=== PATIENT | male | born 1960 | race African-American/Black ===

== ENCOUNTER 2021-11-05 22:04 | Inpatient (IN) | payer OTHER, SELFPAY ==
--- NOTE | ~2021-11-05 | CT_ITS ---
EXAMINATION: CT HEAD WITHOUT CONTRAST CLINICAL INFORMATION: Purulent right ear. Pain. Question bone involvement. COMPARISON: None TECHNIQUE: Contiguous axial imaging was performed from the skull base to vertex without intravenous administration of contrast. This CT examination was performed using dose optimization techniques as appropriate, variously including the following: *Automated exposure control *Adjustment of mA and/or kV according to patient size (this includes techniques or standardized protocols for targeted exams where dose is matched to indication/reason for exam; i.e. extremities or head) *Use of iterative reconstruction technique DLP: 751 mGy-cm FINDINGS: There is no evidence of acute intracranial hemorrhage or territorial infarction. No abnormal mass effect or midline shift is seen. [place] to white matter differentiation is well preserved. No extra-axial fluid collections are identified. The ventricles are normal in size. There is no abnormal attenuation within the brain parenchyma. There is skin thickening and subcutaneous edema involving the right auricle, with mild surrounding fat stranding. No drainable collection. Mastoid air cells are clear. No cortical destruction to suggest osteomyelitis. No evidence of mastoiditis. Middle ear cavities are clear. Cerumen present within the external auditory canal on the right. Mild bilateral maxillary sinus mucosal thickening. Remaining paranasal sinuses are clear. Orbits and globes unremarkable. CT/CT head/brain wo con IMPRESSION: * No acute intracranial pathology. * Skin thickening and inflammation of the right auricle and external auditory canal. * No evidence of mastoiditis or osteomyelitis. * No drainable collection.
--- NOTE | ~2021-11-05 | XR_ITS ---
EXAMINATION: XR CHEST CLINICAL INFORMATION: Shortness of breath COMPARISON: None TECHNIQUE: Frontal view of the chest was obtained. FINDINGS: Findings suggest some patchy airspace disease in the right mid to lower lung zone. Subtle infiltrate here would need to be considered. Left lung is grossly clear. The cardiac silhouette is within normal limits. The hilar structures are mildly prominent. Indistinct. This may indicate central airways disease. XR/XR chest 1V IMPRESSION: Vague opacities in the right mid to lower lung zone. Infiltrates need to be considered here. The hilar structures are indistinct. The right hilum appears prominent. This may be sequela central airways disease. Adenopathy cannot be excluded which may be reactive. I would in the least recommend follow-up study short interval PA and lateral films in 4-6 weeks for continued evaluation to assess for resolution and establish this patient's baseline
[2021-11-05 22:14] LABS: Glucose, Whole Blood 319 mg/dL (60-115)
[2021-11-05 22:28] VITALS: BP 108/67; PULSE 90; RESP 19; TEMP 36.9; O2SAT 98; BMI 25.7
--- NOTE | 2021-11-05 22:34 | ECG_ITS ---
Test Reason : SOB Blood Pressure : / mmHG Vent. Rate : 084 BPM Atrial Rate : 084 BPM P-R Int : 160 ms QRS Dur : 076 ms QT Int : 394 ms P-R-T Axes : 080 -68 -02 degrees QTc Int : 465 ms Normal sinus rhythm with sinus arrhythmia Left axis deviation Nonspecific T wave abnormality Prolonged QT Abnormal ECG No previous ECGs available Referred By: Daxa Hendrix Electronically Signed By:FABRICIO VIERA MD
--- NOTE | 2021-11-05 22:35 | ED_ITS ---
HPI - General Adult General Chief complaint: General Medical Stated complaint: hyperglycemia Time Seen by Provider: 11/05/21 22:09 Source: patient Mode of arrival: EMS History of Present Illness HPI narrative: 61-year-old male with history of CHF, diabetes who is brought in for elevated glucose levels from [facility]. As per EMS patient reportedly has not had insulin for 3 days due to insurance issues. On speaking with the patient he denies any fevers, chills and denies any difficulty with breathing, new cough/sore throat and denies any nausea, vomiting, abdominal pain. Related Data Home Medications Medication Instructions Recorded Confirmed acetaminophen 325 mg tablet 2 tab PO TID PRN 11/06/21 11/06/21 atorvastatin 40 mg tablet 1 tab PO QAM 11/06/21 11/06/21 furosemide 40 mg tablet 1 tab PO BID 11/06/21 11/06/21 haloperidol 10 mg tablet 1 tab PO BID 11/06/21 11/06/21 metformin 500 mg tablet 1 tab PO BID 11/06/21 11/06/21 pantoprazole 40 mg tablet,delayed 1 tab PO DAILY 11/06/21 11/06/21 release sitagliptin 100 mg tablet (Januvia) 1 tab PO DAILY 11/06/21 11/06/21 Allergies Allergy/AdvReac Type Severity Reaction Status Date / Time No Known Allergies Allergy Verified 11/05/21 22:25 Review of Systems Review of Systems: Pertinent positives and negatives as stated in HPI 10 point review of systems is otherwise negative. PMFSH Past Medical History Source: nursing notes reviewed Medical History Diabetes Social History Social History Advance Directives: No Physical Exam ED Vital Signs: Vital Signs - 24 hr 11/05/21 22:28 Temperature 98.5 F Pulse Rate 90 Respiratory Rate 19 Blood Pressure 108/67 Pulse Oximetry 98 BMI result Body Mass Index 25.7 VITAL SIGNS: Reviewed. GENERAL: Well developed, well nourished, in no acute distress. HEAD: Normocephalic/atraumatic EYES: PERRLA, EOMI EARS: LEFT Ext canals without abnormality but right external ear with significant purulence drainage from tragus and wrapping around to the pinnae and obvious involvement of the external canal with obvious edema and purulence noted within the canal, left TM non-bulging and non-erythematous, but right TM not visualized due to pain NOSE: Nares patent bilateral OROPHARYNX: no oral lesions noted, posterior pharynx clear NECK: Supple, no adenopathy LUNGS: Decreased breath sounds bilaterally, tachypnea noted, mild wheeze/rales. SpO2<98> CARDIOVASCULAR: Regular rate and rhythm without noted murmurs, no JVD or lower extremity edema. ABDOMEN: Soft, non-tender, non-distended with bowel sounds. MUSCULOSKELETAL: No tenderness, deformities, or effusions noted on gross inspection. EXTREMITIES: No cyanosis, clubbing or edema. SKIN: Inspection of the skin reveals no rashes, ulcerations, jaundice, pallor, or petechiae. NEUROLOGIC: Alert and oriented x 4. Strength and sensation to light touch were grossly intact x 4. Course Course Course Narrative: 61-year-old male with history and clinical presentation consistent with elevated glucose, otitis externa, and suspect possible CHF exacerbation versus pneumonia. Review of all investigations consistent with mild CHF exacerbation for which the patient receives 60 mg of Lasix, malignant otitis externa for which the patient received Zosyn, and community-acquired pneumonia which is also covered by same antibiotic. Patient also received 1 L of IV fluids and there is improvement of patient's glucose level without evidence of DKA or HHS. I discussed this case with the inpatient hospitalist who accepts admission. Reevaluation(s) Reevaluation #1: Patient is refusing lactic acid and blood cultures. Time: 01:57 Medical Decision Making Lab Data Result diagrams: 11/05/21 22:59 11/05/21 22:59 Labs: Lab Results 11/05/21 11/05/21 11/05/21 Range/Units 22:09 22:59 22:59 WBC 6.2 (4.8-10.8) X10*3/uL RBC 4.86 (4.60-5.80) X10*6/uL Hgb 11.6 L (14.0-18.0) g/dl Hct 40.5 L (42.0-52.0) % MCV 83.3 (80.0-98.0) fL MCH 23.9 L (27.0-33.0) pg MCHC 28.6 L (31.0-36.0) g/dl RDW 23.4 H (11.0-16.0) % Plt Count 334 (160-400) X10*3/uL MPV 9.1 L (9.4-12.4) fL Immature Gran % (Auto) 0.2 (0.0-0.4) % Neut % (Auto) 58.4 (45-73) % Lymph % (Auto) 24.4 (20-40) % [place] % (Auto) 11.1 H (2-11) % Eos % (Auto) 5.3 H (0-4) % Baso % (Auto) 0.6 (0-2) % Lymph # (Auto) 1.5 (1.2-4.9) X10*3/uL [place] # (Auto) 0.7 (0.1-1.2) X10*3/uL Eos # (Auto) 0.3 (0.0-0.4) X10*3/uL Baso # (Auto) 0.0 (0.0-0.2) X10*3/uL Abs Immat Gran (auto) 0.01 (0.00-0.03) X10*3/uL Absolute Neuts (auto) 3.7 (2.0-8.3) x10*3/uL Absolute Nucleated RBC 0.000 (0.0-0.012) X10*3/uL Nucleated RBC % (auto) 0.0 (0.0-0.2) /100WBC ESR VBG pH (7.32-7.43) VBG pCO2 mmHg VBG pO2 mmHg VBG HCO3 (22-26) mmol/L VBG O2 Saturation % VBG Base Excess mmol/L Sodium 138 (135-145) mmol/L Potassium 4.5 (3.3-5.1) mmol/L Chloride 97 (96-108) mmol/L Carbon Dioxide 32 H (22-29) mmol/L Anion Gap 14 (12-20) BUN 22 H (9-16) mg/dL Creatinine 1.55 H (0.5-1.4) mg/dL Estim Creat Clear Calc 53.5 Estimated GFR 46 POC Glucose 319 H (60-115) mg/dL Random Glucose 293 H (60-115) mg/dL Calcium 8.7 (8.4-10.2) mg/dL Total Bilirubin 0.3 (0.0-1.0) mg/dL AST 11 (5-37) U/L ALT 11 (0-40) U/L Alkaline Phosphatase 77 (39-117) U/L C-Reactive Protein 4.26 H (< or = 0.50) mg/dL B-Natriuretic Peptide (<100) pg/mL Total Protein 7.2 (6.5-8.0) g/dL Albumin 3.6 (3.5-5.0) g/dL Urine Color Urine Appearance Urine pH (5.0-8.0) Ur Specific [place] (1.005-1.025) Urine Protein (NEG-TRACE) MG/DL Urine Glucose (UA) (NEG) MG/DL Urine Ketones (NEG) MG/DL Urine Blood (NEG) Urine Nitrite (NEG) Ur Leukocyte Esterase (NEG) Acetone, Qual Negative (Negative) 11/05/21 11/05/21 11/05/21 Range/Units 22:59 22:59 23:03 WBC (4.8-10.8) X10*3/uL RBC (4.60-5.80) X10*6/uL Hgb (14.0-18.0) g/dl Hct (42.0-52.0) % MCV (80.0-98.0) fL MCH (27.0-33.0) pg MCHC (31.0-36.0) g/dl RDW (11.0-16.0) % Plt Count (160-400) X10*3/uL MPV (9.4-12.4) fL Immature Gran % (Auto) (0.0-0.4) % Neut % (Auto) (45-73) % Lymph % (Auto) (20-40) % [place] % (Auto) (2-11) % Eos % (Auto) (0-4) % Baso % (Auto) (0-2) % Lymph # (Auto) (1.2-4.9) X10*3/uL [place] # (Auto) (0.1-1.2) X10*3/uL Eos # (Auto) (0.0-0.4) X10*3/uL Baso # (Auto) (0.0-0.2) X10*3/uL Abs Immat Gran (auto) (0.00-0.03) X10*3/uL Absolute Neuts (auto) (2.0-8.3) x10*3/uL Absolute Nucleated RBC (0.0-0.012) X10*3/uL Nucleated RBC % (auto) (0.0-0.2) /100WBC ESR Cancelled VBG pH 7.52 H (7.32-7.43) VBG pCO2 40 mmHg VBG pO2 130 mmHg VBG HCO3 32 H (22-26) mmol/L VBG O2 Saturation 99.0 % VBG Base Excess 9.3 mmol/L Sodium (135-145) mmol/L Potassium (3.3-5.1) mmol/L Chloride (96-108) mmol/L Carbon Dioxide (22-29) mmol/L Anion Gap (12-20) BUN (9-16) mg/dL Creatinine (0.5-1.4) mg/dL Estim Creat Clear Calc Estimated GFR POC Glucose (60-115) mg/dL Random Glucose (60-115) mg/dL Calcium (8.4-10.2) mg/dL Total Bilirubin (0.0-1.0) mg/dL AST (5-37) U/L ALT (0-40) U/L Alkaline Phosphatase (39-117) U/L C-Reactive Protein (< or = 0.50) mg/dL B-Natriuretic Peptide 241 H (<100) pg/mL Total Protein (6.5-8.0) g/dL Albumin (3.5-5.0) g/dL Urine Color Urine Appearance Urine pH (5.0-8.0) Ur Specific [place] (1.005-1.025) Urine Protein (NEG-TRACE) MG/DL Urine Glucose (UA) (NEG) MG/DL Urine Ketones (NEG) MG/DL Urine Blood (NEG) Urine Nitrite (NEG) Ur Leukocyte Esterase (NEG) Acetone, Qual (Negative) 11/06/21 11/06/21 Range/Units 00:58 01:46 WBC (4.8-10.8) X10*3/uL RBC (4.60-5.80) X10*6/uL Hgb (14.0-18.0) g/dl Hct (42.0-52.0) % MCV (80.0-98.0) fL MCH (27.0-33.0) pg MCHC (31.0-36.0) g/dl RDW (11.0-16.0) % Plt Count (160-400) X10*3/uL MPV (9.4-12.4) fL Immature Gran % (Auto) (0.0-0.4) % Neut % (Auto) (45-73) % Lymph % (Auto) (20-40) % [place] % (Auto) (2-11) % Eos % (Auto) (0-4) % Baso % (Auto) (0-2) % Lymph # (Auto) (1.2-4.9) X10*3/uL [place] # (Auto) (0.1-1.2) X10*3/uL Eos # (Auto) (0.0-0.4) X10*3/uL Baso # (Auto) (0.0-0.2) X10*3/uL Abs Immat Gran (auto) (0.00-0.03) X10*3/uL Absolute Neuts (auto) (2.0-8.3) x10*3/uL Absolute Nucleated RBC (0.0-0.012) X10*3/uL Nucleated RBC % (auto) (0.0-0.2) /100WBC ESR VBG pH (7.32-7.43) VBG pCO2 mmHg VBG pO2 mmHg VBG HCO3 (22-26) mmol/L VBG O2 Saturation % VBG Base Excess mmol/L Sodium (135-145) mmol/L Potassium (3.3-5.1) mmol/L Chloride (96-108) mmol/L Carbon Dioxide (22-29) mmol/L Anion Gap (12-20) BUN (9-16) mg/dL Creatinine (0.5-1.4) mg/dL Estim Creat Clear Calc Estimated GFR POC Glucose 259 H (60-115) mg/dL Random Glucose (60-115) mg/dL Calcium (8.4-10.2) mg/dL Total Bilirubin (0.0-1.0) mg/dL AST (5-37) U/L ALT (0-40) U/L Alkaline Phosphatase (39-117) U/L C-Reactive Protein (< or = 0.50) mg/dL B-Natriuretic Peptide (<100) pg/mL Total Protein (6.5-8.0) g/dL Albumin (3.5-5.0) g/dL Urine Color STRAW Urine Appearance CLEAR Urine pH 7.0 (5.0-8.0) Ur Specific [place] 1.010 (1.005-1.025) Urine Protein NEG (NEG-TRACE) MG/DL Urine Glucose (UA) 250 H (NEG) MG/DL Urine Ketones NEG (NEG) MG/DL Urine Blood NEG (NEG) Urine Nitrite NEG (NEG) Ur Leukocyte Esterase NEG (NEG) Acetone, Qual (Negative) Critical Care Time Critical Care Time Critical Care Time: Yes Total Critical Care Time: 30 Attestation: I personally attest to this time spent taking care of the patient. Discharge Plan Discharge Clinical Impression: CHF exacerbation, Malignant otitis externa, Pneumonia Patient Disposition: Admitted As Inpatient
[2021-11-05 23:05] LABS: MANUAL DIFF FLAG NO
[2021-11-05 23:07] LABS: Venous Blood Gas Refer to POC result
[2021-11-05 23:12] LABS: VBG Base Excess 9.3 mmol/L; VBG HCO3 32 mmol/L (22-26); VBG pCO2 40 mmHg; VBG pH 7.52 (7.32-7.43); VBG pO2 130 mmHg
[2021-11-05 23:13] LABS: Basophils Percent Auto 0.6 % (0-2); Eosinophils Absolute Auto 0.3 X10*3/uL (0.0-0.4); Eosinophils Percent Auto 5.3 % (0-4); Hematocrit 40.5 % (42.0-52.0); Hemoglobin 11.6 g/dl (14.0-18.0); Imm Gran Abs Auto 0.01 X10*3/uL (0.00-0.03); Imm Gran Pct Auto 0.2 % (0.0-0.4); Lymphocytes Absolute Auto 1.5 X10*3/uL (1.2-4.9); Lymphocytes Percent Auto 24.4 % (20-40); Mean Corpuscular HGB Conc 28.6 g/dl (31.0-36.0); Mean Corpuscular Hemoglobin 23.9 pg (27.0-33.0); Mean Corpuscular Volume 83.3 fL (80.0-98.0); Mean Platelet Volume 9.1 fL (9.4-12.4); Monocytes Absolute Auto 0.7 X10*3/uL (0.1-1.2); Monocytes Percent Auto 11.1 % (2-11); Neutrophils Absolute Auto 3.7 x10*3/uL (2.0-8.3); Neutrophils Percent Auto 58.4 % (45-73); Platelet Count 334 X10*3/uL (160-400); Red Blood Count 4.86 X10*6/uL (4.60-5.80); Red Cell Distribution Width 23.4 % (11.0-16.0); White Blood Count 6.2 X10*3/uL (4.8-10.8)
[2021-11-05 23:19] LABS: Acetone, serum QL Negative (Negative)
[2021-11-05 23:21] LABS: Alanine Aminotransferase 11 U/L (0-40); Albumin Level 3.6 g/dL (3.5-5.0); Alkaline Phosphatase 77 U/L (39-117); Anion Gap 14 (12-20); Aspartate Amino Transferase 11 U/L (5-37); Bilirubin Total 0.3 mg/dL (0.0-1.0); Blood Urea Nitrogen 22 mg/dL (9-16); Calcium 8.7 mg/dL (8.4-10.2); Carbon Dioxide 32 mmol/L (22-29); Chloride 97 mmol/L (96-108); Creatinine Clr Calc Pharmacy 53.5; Estimated Glomerular Filt Rate 46; Glucose Random 293 mg/dL (60-115); Potassium 4.5 mmol/L (3.3-5.1); Sodium 138 mmol/L (135-145); Total Protein 7.2 g/dL (6.5-8.0)
--- NOTE | 2021-11-05 23:23 | PC.NURSE ---
patient very paraonid about care in hospital. RN needs to negotiate with patient to perform every task. patient refuses to keep O2 on and school lunch monitor on. patient noted to be have dyspnea at rest, increases when aggitated
[2021-11-05 23:26] LABS: B Type Natriuretic Peptide 241 pg/mL (<100)
--- NOTE | 2021-11-06 00:02 | PC.NURSE ---
pt refused ekg at 2340, Dr Simeon garcia and RN as well
[2021-11-06] MEDS: 0.9 % Sodium Chloride 1,000 ML 999 ML IV (00:15)
[2021-11-06] MEDS: Furosemide 40 MG/4 ML VIAL IVPUSH (00:15)
[2021-11-06 01:06] LABS: Appearance Urine CLEAR; Color Urine STRAW; Glucose Urine UA 250 MG/DL (NEG); Leukocyte Esterase Urine NEG (NEG); Nitrite Urine NEG (NEG); Urine Blood NEG (NEG); Urine Ketones NEG (NEG); Urine Protein NEG (NEG-TRACE)
[2021-11-06 01:31] LABS: C Reactive Protein 4.26 mg/dL (< or = 0.50)
--- NOTE | 2021-11-06 01:42 | PC.NURSE ---
Pt refusing to allow us to draw blood cultures.
[2021-11-06] MEDS: Piperacillin Sodium/Tazobactam 4.5 GM in 0.9 % Sodium Chloride 100 ML IV (01:50)
--- NOTE | 2021-11-06 01:57 | PC.NURSE ---
Care and report at 23:00. Pt is difficult to work with. Pt initially refuses almost all procedures. Pt ambulatory to bathroom. Pt did have 2 sandwiches and small cans of soda around 1AM.
[2021-11-06 01:58] LABS: Glucose, Whole Blood 259 mg/dL (60-115)
[2021-11-06 02:34] LABS: COVID-19 Test Negative (Negative)
[2021-11-06 04:22] VITALS: BP 110/73; PULSE 101; RESP 16; TEMP 36.9; O2SAT 90
--- NOTE | 2021-11-06 04:57 | PC.NURSE ---
Pt yelling at hospitalist to get out of my room, I know you from [facility], why are you following me here. Pt under the impression that he is going home, only here for his elevated blood glucose level. Hospitalist made 2-3 attempts to encourage patient to stay, especially with the infection to his right ear.
--- NOTE | 2021-11-06 05:24 | PM.IMHP ---
History of Present Illness Date of Service: 11/06/21 Chief Complaint: Hyperglycemia 61-year-old male with a past medical history of hyperlipidemia, diabetes, CHF, schizophrenia present from the [facility] with a chief complaint of high blood sugars. Patient refused to talk to me, most of the history obtained from the records and staff. Reportedly patient was sent from the [facility] after he was noted to have high blood sugar levels. Patient denied any chest pain palpitations lightheadedness dizziness fever chills cough, urinary symptoms to the ER staff. Reported he has tenderness in his right ear; Review of all other systems is limited ER team noted that patient had right year findings consistent with otitis externa, tender on palpation, noted pus-like discharge; CT head was done which showed no intracranial process, no evidence of mastoiditis. Patient was given Zosyn. On presentation noted to have blood glucose levels and 300s; also initially concern for CHF-patient was given Lasix. Admitted for further management [facility] Medical History (Updated 01/12/22 @ 19:19 by Kumar Gomez MD) Acute dyspnea Acute respiratory failure Asthma exacerbation CHF (congestive heart failure) Diabetes Hypoxia Malignant otitis externa Pneumonia Social History Household Members: Other Housing: Other Housing Other:: penitentiary Do you presently have visiting nurse or other home services: No Patient Tobacco Use Status: Former Tobacco user Quit Date: 12/07/2021 Tobacco use type: Cigarette Smoked in Last 30 Days: No Patient Interested in Nicotine Replacement: No Patient Given Instructions on How to Stop Smoking: No Second Hand Smoke Exposure: No Use of substances other than those prescribed or required for medical reasons: No Substance Use Type: Former Substance User Currently Displaying Signs/Symptoms of Drug Intoxication Withdrawal: No Have you been hit, kicked, punched, or otherwise hurt by someone within the past year? If so, by whom?: No Do you feel safe in your current relationship?: No Current Relationship Is there a partner from a previous relationship who is making you feel unsafe now?: No Are you made to feel afraid or neglected: No Advance Directives: No Advance Directives Information Provided: No Do you have thoughts of harming others: None Do you have a plan to hurt others: No Plan Recently lost weight without trying: No How much weight loss: Not applicable Eating poorly because of decreased appetite: No Nutrition screen score: 0 Nutrition Risks: No Nutritional Risk Poor oral hygiene: No service: No Current occupational status: disabled Meds Allergies Allergy/AdvReac Type Severity Reaction Status Date / Time No Known Allergies Allergy Verified 11/05/21 22:25 Active Medications: Current Medications Pharmacy Consult (Consult Rx Perform Med Rec) 1 each MISCELLANE ONCE PRN PRN Reason: Consult order Home Medications Medication Instructions Recorded Confirmed Last Taken Type atorvastatin 40 mg tablet 1 tab PO DAILY 11/06/21 01/09/22 01/09/22 History haloperidol 10 mg tablet 1 tab PO BID 11/06/21 01/09/22 01/09/22 History pantoprazole 40 mg tablet,delayed 1 tab PO DAILY 11/06/21 01/09/22 01/09/22 History release sitagliptin 100 mg tablet (Januvia) 1 tab PO DAILY 11/06/21 01/09/22 01/09/22 History divalproex 250 mg tablet,extended 250 mg PO DAILY@1700 12/12/21 01/09/22 01/08/22 History release 24 hr divalproex 250 mg tablet,extended 500 mg PO DAILY 12/12/21 01/09/22 01/09/22 History release 24 hr ferrous sulfate 325 mg (65 mg 1 tab PO BID 12/12/21 01/09/22 01/09/22 History iron) tablet,delayed release fluticasone propionate 50 1 spray intranasal BID 12/12/21 01/09/22 01/09/22 History mcg/actuation nasal spray,suspension haloperidol 5 mg tablet 1 tab PO DAILY@1700 12/12/21 01/09/22 01/08/22 History insulin aspart U-100 100 unit/mL 0 sliding scale dose subcut BID 12/12/21 01/09/22 01/09/22 History (3 mL) subcutaneous pen (Novolog hyperglycemia Flexpen U-100 Insulin aspart) lorazepam 1 mg tablet 1 tab PO DAILY PRN Anxiety 12/12/21 01/09/22 01/08/22 History metformin 500 mg tablet 1 tab PO BIDWM 01/09/22 01/09/22 01/09/22 History Physical Exam Vital Signs and Narrative: Vital Signs: Last Vital Signs Temp 98.5 F 11/06/21 04:22 Pulse 101 H 11/06/21 04:22 Resp 16 11/06/21 04:22 BP 110/73 11/06/21 04:22 Pulse Ox 90 L 11/06/21 04:22 Oxygen Flow Rate 2 11/05/21 22:28 BMI result Body Mass Index 25.7 Patient refused examination Gen: Appears be in no acute distress HEENT: NCAT, Moist mucosa. External ear noted to have serosanguineous discharge. Pulmonary: Breathing comfortably on room air Neuro: Alert and awake. Moves all extremities equally Results Labs CBC and Chem 7: 11/07/21 14:10 11/07/21 14:10 Labs: Laboratory Results - last 24 hr 11/05/21 11/05/21 11/05/21 22:09 22:59 22:59 MCV 83.3 MCH 23.9 L MCHC 28.6 L RDW 23.4 H Plt Count 334 MPV 9.1 L Immature Gran % (Auto) 0.2 Neut % (Auto) 58.4 Lymph % (Auto) 24.4 [place] % (Auto) 11.1 H Eos % (Auto) 5.3 H Baso % (Auto) 0.6 Lymph # (Auto) 1.5 [place] # (Auto) 0.7 Eos # (Auto) 0.3 Baso # (Auto) 0.0 Abs Immat Gran (auto) 0.01 Absolute Neuts (auto) 3.7 Absolute Nucleated RBC 0.000 Nucleated RBC % (auto) 0.0 ESR VBG pH VBG pCO2 VBG pO2 VBG HCO3 VBG O2 Saturation VBG Base Excess Anion Gap 14 Estim Creat Clear Calc 53.5 Estimated GFR 46 POC Glucose 319 H Random Glucose 293 H Calcium 8.7 Total Bilirubin 0.3 AST 11 ALT 11 Alkaline Phosphatase 77 C-Reactive Protein 4.26 H B-Natriuretic Peptide Total Protein 7.2 Albumin 3.6 Urine Color Urine Appearance Urine pH Ur Specific [place] Urine Protein Urine Glucose (UA) Urine Ketones Urine Blood Urine Nitrite Ur Leukocyte Esterase Acetone, Qual Negative COVID-19 (TOMER) COVID-19 Clin Com 11/05/21 11/05/21 11/05/21 22:59 22:59 23:03 MCV MCH MCHC RDW Plt Count MPV Immature Gran % (Auto) Neut % (Auto) Lymph % (Auto) [place] % (Auto) Eos % (Auto) Baso % (Auto) Lymph # (Auto) [place] # (Auto) Eos # (Auto) Baso # (Auto) Abs Immat Gran (auto) Absolute Neuts (auto) Absolute Nucleated RBC Nucleated RBC % (auto) ESR Cancelled VBG pH 7.52 H VBG pCO2 40 VBG pO2 130 VBG HCO3 32 H VBG O2 Saturation 99.0 VBG Base Excess 9.3 Anion Gap Estim Creat Clear Calc Estimated GFR POC Glucose Random Glucose Calcium Total Bilirubin AST ALT Alkaline Phosphatase C-Reactive Protein B-Natriuretic Peptide 241 H Total Protein Albumin Urine Color Urine Appearance Urine pH Ur Specific [place] Urine Protein Urine Glucose (UA) Urine Ketones Urine Blood Urine Nitrite Ur Leukocyte Esterase Acetone, Qual COVID-19 (TOMER) COVID-19 [employer] Com 11/06/21 11/06/21 11/06/21 00:58 01:46 02:13 MCV MCH MCHC RDW Plt Count MPV Immature Gran % (Auto) Neut % (Auto) Lymph % (Auto) [place] % (Auto) Eos % (Auto) Baso % (Auto) Lymph # (Auto) [place] # (Auto) Eos # (Auto) Baso # (Auto) Abs Immat Gran (auto) Absolute Neuts (auto) Absolute Nucleated RBC Nucleated RBC % (auto) ESR VBG pH VBG pCO2 VBG pO2 VBG HCO3 VBG O2 Saturation VBG Base Excess Anion Gap Estim Creat Clear Calc Estimated GFR POC Glucose 259 H Random Glucose Calcium Total Bilirubin AST ALT Alkaline Phosphatase C-Reactive Protein B-Natriuretic Peptide Total Protein Albumin Urine Color STRAW Urine Appearance CLEAR Urine pH 7.0 Ur Specific [place] 1.010 Urine Protein NEG Urine Glucose (UA) 250 H Urine Ketones NEG Urine Blood NEG Urine Nitrite NEG Ur Leukocyte Esterase NEG Acetone, Qual COVID-19 (TOMER) Negative COVID-19 Clin Com See Note Imaging Radiologist's Impressions: Impressions Chest X-Ray 11/05/21 22:39 IMPRESSION: Vague opacities in the right mid to lower lung zone. Infiltrates need to be considered here. The hilar structures are indistinct. The right hilum appears prominent. This may be sequela central airways disease. Adenopathy cannot be excluded which may be reactive. I would in the least recommend follow-up study short interval PA and lateral films in 4-6 weeks for continued evaluation to assess for resolution and establish this patient's baseline Head CT 11/06/21 00:15 IMPRESSION: * No acute intracranial pathology. * Skin thickening and inflammation of the right auricle and external auditory canal. * No evidence of mastoiditis or osteomyelitis. * No drainable collection. Assessment and Plan (1) Otitis externa: Status: Acute Plan 61-year-old male with a past medical history of hyperlipidemia, diabetes, CHF, schizophrenia present from the [facility] with a chief complaint of high blood sugars. Noted to have following conditions Otitis externa: Continue Zosyn. Id consult for further recommendations. CT head showed no evidence of mastoiditis. PNA: Chest x-ray showed right middle lobe and lower lobe infiltrates. Patient on antibiotics. Diabetes/hyperglycemia: Will keep the patient on insulin sliding scale. Hold home oral hypoglycemic agents for now. History of CHF: Stable. Continue home Lasix. Renal insufficiency: Patient's creatinine on presentation was 1.5. Unknown baseline. Monitor renal function Decubitous Ulcer: present on admission. Pressure ulcer care per RN. DVT prophylaxis: Lovenox Code status: Full code Spoke to Kimi property maintenance supervisor at [facility]- [phone]. Kimi unsure if pt has guardian, mentioned will call back with more information. Quality Stroke Does the patient have a stroke diagnosis?: No VTE Prior VTE?: No VTE Risk Level:: Medical - moderate - high VTE Device Contraindication: Treatment Not Indicated VTE Drug Contraindication: N/A - Med Ordered
[2021-11-06 07:24] LABS: Glucose, Whole Blood 201 mg/dL (60-115)
[2021-11-06] MEDS: Insulin Lispro 100 UNIT/ML 3 ML VIAL SUBCUT ×4 (07:26→21:54)
[2021-11-06] MEDS: Enoxaparin Sodium 40 MG/0.4 ML SYRINGE SUBCUT (07:27)
[2021-11-06] MEDS: Omeprazole 40 MG CAPSULE.DR PO (07:27)
[2021-11-06] MEDS: 0.9 % Sodium Chloride Flush 3 ML SYRINGE IVFLUSH ×2 (07:27→18:41)
--- NOTE | 2021-11-06 07:30 | PC.NURSE ---
pt's right ear very irritated/excoriated/swollen in appearance, pt's entire coccyx area also very excoriated with some few patches of open areas pt denies pain at this time, pt keeps taking his oxygen off
[2021-11-06 07:34] VITALS: BP 102/60; PULSE 95; RESP 18; O2SAT 90
--- NOTE | 2021-11-06 09:10 | PC.NURSE ---
spoke to sara jameson the programming intern of [facility] in [place] pt only at the facility for 4 days so not much information except that there is a court appointed guardian by the name of Yajaira lynch-Marli number [phone]
[2021-11-06] MEDS: Piperacillin Sodium/Tazobactam 3.375 GM in 0.9 % Sodium Chloride 50 ML IV ×3 (10:01→23:41)
[2021-11-06] MEDS: HaloperidoL 5 MG TABLET 10 MG PO ×2 (10:04→23:40)
--- NOTE | 2021-11-06 11:59 | HO.PM.IMPN ---
Subjective Subjective Date of Service: 11/07/21 Interval History: patient is being followed for multiple issues including otitis externa, acute ulcer, acute kidney injury, elevated BNP, hyperglycemia, noted to have mild hypoxia patient offers no acute complaints at present wants to return home in [place], denies earache, denies fever, refusing to wear oxygen. Review of Systems General no headache, no dizziness no fever chills. CVS no chest pain, no palpitation. Respiratory no cough, no sob. Gastrointestinal no nausea, no vomiting, no abdominal pain Review of Systems: Yes all other systems are reviewed and are negative Physical Exam Vital Signs: Vital Signs: Last Vital Signs Temp 98.5 F 11/06/21 04: Pulse 95 11/06/21 07:34 Resp 18 11/06/21 07:34 BP 102/60 11/06/21 07:34 Pulse Ox 90 L 11/06/21 07:34 Oxygen Flow Rate 2 11/05/21 22:28 BMI result Body Mass Index 25.7 Const: Other: General awake alert, no acute distress. right ear dry scaly skin external ear with skin peeling and thick white debris in external canal Neck no JVD. CVS regular rate rhythm, Respiratory lungs coarse breath sound,no respiratory distress Gastrointestinal abdomen soft, nontender, bowel sounds audible, no guarding , no rigidity. Extremities no edema. Neuro nonfocal, moving all 4 extremity speech clear. Skin dry Stage 2 coccyx ulcer Objective Data Active Medications Acetaminophen (Acetaminophen 325 Mg Tablet) 650 mg PO Q6H PRN PRN Reason: Pain, Mild (Pain Scale 1-3) Atorvastatin Calcium (Atorvastatin Calcium 40 Mg Tablet) 40 mg PO BEDTIME [facility] Dextrose (Dextrose 50 % 25 Gm/50 Ml Vial) 25 gm IVPUSH Q15M PRN; Protocol PRN Reason: per Hypoglycemia Standing Ord. Enoxaparin Sodium (Enoxaparin Sodium 40 Mg/0.4 Ml Syringe) 40 mg SUBCUT Q24H [facility] Last Admin: 11/06/21 07:27 Dose: 40 mg Documented by: AILYN Glucose (Glucose Gel 15 Gm Gel..Gram.) 15 gm PO Q15M PRN; Protocol PRN Reason: per Hypoglycemia Standing Ord. Haloperidol (Haloperidol 5 Mg Tablet) 10 mg PO BID [facility] Last Admin: 11/06/21 10:04 Dose: 10 mg Documented by: AILYN Piperacillin Sod/Tazobactam (Sod 3.375 gm/ Sodium Chloride) 50 mls @ 100 mls/hr IV Q6H [facility] Last Infusion: 11/06/21 10:35 Dose: 0 mls/hr Documented by: AILYN Insulin Human Lispro (Insulin Lispro 100 Unit/Ml 3 Ml Vial) 0 unit SUBCUT QIDACHS [facility]; Protocol Last Admin: 11/06/21 07:26 Dose: 4 unit Documented by: AILYN Melatonin (Melatonin 3 Mg Tablet) 6 mg PO BEDTIME PRN PRN Reason: Insomnia Omeprazole (Omeprazole 40 Mg Capsule.Dr) 40 mg PO DAILY@0630 [facility] Last Admin: 11/06/21 07:27 Dose: 40 mg Documented by: AILYN Oxycodone HCl (Oxycodone Hcl Immed Release 5 Mg Tablet) 5 mg PO Q6H PRN PRN Reason: Pain, Severe (Pain Scale 7-10) Pharmacy Consult (Consult Rx Perform Med Rec) 1 each MISCELLANE ONCE PRN PRN Reason: Consult order Senna (Sennosides 8.6 Mg Tablet) 17.2 mg PO BEDTIME PRN PRN Reason: Constipation Sodium Chloride (0.9 % Sodium Chloride Flush 3 Ml Syringe) 3 ml IVFLUSH QSHIFT [facility] Last Admin: 11/06/21 07:27 Dose: 3 ml Documented by: AILYN Labs CBC & Chem 7: 11/07/21 14:10 11/07/21 14:10 Labs: Laboratory Results - last 24 hr 11/05/21 11/05/21 11/05/21 22:09 22:59 22:59 MCV 83.3 MCH 23.9 L MCHC 28.6 L RDW 23.4 H Plt Count 334 MPV 9.1 L Immature Gran % (Auto) 0.2 Neut % (Auto) 58.4 Lymph % (Auto) 24.4 [place] % (Auto) 11.1 H Eos % (Auto) 5.3 H Baso % (Auto) 0.6 Lymph # (Auto) 1.5 [place] # (Auto) 0.7 Eos # (Auto) 0.3 Baso # (Auto) 0.0 Abs Immat Gran (auto) 0.01 Absolute Neuts (auto) 3.7 Absolute Nucleated RBC 0.000 Nucleated RBC % (auto) 0.0 ESR VBG pH VBG pCO2 VBG pO2 VBG HCO3 VBG O2 Saturation VBG Base Excess Anion Gap 14 Estim Creat Clear Calc 53.5 Estimated GFR 46 POC Glucose 319 H Random Glucose 293 H Calcium 8.7 Total Bilirubin 0.3 AST 11 ALT 11 Alkaline Phosphatase 77 C-Reactive Protein 4.26 H B-Natriuretic Peptide Total Protein 7.2 Albumin 3.6 Urine Color Urine Appearance Urine pH Ur Specific [place] Urine Protein Urine Glucose (UA) Urine Ketones Urine Blood Urine Nitrite Ur Leukocyte Esterase Acetone, Qual Negative COVID-19 (TOMER) COVID-19 Tumblr 11/05/21 11/05/21 11/05/21 22:59 22:59 23:03 MCV MCH MCHC RDW Plt Count MPV Immature Gran % (Auto) Neut % (Auto) Lymph % (Auto) [place] % (Auto) Eos % (Auto) Baso % (Auto) Lymph # (Auto) [place] # (Auto) Eos # (Auto) Baso # (Auto) Abs Immat Gran (auto) Absolute Neuts (auto) Absolute Nucleated RBC Nucleated RBC % (auto) ESR Cancelled VBG pH 7.52 H VBG pCO2 40 VBG pO2 130 VBG HCO3 32 H VBG O2 Saturation 99.0 VBG Base Excess 9.3 Anion Gap Estim Creat Clear Calc Estimated GFR POC Glucose Random Glucose Calcium Total Bilirubin AST ALT Alkaline Phosphatase C-Reactive Protein B-Natriuretic Peptide 241 H Total Protein Albumin Urine Color Urine Appearance Urine pH Ur Specific [place] Urine Protein Urine Glucose (UA) Urine Ketones Urine Blood Urine Nitrite Ur Leukocyte Esterase Acetone, Qual COVID-19 (TOMER) COVID-19 Tumblr 11/06/21 11/06/21 11/06/21 00:58 01:46 02:13 MCV MCH MCHC RDW Plt Count MPV Immature Gran % (Auto) Neut % (Auto) Lymph % (Auto) [place] % (Auto) Eos % (Auto) Baso % (Auto) Lymph # (Auto) [place] # (Auto) Eos # (Auto) Baso # (Auto) Abs Immat Gran (auto) Absolute Neuts (auto) Absolute Nucleated RBC Nucleated RBC % (auto) ESR VBG pH VBG pCO2 VBG pO2 VBG HCO3 VBG O2 Saturation VBG Base Excess Anion Gap Estim Creat Clear Calc Estimated GFR POC Glucose 259 H Random Glucose Calcium Total Bilirubin AST ALT Alkaline Phosphatase C-Reactive Protein B-Natriuretic Peptide Total Protein Albumin Urine Color STRAW Urine Appearance CLEAR Urine pH 7.0 Ur Specific [place] 1.010 Urine Protein NEG Urine Glucose (UA) 250 H Urine Ketones NEG Urine Blood NEG Urine Nitrite NEG Ur Leukocyte Esterase NEG Acetone, Qual COVID-19 (TOMER) Negative COVID-19 Clin Com See Note 11/06/21 07:20 MCV MCH MCHC RDW Plt Count MPV Immature Gran % (Auto) Neut % (Auto) Lymph % (Auto) [place] % (Auto) Eos % (Auto) Baso % (Auto) Lymph # (Auto) [place] # (Auto) Eos # (Auto) Baso # (Auto) Abs Immat Gran (auto) Absolute Neuts (auto) Absolute Nucleated RBC Nucleated RBC % (auto) ESR VBG pH VBG pCO2 VBG pO2 VBG HCO3 VBG O2 Saturation VBG Base Excess Anion Gap Estim Creat Clear Calc Estimated GFR POC Glucose 201 H Random Glucose Calcium Total Bilirubin AST ALT Alkaline Phosphatase C-Reactive Protein B-Natriuretic Peptide Total Protein Albumin Urine Color Urine Appearance Urine pH Ur Specific [place] Urine Protein Urine Glucose (UA) Urine Ketones Urine Blood Urine Nitrite Ur Leukocyte Esterase Acetone, Qual COVID-19 ([facility]OMER) COVID-19 Clin Com Assessment and Plan (1) Malignant otitis externa: Status: Acute (2) Pneumonia: Status: Acute (3) Acute kidney injury: Status: Acute Plan 61-year-old male with a past medical history of hyperlipidemia, diabetes, CHF, schizophrenia present from the [facility] with a chief complaint of high blood sugars.? Noted to have following conditions Review of all investigations consistent with mild CHF exacerbation for which the patient receives 60 mg of Lasix, malignant otitis externa for which the patient received Zosyn, and community-acquired pneumonia which is also covered by same antibiotic.? Patient also received 1 L of IV fluids and there is improvement of patient's glucose level without evidence of DKA or HHS. acute right Otitis externa possible due to diabetes: head CT showed no evidence of mastoiditis , no fevers, no leukocytosis, mild tachycardia resolved on IV Zosyn day 1, will place on ear drops await ID input.? mild acute hypoxic respiratory failure likely due to pneumonia continue O2 support PNA:? Chest x-ray showed right middle lobe and lower lobe infiltrates, patient denies shortness of breath or cough. follow clinical course?, normal WBC no fevers. Diabetes/hyperglycemia:? continue insulin sliding scale, patient on Januvia and metformin at home, will resume Januvia.? History of diastolic CHF and severe pulmonary hypertension reviewed record from [facility]? patient denies shortness of breath, BNP 241, chest x-ray showed no edema, patient received 1 dose of IV Lasix 60 mg in ED. takes Lasix 40 mg b.i.d. at home will hold today's dose and follow clinical course Acute kidney injury Patient's creatinine on presentation was 1.5.? receive IV Lasix in the emergency room will hold further diuretics and monitor BMP Decubitous Ulcer/ stage II coccyx ulcer: high-protein diet, frequent position change and Pressure ulcer care per RN. Dyslipidemia continue statin Schizophrenia continue Haldol, patient chronically refuses interventions including blood draws need coaxing to take by mouth medication GERD continue PPI history of cocaine/polysubstance abuse DVT prophylaxis:? 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 patient has a guardian Yajaira (court appointed) [phone]. patient will need to inpatient hospitalization due to pneumonia/ acute renal injury requiring IV antibiotic and IV fluids. Quality Stroke Does the patient have a stroke diagnosis?: No VTE Prior VTE?: No VTE Risk Level:: Medical - moderate - high VTE Device Contraindication: Treatment Not Indicated VTE Drug Contraindication: N/A - Med Ordered
[2021-11-06 13:18] LABS: Glucose, Whole Blood 175 mg/dL (60-115)
[2021-11-06] MEDS: NeoMYCIN/Polymyxin/HC Otic Sus 10 ML DRPBTL 3 DROP EAR-RIGHT ×3 (13:32→23:41)
[2021-11-06] MEDS: SITagliptin Phosphate 100 MG TABLET PO (13:48)
--- NOTE | 2021-11-06 14:20 | MHC.CM.PN ---
met with pt in ed [facility] [phone] who reports that pt was just admitted to [facility] on thrus november 02 from [facility] and came to them with open bed sores pt active with kinga bey ..the correct address of thr retirement is [address] [facility] pt has been vax x 2 with [facility] pt has a guardian aleisha childers eric [phone] raegan asked to fax paperwork to us pts pcp is fitz earl [facility] will transport pt when dcd
[2021-11-06 14:54] VITALS: BP 98/55; PULSE 96; O2SAT 96
--- NOTE | 2021-11-06 15:53 | W.PM.IDCN ---
History of Present Illness Data of Consult Service Date: 11/06/21 Requesting physician: Christine Garza Primary Care Provider: Unknown Physician HPI Reason for consult: right ear redness,pneumonia He presents with a day of right ear redness and blood sugar elevation. He has no fever or chills previously He doesnt give good history. He comes from [facility]. Review of Systems Review of Systems: Yes all other systems are reviewed and are negative PMF Past Medical History Medical History Diabetes Family History Family history: reviewed and not pertinent Social History Social History Advance Directives: No service: No Meds Allergies Allergy/AdvReac Type Severity Reaction Status Date / Time No Known Allergies Allergy Verified 11/05/21 22:25 Active Medications: Current Medications Acetaminophen (Acetaminophen 325 Mg Tablet) 650 mg PO Q6H PRN PRN Reason: Pain, Mild (Pain Scale 1-3) Atorvastatin Calcium (Atorvastatin Calcium 40 Mg Tablet) 40 mg PO BEDTIME [facility] Dextrose (Dextrose 50 % 25 Gm/50 Ml Vial) 25 gm IVPUSH Q15M PRN; Protocol PRN Reason: per Hypoglycemia Standing Ord. Dextrose (Dextrose 50 % 25 Gm/50 Ml Syringe) 25 gm IVPUSH Q15M PRN; Protocol PRN Reason: per Hypoglycemia Standing Ord. Enoxaparin Sodium (Enoxaparin Sodium 40 Mg/0.4 Ml Syringe) 40 mg SUBCUT Q24H [facility] Last Admin: 11/06/21 07:27 Dose: 40 mg Documented by: Glucose (Glucose Gel 15 Gm Gel..Gram.) 15 gm PO Q15M PRN; Protocol PRN Reason: per Hypoglycemia Standing Ord. Glucose (Glucose Gel 15 Gm Gel..Gram.) 15 gm PO Q15M PRN; Protocol PRN Reason: per Hypoglycemia Standing Ord. Haloperidol (Haloperidol 5 Mg Tablet) 10 mg PO BID [facility] Last Admin: 11/06/21 10:04 Dose: 10 mg Documented by: Piperacillin Sod/Tazobactam (Sod 3.375 gm/ Sodium Chloride) 50 mls @ 100 mls/hr IV Q6H [facility] Last Admin: 11/06/21 14:47 Dose: 100 mls/hr Documented by: Insulin Human Lispro (Insulin Lispro 100 Unit/Ml 3 Ml Vial) 0 unit SUBCUT QIDACHS [facility]; Protocol Last Admin: 11/06/21 13:33 Dose: 2 unit Documented by: Melatonin (Melatonin 3 Mg Tablet) 6 mg PO BEDTIME PRN PRN Reason: Insomnia Neomycin/Polymyxin/Hydrocortisone (Neomycin/Polymyxin/Hc Otic Melanie 10 Ml Drpbtl) 3 drop EAR-RIGHT QID [facility] Last Admin: 11/06/21 13:32 Dose: 3 drop Documented by: Omeprazole (Omeprazole 40 Mg Capsule.Dr) 40 mg PO DAILY@0630 [facility] Last Admin: 11/06/21 07:27 Dose: 40 mg Documented by: Oxycodone HCl (Oxycodone Hcl Immed Release 5 Mg Tablet) 5 mg PO Q6H PRN PRN Reason: Pain, Severe (Pain Scale 7-10) Pharmacy Consult (Consult Rx Perform Med Rec) 1 each MISCELLANE ONCE PRN PRN Reason: Consult order Senna (Sennosides 8.6 Mg Tablet) 17.2 mg PO BEDTIME PRN PRN Reason: Constipation Sitagliptin Phosphate (Sitagliptin Phosphate 100 Mg Tablet) 100 mg PO DAILY [facility] Last Admin: 11/06/21 13:48 Dose: 100 mg Documented by: Sodium Chloride (0.9 % Sodium Chloride Flush 3 Ml Syringe) [facility] Last Admin: 11/06/21 07:27 Dose: 3 ml Documented by: Home Medications Medication Instructions Recorded Confirmed Last Taken Type acetaminophen 325 mg tablet 2 tab PO TID PRN 11/06/21 11/06/21 Unknown History atorvastatin 40 mg tablet 1 tab PO QAM 11/06/21 11/06/21 Unknown History furosemide 40 mg tablet 1 tab PO BID 11/06/21 11/06/21 Unknown History haloperidol 10 mg tablet 1 tab PO BID 11/06/21 11/06/21 Unknown History metformin 500 mg tablet 1 tab PO BID 11/06/21 11/06/21 Unknown History pantoprazole 40 mg tablet,delayed 1 tab PO DAILY 11/06/21 11/06/21 Unknown History release sitagliptin 100 mg tablet (Juan Antoniouvia) 1 tab PO DAILY 11/06/21 11/06/21 Unknown History Physical Exam Vital Signs: Vital Signs: Last Vital Signs Temp 98.5 F 11/06/21 04:22 Pulse 96 11/06/21 14:54 Resp 18 11/06/21 07:34 BP 98/55 L 11/06/21 14:54 Pulse Ox 96 11/06/21 14:54 Oxygen Flow Rate 2 11/05/21 22:28 BMI result Body Mass Index 25.7 Const: General: cooperative HEENT: Head: Yes normal to inspection Mouth: Normal oral and palatal mucosa present (right auricle redness) Resp: Effort & Inspection: normal respiratory effort Cardio: Rate: regular rate Rhythm: regular rhythm GI: Palpation (GI): Soft to palpation and nontender Results Labs CBC & Chem 7: 11/05/21 22:59 11/05/21 22:59 Labs: Short CBC 11/05/21 Range/Units 22:59 WBC 6.2 (4.8-10.8) X10*3/uL Hgb 11.6 L (14.0-18.0) g/dl Hct 40.5 L (42.0-52.0) % Plt Count 334 (160-400) X10*3/uL BMP 11/05/21 22:59 Sodium 138 Potassium 4.5 Chloride 97 Carbon Dioxide 32 H BUN 22 H Creatinine 1.55 H Calcium 8.7 Liver Function 11/05/21 Range/Units 22:59 Total Bilirubin 0.3 (0.0-1.0) mg/dL AST 11 (5-37) U/L ALT 11 (0-40) U/L Alkaline Phosphatase 77 (39-117) U/L Albumin 3.6 (3.5-5.0) g/dL Urine 11/06/21 Range/Units 00:58 Urine Color STRAW Urine Appearance CLEAR Urine pH 7.0 (5.0-8.0) Ur Specific [place] 1.010 (1.005-1.025) Urine Protein NEG (NEG-TRACE) MG/DL Urine Glucose (UA) 250 H (NEG) MG/DL Assessment and Plan (1) Malignant otitis externa: Status: Acute this is possible due to diabetes other possible etiologies are immunosuppression (2) Pneumonia: Status: Acute Plan Would continue Zosyn Await blood cultures Check HIV Possible Levaquin on discharge. Manage blood sugar
[2021-11-06 18:16] LABS: Glucose, Whole Blood 289 mg/dL (60-115)
[2021-11-06 21:45] LABS: Glucose, Whole Blood 300 mg/dL (60-115)
[2021-11-06 21:55] VITALS: PULSE 88; O2SAT 94
[2021-11-06 23:37] VITALS: BP 107/69; PULSE 90; RESP 16; TEMP 36.6; O2SAT 97
[2021-11-06] MEDS: Atorvastatin Calcium 40 MG TABLET PO (23:40)
[2021-11-07] VITALS: BP 140/84; PULSE 100; RESP 17; TEMP 36.5; O2SAT 99
[2021-11-07] MEDS: 0.9 % Sodium Chloride Flush 3 ML SYRINGE IVFLUSH ×3 (00:19→16:13)
[2021-11-07 02:54] VITALS: BMI 20.5
--- NOTE | 2021-11-07 03:14 | PC.NURSE ---
PATIENT ADMITTED TO ROOM 487 FROM ED AT 0015 WITH CELLULTIS/INFECTION TO RIGHT EXTERNAL EARLOBE AND ELEVATED BLOOD SUGARS IN ED. CXR FOUND RIGHT PNEUMONIA AND PT ARRIVED WITH IVABX IN RUNNING MODE. PT ALERT, AWAKE, AND ABLE TO AMBULATE FEW STEPS TO BED. NOTED PATIENT VERY ABRUPT WITH NORMAL CONVERSATION, UNWILLING TO ANSWER MANY ADMISSION QUESTIONS, AND UNCOOPERATIVE WITH SKIN ASSESSMENT, ASSISTANCE WITH HYGIENE, AND/OR HEALTH RELATED INFORMATION. MOST SITUATIONS JUST ASKING THE STAFF TO LET HIM BE. PT DECLINED TO REMOVE HIS OWN PANTS , BUT AFTER AWHILE HE WAS INSISTENT TO BE GIVEN TOILET PAPER AND PROCEEDED TO SATND , LOWER HIS PANTS AND ROUGHLY RUB, WIPE HIS OUTER BILAT BUTTOCKS CHEEKS. NOTED AT THAT TIME TO VISUALIZE DRY SCALY SKIN, SCATTERED OPEN AREAS, PINPOINT BLEEDING TO TOILET TISSUE, AND PREVIOUSLY APPLIED CREAM. PT DECLINED ALL ASSISTANCE, WARM WIPES, OR SKIN CARE FROM BOTH NAN AND THIS RN. SEE PHOTO DOCUMENTATION POSTED FROM ED STAFF. PT ANGRY THAT IVABX WAS NOT COMPLETE, WANTED FOOD, BUT REFUSED ALL SELECTIONS OFFERED, WANTED BEDSIDE TABLE MOVED AWAY, AND CALL PENA OFF BED BUT IN REACH. ADMISSION, BED CONTROLS, CALL PENA, SAFETY, FALL RISK, AND CAMERA IN ROOM FOR SAFETY ALL EXPLAINED TO PT. SEE ADMISSION FOR FURTHER DETAILS. RIGHT EARLOBE CONDITION CHRONIC; TENDER, EDEMATOUS, RED, BUT NO DRAINAGE AT THIS TIME. WILL CONTINUE TO MONITOR PT CLOSELY.
[2021-11-07 03:42] VITALS: BP 99/56; PULSE 84; RESP 18; O2SAT 94
[2021-11-07 08:19] LABS: Glucose, Whole Blood 190 mg/dL (60-115)
[2021-11-07] MEDS: Insulin Lispro 100 UNIT/ML 3 ML VIAL SUBCUT ×3 (08:28→20:17)
[2021-11-07] MEDS: SITagliptin Phosphate 100 MG TABLET PO (08:30)
[2021-11-07] MEDS: HaloperidoL 5 MG TABLET 10 MG PO ×2 (08:31→19:49)
[2021-11-07] MEDS: Piperacillin Sodium/Tazobactam 3.375 GM in 0.9 % Sodium Chloride 50 ML IV ×3 (08:39→19:49)
[2021-11-07 14:20] LABS: MANUAL DIFF FLAG NO
[2021-11-07 14:22] LABS: Basophils Absolute Auto 0.1 X10*3/uL (0.0-0.2); Basophils Percent Auto 0.7 % (0-2); Eosinophils Absolute Auto 0.4 X10*3/uL (0.0-0.4); Eosinophils Percent Auto 5.5 % (0-4); Hematocrit 40.6 % (42.0-52.0); Hemoglobin 11.5 g/dl (14.0-18.0); Imm Gran Abs Auto 0.02 X10*3/uL (0.00-0.03); Imm Gran Pct Auto 0.3 % (0.0-0.4); Lymphocytes Absolute Auto 1.2 X10*3/uL (1.2-4.9); Lymphocytes Percent Auto 16.6 % (20-40); Mean Corpuscular HGB Conc 28.3 g/dl (31.0-36.0); Mean Corpuscular Hemoglobin 23.6 pg (27.0-33.0); Mean Corpuscular Volume 83.4 fL (80.0-98.0); Mean Platelet Volume 9.3 fL (9.4-12.4); Monocytes Percent Auto 13.3 % (2-11); Neutrophils Absolute Auto 4.6 x10*3/uL (2.0-8.3); Neutrophils Percent Auto 63.6 % (45-73); Platelet Count 376 X10*3/uL (160-400); Red Blood Count 4.87 X10*6/uL (4.60-5.80); Red Cell Distribution Width 22.9 % (11.0-16.0); White Blood Count 7.3 X10*3/uL (4.8-10.8)
[2021-11-07 14:37] LABS: Glucose, Whole Blood 235 mg/dL (60-115)
[2021-11-07 14:38] LABS: Anion Gap 11 (12-20); Blood Urea Nitrogen 18 mg/dL (9-16); Calcium 9.3 mg/dL (8.4-10.2); Carbon Dioxide 33 mmol/L (22-29); Chloride 99 mmol/L (96-108); Creatinine Clr Calc Pharmacy 62.7; Estimated Glomerular Filt Rate > 60; Glucose Random 243 mg/dL (60-115); Potassium 4.2 mmol/L (3.3-5.1); Sodium 139 mmol/L (135-145)
[2021-11-07 14:49] LABS: B Type Natriuretic Peptide 50 pg/mL (<100)
[2021-11-07] MEDS: NeoMYCIN/Polymyxin/HC Otic Sus 10 ML DRPBTL 3 DROP EAR-RIGHT ×2 (15:20→19:54)
--- NOTE | 2021-11-07 15:23 | PC.NURSE ---
Skin assessment completed. Patient has very, dry cracked skin to right ear, bilateral buttocks, mick area and legs. There are no open areas. Sween 24 moisturizing cream applied to all areas. To be done daily.
--- NOTE | 2021-11-07 16:03 | P.PNIM_ITS ---
Subjective Subjective Date of Service: 11/07/21 Interval History: feeling better less ear discomfort, denies fever chills refuse lab draws this morning, no acute issues overnight. Review of Systems ATTENUATOR no headache, no dizziness CVS no chest pain, no palpitation GI no nausea,no vomiting. Review of Systems: Yes all other systems are reviewed and are negative Physical Exam Vital Signs: Vital Signs: Last Vital Signs Temp 97.7 F 11/07/21 00:00 Pulse 84 11/07/21 03:42 Resp 18 11/07/21 03:42 BP 99/56 L 11/07/21 03:42 Pulse Ox 94 11/07/21 03:42 Oxygen Flow Rate 2 11/05/21 22:28 BMI result Body Mass Index 20.5 Const: Other: General? awake alert, no acute distress.? right ear? dry scaly skin external ear and less white debris in external canal, no drainage Neck no JVD. CVS? regular rate rhythm, Respiratory lungs? coarse breath sound,no respiratory distress Gastrointestinal abdomen soft, nontender, bowel sounds audible, no guarding , no rigidity. Extremities no edema. Neuro nonfocal, moving all 4 extremity speech clear. Skin? dry Stage 2 coccyx ulcer Objective Data Active Medications Acetaminophen (Acetaminophen 325 Mg Tablet) 650 mg PO Q6H PRN PRN Reason: Pain, Mild (Pain Scale 1-3) Atorvastatin Calcium (Atorvastatin Calcium 40 Mg Tablet) 40 mg PO BEDTIME COUNT INCLUDES THE [facility] Last Admin: 11/06/21 23:40 Dose: 40 mg Documented by: EMELINA Dextrose (Dextrose 50 % 25 Gm/50 Ml Vial) 25 gm IVPUSH Q15M PRN; Protocol PRN Reason: per Hypoglycemia Standing Ord. Dextrose (Dextrose 50 % 25 Gm/50 Ml Syringe) 25 gm IVPUSH Q15M PRN; Protocol PRN Reason: per Hypoglycemia Standing Ord. Enoxaparin Sodium (Enoxaparin Sodium 40 Mg/0.4 Ml Syringe) 40 mg SUBCUT Q24H COUNT INCLUDES THE [facility] Last Admin: 11/07/21 06:06 Dose: Not Given Documented by: KEVIN Non-Admin Reason: Patient Refused Glucose (Glucose Gel 15 Gm Gel..Gram.) 15 gm PO Q15M PRN; Protocol PRN Reason: per Hypoglycemia Standing Ord. Glucose (Glucose Gel 15 Gm Gel..Gram.) 15 gm PO Q15M PRN; Protocol PRN Reason: per Hypoglycemia Standing Ord. Haloperidol (Haloperidol 5 Mg Tablet) 10 mg PO BID COUNT INCLUDES THE [facility] Last Admin: 11/07/21 08:31 Dose: 10 mg Documented by: SENIA Piperacillin Sod/Tazobactam (Sod 3.375 gm/ Sodium Chloride) 50 mls @ 100 mls/hr IV Q6H COUNT INCLUDES THE [facility] Last Infusion: 11/07/21 15:24 Dose: 0 mls/hr Documented by: SENIA Insulin Human Lispro (Insulin Lispro 100 Unit/Ml 3 Ml Vial) 0 unit SUBCUT QIDACHS COUNT INCLUDES THE [facility]; Protocol Last Admin: 11/07/21 12:26 Dose: Not Given Documented by: SENIA Non-Admin Reason: refused vitals + POC glucose Melatonin (Melatonin 3 Mg Tablet) 6 mg PO BEDTIME PRN PRN Reason: Insomnia Metformin HCl (Metformin Hcl 500 Mg Tablet) 500 mg PO BIDWM COUNT INCLUDES THE [facility] Neomycin/Polymyxin/Hydrocortisone (Neomycin/Polymyxin/Hc Otic Melanie 10 Ml Drpbtl) 3 drop EAR-RIGHT QID COUNT INCLUDES THE [facility] Last Admin: 11/07/21 15:20 Dose: 3 drop Documented by: SENIA Omeprazole (Omeprazole 40 Mg Capsule.Dr) 40 mg PO DAILY@0630 COUNT INCLUDES THE [facility] Last Admin: 11/07/21 06:06 Dose: Not Given Documented by: KEVIN Non-Admin Reason: Patient Refused Oxycodone HCl (Oxycodone Hcl Immed Release 5 Mg Tablet) 5 mg PO Q6H PRN PRN Reason: Pain, Severe (Pain Scale 7-10) Pharmacy Consult (Consult Rx Perform Med Rec) 1 each MISCELLANE ONCE PRN PRN Reason: Consult order Senna (Sennosides 8.6 Mg Tablet) 17.2 mg PO BEDTIME PRN PRN Reason: Constipation Sitagliptin Phosphate (Sitagliptin Phosphate 100 Mg Tablet) 100 mg PO DAILY COUNT INCLUDES THE [facility] Last Admin: 11/07/21 08:30 Dose: 100 mg Documented by: SENIA Sodium Chloride (0.9 % Sodium Chloride Flush 3 Ml Syringe) 3 ml IVFLUSH QSHIFT COUNT INCLUDES THE [facility] Last Admin: 11/07/21 08:33 Dose: 3 ml Documented by: SENIA Labs CBC & Chem 7: 11/07/21 14:10 11/07/21 14:10 Labs: Laboratory Results - last 24 hr 11/06/21 11/06/21 11/07/21 18:11 21:41 08:16 MCV MCH MCHC RDW Plt Count MPV Immature Gran % (Auto) Neut % (Auto) Lymph % (Auto) [place] % (Auto) Eos % (Auto) Baso % (Auto) Lymph # (Auto) [place] # (Auto) Eos # (Auto) Baso # (Auto) Abs Immat Gran (auto) Absolute Neuts (auto) Absolute Nucleated RBC Nucleated RBC % (auto) Anion Gap Estim Creat Clear Calc Estimated GFR POC Glucose 289 H 300 H 190 H Random Glucose Calcium B-Natriuretic Peptide 11/07/21 11/07/21 11/07/21 14:10 14:10 14:10 MCV 83.4 MCH 23.6 L MCHC 28.3 L RDW 22.9 H Plt Count 376 MPV 9.3 L Immature Gran % (Auto) 0.3 Neut % (Auto) 63.6 Lymph % (Auto) 16.6 L [place] % (Auto) 13.3 H Eos % (Auto) 5.5 H Baso % (Auto) 0.7 Lymph # (Auto) 1.2 [place] # (Auto) 1.0 Eos # (Auto) 0.4 Baso # (Auto) 0.1 Abs Immat Gran (auto) 0.02 Absolute Neuts (auto) 4.6 Absolute Nucleated RBC 0.000 Nucleated RBC % (auto) 0.0 Anion Gap 11 L Estim Creat Clear Calc 62.7 Estimated GFR > 60 POC Glucose Random Glucose 243 H Calcium 9.3 D B-Natriuretic Peptide 50 11/07/21 14:12 MCV MCH MCHC RDW Plt Count MPV Immature Gran % (Auto) Neut % (Auto) Lymph % (Auto) [place] % (Auto) Eos % (Auto) Baso % (Auto) Lymph # (Auto) [place] # (Auto) Eos # (Auto) Baso # (Auto) Abs Immat Gran (auto) Absolute Neuts (auto) Absolute Nucleated RBC Nucleated RBC % (auto) Anion Gap Estim Creat Clear Calc Estimated GFR POC Glucose 235 H Random Glucose Calcium B-Natriuretic Peptide Assessment and Plan (1) Malignant otitis externa: Status: Acute (2) Pneumonia: Status: Acute (3) Acute kidney injury: Status: Acute Plan 61-year-old male with a past medical history of hyperlipidemia, diabetes, CHF, schizophrenia present from the [facility] with a chief complaint of high blood sugars.? Noted to have following conditions Review of all investigations consistent with mild CHF exacerbation for which the patient receives 60 mg of Lasix, malignant otitis externa for which the patient received Zosyn, and community-acquired pneumonia which is also covered by same antibiotic.? Patient also received 1 L of IV fluids and there is improvement of patient's glucose level without evidence of DKA or HHS. acute right malignant Otitis externa possibly due to diabetes: head CT showed no evidence of mastoiditis , no fevers, no leukocytosis, mild tachycardia resolved on IV Zosyn day 2, continue ear drops seen by ID she recommend to check HIV, and transition to Levaquin on discharge blood cultures not drawn.? mild acute hypoxic respiratory failure likely due to pneumonia resolved finger oximetry 94% on room air PNA:? Chest x-ray showed right middle lobe and lower lobe infiltrates, patient denies shortness of breath or cough. follow clinical course?, normal WBC no fevers. Diabetes/hyperglycemia:? continue insulin sliding scale, patient on Januvia and metformin at home, will resume Januvia.? History of diastolic CHF and severe pulmonary hypertension reviewed record from [facility]? patient denies shortness of breath, BNP 241, chest x-ray showed no edema, patient received 1 dose of IV Lasix 60 mg in ED. takes Lasix 40 mg b.i.d. at home will hold due to low blood pressure and follow clinical course Acute kidney injury Patient's creatinine on presentation was 1.5, improved to baseline hold Lasix patient appears euvolemic Decubitous Ulcer/ stage II coccyx ulcer: high-protein diet, frequent position change and Pressure ulcer care per RN. Dyslipidemia continue statin Schizophrenia continue Haldol, patient chronically refuses interventions including blood draws need coaxing to take by mouth medication GERD continue PPI history of cocaine/polysubstance abuse DVT prophylaxis:? 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 patient has a guardian Yajaira (court appointed) [phone]. patient will need to inpatient hospitalization due to pneumonia/ malignant otitis externa on IV antibiotic . Quality Stroke Does the patient have a stroke diagnosis?: No VTE Prior VTE?: No VTE Risk Level:: Medical - moderate - high VTE Device Contraindication: Treatment Not Indicated VTE Drug Contraindication: N/A - Med Ordered
[2021-11-07 16:21] LABS: Glucose, Whole Blood 251 mg/dL (60-115)
[2021-11-07] MEDS: metFORMIN HCl 500 MG TABLET PO (17:21)
[2021-11-07] MEDS: Atorvastatin Calcium 40 MG TABLET PO (19:49)
[2021-11-07 20:00] VITALS: PULSE 16
[2021-11-07 20:09] LABS: Glucose, Whole Blood 223 mg/dL (60-115)
[2021-11-07 23:46] VITALS: BP 117/69; PULSE 81; RESP 17; TEMP 36.9; O2SAT 94
[2021-11-08] MEDS: 0.9 % Sodium Chloride Flush 3 ML SYRINGE IVFLUSH ×2 (02:04→11:52)
[2021-11-08] MEDS: Piperacillin Sodium/Tazobactam 3.375 GM in 0.9 % Sodium Chloride 50 ML IV (02:07)
[2021-11-08 02:48] VITALS: BP 92/54; PULSE 100; RESP 17; TEMP 36.8; O2SAT 88
[2021-11-08] MEDS: HaloperidoL 5 MG TABLET 10 MG PO (11:51)
[2021-11-08] MEDS: SITagliptin Phosphate 100 MG TABLET PO (11:52)
[2021-11-08] MEDS: levoFLOXacin 750 MG TABLET PO (11:52)
[2021-11-08] MEDS: metFORMIN HCl 500 MG TABLET PO (11:52)
[2021-11-08] MEDS: NeoMYCIN/Polymyxin/HC Otic Sus 10 ML DRPBTL 3 DROP EAR-RIGHT (11:52)
[2021-11-08 11:53] VITALS: BP 119/75; PULSE 104; RESP 24; TEMP 36.9; O2SAT 95
[2021-11-08 12:00] LABS: Glucose, Whole Blood 285 mg/dL (60-115)
--- NOTE | 2021-11-08 12:22 | MHC.CM.PN ---
IMM 11/06/21 Male 61 DX Otitis externa The patient is discharged back to [facility] today. iKmi, the hand cigar making supervisor has been notified of discharge, via phone. She provided contact info for the patients pharmacy. The pharmacy contact info has been updated in the computer. The [facility] requests standard discharge paperwork. No additional forms will be required for the DC to [facility]. [facility] staff will transport the patient at discharge. They will be in to pick him up this afternoon.
--- NOTE | 2021-11-08 12:39 | PC.NURSE ---
Patient ambulated around unit (>100 feet) with [facility] staff on room air, upon returning back to room, patient breathing normal and SpO2 95%.
--- NOTE | 2021-11-08 12:55 | P.DS_ITS ---
DS: Providers Provider Date of Service: 11/08/21 Date of admission: 11/06/21 05:21 Primary care physician: Unknown Physician Consults: 11/06/21 05:21 Consult to Infectious Diseases Routine Consulting Provider: Georgia Weeks Reason for consultation: otitis externa DS: Diagnosis Discharge Diagnosis (1) Malignant otitis externa: Status: Acute (2) Pneumonia: Status: Acute (3) Acute kidney injury: Status: Acute DS: Summary Hospital Course Hospital Course: 61-year-old male with a past medical history of hyperlipidemia, diabetes, CHF, schizophrenia present from the [facility] with a chief complaint of high blood sugars. Patient refused to talk to me, most of the history obtained from the records and staff.? Reportedly patient was sent from the [facility] after he was noted to have high blood sugar levels.? Patient denied any chest pain palpitations lightheadedness dizziness fever, chills cough, urinary symptoms to the ER staff.? Reported he has tenderness in his right ear; Review of all other systems is limited ER team noted that patient had right year findings consistent with otitis externa, tender on palpation, noted pus-like discharge; CT head was done which showed no intracranial process, no evidence of mastoiditis.? Patient was given Zosyn.? On presentation noted to have blood glucose levels and 300s; also initially concern for CHF-patient was given Lasix.? Admitted for further management hospital course 61-year-old male with a past medical history of hyperlipidemia, diabetes, CHF, schizophrenia present from the [facility] with a chief complaint of high blood sugars.? Noted to have following conditions Review of all investigations consistent with mild CHF exacerbation for which the patient receives 60 mg of Lasix, malignant otitis externa for which the patient received Zosyn, and community-acquired pneumonia which is also covered by same antibiotic.? Patient also received 1 L of IV fluids and there is improvement of patient's glucose level without evidence of DKA or HHS. acute right malignant Otitis externa possibly due to diabetes,head CT showed no evidence of mastoiditis , no fevers, no leukocytosis, patient treated with IV Zosyn and Cortisporin ear drops, with good response noted to have less redness swelling and drainage, now being discharged home on eardrops for 5 more days, and Levaquin by mouth for 12 more days, he remained afebrile mild acute hypoxic respiratory failure likely due to pneumonia? resolved finger oximetry 95% on room air after ambulating in hallway. PNA:? Chest x-ray showed right middle lobe and lower lobe infiltrates, patient denies shortness of breath or cough, continue antibiotic as above , normal WBC no fevers. Diabetes/hyperglycemia:? continue Januvia and metformin History of? diastolic CHF and severe pulmonary hypertension, chest x-ray showed no edema patient received 1 dose of IV Lasix 60 mg in the ED will resume dose of Lasix 40 mg twice daily upon discharge Acute? kidney injury creatinine on presentation was 1.5, improved to baseline. Dyslipidemia continue statin Schizophrenia continue Haldol, patient refuses interventions including blood draws need coaxing to take by mouth medication GERD continue PPI history of cocaine/polysubstance abuse, no withdrawal symptoms noted dry scaly skin continue moisturizing cream. Time Spent with Patient Time attestation: Total time spent providing and/or coordinating discharge services: Discharge coordination time: Greater than 30 minutes Quality: Safe Use of Opioids Does Pt have an Active Cancer Diagnosis on the Problem List?: No Quality: Stroke Does the patient have a stroke diagnosis?: No Physical Exam Vital Signs: Vital Signs: Last Vital Signs Temp 98.5 F 11/08/21 11:53 Pulse 104 H 11/08/21 11:53 Resp 24 H 11/08/21 11:53 BP 119/75 11/08/21 11:53 Pulse Ox 95 11/08/21 11:53 Oxygen Flow Rate 2 11/05/21 22:28 BMI result Body Mass Index 20.5 Const: Other: General? awake alert, no acute distress.? right ear?dry scaly skin external ear, less white debris in external canal, no drainage Neck no JVD. CVS? regular rate rhythm, Respiratory lungs? coarse breath sound,no respiratory distress Gastrointestinal abdomen soft, nontender, bowel sounds audible, no guarding , no rigidity. Extremities no edema. Neuro nonfocal, moving all 4 extremity speech clear. Skin? dry scaly skin DS: Data Data Completed and Pending Labs on day of discharge: Laboratory Results - last 24 hr 11/07/21 11/07/21 11/07/21 14:10 14:10 14:10 WBC 7.3 RBC 4.87 Hgb 11.5 L Hct 40.6 L MCV 83.4 MCH 23.6 L MCHC 28.3 L RDW 22.9 H Plt Count 376 MPV 9.3 L Immature Gran % (Auto) 0.3 Neut % (Auto) 63.6 Lymph % (Auto) 16.6 L [place] % (Auto) 13.3 H Eos % (Auto) 5.5 H Baso % (Auto) 0.7 Lymph # (Auto) 1.2 [place] # (Auto) 1.0 Eos # (Auto) 0.4 Baso # (Auto) 0.1 Abs Immat Gran (auto) 0.02 Absolute Neuts (auto) 4.6 Absolute Nucleated RBC 0.000 Nucleated RBC % (auto) 0.0 Sodium 139 Potassium 4.2 Chloride 99 Carbon Dioxide 33 H Anion Gap 11 L BUN 18 H Creatinine 1.17 Estim Creat Clear Calc 62.7 Estimated GFR > 60 POC Glucose Random Glucose 243 H Calcium 9.3 D B-Natriuretic Peptide 50 11/07/21 11/07/21 11/07/21 14:12 16:17 19:56 WBC RBC Hgb Hct MCV MCH MCHC RDW Plt Count MPV Immature Gran % (Auto) Neut % (Auto) Lymph % (Auto) [place] % (Auto) Eos % (Auto) Baso % (Auto) Lymph # (Auto) [place] # (Auto) Eos # (Auto) Baso # (Auto) Abs Immat Gran (auto) Absolute Neuts (auto) Absolute Nucleated RBC Nucleated RBC % (auto) Sodium Potassium Chloride Carbon Dioxide Anion Gap BUN Creatinine Estim Creat Clear Calc Estimated GFR POC Glucose 235 H 251 H 223 H Random Glucose Calcium B-Natriuretic Peptide 11/08/21 11:52 WBC RBC Hgb Hct MCV MCH MCHC RDW Plt Count MPV Immature Gran % (Auto) Neut % (Auto) Lymph % (Auto) [place] % (Auto) Eos % (Auto) Baso % (Auto) Lymph # (Auto) [place] # (Auto) Eos # (Auto) Baso # (Auto) Abs Immat Gran (auto) Absolute Neuts (auto) Absolute Nucleated RBC Nucleated RBC % (auto) Sodium Potassium Chloride Carbon Dioxide Anion Gap BUN Creatinine Estim Creat Clear Calc Estimated GFR POC Glucose 285 H Random Glucose Calcium B-Natriuretic Peptide Discharge Plan Discharge Patient Disposition: Home, Self-Care Discharge Diagnosis: right malignant otitis externa JOSEFINA pneumonia Referrals: Physician,Unknown J [Primary Care Provider] - 1 Week Discharge Medications: New [id number] 3.5-10,000-1 mg/mL-unit/mL-% Drops,Suspension 3 drp otic (ear) right QID Qty: 10 0RF levofloxacin 500 mg tablet 500 mg PO Q24H Qty: 12 0RF furosemide [Lasix] 40 mg tablet 40 mg PO BID Qty: 60 0RF Continued atorvastatin 40 mg tablet 1 tab PO QAM 0RF metformin 500 mg tablet 1 tab PO BID 0RF acetaminophen 325 mg tablet 2 tab PO TID PRN (Reason: pain) 0RF pantoprazole 40 mg tablet,delayed release (DR/EC) 1 tab PO DAILY 0RF haloperidol 10 mg tablet 1 tab PO BID 0RF Januvia 100 mg tablet 1 tab PO DAILY 0RF Discontinued furosemide 40 mg tablet 1 tab PO BID 0RF Discharge Orders: Discharge Order (Routine); Ordered 11/08/21 Ordered By: Christine Garza Diet: low fat, low cholesterol and low salt diet Activity on Discharge: As tolerated Stand Alone Forms: Patient Portal Discharge page Care Plan Goals: right malignant otitis externa use news poor in ear drops 3 drops 4 times a day for 5 more days, take Levaquin 1 tablet by mouth daily for 12 more days noted to mild kidney injury, resolved continue Lasix 40 mg twice daily as before dry scaly skin use moisturizing cream to all areas Health Concerns: hyperlipidemia/diabetes /schizophrenia /CHF Plan of Treatment: outpatient follow-up with primary care physician in 1-2 weeks Assessment: as per dc summary
== END 2021-11-08 13:30 | disposition home or self-care (01) | DRG 193 ==
LOC: HO.ED 11-06 01:57 → HO.EDOVER 11-06 05:34 → HO.IMC 11-06 23:37
PROVIDERS: Admitting Provider Hospitalist; Emergency Provider Student in an Organized Health Care Education/Training Program; PCP Internal Medicine; Visit Provider Hospitalist
DX: J18.9 Pneumonia, unspecified organism (principal); J96.01 Acute respiratory failure with hypoxia; H60.21 Malignant otitis externa, right ear; I50.32 Chronic diastolic (congestive) heart failure; N17.9 Acute kidney failure, unspecified; E11.65 Type 2 diabetes mellitus with hyperglycemia; T38.3X6A Underdosing of insulin and oral hypoglycemic [antidiabetic] drugs, initial encounter; Z91.120 Patient's intentional underdosing of medication regimen due to financial hardship; E78.5 Hyperlipidemia, unspecified; E11.69 Type 2 diabetes mellitus with other specified complication; I27.20 Pulmonary hypertension, unspecified; F14.10 Cocaine abuse, uncomplicated; K21.9 Gastro-esophageal reflux disease without esophagitis; F20.9 Schizophrenia, unspecified; L89.152 Pressure ulcer of sacral region, stage 2; F17.210 Nicotine dependence, cigarettes, uncomplicated; Z71.6 Tobacco abuse counseling; Z20.822 Contact with and (suspected) exposure to COVID-19; Z79.84 Long term (current) use of oral hypoglycemic drugs; Z79.899 Other long term (current) drug therapy
CPT/HCPCS: 36415; 70450; 71045; 80048; 80053; 81003; 82009; 82803; 82947; 83880; 85025; 86140; 87635; 93005; 96361; 96365; 96375; 99285; J1650; J1940; J2543

== ENCOUNTER 2021-12-11 17:22 | Inpatient (IN) | payer OTHER, SELFPAY ==
[2021-12-11] VITALS (7 sets, daily range): BP systolic 102–126; BP diastolic 59–72; PULSE 79–94; RESP 16–28; TEMP 36.6; O2SAT 87–100; BMI 25.0
--- NOTE | ~2021-12-11 | XR_ITS ---
EXAMINATION: XR CHEST CLINICAL INFORMATION: Dyspnea COMPARISON: Chest x-ray on 11/05/2021 TECHNIQUE: Frontal view of the chest was obtained. FINDINGS: Cardiomediastinal silhouette is normal. Mild progression of the hazy opacities in the right mid and lower lobe. No pleural effusions. No new areas of consolidation. XR/XR chest 1V IMPRESSION: Mild progression of the hazy opacities in the right mid and lower lobe. Findings may be related to pneumonia in appropriate clinical setting.
--- NOTE | ~2021-12-11 | CT_ITS ---
EXAMINATION: CT CHEST WITHOUT CONTRAST CLINICAL INFORMATION: Hypoxia, possible aspiration. COMPARISON: None TECHNIQUE: Multidetector volumetric CT imaging of the chest was done. Axial MIP volume rendering provided. Sagittal and coronal reformatted images were obtained. This CT examination was performed using dose optimization techniques as appropriate, variously including the following: *Automated exposure control *Adjustment of mA and/or kV according to patient size (this includes techniques or standardized protocols for targeted exams where dose is matched to indication/reason for exam; i.e. extremities or head) *Use of iterative reconstruction technique DLP: 332 mGy-cm FINDINGS: SENIOR DATA MINING ANALYST: Unremarkable chest exam LUNGS: The lungs are well-expanded and clear of acute pneumonic process. Minimal atelectatic changes are seen in the lingula MEDIASTINUM: The thyroid lobes are symmetric and normal. The central trachea and the bronchi widely patent. Heart size and the great vessels are normal caliber. There is no pericardial effusion. No abnormal medius lymph nodes seen. PLEURA: There is no pleural effusion. No pleural mass or thickening. AXILLA: No lymphadenopathy. UPPER ABDOMEN: Visualized liver, spleen, pancreas and bilateral adrenal glands are unremarkable. OSSEOUS STRUCTURES: No lytic or sclerotic process seen. Mild spondylosis dorsal spine. CT/CT chest wo con IMPRESSION: Expanded lungs with minimal atelectatic changes as described above. There is no aspiration pneumonia seen. Fleischner guidelines were followed.
--- NOTE | 2021-12-11 17:42 | ECG_ITS ---
Test Reason : DISPNEA Blood Pressure : / mmHG Vent. Rate : 088 BPM Atrial Rate : 088 BPM P-R Int : 176 ms QRS Dur : 072 ms QT Int : 422 ms P-R-T Axes : 079 240 -04 degrees QTc Int : 510 ms Normal sinus rhythm Right superior axis deviation Right ventricular hypertrophy T wave abnormality, consider anterior ischemia Prolonged QT Abnormal ECG When compared with ECG of 06-NOV-2021 10:24, QT has lengthened Referred By: Emiliana Escobar Electronically Signed By:FABRICIO VIERA MD
--- NOTE | 2021-12-11 17:43 | ED_ITS ---
HPI - SOB/Dyspnea General Chief Complaint: Dyspnea Stated Complaint: SOB FROM SNF PER EMS Time Seen by Provider: 12/11/21 17:43 Source: patient and old records reviewed Mode of arrival: EMS Limitations: other (poor historian) History of Present Illness HPI Narrative: 87% on RA on arrival to ED - he is a poor historian tells me I was gagging and became short of breath then c/o dyspnea MD elicited complaint: shortness of breath Pertinent past history: congestive heart failure and pneumonia Onset (ago): minute(s) Context: other (patient states I was gagging ) Timing: improved (with supplemental O2 from EMS) Severity: moderate Exacerbating factors: coughing Relieving factors: oxygen and rest Known history of: congestive heart failure and recurrent pneumonia Associated symptoms: cough and sputum production Treatment prior to arrival: oxygen Related Data Home Medications Medication Instructions Recorded Confirmed acetaminophen 325 mg tablet 2 tab PO TID PRN 11/06/21 11/06/21 atorvastatin 40 mg tablet 1 tab PO QAM 11/06/21 11/06/21 haloperidol 10 mg tablet 1 tab PO BID 11/06/21 11/06/21 metformin 500 mg tablet 1 tab PO BID 11/06/21 11/06/21 pantoprazole 40 mg tablet,delayed 1 tab PO DAILY 11/06/21 11/06/21 release sitagliptin 100 mg tablet (Januvia) 1 tab PO DAILY 11/06/21 11/06/21 Previous Rx's Medication Instructions Recorded furosemide 40 mg tablet (Lasix) 40 mg PO BID #60 tab 11/08/21 levofloxacin 500 mg tablet 500 mg PO Q24H #12 tab 11/08/21 fyscyqup-zlarkxpyx-mjlhmgxck 3.5 3 drp OTIC (EAR) RIGHT QID #10 ml 11/08/21 mg-10,000 unit/mL-1 % ear drops,susp Allergies Allergy/AdvReac Type Severity Reaction Status Date / Time No Known Allergies Allergy Verified 11/05/21 22:25 Review of Systems Review of Systems: ROS unable to be obtained due to patient is not really answering questions and is agitated with me asking him questions PMFSH Past Medical History Attestation statement: The following information was validated with the patient. Medical History CHF (congestive heart failure) Diabetes Malignant otitis externa Pneumonia Social History Social History Household Members: Unknown / Unable to assess Housing: Other Do you presently have visiting nurse or other home services: No (paperwork states was living at a [place] [facility], but only recently) Patient Tobacco Use Status: Tobacco use Unknown Tobacco use type: Cigarette Second Hand Smoke Exposure: No Use of substances other than those prescribed or required for medical reasons: Yes Substance Use Frequency: Chronic Longstanding Advance Directives: No Advance Directives Information Provided: No service: No Physical Exam Vital Signs: Vital Signs: Last Vital Signs Temp 97.8 F 12/11/21 17:37 Pulse 88 12/11/21 20:23 Resp 16 12/11/21 20:23 BP 111/72 12/11/21 20:23 Pulse Ox 98 12/11/21 20:23 BMI result Body Mass Index 25.0 Appearance: Alert. Oriented X2 (time and place). No acute distress. Eyes: Pupils equal, round and reactive to light. ENT: Pharynx normal. Neck: Normal inspection. Neck supple. CVS: Normal heart rate and rhythm. Pulses normal. Respiratory: No respiratory distress. Breath sounds very diminished he will not perform full exam 87% on RA up to 98% on 4L NC Abdomen: Soft and nontender. Skin: Skin warm and dry. Normal skin color. poor skin skin turgor. Extremities: No lower extremity edema. No calf ttp Neuro: Oriented X 2 No motor deficit. No sensory deficit. Course Course Course Narrative: empiric zosyn ordered given hx of gagging and CXR - possible aspiration signed out to Dr. Mejía patient still requires O2 - ddimer negative MDM - SOB/Dyspnea MDM Narrative Medical decision making narrative: 61 yo male with hx of CHF, DM, pneumonia, HLD here with c/o gagging then c/o shortness of breath. He is 87% on RA at this time. Will obtain basic labs, BNP, CXR for aspiration pneumonia, EKG, supplemental O2. He denies CP at this time and has no LE swelling to suggest DVT - dispo per results and findings. Lab Data Result diagrams: 12/11/21 20:38 12/11/21 20:38 Labs: Lab Results 12/11/21 12/11/21 12/11/21 Range/Units 20:05 20:38 20:38 WBC 4.2 L (4.8-10.8) X10*3/uL RBC 4.73 (4.60-5.80) X10*6/uL Hgb 11.4 L (14.0-18.0) g/dl Hct 40.1 L (42.0-52.0) % MCV 84.8 (80.0-98.0) fL MCH 24.1 L (27.0-33.0) pg MCHC 28.4 L (31.0-36.0) g/dl RDW 19.3 H (11.0-16.0) % Plt Count 438 H (160-400) X10*3/uL MPV 9.6 (9.4-12.4) fL Immature Gran % (Auto) 0.2 (0.0-0.4) % Neut % (Auto) 50.5 (45-73) % Lymph % (Auto) 33.5 (20-40) % [place] % (Auto) 12.4 H (2-11) % Eos % (Auto) 2.9 (0-4) % Baso % (Auto) 0.5 (0-2) % Lymph # (Auto) 1.4 (1.2-4.9) X10*3/uL [place] # (Auto) 0.5 (0.1-1.2) X10*3/uL Eos # (Auto) 0.1 (0.0-0.4) X10*3/uL Baso # (Auto) 0.0 (0.0-0.2) X10*3/uL Abs Immat Gran (auto) 0.01 (0.00-0.03) X10*3/uL Absolute Neuts (auto) 2.1 (2.0-8.3) x10*3/uL Absolute Nucleated RBC 0.000 (0.0-0.012) X10*3/uL Nucleated RBC % (auto) 0.0 (0.0-0.2) /100WBC PT 12.4 (9.9-13.0) SEC INR 1.1 (0.9-1.1) D-Dimer High Sensitivty NG/ML POC Glucose 186 H (60-115) mg/dL 12/11/21 Range/Units 20:38 WBC (4.8-10.8) X10*3/uL RBC (4.60-5.80) X10*6/uL Hgb (14.0-18.0) g/dl Hct (42.0-52.0) % MCV (80.0-98.0) fL MCH (27.0-33.0) pg MCHC (31.0-36.0) g/dl RDW (11.0-16.0) % Plt Count (160-400) X10*3/uL MPV (9.4-12.4) fL Immature Gran % (Auto) (0.0-0.4) % Neut % (Auto) (45-73) % Lymph % (Auto) (20-40) % [place] % (Auto) (2-11) % Eos % (Auto) (0-4) % Baso % (Auto) (0-2) % Lymph # (Auto) (1.2-4.9) X10*3/uL [place] # (Auto) (0.1-1.2) X10*3/uL Eos # (Auto) (0.0-0.4) X10*3/uL Baso # (Auto) (0.0-0.2) X10*3/uL Abs Immat Gran (auto) (0.00-0.03) X10*3/uL Absolute Neuts (auto) (2.0-8.3) x10*3/uL Absolute Nucleated RBC (0.0-0.012) X10*3/uL Nucleated RBC % (auto) (0.0-0.2) /100WBC PT (9.9-13.0) SEC INR (0.9-1.1) D-Dimer High Sensitivty 151 NG/ML POC Glucose (60-115) mg/dL ECG Data Attestation: I personally reviewed and interpreted this ECG as follows: ECG interpretation date: 12/11/21 ECG interpretation time: 19:03 Interpretation: Rate: 88 Rhythm: NSR [place]: right Normal P waves. Normal TREY. Normal QRS complex. ST T wave : no DWAINE, inverted t waves V1-V5 (old except V4 and V5 are new) qTC: prolonged prior studies: prior t wave inversions noted only new in V4-V5 from prior 11/06/2021 The study has been interpreted contemporaneously by me. . Discharge Plan Discharge Clinical Impression: Acute dyspnea, Hypoxia Patient Disposition: Still a Patient Prescriptions: No Action atorvastatin 40 mg tablet 1 tab PO QAM 0RF metformin 500 mg tablet 1 tab PO BID 0RF acetaminophen 325 mg tablet 2 tab PO TID PRN (Reason: pain) 0RF pantoprazole 40 mg tablet,delayed release (DR/EC) 1 tab PO DAILY 0RF haloperidol 10 mg tablet 1 tab PO BID 0RF Januvia 100 mg tablet 1 tab PO DAILY 0RF shvlmysb-cevppogsz-ZT 3.5-10,000-1 mg/mL-unit/mL-% Drops,Suspension 3 drp otic (ear) right QID Qty: 10 0RF levofloxacin 500 mg tablet 500 mg PO Q24H Qty: 12 0RF furosemide [Lasix] 40 mg tablet 40 mg PO BID Qty: 60 0RF
[2021-12-11 20:08] LABS: Glucose, Whole Blood 186 mg/dL (60-115)
[2021-12-11] MEDS: Piperacillin Sodium/Tazobactam 4.5 GM in 0.9 % Sodium Chloride 100 ML IV (20:10)
[2021-12-11 20:47] LABS: MANUAL DIFF FLAG NO
[2021-12-11 20:53] LABS: Basophils Percent Auto 0.5 % (0-2); Eosinophils Absolute Auto 0.1 X10*3/uL (0.0-0.4); Eosinophils Percent Auto 2.9 % (0-4); Hematocrit 40.1 % (42.0-52.0); Hemoglobin 11.4 g/dl (14.0-18.0); Imm Gran Abs Auto 0.01 X10*3/uL (0.00-0.03); Imm Gran Pct Auto 0.2 % (0.0-0.4); Lymphocytes Absolute Auto 1.4 X10*3/uL (1.2-4.9); Lymphocytes Percent Auto 33.5 % (20-40); Mean Corpuscular HGB Conc 28.4 g/dl (31.0-36.0); Mean Corpuscular Hemoglobin 24.1 pg (27.0-33.0); Mean Corpuscular Volume 84.8 fL (80.0-98.0); Mean Platelet Volume 9.6 fL (9.4-12.4); Monocytes Absolute Auto 0.5 X10*3/uL (0.1-1.2); Monocytes Percent Auto 12.4 % (2-11); Neutrophils Absolute Auto 2.1 x10*3/uL (2.0-8.3); Neutrophils Percent Auto 50.5 % (45-73); Platelet Count 438 X10*3/uL (160-400); Red Blood Count 4.73 X10*6/uL (4.60-5.80); Red Cell Distribution Width 19.3 % (11.0-16.0); White Blood Count 4.2 X10*3/uL (4.8-10.8)
[2021-12-11 20:57] LABS: INTERNATIONAL NORM RATIO 1.1 (0.9-1.1); Prothrombin Time 12.4 SEC (9.9-13.0)
[2021-12-11 20:59] LABS: D Dimer High Sensitivity 151 NG/ML
[2021-12-11 21:07] LABS: COVID-19 Test Negative (Negative)
[2021-12-11 21:07] LABS: Lactic Acid 1.5 mmol/L (0.5-2.0)
[2021-12-11 21:11] LABS: B Type Natriuretic Peptide 193 pg/mL (<100); Troponin-I High Sensitivity 8.3 ng/L (<3.5-35.0)
[2021-12-11 21:17] LABS: Alanine Aminotransferase < 6 U/L (0-40); Albumin Level 3.4 g/dL (3.5-5.0); Alkaline Phosphatase 70 U/L (39-117); Anion Gap 12 (12-20); Aspartate Amino Transferase 8 U/L (5-37); Bilirubin Direct < 0.2 mg/dL (0.0-0.5); Bilirubin Total 0.2 mg/dL (0.0-1.0); Blood Urea Nitrogen 14 mg/dL (9-16); Calcium 8.6 mg/dL (8.4-10.2); Carbon Dioxide 33 mmol/L (22-29); Chloride 100 mmol/L (96-108); Creatinine Clr Calc Pharmacy 63.1; Estimated Glomerular Filt Rate > 60; Glucose Random 203 mg/dL (60-115); Lipase 61 U/L (8-78); Magnesium 1.5 mg/dL (1.6-2.6); Potassium 4.2 mmol/L (3.3-5.1); Sodium 141 mmol/L (135-145); Total Protein 7.6 g/dL (6.5-8.0)
--- NOTE | 2021-12-11 22:15 | PC.NURSE ---
while assisting the patient from the restroom I noticed increase work of breathing and audible wheezing. Patient was placed in his stretcher and placed back on his supplemental oxygen by nasal cannula initial pulse oxyementry was 74 afeter returning from restroom oxyegen saturation gradualy returned after o2 @ 6lpm to a saturation of 91. Rn made aware of the low sat and diff breathing.
[2021-12-11 22:26] LABS: Glucose, Whole Blood 202 mg/dL (60-115)
[2021-12-11] MEDS: methylPREDNISolone Sod Succ 125 MG/2 ML VIAL IVPUSH (22:28)
[2021-12-11] MEDS: Magnesium Sulfate/H2O 2 GM/50 ML PIGGYBACK IV (22:28)
[2021-12-11] MEDS: Albuterol Sulfate (0.083%) 2.5 MG/3 ML VIAL.NEB 10 MG INHALE (22:30)
--- NOTE | 2021-12-11 23:07 | PM.IMHP ---
History of Present Illness Date of Service: 12/11/21 Chief Complaint: SOB 61-year-old male with a past medical history of hyperlipidemia, diabetes, CHF, schizophrenia; presented to the hospital with a chief complaint of shortness of breath. Patient is a poor historian. Refused to talk or give the history. Mentioning we me alone. Patient reported that he has been having shortness of breath out further couple days. Denies any chest pain or palpitations. Most of the history obtained from the records and ER staff Reportedly patient came to the hospital with chief complaint of cough, shortness of breath. Denied patient having any fevers. Denied any GI symptoms. Review of all other systems is negative except mentioned above ER course: Per ER team patient reportedly noted to have oxygen saturation 70; placed on supplemental oxygen with improvement in oxygenation; CT scan was done which showed no evidence of pulmonary embolism or aspiration pneumonia. Patient noted to be wheezing; given nebulizations and Solu-Medrol; admitted to the hospital for further management PMFSH Medical History CHF (congestive heart failure) Diabetes Malignant otitis externa Pneumonia Social History Household Members: Unknown / Unable to assess Housing: Other Do you presently have visiting nurse or other home services: No (paperwork states was living at a [facility], but only recently) Patient Tobacco Use Status: Tobacco use Unknown Tobacco use type: Cigarette Second Hand Smoke Exposure: No Use of substances other than those prescribed or required for medical reasons: Yes Substance Use Frequency: Chronic Longstanding Advance Directives: No Advance Directives Information Provided: No service: No Meds Allergies Allergy/AdvReac Type Severity Reaction Status Date / Time No Known Allergies Allergy Verified 11/05/21 22:25 Active Medications: Current Medications Acetaminophen (Acetaminophen 325 Mg Tablet) 650 mg PO Q6H PRN PRN Reason: Pain, Mild (Pain Scale 1-3) Enoxaparin Sodium (Enoxaparin Sodium 40 Mg/0.4 Ml Syringe) 40 mg SUBCUT Q24H FAY Magnesium Sulfate (Magnesium Sulfate/H2o) 2 gm in 50 mls @ 25 mls/hr IV ONCE ONE Stop: 12/12/21 00:14 Last Admin: 12/11/21 22:28 Dose: 25 mls/hr Documented by: Melatonin (Melatonin 3 Mg Tablet) 6 mg PO BEDTIME PRN PRN Reason: Insomnia Senna (Sennosides 8.6 Mg Tablet) 17.2 mg PO BEDTIME PRN PRN Reason: Constipation Sodium Chloride (0.9 % Sodium Chloride Flush 3 Ml Syringe) [facility] Medications Medication Instructions Recorded Confirmed Last Taken Type acetaminophen 325 mg tablet 2 tab PO TID PRN 11/06/21 12/12/21 Unknown History atorvastatin 40 mg tablet 1 tab PO QAM 11/06/21 12/12/21 Unknown History haloperidol 10 mg tablet 1 tab PO BID 11/06/21 12/12/21 Unknown History metformin 500 mg tablet 1 tab PO BID 11/06/21 12/12/21 Unknown History pantoprazole 40 mg tablet,delayed 1 tab PO DAILY 11/06/21 12/12/21 Unknown History release sitagliptin 100 mg tablet (Januvia) 1 tab PO DAILY 11/06/21 12/12/21 Unknown History divalproex 250 mg tablet,extended 1 tab PO BID 12/12/21 12/12/21 Unknown History release 24 hr ferrous sulfate 325 mg (65 mg 1 tab PO BID 12/12/21 12/12/21 Unknown History iron) tablet,delayed release fluticasone propionate 50 1 spray INTRANASAL BID 12/12/21 12/12/21 Unknown History mcg/actuation nasal spray,suspension haloperidol 5 mg tablet 1 tab PO DAILY 12/12/21 12/12/21 Unknown History insulin aspart U-100 100 unit/mL See Rx Instructions .ROUTE .COMPLEX 12/12/21 12/12/21 Unknown History (3 mL) subcutaneous pen (Novolog Flexpen U-100 Insulin aspart) lorazepam 1 mg tablet 1 tab PO DAILY PRN 12/12/21 12/12/21 Unknown History Physical Exam Vital Signs and Narrative: Vital Signs: Last Vital Signs Temp 97.8 F 12/11/21 17:37 Pulse 88 12/11/21 22:31 Resp 28 H 12/11/21 22:31 BP 111/71 12/11/21 22:23 Pulse Ox 100 12/11/21 22:23 BMI result Body Mass Index 25.0 Gen: Appears be in no acute distress; Exam limited as the patient is poorly cooperative. on supplemental oxygen. HEENT: NCAT, Moist mucosa. Pulmonary: Breathing comfortably CVS: Regular rhythm on tele. Neuro: Alert and awake. Results Labs CBC and Chem 7: 12/11/21 20:38 12/11/21 20:38 Labs: Laboratory Results - last 24 hr 12/11/21 12/11/21 12/11/21 20:05 20:37 20:38 MCV 84.8 MCH 24.1 L MCHC 28.4 L RDW 19.3 H Plt Count 438 H MPV 9.6 Immature Gran % (Auto) 0.2 Neut % (Auto) 50.5 Lymph % (Auto) 33.5 [place] % (Auto) 12.4 H Eos % (Auto) 2.9 Baso % (Auto) 0.5 Lymph # (Auto) 1.4 [place] # (Auto) 0.5 Eos # (Auto) 0.1 Baso # (Auto) 0.0 Abs Immat Gran (auto) 0.01 Absolute Neuts (auto) 2.1 Absolute Nucleated RBC 0.000 Nucleated RBC % (auto) 0.0 PT INR D-Dimer High Sensitivty Anion Gap Estim Creat Clear Calc Estimated GFR POC Glucose 186 H Random Glucose Lactic Acid Calcium Magnesium Total Bilirubin Direct Bilirubin AST ALT Alkaline Phosphatase Troponin I High Sens B-Natriuretic Peptide Total Protein Albumin Lipase COVID-19 (TOMER) Negative COVID-19 Clin Com See Note 12/11/21 12/11/21 12/11/21 20:38 20:38 20:38 MCV MCH MCHC RDW Plt Count MPV Immature Gran % (Auto) Neut % (Auto) Lymph % (Auto) [place] % (Auto) Eos % (Auto) Baso % (Auto) Lymph # (Auto) [place] # (Auto) Eos # (Auto) Baso # (Auto) Abs Immat Gran (auto) Absolute Neuts (auto) Absolute Nucleated RBC Nucleated RBC % (auto) PT 12.4 INR 1.1 D-Dimer High Sensitivty Anion Gap 12 Estim Creat Clear Calc 63.1 Estimated GFR > 60 POC Glucose Random Glucose 203 H Lactic Acid Calcium 8.6 D Magnesium 1.5 L Total Bilirubin 0.2 Direct Bilirubin < 0.2 AST 8 ALT < 6 Alkaline Phosphatase 70 Troponin I High Sens B-Natriuretic Peptide 193 H Total Protein 7.6 Albumin 3.4 L Lipase 61 COVID-19 (TOMER) COVID-19 Clin Com 05/04/2612/11/21 12/11/21 20:38 20:38 20:38 MCV MCH MCHC RDW Plt Count MPV Immature Gran % (Auto) Neut % (Auto) Lymph % (Auto) [place] % (Auto) Eos % (Auto) Baso % (Auto) Lymph # (Auto) [place] # (Auto) Eos # (Auto) Baso # (Auto) Abs Immat Gran (auto) Absolute Neuts (auto) Absolute Nucleated RBC Nucleated RBC % (auto) PT INR D-Dimer High Sensitivty 151 Anion Gap Estim Creat Clear Calc Estimated GFR POC Glucose Random Glucose Lactic Acid 1.5 Calcium Magnesium Total Bilirubin Direct Bilirubin AST ALT Alkaline Phosphatase Troponin I High Sens 8.3 B-Natriuretic Peptide Total Protein Albumin Lipase COVID-19 (TOMER) COVID-[employer] Com 12/11/21 22:11 MCV MCH MCHC RDW Plt Count MPV Immature Gran % (Auto) Neut % (Auto) Lymph % (Auto) [place] % (Auto) Eos % (Auto) Baso % (Auto) Lymph # (Auto) [place] # (Auto) Eos # (Auto) Baso # (Auto) Abs Immat Gran (auto) Absolute Neuts (auto) Absolute Nucleated RBC Nucleated RBC % (auto) PT INR D-Dimer High Sensitivty Anion Gap Estim Creat Clear Calc Estimated GFR POC Glucose 202 H Random Glucose Lactic Acid Calcium Magnesium Total Bilirubin Direct Bilirubin AST ALT Alkaline Phosphatase Troponin I High Sens B-Natriuretic Peptide Total Protein Albumin Lipase COVID-19 (TOMER) COVID-19 Clin Com Imaging Radiologist's Impressions: Impressions Chest X-Ray 12/11/21 18:12 IMPRESSION: Mild progression of the hazy opacities in the right mid and lower lobe. Findings may be related to pneumonia in appropriate clinical setting. Chest CT 12/11/21 19:18 IMPRESSION: Expanded lungs with minimal atelectatic changes as described above. There is no aspiration pneumonia seen. Fleischner guidelines were followed. Assessment and Plan Plan 61-year-old male with a past medical history of hyperlipidemia, diabetes, CHF, schizophrenia; presented to the hospital with a chief complaint of shortness of breath. noted to have following Shortness of breath: Likely Reactive airway Disease: Patient on nebulizations and prednisone 40 mg for 5 days. EKG showed T-wave inversions in V1 to V5 -new T-wave inversions in V4 V5; initial troponin 8.3-repeat troponin pending Continue supplemental oxygen CT chest negative for PE and pneumonia. history of schizophrenia: Continue home Ativan, Depakote, Haldol. history of CHF: Stable. c/w home lasix DVT prophylaxis: Lovenox Code status: Full code. Confirmed with the patient's guardian, who has comprehensive guardianship. Legal guardian: Yajaira Wright - [phone]; Updated above plan of care. Expressed agreement. Quality Stroke Does the patient have a stroke diagnosis?: No VTE Prior VTE?: No VTE Risk Level:: Medical - moderate - high VTE Device Contraindication: Treatment Not Indicated VTE Drug Contraindication: N/A - Med Ordered
--- NOTE | 2021-12-11 23:40 | PC.NURSE ---
dr olivier aware pt is refusing 2nd set of blood cultures and states that is ok.
[2021-12-12] VITALS (13 sets, daily range): BP systolic 98–123; BP diastolic 56–78; PULSE 72–85; RESP 16–29; TEMP 36.4–36.8; O2SAT 88–100
--- NOTE | 2021-12-12 01:58 | PC.NURSE ---
Patient has been cooperative with staff this shift. He has allowed blood work to be drawn and has not refused any interventions this evening. Patient at one point decided to walk to the bathroom and his oxygen saturation dropped into the 70's. Patient is on oxygen through nasal cannula with 4 liters.
[2021-12-12 06:51] LABS: Glucose, Whole Blood 199 mg/dL (60-115)
[2021-12-12 07:09] LABS: Glucose, Whole Blood 169 mg/dL (60-115)
--- NOTE | 2021-12-12 07:41 | PHA.MEDREC ---
Pharmacy Consult ? Medication Reconciliation Pharmacy has reviewed the medication reconciliation completed by Chiquita. Patient came in with med list from [facility]. Patient takes Divalproex XR 500 mg QAM and 250 mg @ 1700b instead of 250 mg BID. Patient is on Glucophage XR instead of metformin. Haloperidol 5 mg tablet to be given at 1700 instead of daily with 10 mg tablet. Brenda Gottlieb, PharmD
[2021-12-12] MEDS: Insulin Lispro 100 UNIT/ML 3 ML VIAL SUBCUT ×4 (07:58→21:51)
[2021-12-12] MEDS: Omeprazole 20 MG CAPSULE.DR PO (07:58)
[2021-12-12] MEDS: Enoxaparin Sodium 40 MG/0.4 ML SYRINGE SUBCUT (07:59)
[2021-12-12] MEDS: Divalproex Sodium ER 500 MG TAB.ER.24H PO (07:59)
[2021-12-12] MEDS: 0.9 % Sodium Chloride Flush 3 ML SYRINGE IVFLUSH (08:00)
--- NOTE | 2021-12-12 08:47 | PC.NURSE ---
sara solitario from [facility] ([phone][place] [facility] [place].
[2021-12-12 09:38] LABS: MANUAL DIFF FLAG NO
[2021-12-12 09:40] LABS: Basophils Percent Auto 0.5 % (0-2); Eosinophils Absolute Auto 0.2 X10*3/uL (0.0-0.4); Eosinophils Percent Auto 2.5 % (0-4); Hematocrit 38.5 % (42.0-52.0); Hemoglobin 10.9 g/dl (14.0-18.0); Imm Gran Abs Auto 0.02 X10*3/uL (0.00-0.03); Imm Gran Pct Auto 0.3 % (0.0-0.4); Lymphocytes Percent Auto 16.5 % (20-40); Mean Corpuscular HGB Conc 28.3 g/dl (31.0-36.0); Mean Corpuscular Volume 84.6 fL (80.0-98.0); Mean Platelet Volume 9.9 fL (9.4-12.4); Monocytes Absolute Auto 0.6 X10*3/uL (0.1-1.2); Monocytes Percent Auto 9.7 % (2-11); Neutrophils Absolute Auto 4.3 x10*3/uL (2.0-8.3); Neutrophils Percent Auto 70.5 % (45-73); Platelet Count 418 X10*3/uL (160-400); Red Blood Count 4.55 X10*6/uL (4.60-5.80); Red Cell Distribution Width 19.3 % (11.0-16.0); White Blood Count 6.1 X10*3/uL (4.8-10.8)
[2021-12-12 10:06] LABS: Troponin-I High Sensitivity 6.9 ng/L (<3.5-35.0)
[2021-12-12 10:14] LABS: Anion Gap 12 (12-20); Blood Urea Nitrogen 14 mg/dL (9-16); Calcium 8.4 mg/dL (8.4-10.2); Carbon Dioxide 34 mmol/L (22-29); Chloride 99 mmol/L (96-108); Creatinine Clr Calc Pharmacy 82.1; Estimated Glomerular Filt Rate > 60; Glucose Random 227 mg/dL (60-115); Magnesium 1.9 mg/dL (1.6-2.6); Potassium 4.5 mmol/L (3.3-5.1); Sodium 140 mmol/L (135-145)
[2021-12-12 10:17] LABS: Estimated Average Glucose 235 mg/dL; Hemoglobin A1c % 9.8 %
[2021-12-12] MEDS: Ferrous Sulfate 324 MG TABLET.DR PO ×2 (11:04→20:04)
[2021-12-12] MEDS: Furosemide 40 MG TABLET PO ×2 (11:04→20:04)
[2021-12-12] MEDS: predniSONE 20 MG TABLET 40 MG PO (11:04)
[2021-12-12] MEDS: Atorvastatin Calcium 40 MG TABLET PO (11:05)
[2021-12-12] MEDS: HaloperidoL 5 MG TABLET 10 MG PO ×2 (11:05→20:04)
[2021-12-12] MEDS: HaloperidoL 5 MG TABLET PO (11:05)
[2021-12-12 12:02] LABS: Procalcitonin 0.06 ng/mL
[2021-12-12 12:37] LABS: Glucose, Whole Blood 225 mg/dL (60-115)
--- NOTE | 2021-12-12 12:50 | MHC.MBSS ---
rnn to rn given to mahad wilhelm aware of plan of care for transfer to overflow unit.
--- NOTE | 2021-12-12 13:14 | PC.NURSE ---
RN assumed care at 1300 in overflow unit. Pt alert and oriented, calm and cooperative, noted to be restless at times and repeated questions. Pt re-oriented to situation and being admitted, pt stated an understanding. Pt denies pain. Vitals stable. IV intact. Pt in hospital bed waiting for lunch tray now.
[2021-12-12 13:32] LABS: Appearance Urine CLEAR; Color Urine YELLOW; Glucose Urine UA 250 MG/DL (NEG); Leukocyte Esterase Urine NEG (NEG); Nitrite Urine NEG (NEG); Specific Gravity - Urine 1.015 (1.005-1.025); Urine Blood NEG (NEG); Urine Ketones NEG (NEG); Urine Protein NEG (NEG-TRACE)
--- NOTE | 2021-12-12 13:50 | HO.PM.IMPN ---
Subjective Subjective Date of Service: 12/12/21 Interval History: Dyspnea and cough improved Wants to leave but still on O2 3L Review of Systems Review of Systems: Yes all other systems are reviewed and are negative Physical Exam Vital Signs: Vital Signs: Last Vital Signs Temp 98.2 F 12/12/21 13:13 Pulse 83 12/12/21 13:13 Resp 23 H 12/12/21 13:13 BP 122/77 12/12/21 13:13 Pulse Ox 97 12/12/21 11:01 BMI result Body Mass Index 25.0 Gen: in no acute distress HEENT: sclera anicteric, moist mucus membranes Neck: supple Lungs: mild resp distress, scattered exp wheezing Heart: regular rate and rhythm, no murmurs Abd: soft, non-tender, non-distended Ext: no edema Skin: warm/well-perfused Neuro: alert and oriented to self + place Psych: bizarre affect Objective Data Active Medications Acetaminophen (Acetaminophen 325 Mg Tablet) 650 mg PO Q6H PRN PRN Reason: Pain, Mild (Pain Scale 1-3) Albuterol/Ipratropium (Albuterol/Iprat 2.5/0.5mg 3 Ml Ampul.Neb) 3 ml INHALE RQ4H PRN PRN Reason: Shortness of Breath/Wheezing Albuterol/Ipratropium (Albuterol/Iprat 2.5/0.5mg 3 Ml Ampul.Neb) 3 ml INHALE RQ6H WHILE AWAKE [facility] Last Admin: 12/12/21 08:40 Dose: Not Given Documented by: CEDRIC Non-Admin Reason: Patient Refused Atorvastatin Calcium (Atorvastatin Calcium 40 Mg Tablet) 40 mg PO DAILY [facility] Last Admin: 12/12/21 11:05 Dose: 40 mg Documented by: GLADYS Dextrose (Dextrose 50 % 25 Gm/50 Ml Syringe) 25 gm IVPUSH Q15M PRN; Protocol PRN Reason: per Hypoglycemia Standing Ord. Divalproex Sodium (Divalproex Sodium Er 250 Mg Tab.Er.24h) 250 mg PO DAILY@1700 [facility] Divalproex Sodium (Divalproex Sodium Er 500 Mg Tab.Er.24h) 500 mg PO DAILY [facility] Last Admin: 12/12/21 07:59 Dose: 500 mg Documented by: GLADYS Enoxaparin Sodium (Enoxaparin Sodium 40 Mg/0.4 Ml Syringe) 40 mg SUBCUT Q24H [facility] Last Admin: 12/12/21 07:59 Dose: 40 mg Documented by: GLADYS Ferrous Sulfate (Ferrous Sulfate 324 Mg Tablet.) 324 mg PO BID [facility] Last Admin: 12/12/21 11:04 Dose: 324 mg Documented by: GLADYS Fluticasone Propionate (Fluticasone Propionate Nasal 16 Gm [place]) 1 spray NOSTRIL-B BID [facility] Last Admin: 12/12/21 11:06 Dose: Not Given Documented by: GLADYS Non-Admin Reason: not available Furosemide (Furosemide 40 Mg Tablet) 40 mg PO BID [facility]; Protocol Last Admin: 12/12/21 11:04 Dose: 40 mg Documented by: GLADYS Glucose (Glucose Gel 15 Gm Gel..Gram.) 15 gm PO Q15M PRN; Protocol PRN Reason: per Hypoglycemia Standing Ord. Haloperidol (Haloperidol 5 Mg Tablet) 5 mg PO DAILY@1700 [facility] Last Admin: 12/12/21 11:05 Dose: 5 mg Documented by: GLADYS Haloperidol (Haloperidol 5 Mg Tablet) 10 mg PO BID [facility] Last Admin: 12/12/21 11:05 Dose: 10 mg Documented by: GLADYS Insulin Human Lispro (Insulin Lispro 100 Unit/Ml 3 Ml Vial) 0 unit SUBCUT QIDACHS [facility]; Protocol Last Admin: 12/12/21 13:27 Dose: 4 unit Documented by: FRIEDA Lorazepam (Lorazepam 1 Mg Tablet) 1 mg PO DAILY PRN PRN Reason: Anxiety Melatonin (Melatonin 3 Mg Tablet) 6 mg PO BEDTIME PRN PRN Reason: Insomnia Omeprazole (Omeprazole 20 Mg Capsule.) 20 mg PO DAILY@0630 [facility] Last Admin: 12/12/21 07:58 Dose: 20 mg Documented by: GLADYS Prednisone (Prednisone 20 Mg Tablet) 40 mg PO DAILY [facility] Last Admin: 12/12/21 11:04 Dose: 40 mg Documented by: GLADYS Senna (Sennosides 8.6 Mg Tablet) 17.2 mg PO BEDTIME PRN PRN Reason: Constipation Sodium Chloride (0.9 % Sodium Chloride Flush 3 Ml Syringe) 3 ml IVFLUSH QSHIFT [facility] Last Admin: 12/12/21 08:00 Dose: 3 ml Documented by: RUBIO Labs CBC & Chem 7: 12/12/21 09:15 12/12/21 09:15 Labs: Laboratory Results - last 24 hr 12/11/21 12/11/21 12/11/21 20:05 20:37 20:38 MCV 84.8 MCH 24.1 L MCHC 28.4 L RDW 19.3 H Plt Count 438 H MPV 9.6 Immature Gran % (Auto) 0.2 Neut % (Auto) 50.5 Lymph % (Auto) 33.5 [place] % (Auto) 12.4 H Eos % (Auto) 2.9 Baso % (Auto) 0.5 Lymph # (Auto) 1.4 [place] # (Auto) 0.5 Eos # (Auto) 0.1 Baso # (Auto) 0.0 Abs Immat Gran (auto) 0.01 Absolute Neuts (auto) 2.1 Absolute Nucleated RBC 0.000 Nucleated RBC % (auto) 0.0 PT INR D-Dimer High Sensitivty Anion Gap Estim Creat Clear Calc Estimated GFR POC Glucose 186 H Random Glucose Estimat Average Glucose Hemoglobin A1c % Lactic Acid Calcium Magnesium Total Bilirubin Direct Bilirubin AST ALT Alkaline Phosphatase Troponin I High Sens B-Natriuretic Peptide Total Protein Albumin Lipase Procalcitonin Urine Color Urine Appearance Urine pH Ur Specific [place] Urine Protein Urine Glucose (UA) Urine Ketones Urine Blood Urine Nitrite Ur Leukocyte Esterase COVID-19 (TOMER) Negative COVID-19 Clin Com See Note 12/11/21 12/11/21 12/11/21 20:38 20:38 20:38 MCV MCH MCHC RDW Plt Count MPV Immature Gran % (Auto) Neut % (Auto) Lymph % (Auto) [place] % (Auto) Eos % (Auto) Baso % (Auto) Lymph # (Auto) [place] # (Auto) Eos # (Auto) Baso # (Auto) Abs Immat Gran (auto) Absolute Neuts (auto) Absolute Nucleated RBC Nucleated RBC % (auto) PT 12.4 INR 1.1 D-Dimer High Sensitivty Anion Gap 12 Estim Creat Clear Calc 63.1 Estimated GFR > 60 POC Glucose Random Glucose 203 H Estimat Average Glucose Hemoglobin A1c % Lactic Acid Calcium 8.6 D Magnesium 1.5 L Total Bilirubin 0.2 Direct Bilirubin < 0.2 AST 8 ALT < 6 Alkaline Phosphatase 70 Troponin I High Sens B-Natriuretic Peptide 193 H Total Protein 7.6 Albumin 3.4 L Lipase 61 Procalcitonin Urine Color Urine Appearance Urine pH Ur Specific [place] Urine Protein Urine Glucose (UA) Urine Ketones Urine Blood Urine Nitrite Ur Leukocyte Esterase COVID-19 (TOMER) COVID-19 [facility] 12/11/21 12/11/21 12/11/21 20:38 20:38 20:38 MCV MCH MCHC RDW Plt Count MPV Immature Gran % (Auto) Neut % (Auto) Lymph % (Auto) [place] % (Auto) Eos % (Auto) Baso % (Auto) Lymph # (Auto) [place] # (Auto) Eos # (Auto) Baso # (Auto) Abs Immat Gran (auto) Absolute Neuts (auto) Absolute Nucleated RBC Nucleated RBC % (auto) PT INR D-Dimer High Sensitivty 151 Anion Gap Estim Creat Clear Calc Estimated GFR POC Glucose Random Glucose Estimat Average Glucose Hemoglobin A1c % Lactic Acid 1.5 Calcium Magnesium Total Bilirubin Direct Bilirubin AST ALT Alkaline Phosphatase Troponin I High Sens 8.3 B-Natriuretic Peptide Total Protein Albumin Lipase Procalcitonin Urine Color Urine Appearance Urine pH Ur Specific [place] Urine Protein Urine Glucose (UA) Urine Ketones Urine Blood Urine Nitrite Ur Leukocyte Esterase COVID-19 (TOMER) COVID-19 [employer] 12/11/21 12/12/21 12/12/21 22:11 06:47 06:51 MCV MCH MCHC RDW Plt Count MPV Immature Gran % (Auto) Neut % (Auto) Lymph % (Auto) [place] % (Auto) Eos % (Auto) Baso % (Auto) Lymph # (Auto) [place] # (Auto) Eos # (Auto) Baso # (Auto) Abs Immat Gran (auto) Absolute Neuts (auto) Absolute Nucleated RBC Nucleated RBC % (auto) PT INR D-Dimer High Sensitivty Anion Gap Estim Creat Clear Calc Estimated GFR POC Glucose 202 H 199 H 169 H Random Glucose Estimat Average Glucose Hemoglobin A1c % Lactic Acid Calcium Magnesium Total Bilirubin Direct Bilirubin AST ALT Alkaline Phosphatase Troponin I High Sens B-Natriuretic Peptide Total Protein Albumin Lipase Procalcitonin Urine Color Urine Appearance Urine pH Ur Specific [place] Urine Protein Urine Glucose (UA) Urine Ketones Urine Blood Urine Nitrite Ur Leukocyte Esterase COVID-19 (TOMER) COVID-19 [employer] [facility] 12/12/21 12/12/21 12/12/21 09:15 09:15 09:15 MCV 84.6 MCH 24.0 L MCHC 28.3 L RDW 19.3 H Plt Count 418 H MPV 9.9 Immature Gran % (Auto) 0.3 Neut % (Auto) 70.5 Lymph % (Auto) 16.5 L [place] % (Auto) 9.7 Eos % (Auto) 2.5 Baso % (Auto) 0.5 Lymph # (Auto) 1.0 L [place] # (Auto) 0.6 Eos # (Auto) 0.2 Baso # (Auto) 0.0 Abs Immat Gran (auto) 0.02 Absolute Neuts (auto) 4.3 Absolute Nucleated RBC 0.000 Nucleated RBC % (auto) 0.0 PT INR D-Dimer High Sensitivty Anion Gap 12 Estim Creat Clear Calc 82.1 Estimated GFR > 60 POC Glucose Random Glucose 227 H Estimat Average Glucose Hemoglobin A1c % Lactic Acid Calcium 8.4 Magnesium 1.9 Total Bilirubin Direct Bilirubin AST ALT Alkaline Phosphatase Troponin I High Sens 6.9 B-Natriuretic Peptide Total Protein Albumin Lipase Procalcitonin Urine Color Urine Appearance Urine pH Ur Specific [place] Urine Protein Urine Glucose (UA) Urine Ketones Urine Blood Urine Nitrite Ur Leukocyte Esterase COVID-19 (TOMER) COVID-[employer] 12/12/21 12/12/21 12/12/21 09:15 09:15 12:35 MCV MCH MCHC RDW Plt Count MPV Immature Gran % (Auto) Neut % (Auto) Lymph % (Auto) [place] % (Auto) Eos % (Auto) Baso % (Auto) Lymph # (Auto) [place] # (Auto) Eos # (Auto) Baso # (Auto) Abs Immat Gran (auto) Absolute Neuts (auto) Absolute Nucleated RBC Nucleated RBC % (auto) PT INR D-Dimer High Sensitivty Anion Gap Estim Creat Clear Calc Estimated GFR POC Glucose 225 H Random Glucose Estimat Average Glucose 235 Hemoglobin A1c % 9.8 Lactic Acid Calcium Magnesium Total Bilirubin Direct Bilirubin AST ALT Alkaline Phosphatase Troponin I High Sens B-Natriuretic Peptide Total Protein Albumin Lipase Procalcitonin 0.06 Urine Color Urine Appearance Urine pH Ur Specific [place] Urine Protein Urine Glucose (UA) Urine Ketones Urine Blood Urine Nitrite Ur Leukocyte Esterase COVID-19 (TOMER) COVID-[employer] 12/12/21 13:20 MCV MCH MCHC RDW Plt Count MPV Immature Gran % (Auto) Neut % (Auto) Lymph % (Auto) [place] % (Auto) Eos % (Auto) Baso % (Auto) Lymph # (Auto) [place] # (Auto) Eos # (Auto) Baso # (Auto) Abs Immat Gran (auto) Absolute Neuts (auto) Absolute Nucleated RBC Nucleated RBC % (auto) PT INR D-Dimer High Sensitivty Anion Gap Estim Creat Clear Calc Estimated GFR POC Glucose Random Glucose Estimat Average Glucose Hemoglobin A1c % Lactic Acid Calcium Magnesium Total Bilirubin Direct Bilirubin AST ALT Alkaline Phosphatase Troponin I High Sens B-Natriuretic Peptide Total Protein Albumin Lipase Procalcitonin Urine Color YELLOW Urine Appearance CLEAR Urine pH 7.0 Ur Specific [place] 1.015 Urine Protein NEG Urine Glucose (UA) 250 H Urine Ketones NEG Urine Blood NEG Urine Nitrite NEG Ur Leukocyte Esterase NEG COVID-19 (TOMER) COVID-19 Clin Com Microbiology Microbiology Results: Microbiology 12/11/21 17:52 Blood Culture - Final Blood - Venous Assessment and Plan (1) Acute dyspnea: Status: Acute (2) Hypoxia: Status: Acute Plan hospital d#2 61yo M resident of [facility] with schizophrenia, dyslipidemia, DM2, CHF unknown EF presented with dyspnea, admitted for hypoxia due to suspected reactive airway disease # acute hypoxia - wean O2 as tolerated # reactive airway disease - COPD/asthma? steroids, nebs, flu swab # CHF, unknown EF, chronic - continue oral maint furosemide. # schizophrenia - continue home meds- VPA, haloperidol, lorazepam # DM2, A1c 9.8 - correction lispro # VTE ppx - LMWH In my clinical judgment, the patient requires continued hospitalization for the following reasons: hypoxia Quality Stroke Does the patient have a stroke diagnosis?: No VTE Prior VTE?: No VTE Risk Level:: Medical - moderate - high VTE Device Contraindication: Treatment Not Indicated VTE Drug Contraindication: N/A - Med Ordered
--- NOTE | 2021-12-12 14:31 | MHC.CM.PN ---
Attempted to meet with patient in regards to discharge planning. Patient has a guardian. T/W spoke with Shania, andreiaan, via telephone at [phone]. [facility]. PCP verified. Copy of guardianship obtained from [facility]. Patient received 2 Pfizer vaccines but no boosters. IMM explained and sent to Shania via certified mail. Patient is active with [facility]. Referral made via [employer]. [facility] will transport patient home when medically stable. Continue to monitor for d/c needs.
[2021-12-12] MEDS: LORazepam 1 MG TABLET PO (15:46)
--- NOTE | 2021-12-12 15:49 | PC.NURSE ---
Pt alert and oriented. Pt noted to be yelling at staff, pt threatened RN stating I will kill you I will beat you , pt called RN a bitch , pt told tech fuck you bitch .. Pt non-cooperative with staff. Pt yelling out loud every 5-10 minutes. Pt re-oriented and told multiple times he is admitted and staying in the hospital, pt yelling about staying in the hospital. Pt disruptive to other patients, other patients complained about loud yelling. RN [employer] supervisor made aware, waiting for bed assignment. Pt took 1mg PO Ativan PRN now, see EMAR.
[2021-12-12] MEDS: Divalproex Sodium ER 250 MG TAB.ER.24H PO (17:59)
[2021-12-12 18:00] LABS: Glucose, Whole Blood 199 mg/dL (60-115)
[2021-12-12 21:39] LABS: Glucose, Whole Blood 211 mg/dL (60-115)
[2021-12-12 23:48] LABS: Glucose, Whole Blood 151 mg/dL (60-115)
[2021-12-13] MEDS: 0.9 % Sodium Chloride Flush 3 ML SYRINGE IVFLUSH ×4 (00:13→23:52)
[2021-12-13 03:15] VITALS: BP 103/57; PULSE 56; RESP 19; TEMP 36.4; O2SAT 98
[2021-12-13] MEDS: Omeprazole 20 MG CAPSULE.DR PO (06:09)
[2021-12-13 06:42] LABS: VBG Base Excess 17.6 mmol/L; VBG HCO3 46 mmol/L (22-26); VBG pCO2 77 mmHg; VBG pH 7.39 (7.32-7.43); VBG pO2 51 mmHg
[2021-12-13 06:42] LABS: Venous Blood Gas Refer to POC result
[2021-12-13 06:46] LABS: Hematocrit 39.9 % (42.0-52.0); Hemoglobin 11.1 g/dl (14.0-18.0); Mean Corpuscular HGB Conc 27.8 g/dl (31.0-36.0); Mean Corpuscular Hemoglobin 23.7 pg (27.0-33.0); Mean Corpuscular Volume 85.3 fL (80.0-98.0); Mean Platelet Volume 9.1 fL (9.4-12.4); Platelet Count 406 X10*3/uL (160-400); Red Blood Count 4.68 X10*6/uL (4.60-5.80); White Blood Count 5.2 X10*3/uL (4.8-10.8)
[2021-12-13 07:04] LABS: Anion Gap 8 (12-20); Blood Urea Nitrogen 12 mg/dL (9-16); Calcium 9.3 mg/dL (8.4-10.2); Carbon Dioxide 37 mmol/L (22-29); Chloride 100 mmol/L (96-108); Creatinine Clr Calc Pharmacy 87.2; Estimated Glomerular Filt Rate > 60; Glucose Random 187 mg/dL (60-115); Magnesium 1.9 mg/dL (1.6-2.6); Potassium 4.7 mmol/L (3.3-5.1); Sodium 140 mmol/L (135-145)
[2021-12-13 07:36] LABS: Glucose, Whole Blood 237 mg/dL (60-115)
[2021-12-13] MEDS: Atorvastatin Calcium 40 MG TABLET PO (08:06)
[2021-12-13] MEDS: Divalproex Sodium ER 500 MG TAB.ER.24H PO (08:06)
[2021-12-13] MEDS: Furosemide 40 MG TABLET PO ×2 (08:06→20:20)
[2021-12-13] MEDS: predniSONE 20 MG TABLET 40 MG PO (08:07)
[2021-12-13] MEDS: HaloperidoL 5 MG TABLET 10 MG PO ×2 (08:07→20:20)
[2021-12-13] MEDS: Ferrous Sulfate 324 MG TABLET.DR PO ×2 (08:08→20:20)
[2021-12-13] MEDS: Insulin Lispro 100 UNIT/ML 3 ML VIAL SUBCUT ×5 (08:10→20:20)
[2021-12-13 08:34] VITALS: BP 122/78; PULSE 82; RESP 20; TEMP 36.7; O2SAT 94
[2021-12-13 11:02] VITALS: BP 107/65; PULSE 82; RESP 20; TEMP 36.9; O2SAT 94
[2021-12-13 11:18] LABS: Glucose, Whole Blood 197 mg/dL (60-115)
[2021-12-13 12:01] LABS: Influenza A PCR NEGATIVE (Negative); Influenza B PCR NEGATIVE (Negative); Resp Syncy Virus RNA Qual PCR NEGATIVE (Negative); SARS COV2 PCR INHOUSE NEGATIVE (Negative)
--- NOTE | 2021-12-13 12:55 | HO.PM.IMPN ---
Subjective Subjective Date of Service: 12/13/21 Interval History: Still coughing + requiring O2 though wants to go home Review of Systems Review of Systems: Yes Unobtainable due to mental status Physical Exam Vital Signs: Vital Signs: Last Vital Signs Temp 98.4 F 12/13/21 11:02 Pulse 82 12/13/21 11:02 Resp 20 12/13/21 11:02 BP 107/65 12/13/21 11:02 Pulse Ox 94 12/13/21 11:02 BMI result Body Mass Index 25.0 Gen: in no acute distress HEENT: sclera anicteric, moist mucus membranes Neck: supple Lungs: scattered exp wheezing Heart: regular rate and rhythm, no murmurs Abd: soft, non-tender, non-distended Ext: no edema Skin: warm/well-perfused Neuro: alert and oriented to self + place Psych: bizarre affect Objective Data Active Medications Acetaminophen (Acetaminophen 325 Mg Tablet) 650 mg PO Q6H PRN PRN Reason: Pain, Mild (Pain Scale 1-3) Albuterol/Ipratropium (Albuterol/Iprat 2.5/0.5mg 3 Ml Ampul.Neb) 3 ml INHALE RQ4H PRN PRN Reason: Shortness of Breath/Wheezing Albuterol/Ipratropium (Albuterol/Iprat 2.5/0.5mg 3 Ml Ampul.Neb) 3 ml INHALE RQ6H WHILE AWAKE [facility] Last Admin: 12/13/21 07:49 Dose: Not Given Documented by: LINDA Non-Admin Reason: Patient Refused Atorvastatin Calcium (Atorvastatin Calcium 40 Mg Tablet) 40 mg PO DAILY [facility] Last Admin: 12/13/21 08:06 Dose: 40 mg Documented by: NYA Dextrose (Dextrose 50 % 25 Gm/50 Ml Syringe) 25 gm IVPUSH Q15M PRN; Protocol PRN Reason: per Hypoglycemia Standing Ord. Divalproex Sodium (Divalproex Sodium Er 250 Mg Tab.Er.24h) 250 mg PO DAILY@1700 [facility] Last Admin: 12/12/21 17:59 Dose: 250 mg Documented by: FRIEDA Divalproex Sodium (Divalproex Sodium Er 500 Mg Tab.Er.24h) 500 mg PO DAILY [facility] Last Admin: 12/13/21 08:06 Dose: 500 mg Documented by: NYA Enoxaparin Sodium (Enoxaparin Sodium 40 Mg/0.4 Ml Syringe) 40 mg SUBCUT Q24H [facility] Last Admin: 12/13/21 08:13 Dose: Not Given Documented by: NYA Non-Admin Reason: Patient Refused Ferrous Sulfate (Ferrous Sulfate 324 Mg Tablet.) 324 mg PO BID [facility] Last Admin: 12/13/21 08:08 Dose: 324 mg Documented by: NYA Fluticasone Propionate (Fluticasone Propionate Nasal 16 Gm [place]) 1 spray NOSTRIL-B BID [facility] Last Admin: 12/13/21 08:13 Dose: Not Given Documented by: NYA Non-Admin Reason: Med Not Available Furosemide (Furosemide 40 Mg Tablet) 40 mg PO BID [facility]; Protocol Last Admin: 12/13/21 08:06 Dose: 40 mg Documented by: NYA Glucose (Glucose Gel 15 Gm Gel..Gram.) 15 gm PO Q15M PRN; Protocol PRN Reason: per Hypoglycemia Standing Ord. Haloperidol (Haloperidol 5 Mg Tablet) 5 mg PO DAILY@1700 [facility] Last Admin: 12/12/21 11:05 Dose: 5 mg Documented by: GLADYS Haloperidol (Haloperidol 5 Mg Tablet) 10 mg PO BID [facility] Last Admin: 12/13/21 08:07 Dose: 10 mg Documented by: NYA Insulin Human Lispro (Insulin Lispro 100 Unit/Ml 3 Ml Vial) 0 unit SUBCUT QIDACHS [facility]; Protocol Last Admin: 12/13/21 11:45 Dose: 2 unit Documented by: NYA Lorazepam (Lorazepam 1 Mg Tablet) 1 mg PO DAILY PRN PRN Reason: Anxiety Last Admin: 12/12/21 15:46 Dose: 1 mg Documented by: FRIEDA Melatonin (Melatonin 3 Mg Tablet) 6 mg PO BEDTIME PRN PRN Reason: Insomnia Omeprazole (Omeprazole 20 Mg Capsule.) 20 mg PO DAILY@0630 [facility] Last Admin: 12/13/21 06:09 Dose: 20 mg Documented by: ZAK Prednisone (Prednisone 20 Mg Tablet) 40 mg PO DAILY [facility] Last Admin: 12/13/21 08:07 Dose: 40 mg Documented by: NYA Senna (Sennosides 8.6 Mg Tablet) 17.2 mg PO BEDTIME PRN PRN Reason: Constipation Sodium Chloride (0.9 % Sodium Chloride Flush 3 Ml Syringe) 3 ml IVFLUSH QSHIFT [facility] Last Admin: 12/13/21 08:13 Dose: 3 ml Documented by: NYA Labs CBC & Chem 7: 12/13/21 06:23 12/13/21 06:23 Labs: Laboratory Results - last 24 hr 12/12/21 12/12/21 12/12/21 13:20 17:56 21:31 MCV MCH MCHC RDW Plt Count MPV Absolute Nucleated RBC Nucleated RBC % (auto) VBG pH VBG pCO2 VBG pO2 VBG HCO3 VBG O2 Saturation VBG Base Excess Anion Gap Estim Creat Clear Calc Estimated GFR POC Glucose 199 H 211 H Random Glucose Calcium Magnesium Urine Color YELLOW Urine Appearance CLEAR Urine pH 7.0 Ur Specific [place] 1.015 Urine Protein NEG Urine Glucose (UA) 250 H Urine Ketones NEG Urine Blood NEG Urine Nitrite NEG Ur Leukocyte Esterase NEG Influenza Type A (PCR) Influenza Type B (PCR) RSV RNA Qual (PCR) SARS-CoV-2 RNA (RT-PCR) 12/12/21 12/13/21 12/13/21 23:44 06:23 06:23 MCV 85.3 MCH 23.7 L MCHC 27.8 L RDW 19.0 H Plt Count 406 H MPV 9.1 L Absolute Nucleated RBC 0.000 Nucleated RBC % (auto) 0.0 VBG pH VBG pCO2 VBG pO2 VBG HCO3 VBG O2 Saturation VBG Base Excess Anion Gap 8 L Estim Creat Clear Calc 87.2 Estimated GFR > 60 POC Glucose 151 H Random Glucose 187 H Calcium 9.3 D Magnesium 1.9 Urine Color Urine Appearance Urine pH Ur Specific [place] Urine Protein Urine Glucose (UA) Urine Ketones Urine Blood Urine Nitrite Ur Leukocyte Esterase Influenza Type A (PCR) Influenza Type B (PCR) RSV RNA Qual (PCR) SARS-CoV-2 RNA (RT-PCR) 12/13/21 12/13/21 12/13/21 06:35 07:16 11:03 MCV MCH MCHC RDW Plt Count MPV Absolute Nucleated RBC Nucleated RBC % (auto) VBG pH 7.39 VBG pCO2 77 VBG pO2 51 VBG HCO3 46 H VBG O2 Saturation 74.0 VBG Base Excess 17.6 Anion Gap Estim Creat Clear Calc Estimated GFR POC Glucose 237 H 197 H Random Glucose Calcium Magnesium Urine Color Urine Appearance Urine pH Ur Specific [place] Urine Protein Urine Glucose (UA) Urine Ketones Urine Blood Urine Nitrite Ur Leukocyte Esterase Influenza Type A (PCR) Influenza Type B (PCR) RSV RNA Qual (PCR) SARS-CoV-2 RNA (RT-PCR) 12/13/21 11:10 MCV MCH MCHC RDW Plt Count MPV Absolute Nucleated RBC Nucleated RBC % (auto) VBG pH VBG pCO2 VBG pO2 VBG HCO3 VBG O2 Saturation VBG Base Excess Anion Gap Estim Creat Clear Calc Estimated GFR POC Glucose Random Glucose Calcium Magnesium Urine Color Urine Appearance Urine pH Ur Specific [place] Urine Protein Urine Glucose (UA) Urine Ketones Urine Blood Urine Nitrite Ur Leukocyte Esterase Influenza Type A (PCR) NEGATIVE Influenza Type B (PCR) NEGATIVE RSV RNA Qual (PCR) NEGATIVE SARS-CoV-2 RNA (RT-PCR) NEGATIVE Microbiology Microbiology Results: Microbiology 12/11/21 20:38 Blood Culture - Preliminary Blood - Venous No growth after 24 hours. Assessment and Plan (1) Acute dyspnea: Status: Acute (2) Hypoxia: Status: Acute Plan hospital d=3 61[facility] M [facility] with schizophrenia, dyslipidemia, DM2, CHF unknown EF presented with dyspnea, admitted for hypoxia due to suspected asthma vs COPD # acute hypoxic respiratory failure - wean O2 as tolerated # reactive airway disease - COPD/asthma? steroids, nebs, outpt PFTs # CHF, unknown EF, chronic - continue oral maint furosemide. # schizophrenia - continue home meds- VPA, haloperidol, lorazepam # DM2, A1c 9.8 - correction lispro # VTE ppx - LMWH In my clinical judgment, the patient requires continued hospitalization for the following reasons: hypoxia In my clinical judgment, the patient requires continued hospitalization for the following reasons: hypoxia Quality Stroke Does the patient have a stroke diagnosis?: No VTE Prior VTE?: No VTE Risk Level:: Medical - moderate - high VTE Device Contraindication: Treatment Not Indicated VTE Drug Contraindication: N/A - Med Ordered
[2021-12-13 15:39] VITALS: BP 98/56; PULSE 86; RESP 20; TEMP 36.8; O2SAT 97
[2021-12-13 16:25] LABS: Glucose, Whole Blood 455 mg/dL (60-115)
[2021-12-13] MEDS: HaloperidoL 5 MG TABLET PO (16:36)
[2021-12-13] MEDS: Divalproex Sodium ER 250 MG TAB.ER.24H PO (16:36)
[2021-12-13 18:58] VITALS: BP 97/53; PULSE 88; RESP 20; TEMP 36.8; O2SAT 97
[2021-12-13 20:19] LABS: Glucose, Whole Blood 182 mg/dL (60-115)
[2021-12-13 23:16] VITALS: BP 106/60; PULSE 85; RESP 20; TEMP 36.7; O2SAT 96
[2021-12-14] VITALS (8 sets, daily range): BP systolic 94–120; BP diastolic 58–70; PULSE 60–82; RESP 16–20; TEMP 36.3–36.9; O2SAT 86–100
[2021-12-14] MEDS: Omeprazole 20 MG CAPSULE.DR PO (06:17)
[2021-12-14 07:46] LABS: Glucose, Whole Blood 174 mg/dL (60-115)
--- NOTE | 2021-12-14 08:12 | PC.NURSE ---
07:00 pt refused morning laboratory draws. Pt is shouting, stating I want to go home. 08:00 pt refused morning insulin. Pt is yelling, I don't want any. Close the door.
--- NOTE | 2021-12-14 09:00 | P.CDIC_ITS ---
CDI Concurrent Query Documentation Clarification: PHYSICIAN'S DOCUMENTATION REQUEST Date of Query: 12/14/21902 Patient Name: Khai Bronson Admit Date: 12/11/21 Dear Doctor, Please review the following and provide your response in the progress notes. Clinical Indicators: Risk Factors/Clinical Indicators/Treatments PN: 12/13 - Assessment/plan: Reactive airway disease (COPD/Asthma?) Steroids, nebs, outpt PFT's Based on the above, please clarify in the Progress Notes further specificity regarding the reactive airway disease: Reactive airway disease (Asthma/COPD) with exacerbation or other Reactive airway disease Type: * Mild intermittent * Mild persistent * Moderate persistent * Asthma with underlying COPD and indicate if with acute lower respiratory infection * Other ? please specify * Unable to determine Acuity: * With acute exacerbation or other Use of terms such as suspected, likely, concern for, or probable (associated with a specific diagnosis that is being evaluated, monitored, or treated as if it exists) are acceptable and can be coded in the inpatient setting, when documented at the time of discharge. Thank you, Abigail Torres [facility], [facility] Extension: [phone] Please use your independent medical judgment in providing your response. THIS QUERY IS PART OF THE PERMANENT MEDICAL RECORD Provider Response: Other Other Diagnosis: unable to determine acute exacerbation
[2021-12-14] MEDS: predniSONE 20 MG TABLET 40 MG PO (10:35)
[2021-12-14] MEDS: HaloperidoL 5 MG TABLET PO ×2 (10:35→17:15)
[2021-12-14] MEDS: Atorvastatin Calcium 40 MG TABLET PO (10:35)
[2021-12-14] MEDS: Divalproex Sodium ER 500 MG TAB.ER.24H PO (10:35)
[2021-12-14] MEDS: Furosemide 40 MG TABLET PO ×2 (10:36→21:07)
[2021-12-14] MEDS: HaloperidoL 5 MG TABLET 10 MG PO ×2 (10:36→21:07)
[2021-12-14] MEDS: Ferrous Sulfate 324 MG TABLET.DR PO ×2 (10:36→21:07)
[2021-12-14] MEDS: Enoxaparin Sodium 40 MG/0.4 ML SYRINGE SUBCUT (10:37)
[2021-12-14] MEDS: Insulin Lispro 100 UNIT/ML 3 ML VIAL SUBCUT ×3 (10:37→21:07)
[2021-12-14] MEDS: 0.9 % Sodium Chloride Flush 3 ML SYRINGE IVFLUSH ×2 (10:37→17:15)
--- NOTE | 2021-12-14 12:36 | P.CDIC_ITS ---
CDI Concurrent Query Documentation Clarification: PHYSICIAN'S DOCUMENTATION REQUEST Date of Query: 12/14/21 1236 Patient Name: Khai Bronson Admit Date: 12/11/21 Dear Doctor, A review of the medical record indicates additional documentation may be needed. Please review below and update the documentation accordingly. Clinical Indicators: Risk Factors/Clinical Indicators/Treatments PN: Diabetes mellitus Type 2 A1c 9.8 POC glucose 225 H 445 H Insulin Correction lispro Please clarify the following regarding Diabetes Mellitus (DM): Complications of DM: * Hyperglycemia * Hypoglycemia * Uncontrolled, poorly controlled * No complications of DM * Other complication ? please specify * Unable to determine Use of terms such as suspected, likely, concern for, or probable (associated with a specific diagnosis that is being evaluated, monitored, or treated as if it exists) are acceptable and can be coded in the inpatient setting, when documented at the time of discharge. Thank you, Abigail Torres [facility], [facility] Extension: [phone] Please use your independent medical judgment in providing your response. THIS QUERY IS PART OF THE PERMANENT MEDICAL RECORD Provider Response: Other Other Diagnosis: DM2 + hyperglycemia
--- NOTE | 2021-12-14 13:20 | HO.PM.IMPN ---
Subjective Subjective Date of Service: 12/14/21 Interval History: Still on O2 Breathing improved Review of Systems Review of Systems: Yes all other systems are reviewed and are negative Physical Exam Vital Signs: Vital Signs: Last Vital Signs Temp 97.8 F 12/14/21 11:01 Pulse 77 12/14/21 11:01 Resp 18 12/14/21 11:01 BP 114/66 12/14/21 11:01 Pulse Ox 95 12/14/21 11:01 BMI result Body Mass Index 25.0 Gen: in no acute distress on 1.5L NC HEENT: sclera anicteric, moist mucus membranes Neck: supple Lungs: scattered exp wheezing Heart: regular rate and rhythm, no murmurs Abd: soft, non-tender, non-distended Ext: no edema Skin: warm/well-perfused Neuro: alert and oriented to self + place Psych: bizarre affect, impaired insight Objective Data Active Medications Acetaminophen (Acetaminophen 325 Mg Tablet) 650 mg PO Q6H PRN PRN Reason: Pain, Mild (Pain Scale 1-3) Albuterol/Ipratropium (Albuterol/Iprat 2.5/0.5mg 3 Ml Ampul.Neb) 3 ml INHALE RQ4H PRN PRN Reason: Shortness of Breath/Wheezing Albuterol/Ipratropium (Albuterol/Iprat 2.5/0.5mg 3 Ml Ampul.Neb) 3 ml INHALE RQ6H WHILE AWAKE [facility] Last Admin: 12/14/21 08:12 Dose: Not Given Documented by: GETACHEW Non-Admin Reason: Patient Refused Atorvastatin Calcium (Atorvastatin Calcium 40 Mg Tablet) 40 mg PO DAILY [facility] Last Admin: 12/14/21 10:35 Dose: 40 mg Documented by: MOSHE Dextrose (Dextrose 50 % 25 Gm/50 Ml Syringe) 25 gm IVPUSH Q15M PRN; Protocol PRN Reason: per Hypoglycemia Standing Ord. Divalproex Sodium (Divalproex Sodium Er 250 Mg Tab.Er.24h) 250 mg PO DAILY@1700 [facility] Last Admin: 12/13/21 16:36 Dose: 250 mg Documented by: ARTIS Divalproex Sodium (Divalproex Sodium Er 500 Mg Tab.Er.24h) 500 mg PO DAILY [facility] Last Admin: 12/14/21 10:35 Dose: 500 mg Documented by: MOSHE Enoxaparin Sodium (Enoxaparin Sodium 40 Mg/0.4 Ml Syringe) 40 mg SUBCUT Q24H [facility] Last Admin: 12/14/21 10:37 Dose: 40 mg Documented by: MOSHE Ferrous Sulfate (Ferrous Sulfate 324 Mg Tablet.) 324 mg PO BID [facility] Last Admin: 12/14/21 10:36 Dose: 324 mg Documented by: MOSHE Fluticasone Propionate (Fluticasone Propionate Nasal 16 Gm [place]) 1 spray NOSTRIL-B BID [facility] Last Admin: 12/14/21 10:39 Dose: Not Given Documented by: MOSHE Non-Admin Reason: Patient Refused Furosemide (Furosemide 40 Mg Tablet) 40 mg PO BID [facility]; Protocol Last Admin: 12/14/21 10:36 Dose: 40 mg Documented by: MOSHE Glucose (Glucose Gel 15 Gm Gel..Gram.) 15 gm PO Q15M PRN; Protocol PRN Reason: per Hypoglycemia Standing Ord. Haloperidol (Haloperidol 5 Mg Tablet) 5 mg PO DAILY@1700 [facility] Last Admin: 12/14/21 10:35 Dose: 5 mg Documented by: MOSHE Haloperidol (Haloperidol 5 Mg Tablet) 10 mg PO BID [facility] Last Admin: 12/14/21 10:36 Dose: 10 mg Documented by: MOSHE Insulin Human Lispro (Insulin Lispro 100 Unit/Ml 3 Ml Vial) 0 unit SUBCUT QIDACHS [facility]; Protocol Last Admin: 12/14/21 12:37 Dose: Not Given Documented by: MOSHE Non-Admin Reason: Patient Refused Lorazepam (Lorazepam 1 Mg Tablet) 1 mg PO DAILY PRN PRN Reason: Anxiety Last Admin: 12/12/21 15:46 Dose: 1 mg Documented by: FRIEDA Melatonin (Melatonin 3 Mg Tablet) 6 mg PO BEDTIME PRN PRN Reason: Insomnia Omeprazole (Omeprazole 20 Mg Capsule.) 20 mg PO DAILY@0630 [facility] Last Admin: 12/14/21 06:17 Dose: 20 mg Documented by: KEVIN Prednisone (Prednisone 20 Mg Tablet) 40 mg PO DAILY [facility] Last Admin: 12/14/21 10:35 Dose: 40 mg Documented by: MOSHE Senna (Sennosides 8.6 Mg Tablet) 17.2 mg PO BEDTIME PRN PRN Reason: Constipation Sodium Chloride (0.9 % Sodium Chloride Flush 3 Ml Syringe) 3 ml IVFLUSH QSHIFT [facility] Last Admin: 12/14/21 10:37 Dose: 3 ml Documented by: MOSHE Labs CBC & Chem 7: 12/13/21 06:23 12/13/21 06:23 Labs: Laboratory Results - last 24 hr 12/13/21 12/13/21 12/14/21 16:21 20:13 07:42 POC Glucose 455 H* 182 H 174 H Microbiology Microbiology Results: Microbiology 12/11/21 20:38 Blood Culture - Preliminary Blood - Venous No growth after 48 hours. Assessment and Plan (1) Acute dyspnea: Status: Acute (2) Hypoxia: Status: Acute Plan hospital d=4 61yo M resident of al[facility] with schizophrenia, dyslipidemia, DM2, CHF unknown EF presented with dyspnea, admitted for hypoxia due to suspected asthma vs COPD # acute hypoxic respiratory failure - wean O2 as tolerated # reactive airway disease - COPD/asthma? steroids, nebs, outpt PFTs # CHF, unknown EF, chronic - continue oral maint furosemide # schizophrenia - continue home meds- VPA, haloperidol, lorazepam # DM2, A1c 9.8, uncontrolled with hyperglycemia - correction lispro # VTE ppx - LMWH In my clinical judgment, the patient requires continued hospitalization for the following reasons: hypoxia Quality Stroke Does the patient have a stroke diagnosis?: No VTE Prior VTE?: No VTE Risk Level:: Medical - moderate - high VTE Device Contraindication: Treatment Not Indicated VTE Drug Contraindication: N/A - Med Ordered
[2021-12-14 16:41] LABS: Glucose, Whole Blood 272 mg/dL (60-115)
[2021-12-14] MEDS: Divalproex Sodium ER 250 MG TAB.ER.24H PO (17:15)
[2021-12-14 20:47] LABS: Glucose, Whole Blood 172 mg/dL (60-115)
[2021-12-15] MEDS: 0.9 % Sodium Chloride Flush 3 ML SYRINGE IVFLUSH ×3 (00:20→16:33)
[2021-12-15 03:13] VITALS: BP 132/73; PULSE 66; RESP 16; TEMP 36.5; O2SAT 94
[2021-12-15] MEDS: LORazepam 1 MG TABLET PO (03:15)
[2021-12-15 03:36] LABS: Glucose, Whole Blood 139 mg/dL (60-115)
[2021-12-15] MEDS: Omeprazole 20 MG CAPSULE.DR PO (06:24)
[2021-12-15 07:48] VITALS: BP 97/57; PULSE 70; RESP 20; TEMP 36.4; O2SAT 99
[2021-12-15 08:06] LABS: Glucose, Whole Blood 162 mg/dL (60-115)
[2021-12-15] MEDS: methylPREDNISolone Sod Succ 40 MG/ML VIAL IVPUSH ×2 (08:19→21:30)
[2021-12-15] MEDS: Insulin Lispro 100 UNIT/ML 3 ML VIAL SUBCUT ×4 (08:19→21:30)
[2021-12-15] MEDS: Enoxaparin Sodium 40 MG/0.4 ML SYRINGE SUBCUT (08:24)
[2021-12-15] MEDS: Atorvastatin Calcium 40 MG TABLET PO (10:56)
[2021-12-15] MEDS: Furosemide 40 MG TABLET PO ×2 (10:57→21:30)
[2021-12-15] MEDS: Ferrous Sulfate 324 MG TABLET.DR PO ×2 (10:57→21:30)
[2021-12-15] MEDS: Divalproex Sodium ER 500 MG TAB.ER.24H PO (10:57)
[2021-12-15] MEDS: HaloperidoL 5 MG TABLET 10 MG PO ×2 (10:57→21:30)
[2021-12-15 11:05] VITALS: BP 119/66; PULSE 89; RESP 20; TEMP 36.8; O2SAT 95
[2021-12-15 11:14] LABS: Glucose, Whole Blood 262 mg/dL (60-115)
--- NOTE | 2021-12-15 13:15 | HO.PM.IMPN ---
Subjective Subjective Date of Service: 12/15/21 Interval History: Cough + dyspnea improved Still on O2, though Review of Systems Review of Systems: Yes all other systems are reviewed and are negative Physical Exam Vital Signs: Vital Signs: Last Vital Signs Temp 98.3 F 12/15/21 11:05 Pulse 89 12/15/21 11:05 Resp 20 12/15/21 11:05 BP 119/66 12/15/21 11:05 Pulse Ox 95 12/15/21 11:05 BMI result Body Mass Index 25.0 Gen: in no acute distress on 3L NC HEENT: sclera anicteric, moist mucus membranes Neck: supple Lungs: scattered exp wheezing Heart: regular rate and rhythm, no murmurs Abd: soft, non-tender, non-distended Ext: no edema Skin: warm/well-perfused Neuro: alert and oriented to self + place Psych: bizarre affect, impaired insight Objective Data Active Medications Acetaminophen (Acetaminophen 325 Mg Tablet) 650 mg PO Q6H PRN PRN Reason: Pain, Mild (Pain Scale 1-3) Albuterol/Ipratropium (Albuterol/Iprat 2.5/0.5mg 3 Ml Ampul.Neb) 3 ml INHALE RQ4H PRN PRN Reason: Shortness of Breath/Wheezing Albuterol/Ipratropium (Albuterol/Iprat 2.5/0.5mg 3 Ml Ampul.Neb) 3 ml INHALE RQ6H WHILE AWAKE [facility] Last Admin: 12/15/21 13:11 Dose: Not Given Documented by: GETACHEW Non-Admin Reason: Patient Refused Atorvastatin Calcium (Atorvastatin Calcium 40 Mg Tablet) 40 mg PO DAILY [facility] Last Admin: 12/15/21 10:56 Dose: 40 mg Documented by: MOSHE Dextrose (Dextrose 50 % 25 Gm/50 Ml Syringe) 25 gm IVPUSH Q15M PRN; Protocol PRN Reason: per Hypoglycemia Standing Ord. Divalproex Sodium (Divalproex Sodium Er 250 Mg Tab.Er.24h) 250 mg PO DAILY@1700 [facility] Last Admin: 12/14/21 17:15 Dose: 250 mg Documented by: MOSHE Divalproex Sodium (Divalproex Sodium Er 500 Mg Tab.Er.24h) 500 mg PO DAILY [facility] Last Admin: 12/15/21 10:57 Dose: 500 mg Documented by: MOSHE Enoxaparin Sodium (Enoxaparin Sodium 40 Mg/0.4 Ml Syringe) 40 mg SUBCUT Q24H [facility] Last Admin: 12/15/21 08:24 Dose: 40 mg Documented by: MOSHE Ferrous Sulfate (Ferrous Sulfate 324 Mg Tablet.) 324 mg PO BID [facility] Last Admin: 12/15/21 10:57 Dose: 324 mg Documented by: MOSHE Fluticasone Propionate (Fluticasone Propionate Nasal 16 Gm [place]) 1 spray NOSTRIL-B BID [facility] Last Admin: 12/15/21 10:57 Dose: Not Given Documented by: MOSHE Non-Admin Reason: Patient Refused Furosemide (Furosemide 40 Mg Tablet) 40 mg PO BID [facility]; Protocol Last Admin: 12/15/21 10:57 Dose: 40 mg Documented by: MOSHE Glucose (Glucose Gel 15 Gm Gel..Gram.) 15 gm PO Q15M PRN; Protocol PRN Reason: per Hypoglycemia Standing Ord. Haloperidol (Haloperidol 5 Mg Tablet) 5 mg PO DAILY@1700 [facility] Last Admin: 12/14/21 17:15 Dose: 5 mg Documented by: MOSHE Haloperidol (Haloperidol 5 Mg Tablet) 10 mg PO BID [facility] Last Admin: 12/15/21 10:57 Dose: 10 mg Documented by: MOSHE Insulin Human Lispro (Insulin Lispro 100 Unit/Ml 3 Ml Vial) 0 unit SUBCUT QIDACHS [facility]; Protocol Last Admin: 12/15/21 11:09 Dose: 10 unit Documented by: MOSHE Lorazepam (Lorazepam 1 Mg Tablet) 1 mg PO DAILY PRN PRN Reason: Anxiety Last Admin: 12/15/21 03:15 Dose: 1 mg Documented by: KIMBERLY Melatonin (Melatonin 3 Mg Tablet) 6 mg PO BEDTIME PRN PRN Reason: Insomnia Methylprednisolone Sodium Succinate (Methylprednisolone Sod Succ 40 Mg/Ml Vial) 40 mg IVPUSH Q12H [facility] Last Admin: 12/15/21 08:19 Dose: 40 mg Documented by: MOSHE Omeprazole (Omeprazole 20 Mg Capsule.) 20 mg PO DAILY@0630 [facility] Last Admin: 12/15/21 06:24 Dose: 20 mg Documented by: KIMBERLY Senna (Sennosides 8.6 Mg Tablet) 17.2 mg PO BEDTIME PRN PRN Reason: Constipation Sodium Chloride (0.9 % Sodium Chloride Flush 3 Ml Syringe) 3 ml IVFLUSH QSHIFT [facility] Last Admin: 12/15/21 08:19 Dose: 3 ml Documented by: MOSHE Labs CBC & Chem 7: 12/13/21 06:23 12/13/21 06:23 Labs: Laboratory Results - last 24 hr 12/14/21 12/14/21 12/15/21 16:32 20:43 03:31 POC Glucose 272 H 172 H 139 H 12/15/21 12/15/21 07:47 11:04 POC Glucose 162 H 262 H Assessment and Plan (1) Acute dyspnea: Status: Acute (2) Hypoxia: Status: Acute Plan hospital d=5 61yo M resident of longterm with schizophrenia, dyslipidemia, DM2, CHF unknown EF presented with dyspnea, admitted for hypoxia due to suspected asthma vs COPD # acute hypoxic respiratory failure - wean O2 as tolerated # reactive airway disease - COPD/asthma? continue steroids, nebs, outpt PFTs # CHF, unknown EF, chronic - continue oral maintenance furosemide # schizophrenia - continue home meds- VPA, haloperidol, lorazepam # DM2, A1c 9.8, uncontrolled with hyperglycemia - correction lispro # VTE ppx - LMWH In my clinical judgment, the patient requires continued hospitalization for the following reasons: hypoxia Quality Stroke Does the patient have a stroke diagnosis?: No VTE Prior VTE?: No VTE Risk Level:: Medical - moderate - high VTE Device Contraindication: Treatment Not Indicated VTE Drug Contraindication: N/A - Med Ordered
[2021-12-15 16:00] VITALS: BP 131/62; PULSE 78; RESP 20; TEMP 37.3; O2SAT 96
[2021-12-15 16:02] LABS: Glucose, Whole Blood 291 mg/dL (60-115)
--- NOTE | 2021-12-15 16:10 | MHC.CM.PN ---
Male 61 DX hypoxia No dc today per MD. Patient continues to be weaned from O2. DP return to [facility]. They will provide transportation.
[2021-12-15] MEDS: HaloperidoL 5 MG TABLET PO (16:32)
[2021-12-15] MEDS: Divalproex Sodium ER 250 MG TAB.ER.24H PO (16:32)
[2021-12-15 19:56] VITALS: BP 106/58; PULSE 68; RESP 18; TEMP 37; O2SAT 95
[2021-12-15 20:49] LABS: Glucose, Whole Blood 233 mg/dL (60-115)
[2021-12-15 23:35] VITALS: BP 129/70; PULSE 68; RESP 20; TEMP 36.7; O2SAT 97
[2021-12-16] VITALS (7 sets, daily range): BP systolic 106–143; BP diastolic 58–87; PULSE 76–98; RESP 16–24; TEMP 36.3–37.1; O2SAT 91–100
[2021-12-16] MEDS: 0.9 % Sodium Chloride Flush 3 ML SYRINGE IVFLUSH ×3 (02:35→17:08)
[2021-12-16 08:03] LABS: Glucose, Whole Blood 246 mg/dL (60-115)
[2021-12-16] MEDS: Furosemide 40 MG TABLET PO ×2 (09:25→17:07)
[2021-12-16] MEDS: Omeprazole 20 MG CAPSULE.DR PO (09:25)
[2021-12-16] MEDS: HaloperidoL 5 MG TABLET 10 MG PO ×2 (09:25→21:46)
[2021-12-16] MEDS: Divalproex Sodium ER 500 MG TAB.ER.24H PO (09:25)
[2021-12-16] MEDS: Insulin Lispro 100 UNIT/ML 3 ML VIAL SUBCUT ×3 (09:26→21:46)
[2021-12-16] MEDS: Ferrous Sulfate 324 MG TABLET.DR PO ×2 (09:26→21:46)
[2021-12-16] MEDS: methylPREDNISolone Sod Succ 40 MG/ML VIAL IVPUSH ×2 (09:26→21:46)
[2021-12-16] MEDS: Atorvastatin Calcium 40 MG TABLET PO (09:26)
[2021-12-16] MEDS: Enoxaparin Sodium 40 MG/0.4 ML SYRINGE SUBCUT (09:28)
--- NOTE | 2021-12-16 11:59 | HO.PM.IMPN ---
Subjective Subjective Date of Service: 12/16/21 Interval History: Breathing improved but still requiring O2 Review of Systems Review of Systems: Yes all other systems are reviewed and are negative Physical Exam Vital Signs: Vital Signs: Last Vital Signs Temp 97.4 F 12/16/21 07:22 Pulse 98 12/16/21 07:22 Resp 18 12/16/21 07:22 BP 116/64 12/16/21 07:22 Pulse Ox 100 12/16/21 07:22 BMI result Body Mass Index 25.0 Gen: in no acute distress on 3L NC HEENT: sclera anicteric, moist mucus membranes Neck: supple Lungs: scattered exp wheezing Heart: regular rate and rhythm, no murmurs Abd: soft, non-tender, non-distended Ext: no edema Skin: warm/well-perfused Neuro: alert and oriented to self + place Psych: bizarre affect, impaired insight Objective Data Active Medications Acetaminophen (Acetaminophen 325 Mg Tablet) 650 mg PO Q6H PRN PRN Reason: Pain, Mild (Pain Scale 1-3) Albuterol/Ipratropium (Albuterol/Iprat 2.5/0.5mg 3 Ml Ampul.Neb) 3 ml INHALE RQ4H PRN PRN Reason: Shortness of Breath/Wheezing Albuterol/Ipratropium (Albuterol/Iprat 2.5/0.5mg 3 Ml Ampul.Neb) 3 ml INHALE RQ6H WHILE AWAKE [facility] Last Admin: 12/16/21 08:20 Dose: Not Given Documented by: JESSE Non-Admin Reason: Patient Asleep Atorvastatin Calcium (Atorvastatin Calcium 40 Mg Tablet) 40 mg PO DAILY [facility] Last Admin: 12/16/21 09:26 Dose: 40 mg Documented by: JUAN Dextrose (Dextrose 50 % 25 Gm/50 Ml Syringe) 25 gm IVPUSH Q15M PRN; Protocol PRN Reason: per Hypoglycemia Standing Ord. Divalproex Sodium (Divalproex Sodium Er 250 Mg Tab.Er.24h) 250 mg PO DAILY@1700 [facility] Last Admin: 12/15/21 16:32 Dose: 250 mg Documented by: ARTIS Divalproex Sodium (Divalproex Sodium Er 500 Mg Tab.Er.24h) 500 mg PO DAILY [facility] Last Admin: 12/16/21 09:25 Dose: 500 mg Documented by: JUAN Enoxaparin Sodium (Enoxaparin Sodium 40 Mg/0.4 Ml Syringe) 40 mg SUBCUT Q24H [facility] Last Admin: 12/16/21 09:28 Dose: 40 mg Documented by: JUAN Ferrous Sulfate (Ferrous Sulfate 324 Mg Tablet.) 324 mg PO BID [facility] Last Admin: 12/16/21 09:26 Dose: 324 mg Documented by: JUAN Fluticasone Propionate (Fluticasone Propionate Nasal 16 Gm [place]) 1 spray NOSTRIL-B BID [facility] Last Admin: 12/15/21 21:30 Dose: Not Given Documented by: ARTIS Non-Admin Reason: Patient Refused Furosemide (Furosemide 40 Mg Tablet) 40 mg PO BID [facility]; Protocol Last Admin: 12/16/21 09:25 Dose: 40 mg Documented by: JUAN Glucose (Glucose Gel 15 Gm Gel..Gram.) 15 gm PO Q15M PRN; Protocol PRN Reason: per Hypoglycemia Standing Ord. Haloperidol (Haloperidol 5 Mg Tablet) 5 mg PO DAILY@1700 [facility] Last Admin: 12/15/21 16:32 Dose: 5 mg Documented by: ARTIS Haloperidol (Haloperidol 5 Mg Tablet) 10 mg PO BID [facility] Last Admin: 12/16/21 09:25 Dose: 10 mg Documented by: JUAN Insulin Human Lispro (Insulin Lispro 100 Unit/Ml 3 Ml Vial) 0 unit SUBCUT QIDACHS [facility]; Protocol Last Admin: 12/16/21 09:26 Dose: 7 unit Documented by: JUAN Lorazepam (Lorazepam 1 Mg Tablet) 1 mg PO DAILY PRN PRN Reason: Anxiety Last Admin: 12/15/21 03:15 Dose: 1 mg Documented by: KIMBERLY Melatonin (Melatonin 3 Mg Tablet) 6 mg PO BEDTIME PRN PRN Reason: Insomnia Methylprednisolone Sodium Succinate (Methylprednisolone Sod Succ 40 Mg/Ml Vial) 40 mg IVPUSH Q12H [facility] Last Admin: 12/16/21 09:26 Dose: 40 mg Documented by: JUAN Omeprazole (Omeprazole 20 Mg Capsule.) 20 mg PO DAILY@0630 [facility] Last Admin: 12/16/21 09:25 Dose: 20 mg Documented by: JUAN Senna (Sennosides 8.6 Mg Tablet) 17.2 mg PO BEDTIME PRN PRN Reason: Constipation Sodium Chloride (0.9 % Sodium Chloride Flush 3 Ml Syringe) 3 ml IVFLUSH QSHIFT [facility] Last Admin: 12/16/21 09:32 Dose: 3 ml Documented by: JUAN Labs CBC & Chem 7: 12/13/21 06:23 12/13/21 06:23 Labs: Laboratory Results - last 24 hr 12/15/21 12/15/21 12/16/21 15:55 20:43 07:25 POC Glucose 291 H 233 H 246 H Assessment and Plan (1) Acute dyspnea: Status: Acute (2) Hypoxia: Status: Acute Plan hospital d=6 61[facility] M [facility] with schizophrenia, dyslipidemia, DM2, CHF unknown EF presented with dyspnea, admitted for hypoxia due to suspected asthma vs COPD # acute hypoxic respiratory failure - wean O2 as tolerated # reactive airway disease - COPD/asthma? continue steroids, nebs, outpt PFTs # CHF, unknown EF, chronic - continue oral maintenance furosemide # schizophrenia - continue home meds- VPA, haloperidol, lorazepam # DM2, A1c 9.8, uncontrolled with hyperglycemia - correction lispro # VTE ppx - LMWH In my clinical judgment, the patient requires continued hospitalization for the following reasons: hypoxia Quality Stroke Does the patient have a stroke diagnosis?: No VTE Prior VTE?: No VTE Risk Level:: Medical - moderate - high VTE Device Contraindication: Treatment Not Indicated VTE Drug Contraindication: N/A - Med Ordered
[2021-12-16] MEDS: Albuterol/Iprat 2.5/0.5MG 3 ML AMPUL.NEB INHALE (14:47)
--- NOTE | 2021-12-16 15:47 | PC.NURSE ---
patient napped for a while, allowed nurse to check VS while he was eating. Refused updraft from Respiratory therapy, continues to insist he wants to go home. SaO2 88% on 2 L NC and increased to 93% on O2@2LNC.
[2021-12-16 15:59] LABS: Glucose, Whole Blood 428 mg/dL (60-115)
[2021-12-16] MEDS: HaloperidoL 5 MG TABLET PO (17:08)
[2021-12-16] MEDS: Divalproex Sodium ER 250 MG TAB.ER.24H PO (17:08)
[2021-12-16] MEDS: diphenhydrAMINE HCl 2 % Cream 28 GM TUBE 1 APPL TOPICAL (17:50)
[2021-12-16 20:35] LABS: Glucose, Whole Blood 270 mg/dL (60-115)
[2021-12-17] MEDS: Melatonin 3 MG TABLET 6 MG PO (01:47)
[2021-12-17] MEDS: 0.9 % Sodium Chloride Flush 3 ML SYRINGE IVFLUSH ×2 (01:48→08:29)
[2021-12-17 07:42] VITALS: BP 104/64; PULSE 58; RESP 16; TEMP 36.2; O2SAT 94
[2021-12-17 08:10] LABS: Glucose, Whole Blood 323 mg/dL (60-115)
[2021-12-17] MEDS: Insulin Lispro 100 UNIT/ML 3 ML VIAL SUBCUT (08:28)
[2021-12-17] MEDS: Enoxaparin Sodium 40 MG/0.4 ML SYRINGE SUBCUT (08:28)
[2021-12-17] MEDS: methylPREDNISolone Sod Succ 40 MG/ML VIAL IVPUSH (08:28)
[2021-12-17] MEDS: Omeprazole 20 MG CAPSULE.DR PO (08:29)
[2021-12-17] MEDS: Ferrous Sulfate 324 MG TABLET.DR PO (08:29)
[2021-12-17] MEDS: HaloperidoL 5 MG TABLET 10 MG PO (08:29)
[2021-12-17] MEDS: Divalproex Sodium ER 500 MG TAB.ER.24H PO (08:29)
[2021-12-17] MEDS: Furosemide 40 MG TABLET PO (08:29)
[2021-12-17] MEDS: Atorvastatin Calcium 40 MG TABLET PO (08:29)
--- NOTE | 2021-12-17 09:52 | MHC.CM.PN ---
order for home, self care; CM acknowledge.
--- NOTE | 2021-12-17 10:06 | MHC.CM.PN ---
Called guardian to discuss D/C to senior care; no accurate numbers on file for senior care and no number listed online. Guardian indicates it is [facility] in [place]. Will continue attempt to locate any contact for this senior care. Guardian states senior care will provide transport.
--- NOTE | 2021-12-17 10:16 | MHC.CM.PN ---
Called guardian back to notify her that patient is unable to be D/C'd until CM is supplied w/accurate, working contact numbers for communication purposes for D/C planning. Christian presently at a baseball game and offered numbers to a Kellie Blake ([phone]) and sharon Maldonado ([phone]). Also notified christian that this CM found online this alf is called [facility] in [place], and requested to clarify name of home and numbers found online ([phone]). Christian respnded that Khai is new to me. Will attempt to call new numbers given.
--- NOTE | 2021-12-17 10:49 | MHC.CM.PN ---
Spoke w/Kellie Blake from [facility]; notified of patient's D/C readiness. Kellie requested MD confirmation of 02 D/C. This CM confirmed 02 D/C w/Dr. Michaud and reported back to Kellie. Kellie indicated the [facility] will [facility] patient at 3:00pm this afternoon. This CM notified intensive care unit registered nurse and patient's nurse.
--- NOTE | 2021-12-17 11:30 | PM.DS ---
DS: Providers Provider Date of Service: 12/17/21 Date of admission: 12/11/21 23:05 Date of discharge: 12/17/21 Primary care physician: Keya Andersen MD DS: Diagnosis Discharge Diagnosis (1) Acute dyspnea: Status: Acute (2) Hypoxia: Status: Acute (3) Reactive airway disease with acute exacerbation: Status: Acute DS: Summary Hospital Course Hospital Course: from admission H+P on 12/11/21 by Rocio Gomez: 61-year-old male with a past medical history of? hyperlipidemia, diabetes, CHF, schizophrenia;? presented to the hospital with a chief complaint of shortness of breath.? Patient is a poor historian.? Refused to talk or give the history.? Mentioning we me alone.? ? Patient reported that he has been having shortness of breath out further couple days.? Denies any chest pain or palpitations. Most of the history obtained from the records and ER staff Reportedly patient came to the hospital with chief complaint of cough, shortness of breath.? Denied patient having any fevers.? Denied any GI symptoms.? Review of all other systems is negative except mentioned above ER course: Per ER team patient reportedly noted to have oxygen saturation 70; placed on supplemental oxygen with improvement in oxygenation; CT scan was done which showed no evidence of pulmonary embolism or aspiration pneumonia.? Patient noted to be wheezing; given nebulizations and Solu-Medrol; admitted to the hospital for further management This 61yo M resident of intermediate with schizophrenia, dyslipidemia, DM2, and CHF with unknown EF presented with dyspnea and admitted for hypoxia due to suspected asthma vs COPD. He was treated with supplemental oxygen, steroids, and nebulized bronchodilators. He was weaned off oxygen and discharged on a prednisone taper with prn albuterol inhaler. He will need follow-up with Primary Care in 1 week and Pulmonology in 2 weeks for formal PFT testing. He was discharged back to his intermediate. Time Spent with Patient Time attestation: Total time spent providing and/or coordinating discharge services: Discharge coordination time: Greater than 30 minutes Quality: Safe Use of Opioids Does Pt have an Active Cancer Diagnosis on the Problem List?: No Quality: Stroke Does the patient have a stroke diagnosis?: No Physical Exam Vital Signs: Vital Signs: Last Vital Signs Temp 97.2 F 12/17/21 07:42 Pulse 58 12/17/21 07:42 Resp 16 12/17/21 07:42 BP 104/64 12/17/21 07:42 Pulse Ox 94 12/17/21 07:42 BMI result Body Mass Index 25.0 Gen: in no acute distress on room air HEENT: sclera anicteric, moist mucus membranes Neck: supple Lungs: scattered exp wheezing Heart: regular rate and rhythm, no murmurs Abd: soft, non-tender, non-distended Ext: no edema Skin: warm/well-perfused Neuro: alert and oriented to self + place Psych: bizarre affect, impaired insight DS: Data Data Completed and Pending Completed studies during hospitalization [Text1]: Laboratory Results WBC 5.2 X10*3/uL (4.8-10.8) 12/13/21 06:23 RBC 4.68 X10*6/uL (4.60-5.80) 12/13/21 06:23 Hgb 11.1 g/dl (14.0-18.0) L 12/13/21 06:23 Hct 39.9 % (42.0-52.0) L 12/13/21 06:23 MCV 85.3 fL (80.0-98.0) 12/13/21 06:23 MCH 23.7 pg (27.0-33.0) L 12/13/21 06:23 MCHC 27.8 g/dl (31.0-36.0) L 12/13/21 06:23 RDW 19.0 % (11.0-16.0) H 12/13/21 06:23 Plt Count 406 X10*3/uL (160-400) H 12/13/21 06:23 MPV 9.1 fL (9.4-12.4) L 12/13/21 06:23 Immature Gran % (Auto) 0.3 % (0.0-0.4) 12/12/21 09:15 Neut % (Auto) 70.5 % (45-73) 12/12/21 09:15 Lymph % (Auto) 16.5 % (20-40) L 12/12/21 09:15 [place] % (Auto) 9.7 % (2-11) 12/12/21 09:15 Eos % (Auto) 2.5 % (0-4) 12/12/21 09:15 Baso % (Auto) 0.5 % (0-2) 12/12/21 09:15 Lymph # (Auto) 1.0 X10*3/uL (1.2-4.9) L 12/12/21 09:15 [place] # (Auto) 0.6 X10*3/uL (0.1-1.2) 12/12/21 09:15 Eos # (Auto) 0.2 X10*3/uL (0.0-0.4) 12/12/21 09:15 Baso # (Auto) 0.0 X10*3/uL (0.0-0.2) 12/12/21 09:15 Abs Immat Gran (auto) 0.02 X10*3/uL (0.00-0.03) 12/12/21 09:15 Absolute Neuts (auto) 4.3 x10*3/uL (2.0-8.3) 12/12/21 09:15 Absolute Nucleated RBC 0.000 X10*3/uL (0.0-0.012) 12/13/21 06:23 Nucleated RBC % (auto) 0.0 /100WBC (0.0-0.2) 12/13/21 06:23 PT 12.4 SEC (9.9-13.0) 12/11/21 20:38 INR 1.1 (0.9-1.1) 12/11/21 20:38 D-Dimer High Sensitivty 151 NG/ML 12/11/21 20:38 VBG pH 7.39 (7.32-7.43) 12/13/21 06:35 VBG pCO2 77 mmHg 12/13/21 06:35 VBG pO2 51 mmHg 12/13/21 06:35 VBG HCO3 46 mmol/L (22-26) H 12/13/21 06:35 VBG O2 Saturation 74.0 % 12/13/21 06:35 VBG Base Excess 17.6 mmol/L 12/13/21 06:35 Sodium 140 mmol/L (135-145) 12/13/21 06:23 Potassium 4.7 mmol/L (3.3-5.1) 12/13/21 06:23 Chloride 100 mmol/L (96-108) 12/13/21 06:23 Carbon Dioxide 37 mmol/L (22-29) H 12/13/21 06:23 Anion Gap 8 (12-20) L 12/13/21 06:23 BUN 12 mg/dL (9-16) 12/13/21 06:23 Creatinine 0.81 mg/dL (0.5-1.4) 12/13/21 06:23 Estim Creat Clear Calc 87.2 12/13/21 06:23 Estimated GFR > 60 12/13/21 06:23 POC Glucose 323 mg/dL (60-115) H 12/17/21 07:43 Random Glucose 187 mg/dL (60-115) H 12/13/21 06:23 Estimat Average Glucose 235 mg/dL 12/12/21 09:15 Hemoglobin A1c % 9.8 % 12/12/21 09:15 Lactic Acid 1.5 mmol/L (0.5-2.0) 12/11/21 20:38 Calcium 9.3 mg/dL (8.4-10.2) D 12/13/21 06:23 Magnesium 1.9 mg/dL (1.6-2.6) 12/13/21 06:23 Total Bilirubin 0.2 mg/dL (0.0-1.0) 12/11/21 20:38 Direct Bilirubin < 0.2 mg/dL (0.0-0.5) 12/11/21 20:38 AST 8 U/L (5-37) 12/11/21 20:38 ALT < 6 U/L (0-40) 12/11/21 20:38 Alkaline Phosphatase 70 U/L (39-117) 12/11/21 20:38 Troponin I High Sens 6.9 ng/L (<3.5-35.0) 12/12/21 09:15 B-Natriuretic Peptide 193 pg/mL (<100) H 12/11/21 20:38 Total Protein 7.6 g/dL (6.5-8.0) 12/11/21 20:38 Albumin 3.4 g/dL (3.5-5.0) L 12/11/21 20:38 Lipase 61 U/L (8-78) 12/11/21 20:38 Procalcitonin 0.06 ng/mL 12/12/21 09:15 Urine Color YELLOW 12/12/21 13:20 Urine Appearance CLEAR 12/12/21 13:20 Urine pH 7.0 (5.0-8.0) 12/12/21 13:20 Ur Specific [place] 1.015 (1.005-1.025) 12/12/21 13:20 Urine Protein NEG MG/DL (NEG-TRACE) 12/12/21 13:20 Urine Glucose (UA) 250 MG/DL (NEG) H 12/12/21 13:20 Urine Ketones NEG MG/DL (NEG) 12/12/21 13:20 Urine Blood NEG (NEG) 12/12/21 13:20 Urine Nitrite NEG (NEG) 12/12/21 13:20 Ur Leukocyte Esterase NEG (NEG) 12/12/21 13:20 COVID-19 (TOMER) Negative (Negative) 12/11/21 20:37 COVID-19 Clin Com See Note 12/11/21 20:37 Influenza Type A (PCR) NEGATIVE (Negative) 12/13/21 11:10 Influenza Type B (PCR) NEGATIVE (Negative) 12/13/21 11:10 RSV RNA Qual (PCR) NEGATIVE (Negative) 12/13/21 11:10 SARS-CoV-2 RNA (RT-PCR) NEGATIVE (Negative) 12/13/21 11:10 Impressions Chest X-Ray 12/11/21 18:12 IMPRESSION: Mild progression of the hazy opacities in the right mid and lower lobe. Findings may be related to pneumonia in appropriate clinical setting. Chest CT 12/11/21 19:18 IMPRESSION: Expanded lungs with minimal atelectatic changes as described above. There is no aspiration pneumonia seen. Fleischner guidelines were followed. Discharge Plan Discharge Patient Disposition: Home, Self-Care Discharge Diagnosis: COPD vs asthma exacerbation, hypoxia Referrals: Dimitri Elmore MD [Physician] - 2 Weeks Keya Andersen MD [Primary Care Provider] - 1 Week Discharge Medications: New prednisone 10 mg tablet See Rx Instructions .ROUTE .COMPLEX Qty: 14 0RF Rx Instructions: 40 mg daily x 2 days, then 20 mg daily x 2 days, then 10 mg daily x 2 days, then stop albuterol sulfate 90 mcg/actuation HFA aerosol inhaler 2 puff inhalation Q4-6H PRN (Reason: shortness of breath or wheezing) Qty: 8.5 0RF Rx Instructions: use with spacer device Continued atorvastatin 40 mg tablet 1 tab PO QAM 0RF acetaminophen 325 mg tablet 2 tab PO TID PRN (Reason: pain) 0RF pantoprazole 40 mg tablet,delayed release (DR/EC) 1 tab PO DAILY 0RF haloperidol 10 mg tablet 1 tab PO BID 0RF Januvia 100 mg tablet 1 tab PO DAILY 0RF diacycfw-fefkxvrlz-SS 3.5-10,000-1 mg/mL-unit/mL-% Drops,Suspension 3 drp otic (ear) right QID Qty: 10 0RF furosemide [Lasix] 40 mg tablet 40 mg PO BID Qty: 60 0RF haloperidol 5 mg tablet 1 tab PO DAILY@1700 0RF lorazepam 1 mg tablet 1 tab PO DAILY PRN (Reason: Anxiety) 0RF ferrous sulfate 325 mg (65 mg iron) tablet,delayed release (DR/EC) 1 tab PO BID 0RF fluticasone propionate 50 mcg/actuation Gepp,Suspension 1 spray INTRANASAL BID 0RF divalproex 250 mg tablet extended release 24 hr 250 mg PO DAILY@1700 0RF insulin aspart U-100 [Novolog Flexpen U-100 Insulin] 100 unit/mL (3 mL) insulin pen 0 sliding scale dose subcut BID 0RF Rx Instructions: per sliding scale ibuprofen 200 mg Tablet 400 mg PO Q6H PRN (Reason: Pain) 0RF metformin 500 mg tablet extended release 24 hr 2 tab PO DAILY 0RF divalproex 250 mg tablet extended release 24 hr 500 mg PO DAILY 0RF Discharge Orders: Discharge Order (Routine); Ordered 12/17/21 Ordered By: Chuyita Michaud Diet: advance to usual diet and diabetic diet Activity on Discharge: As tolerated Stand Alone Forms: Patient Portal Discharge page Care Plan Goals: recovery from lung disease flare, diagnosis of underlying lung disease Health Concerns: COPD vs asthma exacerbation, hypoxia Plan of Treatment: prednisone 40 mg daily x 2 days, then 20 mg daily x 2 days, then 10 mg daily x 2 days, then stop albuterol inhaler 2 puffs every 4-6 hours as needed for shortness of breath/wheeze follow up with Primary Care in 1 week, Pulmonology in 2 weeks for pulmonary function testing Assessment: See Discharge Summary Patient Instructions: COPD (Chronic Obstructive Pulmonary Disease) (DC)
== END 2021-12-17 15:49 | disposition home or self-care (01) | DRG 190 ==
LOC: HO.ED 22:37 → HO.EDOVER 23:08 → HO.IMC 12-12 22:30
PROVIDERS: Emergency Medicine; Admitting Provider Hospitalist; Emergency Provider Emergency Medicine; PCP Internal Medicine; Visit Provider Family Medicine
DX: J44.1 Chronic obstructive pulmonary disease with (acute) exacerbation (principal); J96.01 Acute respiratory failure with hypoxia; J45.901 Unspecified asthma with (acute) exacerbation; E78.5 Hyperlipidemia, unspecified; E11.65 Type 2 diabetes mellitus with hyperglycemia; I50.9 Heart failure, unspecified; F20.9 Schizophrenia, unspecified; Z20.822 Contact with and (suspected) exposure to COVID-19; Z87.891 Personal history of nicotine dependence; Z79.4 Long term (current) use of insulin; Z79.51 Long term (current) use of inhaled steroids; Z79.84 Long term (current) use of oral hypoglycemic drugs; Z79.899 Other long term (current) drug therapy
CPT/HCPCS: 0241U; 36415; 71045; 71250; 80048; 80076; 81003; 82803; 82947; 83036; 83605; 83690; 83735; 83880; 84145; 84484; 85025; 85027; 85379; 85610; 87040; 87635; 93005; 94640; 94644; 96365; 96366; 96367; 99285; J1650; J2543; J2920; J2930; J3475

== ENCOUNTER 2022-01-09 10:46 | Inpatient (IN) | payer OTHER, SELFPAY ==
[2022-01-09] VITALS (12 sets, daily range): BP systolic 92–109; BP diastolic 53–68; PULSE 17–117; RESP 12–20; TEMP 36.2–36.7; O2SAT 68–99; BMI 21.8
--- NOTE | ~2022-01-09 | XR_ITS ---
EXAMINATION: XR CHEST CLINICAL INFORMATION: COPD COMPARISON: Previous chest x-ray January 2022 TECHNIQUE: 2 views of the chest were obtained. FINDINGS: The cardiac and mediastinal contours are stable. There are increased linear markings in the left upper lobe, question subsegmental atelectasis or small infiltrate. The lungs are otherwise clear. There is no pleural effusion or pneumothorax. There are degenerative changes of the spine. There are lower posterior rib fractures. XR/XR chest 2V IMPRESSION: Increased linear markings in the left upper lobe questionable for subsegmental atelectasis or small infiltrate.
--- NOTE | ~2022-01-09 | XR_ITS ---
EXAMINATION: XR CHEST CLINICAL INFORMATION: Hypoxic COMPARISON: 12/11/2021 TECHNIQUE: Frontal view of the chest was obtained. FINDINGS: The lungs are well expanded. There is no focal consolidation, edema, or effusion. No pneumothorax. The cardiomediastinal silhouette is within normal limits. No acute osseous abnormality. XR/XR chest 1V IMPRESSION: No acute pulmonary finding.
--- NOTE | ~2022-01-09 | CT_ITS ---
EXAMINATION: CT ANGIOGRAM OF THE CHEST WITH AND WITHOUT CONTRAST (CT PULMONARY ANGIOGRAM FOR PE) CLINICAL INFORMATION: Hypoxemia. COMPARISON: Chest CT scan dated 12/11/2021. TECHNIQUE: Prior to contrast administration, noncontrast localization images were obtained. Subsequently, multidetector volumetric imaging was performed from the thoracic inlet to below the diaphragms following the administration of 65 mL Omnipaque 350 intravenous contrast. No contrast reaction reported Sagittal, coronal, and MIP oblique sagittal reformatted images were obtained on the CT workstation, uploaded to PACS, and reviewed. This CT examination was performed using dose optimization techniques as appropriate, variously including the following: *Automated exposure control *Adjustment of mA and/or kV according to patient size (this includes techniques or standardized protocols for targeted exams where dose is matched to indication/reason for exam; i.e. extremities or head) *Use of iterative reconstruction technique Total exam dose-length product 171 mGy-cm FINDINGS: QUALITY OF STUDY/CONTRAST BOLUS: Satisfactory. PULMONARY ARTERIES: No central or segmental pulmonary emboli. THORACIC AORTA: 4.0 cm in AP dimension (image 20, series 5). No evidence for dissection. LUNGS/PLEURA/AIRWAYS: Very small right pleural effusion and minimal adjacent compressive atelectasis. No significant/suspicious pulmonary nodules. Mild bibasilar linear atelectasis/scarring. The airways are patent. MEDIASTINUM: Normal heart size. No pericardial effusion. No hilar or mediastinal lymphadenopathy. No evidence of septal bowing or right heart strain. CHEST WALL/AXILLA: No axillary or internal mammary lymphadenopathy. OSSEOUS STRUCTURES: Mild multilevel marginal osteophyte formation. No suspicious abnormality. UPPER ABDOMEN: Unremarkable. No reflux of contrast into the hepatic veins to suggest elevated right heart pressures. CT/CT angio chest PE protocol IMPRESSION: 1. No evidence for pulmonary embolism. 2. Trace right pleural effusion and compressive atelectasis. This was not seen on the previous CT scan. Short-term radiographic follow-up, preferably with PA and lateral views is recommended as clinically indicated. 3. Dilatation of the ascending aorta up to 4.0 cm without significant change. No evidence for dissection. VTE: Negative.
--- NOTE | ~2022-01-09 | XR_ITS ---
EXAMINATION: XR CHEST CLINICAL INFORMATION: Hypoxia. Follow-up. COMPARISON: Previous chest x-ray 01/09/[address] 01/11/2022 TECHNIQUE: Frontal view of the chest was obtained. FINDINGS: The cardiac and mediastinal contours are stable. There may be minimal atelectasis at the right lung base. Lungs are otherwise clear. There is no pleural effusion or pneumothorax. There are degenerative changes of the spine. XR/XR chest 1V IMPRESSION: Subsegmental atelectasis at the right lung base.
--- NOTE | 2022-01-09 11:12 | PC.NURSE ---
pt refusing care at this time. pt has a guardian appointed to him, dr pastrana to call. pt lungs dim, SaO2 in the 80s on room air. started on 2L NC and pt at 88%, increased to 3L pt brought up to 90%
[2022-01-09 11:17] LABS: Appearance Urine CLEAR; Color Urine STRAW; Glucose Urine UA NEG (NEG); Leukocyte Esterase Urine NEG (NEG); Nitrite Urine NEG (NEG); Urine Blood NEG (NEG); Urine Ketones NEG (NEG); Urine Protein NEG (NEG-TRACE)
--- NOTE | 2022-01-09 11:21 | PC.NURSE ---
call placed to pts guardian who does not want to force pt to get care . will attempt to offer pt breathing treatment and PO prednisone. if pt continues to refuse, plan to D/c.
--- NOTE | 2022-01-09 11:24 | ED.SOB ---
HPI - SOB/Dyspnea General Chief Complaint: Dyspnea Stated Complaint: SOB 72% @ RA FROM SNF PER EMS Time Seen by Provider: 01/09/22 11:05 Source: EMS Mode of arrival: EMS Limitations: other History of Present Illness HPI Narrative: Patient comes to the emergency room by EMS. Patient comes from a shelter, [facility] in [place]. The staff called EMS because they were drawing blood today, his blood seemed darker than usual. Patient's oxygen saturation was at 83%. When EMS arrived, they checked his oxygen, it was 72% on room air. Patient states that he feels fine, he does not want to be here and is asking to be discharged. Patient has history schizophrenia, diabetes, CHF, was recently discharged from this hospital approximately 3 weeks ago for asthma versus COPD. Patient is a poor historian, and is unwilling to receive any treatment. Patient has a healthcare proxy, who I called, and decided that patient is not to be given any treatment if he refuses. Related Data Home Medications Medication Instructions Recorded Confirmed atorvastatin 40 mg tablet 1 tab PO DAILY 11/06/21 01/09/22 haloperidol 10 mg tablet 1 tab PO BID 11/06/21 01/09/22 pantoprazole 40 mg tablet,delayed 1 tab PO DAILY 11/06/21 01/09/22 release sitagliptin 100 mg tablet (Januvia) 1 tab PO DAILY 11/06/21 01/09/22 divalproex 250 mg tablet,extended 250 mg PO DAILY@1700 12/12/21 01/09/22 release 24 hr divalproex 250 mg tablet,extended 500 mg PO DAILY 12/12/21 01/09/22 release 24 hr ferrous sulfate 325 mg (65 mg 1 tab PO BID 12/12/21 01/09/22 iron) tablet,delayed release fluticasone propionate 50 1 spray INTRANASAL BID 12/12/21 01/09/22 mcg/actuation nasal spray,suspension haloperidol 5 mg tablet 1 tab PO DAILY@1700 12/12/21 01/09/22 insulin aspart U-100 100 unit/mL 0 sliding scale dose SUBCUT BID 12/12/21 01/09/22 (3 mL) subcutaneous pen (Novolog Flexpen U-100 Insulin aspart) lorazepam 1 mg tablet 1 tab PO DAILY PRN 12/12/21 01/09/22 metformin 500 mg tablet 1 tab PO BIDWM 01/09/22 01/09/22 Previous Rx's Medication Instructions Recorded furosemide 40 mg tablet (Lasix) 40 mg PO BID #60 tab 11/08/21 vxtkeuix-akcbwhkxg-zjnfexhwi 3.5 3 drp OTIC (EAR) RIGHT QID #10 ml 11/08/21 mg-10,000 unit/mL-1 % ear drops,susp albuterol sulfate 90 mcg/actuation 2 puff INHALATION 6XD PRN #8.5 g 01/09/22 aerosol inhaler prednisone 50 mg tablet 50 mg PO DAILY #4 tab 01/09/22 Allergies Allergy/AdvReac Type Severity Reaction Status Date / Time No Known Allergies Allergy Verified 11/05/21 22:25 Review of Systems Review of Systems: Constitutional : No Weight loss, No Fever, No Chills, No Night Sweats, No Fatigue, No Malaise ENT/Mouth : No Hearing loss, No Ear Pain, No Nasal Congestion, No Sinus Pain, No Hoarseness, No sore throat, No Rhinorrhea, No Swallowing Difficulty Eyes: No Eye Pain, No Swelling, No Redness, No Foreign Body, No Discharge, No Vision Changes Cardiovascular : No Chest Pain, No SOB, No Dyspnea on Exertion, No Orthopnea, No Edema, No Palpitations Respiratory : No Cough, No Sputum, No Wheezing, No Smoke Exposure, No Dyspnea Gastrointestinal : No Nausea, No Vomiting, No Diarrhea, No Constipation, No abdominal Pain, No Hematochezia, No Melena Genitourinary : no irregular bleeding, No Dysuria, No Urinary Frequency, No Hematuria, No Urinary Incontinence, No Urgency, No Flank Pain, No Urinary Flow Changes, No Hesitancy Musculoskeletal : No joint pain, No Myalgias, No Joint Swelling Skin : No Skin Lesions, No rash Neuro : No Weakness, No Numbness, No Paresthesias, No Loss of Consciousness, No Dizziness, No Headache Psych : No Anxiety/Panic, No Depression, No SI/HI/AH/VH, No Social Issues, Heme/Lymph: No Bruising, No Bleeding,No Lymphadenopathy Endocrine : No Polyuria, No Polydipsia, No Temperature Intolerance PMFSH Past Medical History Medical History (Updated 01/09/22 @ 19:58 by Kumar Gomez MD) Acute dyspnea CHF (congestive heart failure) Diabetes Hypoxia Malignant otitis externa Pneumonia Social History Social History Household Members: Other Housing: Other Housing Other:: Jail Do you presently have visiting nurse or other home services: No Patient Tobacco Use Status: Former Tobacco user Quit Date: 12/07/2021 Tobacco use type: Cigarette Second Hand Smoke Exposure: No Substance Use Type: Former Substance User Advance Directives: No Advance Directives Information Provided: No service: No Current occupational status: disabled Physical Exam Vital Signs: Vital Signs: Last Vital Signs Temp 98.1 F 01/09/22 19:12 Pulse 84 01/09/22 19:12 Resp 12 01/09/22 19:12 BP 103/63 01/09/22 19:12 Pulse Ox 99 01/09/22 19:12 BMI result Body Mass Index 21.8 Const: Other: Appearance: Alert. Oriented X3. No acute distress. Eyes: Pupils equal, round and reactive to light. ENT: Pharynx normal. Neck: Normal inspection. Neck supple. No lymph nodes noted. No crepitus CVS: Normal heart rate and rhythm. Pulses normal. Normal S1 and S2 Respiratory: No respiratory distress. Patient has decreased breath sounds bilaterally, occasional wheezing, poor air movement. Oxygen saturation drops to the low 70s at rest Abdomen: Soft and nontender. No rigidity. No distention. Skin: Skin warm and dry. Normal skin color. Normal skin turgor. Extremities: No lower extremity edema. No Lacerations. No Rash Neuro: Oriented X 3. No motor deficit. No sensory deficit. Moving all extremities. No slurred speech. CN 2 through 12 grossly intact Psych: calm, cooperative, normal affect Course Course Course Narrative: Patient is refusing chest x-ray, refused nebulization treatment, refused blood work. Grudgingly, patient accepted to take p.o. prednisone 60 mg. As mentioned above, on room air, patient's oxygen drops to the low 70s, with exertion or just standing in his room to the low 60s. With an OxyMask, O2 improved to the low 90s. Patient refused admission. It seems that patient does not understand his medical condition. The legal guardian has been invoked, Ms. Yajaira Bhakta. I spoke with the patient's legal guardian, she decided that patient is not to be given any treatment if he refuses. She verbalized that she understands the risk of discharging the patient against medical advise. I discussed with her how dangerous it is to discharge the patient with an oxygen saturation between the 60s and 70s, she understands that patient could have a very negative outcome, including . I discussed the situation with Dr. Del Rosario. We will do an evaluation for home oxygen and then discharge the patient. Patient agreed to the evaluation. We spoke with the shelter where the patient lives, they will take the patient with home oxygen. Respiratory therapist evaluated the patient, patient will be going home with an Oxymizer, patient is 3 L at rest and 6 L with exertion Patient will be giving a prescription for prednisone. Patient's ride is on the way to milk pickup driver the patient, patient will be leaving against medical advise 16:30 patient was ready to be discharged, then the healthcare proxy called and said that she change her mind, patient may receive treatment even if it means sedating the patient or physically restraining him. I discussed the above-mentioned with patient, patient is understandably very upset, since we had told him that he was being discharged. NOw Patient will be admitted. This time, labs and imaging are pending Patient's lactic acid, D-dimer pending. Patient refuses to have his blood drawn. At this time, we do have the healthcare proxy in bold, who states that we can force treatment and labs. We are trying to avoid to agitate the patient, so far we have been able to talk him through things and he has been grudgingly agreeable. We will try to avoid sedating the patient I discussed the patient with Dr. Gomez, patient being admitted. Last time the patient was here with a worst clinical presentation, his D-dimer was negative. Respiratory anderson, patient is doing well on Oxymizer at 3 L. BNP is elevated more than usual, 764, patient received 1 dose of Lasix. Patient does take Lasix at home. MDM - SOB/Dyspnea Lab Data Result diagrams: 01/09/22 18:12 01/09/22 18:12 Labs: Lab Results 01/09/22 01/09/22 01/09/22 Range/Units 11:13 18:12 18:12 WBC 6.7 (4.8-10.8) X10*3/uL RBC 5.33 (4.60-5.80) X10*6/uL Hgb 13.0 L (14.0-18.0) g/dl Hct 44.5 (42.0-52.0) % MCV 83.5 (80.0-98.0) fL MCH 24.4 L (27.0-33.0) pg MCHC 29.2 L (31.0-36.0) g/dl RDW 19.1 H (11.0-16.0) % Plt Count 256 D (160-400) X10*3/uL MPV 9.7 (9.4-12.4) fL Immature Gran % (Auto) 0.2 (0.0-0.4) % Neut % (Auto) 91.8 H (45-73) % Lymph % (Auto) 6.9 L (20-40) % [place] % (Auto) 0.9 L (2-11) % Eos % (Auto) 0.0 (0-4) % Baso % (Auto) 0.2 (0-2) % Lymph # (Auto) 0.5 L (1.2-4.9) X10*3/uL [place] # (Auto) 0.1 (0.1-1.2) X10*3/uL Eos # (Auto) 0.0 (0.0-0.4) X10*3/uL Baso # (Auto) 0.0 (0.0-0.2) X10*3/uL Abs Immat Gran (auto) 0.01 (0.00-0.03) X10*3/uL Absolute Neuts (auto) 6.1 (2.0-8.3) x10*3/uL Absolute Nucleated RBC 0.000 (0.0-0.012) X10*3/uL Nucleated RBC % (auto) 0.0 (0.0-0.2) /100WBC Smear Tech's Comments VERIFIED VBG pH (7.32-7.43) VBG pCO2 mmHg VBG pO2 mmHg VBG HCO3 (22-26) mmol/L VBG O2 Saturation % VBG Base Excess mmol/L Sodium 138 (135-145) mmol/L Potassium 4.7 (3.3-5.1) mmol/L Chloride 93 L (96-108) mmol/L Carbon Dioxide 35 H (22-29) mmol/L Anion Gap 15 (12-20) BUN 16 (9-16) mg/dL Creatinine 1.28 (0.5-1.4) mg/dL Estim Creat Clear Calc 61.0 Estimated GFR 57 Random Glucose 378 H* (60-115) mg/dL Calcium 8.9 (8.4-10.2) mg/dL Total Bilirubin 0.5 (0.0-1.0) mg/dL Direct Bilirubin 0.2 (0.0-0.5) mg/dL AST 14 D (5-37) U/L ALT 11 (0-40) U/L Alkaline Phosphatase 62 (39-117) U/L Troponin I High Sens (<3.5-35.0) ng/L B-Natriuretic Peptide (<100) pg/mL Total Protein 7.5 (6.5-8.0) g/dL Albumin 3.5 (3.5-5.0) g/dL Urine Color STRAW Urine Appearance CLEAR Urine pH 7.0 (5.0-8.0) Ur Specific [place] 1.010 (1.005-1.025) Urine Protein NEG (NEG-TRACE) MG/DL Urine Glucose (UA) NEG (NEG) MG/DL Urine Ketones NEG (NEG) MG/DL Urine Blood NEG (NEG) Urine Nitrite NEG (NEG) Ur Leukocyte Esterase NEG (NEG) COVID-19 (TOMER) (Negative) COVID-19 Clin Com 01/09/22 01/09/22 01/09/22 Range/Units 18:12 18:12 18:12 WBC (4.8-10.8) X10*3/uL RBC (4.60-5.80) X10*6/uL Hgb (14.0-18.0) g/dl Hct (42.0-52.0) % MCV (80.0-98.0) fL MCH (27.0-33.0) pg MCHC (31.0-36.0) g/dl RDW (11.0-16.0) % Plt Count (160-400) X10*3/uL MPV (9.4-12.4) fL Immature Gran % (Auto) (0.0-0.4) % Neut % (Auto) (45-73) % Lymph % (Auto) (20-40) % [place] % (Auto) (2-11) % Eos % (Auto) (0-4) % Baso % (Auto) (0-2) % Lymph # (Auto) (1.2-4.9) X10*3/uL [place] # (Auto) (0.1-1.2) X10*3/uL Eos # (Auto) (0.0-0.4) X10*3/uL Baso # (Auto) (0.0-0.2) X10*3/uL Abs Immat Gran (auto) (0.00-0.03) X10*3/uL Absolute Neuts (auto) (2.0-8.3) x10*3/uL Absolute Nucleated RBC (0.0-0.012) X10*3/uL Nucleated RBC % (auto) (0.0-0.2) /100WBC Smear Tech's Comments VBG pH 7.41 (7.32-7.43) VBG pCO2 63 mmHg VBG pO2 74 mmHg VBG HCO3 41 H (22-26) mmol/L VBG O2 Saturation 91.0 % VBG Base Excess 13.3 mmol/L Sodium (135-145) mmol/L Potassium (3.3-5.1) mmol/L Chloride (96-108) mmol/L Carbon Dioxide (22-29) mmol/L Anion Gap (12-20) BUN (9-16) mg/dL Creatinine (0.5-1.4) mg/dL Estim Creat Clear Calc Estimated GFR Random Glucose (60-115) mg/dL Calcium (8.4-10.2) mg/dL Total Bilirubin (0.0-1.0) mg/dL Direct Bilirubin (0.0-0.5) mg/dL AST (5-37) U/L ALT (0-40) U/L Alkaline Phosphatase (39-117) U/L Troponin I High Sens 12.6 D (<3.5-35.0) ng/L B-Natriuretic Peptide 764 H (<100) pg/mL Total Protein (6.5-8.0) g/dL Albumin (3.5-5.0) g/dL Urine Color Urine Appearance Urine pH (5.0-8.0) Ur Specific [place] (1.005-1.025) Urine Protein (NEG-TRACE) MG/DL Urine Glucose (UA) (NEG) MG/DL Urine Ketones (NEG) MG/DL Urine Blood (NEG) Urine Nitrite (NEG) Ur Leukocyte Esterase (NEG) COVID-19 (TOMER) Negative (Negative) COVID-19 Clin Com See Note Imaging Data Chest x-ray: Radiologist's impression: The lungs are well expanded. There is no focal consolidation, edema, or effusion. No pneumothorax. The cardiomediastinal silhouette is within normal limits. No acute osseous abnormality. XR/XR chest 1V IMPRESSION: No acute pulmonary finding. Discharge Plan Discharge Clinical Impression: Reactive airway disease with acute exacerbation Patient Disposition: Still a Patient
[2022-01-09] MEDS: predniSONE 20 MG TABLET 60 MG PO (11:33)
--- NOTE | 2022-01-09 11:59 | PC.NURSE ---
call placed to Kimi Roy, the director of [facility]. explained to her that the pt is refusing all care, a call was placed to the pts guardian and she also does not want to force the pt to obtain care, she stated If hes refusing I dont want to force him . per dr pastrana, will reach out to our directors regarding care and options. Kimi, director stated ok, sounds good when I explained pts low oxygen saturation and the guardians decision not to give care to the pt. I informed Kimi that the pt will be d/c pending [facility] directors final input.
--- NOTE | 2022-01-09 12:44 | PC.NURSE ---
pt started on 15L via oxy mask, SaO2 came up to 99%
--- NOTE | 2022-01-09 13:47 | PC.NURSE ---
This rn approached patient to inquire if he would be willing to get out of bed for trial ambulation. Pt declined to get out of bed. Had been asleep p/t to this RN arrival. First contact with RN.
--- NOTE | 2022-01-09 14:11 | PC.NURSE ---
pt agreeable to ambulating with staff to determine home O2 needs
--- NOTE | 2022-01-09 16:42 | PC.NURSE ---
This RN spoke to Kellie Blake at [phone] who voiced her concerns about pt returning on oxygen and his respiratory stability. She asked that we contact Yajaira who is his guardian to ask for allowing forced treatment if necessary to stay in hospital. This RN, KRISTY Abarca were witness to MD Mejía phone call with guardian Yajaira who agrees to force treatment on pt if necessary. MD Mejía verbal order to pull ativan, benadryl, and haldol to have for conversation with pt. Security bedside. MD Mejía, this RN and KRISTY Abarca approached pt and informed him of this decision made by his guardian to have to stay. Pt visibly upset, calling Yajaira a bitch, but controlled in his anger. Pt was educated on the plan of care and pt at this time has agreed to cooperate with treatment at this time. pending orders for labs, IV, meds, and imagining at this time
--- NOTE | 2022-01-09 16:43 | ECG_ITS ---
Test Reason : DYSPNEA Blood Pressure : / mmHG Vent. Rate : 080 BPM Atrial Rate : 080 BPM P-R Int : 174 ms QRS Dur : 072 ms QT Int : 466 ms P-R-T Axes : 113 -47 -86 degrees QTc Int : 537 ms Normal sinus rhythm Left anterior fascicular block Lateral infarct , age undetermined ST & Marked T wave abnormality, consider anterior ischemia Prolonged QT Abnormal ECG When compared with ECG of 11-DEC-2021 18:46, Inverted T waves have replaced nonspecific T wave abnormality in Inferior leads Referred By: Juana Mejía Electronically Signed By:СЕРГЕЙ BECERRA
--- NOTE | 2022-01-09 17:51 | PHA.MEDREC ---
Pharmacy Consult ? Medication Reconciliation Pharmacy has completed the medication reconciliation. Med rec obtained from [facility] med list
[2022-01-09 18:19] LABS: Basophils Percent Auto 0.2 % (0-2); Hematocrit 44.5 % (42.0-52.0); Imm Gran Abs Auto 0.01 X10*3/uL (0.00-0.03); Imm Gran Pct Auto 0.2 % (0.0-0.4); Lymphocytes Absolute Auto 0.5 X10*3/uL (1.2-4.9); Lymphocytes Percent Auto 6.9 % (20-40); MANUAL DIFF FLAG SCAN; Mean Corpuscular HGB Conc 29.2 g/dl (31.0-36.0); Mean Corpuscular Hemoglobin 24.4 pg (27.0-33.0); Mean Corpuscular Volume 83.5 fL (80.0-98.0); Mean Platelet Volume 9.7 fL (9.4-12.4); Monocytes Absolute Auto 0.1 X10*3/uL (0.1-1.2); Monocytes Percent Auto 0.9 % (2-11); Neutrophils Absolute Auto 6.1 x10*3/uL (2.0-8.3); Neutrophils Percent Auto 91.8 % (45-73); Platelet Count 256 X10*3/uL (160-400); Red Blood Count 5.33 X10*6/uL (4.60-5.80); Red Cell Distribution Width 19.1 % (11.0-16.0); SCAN SMEAR FLAG 1; White Blood Count 6.7 X10*3/uL (4.8-10.8)
[2022-01-09 18:19] LABS: Venous Blood Gas Refer to POC result
[2022-01-09 18:21] LABS: VBG Base Excess 13.3 mmol/L; VBG HCO3 41 mmol/L (22-26); VBG pCO2 63 mmHg; VBG pH 7.41 (7.32-7.43); VBG pO2 74 mmHg
--- NOTE | 2022-01-09 18:27 | PC.NURSE ---
pt tolerated IV placement and blood draw well. Pt currently eating dinner. Lab called and lactic needs to be recollected. Tech notified to redraw lactic once pt has finished eating dinner. Pt has been calm and cooperative with treatments / interventions thus far. ativan, benadryl and haldol IM meds that were pulled previously were wasted with charge Kirit
[2022-01-09 18:35] LABS: COVID-19 Test Negative (Negative); IDNOW Serial# 16C4AD1C
[2022-01-09 18:44] LABS: B Type Natriuretic Peptide 764 pg/mL (<100); SLIDE REVIEW VERIFIED; Troponin-I High Sensitivity 12.6 ng/L (<3.5-35.0)
[2022-01-09 18:49] LABS: Alanine Aminotransferase 11 U/L (0-40); Albumin Level 3.5 g/dL (3.5-5.0); Alkaline Phosphatase 62 U/L (39-117); Anion Gap 15 (12-20); Aspartate Amino Transferase 14 U/L (5-37); Bilirubin Direct 0.2 mg/dL (0.0-0.5); Bilirubin Total 0.5 mg/dL (0.0-1.0); Blood Urea Nitrogen 16 mg/dL (9-16); Calcium 8.9 mg/dL (8.4-10.2); Carbon Dioxide 35 mmol/L (22-29); Chloride 93 mmol/L (96-108); Estimated Glomerular Filt Rate 57; Glucose Random 378 mg/dL (60-115); Potassium 4.7 mmol/L (3.3-5.1); Sodium 138 mmol/L (135-145); Total Protein 7.5 g/dL (6.5-8.0)
--- NOTE | 2022-01-09 18:56 | PC.NURSE ---
Addendum entered by Karina Guzmán 01/10/22 00:35: report given to KRISTY Berrios Addendum entered by Karina Guzmán 01/09/22 22:27: made aware of BS 390, 10 units of insulin given per protocol. no new order given Addendum entered by Karina Guzmán 01/09/22 22:16: per Dr. Gomez not to give lasix 40mg iv Addendum entered by Karina Guzmán 01/09/22 19:17: pt resting in bed. no signs of acute distress notice. breathing equally unlabored. pt started on continuos cardiac monitoring Original Note: report received from KRISTY Abarca
--- NOTE | 2022-01-09 19:58 | PM.IMHP ---
History of Present Illness Date of Service: 01/09/22 Chief Complaint: Hypoxia 61-year-old male with a past medical history of hyperlipidemia, diabetes, schizophrenia, [place] [facility] resident, recent admission to the hospital for acute hypoxic respiratory failure in the setting of asthma/COPD/CHF; presented to the hospital today with a chief complaint of hypoxia at a [place] [facility]. Patient was noted to be hypoxic to 70s consistently; complaining of shortness of breath. Denies any cough, chest pain or palpitations. Denies any sputum production. Patient denies any GI symptoms. Review of all other systems is negative except mentioned above ER course: Per ER team patient on presentation noted to be tight on examination; placed on supplemental oxygen; on ambulation patient was desatting to 60s; decided to admit to the hospital for further management. Patient was given IV Solu-Medrol and IV Lasix. Chest x-ray showed no acute findings. D-dimer pending. [facility] Medical History (Updated 01/14/22 @ 09:39 by Anthony Hewitt DO) Acute dyspnea Acute respiratory failure Asthma exacerbation CHF (congestive heart failure) Diabetes Hypoxia Malignant otitis externa Pneumonia Pertinent family history: Patient unable to provide information Social History Household Members: Other Housing: Other Housing Other:: [facility] Do you presently have visiting nurse or other home services: No Patient Tobacco Use Status: Former Tobacco user Quit Date: 12/07/2021 Tobacco use type: Cigarette Smoked in Last 30 Days: No Patient Interested in Nicotine Replacement: No Patient Given Instructions on How to Stop Smoking: No Second Hand Smoke Exposure: No Use of substances other than those prescribed or required for medical reasons: No Substance Use Type: Former Substance User Currently Displaying Signs/Symptoms of Drug Intoxication Withdrawal: No Have you been hit, kicked, punched, or otherwise hurt by someone within the past year? If so, by whom?: No Do you feel safe in your current relationship?: No Current Relationship Is there a partner from a previous relationship who is making you feel unsafe now?: No Are you made to feel afraid or neglected: No Advance Directives: No Advance Directives Information Provided: No Do you have thoughts of harming others: None Do you have a plan to hurt others: No Plan Recently lost weight without trying: No How much weight loss: Not applicable Eating poorly because of decreased appetite: No Nutrition screen score: 0 Nutrition Risks: No Nutritional Risk Poor oral hygiene: No service: No Current occupational status: disabled Meds Allergies Allergy/AdvReac Type Severity Reaction Status Date / Time No Known Allergies Allergy Verified 11/05/21 22:25 Home Medications Medication Instructions Recorded Confirmed Last Taken Type atorvastatin 40 mg tablet 1 tab PO DAILY 11/06/21 01/09/22 01/09/22 History haloperidol 10 mg tablet 1 tab PO BID 11/06/21 01/09/22 01/09/22 History pantoprazole 40 mg tablet,delayed 1 tab PO DAILY 11/06/21 01/09/22 01/09/22 History release sitagliptin 100 mg tablet (Januvia) 1 tab PO DAILY 11/06/21 01/09/22 01/09/22 History divalproex 250 mg tablet,extended 250 mg PO DAILY@1700 12/12/21 01/09/22 01/08/22 History release 24 hr divalproex 250 mg tablet,extended 500 mg PO DAILY 12/12/21 01/09/22 01/09/22 History release 24 hr ferrous sulfate 325 mg (65 mg 1 tab PO BID 12/12/21 01/09/22 01/09/22 History iron) tablet,delayed release fluticasone propionate 50 1 spray intranasal BID 12/12/21 01/09/22 01/09/22 History mcg/actuation nasal spray,suspension haloperidol 5 mg tablet 1 tab PO DAILY@1700 12/12/21 01/09/22 01/08/22 History insulin aspart U-100 100 unit/mL 0 sliding scale dose subcut BID 12/12/21 01/09/22 01/09/22 History (3 mL) subcutaneous pen (Novolog hyperglycemia Flexpen U-100 Insulin aspart) lorazepam 1 mg tablet 1 tab PO DAILY PRN Anxiety 12/12/21 01/09/22 01/08/22 History metformin 500 mg tablet 1 tab PO BIDWM 01/09/22 01/09/22 01/09/22 History Physical Exam Vital Signs and Narrative: Vital Signs: Last Vital Signs Temp 98.1 F 01/09/22 19:12 Pulse 84 01/09/22 19:12 Resp 12 01/09/22 19:12 BP 103/63 01/09/22 19:12 Pulse Ox 99 06/07/22 19:12 BMI result Body Mass Index 21.8 Gen: Appears be in no acute distress HEENT: NCAT, Moist mucosa. Pulmonary: Diminished breath sounds. On supplemental oxygen. Speaks in full sentences. CVS: Normal S1-S2 Abdomen: BS+, Soft, Nontender Extremities: Warm well perfused Neuro: Alert and awake. Results Labs CBC and Chem 7: 01/16/22 05:35 03/01/22 16:01 Labs: Laboratory Results - last 24 hr 01/09/22 01/09/22 01/09/22 11:13 18:12 18:12 MCV 83.5 MCH 24.4 L MCHC 29.2 L RDW 19.1 H Plt Count 256 D MPV 9.7 Immature Gran % (Auto) 0.2 Neut % (Auto) 91.8 H Lymph % (Auto) 6.9 L [place] % (Auto) 0.9 L Eos % (Auto) 0.0 Baso % (Auto) 0.2 Lymph # (Auto) 0.5 L [place] # (Auto) 0.1 Eos # (Auto) 0.0 Baso # (Auto) 0.0 Abs Immat Gran (auto) 0.01 Absolute Neuts (auto) 6.1 Absolute Nucleated RBC 0.000 Nucleated RBC % (auto) 0.0 Smear Tech's Comments VERIFIED VBG pH VBG pCO2 VBG pO2 VBG HCO3 VBG O2 Saturation VBG Base Excess Anion Gap 15 Estim Creat Clear Calc 61.0 Estimated GFR 57 Random Glucose 378 H* Calcium 8.9 Total Bilirubin 0.5 Direct Bilirubin 0.2 AST 14 D ALT 11 Alkaline Phosphatase 62 Troponin I High Sens B-Natriuretic Peptide Total Protein 7.5 Albumin 3.5 Urine Color STRAW Urine Appearance CLEAR Urine pH 7.0 Ur Specific [place] 1.010 Urine Protein NEG Urine Glucose (UA) NEG Urine Ketones NEG Urine Blood NEG Urine Nitrite NEG Ur Leukocyte Esterase NEG COVID-19 (TOMER) COVID-19 Clin Com 01/09/22 01/09/22 01/09/22 18:12 18:12 18:12 MCV MCH MCHC RDW Plt Count MPV Immature Gran % (Auto) Neut % (Auto) Lymph % (Auto) [place] % (Auto) Eos % (Auto) Baso % (Auto) Lymph # (Auto) [place] # (Auto) Eos # (Auto) Baso # (Auto) Abs Immat Gran (auto) Absolute Neuts (auto) Absolute Nucleated RBC Nucleated RBC % (auto) Smear Tech's Comments VBG pH 7.41 VBG pCO2 63 VBG pO2 74 VBG HCO3 41 H VBG O2 Saturation 91.0 VBG Base Excess 13.3 Anion Gap Estim Creat Clear Calc Estimated GFR Random Glucose Calcium Total Bilirubin Direct Bilirubin AST ALT Alkaline Phosphatase Troponin I High Sens 12.6 D B-Natriuretic Peptide 764 H Total Protein Albumin Urine Color Urine Appearance Urine pH Ur Specific [place] Urine Protein Urine Glucose (UA) Urine Ketones Urine Blood Urine Nitrite Ur Leukocyte Esterase COVID-19 (TOMER) Negative COVID-19 Clin Com See Note Imaging Radiologist's Impressions: Impressions Chest X-Ray 01/09/22 16:52 IMPRESSION: No acute pulmonary finding. Assessment and Plan (1) Acute respiratory failure: Status: Acute Plan 61-year-old male with a past medical history of schizophrenia, CHF, asthma/COPD, diabetes, hyperlipidemia presented from the [place] [facility] with a chief complaint of acute hypoxia. Noted to have following conditions Acute hypoxic respiratory failure: In the setting of COPD/asthma/CHF. Patient currently on supplemental oxygen. Not in respiratory distress. Supportive care. D-dimer pending Acute asthma/COPD: Patient has no formal diagnosis. Patient is supposed to be following up with pulmonology as outpatient. Patient had similar presentation in December 2021. Recommended outpatient pulmonary function test. Continue Solu-Medrol 40 mg IV DuoNeb standing and p.r.n. Doxycycline Pulmonology consult CHF: No echo noted in the records. Will obtain echocardiogram. Telemetry Daily weights and I's and O's Patient given 40 mg IV Lasix x1. Continue home Lasix 40 mg b.i.d.. Cardiology follow-up Troponin 12.5. EKG nonischemic. Repeat troponin pending. Diabetes/hyperglycemia: Patient has mildly hyperglycemic. No elevated anion gap. Hold p.o. medications. Insulin sliding scale plus Lantus 10 units. History of schizophrenia: Continue home Depakote, haloperidol DVT prophylaxis: Lovenox Code status: Full code. Confirmed with the patient's guardian Yajaira Healthcare proxy was invoked in the ER. Of note: Patient does not wanted to be admitted initially in the ER. ER team invoked healthcare proxy and initially Healthcare proxy also wanted the patient to be sent back to the [place] [facility]. But patient was desaturating on ambulation; Later with repeat discussion by the ER team with the healthcare proxy; decision was made to admit the patient for further management. Quality Stroke Does the patient have a stroke diagnosis?: No VTE Prior VTE?: No VTE Risk Level:: Medical - moderate - high VTE Device Contraindication: Treatment Not Indicated VTE Drug Contraindication: N/A - Med Ordered
[2022-01-09] MEDS: Insulin Glargine,Hum.rec.anlog 100 UNIT/ML 10 ML VIAL 10 UNIT SUBCUT (20:13)
[2022-01-09] MEDS: methylPREDNISolone Sod Succ 125 MG/2 ML VIAL IVPUSH (20:14)
[2022-01-09] MEDS: Furosemide 20 MG/2 ML VIAL IVPUSH (20:14)
[2022-01-09 20:35] LABS: Glucose, Whole Blood 390 mg/dL (60-115)
[2022-01-09 20:35] LABS: Lactic Acid 4.2 mmol/L (0.5-2.0)
[2022-01-09 21:15] LABS: Troponin-I High Sensitivity 11.8 ng/L (<3.5-35.0)
[2022-01-09 21:50] LABS: D Dimer High Sensitivity 180 NG/ML
[2022-01-09] MEDS: 0.9 % Sodium Chloride 500 ML 50 ML IVCONT (22:00)
[2022-01-09] MEDS: Insulin Lispro 100 UNIT/ML 3 ML VIAL SUBCUT (22:02)
[2022-01-09] MEDS: Enoxaparin Sodium 40 MG/0.4 ML SYRINGE SUBCUT (22:03)
[2022-01-09] MEDS: Fluticasone Propionate Nasal 16 GM SPRAY 1 SPRAY NOSTRIL-B (22:04)
[2022-01-09] MEDS: HaloperidoL 5 MG TABLET 10 MG PO (22:04)
[2022-01-09] MEDS: Ferrous Sulfate 324 MG TABLET.DR PO (22:05)
[2022-01-09 22:11] LABS: Reflex Lactate? Lactic Acid Added
--- NOTE | 2022-01-09 22:18 | MHC.CM.PN ---
Addendum entered by Livia Tirado 01/09/22 22:27: Pt recently admitted to [facility] 12/11-12/17 for Hypoxia. Original Note: CM unable to meet with patient, as pt is very agitated at this time secondary to RN attempting to give patient medications. Pt lives at the [facility] in [place] ([phone]), a [facility] longterm for substance abuse-recovery services. Kellie Blake ([phone]). Pt has guardian, Yajaira Wright ([phone]). Guardianship on file. Pt has 2 documented doses of Pfizer, 05/29/21 & 06/19/21. Unable to review IMM w guardian at this time. Pt admitted. Awaiting transfer to room. CM to follow for d/c needs.
[2022-01-09 22:56] LABS: ~Lactic Acid-LAB USE ONLY 4.2 mmol/L (0.5-2.0)
[2022-01-10] VITALS (11 sets, daily range): BP systolic 95–148; BP diastolic 50–87; PULSE 68–93; RESP 17–20; TEMP 36.1–36.7; O2SAT 89–98
[2022-01-10 00:34] LABS: Reflex Lactate? 2 Y
[2022-01-10] MEDS: methylPREDNISolone Sod Succ 40 MG/ML VIAL IVPUSH ×4 (01:25→21:09)
[2022-01-10 03:59] LABS: MANUAL DIFF FLAG NO
[2022-01-10 04:01] LABS: Hematocrit 42.5 % (42.0-52.0); Hemoglobin 12.4 g/dl (14.0-18.0); Imm Gran Abs Auto 0.01 X10*3/uL (0.00-0.03); Imm Gran Pct Auto 0.3 % (0.0-0.4); Lymphocytes Absolute Auto 0.6 X10*3/uL (1.2-4.9); Lymphocytes Percent Auto 16.9 % (20-40); Mean Corpuscular HGB Conc 29.2 g/dl (31.0-36.0); Mean Corpuscular Hemoglobin 24.2 pg (27.0-33.0); Mean Platelet Volume 10.2 fL (9.4-12.4); Monocytes Absolute Auto 0.1 X10*3/uL (0.1-1.2); Monocytes Percent Auto 1.5 % (2-11); Neutrophils Absolute Auto 2.7 x10*3/uL (2.0-8.3); Neutrophils Percent Auto 81.3 % (45-73); Platelet Count 262 X10*3/uL (160-400); Red Blood Count 5.12 X10*6/uL (4.60-5.80); Red Cell Distribution Width 18.6 % (11.0-16.0); White Blood Count 3.4 X10*3/uL (4.8-10.8)
--- NOTE | 2022-01-10 07:00 | CA_ITS ---
Transthoracic Echocardiogram Patient (Last, First, Middle): Khai Bronson, Gender: Male Date of : 1960 Age: 61 Procedure Date: 01/10/2022 Procedure Type: Transthoracic Echocardiogram Location: S3W Height: 172.72 cm Weight: 73.03 kg BSA: 1.86 m2 Heart Rate: bpm BP: 108 / 50 mmHg Counseling [facility] Director: Referring MD: Kumar Gomez MD Symptoms: chf Study Quality: Fair ECG Rhythm: Sinus Conclusions: - The left ventricular systolic function is normal. The visually estimated ejection fraction is between 55-60%. - The basal inferior segment is hypokinetic. - Severely increased right ventricular cavity size. - There is a small loculated pericardial effusion overlying the left ventricle. Findings Left Ventricle Normal left ventricular cavity size. There is mildly increased left ventricular wall thickness. The left ventricular systolic function is normal. The visually estimated ejection fraction is between 55-60%. Diastolic function is normal for age. Wall Motion Rest Echo Findings The basal inferior segment is hypokinetic. Right Ventricle Severely increased right ventricular cavity size. There is normal right ventricular systolic function. Atria The left atrium is normal in size. The right atrium is moderately dilated. Aortic Valve There is a normal trileaflet aortic valve. There is no aortic valve stenosis. There is no aortic valve regurgitation. Mitral Valve The mitral valve appears normal. There is no mitral valve regurgitation. There is no mitral valve stenosis. Pulmonic Valve The pulmonic valve is likely normal. Tricuspid Valve There is mild tricuspid valve regurgitation. The pulmonary artery systolic pressure is normal. Great Vessels The aortic annulus, sinuses of valsalva, and asc aorta are normal in size. Venous The inferior vena cava is normal in size and collapses greater than 50% with inspiration. Pericardium/Pleural There is a small loculated pericardial effusion overlying the left ventricle. Prior Study Comparison No prior study available for comparison. Measurements 2D Linear Measurements IVSd: 1.29 0.6-0.9/0.6-1.0 cm LVIDd: 4.32 3.9-5.3/4.2-5.9 cm LVIDd Index: 2.32 2.4-3.2/2.2-3.1 cm/m2 LVIDs: 2.58 2.0-3.6 cm LVPWd: 1.22 0.7-1.1 cm Ao Root: 3.40 2.1-3.5 cm LA Diam: 3.30 2.7-3.8/3.0-4.0 cm LAIDs Index: 1.77 1.5-2.3 cm/m2 LV Mass: 247.51 67-162/88-224 g LV Mass Index: 133.07 43-95/49-115 g/m2 LVOT Diam: 2.20 3.0+(-)1.3 cm Mitral Valve MV Pk E: 0.85 MV PK A: 0.66 MV Decel Time: 135.00 E/A: 1.30 E'Lateral: 11.00 E'Medial: 7.72 E/E' Med: 11.00 E/E' Lat: 7.70 PHT: 39.00 MVA PHT: 5.64 Decel [place]: 6.31 Aortic Valve AoV Pk Luis: 1.61 AoV Mn Luis: 0.98 AoV VTI: 0.26 AoV Pk Grad: 10.00 Aov Mn Grad: 5.00 FABIO Cont.VTI: 3.11 LVOT LVOT Pk Luis: 1.10 LVOT Mn Luis: 0.70 LVOT VTI: 0.21 LVOT Pk Grad: 5.00 LVOT Mn Grad: 2.00 LVOT Diam: 2.20 LVOT Area: 3.80 Diastolic Function MV Pk E: 0.85 MV Pk A: 0.66 E/A: 1.30 E'Medial: 7.72 E/E' Med: 11.00 E' Laterial: 11.00 E/E' Lat: 7.70 Tricuspid Valve TR Pk Luis: 3.24 TR Pk Grad: 42.00 Great Vessels Aorta Ao Root-2D: 3.40 2.0-3.7 cm Ao Asc: 3.60 2.1-3.4 cm Pulmonary Valve PV Pk Luis: 1.37 Peak PV Grad: 8.00 Updated in Other Vendor System with Status of Final Robin Ocampo MD electronically signed on 01/11/2022 9:41:35 AM with status of Final
[2022-01-10 07:15] LABS: Anion Gap 16 (12-20); Blood Urea Nitrogen 18 mg/dL (9-16); Calcium 8.7 mg/dL (8.4-10.2); Carbon Dioxide 33 mmol/L (22-29); Chloride 93 mmol/L (96-108); Creatinine Clr Calc Pharmacy 60.6; Estimated Glomerular Filt Rate 56; Glucose Random 375 mg/dL (60-115); Potassium 4.4 mmol/L (3.3-5.1); Sodium 138 mmol/L (135-145)
[2022-01-10 07:31] LABS: Glucose, Whole Blood 271 mg/dL (60-115)
[2022-01-10] MEDS: Insulin Lispro 100 UNIT/ML 3 ML VIAL SUBCUT ×4 (07:56→21:10)
[2022-01-10] MEDS: Albuterol/Iprat 2.5/0.5MG 3 ML AMPUL.NEB INHALE ×4 (08:43→19:59)
--- NOTE | 2022-01-10 09:05 | P.CONPL_ITS ---
History of Present Illness History of Present Illness Consult date: 01/10/22 Chief complaint: Acute hypoxic respiratory failure Narrative: This is an inpatient pulmonary consultation. The patient is a 61-year-old male with a past medical history of hyperlipidemia, diabetes, schizophrenia, care home resident, recent admission to the hospital for acute hypoxic respiratory failure in the setting of asthma/COPD/CHF; presented to the hospital today with a chief complaint of hypoxia at a care home.? The patient was noted to be hypoxic to 70s consistently; complaining of shortness of breath.? Denies any cough, chest pain or palpitations.? Denies any sputum production.?In the ER team patient on presentation noted to be tight on examination; placed on supplemental oxygen; on ambulation patient was desatting to 60s; decided to admit to the hospital for further management.? Patient was given IV Solu-Medrol and IV Lasix.? Chest x-ray showed no acute findings.? D-dimer negative. The patient did have a CTA back in September 2021 a [facility] which was negative for any PE. Subsequently admitted back in December 2021 here at [place] we had a CT scan demonstrating evidence of bronchitis and atelectasis. During this admission he had a chest x-ray without any acute disease. The patient is a poor historian. He is also requesting to go home. He is still on high levels of oxygen via the Oxymizer pendant. The degree of hypoxia does not correlate with the finding on the CT scan. Question other etiologies such as aspiration pneumonitis or a [id number] shunt. Also, the patient does have a psychiatric history potential developmental delays and therefore making it difficult for him to agree to undergo testing or take medications. Reluctant to use Solu-Medrol today get his nebulized treatments aimed that he is fine he can go home. After much redirection the patient agreed to take his inhaler nebulizer and hopefully the Solu-Medrol. On examination he does have significant wheezing. Review of Systems Review of Systems: Yes Unobtainable due to mental condition Constitutional: Constitutional: Denies fever(s) Eyes: Eyes: Denies change in vision ENT: Denies dysphagia Cardiovascular: Cardiovascular: Denies chest pain and Reports dyspnea Respiratory: Respiratory: Reports cough and Reports dyspnea Gastrointestinal: Gastrointestinal: Denies dysphagia Musculoskeletal: Musculoskeletal: Denies tingling Neurologic: Denies tingling Hematologic/Lymphatic: Hematologic/Lymphatic: Reports no additional hematologic/lymphatic complaints [facility] Past Medical History Medical History (Updated 01/10/22 @ 09:14 by Paul Gillespie MD) Acute dyspnea Acute respiratory failure Asthma exacerbation CHF (congestive heart failure) Diabetes Hypoxia Malignant otitis externa Pneumonia Social History Social History Household Members: Other Housing: Other Housing Other:: care home Do you presently have visiting nurse or other home services: No Patient Tobacco Use Status: Former Tobacco user Quit Date: 12/07/2021 Tobacco use type: Cigarette Smoked in Last 30 Days: No Patient Interested in Nicotine Replacement: No Patient Given Instructions on How to Stop Smoking: No Second Hand Smoke Exposure: No Use of substances other than those prescribed or required for medical reasons: No Substance Use Type: Former Substance User Currently Displaying Signs/Symptoms of Drug Intoxication Withdrawal: No Have you been hit, kicked, punched, or otherwise hurt by someone within the past year? If so, by whom?: No Do you feel safe in your current relationship?: No Current Relationship Is there a partner from a previous relationship who is making you feel unsafe now?: No Are you made to feel afraid or neglected: No Advance Directives: No Advance Directives Information Provided: No Do you have thoughts of harming others: None Do you have a plan to hurt others: No Plan Recently lost weight without trying: No How much weight loss: Not applicable Eating poorly because of decreased appetite: No Nutrition screen score: 0 Nutrition Risks: No Nutritional Risk Poor oral hygiene: No service: No Current occupational status: disabled Meds Allergies Allergy/AdvReac Type Severity Reaction Status Date / Time No Known Allergies Allergy Verified 11/05/21 22:25 Active Medications: Current Medications Acetaminophen (Acetaminophen 325 Mg Tablet) 650 mg PO Q6H PRN PRN Reason: Pain, Mild (Pain Scale 1-3) Albuterol/Ipratropium (Albuterol/Iprat 2.5/0.5mg 3 Ml Ampul.Neb) 3 ml INHALE Q4H PRN PRN Reason: Shortness of Breath/Wheezing Albuterol/Ipratropium (Albuterol/Iprat 2.5/0.5mg 3 Ml Ampul.Neb) 3 ml INHALE RQ4H WHILE AWAKE FAY Last Admin: 06/08/22 08:43 Dose: 3 ml Atorvastatin Calcium (Atorvastatin Calcium 40 Mg Tablet) 40 mg PO DAILY [facility] Dextrose (Dextrose 50 % 25 Gm/50 Ml Syringe) 25 gm IVPUSH Q15M PRN; Protocol PRN Reason: per Hypoglycemia Standing Ord. Divalproex Sodium (Divalproex Sodium Er 250 Mg Tab.Er.24h) 250 mg PO DAILY@1700 [facility] Divalproex Sodium (Divalproex Sodium Er 500 Mg Tab.Er.24h) 500 mg PO DAILY [facility] Doxycycline Hyclate (Doxycycline Hyclate 100 Mg Tablet) 100 mg PO Q12H [facility] Last Admin: 01/09/22 22:04 Dose: 100 mg Enoxaparin Sodium (Enoxaparin Sodium 40 Mg/0.4 Ml Syringe) 40 mg SUBCUT Q24H [facility] Last Admin: 01/09/22 22:03 Dose: 40 mg Ferrous Sulfate (Ferrous Sulfate 324 Mg Tablet.Dr) 324 mg PO BID [facility] Last Admin: 01/09/22 22:05 Dose: 324 mg Fluticasone Propionate (Fluticasone Propionate Nasal 16 Gm [place]) 1 spray NOS TRIL-B BID [facility] Last Admin: 01/09/22 22:04 Dose: 1 spray Furosemide (Furosemide 40 Mg Tablet) 40 mg PO BID [facility]; Protocol Glucose (Glucose Gel 15 Gm Gel..Gram.) 15 gm PO Q15M PRN; Protocol PRN Reason: per Hypoglycemia Standing Ord. Haloperidol (Haloperidol 5 Mg Tablet) 5 mg PO DAILY@1700 [facility] Haloperidol (Haloperidol 5 Mg Tablet) 10 mg PO BID [facility] Last Admin: 01/09/22 22:04 Dose: 10 mg Insulin Glargine (Insulin Glargine,Hum.Rec.Anlog 100 Unit/Ml 10 Ml Vial) 10 unit SUBCUT BEDTIME [facility] Last Admin: 01/09/22 20:13 Dose: 10 unit Insulin Human Lispro (Insulin Lispro 100 Unit/Ml 3 Ml Vial) 0 unit SUBCUT QIDACHS [facility]; Protocol Last Admin: 01/10/22 07:56 Dose: 6 unit Lorazepam (Lorazepam 1 Mg Tablet) 1 mg PO DAILY PRN PRN Reason: Anxiety Melatonin (Melatonin 3 Mg Tablet) 6 mg PO BEDTIME PRN PRN Reason: Insomnia Methylprednisolone Sodium Succinate (Methylprednisolone Sod Succ 40 Mg/Ml Vial) 40 mg IVPUSH Q6H [facility] Last Admin: 01/10/22 07:59 Dose: Not Given Morphine Sulfate (Morphine Sulfate 4 Mg/Ml Cartridge) 1 mg IVPUSH Q4H PRN; Protocol PRN Reason: Pain, SOB Neomycin/Polymyxin/Hydrocortisone (Neomycin/Polymyxin/Hc Otic Melanie 10 Ml Drpbtl) 3 drop EAR-RIGHT QID [facility] Last Admin: 01/09/22 22:11 Dose: Not Given Omeprazole (Omeprazole 20 Mg Capsule.Dr) 20 mg PO DAILY@0630 [facility] Last Admin: 01/10/22 06:37 Dose: Not Given Senna (Sennosides 8.6 Mg Tablet) 17.2 mg PO BEDTIME PRN PRN Reason: Constipation Sodium Chloride (0.9 % Sodium Chloride Flush 3 Ml Syringe) 3 ml IVFLUSH QSHIFT [facility] Last Admin: 01/10/22 08:07 Dose: Not Given Home Medications Medication Instructions Recorded Confirmed Last Taken Type atorvastatin 40 mg tablet 1 tab PO DAILY 11/06/21 01/09/22 01/09/22 History haloperidol 10 mg tablet 1 tab PO BID 11/06/21 01/09/22 01/09/22 History pantoprazole 40 mg tablet,delayed 1 tab PO DAILY 11/06/21 01/09/22 01/09/22 History release sitagliptin 100 mg tablet (Januvia) 1 tab PO DAILY 11/06/21 01/09/22 01/09/22 History divalproex 250 mg tablet,extended 250 mg PO DAILY@1700 12/12/21 01/09/22 01/08/22 History release 24 hr divalproex 250 mg tablet,extended 500 mg PO DAILY 12/12/21 01/09/22 01/09/22 History release 24 hr ferrous sulfate 325 mg (65 mg 1 tab PO BID 12/12/21 01/09/22 01/09/22 History iron) tablet,delayed release fluticasone propionate 50 1 spray intranasal BID 12/12/21 01/09/22 01/09/22 History mcg/actuation nasal spray,suspension haloperidol 5 mg tablet 1 tab PO DAILY@1700 12/12/21 01/09/22 01/08/22 History insulin aspart U-100 100 unit/mL 0 sliding scale dose subcut BID 12/12/21 01/09/22 01/09/22 History (3 mL) subcutaneous pen (Novolog hyperglycemia Flexpen U-100 Insulin aspart) lorazepam 1 mg tablet 1 tab PO DAILY PRN Anxiety 12/12/21 01/09/22 01/08/22 History metformin 500 mg tablet 1 tab PO BIDWM 01/09/22 01/09/22 01/09/22 History Physical Exam Vital Signs: Vital Signs: Last Vital Signs Temp 97.7 F 01/10/22 08:00 Pulse 87 01/10/22 08:48 Resp 20 01/10/22 08:48 BP 110/61 01/10/22 08:00 Pulse Ox 94 01/10/22 08:00 O2 Del Method 01/10/22 08:00 O2 Flow Rate 3 01/10/22 08:00 BMI result Body Mass Index 21.8 Const: General: comfortable and alert; No cooperative HEENT: Head: Yes normal to inspection Neck: Neck: Yes normal visual inspection and Yes full ROM Chest: Chest palpation & inspection: normal inspection of the chest Resp: Auscultation: wheezes and diminished lung sounds Cardio: Rhythm: regular rhythm Heart sounds: S1 normal heart sound present and S2 normal heart sound present GI: Inspection: Yes normal to inspection : General: Yes no CVA tenderness Back/Spine/Pelvis: Back: no CVA tenderness Skin: Rashes: no rashes Extrem: General: Yes normal to inspection Results Laboratory Findings CBC and BMP: 01/10/22 03:43 01/10/22 03:43 Abnormal lab findings: Abnormal Labs 01/09/22 01/09/22 01/09/22 18:12 18:12 18:12 WBC Hgb 13.0 L MCH 24.4 L MCHC 29.2 L RDW 19.1 H Neut % (Auto) 91.8 H Lymph % (Auto) 6.9 L [place] % (Auto) 0.9 L Lymph # (Auto) 0.5 L VBG HCO3 Chloride 93 L Carbon Dioxide 35 H BUN POC Glucose Random Glucose 378 H* Lactic Acid Lactic Acid F/U @ 2Hr Lactic Acid F/U @ 4Hr B-Natriuretic Peptide 764 H 01/09/22 01/09/22 01/09/22 18:12 20:07 20:31 WBC Hgb MCH MCHC RDW Neut % (Auto) Lymph % (Auto) [place] % (Auto) Lymph # (Auto) VBG HCO3 41 H Chloride Carbon Dioxide BUN POC Glucose 390 H* Random Glucose Lactic Acid 4.2 H* Lactic Acid F/U @ 2Hr Lactic Acid F/U @ 4Hr B-Natriuretic Peptide 01/09/22 01/10/22 01/10/22 22:31 01:12 03:43 WBC 3.4 L Hgb 12.4 L MCH 24.2 L MCHC 29.2 L RDW 18.6 H Neut % (Auto) 81.3 H Lymph % (Auto) 16.9 L [place] % (Auto) 1.5 L Lymph # (Auto) 0.6 L VBG HCO3 Chloride Carbon Dioxide BUN POC Glucose Random Glucose Lactic Acid Lactic Acid F/U @ 2Hr 4.2 H* Lactic Acid F/U @ 4Hr 3.0 H* B-Natriuretic Peptide 01/10/22 01/10/22 03:43 07:25 WBC Hgb MCH MCHC RDW Neut % (Auto) Lymph % (Auto) [place] % (Auto) Lymph # (Auto) VBG HCO3 Chloride 93 L Carbon Dioxide 33 H BUN 18 H POC Glucose 271 H Random Glucose 375 H* Lactic Acid Lactic Acid F/U @ 2Hr Lactic Acid F/U @ 4Hr B-Natriuretic Peptide Assessment and Plan (1) Asthma exacerbation: Status: Acute (2) Acute respiratory failure: Status: Acute (3) CHF (congestive heart failure): Status: Acute Plan Continue Solu-Medrol Diuresis as tolerated She have an echocardiogram also with a bubble study to rule out right to left shunt Continue oxygen supplementation to maintain a pulse ox above 92% Patient is high risk for sleep apnea which could be contributing to his sympto ms. Blood work requested Procedures Date of Service Date of Service: 01/10/22
[2022-01-10] MEDS: Ferrous Sulfate 324 MG TABLET.DR PO ×2 (09:47→21:10)
[2022-01-10] MEDS: Atorvastatin Calcium 40 MG TABLET PO (09:48)
[2022-01-10] MEDS: HaloperidoL 5 MG TABLET 10 MG PO ×2 (09:48→21:09)
[2022-01-10] MEDS: Furosemide 40 MG/4 ML VIAL IVPUSH ×2 (09:48→21:10)
--- NOTE | 2022-01-10 09:59 | MHC.CLN ---
NUTRITION ADDED CARDIAC TO DIET ORDER DUE TO DX CHF AND TAKES FUROSEMIDE. DIET=DIABETIC 2000 KCALS, CARDIAC.
--- NOTE | 2022-01-10 11:04 | P.CONCA_ITS ---
History of Present Illness History of Present Illness Date of Service: 01/10/22 Chief complaint: Acute hypoxic respiratory failure Narrative: This is a cardiology consultation regarding congestive heart failure. Per H and P, listed to have schizophrenia, jail resident, diabetes, hyperlipidemia. It appears that he was brought in because of hypoxia. He was hypoxic to the 70s consistently in complaining of shortness of breath but no chest pain. Then decided to admit. From the cardiac standpoint, patient denies any history of coronary disease or myocardial infarction or any cardiomyopathy. He denies any anginal-type chest pains. Also denies any shortness of breath at this time. In fact he kept repeating the same thing that he would like to get out of here. Review of Systems Review of Systems: Yes all other systems are reviewed and are negative Constitutional: Constitutional: Reports as per HPI Eyes: Eyes: Reports as per HPI ENT: Reports as per HPI Cardiovascular: Cardiovascular: Reports as per HPI, Denies acrocyanosis, Denies cool extremities, Denies chest pain, Denies leg edema, Denies lig htheadedness, Denies palpitations and Denies dyspnea Respiratory: Respiratory: Reports as per HPI, Reports no additional respiratory complaints and Denies dyspnea Gastrointestinal: Gastrointestinal: Reports as per HPI and Reports no additional gastrointestinal complaints Genitourinary: Genitourinary: Reports no additional male genitourinary complaints and Reports as per HPI Musculoskeletal: Musculoskeletal: Reports no additional musculoskeletal complaints and Reports as per HPI Integumentary/Breasts: Skin/Breast: Reports system reviewed and no additional complaints, except as docu Neurologic: Reports system reviewed and no additional complaints, except as documented and Reports as per HPI Psychiatric: Psychiatric: Reports no additional psychiatric complaints and Reports as per HPI Endocrine: Endocrine: Reports no additional endocrine complaints, Reports as per HPI and Denies palpitations Hematologic/Lymphatic: Hematologic/Lymphatic: Reports no additional hematologic/lymphatic complaints and Reports as per HPI Allergic/Immunologic: Allergic/Immunologic: Reports no additional allergic/immunologic complaints and Reports as per HPI [facility] Past Medical History Medical History (Updated 01/10/22 @ 11:13 by Robin Ocampo MD) Acute dyspnea Acute respiratory failure Asthma exacerbation CHF (congestive heart failure) Diabetes Hypoxia Malignant otitis externa Pneumonia Family History Pertinent family history: Patient not able to give any information about family history. Social History Social History Household Members: Other Housing: Other Housing Other:: jail Do you presently have visiting nurse or other home services: No Patient Tobacco Use Status: Former Tobacco user Quit Date: 12/07/2021 Tobacco use type: Cigarette Smoked in Last 30 Days: No Patient Interested in Nicotine Replacement: No Patient Given Instructions on How to Stop Smoking: No Second Hand Smoke Exposure: No Use of substances other than those prescribed or required for medical reasons: No Substance Use Type: Former Substance User Currently Displaying Signs/Symptoms of Drug Intoxication Withdrawal: No Have you been hit, kicked, punched, or otherwise hurt by someone within the past year? If so, by whom?: No Do you feel safe in your current relationship?: No Current Relationship Is there a partner from a previous relationship who is making you feel unsafe now?: No Are you made to feel afraid or neglected: No Advance Directives: No Advance Directives Information Provided: No Do you have thoughts of harming others: None Do you have a plan to hurt others: No Plan Recently lost weight without trying: No How much weight loss: Not applicable Eating poorly because of decreased appetite: No Nutrition screen score: 0 Nutrition Risks: No Nutritional Risk Poor oral hygiene: No service: No Current occupational status: disabled Meds Allergies Allergy/AdvReac Type Severity Reaction Status Date / Time No Known Allergies Allergy Verified 11/05/21 22:25 Active Medications: Current Medications Acetaminophen (Acetaminophen 325 Mg Tablet) 650 mg PO Q6H PRN PRN Reason: Pain, Mild (Pain Scale 1-3) Albuterol/Ipratropium (Albuterol/Iprat 2.5/0.5mg 3 Ml Ampul.Neb) 3 ml INHALE Q4H PRN PRN Reason: Shortness of Breath/Wheezing Albuterol/Ipratropium (Albuterol/Iprat 2.5/0.5mg 3 Ml Ampul.Neb) 3 ml INHALE RQ4H WHILE AWAKE FAY Last Admin: 01/10/22 08:43 Dose: 3 ml Atorvastatin Calcium (Atorvastatin Calcium 40 Mg Tablet) 40 mg PO DAILY FAY Last Admin: 01/10/22 09:48 Dose: 40 mg Dextrose (Dextrose 50 % 25 Gm/50 Ml Syringe) 25 gm IVPUSH Q15M PRN; Protocol PRN Reason: per Hypoglycemia Standing Ord. Divalproex Sodium (Divalproex Sodium Er 250 Mg Tab.Er.24h) 250 mg PO DAILY@1700 [facility] Divalproex Sodium (Divalproex Sodium Er 500 Mg Tab.Er.24h) 500 mg PO DAILY [facility] Doxycycline Hyclate (Doxycycline Hyclate 100 Mg Tablet) 100 mg PO Q12H [facility] Last Admin: 01/10/22 09:47 Dose: 100 mg Enoxaparin Sodium (Enoxaparin Sodium 40 Mg/0.4 Ml Syringe) 40 mg SUBCUT Q24H [facility] Last Admin: 01/09/22 22:03 Dose: 40 mg Ferrous Sulfate (Ferrous Sulfate 324 Mg Tablet.Dr) 324 mg PO BID [facility] Last Admin: 01/10/22 09:47 Dose: 324 mg Fluticasone Propionate (Fluticasone Propionate Nasal 16 Gm Red Bud) 1 spray NOST RIL-B BID [facility] Last Admin: 01/09/22 22:04 Dose: 1 spray Furosemide (Furosemide 40 Mg Tablet) 40 mg PO BID [facility]; Protocol Last Admin: 01/10/22 09:59 Dose: Not Given Glucose (Glucose Gel 15 Gm Gel..Gram.) 15 gm PO Q15M PRN; Protocol PRN Reason: per Hypoglycemia Standing Ord. Haloperidol (Haloperidol 5 Mg Tablet) 5 mg PO DAILY@1700 [facility] Haloperidol (Haloperidol 5 Mg Tablet) 10 mg PO BID [facility] Last Admin: 01/10/22 09:48 Dose: 10 mg Insulin Glargine (Insulin Glargine,Hum.Rec.Anlog 100 Unit/Ml 10 Ml Vial) 10 unit SUBCUT BEDTIME [facility] Last Admin: 01/09/22 20:13 Dose: 10 unit Insulin Human Lispro (Insulin Lispro 100 Unit/Ml 3 Ml Vial) 0 unit SUBCUT QIDACHS [facility]; Protocol Last Admin: 01/10/22 07:56 Dose: 6 unit Lorazepam (Lorazepam 1 Mg Tablet) 1 mg PO DAILY PRN PRN Reason: Anxiety Melatonin (Melatonin 3 Mg Tablet) 6 mg PO BEDTIME PRN PRN Reason: Insomnia Methylprednisolone Sodium Succinate (Methylprednisolone Sod Succ 40 Mg/Ml Vial) 40 mg IVPUSH Q6H [facility] Last Admin: 01/10/22 09:48 Dose: 40 mg Morphine Sulfate (Morphine Sulfate 4 Mg/Ml Cartridge) 1 mg IVPUSH Q4H PRN; Protocol PRN Reason: Pain, SOB Neomycin/Polymyxin/Hydrocortisone (Neomycin/Polymyxin/Hc Otic Melanie 10 Ml Drpbtl) 3 drop EAR-RIGHT QID [facility] Last Admin: 01/09/22 22:11 Dose: Not Given Omeprazole (Omeprazole 20 Mg Capsule.Dr) 20 mg PO DAILY@0630 [facility] Last Admin: 01/10/22 06:37 Dose: Not Given Senna (Sennosides 8.6 Mg Tablet) 17.2 mg PO BEDTIME PRN PRN Reason: Constipation Sodium Chloride (0.9 % Sodium Chloride Flush 3 Ml Syringe) 3 ml IVFLUSH QSHIFT [facility] Last Admin: 01/10/22 08:07 Dose: Not Given Home Medications Medication Instructions Recorded Confirmed Last Taken Type atorvastatin 40 mg tablet 1 tab PO DAILY 11/06/21 01/09/22 01/09/22 History haloperidol 10 mg tablet 1 tab PO BID 11/06/21 01/09/22 01/09/22 History pantoprazole 40 mg tablet,delayed 1 tab PO DAILY 11/06/21 01/09/22 01/09/22 History release sitagliptin 100 mg tablet (Januvia) 1 tab PO DAILY 11/06/21 01/09/22 01/09/22 History divalproex 250 mg tablet,extended 250 mg PO DAILY@1700 12/12/21 01/09/22 01/08/22 History release 24 hr divalproex 250 mg tablet,extended 500 mg PO DAILY 12/12/21 01/09/22 01/09/22 History release 24 hr ferrous sulfate 325 mg (65 mg 1 tab PO BID 12/12/21 01/09/22 01/09/22 History iron) tablet,delayed release fluticasone propionate 50 1 spray intranasal BID 12/12/21 01/09/22 01/09/22 History mcg/actuation nasal spray,suspension haloperidol 5 mg tablet 1 tab PO DAILY@1700 12/12/21 01/09/22 01/08/22 History insulin aspart U-100 100 unit/mL 0 sliding scale dose subcut BID 12/12/21 01/09/22 01/09/22 History (3 mL) subcutaneous pen (Novolog hyperglycemia Flexpen U-100 Insulin aspart) lorazepam 1 mg tablet 1 tab PO DAILY PRN Anxiety 12/12/21 01/09/22 01/08/22 History metformin 500 mg tablet 1 tab PO BIDWM 01/09/22 01/09/22 01/09/22 History Physical Exam Vital Signs: Vital Signs: Last Vital Signs Temp 97.7 F 01/10/22 08:00 Pulse 87 01/10/22 08:48 Resp 20 01/10/22 08:48 BP 110/61 01/10/22 08:00 Pulse Ox 94 01/10/22 08:00 O2 Del Method 01/10/22 08:00 O2 Flow Rate 3 01/10/22 08:00 BMI result Body Mass Index 21.8 Const: General: comfortable and no acute distress Orientation/consciousness: patient oriented x3 HEENT: Other: Unremarkable Head: Yes normal to inspection Neck: Neck: Yes normal visual inspection Chest: Chest palpation & inspection: normal inspection of the chest Resp: Other: Few fine crackles at the bases. Cardio: Palpation: normal PMI Heart sounds: S1 normal heart sound present, S2 normal heart sound present, no gallops, no murmurs and no rubs GI: Palpation (GI): Soft to palpation Back/Spine/Pelvis: Other: unremarkable Skin: General skin exam: no rashes or lesions noted Neuro: General: patient oriented x3 Extrem: General: Yes normal to inspection Psych: Mental Status: mental status grossly normal Objective Labs and Meds Result diagrams: 01/10/22 03:43 01/10/22 03:43 Lab results: Laboratory Results - last 24 hr 01/09/22 01/09/22 01/09/22 11:13 18:12 18:12 WBC 6.7 RBC 5.33 Hgb 13.0 L Hct 44.5 MCV 83.5 MCH 24.4 L MCHC 29.2 L RDW 19.1 H Plt Count 256 D MPV 9.7 Immature Gran % (Auto) 0.2 Neut % (Auto) 91.8 H Lymph % (Auto) 6.9 L [place] % (Auto) 0.9 L Eos % (Auto) 0.0 Baso % (Auto) 0.2 Lymph # (Auto) 0.5 L [place] # (Auto) 0.1 Eos # (Auto) 0.0 Baso # (Auto) 0.0 Abs Immat Gran (auto) 0.01 Absolute Neuts (auto) 6.1 Absolute Nucleated RBC 0.000 Nucleated RBC % (auto) 0.0 Smear Tech's Comments VERIFIED D-Dimer High Sensitivty VBG pH VBG pCO2 VBG pO2 VBG HCO3 VBG O2 Saturation VBG Base Excess Sodium 138 Potassium 4.7 Chloride 93 L Carbon Dioxide 35 H Anion Gap 15 BUN 16 Creatinine 1.28 Estim Creat Clear Calc 61.0 Estimated GFR 57 POC Glucose Random Glucose 378 H* Lactic Acid Lactic Acid F/U @ 2Hr Lactic Acid F/U @ 4Hr Calcium 8.9 Total Bilirubin 0.5 Direct Bilirubin 0.2 AST 14 D ALT 11 Alkaline Phosphatase 62 Troponin I High Sens B-Natriuretic Peptide Total Protein 7.5 Albumin 3.5 Urine Color STRAW Urine Appearance CLEAR Urine pH 7.0 Ur Specific [place] 1.010 Urine Protein NEG Urine Glucose (UA) NEG Urine Ketones NEG Urine Blood NEG Urine Nitrite NEG Ur Leukocyte Esterase NEG COVID-19 (TOMER) [employer] 01/09/22 01/09/22 01/09/22 18:12 18:12 18:12 WBC RBC Hgb Hct MCV MCH MCHC RDW Plt Count MPV Immature Gran % (Auto) Neut % (Auto) Lymph % (Auto) [place] % (Auto) Eos % (Auto) Baso % (Auto) Lymph # (Auto) [place] # (Auto) Eos # (Auto) Baso # (Auto) Abs Immat Gran (auto) Absolute Neuts (auto) Absolute Nucleated RBC Nucleated RBC % (auto) Smear Tech's Comments D-Dimer High Sensitivty VBG pH 7.41 VBG pCO2 63 VBG pO2 74 VBG HCO3 41 H VBG O2 Saturation 91.0 VBG Base Excess 13.3 Sodium Potassium Chloride Carbon Dioxide Anion Gap BUN Creatinine Estim Creat Clear Calc Estimated GFR POC Glucose Random Glucose Lactic Acid Lactic Acid F/U @ 2Hr Lactic Acid F/U @ 4Hr Calcium Total Bilirubin Direct Bilirubin AST ALT Alkaline Phosphatase Troponin I High Sens 12.6 D B-Natriuretic Peptide 764 H Total Protein Albumin Urine Color Urine Appearance Urine pH Ur Specific [place] Urine Protein Urine Glucose (UA) Urine Ketones Urine Blood Urine Nitrite Ur Leukocyte Esterase COVID-19 (TOMER) Negative [employer] See Note 01/09/22 01/09/22 01/09/22 20:07 20:07 20:31 WBC RBC Hgb Hct MCV MCH MCHC RDW Plt Count MPV Immature Gran % (Auto) Neut % (Auto) Lymph % (Auto) [place] % (Auto) Eos % (Auto) Baso % (Auto) Lymph # (Auto) [place] # (Auto) Eos # (Auto) Baso # (Auto) Abs Immat Gran (auto) Absolute Neuts (auto) Absolute Nucleated RBC Nucleated RBC % (auto) Smear Tech's Comments D-Dimer High Sensitivty 180 VBG pH VBG pCO2 VBG pO2 VBG HCO3 VBG O2 Saturation VBG Base Excess Sodium Potassium Chloride Carbon Dioxide Anion Gap BUN Creatinine Estim Creat Clear Calc Estimated GFR POC Glucose 390 H* Random Glucose Lactic Acid 4.2 H* Lactic Acid F/U @ 2Hr Lactic Acid F/U @ 4Hr Calcium Total Bilirubin Direct Bilirubin AST ALT Alkaline Phosphatase Troponin I High Sens B-Natriuretic Peptide Total Protein Albumin Urine Color Urine Appearance Urine pH Ur Specific [place] Urine Protein Urine Glucose (UA) Urine Ketones Urine Blood Urine Nitrite Ur Leukocyte Esterase COVID-19 (TOMER) COVID-19 [employer] 01/09/22 01/09/22 01/10/22 20:50 22:31 01:12 WBC RBC Hgb Hct MCV MCH MCHC RDW Plt Count MPV Immature Gran % (Auto) Neut % (Auto) Lymph % (Auto) [place] % (Auto) Eos % (Auto) Baso % (Auto) Lymph # (Auto) [place] # (Auto) Eos # (Auto) Baso # (Auto) Abs Immat Gran (auto) Absolute Neuts (auto) Absolute Nucleated RBC Nucleated RBC % (auto) Smear Tech's Comments D-Dimer High Sensitivty VBG pH VBG pCO2 VBG pO2 VBG HCO3 VBG O2 Saturation VBG Base Excess Sodium Potassium Chloride Carbon Dioxide Anion Gap BUN Creatinine Estim Creat Clear Calc Estimated GFR POC Glucose Random Glucose Lactic Acid Lactic Acid F/U @ 2Hr 4.2 H* Lactic Acid F/U @ 4Hr 3.0 H* Calcium Total Bilirubin Direct Bilirubin AST ALT Alkaline Phosphatase Troponin I High Sens 11.8 B-Natriuretic Peptide Total Protein Albumin Urine Color Urine Appearance Urine pH Ur Specific [place] Urine Protein Urine Glucose (UA) Urine Ketones Urine Blood Urine Nitrite Ur Leukocyte Esterase COVID-19 (TOMER) COVID-19 [employer] 01/10/22 01/10/22 01/10/22 03:43 03:43 07:25 WBC 3.4 L RBC 5.12 Hgb 12.4 L Hct 42.5 MCV 83.0 MCH 24.2 L MCHC 29.2 L RDW 18.6 H Plt Count 262 MPV 10.2 Immature Gran % (Auto) 0.3 Neut % (Auto) 81.3 H Lymph % (Auto) 16.9 L [place] % (Auto) 1.5 L Eos % (Auto) 0.0 Baso % (Auto) 0.0 Lymph # (Auto) 0.6 L [place] # (Auto) 0.1 Eos # (Auto) 0.0 Baso # (Auto) 0.0 Abs Immat Gran (auto) 0.01 Absolute Neuts (auto) 2.7 Absolute Nucleated RBC 0.000 Nucleated RBC % (auto) 0.0 Smear Tech's Comments D-Dimer High Sensitivty VBG pH VBG pCO2 VBG pO2 VBG HCO3 VBG O2 Saturation VBG Base Excess Sodium 138 Potassium 4.4 Chloride 93 L Carbon Dioxide 33 H Anion Gap 16 BUN 18 H Creatinine 1.29 Estim Creat Clear Calc 60.6 Estimated GFR 56 POC Glucose 271 H Random Glucose 375 H* Lactic Acid Lactic Acid F/U @ 2Hr Lactic Acid F/U @ 4Hr Calcium 8.7 Total Bilirubin Direct Bilirubin AST ALT Alkaline Phosphatase Troponin I High Sens B-Natriuretic Peptide Total Protein Albumin Urine Color Urine Appearance Urine pH Ur Specific [place] Urine Protein Urine Glucose (UA) Urine Ketones Urine Blood Urine Nitrite Ur Leukocyte Esterase COVID-19 (TOMER) COVID-19 Clin Com ECG Interpretation: EKG with sinus rhythm at 80/Min; deep T inversions across the anterior leads as well as inferior leads. QTc prolonged to 537 milliseconds. Similar changes are seen in a prior EKG from November but probably more pronounced now. Imaging Radiologist's impression: Impressions Chest X-Ray 01/09/22 16:52 IMPRESSION: No acute pulmonary finding. Assessment and Plan (1) Acute respiratory failure: Status: Acute (2) Acute CHF: Status: Acute (3) Abnormal EKG: Status: Acute (4) Cocaine abuse: Status: Acute Plan Per recent [facility] records, history of cocaine abuse. In fact have positive couple months ago. Hence we need to recheck and ensure he is not again cocaine positive contributing to his current admission. Otherwise, EKG as well shows T inversions in the anterior as well as inferior leads which could indicate LAD territory ischemia. Cocaine again could play a role in this too. However, do not believe there is any NSTEMI as the troponins are well within normal limits. Cardiac BNP slightly increased at 764. Previously 193. Chest x-ray reported to have no acute pulmonary findings. It appears that he did get IV Lasix upon arrival but currently on oral diuretics. We will start with an echocardiogram for cardiac function assessment as well as any wall motion abnormalities. Will follow up with you. Discussed with Dr. Hewitt. Procedures Date of Service Date of Service: 01/10/22
[2022-01-10 11:12] LABS: Glucose, Whole Blood 356 mg/dL (60-115)
[2022-01-10] MEDS: Divalproex Sodium ER 500 MG TAB.ER.24H PO (11:48)
[2022-01-10 11:49] LABS: Erythrocyte Sedimentation Rate 10 MM/HR (0-15)
--- NOTE | 2022-01-10 13:04 | HO.PM.IMPN ---
Subjective Subjective Date of Service: 01/10/22 Interval History: no acute issues overnight; continues require supplemental O2. Intermittent agitated behavior Review of Systems denies chest pain admits to shortness of breath Denies nausea vomiting diarrhea Denies fever chills Physical Exam Vital Signs: Vital Signs: Last Vital Signs Temp 98.1 F 01/10/22 12:00 Pulse 91 01/10/22 12:00 Resp 17 01/10/22 12:00 BP 148/66 H 01/10/22 12:00 Pulse Ox 97 01/10/22 12:00 O2 Del Method 01/10/22 12:00 O2 Flow Rate 3 01/10/22 12:00 BMI result Body Mass Index 21.8 Const: Other: no acute distress Resp: Other: bilateral basilar crackles noted Cardio: Other: no S4; positive S1-S2; no S3 murmurs rubs gallops Extrem: Other: no edema bilaterally Objective Data Active Medications Acetaminophen (Acetaminophen 325 Mg Tablet) 650 mg PO Q6H PRN PRN Reason: Pain, Mild (Pain Scale 1-3) Albuterol/Ipratropium (Albuterol/Iprat 2.5/0.5mg 3 Ml Ampul.Neb) 3 ml INHALE Q4H PRN PRN Reason: Shortness of Breath/Wheezing Albuterol/Ipratropium (Albuterol/Iprat 2.5/0.5mg 3 Ml Ampul.Neb) 3 ml INHALE RQ4H WHILE AWAKE [facility] Last Admin: 01/10/22 11:43 Dose: 3 ml Documented By: CEDRIC Atorvastatin Calcium (Atorvastatin Calcium 40 Mg Tablet) 40 mg PO DAILY [facility] Last Admin: 01/10/22 09:48 Dose: 40 mg Documented By: DAVIAN Dextrose (Dextrose 50 % 25 Gm/50 Ml Syringe) 25 gm IVPUSH Q15M PRN; Protocol PRN Reason: per Hypoglycemia Standing Ord. Divalproex Sodium (Divalproex Sodium Er 250 Mg Tab.Er.24h) 250 mg PO DAILY@1700 [facility] Divalproex Sodium (Divalproex Sodium Er 500 Mg Tab.Er.24h) 500 mg PO DAILY [facility] Last Admin: 01/10/22 11:48 Dose: 500 mg Documented By: FREDO Doxycycline Hyclate (Doxycycline Hyclate 100 Mg Tablet) 100 mg PO Q12H [facility] Last Admin: 01/10/22 09:47 Dose: 100 mg Documented By: DAVIAN Enoxaparin Sodium (Enoxaparin Sodium 40 Mg/0.4 Ml Syringe) 40 mg SUBCUT Q24H [facility] Last Admin: 01/09/22 22:03 Dose: 40 mg Documented By: AVA Ferrous Sulfate (Ferrous Sulfate 324 Mg Tablet.Dr) 324 mg PO BID [facility] Last Admin: 01/10/22 09:47 Dose: 324 mg Documented By: DAVIAN Fluticasone Propionate (Fluticasone Propionate Nasal 16 Gm [place]) 1 spray NOSTRIL-B BID [facility] Last Admin: 01/10/22 12:01 Dose: Not Given Documented By: FREDO Non-Admin Reason: Patient Refused Furosemide (Furosemide 40 Mg Tablet) 40 mg PO BID [facility]; Protocol Last Admin: 01/10/22 09:59 Dose: Not Given Documented By: FREDO Non-Admin Reason: given iv Glucose (Glucose Gel 15 Gm Gel..Gram.) 15 gm PO Q15M PRN; Protocol PRN Reason: per Hypoglycemia Standing Ord. Haloperidol (Haloperidol 5 Mg Tablet) 5 mg PO DAILY@1700 [facility] Haloperidol (Haloperidol 5 Mg Tablet) 10 mg PO BID [facility] Last Admin: 01/10/22 09:48 Dose: 10 mg Documented By: DAVIAN Insulin Glargine (Insulin Glargine,Hum.Rec.Anlog 100 Unit/Ml 10 Ml Vial) 10 unit SUBCUT BEDTIME [facility] Last Admin: 01/09/22 20:13 Dose: 10 unit Documented By: AVA Insulin Human Lispro (Insulin Lispro 100 Unit/Ml 3 Ml Vial) 0 unit SUBCUT QIDACHS [facility]; Protocol Last Admin: 01/10/22 11:48 Dose: 10 unit Documented By: FREDO Lorazepam (Lorazepam 1 Mg Tablet) 1 mg PO DAILY PRN PRN Reason: Anxiety Melatonin (Melatonin 3 Mg Tablet) 6 mg PO BEDTIME PRN PRN Reason: Insomnia Methylprednisolone Sodium Succinate (Methylprednisolone Sod Succ 40 Mg/Ml Vial) 40 mg IVPUSH Q6H [facility] Last Admin: 01/10/22 09:48 Dose: 40 mg Documented By: DAVIAN Morphine Sulfate (Morphine Sulfate 4 Mg/Ml Cartridge) 1 mg IVPUSH Q4H PRN; Protocol PRN Reason: Pain, SOB Neomycin/Polymyxin/Hydrocortisone (Neomycin/Polymyxin/Hc Otic Melanie 10 Ml Drpbtl) 3 drop EAR-RIGHT QID [facility] Last Admin: 01/10/22 12:01 Dose: Not Given Documented By: FREDO Non-Admin Reason: Patient Refused Omeprazole (Omeprazole 20 Mg Capsule.Dr) 20 mg PO DAILY@0630 [facility] Last Admin: 01/10/22 06:37 Dose: Not Given Documented By: GENIE Non-Admin Reason: Patient Refused Senna (Sennosides 8.6 Mg Tablet) 17.2 mg PO BEDTIME PRN PRN Reason: Constipation Sodium Chloride (0.9 % Sodium Chloride Flush 3 Ml Syringe) 3 ml IVFLUSH QSHIFT [facility] Last Admin: 01/10/22 08:07 Dose: Not Given Documented By: FREDO Non-Admin Reason: IV Running Labs CBC & Chem 7: 01/10/22 03:43 01/10/22 03:43 Labs: Laboratory Results - last 24 hr 01/09/22 01/09/22 01/09/22 18:12 18:12 18:12 MCV 83.5 MCH 24.4 L MCHC 29.2 L RDW 19.1 H Plt Count 256 D MPV 9.7 Immature Gran % (Auto) 0.2 Neut % (Auto) 91.8 H Lymph % (Auto) 6.9 L [place] % (Auto) 0.9 L Eos % (Auto) 0.0 Baso % (Auto) 0.2 Lymph # (Auto) 0.5 L [place] # (Auto) 0.1 Eos # (Auto) 0.0 Baso # (Auto) 0.0 Abs Immat Gran (auto) 0.01 Absolute Neuts (auto) 6.1 Absolute Nucleated RBC 0.000 Nucleated RBC % (auto) 0.0 Smear Tech's Comments VERIFIED ESR D-Dimer High Sensitivty VBG pH VBG pCO2 VBG pO2 VBG HCO3 VBG O2 Saturation VBG Base Excess Anion Gap 15 Estim Creat Clear Calc 61.0 Estimated GFR 57 POC Glucose Random Glucose 378 H* Lactic Acid Lactic Acid F/U @ 2Hr Lactic Acid F/U @ 4Hr Calcium 8.9 Total Bilirubin 0.5 Direct Bilirubin 0.2 AST 14 D ALT 11 Alkaline Phosphatase 62 Troponin I High Sens 12.6 D B-Natriuretic Peptide 764 H Total Protein 7.5 Albumin 3.5 COVID-19 (TOMER) COVID-19 Libox 01/09/22 01/09/22 01/09/22 18:12 18:12 20:07 MCV MCH MCHC RDW Plt Count MPV Immature Gran % (Auto) Neut % (Auto) Lymph % (Auto) [place] % (Auto) Eos % (Auto) Baso % (Auto) Lymph # (Auto) [place] # (Auto) Eos # (Auto) Baso # (Auto) Abs Immat Gran (auto) Absolute Neuts (auto) Absolute Nucleated RBC Nucleated RBC % (auto) Smear Tech's Comments ESR D-Dimer High Sensitivty VBG pH 7.41 VBG pCO2 63 VBG pO2 74 VBG HCO3 41 H VBG O2 Saturation 91.0 VBG Base Excess 13.3 Anion Gap Estim Creat Clear Calc Estimated GFR POC Glucose Random Glucose Lactic Acid 4.2 H* Lactic Acid F/U @ 2Hr Lactic Acid F/U @ 4Hr Calcium Total Bilirubin Direct Bilirubin AST ALT Alkaline Phosphatase Troponin I High Sens B-Natriuretic Peptide Total Protein Albumin COVID-19 (TOMER) Negative [facility] See Note 01/09/22 01/09/22 01/09/22 20:07 20:31 20:50 MCV MCH MCHC RDW Plt Count MPV Immature Gran % (Auto) Neut % (Auto) Lymph % (Auto) [place] % (Auto) Eos % (Auto) Baso % (Auto) Lymph # (Auto) [place] # (Auto) Eos # (Auto) Baso # (Auto) Abs Immat Gran (auto) Absolute Neuts (auto) Absolute Nucleated RBC Nucleated RBC % (auto) Smear Tech's Comments ESR D-Dimer High Sensitivty 180 VBG pH VBG pCO2 VBG pO2 VBG HCO3 VBG O2 Saturation VBG Base Excess Anion Gap Estim Creat Clear Calc Estimated GFR POC Glucose 390 H* Random Glucose Lactic Acid Lactic Acid F/U @ 2Hr Lactic Acid F/U @ 4Hr Calcium Total Bilirubin Direct Bilirubin AST ALT Alkaline Phosphatase Troponin I High Sens 11.8 B-Natriuretic Peptide Total Protein Albumin COVID-19 (TOMER) [facility] 01/09/22 01/10/22 01/10/22 22:31 01:12 03:43 MCV 83.0 MCH 24.2 L MCHC 29.2 L RDW 18.6 H Plt Count 262 MPV 10.2 Immature Gran % (Auto) 0.3 Neut % (Auto) 81.3 H Lymph % (Auto) 16.9 L [place] % (Auto) 1.5 L Eos % (Auto) 0.0 Baso % (Auto) 0.0 Lymph # (Auto) 0.6 L [place] # (Auto) 0.1 Eos # (Auto) 0.0 Baso # (Auto) 0.0 Abs Immat Gran (auto) 0.01 Absolute Neuts (auto) 2.7 Absolute Nucleated RBC 0.000 Nucleated RBC % (auto) 0.0 Smear Tech's Comments ESR D-Dimer High Sensitivty VBG pH VBG pCO2 VBG pO2 VBG HCO3 VBG O2 Saturation VBG Base Excess Anion Gap Estim Creat Clear Calc Estimated GFR POC Glucose Random Glucose Lactic Acid Lactic Acid F/U @ 2Hr 4.2 H* Lactic Acid F/U @ 4Hr 3.0 H* Calcium Total Bilirubin Direct Bilirubin AST ALT Alkaline Phosphatase Troponin I High Sens B-Natriuretic Peptide Total Protein Albumin COVID-19 (OTMER) [facility] 01/10/22 01/10/22 01/10/22 03:43 07:25 10:00 MCV MCH MCHC RDW Plt Count MPV Immature Gran % (Auto) Neut % (Auto) Lymph % (Auto) [place] % (Auto) Eos % (Auto) Baso % (Auto) Lymph # (Auto) [place] # (Auto) Eos # (Auto) Baso # (Auto) Abs Immat Gran (auto) Absolute Neuts (auto) Absolute Nucleated RBC Nucleated RBC % (auto) Smear Tech's Comments ESR 10 D-Dimer High Sensitivty VBG pH VBG pCO2 VBG pO2 VBG HCO3 VBG O2 Saturation VBG Base Excess Anion Gap 16 Estim Creat Clear Calc 60.6 Estimated GFR 56 POC Glucose 271 H Random Glucose 375 H* Lactic Acid Lactic Acid F/U @ 2Hr Lactic Acid F/U @ 4Hr Calcium 8.7 Total Bilirubin Direct Bilirubin AST ALT Alkaline Phosphatase Troponin I High Sens B-Natriuretic Peptide Total Protein Albumin COVID-19 (TOMER) [facility] 01/10/22 11:02 MCV MCH MCHC RDW Plt Count MPV Immature Gran % (Auto) Neut % (Auto) Lymph % (Auto) [place] % (Auto) Eos % (Auto) Baso % (Auto) Lymph # (Auto) [place] # (Auto) Eos # (Auto) Baso # (Auto) Abs Immat Gran (auto) Absolute Neuts (auto) Absolute Nucleated RBC Nucleated RBC % (auto) Smear Tech's Comments ESR D-Dimer High Sensitivty VBG pH VBG pCO2 VBG pO2 VBG HCO3 VBG O2 Saturation VBG Base Excess Anion Gap Estim Creat Clear Calc Estimated GFR POC Glucose 356 H* Random Glucose Lactic Acid Lactic Acid F/U @ 2Hr Lactic Acid F/U @ 4Hr Calcium Total Bilirubin Direct Bilirubin AST ALT Alkaline Phosphatase Troponin I High Sens B-Natriuretic Peptide Total Protein Albumin COVID-19 (TOMER) COVID-19 Clin Com Assessment and Plan (1) Acute CHF: Status: Acute (2) Acute respiratory failure: Status: Acute (3) Diabetes: Status: Acute Plan 61-year-old male with a past medical history of hyperlipidemia, diabetes, schizophrenia, detention resident, recent admission to the hospital for acute hypoxic respiratory failure presents with worsening SOB with O2 requirement 1.Acute CHF - will switch oral Lasix to IV and trend BNP - 2D echo to evaluate LV function -follow renals/divalents 2.Diabetes II - restart oral therapies - lispro correctional scale - add back metformin/ Januvia - adjust as indicated 3.Schizophrenia - continue outpatient therapies Lovenox Full Code requires ongoing hospitalization for IV diuresis and evaluation of left heart function Quality Stroke Does the patient have a stroke diagnosis?: No VTE Prior VTE?: No VTE Risk Level:: Medical - moderate - high VTE Device Contraindication: Treatment Not Indicated VTE Drug Contraindication: N/A - Med Ordered
[2022-01-10] MEDS: 0.9 % Sodium Chloride Flush 3 ML SYRINGE IVFLUSH ×2 (14:24→21:11)
--- NOTE | 2022-01-10 14:59 | MHC.CM.PN ---
ERM REVIED, PT REMAINS ON 3L OF O2 VN/OXYMASK, AWAITING ECHO, SNF UNABE TO ACCOMMODATE PT WHILE ON O2, NO D/C PLANNED FOR TODAY, CM WILL CON TO FOLLOW D/C NEEDS.
[2022-01-10 15:30] LABS: Glucose, Whole Blood 241 mg/dL (60-115)
[2022-01-10] MEDS: HaloperidoL 5 MG TABLET PO (16:31)
[2022-01-10] MEDS: Divalproex Sodium ER 250 MG TAB.ER.24H PO (16:31)
[2022-01-10 16:58] LABS: Amphetamine Screen Urine Not Detected (Not Detect); Barbiturates, Urine Not Detected (Not Detect); Benzodiazepines Screen Urine Not Detected (Not Detect); Cannabinoid Screen Urine Not Detected (Not Detect); Cocaine Screen Urine Not Detected (Not Detect); Fentanyl, urine Not Detected (Not Detect); Opiate Screen Urine Not Detected (Not Detect); Phencyclidine Screen Urine Not Detected (Not Detect)
[2022-01-10 20:07] LABS: Glucose, Whole Blood 358 mg/dL (60-115)
[2022-01-10] MEDS: Enoxaparin Sodium 40 MG/0.4 ML SYRINGE SUBCUT (21:09)
[2022-01-10] MEDS: LORazepam 1 MG TABLET PO (21:10)
[2022-01-10] MEDS: Insulin Glargine,Hum.rec.anlog 100 UNIT/ML 10 ML VIAL 10 UNIT SUBCUT (21:10)
[2022-01-10] MEDS: Melatonin 3 MG TABLET 6 MG PO (21:10)
[2022-01-11] VITALS (7 sets, daily range): BP systolic 91–118; BP diastolic 50–69; PULSE 59–81; RESP 16–20; TEMP 36–36.9; O2SAT 92–100
[2022-01-11] MEDS: methylPREDNISolone Sod Succ 40 MG/ML VIAL IVPUSH ×4 (02:12→21:04)
[2022-01-11 06:10] LABS: Hematocrit 39.8 % (42.0-52.0); Hemoglobin 11.5 g/dl (14.0-18.0); Imm Gran Abs Auto 0.02 X10*3/uL (0.00-0.03); Imm Gran Pct Auto 0.3 % (0.0-0.4); Lymphocytes Absolute Auto 0.5 X10*3/uL (1.2-4.9); Lymphocytes Percent Auto 6.9 % (20-40); MANUAL DIFF FLAG NO; Mean Corpuscular HGB Conc 28.9 g/dl (31.0-36.0); Mean Corpuscular Volume 83.1 fL (80.0-98.0); Monocytes Absolute Auto 0.3 X10*3/uL (0.1-1.2); Monocytes Percent Auto 4.1 % (2-11); Neutrophils Absolute Auto 5.8 x10*3/uL (2.0-8.3); Neutrophils Percent Auto 88.7 % (45-73); Platelet Count 287 X10*3/uL (160-400); Red Blood Count 4.79 X10*6/uL (4.60-5.80); Red Cell Distribution Width 18.1 % (11.0-16.0); White Blood Count 6.5 X10*3/uL (4.8-10.8)
[2022-01-11 06:27] LABS: B Type Natriuretic Peptide 259 pg/mL (<100)
[2022-01-11 06:38] LABS: Alanine Aminotransferase 8 U/L (0-40); Albumin Level 3.5 g/dL (3.5-5.0); Alkaline Phosphatase 56 U/L (39-117); Anion Gap 12 (12-20); Aspartate Amino Transferase 6 U/L (5-37); Bilirubin Total 0.2 mg/dL (0.0-1.0); Blood Urea Nitrogen 27 mg/dL (9-16); Calcium 8.9 mg/dL (8.4-10.2); Carbon Dioxide 37 mmol/L (22-29); Chloride 96 mmol/L (96-108); Creatinine Clr Calc Pharmacy 68.5; Estimated Glomerular Filt Rate > 60; Glucose Fasting 312 mg/dL (60-99); Potassium 4.9 mmol/L (3.3-5.1); Sodium 140 mmol/L (135-145); Total Protein 6.7 g/dL (6.5-8.0)
[2022-01-11 07:23] LABS: Glucose, Whole Blood 281 mg/dL (60-115)
--- NOTE | 2022-01-11 07:52 | P.CDIC_ITS ---
CDI Concurrent Query Documentation Clarification: PHYSICIAN'S DOCUMENTATION REQUEST Date of Query: 01/11/22 0752 Patient Name: Khai Bronson Admit Date: 01/09/22 Dear Doctor, A review of the medical record indicates additional documentation may be needed. Please review below and update the documentation accordingly. Clinical Indicators: The following diagnoses or signs and symptoms were noted in the patient record: Risk Factors/Clinical Indicators/Treatments Lab findings: Lactic acid 4.2 H 3.0 H Based on the above, could you clarify in the Progress Notes the appropriate diagnosis, if significant, that supports the above abnormalities and additional evaluation, monitoring, and/or treatment rendered: * Lactic Acidosis or other etiology of lab findings * Labs indicate a diagnosis of (please specify) * Other (please specify) * Unable to determine Use of terms such as suspected, likely, concern for, or probable (associated with a specific diagnosis that is being evaluated, monitored, or treated as if it exists) are acceptable and can be coded in the inpatient setting, when documented at the time of discharge. Thank you, Abigail Torres [facility], CDIS Extension: [phone] Please use your independent medical judgment in providing your response. THIS QUERY IS PART OF THE PERMANENT MEDICAL RECORD Provider Response: Other Other Diagnosis: unable to determine
[2022-01-11] MEDS: Omeprazole 20 MG CAPSULE.DR PO (08:02)
[2022-01-11] MEDS: Atorvastatin Calcium 40 MG TABLET PO (08:02)
[2022-01-11] MEDS: HaloperidoL 5 MG TABLET 10 MG PO ×2 (08:02→21:05)
[2022-01-11] MEDS: Ferrous Sulfate 324 MG TABLET.DR PO ×2 (08:03→21:05)
[2022-01-11] MEDS: Divalproex Sodium ER 500 MG TAB.ER.24H PO (08:03)
[2022-01-11] MEDS: Insulin Lispro 100 UNIT/ML 3 ML VIAL 15 UNIT SUBCUT (08:05)
[2022-01-11] MEDS: Furosemide 40 MG/4 ML VIAL IVPUSH ×2 (08:05→21:04)
[2022-01-11] MEDS: 0.9 % Sodium Chloride Flush 3 ML SYRINGE IVFLUSH ×2 (08:10→13:36)
--- NOTE | 2022-01-11 09:30 | P.CDIC_ITS ---
CDI Concurrent Query Documentation Clarification: PHYSICIAN'S DOCUMENTATION REQUEST Date of Query: 01/11/2231 Patient Name: Khai Bronson Admit Date: 01/09/22 Dear Doctor, Please review the following and provide your response in the progress notes. Clinical Indicators: The diagnosis of asthma was documented in the record on [enter date]. Additional clinical indicators from the record include: Risk Factors/Clinical Indicators/Treatments ED: 01/09 - recently discharged for Asthma vs. COPD, po prednisone, IV Solumedrol, supplemental oxygen, Duoneb standing and p.r.n. H&P: 01/09 - Assessment/plan: Acute Asthma/COPD, outpatient pulmonary function test. PN: 01/10 - Assessment/plan: Acute respiratory failure Based on the above, please clarify in the Progress Notes further specificity regarding the type and acuity of the asthma: Type: * Mild intermittent - less than 2x/week * Mild persistent - more than 2x/week but not daily * Moderate persistent - daily and may restrict physical activity * Severe persistent - throughout the day with frequent attacks, limiting activities * Chronic obstructive asthma and indicate if with acute lower respiratory infection * Asthma with underlying COPD and indicate if with acute lower respiratory infection * Other ? please specify * Unable to determine Acuity: * With acute exacerbation * With status asthmaticus * Uncomplicated * Unable to determine Use of terms such as suspected, likely, concern for, or probable (associated with a specific diagnosis that is being evaluated, monitored, or treated as if it exists) are acceptable and can be coded in the inpatient setting, when documented at the time of discharge. Thank you, Abigail Torres [facility], CDIS Extension: [phone] Please use your independent medical judgment in providing your response. THIS QUERY IS PART OF THE PERMANENT MEDICAL RECORD Provider Response: Other Other Diagnosis: mild intermittent with acute exacerbation
--- NOTE | 2022-01-11 09:30 | MHC.CDI.CONC ---
CDI Concurrent Query Documentation Clarification: PHYSICIAN'S DOCUMENTATION REQUEST Date of Query: 01/11/22 0931 Patient Name: Khai Bronson Admit Date: 01/09/22 Dear Doctor, Please review the following and provide your response in the progress notes. Clinical Indicators: The diagnosis of asthma was documented in the record on [enter date]. Additional clinical indicators from the record include: Risk Factors/Clinical Indicators/Treatments ED: 01/09 - recently discharged for Asthma vs. COPD, po prednisone, IV Solumedrol, supplemental oxygen, Duoneb standing and p.r.n. H&P: 01/09 - Assessment/plan: Acute Asthma/COPD, outpatient pulmonary function test. PN: 01/10 - Assessment/plan: Acute respiratory failure Based on the above, please clarify in the Progress Notes further specificity regarding the type and acuity of the asthma: Type: Mild intermittent - less than 2x/week Mild persistent - more than 2x/week but not daily Moderate persistent - daily and may restrict physical activity Severe persistent - throughout the day with frequent attacks, limiting activities Chronic obstructive asthma and indicate if with acute lower respiratory infection Asthma with underlying COPD and indicate if with acute lower respiratory infection Other ? please specify Unable to determine Acuity: With acute exacerbation With status asthmaticus Uncomplicated Unable to determine Use of terms such as suspected, likely, concern for, or probable (associated with a specific diagnosis that is being evaluated, monitored, or treated as if it exists) are acceptable and can be coded in the inpatient setting, when documented at the time of discharge. Thank you, Abigail Torres [facility], CDIS Extension: [phone] Please use your independent medical judgment in providing your response. THIS QUERY IS PART OF THE PERMANENT MEDICAL RECORD Provider Response: Other Other Diagnosis: mild intermittent with acute exacerbation
[2022-01-11] MEDS: LORazepam 2 MG/ML VIAL 1 MG IVPUSH (10:07)
[2022-01-11] MEDS: iohexoL 350 MG/ML 100 ML INFUS..BTL 65 ML IV (11:04)
[2022-01-11] MEDS: Insulin Lispro 100 UNIT/ML 3 ML VIAL SUBCUT ×3 (11:44→21:05)
[2022-01-11 11:46] LABS: Glucose, Whole Blood 294 mg/dL (60-115)
--- NOTE | 2022-01-11 12:19 | PM.PNCARD ---
Subjective Subjective Date of Service: 01/11/22 Principal diagnosis: hypoxic resp failure, CHF, abn EKG Interval history: Seen at 1100. Today he is observed sleeping in bed, no distress. Arousable but falls back asleep easily. Does answer questions appropriately. Denies chest pains, sob, palpitation, dizziness. Wearing O2 with nasal cannula. Tele monitor showing SR with T wave inversion, rates 70-80s. Review of Systems Review of Systems as above Yes all other systems are reviewed and are negative Physical Exam Vital Signs: Last Vital Signs Temp 97.1 F 01/11/22 12:00 Pulse 69 01/11/22 12:00 Resp 20 01/11/22 12:00 BP 112/62 01/11/22 12:00 Pulse Ox 100 01/11/22 12:00 O2 Del Method 01/11/22 12:00 O2 Flow Rate 4 01/11/22 12:00 BMI result Body Mass Index 21.8 Const Other: Sleepy, arousable but does not become fully alert. Answer questions appropriately, follows commands, oriented. General: cooperative and no acute distress Neck Other: Mild JVD elevation, facial hair obscures some of view Resp Effort & Inspection: normal respiratory effort and not labored Auscultation: clear to auscultation bilaterally (Dim right base posteriorly), rales (1/3 up on left posteriorly), no rhonchi and no wheezes Cardio Jugular venous distension: JVD present Rate: regular rate Rhythm: regular rhythm Heart sounds: S1 normal heart sound present and S2 normal heart sound present GI Inspection: Yes normal to inspection Extrem General: Yes normal to inspection and No edema Objective Labs and Meds Result diagrams: 01/11/22 05:15 01/11/22 05:15 Lab results: Laboratory Results - last 24 hr 01/10/22 01/10/22 01/10/22 15:24 16:00 19:09 WBC RBC Hgb Hct MCV MCH MCHC RDW Plt Count MPV Immature Gran % (Auto) Neut % (Auto) Lymph % (Auto) [place] % (Auto) Eos % (Auto) Baso % (Auto) Lymph # (Auto) [place] # (Auto) Eos # (Auto) Baso # (Auto) Abs Immat Gran (auto) Absolute Neuts (auto) Absolute Nucleated RBC Nucleated RBC % (auto) Sodium Potassium Chloride Carbon Dioxide Anion Gap BUN Creatinine Estim Creat Clear Calc Estimated GFR POC Glucose 241 H 358 H* Fasting Glucose Calcium Total Bilirubin AST ALT Alkaline Phosphatase B-Natriuretic Peptide Total Protein Albumin Urine Opiates Screen Not Detected Urine Fentanyl Screen Not Detected Ur Barbiturates Screen Not Detected Ur Phencyclidine Scrn Not Detected Ur Amphetamines Screen Not Detected U Benzodiazepines Scrn Not Detected Urine Cocaine Screen Not Detected U Marijuana (THC) Screen Not Detected 01/11/22 01/11/22 01/11/22 05:15 05:15 05:15 WBC 6.5 RBC 4.79 Hgb 11.5 L Hct 39.8 L MCV 83.1 MCH 24.0 L MCHC 28.9 L RDW 18.1 H Plt Count 287 MPV 10.0 Immature Gran % (Auto) 0.3 Neut % (Auto) 88.7 H Lymph % (Auto) 6.9 L [place] % (Auto) 4.1 Eos % (Auto) 0.0 Baso % (Auto) 0.0 Lymph # (Auto) 0.5 L [place] # (Auto) 0.3 Eos # (Auto) 0.0 Baso # (Auto) 0.0 Abs Immat Gran (auto) 0.02 Absolute Neuts (auto) 5.8 Absolute Nucleated RBC 0.000 Nucleated RBC % (auto) 0.0 Sodium 140 Potassium 4.9 Chloride 96 Carbon Dioxide 37 H Anion Gap 12 BUN 27 H Creatinine 1.14 Estim Creat Clear Calc 68.5 Estimated GFR > 60 POC Glucose Fasting Glucose 312 H Calcium 8.9 Total Bilirubin 0.2 AST 6 D ALT 8 Alkaline Phosphatase 56 B-Natriuretic Peptide 259 H Total Protein 6.7 Albumin 3.5 Urine Opiates Screen Urine Fentanyl Screen Ur Barbiturates Screen Ur Phencyclidine Scrn Ur Amphetamines Screen U Benzodiazepines Scrn Urine Cocaine Screen U Marijuana (THC) Screen 01/11/22 01/11/22 07:16 11:39 WBC RBC Hgb Hct MCV MCH MCHC RDW Plt Count MPV Immature Gran % (Auto) Neut % (Auto) Lymph % (Auto) [place] % (Auto) Eos % (Auto) Baso % (Auto) Lymph # (Auto) [place] # (Auto) Eos # (Auto) Baso # (Auto) Abs Immat Gran (auto) Absolute Neuts (auto) Absolute Nucleated RBC Nucleated RBC % (auto) Sodium Potassium Chloride Carbon Dioxide Anion Gap BUN Creatinine Estim Creat Clear Calc Estimated GFR POC Glucose 281 H 294 H Fasting Glucose Calcium Total Bilirubin AST ALT Alkaline Phosphatase B-Natriuretic Peptide Total Protein Albumin Urine Opiates Screen Urine Fentanyl Screen Ur Barbiturates Screen Ur Phencyclidine Scrn Ur Amphetamines Screen U Benzodiazepines Scrn Urine Cocaine Screen U Marijuana (THC) Screen Progress Note: A&P Assessment and plan (1) Acute CHF: Status: Acute Assessment and Plan: admit with hypoxic resp failure. CXR with NAD. BNP elevated at 764. Requiring O2 supplement. Take Lasix 40mg bid at home - currently recieving same dose IV route. Fluid balance neg 780 cc since admit. Sat 98% on 4 liters. Reports breathing is comfortable. Still has mild JVD and has rales 1/3 up on right posteriorly. Echo shows EF 55-60%, severe increase in RV size, basal inferior hypokinesis. D dimer 180. He did have a CTA of chest today to eval for PE, result is pending. Continue lasix IV. Ongoing I+O monitoring. Close monitoring of electrolyte and kidney function. O2 supplement as needed for sat > 90%. (2) Acute respiratory failure: Status: Acute (3) Abnormal EKG: Status: Acute Assessment and Plan: EKG shows anterior T wave inversions. Troponins normal. Has had T wave abn on prior EKGs as well. No reports of CP. Echo does show basal inferior hypokinesis. Cardiac risks of DM, HLD, hx cocaine use. Tox screen neg this admit. If the above CTA is negative for PE - He will need an ischemic work up. Pharm nuclear stress test will then be ordered. Time Spent With Patient Time: Total time spent is greater than 50% in coordination of care (as documented) at patient's floor/unit and/or counseling patient: 20 Progress Note: Quality Stroke Does the patient have a stroke diagnosis?: No Procedures Date of Service Date of Service: 01/11/22
--- NOTE | 2022-01-11 13:53 | MHC.CM.PN ---
Addendum entered by Katharine Garcia 01/11/22 15:00: DECLINED REFERRALS [facility], [facility], [facility] , [facility], [facility], [facility], [facility], [facility] [place], [facility] , [facility] , [facility] , [place] , [facility] [place], [facility] [place], [facility], [facility], [facility], [facility] [place] NO BED AVAILABILITY OR EXCEED CARE CAPACITY RECIVED CALL BACK FROM PATIENTS GUARDIAN AND ASKED IF I COULD REFE IN THE [facility] , Original Note: NURSE CASE MANAGEMENT NOTE ELECTRONIC MEDICAL RECORD REVIEWED ALONG WITH CASE DISCUSSED WITH THE STAFF NURSE AND THE HOSPITALET , T/C RECIVED FROM ,ANA RAMIREZ CLINICAL DIRECTOR OF [facility] [place] [phone] SHE REPORTED PATIENTS HEALTH HAS BEEN DELCINING AND THEY ARE LLOING FOR HIM TO GO TO SHORT TERM REHAB FOR HIS PULMONARY CARDIAC ISSUES AND MAY NEED TO EVENTUALLY GO FOR [facility]ENT SUPERVISOR CARE , PATIENT HAS A GUARDIAN REMBERTO SLADE iQiyi [phone] MESSAGE LEFT REQUESTING COMPLETE PAPRWORK FOR GUARDIAN BETTYE, TO BE FAXED TO CASE MANAGEMENT DEPT FOR SHORT TERM, REHAB PLACEMENT DISCHARGE PLAN 1. ?? ACCEPTANCE TO RETURN BACK TO [facility] PER LIA RENTERIA STR -CLINICAL UPDATES AND SENT TO SEVERAL CONTRACTED [facility] , (SPOKE WITH [facility] ) T/C TO NIKHIL Dalila [facility] PATIENT ALSO HAS [facility] [place] #[id number] SECONDARY INS. GUARDIAN TRICIA SLADE TETO [phone] LIA RAMIREZ [facility] CLINICAL CORDINATOR [phone] CHECK FOR HCP- COVID VACINATION X1
--- NOTE | 2022-01-11 14:26 | P.PNIM_ITS ---
Subjective Subjective Date of Service: 01/11/22 Interval History: slowly able to titrate O2. No acute issues Review of Systems denies chest pain Denies shortness of breath Denies nausea vomiting diarrhea Denies fever chills Physical Exam Vital Signs: Vital Signs: Last Vital Signs Temp 97.1 F 01/11/22 12:00 Pulse 69 01/11/22 12:00 Resp 20 01/11/22 12:00 BP 112/62 01/11/22 12:00 Pulse Ox 100 01/11/22 12:00 O2 Del Method 01/11/22 12:00 O2 Flow Rate 4 01/11/22 12:00 BMI result Body Mass Index 21.8 Const: Other: no acute distress Resp: Other: bilateral basilar crackles noted Cardio: Other: no S4; positive S1-S2; no S3 murmurs rubs gallops Extrem: Other: no edema bilaterally Objective Data Active Medications Acetaminophen (Acetaminophen 325 Mg Tablet) 650 mg PO Q6H PRN PRN Reason: Pain, Mild (Pain Scale 1-3) Albuterol/Ipratropium (Albuterol/Iprat 2.5/0.5mg 3 Ml Ampul.Neb) 3 ml INHALE Q4H PRN PRN Reason: Shortness of Breath/Wheezing Albuterol/Ipratropium (Albuterol/Iprat 2.5/0.5mg 3 Ml Ampul.Neb) 3 ml INHALE RQ4H WHILE AWAKE [facility] Last Admin: 01/11/22 13:20 Dose: Not Given Documented By: LINDA Non-Admin Reason: Patient Refused Atorvastatin Calcium (Atorvastatin Calcium 40 Mg Tablet) 40 mg PO DAILY [facility] Last Admin: 01/11/22 08:02 Dose: 40 mg Documented By: FREDO Dextrose (Dextrose 50 % 25 Gm/50 Ml Syringe) 25 gm IVPUSH Q15M PRN; Protocol PRN Reason: per Hypoglycemia Standing Ord. Divalproex Sodium (Divalproex Sodium Er 250 Mg Tab.Er.24h) 250 mg PO DAILY@1700 [facility] Last Admin: 01/10/22 16:31 Dose: 250 mg Documented By: FREDO Divalproex Sodium (Divalproex Sodium Er 500 Mg Tab.Er.24h) 500 mg PO DAILY [facility] Last Admin: 01/11/22 08:03 Dose: 500 mg Documented By: FREDO Doxycycline Hyclate (Doxycycline Hyclate 100 Mg Tablet) 100 mg PO Q12H [facility] Last Admin: 01/11/22 08:02 Dose: 100 mg Documented By: FREDO Enoxaparin Sodium (Enoxaparin Sodium 40 Mg/0.4 Ml Syringe) 40 mg SUBCUT Q24H [facility] Last Admin: 01/10/22 21:09 Dose: 40 mg Documented By: GENIE Ferrous Sulfate (Ferrous Sulfate 324 Mg Tablet.Dr) 324 mg PO BID [facility] Last Admin: 01/11/22 08:03 Dose: 324 mg Documented By: FREDO Fluticasone Propionate (Fluticasone Propionate Nasal 16 Gm [place]) 1 spray NOSTRIL-B BID [facility] Last Admin: 01/11/22 08:04 Dose: Not Given Documented By: FREDO Non-Admin Reason: Patient Refused Furosemide (Furosemide 40 Mg/4 Ml Vial) 40 mg IVPUSH Q12H [facility]; Protocol Last Admin: 01/11/22 08:05 Dose: 40 mg Documented By: FREDO Glucose (Glucose Gel 15 Gm Gel..Gram.) 15 gm PO Q15M PRN; Protocol PRN Reason: per Hypoglycemia Standing Ord. Haloperidol (Haloperidol 5 Mg Tablet) 5 mg PO DAILY@1700 [facility] Last Admin: 01/10/22 16:31 Dose: 5 mg Documented By: FREDO Haloperidol (Haloperidol 5 Mg Tablet) 10 mg PO BID [facility] Last Admin: 01/11/22 08:02 Dose: 10 mg Documented By: FREDO Insulin Glargine (Insulin Glargine,Hum.Rec.Anlog 100 Unit/Ml 10 Ml Vial) 10 unit SUBCUT BEDTIME [facility] Last Admin: 01/10/22 21:10 Dose: 10 unit Documented By: GENIE Insulin Human Lispro (Insulin Lispro 100 Unit/Ml 3 Ml Vial) 0 unit SUBCUT QIDACHS [facility]; Protocol Last Admin: 01/11/22 11:44 Dose: 6 unit Documented By: FREDO Lorazepam (Lorazepam 1 Mg Tablet) 1 mg PO DAILY PRN PRN Reason: Anxiety Last Admin: 01/10/22 21:10 Dose: 1 mg Documented By: GENIE Melatonin (Melatonin 3 Mg Tablet) 6 mg PO BEDTIME PRN PRN Reason: Insomnia Last Admin: 01/10/22 21:10 Dose: 6 mg Documented By: GENIE Methylprednisolone Sodium Succinate (Methylprednisolone Sod Succ 40 Mg/Ml Vial) 40 mg IVPUSH Q6H [facility] Last Admin: 01/11/22 13:36 Dose: 40 mg Documented By: FREDO Morphine Sulfate (Morphine Sulfate 4 Mg/Ml Cartridge) 1 mg IVPUSH Q4H PRN; Protocol PRN Reason: Pain, SOB Neomycin/Polymyxin/Hydrocortisone (Neomycin/Polymyxin/Hc Otic Melanie 10 Ml Drpbtl) 3 drop EAR-RIGHT QID [facility] Last Admin: 01/11/22 11:50 Dose: Not Given Documented By: FREDO Non-Admin Reason: Patient Refused Omeprazole (Omeprazole 20 Mg Capsule.Dr) 20 mg PO DAILY@629 [facility] Last Admin: 01/11/22 08:02 Dose: 20 mg Documented By: FREDO Senna (Sennosides 8.6 Mg Tablet) 17.2 mg PO BEDTIME PRN PRN Reason: Constipation Sodium Chloride (0.9 % Sodium Chloride Flush 3 Ml Syringe) 3 ml IVFLUSH QSHIFT [facility] Last Admin: 01/11/22 13:36 Dose: 3 ml Documented By: FREDO Labs CBC & Chem 7: 01/11/22 05:15 01/11/22 05:15 Labs: Laboratory Results - last 24 hr 01/10/22 01/10/22 01/10/22 15:24 16:00 19:09 MCV MCH MCHC RDW Plt Count MPV Immature Gran % (Auto) Neut % (Auto) Lymph % (Auto) [place] % (Auto) Eos % (Auto) Baso % (Auto) Lymph # (Auto) [place] # (Auto) Eos # (Auto) Baso # (Auto) Abs Immat Gran (auto) Absolute Neuts (auto) Absolute Nucleated RBC Nucleated RBC % (auto) Anion Gap Estim Creat Clear Calc Estimated GFR POC Glucose 241 H 358 H* Fasting Glucose Calcium Total Bilirubin AST ALT Alkaline Phosphatase B-Natriuretic Peptide Total Protein Albumin Urine Opiates Screen Not Detected Urine Fentanyl Screen Not Detected Ur Barbiturates Screen Not Detected Ur Phencyclidine Scrn Not Detected Ur Amphetamines Screen Not Detected U Benzodiazepines Scrn Not Detected Urine Cocaine Screen Not Detected U Marijuana (THC) Screen Not Detected 06/04/2601/11/22 01/11/22 05:15 05:15 05:15 MCV 83.1 MCH 24.0 L MCHC 28.9 L RDW 18.1 H Plt Count 287 MPV 10.0 Immature Gran % (Auto) 0.3 Neut % (Auto) 88.7 H Lymph % (Auto) 6.9 L [place] % (Auto) 4.1 Eos % (Auto) 0.0 Baso % (Auto) 0.0 Lymph # (Auto) 0.5 L [place] # (Auto) 0.3 Eos # (Auto) 0.0 Baso # (Auto) 0.0 Abs Immat Gran (auto) 0.02 Absolute Neuts (auto) 5.8 Absolute Nucleated RBC 0.000 Nucleated RBC % (auto) 0.0 Anion Gap 12 Estim Creat Clear Calc 68.5 Estimated GFR > 60 POC Glucose Fasting Glucose 312 H Calcium 8.9 Total Bilirubin 0.2 AST 6 D ALT 8 Alkaline Phosphatase 56 B-Natriuretic Peptide 259 H Total Protein 6.7 Albumin 3.5 Urine Opiates Screen Urine Fentanyl Screen Ur Barbiturates Screen Ur Phencyclidine Scrn Ur Amphetamines Screen U Benzodiazepines Scrn Urine Cocaine Screen U Marijuana (THC) Screen 01/11/22 01/11/22 07:16 11:39 MCV MCH MCHC RDW Plt Count MPV Immature Gran % (Auto) Neut % (Auto) Lymph % (Auto) [place] % (Auto) Eos % (Auto) Baso % (Auto) Lymph # (Auto) [place] # (Auto) Eos # (Auto) Baso # (Auto) Abs Immat Gran (auto) Absolute Neuts (auto) Absolute Nucleated RBC Nucleated RBC % (auto) Anion Gap Estim Creat Clear Calc Estimated GFR POC Glucose 281 H 294 H Fasting Glucose Calcium Total Bilirubin AST ALT Alkaline Phosphatase B-Natriuretic Peptide Total Protein Albumin Urine Opiates Screen Urine Fentanyl Screen Ur Barbiturates Screen Ur Phencyclidine Scrn Ur Amphetamines Screen U Benzodiazepines Scrn Urine Cocaine Screen U Marijuana (THC) Screen Microbiology Microbiology Results: Microbiology 01/09/22 19:01 Blood Culture - Preliminary Blood - Venous No growth after 24 hours. 01/09/22 19:01 Blood Culture - Preliminary Blood - Venous No growth after 24 hours. Assessment and Plan (1) Acute CHF: Status: Acute (2) CHF (congestive heart failure): Status: Acute Plan 61-year-old male with a past medical history of hyperlipidemia, diabetes, schizophrenia, correction resident, recent admission to the hospital for acute hypoxic respiratory failure presents with worsening SOB with O2 requirement 1.Acute CHF - switch back to oral Lasix; good response to diuresis - 2D echo EF 50 60% -follow renals/divalents - CTA negative for PE.. titrate O2 2.Diabetes II - restart oral therapies - lispro correctional scale - add back metformin/ Januvia - adjust as indicated 3.Schizophrenia - continue outpatient therapies Lovenox Full Code requires ongoing hospitalization for IV diuresis and evaluation of left heart function Quality Stroke Does the patient have a stroke diagnosis?: No VTE Prior VTE?: No VTE Risk Level:: Medical - moderate - high VTE Device Contraindication: Treatment Not Indicated VTE Drug Contraindication: N/A - Med Ordered
[2022-01-11 15:34] LABS: Glucose, Whole Blood 273 mg/dL (60-115)
[2022-01-11] MEDS: Divalproex Sodium ER 250 MG TAB.ER.24H PO (16:15)
[2022-01-11] MEDS: HaloperidoL 5 MG TABLET PO (16:15)
[2022-01-11] MEDS: Enoxaparin Sodium 40 MG/0.4 ML SYRINGE SUBCUT (21:05)
[2022-01-11] MEDS: Insulin Glargine,Hum.rec.anlog 100 UNIT/ML 10 ML VIAL 10 UNIT SUBCUT (21:05)
[2022-01-12] VITALS (8 sets, daily range): BP systolic 109–135; BP diastolic 57–69; PULSE 57–93; RESP 16–20; TEMP 36.4–37.2; O2SAT 92–96
[2022-01-12] MEDS: 0.9 % Sodium Chloride Flush 3 ML SYRINGE IVFLUSH ×4 (01:06→20:08)
[2022-01-12] MEDS: methylPREDNISolone Sod Succ 40 MG/ML VIAL IVPUSH ×4 (01:06→20:08)
[2022-01-12 06:17] LABS: Hematocrit 40.9 % (42.0-52.0); Hemoglobin 11.8 g/dl (14.0-18.0); Imm Gran Abs Auto 0.02 X10*3/uL (0.00-0.03); Imm Gran Pct Auto 0.3 % (0.0-0.4); Lymphocytes Absolute Auto 0.3 X10*3/uL (1.2-4.9); Lymphocytes Percent Auto 4.7 % (20-40); MANUAL DIFF FLAG SCAN; Mean Corpuscular HGB Conc 28.9 g/dl (31.0-36.0); Mean Corpuscular Hemoglobin 24.5 pg (27.0-33.0); Mean Corpuscular Volume 84.9 fL (80.0-98.0); Mean Platelet Volume 9.7 fL (9.4-12.4); Monocytes Absolute Auto 0.2 X10*3/uL (0.1-1.2); Monocytes Percent Auto 2.2 % (2-11); Neutrophils Absolute Auto 6.3 x10*3/uL (2.0-8.3); Neutrophils Percent Auto 92.8 % (45-73); Platelet Count 290 X10*3/uL (160-400); Red Blood Count 4.82 X10*6/uL (4.60-5.80); Red Cell Distribution Width 17.9 % (11.0-16.0); SCAN SMEAR FLAG 1; White Blood Count 6.8 X10*3/uL (4.8-10.8)
[2022-01-12 06:39] LABS: SLIDE REVIEW VERIFIED
[2022-01-12 06:40] LABS: B Type Natriuretic Peptide 166 pg/mL (<100)
[2022-01-12 06:53] LABS: Alanine Aminotransferase 9 U/L (0-40); Albumin Level 3.5 g/dL (3.5-5.0); Alkaline Phosphatase 65 U/L (39-117); Anion Gap 16 (12-20); Aspartate Amino Transferase 6 U/L (5-37); Bilirubin Total 0.2 mg/dL (0.0-1.0); Blood Urea Nitrogen 36 mg/dL (9-16); Calcium 8.8 mg/dL (8.4-10.2); Carbon Dioxide 34 mmol/L (22-29); Chloride 94 mmol/L (96-108); Creatinine Clr Calc Pharmacy 57.4; Estimated Glomerular Filt Rate 53; Glucose Fasting 434 mg/dL (60-99); Potassium 4.9 mmol/L (3.3-5.1); Sodium 139 mmol/L (135-145); Total Protein 6.8 g/dL (6.5-8.0)
[2022-01-12 07:46] LABS: Glucose, Whole Blood 356 mg/dL (60-115)
[2022-01-12] MEDS: Ferrous Sulfate 324 MG TABLET.DR PO ×2 (08:04→20:08)
[2022-01-12] MEDS: Insulin Lispro 100 UNIT/ML 3 ML VIAL 15 UNIT SUBCUT ×2 (08:04→12:03)
[2022-01-12] MEDS: Atorvastatin Calcium 40 MG TABLET PO (08:04)
[2022-01-12] MEDS: HaloperidoL 5 MG TABLET 10 MG PO ×2 (08:04→20:08)
[2022-01-12] MEDS: Divalproex Sodium ER 500 MG TAB.ER.24H PO (08:04)
[2022-01-12] MEDS: Furosemide 40 MG/4 ML VIAL IVPUSH (08:11)
--- NOTE | 2022-01-12 11:03 | P.CDIC_ITS ---
CDI Concurrent Query Documentation Clarification: PHYSICIAN'S DOCUMENTATION REQUEST Date of Query: 01/12/22 1103 Patient Name: Khai Bronson Admit Date: 01/09/22 Dear Doctor, A review of the medical record indicates additional documentation may be needed. Please review below and update the documentation accordingly. Clinical Indicators: Consistency of documentation within the medical record: Risk Factors/Clinical Indicators/Treatments Pulmonary notes 01/10 - Chief complaint: Acute hypoxic respiratory failure. The degree of hypoxia does not correlate with findings on CT scan, ? aspiration pneumonia or a right to left shunt? PMH: Acute respiratory failure Recognized standard criteria for respiratory failure includes: (Source: [facility] Hospitalist Jun 2013) ABGs (1 or more) Symptoms: ? PO2 <60 or RA SpO2 <91% ? Tachypnea, SOB, dyspnea ? PcO2 >50 and pH <7.35 ? Pallor or cyanosis ? pO2 decrease or pcO2 increase ? Anxiety or restlessness by 10 mm/Hg from baseline if known ? Use of accessory muscles ? Retractions (grunting in newborns) ? Unable to speak in complete sentences Consistency and Clarity of documentation within the medical record: Please clarify in the Progress Notes: Acute hypoxic respiratory failure Acute respiratory failure * Other (please specify) * Unable to determine Use of terms such as suspected, likely, concern for, or probable (associated with a specific diagnosis that is being evaluated, monitored, or treated as if it exists) are acceptable and can be coded in the inpatient setting, when documented at the time of discharge. Thank you, Abigail Torres [facility], CDIS Extension: [phone] Please use your independent medical judgment in providing your response. THIS QUERY IS PART OF THE PERMANENT MEDICAL RECORD Provider Response: Other Other Diagnosis: Review of data ; acute hypoxic respiratory failure related to severe pulmonary hypertension as documented at [facility] 3/2 O2 2
[2022-01-12 11:21] LABS: Glucose, Whole Blood 370 mg/dL (60-115)
--- NOTE | 2022-01-12 13:47 | PM.PNPUL ---
Subjective Subjective Date of Service: 01/12/22 Principal diagnosis: hypoxic resp failure, CHF, abn EKG Interval history: Dyspnea and hypoxia improved, however still requires supplemental oxygen at 2 L continuous flow to maintain normal oximetry. Renal indices are trending up. Objective Data Labs CBC & Chem 7: 01/12/22 05:21 01/12/22 05:21 Labs: Laboratory Results - last 24 hr 01/11/22 01/12/22 01/12/22 15:30 05:21 05:21 WBC 6.8 RBC 4.82 Hgb 11.8 L Hct 40.9 L MCV 84.9 MCH 24.5 L MCHC 28.9 L RDW 17.9 H Plt Count 290 MPV 9.7 Immature Gran % (Auto) 0.3 Neut % (Auto) 92.8 H Lymph % (Auto) 4.7 L [place] % (Auto) 2.2 Eos % (Auto) 0.0 Baso % (Auto) 0.0 Lymph # (Auto) 0.3 L [place] # (Auto) 0.2 Eos # (Auto) 0.0 Baso # (Auto) 0.0 Abs Immat Gran (auto) 0.02 Absolute Neuts (auto) 6.3 Absolute Nucleated RBC 0.000 Nucleated RBC % (auto) 0.0 Smear Tech's Comments VERIFIED Sodium 139 Potassium 4.9 Chloride 94 L Carbon Dioxide 34 H Anion Gap 16 BUN 36 H Creatinine 1.36 Estim Creat Clear Calc 57.4 Estimated GFR 53 POC Glucose 273 H Fasting Glucose 434 H* D Calcium 8.8 Total Bilirubin 0.2 AST 6 ALT 9 Alkaline Phosphatase 65 B-Natriuretic Peptide Total Protein 6.8 Albumin 3.5 01/12/22 01/12/22 01/12/22 05:21 07:28 11:03 WBC RBC Hgb Hct MCV MCH MCHC RDW Plt Count MPV Immature Gran % (Auto) Neut % (Auto) Lymph % (Auto) [place] % (Auto) Eos % (Auto) Baso % (Auto) Lymph # (Auto) [place] # (Auto) Eos # (Auto) Baso # (Auto) Abs Immat Gran (auto) Absolute Neuts (auto) Absolute Nucleated RBC Nucleated RBC % (auto) Smear Tech's Comments Sodium Potassium Chloride Carbon Dioxide Anion Gap BUN Creatinine Estim Creat Clear Calc Estimated GFR POC Glucose 356 H* 370 H* Fasting Glucose Calcium Total Bilirubin AST ALT Alkaline Phosphatase B-Natriuretic Peptide 166 H Total Protein Albumin Microbiology Microbiology Results: Microbiology 01/09/22 19:01 Blood - Venous Blood Culture - Preliminary No growth after 48 hours. 01/09/22 19:01 Blood - Venous Blood Culture - Preliminary No growth after 48 hours. Review of Systems Cardiovascular: Reports dyspnea and Reports dyspnea on exertion Respiratory: Denies cough, Denies excessive phlegm production, Reports dyspnea and Reports dyspnea on exertion Physical Exam Vital Signs: Vital Signs: Last Vital Signs Temp 98.9 F 01/12/22 11:04 Pulse 80 01/12/22 11:04 Resp 18 01/12/22 11:04 BP 109/60 01/12/22 11:04 Pulse Ox 93 01/12/22 12:20 O2 Del Method 01/12/22 12:20 O2 Flow Rate 2 01/12/22 12:20 BMI result Body Mass Index 21.8 Const: General: no acute distress, alert and awake Eyes: Sclerae: sclerae normal EOM: EOMs intact bilaterally Neck: Neck: Yes no lymphadenopathy, Yes trachea midline and Yes supple Resp: Effort & Inspection: normal respiratory effort and no respiratory distress Auscultation: clear to auscultation bilaterally Cardio: Rate: regular rate Rhythm: regular rhythm Heart sounds: no gallops, no murmurs and no rubs GI: Palpation (GI): Soft to palpation and Other GI palpation findings present ( Nontender) Auscultation: normal bowel sounds Extrem: General: No clubbing, No cyanosis and Yes edema ( Trace bilateral) Procedures Date of Service Date of Service: 01/12/22 Assessment and Plan Assessment and plan (1) Dyspnea on exertion: Status: Acute (2) Pulmonary hypertension: Status: Acute Plan Impression: 61-year-old gentleman admitted with decompensated congestive heart failure, now with significant improvement in his respiratory status, however still hypoxic. 2D echocardiogram from September of 2021 from [facility] demonstrates elevated right-sided pressures at 60-70 millimeter of mercury. Likely underlying pulmonary arterial versus venous hypertension. Appears to be euvolemic at this time. Recommendations: Would benefit from right heart catheterization to determine right-sided pressures and wedge. Will start on sildenafil 20mg 3 times a day. Time Spent With Patient Time: Total time spent is greater than 50% in coordination of care (as documented) at patient's floor/unit and/or counseling patient: Progress Note: Quality Stroke Does the patient have a stroke diagnosis?: No
--- NOTE | 2022-01-12 14:02 | HO.PM.IMPN ---
Subjective Subjective Date of Service: 01/12/22 Interval History: no acute issues overnight Review of Systems denies chest pain Denies shortness of breath Denies nausea vomiting diarrhea Denies fever chills Physical Exam Vital Signs: Vital Signs: Last Vital Signs Temp 98.9 F 01/12/22 11:04 Pulse 80 01/12/22 11:04 Resp 18 01/12/22 11:04 BP 109/60 01/12/22 11:04 Pulse Ox 93 01/12/22 12:20 O2 Del Method 01/12/22 12:20 O2 Flow Rate 2 01/12/22 12:20 BMI result Body Mass Index 21.8 Const: Other: no acute distress Resp: Other: bilateral basilar crackles noted Cardio: Other: no S4; positive S1-S2; no S3 murmurs rubs gallops Extrem: Other: no edema bilaterally Objective Data Active Medications Acetaminophen (Acetaminophen 325 Mg Tablet) 650 mg PO Q6H PRN PRN Reason: Pain, Mild (Pain Scale 1-3) Albuterol/Ipratropium (Albuterol/Iprat 2.5/0.5mg 3 Ml Ampul.Neb) 3 ml INHALE Q4H PRN PRN Reason: Shortness of Breath/Wheezing Albuterol/Ipratropium (Albuterol/Iprat 2.5/0.5mg 3 Ml Ampul.Neb) 3 ml INHALE RQ4H WHILE AWAKE [facility] Last Admin: 01/12/22 11:02 Dose: Not Given Documented By: GETACHEW Non-Admin Reason: Patient Refused Atorvastatin Calcium (Atorvastatin Calcium 40 Mg Tablet) 40 mg PO DAILY [facility] Last Admin: 01/12/22 08:04 Dose: 40 mg Documented By: BRENNON Dextrose (Dextrose 50 % 25 Gm/50 Ml Syringe) 25 gm IVPUSH Q15M PRN; Protocol PRN Reason: per Hypoglycemia Standing Ord. Divalproex Sodium (Divalproex Sodium Er 250 Mg Tab.Er.24h) 250 mg PO DAILY@1700 [facility] Last Admin: 01/11/22 16:15 Dose: 250 mg Documented By: FREDO Divalproex Sodium (Divalproex Sodium Er 500 Mg Tab.Er.24h) 500 mg PO DAILY [facility] Last Admin: 01/12/22 08:04 Dose: 500 mg Documented By: BRENNON Doxycycline Hyclate (Doxycycline Hyclate 100 Mg Tablet) 100 mg PO Q12H [facility] Last Admin: 01/12/22 08:04 Dose: 100 mg Documented By: BRENNON Enoxaparin Sodium (Enoxaparin Sodium 40 Mg/0.4 Ml Syringe) 40 mg SUBCUT Q24H [facility] Last Admin: 01/11/22 21:05 Dose: 40 mg Documented By: CLAIR Ferrous Sulfate (Ferrous Sulfate 324 Mg Tablet.Dr) 324 mg PO BID [facility] Last Admin: 01/12/22 08:04 Dose: 324 mg Documented By: BRENNON Fluticasone Propionate (Fluticasone Propionate Nasal 16 Gm [place]) 1 spray NOSTRIL-B BID [facility] Last Admin: 01/12/22 08:12 Dose: Not Given Documented By: BRENNON Non-Admin Reason: Patient Refused Furosemide (Furosemide 40 Mg/4 Ml Vial) 40 mg IVPUSH Q12H [facility]; Protocol Last Admin: 01/12/22 08:11 Dose: 40 mg Documented By: BRENNON Glucose (Glucose Gel 15 Gm Gel..Gram.) 15 gm PO Q15M PRN; Protocol PRN Reason: per Hypoglycemia Standing Ord. Haloperidol (Haloperidol 5 Mg Tablet) 5 mg PO DAILY@1700 [facility] Last Admin: 01/11/22 16:15 Dose: 5 mg Documented By: FREDO Haloperidol (Haloperidol 5 Mg Tablet) 10 mg PO BID [facility] Last Admin: 01/12/22 08:04 Dose: 10 mg Documented By: BRENNON Insulin Glargine (Insulin Glargine,Hum.Rec.Anlog 100 Unit/Ml 10 Ml Vial) 10 unit SUBCUT BEDTIME [facility] Last Admin: 01/11/22 21:05 Dose: 10 unit Documented By: CLAIR Insulin Human Lispro (Insulin Lispro 100 Unit/Ml 3 Ml Vial) 0 unit SUBCUT QIDACHS [facility]; Protocol Last Admin: 01/12/22 12:06 Dose: Not Given Documented By: BRENNON Non-Admin Reason: Previously Administered Lorazepam (Lorazepam 1 Mg Tablet) 1 mg PO DAILY PRN PRN Reason: Anxiety Last Admin: 01/10/22 21:10 Dose: 1 mg Documented By: GENEI Melatonin (Melatonin 3 Mg Tablet) 6 mg PO BEDTIME PRN PRN Reason: Insomnia Last Admin: 01/10/22 21:10 Dose: 6 mg Documented By: GENIE Methylprednisolone Sodium Succinate (Methylprednisolone Sod Succ 40 Mg/Ml Vial) 40 mg IVPUSH Q6H [facility] Last Admin: 01/12/22 13:18 Dose: 40 mg Documented By: BRENNON Morphine Sulfate (Morphine Sulfate 4 Mg/Ml Cartridge) 1 mg IVPUSH Q4H PRN; Protocol PRN Reason: Pain, SOB Neomycin/Polymyxin/Hydrocortisone (Neomycin/Polymyxin/Hc Otic Melanie 10 Ml Drpbtl) 3 drop EAR-RIGHT QID [facility] Last Admin: 01/12/22 13:08 Dose: Not Given Documented By: BRENNON Non-Admin Reason: Patient Refused Omeprazole (Omeprazole 20 Mg Capsule.Dr) 20 mg PO DAILY@0630 [facility] Last Admin: 01/12/22 05:38 Dose: Not Given Documented By: GENIE Non-Admin Reason: Patient Refused Senna (Sennosides 8.6 Mg Tablet) 17.2 mg PO BEDTIME PRN PRN Reason: Constipation Sildenafil Citrate (Sildenafil Citrate 20 Mg Tablet) 20 mg PO TID [facility] Sodium Chloride (0.9 % Sodium Chloride Flush 3 Ml Syringe) 3 ml IVFLUSH QSHIFT [facility] Last Admin: 01/12/22 08:09 Dose: 3 ml Documented By: BRENNON Labs CBC & Chem 7: 01/12/22 05:21 01/12/22 05:21 Labs: Laboratory Results - last 24 hr 01/11/22 01/12/22 01/12/22 15:30 05:21 05:21 MCV 84.9 MCH 24.5 L MCHC 28.9 L RDW 17.9 H Plt Count 290 MPV 9.7 Immature Gran % (Auto) 0.3 Neut % (Auto) 92.8 H Lymph % (Auto) 4.7 L [place] % (Auto) 2.2 Eos % (Auto) 0.0 Baso % (Auto) 0.0 Lymph # (Auto) 0.3 L [place] # (Auto) 0.2 Eos # (Auto) 0.0 Baso # (Auto) 0.0 Abs Immat Gran (auto) 0.02 Absolute Neuts (auto) 6.3 Absolute Nucleated RBC 0.000 Nucleated RBC % (auto) 0.0 Smear Tech's Comments VERIFIED Anion Gap 16 Estim Creat Clear Calc 57.4 Estimated GFR 53 POC Glucose 273 H Fasting Glucose 434 H* D Calcium 8.8 Total Bilirubin 0.2 AST 6 ALT 9 Alkaline Phosphatase 65 B-Natriuretic Peptide Total Protein 6.8 Albumin 3.5 01/12/22 01/12/22 01/12/22 05:21 07:28 11:03 MCV MCH MCHC RDW Plt Count MPV Immature Gran % (Auto) Neut % (Auto) Lymph % (Auto) [place] % (Auto) Eos % (Auto) Baso % (Auto) Lymph # (Auto) [place] # (Auto) Eos # (Auto) Baso # (Auto) Abs Immat Gran (auto) Absolute Neuts (auto) Absolute Nucleated RBC Nucleated RBC % (auto) Smear Tech's Comments Anion Gap Estim Creat Clear Calc Estimated GFR POC Glucose 356 H* 370 H* Fasting Glucose Calcium Total Bilirubin AST ALT Alkaline Phosphatase B-Natriuretic Peptide 166 H Total Protein Albumin Microbiology Microbiology Results: Microbiology 01/09/22 19:01 Blood Culture - Preliminary Blood - Venous No growth after 48 hours. 01/09/22 19:01 Blood Culture - Preliminary Blood - Venous No growth after 48 hours. Assessment and Plan (1) Acute CHF: Status: Acute (2) Pulmonary hypertension: Status: Acute Plan 61-year-old male with a past medical history of hyperlipidemia, diabetes, schizophrenia, care home resident, recent admission to the hospital for acute hypoxic respiratory failure presents with worsening SOB with O2 requirement 1.Acute CHF - adequately diuresed. -follow renals/divalents 2. Pulmonary hypertension - sildenafil as per Pulmonary 3.Diabetes II - restart oral therapies - lispro correctional scale - add back metformin/ Januvia - adjust as indicated 4.Schizophrenia - continue outpatient therapies Lovenox Full Code requires ongoing hospitalization for initiation of Sildenafil Quality Stroke Does the patient have a stroke diagnosis?: No VTE Prior VTE?: No VTE Risk Level:: Medical - moderate - high VTE Device Contraindication: Treatment Not Indicated VTE Drug Contraindication: N/A - Med Ordered
[2022-01-12] MEDS: Albuterol/Iprat 2.5/0.5MG 3 ML AMPUL.NEB INHALE (14:52)
--- NOTE | 2022-01-12 15:46 | MHC.CM.PN ---
nurse case management not e electronic medical record reviewed along with case discussed with [facility] skilled nursing care facilityies ; [facility], [facility], [facility] [place],[facility], [facility], [facility], [facility], [facility], [facility] timothy, yaritza,liv,betsy/w, rodolfo nair, fitz tian, [facility], [place]isa [place], [place] christiano , [facility] , [facility], [facility], [facility] care [facility] [place], care [place] all have no bed availability , [facility], [facility] no behavioral beds . [facility], [facility], ;[facility], me christiano , [facility] . [facility] no contrat, [place], [facility], [place] [facility], [facility] , [facility] , [facility], [facility] [place], no bed availability [facility] reviewing chelojackinabil jaureguidelanogerry out of network holly ayala and told them he would be coming with [facility] provider to continue to follow
[2022-01-12 16:10] LABS: Glucose, Whole Blood 349 mg/dL (60-115)
[2022-01-12] MEDS: Insulin Lispro 100 UNIT/ML 3 ML VIAL SUBCUT ×2 (16:21→20:41)
[2022-01-12] MEDS: Divalproex Sodium ER 250 MG TAB.ER.24H PO (16:22)
[2022-01-12] MEDS: HaloperidoL 5 MG TABLET PO (16:22)
[2022-01-12] MEDS: Enoxaparin Sodium 40 MG/0.4 ML SYRINGE SUBCUT (20:08)
[2022-01-12] MEDS: Sildenafil Citrate 20 MG TABLET PO (20:09)
[2022-01-12 20:30] LABS: Glucose, Whole Blood 431 mg/dL (60-115)
[2022-01-12] MEDS: Insulin Glargine,Hum.rec.anlog 100 UNIT/ML 10 ML VIAL 10 UNIT SUBCUT (20:41)
--- NOTE | 2022-01-12 22:35 | PC.NURSE ---
2015 POC-[id number] notified.Pt received 10 units of humalog per scale and 10 units of lantus.No additional insulin per
[2022-01-12] MEDS: Melatonin 3 MG TABLET 6 MG PO (23:48)
[2022-01-13] VITALS (9 sets, daily range): BP systolic 94–120; BP diastolic 50–73; PULSE 56–78; RESP 16–18; TEMP 36.1–36.8; O2SAT 94–98
[2022-01-13] MEDS: methylPREDNISolone Sod Succ 40 MG/ML VIAL IVPUSH ×2 (01:44→07:57)
[2022-01-13] MEDS: Omeprazole 20 MG CAPSULE.DR PO (05:59)
[2022-01-13 06:22] LABS: MANUAL DIFF FLAG NO
[2022-01-13 06:37] LABS: Hematocrit 42.8 % (42.0-52.0); Hemoglobin 12.5 g/dl (14.0-18.0); Imm Gran Abs Auto 0.02 X10*3/uL (0.00-0.03); Imm Gran Pct Auto 0.3 % (0.0-0.4); Lymphocytes Absolute Auto 0.5 X10*3/uL (1.2-4.9); Lymphocytes Percent Auto 7.8 % (20-40); Mean Corpuscular HGB Conc 29.2 g/dl (31.0-36.0); Mean Corpuscular Hemoglobin 24.4 pg (27.0-33.0); Mean Corpuscular Volume 83.4 fL (80.0-98.0); Mean Platelet Volume 9.6 fL (9.4-12.4); Monocytes Absolute Auto 0.2 X10*3/uL (0.1-1.2); Monocytes Percent Auto 3.7 % (2-11); Neutrophils Absolute Auto 5.2 x10*3/uL (2.0-8.3); Neutrophils Percent Auto 88.2 % (45-73); Platelet Count 278 X10*3/uL (160-400); Red Blood Count 5.13 X10*6/uL (4.60-5.80); Red Cell Distribution Width 17.2 % (11.0-16.0); White Blood Count 5.9 X10*3/uL (4.8-10.8)
[2022-01-13 06:50] LABS: B Type Natriuretic Peptide 142 pg/mL (<100)
[2022-01-13 07:01] LABS: Alanine Aminotransferase 6 U/L (0-40); Albumin Level 3.5 g/dL (3.5-5.0); Alkaline Phosphatase 55 U/L (39-117); Anion Gap 12 (12-20); Aspartate Amino Transferase 7 U/L (5-37); Bilirubin Total 0.5 mg/dL (0.0-1.0); Blood Urea Nitrogen 29 mg/dL (9-16); Calcium 9.2 mg/dL (8.4-10.2); Carbon Dioxide 40 mmol/L (22-29); Chloride 93 mmol/L (96-108); Estimated Glomerular Filt Rate > 60; Glucose Fasting 384 mg/dL (60-99); Potassium 5.1 mmol/L (3.3-5.1); Sodium 140 mmol/L (135-145); Total Protein 6.7 g/dL (6.5-8.0)
[2022-01-13 07:35] LABS: Glucose, Whole Blood 393 mg/dL (60-115)
[2022-01-13] MEDS: Sildenafil Citrate 20 MG TABLET PO ×3 (07:57→20:17)
[2022-01-13] MEDS: Insulin Lispro 100 UNIT/ML 3 ML VIAL SUBCUT ×4 (07:57→20:18)
[2022-01-13] MEDS: Atorvastatin Calcium 40 MG TABLET PO (07:57)
[2022-01-13] MEDS: Divalproex Sodium ER 500 MG TAB.ER.24H PO (07:57)
[2022-01-13] MEDS: Ferrous Sulfate 324 MG TABLET.DR PO ×2 (07:57→20:17)
[2022-01-13] MEDS: HaloperidoL 5 MG TABLET 10 MG PO ×2 (07:57→20:17)
[2022-01-13] MEDS: 0.9 % Sodium Chloride Flush 3 ML SYRINGE IVFLUSH ×3 (07:58→20:22)
[2022-01-13] MEDS: Albuterol/Iprat 2.5/0.5MG 3 ML AMPUL.NEB INHALE ×3 (08:26→19:42)
[2022-01-13 11:41] LABS: Glucose, Whole Blood 398 mg/dL (60-115)
--- NOTE | 2022-01-13 12:30 | P.PNIM_ITS ---
Subjective Subjective Date of Service: 01/13/22 Interval History: no acute issues overnight Review of Systems denies chest pain Denies shortness of breath Denies nausea vomiting diarrhea Denies fever chills Physical Exam Vital Signs: Vital Signs: Last Vital Signs Temp 97.8 F 01/13/22 11:24 Pulse 76 01/13/22 11:36 Resp 18 01/13/22 11:36 BP 97/56 L 01/13/22 11:24 Pulse Ox 96 01/13/22 11:24 O2 Del Method 01/13/22 11:24 O2 Flow Rate 3 01/13/22 11:24 BMI result Body Mass Index 21.8 Const: Other: no acute distress Resp: Other: bilateral basilar crackles noted Cardio: Other: no S4; positive S1-S2; no S3 murmurs rubs gallops Extrem: Other: no edema bilaterally Objective Data Active Medications Acetaminophen (Acetaminophen 325 Mg Tablet) 650 mg PO Q6H PRN PRN Reason: Pain, Mild (Pain Scale 1-3) Albuterol/Ipratropium (Albuterol/Iprat 2.5/0.5mg 3 Ml Ampul.Neb) 3 ml INHALE Q4H PRN PRN Reason: Shortness of Breath/Wheezing Albuterol/Ipratropium (Albuterol/Iprat 2.5/0.5mg 3 Ml Ampul.Neb) 3 ml INHALE RQ4H WHILE AWAKE [facility] Last Admin: 01/13/22 11:35 Dose: 3 ml Documented By: JESSE Atorvastatin Calcium (Atorvastatin Calcium 40 Mg Tablet) 40 mg PO DAILY [facility] Last Admin: 01/13/22 07:57 Dose: 40 mg Documented By: MANSOOR Dextrose (Dextrose 50 % 25 Gm/50 Ml Syringe) 25 gm IVPUSH Q15M PRN; Protocol PRN Reason: per Hypoglycemia Standing Ord. Divalproex Sodium (Divalproex Sodium Er 250 Mg Tab.Er.24h) 250 mg PO DAILY@1700 [facility] Last Admin: 01/12/22 16:22 Dose: 250 mg Documented By: BRENNON Divalproex Sodium (Divalproex Sodium Er 500 Mg Tab.Er.24h) 500 mg PO DAILY [facility] Last Admin: 01/13/22 07:57 Dose: 500 mg Documented By: MANSOOR Doxycycline Hyclate (Doxycycline Hyclate 100 Mg Tablet) 100 mg PO Q12H [facility] Last Admin: 01/13/22 07:57 Dose: 100 mg Documented By: MANSOOR Enoxaparin Sodium (Enoxaparin Sodium 40 Mg/0.4 Ml Syringe) 40 mg SUBCUT Q24H [facility] Last Admin: 01/12/22 20:08 Dose: 40 mg Documented By: ESTELLE Ferrous Sulfate (Ferrous Sulfate 324 Mg Tablet.Dr) 324 mg PO BID [facility] Last Admin: 01/13/22 07:57 Dose: 324 mg Documented By: MANSOOR Fluticasone Propionate (Fluticasone Propionate Nasal 16 Gm [place]) 1 spray NOSTRIL-B BID [facility] Last Admin: 01/13/22 07:59 Dose: Not Given Documented By: MANSOOR Non-Admin Reason: Patient Refused Glucose (Glucose Gel 15 Gm Gel..Gram.) 15 gm PO Q15M PRN; Protocol PRN Reason: per Hypoglycemia Standing Ord. Haloperidol (Haloperidol 5 Mg Tablet) 5 mg PO DAILY@1700 [facility] Last Admin: 01/12/22 16:22 Dose: 5 mg Documented By: BRENNON Haloperidol (Haloperidol 5 Mg Tablet) 10 mg PO BID [facility] Last Admin: 01/13/22 07:57 Dose: 10 mg Documented By: MANSOOR Insulin Glargine (Insulin Glargine,Hum.Rec.Anlog 100 Unit/Ml 10 Ml Vial) 10 unit SUBCUT BEDTIME [facility] Last Admin: 01/12/22 20:41 Dose: 10 unit Documented By: ESTELLE Insulin Human Lispro (Insulin Lispro 100 Unit/Ml 3 Ml Vial) 0 unit SUBCUT QIDACHS [facility]; Protocol Last Admin: 01/13/22 11:52 Dose: 10 unit Documented By: MANSOOR Lorazepam (Lorazepam 1 Mg Tablet) 1 mg PO DAILY PRN PRN Reason: Anxiety Last Admin: 01/10/22 21:10 Dose: 1 mg Documented By: GENIE Melatonin (Melatonin 3 Mg Tablet) 6 mg PO BEDTIME PRN PRN Reason: Insomnia Last Admin: 01/12/22 23:48 Dose: 6 mg Documented By: ESTELLE Methylprednisolone Sodium Succinate (Methylprednisolone Sod Succ 40 Mg/Ml Vial) 40 mg IVPUSH Q6H [facility] Last Admin: 01/13/22 07:57 Dose: 40 mg Documented By: MANSOOR Morphine Sulfate (Morphine Sulfate 4 Mg/Ml Cartridge) 1 mg IVPUSH Q4H PRN; Protocol PRN Reason: Pain, SOB Neomycin/Polymyxin/Hydrocortisone (Neomycin/Polymyxin/Hc Otic Melanie 10 Ml Drpbtl) 3 drop EAR-RIGHT QID [facility] Last Admin: 01/13/22 07:59 Dose: Not Given Documented By: MANSOOR Non-Admin Reason: Patient Refused Omeprazole (Omeprazole 20 Mg Capsule.Dr) 20 mg PO DAILY@0630 [facility] Last Admin: 01/13/22 05:59 Dose: 20 mg Documented By: ESTELLE Senna (Sennosides 8.6 Mg Tablet) 17.2 mg PO BEDTIME PRN PRN Reason: Constipation Sildenafil Citrate (Sildenafil Citrate 20 Mg Tablet) 20 mg PO TID [facility] Last Admin: 01/13/22 07:57 Dose: 20 mg Documented By: MANSOOR Sodium Chloride (0.9 % Sodium Chloride Flush 3 Ml Syringe) 3 ml IVFLUSH QSHIFT [facility] Last Admin: 01/13/22 07:58 Dose: 3 ml Documented By: MANSOOR Labs CBC & Chem 7: 01/13/22 06:01 01/13/22 06:01 Labs: Laboratory Results - last 24 hr 01/12/22 01/12/22 01/13/22 15:58 20:10 06:01 MCV 83.4 MCH 24.4 L MCHC 29.2 L RDW 17.2 H Plt Count 278 MPV 9.6 Immature Gran % (Auto) 0.3 Neut % (Auto) 88.2 H Lymph % (Auto) 7.8 L [place] % (Auto) 3.7 Eos % (Auto) 0.0 Baso % (Auto) 0.0 Lymph # (Auto) 0.5 L [place] # (Auto) 0.2 Eos # (Auto) 0.0 Baso # (Auto) 0.0 Abs Immat Gran (auto) 0.02 Absolute Neuts (auto) 5.2 Absolute Nucleated RBC 0.000 Nucleated RBC % (auto) 0.0 Anion Gap Estim Creat Clear Calc Estimated GFR POC Glucose 349 H 431 H* Fasting Glucose Calcium Total Bilirubin AST ALT Alkaline Phosphatase B-Natriuretic Peptide Total Protein Albumin 06/11/22 06/11/22 06/11/22 06:01 06:01 07:26 MCV MCH MCHC RDW Plt Count MPV Immature Gran % (Auto) Neut % (Auto) Lymph % (Auto) [place] % (Auto) Eos % (Auto) Baso % (Auto) Lymph # (Auto) [place] # (Auto) Eos # (Auto) Baso # (Auto) Abs Immat Gran (auto) Absolute Neuts (auto) Absolute Nucleated RBC Nucleated RBC % (auto) Anion Gap 12 Estim Creat Clear Calc 71.0 Estimated GFR > 60 POC Glucose 393 H* Fasting Glucose 384 H* Calcium 9.2 Total Bilirubin 0.5 AST 7 ALT 6 Alkaline Phosphatase 55 B-Natriuretic Peptide 142 H Total Protein 6.7 Albumin 3.5 01/13/22 11:26 MCV MCH MCHC RDW Plt Count MPV Immature Gran % (Auto) Neut % (Auto) Lymph % (Auto) [place] % (Auto) Eos % (Auto) Baso % (Auto) Lymph # (Auto) [place] # (Auto) Eos # (Auto) Baso # (Auto) Abs Immat Gran (auto) Absolute Neuts (auto) Absolute Nucleated RBC Nucleated RBC % (auto) Anion Gap Estim Creat Clear Calc Estimated GFR POC Glucose 398 H* Fasting Glucose Calcium Total Bilirubin AST ALT Alkaline Phosphatase B-Natriuretic Peptide Total Protein Albumin Assessment and Plan (1) Acute CHF: Status: Acute (2) Pulmonary hypertension: Status: Acute (3) Diabetes: Status: Acute Plan 61-year-old male with a past medical history of hyperlipidemia, diabetes, schizophrenia, alf resident, recent admission to the hospital for acute hypoxic respiratory failure presents with worsening SOB with O2 requirement 1.Acute CHF - adequately diuresed. -follow renals/divalents 2.Pulmonary hypertension - sildenafil as per Pulmonary - follow-up O2 sats 3.Diabetes II - restart oral therapies - lispro correctional scale - add back metformin/ Januvia - adjust as indicated - DC steroids 4.Schizophrenia - continue outpatient therapies Lovenox Full Code requires ongoing hospitalization for initiation of Sildenafil Quality Stroke Does the patient have a stroke diagnosis?: No VTE Prior VTE?: No VTE Risk Level:: Medical - moderate - high VTE Device Contraindication: Treatment Not Indicated VTE Drug Contraindication: N/A - Med Ordered
[2022-01-13] MEDS: SITagliptin Phosphate 100 MG TABLET PO (15:11)
[2022-01-13 15:27] LABS: Glucose, Whole Blood 437 mg/dL (60-115)
[2022-01-13] MEDS: Divalproex Sodium ER 250 MG TAB.ER.24H PO (16:57)
[2022-01-13] MEDS: HaloperidoL 5 MG TABLET PO (16:57)
[2022-01-13] MEDS: metFORMIN HCl 500 MG TABLET PO (16:57)
--- NOTE | 2022-01-13 17:55 | PC.NURSE ---
dinner poc was 437, aware, no new orders
[2022-01-13 19:58] LABS: Glucose, Whole Blood 267 mg/dL (60-115)
[2022-01-13] MEDS: Insulin Glargine,Hum.rec.anlog 100 UNIT/ML 10 ML VIAL 10 UNIT SUBCUT (20:17)
[2022-01-13] MEDS: Enoxaparin Sodium 40 MG/0.4 ML SYRINGE SUBCUT (20:17)
[2022-01-14] MEDS: Omeprazole 20 MG CAPSULE.DR PO (04:25)
[2022-01-14 07:18] VITALS: BP 100/63; PULSE 72; RESP 18; TEMP 36.6; O2SAT 98
[2022-01-14 07:31] LABS: Glucose, Whole Blood 229 mg/dL (60-115)
[2022-01-14] MEDS: Insulin Lispro 100 UNIT/ML 3 ML VIAL SUBCUT ×3 (07:52→20:07)
[2022-01-14] MEDS: 0.9 % Sodium Chloride Flush 3 ML SYRINGE IVFLUSH (07:53)
[2022-01-14] MEDS: HaloperidoL 5 MG TABLET 10 MG PO ×2 (07:53→20:13)
[2022-01-14] MEDS: SITagliptin Phosphate 100 MG TABLET PO (07:53)
[2022-01-14] MEDS: Sildenafil Citrate 20 MG TABLET PO ×3 (07:53→20:07)
[2022-01-14] MEDS: Ferrous Sulfate 324 MG TABLET.DR PO ×2 (07:53→20:07)
[2022-01-14] MEDS: Divalproex Sodium ER 500 MG TAB.ER.24H PO (07:53)
[2022-01-14] MEDS: Atorvastatin Calcium 40 MG TABLET PO (07:53)
[2022-01-14] MEDS: metFORMIN HCl 500 MG TABLET PO ×2 (07:53→16:27)
[2022-01-14] MEDS: Albuterol/Iprat 2.5/0.5MG 3 ML AMPUL.NEB INHALE (07:58)
--- NOTE | 2022-01-14 09:35 | HO.PM.IMPN ---
Subjective Subjective Date of Service: 01/14/22 Interval History: improvement in sats with addition of sildenafil Review of Systems denies chest pain Denies shortness of breath Denies nausea vomiting diarrhea Denies fever chills Physical Exam Vital Signs: Vital Signs: Last Vital Signs Temp 97.8 F 01/14/22 07:18 Pulse 72 01/14/22 07:18 Resp 18 01/14/22 07:18 BP 100/63 01/14/22 07:18 Pulse Ox 98 01/14/22 07:18 O2 Del Method 01/14/22 07:18 O2 Flow Rate 3 01/14/22 07:18 BMI result Body Mass Index 21.8 Const: Other: no acute distress Resp: Other: bilateral basilar crackles noted Cardio: Other: no S4; positive S1-S2; no S3 murmurs rubs gallops Extrem: Other: no edema bilaterally Objective Data Active Medications Acetaminophen (Acetaminophen 325 Mg Tablet) 650 mg PO Q6H PRN PRN Reason: Pain, Mild (Pain Scale 1-3) Albuterol/Ipratropium (Albuterol/Iprat 2.5/0.5mg 3 Ml Ampul.Neb) 3 ml INHALE Q4H PRN PRN Reason: Shortness of Breath/Wheezing Albuterol/Ipratropium (Albuterol/Iprat 2.5/0.5mg 3 Ml Ampul.Neb) 3 ml INHALE RQ4H WHILE AWAKE [facility] Last Admin: 01/14/22 07:58 Dose: 3 ml Documented By: CEDRIC Atorvastatin Calcium (Atorvastatin Calcium 40 Mg Tablet) 40 mg PO DAILY [facility] Last Admin: 01/14/22 07:53 Dose: 40 mg Documented By: MANSOOR Dextrose (Dextrose 50 % 25 Gm/50 Ml Syringe) 25 gm IVPUSH Q15M PRN; Protocol PRN Reason: per Hypoglycemia Standing Ord. Divalproex Sodium (Divalproex Sodium Er 250 Mg Tab.Er.24h) 250 mg PO DAILY@1700 [facility] Last Admin: 01/13/22 16:57 Dose: 250 mg Documented By: MANSOOR Divalproex Sodium (Divalproex Sodium Er 500 Mg Tab.Er.24h) 500 mg PO DAILY [facility] Last Admin: 01/14/22 07:53 Dose: 500 mg Documented By: MANSOOR Doxycycline Hyclate (Doxycycline Hyclate 100 Mg Tablet) 100 mg PO Q12H [facility] Last Admin: 01/14/22 07:53 Dose: 100 mg Documented By: MANSOOR Enoxaparin Sodium (Enoxaparin Sodium 40 Mg/0.4 Ml Syringe) 40 mg SUBCUT Q24H [facility] Last Admin: 01/13/22 20:17 Dose: 40 mg Documented By: ESTELLE Ferrous Sulfate (Ferrous Sulfate 324 Mg Tablet.Dr) 324 mg PO BID [facility] Last Admin: 01/14/22 07:53 Dose: 324 mg Documented By: MANSOOR Fluticasone Propionate (Fluticasone Propionate Nasal 16 Gm [place]) 1 spray NOSTRIL-B BID [facility] Last Admin: 01/14/22 07:54 Dose: Not Given Documented By: MANSOOR Non-Admin Reason: Patient Refused Glucose (Glucose Gel 15 Gm Gel..Gram.) 15 gm PO Q15M PRN; Protocol PRN Reason: per Hypoglycemia Standing Ord. Haloperidol (Haloperidol 5 Mg Tablet) 5 mg PO DAILY@1700 [facility] Last Admin: 01/13/22 16:57 Dose: 5 mg Documented By: MANSOOR Haloperidol (Haloperidol 5 Mg Tablet) 10 mg PO BID [facility] Last Admin: 01/14/22 07:53 Dose: 10 mg Documented By: MANSOOR Insulin Glargine (Insulin Glargine,Hum.Rec.Anlog 100 Unit/Ml 10 Ml Vial) 10 unit SUBCUT BEDTIME [facility] Last Admin: 01/13/22 20:17 Dose: 10 unit Documented By: ESTELLE Insulin Human Lispro (Insulin Lispro 100 Unit/Ml 3 Ml Vial) 0 unit SUBCUT QIDACHS [facility]; Protocol Last Admin: 01/14/22 07:52 Dose: 4 unit Documented By: MANSOOR Lorazepam (Lorazepam 1 Mg Tablet) 1 mg PO DAILY PRN PRN Reason: Anxiety Last Admin: 01/10/22 21:10 Dose: 1 mg Documented By: GENIE Melatonin (Melatonin 3 Mg Tablet) 6 mg PO BEDTIME PRN PRN Reason: Insomnia Last Admin: 01/12/22 23:48 Dose: 6 mg Documented By: ESTELLE Metformin HCl (Metformin Hcl 500 Mg Tablet) 500 mg PO BIDWM [facility] Last Admin: 01/14/22 07:53 Dose: 500 mg Documented By: MANSOOR Morphine Sulfate (Morphine Sulfate 4 Mg/Ml Cartridge) 1 mg IVPUSH Q4H PRN; Protocol PRN Reason: Pain, SOB Neomycin/Polymyxin/Hydrocortisone (Neomycin/Polymyxin/Hc Otic Melanie 10 Ml Drpbtl) 3 drop EAR-RIGHT QID [facility] Last Admin: 01/14/22 07:54 Dose: Not Given Documented By: MANSOOR Non-Admin Reason: Patient Refused Omeprazole (Omeprazole 20 Mg Capsule.) 20 mg PO DAILY@0630 [facility] Last Admin: 01/14/22 04:25 Dose: 20 mg Documented By: ESTELLE Senna (Sennosides 8.6 Mg Tablet) 17.2 mg PO BEDTIME PRN PRN Reason: Constipation Sildenafil Citrate (Sildenafil Citrate 20 Mg Tablet) 20 mg PO TID [facility] Last Admin: 01/14/22 07:53 Dose: 20 mg Documented By: MANSOOR Sitagliptin Phosphate (Sitagliptin Phosphate 100 Mg Tablet) 100 mg PO DAILY [facility] Last Admin: 01/14/22 07:53 Dose: 100 mg Documented By: MANSOOR Sodium Chloride (0.9 % Sodium Chloride Flush 3 Ml Syringe) 3 ml IVFLUSH QSHIFT [facility] Last Admin: 01/14/22 07:53 Dose: 3 ml Documented By: MANSOOR Labs CBC & Chem 7: 01/13/22 06:01 01/13/22 06:01 Labs: Laboratory Results - last 24 hr 01/13/22 01/13/22 01/13/22 11:26 15:12 18:57 POC Glucose 398 H* 437 H* 267 H 01/14/22 07:17 POC Glucose 229 H Assessment and Plan (1) Pulmonary hypertension: Status: Acute (2) Diabetes: Status: Acute (3) Schizo affective schizophrenia: Status: Acute Plan 61-year-old male with a past medical history of hyperlipidemia, diabetes, schizophrenia, residential resident, recent admission to the hospital for acute hypoxic respiratory failure presents with worsening SOB with O2 requirement 1.Pulmonary hypertension - sildenafil as per Pulmonary...good response - follow-up O2 sats 3.Diabetes II - restart oral therapies - lispro correctional scale - add back metformin/ Januvia - adjust as indicated - DC steroids 4.Schizophrenia - continue outpatient therapies Lovenox Full Code requires ongoing hospitalization for initiation of Sildenafi; will require placementl Quality Stroke Does the patient have a stroke diagnosis?: No VTE Prior VTE?: No VTE Risk Level:: Medical - moderate - high VTE Device Contraindication: Treatment Not Indicated VTE Drug Contraindication: N/A - Med Ordered
[2022-01-14 11:35] LABS: Glucose, Whole Blood 184 mg/dL (60-115)
[2022-01-14 12:00] VITALS: BP 106/58; PULSE 81; RESP 18; TEMP 36.8; O2SAT 96
--- NOTE | 2022-01-14 13:40 | PC.NURSE ---
ok to leave IV out per MD.
[2022-01-14 15:34] LABS: Glucose, Whole Blood 149 mg/dL (60-115)
[2022-01-14 15:46] VITALS: BP 90/58; PULSE 80; RESP 18; TEMP 36.6; O2SAT 99
[2022-01-14] MEDS: HaloperidoL 5 MG TABLET PO (16:27)
[2022-01-14] MEDS: Divalproex Sodium ER 250 MG TAB.ER.24H PO (16:27)
[2022-01-14 19:20] LABS: Glucose, Whole Blood 290 mg/dL (60-115)
[2022-01-14 19:27] VITALS: BP 100/55; PULSE 65; RESP 18; TEMP 36.6; O2SAT 96
[2022-01-14] MEDS: Insulin Glargine,Hum.rec.anlog 100 UNIT/ML 10 ML VIAL 10 UNIT SUBCUT (20:08)
[2022-01-14 23:41] VITALS: BP 99/57; PULSE 75; RESP 18; TEMP 36.4; O2SAT 98
[2022-01-15] VITALS (7 sets, daily range): BP systolic 91–111; BP diastolic 52–66; PULSE 60–76; RESP 16–18; TEMP 36.2–36.7; O2SAT 90–99
[2022-01-15] MEDS: Omeprazole 20 MG CAPSULE.DR PO (05:39)
[2022-01-15 07:19] LABS: Glucose, Whole Blood 130 mg/dL (60-115)
[2022-01-15 09:30] LABS: Basophils Percent Auto 0.2 % (0-2); Eosinophils Absolute Auto 0.1 X10*3/uL (0.0-0.4); Eosinophils Percent Auto 2.7 % (0-4); Hematocrit 44.6 % (42.0-52.0); Hemoglobin 12.9 g/dl (14.0-18.0); Imm Gran Abs Auto 0.01 X10*3/uL (0.00-0.03); Imm Gran Pct Auto 0.2 % (0.0-0.4); Lymphocytes Absolute Auto 1.7 X10*3/uL (1.2-4.9); Lymphocytes Percent Auto 43.1 % (20-40); MANUAL DIFF FLAG SCAN; Mean Corpuscular HGB Conc 28.9 g/dl (31.0-36.0); Mean Corpuscular Hemoglobin 23.7 pg (27.0-33.0); Mean Platelet Volume 9.9 fL (9.4-12.4); Monocytes Absolute Auto 0.6 X10*3/uL (0.1-1.2); Monocytes Percent Auto 14.5 % (2-11); Neutrophils Absolute Auto 1.6 x10*3/uL (2.0-8.3); Neutrophils Percent Auto 39.3 % (45-73); PLT CLUMP 1; Red Blood Count 5.44 X10*6/uL (4.60-5.80); Red Cell Distribution Width 17.4 % (11.0-16.0); SCAN SMEAR FLAG 1
[2022-01-15] MEDS: SITagliptin Phosphate 100 MG TABLET PO (09:51)
[2022-01-15] MEDS: HaloperidoL 5 MG TABLET 10 MG PO ×2 (09:51→21:51)
[2022-01-15] MEDS: Sildenafil Citrate 20 MG TABLET PO ×3 (09:52→21:51)
[2022-01-15] MEDS: Divalproex Sodium ER 500 MG TAB.ER.24H PO (09:52)
[2022-01-15] MEDS: Ferrous Sulfate 324 MG TABLET.DR PO ×2 (09:52→21:51)
[2022-01-15] MEDS: metFORMIN HCl 500 MG TABLET PO ×2 (09:52→16:18)
[2022-01-15] MEDS: Atorvastatin Calcium 40 MG TABLET PO (09:52)
[2022-01-15 09:54] LABS: Alanine Aminotransferase 8 U/L (0-40); Albumin Level 3.3 g/dL (3.5-5.0); Alkaline Phosphatase 44 U/L (39-117); Anion Gap 16 (12-20); Aspartate Amino Transferase 14 U/L (5-37); Bilirubin Total 0.5 mg/dL (0.0-1.0); Blood Urea Nitrogen 21 mg/dL (9-16); Calcium 8.9 mg/dL (8.4-10.2); Carbon Dioxide 34 mmol/L (22-29); Chloride 93 mmol/L (96-108); Creatinine Clr Calc Pharmacy 87.8; Estimated Glomerular Filt Rate > 60; Glucose Fasting 139 mg/dL (60-99); Potassium 5.5 mmol/L (3.3-5.1); Sodium 137 mmol/L (135-145); Total Protein 6.4 g/dL (6.5-8.0)
[2022-01-15] MEDS: NeoMYCIN/Polymyxin/HC Otic Sus 10 ML DRPBTL 3 DROP EAR-RIGHT (09:54)
--- NOTE | 2022-01-15 10:01 | P.PNIM_ITS ---
Subjective Subjective Date of Service: 01/15/22 Interval History: remains confused but cooperative Review of Systems denies chest pain Denies shortness of breath Denies nausea vomiting diarrhea Denies fever chills Physical Exam Vital Signs: Vital Signs: Last Vital Signs Temp 97.2 F 01/15/22 07:14 Pulse 65 01/15/22 07:14 Resp 18 01/15/22 07:14 BP 93/66 01/15/22 07:14 Pulse Ox 96 01/15/22 07:14 O2 Del Method 01/15/22 07:14 O2 Flow Rate 3 01/15/22 07:14 BMI result Body Mass Index 21.8 Const: Other: no acute distress Resp: Other: bilateral basilar crackles noted Cardio: Other: no S4; positive S1-S2; no S3 murmurs rubs gallops Extrem: Other: no edema bilaterally Objective Data Active Medications Acetaminophen (Acetaminophen 325 Mg Tablet) 650 mg PO Q6H PRN PRN Reason: Pain, Mild (Pain Scale 1-3) Albuterol/Ipratropium (Albuterol/Iprat 2.5/0.5mg 3 Ml Ampul.Neb) 3 ml INHALE Q4H PRN PRN Reason: Shortness of Breath/Wheezing Albuterol/Ipratropium (Albuterol/Iprat 2.5/0.5mg 3 Ml Ampul.Neb) 3 ml INHALE RQ4H WHILE AWAKE [facility] Last Admin: 01/15/22 07:57 Dose: Not Given Documented By: MARCIO Non-Admin Reason: Patient Refused Atorvastatin Calcium (Atorvastatin Calcium 40 Mg Tablet) 40 mg PO DAILY [facility] Last Admin: 01/15/22 09:52 Dose: 40 mg Documented By: CIRO Dextrose (Dextrose 50 % 25 Gm/50 Ml Syringe) 25 gm IVPUSH Q15M PRN; Protocol PRN Reason: per Hypoglycemia Standing Ord. Divalproex Sodium (Divalproex Sodium Er 250 Mg Tab.Er.24h) 250 mg PO DAILY@1700 [facility] Last Admin: 01/14/22 16:27 Dose: 250 mg Documented By: MANSOOR Divalproex Sodium (Divalproex Sodium Er 500 Mg Tab.Er.24h) 500 mg PO DAILY [facility] Last Admin: 01/15/22 09:52 Dose: 500 mg Documented By: CIRO Doxycycline Hyclate (Doxycycline Hyclate 100 Mg Tablet) 100 mg PO Q12H [facility] Last Admin: 01/15/22 09:52 Dose: 100 mg Documented By: CIRO Enoxaparin Sodium (Enoxaparin Sodium 40 Mg/0.4 Ml Syringe) 40 mg SUBCUT Q24H [facility] Last Admin: 01/14/22 20:13 Dose: Not Given Documented By: BLADIMIR Non-Admin Reason: Patient Refused Ferrous Sulfate (Ferrous Sulfate 324 Mg Tablet.) 324 mg PO BID [facility] Last Admin: 01/15/22 09:52 Dose: 324 mg Documented By: CIRO Fluticasone Propionate (Fluticasone Propionate Nasal 16 Gm [place]) 1 spray NOSTRIL-B BID [facility] Last Admin: 01/15/22 09:56 Dose: Not Given Documented By: CIRO Non-Admin Reason: Patient Refused Glucose (Glucose Gel 15 Gm Gel..Gram.) 15 gm PO Q15M PRN; Protocol PRN Reason: per Hypoglycemia Standing Ord. Haloperidol (Haloperidol 5 Mg Tablet) 5 mg PO DAILY@1700 [facility] Last Admin: 01/14/22 16:27 Dose: 5 mg Documented By: MANSOOR Haloperidol (Haloperidol 5 Mg Tablet) 10 mg PO BID [facility] Last Admin: 01/15/22 09:51 Dose: 10 mg Documented By: CIRO Insulin Glargine (Insulin Glargine,Hum.Rec.Anlog 100 Unit/Ml 10 Ml Vial) 10 unit SUBCUT BEDTIME [facility] Last Admin: 01/14/22 20:08 Dose: 10 unit Documented By: BLADIMIR Insulin Human Lispro (Insulin Lispro 100 Unit/Ml 3 Ml Vial) 0 unit SUBCUT QIDACHS [facility]; Protocol Last Admin: 01/15/22 09:53 Dose: Not Given Documented By: CIRO Non-Admin Reason: No Insulin Coverage Melatonin (Melatonin 3 Mg Tablet) 6 mg PO BEDTIME PRN PRN Reason: Insomnia Last Admin: 01/12/22 23:48 Dose: 6 mg Documented By: ESTELLE Metformin HCl (Metformin Hcl 500 Mg Tablet) 500 mg PO BIDWM [facility] Last Admin: 01/15/22 09:52 Dose: 500 mg Documented By: CIRO Neomycin/Polymyxin/Hydrocortisone (Neomycin/Polymyxin/Hc Otic Melanie 10 Ml Drpbtl) 3 drop EAR-RIGHT QID [facility] Last Admin: 01/15/22 09:54 Dose: 3 drop Documented By: CIRO Omeprazole (Omeprazole 20 Mg Capsule.Dr) 20 mg PO DAILY@0630 [facility] Last Admin: 01/15/22 05:39 Dose: 20 mg Documented By: CARMEN Senna (Sennosides 8.6 Mg Tablet) 17.2 mg PO BEDTIME PRN PRN Reason: Constipation Sildenafil Citrate (Sildenafil Citrate 20 Mg Tablet) 20 mg PO TID [facility] Last Admin: 01/15/22 09:52 Dose: 20 mg Documented By: CIRO Sitagliptin Phosphate (Sitagliptin Phosphate 100 Mg Tablet) 100 mg PO DAILY [facility] Last Admin: 01/15/22 09:51 Dose: 100 mg Documented By: CIRO Sodium Chloride (0.9 % Sodium Chloride Flush 3 Ml Syringe) 3 ml IVFLUSH QSHIFT [facility] Last Admin: 01/15/22 09:53 Dose: Not Given Documented By: CIRO Non-Admin Reason: No Access Labs CBC & Chem 7: 01/13/22 06:01 01/15/22 09:07 Labs: Laboratory Results - last 24 hr 01/14/22 01/14/22 01/14/22 11:28 15:14 19:03 Anion Gap Estim Creat Clear Calc Estimated GFR POC Glucose 184 H 149 H 290 H Fasting Glucose Calcium Total Bilirubin AST ALT Alkaline Phosphatase Total Protein Albumin 01/15/22 01/15/22 07:13 09:07 Anion Gap 16 Estim Creat Clear Calc 87.8 Estimated GFR > 60 POC Glucose 130 H Fasting Glucose 139 H D Calcium 8.9 Total Bilirubin 0.5 AST 14 D ALT 8 Alkaline Phosphatase 44 Total Protein 6.4 L Albumin 3.3 L Microbiology Microbiology Results: Microbiology 01/09/22 19:01 Blood Culture - Final Blood - Venous No growth after 5 days. 01/09/22 19:01 Blood Culture - Final Blood - Venous No growth after 5 days. Assessment and Plan (1) Pulmonary hypertension: Status: Acute (2) Diabetes: Status: Acute (3) Schizo affective schizophrenia: Status: Acute Plan 61-year-old male with a past medical history of hyperlipidemia, diabetes, schizophrenia, care home resident, recent admission to the hospital for acute hypoxic respiratory failure presents with worsening SOB with O2 requirement 1.Pulmonary hypertension - sildenafil as per Pulmonary...good response - follow-up O2 sats 3.Diabetes II - acceptable control - lispro correctional scale - adjust as indicated 4.Schizophrenia - continue outpatient therapies Lovenox Full Code requires ongoing hospitalization for initiation of Sildenafi; will require placementl Quality Stroke Does the patient have a stroke diagnosis?: No VTE Prior VTE?: No VTE Risk Level:: Medical - moderate - high VTE Device Contraindication: Treatment Not Indicated VTE Drug Contraindication: N/A - Med Ordered
[2022-01-15 10:35] LABS: Platelet Count 240 X10*3/uL (160-400)
[2022-01-15 10:37] LABS: SLIDE REVIEW VERIFIED
[2022-01-15 11:08] LABS: Glucose, Whole Blood 213 mg/dL (60-115)
[2022-01-15] MEDS: Insulin Lispro 100 UNIT/ML 3 ML VIAL SUBCUT ×3 (12:26→21:50)
--- NOTE | 2022-01-15 15:06 | MHC.CM.PN ---
CM SPOKE W/GUARDIAN ANDREW SLADE AT 2:45PM TO REVIEW BED OFFERS, ANDREWREPORTS SHE WOULD LIKE PT AT [facility] THEY HAVE A LOCKED UNIT RATHER THAN [place] OF , ANDREW ALSO GIVES VERBAL CONSENT FOR PFIZER BOOSTER TO BE GIVEN TOMORROW 01/16 BY [facility] PHARMACIST, ANTIC PT WILL BE ABLE D/C IN 1-2 DAYS TO [facility]. CM WILL CONT TO FOLLOW D/C NEEDS.
[2022-01-15 15:57] LABS: Glucose, Whole Blood 159 mg/dL (60-115)
[2022-01-15] MEDS: HaloperidoL 5 MG TABLET PO (16:18)
[2022-01-15] MEDS: Divalproex Sodium ER 250 MG TAB.ER.24H PO (16:18)
[2022-01-15 20:09] LABS: Glucose, Whole Blood 170 mg/dL (60-115)
[2022-01-15] MEDS: Insulin Glargine,Hum.rec.anlog 100 UNIT/ML 10 ML VIAL 10 UNIT SUBCUT (21:50)
[2022-01-16] VITALS (8 sets, daily range): BP systolic 96–138; BP diastolic 55–66; PULSE 65–73; RESP 16–20; TEMP 36.2–37.2; O2SAT 91–100
[2022-01-16] MEDS: Omeprazole 20 MG CAPSULE.DR PO (05:33)
[2022-01-16 06:19] LABS: MANUAL DIFF FLAG NO
[2022-01-16 06:28] LABS: Eosinophils Absolute Auto 0.2 X10*3/uL (0.0-0.4); Eosinophils Percent Auto 5.7 % (0-4); Hematocrit 38.9 % (42.0-52.0); Hemoglobin 11.3 g/dl (14.0-18.0); Imm Gran Abs Auto 0.01 X10*3/uL (0.00-0.03); Imm Gran Pct Auto 0.3 % (0.0-0.4); Lymphocytes Absolute Auto 1.3 X10*3/uL (1.2-4.9); Lymphocytes Percent Auto 40.1 % (20-40); Mean Corpuscular Hemoglobin 24.2 pg (27.0-33.0); Mean Corpuscular Volume 83.3 fL (80.0-98.0); Mean Platelet Volume 9.9 fL (9.4-12.4); Monocytes Absolute Auto 0.5 X10*3/uL (0.1-1.2); Monocytes Percent Auto 16.6 % (2-11); Neutrophils Absolute Auto 1.2 x10*3/uL (2.0-8.3); Neutrophils Percent Auto 37.3 % (45-73); Platelet Count 293 X10*3/uL (160-400); Red Blood Count 4.67 X10*6/uL (4.60-5.80); Red Cell Distribution Width 17.4 % (11.0-16.0); White Blood Count 3.1 X10*3/uL (4.8-10.8)
[2022-01-16 07:00] LABS: Alanine Aminotransferase 6 U/L (0-40); Alkaline Phosphatase 51 U/L (39-117); Anion Gap 10 (12-20); Bilirubin Total 0.2 mg/dL (0.0-1.0); Blood Urea Nitrogen 22 mg/dL (9-16); Carbon Dioxide 37 mmol/L (22-29); Chloride 95 mmol/L (96-108); Creatinine Clr Calc Pharmacy 85.9; Estimated Glomerular Filt Rate > 60; Glucose Fasting 178 mg/dL (60-99); Potassium 4.7 mmol/L (3.3-5.1); Sodium 137 mmol/L (135-145); Total Protein 5.5 g/dL (6.5-8.0)
[2022-01-16 07:11] LABS: Glucose, Whole Blood 234 mg/dL (60-115)
[2022-01-16 07:32] LABS: Aspartate Amino Transferase 7 U/L (5-37); Calcium 8.5 mg/dL (8.4-10.2)
[2022-01-16 11:27] LABS: Glucose, Whole Blood 173 mg/dL (60-115)
--- NOTE | 2022-01-16 12:05 | MHC.CM.PN ---
CM RECEIVED MESSAGE BACK FROM [facility] REPORTING THEY WILL NEED TO MAKE BED CHANGES PRIOR TO ADMISSION AND PT WILL NOT BE ABLE TO TXFR TODAY, PT AND GUARDIAN UPDATED. CM WILL CONT TO FOLLOW D/C NEEDS.
--- NOTE | 2022-01-16 14:13 | PC.NURSE ---
Alert and responsive. Denies pain or discomfort. VSS, afebrile, no acute resp. distress noted. Patient constantly asking staff when he's been discharge. security program manager made aware. Patient refused to take all schedule am meds including insulin after multiple attempts. Pacing around the room, removed his oxygen at time. He finally took his am meds after 12pm (pills only. MD made updated. Will continue to monitor and treat per plan of care.
--- NOTE | 2022-01-16 15:29 | HO.PM.IMPN ---
Subjective Subjective Date of Service: 01/16/22 Interval History: no breathing problems- denies cough or dyspnea wants to go back to retirement Review of Systems Review of Systems: Yes all other systems are reviewed and are negative Physical Exam Vital Signs: Vital Signs: Last Vital Signs Temp 97.1 F 01/16/22 11:19 Pulse 65 01/16/22 11:19 Resp 17 01/16/22 11:19 BP 138/60 01/16/22 11:19 Pulse Ox 97 01/16/22 11:19 O2 Del Method 01/16/22 11:19 O2 Flow Rate 3 01/16/22 11:19 BMI result Body Mass Index 21.8 Gen: in no acute distress HEENT: sclera anicteric, moist mucus membranes Neck: supple Lungs: clear to auscultation bilaterally Heart: regular rate and rhythm, no murmurs Abd: soft, non-tender, non-distended Ext: no edema Skin: warm/well-perfused Neuro: alert Psych: bizarre affect t Objective Data Active Medications Acetaminophen (Acetaminophen 325 Mg Tablet) 650 mg PO Q6H PRN PRN Reason: Pain, Mild (Pain Scale 1-3) Albuterol/Ipratropium (Albuterol/Iprat 2.5/0.5mg 3 Ml Ampul.Neb) 3 ml INHALE Q4H PRN PRN Reason: Shortness of Breath/Wheezing Albuterol/Ipratropium (Albuterol/Iprat 2.5/0.5mg 3 Ml Ampul.Neb) 3 ml INHALE RQ4H WHILE AWAKE [facility] Last Admin: 01/16/22 13:56 Dose: Not Given Documented By: LINDA Non-Admin Reason: Patient Refused Atorvastatin Calcium (Atorvastatin Calcium 40 Mg Tablet) 40 mg PO DAILY [facility] Last Admin: 01/16/22 11:36 Dose: Not Given Documented By: CIRO Non-Admin Reason: Patient Refused Dextrose (Dextrose 50 % 25 Gm/50 Ml Syringe) 25 gm IVPUSH Q15M PRN; Protocol PRN Reason: per Hypoglycemia Standing Ord. Divalproex Sodium (Divalproex Sodium Er 250 Mg Tab.Er.24h) 250 mg PO DAILY@1700 [facility] Last Admin: 01/15/22 16:18 Dose: 250 mg Documented By: CIRO Divalproex Sodium (Divalproex Sodium Er 500 Mg Tab.Er.24h) 500 mg PO DAILY [facility] Last Admin: 01/16/22 11:36 Dose: Not Given Documented By: CIRO Non-Admin Reason: Patient Refused Doxycycline Hyclate (Doxycycline Hyclate 100 Mg Tablet) 100 mg PO Q12H [facility] Last Admin: 01/16/22 11:41 Dose: Not Given Documented By: CIRO Non-Admin Reason: Patient Refused Enoxaparin Sodium (Enoxaparin Sodium 40 Mg/0.4 Ml Syringe) 40 mg SUBCUT Q24H [facility] Last Admin: 01/15/22 21:58 Dose: Not Given Documented By: EMELINA Non-Admin Reason: Patient Refused Ferrous Sulfate (Ferrous Sulfate 324 Mg Tablet.) 324 mg PO BID [facility] Last Admin: 01/16/22 11:41 Dose: Not Given Documented By: CIRO Non-Admin Reason: Patient Refused Fluticasone Propionate (Fluticasone Propionate Nasal 16 Gm [place]) 1 spray NOSTRIL-B BID [facility] Last Admin: 01/16/22 08:20 Dose: Not Given Documented By: CIRO Non-Admin Reason: Med Not Available Glucose (Glucose Gel 15 Gm Gel..Gram.) 15 gm PO Q15M PRN; Protocol PRN Reason: per Hypoglycemia Standing Ord. Haloperidol (Haloperidol 5 Mg Tablet) 5 mg PO DAILY@1700 [facility] Last Admin: 01/15/22 16:18 Dose: 5 mg Documented By: CIRO Haloperidol (Haloperidol 5 Mg Tablet) 10 mg PO BID [facility] Last Admin: 01/16/22 11:41 Dose: Not Given Documented By: CIRO Non-Admin Reason: Patient Refused Insulin Glargine (Insulin Glargine,Hum.Rec.Anlog 100 Unit/Ml 10 Ml Vial) 10 unit SUBCUT BEDTIME [facility] Last Admin: 01/15/22 21:50 Dose: 10 unit Documented By: EMELINA Insulin Human Lispro (Insulin Lispro 100 Unit/Ml 3 Ml Vial) 0 unit SUBCUT QIDACHS [facility]; Protocol Last Admin: 01/16/22 12:40 Dose: Not Given Documented By: CIRO Non-Admin Reason: Patient Refused Melatonin (Melatonin 3 Mg Tablet) 6 mg PO BEDTIME PRN PRN Reason: Insomnia Last Admin: 01/12/22 23:48 Dose: 6 mg Documented By: ESTELLE Metformin HCl (Metformin Hcl 500 Mg Tablet) 500 mg PO BIDWM [facility] Last Admin: 01/16/22 11:36 Dose: Not Given Documented By: CIRO Non-Admin Reason: Patient Refused Neomycin/Polymyxin/Hydrocortisone (Neomycin/Polymyxin/Hc Otic Melanie 10 Ml Drpbtl) 3 drop EAR-RIGHT QID [facility] Last Admin: 01/16/22 13:54 Dose: Not Given Documented By: CIRO Non-Admin Reason: Patient Refused Omeprazole (Omeprazole 20 Mg Capsule.Dr) 20 mg PO DAILY@0630 [facility] Last Admin: 01/16/22 05:33 Dose: 20 mg Documented By: STORMYFA Senna (Sennosides 8.6 Mg Tablet) 17.2 mg PO BEDTIME PRN PRN Reason: Constipation Sildenafil Citrate (Sildenafil Citrate 20 Mg Tablet) 20 mg PO TID [facility] Last Admin: 01/16/22 11:40 Dose: Not Given Documented By: CIRO Non-Admin Reason: Patient Refused Sitagliptin Phosphate (Sitagliptin Phosphate 100 Mg Tablet) 100 mg PO DAILY [facility] Last Admin: 01/16/22 11:40 Dose: Not Given Documented By: CIRO Non-Admin Reason: Patient Refused Sodium Chloride (0.9 % Sodium Chloride Flush 3 Ml Syringe) 3 ml IVFLUSH QSHIFT [facility] Last Admin: 01/16/22 08:19 Dose: Not Given Documented By: CIRO Non-Admin Reason: No Access Labs CBC & Chem 7: 01/16/22 05:35 01/16/22 05:35 Labs: Laboratory Results - last 24 hr 01/15/22 01/15/22 01/16/22 15:33 20:05 05:35 MCV 83.3 MCH 24.2 L MCHC 29.0 L RDW 17.4 H Plt Count 293 MPV 9.9 Immature Gran % (Auto) 0.3 Neut % (Auto) 37.3 L Lymph % (Auto) 40.1 H [place] % (Auto) 16.6 H Eos % (Auto) 5.7 H Baso % (Auto) 0.0 Lymph # (Auto) 1.3 [place] # (Auto) 0.5 Eos # (Auto) 0.2 Baso # (Auto) 0.0 Abs Immat Gran (auto) 0.01 Absolute Neuts (auto) 1.2 L Absolute Nucleated RBC 0.000 Nucleated RBC % (auto) 0.0 Anion Gap Estim Creat Clear Calc Estimated GFR POC Glucose 159 H 170 H Fasting Glucose Calcium Total Bilirubin AST ALT Alkaline Phosphatase Total Protein Albumin 01/16/22 01/16/22 01/16/22 05:35 07:06 11:15 MCV MCH MCHC RDW Plt Count MPV Immature Gran % (Auto) Neut % (Auto) Lymph % (Auto) [place] % (Auto) Eos % (Auto) Baso % (Auto) Lymph # (Auto) [place] # (Auto) Eos # (Auto) Baso # (Auto) Abs Immat Gran (auto) Absolute Neuts (auto) Absolute Nucleated RBC Nucleated RBC % (auto) Anion Gap 10 L Estim Creat Clear Calc 85.9 Estimated GFR > 60 POC Glucose 234 H 173 H Fasting Glucose 178 H Calcium 8.5 Total Bilirubin 0.2 AST 7 D ALT 6 Alkaline Phosphatase 51 Total Protein 5.5 L Albumin 3.0 L Assessment and Plan (1) Pulmonary hypertension: Status: Acute (2) Diabetes: Status: Acute (3) Schizo affective schizophrenia: Status: Acute Plan hospital d#8 61yo M retirement resident with schizophrenia, DM2, possible COPD/asthma [not formally diagnosed] p/w hypoxia + dyspnea, found to have severe pulmonary HTN/R-sided HF # pulmonary HTN # R-sided HF - started on sildenafil by Pulmonology - IV -> PO furosemide - outpt f/u with Pulm with consideration of R-sided cath # COPD/asthma, provisional diagnosis - outpt PFTs - continue nebs - weaned off steroids - d/c doxycycline # DM2 - basal/bolus insulin - sitagliptin, metformin # schizoaffective disorder - continue VPA, haloperidol # VTE ppx - LMWH # dispo - cannot go back to , plan LTC, HCP invoked, awaiting bed In my clinical judgment, the patient requires continued hospitalization for the following reasons: safe dispo Quality Stroke Does the patient have a stroke diagnosis?: No VTE Prior VTE?: No VTE Risk Level:: Medical - moderate - high VTE Device Contraindication: Treatment Not Indicated VTE Drug Contraindication: N/A - Med Ordered
[2022-01-16 16:26] LABS: Glucose, Whole Blood 191 mg/dL (60-115)
--- NOTE | 2022-01-16 16:29 | MHC.CM.PN ---
PT RECEIVED PFIZER BOOSTER IN [place] 12:55PM TODAY BY [employer] [facility] PHARMACIST MJ, CONSENT GIVEN VIA TELEPHOME BY GUARDIAN ANDREW BERLIN ON 01/15/22, NSG, HOSPITALIST AWARE.
[2022-01-16] MEDS: Divalproex Sodium ER 250 MG TAB.ER.24H PO (17:38)
[2022-01-16] MEDS: Sildenafil Citrate 20 MG TABLET PO ×2 (17:39→21:45)
[2022-01-16] MEDS: Furosemide 40 MG TABLET PO (17:39)
[2022-01-16] MEDS: metFORMIN HCl 500 MG TABLET PO (17:39)
[2022-01-16] MEDS: Insulin Lispro 100 UNIT/ML 3 ML VIAL SUBCUT ×2 (17:39→21:45)
[2022-01-16] MEDS: HaloperidoL 5 MG TABLET PO (17:39)
[2022-01-16 20:10] LABS: Glucose, Whole Blood 180 mg/dL (60-115)
[2022-01-16] MEDS: HaloperidoL 5 MG TABLET 10 MG PO (21:45)
[2022-01-16] MEDS: Insulin Glargine,Hum.rec.anlog 100 UNIT/ML 10 ML VIAL 10 UNIT SUBCUT (21:45)
[2022-01-16] MEDS: Ferrous Sulfate 324 MG TABLET.DR PO (21:45)
[2022-01-17] VITALS (10 sets, daily range): BP systolic 98–114; BP diastolic 55–77; PULSE 62–73; RESP 15–20; TEMP 36.1–36.7; O2SAT 94–100
[2022-01-17] MEDS: Omeprazole 20 MG CAPSULE.DR PO ×2 (05:48→08:53)
[2022-01-17 07:37] LABS: Glucose, Whole Blood 154 mg/dL (60-115)
[2022-01-17] MEDS: HaloperidoL 5 MG TABLET 10 MG PO ×2 (08:52→20:55)
[2022-01-17] MEDS: SITagliptin Phosphate 100 MG TABLET PO (08:53)
[2022-01-17] MEDS: Sildenafil Citrate 20 MG TABLET PO ×2 (08:53→20:56)
[2022-01-17] MEDS: Ferrous Sulfate 324 MG TABLET.DR PO ×2 (08:53→20:55)
[2022-01-17] MEDS: Furosemide 40 MG TABLET PO ×2 (08:53→18:39)
[2022-01-17] MEDS: Atorvastatin Calcium 40 MG TABLET PO (08:53)
[2022-01-17] MEDS: Divalproex Sodium ER 500 MG TAB.ER.24H PO (08:53)
[2022-01-17] MEDS: metFORMIN HCl 500 MG TABLET PO (08:53)
[2022-01-17 11:21] LABS: Glucose, Whole Blood 163 mg/dL (60-115)
--- NOTE | 2022-01-17 12:22 | MHC.CM.PN ---
CM RECEIVED MESSAGE FROM [facility] AND THEY REPORTED D/T PT'S GUARDIANSHIP NEEDING TO BE REREVIEWED IN FEBRUARY, THEY FEEL IT IS TO SOON AND THEY WOULD NEED AT LEAST 2 MONTHS PRIOR TO /RE-REVIEW, CM REACHED OUT TO PT'S GUARDIAN JEN SLADE AT 12:15 PM AT NUMBER ON FILE, JEN REPORTED SHE WOULD CONTACT THEIR ATTY'S AND SEE IF THEY COULD GET HIM TO COURT SOONER, CM WILL REQUEST [facility] REREVIEW AND REFERRAL WILL BE EXPANDED. NO PLAN FOR D/C TODAY.
--- NOTE | 2022-01-17 12:23 | P.PNIM_ITS ---
Subjective Subjective Date of Service: 01/17/22 Interval History: denies dyspnea, cough, or leg swelling Physical Exam Vital Signs: Vital Signs: Last Vital Signs Temp 98.1 F 01/17/22 11:17 Pulse 69 01/17/22 11:17 Resp 15 01/17/22 11:17 BP 106/57 L 01/17/22 11:17 Pulse Ox 95 01/17/22 11:17 O2 Del Method 01/17/22 11:17 O2 Flow Rate 3 01/17/22 03:24 BMI result Body Mass Index 21.8 Gen: in no acute distress HEENT: sclera anicteric, moist mucus membranes Neck: supple Lungs: clear to auscultation bilaterally Heart: regular rate and rhythm, no murmurs Abd: soft, non-tender, non-distended Ext: no edema Skin: warm/well-perfused Neuro: alert Psych: bizarre affect, impaired insight Objective Data Active Medications Acetaminophen (Acetaminophen 325 Mg Tablet) 650 mg PO Q6H PRN PRN Reason: Pain, Mild (Pain Scale 1-3) Atorvastatin Calcium (Atorvastatin Calcium 40 Mg Tablet) 40 mg PO DAILY [facility] Last Admin: 01/17/22 08:53 Dose: 40 mg Documented By: ATIF Dextrose (Dextrose 50 % 25 Gm/50 Ml Syringe) 25 gm IVPUSH Q15M PRN; Protocol PRN Reason: per Hypoglycemia Standing Ord. Divalproex Sodium (Divalproex Sodium Er 250 Mg Tab.Er.24h) 250 mg PO DAILY@1700 [facility] Last Admin: 01/16/22 17:38 Dose: 250 mg Documented By: CIRO Divalproex Sodium (Divalproex Sodium Er 500 Mg Tab.Er.24h) 500 mg PO DAILY [facility] Last Admin: 01/17/22 08:53 Dose: 500 mg Documented By: ATIF Enoxaparin Sodium (Enoxaparin Sodium 40 Mg/0.4 Ml Syringe) 40 mg SUBCUT Q24H [facility] Last Admin: 01/15/22 21:58 Dose: Not Given Documented By: EMELINA Non-Admin Reason: Patient Refused Ferrous Sulfate (Ferrous Sulfate 324 Mg Tablet.) 324 mg PO BID [facility] Last Admin: 01/17/22 08:53 Dose: 324 mg Documented By: ATIF Fluticasone Propionate (Fluticasone Propionate Nasal 16 Gm [place]) 1 spray NOSTRIL-B BID [facility] Last Admin: 01/17/22 09:00 Dose: Not Given Documented By: ATIF Non-Admin Reason: Med Not Available Furosemide (Furosemide 40 Mg Tablet) 40 mg PO BID@0900,1800 [facility]; Protocol Last Admin: 01/17/22 08:53 Dose: 40 mg Documented By: ATIF Glucose (Glucose Gel 15 Gm Gel..Gram.) 15 gm PO Q15M PRN; Protocol PRN Reason: per Hypoglycemia Standing Ord. Haloperidol (Haloperidol 5 Mg Tablet) 5 mg PO DAILY@1700 [facility] Last Admin: 01/16/22 17:39 Dose: 5 mg Documented By: CIRO Haloperidol (Haloperidol 5 Mg Tablet) 10 mg PO BID [facility] Last Admin: 01/17/22 08:52 Dose: 10 mg Documented By: ATIF Insulin Glargine (Insulin Glargine,Hum.Rec.Anlog 100 Unit/Ml 10 Ml Vial) 10 unit SUBCUT BEDTIME [facility] Last Admin: 01/16/22 21:45 Dose: 10 unit Documented By: EMELINA Insulin Human Lispro (Insulin Lispro 100 Unit/Ml 3 Ml Vial) 0 unit SUBCUT QIDACHS [facility]; Protocol Last Admin: 01/17/22 12:07 Dose: Not Given Documented By: ATIF Non-Admin Reason: Patient Refused Melatonin (Melatonin 3 Mg Tablet) 6 mg PO BEDTIME PRN PRN Reason: Insomnia Last Admin: 01/12/22 23:48 Dose: 6 mg Documented By: ESTELLE Metformin HCl (Metformin Hcl 500 Mg Tablet) 500 mg PO BIDWM [facility] Last Admin: 01/17/22 08:53 Dose: 500 mg Documented By: ATIF Neomycin/Polymyxin/Hydrocortisone (Neomycin/Polymyxin/Hc Otic Melanie 10 Ml Drpbtl) 3 drop EAR-RIGHT QID [facility] Last Admin: 01/17/22 09:00 Dose: Not Given Documented By: ATIF Non-Admin Reason: Patient Refused Omeprazole (Omeprazole 20 Mg Capsule.) 20 mg PO DAILY@0630 [facility] Last Admin: 01/17/22 08:53 Dose: 20 mg Documented By: ATIF Senna (Sennosides 8.6 Mg Tablet) 17.2 mg PO BEDTIME PRN PRN Reason: Constipation Sildenafil Citrate (Sildenafil Citrate 20 Mg Tablet) 20 mg PO TID [facility] Last Admin: 01/17/22 08:53 Dose: 20 mg Documented By: ATIF Sitagliptin Phosphate (Sitagliptin Phosphate 100 Mg Tablet) 100 mg PO DAILY [facility] Last Admin: 01/17/22 08:53 Dose: 100 mg Documented By: ATIF Sodium Chloride (0.9 % Sodium Chloride Flush 3 Ml Syringe) 3 ml IVFLUSH QSHIFT [facility] Last Admin: 01/17/22 08:59 Dose: Not Given Documented By: ATIF Non-Admin Reason: No Access Labs CBC & Chem 7: 01/16/22 05:35 01/16/22 05:35 Labs: Laboratory Results - last 24 hr 01/16/22 01/16/22 01/17/22 15:38 19:19 07:16 POC Glucose 191 H 180 H 154 H 01/17/22 11:17 POC Glucose 163 H Assessment and Plan (1) Pulmonary hypertension: Status: Acute [facility] [place] [facility] d#9 61yo M snf resident with schizophrenia, DM2, possible COPD/asthma [not formally diagnosed] p/w hypoxia + dyspnea, found to have severe pulmonary HTN/R-sided HF # pulmonary HTN # R-sided HF - started on sildenafil by Pulmonology - IV -> PO furosemide - outpt f/u with Pulm with consideration of R-sided cath # COPD/asthma, provisional diagnosis - outpt PFTs - continue nebs - weaned off steroids - d/c doxycycline # DM2 - basal/bolus insulin - sitagliptin, metformin # schizoaffective disorder - continue VPA, haloperidol # VTE ppx - LMWH # dispo - cannot go back to , plan LTC, HCP invoked, awaiting bed. per CM: no longer has a bed offer, his guardianship needs to be reviewed in February and they they say it needs to be at least 2 months out.. So I need to start looking for a new bed In my clinical judgment, the patient requires continued hospitalization for the following reasons: safe dispo Quality Stroke Does the patient have a stroke diagnosis?: No VTE Prior VTE?: No VTE Risk Level:: Medical - moderate - high VTE Device Contraindication: Treatment Not Indicated VTE Drug Contraindication: N/A - Med Ordered
[2022-01-17 16:03] LABS: Glucose, Whole Blood 185 mg/dL (60-115)
[2022-01-17] MEDS: Insulin Lispro 100 UNIT/ML 3 ML VIAL SUBCUT ×2 (16:56→20:56)
[2022-01-17 20:27] LABS: Glucose, Whole Blood 179 mg/dL (60-115)
[2022-01-17] MEDS: Enoxaparin Sodium 40 MG/0.4 ML SYRINGE SUBCUT (20:56)
[2022-01-17] MEDS: Insulin Glargine,Hum.rec.anlog 100 UNIT/ML 10 ML VIAL 10 UNIT SUBCUT (20:56)
--- NOTE | 2022-01-17 21:28 | PC.NURSE ---
Pt calm upon approach but quickly becomes agitated on both occasions when I first approached him to introduce myself and do his physical assessment and again later when I gave him hs HS medications. Pt was refusing HS meds, then agreed to take them, only to keep the pills in his hand and place on his lap. When I asked for them he apologized but said he would take them and proceeded to take them. He did refuse his other HS meds-see MAR. Pt refuses bed alarm. Camera in room and frequent checks done.
[2022-01-18 04:00] VITALS: BP 115/66; PULSE 83; RESP 18; TEMP 36.3; O2SAT 92
[2022-01-18 07:06] LABS: Immunoglobulin E 3571 kU/L (<OR=114)
[2022-01-18 07:14] VITALS: BP 109/66; PULSE 69; RESP 17; TEMP 36.4; O2SAT 97
[2022-01-18 07:22] LABS: Glucose, Whole Blood 208 mg/dL (60-115)
[2022-01-18] MEDS: Furosemide 40 MG TABLET PO ×2 (08:46→18:27)
[2022-01-18] MEDS: Ferrous Sulfate 324 MG TABLET.DR PO ×2 (08:46→20:39)
[2022-01-18] MEDS: Divalproex Sodium ER 500 MG TAB.ER.24H PO (08:46)
[2022-01-18] MEDS: Atorvastatin Calcium 40 MG TABLET PO (08:46)
[2022-01-18] MEDS: Sildenafil Citrate 20 MG TABLET PO ×3 (08:46→20:40)
[2022-01-18] MEDS: SITagliptin Phosphate 100 MG TABLET PO (08:46)
[2022-01-18] MEDS: metFORMIN HCl 500 MG TABLET PO ×2 (08:46→15:32)
[2022-01-18] MEDS: HaloperidoL 5 MG TABLET 10 MG PO ×2 (08:47→20:39)
[2022-01-18] MEDS: Insulin Lispro 100 UNIT/ML 3 ML VIAL SUBCUT ×2 (08:48→08:57)
--- NOTE | 2022-01-18 10:18 | MHC.CM.PN ---
CM REACHED OUT TO [facility] ADMISS[facility]IA[facility] JAME PETERSON AT 10:14AM CELL [phone] TO CHECK ON REFERRAL STATUS CM DIRECTOR HAD LET THEM KNOW SHE HAD SPOKEN W/GUARDIAN'S ATTY, JAME REPORTS SHE HAS NOT HEARD BACK FROM FACILITY SINCE SHE REACHED OUT TO THEM YESTERDAY AND WILL REACH OUT AGAIN AFTER THEIR MTG IS OVER.
[2022-01-18 11:21] VITALS: BP 97/63; PULSE 72; RESP 18; TEMP 36.4; O2SAT 100
[2022-01-18 11:30] LABS: Glucose, Whole Blood 107 mg/dL (60-115)
--- NOTE | 2022-01-18 12:55 | P.PNIM_ITS ---
Subjective Subjective Date of Service: 01/18/22 Interval History: Seen and examined this morning Denies shortness of breath, cough, otherwise unable to obtain full review of as patient is not amenable to conversation Not interested in talking, wants to talk to pillowcase cleaner Did not allow physical exam Physical Exam Vital Signs: Vital Signs: Last Vital Signs Temp 97.6 F 01/18/22 11:21 Pulse 72 01/18/22 11:21 Resp 18 01/18/22 11:21 BP 97/63 01/18/22 11:21 Pulse Ox 100 01/18/22 11:21 O2 Del Method 01/18/22 11:21 O2 Flow Rate 2 01/18/22 11:21 BMI result Body Mass Index 21.8 Const: Other: Resting in bed comfortably, not amenable to allow physical exam at this time Breathing easy, no respiratory distress General: comfortable, no acute distress, alert and awake Objective Data Active Medications Acetaminophen (Acetaminophen 325 Mg Tablet) 650 mg PO Q6H PRN PRN Reason: Pain, Mild (Pain Scale 1-3) Atorvastatin Calcium (Atorvastatin Calcium 40 Mg Tablet) 40 mg PO DAILY [facility] Last Admin: 01/18/22 08:46 Dose: 40 mg Documented By: ATIF Dextrose (Dextrose 50 % 25 Gm/50 Ml Syringe) 25 gm IVPUSH Q15M PRN; Protocol PRN Reason: per Hypoglycemia Standing Ord. Divalproex Sodium (Divalproex Sodium Er 250 Mg Tab.Er.24h) 250 mg PO DAILY@1700 [facility] Last Admin: 01/17/22 17:23 Dose: Not Given Documented By: ATIF Non-Admin Reason: Patient Refused Divalproex Sodium (Divalproex Sodium Er 500 Mg Tab.Er.24h) 500 mg PO DAILY [facility] Last Admin: 01/18/22 08:46 Dose: 500 mg Documented By: ATIF Enoxaparin Sodium (Enoxaparin Sodium 40 Mg/0.4 Ml Syringe) 40 mg SUBCUT Q24H [facility] Last Admin: 01/17/22 20:56 Dose: 40 mg Documented By: EUFEMIA Ferrous Sulfate (Ferrous Sulfate 324 Mg Tablet.) 324 mg PO BID [facility] Last Admin: 01/18/22 08:46 Dose: 324 mg Documented By: ATIF Fluticasone Propionate (Fluticasone Propionate Nasal 16 Gm [place]) 1 spray NOSTRIL-B BID [facility] Last Admin: 01/18/22 08:51 Dose: Not Given Documented By: ATIF Non-Admin Reason: Patient Refused Furosemide (Furosemide 40 Mg Tablet) 40 mg PO BID@0900,1800 [facility]; Protocol Last Admin: 01/18/22 08:46 Dose: 40 mg Documented By: ATIF Glucose (Glucose Gel 15 Gm Gel..Gram.) 15 gm PO Q15M PRN; Protocol PRN Reason: per Hypoglycemia Standing Ord. Haloperidol (Haloperidol 5 Mg Tablet) 5 mg PO DAILY@1700 [facility] Last Admin: 01/17/22 17:23 Dose: Not Given Documented By: ATIF Non-Admin Reason: Patient Refused Haloperidol (Haloperidol 5 Mg Tablet) 10 mg PO BID [facility] Last Admin: 01/18/22 08:47 Dose: 10 mg Documented By: ATIF Insulin Glargine (Insulin Glargine,Hum.Rec.Anlog 100 Unit/Ml 10 Ml Vial) 10 unit SUBCUT BEDTIME [facility] Last Admin: 01/17/22 20:56 Dose: 10 unit Documented By: EUFEMIA Insulin Human Lispro (Insulin Lispro 100 Unit/Ml 3 Ml Vial) 0 unit SUBCUT QIDACHS [facility]; Protocol Last Admin: 01/18/22 08:57 Dose: 2 unit Documented By: ATIF Melatonin (Melatonin 3 Mg Tablet) 6 mg PO BEDTIME PRN PRN Reason: Insomnia Last Admin: 01/12/22 23:48 Dose: 6 mg Documented By: ESTELLE Metformin HCl (Metformin Hcl 500 Mg Tablet) 500 mg PO BIDWM [facility] Last Admin: 01/18/22 08:46 Dose: 500 mg Documented By: ATIF Neomycin/Polymyxin/Hydrocortisone (Neomycin/Polymyxin/Hc Otic Melanie 10 Ml Drpbtl) 3 drop EAR-RIGHT QID [facility] Last Admin: 01/18/22 08:51 Dose: Not Given Documented By: ATIF Non-Admin Reason: Patient Refused Omeprazole (Omeprazole 20 Mg Capsule.) 20 mg PO DAILY@0630 [facility] Last Admin: 01/17/22 08:53 Dose: 20 mg Documented By: ATIF Senna (Sennosides 8.6 Mg Tablet) 17.2 mg PO BEDTIME PRN PRN Reason: Constipation Sildenafil Citrate (Sildenafil Citrate 20 Mg Tablet) 20 mg PO TID [facility] Last Admin: 01/18/22 08:46 Dose: 20 mg Documented By: ATIF Sitagliptin Phosphate (Sitagliptin Phosphate 100 Mg Tablet) 100 mg PO DAILY [facility] Last Admin: 01/18/22 08:46 Dose: 100 mg Documented By: ATIF Sodium Chloride (0.9 % Sodium Chloride Flush 3 Ml Syringe) 3 ml IVFLUSH QSHIFT [facility] Last Admin: 01/18/22 08:51 Dose: Not Given Documented By: ATIF Non-Admin Reason: No Access Labs CBC & Chem 7: 01/16/22 05:35 01/16/22 05:35 Labs: Laboratory Results - last 24 hr 01/10/22 01/17/22 01/17/22 03:43 15:42 20:01 POC Glucose 185 H 179 H IgE 3571 H 01/18/22 01/18/22 07:17 11:25 POC Glucose 208 H 107 IgE Assessment and Plan (1) Schizo affective schizophrenia: Status: Acute (2) Pulmonary hypertension: Status: Acute Plan hospital d#9 61yo M halfway resident with schizophrenia, DM2, possible COPD/asthma [not formally diagnosed] p/w hypoxia + dyspnea, found to have severe pulmonary HTN/R-sided HF # pulmonary HTN # R-sided HF - started on sildenafil by Pulmonology - IV -> PO furosemide - outpt f/u with Pulm with consideration of R-sided cath # COPD/asthma, provisional diagnosis - outpt PFTs - continue nebs - weaned off steroids - d/c doxycycline # DM2 - basal/bolus insulin - sitagliptin, metformin # schizoaffective disorder - continue VPA, haloperidol # VTE ppx - LMWH # dispo - cannot go back to , plan LTC, HCP invoked, awaiting bed. per CM: no longer has a bed offer, his guardianship needs to be reviewed in February and they they say it needs to be at least 2 months out.. So I need to start looking for a new bed In my clinical judgment, the patient requires continued hospitalization for the following reasons: safe dispo Quality Stroke Does the patient have a stroke diagnosis?: No VTE Prior VTE?: No VTE Risk Level:: Medical - moderate - high VTE Device Contraindication: Treatment Not Indicated VTE Drug Contraindication: N/A - Med Ordered
[2022-01-18] MEDS: Divalproex Sodium ER 250 MG TAB.ER.24H PO (15:31)
[2022-01-18] MEDS: HaloperidoL 5 MG TABLET PO (15:32)
[2022-01-18 15:53] VITALS: BP 103/56; PULSE 74; RESP 18; TEMP 35.9; O2SAT 95
[2022-01-18 16:00] VITALS: BP 103/56; PULSE 74; RESP 18; TEMP 35.9; O2SAT 95
[2022-01-18 16:07] LABS: Glucose, Whole Blood 119 mg/dL (60-115)
[2022-01-18 20:00] VITALS: BP 111/69; PULSE 76; RESP 18; TEMP 36.7; O2SAT 90
[2022-01-18 20:35] LABS: Glucose, Whole Blood 130 mg/dL (60-115)
[2022-01-18] MEDS: Enoxaparin Sodium 40 MG/0.4 ML SYRINGE SUBCUT (20:39)
[2022-01-18] MEDS: Insulin Glargine,Hum.rec.anlog 100 UNIT/ML 10 ML VIAL 10 UNIT SUBCUT (20:40)
[2022-01-19] MEDS: Omeprazole 20 MG CAPSULE.DR PO (06:15)
[2022-01-19 07:41] VITALS: BP 102/69; PULSE 63; RESP 17; TEMP 36.6; O2SAT 100
[2022-01-19 07:55] LABS: Glucose, Whole Blood 150 mg/dL (60-115)
[2022-01-19 11:19] VITALS: BP 97/59; PULSE 68; RESP 17; TEMP 36; O2SAT 92
[2022-01-19 11:45] LABS: Glucose, Whole Blood 223 mg/dL (60-115)
[2022-01-19] MEDS: Insulin Lispro 100 UNIT/ML 3 ML VIAL SUBCUT ×2 (12:13→16:54)
--- NOTE | 2022-01-19 12:34 | HO.PM.IMPN ---
Subjective Subjective Date of Service: 01/19/22 <KALI Mckinley - Last Filed: 01/19/22 12:39> 01/22/22 <Alvin Angel MD - Last Filed: 01/22/22 09:40> Interval History: Seen and examined this morning No overnight events. No specific complaints this morning. Patient wants to leave the hospital. He was calm and cooperative during my evaluation this morning but declined to take his medication. Patient denies any shortness of breath or cough <KALI Mckinley - Last Filed: 01/19/22 12:39> Review of Systems Review of Systems: Yes all other systems are reviewed and are negative <KALI Mckinley - Last Filed: 01/19/22 12:39> Constitutional Constitutional: Denies chills and Denies fever(s) <KALI Mckinley - Last Filed: 01/19/22 12:39> Cardiovascular Cardiovascular: Denies chest pain, Denies palpitations and Denies dyspnea <KALI Mckinley - Last Filed: 01/19/22 12:39> Respiratory Respiratory: Denies cough and Denies dyspnea <KALI Mckinley - Last Filed: 01/19/22 12:39> Gastrointestinal Gastrointestinal: Denies abdominal pain <KALI Mckinley - Last Filed: 01/19/22 12:39> Endocrine Endocrine: Denies palpitations <KALI Mckinley - Last Filed: 01/19/22 12:39> Physical Exam Vital Signs: Vital Signs: Last Vital Signs Temp 96.8 F 01/19/22 11:19 Pulse 68 01/19/22 11:19 Resp 17 01/19/22 11:19 BP 97/59 L 01/19/22 11:19 Pulse Ox 92 01/19/22 11:19 O2 Del Method 01/19/22 11:19 O2 Flow Rate 2 01/19/22 11:19 BMI result Body Mass Index 21.8 <KALI Mckinley Last Filed: 01/19/22 12:39> Const: General: comfortable, no acute distress, alert and awake <KALI Mckinley - Last Filed: 01/19/22 12:39> Resp: Effort & Inspection: normal respiratory effort and able to speak in complete sentences <KALI Mckinley - Last Filed: 01/19/22 12:39> Cardio: Rate: regular rate <KLAI Mckinley Last Filed: 01/19/22 12:39> Heart sounds: S1 normal heart sound present and S2 normal heart sound present <KALI Mckinley - Last Filed: 01/19/22 12:39> GI: Palpation (GI): Soft to palpation and nontender <KALI Mckinley - Last Filed: 01/19/22 12:39> Extrem: General: Yes no pedal edema <KALI Mckinley - Last Filed: 01/19/22 12:39> Objective Data Active Medications Acetaminophen (Acetaminophen 325 Mg Tablet) 650 mg PO Q6H PRN PRN Reason: Pain, Mild (Pain Scale 1-3) Atorvastatin Calcium (Atorvastatin Calcium 40 Mg Tablet) 40 mg PO DAILY [facility] Last Admin: 01/19/22 09:34 Dose: Not Given Documented By: MARK Non-Admin Reason: Patient Refused Dextrose (Dextrose 50 % 25 Gm/50 Ml Syringe) 25 gm IVPUSH Q15M PRN; Protocol PRN Reason: per Hypoglycemia Standing Ord. Divalproex Sodium (Divalproex Sodium Er 250 Mg Tab.Er.24h) 250 mg PO DAILY@1700 [facility] Last Admin: 01/18/22 15:31 Dose: 250 mg Documented By: ATIF Divalproex Sodium (Divalproex Sodium Er 500 Mg Tab.Er.24h) 500 mg PO DAILY [facility] Last Admin: 01/19/22 09:34 Dose: Not Given Documented By: MARK Non-Admin Reason: Patient Refused Enoxaparin Sodium (Enoxaparin Sodium 40 Mg/0.4 Ml Syringe) 40 mg SUBCUT Q24H [facility] Last Admin: 01/18/22 20:39 Dose: 40 mg Documented By: SAVAGE Ferrous Sulfate (Ferrous Sulfate 324 Mg Tablet.Dr) 324 mg PO BID [facility] Last Admin: 01/19/22 09:35 Dose: Not Given Documented By: MARK Non-Admin Reason: Patient Refused Fluticasone Propionate (Fluticasone Propionate Nasal 16 Gm [place]) 1 spray NOSTRIL-B BID [facility] Last Admin: 01/19/22 09:35 Dose: Not Given Documented By: MARK Non-Admin Reason: Patient Refused Furosemide (Furosemide 40 Mg Tablet) 40 mg PO BID@0900,1800 [facility]; Protocol Last Admin: 01/19/22 09:35 Dose: Not Given Documented By: MARK Non-Admin Reason: Patient Refused Glucose (Glucose Gel 15 Gm Gel..Gram.) 15 gm PO Q15M PRN; Protocol PRN Reason: per Hypoglycemia Standing Ord. Haloperidol (Haloperidol 5 Mg Tablet) 5 mg PO DAILY@1700 [facility] Last Admin: 01/18/22 15:32 Dose: 5 mg Documented By: ATIF Haloperidol (Haloperidol 5 Mg Tablet) 10 mg PO BID [facility] Last Admin: 01/19/22 09:35 Dose: Not Given Documented By: MARK Non-Admin Reason: Patient Refused Insulin Glargine (Insulin Glargine,Hum.Rec.Anlog 100 Unit/Ml 10 Ml Vial) 10 unit SUBCUT BEDTIME [facility] Last Admin: 01/18/22 20:40 Dose: 10 unit Documented By: SAVAGE Insulin Human Lispro (Insulin Lispro 100 Unit/Ml 3 Ml Vial) 0 unit SUBCUT QIDACHS [facility]; Protocol Last Admin: 01/19/22 12:13 Dose: 4 unit Documented By: MARK Melatonin (Melatonin 3 Mg Tablet) 6 mg PO BEDTIME PRN PRN Reason: Insomnia Last Admin: 01/12/22 23:48 Dose: 6 mg Documented By: ESTELLE Metformin HCl (Metformin Hcl 500 Mg Tablet) 500 mg PO BIDWM [facility] Last Admin: 01/19/22 09:34 Dose: Not Given Documented By: MARK Non-Admin Reason: Patient Refused Neomycin/Polymyxin/Hydrocortisone (Neomycin/Polymyxin/Hc Otic Melanie 10 Ml Drpbtl) 3 drop EAR-RIGHT QID [facility] Last Admin: 01/19/22 09:35 Dose: Not Given Documented By: MARK Non-Admin Reason: Patient Refused Omeprazole (Omeprazole 20 Mg Capsule.) 20 mg PO DAILY@0630 [facility] Last Admin: 01/19/22 06:15 Dose: 20 mg Documented By: SAVAGE Senna (Sennosides 8.6 Mg Tablet) 17.2 mg PO BEDTIME PRN PRN Reason: Constipation Sildenafil Citrate (Sildenafil Citrate 20 Mg Tablet) 20 mg PO TID [facility] Last Admin: 01/19/22 09:35 Dose: Not Given Documented By: MARK Non-Admin Reason: Patient Refused Sitagliptin Phosphate (Sitagliptin Phosphate 100 Mg Tablet) 100 mg PO DAILY [facility] Last Admin: 01/19/22 09:35 Dose: Not Given Documented By: MARK Non-Admin Reason: Patient Refused Sodium Chloride (0.9 % Sodium Chloride Flush 3 Ml Syringe) 3 ml IVFLUSH QSHIFT [facility] Last Admin: 01/19/22 09:34 Dose: Not Given Documented By: MARK Non-Admin Reason: No Access <KALI Mckinley - Last Filed: 01/19/22 12:39> Labs CBC & Chem 7: : 01/16/22 05:35 01/16/22 05:35 <KALI Mckinley - Last Filed: 01/19/22 12:39> Labs: Laboratory Results - last 24 hr 01/18/22 01/18/22 01/19/22 15:56 20:27 07:43 POC Glucose 119 H 130 H 150 H 01/19/22 11:18 POC Glucose 223 H <KALI Mckinley - Last Filed: 01/19/22 12:39> Assessment and Plan (1) Pulmonary hypertension: Status: Acute <KALI Mckinley - Last Filed: 01/19/22 12:39> Assessment and Plan: 61yo M jail resident with schizophrenia, DM2, possible COPD/asthma [not formally diagnosed] p/w hypoxia + dyspnea, found to have severe pulmonary HTN/R-sided HF # pulmonary HTN # R-sided HF - started on sildenafil by Pulmonology - IV -> PO furosemide - outpt f/u with Pulm with consideration of R-sided cath # COPD/asthma, provisional diagnosis - outpt PFTs - continue nebs - weaned off steroids - d/c doxycycline # DM2 - basal/bolus insulin - sitagliptin, metformin # schizoaffective disorder - continue VPA, haloperidol - psych consult pending for med management VTE ppx - LMWH dispo - cannot go back to , plan LTC, HCP invoked, awaiting bed. per CM: no longer has a bed offer, his guardianship needs to be reviewed in February and they they say it needs to be at least 2 months out.. So I need to start looking for a new bed In my clinical judgment, the patient requires continued hospitalization for the following reasons: safe dispo <KALI Mckinley - Last Filed: 01/19/22 12:39> Quality Stroke Does the patient have a stroke diagnosis?: No <KALI Mckinley - Last Filed: 01/19/22 12:39> VTE Prior VTE?: No <KALI Mckinley - Last Filed: 01/19/22 12:39> VTE Risk Level:: Medical - moderate - high <KALI Mckinley - Last Filed: 01/19/22 12:39> VTE Device Contraindication: Treatment Not Indicated <KALI Mckinley - Last Filed: 01/19/22 12:39> VTE Drug Contraindication: N/A - Med Ordered <KALI Mckinley - Last Filed: 01/19/22 12:39>
--- NOTE | 2022-01-19 15:01 | MHC.CM.PN ---
NURSE CASE ERLIN NTOE ELECTRONIC MEDICAL RECORD REFIEWED ALONG WITH CASE DISCUSSED WITH STAFF NURSE AND HOSPITLSIT [facility] DICKSON SPARKS CALLED BACK TO THEM MESSAGE LEFT X2 NO CALL BACK, DENIALS FROM [facility], [facility] , [facility], ,[facility] ,[facility], [facility] rehab, care [facility] [place] [facility] one [facility], [place], [facility], [facility], [facility], [facility] ( [facility] , [place], [facility]), [facility], [facility], [facility], [facility], [facility] care of s[facility], ) [facility] , [facility], [facility], [facility] , [facility], [facility], [facility], [facility]hab, [facility], [facility] rehab, [place],ALL NO BED AVAILABILITY OR INAPPRORIATE( [facility] out of net work [facility], [facility], [facility], [facility], [facility], [facility] TO NAME ONLY A FEW , SENT MANY MORE REFERRALS UNDER CARE PORTS WITH [facility]
[2022-01-19 16:00] VITALS: BP 113/68; PULSE 71; RESP 18; TEMP 36.1; O2SAT 100
[2022-01-19 16:10] LABS: Glucose, Whole Blood 223 mg/dL (60-115)
[2022-01-19] MEDS: Sildenafil Citrate 20 MG TABLET PO ×2 (16:53→20:50)
[2022-01-19] MEDS: metFORMIN HCl 500 MG TABLET PO (16:53)
[2022-01-19] MEDS: HaloperidoL 5 MG TABLET PO (16:53)
[2022-01-19] MEDS: Furosemide 40 MG TABLET PO (16:53)
[2022-01-19] MEDS: Divalproex Sodium ER 250 MG TAB.ER.24H PO (16:56)
--- NOTE | 2022-01-19 17:27 | PM.PSYCN ---
History of Present Illness Date of Service: 01/19/2022 Chief Complaint: Acute hypoxic respiratory failure Reason for Consult: Per hospitalist, psych consult requested for medication management due to pt presenting with behavioral issues i.e. having tantrums, crying, screaming, refusing interventions, and arguing. Pt wants to leave the hospital but cannot go back to his [facility] and is awaiting LTC, which is aggravating him. Requesting physician: Waleska Hernandez Discussed with referring provider: Yes Sources of Information: patient interviewed, chart reviewed and crisis/core team assessment reviewed HPI Narrative: Khai is a 61 y.o. Male who carries a dx of schizophrenia. He presented to [facility] on 01[facility]09/22 from his fpc, [facility] in [place]. The staff called EMS because they were drawing blood today, his blood seemed darker than usual. Patient's oxygen saturation was at down to the 70s. Recent admission to the hospital for acute hypoxic respiratory failure in the setting of asthma/COPD/CHF. Pt is a poor historian. Has a HCP invoked. During course of hospitalization, pt was found to have pulmonary HTN and R-sided HF. He was started on sildenafil, furosemide. I spoke with pt?s RN, who reports he has been ?okay? today.? I evaluated the pt this evening and upon interview he reports ?Im doing bad, i want to be out of this room, back on the street.? Says he is in the hospital because ?of my breathing problem.? He is requesting to discharge, says ?do it fast, tell them to get me a discharge.? He says he is ?depressed,? attributes this to his situation, ?I dont want to be here.? Denies anxiety. Denies A/VH. Denies SI/SIB/HI.? [facility] Medical History (Updated 01/14/22 @ 09:39 by Anthony Hewitt DO) Acute dyspnea Malignant otitis externa Pneumonia Diagnostics Vital Signs (24Hr): Vital Signs - 24 hr 01/18/22 20:00 01/19/22 07:41 01/19/22 11:19 Temperature 98.0 F 97.8 F 96.8 F Pulse Rate 76 63 68 Respiratory Rate 18 17 17 Blood Pressure 111/69 102/69 97/59 L Pulse Oximetry 90 L 100 92 Oxygen Delivery Method Room Air Nasal Cannula Nasal Cannula Oxygen Flow Rate 2 2 01/19/22 16:00 Temperature 97.0 F Pulse Rate 71 Respiratory Rate 18 Blood Pressure 113/68 Pulse Oximetry 100 Oxygen Delivery Method Nasal Cannula Oxygen Flow Rate 2 BMI result Body Mass Index 21.8 Labs Results: 01/16/22 05:35 01/16/22 05:35 Labs: Laboratory Results - last 48 hr 01/10/22 01/17/22 01/18/22 03:43 20:01 07:17 POC Glucose 179 H 208 H IgE 3571 H 01/18/22 01/18/22 01/18/22 11:25 15:56 20:27 POC Glucose 107 119 H 130 H IgE 01/19/22 01/19/22 01/19/22 07:43 11:18 16:01 POC Glucose 150 H 223 H 223 H IgE Imaging Radiology Impressions: ITS Impressions Chest X-Ray 01/09/22 16:52 IMPRESSION: No acute pulmonary finding. Chest CTA 01/11/22 11:05 IMPRESSION: 1. No evidence for pulmonary embolism. 2. Trace right pleural effusion and compressive atelectasis. This was not seen on the previous CT scan. Short-term radiographic follow-up, preferably with PA and lateral views is recommended as clinically indicated. 3. Dilatation of the ascending aorta up to 4.0 cm without significant change. No evidence for dissection. VTE: Negative. Chest X-Ray 01/19/22 09:11 IMPRESSION: Subsegmental atelectasis at the right lung base. Mental Status Exam Mental Status Exam Narrative: A&O but does not understand need for continued hospitalization or situation. Somewhat unkempt, in hospital attire, in bed. Poor eye contact, inattentive. No Tics or Tremors. No abnormal involuntary movements. Irritable, guarded, difficult to engage in conversation. Non-pressured speech, spontaneous with regular rate and rhythm, normal volume and prosody. No prolonged speech latency or dysarthria. Mood is ?depressed,? affect is irritable. Denies SI/SIB/HI upon inquiry. Denies A/VH or delusional thought content. Thoughts are perseverative on wanting to go home. Insight/ Judgment impaired. Medications Medications Current Medications Acetaminophen (Acetaminophen 325 Mg Tablet) 650 mg PO Q6H PRN PRN Reason: Pain, Mild (Pain Scale 1-3) Atorvastatin Calcium (Atorvastatin Calcium 40 Mg Tablet) 40 mg PO DAILY [facility] Last Admin: 01/19/22 09:34 Dose: Not Given Dextrose (Dextrose 50 % 25 Gm/50 Ml Syringe) 25 gm IVPUSH Q15M PRN; Protocol PRN Reason: per Hypoglycemia Standing Ord. Divalproex Sodium (Divalproex Sodium Er 250 Mg Tab.Er.24h) 250 mg PO DAILY@1700 [facility] Last Admin: 01/19/22 16:56 Dose: 250 mg Divalproex Sodium (Divalproex Sodium Er 500 Mg Tab.Er.24h) 500 mg PO DAILY [facility] Last Admin: 01/19/22 09:34 Dose: Not Given Enoxaparin Sodium (Enoxaparin Sodium 40 Mg/0.4 Ml Syringe) 40 mg SUBCUT Q24H [facility] Last Admin: 01/18/22 20:39 Dose: 40 mg Ferrous Sulfate (Ferrous Sulfate 324 Mg Tablet.Dr) 324 mg PO BID [facility] Last Admin: 01/19/22 09:35 Dose: Not Given Fluticasone Propionate (Fluticasone Propionate Nasal 16 Gm [place]) 1 spray NOSTRIL-B BID [facility] Last Admin: 01/19/22 09:35 Dose: Not Given Furosemide (Furosemide 40 Mg Tablet) 40 mg PO BID@0900,1800 [facility]; Protocol Last Admin: 01/19/22 16:53 Dose: 40 mg Glucose (Glucose Gel 15 Gm Gel..Gram.) 15 gm PO Q15M PRN; Protocol PRN Reason: per Hypoglycemia Standing Ord. Haloperidol (Haloperidol 5 Mg Tablet) 5 mg PO DAILY@1700 [facility] Last Admin: 01/19/22 16:53 Dose: 5 mg Haloperidol (Haloperidol 5 Mg Tablet) 10 mg PO BID [facility] Last Admin: 01/19/22 09:35 Dose: Not Given Insulin Glargine (Insulin Glargine,Hum.Rec.Anlog 100 Unit/Ml 10 Ml Vial) 10 unit SUBCUT BEDTIME [facility] Last Admin: 01/18/22 20:40 Dose: 10 unit Insulin Human Lispro (Insulin Lispro 100 Unit/Ml 3 Ml Vial) 0 unit SUBCUT QIDACHS [facility]; Protocol Last Admin: 01/19/22 16:54 Dose: 4 unit Melatonin (Melatonin 3 Mg Tablet) 6 mg PO BEDTIME PRN PRN Reason: Insomnia Last Admin: 01/12/22 23:48 Dose: 6 mg Metformin HCl (Metformin Hcl 500 Mg Tablet) 500 mg PO BIDWM [facility] Last Admin: 01/19/22 16:53 Dose: 500 mg Neomycin/Polymyxin/Hydrocortisone (Neomycin/Polymyxin/Hc Otic Melanie 10 Ml Drpbtl) 3 drop EAR-RIGHT QID [facility] Last Admin: 01/19/22 16:57 Dose: Not Given Omeprazole (Omeprazole 20 Mg Capsule.) 20 mg PO DAILY@0630 [facility] Last Admin: 01/19/22 06:15 Dose: 20 mg Senna (Sennosides 8.6 Mg Tablet) 17.2 mg PO BEDTIME PRN PRN Reason: Constipation Sildenafil Citrate (Sildenafil Citrate 20 Mg Tablet) 20 mg PO TID [facility] Last Admin: 01/19/22 16:53 Dose: 20 mg Sitagliptin Phosphate (Sitagliptin Phosphate 100 Mg Tablet) 100 mg PO DAILY [facility] Last Admin: 01/19/22 09:35 Dose: Not Given Sodium Chloride (0.9 % Sodium Chloride Flush 3 Ml Syringe) 3 ml IVFLUSH QSHIFT [facility] Last Admin: 01/19/22 16:55 Dose: Not Given Allergies Allergies Allergy/AdvReac Type Severity Reaction Status Date / Time No Known Allergies Allergy Verified 11/05/21 22:25 Assessment & Plan Assessment & Plan (1) Schizo affective schizophrenia: Status: Acute Code(s): F25.9 - Schizoaffective disorder, unspecified Plan Khai is a 61 y.o. Male who carries a dx of schizophrenia. He presented to [facility] on 01[facility]09/22 from his fpc, [facility] in [place]. During course of hospitalization, pt was found to have pulmonary HTN and R-sided HF. He was started on sildenafil, furosemide. Pt is a poor historian. Has a HCP invoked. On haldol TID, depakote. Plan: -Will order VPA level with ammonia. Will continue haldol. Start zydis 5 mg BID PRN for agitation and ativan 1 mg Q6H PRN for anxiety, as pt has been on these medications in the past with reported benefit. I have shared this with Dr. Waleska Hernandez Thank you for this consultation. If you have any questions or concerns, please do not hesitate to contact psychiatry service. I spent minutes with the patient and/or on the patient floor today, greater than?50% of which was spent counseling/coordinating care. Patient educated on: medication risk/benefits
[2022-01-19 20:00] VITALS: BP 99/58; PULSE 68; RESP 18; TEMP 35.8; O2SAT 97
[2022-01-19 20:09] LABS: Glucose, Whole Blood 126 mg/dL (60-115)
[2022-01-19] MEDS: Melatonin 3 MG TABLET 6 MG PO (20:50)
[2022-01-19] MEDS: Enoxaparin Sodium 40 MG/0.4 ML SYRINGE SUBCUT (20:50)
[2022-01-19] MEDS: Ferrous Sulfate 324 MG TABLET.DR PO (20:50)
[2022-01-19] MEDS: HaloperidoL 5 MG TABLET 10 MG PO (20:50)
[2022-01-19] MEDS: Insulin Glargine,Hum.rec.anlog 100 UNIT/ML 10 ML VIAL 10 UNIT SUBCUT (20:51)
[2022-01-19 23:24] VITALS: BP 106/62; PULSE 73; RESP 17; TEMP 36.7; O2SAT 97
[2022-01-20 04:00] VITALS: BP 96/60; PULSE 58; RESP 17; TEMP 36.1; O2SAT 100
--- NOTE | 2022-01-20 06:23 | PC.NURSE ---
Patient refusing care, meds, labs.
[2022-01-20 07:46] VITALS: BP 109/66; PULSE 65; RESP 18; TEMP 36.4; O2SAT 98
[2022-01-20] MEDS: SITagliptin Phosphate 100 MG TABLET PO (08:47)
[2022-01-20] MEDS: Sildenafil Citrate 20 MG TABLET PO ×3 (08:47→20:37)
[2022-01-20] MEDS: Divalproex Sodium ER 500 MG TAB.ER.24H PO (08:47)
[2022-01-20] MEDS: Omeprazole 20 MG CAPSULE.DR PO (08:47)
[2022-01-20] MEDS: HaloperidoL 5 MG TABLET 10 MG PO ×2 (08:47→20:37)
[2022-01-20] MEDS: metFORMIN HCl 500 MG TABLET PO ×2 (08:47→16:47)
[2022-01-20] MEDS: Furosemide 40 MG TABLET PO ×2 (08:48→16:47)
[2022-01-20] MEDS: Atorvastatin Calcium 40 MG TABLET PO (08:48)
[2022-01-20] MEDS: Ferrous Sulfate 324 MG TABLET.DR PO ×2 (08:48→20:37)
--- NOTE | 2022-01-20 09:26 | P.PNIM_ITS ---
Subjective Subjective Date of Service: 01/20/22 Interval History: seen and examined this morning feeling frustrated and wants to leave the hospital. no shortness of breath, no cough initially would not allow physical exam but eventually allowed lung exam Review of Systems Review of Systems: Yes all other systems are reviewed and are negative Constitutional Constitutional: Denies chills and Denies fever(s) Cardiovascular Cardiovascular: Denies chest pain, Denies palpitations and Denies dyspnea Respiratory Respiratory: Denies cough and Denies dyspnea Gastrointestinal Gastrointestinal: Denies abdominal pain Endocrine Endocrine: Denies palpitations Physical Exam Vital Signs: Vital Signs: Last Vital Signs Temp 97.6 F 01/20/22 07:46 Pulse 65 01/20/22 07:46 Resp 18 01/20/22 07:46 BP 109/66 01/20/22 07:46 Pulse Ox 98 01/20/22 07:46 O2 Del Method 01/20/22 07:46 O2 Flow Rate 3 01/20/22 07:46 BMI result Body Mass Index 21.8 Const: Other: Argumentative, frustrated General: comfortable, no acute distress, alert and awake Resp: Effort & Inspection: normal respiratory effort and able to speak in complete sentences Auscultation: clear to auscultation bilaterally Cardio: Rate: regular rate Heart sounds: S1 normal heart sound present and S2 normal heart sound present GI: Palpation (GI): Soft to palpation and nontender Extrem: General: Yes no pedal edema Objective Data Active Medications Acetaminophen (Acetaminophen 325 Mg Tablet) 650 mg PO Q6H PRN PRN Reason: Pain, Mild (Pain Scale 1-3) Atorvastatin Calcium (Atorvastatin Calcium 40 Mg Tablet) 40 mg PO DAILY [facility] Last Admin: 01/20/22 08:48 Dose: 40 mg Documented By: ATIF Dextrose (Dextrose 50 % 25 Gm/50 Ml Syringe) 25 gm IVPUSH Q15M PRN; Protocol PRN Reason: per Hypoglycemia Standing Ord. Divalproex Sodium (Divalproex Sodium Er 250 Mg Tab.Er.24h) 250 mg PO DAILY@1700 [facility] Last Admin: 01/19/22 16:56 Dose: 250 mg Documented By: MARK Divalproex Sodium (Divalproex Sodium Er 500 Mg Tab.Er.24h) 500 mg PO DAILY [facility] Last Admin: 01/20/22 08:47 Dose: 500 mg Documented By: ATIF Enoxaparin Sodium (Enoxaparin Sodium 40 Mg/0.4 Ml Syringe) 40 mg SUBCUT Q24H [facility] Last Admin: 01/19/22 20:50 Dose: 40 mg Documented By: DENISE Ferrous Sulfate (Ferrous Sulfate 324 Mg Tablet.Dr) 324 mg PO BID [facility] Last Admin: 01/20/22 08:48 Dose: 324 mg Documented By: ATIF Fluticasone Propionate (Fluticasone Propionate Nasal 16 Gm [place]) 1 spray NOSTRIL-B BID [facility] Last Admin: 01/20/22 08:54 Dose: Not Given Documented By: ATIF Non-Admin Reason: Patient Refused Furosemide (Furosemide 40 Mg Tablet) 40 mg PO BID@0900,1800 [facility]; Protocol Last Admin: 01/20/22 08:48 Dose: 40 mg Documented By: ATIF Glucose (Glucose Gel 15 Gm Gel..Gram.) 15 gm PO Q15M PRN; Protocol PRN Reason: per Hypoglycemia Standing Ord. Haloperidol (Haloperidol 5 Mg Tablet) 5 mg PO DAILY@1700 [facility] Last Admin: 01/19/22 16:53 Dose: 5 mg Documented By: MARK Haloperidol (Haloperidol 5 Mg Tablet) 10 mg PO BID [facility] Last Admin: 01/20/22 08:47 Dose: 10 mg Documented By: ATIF Insulin Glargine (Insulin Glargine,Hum.Rec.Anlog 100 Unit/Ml 10 Ml Vial) 10 unit SUBCUT BEDTIME [facility] Last Admin: 01/19/22 20:51 Dose: 10 unit Documented By: DENISE Insulin Human Lispro (Insulin Lispro 100 Unit/Ml 3 Ml Vial) 0 unit SUBCUT QIDACHS [facility]; Protocol Last Admin: 01/20/22 08:43 Dose: Not Given Documented By: ATIF Non-Admin Reason: Patient Refused Lorazepam (Lorazepam 1 Mg Tablet) 1 mg PO Q6H PRN PRN Reason: anxiety Melatonin (Melatonin 3 Mg Tablet) 6 mg PO BEDTIME PRN PRN Reason: Insomnia Last Admin: 01/19/22 20:50 Dose: 6 mg Documented By: DENISE Metformin HCl (Metformin Hcl 500 Mg Tablet) 500 mg PO BIDWM [facility] Last Admin: 01/20/22 08:47 Dose: 500 mg Documented By: ATIF Neomycin/Polymyxin/Hydrocortisone (Neomycin/Polymyxin/Hc Otic Melanie 10 Ml Drpbtl) 3 drop EAR-RIGHT QID [facility] Last Admin: 01/20/22 08:54 Dose: Not Given Documented By: ATIF Non-Admin Reason: Patient Refused Olanzapine (Olanzapine Odt 10 Mg Tab.Rapdis) 5 mg TRANSLINGU BID PRN PRN Reason: agitation, psychosis Omeprazole (Omeprazole 20 Mg Capsule.Dr) 20 mg PO DAILY@0630 [facility] Last Admin: 01/20/22 08:47 Dose: 20 mg Documented By: ATIF Senna (Sennosides 8.6 Mg Tablet) 17.2 mg PO BEDTIME PRN PRN Reason: Constipation Sildenafil Citrate (Sildenafil Citrate 20 Mg Tablet) 20 mg PO TID [facility] Last Admin: 01/20/22 08:47 Dose: 20 mg Documented By: ATIF Sitagliptin Phosphate (Sitagliptin Phosphate 100 Mg Tablet) 100 mg PO DAILY [facility] Last Admin: 01/20/22 08:47 Dose: 100 mg Documented By: ATIF Sodium Chloride (0.9 % Sodium Chloride Flush 3 Ml Syringe) 3 ml IVFLUSH QSHIFT [facility] Last Admin: 01/20/22 08:53 Dose: Not Given Documented By: ATIF Non-Admin Reason: No Access Labs CBC & Chem 7: 01/16/22 05:35 01/16/22 05:35 Labs: Laboratory Results - last 24 hr 01/19/22 01/19/22 01/19/22 11:18 16:01 20:02 POC Glucose 223 H 223 H 126 H Assessment and Plan (1) Pulmonary hypertension: Status: Acute Plan 61yo M fpc resident with schizophrenia, DM2, possible COPD/asthma [not formally diagnosed] p/w hypoxia + dyspnea, found to have severe pulmonary HTN/R-sided HF # pulmonary HTN # R-sided HF - started on sildenafil by Pulmonology - IV -> PO furosemide - outpt f/u with Pulm with consideration of R-sided cath # COPD/asthma, provisional diagnosis - outpt PFTs - continue nebs - weaned off steroids - d/c doxycycline # DM2 - basal/bolus insulin - sitagliptin, metformin # schizoaffective disorder - continue VPA, haloperidol - seen by psych, added prn meds VTE ppx - LMWH dispo - cannot go back to , plan LTC, HCP invoked, awaiting bed. per CM: no longer has a bed offer, his guardianship needs to be reviewed in February and they they say it needs to be at least 2 months out.. So I need to start looking for a new bed In my clinical judgment, the patient requires continued hospitalization for the following reasons: safe dispo Quality Stroke Does the patient have a stroke diagnosis?: No VTE Prior VTE?: No VTE Risk Level:: Medical - moderate - high VTE Device Contraindication: Treatment Not Indicated VTE Drug Contraindication: N/A - Med Ordered
[2022-01-20 11:43] VITALS: BP 102/60; PULSE 56; RESP 18; TEMP 36.8; O2SAT 94
[2022-01-20 14:58] LABS: Ammonia 59 umol/L (13-55)
[2022-01-20 15:06] VITALS: BP 120/70; PULSE 82; RESP 18; TEMP 37; O2SAT 91
[2022-01-20 15:11] LABS: Valproate 23.2 mcg/mL (50.0-100.0)
[2022-01-20 16:23] LABS: Glucose, Whole Blood 213 mg/dL (60-115)
[2022-01-20] MEDS: Divalproex Sodium ER 250 MG TAB.ER.24H PO (16:47)
[2022-01-20] MEDS: HaloperidoL 5 MG TABLET PO (16:47)
[2022-01-20] MEDS: Insulin Lispro 100 UNIT/ML 3 ML VIAL SUBCUT ×2 (16:47→20:37)
[2022-01-20 19:26] VITALS: BP 109/56; PULSE 78; RESP 18; TEMP 36.7; O2SAT 91
[2022-01-20 19:52] LABS: Glucose, Whole Blood 155 mg/dL (60-115)
[2022-01-20] MEDS: Insulin Glargine,Hum.rec.anlog 100 UNIT/ML 10 ML VIAL 10 UNIT SUBCUT (20:37)
[2022-01-20] MEDS: Enoxaparin Sodium 40 MG/0.4 ML SYRINGE SUBCUT (20:38)
[2022-01-20 23:49] VITALS: BP 112/48; PULSE 82; RESP 17; TEMP 36.5; O2SAT 97
[2022-01-21] VITALS (7 sets, daily range): BP systolic 107–118; BP diastolic 49–74; PULSE 63–86; RESP 17–20; TEMP 36.1–36.7; O2SAT 91–99
[2022-01-21 08:11] LABS: Glucose, Whole Blood 128 mg/dL (60-115)
[2022-01-21] MEDS: Sildenafil Citrate 20 MG TABLET PO ×3 (09:28→20:25)
[2022-01-21] MEDS: Ferrous Sulfate 324 MG TABLET.DR PO ×2 (09:29→20:24)
[2022-01-21] MEDS: metFORMIN HCl 500 MG TABLET PO ×2 (09:29→16:52)
[2022-01-21] MEDS: HaloperidoL 5 MG TABLET 10 MG PO ×2 (09:29→20:25)
[2022-01-21] MEDS: SITagliptin Phosphate 100 MG TABLET PO (09:29)
[2022-01-21] MEDS: Divalproex Sodium ER 500 MG TAB.ER.24H PO (09:29)
[2022-01-21] MEDS: Furosemide 40 MG TABLET PO ×2 (09:29→16:52)
[2022-01-21] MEDS: Atorvastatin Calcium 40 MG TABLET PO (09:29)
--- NOTE | 2022-01-21 09:50 | HO.PM.IMPN ---
Subjective Subjective Date of Service: 01/21/22 Interval History: seen and examined this morning calm and cooperative, although still upset he is not leaving the hospital no overnight events no specific complaints today denies sob, cough or pain Review of Systems Review of Systems: Yes all other systems are reviewed and are negative Constitutional Constitutional: Denies chills and Denies fever(s) Cardiovascular Cardiovascular: Denies chest pain, Denies palpitations and Denies dyspnea Respiratory Respiratory: Denies cough and Denies dyspnea Gastrointestinal Gastrointestinal: Denies abdominal pain and Denies vomiting Endocrine Endocrine: Denies palpitations Physical Exam Vital Signs: Vital Signs: Last Vital Signs Temp 97.3 F 01/21/22 07:25 Pulse 74 01/21/22 07:25 Resp 17 01/21/22 08:00 BP 110/68 01/21/22 07:25 Pulse Ox 98 01/21/22 07:25 O2 Del Method 01/21/22 07:25 O2 Flow Rate 3 01/21/22 04:00 BMI result Body Mass Index 21.8 Const: Other: Argumentative, frustrated General: comfortable, no acute distress, alert and awake Resp: Effort & Inspection: normal respiratory effort and able to speak in complete sentences Cardio: Rate: regular rate Heart sounds: S1 normal heart sound present and S2 normal heart sound present GI: Palpation (GI): Soft to palpation and nontender Extrem: General: Yes no pedal edema Objective Data Active Medications Acetaminophen (Acetaminophen 325 Mg Tablet) 650 mg PO Q6H PRN PRN Reason: Pain, Mild (Pain Scale 1-3) Atorvastatin Calcium (Atorvastatin Calcium 40 Mg Tablet) 40 mg PO DAILY [facility] Last Admin: 01/21/22 09:29 Dose: 40 mg Documented By: TODD Dextrose (Dextrose 50 % 25 Gm/50 Ml Syringe) 25 gm IVPUSH Q15M PRN; Protocol PRN Reason: per Hypoglycemia Standing Ord. Divalproex Sodium (Divalproex Sodium Er 250 Mg Tab.Er.24h) 250 mg PO DAILY@1700 [facility] Last Admin: 01/20/22 16:47 Dose: 250 mg Documented By: ATIF Divalproex Sodium (Divalproex Sodium Er 500 Mg Tab.Er.24h) 500 mg PO DAILY [facility] Last Admin: 01/21/22 09:29 Dose: 500 mg Documented By: TODD Enoxaparin Sodium (Enoxaparin Sodium 40 Mg/0.4 Ml Syringe) 40 mg SUBCUT Q24H [facility] Last Admin: 01/20/22 20:38 Dose: 40 mg Documented By: DENISE Ferrous Sulfate (Ferrous Sulfate 324 Mg Tablet.Dr) 324 mg PO BID [facility] Last Admin: 01/21/22 09:29 Dose: 324 mg Documented By: TODD Fluticasone Propionate (Fluticasone Propionate Nasal 16 Gm [place]) 1 spray NOSTRIL-B BID [facility] Last Admin: 01/21/22 09:35 Dose: Not Given Documented By: TODD Non-Admin Reason: Patient Refused Furosemide (Furosemide 40 Mg Tablet) 40 mg PO BID@0900,1800 [facility]; Protocol Last Admin: 01/21/22 09:29 Dose: 40 mg Documented By: TODD Glucose (Glucose Gel 15 Gm Gel..Gram.) 15 gm PO Q15M PRN; Protocol PRN Reason: per Hypoglycemia Standing Ord. Haloperidol (Haloperidol 5 Mg Tablet) 5 mg PO DAILY@1700 [facility] Last Admin: 01/20/22 16:47 Dose: 5 mg Documented By: ATIF Haloperidol (Haloperidol 5 Mg Tablet) 10 mg PO BID [facility] Last Admin: 01/21/22 09:29 Dose: 10 mg Documented By: TODD Insulin Glargine (Insulin Glargine,Hum.Rec.Anlog 100 Unit/Ml 10 Ml Vial) 10 unit SUBCUT BEDTIME [facility] Last Admin: 01/20/22 20:37 Dose: 10 unit Documented By: DENISE Insulin Human Lispro (Insulin Lispro 100 Unit/Ml 3 Ml Vial) 0 unit SUBCUT QIDACHS [facility]; Protocol Last Admin: 01/21/22 08:36 Dose: Not Given Documented By: TODD Non-Admin Reason: No Insulin Coverage Lorazepam (Lorazepam 1 Mg Tablet) 1 mg PO Q6H PRN PRN Reason: anxiety Melatonin (Melatonin 3 Mg Tablet) 6 mg PO BEDTIME PRN PRN Reason: Insomnia Last Admin: 01/19/22 20:50 Dose: 6 mg Documented By: DENISE Metformin HCl (Metformin Hcl 500 Mg Tablet) 500 mg PO BIDWM [facility] Last Admin: 01/21/22 09:29 Dose: 500 mg Documented By: TODD Neomycin/Polymyxin/Hydrocortisone (Neomycin/Polymyxin/Hc Otic Melanie 10 Ml Drpbtl) 3 drop EAR-RIGHT QID [facility] Last Admin: 01/21/22 09:35 Dose: Not Given Documented By: TODD Non-Admin Reason: Patient Refused Olanzapine (Olanzapine Odt 10 Mg Tab.Rapdis) 5 mg TRANSLINGU BID PRN PRN Reason: agitation, psychosis Omeprazole (Omeprazole 20 Mg Capsule.Dr) 20 mg PO DAILY@0630 [facility] Last Admin: 01/20/22 08:47 Dose: 20 mg Documented By: ATIF Senna (Sennosides 8.6 Mg Tablet) 17.2 mg PO BEDTIME PRN PRN Reason: Constipation Sildenafil Citrate (Sildenafil Citrate 20 Mg Tablet) 20 mg PO TID [facility] Last Admin: 01/21/22 09:28 Dose: 20 mg Documented By: TODD Sitagliptin Phosphate (Sitagliptin Phosphate 100 Mg Tablet) 100 mg PO DAILY [facility] Last Admin: 01/21/22 09:29 Dose: 100 mg Documented By: TODD Sodium Chloride (0.9 % Sodium Chloride Flush 3 Ml Syringe) 3 ml IVFLUSH QSHIFT [facility] Last Admin: 01/21/22 09:31 Dose: Not Given Documented By: TODD Non-Admin Reason: No Access Labs CBC & Chem 7: 01/16/22 05:35 01/16/22 05:35 Labs: Laboratory Results - last 24 hr 01/20/22 01/20/22 01/20/22 14:35 14:35 15:10 POC Glucose 213 H Ammonia 59 H Valproic Acid 23.2 L 01/20/22 01/21/22 19:24 07:22 POC Glucose 155 H 128 H Ammonia Valproic Acid Assessment and Plan (1) Pulmonary hypertension: Status: Acute Plan 61yo M halfway resident with schizophrenia, DM2, possible COPD/asthma [not formally diagnosed] p/w hypoxia + dyspnea, found to have severe pulmonary HTN/R-sided HF pulmonary HTN R-sided HF - started on sildenafil by Pulmonology - IV -> PO furosemide - outpt f/u with Pulm with consideration of R-sided cath COPD/asthma, provisional diagnosis - outpt PFTs - continue nebs - weaned off steroids - d/c doxycycline DM2 - basal/bolus insulin - sitagliptin, metformin schizoaffective disorder - no behavioral issues at this time - continue VPA, haloperidol - seen by psych, added prn meds HLD - continue statin gerd - continue prilosec VTE ppx - LMWH dispo - cannot go back to , plan LTC, HCP invoked, awaiting bed. Attending - dr. Brunson In my clinical judgment, the patient requires continued hospitalization for the following reasons: safe dispo Quality Stroke Does the patient have a stroke diagnosis?: No VTE Prior VTE?: No VTE Risk Level:: Medical - moderate - high VTE Device Contraindication: Treatment Not Indicated VTE Drug Contraindication: N/A - Med Ordered
[2022-01-21 12:40] LABS: Glucose, Whole Blood 203 mg/dL (60-115)
[2022-01-21] MEDS: Insulin Lispro 100 UNIT/ML 3 ML VIAL SUBCUT ×2 (12:44→20:26)
[2022-01-21 16:18] LABS: Glucose, Whole Blood 103 mg/dL (60-115)
[2022-01-21] MEDS: HaloperidoL 5 MG TABLET PO (16:52)
[2022-01-21] MEDS: Divalproex Sodium ER 250 MG TAB.ER.24H PO (16:52)
[2022-01-21 20:18] LABS: Glucose, Whole Blood 188 mg/dL (60-115)
[2022-01-21] MEDS: Enoxaparin Sodium 40 MG/0.4 ML SYRINGE SUBCUT (20:25)
[2022-01-21] MEDS: Insulin Glargine,Hum.rec.anlog 100 UNIT/ML 10 ML VIAL 10 UNIT SUBCUT (20:26)
[2022-01-22] VITALS (8 sets, daily range): BP systolic 90–113; BP diastolic 55–64; PULSE 55–72; RESP 18; TEMP 35.4–36.5; O2SAT 90–100
[2022-01-22] MEDS: Omeprazole 20 MG CAPSULE.DR PO (06:22)
[2022-01-22 07:35] LABS: Glucose, Whole Blood 129 mg/dL (60-115)
--- NOTE | 2022-01-22 09:41 | HO.PM.IMPN ---
Subjective Subjective Date of Service: 01/22/22 Interval History: f/u on pulm HTN, dyspnea interval history: breathing is comfortable Review of Systems no sob no fever Physical Exam Vital Signs: Vital Signs: Last Vital Signs Temp 97.1 F 01/22/22 07:36 Pulse 61 01/22/22 07:36 Resp 18 01/22/22 07:36 BP 90/55 L 01/22/22 07:36 Pulse Ox 100 01/22/22 07:36 O2 Del Method 01/22/22 07:36 O2 Flow Rate 3 01/22/22 07:36 BMI result Body Mass Index 21.8 Const: Other: General: AO X 2, no acute distress Resp: CTA bilateral CVS: S1,S2,RRR GI: +BS, NT, no distention Skin: No rash Neuro: motor grossly intact Psych: appropriate affect Objective Data Active Medications Acetaminophen (Acetaminophen 325 Mg Tablet) 650 mg PO Q6H PRN PRN Reason: Pain, Mild (Pain Scale 1-3) Atorvastatin Calcium (Atorvastatin Calcium 40 Mg Tablet) 40 mg PO DAILY [facility] Last Admin: 01/21/22 09:29 Dose: 40 mg Documented By: TODD Dextrose (Dextrose 50 % 25 Gm/50 Ml Syringe) 25 gm IVPUSH Q15M PRN; Protocol PRN Reason: per Hypoglycemia Standing Ord. Divalproex Sodium (Divalproex Sodium Er 250 Mg Tab.Er.24h) 250 mg PO DAILY@1700 [facility] Last Admin: 01/21/22 16:52 Dose: 250 mg Documented By: TODD Divalproex Sodium (Divalproex Sodium Er 500 Mg Tab.Er.24h) 500 mg PO DAILY [facility] Last Admin: 01/21/22 09:29 Dose: 500 mg Documented By: TODD Enoxaparin Sodium (Enoxaparin Sodium 40 Mg/0.4 Ml Syringe) 40 mg SUBCUT Q24H [facility] Last Admin: 01/21/22 20:25 Dose: 40 mg Documented By: DENISE Ferrous Sulfate (Ferrous Sulfate 324 Mg Tablet.Dr) 324 mg PO BID [facility] Last Admin: 01/21/22 20:24 Dose: 324 mg Documented By: DENISE Fluticasone Propionate (Fluticasone Propionate Nasal 16 Gm [place]) 1 spray NOSTRIL-B BID [facility] Last Admin: 01/21/22 20:26 Dose: Not Given Documented By: DENISE Non-Admin Reason: Patient Refused Furosemide (Furosemide 40 Mg Tablet) 40 mg PO BID@0900,1800 [facility]; Protocol Last Admin: 01/22/22 08:31 Dose: Not Given Documented By: TRUDI Non-Admin Reason: Decreased Blood Pressure Comments: bp 90/55 Glucose (Glucose Gel 15 Gm Gel..Gram.) 15 gm PO Q15M PRN; Protocol PRN Reason: per Hypoglycemia Standing Ord. Haloperidol (Haloperidol 5 Mg Tablet) 5 mg PO DAILY@1700 [facility] Last Admin: 01/21/22 16:52 Dose: 5 mg Documented By: TODD Haloperidol (Haloperidol 5 Mg Tablet) 10 mg PO BID [facility] Last Admin: 01/21/22 20:25 Dose: 10 mg Documented By: DENISE Insulin Glargine (Insulin Glargine,Hum.Rec.Anlog 100 Unit/Ml 10 Ml Vial) 10 unit SUBCUT BEDTIME [facility] Last Admin: 01/21/22 20:26 Dose: 10 unit Documented By: DENISE Insulin Human Lispro (Insulin Lispro 100 Unit/Ml 3 Ml Vial) 0 unit SUBCUT QIDACHS [facility]; Protocol Last Admin: 01/22/22 07:40 Dose: Not Given Documented By: TRUDI Non-Admin Reason: No Insulin Coverage Lorazepam (Lorazepam 1 Mg Tablet) 1 mg PO Q6H PRN PRN Reason: anxiety Melatonin (Melatonin 3 Mg Tablet) 6 mg PO BEDTIME PRN PRN Reason: Insomnia Last Admin: 01/19/22 20:50 Dose: 6 mg Documented By: DENISE Metformin HCl (Metformin Hcl 500 Mg Tablet) 500 mg PO BIDWM [facility] Last Admin: 01/21/22 16:52 Dose: 500 mg Documented By: TODD Neomycin/Polymyxin/Hydrocortisone (Neomycin/Polymyxin/Hc Otic Melanie 10 Ml Drpbtl) 3 drop EAR-RIGHT QID [facility] Last Admin: 01/21/22 20:27 Dose: Not Given Documented By: DENISE Non-Admin Reason: Patient Refused Olanzapine (Olanzapine Odt 10 Mg Tab.Rapdis) 5 mg TRANSLINGU BID PRN PRN Reason: agitation, psychosis Omeprazole (Omeprazole 20 Mg Capsule.Dr) 20 mg PO DAILY@0630 [facility] Last Admin: 01/22/22 06:22 Dose: 20 mg Documented By: DENISE Senna (Sennosides 8.6 Mg Tablet) 17.2 mg PO BEDTIME PRN PRN Reason: Constipation Sildenafil Citrate (Sildenafil Citrate 20 Mg Tablet) 20 mg PO TID [facility] Last Admin: 01/21/22 20:25 Dose: 20 mg Documented By: DENISE Sitagliptin Phosphate (Sitagliptin Phosphate 100 Mg Tablet) 100 mg PO DAILY [facility] Last Admin: 01/21/22 09:29 Dose: 100 mg Documented By: TODD Sodium Chloride (0.9 % Sodium Chloride Flush 3 Ml Syringe) 3 ml IVFLUSH QSHIFT [facility] Last Admin: 01/22/22 08:29 Dose: Not Given Documented By: TRUDI Non-Admin Reason: No Access Labs CBC & Chem 7: 01/16/22 05:35 01/16/22 05:35 Labs: Laboratory Results - last 24 hr 01/21/22 01/21/22 01/21/22 12:35 16:10 20:15 POC Glucose 203 H 103 188 H 01/22/22 07:30 POC Glucose 129 H Assessment and Plan (1) Pulmonary hypertension: Status: Acute Plan 61yo M senior care resident with schizophrenia, DM2, possible COPD/asthma [not formally diagnosed] p/w hypoxia + dyspnea, found to have severe pulmonary HTN/R-sided HF pulmonary HTN R-sided HF - started on sildenafil by Pulmonology - PO furosemide - outpt f/u with Pulm with consideration of R-sided cath COPD/asthma, provisional diagnosis - outpt PFTs - continue nebs - off steroids -completed doxy DM2 - basal/bolus insulin - sitagliptin, metformin schizoaffective disorder - no behavioral issues at this time - continue VPA, haloperidol - seen by psych, added prn meds HLD - continue statin gerd - continue prilosec VTE ppx - LMWH dispo - cannot go back to [facility], plan to dc to LTC, HCP invoked, awaiting bed. In my clinical judgment, the patient requires continued hospitalization for the following reasons: safe dispo to LTC when bed available Quality Stroke Does the patient have a stroke diagnosis?: No VTE Prior VTE?: No VTE Risk Level:: Medical - moderate - high VTE Device Contraindication: Treatment Not Indicated VTE Drug Contraindication: N/A - Med Ordered
[2022-01-22 11:20] LABS: Glucose, Whole Blood 225 mg/dL (60-115)
[2022-01-22] MEDS: Insulin Lispro 100 UNIT/ML 3 ML VIAL SUBCUT ×2 (11:39→20:55)
--- NOTE | 2022-01-22 13:12 | MHC.CM.PN ---
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 note electronic medical rexord reviewed along with case discussed with staff nruse and the hospitlsit , and on multiple disciplainry rounds [facility] referrals - michael lee,pancho of ([facility], [facility], )no beds, [facility]hab no ltc bed available [facility] ([facility], [facility], [facility] , [facility], no beds, [facility], [facility], [facility], [facility], [facility] ([facility], [place], [place] ,[place], [place], [place], [facility], [place], still working on [facility] contracts) bettye andres [facility], [facility], [facility], [facility],,[facility], [facility], [facility], [facility] , [facility] ([facility] [place], [facility], [facility]. [facility], [facility], [facility], [facility] ([facility], [facility], [facility],,[facility], [facility], [facility] ([facility], [facility], [facility]. micheline olivier,[facility], [facility] availability), [facility], [facility], [facility] no bed availability[facility] no locked unit, [facility], [facility], [facility], [facility], [facility], [facility], [facility] no bed availability for regional [employer] care follow up phone calls to [facility] [phone] dalia chaudhari message left requesting call back [facility] [phone] message left requesting call back . fabrizio lee [phone] jt russ requesting call back [facility] [phone] requesting call back pillowcase cleaner to continue to follow and make additional referrals
[2022-01-22 16:37] LABS: Glucose, Whole Blood 146 mg/dL (60-115)
[2022-01-22] MEDS: Furosemide 40 MG TABLET PO (16:44)
[2022-01-22] MEDS: metFORMIN HCl 500 MG TABLET PO (16:44)
[2022-01-22] MEDS: Sildenafil Citrate 20 MG TABLET PO ×2 (16:44→20:54)
[2022-01-22] MEDS: Divalproex Sodium ER 250 MG TAB.ER.24H PO (16:44)
[2022-01-22] MEDS: HaloperidoL 5 MG TABLET PO (16:44)
[2022-01-22 19:46] LABS: Glucose, Whole Blood 216 mg/dL (60-115)
[2022-01-22] MEDS: Ferrous Sulfate 324 MG TABLET.DR PO (20:54)
[2022-01-22] MEDS: HaloperidoL 5 MG TABLET 10 MG PO (20:54)
[2022-01-22] MEDS: Insulin Glargine,Hum.rec.anlog 100 UNIT/ML 10 ML VIAL 10 UNIT SUBCUT (20:55)
[2022-01-22] MEDS: Enoxaparin Sodium 40 MG/0.4 ML SYRINGE SUBCUT (20:55)
[2022-01-22] MEDS: NeoMYCIN/Polymyxin/HC Otic Sus 10 ML DRPBTL 3 DROP EAR-RIGHT (20:56)
[2022-01-23] MEDS: Omeprazole 20 MG CAPSULE.DR PO (05:44)
[2022-01-23 07:14] LABS: Creatinine Clr Calc Pharmacy 86.8; Estimated Glomerular Filt Rate > 60
[2022-01-23 07:21] VITALS: BP 121/70; PULSE 50; RESP 18; TEMP 36.3; O2SAT 98
--- NOTE | 2022-01-23 08:10 | P.PNIM_ITS ---
Subjective Subjective Date of Service: 01/23/22 Interval History: f/u on pulm HTN, dyspnea interval history: breathing is comfortable, agiatated and upset this morning wanting to go home Review of Systems no sob no fever Physical Exam Vital Signs: Vital Signs: Last Vital Signs Temp 97.3 F 01/23/22 07:21 Pulse 50 01/23/22 07:21 Resp 18 01/23/22 07:21 BP 121/70 01/23/22 07:21 Pulse Ox 98 01/23/22 07:21 O2 Del Method 01/23/22 07:21 O2 Flow Rate 2 01/23/22 07:21 BMI result Body Mass Index 21.8 Const: Other: General: AO X 2, no acute distress Resp: CTA bilateral CVS: S1,S2,RRR GI: +BS, NT, no distention Skin: No rash Neuro: motor grossly intact Psych: appropriate affect Objective Data Active Medications Acetaminophen (Acetaminophen 325 Mg Tablet) 650 mg PO Q6H PRN PRN Reason: Pain, Mild (Pain Scale 1-3) Atorvastatin Calcium (Atorvastatin Calcium 40 Mg Tablet) 40 mg PO DAILY [facility] Last Admin: 01/22/22 10:57 Dose: Not Given Documented By: TRUDI Non-Admin Reason: Patient Refused Dextrose (Dextrose 50 % 25 Gm/50 Ml Syringe) 25 gm IVPUSH Q15M PRN; Protocol PRN Reason: per Hypoglycemia Standing Ord. Divalproex Sodium (Divalproex Sodium Er 250 Mg Tab.Er.24h) 250 mg PO DAILY@1700 [facility] Last Admin: 01/22/22 16:44 Dose: 250 mg Documented By: TRUDI Divalproex Sodium (Divalproex Sodium Er 500 Mg Tab.Er.24h) 500 mg PO DAILY [facility] Last Admin: 01/22/22 10:58 Dose: Not Given Documented By: TRUDI Non-Admin Reason: Patient Refused Enoxaparin Sodium (Enoxaparin Sodium 40 Mg/0.4 Ml Syringe) 40 mg SUBCUT Q24H [facility] Last Admin: 01/22/22 20:55 Dose: 40 mg Documented By: ANDFRANCES Ferrous Sulfate (Ferrous Sulfate 324 Mg Tablet.) 324 mg PO BID [facility] Last Admin: 01/22/22 20:54 Dose: 324 mg Documented By: BERNY Fluticasone Propionate (Fluticasone Propionate Nasal 16 Gm [place]) 1 spray NOSTRIL-B BID [facility] Last Admin: 01/22/22 20:56 Dose: Not Given Documented By: BERNY Non-Admin Reason: Patient Refused Furosemide (Furosemide 40 Mg Tablet) 40 mg PO BID@0900,1800 [facility]; Protocol Last Admin: 01/22/22 16:44 Dose: 40 mg Documented By: TRUDI Glucose (Glucose Gel 15 Gm Gel..Gram.) 15 gm PO Q15M PRN; Protocol PRN Reason: per Hypoglycemia Standing Ord. Haloperidol (Haloperidol 5 Mg Tablet) 5 mg PO DAILY@1700 [facility] Last Admin: 01/22/22 16:44 Dose: 5 mg Documented By: TRUDI Haloperidol (Haloperidol 5 Mg Tablet) 10 mg PO BID [facility] Last Admin: 01/22/22 20:54 Dose: 10 mg Documented By: BERNY Insulin Glargine (Insulin Glargine,Hum.Rec.Anlog 100 Unit/Ml 10 Ml Vial) 10 unit SUBCUT BEDTIME [facility] Last Admin: 01/22/22 20:55 Dose: 10 unit Documented By: BERNY Insulin Human Lispro (Insulin Lispro 100 Unit/Ml 3 Ml Vial) 0 unit SUBCUT QIDACHS [facility]; Protocol Last Admin: 01/22/22 20:55 Dose: 4 unit Documented By: BERNY Lorazepam (Lorazepam 1 Mg Tablet) 1 mg PO Q6H PRN PRN Reason: anxiety Melatonin (Melatonin 3 Mg Tablet) 6 mg PO BEDTIME PRN PRN Reason: Insomnia Last Admin: 01/19/22 20:50 Dose: 6 mg Documented By: DENISE Metformin HCl (Metformin Hcl 500 Mg Tablet) 500 mg PO BIDWM [facility] Last Admin: 01/22/22 16:44 Dose: 500 mg Documented By: TRUDI Neomycin/Polymyxin/Hydrocortisone (Neomycin/Polymyxin/Hc Otic Melanie 10 Ml Drpbtl) 3 drop EAR-RIGHT QID [facility] Last Admin: 01/22/22 20:56 Dose: 3 drop Documented By: BERNY Olanzapine (Olanzapine Odt 10 Mg Tab.Rapdis) 5 mg TRANSLINGU BID PRN PRN Reason: agitation, psychosis Omeprazole (Omeprazole 20 Mg Capsule.Dr) 20 mg PO DAILY@0630 [facility] Last Admin: 01/23/22 05:44 Dose: 20 mg Documented By: BERNY Senna (Sennosides 8.6 Mg Tablet) 17.2 mg PO BEDTIME PRN PRN Reason: Constipation Sildenafil Citrate (Sildenafil Citrate 20 Mg Tablet) 20 mg PO TID [facility] Last Admin: 01/22/22 20:54 Dose: 20 mg Documented By: BERNY Sitagliptin Phosphate (Sitagliptin Phosphate 100 Mg Tablet) 100 mg PO DAILY [facility] Last Admin: 01/22/22 10:58 Dose: Not Given Documented By: TRUDI Non-Admin Reason: Patient Refused Sodium Chloride (0.9 % Sodium Chloride Flush 3 Ml Syringe) 3 ml IVFLUSH QSHIFT [facility] Last Admin: 01/22/22 21:32 Dose: Not Given Documented By: BERNY Non-Admin Reason: No Access Labs CBC & Chem 7: 01/16/22 05:35 01/23/22 05:51 Labs: Laboratory Results - last 24 hr 01/22/22 01/22/22 01/22/22 11:10 15:43 19:23 Estim Creat Clear Calc Estimated GFR POC Glucose 225 H 146 H 216 H 01/23/22 05:51 Estim Creat Clear Calc 86.8 Estimated GFR > 60 POC Glucose Assessment and Plan (1) Pulmonary hypertension: Status: Acute Plan 61yo M long term resident with schizophrenia, DM2, possible COPD/asthma [not formally diagnosed] p/w hypoxia + dyspnea, found to have severe pulmonary HTN/R-sided HF pulmonary HTN R-sided HF - started on sildenafil by Pulmonology - PO furosemide - outpt f/u with Pulm with consideration of R-sided cath COPD/asthma, provisional diagnosis - outpt PFTs - continue nebs - off steroids -completed doxy DM2 - basal/bolus insulin - sitagliptin, metformin schizoaffective disorder - no behavioral issues at this time - continue VPA, haloperidol - seen by psych, added prn meds HLD - continue statin gerd - continue prilosec VTE ppx - LMWH dispo - cannot go back to Detention, plan to dc to LTC, HCP invoked, awaiting bed. Need for inpatient stay: safe dispo to LTC when bed available Quality Stroke Does the patient have a stroke diagnosis?: No VTE Prior VTE?: No VTE Risk Level:: Medical - moderate - high VTE Device Contraindication: Treatment Not Indicated VTE Drug Contraindication: N/A - Med Ordered
[2022-01-23] MEDS: SITagliptin Phosphate 100 MG TABLET PO (09:09)
[2022-01-23] MEDS: metFORMIN HCl 500 MG TABLET PO ×2 (09:09→16:54)
[2022-01-23] MEDS: Sildenafil Citrate 20 MG TABLET PO ×2 (09:09→16:54)
[2022-01-23] MEDS: Divalproex Sodium ER 500 MG TAB.ER.24H PO (09:09)
[2022-01-23] MEDS: Furosemide 40 MG TABLET PO ×2 (09:09→16:54)
[2022-01-23] MEDS: Ferrous Sulfate 324 MG TABLET.DR PO (09:09)
[2022-01-23] MEDS: Atorvastatin Calcium 40 MG TABLET PO (09:09)
[2022-01-23] MEDS: HaloperidoL 5 MG TABLET 10 MG PO (09:09)
--- NOTE | 2022-01-23 10:13 | MHC.CM.PN ---
Addendum entered by Katharine Garcia 01/23/22 16:09: [facility] WILL TO ACCEPT PATIENT TO THEIR FACILITY PER ROMY [phone], JOSEPH , SHE REPORTED A LEVEL I NEEDS TO BE SENT IN FOR LEVEL 2 PAPERWORK ?. HE WOULD NEED TO BE RAPID COVID VACINATION AND ONE OF HIS PSYCH MEDS SHE HAS A QUESTION TELEPHONE CALL TO [facility] ACCEPTING AND WANTS TO BE SURE IT IS A SECURE LOCKED UNIT , I RAMIREZ D BACK TO [facility] AND SHE IS VERIFINY THIS AND WILL GET BACK TO US TOMORROW Addendum entered by Katharine Garcia 01/23/22 13:29: [phone] asked about derrek infor which i gave her and also sent clinical updates to her via [employer] , also sent out [facility] placement case manger to continue to follow and make referrals t.c cll to moustapha jones [phone] with updates , in regards to trying to secure facilitiy for lon term care , she reported to me that she has a few patient s at [facility] and she e mailed the socila worker there and also has never recived a respomnse , she reported she will try calling tomorrow soha lee Original Note: nurse registered nurse hh case manager ntoe follow up on referrals sent 01/22/22,:IVY LEE, [facility], [facility], [facility], [facility], [facility], [facility], [facility],, [facility] [place], DENIAL SECONDARY TO NO SHELVER BED AVAILABILITY, NO LOCEKED UNIT , EZCEDD LEVEL OF CARE ,
[2022-01-23 10:54] VITALS: BP 115/69; PULSE 47; RESP 18; TEMP 36; O2SAT 99
[2022-01-23 11:01] LABS: Glucose, Whole Blood 155 mg/dL (60-115)
[2022-01-23] MEDS: Insulin Lispro 100 UNIT/ML 3 ML VIAL SUBCUT ×2 (11:58→16:51)
[2022-01-23 15:35] VITALS: BP 111/63; PULSE 62; RESP 18; TEMP 36.4; O2SAT 94
[2022-01-23 16:00] VITALS: BP 111/63; PULSE 62; RESP 18; TEMP 36.4; O2SAT 94
[2022-01-23 16:31] LABS: Glucose, Whole Blood 204 mg/dL (60-115)
[2022-01-23] MEDS: HaloperidoL 5 MG TABLET PO (16:54)
[2022-01-23] MEDS: Divalproex Sodium ER 250 MG TAB.ER.24H PO (16:54)
[2022-01-23 20:20] LABS: Glucose, Whole Blood 146 mg/dL (60-115)
[2022-01-23 20:25] VITALS: BP 109/66; PULSE 55; RESP 18; TEMP 36.1; O2SAT 92
[2022-01-23 23:33] VITALS: BP 112/68; PULSE 62; RESP 18; TEMP 36.3; O2SAT 95
[2022-01-24 03:46] VITALS: BP 112/59; PULSE 62; RESP 17; TEMP 36.3; O2SAT 94
--- NOTE | 2022-01-24 09:17 | HO.PM.IMPN ---
Subjective Subjective Date of Service: 01/24/22 Interval History: f/u on pulm HTN, dyspnea interval history: breathing is comfortable, he remains upset about not been able to go home Review of Systems no sob no fever Physical Exam Vital Signs: Vital Signs: Last Vital Signs Temp 97.3 F 01/24/22 03:46 Pulse 62 01/24/22 03:46 Resp 17 01/24/22 03:46 BP 112/59 L 01/24/22 03:46 Pulse Ox 94 01/24/22 03:46 O2 Del Method 01/24/22 03:46 O2 Flow Rate 2 01/24/22 03:46 BMI result Body Mass Index 21.8 Const: Other: General: AO X 2, no acute distress Resp: CTA bilateral CVS: S1,S2,RRR GI: +BS, NT, no distention Skin: No rash Neuro: motor grossly intact Psych: appropriate affect Objective Data Active Medications Acetaminophen (Acetaminophen 325 Mg Tablet) 650 mg PO Q6H PRN PRN Reason: Pain, Mild (Pain Scale 1-3) Atorvastatin Calcium (Atorvastatin Calcium 40 Mg Tablet) 40 mg PO DAILY [facility] Last Admin: 01/23/22 09:09 Dose: 40 mg Documented By: MARK Dextrose (Dextrose 50 % 25 Gm/50 Ml Syringe) 25 gm IVPUSH Q15M PRN; Protocol PRN Reason: per Hypoglycemia Standing Ord. Divalproex Sodium (Divalproex Sodium Er 250 Mg Tab.Er.24h) 250 mg PO DAILY@1700 [facility] Last Admin: 01/23/22 16:54 Dose: 250 mg Documented By: MARK Divalproex Sodium (Divalproex Sodium Er 500 Mg Tab.Er.24h) 500 mg PO DAILY [facility] Last Admin: 01/23/22 09:09 Dose: 500 mg Documented By: MARK Enoxaparin Sodium (Enoxaparin Sodium 40 Mg/0.4 Ml Syringe) 40 mg SUBCUT Q24H [facility] Last Admin: 01/23/22 22:12 Dose: Not Given Documented By: BLADIMIR Non-Admin Reason: Patient Refused Ferrous Sulfate (Ferrous Sulfate 324 Mg Tablet.) 324 mg PO BID [facility] Last Admin: 01/23/22 22:13 Dose: Not Given Documented By: BLADIMIR Non-Admin Reason: Patient Refused Fluticasone Propionate (Fluticasone Propionate Nasal 16 Gm [place]) 1 spray NOSTRIL-B BID [facility] Last Admin: 01/23/22 22:13 Dose: Not Given Documented By: BLADIMIR Non-Admin Reason: Patient Refused Furosemide (Furosemide 40 Mg Tablet) 40 mg PO BID@0900,1800 [facility]; Protocol Last Admin: 01/23/22 16:54 Dose: 40 mg Documented By: MARK Glucose (Glucose Gel 15 Gm Gel..Gram.) 15 gm PO Q15M PRN; Protocol PRN Reason: per Hypoglycemia Standing Ord. Haloperidol (Haloperidol 5 Mg Tablet) 5 mg PO DAILY@1700 [facility] Last Admin: 01/23/22 16:54 Dose: 5 mg Documented By: MARK Haloperidol (Haloperidol 5 Mg Tablet) 10 mg PO BID [facility] Last Admin: 01/23/22 22:13 Dose: Not Given Documented By: BLADIMIR Non-Admin Reason: Patient Refused Insulin Glargine (Insulin Glargine,Hum.Rec.Anlog 100 Unit/Ml 10 Ml Vial) 10 unit SUBCUT BEDTIME [facility] Last Admin: 01/23/22 22:13 Dose: Not Given Documented By: BLADIMIR Non-Admin Reason: Patient Refused Insulin Human Lispro (Insulin Lispro 100 Unit/Ml 3 Ml Vial) 0 unit SUBCUT QIDACHS [facility]; Protocol Last Admin: 01/24/22 07:24 Dose: Not Given Documented By: WILNER Non-Admin Reason: Patient Refused Lorazepam (Lorazepam 1 Mg Tablet) 1 mg PO Q6H PRN PRN Reason: anxiety Melatonin (Melatonin 3 Mg Tablet) 6 mg PO BEDTIME PRN PRN Reason: Insomnia Last Admin: 01/19/22 20:50 Dose: 6 mg Documented By: DENISE Metformin HCl (Metformin Hcl 500 Mg Tablet) 500 mg PO BIDWM [facility] Last Admin: 01/23/22 16:54 Dose: 500 mg Documented By: MARK Neomycin/Polymyxin/Hydrocortisone (Neomycin/Polymyxin/Hc Otic Melanie 10 Ml Drpbtl) 3 drop EAR-RIGHT QID [facility] Last Admin: 01/23/22 22:14 Dose: Not Given Documented By: BLADIMIR Non-Admin Reason: Patient Refused Olanzapine (Olanzapine Odt 10 Mg Tab.Rapdis) 5 mg TRANSLINGU BID PRN PRN Reason: agitation, psychosis Omeprazole (Omeprazole 20 Mg [place].) 20 mg PO DAILY@0630 [facility] Last Admin: 01/24/22 06:00 Dose: Not Given Documented By: BLADIMIR Non-Admin Reason: Patient Refused Senna (Sennosides 8.6 Mg Tablet) 17.2 mg PO BEDTIME PRN PRN Reason: Constipation Sildenafil Citrate (Sildenafil Citrate 20 Mg Tablet) 20 mg PO TID [facility] Last Admin: 01/23/22 22:14 Dose: Not Given Documented By: BLADIMIR Non-Admin Reason: Patient Refused Sitagliptin Phosphate (Sitagliptin Phosphate 100 Mg Tablet) 100 mg PO DAILY [facility] Last Admin: 01/23/22 09:09 Dose: 100 mg Documented By: MARK Sodium Chloride (0.9 % Sodium Chloride Flush 3 Ml Syringe) 3 ml IVFLUSH QSHIFT [facility] Last Admin: 01/24/22 08:32 Dose: Not Given Documented By: WILNER Non-Admin Reason: No Access Labs CBC & Chem 7: 01/16/22 05:35 01/23/22 05:51 Labs: Laboratory Results - last 24 hr 01/23/22 01/23/22 01/23/22 10:57 15:58 20:07 POC Glucose 155 H 204 H 146 H Assessment and Plan (1) Pulmonary hypertension: Status: Acute Plan 61yo M detention resident with schizophrenia, DM2, possible COPD/asthma [not formally diagnosed] p/w hypoxia + dyspnea, found to have severe pulmonary HTN/R-sided HF pulmonary HTN R-sided HF - started on sildenafil by Pulmonology - PO furosemide - outpt f/u with Pulm with consideration of R-sided cath COPD/asthma, provisional diagnosis - outpt PFTs - continue nebs - off steroids -completed doxy DM2 - basal/bolus insulin - sitagliptin, metformin schizoaffective disorder - no behavioral issues at this time - continue VPA, haloperidol - seen by psych, added prn meds HLD - continue statin GERD - continue prilosec VTE ppx - LMWH dispo - cannot go back to Detention, plan to dc to LTC, HCP invoked, awaiting bed. Need for inpatient stay: safe dispo to LTC when bed available Quality Stroke Does the patient have a stroke diagnosis?: No VTE Prior VTE?: No VTE Risk Level:: Medical - moderate - high VTE Device Contraindication: Treatment Not Indicated VTE Drug Contraindication: N/A - Med Ordered
--- NOTE | 2022-01-24 10:10 | MHC.CM.PN ---
[facility] in [place] has made bed offer on non locked unit pending Level 2 completion, guardian approval, and insurance auth. They stated patient could be moved to locked unit once bed available. Call to guardian, Yajaira Wright at [phone]. She requested further information on facility including patient access to exit doors and plan to prevent elopement for patients not on locked unit. Sent message to facility, awaiting reply.
[2022-01-24 10:48] VITALS: BP 106/66; PULSE 66; RESP 18; TEMP 36.4; O2SAT 92
[2022-01-24 10:59] LABS: Glucose, Whole Blood 155 mg/dL (60-115)
[2022-01-24 15:48] LABS: Glucose, Whole Blood 139 mg/dL (60-115)
[2022-01-24 16:00] VITALS: BP 107/68; PULSE 79; RESP 18; TEMP 36.1; O2SAT 94
[2022-01-24] MEDS: HaloperidoL 5 MG TABLET PO (16:06)
[2022-01-24] MEDS: metFORMIN HCl 500 MG TABLET PO (16:08)
[2022-01-24 19:41] VITALS: BP 102/65; PULSE 60; RESP 18; TEMP 36.4; O2SAT 98
[2022-01-24 20:03] LABS: Glucose, Whole Blood 207 mg/dL (60-115)
[2022-01-24] MEDS: Sildenafil Citrate 20 MG TABLET PO (20:59)
[2022-01-24] MEDS: Insulin Glargine,Hum.rec.anlog 100 UNIT/ML 10 ML VIAL 10 UNIT SUBCUT (20:59)
[2022-01-24] MEDS: Ferrous Sulfate 324 MG TABLET.DR PO (20:59)
[2022-01-24] MEDS: HaloperidoL 5 MG TABLET 10 MG PO (20:59)
[2022-01-24] MEDS: Insulin Lispro 100 UNIT/ML 3 ML VIAL SUBCUT (21:00)
[2022-01-24 23:31] VITALS: BP 112/66; PULSE 58; RESP 18; TEMP 36.5; O2SAT 97
[2022-01-25 04:00] VITALS: BP 118/64; PULSE 77; RESP 17; TEMP 36.3; O2SAT 95
[2022-01-25] MEDS: Omeprazole 20 MG CAPSULE.DR PO (05:29)
[2022-01-25 07:16] VITALS: BP 112/62; PULSE 70; RESP 15; TEMP 36.6; O2SAT 99
[2022-01-25] MEDS: Insulin Lispro 100 UNIT/ML 3 ML VIAL SUBCUT ×2 (08:33→20:26)
[2022-01-25] MEDS: HaloperidoL 5 MG TABLET 10 MG PO ×2 (08:38→20:26)
[2022-01-25 08:43] LABS: Glucose, Whole Blood 230 mg/dL (60-115)
--- NOTE | 2022-01-25 10:50 | P.PNIM_ITS ---
Subjective Subjective Date of Service: 01/25/22 Interval History: f/u on pulm HTN, dyspnea interval history: breathing is comfortable,wants to go home Review of Systems no sob no fever Physical Exam Vital Signs: Vital Signs: Last Vital Signs Temp 97.9 F 01/25/22 07:16 Pulse 70 01/25/22 07:16 Resp 15 01/25/22 07:16 BP 112/62 01/25/22 07:16 Pulse Ox 99 01/25/22 07:16 O2 Del Method 01/25/22 07:16 O2 Flow Rate 2 01/25/22 07:16 BMI result Body Mass Index 21.8 Const: Other: General: AO X 2, no acute distress Resp: CTA bilateral CVS: S1,S2,RRR GI: +BS, NT, no distention Skin: No rash Neuro: motor grossly intact Psych: appropriate affect Objective Data Active Medications Acetaminophen (Acetaminophen 325 Mg Tablet) 650 mg PO Q6H PRN PRN Reason: Pain, Mild (Pain Scale 1-3) Atorvastatin Calcium (Atorvastatin Calcium 40 Mg Tablet) 40 mg PO DAILY [facility] Last Admin: 01/25/22 08:39 Dose: Not Given Documented By: WILNER Non-Admin Reason: Patient Refused Dextrose (Dextrose 50 % 25 Gm/50 Ml Syringe) 25 gm IVPUSH Q15M PRN; Protocol PRN Reason: per Hypoglycemia Standing Ord. Divalproex Sodium (Divalproex Sodium Er 250 Mg Tab.Er.24h) 250 mg PO DAILY@1700 [facility] Last Admin: 01/24/22 16:09 Dose: Not Given Documented By: WILNER Non-Admin Reason: Patient Refused Divalproex Sodium (Divalproex Sodium Er 500 Mg Tab.Er.24h) 500 mg PO DAILY [facility] Last Admin: 01/25/22 08:39 Dose: Not Given Documented By: WILNER Non-Admin Reason: Patient Refused Enoxaparin Sodium (Enoxaparin Sodium 40 Mg/0.4 Ml Syringe) 40 mg SUBCUT Q24H [facility] Last Admin: 01/24/22 21:01 Dose: Not Given Documented By: MADELINE Non-Admin Reason: Patient Refused Ferrous Sulfate (Ferrous Sulfate 324 Mg Tablet.) 324 mg PO BID [facility] Last Admin: 01/25/22 08:40 Dose: Not Given Documented By: WILNER Non-Admin Reason: Patient Refused Fluticasone Propionate (Fluticasone Propionate Nasal 16 Gm [place]) 1 spray NOSTRIL-B BID [facility] Last Admin: 01/25/22 08:40 Dose: Not Given Documented By: WILNER Non-Admin Reason: Patient Refused Furosemide (Furosemide 40 Mg Tablet) 40 mg PO BID@0900,1800 [facility]; Protocol Last Admin: 01/25/22 08:40 Dose: Not Given Documented By: WILNER Non-Admin Reason: Patient Refused Glucose (Glucose Gel 15 Gm Gel..Gram.) 15 gm PO Q15M PRN; Protocol PRN Reason: per Hypoglycemia Standing Ord. Haloperidol (Haloperidol 5 Mg Tablet) 10 mg PO BID [facility] Last Admin: 01/25/22 08:38 Dose: 10 mg Documented By: WILNER Insulin Glargine (Insulin Glargine,Hum.Rec.Anlog 100 Unit/Ml 10 Ml Vial) 10 unit SUBCUT BEDTIME [facility] Last Admin: 01/24/22 20:59 Dose: 10 unit Documented By: MADELINE Insulin Human Lispro (Insulin Lispro 100 Unit/Ml 3 Ml Vial) 0 unit SUBCUT QID [facility]; Protocol Last Admin: 01/25/22 08:33 Dose: 6 unit Documented By: WILNER Melatonin (Melatonin 3 Mg Tablet) 6 mg PO BEDTIME PRN PRN Reason: Insomnia Last Admin: 01/19/22 20:50 Dose: 6 mg Documented By: DENISE Metformin HCl (Metformin Hcl 500 Mg Tablet) 500 mg PO BIDWM [facility] Last Admin: 01/25/22 08:39 Dose: Not Given Documented By: WILNER Non-Admin Reason: Patient Refused Neomycin/Polymyxin/Hydrocortisone (Neomycin/Polymyxin/Hc Otic [place]anie 10 Ml Drpbtl) 3 drop EAR-RIGHT QID [facility] Last Admin: 01/25/22 08:40 Dose: Not Given Documented By: WILNER Non-Admin Reason: Patient Refused Olanzapine (Olanzapine Odt 10 Mg Tab.Rapdis) 5 mg TRANSLINGU BID PRN PRN Reason: agitation, psychosis Omeprazole (Omeprazole 20 Mg Capsule.Dr) 20 mg PO DAILY@0630 [facility] Last Admin: 01/25/22 05:29 Dose: 20 mg Documented By: BLADIMIR Senna (Sennosides 8.6 Mg Tablet) 17.2 mg PO BEDTIME PRN PRN Reason: Constipation Sildenafil Citrate (Sildenafil Citrate 20 Mg Tablet) 20 mg PO TID [facility] Last Admin: 01/25/22 08:40 Dose: Not Given Documented By: WILNER Non-Admin Reason: Patient Refused Sitagliptin Phosphate (Sitagliptin Phosphate 100 Mg Tablet) 100 mg PO DAILY [facility] Last Admin: 01/25/22 08:40 Dose: Not Given Documented By: WILNER Non-Admin Reason: Patient Refused Sodium Chloride (0.9 % Sodium Chloride Flush 3 Ml Syringe) 3 ml IVFLUSH QSHIFT [facility] Last Admin: 01/25/22 08:39 Dose: Not Given Documented By: WILNER Non-Admin Reason: No Access Labs CBC & Chem 7: 01/16/22 05:35 01/23/22 05:51 Labs: Laboratory Results - last 24 hr 01/24/22 01/24/22 01/24/22 10:54 15:19 19:35 POC Glucose 155 H 139 H 207 H 01/25/22 07:17 POC Glucose 230 H Assessment and Plan (1) Schizo affective schizophrenia: Status: Acute (2) Pulmonary hypertension: Status: Acute Plan 61yo M shelter resident with schizophrenia, DM2, possible COPD/asthma [not formally diagnosed] p/w hypoxia + dyspnea, found to have severe pulmonary HTN/R-sided HF pulmonary HTN R-sided HF - started on sildenafil by Pulmonology - PO furosemide - outpt f/u with Pulm with consideration of R-sided cath COPD/asthma, provisional diagnosis - outpt PFTs - continue nebs - off steroids -completed doxy DM2 - basal/bolus insulin - sitagliptin, metformin schizoaffective disorder - no behavioral issues at this time - continue VPA, haloperidol - seen by psych, added prn meds HLD - continue statin GERD - continue prilosec VTE ppx - LMWH dispo - cannot go back to Shelter, plan to dc to LTC, HCP invoked, awaiting bed. Need for inpatient stay: safe dispo to LTC when bed available Quality Stroke Does the patient have a stroke diagnosis?: No VTE Prior VTE?: No VTE Risk Level:: Medical - moderate - high VTE Device Contraindication: Treatment Not Indicated VTE Drug Contraindication: N/A - Med Ordered
[2022-01-25] MEDS: metFORMIN HCl 500 MG TABLET PO (18:10)
[2022-01-25] MEDS: Furosemide 40 MG TABLET PO (18:10)
[2022-01-25] MEDS: Divalproex Sodium ER 250 MG TAB.ER.24H PO (18:10)
[2022-01-25 20:17] VITALS: BP 116/66; PULSE 75; RESP 18; TEMP 36.5; O2SAT 95
[2022-01-25 20:20] LABS: Glucose, Whole Blood 189 mg/dL (60-115)
[2022-01-25] MEDS: Enoxaparin Sodium 40 MG/0.4 ML SYRINGE SUBCUT (20:25)
[2022-01-25] MEDS: OLANZapine ODT 10 MG TAB.RAPDIS 5 MG TRANSLINGU (20:26)
[2022-01-25] MEDS: Melatonin 3 MG TABLET 6 MG PO (20:26)
[2022-01-25] MEDS: Sildenafil Citrate 20 MG TABLET PO (20:26)
[2022-01-25] MEDS: Ferrous Sulfate 324 MG TABLET.DR PO (20:26)
[2022-01-25] MEDS: Insulin Glargine,Hum.rec.anlog 100 UNIT/ML 10 ML VIAL 10 UNIT SUBCUT (20:27)
[2022-01-25 23:35] VITALS: BP 105/65; PULSE 77; RESP 17; TEMP 36.7; O2SAT 96
[2022-01-26 07:05] VITALS: BP 99/56; PULSE 51; RESP 15; TEMP 36.3; O2SAT 94
[2022-01-26] MEDS: SITagliptin Phosphate 100 MG TABLET PO (07:08)
[2022-01-26] MEDS: HaloperidoL 5 MG TABLET 10 MG PO ×2 (07:08→20:07)
[2022-01-26] MEDS: Furosemide 40 MG TABLET PO (07:08)
[2022-01-26] MEDS: Divalproex Sodium ER 500 MG TAB.ER.24H PO (07:09)
[2022-01-26 07:12] LABS: Glucose, Whole Blood 137 mg/dL (60-115)
[2022-01-26] MEDS: Ferrous Sulfate 324 MG TABLET.DR PO ×2 (07:12→20:07)
[2022-01-26] MEDS: metFORMIN HCl 500 MG TABLET PO (07:12)
[2022-01-26] MEDS: Sildenafil Citrate 20 MG TABLET PO ×3 (07:12→20:07)
[2022-01-26] MEDS: Atorvastatin Calcium 40 MG TABLET PO (07:12)
--- NOTE | 2022-01-26 07:55 | P.PNIM_ITS ---
Subjective Subjective Date of Service: 01/26/22 Interval History: f/u on pulm HTN, dyspnea interval history: no new issues, no sob Review of Systems no sob no fever Physical Exam Vital Signs: Vital Signs: Last Vital Signs Temp 97.4 F 01/26/22 07:05 Pulse 51 01/26/22 07:05 Resp 15 01/26/22 07:05 BP 99/56 L 01/26/22 07:05 Pulse Ox 94 01/26/22 07:05 O2 Del Method 01/26/22 07:05 O2 Flow Rate 2 01/25/22 23:35 BMI result Body Mass Index 21.8 Const: Other: General: AO X 2, no acute distress Resp: CTA bilateral CVS: S1,S2,RRR GI: +BS, NT, no distention Skin: No rash Neuro: motor grossly intact Psych: flat affect Objective Data Active Medications Acetaminophen (Acetaminophen 325 Mg Tablet) 650 mg PO Q6H PRN PRN Reason: Pain, Mild (Pain Scale 1-3) Atorvastatin Calcium (Atorvastatin Calcium 40 Mg Tablet) 40 mg PO DAILY [facility] Last Admin: 01/26/22 07:12 Dose: 40 mg Documented By: MANSOOR Dextrose (Dextrose 50 % 25 Gm/50 Ml Syringe) 25 gm IVPUSH Q15M PRN; Protocol PRN Reason: per Hypoglycemia Standing Ord. Divalproex Sodium (Divalproex Sodium Er 250 Mg Tab.Er.24h) 250 mg PO DAILY@1700 [facility] Last Admin: 01/25/22 18:10 Dose: 250 mg Documented By: WILNER Divalproex Sodium (Divalproex Sodium Er 500 Mg Tab.Er.24h) 500 mg PO DAILY [facility] Last Admin: 01/26/22 07:09 Dose: 500 mg Documented By: MANSOOR Enoxaparin Sodium (Enoxaparin Sodium 40 Mg/0.4 Ml Syringe) 40 mg SUBCUT Q24H [facility] Last Admin: 01/25/22 20:25 Dose: 40 mg Documented By: GENIE Ferrous Sulfate (Ferrous Sulfate 324 Mg Tablet.Dr) 324 mg PO BID [facility] Last Admin: 01/26/22 07:12 Dose: 324 mg Documented By: MANSOOR Fluticasone Propionate (Fluticasone Propionate Nasal 16 Gm [place]) 1 spray NOSTRIL-B BID [facility] Last Admin: 01/26/22 07:17 Dose: Not Given Documented By: MANSOOR Non-Admin Reason: Patient Refused Furosemide (Furosemide 40 Mg Tablet) 40 mg PO BID@0900,1800 [facility]; Protocol Last Admin: 01/26/22 07:08 Dose: 40 mg Documented By: MANSOOR Glucose (Glucose Gel 15 Gm Gel..Gram.) 15 gm PO Q15M PRN; Protocol PRN Reason: per Hypoglycemia Standing Ord. Haloperidol (Haloperidol 5 Mg Tablet) 10 mg PO BID [facility] Last Admin: 01/26/22 07:08 Dose: 10 mg Documented By: MANSOOR Insulin Glargine (Insulin Glargine,Hum.Rec.Anlog 100 Unit/Ml 10 Ml Vial) 10 unit SUBCUT BEDTIME [facility] Last Admin: 01/25/22 20:27 Dose: 10 unit Documented By: GENIE Insulin Human Lispro (Insulin Lispro 100 Unit/Ml 3 Ml Vial) 0 unit SUBCUT QIDACHS [facility]; Protocol Last Admin: 01/26/22 07:19 Dose: Not Given Documented By: MANSOOR Non-Admin Reason: No Insulin Coverage Melatonin (Melatonin 3 Mg Tablet) 6 mg PO BEDTIME PRN PRN Reason: Insomnia Last Admin: 01/25/22 20:26 Dose: 6 mg Documented By: GENIE Metformin HCl (Metformin Hcl 500 Mg Tablet) 500 mg PO BIDWM [facility] Last Admin: 01/26/22 07:12 Dose: 500 mg Documented By: MANSOOR Neomycin/Polymyxin/Hydrocortisone (Neomycin/Polymyxin/Hc Otic Melanie 10 Ml Drpbtl) 3 drop EAR-RIGHT QID [facility] Last Admin: 01/26/22 07:16 Dose: Not Given Documented By: MANSOOR Non-Admin Reason: Patient Refused Olanzapine (Olanzapine Odt 10 Mg Tab.Rapdis) 5 mg TRANSLINGU BID PRN PRN Reason: agitation, psychosis Last Admin: 01/25/22 20:26 Dose: 5 mg Documented By: GENIE Omeprazole (Omeprazole 20 Mg Capsule.Dr) 20 mg PO DAILY@0630 [facility] Last Admin: 01/26/22 06:10 Dose: Not Given Documented By: GENIE Non-Admin Reason: Patient Refused Senna (Sennosides 8.6 Mg Tablet) 17.2 mg PO BEDTIME PRN PRN Reason: Constipation Sildenafil Citrate (Sildenafil Citrate 20 Mg Tablet) 20 mg PO TID [facility] Last Admin: 01/26/22 07:12 Dose: 20 mg Documented By: MANSOOR Sitagliptin Phosphate (Sitagliptin Phosphate 100 Mg Tablet) 100 mg PO DAILY [facility] Last Admin: 01/26/22 07:08 Dose: 100 mg Documented By: MANSOOR Sodium Chloride (0.9 % Sodium Chloride Flush 3 Ml Syringe) 3 ml IVFLUSH QSHIFT [facility] Last Admin: 01/26/22 07:14 Dose: Not Given Documented By: MANSOOR Non-Admin Reason: No Access Labs CBC & Chem 7: 01/16/22 05:35 01/23/22 05:51 Labs: Laboratory Results - last 24 hr 01/25/22 01/25/22 01/26/22 07:17 20:15 07:06 POC Glucose 230 H 189 H 137 H Assessment and Plan (1) Pulmonary hypertension: Status: Acute (2) Schizo affective schizophrenia: Status: Acute Plan 61yo M residential resident with schizophrenia, DM2, possible COPD/asthma [not formally diagnosed] p/w hypoxia + dyspnea, found to have severe pulmonary HTN/R-sided HF pulmonary HTN R-sided HF - started on sildenafil by Pulmonology - PO furosemide - outpt f/u with Pulm with consideration of R-sided cath COPD/asthma, provisional diagnosis - outpt PFTs - continue nebs - off steroids -completed doxy DM2 - basal/bolus insulin - sitagliptin, metformin schizoaffective disorder - no behavioral issues at this time - continue VPA, haloperidol - seen by psych, added prn meds HLD - continue statin GERD - continue prilosec VTE ppx - LMWH dispo - cannot go back to [facility], plan to dc to LTC, HCP invoked, awaiting bed. Need for inpatient stay: safe dispo to LTC when bed available Quality Stroke Does the patient have a stroke diagnosis?: No VTE Prior VTE?: No VTE Risk Level:: Medical - moderate - high VTE Device Contraindication: Treatment Not Indicated VTE Drug Contraindication: N/A - Med Ordered
[2022-01-26 11:54] LABS: Glucose, Whole Blood 228 mg/dL (60-115)
[2022-01-26] MEDS: Insulin Lispro 100 UNIT/ML 3 ML VIAL SUBCUT ×2 (12:57→20:05)
[2022-01-26 15:38] VITALS: BP 99/59; PULSE 69; RESP 18; TEMP 37.2; O2SAT 94
--- NOTE | 2022-01-26 15:46 | MHC.CM.PN ---
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 facitlities referred yesterdY NO BED AVAILABIULITY :[facility], [facility], [facility], [facility], [facility], [facility] NO BED AVAIL[facility],,[facility], [facility], [facility], CARE ON ( [place], [facility], [facility], [facility] ) [facility] CCA [facility] [address], [place] [facility] ALL DECLINE NO BED AVAILABLE OTHER REFERRALS WERE ALSO SENT , TODAY LOOKING FOR COVID VACINATED BED WITH BEHAVIORS AND LOCKED UNIT CARE AMTOANGER TO CONTINUE TO [facility]
[2022-01-26 16:00] VITALS: RESP 19
[2022-01-26 16:01] LABS: Glucose, Whole Blood 119 mg/dL (60-115)
[2022-01-26 19:18] VITALS: BP 111/66; PULSE 79; RESP 20; TEMP 36.6; O2SAT 96
[2022-01-26 19:49] LABS: Glucose, Whole Blood 207 mg/dL (60-115)
[2022-01-26] MEDS: Insulin Glargine,Hum.rec.anlog 100 UNIT/ML 10 ML VIAL 10 UNIT SUBCUT (20:06)
[2022-01-27] MEDS: Atorvastatin Calcium 40 MG TABLET PO (07:37)
[2022-01-27] MEDS: Furosemide 40 MG TABLET PO ×2 (07:37→17:12)
[2022-01-27] MEDS: metFORMIN HCl 500 MG TABLET PO ×2 (07:37→17:12)
[2022-01-27] MEDS: Sildenafil Citrate 20 MG TABLET PO (07:37)
[2022-01-27] MEDS: Divalproex Sodium ER 500 MG TAB.ER.24H PO (07:37)
[2022-01-27] MEDS: SITagliptin Phosphate 100 MG TABLET PO (07:37)
[2022-01-27] MEDS: HaloperidoL 5 MG TABLET 10 MG PO (07:38)
[2022-01-27] MEDS: Ferrous Sulfate 324 MG TABLET.DR PO (07:38)
[2022-01-27 07:41] VITALS: BP 115/70; PULSE 60; RESP 18; TEMP 36.9; O2SAT 97
[2022-01-27] MEDS: Insulin Lispro 100 UNIT/ML 3 ML VIAL SUBCUT ×3 (07:43→17:11)
[2022-01-27 07:58] LABS: Glucose, Whole Blood 151 mg/dL (60-115)
--- NOTE | 2022-01-27 08:17 | P.PNIM_ITS ---
Subjective Subjective Date of Service: 01/27/22 Interval History: f/u on pulm HTN, dyspnea interval history: no new issues, no sob, still wanting to go home Review of Systems no sob no fever Physical Exam Vital Signs: Vital Signs: Last Vital Signs Temp 98.4 F 01/27/22 07:41 Pulse 60 01/27/22 07:41 Resp 18 01/27/22 07:41 BP 115/70 01/27/22 07:41 Pulse Ox 97 01/27/22 07:41 O2 Del Method 01/27/22 07:41 O2 Flow Rate 2.0 01/26/22 19:18 BMI result Body Mass Index 21.8 Const: Other: General: AO X 2, no acute distress Resp: CTA bilateral CVS: S1,S2,RRR GI: +BS, NT, no distention Skin: No rash Neuro: motor grossly intact Psych: flat affect Objective Data Active Medications Acetaminophen (Acetaminophen 325 Mg Tablet) 650 mg PO Q6H PRN PRN Reason: Pain, Mild (Pain Scale 1-3) Atorvastatin Calcium (Atorvastatin Calcium 40 Mg Tablet) 40 mg PO DAILY [facility] Last Admin: 01/27/22 07:37 Dose: 40 mg Documented By: MANSOOR Dextrose (Dextrose 50 % 25 Gm/50 Ml Syringe) 25 gm IVPUSH Q15M PRN; Protocol PRN Reason: per Hypoglycemia Standing Ord. Divalproex Sodium (Divalproex Sodium Er 250 Mg Tab.Er.24h) 250 mg PO DAILY@1700 [facility] Last Admin: 01/26/22 17:33 Dose: Not Given Documented By: MANSOOR Non-Admin Reason: Patient Refused Divalproex Sodium (Divalproex Sodium Er 500 Mg Tab.Er.24h) 500 mg PO DAILY [facility] Last Admin: 01/27/22 07:37 Dose: 500 mg Documented By: MANSOOR Enoxaparin Sodium (Enoxaparin Sodium 40 Mg/0.4 Ml Syringe) 40 mg SUBCUT Q24H [facility] Last Admin: 01/26/22 20:10 Dose: Not Given Documented By: ESTELLE Non-Admin Reason: Patient Refused Ferrous Sulfate (Ferrous Sulfate 324 Mg Tablet.) 324 mg PO BID [facility] Last Admin: 01/27/22 07:38 Dose: 324 mg Documented By: MANSOOR Fluticasone Propionate (Fluticasone Propionate Nasal 16 Gm [place]) 1 spray NOSTRIL-B BID [facility] Last Admin: 01/27/22 07:38 Dose: Not Given Documented By: MANSOOR Non-Admin Reason: Patient Refused Furosemide (Furosemide 40 Mg Tablet) 40 mg PO BID@0900,1800 [facility]; Protocol Last Admin: 01/27/22 07:37 Dose: 40 mg Documented By: MANSOOR Glucose (Glucose Gel 15 Gm Gel..Gram.) 15 gm PO Q15M PRN; Protocol PRN Reason: per Hypoglycemia Standing Ord. Haloperidol (Haloperidol 5 Mg Tablet) 10 mg PO BID [facility] Last Admin: 01/27/22 07:38 Dose: 10 mg Documented By: MANSOOR Insulin Glargine (Insulin Glargine,Hum.Rec.Anlog 100 Unit/Ml 10 Ml Vial) 10 unit SUBCUT BEDTIME [facility] Last Admin: 01/26/22 20:06 Dose: 10 unit Documented By: ESTELLE Insulin Human Lispro (Insulin Lispro 100 Unit/Ml 3 Ml Vial) 0 unit SUBCUT QIDACHS [facility]; Protocol Last Admin: 01/27/22 07:43 Dose: 2 unit Documented By: MANSOOR Melatonin (Melatonin 3 Mg Tablet) 6 mg PO BEDTIME PRN PRN Reason: Insomnia Last Admin: 01/25/22 20:26 Dose: 6 mg Documented By: GENIE Metformin HCl (Metformin Hcl 500 Mg Tablet) 500 mg PO BIDWM [facility] Last Admin: 01/27/22 07:37 Dose: 500 mg Documented By: MANSOOR Neomycin/Polymyxin/Hydrocortisone (Neomycin/Polymyxin/Hc Otic Melanie 10 Ml Drpbtl) 3 drop EAR-RIGHT QID [facility] Last Admin: 01/27/22 07:38 Dose: Not Given Documented By: MANSOOR Non-Admin Reason: Patient Refused Olanzapine (Olanzapine Odt 10 Mg Tab.Rapdis) 5 mg TRANSLINGU BID PRN PRN Reason: agitation, psychosis Last Admin: 01/25/22 20:26 Dose: 5 mg Documented By: GENIE Omeprazole (Omeprazole 20 Mg Capsule.Dr) 20 mg PO DAILY@0630 [facility] Last Admin: 01/27/22 06:11 Dose: Not Given Documented By: SETELLE Non-Admin Reason: Patient Refused Senna (Sennosides 8.6 Mg Tablet) 17.2 mg PO BEDTIME PRN PRN Reason: Constipation Sildenafil Citrate (Sildenafil Citrate 20 Mg Tablet) 20 mg PO TID [facility] Last Admin: 01/27/22 07:37 Dose: 20 mg Documented By: MANSOOR Sitagliptin Phosphate (Sitagliptin Phosphate 100 Mg Tablet) 100 mg PO DAILY [facility] Last Admin: 01/27/22 07:37 Dose: 100 mg Documented By: MANSOOR Sodium Chloride (0.9 % Sodium Chloride Flush 3 Ml Syringe) 3 ml IVFLUSH QSHIFT [facility] Last Admin: 01/27/22 07:38 Dose: Not Given Documented By: MANSOOR Non-Admin Reason: No Access Labs CBC & Chem 7: 01/16/22 05:35 01/23/22 05:51 Labs: Laboratory Results - last 24 hr 01/26/22 01/26/22 01/26/22 11:49 15:42 19:21 POC Glucose 228 H 119 H 207 H 01/27/22 07:39 POC Glucose 151 H Assessment and Plan (1) Pulmonary hypertension: Status: Acute (2) Schizo affective schizophrenia: Status: Acute Plan 61yo M alf resident with schizophrenia, DM2, possible COPD/asthma [not formally diagnosed] p/w hypoxia + dyspnea, found to have severe pulmonary HTN/R-sided HF pulmonary HTN R-sided HF - started on sildenafil by Pulmonology - PO furosemide - outpt f/u with Pulm with consideration of R-sided cath COPD/asthma, provisional diagnosis - outpt PFTs - continue nebs - off steroids -completed doxy DM2 - basal/bolus insulin - sitagliptin, metformin schizoaffective disorder - no behavioral issues at this time - continue VPA, haloperidol - seen by psych, added prn meds HLD - continue statin GERD - continue prilosec VTE ppx - LMWH dispo - [facility], plan to dc to LTC, HCP invoked, awaiting bed. Need for inpatient stay: safe dispo to LTC when bed available, despite his insistance, he cannot go back to the alf Quality Stroke Does the patient have a stroke diagnosis?: No VTE Prior VTE?: No VTE Risk Level:: Medical - moderate - high VTE Device Contraindication: Treatment Not Indicated VTE Drug Contraindication: N/A - Med Ordered
[2022-01-27 12:00] VITALS: BP 90/66; PULSE 74; RESP 16; TEMP 36.8; O2SAT 91
[2022-01-27 12:03] LABS: Glucose, Whole Blood 207 mg/dL (60-115)
[2022-01-27 16:00] VITALS: BP 103/61; PULSE 71; RESP 17; TEMP 36.9; O2SAT 92
[2022-01-27 16:32] LABS: Glucose, Whole Blood 211 mg/dL (60-115)
[2022-01-27] MEDS: Divalproex Sodium ER 250 MG TAB.ER.24H PO (17:12)
[2022-01-27 19:36] VITALS: BP 98/60; PULSE 70; RESP 17; TEMP 36.6; O2SAT 98
[2022-01-27 23:59] VITALS: BP 105/58; PULSE 61; RESP 17; TEMP 36.2; O2SAT 92
--- NOTE | 2022-01-28 00:09 | PC.NURSE ---
01/27/22 2200 pt refused all 2200 meds poc and insulin.Wants to go home.lying in bed.States doesn't feel like talking.
[2022-01-28 03:52] VITALS: BP 98/58; PULSE 63; RESP 17; TEMP 36.3; O2SAT 96
[2022-01-28] MEDS: Omeprazole 20 MG CAPSULE.DR PO (06:17)
[2022-01-28] MEDS: Furosemide 40 MG TABLET PO ×2 (07:42→17:44)
[2022-01-28] MEDS: metFORMIN HCl 500 MG TABLET PO ×2 (07:42→17:44)
[2022-01-28] MEDS: SITagliptin Phosphate 100 MG TABLET PO (07:42)
[2022-01-28] MEDS: Insulin Lispro 100 UNIT/ML 3 ML VIAL SUBCUT ×3 (07:42→20:24)
[2022-01-28] MEDS: Ferrous Sulfate 324 MG TABLET.DR PO ×2 (07:42→20:23)
[2022-01-28] MEDS: Atorvastatin Calcium 40 MG TABLET PO (07:42)
[2022-01-28] MEDS: HaloperidoL 5 MG TABLET 10 MG PO ×2 (07:42→20:23)
[2022-01-28] MEDS: Sildenafil Citrate 20 MG TABLET PO ×3 (07:42→20:23)
[2022-01-28] MEDS: Divalproex Sodium ER 500 MG TAB.ER.24H PO (07:42)
[2022-01-28 07:45] LABS: Glucose, Whole Blood 232 mg/dL (60-115)
[2022-01-28 08:00] VITALS: BP 98/66; PULSE 66; RESP 18; TEMP 36.6; O2SAT 98
--- NOTE | 2022-01-28 10:05 | HO.PM.IMPN ---
Subjective Subjective Date of Service: 01/28/22 Interval History: f/u on pulm HTN, dyspnea interval history: no new issues, no respiratory issues Review of Systems no sob no fever Physical Exam Vital Signs: Vital Signs: Last Vital Signs Temp 97.8 F 01/28/22 08:00 Pulse 66 01/28/22 08:00 Resp 18 01/28/22 08:00 BP 98/66 01/28/22 08:00 Pulse Ox 98 01/28/22 08:00 O2 Del Method 01/28/22 08:00 O2 Flow Rate 2 01/28/22 08:00 BMI result Body Mass Index 21.8 Const: Other: General: AO X 2, no acute distress Resp: CTA bilateral CVS: S1,S2,RRR GI: +BS, NT, no distention Skin: No rash Neuro: motor grossly intact Psych: flat affect Objective Data Active Medications Acetaminophen (Acetaminophen 325 Mg Tablet) 650 mg PO Q6H PRN PRN Reason: Pain, Mild (Pain Scale 1-3) Atorvastatin Calcium (Atorvastatin Calcium 40 Mg Tablet) 40 mg PO DAILY [facility] Last Admin: 01/28/22 07:42 Dose: 40 mg Documented By: MANSOOR Dextrose (Dextrose 50 % 25 Gm/50 Ml Syringe) 25 gm IVPUSH Q15M PRN; Protocol PRN Reason: per Hypoglycemia Standing Ord. Divalproex Sodium (Divalproex Sodium Er 250 Mg Tab.Er.24h) 250 mg PO DAILY@1700 [facility] Last Admin: 01/27/22 17:12 Dose: 250 mg Documented By: MANSOOR Divalproex Sodium (Divalproex Sodium Er 500 Mg Tab.Er.24h) 500 mg PO DAILY [facility] Last Admin: 01/28/22 07:42 Dose: 500 mg Documented By: MANSOOR Enoxaparin Sodium (Enoxaparin Sodium 40 Mg/0.4 Ml Syringe) 40 mg SUBCUT Q24H [facility] Last Admin: 01/27/22 20:27 Dose: Not Given Documented By: ESTELLE Non-Admin Reason: Patient Refused Ferrous Sulfate (Ferrous Sulfate 324 Mg Tablet.) 324 mg PO BID [facility] Last Admin: 01/28/22 07:42 Dose: 324 mg Documented By: MANSOOR Fluticasone Propionate (Fluticasone Propionate Nasal 16 Gm [place]) 1 spray NOSTRIL-B BID [facility] Last Admin: 01/28/22 07:43 Dose: Not Given Documented By: MANSOOR Non-Admin Reason: Patient Refused Furosemide (Furosemide 40 Mg Tablet) 40 mg PO BID@0900,1800 [facility]; Protocol Last Admin: 01/28/22 07:42 Dose: 40 mg Documented By: MANSOOR Glucose (Glucose Gel 15 Gm Gel..Gram.) 15 gm PO Q15M PRN; Protocol PRN Reason: per Hypoglycemia Standing Ord. Haloperidol (Haloperidol 5 Mg Tablet) 10 mg PO BID [facility] Last Admin: 01/28/22 07:42 Dose: 10 mg Documented By: MANSOOR Insulin Glargine (Insulin Glargine,Hum.Rec.Anlog 100 Unit/Ml 10 Ml Vial) 10 unit SUBCUT BEDTIME [facility] Last Admin: 01/27/22 20:28 Dose: Not Given Documented By: ESTELLE Non-Admin Reason: Patient Refused Insulin Human Lispro (Insulin Lispro 100 Unit/Ml 3 Ml Vial) 0 unit SUBCUT QIDACHS [facility]; Protocol Last Admin: 01/28/22 07:42 Dose: 4 unit Documented By: MANSOOR Melatonin (Melatonin 3 Mg Tablet) 6 mg PO BEDTIME PRN PRN Reason: Insomnia Last Admin: 01/25/22 20:26 Dose: 6 mg Documented By: GENIE Metformin HCl (Metformin Hcl 500 Mg Tablet) 500 mg PO BIDWM [facility] Last Admin: 01/28/22 07:42 Dose: 500 mg Documented By: MANSOOR Neomycin/Polymyxin/Hydrocortisone (Neomycin/Polymyxin/Hc Otic Melanie 10 Ml Drpbtl) 3 drop EAR-RIGHT QID [facility] Last Admin: 01/28/22 07:43 Dose: Not Given Documented By: MANSOOR Non-Admin Reason: Patient Refused Olanzapine (Olanzapine Odt 10 Mg Tab.Rapdis) 5 mg TRANSLINGU BID PRN PRN Reason: agitation, psychosis Last Admin: 01/25/22 20:26 Dose: 5 mg Documented By: GENIE Omeprazole (Omeprazole 20 Mg Capsule.Dr) 20 mg PO DAILY@0630 [facility] Last Admin: 01/28/22 06:17 Dose: 20 mg Documented By: ESTELLE Senna (Sennosides 8.6 Mg Tablet) 17.2 mg PO BEDTIME PRN PRN Reason: Constipation Sildenafil Citrate (Sildenafil Citrate 20 Mg Tablet) 20 mg PO TID [facility] Last Admin: 01/28/22 07:42 Dose: 20 mg Documented By: MANSOOR Sitagliptin Phosphate (Sitagliptin Phosphate 100 Mg Tablet) 100 mg PO DAILY [facility] Last Admin: 01/28/22 07:42 Dose: 100 mg Documented By: MANSOOR Sodium Chloride (0.9 % Sodium Chloride Flush 3 Ml Syringe) 3 ml IVFLUSH QSHIFT [facility] Last Admin: 01/28/22 07:43 Dose: Not Given Documented By: MANSOOR Non-Admin Reason: No Access Labs CBC & Chem 7: 01/16/22 05:35 01/23/22 05:51 Labs: Laboratory Results - last 24 hr 01/27/22 01/27/22 01/28/22 11:42 16:17 07:37 POC Glucose 207 H 211 H 232 H Assessment and Plan (1) Schizo affective schizophrenia: Status: Acute (2) Pulmonary hypertension: Status: Acute Plan 61yo M assisted resident with schizophrenia, DM2, possible COPD/asthma [not formally diagnosed] p/w hypoxia + dyspnea, found to have severe pulmonary HTN/R-sided HF. Essentially no change today pulmonary HTN R-sided HF - started on sildenafil by Pulmonology - PO furosemide - outpt f/u with Pulm with consideration of R-sided cath COPD/asthma, provisional diagnosis - outpt PFTs - continue nebs - off steroids -completed doxy DM2 - basal/bolus insulin - sitagliptin, metformin schizoaffective disorder - no behavioral issues at this time - continue VPA, haloperidol - seen by psych, added prn meds HLD - continue statin GERD - continue prilosec VTE ppx - LMWH dispo - cannot go back to Alf, plan to dc to LTC, HCP invoked, awaiting bed. out of bed, ambulate Need for inpatient stay: pending safe dispo to LTC when bed available, despite his insistance, he cannot go back to the assisted Quality Stroke Does the patient have a stroke diagnosis?: No VTE Prior VTE?: No VTE Risk Level:: Medical - moderate - high VTE Device Contraindication: Treatment Not Indicated VTE Drug Contraindication: N/A - Med Ordered
[2022-01-28 11:11] LABS: Glucose, Whole Blood 150 mg/dL (60-115)
[2022-01-28 12:00] VITALS: BP 112/66; PULSE 74; RESP 18; TEMP 36.9; O2SAT 96
[2022-01-28 16:00] VITALS: BP 105/56; PULSE 65; RESP 17; TEMP 36.2; O2SAT 99
[2022-01-28 16:37] LABS: Glucose, Whole Blood 201 mg/dL (60-115)
[2022-01-28] MEDS: Divalproex Sodium ER 250 MG TAB.ER.24H PO (17:44)
[2022-01-28 20:00] VITALS: BP 104/71; PULSE 66; RESP 17; TEMP 36.3; O2SAT 98
[2022-01-28] MEDS: Insulin Glargine,Hum.rec.anlog 100 UNIT/ML 10 ML VIAL 10 UNIT SUBCUT (20:23)
[2022-01-28] MEDS: Enoxaparin Sodium 40 MG/0.4 ML SYRINGE SUBCUT (20:24)
[2022-01-28 20:43] LABS: Glucose, Whole Blood 232 mg/dL (60-115)
[2022-01-28 23:27] VITALS: BP 104/60; PULSE 82; RESP 19; TEMP 36.6; O2SAT 91
[2022-01-29 07:11] VITALS: BP 96/65; PULSE 66; RESP 18; TEMP 36.4; O2SAT 91
[2022-01-29 07:18] VITALS: BP 137/88; PULSE 88; RESP 18; TEMP 36.2; O2SAT 92
[2022-01-29 07:35] VITALS: BP 106/38; PULSE 80; RESP 18; TEMP 37.3; O2SAT 97
[2022-01-29 07:40] LABS: Glucose, Whole Blood 167 mg/dL (60-115)
--- NOTE | 2022-01-29 09:41 | HO.PM.IMPN ---
Subjective Subjective Date of Service: 01/29/22 Interval History: f/u on pulm HTN, dyspnea interval history: no new issues, no respiratory issues, frustrated about being in the hospital still. Refused meds this morning Review of Systems no sob no fever Physical Exam Vital Signs: Vital Signs: Last Vital Signs Temp 99.1 F 01/29/22 07:35 Pulse 80 01/29/22 07:35 Resp 18 01/29/22 07:35 BP 106/38 L 01/29/22 07:35 Pulse Ox 97 01/29/22 07:35 O2 Del Method 01/29/22 07:35 O2 Flow Rate 2 01/28/22 20:00 BMI result Body Mass Index 21.8 Const: Other: General: AO X 2, no acute distress Resp: CTA bilateral CVS: S1,S2,RRR GI: +BS, NT, no distention Skin: No rash Neuro: motor grossly intact Psych: flat affect Objective Data Active Medications Acetaminophen (Acetaminophen 325 Mg Tablet) 650 mg PO Q6H PRN PRN Reason: Pain, Mild (Pain Scale 1-3) Atorvastatin Calcium (Atorvastatin Calcium 40 Mg Tablet) 40 mg PO DAILY ON [facility] OF [facility] Last Admin: 01/29/22 08:26 Dose: Not Given Documented By: SHAKEEL Non-Admin Reason: Patient Refused Dextrose (Dextrose 50 % 25 Gm/50 Ml Syringe) 25 gm IVPUSH Q15M PRN; Protocol PRN Reason: per Hypoglycemia Standing Ord. Divalproex Sodium (Divalproex Sodium Er 250 Mg Tab.Er.24h) 250 mg PO DAILY@1700 ON [facility] Last Admin: 01/28/22 17:44 Dose: 250 mg Documented By: MANSOOR Divalproex Sodium (Divalproex Sodium Er 500 Mg Tab.Er.24h) 500 mg PO DAILY ON [facility] Last Admin: 01/29/22 08:26 Dose: Not Given Documented By: SHAKEEL Non-Admin Reason: Patient Refused Enoxaparin Sodium (Enoxaparin Sodium 40 Mg/0.4 Ml Syringe) 40 mg SUBCUT Q24H ON [facility] OF [facility] Last Admin: 01/28/22 20:24 Dose: 40 mg Documented By: JUAN Ferrous Sulfate (Ferrous Sulfate 324 Mg Tablet.Dr) 324 mg PO BID ON [facility] OF [facility] Last Admin: 01/29/22 08:27 Dose: Not Given Documented By: SHAKEEL Non-Admin Reason: Patient Refused Fluticasone Propionate (Fluticasone Propionate Nasal 16 Gm [place]) 1 spray NOSTRIL-B BID ON [facility] OF [facility] Last Admin: 01/29/22 08:27 Dose: Not Given Documented By: SHAKEEL Non-Admin Reason: Patient Refused Furosemide (Furosemide 40 Mg Tablet) 40 mg PO BID@0900,1800 ON [facility]; Protocol Last Admin: 01/29/22 08:27 Dose: Not Given Documented By: SHAKEEL Non-Admin Reason: Patient Refused Glucose (Glucose Gel 15 Gm Gel..Gram.) 15 gm PO Q15M PRN; Protocol PRN Reason: per Hypoglycemia Standing Ord. Haloperidol (Haloperidol 5 Mg Tablet) 10 mg PO BID ON [facility] Last Admin: 01/29/22 08:27 Dose: Not Given Documented By: SHAKEEL Non-Admin Reason: Patient Refused Insulin Glargine (Insulin Glargine,Hum.Rec.Anlog 100 Unit/Ml 10 Ml Vial) 10 unit SUBCUT BEDTIME ON [facility] OF [facility] Last Admin: 01/28/22 20:23 Dose: 10 unit Documented By: JUAN Insulin Human Lispro (Insulin Lispro 100 Unit/Ml 3 Ml Vial) 0 unit SUBCUT QIDACHS ON [facility] OF [facility]; Protocol Last Admin: 01/29/22 08:26 Dose: Not Given Documented By: SHAKEEL Non-Admin Reason: Patient Refused Melatonin (Melatonin 3 Mg Tablet) 6 mg PO BEDTIME PRN PRN Reason: Insomnia Last Admin: 01/25/22 20:26 Dose: 6 mg Documented By: GENIE Metformin HCl (Metformin Hcl 500 Mg Tablet) 500 mg PO BIDWM ON [facility] OF [facility] Last Admin: 01/29/22 08:26 Dose: Not Given Documented By: SHAKEEL Non-Admin Reason: Patient Refused Neomycin/Polymyxin/Hydrocortisone (Neomycin/Polymyxin/Hc Otic Melanie 10 Ml Drpbtl) 3 drop EAR-RIGHT QID ON [facility] Last Admin: 01/29/22 08:27 Dose: Not Given Documented By: SHAKEEL Non-Admin Reason: Patient Refused Olanzapine (Olanzapine Odt 10 Mg Tab.Rapdis) 5 mg TRANSLINGU BID PRN PRN Reason: agitation, psychosis Last Admin: 01/25/22 20:26 Dose: 5 mg Documented By: GENIE Omeprazole (Omeprazole 20 Mg Capsule.Dr) 20 mg PO DAILY@0630 ON [facility] Last Admin: 01/29/22 05:56 Dose: Not Given Documented By: JUAN Non-Admin Reason: Patient Refused Senna (Sennosides 8.6 Mg Tablet) 17.2 mg PO BEDTIME PRN PRN Reason: Constipation Sildenafil Citrate (Sildenafil Citrate 20 Mg Tablet) 20 mg PO TID ON [facility] OF [facility] Last Admin: 01/29/22 08:27 Dose: Not Given Documented By: SHAKEEL Non-Admin Reason: Patient Refused Sitagliptin Phosphate (Sitagliptin Phosphate 100 Mg Tablet) 100 mg PO DAILY ON [facility] Last Admin: 01/29/22 08:27 Dose: Not Given Documented By: SHAKEEL Non-Admin Reason: Patient Refused Sodium Chloride (0.9 % Sodium Chloride Flush 3 Ml Syringe) 3 ml IVFLUSH QSHIFT ON LICENSE OF [facility] Last Admin: 01/29/22 08:26 Dose: Not Given Documented By: SHAKEEL Non-Admin Reason: No Access Labs CBC & Chem 7: 01/16/22 05:35 01/23/22 05:51 Labs: Laboratory Results - last 24 hr 01/28/22 01/28/22 01/28/22 11:00 16:26 20:18 POC Glucose 150 H 201 H 232 H 01/29/22 07:09 POC Glucose 167 H Assessment and Plan (1) Schizo affective schizophrenia: Status: Acute (2) Pulmonary hypertension: Status: Acute Plan 61yo M [facility]dc resident with schizophrenia, DM2, possible COPD/asthma [not formally diagnosed] p/w hypoxia + dyspnea, found to have severe pulmonary HTN/R-sided HF. Essentially no change today pulmonary HTN R-sided HF - started on sildenafil by Pulmonology - PO furosemide - outpt f/u with Pulm with consideration of R-sided cath COPD/asthma, provisional diagnosis - outpt PFTs - continue nebs - off steroids -completed doxy DM2 - basal/bolus insulin - sitagliptin, metformin schizoaffective disorder - no behavioral issues at this time - continue VPA, haloperidol - seen by psych, added prn meds HLD - continue statin GERD - continue prilosec VTE ppx - LMWH dispo - cannot go back to [facility], plan to dc to LTC, HCP invoked, awaiting bed. out of bed, ambulate Need for inpatient stay: pending safe dispo to LTC when bed available, despite his insistance, he cannot go back to the [facility] order to be used if refuses meds Quality Stroke Does the patient have a stroke diagnosis?: No VTE Prior VTE?: No VTE Risk Level:: Medical - moderate - high VTE Device Contraindication: Treatment Not Indicated VTE Drug Contraindication: N/A - Med Ordered
[2022-01-29 11:57] LABS: Glucose, Whole Blood 198 mg/dL (60-115)
[2022-01-29] MEDS: Insulin Lispro 100 UNIT/ML 3 ML VIAL SUBCUT ×2 (12:22→20:06)
--- NOTE | 2022-01-29 14:35 | MHC.CM.PN ---
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
[2022-01-29 16:27] LABS: Glucose, Whole Blood 166 mg/dL (60-115)
--- NOTE | 2022-01-29 16:30 | MHC.CM.PN ---
[employer] social work case manager note electronic medical record reviewed along with case discussed with [facility] on patient care rounds, follow up with the following previous referred technician terminal and repeater care facilites, ; ariadna wolf, med guido everrett3, sima saul, nicole estes, russell guzman worcestor , french talley and [facility]
[2022-01-29 19:39] VITALS: BP 120/64; PULSE 87; RESP 18; TEMP 36.9; O2SAT 97
[2022-01-29 19:55] LABS: Glucose, Whole Blood 183 mg/dL (60-115)
[2022-01-29] MEDS: Enoxaparin Sodium 40 MG/0.4 ML SYRINGE SUBCUT (19:55)
[2022-01-29] MEDS: Melatonin 3 MG TABLET 6 MG PO (19:55)
[2022-01-29] MEDS: HaloperidoL 5 MG TABLET 10 MG PO (19:55)
[2022-01-29] MEDS: Ferrous Sulfate 324 MG TABLET.DR PO (19:56)
[2022-01-29] MEDS: Sildenafil Citrate 20 MG TABLET PO (19:56)
[2022-01-29] MEDS: Insulin Glargine,Hum.rec.anlog 100 UNIT/ML 10 ML VIAL 10 UNIT SUBCUT (20:05)
[2022-01-29 23:39] VITALS: BP 107/57; PULSE 72; RESP 18; TEMP 36.2; O2SAT 96
[2022-01-30 04:00] VITALS: BP 110/62; PULSE 70; RESP 18; TEMP 36.3; O2SAT 97
[2022-01-30 07:36] LABS: Glucose, Whole Blood 156 mg/dL (60-115)
[2022-01-30] MEDS: Ferrous Sulfate 324 MG TABLET.DR PO ×2 (08:46→21:01)
[2022-01-30] MEDS: Divalproex Sodium ER 500 MG TAB.ER.24H PO (08:46)
[2022-01-30] MEDS: Furosemide 40 MG TABLET PO ×2 (08:47→17:04)
[2022-01-30] MEDS: Atorvastatin Calcium 40 MG TABLET PO (08:47)
[2022-01-30] MEDS: Sildenafil Citrate 20 MG TABLET PO ×3 (08:47→21:01)
[2022-01-30] MEDS: SITagliptin Phosphate 100 MG TABLET PO (08:47)
[2022-01-30] MEDS: metFORMIN HCl 500 MG TABLET PO ×2 (08:47→17:04)
[2022-01-30] MEDS: HaloperidoL 5 MG TABLET 10 MG PO ×2 (08:50→21:01)
--- NOTE | 2022-01-30 09:24 | HO.PM.IMPN ---
Subjective Subjective Date of Service: 01/30/22 Interval History: f/u on pulm HTN, dyspnea interval history: no new issues, no respiratory issues, frustrated about being in the hospital still. Refusing meds today, but finally agreed Review of Systems no sob no fever Physical Exam Vital Signs: Vital Signs: Last Vital Signs Temp 97.3 F 01/30/22 04:00 Pulse 70 01/30/22 04:00 Resp 18 01/30/22 04:00 BP 110/62 01/30/22 04:00 Pulse Ox 97 01/30/22 04:00 O2 Del Method 01/30/22 04:00 O2 Flow Rate 2 01/30/22 04:00 BMI result Body Mass Index 21.8 Const: Other: General: AO X 2, no acute distress Resp: CTA bilateral CVS: S1,S2,RRR GI: +BS, NT, no distention Skin: No rash Neuro: motor grossly intact Psych: flat affect Objective Data Active Medications Acetaminophen (Acetaminophen 325 Mg Tablet) 650 mg PO Q6H PRN PRN Reason: Pain, Mild (Pain Scale 1-3) Atorvastatin Calcium (Atorvastatin Calcium 40 Mg Tablet) 40 mg PO DAILY [facility] Last Admin: 01/30/22 08:47 Dose: 40 mg Documented By: SHAKEEL Dextrose (Dextrose 50 % 25 Gm/50 Ml Syringe) 25 gm IVPUSH Q15M PRN; Protocol PRN Reason: per Hypoglycemia Standing Ord. Divalproex Sodium (Divalproex Sodium Er 250 Mg Tab.Er.24h) 250 mg PO DAILY@1700 [facility] Last Admin: 01/29/22 17:02 Dose: Not Given Documented By: SHAKEEL Non-Admin Reason: Patient Refused Divalproex Sodium (Divalproex Sodium Er 500 Mg Tab.Er.24h) 500 mg PO DAILY [facility] Last Admin: 01/30/22 08:46 Dose: 500 mg Documented By: SHAKEEL Enoxaparin Sodium (Enoxaparin Sodium 40 Mg/0.4 Ml Syringe) 40 mg SUBCUT Q24H [facility] Last Admin: 01/29/22 19:55 Dose: 40 mg Documented By: ANA Ferrous Sulfate (Ferrous Sulfate 324 Mg Tablet.Dr) 324 mg PO BID [facility] Last Admin: 01/30/22 08:46 Dose: 324 mg Documented By: SHAKEEL Fluticasone Propionate (Fluticasone Propionate Nasal 16 Gm [place]) 1 spray NOSTRIL-B BID [facility] Last Admin: 01/30/22 07:52 Dose: Not Given Documented By: SHAKEEL Non-Admin Reason: Patient Refused Furosemide (Furosemide 40 Mg Tablet) 40 mg PO BID@0900,1800 [facility]; Protocol Last Admin: 01/30/22 08:47 Dose: 40 mg Documented By: SHAKEEL Glucose (Glucose Gel 15 Gm Gel..Gram.) 15 gm PO Q15M PRN; Protocol PRN Reason: per Hypoglycemia Standing Ord. Haloperidol (Haloperidol 5 Mg Tablet) 10 mg PO BID [facility] Last Admin: 01/30/22 08:50 Dose: 10 mg Documented By: SHAKEEL Insulin Glargine (Insulin Glargine,Hum.Rec.Anlog 100 Unit/Ml 10 Ml Vial) 10 unit SUBCUT BEDTIME [facility] Last Admin: 01/29/22 20:05 Dose: 10 unit Documented By: ANA Insulin Human Lispro (Insulin Lispro 100 Unit/Ml 3 Ml Vial) 0 unit SUBCUT QIDACHS [facility]; Protocol Last Admin: 01/30/22 07:51 Dose: Not Given Documented By: SHAKEEL Non-Admin Reason: Patient Refused Melatonin (Melatonin 3 Mg Tablet) 6 mg PO BEDTIME PRN PRN Reason: Insomnia Last Admin: 01/29/22 19:55 Dose: 6 mg Documented By: ANA Metformin HCl (Metformin Hcl 500 Mg Tablet) 500 mg PO BIDWM [facility] Last Admin: 01/30/22 08:47 Dose: 500 mg Documented By: SHAKEEL Neomycin/Polymyxin/Hydrocortisone (Neomycin/Polymyxin/Hc Otic Melanie 10 Ml Drpbtl) 3 drop EAR-RIGHT QID [facility] Last Admin: 01/30/22 07:52 Dose: Not Given Documented By: SHAKEEL Non-Admin Reason: Patient Refused Olanzapine (Olanzapine Odt 10 Mg Tab.Rapdis) 5 mg TRANSLINGU BID PRN PRN Reason: agitation, psychosis Last Admin: 01/25/22 20:26 Dose: 5 mg Documented By: GENIE Omeprazole (Omeprazole 20 Mg Capsule.Dr) 20 mg PO DAILY@0630 [facility] Last Admin: 01/30/22 05:20 Dose: Not Given Documented By: HO.CASTILM Non-Admin Reason: Patient Refused Senna (Sennosides 8.6 Mg Tablet) 17.2 mg PO BEDTIME PRN PRN Reason: Constipation Sildenafil Citrate (Sildenafil Citrate 20 Mg Tablet) 20 mg PO TID [facility] Last Admin: 01/30/22 08:47 Dose: 20 mg Documented By: SHAKEEL Sitagliptin Phosphate (Sitagliptin Phosphate 100 Mg Tablet) 100 mg PO DAILY [facility] Last Admin: 01/30/22 08:47 Dose: 100 mg Documented By: SHAKEEL Sodium Chloride (0.9 % Sodium Chloride Flush 3 Ml Syringe) 3 ml IVFLUSH QSHIFT [facility] Last Admin: 01/30/22 07:43 Dose: Not Given Documented By: SHAKEEL Non-Admin Reason: No Access Labs CBC & Chem 7: 01/16/22 05:35 01/23/22 05:51 Labs: Laboratory Results - last 24 hr 01/29/22 01/29/22 01/29/22 11:13 15:37 19:42 POC Glucose 198 H 166 H 183 H 01/30/22 07:32 POC Glucose 156 H Assessment and Plan (1) Schizo affective schizophrenia: Status: Acute (2) Pulmonary hypertension: Status: Acute Plan 61yo M [facility] resident with schizophrenia, DM2, possible COPD/asthma [not formally diagnosed] p/w hypoxia + dyspnea, found to have severe pulmonary HTN/R-sided HF. Essentially no change today pulmonary HTN R-sided HF - started on sildenafil by Pulmonology - PO furosemide - outpt f/u with Pulm with consideration of R-sided cath COPD/asthma, provisional diagnosis - outpt PFTs - continue nebs - off steroids -completed doxy DM2 - basal/bolus insulin - sitagliptin, metformin schizoaffective disorder - no behavioral issues at this time - continue VPA, haloperidol - seen by psych, added prn meds HLD - continue statin GERD - continue prilosec VTE ppx - LMWH dispo - [facility] back to [facility], plan to dc to LTC, HCP invoked, awaiting bed. out of bed, ambulate Need for inpatient stay: pending safe dispo to LTC when bed available, despite his insistance, he cannot go back to the [facility] order to be used if refuses meds Quality Stroke Does the patient have a stroke diagnosis?: No VTE Prior VTE?: No VTE Risk Level:: Medical - moderate - high VTE Device Contraindication: Treatment Not Indicated VTE Drug Contraindication: N/A - Med Ordered
[2022-01-30 12:11] LABS: Glucose, Whole Blood 178 mg/dL (60-115)
[2022-01-30 15:19] VITALS: BP 100/65; PULSE 86; RESP 18; TEMP 36.6; O2SAT 98
[2022-01-30 15:35] LABS: Glucose, Whole Blood 152 mg/dL (60-115)
--- NOTE | 2022-01-30 15:45 | MHC.CM.PN ---
nurse top case assembler [facility] [place] [facility] [facility] ;[facility],
[2022-01-30] MEDS: Divalproex Sodium ER 250 MG TAB.ER.24H PO (17:04)
[2022-01-30 20:52] LABS: Glucose, Whole Blood 179 mg/dL (60-115)
[2022-01-30 20:56] VITALS: BP 108/67; PULSE 72; RESP 18; TEMP 36.2; O2SAT 95
[2022-01-30] MEDS: Insulin Lispro 100 UNIT/ML 3 ML VIAL SUBCUT (20:56)
[2022-01-30] MEDS: Insulin Glargine,Hum.rec.anlog 100 UNIT/ML 10 ML VIAL 10 UNIT SUBCUT (20:58)
[2022-01-30] MEDS: Enoxaparin Sodium 40 MG/0.4 ML SYRINGE SUBCUT (20:59)
[2022-01-30] MEDS: Melatonin 3 MG TABLET 6 MG PO (21:02)
[2022-01-31] MEDS: Sildenafil Citrate 20 MG TABLET PO ×3 (07:40→19:46)
[2022-01-31] MEDS: Furosemide 40 MG TABLET PO ×2 (07:41→16:38)
[2022-01-31] MEDS: Ferrous Sulfate 324 MG TABLET.DR PO ×2 (07:41→19:46)
[2022-01-31] MEDS: SITagliptin Phosphate 100 MG TABLET PO (07:41)
[2022-01-31] MEDS: HaloperidoL 5 MG TABLET 10 MG PO ×2 (07:41→19:46)
[2022-01-31] MEDS: Divalproex Sodium ER 500 MG TAB.ER.24H PO (07:41)
[2022-01-31] MEDS: metFORMIN HCl 500 MG TABLET PO ×2 (07:41→16:38)
[2022-01-31] MEDS: Atorvastatin Calcium 40 MG TABLET PO (07:41)
[2022-01-31 07:43] VITALS: BP 98/67; PULSE 76; RESP 18; TEMP 36.6; O2SAT 91
[2022-01-31] MEDS: Insulin Lispro 100 UNIT/ML 3 ML VIAL SUBCUT ×3 (07:50→19:55)
[2022-01-31 08:02] LABS: Glucose, Whole Blood 173 mg/dL (60-115)
[2022-01-31 11:36] VITALS: BP 96/65; PULSE 71; RESP 18; TEMP 36.3; O2SAT 93
--- NOTE | 2022-01-31 11:51 | MHC.CM.PN ---
EMR REVIEWED, CM DISCUSSED CASE W/CM DIRECOTOR AFTER DISCUSSING W/ATTY, WILL NEED PSYCHIATRY TO COMPLETE AN ADDITIONAL CLINICIANS AFFIDAVIT FOR CLARIFICATION OF HALDOL MED TX PLAN ON OSCAR HIS HALDOL WAS INCREASED TO 10MG BID FROM 5MG BID BY OUTSIDE PROVIDER. MARIANELA GALLEGOS KINDERGARTEN TUTOR COMPLETED CONSULT ON PT 01/19 AND CM WILL CONTACT VIA [facility] SO SHE IS AWARE WHEN SHE RETURNS TH02/01. CM WILL PLACE REFERRAL TO [facility] IT IS NOT ON SNF REFERRAL AND THEY HAVE A LOCKED UNIT. CM WILL CONT TO FOLLOW D/C NEEDS.
--- NOTE | 2022-01-31 14:42 | P.PNIM_ITS ---
Subjective Subjective Date of Service: 01/31/22 Interval History: Seen and examined this awaiting placement No overnight events No specific complaints this morning. Denies any shortness of breath Review of Systems Review of Systems: Yes all other systems are reviewed and are negative Constitutional Constitutional: Denies chills and Denies fever(s) Cardiovascular Cardiovascular: Denies chest pain and Denies dyspnea Respiratory Respiratory: Denies dyspnea Physical Exam Vital Signs: Vital Signs: Last Vital Signs Temp 97.4 F 01/31/22 11:36 Pulse 71 01/31/22 11:36 Resp 18 01/31/22 11:36 BP 96/65 01/31/22 11:36 Pulse Ox 93 01/31/22 11:36 O2 Del Method 01/31/22 11:36 O2 Flow Rate 2.0 01/30/22 15:19 BMI result Body Mass Index 21.8 Const: General: comfortable, no acute distress, alert and awake Resp: Effort & Inspection: normal respiratory effort and able to speak in complete sentences Cardio: Rate: regular rate Heart sounds: S1 normal heart sound present and S2 normal heart sound present GI: Palpation (GI): Soft to palpation and nontender Extrem: General: Yes no pedal edema Objective Data Active Medications Acetaminophen (Acetaminophen 325 Mg Tablet) 650 mg PO Q6H PRN PRN Reason: Pain, Mild (Pain Scale 1-3) Atorvastatin Calcium (Atorvastatin Calcium 40 Mg Tablet) 40 mg PO DAILY [facility] Last Admin: 01/31/22 07:41 Dose: 40 mg Documented By: MANSOOR Dextrose (Dextrose 50 % 25 Gm/50 Ml Syringe) 25 gm IVPUSH Q15M PRN; Protocol PRN Reason: per Hypoglycemia Standing Ord. Divalproex Sodium (Divalproex Sodium Er 250 Mg Tab.Er.24h) 250 mg PO DAILY@1700 [facility] Last Admin: 01/30/22 17:04 Dose: 250 mg Documented By: SHAKEEL Divalproex Sodium (Divalproex Sodium Er 500 Mg Tab.Er.24h) 500 mg PO DAILY [facility] Last Admin: 01/31/22 07:41 Dose: 500 mg Documented By: MANSOOR Enoxaparin Sodium (Enoxaparin Sodium 40 Mg/0.4 Ml Syringe) 40 mg SUBCUT Q24H [facility] Last Admin: 01/30/22 20:59 Dose: 40 mg Documented By: YUDI Ferrous Sulfate (Ferrous Sulfate 324 Mg Tablet.Dr) 324 mg PO BID [facility] Last Admin: 01/31/22 07:41 Dose: 324 mg Documented By: MANSOOR Fluticasone Propionate (Fluticasone Propionate Nasal 16 Gm [place]) 1 spray NOSTRIL-B BID [facility] Last Admin: 01/31/22 07:41 Dose: Not Given Documented By: MANSOOR Non-Admin Reason: Patient Refused Furosemide (Furosemide 40 Mg Tablet) 40 mg PO BID@0900,1800 [facility]; Protocol Last Admin: 01/31/22 07:41 Dose: 40 mg Documented By: MANSOOR Glucose (Glucose Gel 15 Gm Gel..Gram.) 15 gm PO Q15M PRN; Protocol PRN Reason: per Hypoglycemia Standing Ord. Haloperidol (Haloperidol 5 Mg Tablet) 10 mg PO BID [facility] Last Admin: 01/31/22 07:41 Dose: 10 mg Documented By: MANSOOR Insulin Glargine (Insulin Glargine,Hum.Rec.Anlog 100 Unit/Ml 10 Ml Vial) 10 unit SUBCUT BEDTIME [facility] Last Admin: 01/30/22 20:58 Dose: 10 unit Documented By: YUDI Insulin Human Lispro (Insulin Lispro 100 Unit/Ml 3 Ml Vial) 0 unit SUBCUT QIDACHS [facility]; Protocol Last Admin: 01/31/22 11:35 Dose: Not Given Documented By: MANSOOR Non-Admin Reason: Patient Refused Melatonin (Melatonin 3 Mg Tablet) 6 mg PO BEDTIME PRN PRN Reason: Insomnia Last Admin: 01/30/22 21:02 Dose: 6 mg Documented By: YUDI Metformin HCl (Metformin Hcl 500 Mg Tablet) 500 mg PO BIDWM [facility] Last Admin: 01/31/22 07:41 Dose: 500 mg Documented By: MANSOOR Neomycin/Polymyxin/Hydrocortisone (Neomycin/Polymyxin/Hc Otic Melanie 10 Ml Drpbtl) 3 drop EAR-RIGHT QID [facility] Last Admin: 01/31/22 11:36 Dose: Not Given Documented By: MANSOOR Non-Admin Reason: Patient Refused Olanzapine (Olanzapine Odt 10 Mg Tab.Rapdis) 5 mg TRANSLINGU BID PRN PRN Reason: agitation, psychosis Last Admin: 01/25/22 20:26 Dose: 5 mg Documented By: GENIE Omeprazole (Omeprazole 20 Mg Capsule.) 20 mg PO DAILY@0630 [facility] Last Admin: 01/31/22 06:10 Dose: Not Given Documented By: YUDI Non-Admin Reason: Patient Refused Senna (Sennosides 8.6 Mg Tablet) 17.2 mg PO BEDTIME PRN PRN Reason: Constipation Sildenafil Citrate (Sildenafil Citrate 20 Mg Tablet) 20 mg PO TID [facility] Last Admin: 01/31/22 07:40 Dose: 20 mg Documented By: MANSOOR Sitagliptin Phosphate (Sitagliptin Phosphate 100 Mg Tablet) 100 mg PO DAILY [facility] Last Admin: 01/31/22 07:41 Dose: 100 mg Documented By: MANSOOR Sodium Chloride (0.9 % Sodium Chloride Flush 3 Ml Syringe) 3 ml IVFLUSH QSHIFT [facility] Last Admin: 01/31/22 07:57 Dose: Not Given Documented By: MANSOOR Non-Admin Reason: No Access Labs CBC & Chem 7: 01/16/22 05:35 01/23/22 05:51 Labs: Laboratory Results - last 24 hr 01/30/22 01/30/22 01/31/22 15:22 20:46 07:42 POC Glucose 152 H 179 H 173 H Assessment and Plan (1) Schizo affective schizophrenia: Status: Acute (2) Pulmonary hypertension: Status: Acute Plan 61yo M residential resident with schizophrenia, DM2, possible COPD/asthma [not formally diagnosed] p/w hypoxia + dyspnea, found to have severe pulmonary HTN/R-sided HF. Essentially no change today pulmonary HTN R-sided HF - started on sildenafil by Pulmonology - PO furosemide - outpt f/u with Pulm with consideration of R-sided cath COPD/asthma, provisional diagnosis - outpt PFTs - continue nebs - off steroids -completed doxy DM2 - basal/bolus insulin - sitagliptin, metformin schizoaffective disorder - no behavioral issues at this time - continue VPA, haloperidol - seen by psych, added prn meds HLD - continue statin GERD - continue prilosec VTE ppx - LMWH dispo - [facility] back to [facility], plan to dc to LTC, HCP invoked, awaiting bed. out of bed, ambulate Attending-Dr. Pride Need for inpatient stay: pending safe dispo to LTC when bed available, despite his insistance, [facility] Quality Stroke Does the patient have a stroke diagnosis?: No VTE Prior VTE?: No VTE Risk Level:: Medical - moderate - high VTE Device Contraindication: Treatment Not Indicated VTE Drug Contraindication: N/A - Med Ordered
[2022-01-31 15:36] VITALS: BP 109/61; PULSE 95; RESP 18; TEMP 36.9; O2SAT 100
[2022-01-31] MEDS: Divalproex Sodium ER 250 MG TAB.ER.24H PO (16:38)
[2022-01-31 17:58] LABS: Glucose, Whole Blood 222 mg/dL (60-115)
[2022-01-31 19:21] VITALS: BP 110/68; PULSE 109; RESP 18; TEMP 36.9; O2SAT 95
[2022-01-31 19:35] LABS: Glucose, Whole Blood 170 mg/dL (60-115)
[2022-01-31] MEDS: Melatonin 3 MG TABLET 6 MG PO (19:50)
[2022-01-31] MEDS: Insulin Glargine,Hum.rec.anlog 100 UNIT/ML 10 ML VIAL 10 UNIT SUBCUT (19:54)
[2022-01-31 23:37] VITALS: PULSE 72; RESP 18; TEMP 36.6; O2SAT 92
--- NOTE | 2022-02-01 09:44 | PC.NURSE ---
pt refusing all medications, vitals and POC this morning, stating he wants to be discharged and wants to be left alone. Waleska Hernandez made aware. Will continue to monitor.
[2022-02-01] MEDS: Furosemide 40 MG TABLET PO (11:15)
[2022-02-01] MEDS: HaloperidoL 5 MG TABLET 10 MG PO ×2 (11:15→21:45)
[2022-02-01] MEDS: Divalproex Sodium ER 500 MG TAB.ER.24H PO (11:16)
[2022-02-01] MEDS: Sildenafil Citrate 20 MG TABLET PO ×2 (11:16→21:45)
[2022-02-01] MEDS: metFORMIN HCl 500 MG TABLET PO (11:16)
[2022-02-01] MEDS: Atorvastatin Calcium 40 MG TABLET PO (11:16)
[2022-02-01] MEDS: SITagliptin Phosphate 100 MG TABLET PO (11:16)
[2022-02-01] MEDS: Ferrous Sulfate 324 MG TABLET.DR PO ×2 (11:16→22:11)
[2022-02-01 11:39] VITALS: BP 118/70; PULSE 78; RESP 18; TEMP 36.7; O2SAT 91
[2022-02-01 11:43] LABS: Glucose, Whole Blood 298 mg/dL (60-115)
[2022-02-01] MEDS: Insulin Lispro 100 UNIT/ML 3 ML VIAL SUBCUT ×2 (11:51→21:45)
--- NOTE | 2022-02-01 12:13 | P.PNIM_ITS ---
Subjective Subjective Date of Service: 02/01/22 Interval History: Seen and examined this morning Refused meds this morning, not allowing vital signs or POC checks wants to leave the hospital otherwise no specific complaints. declined exam Physical Exam Vital Signs: Vital Signs: Last Vital Signs Temp 98.0 F 02/01/22 11:39 Pulse 78 02/01/22 11:39 Resp 18 02/01/22 11:39 BP 118/70 02/01/22 11:39 Pulse Ox 91 L 02/01/22 11:39 O2 Del Method 02/01/22 11:39 O2 Flow Rate 2.0 01/30/22 15:19 BMI result Body Mass Index 21.8 Objective Data Active Medications Acetaminophen (Acetaminophen 325 Mg Tablet) 650 mg PO Q6H PRN PRN Reason: Pain, Mild (Pain Scale 1-3) Atorvastatin Calcium (Atorvastatin Calcium 40 Mg Tablet) 40 mg PO DAILY [facility] Last Admin: 02/01/22 11:16 Dose: 40 mg Documented By: MARK Dextrose (Dextrose 50 % 25 Gm/50 Ml Syringe) 25 gm IVPUSH Q15M PRN; Protocol PRN Reason: per Hypoglycemia Standing Ord. Divalproex Sodium (Divalproex Sodium Er 250 Mg Tab.Er.24h) 250 mg PO DAILY@1700 [facility] Last Admin: 01/31/22 16:38 Dose: 250 mg Documented By: MANSOOR Divalproex Sodium (Divalproex Sodium Er 500 Mg Tab.Er.24h) 500 mg PO DAILY [facility] Last Admin: 02/01/22 11:16 Dose: 500 mg Documented By: MARK Enoxaparin Sodium (Enoxaparin Sodium 40 Mg/0.4 Ml Syringe) 40 mg SUBCUT Q24H [facility] Last Admin: 01/31/22 19:51 Dose: Not Given Documented By: GENIE Non-Admin Reason: Patient Refused Ferrous Sulfate (Ferrous Sulfate 324 Mg [place].) 324 mg PO BID [facility] Last Admin: 02/01/22 11:16 Dose: 324 mg Documented By: MARK Fluticasone Propionate (Fluticasone Propionate Nasal 16 Gm [place]) 1 spray NOSTRIL-B BID [facility] Last Admin: 02/01/22 09:46 Dose: Not Given Documented By: MARK Non-Admin Reason: Patient Refused Furosemide (Furosemide 40 Mg Tablet) 40 mg PO BID@0900,1800 [facility]; Protocol Last Admin: 02/01/22 11:15 Dose: 40 mg Documented By: MARK Glucose (Glucose Gel 15 Gm Gel..Gram.) 15 gm PO Q15M PRN; Protocol PRN Reason: per Hypoglycemia Standing Ord. Haloperidol (Haloperidol 5 Mg Tablet) 10 mg PO BID [facility] Last Admin: 02/01/22 11:15 Dose: 10 mg Documented By: MARK Insulin Glargine (Insulin Glargine,Hum.Rec.Anlog 100 Unit/Ml 10 Ml Vial) 10 unit SUBCUT BEDTIME [facility] Last Admin: 01/31/22 19:54 Dose: 10 unit Documented By: GENIE Insulin Human Lispro (Insulin Lispro 100 Unit/Ml 3 Ml Vial) 0 unit SUBCUT QIDACHS [facility]; Protocol Last Admin: 02/01/22 11:51 Dose: 6 unit Documented By: MARK Melatonin (Melatonin 3 Mg Tablet) 6 mg PO BEDTIME PRN PRN Reason: Insomnia Last Admin: 01/31/22 19:50 Dose: 6 mg Documented By: GENIE Metformin HCl (Metformin Hcl 500 Mg Tablet) 500 mg PO BIDWM [facility] Last Admin: 02/01/22 11:16 Dose: 500 mg Documented By: MARK Neomycin/Polymyxin/Hydrocortisone (Neomycin/Polymyxin/Hc Otic Melanie 10 Ml Drpbtl) 3 drop EAR-RIGHT QID [facility] Last Admin: 02/01/22 09:46 Dose: Not Given Documented By: MARK Non-Admin Reason: Patient Refused Olanzapine (Olanzapine Odt 10 Mg Tab.Rapdis) 5 mg TRANSLINGU BID PRN PRN Reason: agitation, psychosis Last Admin: 01/25/22 20:26 Dose: 5 mg Documented By: GENIE Omeprazole (Omeprazole 20 Mg Capsule.Dr) 20 mg PO DAILY@0630 [facility] Last Admin: 02/01/22 06:07 Dose: Not Given Documented By: GENIE Non-Admin Reason: Patient Refused Senna (Sennosides 8.6 Mg Tablet) 17.2 mg PO BEDTIME PRN PRN Reason: Constipation Sildenafil Citrate (Sildenafil Citrate 20 Mg Tablet) 20 mg PO TID [facility] Last Admin: 02/01/22 11:16 Dose: 20 mg Documented By: MARK Sitagliptin Phosphate (Sitagliptin Phosphate 100 Mg Tablet) 100 mg PO DAILY [facility] Last Admin: 02/01/22 11:16 Dose: 100 mg Documented By: MARK Sodium Chloride (0.9 % Sodium Chloride Flush 3 Ml Syringe) 3 ml IVFLUSH QSHIFT [facility] Last Admin: 02/01/22 09:46 Dose: Not Given Documented By: MARK Non-Admin Reason: No Access Labs CBC & Chem 7: 01/16/22 05:35 01/23/22 05:51 Labs: Laboratory Results - last 24 hr 01/31/22 01/31/22 02/01/22 16:38 19:22 11:38 POC Glucose 222 H 170 H 298 H Assessment and Plan (1) Schizo affective schizophrenia: Status: Acute Plan 61yo M skilled nursing resident with schizophrenia, DM2, possible COPD/asthma [not formally diagnosed] p/w hypoxia + dyspnea, found to have severe pulmonary HTN/R-sided HF. Essentially no change today pulmonary HTN R-sided HF - started on sildenafil by Pulmonology - PO furosemide - outpt f/u with Pulm with consideration of R-sided cath COPD/asthma, provisional diagnosis - outpt PFTs - continue nebs - off steroids - completed doxy DM2 - basal/bolus insulin - sitagliptin, metformin schizoaffective disorder - no behavioral issues at this time - continue VPA, haloperidol - seen by psych, added prn meds HLD - continue statin GERD - continue prilosec VTE ppx - LMWH dispo - cannot go back to Longterm, plan to dc to LTC, HCP invoked, awaiting bed. out of bed, ambulate Attending-Dr. Pride Need for inpatient stay: pending safe dispo to LTC when bed available, despite his insistance, he cannot go back to the skilled nursing [facility] order to be used if refuses meds Quality Stroke Does the patient have a stroke diagnosis?: No VTE Prior VTE?: No VTE Risk Level:: Medical - moderate - high VTE Device Contraindication: Treatment Not Indicated VTE Drug Contraindication: N/A - Med Ordered
[2022-02-01 15:51] VITALS: BP 96/64; PULSE 74; RESP 18; TEMP 36.4; O2SAT 94
[2022-02-01 16:25] LABS: Glucose, Whole Blood 113 mg/dL (60-115)
[2022-02-01 19:38] VITALS: BP 113/66; PULSE 70; RESP 17; TEMP 36.4; O2SAT 94
[2022-02-01 20:06] LABS: Glucose, Whole Blood 187 mg/dL (60-115)
[2022-02-01] MEDS: Insulin Glargine,Hum.rec.anlog 100 UNIT/ML 10 ML VIAL 10 UNIT SUBCUT (21:46)
[2022-02-01] MEDS: Enoxaparin Sodium 40 MG/0.4 ML SYRINGE SUBCUT (21:47)
[2022-02-02] VITALS: BP 97/66; PULSE 75; RESP 17; TEMP 36.6; O2SAT 96
[2022-02-02 04:00] VITALS: BP 104/57; PULSE 78; RESP 17; TEMP 36.5; O2SAT 94
[2022-02-02 09:19] LABS: Glucose, Whole Blood 181 mg/dL (60-115)
[2022-02-02] MEDS: Insulin Lispro 100 UNIT/ML 3 ML VIAL SUBCUT ×2 (09:22→16:39)
[2022-02-02] MEDS: Sildenafil Citrate 20 MG TABLET PO ×3 (09:22→19:38)
[2022-02-02] MEDS: HaloperidoL 5 MG TABLET 10 MG PO ×2 (09:22→19:37)
[2022-02-02] MEDS: Ferrous Sulfate 324 MG TABLET.DR PO ×2 (09:23→19:38)
[2022-02-02] MEDS: SITagliptin Phosphate 100 MG TABLET PO (09:23)
[2022-02-02] MEDS: Atorvastatin Calcium 40 MG TABLET PO (09:23)
[2022-02-02] MEDS: Divalproex Sodium ER 500 MG TAB.ER.24H PO (09:23)
[2022-02-02] MEDS: metFORMIN HCl 500 MG TABLET PO ×2 (09:23→16:39)
[2022-02-02] MEDS: Furosemide 40 MG TABLET PO ×2 (09:24→16:39)
--- NOTE | 2022-02-02 13:58 | HO.PM.IMPN ---
Subjective Subjective Date of Service: 02/02/22 <KALI Mckinley - Last Filed: 02/02/22 14:01> 02/02/22 <Lesvia Rosen MD - Last Filed: 02/02/22 20:49> Interval History: Seen and examined this morning Follow-up for placement Frequently refusing medications, blood draws, point of cares Frustrated about being in the hospital Declining physical examination unable to obtain ROS as requested by patient to leave his room <KALI Mckinley - Last Filed: 02/02/22 14:01> Physical Exam Vital Signs: Vital Signs: Last Vital Signs Temp 97.7 F 02/02/22 04:00 Pulse 78 02/02/22 04:00 Resp 17 02/02/22 04:00 BP 104/57 L 02/02/22 04:00 Pulse Ox 94 02/02/22 04:00 O2 Del Method 02/02/22 04:00 O2 Flow Rate 2 02/02/22 04:00 BMI result Body Mass Index 21.8 <KALI Mckinley - Last Filed: 02/02/22 14:01> Const: General: comfortable, no acute distress, alert and awake <KALI Mckinley - Last Filed: 02/02/22 14:01> Nutritional Appearance: average body habitus <KALI Mckinley Last Filed: 02/02/22 14:01> Resp: Effort & Inspection: normal respiratory effort, able to speak in complete sentences and not tachypneic <KALI Mckinley - Last Filed: 02/02/22 14:01> Objective Data Active Medications Acetaminophen (Acetaminophen 325 Mg Tablet) 650 mg PO Q6H PRN PRN Reason: Pain, Mild (Pain Scale 1-3) Atorvastatin Calcium (Atorvastatin Calcium 40 Mg Tablet) 40 mg PO DAILY [facility] Last Admin: 02/02/22 09:23 Dose: 40 mg Documented By: MARK Dextrose (Dextrose 50 % 25 Gm/50 Ml Syringe) 25 gm IVPUSH Q15M PRN; Protocol PRN Reason: per Hypoglycemia Standing Ord. Divalproex Sodium (Divalproex Sodium Er 250 Mg Tab.Er.24h) 250 mg PO DAILY@1700 [facility] Last Admin: 02/01/22 17:43 Dose: Not Given Documented By: MARK Non-Admin Reason: Patient Refused Divalproex Sodium (Divalproex Sodium Er 500 Mg Tab.Er.24h) 500 mg PO DAILY [facility] Last Admin: 02/02/22 09:23 Dose: 500 mg Documented By: MARK Enoxaparin Sodium (Enoxaparin Sodium 40 Mg/0.4 Ml Syringe) 40 mg SUBCUT Q24H [facility] Last Admin: 02/01/22 21:47 Dose: 40 mg Documented By: NELSY Ferrous Sulfate (Ferrous Sulfate 324 Mg Tablet.Dr) 324 mg PO BID [facility] Last Admin: 02/02/22 09:23 Dose: 324 mg Documented By: MARK Fluticasone Propionate (Fluticasone Propionate Nasal 16 Gm [place]) 1 spray NOSTRIL-B BID [facility] Last Admin: 02/02/22 09:27 Dose: Not Given Documented By: MARK Non-Admin Reason: Med Not Available Furosemide (Furosemide 40 Mg Tablet) 40 mg PO BID@0900,1800 [facility]; Protocol Last Admin: 02/02/22 09:24 Dose: 40 mg Documented By: MARK Glucose (Glucose Gel 15 Gm Gel..Gram.) 15 gm PO Q15M PRN; Protocol PRN Reason: per Hypoglycemia Standing Ord. Haloperidol (Haloperidol 5 Mg Tablet) 10 mg PO BID [facility] Last Admin: 02/02/22 09:22 Dose: 10 mg Documented By: MARK Insulin Glargine (Insulin Glargine,Hum.Rec.Anlog 100 Unit/Ml 10 Ml Vial) 10 unit SUBCUT BEDTIME [facility] Last Admin: 02/01/22 21:46 Dose: 10 unit Documented By: NELSY Insulin Human Lispro (Insulin Lispro 100 Unit/Ml 3 Ml Vial) 0 unit SUBCUT QIDACHS [facility]; Protocol Last Admin: 02/02/22 12:07 Dose: Not Given Documented By: MARK Non-Admin Reason: Patient Refused Comments: pt refused POC Melatonin (Melatonin 3 Mg Tablet) 6 mg PO BEDTIME PRN PRN Reason: Insomnia Last Admin: 01/31/22 19:50 Dose: 6 mg Documented By: GENIE Metformin HCl (Metformin Hcl 500 Mg Tablet) 500 mg PO BIDWM [facility] Last Admin: 02/02/22 09:23 Dose: 500 mg Documented By: MARK Neomycin/Polymyxin/Hydrocortisone (Neomycin/Polymyxin/Hc Otic Melanie 10 Ml Drpbtl) 3 drop EAR-RIGHT QID [facility] Last Admin: 02/02/22 12:39 Dose: Not Given Documented By: MARK Non-Admin Reason: Patient Refused Olanzapine (Olanzapine Odt 10 Mg Tab.Rapdis) 5 mg TRANSLINGU BID PRN PRN Reason: agitation, psychosis Last Admin: 01/25/22 20:26 Dose: 5 mg Documented By: GENIE Omeprazole (Omeprazole 20 Mg Capsule.Dr) 20 mg PO DAILY@0630 [facility] Last Admin: 02/02/22 06:30 Dose: Not Given Documented By: NELSY Non-Admin Reason: Patient Refused Senna (Sennosides 8.6 Mg Tablet) 17.2 mg PO BEDTIME PRN PRN Reason: Constipation Sildenafil Citrate (Sildenafil Citrate 20 Mg Tablet) 20 mg PO TID [facility] Last Admin: 02/02/22 09:22 Dose: 20 mg Documented By: MARK Sitagliptin Phosphate (Sitagliptin Phosphate 100 Mg Tablet) 100 mg PO DAILY [facility] Last Admin: 02/02/22 09:23 Dose: 100 mg Documented By: MARK Sodium Chloride (0.9 % Sodium Chloride Flush 3 Ml Syringe) 3 ml IVFLUSH QSHIFT [facility] Last Admin: 02/02/22 09:25 Dose: Not Given Documented By: MARK Non-Admin Reason: No Access <KALI Mckinley - Last Filed: 02/02/22 14:01> Labs CBC & Chem 7: : 01/16/22 05:35 01/23/22 05:51 <KALI Mckinley - Last Filed: 02/02/22 14:01> Labs: Laboratory Results - last 24 hr 02/01/22 02/01/22 02/02/22 15:57 19:40 09:12 POC Glucose 113 187 H 181 H <KALI Mckinley - Last Filed: 02/02/22 14:01> Assessment and Plan (1) Schizo affective schizophrenia: Status: Acute <KALI Mckinley - Last Filed: 02/02/22 14:01> (2) Pulmonary hypertension: Status: Acute <KALI Mckinley - Last Filed: 02/02/22 14:01> Assessment and Plan: 61yo M halfway resident with schizophrenia, DM2, possible COPD/asthma [not formally diagnosed] p/w hypoxia + dyspnea, found to have severe pulmonary HTN/R-sided HF. Patient has declined lab work pulmonary HTN R-sided HF - started on sildenafil by Pulmonology - PO furosemide - outpt f/u with Pulm with consideration of R-sided cath COPD/asthma, provisional diagnosis - outpt PFTs - continue nebs - off steroids - completed doxy DM2 - basal/bolus insulin - sitagliptin, metformin schizoaffective disorder - no behavioral issues at this time - continue VPA, haloperidol - seen by psych, added prn meds HLD - continue statin GERD - continue prilosec VTE ppx - LMWH dispo - cannot go back to Shelter, plan to dc to LTC, HCP invoked, awaiting bed. out of bed, ambulate Attending-Dr. Rosen Need for inpatient stay: pending safe dispo to LTC when bed available, despite his insistance, he cannot go back to the halfway [facility] order to be used if refuses meds <KALI Mckinley - Last Filed: 02/02/22 14:01> Quality Stroke Does the patient have a stroke diagnosis?: No <KALI Mckinley - Last Filed: 02/02/22 14:01> VTE Prior VTE?: No <KALI Mckinley - Last Filed: 02/02/22 14:01> VTE Risk Level:: Medical - moderate - high <KALI Mckinley Last Filed: 02/02/22 14:01> VTE Device Contraindication: Treatment Not Indicated <KALI Mckinley Last Filed: 02/02/22 14:01> VTE Drug Contraindication: N/A - Med Ordered <KALI Mckinley - Last Filed: 02/02/22 14:01>
[2022-02-02 16:00] VITALS: BP 101/66; PULSE 69; RESP 18; TEMP 36.6; O2SAT 92
[2022-02-02 16:35] LABS: Glucose, Whole Blood 173 mg/dL (60-115)
[2022-02-02] MEDS: Divalproex Sodium ER 250 MG TAB.ER.24H PO (16:39)
[2022-02-02] MEDS: Enoxaparin Sodium 40 MG/0.4 ML SYRINGE SUBCUT (19:38)
[2022-02-02 20:29] LABS: Glucose, Whole Blood 158 mg/dL (60-115)
[2022-02-03 08:00] VITALS: BP 88/63; PULSE 74; RESP 18; TEMP 36.9; O2SAT 92
[2022-02-03] MEDS: Ferrous Sulfate 324 MG TABLET.DR PO ×2 (11:04→20:30)
[2022-02-03] MEDS: SITagliptin Phosphate 100 MG TABLET PO (11:04)
[2022-02-03] MEDS: Sildenafil Citrate 20 MG TABLET PO ×3 (11:04→20:30)
[2022-02-03] MEDS: Divalproex Sodium ER 500 MG TAB.ER.24H PO (11:04)
[2022-02-03] MEDS: HaloperidoL 5 MG TABLET 10 MG PO ×2 (11:04→20:30)
[2022-02-03] MEDS: Atorvastatin Calcium 40 MG TABLET PO (11:04)
[2022-02-03] MEDS: Furosemide 40 MG TABLET PO (11:04)
[2022-02-03] MEDS: metFORMIN HCl 500 MG TABLET PO ×2 (11:05→16:30)
[2022-02-03] MEDS: Insulin Lispro 100 UNIT/ML 3 ML VIAL SUBCUT (11:09)
[2022-02-03 11:10] LABS: Glucose, Whole Blood 245 mg/dL (60-115)
--- NOTE | 2022-02-03 15:51 | P.PNIM_ITS ---
Subjective Subjective Date of Service: 02/03/22 Interval History: Seen and examined this morning Follow-up for placement Continues to intermittently refuse labs, POCs and medication Frustrated. Once to be discharged Did allow minimal exam this morning Review of Systems Review of Systems: Yes all other systems are reviewed and are negative Constitutional Constitutional: Denies chills and Denies fever(s) Cardiovascular Cardiovascular: Denies chest pain and Denies dyspnea Respiratory Respiratory: Denies dyspnea Gastrointestinal Gastrointestinal: Denies abdominal pain Physical Exam Vital Signs: Vital Signs: Last Vital Signs Temp 98.5 F 02/03/22 08:00 Pulse 74 02/03/22 08:00 Resp 18 02/03/22 08:00 BP 88/63 L 02/03/22 08:00 Pulse Ox 92 02/03/22 08:00 O2 Del Method 02/03/22 12:00 O2 Flow Rate 2 02/02/22 04:00 BMI result Body Mass Index 21.8 Const: General: comfortable, no acute distress, alert and awake Nutritional Appearance: average body habitus Resp: Effort & Inspection: normal respiratory effort and able to speak in complete sentences Cardio: Rate: regular rate Heart sounds: S1 normal heart sound present and S2 normal heart sound present GI: Palpation (GI): Soft to palpation and nontender Extrem: General: Yes no pedal edema Objective Data Active Medications Acetaminophen (Acetaminophen 325 Mg Tablet) 650 mg PO Q6H PRN PRN Reason: Pain, Mild (Pain Scale 1-3) Atorvastatin Calcium (Atorvastatin Calcium 40 Mg Tablet) 40 mg PO DAILY [facility] Last Admin: 02/03/22 11:04 Dose: 40 mg Documented By: SHAKEEL Dextrose (Dextrose 50 % 25 Gm/50 Ml Syringe) 25 gm IVPUSH Q15M PRN; Protocol PRN Reason: per Hypoglycemia Standing Ord. Divalproex Sodium (Divalproex Sodium Er 250 Mg Tab.Er.24h) 250 mg PO DAILY@1700 [facility] Last Admin: 02/02/22 16:39 Dose: 250 mg Documented By: MARK Divalproex Sodium (Divalproex Sodium Er 500 Mg Tab.Er.24h) 500 mg PO DAILY [facility] Last Admin: 02/03/22 11:04 Dose: 500 mg Documented By: SHAKEEL Enoxaparin Sodium (Enoxaparin Sodium 40 Mg/0.4 Ml Syringe) 40 mg SUBCUT Q24H [facility] Last Admin: 02/02/22 19:38 Dose: 40 mg Documented By: ANA Ferrous Sulfate (Ferrous Sulfate 324 Mg Tablet.Dr) 324 mg PO BID [facility] Last Admin: 02/03/22 11:04 Dose: 324 mg Documented By: SHAKEEL Fluticasone Propionate (Fluticasone Propionate Nasal 16 Gm [place]) 1 spray NOSTRIL-B BID [facility] Last Admin: 02/03/22 11:06 Dose: Not Given Documented By: SHAKEEL Non-Admin Reason: Patient Refused Furosemide (Furosemide 40 Mg Tablet) 40 mg PO BID@0900,1800 [facility]; Protocol Last Admin: 02/03/22 11:04 Dose: 40 mg Documented By: SHAKEEL Glucose (Glucose Gel 15 Gm Gel..Gram.) 15 gm PO Q15M PRN; Protocol PRN Reason: per Hypoglycemia Standing Ord. Haloperidol (Haloperidol 5 Mg Tablet) 10 mg PO BID [facility] Last Admin: 02/03/22 11:04 Dose: 10 mg Documented By: SHAKEEL Insulin Glargine (Insulin Glargine,Hum.Rec.Anlog 100 Unit/Ml 10 Ml Vial) 10 unit SUBCUT BEDTIME [facility] Last Admin: 02/02/22 20:52 Dose: Not Given Documented By: ANA Non-Admin Reason: Patient Refused Insulin Human Lispro (Insulin Lispro 100 Unit/Ml 3 Ml Vial) 0 unit SUBCUT QIDACHS [facility]; Protocol Last Admin: 02/03/22 11:09 Dose: 4 unit Documented By: SHAKEEL Melatonin (Melatonin 3 Mg Tablet) 6 mg PO BEDTIME PRN PRN Reason: Insomnia Last Admin: 01/31/22 19:50 Dose: 6 mg Documented By: GENIE Metformin HCl (Metformin Hcl 500 Mg Tablet) 500 mg PO BIDWM [facility] Last Admin: 02/03/22 11:05 Dose: 500 mg Documented By: SHAKEEL Neomycin/Polymyxin/Hydrocortisone (Neomycin/Polymyxin/Hc Otic Melanie 10 Ml Drpbtl) 3 drop EAR-RIGHT QID [facility] Last Admin: 02/03/22 13:19 Dose: Not Given Documented By: SHAKEEL Non-Admin Reason: Patient Refused Olanzapine (Olanzapine Odt 10 Mg Tab.Rapdis) 5 mg TRANSLINGU BID PRN PRN Reason: agitation, psychosis Last Admin: 01/25/22 20:26 Dose: 5 mg Documented By: GENIE Omeprazole (Omeprazole 20 Mg [place].) 20 mg PO DAILY@0630 [facility] Last Admin: 02/03/22 05:29 Dose: Not Given Documented By: ANA Non-Admin Reason: Patient Refused Senna (Sennosides 8.6 Mg Tablet) 17.2 mg PO BEDTIME PRN PRN Reason: Constipation Sildenafil Citrate (Sildenafil Citrate 20 Mg Tablet) 20 mg PO TID [facility] Last Admin: 02/03/22 11:04 Dose: 20 mg Documented By: SHAKEEL Sitagliptin Phosphate (Sitagliptin Phosphate 100 Mg Tablet) 100 mg PO DAILY [facility] Last Admin: 02/03/22 11:04 Dose: 100 mg Documented By: SHAKEEL Sodium Chloride (0.9 % Sodium Chloride Flush 3 Ml Syringe) 3 ml IVFLUSH QSHIFT [facility] Last Admin: 02/03/22 09:21 Dose: Not Given Documented By: SHAKEEL Non-Admin Reason: No Access Labs CBC & Chem 7: 01/16/22 05:35 01/23/22 05:51 Labs: Laboratory Results - last 24 hr 02/02/22 02/02/22 02/03/22 16:29 20:07 11:06 POC Glucose 173 H 158 H 245 H Assessment and Plan (1) Schizo affective schizophrenia: Status: Acute Plan 61yo M assisted resident with schizophrenia, DM2, possible COPD/asthma [not formally diagnosed] p/w hypoxia + dyspnea, found to have severe pulmonary HTN/R-sided HF. Patient has continued declined lab work pulmonary HTN R-sided HF - started on sildenafil by Pulmonology - PO furosemide - outpt f/u with Pulm with consideration of R-sided cath COPD/asthma, provisional diagnosis - outpt PFTs - continue nebs - off steroids - completed doxy DM2 - basal/bolus insulin - sitagliptin, metformin schizoaffective disorder - no behavioral issues at this time - continue VPA, haloperidol - seen by psych, added prn meds HLD - continue statin GERD - continue prilosec VTE ppx - LMWH dispo - cannot go back to Residential, plan to dc to LTC, HCP invoked, awaiting bed. out of bed, ambulate Attending-Dr. Hewitt Need for inpatient stay: pending safe dispo to LTC when bed available, despite his insistence, he cannot go back to the assisted Has Med treatment plan not Jose order - could give IM haldol if refuses po Quality Stroke Does the patient have a stroke diagnosis?: No VTE Prior VTE?: No VTE Risk Level:: Medical - moderate - high VTE Device Contraindication: Treatment Not Indicated VTE Drug Contraindication: N/A - Med Ordered
[2022-02-03 16:00] VITALS: BP 116/78; PULSE 82; RESP 16; TEMP 36.4; O2SAT 90
[2022-02-03] MEDS: Divalproex Sodium ER 250 MG TAB.ER.24H PO (16:30)
[2022-02-03 16:37] LABS: Glucose, Whole Blood 119 mg/dL (60-115)
[2022-02-03 17:45] VITALS: BP 92/60
[2022-02-03 19:19] VITALS: BP 114/74; O2SAT 93
[2022-02-03 19:54] LABS: Glucose, Whole Blood 184 mg/dL (60-115)
[2022-02-03] MEDS: Insulin Glargine,Hum.rec.anlog 100 UNIT/ML 10 ML VIAL 10 UNIT SUBCUT (20:36)
[2022-02-04] VITALS (7 sets, daily range): BP systolic 100–114; BP diastolic 57–71; PULSE 66–73; RESP 16–18; TEMP 36.2–36.7; O2SAT 91–97
[2022-02-04] MEDS: Omeprazole 20 MG CAPSULE.DR PO (06:03)
[2022-02-04 07:18] LABS: Glucose, Whole Blood 201 mg/dL (60-115)
[2022-02-04] MEDS: Insulin Lispro 100 UNIT/ML 3 ML VIAL SUBCUT ×2 (09:21→12:15)
[2022-02-04] MEDS: SITagliptin Phosphate 100 MG TABLET PO (09:22)
[2022-02-04] MEDS: HaloperidoL 5 MG TABLET 10 MG PO ×2 (09:22→20:25)
[2022-02-04] MEDS: Atorvastatin Calcium 40 MG TABLET PO (09:22)
[2022-02-04] MEDS: Furosemide 40 MG TABLET PO (09:22)
[2022-02-04] MEDS: Sildenafil Citrate 20 MG TABLET PO ×3 (09:22→20:26)
[2022-02-04] MEDS: Ferrous Sulfate 324 MG TABLET.DR PO ×2 (09:22→20:26)
[2022-02-04] MEDS: metFORMIN HCl 500 MG TABLET PO (09:22)
[2022-02-04] MEDS: Divalproex Sodium ER 500 MG TAB.ER.24H PO (09:22)
[2022-02-04 12:15] LABS: Glucose, Whole Blood 185 mg/dL (60-115)
--- NOTE | 2022-02-04 14:34 | HO.PM.IMPN ---
Subjective Subjective Date of Service: 02/04/22 Interval History: Seen and examined this morning Continues to frequently refuse medications, labs, POCs Doesn't want to talk - but denies sob, chest pain doesn't feeling like eating right now Review of Systems Review of Systems: Yes all other systems are reviewed and are negative Cardiovascular Cardiovascular: Denies chest pain and Denies dyspnea Respiratory Respiratory: Denies dyspnea Gastrointestinal Gastrointestinal: Denies abdominal pain Physical Exam Vital Signs: Vital Signs: Last Vital Signs Temp 97.5 F 02/04/22 11:12 Pulse 72 02/04/22 11:12 Resp 18 02/04/22 11:12 BP 108/57 L 02/04/22 11:12 Pulse Ox 91 L 02/04/22 11:12 O2 Del Method 02/04/22 11:12 O2 Flow Rate 2 02/02/22 04:00 BMI result Body Mass Index 21.8 Const: General: comfortable, no acute distress, alert and awake Nutritional Appearance: average body habitus Resp: Effort & Inspection: normal respiratory effort, able to speak in complete sentences and not tachypneic Cardio: Rate: regular rate Heart sounds: S1 normal heart sound present and S2 normal heart sound present Extrem: General: Yes no pedal edema Objective Data Active Medications Acetaminophen (Acetaminophen 325 Mg Tablet) 650 mg PO Q6H PRN PRN Reason: Pain, Mild (Pain Scale 1-3) Atorvastatin Calcium (Atorvastatin Calcium 40 Mg Tablet) 40 mg PO DAILY [facility] Last Admin: 02/04/22 09:22 Dose: 40 mg Documented By: TODD Dextrose (Dextrose 50 % 25 Gm/50 Ml Syringe) 25 gm IVPUSH Q15M PRN; Protocol PRN Reason: per Hypoglycemia Standing Ord. Divalproex Sodium (Divalproex Sodium Er 250 Mg Tab.Er.24h) 250 mg PO DAILY@1700 [facility] Last Admin: 02/03/22 16:30 Dose: 250 mg Documented By: BRENNON Divalproex Sodium (Divalproex Sodium Er 500 Mg Tab.Er.24h) 500 mg PO DAILY [facility] Last Admin: 02/04/22 09:22 Dose: 500 mg Documented By: TODD Enoxaparin Sodium (Enoxaparin Sodium 40 Mg/0.4 Ml Syringe) 40 mg SUBCUT Q24H [facility] Last Admin: 02/03/22 20:36 Dose: Not Given Documented By: EMELINA Non-Admin Reason: Patient Refused Ferrous Sulfate (Ferrous Sulfate 324 Mg Tablet.Dr) 324 mg PO BID [facility] Last Admin: 02/04/22 09:22 Dose: 324 mg Documented By: TODD Fluticasone Propionate (Fluticasone Propionate Nasal 16 Gm [place]) 1 spray NOSTRIL-B BID [facility] Last Admin: 02/04/22 09:28 Dose: Not Given Documented By: TODD Non-Admin Reason: Patient Refused Furosemide (Furosemide 40 Mg Tablet) 40 mg PO BID@0900,1800 [facility]; Protocol Last Admin: 02/04/22 09:22 Dose: 40 mg Documented By: TODD Glucose (Glucose Gel 15 Gm Gel..Gram.) 15 gm PO Q15M PRN; Protocol PRN Reason: per Hypoglycemia Standing Ord. Haloperidol (Haloperidol 5 Mg Tablet) 10 mg PO BID [facility] Last Admin: 02/04/22 09:22 Dose: 10 mg Documented By: TODD Insulin Glargine (Insulin Glargine,Hum.Rec.Anlog 100 Unit/Ml 10 Ml Vial) 10 unit SUBCUT BEDTIME [facility] Last Admin: 02/03/22 20:36 Dose: 10 unit Documented By: EMELINA Insulin Human Lispro (Insulin Lispro 100 Unit/Ml 3 Ml Vial) 0 unit SUBCUT QIDACHS [facility]; Protocol Last Admin: 02/04/22 12:15 Dose: 2 unit Documented By: TODD Melatonin (Melatonin 3 Mg Tablet) 6 mg PO BEDTIME PRN PRN Reason: Insomnia Last Admin: 01/31/22 19:50 Dose: 6 mg Documented By: GENIE Metformin HCl (Metformin Hcl 500 Mg Tablet) 500 mg PO BIDWM [facility] Last Admin: 02/04/22 09:22 Dose: 500 mg Documented By: TODD Neomycin/Polymyxin/Hydrocortisone (Neomycin/Polymyxin/Hc Otic Melanie 10 Ml Drpbtl) 3 drop EAR-RIGHT QID [facility] Last Admin: 02/04/22 12:16 Dose: Not Given Documented By: TODD Non-Admin Reason: Patient Refused Olanzapine (Olanzapine Odt 10 Mg Tab.Rapdis) 5 mg TRANSLINGU BID PRN PRN Reason: agitation, psychosis Last Admin: 01/25/22 20:26 Dose: 5 mg Documented By: GENIE Omeprazole (Omeprazole 20 Mg [place].) 20 mg PO DAILY@0630 [facility] Last Admin: 02/04/22 06:03 Dose: 20 mg Documented By: EMELINA Senna (Sennosides 8.6 Mg Tablet) 17.2 mg PO BEDTIME PRN PRN Reason: Constipation Sildenafil Citrate (Sildenafil Citrate 20 Mg Tablet) 20 mg PO TID [facility] Last Admin: 02/04/22 09:22 Dose: 20 mg Documented By: TODD Sitagliptin Phosphate (Sitagliptin Phosphate 100 Mg Tablet) 100 mg PO DAILY [facility] Last Admin: 02/04/22 09:22 Dose: 100 mg Documented By: TODD Sodium Chloride (0.9 % Sodium Chloride Flush 3 Ml Syringe) 3 ml IVFLUSH QSHIFT [facility] Last Admin: 02/04/22 09:23 Dose: Not Given Documented By: TODD Non-Admin Reason: No Access Labs CBC & Chem 7: 01/16/22 05:35 01/23/22 05:51 Labs: Laboratory Results - last 24 hr 02/03/22 02/03/22 02/04/22 16:31 19:42 07:13 POC Glucose 119 H 184 H 201 H 02/04/22 12:11 POC Glucose 185 H Assessment and Plan (1) Schizo affective schizophrenia: Status: Acute (2) Pulmonary hypertension: Status: Acute Plan 61yo M senior living resident with schizophrenia, DM2, possible COPD/asthma [not formally diagnosed] p/w hypoxia + dyspnea, found to have severe pulmonary HTN/R-sided HF. Patient continues to declined lab work pulmonary HTN R-sided HF - started on sildenafil by Pulmonology - PO furosemide - outpt f/u with Pulm with consideration of R-sided cath COPD/asthma, provisional diagnosis - outpt PFTs - continue nebs - off steroids - completed doxy DM2 - basal/bolus insulin - sitagliptin, metformin schizoaffective disorder - no behavioral issues at this time - continue VPA, haloperidol - seen by psych, added prn meds HLD - continue statin GERD - continue prilosec VTE ppx - LMWH dispo - cannot go back to [facility], plan to dc to LTC, HCP invoked, awaiting bed. out of bed, ambulate Attending-Dr. Brunson Need for inpatient stay: pending safe dispo to LTC when bed available, despite his insistence, he cannot go back to the senior living Has Med treatment plan not Jose order - could give IM haldol if refuses po Quality Stroke Does the patient have a stroke diagnosis?: No VTE Prior VTE?: No VTE Risk Level:: Medical - moderate - high VTE Device Contraindication: Treatment Not Indicated VTE Drug Contraindication: N/A - Med Ordered
[2022-02-04 16:36] LABS: Glucose, Whole Blood 126 mg/dL (60-115)
[2022-02-04 16:37] LABS: Anion Gap 18 (12-20); Blood Urea Nitrogen 24 mg/dL (9-16); Carbon Dioxide 25 mmol/L (22-29); Chloride 100 mmol/L (96-108); Estimated Glomerular Filt Rate 59; Glucose Random 169 mg/dL (60-115); Potassium 5.6 mmol/L (3.3-5.1); Sodium 137 mmol/L (135-145)
[2022-02-04 19:17] LABS: Glucose, Whole Blood 209 mg/dL (60-115)
[2022-02-04] MEDS: Insulin Glargine,Hum.rec.anlog 100 UNIT/ML 10 ML VIAL 10 UNIT SUBCUT (20:26)
[2022-02-05 04:00] VITALS: RESP 16
[2022-02-05] MEDS: Omeprazole 20 MG CAPSULE.DR PO (05:54)
[2022-02-05 07:14] VITALS: BP 100/64; PULSE 67; RESP 18; TEMP 36.3; O2SAT 100
[2022-02-05] MEDS: HaloperidoL 5 MG TABLET 10 MG PO (07:17)
[2022-02-05] MEDS: Sildenafil Citrate 20 MG TABLET PO ×2 (07:18→16:52)
[2022-02-05] MEDS: metFORMIN HCl 500 MG TABLET PO ×2 (07:18→16:52)
[2022-02-05] MEDS: Ferrous Sulfate 324 MG TABLET.DR PO (07:18)
[2022-02-05] MEDS: SITagliptin Phosphate 100 MG TABLET PO (07:18)
[2022-02-05] MEDS: Furosemide 40 MG TABLET PO ×2 (07:18→16:52)
[2022-02-05] MEDS: Divalproex Sodium ER 500 MG TAB.ER.24H PO (07:18)
[2022-02-05] MEDS: Atorvastatin Calcium 40 MG TABLET PO (07:18)
[2022-02-05] MEDS: Insulin Lispro 100 UNIT/ML 3 ML VIAL SUBCUT ×3 (07:23→16:50)
[2022-02-05 07:50] LABS: Glucose, Whole Blood 151 mg/dL (60-115)
--- NOTE | 2022-02-05 08:39 | HO.PM.IMPN ---
Subjective Subjective Date of Service: 02/05/22 Interval History: Seen and examined this morning Not interested in talking unless he's leaving, at times refuses meds Review of Systems no sob no fever Physical Exam Vital Signs: Vital Signs: Last Vital Signs Temp 97.3 F 02/05/22 07:14 Pulse 67 02/05/22 07:14 Resp 18 02/05/22 07:14 BP 100/64 02/05/22 07:14 Pulse Ox 100 02/05/22 07:14 O2 Del Method 02/05/22 07:14 O2 Flow Rate 2 02/02/22 04:00 BMI result Body Mass Index 21.8 Const: Other: General: AO X 2, no acute distress Resp: CTA bilateral CVS: S1,S2,RRR GI: +BS, NT, no distention Skin: No rash Neuro: motor grossly intact Psych: flat affect Objective Data Active Medications Acetaminophen (Acetaminophen 325 Mg Tablet) 650 mg PO Q6H PRN PRN Reason: Pain, Mild (Pain Scale 1-3) Atorvastatin Calcium (Atorvastatin Calcium 40 Mg Tablet) 40 mg PO DAILY [facility] Last Admin: 02/05/22 07:18 Dose: 40 mg Documented By: MANSOOR Dextrose (Dextrose 50 % 25 Gm/50 Ml Syringe) 25 gm IVPUSH Q15M PRN; Protocol PRN Reason: per Hypoglycemia Standing Ord. Divalproex Sodium (Divalproex Sodium Er 250 Mg Tab.Er.24h) 250 mg PO DAILY@1700 [facility] Last Admin: 02/04/22 16:04 Dose: Not Given Documented By: SHIRLEY Non-Admin Reason: patient refused Divalproex Sodium (Divalproex Sodium Er 500 Mg Tab.Er.24h) 500 mg PO DAILY [facility] Last Admin: 02/05/22 07:18 Dose: 500 mg Documented By: MANSOOR Enoxaparin Sodium (Enoxaparin Sodium 40 Mg/0.4 Ml Syringe) 40 mg SUBCUT Q24H [facility] Last Admin: 02/04/22 20:26 Dose: Not Given Documented By: EMELINA Non-Admin Reason: Patient Refused Ferrous Sulfate (Ferrous Sulfate 324 Mg Tablet.) 324 mg PO BID [facility] Last Admin: 02/05/22 07:18 Dose: 324 mg Documented By: MANSOOR Fluticasone Propionate (Fluticasone Propionate Nasal 16 Gm [place]) 1 spray NOSTRIL-B BID [facility] Last Admin: 02/05/22 07:19 Dose: Not Given Documented By: MANSOOR Non-Admin Reason: Patient Refused Furosemide (Furosemide 40 Mg Tablet) 40 mg PO BID@0900,1800 [facility]; Protocol Last Admin: 02/05/22 07:18 Dose: 40 mg Documented By: MANSOOR Glucose (Glucose Gel 15 Gm Gel..Gram.) 15 gm PO Q15M PRN; Protocol PRN Reason: per Hypoglycemia Standing Ord. Haloperidol (Haloperidol 5 Mg Tablet) 10 mg PO BID [facility] Last Admin: 02/05/22 07:17 Dose: 10 mg Documented By: MANSOOR Insulin Glargine (Insulin Glargine,Hum.Rec.Anlog 100 Unit/Ml 10 Ml Vial) 10 unit SUBCUT BEDTIME [facility] Last Admin: 02/04/22 20:26 Dose: 10 unit Documented By: EMELINA Insulin Human Lispro (Insulin Lispro 100 Unit/Ml 3 Ml Vial) 0 unit SUBCUT QIDACHS [facility]; Protocol Last Admin: 02/05/22 07:23 Dose: 2 unit Documented By: MANSOOR Melatonin (Melatonin 3 Mg Tablet) 6 mg PO BEDTIME PRN PRN Reason: Insomnia Last Admin: 01/31/22 19:50 Dose: 6 mg Documented By: GENIE Metformin HCl (Metformin Hcl 500 Mg Tablet) 500 mg PO BIDWM [facility] Last Admin: 02/05/22 07:18 Dose: 500 mg Documented By: MANSOOR Neomycin/Polymyxin/Hydrocortisone (Neomycin/Polymyxin/Hc Otic Melanie 10 Ml Drpbtl) 3 drop EAR-RIGHT QID [facility] Last Admin: 02/05/22 07:19 Dose: Not Given Documented By: MANSOOR Non-Admin Reason: Patient Refused Olanzapine (Olanzapine Odt 10 Mg Tab.Rapdis) 5 mg TRANSLINGU BID PRN PRN Reason: agitation, psychosis Last Admin: 01/25/22 20:26 Dose: 5 mg Documented By: GENIE Omeprazole (Omeprazole 20 Mg Capsule.Dr) 20 mg PO DAILY@0630 [facility] Last Admin: 02/05/22 05:54 Dose: 20 mg Documented By: EMELINA Senna (Sennosides 8.6 Mg Tablet) 17.2 mg PO BEDTIME PRN PRN Reason: Constipation Sildenafil Citrate (Sildenafil Citrate 20 Mg Tablet) 20 mg PO TID [facility] Last Admin: 02/05/22 07:18 Dose: 20 mg Documented By: MANSOOR Sitagliptin Phosphate (Sitagliptin Phosphate 100 Mg Tablet) 100 mg PO DAILY [facility] Last Admin: 02/05/22 07:18 Dose: 100 mg Documented By: MANSOOR Sodium Chloride (0.9 % Sodium Chloride Flush 3 Ml Syringe) 3 ml IVFLUSH QSHIFT [facility] Last Admin: 02/05/22 07:19 Dose: Not Given Documented By: MANSOOR Non-Admin Reason: No Access Labs CBC & Chem 7: 01/16/22 05:35 02/04/22 15:53 Labs: Laboratory Results - last 24 hr 02/04/22 02/04/22 02/04/22 12:11 15:10 15:53 Anion Gap 18 Estim Creat Clear Calc 63.0 Estimated GFR 59 POC Glucose 185 H 126 H Random Glucose 169 H D Calcium 9.0 02/04/22 02/05/22 19:04 07:20 Anion Gap Estim Creat Clear Calc Estimated GFR POC Glucose 209 H 151 H Random Glucose Calcium Assessment and Plan (1) Schizo affective schizophrenia: Status: Acute (2) Pulmonary hypertension: Status: Acute Plan 61yo M [facility] resident with schizophrenia, DM2, possible COPD/asthma [not formally diagnosed] p/w hypoxia + dyspnea, found to have severe pulmonary HTN/R-sided HF. Patient continues to declined lab work pulmonary HTN R-sided HF - started on sildenafil by Pulmonology - PO furosemide - outpt f/u with Pulm with consideration of R-sided cath COPD/asthma, provisional diagnosis - outpt PFTs - continue nebs - off steroids - completed doxy -Off O2 DM2 - basal/bolus insulin - sitagliptin, metformin schizoaffective disorder - no behavioral issues at this time - continue VPA, haloperidol - seen by psych, added prn meds HLD - continue statin GERD - continue prilosec VTE ppx - LMWH dispo - cannot go back to [facility], plan to dc to LTC, HCP invoked, awaiting bed. out of bed, ambulate Need for inpatient stay: pending safe dispo to LTC when bed available, despite his insistence, he cannot go back to the [facility] Has Med treatment plan not Garcia order - could give IM haldol if refuses po Quality Stroke Does the patient have a stroke diagnosis?: No VTE Prior VTE?: No VTE Risk Level:: Medical - moderate - high VTE Device Contraindication: Treatment Not Indicated VTE Drug Contraindication: N/A - Med Ordered
[2022-02-05 11:48] LABS: Glucose, Whole Blood 160 mg/dL (60-115)
[2022-02-05 15:40] VITALS: BP 109/60; PULSE 74; RESP 14; TEMP 36.5; O2SAT 94
[2022-02-05 16:29] LABS: Glucose, Whole Blood 167 mg/dL (60-115)
[2022-02-05] MEDS: Divalproex Sodium ER 250 MG TAB.ER.24H PO (16:52)
[2022-02-05 19:32] VITALS: BP 104/62; PULSE 66; RESP 14; TEMP 37.3; O2SAT 94
--- NOTE | 2022-02-05 20:48 | PC.NURSE ---
pt refused all pm meds and poc.
[2022-02-06] MEDS: Omeprazole 20 MG CAPSULE.DR PO (06:22)
[2022-02-06 07:12] VITALS: BP 116/61; PULSE 66; RESP 18; TEMP 36.7; O2SAT 93
[2022-02-06 07:42] LABS: Glucose, Whole Blood 139 mg/dL (60-115)
--- NOTE | 2022-02-06 09:09 | HO.PM.IMPN ---
Subjective Subjective Date of Service: 02/06/22 Interval History: Seen and examined this morning upset about still being here Review of Systems no sob no fever Physical Exam Vital Signs: Vital Signs: Last Vital Signs Temp 98.0 F 02/06/22 07:12 Pulse 66 02/06/22 07:12 Resp 18 02/06/22 07:12 BP 116/61 02/06/22 07:12 Pulse Ox 93 02/06/22 07:12 O2 Del Method 02/06/22 07:12 O2 Flow Rate 2 02/02/22 04:00 BMI result Body Mass Index 21.8 Const: Other: General: AO X 2, no acute distress Resp: CTA bilateral CVS: S1,S2,RRR GI: +BS, NT, no distention Skin: No rash Neuro: motor grossly intact Psych: flat affect Objective Data Active Medications Acetaminophen (Acetaminophen 325 Mg Tablet) 650 mg PO Q6H PRN PRN Reason: Pain, Mild (Pain Scale 1-3) Atorvastatin Calcium (Atorvastatin Calcium 40 Mg Tablet) 40 mg PO DAILY [facility] Last Admin: 02/05/22 07:18 Dose: 40 mg Documented By: MANSOOR Dextrose (Dextrose 50 % 25 Gm/50 Ml Syringe) 25 gm IVPUSH Q15M PRN; Protocol PRN Reason: per Hypoglycemia Standing Ord. Divalproex Sodium (Divalproex Sodium Er 250 Mg Tab.Er.24h) 250 mg PO DAILY@1700 [facility] Last Admin: 02/05/22 16:52 Dose: 250 mg Documented By: MANSOOR Divalproex Sodium (Divalproex Sodium Er 500 Mg Tab.Er.24h) 500 mg PO DAILY [facility] Last Admin: 02/05/22 07:18 Dose: 500 mg Documented By: MANSOOR Enoxaparin Sodium (Enoxaparin Sodium 40 Mg/0.4 Ml Syringe) 40 mg SUBCUT Q24H [facility] Last Admin: 02/05/22 20:02 Dose: Not Given Documented By: ESTELLE Non-Admin Reason: Patient Refused Ferrous Sulfate (Ferrous Sulfate 324 Mg Tablet.) 324 mg PO BID [facility] Last Admin: 02/05/22 20:03 Dose: Not Given Documented By: ESTELLE Non-Admin Reason: Patient Refused Fluticasone Propionate (Fluticasone Propionate Nasal 16 Gm [place]) 1 spray NOSTRIL-B BID [facility] Last Admin: 02/05/22 20:03 Dose: Not Given Documented By: ESTELLE Non-Admin Reason: Patient Refused Furosemide (Furosemide 40 Mg Tablet) 40 mg PO BID@0900,1800 [facility]; Protocol Last Admin: 02/05/22 16:52 Dose: 40 mg Documented By: MANSOOR Glucose (Glucose Gel 15 Gm Gel..Gram.) 15 gm PO Q15M PRN; Protocol PRN Reason: per Hypoglycemia Standing Ord. Haloperidol (Haloperidol 5 Mg Tablet) 10 mg PO BID [facility] Last Admin: 02/05/22 20:03 Dose: Not Given Documented By: ESTELLE Non-Admin Reason: Patient Refused Insulin Glargine (Insulin Glargine,Hum.Rec.Anlog 100 Unit/Ml 10 Ml Vial) 10 unit SUBCUT BEDTIME [facility] Last Admin: 02/05/22 20:03 Dose: Not Given Documented By: ESTELLE Non-Admin Reason: Patient Refused Insulin Human Lispro (Insulin Lispro 100 Unit/Ml 3 Ml Vial) 0 unit SUBCUT QIDACHS [facility]; Protocol Last Admin: 02/06/22 07:51 Dose: Not Given Documented By: MANSOOR Non-Admin Reason: No Insulin Coverage Melatonin (Melatonin 3 Mg Tablet) 6 mg PO BEDTIME PRN PRN Reason: Insomnia Last Admin: 01/31/22 19:50 Dose: 6 mg Documented By: GENIE Metformin HCl (Metformin Hcl 500 Mg Tablet) 500 mg PO BIDWM [facility] Last Admin: 02/05/22 16:52 Dose: 500 mg Documented By: MANSOOR Neomycin/Polymyxin/Hydrocortisone (Neomycin/Polymyxin/Hc Otic Melanie 10 Ml Drpbtl) 3 drop EAR-RIGHT QID [facility] Last Admin: 02/05/22 20:04 Dose: Not Given Documented By: ESTELLE Non-Admin Reason: Patient Refused Olanzapine (Olanzapine Odt 10 Mg Tab.Rapdis) 5 mg TRANSLINGU BID PRN PRN Reason: agitation, psychosis Last Admin: 01/25/22 20:26 Dose: 5 mg Documented By: GENIE Omeprazole (Omeprazole 20 Mg Capsule.Dr) 20 mg PO DAILY@0630 [facility] Last Admin: 02/06/22 06:22 Dose: 20 mg Documented By: ESTELLE Senna (Sennosides 8.6 Mg Tablet) 17.2 mg PO BEDTIME PRN PRN Reason: Constipation Sildenafil Citrate (Sildenafil Citrate 20 Mg Tablet) 20 mg PO TID [facility] Last Admin: 02/05/22 20:04 Dose: Not Given Documented By: ESTELLE Non-Admin Reason: Patient Refused Sitagliptin Phosphate (Sitagliptin Phosphate 100 Mg Tablet) 100 mg PO DAILY [facility] Last Admin: 02/05/22 07:18 Dose: 100 mg Documented By: MANSOOR Sodium Chloride (0.9 % Sodium Chloride Flush 3 Ml Syringe) 3 ml IVFLUSH QSHIFT [facility] Last Admin: 02/06/22 07:51 Dose: Not Given Documented By: MANSOOR Non-Admin Reason: No Access Labs CBC & Chem 7: 01/16/22 05:35 02/04/22 15:53 Labs: Laboratory Results - last 24 hr 02/05/22 02/05/22 02/06/22 11:17 15:42 07:10 POC Glucose 160 H 167 H 139 H Assessment and Plan (1) Schizo affective schizophrenia: Status: Acute (2) Pulmonary hypertension: Status: Acute Plan 61yo M custodial resident with schizophrenia, DM2, possible COPD/asthma [not formally diagnosed] p/w hypoxia + dyspnea found to have severe pulmonary HTN/R-sided HF. The patient continues to decline lab work? pulmonary HTN R-sided HF - started on sildenafil by Pulmonology -? PO furosemide - outpt f/u with Pulm with consideration of R-sided cath COPD/asthma, provisional diagnosis - outpt PFTs - continue nebs - off steroids - completed doxy -Off O2 with good O2 saturation DM2 - basal/bolus insulin - sitagliptin, metformin schizoaffective disorder - no behavioral issues at this time? - continue VPA, haloperidol - seen by psych, added prn meds? HLD - continue statin? GERD - continue Prilosec VTE ppx - LMWH dispo - [facility], plan to dc to [facility], HCP invoked, awaiting bed.?? out of bed, ambulate ? Need for inpatient stay: pending safe dispo to LTC when bed available, despite his insistence, he cannot go back to the custodial Has Med treatment plan NOT Garcia order - could give IM Haldol if refuses po Quality Stroke Does the patient have a stroke diagnosis?: No VTE Prior VTE?: No VTE Risk Level:: Medical - moderate - high VTE Device Contraindication: Treatment Not Indicated VTE Drug Contraindication: N/A - Med Ordered
[2022-02-06] MEDS: HaloperidoL 5 MG TABLET 10 MG PO ×2 (09:24→21:05)
[2022-02-06] MEDS: metFORMIN HCl 500 MG TABLET PO ×2 (09:25→17:20)
[2022-02-06] MEDS: Ferrous Sulfate 324 MG TABLET.DR PO ×2 (09:25→20:50)
[2022-02-06] MEDS: Divalproex Sodium ER 500 MG TAB.ER.24H PO (09:25)
[2022-02-06] MEDS: Sildenafil Citrate 20 MG TABLET PO ×3 (09:25→20:50)
[2022-02-06] MEDS: Furosemide 40 MG TABLET PO (09:25)
[2022-02-06] MEDS: Atorvastatin Calcium 40 MG TABLET PO (09:25)
[2022-02-06] MEDS: SITagliptin Phosphate 100 MG TABLET PO (09:25)
[2022-02-06 11:09] VITALS: BP 98/63; PULSE 65; RESP 18; TEMP 36.6; O2SAT 93
[2022-02-06 11:23] LABS: Glucose, Whole Blood 180 mg/dL (60-115)
[2022-02-06] MEDS: Insulin Lispro 100 UNIT/ML 3 ML VIAL SUBCUT ×3 (12:35→20:51)
[2022-02-06 16:00] VITALS: BP 91/61; PULSE 77; RESP 17; TEMP 36.3; O2SAT 94
[2022-02-06 16:18] LABS: Glucose, Whole Blood 153 mg/dL (60-115)
[2022-02-06] MEDS: Divalproex Sodium ER 250 MG TAB.ER.24H PO (17:20)
[2022-02-06 20:39] LABS: Glucose, Whole Blood 169 mg/dL (60-115)
[2022-02-06] MEDS: Enoxaparin Sodium 40 MG/0.4 ML SYRINGE SUBCUT (20:50)
[2022-02-06] MEDS: Insulin Glargine,Hum.rec.anlog 100 UNIT/ML 10 ML VIAL 10 UNIT SUBCUT (20:51)
[2022-02-06 23:23] VITALS: BP 103/68; PULSE 63; RESP 18; TEMP 36.2; O2SAT 94
[2022-02-07 03:35] VITALS: RESP 18
[2022-02-07] MEDS: Omeprazole 20 MG CAPSULE.DR PO (06:03)
[2022-02-07 07:23] VITALS: BP 112/75; PULSE 93; RESP 18; TEMP 36.6; O2SAT 92
[2022-02-07 07:29] LABS: Glucose, Whole Blood 248 mg/dL (60-115)
[2022-02-07] MEDS: metFORMIN HCl 500 MG TABLET PO ×2 (07:55→16:58)
[2022-02-07] MEDS: Sildenafil Citrate 20 MG TABLET PO ×3 (07:55→19:41)
[2022-02-07] MEDS: SITagliptin Phosphate 100 MG TABLET PO (07:55)
[2022-02-07] MEDS: Divalproex Sodium ER 500 MG TAB.ER.24H PO (07:55)
[2022-02-07] MEDS: Furosemide 40 MG TABLET PO ×2 (07:55→16:57)
[2022-02-07] MEDS: Atorvastatin Calcium 40 MG TABLET PO (07:55)
[2022-02-07] MEDS: Ferrous Sulfate 324 MG TABLET.DR PO ×2 (07:55→19:41)
[2022-02-07] MEDS: Insulin Lispro 100 UNIT/ML 3 ML VIAL SUBCUT ×2 (07:56→16:58)
[2022-02-07] MEDS: HaloperidoL 5 MG TABLET 10 MG PO ×2 (07:58→19:41)
--- NOTE | 2022-02-07 10:49 | P.PNIM_ITS ---
Subjective Subjective Date of Service: 02/07/22 Interval History: Seen and examined this morning Still upset about being in the hospital Review of Systems no sob no fever Physical Exam Vital Signs: Vital Signs: Last Vital Signs Temp 97.9 F 02/07/22 07:23 Pulse 93 02/07/22 07:23 Resp 18 02/07/22 07:23 BP 112/75 02/07/22 07:23 Pulse Ox 92 02/07/22 07:23 O2 Del Method 02/07/22 07:23 O2 Flow Rate 2 02/02/22 04:00 BMI result Body Mass Index 21.8 Const: Other: General: AO X 2, no acute distress Resp: CTA bilateral CVS: S1,S2,RRR GI: +BS, NT, no distention Skin: No rash Neuro: motor grossly intact Psych: flat affect Objective Data Active Medications Acetaminophen (Acetaminophen 325 Mg Tablet) 650 mg PO Q6H PRN PRN Reason: Pain, Mild (Pain Scale 1-3) Atorvastatin Calcium (Atorvastatin Calcium 40 Mg Tablet) 40 mg PO DAILY [facility] Last Admin: 02/07/22 07:55 Dose: 40 mg Documented By: SHAKEEL Dextrose (Dextrose 50 % 25 Gm/50 Ml Syringe) 25 gm IVPUSH Q15M PRN; Protocol PRN Reason: per Hypoglycemia Standing Ord. Divalproex Sodium (Divalproex Sodium Er 250 Mg Tab.Er.24h) 250 mg PO DAILY@1700 [facility] Last Admin: 02/06/22 17:20 Dose: 250 mg Documented By: MANSOOR Divalproex Sodium (Divalproex Sodium Er 500 Mg Tab.Er.24h) 500 mg PO DAILY [facility] Last Admin: 02/07/22 07:55 Dose: 500 mg Documented By: SHAKEEL Enoxaparin Sodium (Enoxaparin Sodium 40 Mg/0.4 Ml Syringe) 40 mg SUBCUT Q24H [facility] Last Admin: 02/06/22 20:50 Dose: 40 mg Documented By: NELSY Ferrous Sulfate (Ferrous Sulfate 324 Mg Tablet.Dr) 324 mg PO BID [facility] Last Admin: 02/07/22 07:55 Dose: 324 mg Documented By: SHAKEEL Fluticasone Propionate (Fluticasone Propionate Nasal 16 Gm [place]) 1 spray NOSTRIL-B BID [facility] Last Admin: 02/07/22 08:06 Dose: Not Given Documented By: SHAKEEL Non-Admin Reason: Patient Refused Furosemide (Furosemide 40 Mg Tablet) 40 mg PO BID@0900,1800 [facility]; Protocol Last Admin: 02/07/22 07:55 Dose: 40 mg Documented By: SHAKEEL Glucose (Glucose Gel 15 Gm Gel..Gram.) 15 gm PO Q15M PRN; Protocol PRN Reason: per Hypoglycemia Standing Ord. Haloperidol (Haloperidol 5 Mg Tablet) 10 mg PO BID [facility] Last Admin: 02/07/22 07:58 Dose: 10 mg Documented By: SHAKEEL Insulin Glargine (Insulin Glargine,Hum.Rec.Anlog 100 Unit/Ml 10 Ml Vial) 10 unit SUBCUT BEDTIME [facility] Last Admin: 02/06/22 20:51 Dose: 10 unit Documented By: NELSY Insulin Human Lispro (Insulin Lispro 100 Unit/Ml 3 Ml Vial) 0 unit SUBCUT QIDACHS [facility]; Protocol Last Admin: 02/07/22 07:56 Dose: 4 unit Documented By: SHAKEEL Melatonin (Melatonin 3 Mg Tablet) 6 mg PO BEDTIME PRN PRN Reason: Insomnia Last Admin: 01/31/22 19:50 Dose: 6 mg Documented By: GENIE Metformin HCl (Metformin Hcl 500 Mg Tablet) 500 mg PO BIDWM [facility] Last Admin: 02/07/22 07:55 Dose: 500 mg Documented By: SHAKEEL Neomycin/Polymyxin/Hydrocortisone (Neomycin/Polymyxin/Hc Otic Melanie 10 Ml Drpbtl) 3 drop EAR-RIGHT QID [facility] Last Admin: 02/07/22 08:05 Dose: Not Given Documented By: SHAKEEL Non-Admin Reason: Patient Refused Olanzapine (Olanzapine Odt 10 Mg Tab.Rapdis) 5 mg TRANSLINGU BID PRN PRN Reason: agitation, psychosis Last Admin: 01/25/22 20:26 Dose: 5 mg Documented By: GENIE Omeprazole (Omeprazole 20 Mg Capsule.Dr) 20 mg PO DAILY@0630 [facility] Last Admin: 02/07/22 06:03 Dose: 20 mg Documented By: NELSY Senna (Sennosides 8.6 Mg Tablet) 17.2 mg PO BEDTIME PRN PRN Reason: Constipation Sildenafil Citrate (Sildenafil Citrate 20 Mg Tablet) 20 mg PO TID [facility] Last Admin: 02/07/22 07:55 Dose: 20 mg Documented By: SHAKEEL Sitagliptin Phosphate (Sitagliptin Phosphate 100 Mg Tablet) 100 mg PO DAILY [facility] Last Admin: 02/07/22 07:55 Dose: 100 mg Documented By: SHAKEEL Sodium Chloride (0.9 % Sodium Chloride Flush 3 Ml Syringe) 3 ml IVFLUSH QSHIFT [facility] Last Admin: 02/07/22 07:57 Dose: Not Given Documented By: SHAKEEL Non-Admin Reason: No Access Labs CBC & Chem 7: 01/16/22 05:35 02/04/22 15:53 Labs: Laboratory Results - last 24 hr 02/06/22 02/06/22 02/06/22 11:02 16:13 20:30 POC Glucose 180 H 153 H 169 H 02/07/22 07:20 POC Glucose 248 H Assessment and Plan (1) Schizo affective schizophrenia: Status: Acute (2) Pulmonary hypertension: Status: Acute Plan 61 yo M from senior living resident with schizophrenia, DM2, possible COPD/asthma [not formally diagnosed] p/w hypoxia + dyspnea found to have severe pulmonary HTN/R-sided HF. essentially no change in care, awaiting placement pulmonary HTN R-sided HF - started on sildenafil by Pulmonology -? PO furosemide - outpt f/u with Pulm with consideration of R-sided cath COPD/asthma, provisional diagnosis - outpt PFTs - continue nebs - off steroids - completed doxy -Off O2 with good O2 saturation DM2 - basal/bolus insulin - sitagliptin, metformin schizoaffective disorder - no behavioral issues at this time? - continue VPA, haloperidol - seen by psych, added prn meds? HLD - continue statin? GERD - continue Prilosec VTE ppx - LMWH dispo - [facility], plan to dc to LTC, HCP invoked, awaiting bed.?? out of bed, ambulate ? Need for inpatient stay: pending safe dispo to LTC when bed available, despite his insistence, he cannot go back to the senior living Has Med treatment plan NOT Garcia order - could give IM Haldol if refuses po Quality Stroke Does the patient have a stroke diagnosis?: No VTE Prior VTE?: No VTE Risk Level:: Medical - moderate - high VTE Device Contraindication: Treatment Not Indicated VTE Drug Contraindication: N/A - Med Ordered
[2022-02-07 11:04] VITALS: BP 101/60; PULSE 69; RESP 18; TEMP 36.5; O2SAT 92
[2022-02-07 11:29] LABS: Glucose, Whole Blood 120 mg/dL (60-115)
--- NOTE | 2022-02-07 13:14 | MHC.CM.PN ---
Addendum entered by Rima Leon RN 02/07/22 13:51: [facility] EMA[employer] [email or web address] [facility] Original Note: CM CONTACTED PT'S GUARDIAN ANDREW FLOYD AT 12:55PM [phone] TO DISCUSS DISPO AND VERIFY COURT DATE, ANDREW REPORTS ATTY JASON MAY ACTUALLY HAVE MORE DOCUMENTATION AND MOORE AND THAT SHE WILL CONTACT HIM VIA EMAIL AND CC CMANDREW UPDATED ON BED SEARCH AND SHE DID REQUEST WE DO NOT SEND PT TO [facility] THEY LET ANOTHER [facility] CLIENT LEAVE AMA AND WILL NOT TAKE THEM BACK, CM HAS UPDATED REFERRAL AND REQUESTED [facility] TO RE-REVIEW ONCE [facility] IS RENEWED, CM WILL CONT TO FOLLOW REFERRALS AND D/C NEEDS. NOTE: GUARDIAN WILL BE AWAY NEXT WEEK HOWEVER WILL BE CHECKING VOICEMAIL/EMAILS.
[2022-02-07 15:29] VITALS: BP 92/62; PULSE 63; RESP 18; TEMP 37.3; O2SAT 94
[2022-02-07 16:02] LABS: Glucose, Whole Blood 184 mg/dL (60-115)
[2022-02-07] MEDS: Divalproex Sodium ER 250 MG TAB.ER.24H PO (16:58)
[2022-02-07 20:00] VITALS: BP 113/68; PULSE 62; RESP 18; TEMP 36.7; O2SAT 100
[2022-02-07 21:26] LABS: Glucose, Whole Blood 140 mg/dL (60-115)
[2022-02-07 23:43] VITALS: BP 95/66; PULSE 72; RESP 18; TEMP 36.3; O2SAT 92
[2022-02-08 03:13] VITALS: BP 81/58; PULSE 72; RESP 18; TEMP 36.3; O2SAT 92
[2022-02-08] MEDS: Omeprazole 20 MG CAPSULE.DR PO (05:45)
[2022-02-08 08:19] LABS: Glucose, Whole Blood 111 mg/dL (60-115)
--- NOTE | 2022-02-08 09:16 | P.PNIM_ITS ---
Subjective Subjective Date of Service: 02/08/22 Interval History: Seen and examined this morning was a bit more cooperative today Review of Systems no sob no fever Physical Exam Vital Signs: Vital Signs: Last Vital Signs Temp 97.3 F 02/08/22 03:13 Pulse 72 02/08/22 03:13 Resp 18 02/08/22 03:13 BP 81/58 L 02/08/22 03:13 Pulse Ox 92 02/08/22 03:13 O2 Del Method 02/08/22 03:13 O2 Flow Rate 2 02/07/22 20:00 BMI result Body Mass Index 21.8 Const: Other: General: AO X 2, no acute distress Resp: CTA bilateral CVS: S1,S2,RRR GI: +BS, NT, no distention Skin: No rash Neuro: motor grossly intact Psych: flat affect Objective Data Active Medications Acetaminophen (Acetaminophen 325 Mg Tablet) 650 mg PO Q6H PRN PRN Reason: Pain, Mild (Pain Scale 1-3) Atorvastatin Calcium (Atorvastatin Calcium 40 Mg Tablet) 40 mg PO DAILY [facility] Last Admin: 02/07/22 07:55 Dose: 40 mg Documented By: SHAKEEL Dextrose (Dextrose 50 % 25 Gm/50 Ml Syringe) 25 gm IVPUSH Q15M PRN; Protocol PRN Reason: per Hypoglycemia Standing Ord. Divalproex Sodium (Divalproex Sodium Er 250 Mg Tab.Er.24h) 250 mg PO DAILY@1700 [facility] Last Admin: 02/07/22 16:58 Dose: 250 mg Documented By: SHAKEEL Divalproex Sodium (Divalproex Sodium Er 500 Mg Tab.Er.24h) 500 mg PO DAILY [facility] Last Admin: 02/07/22 07:55 Dose: 500 mg Documented By: SHAKEEL Enoxaparin Sodium (Enoxaparin Sodium 40 Mg/0.4 Ml Syringe) 40 mg SUBCUT Q24H [facility] Last Admin: 02/07/22 22:05 Dose: Not Given Documented By: BLADIMIR Non-Admin Reason: Patient Refused Ferrous Sulfate (Ferrous Sulfate 324 Mg Tablet.) 324 mg PO BID [facility] Last Admin: 02/07/22 19:41 Dose: 324 mg Documented By: BLADIMIR Fluticasone Propionate (Fluticasone Propionate Nasal 16 Gm [place]) 1 spray NOSTRIL-B BID [facility] Last Admin: 02/07/22 21:16 Dose: Not Given Documented By: BLADIMIR Non-Admin Reason: Patient Refused Furosemide (Furosemide 40 Mg Tablet) 40 mg PO BID@0900,1800 [facility]; Protocol Last Admin: 02/07/22 16:57 Dose: 40 mg Documented By: SHAKEEL Glucose (Glucose Gel 15 Gm Gel..Gram.) 15 gm PO Q15M PRN; Protocol PRN Reason: per Hypoglycemia Standing Ord. Haloperidol (Haloperidol 5 Mg Tablet) 10 mg PO BID [facility] Last Admin: 02/07/22 19:41 Dose: 10 mg Documented By: BLADIMIR Insulin Glargine (Insulin Glargine,Hum.Rec.Anlog 100 Unit/Ml 10 Ml Vial) 10 unit SUBCUT BEDTIME [facility] Last Admin: 02/07/22 22:06 Dose: Not Given Documented By: BLADIMIR Non-Admin Reason: Patient Refused Insulin Human Lispro (Insulin Lispro 100 Unit/Ml 3 Ml Vial) 0 unit SUBCUT QIDACHS [facility]; Protocol Last Admin: 02/07/22 21:29 Dose: Not Given Documented By: BLADIMIR Non-Admin Reason: No Insulin Coverage Melatonin (Melatonin 3 Mg Tablet) 6 mg PO BEDTIME PRN PRN Reason: Insomnia Last Admin: 01/31/22 19:50 Dose: 6 mg Documented By: GENIE Metformin HCl (Metformin Hcl 500 Mg Tablet) 500 mg PO BIDWM [facility] Last Admin: 02/07/22 16:58 Dose: 500 mg Documented By: SHAKEEL Neomycin/Polymyxin/Hydrocortisone (Neomycin/Polymyxin/Hc Otic Melanie 10 Ml Drpbtl) 3 drop EAR-RIGHT QID [facility] Last Admin: 02/07/22 21:17 Dose: Not Given Documented By: BLADIMIR Non-Admin Reason: Patient Refused Olanzapine (Olanzapine Odt 10 Mg Tab.Rapdis) 5 mg TRANSLINGU BID PRN PRN Reason: agitation, psychosis Last Admin: 01/25/22 20:26 Dose: 5 mg Documented By: GENIE Omeprazole (Omeprazole 20 Mg Capsule.Dr) 20 mg PO DAILY@0630 [facility] Last Admin: 02/08/22 05:45 Dose: 20 mg Documented By: BLADIMIR Senna (Sennosides 8.6 Mg Tablet) 17.2 mg PO BEDTIME PRN PRN Reason: Constipation Sildenafil Citrate (Sildenafil Citrate 20 Mg Tablet) 20 mg PO TID [facility] Last Admin: 02/07/22 19:41 Dose: 20 mg Documented By: BLADIMIR Sitagliptin Phosphate (Sitagliptin Phosphate 100 Mg Tablet) 100 mg PO DAILY [facility] Last Admin: 02/07/22 07:55 Dose: 100 mg Documented By: SHAKEEL Sodium Chloride (0.9 % Sodium Chloride Flush 3 Ml Syringe) 3 ml IVFLUSH QSHIFT [facility] Last Admin: 02/08/22 00:38 Dose: Not Given Documented By: BLADIMIR Non-Admin Reason: No Access Labs CBC & Chem 7: 01/16/22 05:35 02/04/22 15:53 Labs: Laboratory Results - last 24 hr 02/07/22 02/07/22 02/07/22 11:01 15:49 20:16 POC Glucose 120 H 184 H 140 H 02/08/22 08:14 POC Glucose 111 Assessment and Plan (1) Schizo affective schizophrenia: Status: Acute (2) Pulmonary hypertension: Status: Acute (3) Acute CHF: Status: Acute Plan 61 yo M from [facility] resident with schizophrenia, DM2, possible COPD/asthma [not formally diagnosed] p/w hypoxia + dyspnea found to have severe pulmonary HTN/R-sided HF. essentially no change in care today, awaiting placement pulmonary HTN R-sided HF - started on sildenafil by Pulmonology -? PO furosemide - outpt f/u with Pulm with consideration of R-sided cath COPD/asthma, provisional diagnosis - outpt PFTs - continue nebs - off steroids - completed doxy -Off O2 with good O2 saturation DM2 - basal/bolus insulin - sitagliptin, metformin schizoaffective disorder - no behavioral issues at this time? - continue VPA, haloperidol - seen by psych, added prn meds? HLD - continue statin? GERD - continue Prilosec VTE ppx - LMWH dispo - cannot go back to Residential, plan to dc to LTC, HCP invoked, awaiting bed.?? out of bed, ambulate ? Need for inpatient stay: pending safe dispo to LTC when bed available, despite his insistence, he cannot go back to the detention Has Med treatment plan NOT Garcia order - could give IM Haldol if refuses po Quality Stroke Does the patient have a stroke diagnosis?: No VTE Prior VTE?: No VTE Risk Level:: Medical - moderate - high VTE Device Contraindication: Treatment Not Indicated VTE Drug Contraindication: N/A - Med Ordered
--- NOTE | 2022-02-08 10:20 | MHC.CM.PN ---
ADDITIONAL REFERRALS SENT TO THE [facility], [facility] DOES TAKE PT'S W/MENTAL HEALTH DIAGNOSES, CM AWAITING RESPONSE.
[2022-02-08 11:29] LABS: Glucose, Whole Blood 197 mg/dL (60-115)
[2022-02-08 12:00] VITALS: BP 97/58; PULSE 73; RESP 18; TEMP 36.1; O2SAT 95
[2022-02-08] MEDS: Insulin Lispro 100 UNIT/ML 3 ML VIAL SUBCUT ×2 (12:10→19:44)
[2022-02-08] MEDS: Sildenafil Citrate 20 MG TABLET PO ×2 (15:24→19:42)
[2022-02-08] MEDS: metFORMIN HCl 500 MG TABLET PO (15:24)
[2022-02-08] MEDS: Furosemide 40 MG TABLET PO ×2 (15:25→19:42)
[2022-02-08] MEDS: Divalproex Sodium ER 250 MG TAB.ER.24H PO (15:25)
[2022-02-08 15:29] VITALS: BP 88/66; PULSE 70; RESP 18; TEMP 36.4; O2SAT 97
[2022-02-08 15:48] LABS: Glucose, Whole Blood 152 mg/dL (60-115)
--- NOTE | 2022-02-08 17:32 | PC.NURSE ---
Patient refused all schedule Am medications and 4pm insulin coverage after multiple attempts. Dr. Angel updated. Will continue to monitor.
[2022-02-08 19:19] VITALS: BP 98/68; PULSE 68; RESP 16; TEMP 36.3; O2SAT 97
[2022-02-08 19:29] LABS: Glucose, Whole Blood 159 mg/dL (60-115)
[2022-02-08] MEDS: Enoxaparin Sodium 40 MG/0.4 ML SYRINGE SUBCUT (19:42)
[2022-02-08] MEDS: Ferrous Sulfate 324 MG TABLET.DR PO (19:42)
[2022-02-08] MEDS: HaloperidoL 5 MG TABLET 10 MG PO (19:42)
[2022-02-08] MEDS: Insulin Glargine,Hum.rec.anlog 100 UNIT/ML 10 ML VIAL 10 UNIT SUBCUT (19:43)
[2022-02-08 23:35] VITALS: BP 111/62; PULSE 70; RESP 18; TEMP 36.3; O2SAT 94
[2022-02-09 04:00] VITALS: BP 96/67; PULSE 84; RESP 18; TEMP 36.6; O2SAT 96
[2022-02-09 07:58] VITALS: BP 97/68; PULSE 76; RESP 16; TEMP 36.3; O2SAT 94
--- NOTE | 2022-02-09 08:51 | P.PNIM_ITS ---
Subjective Subjective Date of Service: 02/09/22 Interval History: Seen and examined this morning No sob, cooperated this morning. Review of Systems no sob no fever Physical Exam Vital Signs: Vital Signs: Last Vital Signs Temp 97.3 F 02/09/22 07:58 Pulse 76 02/09/22 07:58 Resp 16 02/09/22 07:58 BP 97/68 02/09/22 07:58 Pulse Ox 94 02/09/22 07:58 O2 Del Method 02/09/22 07:58 O2 Flow Rate 2 02/07/22 20:00 BMI result Body Mass Index 21.8 Const: Other: General: AO X 2, no acute distress Resp: CTA bilateral CVS: S1,S2,RRR GI: +BS, NT, no distention Skin: No rash Neuro: motor grossly intact Psych: flat affect Objective Data Active Medications Acetaminophen (Acetaminophen 325 Mg Tablet) 650 mg PO Q6H PRN PRN Reason: Pain, Mild (Pain Scale 1-3) Atorvastatin Calcium (Atorvastatin Calcium 40 Mg Tablet) 40 mg PO DAILY [facility] Last Admin: 02/08/22 09:22 Dose: Not Given Documented By: CIRO Non-Admin Reason: Patient Refused Dextrose (Dextrose 50 % 25 Gm/50 Ml Syringe) 25 gm IVPUSH Q15M PRN; Protocol PRN Reason: per Hypoglycemia Standing Ord. Divalproex Sodium (Divalproex Sodium Er 250 Mg Tab.Er.24h) 250 mg PO DAILY@1700 [facility] Last Admin: 02/08/22 15:25 Dose: 250 mg Documented By: CIRO Divalproex Sodium (Divalproex Sodium Er 500 Mg Tab.Er.24h) 500 mg PO DAILY [facility] Last Admin: 02/08/22 09:22 Dose: Not Given Documented By: CIRO Non-Admin Reason: Patient Refused Enoxaparin Sodium (Enoxaparin Sodium 40 Mg/0.4 Ml Syringe) 40 mg SUBCUT Q24H [facility] Last Admin: 02/08/22 19:42 Dose: 40 mg Documented By: ESTELLE Ferrous Sulfate (Ferrous Sulfate 324 Mg Tablet.) 324 mg PO BID [facility] Last Admin: 02/08/22 19:42 Dose: 324 mg Documented By: ESTELLE Fluticasone Propionate (Fluticasone Propionate Nasal 16 Gm [place]) 1 spray NOSTRIL-B BID [facility] Last Admin: 02/08/22 20:58 Dose: Not Given Documented By: ESTELLE Non-Admin Reason: Patient Refused Furosemide (Furosemide 40 Mg Tablet) 40 mg PO BID@0900,1800 [facility]; Protocol Last Admin: 02/08/22 19:42 Dose: 40 mg Documented By: ESTELLE Glucose (Glucose Gel 15 Gm Gel..Gram.) 15 gm PO Q15M PRN; Protocol PRN Reason: per Hypoglycemia Standing Ord. Haloperidol (Haloperidol 5 Mg Tablet) 10 mg PO BID [facility] Last Admin: 02/08/22 19:42 Dose: 10 mg Documented By: ESTELLE Insulin Glargine (Insulin Glargine,Hum.Rec.Anlog 100 Unit/Ml 10 Ml Vial) 10 unit SUBCUT BEDTIME [facility] Last Admin: 02/08/22 19:43 Dose: 10 unit Documented By: ESTELLE Insulin Human Lispro (Insulin Lispro 100 Unit/Ml 3 Ml Vial) 0 unit SUBCUT QID ACHS [facility]; Protocol Last Admin: 02/08/22 19:44 Dose: 2 unit Documented By: ESTELLE Comments: sliding scale Melatonin (Melatonin 3 Mg Tablet) 6 mg PO BEDTIME PRN PRN Reason: Insomnia Last Admin: 01/31/22 19:50 Dose: 6 mg Documented By: GENIE Metformin HCl (Metformin Hcl 500 Mg Tablet) 500 mg PO BIDWM [facility] Last Admin: 02/08/22 15:24 Dose: 500 mg Documented By: MARIANELA-CHARG Neomycin/Polymyxin/Hydrocortisone (Neomycin/Polymyxin/Hc Otic Melanie 10 Ml Drpbtl) 3 drop EAR-RIGHT QID [facility] Last Admin: 02/08/22 20:58 Dose: Not Given Documented By: ESTELLE Non-Admin Reason: Patient Refused Olanzapine (Olanzapine Odt 10 Mg Tab.Rapdis) 5 mg TRANSLINGU BID PRN PRN Reason: agitation, psychosis Last Admin: 01/25/22 20:26 Dose: 5 mg Documented By: GENIE Omeprazole (Omeprazole 20 Mg Capsule.Dr) 20 mg PO DAILY@0630 [facility] Last Admin: 02/09/22 06:32 Dose: Not Given Documented By: ESTELLE Non-Admin Reason: Patient Refused Senna (Sennosides 8.6 Mg Tablet) 17.2 mg PO BEDTIME PRN PRN Reason: Constipation Sildenafil Citrate (Sildenafil Citrate 20 Mg Tablet) 20 mg PO TID [facility] Last Admin: 02/08/22 19:42 Dose: 20 mg Documented By: ESTELLE Sitagliptin Phosphate (Sitagliptin Phosphate 100 Mg Tablet) 100 mg PO DAILY [facility] Last Admin: 02/08/22 09:24 Dose: Not Given Documented By: CIRO Non-Admin Reason: Patient Refused Sodium Chloride (0.9 % Sodium Chloride Flush 3 Ml Syringe) 3 ml IVFLUSH QSHIFT [facility] Last Admin: 02/09/22 00:11 Dose: Not Given Documented By: ESTELLE Non-Admin Reason: No Access Labs CBC & Chem 7: 01/16/22 05:35 02/04/22 15:53 Labs: Laboratory Results - last 24 hr 02/08/22 02/08/22 02/08/22 11:11 15:33 19:23 POC Glucose 197 H 152 H 159 H Assessment and Plan (1) Schizo affective schizophrenia: Status: Acute (2) Pulmonary hypertension: Status: Acute (3) Acute CHF: Status: Acute Plan 61 yo M from assisted resident with schizophrenia, DM2, possible COPD/asthma [not formally diagnosed] p/w hypoxia + dyspnea found to have severe pulmonary HTN/R-sided HF. essentially no change in care today, still awaiting placement #pulmonary HTN R-sided HF - started on sildenafil by Pulmonology -? PO furosemide - outpt f/u with Pulm with consideration of R-sided cath #COPD/asthma, provisional diagnosis - outpt PFTs - continue nebs - off steroids - completed doxy -Off O2 with good O2 saturation #DM2 - basal/bolus insulin - sitagliptin, metformin schizoaffective disorder - no behavioral issues at this time? - continue VPA, haloperidol - seen by psych, added prn meds? #HLD - continue statin? GERD - continue Prilosec VTE ppx - LMWH dispo - [facility], plan to dc to LTC, HCP invoked, awaiting bed.?? out of bed, ambulate ? Need for inpatient stay: pending safe dispo to LTC when bed available, despite his insistence, he cannot go back to the assisted Has Med treatment plan NOT Garcia order - could give IM Haldol if refuses po Quality Stroke Does the patient have a stroke diagnosis?: No VTE Prior VTE?: No VTE Risk Level:: Medical - moderate - high VTE Device Contraindication: Treatment Not Indicated VTE Drug Contraindication: N/A - Med Ordered
[2022-02-09 11:41] LABS: Glucose, Whole Blood 122 mg/dL (60-115)
[2022-02-09] MEDS: Ferrous Sulfate 324 MG TABLET.DR PO ×2 (14:40→21:16)
[2022-02-09] MEDS: metFORMIN HCl 500 MG TABLET PO (14:41)
[2022-02-09] MEDS: Divalproex Sodium ER 500 MG TAB.ER.24H PO (14:41)
[2022-02-09] MEDS: Atorvastatin Calcium 40 MG TABLET PO (14:41)
[2022-02-09] MEDS: HaloperidoL 5 MG TABLET 10 MG PO ×2 (14:41→21:16)
[2022-02-09] MEDS: Sildenafil Citrate 20 MG TABLET PO ×2 (14:42→21:16)
[2022-02-09] MEDS: SITagliptin Phosphate 100 MG TABLET PO (14:42)
[2022-02-09] MEDS: OLANZapine ODT 10 MG TAB.RAPDIS 5 MG TRANSLINGU (14:45)
[2022-02-09] MEDS: Omeprazole 20 MG CAPSULE.DR PO (14:45)
[2022-02-09 16:53] LABS: Glucose, Whole Blood 165 mg/dL (60-115)
[2022-02-09] MEDS: Insulin Lispro 100 UNIT/ML 3 ML VIAL SUBCUT ×2 (17:05→21:15)
[2022-02-09] MEDS: Furosemide 40 MG TABLET PO (17:06)
[2022-02-09] MEDS: Divalproex Sodium ER 250 MG TAB.ER.24H PO (17:12)
[2022-02-09 19:10] VITALS: BP 103/62; PULSE 63; RESP 18; TEMP 36.4; O2SAT 94
[2022-02-09 20:07] LABS: Glucose, Whole Blood 172 mg/dL (60-115)
[2022-02-09] MEDS: Insulin Glargine,Hum.rec.anlog 100 UNIT/ML 10 ML VIAL 10 UNIT SUBCUT (21:15)
[2022-02-09 23:41] VITALS: BP 88/50; PULSE 70; RESP 18; TEMP 36.2; O2SAT 92
[2022-02-10 03:36] VITALS: BP 110/78; PULSE 72; RESP 20; TEMP 36.4; O2SAT 95
[2022-02-10 07:10] VITALS: BP 99/63; PULSE 72; RESP 18; TEMP 36.8; O2SAT 90
[2022-02-10 07:25] LABS: Glucose, Whole Blood 158 mg/dL (60-115)
[2022-02-10] MEDS: HaloperidoL 5 MG TABLET 10 MG PO ×2 (07:57→19:48)
--- NOTE | 2022-02-10 11:05 | HO.PM.IMPN ---
Subjective Subjective Date of Service: 02/10/22 Interval History: Seen and examined this morning no change, labile mood Review of Systems no sob no fever Physical Exam Vital Signs: Vital Signs: Last Vital Signs Temp 98.2 F 02/10/22 07:10 Pulse 72 02/10/22 07:10 Resp 18 02/10/22 07:10 BP 99/63 02/10/22 07:10 Pulse Ox 90 L 02/10/22 07:10 O2 Del Method 02/10/22 07:10 O2 Flow Rate 2 02/07/22 20:00 BMI result Body Mass Index 21.8 Const: Other: General: AO X 2, no acute distress Resp: CTA bilateral CVS: S1,S2,RRR GI: +BS, NT, no distention Skin: No rash Neuro: motor grossly intact Psych: flat affect Objective Data Active Medications Acetaminophen (Acetaminophen 325 Mg Tablet) 650 mg PO Q6H PRN PRN Reason: Pain, Mild (Pain Scale 1-3) Atorvastatin Calcium (Atorvastatin Calcium 40 Mg Tablet) 40 mg PO DAILY [facility] Last Admin: 02/10/22 08:00 Dose: Not Given Documented By: WILNER Non-Admin Reason: Patient Refused Dextrose (Dextrose 50 % 25 Gm/50 Ml Syringe) 25 gm IVPUSH Q15M PRN; Protocol PRN Reason: per Hypoglycemia Standing Ord. Divalproex Sodium (Divalproex Sodium Er 250 Mg Tab.Er.24h) 250 mg PO DAILY@1700 [facility] Last Admin: 02/09/22 17:12 Dose: 250 mg Documented By: CIRO Divalproex Sodium (Divalproex Sodium Er 500 Mg Tab.Er.24h) 500 mg PO DAILY [facility] Last Admin: 02/10/22 08:00 Dose: Not Given Documented By: WILNER Non-Admin Reason: Patient Refused Enoxaparin Sodium (Enoxaparin Sodium 40 Mg/0.4 Ml Syringe) 40 mg SUBCUT Q24H [facility] Last Admin: 02/09/22 21:19 Dose: Not Given Documented By: SAVAGE Non-Admin Reason: Patient Refused Ferrous Sulfate (Ferrous Sulfate 324 Mg Tablet.) 324 mg PO BID [facility] Last Admin: 02/10/22 08:01 Dose: Not Given Documented By: WILNER Non-Admin Reason: Patient Refused Fluticasone Propionate (Fluticasone Propionate Nasal 16 Gm [place]) 1 spray NOSTRIL-B BID [facility] Last Admin: 02/10/22 08:01 Dose: Not Given Documented By: WILNER Non-Admin Reason: Patient Refused Furosemide (Furosemide 40 Mg Tablet) 40 mg PO BID@0900,1800 [facility]; Protocol Last Admin: 02/10/22 08:01 Dose: Not Given Documented By: WILENR Non-Admin Reason: Patient Refused Glucose (Glucose Gel 15 Gm Gel..Gram.) 15 gm PO Q15M PRN; Protocol PRN Reason: per Hypoglycemia Standing Ord. Haloperidol (Haloperidol 5 Mg Tablet) 10 mg PO BID [facility] Last Admin: 02/10/22 07:57 Dose: 10 mg Documented By: WILNER Insulin Glargine (Insulin Glargine,Hum.Rec.Anlog 100 Unit/Ml 10 Ml Vial) 10 unit SUBCUT BEDTIME [facility] Last Admin: 02/09/22 21:15 Dose: 10 unit Documented By: NICRISScooby Insulin Human Lispro (Insulin Lispro 100 Unit/Ml 3 Ml Vial) 0 unit SUBCUT QIDACHS [facility]; Protocol Last Admin: 02/10/22 08:00 Dose: Not Given Documented By: WILNER Non-Admin Reason: Patient Refused Melatonin (Melatonin 3 Mg Tablet) 6 mg PO BEDTIME PRN PRN Reason: Insomnia Last Admin: 01/31/22 19:50 Dose: 6 mg Documented By: GENIE Metformin HCl (Metformin Hcl 500 Mg Tablet) 500 mg PO BIDWM [facility] Last Admin: 02/10/22 08:00 Dose: Not Given Documented By: WILNER Non-Admin Reason: Patient Refused Neomycin/Polymyxin/Hydrocortisone (Neomycin/Polymyxin/Hc Otic Melanie 10 Ml Drpbtl) 3 drop EAR-RIGHT QID [facility] Last Admin: 02/10/22 08:01 Dose: Not Given Documented By: WILNER Non-Admin Reason: Patient Refused Olanzapine (Olanzapine Odt 10 Mg Tab.Rapdis) 5 mg TRANSLINGU BID PRN PRN Reason: agitation, psychosis Last Admin: 02/09/22 14:45 Dose: 5 mg Documented By: CIRO Omeprazole (Omeprazole 20 Mg Capsule.) 20 mg PO DAILY@0630 [facility] Last Admin: 02/10/22 06:12 Dose: Not Given Documented By: SAVAGE Non-Admin Reason: Patient Refused Senna (Sennosides 8.6 Mg Tablet) 17.2 mg PO BEDTIME PRN PRN Reason: Constipation Sildenafil Citrate (Sildenafil Citrate 20 Mg Tablet) 20 mg PO TID [facility] Last Admin: 02/10/22 08:01 Dose: Not Given Documented By: WILNER Non-Admin Reason: Patient Refused Sitagliptin Phosphate (Sitagliptin Phosphate 100 Mg Tablet) 100 mg PO DAILY [facility] Last Admin: 02/10/22 08:01 Dose: Not Given Documented By: WILNER Non-Admin Reason: Patient Refused Sodium Chloride (0.9 % Sodium Chloride Flush 3 Ml Syringe) 3 ml IVFLUSH QSHIFT [facility] Last Admin: 02/10/22 07:19 Dose: Not Given Documented By: WILNER Non-Admin Reason: No Access Labs CBC & Chem 7: 01/16/22 05:35 02/04/22 15:53 Labs: Laboratory Results - last 24 hr 02/09/22 02/09/22 02/09/22 11:36 15:12 19:13 POC Glucose 122 H 165 H 172 H 02/10/22 07:08 POC Glucose 158 H Assessment and Plan (1) Schizo affective schizophrenia: Status: Acute (2) Otitis externa: Status: Acute Plan 61 yo M from [facility] resident with schizophrenia, DM2, possible COPD/asthma [not formally diagnosed] p/w hypoxia + dyspnea found to have severe pulmonary HTN/R-sided HF. essentially no change in care today, still awaiting placement #pulmonary HTN R-sided HF - started on sildenafil by Pulmonology -? PO furosemide - outpt f/u with Pulm with consideration of R-sided cath #COPD/asthma, provisional diagnosis - outpt PFTs - continue nebs - off steroids - completed doxy -Off O2 but O2 sat is marginal and therefore need to put oxygen on #DM2 - basal/bolus insulin - sitagliptin, metformin schizoaffective disorder - no behavioral issues at this time? - continue VPA, haloperidol - seen by psych, added prn meds? #HLD - continue statin? GERD - continue Prilosec VTE ppx - LMWH dispo - cannot go back to [facility], plan to dc to [facility]TC, HCP invoked, awaiting bed.?? out of bed, ambulate ? Need for inpatient stay: pending safe dispo to LTC when bed available, despite his insistence, [facility] cannot [facility] to the [facility] Has Med treatment plan NOT Jose order - could give IM Haldol if refuses po Quality Stroke Does the patient have a stroke diagnosis?: No VTE Prior VTE?: No VTE Risk Level:: Medical - moderate - high VTE Device Contraindication: Treatment Not Indicated VTE Drug Contraindication: N/A - Med Ordered
[2022-02-10 11:41] LABS: Glucose, Whole Blood 189 mg/dL (60-115)
[2022-02-10] MEDS: Insulin Lispro 100 UNIT/ML 3 ML VIAL SUBCUT ×2 (11:48→19:47)
[2022-02-10] MEDS: Sildenafil Citrate 20 MG TABLET PO ×2 (15:11→19:48)
[2022-02-10 15:51] VITALS: BP 95/55; PULSE 92; RESP 17; TEMP 36.3; O2SAT 92
[2022-02-10 16:16] LABS: Glucose, Whole Blood 235 mg/dL (60-115)
[2022-02-10] MEDS: metFORMIN HCl 500 MG TABLET PO (16:53)
[2022-02-10 19:32] VITALS: BP 106/60; PULSE 65; RESP 16; TEMP 36.4; O2SAT 94
[2022-02-10] MEDS: Ferrous Sulfate 324 MG TABLET.DR PO (19:48)
[2022-02-10] MEDS: Insulin Glargine,Hum.rec.anlog 100 UNIT/ML 10 ML VIAL 10 UNIT SUBCUT (19:48)
[2022-02-10 20:07] LABS: Glucose, Whole Blood 192 mg/dL (60-115)
[2022-02-11] MEDS: Omeprazole 20 MG CAPSULE.DR PO (05:35)
[2022-02-11 07:21] VITALS: BP 108/70; PULSE 70; RESP 18; TEMP 36.5; O2SAT 92
[2022-02-11 07:34] LABS: Glucose, Whole Blood 136 mg/dL (60-115)
--- NOTE | 2022-02-11 08:12 | P.PNIM_ITS ---
Subjective Subjective Date of Service: 02/11/22 Interval History: Seen and examined this morning no change, labile mood, upset and wants to be discharged Review of Systems no sob no fever Physical Exam Vital Signs: Vital Signs: Last Vital Signs Temp 97.7 F 02/11/22 07:21 Pulse 70 02/11/22 07:21 Resp 18 02/11/22 07:21 BP 108/70 02/11/22 07:21 Pulse Ox 92 02/11/22 07:21 O2 Del Method 02/11/22 07:21 O2 Flow Rate 2 02/07/22 20:00 BMI result Body Mass Index 21.8 Const: Other: General: AO X 2, no acute distress Resp: CTA bilateral CVS: S1,S2,RRR GI: +BS, NT, no distention Skin: No rash Neuro: motor grossly intact Psych: flat affect Objective Data Active Medications Acetaminophen (Acetaminophen 325 Mg Tablet) 650 mg PO Q6H PRN PRN Reason: Pain, Mild (Pain Scale 1-3) Atorvastatin Calcium (Atorvastatin Calcium 40 Mg Tablet) 40 mg PO DAILY [facility] Last Admin: 02/10/22 08:00 Dose: Not Given Documented By: WILNER Non-Admin Reason: Patient Refused Dextrose (Dextrose 50 % 25 Gm/50 Ml Syringe) 25 gm IVPUSH Q15M PRN; Protocol PRN Reason: per Hypoglycemia Standing Ord. Divalproex Sodium (Divalproex Sodium Er 250 Mg Tab.Er.24h) 250 mg PO DAILY@1700 [facility] Last Admin: 02/10/22 16:59 Dose: Not Given Documented By: WILNER Non-Admin Reason: Patient Refused Divalproex Sodium (Divalproex Sodium Er 500 Mg Tab.Er.24h) 500 mg PO DAILY [facility] Last Admin: 02/10/22 08:00 Dose: Not Given Documented By: WILNER Non-Admin Reason: Patient Refused Enoxaparin Sodium (Enoxaparin Sodium 40 Mg/0.4 Ml Syringe) 40 mg SUBCUT Q24H [facility] Last Admin: 02/10/22 19:51 Dose: Not Given Documented By: DENISE Non-Admin Reason: Patient Refused Ferrous Sulfate (Ferrous Sulfate 324 Mg [place].) 324 mg PO BID [facility] Last Admin: 02/10/22 19:48 Dose: 324 mg Documented By: DENISE Fluticasone Propionate (Fluticasone Propionate Nasal 16 Gm [place]) 1 spray NOSTRIL-B BID [facility] Last Admin: 02/10/22 19:51 Dose: Not Given Documented By: DENISE Non-Admin Reason: Patient Refused Furosemide (Furosemide 40 Mg Tablet) 40 mg PO BID@0900,1800 [facility]; Protocol Last Admin: 02/10/22 17:01 Dose: Not Given Documented By: WILNER Non-Admin Reason: refused/low BP Glucose (Glucose Gel 15 Gm Gel..Gram.) 15 gm PO Q15M PRN; Protocol PRN Reason: per Hypoglycemia Standing Ord. Haloperidol (Haloperidol 5 Mg Tablet) 10 mg PO BID [facility] Last Admin: 02/10/22 19:48 Dose: 10 mg Documented By: DENISE Insulin Glargine (Insulin Glargine,Hum.Rec.Anlog 100 Unit/Ml 10 Ml Vial) 10 unit SUBCUT BEDTIME [facility] Last Admin: 02/10/22 19:48 Dose: 10 unit Documented By: DENISE Insulin Human Lispro (Insulin Lispro 100 Unit/Ml 3 Ml Vial) 0 unit SUBCUT QIDACHS [facility]; Protocol Last Admin: 02/11/22 07:24 Dose: Not Given Documented By: WILNER Non-Admin Reason: No Insulin Coverage Melatonin (Melatonin 3 Mg Tablet) 6 mg PO BEDTIME PRN PRN Reason: Insomnia Last Admin: 01/31/22 19:50 Dose: 6 mg Documented By: GENIE Metformin HCl (Metformin Hcl 500 Mg Tablet) 500 mg PO BIDWM [facility] Last Admin: 02/10/22 16:53 Dose: 500 mg Documented By: WILNER Neomycin/Polymyxin/Hydrocortisone (Neomycin/Polymyxin/Hc Otic Melanie 10 Ml Drpbtl) 3 drop EAR-RIGHT QID [facility] Last Admin: 02/10/22 19:51 Dose: Not Given Documented By: DENISE Non-Admin Reason: Patient Refused Olanzapine (Olanzapine Odt 10 Mg Tab.Rapdis) 5 mg TRANSLINGU BID PRN PRN Reason: agitation, psychosis Last Admin: 02/09/22 14:45 Dose: 5 mg Documented By: CIRO Omeprazole (Omeprazole 20 Mg Capsule.Dr) 20 mg PO DAILY@0630 [facility] Last Admin: 02/11/22 05:35 Dose: 20 mg Documented By: DENISE Senna (Sennosides 8.6 Mg Tablet) 17.2 mg PO BEDTIME PRN PRN Reason: Constipation Sildenafil Citrate (Sildenafil Citrate 20 Mg Tablet) 20 mg PO TID [facility] Last Admin: 02/10/22 19:48 Dose: 20 mg Documented By: DENISE Sitagliptin Phosphate (Sitagliptin Phosphate 100 Mg Tablet) 100 mg PO DAILY [facility] Last Admin: 02/10/22 08:01 Dose: Not Given Documented By: WILNER Non-Admin Reason: Patient Refused Sodium Chloride (0.9 % Sodium Chloride Flush 3 Ml Syringe) 3 ml IVFLUSH QSHIFT [facility] Last Admin: 02/11/22 07:01 Dose: Not Given Documented By: WILNER Non-Admin Reason: No Access Labs CBC & Chem 7: 01/16/22 05:35 02/04/22 15:53 Labs: Laboratory Results - last 24 hr 02/10/22 02/10/22 02/10/22 11:11 15:54 19:35 POC Glucose 189 H 235 H 192 H 02/11/22 07:20 POC Glucose 136 H Assessment and Plan (1) Schizo affective schizophrenia: Status: Acute (2) Otitis externa: Status: Acute Plan 61 yo M from care home resident with schizophrenia, DM2, possible COPD/asthma [not formally diagnosed] p/w hypoxia + dyspnea found to have severe pulmonary HTN/R-sided HF. essentially no change in care today, still awaiting placement #pulmonary HTN R-sided HF - started on sildenafil by Pulmonology -? PO furosemide - outpt f/u with Pulm with consideration of R-sided cath #COPD/asthma, provisional diagnosis - outpt PFTs - continue nebs - off steroids - completed doxy -wears O2 off and on, 92 on room air #DM2 - basal/bolus insulin - sitagliptin, metformin schizoaffective disorder - no behavioral issues at this time? - continue VPA, haloperidol - seen by psych, added prn meds? #HLD - continue statin? GERD - continue Prilosec VTE ppx - [facility]WH dispo - cannot go back to [facility], plan to dc to LTC, HCP invoked, awaiting bed.?? out of bed, ambulate ? Need for inpatient stay: pending safe dispo to LTC when bed available, despite his insistence, he cannot go back to the care home Has Med treatment plan NOT Jose order - could give IM Haldol if refuses po Quality Stroke Does the patient have a stroke diagnosis?: No VTE Prior VTE?: No VTE Risk Level:: Medical - moderate - high VTE Device Contraindication: Treatment Not Indicated VTE Drug Contraindication: N/A - Med Ordered
[2022-02-11] MEDS: HaloperidoL 5 MG TABLET 10 MG PO ×2 (08:52→20:51)
[2022-02-11] MEDS: Furosemide 40 MG TABLET PO ×2 (08:52→20:54)
[2022-02-11] MEDS: Divalproex Sodium ER 500 MG TAB.ER.24H PO (08:52)
[2022-02-11] MEDS: Atorvastatin Calcium 40 MG TABLET PO (08:52)
[2022-02-11] MEDS: metFORMIN HCl 500 MG TABLET PO ×2 (08:52→20:54)
[2022-02-11] MEDS: Ferrous Sulfate 324 MG TABLET.DR PO ×2 (08:53→20:53)
[2022-02-11] MEDS: SITagliptin Phosphate 100 MG TABLET PO (08:54)
[2022-02-11] MEDS: Sildenafil Citrate 20 MG TABLET PO ×2 (08:54→20:51)
[2022-02-11 11:16] LABS: Glucose, Whole Blood 184 mg/dL (60-115)
[2022-02-11] MEDS: Insulin Lispro 100 UNIT/ML 3 ML VIAL SUBCUT ×3 (11:53→20:53)
[2022-02-11 15:43] VITALS: BP 101/59; PULSE 66; RESP 17; TEMP 36.6; O2SAT 94
[2022-02-11 16:41] LABS: Glucose, Whole Blood 224 mg/dL (60-115)
[2022-02-11 20:19] LABS: Glucose, Whole Blood 168 mg/dL (60-115)
[2022-02-11] MEDS: Insulin Glargine,Hum.rec.anlog 100 UNIT/ML 10 ML VIAL 10 UNIT SUBCUT (20:53)
[2022-02-11] MEDS: Divalproex Sodium ER 250 MG TAB.ER.24H PO (20:55)
[2022-02-12 07:09] VITALS: BP 101/64; PULSE 65; RESP 16; TEMP 36.4; O2SAT 96
[2022-02-12 07:31] LABS: Glucose, Whole Blood 170 mg/dL (60-115)
[2022-02-12] MEDS: Insulin Lispro 100 UNIT/ML 3 ML VIAL SUBCUT ×3 (07:59→21:12)
--- NOTE | 2022-02-12 09:23 | P.PNIM_ITS ---
Subjective Subjective Date of Service: 02/12/22 Interval History: Seen and examined this morning interval history: has no sob, no chest pain, no dizziness, just upset about being here Review of Systems no sob no fever Physical Exam Vital Signs: Vital Signs: Last Vital Signs Temp 97.6 F 02/12/22 07:09 Pulse 65 02/12/22 07:09 Resp 16 02/12/22 07:09 BP 101/64 02/12/22 07:09 Pulse Ox 96 02/12/22 07:09 O2 Del Method 02/12/22 07:09 O2 Flow Rate 2 02/12/22 07:09 BMI result Body Mass Index 21.8 Const: Other: General: AO X 2, no acute distress Resp: CTA bilateral CVS: S1,S2,RRR GI: +BS, NT, no distention Skin: No rash Neuro: motor grossly intact Psych: flat affect Objective Data Active Medications Acetaminophen (Acetaminophen 325 Mg Tablet) 650 mg PO Q6H PRN PRN Reason: Pain, Mild (Pain Scale 1-3) Atorvastatin Calcium (Atorvastatin Calcium 40 Mg Tablet) 40 mg PO DAILY [facility] Last Admin: 02/11/22 08:52 Dose: 40 mg Documented By: WILNER Dextrose (Dextrose 50 % 25 Gm/50 Ml Syringe) 25 gm IVPUSH Q15M PRN; Protocol PRN Reason: per Hypoglycemia Standing Ord. Divalproex Sodium (Divalproex Sodium Er 250 Mg Tab.Er.24h) 250 mg PO DAILY@1700 [facility] Last Admin: 02/11/22 20:55 Dose: 250 mg Documented By: JUAN Divalproex Sodium (Divalproex Sodium Er 500 Mg Tab.Er.24h) 500 mg PO DAILY [facility] Last Admin: 02/11/22 08:52 Dose: 500 mg Documented By: WILNER Enoxaparin Sodium (Enoxaparin Sodium 40 Mg/0.4 Ml Syringe) 40 mg SUBCUT Q24H [facility] Last Admin: 02/11/22 21:54 Dose: Not Given Documented By: JUAN Non-Admin Reason: Patient Refused Ferrous Sulfate (Ferrous Sulfate 324 Mg Tablet.) 324 mg PO BID [facility] Last Admin: 02/11/22 20:53 Dose: 324 mg Documented By: JUAN Fluticasone Propionate (Fluticasone Propionate Nasal 16 Gm [place]) 1 spray NOSTRIL-B BID [facility] Last Admin: 02/11/22 21:55 Dose: Not Given Documented By: JUAN Non-Admin Reason: Patient Refused Furosemide (Furosemide 40 Mg Tablet) 40 mg PO BID@0900,1800 [facility]; Protocol Last Admin: 02/11/22 20:54 Dose: 40 mg Documented By: JUAN Glucose (Glucose Gel 15 Gm Gel..Gram.) 15 gm PO Q15M PRN; Protocol PRN Reason: per Hypoglycemia Standing Ord. Haloperidol (Haloperidol 5 Mg Tablet) 10 mg PO BID [facility] Last Admin: 02/11/22 20:51 Dose: 10 mg Documented By: JUAN Insulin Glargine (Insulin Glargine,Hum.Rec.Anlog 100 Unit/Ml 10 Ml Vial) 10 unit SUBCUT BEDTIME [facility] Last Admin: 02/11/22 20:53 Dose: 10 unit Documented By: JUAN Insulin Human Lispro (Insulin Lispro 100 Unit/Ml 3 Ml Vial) 0 unit SUBCUT QIDACHS [facility]; Protocol Last Admin: 02/12/22 07:59 Dose: 2 unit Documented By: TODD Melatonin (Melatonin 3 Mg Tablet) 6 mg PO BEDTIME PRN PRN Reason: Insomnia Last Admin: 01/31/22 19:50 Dose: 6 mg Documented By: GENIE Metformin HCl (Metformin Hcl 500 Mg Tablet) 500 mg PO BIDWM [facility] Last Admin: 02/11/22 20:54 Dose: 500 mg Documented By: JUAN Neomycin/Polymyxin/Hydrocortisone (Neomycin/Polymyxin/Hc Otic Melanie 10 Ml Drpbtl) 3 drop EAR-RIGHT QID [facility] Last Admin: 02/12/22 07:59 Dose: Not Given Documented By: TODD Non-Admin Reason: Patient Refused Olanzapine (Olanzapine Odt 10 Mg Tab.Rapdis) 5 mg TRANSLINGU BID PRN PRN Reason: agitation, psychosis Last Admin: 02/09/22 14:45 Dose: 5 mg Documented By: CIRO Omeprazole (Omeprazole 20 Mg Capsule.Dr) 20 mg PO DAILY@0630 [facility] Last Admin: 02/12/22 06:23 Dose: Not Given Documented By: KEVIN Non-Admin Reason: Patient Refused Senna (Sennosides 8.6 Mg Tablet) 17.2 mg PO BEDTIME PRN PRN Reason: Constipation Sildenafil Citrate (Sildenafil Citrate 20 Mg Tablet) 20 mg PO TID [facility] Last Admin: 02/11/22 20:51 Dose: 20 mg Documented By: JUAN Sitagliptin Phosphate (Sitagliptin Phosphate 100 Mg Tablet) 100 mg PO DAILY [facility] Last Admin: 02/11/22 08:54 Dose: 100 mg Documented By: WILNER Sodium Chloride (0.9 % Sodium Chloride Flush 3 Ml Syringe) 3 ml IVFLUSH QSHIFT [facility] Last Admin: 02/12/22 07:59 Dose: Not Given Documented By: TODD Non-Admin Reason: No Access Labs CBC & Chem 7: 01/16/22 05:35 02/04/22 15:53 Labs: Laboratory Results - last 24 hr 02/11/22 02/11/22 02/11/22 11:08 16:25 20:15 POC Glucose 184 H 224 H 168 H 02/12/22 07:12 POC Glucose 170 H Assessment and Plan (1) Schizo affective schizophrenia: Status: Acute (2) Otitis externa: Status: Acute Plan 61 [facility] M from [facility] with schizophrenia, DM2, possible COPD/asthma [not formally diagnosed] p/w hypoxia + dyspnea found to have severe pulmonary HTN/R-sided HF. essentially no change in care today, still awaiting placement #pulmonary HTN R-sided HF - started on sildenafil by Pulmonology -? PO furosemide - outpt f/u with Pulm with consideration of R-sided cath #COPD/asthma, provisional diagnosis - outpt PFTs - continue nebs - completed course steroids - completed doxy -wears O2 off and on, but always above 90 #DM2 - basal/bolus insulin - sitagliptin, metformin schizoaffective disorder - no behavioral issues at this time? - continue VPA, haloperidol - seen by psych, added prn meds? #HLD - continue statin? GERD - continue Prilosec VTE ppx - [facility]WH dispo - cannot go back to [facility], plan to dc to [facility]TC, HCP invoked, awaiting b ed.?? out of bed, ambulate ? Need for inpatient stay: pending safe dispo to LTC when bed available, despite his insistence, [facility] cannot [facility] to the [facility] Has Med treatment plan NOT Garcia order - could give IM Haldol if refuses po Quality Stroke Does the patient have a stroke diagnosis?: No VTE Prior VTE?: No VTE Risk Level:: Medical - moderate - high VTE Device Contraindication: Treatment Not Indicated VTE Drug Contraindication: N/A - Med Ordered
[2022-02-12] MEDS: Furosemide 40 MG TABLET PO ×2 (09:25→17:20)
[2022-02-12] MEDS: Ferrous Sulfate 324 MG TABLET.DR PO ×2 (09:25→21:14)
[2022-02-12] MEDS: HaloperidoL 5 MG TABLET 10 MG PO ×2 (09:25→21:14)
[2022-02-12] MEDS: Divalproex Sodium ER 500 MG TAB.ER.24H PO (09:25)
[2022-02-12] MEDS: Sildenafil Citrate 20 MG TABLET PO ×3 (09:25→21:13)
[2022-02-12] MEDS: Atorvastatin Calcium 40 MG TABLET PO (09:25)
[2022-02-12] MEDS: SITagliptin Phosphate 100 MG TABLET PO (09:25)
[2022-02-12] MEDS: metFORMIN HCl 500 MG TABLET PO ×2 (09:25→17:20)
[2022-02-12 11:45] LABS: Glucose, Whole Blood 125 mg/dL (60-115)
--- NOTE | 2022-02-12 15:20 | MHC.CM.PN ---
EMR REVIEWED, CM AWAITING TO HEAR IF [facility] WAS CONT'D W/ANTIPSYCHOTIC MEDS ADJUSTED, [facility] HAS BEEN THE ONLY FACILITY WILLING TO REVIEW PT ONCE [facility] IS RENEWED. CM WILL CONT TO FOLLOW AND EXPAND BED SEARCH NEEDED.
[2022-02-12 15:21] VITALS: BP 107/64; RESP 18; O2SAT 93
[2022-02-12 15:47] LABS: Glucose, Whole Blood 187 mg/dL (60-115)
[2022-02-12] MEDS: Divalproex Sodium ER 250 MG TAB.ER.24H PO (17:20)
[2022-02-12] MEDS: NeoMYCIN/Polymyxin/HC Otic Sus 10 ML DRPBTL 3 DROP EAR-RIGHT (17:22)
[2022-02-12 20:10] LABS: Glucose, Whole Blood 152 mg/dL (60-115)
[2022-02-12] MEDS: Insulin Glargine,Hum.rec.anlog 100 UNIT/ML 10 ML VIAL 10 UNIT SUBCUT (21:11)
[2022-02-12] MEDS: Enoxaparin Sodium 40 MG/0.4 ML SYRINGE SUBCUT (21:12)
[2022-02-13 07:13] VITALS: BP 100/72; PULSE 70; RESP 16; TEMP 36.6; O2SAT 91
[2022-02-13 07:35] LABS: Glucose, Whole Blood 141 mg/dL (60-115)
--- NOTE | 2022-02-13 09:59 | P.PNIM_ITS ---
Subjective Subjective Date of Service: 02/13/22 Interval History: Seen and examined this morning interval history:no change overnight Review of Systems no sob no fever Physical Exam Vital Signs: Vital Signs: Last Vital Signs Temp 97.9 F 02/13/22 07:13 Pulse 70 02/13/22 07:13 Resp 16 02/13/22 07:13 BP 100/72 02/13/22 07:13 Pulse Ox 91 L 02/13/22 07:13 O2 Del Method 02/13/22 07:13 O2 Flow Rate 2 02/12/22 07:09 BMI result Body Mass Index 21.8 Const: Other: General: AO X 2, no acute distress Resp: CTA bilateral CVS: S1,S2,RRR GI: +BS, NT, no distention Skin: No rash Neuro: motor grossly intact Psych: flat affect Objective Data Active Medications Acetaminophen (Acetaminophen 325 Mg Tablet) 650 mg PO Q6H PRN PRN Reason: Pain, Mild (Pain Scale 1-3) Atorvastatin Calcium (Atorvastatin Calcium 40 Mg Tablet) 40 mg PO DAILY [facility] Last Admin: 02/12/22 09:25 Dose: 40 mg Documented By: TODD Dextrose (Dextrose 50 % 25 Gm/50 Ml Syringe) 25 gm IVPUSH Q15M PRN; Protocol PRN Reason: per Hypoglycemia Standing Ord. Divalproex Sodium (Divalproex Sodium Er 250 Mg Tab.Er.24h) 250 mg PO DAILY@1700 [facility] Last Admin: 02/12/22 17:20 Dose: 250 mg Documented By: NATHAN Divalproex Sodium (Divalproex Sodium Er 500 Mg Tab.Er.24h) 500 mg PO DAILY [facility] Last Admin: 02/12/22 09:25 Dose: 500 mg Documented By: TODD Enoxaparin Sodium (Enoxaparin Sodium 40 Mg/0.4 Ml Syringe) 40 mg SUBCUT Q24H [facility] Last Admin: 02/12/22 21:12 Dose: 40 mg Documented By: NATHAN Ferrous Sulfate (Ferrous Sulfate 324 Mg Tablet.Dr) 324 mg PO BID [facility] Last Admin: 02/12/22 21:14 Dose: 324 mg Documented By: NATHAN Fluticasone Propionate (Fluticasone Propionate Nasal 16 Gm [place]) 1 spray NOSTRIL-B BID [facility] Last Admin: 02/12/22 21:15 Dose: Not Given Documented By: NATHAN Non-Admin Reason: Patient Refused Furosemide (Furosemide 40 Mg Tablet) 40 mg PO BID@0900,1800 [facility]; Protocol Last Admin: 02/12/22 17:20 Dose: 40 mg Documented By: NATHAN Glucose (Glucose Gel 15 Gm Gel..Gram.) 15 gm PO Q15M PRN; Protocol PRN Reason: per Hypoglycemia Standing Ord. Haloperidol (Haloperidol 5 Mg Tablet) 10 mg PO BID [facility] Last Admin: 02/12/22 21:14 Dose: 10 mg Documented By: NATHAN Insulin Glargine (Insulin Glargine,Hum.Rec.Anlog 100 Unit/Ml 10 Ml Vial) 10 unit SUBCUT BEDTIME [facility] Last Admin: 02/12/22 21:11 Dose: 10 unit Documented By: NATHAN Insulin Human Lispro (Insulin Lispro 100 Unit/Ml 3 Ml Vial) 0 unit SUBCUT QIDACHS [facility]; Protocol Last Admin: 02/13/22 08:04 Dose: Not Given Documented By: TODD Non-Admin Reason: No Insulin Coverage Melatonin (Melatonin 3 Mg Tablet) 6 mg PO BEDTIME PRN PRN Reason: Insomnia Last Admin: 01/31/22 19:50 Dose: 6 mg Documented By: GENIE Metformin HCl (Metformin Hcl 500 Mg Tablet) 500 mg PO BIDWM [facility] Last Admin: 02/12/22 17:20 Dose: 500 mg Documented By: NATHAN Neomycin/Polymyxin/Hydrocortisone (Neomycin/Polymyxin/Hc Otic Melanie 10 Ml Drpbtl) 3 drop EAR-RIGHT QID [facility] Last Admin: 02/12/22 21:14 Dose: Not Given Documented By: NATHAN Non-Admin Reason: Patient Refused Olanzapine (Olanzapine Odt 10 Mg Tab.Rapdis) 5 mg TRANSLINGU BID PRN PRN Reason: agitation, psychosis Last Admin: 02/09/22 14:45 Dose: 5 mg Documented By: CIRO Omeprazole (Omeprazole 20 Mg Capsule.) 20 mg PO DAILY@0630 [facility] Last Admin: 02/13/22 05:50 Dose: Not Given Documented By: KEVIN Non-Admin Reason: Patient Refused Senna (Sennosides 8.6 Mg Tablet) 17.2 mg PO BEDTIME PRN PRN Reason: Constipation Sildenafil Citrate (Sildenafil Citrate 20 Mg Tablet) 20 mg PO TID [facility] Last Admin: 02/12/22 21:13 Dose: 20 mg Documented By: NATHAN Sitagliptin Phosphate (Sitagliptin Phosphate 100 Mg Tablet) 100 mg PO DAILY [facility] Last Admin: 02/12/22 09:25 Dose: 100 mg Documented By: TODD Sodium Chloride (0.9 % Sodium Chloride Flush 3 Ml Syringe) 3 ml IVFLUSH QSHIFT [facility] Last Admin: 02/13/22 08:04 Dose: Not Given Documented By: TODD Non-Admin Reason: No Access Labs CBC & Chem 7: 01/16/22 05:35 02/04/22 15:53 Labs: Laboratory Results - last 24 hr 02/12/22 02/12/22 02/12/22 11:41 15:24 20:05 POC Glucose 125 H 187 H 152 H 02/13/22 07:15 POC Glucose 141 H Assessment and Plan (1) Schizo affective schizophrenia: Status: Acute (2) Otitis externa: Status: Acute Plan 61 yo M from senior care resident with schizophrenia, DM2, possible COPD/asthma [not formally diagnosed] p/w hypoxia + dyspnea found to have severe pulmonary HTN/R-sided HF. essentially no change in care today, still awaiting placement #pulmonary HTN R-sided HF - continue sildenafil as ordered by Pulmonology -? PO furosemide - outpt f/u with Pulm with consideration of R-sided cath #COPD/asthma, provisional diagnosis - outpt PFTs - continue nebs - completed course steroids - completed doxy -wears O2 off and on, but always above 90 #DM2 - basal/bolus insulin - sitagliptin, metformin schizoaffective disorder - no behavioral issues at this time? - continue VPA, haloperidol - seen by psych, added prn meds? #HLD - continue statin? GERD - continue Prilosec VTE ppx - LMWH (lovenox) dispo - [facility], plan to [facility] to [facility], HCP invoked, awaiting bed.?? out of bed, ambulate ? Need for inpatient stay: pending safe dispo to LTC when bed available, despite his insistence, he cannot go back to the senior care Has Med treatment plan NOT Garcia order - could give IM Haldol if refuses po Quality Stroke Does the patient have a stroke diagnosis?: No VTE Prior VTE?: No VTE Risk Level:: Medical - moderate - high VTE Device Contraindication: Treatment Not Indicated VTE Drug Contraindication: N/A - Med Ordered
[2022-02-13 11:12] VITALS: BP 101/71; PULSE 73; RESP 16; TEMP 36.1; O2SAT 95
[2022-02-13 11:20] LABS: Glucose, Whole Blood 162 mg/dL (60-115)
--- NOTE | 2022-02-13 11:44 | MHC.CM.PN ---
PER CM DIRECTOR [employer] EXTENDED AND MED TX PLAN ADDRESSED, ONCE PAPERWORK RECEIVED WILL UPDATE REFERRAL AND SPECIFICALLY [facility]. CM WILL CONT TO FOLLOW D/C NEEDS.
[2022-02-13] MEDS: Sildenafil Citrate 20 MG TABLET PO ×2 (14:24→20:48)
[2022-02-13] MEDS: Atorvastatin Calcium 40 MG TABLET PO (14:24)
[2022-02-13] MEDS: SITagliptin Phosphate 100 MG TABLET PO (14:24)
[2022-02-13 15:10] VITALS: BP 106/60; PULSE 79; RESP 18; TEMP 36.6; O2SAT 91
[2022-02-13 15:37] LABS: Glucose, Whole Blood 146 mg/dL (60-115)
[2022-02-13 16:00] VITALS: BP 106/60; PULSE 79; RESP 18; TEMP 36.6; O2SAT 91
[2022-02-13] MEDS: Divalproex Sodium ER 250 MG TAB.ER.24H PO (17:24)
[2022-02-13] MEDS: metFORMIN HCl 500 MG TABLET PO (17:24)
[2022-02-13] MEDS: Furosemide 40 MG TABLET PO (17:25)
[2022-02-13 20:15] LABS: Glucose, Whole Blood 185 mg/dL (60-115)
[2022-02-13] MEDS: Enoxaparin Sodium 40 MG/0.4 ML SYRINGE SUBCUT (20:48)
[2022-02-13] MEDS: Ferrous Sulfate 324 MG TABLET.DR PO (20:48)
[2022-02-13] MEDS: HaloperidoL 5 MG TABLET 10 MG PO (20:48)
[2022-02-13] MEDS: Insulin Lispro 100 UNIT/ML 3 ML VIAL SUBCUT (20:49)
[2022-02-13] MEDS: Insulin Glargine,Hum.rec.anlog 100 UNIT/ML 10 ML VIAL 10 UNIT SUBCUT (20:50)
[2022-02-14 07:15] VITALS: BP 104/70; PULSE 67; RESP 18; TEMP 37.3; O2SAT 92
[2022-02-14 07:35] LABS: Glucose, Whole Blood 169 mg/dL (60-115)
[2022-02-14] MEDS: Furosemide 40 MG TABLET PO ×2 (11:04→17:37)
[2022-02-14] MEDS: metFORMIN HCl 500 MG TABLET PO ×2 (11:04→17:38)
[2022-02-14] MEDS: Sildenafil Citrate 20 MG TABLET PO ×3 (11:04→20:39)
[2022-02-14] MEDS: HaloperidoL 5 MG TABLET 10 MG PO ×2 (11:05→20:39)
[2022-02-14] MEDS: SITagliptin Phosphate 100 MG TABLET PO (11:05)
[2022-02-14] MEDS: Divalproex Sodium ER 500 MG TAB.ER.24H PO (11:05)
[2022-02-14] MEDS: Ferrous Sulfate 324 MG TABLET.DR PO ×2 (11:05→20:39)
[2022-02-14] MEDS: Atorvastatin Calcium 40 MG TABLET PO (11:06)
[2022-02-14 11:38] LABS: Glucose, Whole Blood 156 mg/dL (60-115)
--- NOTE | 2022-02-14 15:39 | HO.PM.IMPN ---
Subjective Subjective Date of Service: 02/14/22 Interval History: no new complaints Review of Systems Review of Systems: Yes all other systems are reviewed and are negative Physical Exam Vital Signs: Vital Signs: Last Vital Signs Temp 99.2 F 02/14/22 07:15 Pulse 67 02/14/22 07:15 Resp 18 02/14/22 07:15 BP 104/70 02/14/22 07:15 Pulse Ox 92 02/14/22 07:15 O2 Del Method 02/14/22 07:15 O2 Flow Rate 2 02/13/22 15:38 FiO2 94 02/13/22 15:38 BMI result Body Mass Index 21.8 Gen: in no acute distress HEENT: sclera anicteric, moist mucus membranes Neck: supple Lungs: clear to auscultation bilaterally Heart: regular rate and rhythm, no murmurs Abd: soft, non-tender, non-distended Ext: no edema Skin: warm/well-perfused Neuro: alert, disoriented Psych: impaired insight Objective Data Active Medications Acetaminophen (Acetaminophen 325 Mg Tablet) 650 mg PO Q6H PRN PRN Reason: Pain, Mild (Pain Scale 1-3) Atorvastatin Calcium (Atorvastatin Calcium 40 Mg Tablet) 40 mg PO DAILY [facility] Last Admin: 02/14/22 11:06 Dose: 40 mg Documented By: MICHA Dextrose (Dextrose 50 % 25 Gm/50 Ml Syringe) 25 gm IVPUSH Q15M PRN; Protocol PRN Reason: per Hypoglycemia Standing Ord. Divalproex Sodium (Divalproex Sodium Er 250 Mg Tab.Er.24h) 250 mg PO DAILY@1700 [facility] Last Admin: 02/13/22 17:24 Dose: 250 mg Documented By: NATHAN Divalproex Sodium (Divalproex Sodium Er 500 Mg Tab.Er.24h) 500 mg PO DAILY [facility] Last Admin: 02/14/22 11:05 Dose: 500 mg Documented By: MICHA Enoxaparin Sodium (Enoxaparin Sodium 40 Mg/0.4 Ml Syringe) 40 mg SUBCUT Q24H [facility] Last Admin: 02/13/22 20:48 Dose: 40 mg Documented By: NATHAN Ferrous Sulfate (Ferrous Sulfate 324 Mg Tablet.) 324 mg PO BID [facility] Last Admin: 02/14/22 11:05 Dose: 324 mg Documented By: MICHA Fluticasone Propionate (Fluticasone Propionate Nasal 16 Gm [place]) 1 spray NOSTRIL-B BID [facility] Last Admin: 02/14/22 11:06 Dose: Not Given Documented By: MICHA Non-Admin Reason: Patient Refused Furosemide (Furosemide 40 Mg Tablet) 40 mg PO BID@0900,1800 [facility]; Protocol Last Admin: 02/14/22 11:04 Dose: 40 mg Documented By: MICHA Glucose (Glucose Gel 15 Gm Gel..Gram.) 15 gm PO Q15M PRN; Protocol PRN Reason: per Hypoglycemia Standing Ord. Haloperidol (Haloperidol 5 Mg Tablet) 10 mg PO BID [facility] Last Admin: 02/14/22 11:05 Dose: 10 mg Documented By: MICHA Insulin Glargine (Insulin Glargine,Hum.Rec.Anlog 100 Unit/Ml 10 Ml Vial) 10 unit SUBCUT BEDTIME [facility] Last Admin: 02/13/22 20:50 Dose: 10 unit Documented By: NATHAN Insulin Human Lispro (Insulin Lispro 100 Unit/Ml 3 Ml Vial) 0 unit SUBCUT QIDACHS [facility]; Protocol Last Admin: 02/14/22 12:17 Dose: Not Given Documented By: TODD Non-Admin Reason: Patient Refused Melatonin (Melatonin 3 Mg Tablet) 6 mg PO BEDTIME PRN PRN Reason: Insomnia Last Admin: 01/31/22 19:50 Dose: 6 mg Documented By: GENIE Metformin HCl (Metformin Hcl 500 Mg Tablet) 500 mg PO BIDWM [facility] Last Admin: 02/14/22 11:04 Dose: 500 mg Documented By: MICHA Neomycin/Polymyxin/Hydrocortisone (Neomycin/Polymyxin/Hc Otic Melanie 10 Ml Drpbtl) 3 drop EAR-RIGHT QID [facility] Last Admin: 02/14/22 12:18 Dose: Not Given Documented By: TODD Non-Admin Reason: Patient Refused Olanzapine (Olanzapine Odt 10 Mg Tab.Rapdis) 5 mg TRANSLINGU BID PRN PRN Reason: agitation, psychosis Last Admin: 02/09/22 14:45 Dose: 5 mg Documented By: CIRO Omeprazole (Omeprazole 20 Mg Capsule.Dr) 20 mg PO DAILY@0630 [facility] Last Admin: 02/14/22 06:24 Dose: Not Given Documented By: KEVIN Non-Admin Reason: Patient Refused Senna (Sennosides 8.6 Mg Tablet) 17.2 mg PO BEDTIME PRN PRN Reason: Constipation Sildenafil Citrate (Sildenafil Citrate 20 Mg Tablet) 20 mg PO TID [facility] Last Admin: 02/14/22 14:53 Dose: 20 mg Documented By: MICHA Sitagliptin Phosphate (Sitagliptin Phosphate 100 Mg Tablet) 100 mg PO DAILY [facility] Last Admin: 02/14/22 11:05 Dose: 100 mg Documented By: MICHA Sodium Chloride (0.9 % Sodium Chloride Flush 3 Ml Syringe) 3 ml IVFLUSH QSHIFT [facility] Last Admin: 02/14/22 10:18 Dose: Not Given Documented By: TODD Non-Admin Reason: No Insulin Coverage Labs CBC & Chem 7: 01/16/22 05:35 02/04/22 15:53 Labs: Laboratory Results - last 24 hr 02/13/22 02/14/22 02/14/22 20:10 07:12 11:23 POC Glucose 185 H 169 H 156 H Assessment and Plan (1) Schizo affective schizophrenia: Status: Acute (2) Otitis externa: Status: Acute Plan hospital d#37 61 yo M from senior living resident with schizophrenia, DM2, possible COPD/asthma [not formally diagnosed] p/w hypoxia + dyspnea found to have severe pulmonary HTN/R-sided HF essentially no change in care today, still awaiting placement #pulmonary HTN # R-sided HF - continue sildenafil as ordered by Pulmonology -?continue PO furosemide - outpt f/u with Pulm with consideration of R-sided cath #COPD/asthma, provisional diagnosis - outpt PFTs - continue nebs - completed a course of steroids - completed a course of doxy -wears O2 off and on, but is always above 90 #DM2 - basal/bolus insulin - sitagliptin, metformin # schizoaffective disorder - no behavioral issues at this time? - continue VPA, haloperidol - seen by psych, added prn meds? # HLD - continue statin? # GERD - continue PPI # VTE ppx: LMWH # dispo: cannot go back to [facility], plan to dc to [facility]TC, HCP invoked, awaiting bed ? Need for inpatient stay: pending safe dispo to LTC when bed available, despite his insistence, he cannot go back to the senior living Has Med treatment plan NOT Jose order - could give IM Haldol if refuses po Quality Stroke Does the patient have a stroke diagnosis?: No VTE Prior VTE?: No VTE Risk Level:: Medical - moderate - high VTE Device Contraindication: Treatment Not Indicated VTE Drug Contraindication: N/A - Med Ordered
[2022-02-14 15:43] VITALS: BP 99/65; PULSE 68; RESP 18; TEMP 36.4; O2SAT 94
[2022-02-14 16:12] LABS: Glucose, Whole Blood 141 mg/dL (60-115)
--- NOTE | 2022-02-14 16:34 | MHC.CM.PN ---
PER CM DIRECTOR WE ARE STILL AWAITING COURT DOCUMENTS FOR EXTENDED [employer], ONCE RECEIVED CM WILL UPDATE SNF REFERRALS.
[2022-02-14] MEDS: Divalproex Sodium ER 250 MG TAB.ER.24H PO (17:38)
[2022-02-14 20:07] LABS: Glucose, Whole Blood 164 mg/dL (60-115)
[2022-02-14] MEDS: Insulin Glargine,Hum.rec.anlog 100 UNIT/ML 10 ML VIAL 10 UNIT SUBCUT (20:38)
[2022-02-14] MEDS: Insulin Lispro 100 UNIT/ML 3 ML VIAL SUBCUT (20:38)
[2022-02-14] MEDS: Enoxaparin Sodium 40 MG/0.4 ML SYRINGE SUBCUT (20:39)
[2022-02-15 07:21] VITALS: BP 95/64; PULSE 66; RESP 17; TEMP 36.6; O2SAT 92
[2022-02-15 07:27] LABS: Glucose, Whole Blood 170 mg/dL (60-115)
[2022-02-15] MEDS: Atorvastatin Calcium 40 MG TABLET PO (08:53)
[2022-02-15] MEDS: Sildenafil Citrate 20 MG TABLET PO ×2 (08:53→16:41)
[2022-02-15] MEDS: Insulin Lispro 100 UNIT/ML 3 ML VIAL SUBCUT ×2 (08:53→16:42)
[2022-02-15] MEDS: Divalproex Sodium ER 500 MG TAB.ER.24H PO (08:53)
[2022-02-15] MEDS: HaloperidoL 5 MG TABLET 10 MG PO ×2 (08:53→20:25)
[2022-02-15] MEDS: metFORMIN HCl 500 MG TABLET PO ×2 (08:53→16:42)
[2022-02-15] MEDS: Furosemide 40 MG TABLET PO ×2 (08:53→16:42)
[2022-02-15] MEDS: SITagliptin Phosphate 100 MG TABLET PO (08:53)
[2022-02-15] MEDS: Ferrous Sulfate 324 MG TABLET.DR PO (08:53)
--- NOTE | 2022-02-15 11:37 | HO.PM.IMPN ---
Subjective Subjective Date of Service: 02/15/22 Interval History: no complaints; denies dyspnea or cough Review of Systems Review of Systems: Yes all other systems are reviewed and are negative Physical Exam Vital Signs: Vital Signs: Last Vital Signs Temp 98 F 02/15/22 07:21 Pulse 66 02/15/22 07:21 Resp 17 02/15/22 07:21 BP 95/64 02/15/22 07:21 Pulse Ox 92 02/15/22 07:21 O2 Del Method 02/15/22 07:21 O2 Flow Rate 2 02/13/22 15:38 FiO2 94 02/13/22 15:38 BMI result Body Mass Index 21.8 Gen: in no acute distress HEENT: sclera anicteric, moist mucus membranes Neck: supple Lungs: clear to auscultation bilaterally Heart: regular rate and rhythm, no murmurs Abd: soft, non-tender, non-distended Ext: no edema Skin: warm/well-perfused Neuro: alert, disoriented Psych: impaired insight Objective Data Active Medications Acetaminophen (Acetaminophen 325 Mg Tablet) 650 mg PO Q6H PRN PRN Reason: Pain, Mild (Pain Scale 1-3) Atorvastatin Calcium (Atorvastatin Calcium 40 Mg Tablet) 40 mg PO DAILY [facility] Last Admin: 02/15/22 08:53 Dose: 40 mg Documented By: MARK Dextrose (Dextrose 50 % 25 Gm/50 Ml Syringe) 25 gm IVPUSH Q15M PRN; Protocol PRN Reason: per Hypoglycemia Standing Ord. Divalproex Sodium (Divalproex Sodium Er 250 Mg Tab.Er.24h) 250 mg PO DAILY@1700 [facility] Last Admin: 02/14/22 17:38 Dose: 250 mg Documented By: NATHAN Divalproex Sodium (Divalproex Sodium Er 500 Mg Tab.Er.24h) 500 mg PO DAILY [facility] Last Admin: 02/15/22 08:53 Dose: 500 mg Documented By: MARK Enoxaparin Sodium (Enoxaparin Sodium 40 Mg/0.4 Ml Syringe) 40 mg SUBCUT Q24H [facility] Last Admin: 02/14/22 20:39 Dose: 40 mg Documented By: NATHAN Ferrous Sulfate (Ferrous Sulfate 324 Mg Tablet.) 324 mg PO BID [facility] Last Admin: 02/15/22 08:53 Dose: 324 mg Documented By: MARK Fluticasone Propionate (Fluticasone Propionate Nasal 16 Gm [place]) 1 spray NOSTRIL-B BID [facility] Last Admin: 02/15/22 09:06 Dose: Not Given Documented By: MARK Non-Admin Reason: Patient Refused Furosemide (Furosemide 40 Mg Tablet) 40 mg PO BID@0900,1800 [facility]; Protocol Last Admin: 02/15/22 08:53 Dose: 40 mg Documented By: MARK Glucose (Glucose Gel 15 Gm Gel..Gram.) 15 gm PO Q15M PRN; Protocol PRN Reason: per Hypoglycemia Standing Ord. Haloperidol (Haloperidol 5 Mg Tablet) 10 mg PO BID [facility] Last Admin: 02/15/22 08:53 Dose: 10 mg Documented By: MARK Insulin Glargine (Insulin Glargine,Hum.Rec.Anlog 100 Unit/Ml 10 Ml Vial) 10 unit SUBCUT BEDTIME [facility] Last Admin: 02/14/22 20:38 Dose: 10 unit Documented By: NATHAN Insulin Human Lispro (Insulin Lispro 100 Unit/Ml 3 Ml Vial) 0 unit SUBCUT QIDACHS [facility]; Protocol Last Admin: 02/15/22 08:53 Dose: 2 unit Documented By: MARK Melatonin (Melatonin 3 Mg Tablet) 6 mg PO BEDTIME PRN PRN Reason: Insomnia Last Admin: 01/31/22 19:50 Dose: 6 mg Documented By: GENIE Metformin HCl (Metformin Hcl 500 Mg Tablet) 500 mg PO BIDWM [facility] Last Admin: 02/15/22 08:53 Dose: 500 mg Documented By: MARK Neomycin/Polymyxin/Hydrocortisone (Neomycin/Polymyxin/Hc Otic Melanie 10 Ml Drpbtl) 3 drop EAR-RIGHT QID [facility] Last Admin: 02/15/22 09:06 Dose: Not Given Documented By: MARK Non-Admin Reason: Patient Refused Olanzapine (Olanzapine Odt 10 Mg Tab.Rapdis) 5 mg TRANSLINGU BID PRN PRN Reason: agitation, psychosis Last Admin: 02/09/22 14:45 Dose: 5 mg Documented By: CIRO Omeprazole (Omeprazole 20 Mg Capsule.Dr) 20 mg PO DAILY@0630 [facility] Last Admin: 02/15/22 06:11 Dose: Not Given Documented By: KEVIN Non-Admin Reason: Patient Refused Senna (Sennosides 8.6 Mg Tablet) 17.2 mg PO BEDTIME PRN PRN Reason: Constipation Sildenafil Citrate (Sildenafil Citrate 20 Mg Tablet) 20 mg PO TID [facility] Last Admin: 02/15/22 08:53 Dose: 20 mg Documented By: MARK Sitagliptin Phosphate (Sitagliptin Phosphate 100 Mg Tablet) 100 mg PO DAILY [facility] Last Admin: 02/15/22 08:53 Dose: 100 mg Documented By: MARK Sodium Chloride (0.9 % Sodium Chloride Flush 3 Ml Syringe) 3 ml IVFLUSH QSHIFT [facility] Last Admin: 02/15/22 08:40 Dose: Not Given Documented By: MARK Non-Admin Reason: No Access Labs CBC & Chem 7: 01/16/22 05:35 02/04/22 15:53 Labs: Laboratory Results - last 24 hr 02/14/22 02/14/22 02/14/22 11:23 15:46 19:29 POC Glucose 156 H 141 H 164 H 02/15/22 07:23 POC Glucose 170 H Assessment and Plan (1) Schizo affective schizophrenia: Status: Acute (2) Otitis externa: Status: Acute Plan hospital d#38 61 yo M from [facility] with schizophrenia, DM2, possible COPD/asthma [not formally diagnosed] p/w hypoxia + dyspnea found to have severe pulmonary HTN/R-sided HF essentially no change in care today, still awaiting placement #pulmonary HTN # R-sided HF - continue sildenafil as ordered by Pulmonology -?continue PO furosemide - outpt f/u with Pulm with consideration of R-sided cath #COPD/asthma, provisional diagnosis - outpt PFTs - continue nebs - completed a course of steroids - completed a course of doxy -wears O2 off and on, but is always above 90 #DM2 - basal/bolus insulin - sitagliptin, metformin # schizoaffective disorder - no behavioral issues at this time? - continue VPA, haloperidol - seen by psych, added prn meds? # HLD - continue statin? # GERD - continue PPI # VTE ppx: LMWH # dispo: cannot go back to [facility], plan to dc to LTC, HCP invoked, awaiting bed ? Need for inpatient stay: pending safe dispo to LTC when bed available; despite his insistence, [facility] Has Med treatment plan NOT Jose order - could give IM Haldol if refuses po Quality Stroke Does the patient have a stroke diagnosis?: No VTE Prior VTE?: No VTE Risk Level:: Medical - moderate - high VTE Device Contraindication: Treatment Not Indicated VTE Drug Contraindication: N/A - Med Ordered
--- NOTE | 2022-02-15 11:47 | PC.NURSE ---
Pt refused lunchtime POC and insulin. MD made aware. Will continue to monitor.
[2022-02-15 15:33] VITALS: BP 91/60; PULSE 73; RESP 16; TEMP 36.6; O2SAT 93
[2022-02-15 15:48] LABS: Glucose, Whole Blood 151 mg/dL (60-115)
[2022-02-15] MEDS: Divalproex Sodium ER 250 MG TAB.ER.24H PO (16:42)
[2022-02-15 19:47] LABS: Glucose, Whole Blood 138 mg/dL (60-115)
--- NOTE | 2022-02-15 20:28 | PC.NURSE ---
patient refused all evening (2100) medications. Was able to convince him to take his Haldol. Will continue to monitor.
[2022-02-15 23:52] VITALS: BP 94/74; PULSE 78; RESP 18; TEMP 36.8; O2SAT 94
[2022-02-16] MEDS: Omeprazole 20 MG CAPSULE.DR PO (05:50)
[2022-02-16 07:18] VITALS: BP 100/67; PULSE 75; RESP 17; TEMP 36.3; O2SAT 92
[2022-02-16 07:26] LABS: Glucose, Whole Blood 131 mg/dL (60-115)
--- NOTE | 2022-02-16 10:54 | PC.NURSE ---
pt refused all morning medications. Became agitated and began raising his voice stating. Dr Michaud made aware.
[2022-02-16 11:22] LABS: Glucose, Whole Blood 222 mg/dL (60-115)
[2022-02-16] MEDS: Insulin Lispro 100 UNIT/ML 3 ML VIAL SUBCUT (11:54)
--- NOTE | 2022-02-16 12:50 | HO.PM.IMPN ---
Subjective Subjective Date of Service: 02/16/22 Interval History: intermittently refusing care no complaints Review of Systems Review of Systems: Yes all other systems are reviewed and are negative Physical Exam Vital Signs: Vital Signs: Last Vital Signs Temp 97.4 F 02/16/22 07:18 Pulse 75 02/16/22 07:18 Resp 17 02/16/22 07:18 BP 100/67 02/16/22 07:18 Pulse Ox 92 02/16/22 07:18 O2 Del Method 02/16/22 07:18 O2 Flow Rate 2 02/16/22 07:18 FiO2 94 02/13/22 15:38 BMI result Body Mass Index 21.8 Gen: in no acute distress HEENT: sclera anicteric, moist mucus membranes Neck: supple Lungs: clear to auscultation bilaterally Heart: regular rate and rhythm, no murmurs Abd: soft, non-tender, non-distended Ext: no edema Skin: warm/well-perfused Neuro: alert, disoriented Psych: impaired insight Objective Data Active Medications Acetaminophen (Acetaminophen 325 Mg Tablet) 650 mg PO Q6H PRN PRN Reason: Pain, Mild (Pain Scale 1-3) Atorvastatin Calcium (Atorvastatin Calcium 40 Mg Tablet) 40 mg PO DAILY [facility] Last Admin: 02/16/22 11:11 Dose: Not Given Documented By: MARK Non-Admin Reason: Patient Refused Dextrose (Dextrose 50 % 25 Gm/50 Ml Syringe) 25 gm IVPUSH Q15M PRN; Protocol PRN Reason: per Hypoglycemia Standing Ord. Divalproex Sodium (Divalproex Sodium Er 250 Mg Tab.Er.24h) 250 mg PO DAILY@1700 [facility] Last Admin: 02/15/22 16:42 Dose: 250 mg Documented By: MARK Divalproex Sodium (Divalproex Sodium Er 500 Mg Tab.Er.24h) 500 mg PO DAILY [facility] Last Admin: 02/16/22 11:11 Dose: Not Given Documented By: MARK Non-Admin Reason: Patient Refused Enoxaparin Sodium (Enoxaparin Sodium 40 Mg/0.4 Ml Syringe) 40 mg SUBCUT Q24H [facility] Last Admin: 02/15/22 20:26 Dose: Not Given Documented By: BLADIMIR Non-Admin Reason: Patient Refused Ferrous Sulfate (Ferrous Sulfate 324 Mg Tablet.) 324 mg PO BID [facility] Last Admin: 02/16/22 11:11 Dose: Not Given Documented By: MARK Non-Admin Reason: Patient Refused Fluticasone Propionate (Fluticasone Propionate Nasal 16 Gm [place]) 1 spray NOSTRIL-B BID [facility] Last Admin: 02/16/22 11:11 Dose: Not Given Documented By: MARK Non-Admin Reason: Patient Refused Furosemide (Furosemide 40 Mg Tablet) 40 mg PO BID@0900,1800 [facility]; Protocol Last Admin: 02/16/22 11:11 Dose: Not Given Documented By: MARK Non-Admin Reason: Patient Refused Glucose (Glucose Gel 15 Gm Gel..Gram.) 15 gm PO Q15M PRN; Protocol PRN Reason: per Hypoglycemia Standing Ord. Haloperidol (Haloperidol 5 Mg Tablet) 10 mg PO BID [facility] Last Admin: 02/16/22 11:11 Dose: Not Given Documented By: MARK Non-Admin Reason: Patient Refused Insulin Glargine (Insulin Glargine,Hum.Rec.Anlog 100 Unit/Ml 10 Ml Vial) 10 unit SUBCUT BEDTIME [facility] Last Admin: 02/15/22 20:26 Dose: Not Given Documented By: BLADIMIR Non-Admin Reason: Patient Refused Insulin Human Lispro (Insulin Lispro 100 Unit/Ml 3 Ml Vial) 0 unit SUBCUT QIDACHS [facility]; Protocol Last Admin: 02/16/22 11:54 Dose: 4 unit Documented By: MARK Melatonin (Melatonin 3 Mg Tablet) 6 mg PO BEDTIME PRN PRN Reason: Insomnia Last Admin: 01/31/22 19:50 Dose: 6 mg Documented By: GENIE Metformin HCl (Metformin Hcl 500 Mg Tablet) 500 mg PO BIDWM [facility] Last Admin: 02/16/22 11:11 Dose: Not Given Documented By: MARK Non-Admin Reason: Patient Refused Neomycin/Polymyxin/Hydrocortisone (Neomycin/Polymyxin/Hc Otic Melanie 10 Ml Drpbtl) 3 drop EAR-RIGHT QID [facility] Last Admin: 02/16/22 12:27 Dose: Not Given Documented By: MARK Non-Admin Reason: Patient Refused Olanzapine (Olanzapine Odt 10 Mg Tab.Rapdis) 5 mg TRANSLINGU BID PRN PRN Reason: agitation, psychosis Last Admin: 02/09/22 14:45 Dose: 5 mg Documented By: CIRO Omeprazole (Omeprazole 20 Mg [place].) 20 mg PO DAILY@0630 [facility] Last Admin: 02/16/22 05:50 Dose: 20 mg Documented By: BLADIMIR Senna (Sennosides 8.6 Mg Tablet) 17.2 mg PO BEDTIME PRN PRN Reason: Constipation Sildenafil Citrate (Sildenafil Citrate 20 Mg Tablet) 20 mg PO TID [facility] Last Admin: 02/16/22 11:11 Dose: Not Given Documented By: MARK Non-Admin Reason: Patient Refused Sitagliptin Phosphate (Sitagliptin Phosphate 100 Mg Tablet) 100 mg PO DAILY [facility] Last Admin: 02/16/22 11:12 Dose: Not Given Documented By: MARK Non-Admin Reason: Patient Refused Sodium Chloride (0.9 % Sodium Chloride Flush 3 Ml Syringe) 3 ml IVFLUSH QSHIFT [facility] Last Admin: 02/16/22 07:02 Dose: Not Given Documented By: MARK Non-Admin Reason: No Access Labs CBC & Chem 7: 01/16/22 05:35 02/04/22 15:53 Labs: Laboratory Results - last 24 hr 02/15/22 02/15/22 02/16/22 15:38 19:40 07:20 POC Glucose 151 H 138 H 131 H 02/16/22 11:18 POC Glucose 222 H Assessment and Plan (1) Schizo affective schizophrenia: Status: Acute (2) Otitis externa: Status: Acute Plan hospital d#39 61 yo M from custodial resident with schizophrenia, DM2, possible COPD/asthma [not formally diagnosed] p/w hypoxia + dyspnea found to have severe pulmonary HTN/R-sided HF essentially no change in care today, still awaiting placement #pulmonary HTN # R-sided HF - continue sildenafil as ordered by Pulmonology -?continue PO furosemide - outpt f/u with Pulm with consideration of R-sided cath #COPD/asthma, provisional diagnosis - outpt PFTs - continue nebs - completed a course of steroids - completed a course of doxy -wears O2 off and on, but is always above 90 #DM2 - basal/bolus insulin - sitagliptin, metformin # schizoaffective disorder - no behavioral issues at this time? - continue VPA, haloperidol - seen by psych, added prn meds? # HLD - continue statin? # GERD - continue PPI # VTE ppx: LMWH # dispo: cannot go back to Long Term, plan to dc to LTC, HCP invoked, awaiting bed ? Need for inpatient stay: pending safe dispo to LTC when bed available; despite his insistence, he cannot go back to the custodial Has Med treatment plan NOT Garcia order - could give IM Haldol if refuses po Quality Stroke Does the patient have a stroke diagnosis?: No VTE Prior VTE?: No VTE Risk Level:: Medical - moderate - high VTE Device Contraindication: Treatment Not Indicated VTE Drug Contraindication: N/A - Med Ordered
--- NOTE | 2022-02-16 13:50 | MHC.CM.PN ---
EMR REVIEWED, PT REMAINS MEDICALLY CLEARED FOR D/C, CM STILL AWAITING EXTENDED [employer]WORK W/CLARIFIED MED TX PLAN, CM WILL CONT TO FOLLOW D/C NEEDS.
[2022-02-16 15:40] VITALS: BP 103/67; PULSE 71; RESP 18; TEMP 36.4; O2SAT 96
[2022-02-16 15:52] LABS: Glucose, Whole Blood 120 mg/dL (60-115)
[2022-02-16] MEDS: Divalproex Sodium ER 250 MG TAB.ER.24H PO (16:58)
[2022-02-16] MEDS: Furosemide 40 MG TABLET PO (16:58)
[2022-02-16] MEDS: Sildenafil Citrate 20 MG TABLET PO (16:58)
[2022-02-16] MEDS: metFORMIN HCl 500 MG TABLET PO (16:58)
[2022-02-16 20:27] LABS: Glucose, Whole Blood 134 mg/dL (60-115)
[2022-02-16 23:24] VITALS: BP 116/67; PULSE 67; RESP 18; TEMP 36.6; O2SAT 92
[2022-02-17] MEDS: Omeprazole 20 MG CAPSULE.DR PO (06:14)
[2022-02-17 07:23] LABS: Glucose, Whole Blood 153 mg/dL (60-115)
[2022-02-17 07:49] VITALS: BP 105/70; PULSE 74; RESP 18; TEMP 36.4; O2SAT 93
--- NOTE | 2022-02-17 09:35 | HO.PM.IMPN ---
Subjective Subjective Date of Service: 02/17/22 Interval History: denies dyspnea or cough, just wants to know about discharge Review of Systems Review of Systems: Yes Unobtainable due to mental status Physical Exam Vital Signs: Vital Signs: Last Vital Signs Temp 97.5 F 02/17/22 07:49 Pulse 74 02/17/22 07:49 Resp 18 02/17/22 07:49 BP 105/70 02/17/22 07:49 Pulse Ox 93 02/17/22 07:49 O2 Del Method 02/17/22 07:49 O2 Flow Rate 2 02/16/22 07:18 FiO2 94 02/13/22 15:38 BMI result Body Mass Index 21.8 Gen: in no acute distress HEENT: sclera anicteric, moist mucus membranes Neck: supple Lungs: clear to auscultation bilaterally Heart: regular rate and rhythm, no murmurs Abd: soft, non-tender, non-distended Ext: no edema Skin: warm/well-perfused Neuro: alert, disoriented Psych: impaired insight Objective Data Active Medications Acetaminophen (Acetaminophen 325 Mg Tablet) 650 mg PO Q6H PRN PRN Reason: Pain, Mild (Pain Scale 1-3) Atorvastatin Calcium (Atorvastatin Calcium 40 Mg Tablet) 40 mg PO DAILY [facility] Last Admin: 02/17/22 09:11 Dose: Not Given Documented By: ATIF Non-Admin Reason: Patient Refused Dextrose (Dextrose 50 % 25 Gm/50 Ml Syringe) 25 gm IVPUSH Q15M PRN; Protocol PRN Reason: per Hypoglycemia Standing Ord. Divalproex Sodium (Divalproex Sodium Er 250 Mg Tab.Er.24h) 250 mg PO DAILY@1700 [facility] Last Admin: 02/16/22 16:58 Dose: 250 mg Documented By: MARK Divalproex Sodium (Divalproex Sodium Er 500 Mg Tab.Er.24h) 500 mg PO DAILY [facility] Last Admin: 02/17/22 09:11 Dose: Not Given Documented By: ATIF Non-Admin Reason: Patient Refused Enoxaparin Sodium (Enoxaparin Sodium 40 Mg/0.4 Ml Syringe) 40 mg SUBCUT Q24H [facility] Last Admin: 02/16/22 21:20 Dose: Not Given Documented By: BLADIMIR Non-Admin Reason: Patient Refused Ferrous Sulfate (Ferrous Sulfate 324 Mg Tablet.) 324 mg PO BID [facility] Last Admin: 02/17/22 09:11 Dose: Not Given Documented By: ATIF Non-Admin Reason: Patient Refused Fluticasone Propionate (Fluticasone Propionate Nasal 16 Gm [place]) 1 spray NOSTRIL-B BID [facility] Last Admin: 02/17/22 09:11 Dose: Not Given Documented By: ATIF Non-Admin Reason: Patient Refused Furosemide (Furosemide 40 Mg Tablet) 40 mg PO BID@0900,1800 [facility]; Protocol Last Admin: 02/17/22 09:11 Dose: Not Given Documented By: ATIF Non-Admin Reason: Patient Refused Glucose (Glucose Gel 15 Gm Gel..Gram.) 15 gm PO Q15M PRN; Protocol PRN Reason: per Hypoglycemia Standing Ord. Haloperidol (Haloperidol 5 Mg Tablet) 10 mg PO BID [facility] Last Admin: 02/17/22 09:11 Dose: Not Given Documented By: ATIF Non-Admin Reason: Patient Refused Insulin Glargine (Insulin Glargine,Hum.Rec.Anlog 100 Unit/Ml 10 Ml Vial) 10 unit SUBCUT BEDTIME [facility] Last Admin: 02/16/22 21:22 Dose: Not Given Documented By: BLADIMIR Non-Admin Reason: Patient Refused Insulin Human Lispro (Insulin Lispro 100 Unit/Ml 3 Ml Vial) 0 unit SUBCUT QIDACHS [facility]; Protocol Last Admin: 02/17/22 09:00 Dose: Not Given Documented By: ATIF Non-Admin Reason: No Insulin Coverage Melatonin (Melatonin 3 Mg Tablet) 6 mg PO BEDTIME PRN PRN Reason: Insomnia Last Admin: 01/31/22 19:50 Dose: 6 mg Documented By: GENIE Metformin HCl (Metformin Hcl 500 Mg Tablet) 500 mg PO BIDWM [facility] Last Admin: 02/17/22 09:11 Dose: Not Given Documented By: ATIF Non-Admin Reason: Patient Refused Neomycin/Polymyxin/Hydrocortisone (Neomycin/Polymyxin/Hc Otic Melanie 10 Ml Drpbtl) 3 drop EAR-RIGHT QID [facility] Last Admin: 02/17/22 09:12 Dose: Not Given Documented By: ATIF Non-Admin Reason: Patient Refused Olanzapine (Olanzapine Odt 10 Mg Tab.Rapdis) 5 mg TRANSLINGU BID PRN PRN Reason: agitation, psychosis Last Admin: 02/09/22 14:45 Dose: 5 mg Documented By: CIRO Omeprazole (Omeprazole 20 Mg Capsule.) 20 mg PO DAILY@0630 [facility] Last Admin: 02/17/22 06:14 Dose: 20 mg Documented By: STORMYFA Senna (Sennosides 8.6 Mg Tablet) 17.2 mg PO BEDTIME PRN PRN Reason: Constipation Sildenafil Citrate (Sildenafil Citrate 20 Mg Tablet) 20 mg PO TID [facility] Last Admin: 02/17/22 09:12 Dose: Not Given Documented By: ATIF Non-Admin Reason: Patient Refused Sitagliptin Phosphate (Sitagliptin Phosphate 100 Mg Tablet) 100 mg PO DAILY [facility] Last Admin: 02/17/22 09:12 Dose: Not Given Documented By: ATIF Non-Admin Reason: Patient Refused Sodium Chloride (0.9 % Sodium Chloride Flush 3 Ml Syringe) 3 ml IVFLUSH QSHIFT [facility] Last Admin: 02/17/22 09:10 Dose: Not Given Documented By: ATIF Non-Admin Reason: No Access Labs CBC & Chem 7: 01/16/22 05:35 02/04/22 15:53 Labs: Laboratory Results - last 24 hr 02/16/22 02/16/22 02/16/22 11:18 15:43 20:22 POC Glucose 222 H 120 H 134 H 02/17/22 07:18 POC Glucose 153 H Assessment and Plan (1) Schizo affective schizophrenia: Status: Acute (2) Otitis externa: Status: Acute Plan hospital d#40 61 yo M from long term resident with schizophrenia, DM2, possible COPD/asthma [not formally diagnosed] p/w hypoxia + dyspnea found to have severe pulmonary HTN/R-sided HF essentially no change in care today, still awaiting placement #pulmonary HTN # R-sided HF - continue sildenafil as ordered by Pulmonology -?continue PO furosemide - outpt f/u with Pulm with consideration of R-sided cath #COPD/asthma, provisional diagnosis - outpt PFTs - continue nebs - completed a course of steroids - completed a course of doxy -wears O2 off and on, but is always above 90 #DM2 - basal/bolus insulin - sitagliptin, metformin # schizoaffective disorder - no behavioral issues at this time? - continue VPA, haloperidol - seen by psych, added prn meds? # HLD - continue statin? # GERD - continue PPI # VTE ppx: LMWH # dispo: cannot go back to Detention, plan to dc to LTC, HCP invoked, awaiting bed ? Need for inpatient stay: pending safe dispo to LTC when bed available; despite his insistence, he cannot go back to the long term Has Med treatment plan NOT Garcia order - could give IM Haldol if refuses PO Quality Stroke Does the patient have a stroke diagnosis?: No VTE Prior VTE?: No VTE Risk Level:: Medical - moderate - high VTE Device Contraindication: Treatment Not Indicated VTE Drug Contraindication: N/A - Med Ordered
[2022-02-17 15:19] VITALS: BP 103/77; PULSE 88; RESP 18; TEMP 37; O2SAT 99
[2022-02-17] MEDS: Sildenafil Citrate 20 MG TABLET PO (15:46)
[2022-02-17] MEDS: metFORMIN HCl 500 MG TABLET PO (17:54)
[2022-02-17] MEDS: Divalproex Sodium ER 250 MG TAB.ER.24H PO (17:54)
[2022-02-17] MEDS: Furosemide 40 MG TABLET PO (17:54)
[2022-02-17 23:10] VITALS: BP 101/70; PULSE 56; RESP 18; TEMP 36.9; O2SAT 93
[2022-02-18] MEDS: Omeprazole 20 MG CAPSULE.DR PO (06:08)
[2022-02-18 07:08] LABS: Glucose, Whole Blood 182 mg/dL (60-115)
[2022-02-18 07:28] VITALS: BP 112/61; PULSE 70; RESP 18; TEMP 35.9; O2SAT 92
[2022-02-18] MEDS: metFORMIN HCl 500 MG TABLET PO ×2 (09:48→18:05)
[2022-02-18] MEDS: SITagliptin Phosphate 100 MG TABLET PO (09:48)
[2022-02-18] MEDS: Atorvastatin Calcium 40 MG TABLET PO (09:48)
[2022-02-18] MEDS: Furosemide 40 MG TABLET PO (09:48)
[2022-02-18] MEDS: HaloperidoL 5 MG TABLET 10 MG PO (09:49)
[2022-02-18] MEDS: Divalproex Sodium ER 500 MG TAB.ER.24H PO (09:49)
[2022-02-18] MEDS: Ferrous Sulfate 324 MG TABLET.DR PO (09:49)
[2022-02-18] MEDS: Sildenafil Citrate 20 MG TABLET PO ×2 (09:49→18:05)
--- NOTE | 2022-02-18 10:04 | HO.PM.IMPN ---
Subjective Subjective Date of Service: 02/18/22 Interval History: no respiratory complaints Review of Systems Review of Systems: Yes Unobtainable due to mental status Physical Exam Vital Signs: Vital Signs: Last Vital Signs Temp 96.7 F L 02/18/22 07:28 Pulse 70 02/18/22 07:28 Resp 18 02/18/22 07:28 BP 112/61 02/18/22 07:28 Pulse Ox 92 02/18/22 07:28 O2 Del Method 02/18/22 07:28 O2 Flow Rate 2 02/16/22 07:18 FiO2 94 02/13/22 15:38 BMI result Body Mass Index 21.8 Gen: in no acute distress HEENT: sclera anicteric, moist mucus membranes Neck: supple Lungs: clear to auscultation bilaterally Heart: regular rate and rhythm, no murmurs Abd: soft, non-tender, non-distended Ext: no edema Skin: warm/well-perfused Neuro: alert, disoriented Psych: impaired insight Objective Data Active Medications Acetaminophen (Acetaminophen 325 Mg Tablet) 650 mg PO Q6H PRN PRN Reason: Pain, Mild (Pain Scale 1-3) Atorvastatin Calcium (Atorvastatin Calcium 40 Mg Tablet) 40 mg PO DAILY [facility] Last Admin: 02/18/22 09:48 Dose: 40 mg Documented By: SHAKEEL Dextrose (Dextrose 50 % 25 Gm/50 Ml Syringe) 25 gm IVPUSH Q15M PRN; Protocol PRN Reason: per Hypoglycemia Standing Ord. Divalproex Sodium (Divalproex Sodium Er 250 Mg Tab.Er.24h) 250 mg PO DAILY@1700 [facility] Last Admin: 02/17/22 17:54 Dose: 250 mg Documented By: ATIF Divalproex Sodium (Divalproex Sodium Er 500 Mg Tab.Er.24h) 500 mg PO DAILY [facility] Last Admin: 02/18/22 09:49 Dose: 500 mg Documented By: SHAKEEL Enoxaparin Sodium (Enoxaparin Sodium 40 Mg/0.4 Ml Syringe) 40 mg SUBCUT Q24H [facility] Last Admin: 02/17/22 21:41 Dose: Not Given Documented By: BLADIMIR Non-Admin Reason: Patient Refused Ferrous Sulfate (Ferrous Sulfate 324 Mg Tablet.) 324 mg PO BID [facility] Last Admin: 02/18/22 09:49 Dose: 324 mg Documented By: SHAKEEL Fluticasone Propionate (Fluticasone Propionate Nasal 16 Gm [place]) 1 spray NOSTRIL-B BID [facility] Last Admin: 02/18/22 09:51 Dose: Not Given Documented By: SHAKEEL Non-Admin Reason: Patient Refused Furosemide (Furosemide 40 Mg Tablet) 40 mg PO BID@0900,1800 [facility]; Protocol Last Admin: 02/18/22 09:48 Dose: 40 mg Documented By: SHAKEEL Glucose (Glucose Gel 15 Gm Gel..Gram.) 15 gm PO Q15M PRN; Protocol PRN Reason: per Hypoglycemia Standing Ord. Haloperidol (Haloperidol 5 Mg Tablet) 10 mg PO BID [facility] Last Admin: 02/18/22 09:49 Dose: 10 mg Documented By: SHAKEEL Insulin Glargine (Insulin Glargine,Hum.Rec.Anlog 100 Unit/Ml 10 Ml Vial) 10 unit SUBCUT BEDTIME [facility] Last Admin: 02/17/22 21:41 Dose: Not Given Documented By: BLADIMIR Non-Admin Reason: Patient Refused Insulin Human Lispro (Insulin Lispro 100 Unit/Ml 3 Ml Vial) 0 unit SUBCUT QIDACHS [facility]; Protocol Last Admin: 02/18/22 09:52 Dose: Not Given Documented By: SHAKEEL Non-Admin Reason: Patient Refused Melatonin (Melatonin 3 Mg Tablet) 6 mg PO BEDTIME PRN PRN Reason: Insomnia Last Admin: 01/31/22 19:50 Dose: 6 mg Documented By: GENIE Metformin HCl (Metformin Hcl 500 Mg Tablet) 500 mg PO BIDWM [facility] Last Admin: 02/18/22 09:48 Dose: 500 mg Documented By: SHAKEEL Neomycin/Polymyxin/Hydrocortisone (Neomycin/Polymyxin/Hc Otic Melanie 10 Ml Drpbtl) 3 drop EAR-RIGHT QID [facility] Last Admin: 02/18/22 09:51 Dose: Not Given Documented By: SHAKEEL Non-Admin Reason: Patient Refused Olanzapine (Olanzapine Odt 10 Mg Tab.Rapdis) 5 mg TRANSLINGU BID PRN PRN Reason: agitation, psychosis Last Admin: 02/09/22 14:45 Dose: 5 mg Documented By: CIRO Omeprazole (Omeprazole 20 Mg Capsule.Dr) 20 mg PO DAILY@0630 [facility] Last Admin: 02/18/22 06:08 Dose: 20 mg Documented By: BLADIMIR Senna (Sennosides 8.6 Mg Tablet) 17.2 mg PO BEDTIME PRN PRN Reason: Constipation Sildenafil Citrate (Sildenafil Citrate 20 Mg Tablet) 20 mg PO TID [facility] Last Admin: 02/18/22 09:49 Dose: 20 mg Documented By: SHAKEEL Sitagliptin Phosphate (Sitagliptin Phosphate 100 Mg Tablet) 100 mg PO DAILY [facility] Last Admin: 02/18/22 09:48 Dose: 100 mg Documented By: SHAKEEL Sodium Chloride (0.9 % Sodium Chloride Flush 3 Ml Syringe) 3 ml IVFLUSH QSHIFT [facility] Last Admin: 02/18/22 09:52 Dose: Not Given Documented By: SHAKEEL Non-Admin Reason: No Access Labs CBC & Chem 7: 01/16/22 05:35 02/04/22 15:53 Labs: Laboratory Results - last 24 hr 02/18/22 07:00 POC Glucose 182 H Assessment and Plan (1) Schizo affective schizophrenia: Status: Acute (2) Otitis externa: Status: Acute Plan hospital d#41 61 yo M from senior care resident with schizophrenia, DM2, possible COPD/asthma [not formally diagnosed] p/w hypoxia + dyspnea found to have severe pulmonary HTN/R-sided HF essentially no change in care today, still awaiting placement #pulmonary HTN # R-sided HF - continue sildenafil as ordered by Pulmonology -?continue PO furosemide - outpt f/u with Pulm with consideration of R-sided cath #COPD/asthma, provisional diagnosis - outpt PFTs - continue nebs - completed a course of steroids - completed a course of doxy -wears O2 off and on, but is always above 90 #DM2 - basal/bolus insulin - sitagliptin, metformin # schizoaffective disorder - no behavioral issues at this time? - continue VPA, haloperidol - seen by psych, added prn meds? # HLD - continue statin? # GERD - continue PPI # VTE ppx: LMWH # dispo: cannot go back to [facility], plan to dc to LTC, HCP invoked, awaiting bed ? Need for inpatient stay: pending safe dispo to LTC when bed available; despite his insistence, he cannot go back to the senior care Has Med treatment plan NOT Garcia order - could give IM Haldol if refuses PO Quality Stroke Does the patient have a stroke diagnosis?: No VTE Prior VTE?: No VTE Risk Level:: Medical - moderate - high VTE Device Contraindication: Treatment Not Indicated VTE Drug Contraindication: N/A - Med Ordered
[2022-02-18 11:25] LABS: Glucose, Whole Blood 140 mg/dL (60-115)
[2022-02-18 15:33] LABS: Glucose, Whole Blood 137 mg/dL (60-115)
[2022-02-18 16:00] VITALS: BP 91/61; PULSE 70; RESP 18; TEMP 36.1; O2SAT 96
[2022-02-18] MEDS: Divalproex Sodium ER 250 MG TAB.ER.24H PO (18:05)
[2022-02-18 19:57] VITALS: BP 91/53; PULSE 67; RESP 18; TEMP 36.1; O2SAT 94
[2022-02-18 20:35] LABS: Glucose, Whole Blood 240 mg/dL (60-115)
[2022-02-18 23:26] VITALS: BP 102/67; PULSE 57; RESP 18; TEMP 36.3; O2SAT 95
--- NOTE | 2022-02-19 07:10 | HE.PHANOTE ---
Entered in creatinine labs, patient refusing labs
[2022-02-19 07:22] VITALS: BP 104/70; PULSE 66; RESP 20; TEMP 36.2; O2SAT 98
[2022-02-19 07:42] LABS: Glucose, Whole Blood 116 mg/dL (60-115)
--- NOTE | 2022-02-19 10:56 | P.PNIM_ITS ---
Subjective Subjective Date of Service: 02/19/22 Interval History: no complaints no cough or dyspnea Review of Systems Review of Systems: Yes Unobtainable due to mental status Physical Exam 2 Vital Signs: Vital Signs: Last Vital Signs Temp 97.2 F 02/19/22 07:22 Pulse 66 02/19/22 07:22 Resp 20 02/19/22 07:22 BP 104/70 02/19/22 07:22 Pulse Ox 98 02/19/22 07:22 O2 Del Method 02/19/22 07:22 O2 Flow Rate 2 02/16/22 07:18 FiO2 94 02/13/22 15:38 BMI result Body Mass Index 21.8 Gen: in no acute distress HEENT: sclera anicteric, moist mucus membranes Neck: supple Lungs: clear to auscultation bilaterally Heart: regular rate and rhythm, no murmurs Abd: soft, non-tender, non-distended Ext: no edema Skin: warm/well-perfused Neuro: alert, disoriented Psych: impaired insight Objective Data Active Medications Acetaminophen (Acetaminophen 325 Mg Tablet) 650 mg PO Q6H PRN PRN Reason: Pain, Mild (Pain Scale 1-3) Atorvastatin Calcium (Atorvastatin Calcium 40 Mg Tablet) 40 mg PO DAILY [facility] Last Admin: 02/18/22 09:48 Dose: 40 mg Documented By: SHAKEEL Dextrose (Dextrose 50 % 25 Gm/50 Ml Syringe) 25 gm IVPUSH Q15M PRN; Protocol PRN Reason: per Hypoglycemia Standing Ord. Divalproex Sodium (Divalproex Sodium Er 250 Mg Tab.Er.24h) 250 mg PO DAILY@1700 [facility] Last Admin: 02/18/22 18:05 Dose: 250 mg Documented By: SHAKEEL Divalproex Sodium (Divalproex Sodium Er 500 Mg Tab.Er.24h) 500 mg PO DAILY [facility] Last Admin: 02/18/22 09:49 Dose: 500 mg Documented By: SHAKEEL Enoxaparin Sodium (Enoxaparin Sodium 40 Mg/0.4 Ml Syringe) 40 mg SUBCUT Q24H [facility] Last Admin: 02/18/22 23:07 Dose: Not Given Documented By: EMELINA Non-Admin Reason: Patient Refused Ferrous Sulfate (Ferrous Sulfate 324 Mg Tablet.) 324 mg PO BID [facility] Last Admin: 02/18/22 23:07 Dose: Not Given Documented By: EMELINA Non-Admin Reason: Patient Refused Fluticasone Propionate (Fluticasone Propionate Nasal 16 Gm [place]) 1 spray NOSTRIL-B BID [facility] Last Admin: 02/18/22 23:08 Dose: Not Given Documented By: EMELINA Non-Admin Reason: Patient Refused Furosemide (Furosemide 40 Mg Tablet) 40 mg PO BID@0900,1800 [facility]; Protocol Last Admin: 02/18/22 18:05 Dose: Not Given Documented By: SHAKEEL Non-Admin Reason: Patient Refused Glucose (Glucose Gel 15 Gm Gel..Gram.) 15 gm PO Q15M PRN; Protocol PRN Reason: per Hypoglycemia Standing Ord. Haloperidol (Haloperidol 5 Mg Tablet) 10 mg PO BID [facility] Last Admin: 02/18/22 23:08 Dose: Not Given Documented By: EMELINA Non-Admin Reason: Patient Refused Insulin Glargine (Insulin Glargine,Hum.Rec.Anlog 100 Unit/Ml 10 Ml Vial) 10 unit SUBCUT BEDTIME [facility] Last Admin: 02/18/22 23:08 Dose: Not Given Documented By: EMELINA Non-Admin Reason: Patient Refused Insulin Human Lispro (Insulin Lispro 100 Unit/Ml 3 Ml Vial) 0 unit SUBCUT QIDACHS [facility]; Protocol Last Admin: 02/19/22 07:52 Dose: Not Given Documented By: MARK Non-Admin Reason: No Insulin Coverage Melatonin (Melatonin 3 Mg Tablet) 6 mg PO BEDTIME PRN PRN Reason: Insomnia Last Admin: 01/31/22 19:50 Dose: 6 mg Documented By: GENIE Metformin HCl (Metformin Hcl 500 Mg Tablet) 500 mg PO BIDWM [facility] Last Admin: 02/18/22 18:05 Dose: 500 mg Documented By: SHAKEEL Neomycin/Polymyxin/Hydrocortisone (Neomycin/Polymyxin/Hc Otic Melanie 10 Ml Drpbtl) 3 drop EAR-RIGHT QID [facility] Last Admin: 02/18/22 23:08 Dose: Not Given Documented By: EMLEINA Non-Admin Reason: Patient Refused Olanzapine (Olanzapine Odt 10 Mg Tab.Rapdis) 5 mg TRANSLINGU BID PRN PRN Reason: agitation, psychosis Last Admin: 02/09/22 14:45 Dose: 5 mg Documented By: CIRO Omeprazole (Omeprazole 20 Mg Capsule.) 20 mg PO DAILY@0630 [facility] Last Admin: 02/18/22 06:08 Dose: 20 mg Documented By: BLADIMIR Senna (Sennosides 8.6 Mg Tablet) 17.2 mg PO BEDTIME PRN PRN Reason: Constipation Sildenafil Citrate (Sildenafil Citrate 20 Mg Tablet) 20 mg PO TID [facility] Last Admin: 02/18/22 23:09 Dose: Not Given Documented By: EMELINA Non-Admin Reason: Patient Refused Sitagliptin Phosphate (Sitagliptin Phosphate 100 Mg Tablet) 100 mg PO DAILY [facility] Last Admin: 02/18/22 09:48 Dose: 100 mg Documented By: SHAKEEL Sodium Chloride (0.9 % Sodium Chloride Flush 3 Ml Syringe) 3 ml IVFLUSH QSHIFT [facility] Last Admin: 02/19/22 07:13 Dose: Not Given Documented By: MARK Non-Admin Reason: No Access Labs CBC & Chem 7: 01/16/22 05:35 02/04/22 15:53 Labs: Laboratory Results - last 24 hr 02/18/22 02/18/22 02/18/22 11:20 15:26 20:28 POC Glucose 140 H 137 H 240 H 02/19/22 07:26 POC Glucose 116 H Assessment and Plan (1) Schizo affective schizophrenia: Status: Acute (2) Otitis externa: Status: Acute Plan hospital d#[id number] 61 yo M from [facility] resident with schizophrenia, DM2, possible COPD/asthma [not formally diagnosed] p/w hypoxia + dyspnea found to have severe pulmonary HTN/R-sided HF essentially no change in care today, still awaiting placement #pulmonary HTN # R-sided HF - continue sildenafil as ordered by Pulmonology -?continue PO furosemide - outpt f/u with Pulm with consideration of R-sided cath #COPD/asthma, provisional diagnosis - outpt PFTs - continue nebs - completed a course of steroids - completed a course of doxy -wears O2 off and on, but is always above 90 #DM2 - basal/bolus insulin - sitagliptin, metformin # schizoaffective disorder - no behavioral issues at this time? - continue VPA, haloperidol - seen by psych, added prn meds? # HLD - continue statin? # GERD - continue PPI # VTE ppx: LMWH # [facility], plan [facility], HCP invoked, awaiting bed ? Need for inpatient stay: pending safe dispo to LTC when bed available; despite his insistence, he cannot go back to the [facility] Has Med treatment plan NOT Garcia order - could give IM Haldol if refuses PO Quality Stroke Does the patient have a stroke diagnosis?: No VTE Prior VTE?: No VTE Risk Level:: Medical - moderate - high VTE Device Contraindication: Treatment Not Indicated VTE Drug Contraindication: N/A - Med Ordered
[2022-02-19 16:00] VITALS: BP 106/70; PULSE 68; RESP 18; TEMP 36; O2SAT 98
[2022-02-19 16:44] LABS: Glucose, Whole Blood 181 mg/dL (60-115)
[2022-02-19] MEDS: metFORMIN HCl 500 MG TABLET PO (17:05)
[2022-02-19] MEDS: Sildenafil Citrate 20 MG TABLET PO ×2 (17:05→20:18)
[2022-02-19] MEDS: Furosemide 40 MG TABLET PO (17:05)
[2022-02-19] MEDS: Divalproex Sodium ER 250 MG TAB.ER.24H PO (17:05)
[2022-02-19] MEDS: HaloperidoL 5 MG TABLET 10 MG PO (20:18)
[2022-02-19] MEDS: Melatonin 3 MG TABLET 6 MG PO (20:18)
[2022-02-19] MEDS: Ferrous Sulfate 324 MG TABLET.DR PO (20:18)
[2022-02-19 20:25] LABS: Glucose, Whole Blood 125 mg/dL (60-115)
[2022-02-19 23:30] VITALS: BP 100/61; PULSE 99; RESP 16; TEMP 36.2; O2SAT 93
[2022-02-20 07:13] LABS: Glucose, Whole Blood 160 mg/dL (60-115)
[2022-02-20 07:50] VITALS: BP 109/68; PULSE 82; RESP 18; TEMP 36.3; O2SAT 93
[2022-02-20] MEDS: Atorvastatin Calcium 40 MG TABLET PO (09:06)
[2022-02-20] MEDS: Sildenafil Citrate 20 MG TABLET PO ×2 (09:06→17:32)
[2022-02-20] MEDS: Ferrous Sulfate 324 MG TABLET.DR PO (09:06)
[2022-02-20] MEDS: metFORMIN HCl 500 MG TABLET PO ×2 (09:06→17:32)
[2022-02-20] MEDS: Furosemide 40 MG TABLET PO ×2 (09:06→17:32)
[2022-02-20] MEDS: HaloperidoL 5 MG TABLET 10 MG PO ×2 (09:06→21:10)
[2022-02-20] MEDS: Divalproex Sodium ER 500 MG TAB.ER.24H PO (09:06)
[2022-02-20] MEDS: SITagliptin Phosphate 100 MG TABLET PO (09:06)
[2022-02-20 09:45] LABS: Creatinine Clr Calc Pharmacy 84.9; Estimated Glomerular Filt Rate > 60
--- NOTE | 2022-02-20 12:58 | P.PNIM_ITS ---
Subjective Subjective Date of Service: 02/20/22 Interval History: no respiratory complaints Review of Systems Review of Systems: Yes Unobtainable due to mental status Physical Exam Vital Signs: Vital Signs: Last Vital Signs Temp 97.4 F 02/20/22 07:50 Pulse 82 02/20/22 07:50 Resp 18 02/20/22 07:50 BP 109/68 02/20/22 07:50 Pulse Ox 93 02/20/22 07:50 O2 Del Method 02/20/22 07:50 O2 Flow Rate 2 02/16/22 07:18 FiO2 94 02/13/22 15:38 BMI result Body Mass Index 21.8 Gen: in no acute distress HEENT: sclera anicteric, moist mucus membranes Neck: supple Lungs: clear to auscultation bilaterally Heart: regular rate and rhythm, no murmurs Abd: soft, non-tender, non-distended Ext: no edema Skin: warm/well-perfused Neuro: alert, disoriented Psych: impaired insight Objective Data Active Medications Acetaminophen (Acetaminophen 325 Mg Tablet) 650 mg PO Q6H PRN PRN Reason: Pain, Mild (Pain Scale 1-3) Atorvastatin Calcium (Atorvastatin Calcium 40 Mg Tablet) 40 mg PO DAILY [facility] Last Admin: 02/20/22 09:06 Dose: 40 mg Documented By: MARK Dextrose (Dextrose 50 % 25 Gm/50 Ml Syringe) 25 gm IVPUSH Q15M PRN; Protocol PRN Reason: per Hypoglycemia Standing Ord. Divalproex Sodium (Divalproex Sodium Er 250 Mg Tab.Er.24h) 250 mg PO DAILY@1700 [facility] Last Admin: 02/19/22 17:05 Dose: 250 mg Documented By: MARK Divalproex Sodium (Divalproex Sodium Er 500 Mg Tab.Er.24h) 500 mg PO DAILY [facility] Last Admin: 02/20/22 09:06 Dose: 500 mg Documented By: MARK Enoxaparin Sodium (Enoxaparin Sodium 40 Mg/0.4 Ml Syringe) 40 mg SUBCUT Q24H [facility] Last Admin: 02/19/22 20:21 Dose: Not Given Documented By: EMELINA Non-Admin Reason: Patient Refused Ferrous Sulfate (Ferrous Sulfate 324 Mg Tablet.) 324 mg PO BID [facility] Last Admin: 02/20/22 09:06 Dose: 324 mg Documented By: MARK Fluticasone Propionate (Fluticasone Propionate Nasal 16 Gm [place]) 1 spray NOSTRIL-B BID [facility] Last Admin: 02/20/22 09:11 Dose: Not Given Documented By: MARK Non-Admin Reason: Patient Refused Furosemide (Furosemide 40 Mg Tablet) 40 mg PO BID@0900,1800 [facility]; Protocol Last Admin: 02/20/22 09:06 Dose: 40 mg Documented By: MARK Glucose (Glucose Gel 15 Gm Gel..Gram.) 15 gm PO Q15M PRN; Protocol PRN Reason: per Hypoglycemia Standing Ord. Haloperidol (Haloperidol 5 Mg Tablet) 10 mg PO BID [facility] Last Admin: 02/20/22 09:06 Dose: 10 mg Documented By: MARK Insulin Glargine (Insulin Glargine,Hum.Rec.Anlog 100 Unit/Ml 10 Ml Vial) 10 unit SUBCUT BEDTIME [facility] Last Admin: 02/19/22 20:21 Dose: Not Given Documented By: EMELINA Non-Admin Reason: Patient Refused Insulin Human Lispro (Insulin Lispro 100 Unit/Ml 3 Ml Vial) 0 unit SUBCUT QIDAC [facility]; Protocol Last Admin: 02/20/22 12:47 Dose: Not Given Documented By: MARK Non-Admin Reason: Patient Refused Melatonin (Melatonin 3 Mg Tablet) 6 mg PO BEDTIME PRN PRN Reason: Insomnia Last Admin: 02/19/22 20:18 Dose: 6 mg Documented By: EMELINA Metformin HCl (Metformin Hcl 500 Mg Tablet) 500 mg PO BIDWM [facility] Last Admin: 02/20/22 09:06 Dose: 500 mg Documented By: MARK Neomycin/Polymyxin/Hydrocortisone (Neomycin/Polymyxin/Hc Otic Melanie 10 Ml Drpbtl) 3 drop EAR-RIGHT QID [facility] Last Admin: 02/20/22 12:47 Dose: Not Given Documented By: MARK Non-Admin Reason: Patient Refused Olanzapine (Olanzapine Odt 10 Mg Tab.Rapdis) 5 mg TRANSLINGU BID PRN PRN Reason: agitation, psychosis Last Admin: 02/09/22 14:45 Dose: 5 mg Documented By: CIRO Omeprazole (Omeprazole 20 Mg Capsule.Dr) 20 mg PO DAILY@0630 [facility] Last Admin: 02/20/22 06:44 Dose: Not Given Documented By: EMELINA Non-Admin Reason: Patient Refused Senna (Sennosides 8.6 Mg Tablet) 17.2 mg PO BEDTIME PRN PRN Reason: Constipation Sildenafil Citrate (Sildenafil Citrate 20 Mg Tablet) 20 mg PO TID [facility] Last Admin: 02/20/22 09:06 Dose: 20 mg Documented By: MARK Sitagliptin Phosphate (Sitagliptin Phosphate 100 Mg Tablet) 100 mg PO DAILY [facility] Last Admin: 02/20/22 09:06 Dose: 100 mg Documented By: MARK Sodium Chloride (0.9 % Sodium Chloride Flush 3 Ml Syringe) 3 ml IVFLUSH QSHIFT [facility] Last Admin: 02/20/22 09:11 Dose: Not Given Documented By: MARK Non-Admin Reason: No Access Labs CBC & Chem 7: 01/16/22 05:35 02/20/22 09:20 Labs: Laboratory Results - last 24 hr 02/19/22 02/19/22 02/20/22 16:26 20:18 07:04 Estim Creat Clear Calc Estimated GFR POC Glucose 181 H 125 H 160 H 02/20/22 09:20 Estim Creat Clear Calc 84.9 Estimated GFR > 60 POC Glucose Assessment and Plan (1) Schizo affective schizophrenia: Status: Acute (2) Otitis externa: Status: Acute Plan hospital d#43 61 yo M from [facility] resident with schizophrenia, DM2, possible COPD/asthma [not formally diagnosed] p/w hypoxia + dyspnea found to have severe pulmonary HTN/R-sided HF essentially no change in care today, still awaiting placement #pulmonary HTN # R-sided HF - continue sildenafil as ordered by Pulmonology -?continue PO furosemide - outpt f/u with Pulm with consideration of R-sided cath #COPD/asthma, provisional diagnosis - outpt PFTs - continue nebs - completed a course of steroids - completed a course of doxy -wears O2 off and on, but is always above 90 #DM2 - basal/bolus insulin - sitagliptin, metformin # schizoaffective disorder - no behavioral issues at this time? - continue VPA, haloperidol - seen by psych, added prn meds? # HLD - continue statin? # GERD - continue PPI # VTE ppx: LMWH # [facility], HCP invoked, awaiting bed ? Need for inpatient stay: pending safe dispo to LTC when bed available; despite his insistence, he cannot go back to the halfway Has Med treatment plan NOT Jose order - could give IM Haldol if refuses PO Quality Stroke Does the patient have a stroke diagnosis?: No VTE Prior VTE?: No VTE Risk Level:: Medical - moderate - high VTE Device Contraindication: Treatment Not Indicated VTE Drug Contraindication: N/A - Med Ordered
[2022-02-20 15:51] VITALS: BP 103/60; PULSE 81; RESP 16; TEMP 36.2; O2SAT 93
[2022-02-20] MEDS: Divalproex Sodium ER 250 MG TAB.ER.24H PO (17:32)
[2022-02-20 20:23] LABS: Glucose, Whole Blood 159 mg/dL (60-115)
[2022-02-20 23:37] VITALS: BP 103/69; PULSE 54; RESP 18; TEMP 36.4; O2SAT 96
[2022-02-21 07:30] LABS: Glucose, Whole Blood 159 mg/dL (60-115)
--- NOTE | 2022-02-21 08:49 | MHC.CM.PN ---
SNF updates were updated yesterday and CM will continue to follow.
--- NOTE | 2022-02-21 12:23 | HO.PM.IMPN ---
Subjective Subjective Date of Service: 02/21/22 Interval History: no complaints Cardiovascular Cardiovascular: Reports no additional cardiovascular complaints Respiratory Respiratory: Reports no additional respiratory complaints Physical Exam Vital Signs: Vital Signs: Last Vital Signs Temp 97.5 F 02/20/22 23:37 Pulse 54 02/20/22 23:37 Resp 18 02/20/22 23:37 BP 103/69 02/20/22 23:37 Pulse Ox 96 02/20/22 23:37 O2 Del Method 02/20/22 23:37 O2 Flow Rate 2 02/16/22 07:18 FiO2 94 02/13/22 15:38 BMI result Body Mass Index 21.8 Gen: in no acute distress HEENT: sclera anicteric, moist mucus membranes Neck: supple Lungs: clear to auscultation bilaterally Heart: regular rate and rhythm, no murmurs Abd: soft, non-tender, non-distended Ext: no edema Skin: warm/well-perfused Neuro: alert, disoriented Psych: impaired insight ? Objective Data Active Medications Acetaminophen (Acetaminophen 325 Mg Tablet) 650 mg PO Q6H PRN PRN Reason: Pain, Mild (Pain Scale 1-3) Atorvastatin Calcium (Atorvastatin Calcium 40 Mg Tablet) 40 mg PO DAILY [facility] Last Admin: 02/21/22 10:04 Dose: Not Given Documented By: ANAT Non-Admin Reason: Patient Refused Dextrose (Dextrose 50 % 25 Gm/50 Ml Syringe) 25 gm IVPUSH Q15M PRN; Protocol PRN Reason: per Hypoglycemia Standing Ord. Divalproex Sodium (Divalproex Sodium Er 250 Mg Tab.Er.24h) 250 mg PO DAILY@1700 [facility] Last Admin: 02/20/22 17:32 Dose: 250 mg Documented By: MARK Divalproex Sodium (Divalproex Sodium Er 500 Mg Tab.Er.24h) 500 mg PO DAILY [facility] Last Admin: 02/21/22 10:10 Dose: Not Given Documented By: ANAT Non-Admin Reason: Patient Refused Enoxaparin Sodium (Enoxaparin Sodium 40 Mg/0.4 Ml Syringe) 40 mg SUBCUT Q24H [facility] Last Admin: 02/20/22 21:12 Dose: Not Given Documented By: WILNER Non-Admin Reason: Patient Refused Ferrous Sulfate (Ferrous Sulfate 324 Mg Tablet.) 324 mg PO BID [facility] Last Admin: 02/21/22 10:09 Dose: Not Given Documented By: ANAT Non-Admin Reason: Patient Refused Fluticasone Propionate (Fluticasone Propionate Nasal 16 Gm [place]) 1 spray NOSTRIL-B BID [facility] Last Admin: 02/21/22 10:09 Dose: Not Given Documented By: ANAT Non-Admin Reason: Patient Refused Furosemide (Furosemide 40 Mg Tablet) 40 mg PO BID@0900,1800 [facility]; Protocol Last Admin: 02/21/22 10:09 Dose: Not Given Documented By: ANAT Non-Admin Reason: Patient Refused Glucose (Glucose Gel 15 Gm Gel..Gram.) 15 gm PO Q15M PRN; Protocol PRN Reason: per Hypoglycemia Standing Ord. Haloperidol (Haloperidol 5 Mg Tablet) 10 mg PO BID [facility] Last Admin: 02/21/22 10:05 Dose: Not Given Documented By: ANAT Non-Admin Reason: Patient Refused Insulin Glargine (Insulin Glargine,Hum.Rec.Anlog 100 Unit/Ml 10 Ml Vial) 10 unit SUBCUT BEDTIME [facility] Last Admin: 02/20/22 21:12 Dose: Not Given Documented By: WILNER Non-Admin Reason: Patient Refused Insulin Human Lispro (Insulin Lispro 100 Unit/Ml 3 Ml Vial) 0 unit SUBCUT QIDACHS [facility]; Protocol Last Admin: 02/21/22 11:37 Dose: Not Given Documented By: ANAT Non-Admin Reason: Patient Refused Melatonin (Melatonin 3 Mg Tablet) 6 mg PO BEDTIME PRN PRN Reason: Insomnia Last Admin: 02/19/22 20:18 Dose: 6 mg Documented By: EMELINA Metformin HCl (Metformin Hcl 500 Mg Tablet) 500 mg PO BIDWM [facility] Last Admin: 02/21/22 10:04 Dose: Not Given Documented By: ANAT Non-Admin Reason: Patient Refused Neomycin/Polymyxin/Hydrocortisone (Neomycin/Polymyxin/Hc Otic Melanie 10 Ml Drpbtl) 3 drop EAR-RIGHT QID [facility] Last Admin: 02/21/22 10:05 Dose: Not Given Documented By: ANAT Non-Admin Reason: Patient Refused Olanzapine (Olanzapine Odt 10 Mg Tab.Rapdis) 5 mg TRANSLINGU BID PRN PRN Reason: agitation, psychosis Last Admin: 02/09/22 14:45 Dose: 5 mg Documented By: CIRO Omeprazole (Omeprazole 20 Mg [place].) 20 mg PO DAILY@0630 [facility] Last Admin: 02/21/22 05:51 Dose: Not Given Documented By: ANA Non-Admin Reason: Patient Refused Senna (Sennosides 8.6 Mg Tablet) 17.2 mg PO BEDTIME PRN PRN Reason: Constipation Sildenafil Citrate (Sildenafil Citrate 20 Mg Tablet) 20 mg PO TID [facility] Last Admin: 02/21/22 10:06 Dose: Not Given Documented By: ANAT Non-Admin Reason: Patient Refused Sitagliptin Phosphate (Sitagliptin Phosphate 100 Mg Tablet) 100 mg PO DAILY [facility] Last Admin: 02/21/22 10:09 Dose: Not Given Documented By: ANAT Non-Admin Reason: Patient Refused Sodium Chloride (0.9 % Sodium Chloride Flush 3 Ml Syringe) 3 ml IVFLUSH QSHIFT [facility] Last Admin: 02/21/22 10:04 Dose: Not Given Documented By: ANAT Non-Admin Reason: No Access Labs CBC & Chem 7: 01/16/22 05:35 02/20/22 09:20 Labs: Laboratory Results - last 24 hr 02/20/22 02/21/22 20:04 07:21 POC Glucose 159 H 159 H Assessment and Plan (1) Schizo affective schizophrenia: Status: Acute (2) Otitis externa: Status: Acute Plan hospital d#44 61 yo M from care home resident with schizophrenia, DM2, possible COPD/asthma [not formally diagnosed] p/w hypoxia + dyspnea found to have severe pulmonary HTN/R-sided HF essentially no change in care today, still awaiting placement #pulmonary HTN # R-sided HF - continue sildenafil as ordered by Pulmonology -?continue PO furosemide - outpt f/u with Pulm with consideration of R-sided cath #COPD/asthma, provisional diagnosis - outpt PFTs - continue nebs - completed a course of steroids - completed a course of doxy -wears O2 off and on, but is always above 90 #DM2 - basal/bolus insulin - sitagliptin, metformin # schizoaffective disorder - no behavioral issues at this time? - continue VPA, haloperidol - seen by psych, added prn meds? # HLD - continue statin? # GERD - continue PPI # VTE ppx: LMWH # dispo: cannot go back to [facility], plan to dc to LTC, HCP invoked, awaiting bed ? Need for inpatient stay: pending safe dispo to LTC when bed available; despite his insistence, he cannot go back to the care home Has Med treatment plan NOT Garcia order - could give IM Haldol if refuses PO Quality Stroke Does the patient have a stroke diagnosis?: No VTE Prior VTE?: No VTE Risk Level:: Medical - moderate - high VTE Device Contraindication: Treatment Not Indicated VTE Drug Contraindication: N/A - Med Ordered
--- NOTE | 2022-02-21 13:20 | MHC.CM.PN ---
CM has placed a copy of the Garcia Guardianship on the Patient's chart.
[2022-02-21 15:39] VITALS: BP 100/55; PULSE 67; RESP 18; TEMP 37.1; O2SAT 94
[2022-02-21 17:23] LABS: Glucose, Whole Blood 132 mg/dL (60-115)
[2022-02-21] MEDS: Divalproex Sodium ER 250 MG TAB.ER.24H PO (17:57)
[2022-02-21] MEDS: metFORMIN HCl 500 MG TABLET PO (17:57)
[2022-02-21] MEDS: Furosemide 40 MG TABLET PO (17:57)
[2022-02-21] MEDS: NeoMYCIN/Polymyxin/HC Otic Sus 10 ML DRPBTL 3 DROP EAR-RIGHT (18:02)
[2022-02-21 20:09] LABS: Glucose, Whole Blood 138 mg/dL (60-115)
[2022-02-21] MEDS: Insulin Glargine,Hum.rec.anlog 100 UNIT/ML 10 ML VIAL 10 UNIT SUBCUT (20:44)
[2022-02-21] MEDS: Sildenafil Citrate 20 MG TABLET PO (20:46)
[2022-02-21] MEDS: HaloperidoL 5 MG TABLET 10 MG PO (20:46)
[2022-02-21] MEDS: Ferrous Sulfate 324 MG TABLET.DR PO (20:46)
[2022-02-21 23:36] VITALS: BP 100/61; PULSE 59; RESP 18; TEMP 36.1; O2SAT 95
[2022-02-22] MEDS: Omeprazole 20 MG CAPSULE.DR PO (05:34)
[2022-02-22 07:35] LABS: Glucose, Whole Blood 152 mg/dL (60-115)
[2022-02-22 08:00] VITALS: BP 90/62; PULSE 53; RESP 20; TEMP 36.2; O2SAT 94
[2022-02-22] MEDS: Ferrous Sulfate 324 MG TABLET.DR PO ×2 (09:09→20:34)
[2022-02-22] MEDS: Sildenafil Citrate 20 MG TABLET PO ×2 (09:09→20:35)
[2022-02-22] MEDS: HaloperidoL 5 MG TABLET 10 MG PO ×2 (09:09→20:34)
[2022-02-22] MEDS: metFORMIN HCl 500 MG TABLET PO ×2 (09:09→17:41)
[2022-02-22] MEDS: Atorvastatin Calcium 40 MG TABLET PO (09:09)
[2022-02-22] MEDS: SITagliptin Phosphate 100 MG TABLET PO (09:09)
[2022-02-22] MEDS: Furosemide 40 MG TABLET PO ×2 (09:10→17:49)
[2022-02-22] MEDS: Divalproex Sodium ER 500 MG TAB.ER.24H PO (09:10)
[2022-02-22] MEDS: NeoMYCIN/Polymyxin/HC Otic Sus 10 ML DRPBTL 3 DROP EAR-RIGHT (09:13)
--- NOTE | 2022-02-22 09:25 | P.PNIM_ITS ---
Subjective Subjective Date of Service: 02/22/22 Interval History: no complaints Cardiovascular Cardiovascular: Reports no additional cardiovascular complaints Respiratory Respiratory: Reports no additional respiratory complaints Physical Exam Vital Signs: Vital Signs: Last Vital Signs Temp 97.1 F 02/22/22 08:00 Pulse 53 02/22/22 08:00 Resp 20 02/22/22 08:00 BP 90/62 02/22/22 08:00 Pulse Ox 94 02/22/22 08:00 O2 Del Method 02/22/22 08:00 O2 Flow Rate 2 02/16/22 07:18 FiO2 94 02/13/22 15:38 BMI result Body Mass Index 21.8 Gen: in no acute distress HEENT: sclera anicteric, moist mucus membranes Neck: supple Lungs: clear to auscultation bilaterally Heart: regular rate and rhythm, no murmurs Abd: soft, non-tender, non-distended Ext: no edema Skin: warm/well-perfused Neuro: alert, disoriented Psych: impaired insight ? Objective Data Active Medications Acetaminophen (Acetaminophen 325 Mg Tablet) 650 mg PO Q6H PRN PRN Reason: Pain, Mild (Pain Scale 1-3) Atorvastatin Calcium (Atorvastatin Calcium 40 Mg Tablet) 40 mg PO DAILY [facility] Last Admin: 02/22/22 09:09 Dose: 40 mg Documented By: ANAT Dextrose (Dextrose 50 % 25 Gm/50 Ml Syringe) 25 gm IVPUSH Q15M PRN; Protocol PRN Reason: per Hypoglycemia Standing Ord. Divalproex Sodium (Divalproex Sodium Er 250 Mg Tab.Er.24h) 250 mg PO DAILY@1700 [facility] Last Admin: 02/21/22 17:57 Dose: 250 mg Documented By: NATHAN Divalproex Sodium (Divalproex Sodium Er 500 Mg Tab.Er.24h) 500 mg PO DAILY [facility] Last Admin: 02/22/22 09:10 Dose: 500 mg Documented By: ANAT Enoxaparin Sodium (Enoxaparin Sodium 40 Mg/0.4 Ml Syringe) 40 mg SUBCUT Q24H [facility] Last Admin: 02/21/22 20:54 Dose: Not Given Documented By: NATHAN Non-Admin Reason: Patient Refused Ferrous Sulfate (Ferrous Sulfate 324 Mg Verito.) 324 mg PO BID [facility] Last Admin: 02/22/22 09:09 Dose: 324 mg Documented By: ANAT Fluticasone Propionate (Fluticasone Propionate Nasal 16 Gm [place]) 1 spray NOSTRIL-B BID [facility] Last Admin: 02/21/22 20:54 Dose: Not Given Documented By: NATHAN Non-Admin Reason: Patient Refused Furosemide (Furosemide 40 Mg Tablet) 40 mg PO BID@0900,1800 [facility]; Protocol Last Admin: 02/22/22 09:10 Dose: 40 mg Documented By: ANAT Glucose (Glucose Gel 15 Gm Gel..Gram.) 15 gm PO Q15M PRN; Protocol PRN Reason: per Hypoglycemia Standing Ord. Haloperidol (Haloperidol 5 Mg Tablet) 10 mg PO BID [facility] Last Admin: 02/22/22 09:09 Dose: 10 mg Documented By: ANAT Insulin Glargine (Insulin Glargine,Hum.Rec.Anlog 100 Unit/Ml 10 Ml Vial) 10 unit SUBCUT BEDTIME [facility] Last Admin: 02/21/22 20:44 Dose: 10 unit Documented By: NATHAN Insulin Human Lispro (Insulin Lispro 100 Unit/Ml 3 Ml Vial) 0 unit SUBCUT QIDACHS [facility]; Protocol Last Admin: 02/22/22 09:09 Dose: Not Given Documented By: ANAT Non-Admin Reason: Patient Refused Melatonin (Melatonin 3 Mg Tablet) 6 mg PO BEDTIME PRN PRN Reason: Insomnia Last Admin: 02/19/22 20:18 Dose: 6 mg Documented By: EMELINA Metformin HCl (Metformin Hcl 500 Mg Tablet) 500 mg PO BIDWM [facility] Last Admin: 02/22/22 09:09 Dose: 500 mg Documented By: ANAT Neomycin/Polymyxin/Hydrocortisone (Neomycin/Polymyxin/Hc Otic Melanie 10 Ml Drpbtl) 3 drop EAR-RIGHT QID [facility] Last Admin: 02/22/22 09:13 Dose: 3 drop Documented By: ANAT Olanzapine (Olanzapine Odt 10 Mg Tab.Rapdis) 5 mg TRANSLINGU BID PRN PRN Reason: agitation, psychosis Last Admin: 02/09/22 14:45 Dose: 5 mg Documented By: CIRO Omeprazole (Omeprazole 20 Mg Capsule.) 20 mg PO DAILY@0630 [facility] Last Admin: 02/22/22 05:34 Dose: 20 mg Documented By: HO.WYSK Senna (Sennosides 8.6 Mg Tablet) 17.2 mg PO BEDTIME PRN PRN Reason: Constipation Sildenafil Citrate (Sildenafil Citrate 20 Mg Tablet) 20 mg PO TID [facility] Last Admin: 02/22/22 09:09 Dose: 20 mg Documented By: ANAT Sitagliptin Phosphate (Sitagliptin Phosphate 100 Mg Tablet) 100 mg PO DAILY [facility] Last Admin: 02/22/22 09:09 Dose: 100 mg Documented By: ANAT Sodium Chloride (0.9 % Sodium Chloride Flush 3 Ml Syringe) 3 ml IVFLUSH QSHIFT [facility] Last Admin: 02/22/22 09:24 Dose: Not Given Documented By: ANAT Non-Admin Reason: No Access Labs CBC & Chem 7: 01/16/22 05:35 02/20/22 09:20 Labs: Laboratory Results - last 24 hr 02/21/22 02/21/22 02/22/22 17:17 20:02 07:30 POC Glucose 132 H 138 H 152 H Assessment and Plan (1) Schizo affective schizophrenia: Status: Acute (2) Otitis externa: Status: Acute Plan hospital d#[id number] 61 yo M from [facility] resident with schizophrenia, DM2, possible COPD/asthma [not formally diagnosed] p/w hypoxia + dyspnea found to have severe pulmonary HTN/R-sided HF essentially no change in care today, still awaiting placement #pulmonary HTN # R-sided HF - continue sildenafil as ordered by Pulmonology -?continue PO furosemide - outpt f/u with Pulm with consideration of R-sided cath #COPD/asthma, provisional diagnosis - outpt PFTs - continue nebs - completed a course of steroids - completed a course of doxy -wears O2 off and on, but is always above 90 #DM2 - basal/bolus insulin - sitagliptin, metformin # schizoaffective disorder - no behavioral issues at this time? - continue VPA, haloperidol - seen by psych, added prn meds? # HLD - continue statin? # GERD - continue PPI # VTE ppx: LMWH # dispo: cannot go back to [place], plan to dc to LTC, HCP invoked, awaiting bed ? Need for inpatient stay: pending safe dispo to LTC when bed available; despite his insistence, he cannot go back to the [facility] Has Med treatment plan NOT Garcia order - could give IM Haldol if refuses PO Quality Stroke Does the patient have a stroke diagnosis?: No VTE Prior VTE?: No VTE Risk Level:: Medical - moderate - high VTE Device Contraindication: Treatment Not Indicated VTE Drug Contraindication: N/A - Med Ordered
[2022-02-22 11:19] LABS: Glucose, Whole Blood 165 mg/dL (60-115)
[2022-02-22 15:07] VITALS: BP 91/69; PULSE 84; RESP 16; TEMP 36.7; O2SAT 93
[2022-02-22 16:16] LABS: Glucose, Whole Blood 160 mg/dL (60-115)
[2022-02-22] MEDS: Insulin Lispro 100 UNIT/ML 3 ML VIAL SUBCUT (17:42)
[2022-02-22] MEDS: Divalproex Sodium ER 250 MG TAB.ER.24H PO (17:42)
[2022-02-22 17:47] VITALS: BP 107/68; PULSE 65; RESP 20; TEMP 36.8; O2SAT 94
[2022-02-22 20:05] LABS: Glucose, Whole Blood 150 mg/dL (60-115)
[2022-02-22] MEDS: Insulin Glargine,Hum.rec.anlog 100 UNIT/ML 10 ML VIAL 10 UNIT SUBCUT (20:32)
[2022-02-22 20:33] VITALS: BP 112/69; PULSE 65
[2022-02-22] MEDS: Enoxaparin Sodium 40 MG/0.4 ML SYRINGE SUBCUT (20:33)
[2022-02-23 01:00] VITALS: RESP 20
[2022-02-23 07:30] VITALS: BP 90/69; PULSE 67; RESP 17; TEMP 36.1; O2SAT 94
[2022-02-23 07:36] LABS: Glucose, Whole Blood 147 mg/dL (60-115)
--- NOTE | 2022-02-23 09:39 | P.PNIM_ITS ---
Subjective Subjective Date of Service: 02/23/22 Interval History: no complaints Cardiovascular Cardiovascular: Reports no additional cardiovascular complaints Respiratory Respiratory: Reports no additional respiratory complaints Physical Exam Vital Signs: Vital Signs: Last Vital Signs Temp 97 F 02/23/22 07:30 Pulse 67 02/23/22 07:30 Resp 17 02/23/22 07:30 BP 90/69 02/23/22 07:30 Pulse Ox 94 02/23/22 07:30 O2 Del Method 02/23/22 07:30 O2 Flow Rate 2 02/16/22 07:18 FiO2 94 02/13/22 15:38 BMI result Body Mass Index 21.8 Gen: in no acute distress HEENT: sclera anicteric, moist mucus membranes Neck: supple Lungs: clear to auscultation bilaterally Heart: regular rate and rhythm, no murmurs Abd: soft, non-tender, non-distended Ext: no edema Skin: warm/well-perfused Neuro: alert, disoriented Psych: impaired insight ? Objective Data Active Medications Acetaminophen (Acetaminophen 325 Mg Tablet) 650 mg PO Q6H PRN PRN Reason: Pain, Mild (Pain Scale 1-3) Atorvastatin Calcium (Atorvastatin Calcium 40 Mg Tablet) 40 mg PO DAILY [facility] Last Admin: 02/22/22 09:09 Dose: 40 mg Documented By: ANAT Dextrose (Dextrose 50 % 25 Gm/50 Ml Syringe) 25 gm IVPUSH Q15M PRN; Protocol PRN Reason: per Hypoglycemia Standing Ord. Divalproex Sodium (Divalproex Sodium Er 250 Mg Tab.Er.24h) 250 mg PO DAILY@1700 [facility] Last Admin: 02/22/22 17:42 Dose: 250 mg Documented By: NATHAN Divalproex Sodium (Divalproex Sodium Er 500 Mg Tab.Er.24h) 500 mg PO DAILY [facility] Last Admin: 02/22/22 09:10 Dose: 500 mg Documented By: ANAT Enoxaparin Sodium (Enoxaparin Sodium 40 Mg/0.4 Ml Syringe) 40 mg SUBCUT Q24H [facility] Last Admin: 02/22/22 20:33 Dose: 40 mg Documented By: NATHAN Ferrous Sulfate (Ferrous Sulfate 324 Mg Tablet.) 324 mg PO BID [facility] Last Admin: 02/22/22 20:34 Dose: 324 mg Documented By: NATHAN Fluticasone Propionate (Fluticasone Propionate Nasal 16 Gm [place]) 1 spray NOSTRIL-B BID [facility] Last Admin: 02/22/22 20:35 Dose: Not Given Documented By: NATHAN Non-Admin Reason: Patient Refused Furosemide (Furosemide 40 Mg Tablet) 40 mg PO BID@0900,1800 [facility]; Protocol Last Admin: 02/22/22 17:49 Dose: 40 mg Documented By: NATHAN Glucose (Glucose Gel 15 Gm Gel..Gram.) 15 gm PO Q15M PRN; Protocol PRN Reason: per Hypoglycemia Standing Ord. Haloperidol (Haloperidol 5 Mg Tablet) 10 mg PO BID [facility] Last Admin: 02/22/22 20:34 Dose: 10 mg Documented By: NATHAN Insulin Glargine (Insulin Glargine,Hum.Rec.Anlog 100 Unit/Ml 10 Ml Vial) 10 unit SUBCUT BEDTIME [facility] Last Admin: 02/22/22 20:32 Dose: 10 unit Documented By: NATHAN Insulin Human Lispro (Insulin Lispro 100 Unit/Ml 3 Ml Vial) 0 unit SUBCUT QIDACHS [facility]; Protocol Last Admin: 02/22/22 20:26 Dose: Not Given Documented By: NATHAN Non-Admin Reason: No Insulin Coverage Melatonin (Melatonin 3 Mg Tablet) 6 mg PO BEDTIME PRN PRN Reason: Insomnia Last Admin: 02/19/22 20:18 Dose: 6 mg Documented By: EMELINA Metformin HCl (Metformin Hcl 500 Mg Tablet) 500 mg PO BIDWM [facility] Last Admin: 02/22/22 17:41 Dose: 500 mg Documented By: NATHAN Neomycin/Polymyxin/Hydrocortisone (Neomycin/Polymyxin/Hc Otic Melanie 10 Ml Drpbtl) 3 drop EAR-RIGHT QID [facility] Last Admin: 02/22/22 20:26 Dose: Not Given Documented By: NATHAN Non-Admin Reason: Patient Refused Olanzapine (Olanzapine Odt 10 Mg Tab.Rapdis) 5 mg TRANSLINGU BID PRN PRN Reason: agitation, psychosis Last Admin: 02/09/22 14:45 Dose: 5 mg Documented By: CIRO Omeprazole (Omeprazole 20 Mg Capsule.) 20 mg PO DAILY@0630 [facility] Last Admin: 02/23/22 06:22 Dose: Not Given Documented By: KEVIN Non-Admin Reason: Patient Refused Senna (Sennosides 8.6 Mg Tablet) 17.2 mg PO BEDTIME PRN PRN Reason: Constipation Sildenafil Citrate (Sildenafil Citrate 20 Mg Tablet) 20 mg PO TID [facility] Last Admin: 02/22/22 20:35 Dose: 20 mg Documented By: NATHAN Sitagliptin Phosphate (Sitagliptin Phosphate 100 Mg Tablet) 100 mg PO DAILY [facility] Last Admin: 02/22/22 09:09 Dose: 100 mg Documented By: ANAT Sodium Chloride (0.9 % Sodium Chloride Flush 3 Ml Syringe) 3 ml IVFLUSH QSHIFT [facility] Last Admin: 02/23/22 01:13 Dose: Not Given Documented By: KEVIN Non-Admin Reason: No Access Labs CBC & Chem 7: 01/16/22 05:35 02/20/22 09:20 Labs: Laboratory Results - last 24 hr 02/22/22 02/22/22 02/22/22 11:15 16:10 20:00 POC Glucose 165 H 160 H 150 H 02/23/22 07:32 POC Glucose 147 H Assessment and Plan (1) Schizo affective schizophrenia: Status: Acute (2) Otitis externa: Status: Acute Plan hospital d#45 61 yo M from [facility] resident with schizophrenia, DM2, possible COPD/asthma [not formally diagnosed] p/w hypoxia + dyspnea found to have severe pulmonary HTN/R-sided HF essentially no change in care today, still awaiting placement #pulmonary HTN # R-sided HF - continue sildenafil as ordered by Pulmonology -?continue PO furosemide - outpt f/u with Pulm with consideration of R-sided cath #COPD/asthma, provisional diagnosis - outpt PFTs - continue nebs - completed a course of steroids - completed a course of doxy -wears O2 off and on, but is always above 90 #DM2 - basal/bolus insulin - sitagliptin, metformin # schizoaffective disorder - no behavioral issues at this time? - continue VPA, haloperidol - seen by psych, added prn meds? # HLD - continue statin? # GERD - continue PPI # VTE ppx: LMWH # dispo: cannot go back to [facility], plan to dc to LTC, HCP invoked, awaiting bed ? Need for inpatient stay: pending safe dispo to LTC when bed available; despite his insistence, [facility] to [facility] Has Med treatment plan NOT Jose order - could give IM Haldol if refuses PO Quality Stroke Does the patient have a stroke diagnosis?: No VTE Prior VTE?: No VTE Risk Level:: Medical - moderate - high VTE Device Contraindication: Treatment Not Indicated VTE Drug Contraindication: N/A - Med Ordered
[2022-02-23] MEDS: Furosemide 40 MG TABLET PO ×2 (10:45→16:46)
[2022-02-23] MEDS: Divalproex Sodium ER 500 MG TAB.ER.24H PO (10:45)
[2022-02-23] MEDS: Sildenafil Citrate 20 MG TABLET PO ×2 (10:45→22:16)
[2022-02-23] MEDS: metFORMIN HCl 500 MG TABLET PO ×2 (10:45→16:46)
[2022-02-23] MEDS: Atorvastatin Calcium 40 MG TABLET PO (10:45)
[2022-02-23] MEDS: HaloperidoL 5 MG TABLET 10 MG PO ×2 (10:45→22:08)
[2022-02-23] MEDS: SITagliptin Phosphate 100 MG TABLET PO (10:46)
[2022-02-23] MEDS: Ferrous Sulfate 324 MG TABLET.DR PO ×2 (10:46→22:09)
[2022-02-23 15:23] VITALS: BP 119/59; PULSE 71; RESP 20; TEMP 36.8; O2SAT 95
[2022-02-23 15:34] LABS: Glucose, Whole Blood 218 mg/dL (60-115)
[2022-02-23] MEDS: Divalproex Sodium ER 250 MG TAB.ER.24H PO (16:45)
[2022-02-23] MEDS: Insulin Lispro 100 UNIT/ML 3 ML VIAL SUBCUT (16:45)
[2022-02-23 19:42] LABS: Glucose, Whole Blood 110 mg/dL (60-115)
[2022-02-23] MEDS: Enoxaparin Sodium 40 MG/0.4 ML SYRINGE SUBCUT (22:09)
[2022-02-23] MEDS: Insulin Glargine,Hum.rec.anlog 100 UNIT/ML 10 ML VIAL 10 UNIT SUBCUT (22:10)
[2022-02-23 22:17] VITALS: BP 109/69; PULSE 56
--- NOTE | 2022-02-24 05:51 | PC.NURSE ---
patient refused labs this morning
[2022-02-24 07:27] VITALS: BP 90/61; PULSE 55; RESP 17; TEMP 36.1; O2SAT 94
[2022-02-24 07:37] LABS: Glucose, Whole Blood 156 mg/dL (60-115)
--- NOTE | 2022-02-24 10:31 | HO.PM.IMPN ---
Subjective Subjective Date of Service: 02/24/22 Interval History: no complaints Cardiovascular Cardiovascular: Reports no additional cardiovascular complaints Respiratory Respiratory: Reports no additional respiratory complaints Physical Exam Vital Signs: Vital Signs: Last Vital Signs Temp 97 F 02/24/22 07:27 Pulse 55 02/24/22 07:27 Resp 17 02/24/22 07:27 BP 90/61 02/24/22 07:27 Pulse Ox 94 02/24/22 07:27 O2 Del Method 02/24/22 07:27 O2 Flow Rate 2 02/16/22 07:18 FiO2 94 02/13/22 15:38 BMI result Body Mass Index 21.8 Gen: in no acute distress HEENT: sclera anicteric, moist mucus membranes Neck: supple Lungs: clear to auscultation bilaterally Heart: regular rate and rhythm, no murmurs Abd: soft, non-tender, non-distended Ext: no edema Skin: warm/well-perfused Neuro: alert, disoriented Psych: impaired insight ? Objective Data Active Medications Acetaminophen (Acetaminophen 325 Mg Tablet) 650 mg PO Q6H PRN PRN Reason: Pain, Mild (Pain Scale 1-3) Atorvastatin Calcium (Atorvastatin Calcium 40 Mg Tablet) 40 mg PO DAILY [facility] Last Admin: 02/23/22 10:45 Dose: 40 mg Documented By: ANAT Dextrose (Dextrose 50 % 25 Gm/50 Ml Syringe) 25 gm IVPUSH Q15M PRN; Protocol PRN Reason: per Hypoglycemia Standing Ord. Divalproex Sodium (Divalproex Sodium Er 250 Mg Tab.Er.24h) 250 mg PO DAILY@1700 [facility] Last Admin: 02/23/22 16:45 Dose: 250 mg Documented By: NATHAN Divalproex Sodium (Divalproex Sodium Er 500 Mg Tab.Er.24h) 500 mg PO DAILY [facility] Last Admin: 02/23/22 10:45 Dose: 500 mg Documented By: ANAT Enoxaparin Sodium (Enoxaparin Sodium 40 Mg/0.4 Ml Syringe) 40 mg SUBCUT Q24H [facility] Last Admin: 02/23/22 22:09 Dose: 40 mg Documented By: NATHAN Ferrous Sulfate (Ferrous Sulfate 324 Mg Tablet.) 324 mg PO BID [facility] Last Admin: 02/23/22 22:09 Dose: 324 mg Documented By: NATHAN Fluticasone Propionate (Fluticasone Propionate Nasal 16 Gm [place]) 1 spray NOSTRIL-B BID [facility] Last Admin: 02/23/22 22:17 Dose: Not Given Documented By: NATHAN Non-Admin Reason: Patient Refused Furosemide (Furosemide 40 Mg Tablet) 40 mg PO BID@0900,1800 [facility]; Protocol Last Admin: 02/23/22 16:46 Dose: 40 mg Documented By: NATHAN Glucose (Glucose Gel 15 Gm Gel..Gram.) 15 gm PO Q15M PRN; Protocol PRN Reason: per Hypoglycemia Standing Ord. Haloperidol (Haloperidol 5 Mg Tablet) 10 mg PO BID [facility] Last Admin: 02/23/22 22:08 Dose: 10 mg Documented By: NATHAN Insulin Glargine (Insulin Glargine,Hum.Rec.Anlog 100 Unit/Ml 10 Ml Vial) 10 unit SUBCUT BEDTIME [facility] Last Admin: 02/23/22 22:10 Dose: 10 unit Documented By: NATHAN Insulin Human Lispro (Insulin Lispro 100 Unit/Ml 3 Ml Vial) 0 unit SUBCUT QIDACHS [facility]; Protocol Last Admin: 02/23/22 21:57 Dose: Not Given Melatonin (Melatonin 3 Mg Tablet) 6 mg PO BEDTIME PRN PRN Reason: Insomnia Last Admin: 02/19/22 20:18 Dose: 6 mg Documented By: EMELINA Metformin HCl (Metformin Hcl 500 Mg Tablet) 500 mg PO BIDWM [facility] Last Admin: 02/23/22 16:46 Dose: 500 mg Documented By: NATHAN Neomycin/Polymyxin/Hydrocortisone (Neomycin/Polymyxin/Hc Otic Melanie 10 Ml Drpbtl) 3 drop EAR-RIGHT QID [facility] Last Admin: 02/23/22 22:17 Dose: Not Given Documented By: NATHAN Non-Admin Reason: Patient Refused Olanzapine (Olanzapine Odt 10 Mg Tab.Rapdis) 5 mg TRANSLINGU BID PRN PRN Reason: agitation, psychosis Last Admin: 02/09/22 14:45 Dose: 5 mg Documented By: CIRO Omeprazole (Omeprazole 20 Mg Capsule.) 20 mg PO DAILY@0630 [facility] Last Admin: 02/24/22 05:55 Dose: Not Given Documented By: LOGAN Non-Admin Reason: Patient Refused Senna (Sennosides 8.6 Mg Tablet) 17.2 mg PO BEDTIME PRN PRN Reason: Constipation Sildenafil Citrate (Sildenafil Citrate 20 Mg Tablet) 20 mg PO TID [facility] Last Admin: 02/23/22 22:16 Dose: 20 mg Documented By: NATHAN Sitagliptin Phosphate (Sitagliptin Phosphate 100 Mg Tablet) 100 mg PO DAILY [facility] Last Admin: 02/23/22 10:46 Dose: 100 mg Documented By: ANAT Sodium Chloride (0.9 % Sodium Chloride Flush 3 Ml Syringe) 3 ml IVFLUSH QSHIFT [facility] Last Admin: 02/24/22 07:54 Dose: Not Given Documented By: MOSHE Non-Admin Reason: No Access Labs CBC & Chem 7: 01/16/22 05:35 02/20/22 09:20 Labs: Laboratory Results - last 24 hr 02/23/22 02/23/22 02/24/22 15:26 19:35 07:30 POC Glucose 218 H 110 156 H Assessment and Plan (1) Schizo affective schizophrenia: Status: Acute (2) Otitis externa: Status: Acute Plan hospital d#46 61 yo M from [facility] resident with schizophrenia, DM2, possible COPD/asthma [not formally diagnosed] p/w hypoxia + dyspnea found to have severe pulmonary HTN/R-sided HF essentially no change in care today, still awaiting placement #pulmonary HTN # R-sided HF - continue sildenafil as ordered by Pulmonology -?continue PO furosemide - outpt f/u with Pulm with consideration of R-sided cath #COPD/asthma, provisional diagnosis - outpt PFTs - continue nebs - completed a course of steroids - completed a course of doxy -wears O2 off and on, but is always above 90 #DM2 - basal/bolus insulin - sitagliptin, metformin # schizoaffective disorder - no behavioral issues at this time? - continue VPA, haloperidol - seen by psych, added prn meds? # HLD - continue statin? # GERD - continue PPI # VTE ppx: LMWH # dispo: cannot go back to [facility], plan to dc to LTC, HCP invoked, awaiting bed ? Need for inpatient stay: pending safe dispo to LTC when bed available; despite his insistence, he cannot go back to the alf Has Med treatment plan NOT Garcia order - could give IM Haldol if refuses PO Quality Stroke Does the patient have a stroke diagnosis?: No VTE Prior VTE?: No VTE Risk Level:: Medical - moderate - high VTE Device Contraindication: Treatment Not Indicated VTE Drug Contraindication: N/A - Med Ordered
[2022-02-24] MEDS: HaloperidoL 5 MG TABLET 10 MG PO (12:07)
[2022-02-24] MEDS: Ferrous Sulfate 324 MG TABLET.DR PO (12:07)
[2022-02-24] MEDS: Divalproex Sodium ER 500 MG TAB.ER.24H PO (12:07)
[2022-02-24] MEDS: Atorvastatin Calcium 40 MG TABLET PO (12:07)
[2022-02-24] MEDS: SITagliptin Phosphate 100 MG TABLET PO (12:07)
[2022-02-24] MEDS: metFORMIN HCl 500 MG TABLET PO ×2 (12:07→17:35)
[2022-02-24] MEDS: Sildenafil Citrate 20 MG TABLET PO (12:08)
[2022-02-24 12:16] VITALS: BP 107/71; PULSE 74; RESP 19; TEMP 36.4; O2SAT 94
[2022-02-24 15:37] VITALS: RESP 18
[2022-02-24 16:38] LABS: Glucose, Whole Blood 116 mg/dL (60-115)
[2022-02-24] MEDS: Divalproex Sodium ER 250 MG TAB.ER.24H PO (17:35)
[2022-02-24 20:17] LABS: Glucose, Whole Blood 177 mg/dL (60-115)
[2022-02-25 07:22] VITALS: BP 94/66; PULSE 65; RESP 16; TEMP 36.3; O2SAT 93
[2022-02-25 07:28] LABS: Glucose, Whole Blood 149 mg/dL (60-115)
--- NOTE | 2022-02-25 09:39 | HO.PM.IMPN ---
Subjective Subjective Date of Service: 02/25/22 Interval History: no complaints Cardiovascular Cardiovascular: Reports no additional cardiovascular complaints Respiratory Respiratory: Reports no additional respiratory complaints Physical Exam Vital Signs: Vital Signs: Last Vital Signs Temp 97.3 F 02/25/22 07:22 Pulse 65 02/25/22 07:22 Resp 16 02/25/22 07:22 BP 94/66 02/25/22 07:22 Pulse Ox 93 02/25/22 07:22 O2 Del Method 02/25/22 07:22 O2 Flow Rate 2 02/16/22 07:18 FiO2 94 02/13/22 15:38 BMI result Body Mass Index 21.8 Gen: in no acute distress HEENT: sclera anicteric, moist mucus membranes Neck: supple Lungs: clear to auscultation bilaterally Heart: regular rate and rhythm, no murmurs Abd: soft, non-tender, non-distended Ext: no edema Skin: warm/well-perfused Neuro: alert, disoriented Psych: impaired insight ? Objective Data Active Medications Acetaminophen (Acetaminophen 325 Mg Tablet) 650 mg PO Q6H PRN PRN Reason: Pain, Mild (Pain Scale 1-3) Atorvastatin Calcium (Atorvastatin Calcium 40 Mg Tablet) 40 mg PO DAILY [facility] Last Admin: 02/25/22 09:16 Dose: Not Given Documented By: SWETHA Non-Admin Reason: Patient Refused Dextrose (Dextrose 50 % 25 Gm/50 Ml Syringe) 25 gm IVPUSH Q15M PRN; Protocol PRN Reason: per Hypoglycemia Standing Ord. Divalproex Sodium (Divalproex Sodium Er 250 Mg Tab.Er.24h) 250 mg PO DAILY@1700 [facility] Last Admin: 02/24/22 17:35 Dose: 250 mg Documented By: MSOHE Divalproex Sodium (Divalproex Sodium Er 500 Mg Tab.Er.24h) 500 mg PO DAILY [facility] Last Admin: 02/25/22 09:17 Dose: Not Given Documented By: SWETHA Non-Admin Reason: Patient Refused Enoxaparin Sodium (Enoxaparin Sodium 40 Mg/0.4 Ml Syringe) 40 mg SUBCUT Q24H [facility] Last Admin: 02/24/22 21:25 Dose: Not Given Documented By: SAVAGE Non-Admin Reason: Patient Refused Ferrous Sulfate (Ferrous Sulfate 324 Mg Tablet.) 324 mg PO BID [facility] Last Admin: 02/25/22 09:17 Dose: Not Given Documented By: SWETHA Non-Admin Reason: Patient Refused Fluticasone Propionate (Fluticasone Propionate Nasal 16 Gm [place]) 1 spray NOSTRIL-B BID [facility] Last Admin: 02/25/22 09:17 Dose: Not Given Documented By: SWETHA Non-Admin Reason: Patient Refused Furosemide (Furosemide 40 Mg Tablet) 40 mg PO BID@0900,1800 [facility]; Protocol Last Admin: 02/25/22 09:17 Dose: Not Given Documented By: SWETHA Non-Admin Reason: Patient Refused Glucose (Glucose Gel 15 Gm Gel..Gram.) 15 gm PO Q15M PRN; Protocol PRN Reason: per Hypoglycemia Standing Ord. Haloperidol (Haloperidol 5 Mg Tablet) 10 mg PO BID [facility] Last Admin: 02/25/22 09:18 Dose: Not Given Documented By: SWETHA Non-Admin Reason: Patient Refused Insulin Glargine (Insulin Glargine,Hum.Rec.Anlog 100 Unit/Ml 10 Ml Vial) 10 unit SUBCUT BEDTIME [facility] Last Admin: 02/24/22 21:26 Dose: Not Given Documented By: NICRISScooby Non-Admin Reason: Patient Refused Insulin Human Lispro (Insulin Lispro 100 Unit/Ml 3 Ml Vial) 0 unit SUBCUT QIDACHS [facility]; Protocol Last Admin: 02/25/22 07:33 Dose: Not Given Documented By: SWETHA Non-Admin Reason: No Insulin Coverage Melatonin (Melatonin 3 Mg Tablet) 6 mg PO BEDTIME PRN PRN Reason: Insomnia Last Admin: 02/19/22 20:18 Dose: 6 mg Documented By: EMELINA Metformin HCl (Metformin Hcl 500 Mg Tablet) 500 mg PO BIDWM [facility] Last Admin: 02/25/22 09:15 Dose: Not Given Documented By: SWETHA Non-Admin Reason: Patient Refused Neomycin/Polymyxin/Hydrocortisone (Neomycin/Polymyxin/Hc Otic Melanie 10 Ml Drpbtl) 3 drop EAR-RIGHT QID [facility] Last Admin: 02/25/22 09:18 Dose: Not Given Documented By: SWETHA Non-Admin Reason: Patient Refused Olanzapine (Olanzapine Odt 10 Mg Tab.Rapdis) 5 mg TRANSLINGU BID PRN PRN Reason: agitation, psychosis Last Admin: 02/09/22 14:45 Dose: 5 mg Documented By: CIRO Omeprazole (Omeprazole 20 Mg [place].) 20 mg PO DAILY@0630 [facility] Last Admin: 02/25/22 05:55 Dose: Not Given Documented By: SAVAGE Non-Admin Reason: Patient Refused Senna (Sennosides 8.6 Mg Tablet) 17.2 mg PO BEDTIME PRN PRN Reason: Constipation Sildenafil Citrate (Sildenafil Citrate 20 Mg Tablet) 20 mg PO TID [facility] Last Admin: 02/25/22 09:19 Dose: Not Given Documented By: SWETHA Non-Admin Reason: Patient Refused Sitagliptin Phosphate (Sitagliptin Phosphate 100 Mg Tablet) 100 mg PO DAILY [facility] Last Admin: 02/25/22 09:19 Dose: Not Given Documented By: SWETHA Non-Admin Reason: Patient Refused Sodium Chloride (0.9 % Sodium Chloride Flush 3 Ml Syringe) 3 ml IVFLUSH QSHIFT [facility] Last Admin: 02/25/22 08:54 Dose: Not Given Documented By: SWETHA Non-Admin Reason: No Access Labs CBC & Chem 7: 01/16/22 05:35 02/20/22 09:20 Labs: Laboratory Results - last 24 hr 02/24/22 02/24/22 02/25/22 16:34 20:13 07:23 POC Glucose 116 H 177 H 149 H Assessment and Plan (1) Schizo affective schizophrenia: Status: Acute (2) Otitis externa: Status: Acute Plan hospital d#47 61 yo M from [facility] with schizophrenia, DM2, possible COPD/asthma [not formally diagnosed] p/w hypoxia + dyspnea found to have severe pulmonary HTN/R-sided HF essentially no change in care today, still awaiting placement #pulmonary HTN # R-sided HF - continue sildenafil as ordered by Pulmonology -?continue PO furosemide - outpt f/u with Pulm with consideration of R-sided cath #COPD/asthma, provisional diagnosis - outpt PFTs - continue nebs - completed a course of steroids - completed a course of doxy -wears O2 off and on, but is always above 90 #DM2 - basal/bolus insulin - sitagliptin, metformin # schizoaffective disorder - no behavioral issues at this time? - continue VPA, haloperidol - seen by psych, added prn meds? # HLD - continue statin? # GERD - continue PPI # VTE ppx: LMWH # dispo: cannot go back to [facility], plan to dc to LTC, HCP invoked, awaiting bed ? Need for inpatient stay: pending safe dispo to LTC when bed available; despite his insistence, [facility] Has Med treatment plan NOT Garcia order - could give IM Haldol if refuses PO Quality Stroke Does the patient have a stroke diagnosis?: No VTE Prior VTE?: No VTE Risk Level:: Medical - moderate - high VTE Device Contraindication: Treatment Not Indicated VTE Drug Contraindication: N/A - Med Ordered
--- NOTE | 2022-02-25 14:31 | PC.NURSE ---
pt refused morning and afternoon medications. provider made aware.
[2022-02-25 15:50] VITALS: BP 93/66; PULSE 69; RESP 18; TEMP 36.3; O2SAT 97
[2022-02-25 16:51] LABS: Glucose, Whole Blood 160 mg/dL (60-115)
[2022-02-25 17:07] LABS: Creatinine Clr Calc Pharmacy 85.9; Estimated Glomerular Filt Rate > 60
[2022-02-25] MEDS: metFORMIN HCl 500 MG TABLET PO (17:20)
[2022-02-25 20:07] LABS: Glucose, Whole Blood 185 mg/dL (60-115)
[2022-02-25] MEDS: Insulin Lispro 100 UNIT/ML 3 ML VIAL SUBCUT (20:10)
[2022-02-25] MEDS: Insulin Glargine,Hum.rec.anlog 100 UNIT/ML 10 ML VIAL 10 UNIT SUBCUT (20:10)
[2022-02-25] MEDS: HaloperidoL 5 MG TABLET 10 MG PO (20:10)
[2022-02-26 07:37] VITALS: BP 96/69; PULSE 60; RESP 17; TEMP 36.3; O2SAT 95
[2022-02-26 07:42] LABS: Glucose, Whole Blood 158 mg/dL (60-115)
[2022-02-26] MEDS: metFORMIN HCl 500 MG TABLET PO ×2 (08:16→17:23)
--- NOTE | 2022-02-26 09:54 | P.PNIM_ITS ---
Subjective Subjective Date of Service: 02/26/22 Interval History: no complaints Cardiovascular Cardiovascular: Reports no additional cardiovascular complaints Respiratory Respiratory: Reports no additional respiratory complaints Physical Exam Vital Signs: Vital Signs: Last Vital Signs Temp 97.4 F 02/26/22 07:37 Pulse 60 02/26/22 07:37 Resp 17 02/26/22 07:37 BP 96/69 02/26/22 07:37 Pulse Ox 95 02/26/22 07:37 O2 Del Method 02/26/22 07:37 O2 Flow Rate 2 02/16/22 07:18 FiO2 94 02/13/22 15:38 BMI result Body Mass Index 21.8 Gen: in no acute distress HEENT: sclera anicteric, moist mucus membranes Neck: supple Lungs: clear to auscultation bilaterally Heart: regular rate and rhythm, no murmurs Abd: soft, non-tender, non-distended Ext: no edema Skin: warm/well-perfused Neuro: alert, disoriented Psych: impaired insight ? Objective Data Active Medications Acetaminophen (Acetaminophen 325 Mg Tablet) 650 mg PO Q6H PRN PRN Reason: Pain, Mild (Pain Scale 1-3) Atorvastatin Calcium (Atorvastatin Calcium 40 Mg Tablet) 40 mg PO DAILY [facility] Last Admin: 02/26/22 08:18 Dose: Not Given Documented By: ATIF Non-Admin Reason: Patient Refused Dextrose (Dextrose 50 % 25 Gm/50 Ml Syringe) 25 gm IVPUSH Q15M PRN; Protocol PRN Reason: per Hypoglycemia Standing Ord. Divalproex Sodium (Divalproex Sodium Er 250 Mg Tab.Er.24h) 250 mg PO DAILY@1700 [facility] Last Admin: 02/25/22 16:59 Dose: Not Given Documented By: SWETHA Non-Admin Reason: Patient Refused Divalproex Sodium (Divalproex Sodium Er 500 Mg Tab.Er.24h) 500 mg PO DAILY [facility] Last Admin: 02/26/22 08:18 Dose: Not Given Documented By: ATIF Non-Admin Reason: Patient Refused Enoxaparin Sodium (Enoxaparin Sodium 40 Mg/0.4 Ml Syringe) 40 mg SUBCUT Q24H [facility] Last Admin: 02/25/22 20:17 Dose: Not Given Documented By: BLADIMIR Non-Admin Reason: Patient Refused Ferrous Sulfate (Ferrous Sulfate 324 Mg Tablet.) 324 mg PO BID [facility] Last Admin: 02/26/22 08:18 Dose: Not Given Documented By: ATIF Non-Admin Reason: Patient Refused Fluticasone Propionate (Fluticasone Propionate Nasal 16 Gm [place]) 1 spray NOSTRIL-B BID [facility] Last Admin: 02/26/22 08:18 Dose: Not Given Documented By: ATIF Non-Admin Reason: Patient Refused Furosemide (Furosemide 40 Mg Tablet) 40 mg PO BID@0900,1800 [facility]; Protocol Last Admin: 02/26/22 08:18 Dose: Not Given Documented By: ATIF Non-Admin Reason: Patient Refused Glucose (Glucose Gel 15 Gm Gel..Gram.) 15 gm PO Q15M PRN; Protocol PRN Reason: per Hypoglycemia Standing Ord. Haloperidol (Haloperidol 5 Mg Tablet) 10 mg PO BID [facility] Last Admin: 02/25/22 20:10 Dose: 10 mg Documented By: BLADIMIR Insulin Glargine (Insulin Glargine,Hum.Rec.Anlog 100 Unit/Ml 10 Ml Vial) 10 unit SUBCUT BEDTIME [facility] Last Admin: 02/25/22 20:10 Dose: 10 unit Documented By: BLADIMIR Insulin Human Lispro (Insulin Lispro 100 Unit/Ml 3 Ml Vial) 0 unit SUBCUT QIDACHS [facility]; Protocol Last Admin: 02/26/22 08:17 Dose: Not Given Documented By: ATIF Non-Admin Reason: Patient Refused Melatonin (Melatonin 3 Mg Tablet) 6 mg PO BEDTIME PRN PRN Reason: Insomnia Last Admin: 02/19/22 20:18 Dose: 6 mg Documented By: EMELINA Metformin HCl (Metformin Hcl 500 Mg Tablet) 500 mg PO BIDWM [facility] Last Admin: 02/26/22 08:16 Dose: 500 mg Documented By: ATIF Neomycin/Polymyxin/Hydrocortisone (Neomycin/Polymyxin/Hc Otic Melanie 10 Ml Drpbtl) 3 drop EAR-RIGHT QID [facility] Last Admin: 02/26/22 08:19 Dose: Not Given Documented By: ATIF Non-Admin Reason: Patient Refused Olanzapine (Olanzapine Odt 10 Mg Tab.Rapdis) 5 mg TRANSLINGU BID PRN PRN Reason: agitation, psychosis Last Admin: 02/09/22 14:45 Dose: 5 mg Documented By: CIRO Omeprazole (Omeprazole 20 Mg [place].) 20 mg PO DAILY@0630 [facility] Last Admin: 02/26/22 05:34 Dose: Not Given Documented By: BLADIMIR Non-Admin Reason: Patient Refused Senna (Sennosides 8.6 Mg Tablet) 17.2 mg PO BEDTIME PRN PRN Reason: Constipation Sildenafil Citrate (Sildenafil Citrate 20 Mg Tablet) 20 mg PO TID [facility] Last Admin: 02/26/22 08:19 Dose: Not Given Documented By: ATIF Non-Admin Reason: Patient Refused Sitagliptin Phosphate (Sitagliptin Phosphate 100 Mg Tablet) 100 mg PO DAILY [facility] Last Admin: 02/26/22 08:19 Dose: Not Given Documented By: ATIF Non-Admin Reason: Patient Refused Sodium Chloride (0.9 % Sodium Chloride Flush 3 Ml Syringe) 3 ml IVFLUSH QSHIFT [facility] Last Admin: 02/26/22 08:17 Dose: Not Given Documented By: ATIF Non-Yasmani Reason: No Access Labs CBC & Chem 7: 01/16/22 05:35 02/25/22 16:27 Labs: Laboratory Results - last 24 hr 02/25/22 02/25/22 02/25/22 15:55 16:27 20:01 Estim Creat Clear Calc 85.9 Estimated GFR > 60 POC Glucose 160 H 185 H 02/26/22 07:37 Estim Creat Clear Calc Estimated GFR POC Glucose 158 H Assessment and Plan (1) Schizo affective schizophrenia: Status: Acute (2) Otitis externa: Status: Acute Plan hospital d#48 61 yo M from [facility] with [facility], DM2, possible COPD/asthma [not formally diagnosed] p/w hypoxia + dyspnea found to have severe pulmonary HTN/R-sided HF essentially no change in care today, still awaiting placement #pulmonary HTN # R-sided HF - continue sildenafil as ordered by Pulmonology -?continue PO furosemide - outpt f/u with Pulm with consideration of R-sided cath #COPD/asthma, provisional diagnosis - outpt PFTs - continue nebs - completed a course of steroids - completed a course of doxy -wears O2 off and on, but is always above 90 #DM2 - basal/bolus insulin - sitagliptin, metformin # schizoaffective disorder - no behavioral issues at this time? - continue VPA, haloperidol - seen by psych, added prn meds? # HLD - continue statin? # GERD - continue PPI # VTE ppx: LMWH # dispo: cannot go back to [facility], plan to dc to LTC, HCP invoked, awaiting bed ? Need for inpatient stay: pending safe dispo to LTC when bed available; despite his insistence, [facility] Has Med treatment plan NOT Garcia order - could give IM Haldol if refuses PO Quality Stroke Does the patient have a stroke diagnosis?: No VTE Prior VTE?: No VTE Risk Level:: Medical - moderate - high VTE Device Contraindication: Treatment Not Indicated VTE Drug Contraindication: N/A - Med Ordered
[2022-02-26 15:40] VITALS: BP 95/65; PULSE 63; RESP 18; TEMP 36.4; O2SAT 97
--- NOTE | 2022-02-26 15:43 | MHC.CM.PN ---
PT REPORTS HE WOULD LIKE TO DC TO [facility] HE REPORTS HE HAS STAYED THERE 5-6 TIMES BUT NOT FOR A FEW YEARS. CM CALLED PTS GUARDIAN ANDREW [phone] WHO REPORTS AT THIS TIME THERE IS A TEMP GUARDIANSHIP SHE REPORTS SHE DOES NOT FEEL THE PT IS SAFE IN THE COMMUNITY BECAUSE HE WILL USE DRUGS AGAIN SHE ALSO REPORTS WHEN HE WAS IN THE COMMUNITY, HE HAD TO BE GIVEN A NO [place] ORDER BY JUAN Cerda BECAUSE HE WAS BOTHERING CUSTOMERS. SHE REPORTS THE PT NEEDS A LOCKED UNIT SHE REPORTS A COPY OF THE NEW TEMP ORDER SHOULD BE ON FILE AND THERE WILL BE ANOTHER COURT DATE HOWEVER SHE REPORTS THE PT IS NOT REQUIRED TO ATTEND.
[2022-02-26 16:13] LABS: Glucose, Whole Blood 157 mg/dL (60-115)
[2022-02-26] MEDS: Furosemide 40 MG TABLET PO (17:23)
[2022-02-26] MEDS: Divalproex Sodium ER 250 MG TAB.ER.24H PO (17:23)
[2022-02-26 20:05] LABS: Glucose, Whole Blood 174 mg/dL (60-115)
[2022-02-26] MEDS: HaloperidoL 5 MG TABLET 10 MG PO (20:14)
[2022-02-26] MEDS: Insulin Glargine,Hum.rec.anlog 100 UNIT/ML 10 ML VIAL 10 UNIT SUBCUT (20:14)
[2022-02-26 23:47] VITALS: BP 101/61; PULSE 66; RESP 16; TEMP 36; O2SAT 93
[2022-02-27 07:15] VITALS: BP 86/50; PULSE 56; RESP 16; TEMP 36.3; O2SAT 96
[2022-02-27 07:43] LABS: Glucose, Whole Blood 128 mg/dL (60-115)
--- NOTE | 2022-02-27 09:02 | P.PNIM_ITS ---
Subjective Subjective Date of Service: 02/27/22 Interval History: no complaints Cardiovascular Cardiovascular: Reports no additional cardiovascular complaints Respiratory Respiratory: Reports no additional respiratory complaints Physical Exam Vital Signs: Vital Signs: Last Vital Signs Temp 97.3 F 02/27/22 07:15 Pulse 56 02/27/22 07:15 Resp 16 02/27/22 07:15 BP 86/50 L 02/27/22 07:15 Pulse Ox 96 02/27/22 07:15 O2 Del Method 02/27/22 07:15 O2 Flow Rate 2 02/16/22 07:18 FiO2 94 02/13/22 15:38 BMI result Body Mass Index 21.8 Gen: in no acute distress HEENT: sclera anicteric, moist mucus membranes Neck: supple Lungs: clear to auscultation bilaterally Heart: regular rate and rhythm, no murmurs Abd: soft, non-tender, non-distended Ext: no edema Skin: warm/well-perfused Neuro: alert, disoriented Psych: impaired insight ? Objective Data Active Medications Acetaminophen (Acetaminophen 325 Mg Tablet) 650 mg PO Q6H PRN PRN Reason: Pain, Mild (Pain Scale 1-3) Atorvastatin Calcium (Atorvastatin Calcium 40 Mg Tablet) 40 mg PO DAILY [facility] Last Admin: 02/26/22 08:18 Dose: Not Given Documented By: ATIF Non-Admin Reason: Patient Refused Dextrose (Dextrose 50 % 25 Gm/50 Ml Syringe) 25 gm IVPUSH Q15M PRN; Protocol PRN Reason: per Hypoglycemia Standing Ord. Divalproex Sodium (Divalproex Sodium Er 250 Mg Tab.Er.24h) 250 mg PO DAILY@1700 [facility] Last Admin: 02/26/22 17:23 Dose: 250 mg Documented By: ATIF Divalproex Sodium (Divalproex Sodium Er 500 Mg Tab.Er.24h) 500 mg PO DAILY [facility] Last Admin: 02/26/22 08:18 Dose: Not Given Documented By: ATIF Non-Admin Reason: Patient Refused Enoxaparin Sodium (Enoxaparin Sodium 40 Mg/0.4 Ml Syringe) 40 mg SUBCUT Q24H [facility] Last Admin: 02/26/22 20:22 Dose: Not Given Documented By: BLADIMIR Non-Admin Reason: Patient Refused Ferrous Sulfate (Ferrous Sulfate 324 Mg Tablet.) 324 mg PO BID [facility] Last Admin: 02/26/22 20:22 Dose: Not Given Documented By: BLADIMIR Non-Admin Reason: Patient Refused Fluticasone Propionate (Fluticasone Propionate Nasal 16 Gm [place]) 1 spray NOSTRIL-B BID [facility] Last Admin: 02/26/22 20:22 Dose: Not Given Documented By: BLADIMIR Non-Admin Reason: Patient Refused Furosemide (Furosemide 40 Mg Tablet) 40 mg PO BID@0900,1800 [facility]; Protocol Last Admin: 02/26/22 17:23 Dose: 40 mg Documented By: ATIF Glucose (Glucose Gel 15 Gm Gel..Gram.) 15 gm PO Q15M PRN; Protocol PRN Reason: per Hypoglycemia Standing Ord. Haloperidol (Haloperidol 5 Mg Tablet) 10 mg PO BID [facility] Last Admin: 02/26/22 20:14 Dose: 10 mg Documented By: BLADIMIR Insulin Glargine (Insulin Glargine,Hum.Rec.Anlog 100 Unit/Ml 10 Ml Vial) 10 unit SUBCUT BEDTIME [facility] Last Admin: 02/26/22 20:14 Dose: 10 unit Documented By: BLADIMIR Insulin Human Lispro (Insulin Lispro 100 Unit/Ml 3 Ml Vial) 0 unit SUBCUT QIDACHS [facility]; Protocol Last Admin: 02/26/22 20:22 Dose: Not Given Documented By: BLADIMIR Non-Admin Reason: Patient Refused Melatonin (Melatonin 3 Mg Tablet) 6 mg PO BEDTIME PRN PRN Reason: Insomnia Last Admin: 02/19/22 20:18 Dose: 6 mg Documented By: EMELINA Metformin HCl (Metformin Hcl 500 Mg Tablet) 500 mg PO BIDWM [facility] Last Admin: 02/26/22 17:23 Dose: 500 mg Documented By: ATIF Neomycin/Polymyxin/Hydrocortisone (Neomycin/Polymyxin/Hc Otic Melanie 10 Ml Drpbtl) 3 drop EAR-RIGHT QID [facility] Last Admin: 02/26/22 20:22 Dose: Not Given Documented By: BLADIMIR Non-Admin Reason: Patient Refused Olanzapine (Olanzapine Odt 10 Mg Tab.Rapdis) 5 mg TRANSLINGU BID PRN PRN Reason: agitation, psychosis Last Admin: 02/09/22 14:45 Dose: 5 mg Documented By: CIRO Omeprazole (Omeprazole 20 Mg Capsule.) 20 mg PO DAILY@0630 [facility] Last Admin: 02/27/22 06:24 Dose: Not Given Documented By: BLADIMIR Non-Admin Reason: Patient Refused Senna (Sennosides 8.6 Mg Tablet) 17.2 mg PO BEDTIME PRN PRN Reason: Constipation Sildenafil Citrate (Sildenafil Citrate 20 Mg Tablet) 20 mg PO TID [facility] Last Admin: 02/26/22 20:22 Dose: Not Given Documented By: BLADIMIR Non-Admin Reason: Patient Refused Sitagliptin Phosphate (Sitagliptin Phosphate 100 Mg Tablet) 100 mg PO DAILY [facility] Last Admin: 02/26/22 08:19 Dose: Not Given Documented By: ATIF Non-Admin Reason: Patient Refused Sodium Chloride (0.9 % Sodium Chloride Flush 3 Ml Syringe) 3 ml IVFLUSH QSHIFT [facility] Last Admin: 02/26/22 21:17 Dose: Not Given Documented By: BLADIMIR Non-Admin Reason: No Access Labs CBC & Chem 7: 01/16/22 05:35 02/25/22 16:27 Labs: Laboratory Results - last 24 hr 02/26/22 02/26/22 02/27/22 15:45 20:00 07:18 POC Glucose 157 H 174 H 128 H Assessment and Plan (1) Schizo affective schizophrenia: Status: Acute (2) Otitis externa: Status: Acute Plan hospital d#49 61 yo M from [facility] with schizophrenia, DM2, possible COPD/asthma [not formally diagnosed] p/w hypoxia + dyspnea found to have severe pulmonary HTN/R-sided HF essentially no change in care today, still awaiting placement #pulmonary HTN # R-sided HF - continue sildenafil as ordered by Pulmonology -?continue PO furosemide - outpt f/u with Pulm with consideration of R-sided cath #COPD/asthma, provisional diagnosis - outpt PFTs - continue nebs - completed a course of steroids - completed a course of doxy -wears O2 off and on, but is always above 90 #DM2 - basal/bolus insulin - sitagliptin, metformin # schizoaffective disorder - no behavioral issues at this time? - continue VPA, haloperidol - seen by psych, added prn meds? # HLD - continue statin? # GERD - continue PPI # VTE ppx: LMWH # dispo: cannot go back to [facility], plan to dc to LTC, HCP invoked, awaiting bed ? Need for inpatient stay: pending safe dispo to LTC when bed available; despite his insistence, he cannot go back to the [facility] Has Med treatment plan NOT Garcia order - could give IM Haldol if refuses PO Quality Stroke Does the patient have a stroke diagnosis?: No VTE Prior VTE?: No VTE Risk Level:: Medical - moderate - high VTE Device Contraindication: Treatment Not Indicated VTE Drug Contraindication: N/A - Med Ordered
[2022-02-27 10:35] LABS: Creatinine Clr Calc Pharmacy 98.9; Estimated Glomerular Filt Rate > 60
[2022-02-27 11:32] LABS: Glucose, Whole Blood 176 mg/dL (60-115)
--- NOTE | 2022-02-27 14:35 | MHC.CM.PN ---
This production underwriter called [place] Andrew Buchanan to discuss guardianship status. Patient currently has temp guardian (Shania), the guardianship is going to pre-trial due to the patient's wish to contest the guardianship. If the patient is discharged to the community in a un-secured setting the trial will be dropped and guardian will no longer serve in the role. The patient is able to participate in his trial. The [facility] team will ensure he has access and ability to do so.
[2022-02-27 15:54] VITALS: BP 112/78; PULSE 77; RESP 18; TEMP 36.2; O2SAT 95
[2022-02-27 16:16] LABS: Glucose, Whole Blood 215 mg/dL (60-115)
[2022-02-27] MEDS: Divalproex Sodium ER 250 MG TAB.ER.24H PO (17:43)
[2022-02-27] MEDS: metFORMIN HCl 500 MG TABLET PO (17:43)
[2022-02-27] MEDS: HaloperidoL 5 MG TABLET 10 MG PO (20:37)
[2022-02-27] MEDS: Enoxaparin Sodium 40 MG/0.4 ML SYRINGE SUBCUT (20:37)
[2022-02-27] MEDS: Sildenafil Citrate 20 MG TABLET PO (20:37)
[2022-02-27] MEDS: Ferrous Sulfate 324 MG TABLET.DR PO (20:37)
[2022-02-27 20:45] LABS: Glucose, Whole Blood 144 mg/dL (60-115)
[2022-02-27 23:49] VITALS: RESP 16
[2022-02-28 07:19] LABS: Glucose, Whole Blood 132 mg/dL (60-115)
--- NOTE | 2022-02-28 07:21 | MHC.CM.PN ---
Addendum entered by Rima Leon RN 02/28/22 08:06: FAX CONFIRMATIONS RECEIVED FOR INITIAL REFERRAL 02/27 AND PSYCH CONSULT 02/28. Original Note: EMR REVIEWED, PT REMAINS MEDICALLY CLEARED FOR D/C, CM SPOKE W/[facility] DON LUCA WHO REPORTED ENTIRE BUILDING IS SECURE AND PROVIDES CARE FOR PSYCHIATRIC PT'S, LUCA REPORTED THEY NO LONGER HAVE ACCESS TO [employer] AND REQUESTED CM PAPER FAX TO [phone], REFERRAL SENT 02/27/22, CM WILL ADD PSYCHIATRIC NOTES THIS MORNING AND FOLLOW-UP W/LUCA TO VERIFY SHE RECEIVED ADDITIONAL DOCUMENTS.
[2022-02-28 11:24] LABS: Glucose, Whole Blood 162 mg/dL (60-115)
[2022-02-28] MEDS: Furosemide 40 MG TABLET PO (11:25)
[2022-02-28] MEDS: HaloperidoL 5 MG TABLET 10 MG PO ×2 (11:25→20:01)
[2022-02-28] MEDS: Sildenafil Citrate 20 MG TABLET PO (11:25)
[2022-02-28] MEDS: metFORMIN HCl 500 MG TABLET PO (11:25)
[2022-02-28] MEDS: Ferrous Sulfate 324 MG TABLET.DR PO ×2 (11:25→20:01)
[2022-02-28] MEDS: Atorvastatin Calcium 40 MG TABLET PO (11:25)
[2022-02-28] MEDS: SITagliptin Phosphate 100 MG TABLET PO (11:25)
[2022-02-28] MEDS: Divalproex Sodium ER 500 MG TAB.ER.24H PO (11:25)
--- NOTE | 2022-02-28 12:01 | HO.PM.IMPN ---
Subjective Subjective Date of Service: 02/28/22 Interval History: Seems comfortable denies any complaints overnight Review of Systems Review of Systems: Yes all other systems are reviewed and are negative Physical Exam Vital Signs: Vital Signs: Last Vital Signs Temp 97.1 F 02/27/22 15:54 Pulse 77 02/27/22 15:54 Resp 16 02/27/22 23:49 BP 112/78 02/27/22 15:54 Pulse Ox 95 02/27/22 15:54 O2 Del Method 02/27/22 15:54 O2 Flow Rate 2 02/16/22 07:18 FiO2 94 02/13/22 15:38 BMI result Body Mass Index 21.8 Const: Other: Constitutional : Alert, not in distress Neck : Normal inspection, Supple Cardiovascular : no JVP, no lower extremity edema Respiratory : Chest wall moving bilaterally, not in distress Skin : Warm, Dry Neurological : Alert & interactive, No focal deficit Objective Data Active Medications Acetaminophen (Acetaminophen 325 Mg Tablet) 650 mg PO Q6H PRN PRN Reason: Pain, Mild (Pain Scale 1-3) Atorvastatin Calcium (Atorvastatin Calcium 40 Mg Tablet) 40 mg PO DAILY [facility] Last Admin: 02/28/22 11:25 Dose: 40 mg Documented By: LUCILA Dextrose (Dextrose 50 % 25 Gm/50 Ml Syringe) 25 gm IVPUSH Q15M PRN; Protocol PRN Reason: per Hypoglycemia Standing Ord. Divalproex Sodium (Divalproex Sodium Er 250 Mg Tab.Er.24h) 250 mg PO DAILY@1700 [facility] Last Admin: 02/27/22 17:43 Dose: 250 mg Documented By: ATIF Divalproex Sodium (Divalproex Sodium Er 500 Mg Tab.Er.24h) 500 mg PO DAILY [facility] Last Admin: 02/28/22 11:25 Dose: 500 mg Documented By: LUCILA Enoxaparin Sodium (Enoxaparin Sodium 40 Mg/0.4 Ml Syringe) 40 mg SUBCUT Q24H [facility] Last Admin: 02/27/22 20:37 Dose: 40 mg Documented By: NELSY Ferrous Sulfate (Ferrous Sulfate 324 Mg Tablet.) 324 mg PO BID [facility] Last Admin: 02/28/22 11:25 Dose: 324 mg Documented By: LUCILA Fluticasone Propionate (Fluticasone Propionate Nasal 16 Gm [place]) 1 spray NOSTRIL-B BID [facility] Last Admin: 02/28/22 11:11 Dose: Not Given Documented By: LUCILA Non-Admin Reason: Patient Refused Furosemide (Furosemide 40 Mg Tablet) 40 mg PO BID@0900,1800 [facility]; Protocol Last Admin: 02/28/22 11:25 Dose: 40 mg Documented By: LUCILA Glucose (Glucose Gel 15 Gm Gel..Gram.) 15 gm PO Q15M PRN; Protocol PRN Reason: per Hypoglycemia Standing Ord. Haloperidol (Haloperidol 5 Mg Tablet) 10 mg PO BID [facility] Last Admin: 02/28/22 11:25 Dose: 10 mg Documented By: LUCILA Insulin Glargine (Insulin Glargine,Hum.Rec.Anlog 100 Unit/Ml 10 Ml Vial) 10 unit SUBCUT BEDTIME [facility] Last Admin: 02/27/22 20:43 Dose: Not Given Documented By: NELSY Non-Admin Reason: Patient Refused Insulin Human Lispro (Insulin Lispro 100 Unit/Ml 3 Ml Vial) 0 unit SUBCUT QIDACHS [facility]; Protocol Last Admin: 02/28/22 11:30 Dose: Not Given Documented By: LUCILA Non-Admin Reason: Patient Refused Melatonin (Melatonin 3 Mg Tablet) 6 mg PO BEDTIME PRN PRN Reason: Insomnia Last Admin: 02/19/22 20:18 Dose: 6 mg Documented By: EMELINA Metformin HCl (Metformin Hcl 500 Mg Tablet) 500 mg PO BIDWM [facility] Last Admin: 02/28/22 11:25 Dose: 500 mg Documented By: LUCILA Neomycin/Polymyxin/Hydrocortisone (Neomycin/Polymyxin/Hc Otic Melanie 10 Ml Drpbtl) 3 drop EAR-RIGHT QID [facility] Last Admin: 02/28/22 11:11 Dose: Not Given Documented By: LUCILA Non-Admin Reason: Patient Refused Olanzapine (Olanzapine Odt 10 Mg Tab.Rapdis) 5 mg TRANSLINGU BID PRN PRN Reason: agitation, psychosis Last Admin: 02/09/22 14:45 Dose: 5 mg Documented By: CIRO Omeprazole (Omeprazole 20 Mg Capsule.Dr) 20 mg PO DAILY@0630 [facility] Last Admin: 02/28/22 06:47 Dose: Not Given Documented By: NELSY Non-Admin Reason: Patient Refused Senna (Sennosides 8.6 Mg Tablet) 17.2 mg PO BEDTIME PRN PRN Reason: Constipation Sildenafil Citrate (Sildenafil Citrate 20 Mg Tablet) 20 mg PO TID [facility] Last Admin: 02/28/22 11:25 Dose: 20 mg Documented By: LUCILA Sitagliptin Phosphate (Sitagliptin Phosphate 100 Mg Tablet) 100 mg PO DAILY [facility] Last Admin: 02/28/22 11:25 Dose: 100 mg Documented By: LUCILA Sodium Chloride (0.9 % Sodium Chloride Flush 3 Ml Syringe) 3 ml IVFLUSH QSHIFT [facility] Last Admin: 02/28/22 11:03 Dose: Not Given Documented By: LUCILA Non-Admin Reason: No Access Labs CBC & Chem 7: 01/16/22 05:35 02/27/22 09:57 Labs: Laboratory Results - last 24 hr 02/27/22 02/27/22 02/28/22 16:08 20:30 07:13 POC Glucose 215 H 144 H 132 H 02/28/22 11:20 POC Glucose 162 H Assessment and Plan (1) Schizo affective schizophrenia: Status: Acute (2) Acute CHF: Status: Acute Plan hospital d#50 61 yo M from intermediate resident with schizophrenia, DM2, possible COPD/asthma [not formally diagnosed] p/w hypoxia + dyspnea found to have severe pulmonary HTN/R-sided HF essentially no change in care today, still awaiting placement #pulmonary HTN # R-sided HF continue sildenafil as ordered by Pulmonology continue PO furosemide outpt f/u with Pulm with consideration of R-sided cath #COPD/asthma, provisional diagnosis outpt PFTs continue nebs completed a course of steroids completed a course of doxy wears O2 off and on, but is always above 90 #DM2 basal/bolus insulin sitagliptin, metformin # schizoaffective disorder no behavioral issues at this time? continue VPA, haloperidol seen by psych, added prn meds? # HLD continue statin? # GERD continue PPI # VTE ppx LMWH # dispo: cannot go back to [facility], plan to dc to LTC, HCP invoked, awaiting bed ? Need for inpatient stay: pending safe dispo to LTC when bed available; despite his insistence, he cannot go back to the intermediate Has Med treatment plan NOT Jose order - could give IM Haldol if refuses PO Quality Stroke Does the patient have a stroke diagnosis?: No VTE Prior VTE?: No VTE Risk Level:: Medical - moderate - high VTE Device Contraindication: Treatment Not Indicated VTE Drug Contraindication: N/A - Med Ordered
[2022-02-28 15:48] VITALS: BP 93/54; PULSE 79; RESP 18; TEMP 36.8; O2SAT 94
[2022-02-28 16:21] LABS: Glucose, Whole Blood 133 mg/dL (60-115)
[2022-03-01] MEDS: Omeprazole 20 MG CAPSULE.DR PO (06:15)
[2022-03-01 07:27] VITALS: BP 94/63; PULSE 66; RESP 17; TEMP 36.3; O2SAT 94
[2022-03-01 07:32] LABS: Glucose, Whole Blood 125 mg/dL (60-115)
[2022-03-01] MEDS: HaloperidoL 5 MG TABLET 10 MG PO ×2 (09:59→21:40)
--- NOTE | 2022-03-01 10:10 | HO.PM.IMPN ---
Subjective Subjective Date of Service: 03/01/22 Interval History: Seems comfortable denies any complaints overnight Physical Exam Vital Signs: Vital Signs: Last Vital Signs Temp 97.4 F 03/01/22 07:27 Pulse 66 03/01/22 07:27 Resp 17 03/01/22 07:27 BP 94/63 03/01/22 07:27 Pulse Ox 94 03/01/22 07:27 O2 Del Method 03/01/22 07:27 O2 Flow Rate 2 02/16/22 07:18 FiO2 94 02/13/22 15:38 BMI result Body Mass Index 21.8 Const: Other: Constitutional : Alert, not in distress Neck : Normal inspection, Supple Cardiovascular : no JVP, no lower extremity edema Respiratory : Chest wall moving bilaterally, not in distress Skin : Warm, Dry Neurological : Alert & interactive, No focal deficit Objective Data Active Medications Acetaminophen (Acetaminophen 325 Mg Tablet) 650 mg PO Q6H PRN PRN Reason: Pain, Mild (Pain Scale 1-3) Atorvastatin Calcium (Atorvastatin Calcium 40 Mg Tablet) 40 mg PO DAILY [facility] Last Admin: 03/01/22 10:00 Dose: Not Given Documented By: LUCILA Non-Admin Reason: Patient Refused Dextrose (Dextrose 50 % 25 Gm/50 Ml Syringe) 25 gm IVPUSH Q15M PRN; Protocol PRN Reason: per Hypoglycemia Standing Ord. Divalproex Sodium (Divalproex Sodium Er 250 Mg Tab.Er.24h) 250 mg PO DAILY@1700 [facility] Last Admin: 02/28/22 17:20 Dose: Not Given Documented By: LUCILA Non-Admin Reason: Patient Refused Divalproex Sodium (Divalproex Sodium Er 500 Mg Tab.Er.24h) 500 mg PO DAILY [facility] Last Admin: 03/01/22 10:00 Dose: Not Given Documented By: LUCILA Non-Admin Reason: Patient Refused Enoxaparin Sodium (Enoxaparin Sodium 40 Mg/0.4 Ml Syringe) 40 mg SUBCUT Q24H [facility] Last Admin: 02/28/22 20:04 Dose: Not Given Documented By: NELSY Non-Admin Reason: Patient Refused Ferrous Sulfate (Ferrous Sulfate 324 Mg Tablet.) 324 mg PO BID [facility] Last Admin: 03/01/22 10:00 Dose: Not Given Documented By: LUCILA Non-Admin Reason: Patient Refused Fluticasone Propionate (Fluticasone Propionate Nasal 16 Gm [place]) 1 spray NOSTRIL-B BID [facility] Last Admin: 03/01/22 10:00 Dose: Not Given Documented By: LUCILA Non-Admin Reason: Patient Refused Furosemide (Furosemide 40 Mg Tablet) 40 mg PO BID@0900,1800 [facility]; Protocol Last Admin: 03/01/22 10:01 Dose: Not Given Documented By: LUCILA Non-Admin Reason: Patient Refused Glucose (Glucose Gel 15 Gm Gel..Gram.) 15 gm PO Q15M PRN; Protocol PRN Reason: per Hypoglycemia Standing Ord. Haloperidol (Haloperidol 5 Mg Tablet) 10 mg PO BID [facility] Last Admin: 03/01/22 09:59 Dose: 10 mg Documented By: LUCILA Insulin Glargine (Insulin Glargine,Hum.Rec.Anlog 100 Unit/Ml 10 Ml Vial) 10 unit SUBCUT BEDTIME [facility] Last Admin: 02/28/22 21:13 Dose: Not Given Documented By: NELSY Non-Admin Reason: Patient Refused Insulin Human Lispro (Insulin Lispro 100 Unit/Ml 3 Ml Vial) 0 unit SUBCUT QIDACHS [facility]; Protocol Last Admin: 03/01/22 07:51 Dose: Not Given Documented By: LUCILA Non-Admin Reason: No Insulin Coverage Melatonin (Melatonin 3 Mg Tablet) 6 mg PO BEDTIME PRN PRN Reason: Insomnia Last Admin: 02/19/22 20:18 Dose: 6 mg Documented By: EMELINA Metformin HCl (Metformin Hcl 500 Mg Tablet) 500 mg PO BIDWM [facility] Last Admin: 03/01/22 10:00 Dose: Not Given Documented By: LUCILA Non-Admin Reason: Patient Refused Neomycin/Polymyxin/Hydrocortisone (Neomycin/Polymyxin/Hc Otic Melanie 10 Ml Drpbtl) 3 drop EAR-RIGHT QID [facility] Last Admin: 03/01/22 10:01 Dose: Not Given Documented By: LUCILA Non-Admin Reason: Patient Refused Olanzapine (Olanzapine Odt 10 Mg Tab.Rapdis) 5 mg TRANSLINGU BID PRN PRN Reason: agitation, psychosis Last Admin: 02/09/22 14:45 Dose: 5 mg Documented By: CIRO Omeprazole (Omeprazole 20 Mg Capsule.) 20 mg PO DAILY@0630 [facility] Last Admin: 03/01/22 06:15 Dose: 20 mg Documented By: NELSY Senna (Sennosides 8.6 Mg Tablet) 17.2 mg PO BEDTIME PRN PRN Reason: Constipation Sildenafil Citrate (Sildenafil Citrate 20 Mg Tablet) 20 mg PO TID [facility] Last Admin: 03/01/22 10:01 Dose: Not Given Documented By: LUCILA Non-Admin Reason: Patient Refused Sitagliptin Phosphate (Sitagliptin Phosphate 100 Mg Tablet) 100 mg PO DAILY [facility] Last Admin: 03/01/22 10:01 Dose: Not Given Documented By: LUCILA Non-Admin Reason: Patient Refused Sodium Chloride (0.9 % Sodium Chloride Flush 3 Ml Syringe) 3 ml IVFLUSH QSHIFT [facility] Last Admin: 03/01/22 07:04 Dose: Not Given Documented By: DALILA Non-Admin Reason: No Access Labs CBC & Chem 7: 01/16/22 05:35 02/27/22 09:57 Labs: Laboratory Results - last 24 hr 02/28/22 02/28/22 03/01/22 11:20 15:54 07:27 POC Glucose 162 H 133 H 125 H Assessment and Plan (1) Reactive airway disease with acute exacerbation: Status: Acute (2) Schizo affective schizophrenia: Status: Acute Plan hospital d#51 61 yo M from assisted resident with schizophrenia, DM2, possible COPD/asthma [not formally diagnosed], p/w hypoxia + dyspnea found to have severe pulmonary HTN/R-sided HF. no change in care today, still awaiting placement #pulmonary HTN # R-sided HF continue sildenafil as ordered by Pulmonology continue PO furosemide outpt f/u with Pulm with consideration of R-sided cath #COPD/asthma, provisional diagnosis outpt PFTs continue nebs completed a course of steroids completed a course of doxy wears O2 off and on, but is always above 90 #DM2 basal/bolus insulin sitagliptin, metformin # schizoaffective disorder no behavioral issues at this time? continue VPA, haloperidol seen by psych, added prn meds? # HLD continue statin? # GERD continue PPI # VTE ppx LMWH # dispo: [facility] back to [facility], plan to dc to LTC, HCP invoked, awaiting bed ? Need for inpatient stay: pending safe dispo to LTC when bed available; despite his insistence, he cannot go back to the assisted Has Med treatment plan NOT Jose order - could give IM Haldol if refuses PO Quality Stroke Does the patient have a stroke diagnosis?: No VTE Prior VTE?: No VTE Risk Level:: Medical - moderate - high VTE Device Contraindication: Treatment Not Indicated VTE Drug Contraindication: N/A - Med Ordered
[2022-03-01 11:43] LABS: Glucose, Whole Blood 135 mg/dL (60-115)
[2022-03-01 16:08] VITALS: BP 110/67; PULSE 74; RESP 18; TEMP 36.9; O2SAT 95
[2022-03-01 16:22] LABS: Glucose, Whole Blood 163 mg/dL (60-115)
[2022-03-01 16:48] LABS: Creatinine Clr Calc Pharmacy 67.9; Estimated Glomerular Filt Rate > 60
[2022-03-01 20:34] LABS: Glucose, Whole Blood 268 mg/dL (60-115)
[2022-03-01] MEDS: Insulin Lispro 100 UNIT/ML 3 ML VIAL SUBCUT (21:39)
[2022-03-01] MEDS: Insulin Glargine,Hum.rec.anlog 100 UNIT/ML 10 ML VIAL 10 UNIT SUBCUT (21:39)
[2022-03-01] MEDS: Ferrous Sulfate 324 MG TABLET.DR PO (21:40)
[2022-03-01] MEDS: Sildenafil Citrate 20 MG TABLET PO (21:40)
[2022-03-01] MEDS: Furosemide 40 MG TABLET PO (21:41)
[2022-03-02 07:41] LABS: Glucose, Whole Blood 145 mg/dL (60-115)
[2022-03-02 08:00] VITALS: BP 106/61; PULSE 67; RESP 17; TEMP 36.6; O2SAT 98
[2022-03-02] MEDS: Ferrous Sulfate 324 MG TABLET.DR PO (10:53)
[2022-03-02] MEDS: Sildenafil Citrate 20 MG TABLET PO (10:53)
[2022-03-02] MEDS: metFORMIN HCl 500 MG TABLET PO ×2 (10:53→20:53)
[2022-03-02] MEDS: Divalproex Sodium ER 500 MG TAB.ER.24H PO (10:53)
[2022-03-02] MEDS: SITagliptin Phosphate 100 MG TABLET PO (10:53)
[2022-03-02] MEDS: Furosemide 40 MG TABLET PO ×2 (10:53→20:53)
[2022-03-02] MEDS: Atorvastatin Calcium 40 MG TABLET PO (10:53)
[2022-03-02] MEDS: HaloperidoL 5 MG TABLET 10 MG PO ×2 (10:53→20:53)
[2022-03-02 11:46] LABS: Glucose, Whole Blood 221 mg/dL (60-115)
--- NOTE | 2022-03-02 12:03 | HO.PM.IMPN ---
Subjective Subjective Date of Service: 03/02/22 Interval History: Seems comfortable Restless about leaving the hospital denies any complaints overnight Review of Systems Review of Systems: Yes all other systems are reviewed and are negative Physical Exam Vital Signs: Vital Signs: Last Vital Signs Temp 98 F 03/02/22 08:00 Pulse 67 03/02/22 08:00 Resp 17 03/02/22 08:00 BP 106/61 03/02/22 08:00 Pulse Ox 98 03/02/22 08:00 O2 Del Method 03/02/22 08:00 O2 Flow Rate 2 02/16/22 07:18 FiO2 94 02/13/22 15:38 BMI result Body Mass Index 21.8 Const: Other: Constitutional : Alert, not in distress Neck : Normal inspection, Supple Cardiovascular : no JVP, no lower extremity edema Respiratory : Chest wall moving bilaterally, not in distress Skin : Warm, Dry Neurological : Alert & interactive, No focal deficit Objective Data Active Medications Acetaminophen (Acetaminophen 325 Mg Tablet) 650 mg PO Q6H PRN PRN Reason: Pain, Mild (Pain Scale 1-3) Atorvastatin Calcium (Atorvastatin Calcium 40 Mg Tablet) 40 mg PO DAILY [facility] Last Admin: 03/02/22 10:53 Dose: 40 mg Documented By: ANAT Dextrose (Dextrose 50 % 25 Gm/50 Ml Syringe) 25 gm IVPUSH Q15M PRN; Protocol PRN Reason: per Hypoglycemia Standing Ord. Divalproex Sodium (Divalproex Sodium Er 250 Mg Tab.Er.24h) 250 mg PO DAILY@1700 [facility] Last Admin: 03/01/22 16:36 Dose: Not Given Documented By: LUCILA Non-Admin Reason: Patient Refused Divalproex Sodium (Divalproex Sodium Er 500 Mg Tab.Er.24h) 500 mg PO DAILY [facility] Last Admin: 03/02/22 10:53 Dose: 500 mg Documented By: ANAT Enoxaparin Sodium (Enoxaparin Sodium 40 Mg/0.4 Ml Syringe) 40 mg SUBCUT Q24H [facility] Last Admin: 03/01/22 21:48 Dose: Not Given Documented By: JUAN Non-Admin Reason: Patient Refused Ferrous Sulfate (Ferrous Sulfate 324 Mg [place].) 324 mg PO BID [facility] Last Admin: 03/02/22 10:53 Dose: 324 mg Documented By: ANAT Fluticasone Propionate (Fluticasone Propionate Nasal 16 Gm [place]) 1 spray NOSTRIL-B BID [facility] Last Admin: 03/02/22 10:54 Dose: Not Given Documented By: ANAT Non-Admin Reason: Patient Refused Furosemide (Furosemide 40 Mg Tablet) 40 mg PO BID@0900,1800 [facility]; Protocol Last Admin: 03/02/22 10:53 Dose: 40 mg Documented By: ANAT Glucose (Glucose Gel 15 Gm Gel..Gram.) 15 gm PO Q15M PRN; Protocol PRN Reason: per Hypoglycemia Standing Ord. Haloperidol (Haloperidol 5 Mg Tablet) 10 mg PO BID [facility] Last Admin: 03/02/22 10:53 Dose: 10 mg Documented By: ANAT Insulin Glargine (Insulin Glargine,Hum.Rec.Anlog 100 Unit/Ml 10 Ml Vial) 10 unit SUBCUT BEDTIME [facility] Last Admin: 03/01/22 21:39 Dose: 10 unit Documented By: JUAN Insulin Human Lispro (Insulin Lispro 100 Unit/Ml 3 Ml Vial) 0 unit SUBCUT QIDACHS [facility]; Protocol Last Admin: 03/01/22 21:39 Dose: 6 unit Documented By: JUAN Melatonin (Melatonin 3 Mg Tablet) 6 mg PO BEDTIME PRN PRN Reason: Insomnia Last Admin: 02/19/22 20:18 Dose: 6 mg Documented By: EMELINA Metformin HCl (Metformin Hcl 500 Mg Tablet) 500 mg PO BIDWM [facility] Last Admin: 03/02/22 10:53 Dose: 500 mg Documented By: ANAT Neomycin/Polymyxin/Hydrocortisone (Neomycin/Polymyxin/Hc Otic Melanie 10 Ml Drpbtl) 3 drop EAR-RIGHT QID [facility] Last Admin: 03/02/22 10:54 Dose: Not Given Documented By: ANAT Non-Admin Reason: n/a Olanzapine (Olanzapine Odt 10 Mg Tab.Rapdis) 5 mg TRANSLINGU BID PRN PRN Reason: agitation, psychosis Last Admin: 02/09/22 14:45 Dose: 5 mg Documented By: CIRO Omeprazole (Omeprazole 20 Mg Capsule.Dr) 20 mg PO DAILY@0630 [facility] Last Admin: 03/02/22 06:00 Dose: Not Given Documented By: DAVE Non-Admin Reason: Patient Refused Senna (Sennosides 8.6 Mg Tablet) 17.2 mg PO BEDTIME PRN PRN Reason: Constipation Sildenafil Citrate (Sildenafil Citrate 20 Mg Tablet) 20 mg PO TID [facility] Last Admin: 03/02/22 10:53 Dose: 20 mg Documented By: ANAT Sitagliptin Phosphate (Sitagliptin Phosphate 100 Mg Tablet) 100 mg PO DAILY [facility] Last Admin: 03/02/22 10:53 Dose: 100 mg Documented By: ANAT Sodium Chloride (0.9 % Sodium Chloride Flush 3 Ml Syringe) 3 ml IVFLUSH QSHIFT [facility] Last Admin: 03/02/22 10:58 Dose: Not Given Documented By: ANAT Non-Admin Reason: No Access Labs CBC & Chem 7: 01/16/22 05:35 03/01/22 16:01 Labs: Laboratory Results - last 24 hr 03/01/22 03/01/22 03/01/22 16:01 16:11 20:23 Estim Creat Clear Calc 67.9 Estimated GFR > 60 POC Glucose 163 H 268 H 03/02/22 03/02/22 07:35 11:35 Estim Creat Clear Calc Estimated GFR POC Glucose 145 H 221 H Assessment and Plan (1) Schizo affective schizophrenia: Status: Acute Plan 61 yo M from [facility] resident with schizophrenia, DM2, possible COPD/asthma [not formally diagnosed], p/w hypoxia + dyspnea found to have severe pulmonary HTN/R-sided HF. no change in care today, still awaiting placement #pulmonary HTN # R-sided HF continue sildenafil as ordered by Pulmonology continue PO furosemide outpt f/u with Pulm with consideration of R-sided cath #COPD/asthma, provisional diagnosis outpt PFTs continue nebs completed a course of steroids completed a course of doxy wears O2 off and on, but is always above 90 #DM2 basal/bolus insulin sitagliptin, metformin # schizoaffective disorder no behavioral issues at this time? continue VPA, haloperidol seen by psych, added prn meds? # HLD continue statin? # GERD continue PPI # VTE ppx LMWH # dispo: [facility], plan to dc to LTC, HCP invoked, awaiting bed ? Need for inpatient stay: pending safe dispo to LTC when bed available; despite his insistence, he cannot go back to the [facility] Has Med treatment plan NOT Jose order - could give IM Haldol if refuses PO Quality Stroke Does the patient have a stroke diagnosis?: No VTE Prior VTE?: No VTE Risk Level:: Medical - moderate - high VTE Device Contraindication: Treatment Not Indicated VTE Drug Contraindication: N/A - Med Ordered
[2022-03-02 15:27] VITALS: BP 120/86; PULSE 85; RESP 18; TEMP 37.2; O2SAT 92
[2022-03-02 17:10] LABS: Glucose, Whole Blood 172 mg/dL (60-115)
[2022-03-02 19:42] LABS: Glucose, Whole Blood 166 mg/dL (60-115)
[2022-03-02] MEDS: Insulin Glargine,Hum.rec.anlog 100 UNIT/ML 10 ML VIAL 10 UNIT SUBCUT (20:52)
[2022-03-02] MEDS: Divalproex Sodium ER 250 MG TAB.ER.24H PO (20:53)
[2022-03-03 07:23] LABS: Glucose, Whole Blood 135 mg/dL (60-115)
[2022-03-03 08:00] VITALS: BP 111/71; PULSE 65; RESP 16; TEMP 36.3; O2SAT 98
[2022-03-03] MEDS: HaloperidoL 5 MG TABLET 10 MG PO ×2 (10:46→20:33)
[2022-03-03] MEDS: Divalproex Sodium ER 500 MG TAB.ER.24H PO (10:46)
[2022-03-03] MEDS: Atorvastatin Calcium 40 MG TABLET PO (10:46)
[2022-03-03] MEDS: metFORMIN HCl 500 MG TABLET PO ×2 (10:47→16:55)
[2022-03-03] MEDS: Ferrous Sulfate 324 MG TABLET.DR PO ×2 (10:47→20:33)
[2022-03-03] MEDS: Sildenafil Citrate 20 MG TABLET PO ×2 (10:47→14:43)
[2022-03-03] MEDS: Furosemide 40 MG TABLET PO ×2 (10:47→16:55)
[2022-03-03] MEDS: SITagliptin Phosphate 100 MG TABLET PO (10:47)
--- NOTE | 2022-03-03 14:03 | HO.PM.IMPN ---
Subjective Subjective Date of Service: 03/03/22 Interval History: Seems comfortable denies any complaints overnight No reported events overnight Review of Systems Review of Systems: Yes all other systems are reviewed and are negative Physical Exam Vital Signs: Vital Signs: Last Vital Signs Temp 97.3 F 03/03/22 08:00 Pulse 65 03/03/22 08:00 Resp 16 03/03/22 08:00 BP 111/71 03/03/22 08:00 Pulse Ox 98 03/03/22 08:00 O2 Del Method 03/03/22 08:00 O2 Flow Rate 2 02/16/22 07:18 FiO2 94 02/13/22 15:38 BMI result Body Mass Index 21.8 Const: Other: Constitutional : Alert, not in distress Neck : Normal inspection, Supple Cardiovascular : no JVP, no lower extremity edema Respiratory : Chest wall moving bilaterally, not in distress Skin : Warm, Dry Neurological : Alert & interactive, No focal deficit Objective Data Active Medications Acetaminophen (Acetaminophen 325 Mg Tablet) 650 mg PO Q6H PRN PRN Reason: Pain, Mild (Pain Scale 1-3) Atorvastatin Calcium (Atorvastatin Calcium 40 Mg Tablet) 40 mg PO DAILY [facility] Last Admin: 03/03/22 10:46 Dose: 40 mg Documented By: ANAT Dextrose (Dextrose 50 % 25 Gm/50 Ml Syringe) 25 gm IVPUSH Q15M PRN; Protocol PRN Reason: per Hypoglycemia Standing Ord. Divalproex Sodium (Divalproex Sodium Er 250 Mg Tab.Er.24h) 250 mg PO DAILY@1700 [facility] Last Admin: 03/02/22 20:53 Dose: 250 mg Documented By: JUAN Divalproex Sodium (Divalproex Sodium Er 500 Mg Tab.Er.24h) 500 mg PO DAILY [facility] Last Admin: 03/03/22 10:46 Dose: 500 mg Documented By: ANAT Enoxaparin Sodium (Enoxaparin Sodium 40 Mg/0.4 Ml Syringe) 40 mg SUBCUT Q24H [facility] Last Admin: 03/02/22 21:39 Dose: Not Given Documented By: JUAN Non-Admin Reason: Patient Refused Ferrous Sulfate (Ferrous Sulfate 324 Mg Tablet.) 324 mg PO BID [facility] Last Admin: 03/03/22 10:47 Dose: 324 mg Documented By: ANAT Fluticasone Propionate (Fluticasone Propionate Nasal 16 Gm [place]) 1 spray NOSTRIL-B BID [facility] Last Admin: 03/03/22 11:13 Dose: Not Given Documented By: ANAT Non-Admin Reason: Patient Refused Furosemide (Furosemide 40 Mg Tablet) 40 mg PO BID@0900,1800 [facility]; Protocol Last Admin: 03/03/22 10:47 Dose: 40 mg Documented By: ANAT Glucose (Glucose Gel 15 Gm Gel..Gram.) 15 gm PO Q15M PRN; Protocol PRN Reason: per Hypoglycemia Standing Ord. Haloperidol (Haloperidol 5 Mg Tablet) 10 mg PO BID [facility] Last Admin: 03/03/22 10:46 Dose: 10 mg Documented By: ANAT Insulin Glargine (Insulin Glargine,Hum.Rec.Anlog 100 Unit/Ml 10 Ml Vial) 10 unit SUBCUT BEDTIME [facility] Last Admin: 03/02/22 20:52 Dose: 10 unit Documented By: JUAN Insulin Human Lispro (Insulin Lispro 100 Unit/Ml 3 Ml Vial) 0 unit SUBCUT QIDACHS [facility]; Protocol Last Admin: 03/03/22 12:12 Dose: Not Given Documented By: ANAT Non-Admin Reason: No Insulin Coverage Melatonin (Melatonin 3 Mg Tablet) 6 mg PO BEDTIME PRN PRN Reason: Insomnia Last Admin: 02/19/22 20:18 Dose: 6 mg Documented By: EMELINA Metformin HCl (Metformin Hcl 500 Mg Tablet) 500 mg PO BIDWM [facility] Last Admin: 03/03/22 10:47 Dose: 500 mg Documented By: ANAT Neomycin/Polymyxin/Hydrocortisone (Neomycin/Polymyxin/Hc Otic Melanie 10 Ml Drpbtl) 3 drop EAR-RIGHT QID [facility] Last Admin: 03/03/22 12:12 Dose: Not Given Documented By: ANAT Non-Admin Reason: n/s Olanzapine (Olanzapine Odt 10 Mg Tab.Rapdis) 5 mg TRANSLINGU BID PRN PRN Reason: agitation, psychosis Last Admin: 02/09/22 14:45 Dose: 5 mg Documented By: CIRO Omeprazole (Omeprazole 20 Mg Capsule.Dr) 20 mg PO DAILY@0630 [facility] Last Admin: 03/03/22 06:28 Dose: Not Given Documented By: LOGAN Non-Admin Reason: Patient Refused Senna (Sennosides 8.6 Mg Tablet) 17.2 mg PO BEDTIME PRN PRN Reason: Constipation Sildenafil Citrate (Sildenafil Citrate 20 Mg Tablet) 20 mg PO TID [facility] Last Admin: 03/03/22 10:47 Dose: 20 mg Documented By: ANAT Sitagliptin Phosphate (Sitagliptin Phosphate 100 Mg Tablet) 100 mg PO DAILY [facility] Last Admin: 03/03/22 10:47 Dose: 100 mg Documented By: ANAT Sodium Chloride (0.9 % Sodium Chloride Flush 3 Ml Syringe) 3 ml IVFLUSH QSHIFT [facility] Last Admin: 03/03/22 10:37 Dose: Not Given Documented By: ANAT Non-Admin Reason: No Access Labs CBC & Chem 7: 01/16/22 05:35 03/01/22 16:01 Labs: Laboratory Results - last 24 hr 03/02/22 03/02/22 03/03/22 17:06 19:30 07:12 POC Glucose 172 H 166 H 135 H Assessment and Plan (1) Schizo affective schizophrenia: Status: Acute Plan 61 yo M from snf resident with schizophrenia, DM2, possible COPD/asthma [not formally diagnosed], p/w hypoxia + dyspnea found to have severe pulmonary HTN/R-sided HF. no change in care today, still awaiting placement #pulmonary HTN # R-sided HF continue sildenafil as ordered by Pulmonology continue PO furosemide outpt f/u with Pulm with consideration of R-sided cath #COPD/asthma, provisional diagnosis outpt PFTs continue nebs completed a course of steroids completed a course of doxy wears O2 off and on, but is always above 90 #DM2 basal/bolus insulin sitagliptin, metformin # schizoaffective disorder no behavioral issues at this time? continue VPA, haloperidol seen by psych, added prn meds? # HLD continue statin? # GERD continue PPI # VTE ppx LMWH # dispo: [facility] back [facility], plan to dc to LTC, HCP invoked, awaiting bed ? Need for inpatient stay: pending safe dispo to LTC when bed available; despite his insistence, he cannot go back to the snf Has Med treatment plan NOT Garcia order - could give IM Haldol if refuses PO Quality Stroke Does the patient have a stroke diagnosis?: No VTE Prior VTE?: No VTE Risk Level:: Medical - moderate - high VTE Device Contraindication: Treatment Not Indicated VTE Drug Contraindication: N/A - Med Ordered
[2022-03-03 14:38] LABS: Glucose, Whole Blood 117 mg/dL (60-115)
[2022-03-03 15:34] VITALS: BP 111/70; PULSE 67; RESP 18; TEMP 36.3; O2SAT 94
[2022-03-03 15:59] LABS: Glucose, Whole Blood 120 mg/dL (60-115)
[2022-03-03] MEDS: Divalproex Sodium ER 250 MG TAB.ER.24H PO (16:55)
[2022-03-03 19:50] LABS: Glucose, Whole Blood 162 mg/dL (60-115)
[2022-03-03] MEDS: Insulin Glargine,Hum.rec.anlog 100 UNIT/ML 10 ML VIAL 10 UNIT SUBCUT (20:35)
[2022-03-03] MEDS: NeoMYCIN/Polymyxin/HC Otic Sus 10 ML DRPBTL 3 DROP EAR-RIGHT (20:38)
[2022-03-04 07:05] VITALS: BP 99/64; PULSE 73; RESP 16; TEMP 36.7; O2SAT 93
[2022-03-04 07:39] LABS: Glucose, Whole Blood 146 mg/dL (60-115)
[2022-03-04] MEDS: metFORMIN HCl 500 MG TABLET PO (11:04)
[2022-03-04] MEDS: Divalproex Sodium ER 500 MG TAB.ER.24H PO (11:04)
[2022-03-04] MEDS: Sildenafil Citrate 20 MG TABLET PO ×2 (11:04→20:59)
[2022-03-04] MEDS: HaloperidoL 5 MG TABLET 10 MG PO ×2 (11:04→20:59)
[2022-03-04] MEDS: SITagliptin Phosphate 100 MG TABLET PO (11:05)
[2022-03-04] MEDS: Furosemide 40 MG TABLET PO (11:05)
[2022-03-04] MEDS: Atorvastatin Calcium 40 MG TABLET PO (11:05)
[2022-03-04] MEDS: Ferrous Sulfate 324 MG TABLET.DR PO ×2 (11:05→20:59)
--- NOTE | 2022-03-04 11:09 | HO.PM.IMPN ---
Subjective Subjective Date of Service: 03/04/22 Interval History: Seems comfortable Refused to be evaluated this morning No reported events overnight Review of Systems Review of Systems: Yes Unobtainable due to mental condition Physical Exam Vital Signs: Vital Signs: Last Vital Signs Temp 98.1 F 03/04/22 07:05 Pulse 73 03/04/22 07:05 Resp 16 03/04/22 07:05 BP 99/64 03/04/22 07:05 Pulse Ox 93 03/04/22 07:05 O2 Del Method 03/04/22 07:05 O2 Flow Rate 2 02/16/22 07:18 FiO2 94 02/13/22 15:38 BMI result Body Mass Index 21.8 Const: Other: Constitutional : Alert, not in distress Neck : Normal inspection, Supple Skin : Warm, Dry Neurological : Alert & interactive Objective Data Active Medications Acetaminophen (Acetaminophen 325 Mg Tablet) 650 mg PO Q6H PRN PRN Reason: Pain, Mild (Pain Scale 1-3) Atorvastatin Calcium (Atorvastatin Calcium 40 Mg Tablet) 40 mg PO DAILY [facility] Last Admin: 03/04/22 11:05 Dose: 40 mg Documented By: ANAT Dextrose (Dextrose 50 % 25 Gm/50 Ml Syringe) 25 gm IVPUSH Q15M PRN; Protocol PRN Reason: per Hypoglycemia Standing Ord. Divalproex Sodium (Divalproex Sodium Er 250 Mg Tab.Er.24h) 250 mg PO DAILY@1700 [facility] Last Admin: 03/03/22 16:55 Dose: 250 mg Documented By: GENIE Divalproex Sodium (Divalproex Sodium Er 500 Mg Tab.Er.24h) 500 mg PO DAILY [facility] Last Admin: 03/04/22 11:04 Dose: 500 mg Documented By: ANAT Enoxaparin Sodium (Enoxaparin Sodium 40 Mg/0.4 Ml Syringe) 40 mg SUBCUT Q24H [facility] Last Admin: 03/03/22 20:31 Dose: Not Given Documented By: VIOLA Non-Admin Reason: Patient Refused Ferrous Sulfate (Ferrous Sulfate 324 Mg Tablet.) 324 mg PO BID [facility] Last Admin: 03/04/22 11:05 Dose: 324 mg Documented By: ANAT Fluticasone Propionate (Fluticasone Propionate Nasal 16 Gm [place]) 1 spray NOSTRIL-B BID [facility] Last Admin: 03/04/22 11:07 Dose: Not Given Documented By: ANAT Non-Admin Reason: Patient Refused Furosemide (Furosemide 40 Mg Tablet) 40 mg PO BID@0900,1800 [facility]; Protocol Last Admin: 03/04/22 11:05 Dose: 40 mg Documented By: ANAT Glucose (Glucose Gel 15 Gm Gel..Gram.) 15 gm PO Q15M PRN; Protocol PRN Reason: per Hypoglycemia Standing Ord. Haloperidol (Haloperidol 5 Mg Tablet) 10 mg PO BID [facility] Last Admin: 03/04/22 11:04 Dose: 10 mg Documented By: ANAT Insulin Glargine (Insulin Glargine,Hum.Rec.Anlog 100 Unit/Ml 10 Ml Vial) 10 unit SUBCUT BEDTIME [facility] Last Admin: 03/03/22 20:35 Dose: 10 unit Documented By: VIOLA Insulin Human Lispro (Insulin Lispro 100 Unit/Ml 3 Ml Vial) 0 unit SUBCUT QIDACHS [facility]; Protocol Last Admin: 03/04/22 08:37 Dose: Not Given Documented By: ANAT Non-Admin Reason: No Insulin Coverage Melatonin (Melatonin 3 Mg Tablet) 6 mg PO BEDTIME PRN PRN Reason: Insomnia Last Admin: 02/19/22 20:18 Dose: 6 mg Documented By: EMELINA Metformin HCl (Metformin Hcl 500 Mg Tablet) 500 mg PO BIDWM [facility] Last Admin: 03/04/22 11:04 Dose: 500 mg Documented By: ANAT Neomycin/Polymyxin/Hydrocortisone (Neomycin/Polymyxin/Hc Otic Melanie 10 Ml Drpbtl) 3 drop EAR-RIGHT QID [facility] Last Admin: 03/04/22 11:08 Dose: Not Given Documented By: ANAT Non-Admin Reason: Patient Refused Olanzapine (Olanzapine Odt 10 Mg Tab.Rapdis) 5 mg TRANSLINGU BID PRN PRN Reason: agitation, psychosis Last Admin: 02/09/22 14:45 Dose: 5 mg Documented By: CIRO Omeprazole (Omeprazole 20 Mg Capsule.Dr) 20 mg PO DAILY@0630 [facility] Last Admin: 03/04/22 05:16 Dose: Not Given Documented By: VIOLA Non-Admin Reason: Patient Refused Senna (Sennosides 8.6 Mg Tablet) 17.2 mg PO BEDTIME PRN PRN Reason: Constipation Sildenafil Citrate (Sildenafil Citrate 20 Mg Tablet) 20 mg PO TID [facility] Last Admin: 03/04/22 11:04 Dose: 20 mg Documented By: ANAT Sitagliptin Phosphate (Sitagliptin Phosphate 100 Mg Tablet) 100 mg PO DAILY [facility] Last Admin: 03/04/22 11:05 Dose: 100 mg Documented By: ANAT Sodium Chloride (0.9 % Sodium Chloride Flush 3 Ml Syringe) 3 ml IVFLUSH QSHIFT [facility] Last Admin: 03/04/22 08:38 Dose: Not Given Documented By: ANAT Non-Admin Reason: No Access Labs CBC & Chem 7: 01/16/22 05:35 03/01/22 16:01 Labs: Laboratory Results - last 24 hr 03/03/22 03/03/22 03/03/22 11:19 15:36 19:34 POC Glucose 117 H 120 H 162 H 03/04/22 07:07 POC Glucose 146 H Assessment and Plan (1) Schizo affective schizophrenia: Status: Acute Plan 61 yo M from [facility] with schizophrenia, DM2, possible COPD/asthma [not formally diagnosed], p/w hypoxia + dyspnea found to have severe pulmonary HTN/R-sided HF. no change in care today, still awaiting placement #pulmonary HTN # R-sided HF continue sildenafil as ordered by Pulmonology continue PO furosemide outpt f/u with Pulm with consideration of R-sided cath #COPD/asthma, provisional diagnosis outpt PFTs continue nebs completed a course of steroids completed a course of doxy wears O2 off and on, but is always above 90 #DM2 basal/bolus insulin sitagliptin, metformin # schizoaffective disorder no behavioral issues at this time? continue VPA, haloperidol seen by psych, added prn meds? # HLD continue statin? # GERD continue PPI # VTE ppx LMWH # dispo: cannot go back to [facility], plan to dc to LTC, HCP invoked, awaiting bed ? Need for inpatient stay: pending safe dispo to LTC when bed available; despite his insistence, he cannot [facility] back [facility] jail Has Med treatment plan NOT Garcia order - could give IM Haldol if refuses PO Quality Stroke Does the patient have a stroke diagnosis?: No VTE Prior VTE?: No VTE Risk Level:: Medical - moderate - high VTE Device Contraindication: Treatment Not Indicated VTE Drug Contraindication: N/A - Med Ordered
[2022-03-04 11:19] LABS: Glucose, Whole Blood 178 mg/dL (60-115)
[2022-03-04 15:23] VITALS: BP 106/66; PULSE 65; RESP 18; TEMP 36.7; O2SAT 94
[2022-03-04 15:49] LABS: Glucose, Whole Blood 142 mg/dL (60-115)
[2022-03-04 19:55] LABS: Glucose, Whole Blood 187 mg/dL (60-115)
[2022-03-04] MEDS: Insulin Glargine,Hum.rec.anlog 100 UNIT/ML 10 ML VIAL 10 UNIT SUBCUT (21:00)
[2022-03-05] VITALS: BP 101/66; PULSE 71; RESP 18; TEMP 35.8; O2SAT 92
[2022-03-05 07:46] VITALS: BP 99/62; PULSE 61; RESP 14; TEMP 36.2; O2SAT 94
[2022-03-05 08:01] LABS: Glucose, Whole Blood 127 mg/dL (60-115)
[2022-03-05] MEDS: Sildenafil Citrate 20 MG TABLET PO ×3 (09:31→20:26)
[2022-03-05] MEDS: Atorvastatin Calcium 40 MG TABLET PO (09:31)
[2022-03-05] MEDS: metFORMIN HCl 500 MG TABLET PO ×2 (09:31→17:10)
[2022-03-05] MEDS: Furosemide 40 MG TABLET PO ×2 (09:31→17:10)
[2022-03-05] MEDS: Ferrous Sulfate 324 MG TABLET.DR PO ×2 (09:31→20:26)
[2022-03-05] MEDS: HaloperidoL 5 MG TABLET 10 MG PO ×2 (09:31→20:26)
[2022-03-05] MEDS: Divalproex Sodium ER 500 MG TAB.ER.24H PO (09:31)
[2022-03-05] MEDS: SITagliptin Phosphate 100 MG TABLET PO (09:31)
[2022-03-05 11:16] LABS: Glucose, Whole Blood 128 mg/dL (60-115)
--- NOTE | 2022-03-05 11:50 | P.PNIM_ITS ---
Subjective Subjective Date of Service: 03/05/22 Interval History: Seems comfortable denies any complaints No reported events overnight Review of Systems Review of Systems: Yes all other systems are reviewed and are negative Physical Exam Vital Signs: Vital Signs: Last Vital Signs Temp 97.2 F 03/05/22 07:46 Pulse 61 03/05/22 07:46 Resp 14 03/05/22 07:46 BP 99/62 03/05/22 07:46 Pulse Ox 94 03/05/22 07:46 O2 Del Method 03/05/22 07:46 O2 Flow Rate 2 02/16/22 07:18 FiO2 94 02/13/22 15:38 BMI result Body Mass Index 21.8 Const: Other: Constitutional : Alert, not in distress Neck : Normal inspection, Supple Skin : Warm, Dry Neurological : Alert & interactive Objective Data Active Medications Acetaminophen (Acetaminophen 325 Mg Tablet) 650 mg PO Q6H PRN PRN Reason: Pain, Mild (Pain Scale 1-3) Atorvastatin Calcium (Atorvastatin Calcium 40 Mg Tablet) 40 mg PO DAILY [facility] Last Admin: 03/05/22 09:31 Dose: 40 mg Documented By: MARK Dextrose (Dextrose 50 % 25 Gm/50 Ml Syringe) 25 gm IVPUSH Q15M PRN; Protocol PRN Reason: per Hypoglycemia Standing Ord. Divalproex Sodium (Divalproex Sodium Er 250 Mg Tab.Er.24h) 250 mg PO DAILY@1700 [facility] Last Admin: 03/04/22 18:52 Dose: Not Given Documented By: JAYDA Non-Admin Reason: Patient Refused Divalproex Sodium (Divalproex Sodium Er 500 Mg Tab.Er.24h) 500 mg PO DAILY [facility] Last Admin: 03/05/22 09:31 Dose: 500 mg Documented By: MARK Enoxaparin Sodium (Enoxaparin Sodium 40 Mg/0.4 Ml Syringe) 40 mg SUBCUT Q24H [facility] Last Admin: 03/04/22 21:00 Dose: Not Given Documented By: JAYDA Non-Admin Reason: Patient Refused Ferrous Sulfate (Ferrous Sulfate 324 Mg Tablet.) 324 mg PO BID [facility] Last Admin: 03/05/22 09:31 Dose: 324 mg Documented By: MARK Fluticasone Propionate (Fluticasone Propionate Nasal 16 Gm [place]) 1 spray NOSTRIL-B BID [facility] Last Admin: 03/05/22 09:33 Dose: Not Given Documented By: MARK Non-Admin Reason: Patient Refused Furosemide (Furosemide 40 Mg Tablet) 40 mg PO BID@0900,1800 [facility]; Protocol Last Admin: 03/05/22 09:31 Dose: 40 mg Documented By: MARK Glucose (Glucose Gel 15 Gm Gel..Gram.) 15 gm PO Q15M PRN; Protocol PRN Reason: per Hypoglycemia Standing Ord. Haloperidol (Haloperidol 5 Mg Tablet) 10 mg PO BID [facility] Last Admin: 03/05/22 09:31 Dose: 10 mg Documented By: MARK Insulin Glargine (Insulin Glargine,Hum.Rec.Anlog 100 Unit/Ml 10 Ml Vial) 10 unit SUBCUT BEDTIME [facility] Last Admin: 03/04/22 21:00 Dose: 10 unit Documented By: JAYDA Insulin Human Lispro (Insulin Lispro 100 Unit/Ml 3 Ml Vial) 0 unit SUBCUT QIDACHS [facility]; Protocol Last Admin: 03/05/22 09:17 Dose: Not Given Documented By: MARK Non-Admin Reason: No Insulin Coverage Melatonin (Melatonin 3 Mg Tablet) 6 mg PO BEDTIME PRN PRN Reason: Insomnia Last Admin: 02/19/22 20:18 Dose: 6 mg Documented By: EMELINA Metformin HCl (Metformin Hcl 500 Mg Tablet) 500 mg PO BIDWM [facility]PL[facility] Last Admin: 03/05/22 09:31 Dose: 500 mg Documented By: MARK Neomycin/Polymyxin/Hydrocortisone (Neomycin/Polymyxin/Hc Otic Melaine 10 Ml Drpbtl) 3 drop EAR-RIGHT QID [facility] Last Admin: 03/05/22 09:33 Dose: Not Given Documented By: MARK Non-Admin Reason: Patient Refused Olanzapine (Olanzapine Odt 10 Mg Tab.Rapdis) 5 mg TRANSLINGU BID PRN PRN Reason: agitation, psychosis Last Admin: 02/09/22 14:45 Dose: 5 mg Documented By: CIOR Omeprazole (Omeprazole 20 Mg Capsule.) 20 mg PO DAILY@0630 [facility] Last Admin: 03/05/22 06:37 Dose: Not Given Documented By: LOGAN Non-Admin Reason: Patient Refused Senna (Sennosides 8.6 Mg Tablet) 17.2 mg PO BEDTIME PRN PRN Reason: Constipation Sildenafil Citrate (Sildenafil Citrate 20 Mg Tablet) 20 mg PO TID [facility] Last Admin: 03/05/22 09:31 Dose: 20 mg Documented By: MARK Sitagliptin Phosphate (Sitagliptin Phosphate 100 Mg Tablet) 100 mg PO DAILY [facility] Last Admin: 03/05/22 09:31 Dose: 100 mg Documented By: MARK Sodium Chloride (0.9 % Sodium Chloride Flush 3 Ml Syringe) 3 ml IVFLUSH QSHIFT [facility]PL[facility]ED [facility] Last Admin: 03/05/22 09:17 Dose: Not Given Documented By: MARK Non-Admin Reason: No Access Labs CBC & Chem 7: 01/16/22 05:35 03/01/22 16:01 Labs: Laboratory Results - last 24 hr 03/04/22 03/04/22 03/05/22 15:43 19:45 07:56 POC Glucose 142 H 187 H 127 H 03/05/22 11:11 POC Glucose 128 H Assessment and Plan (1) Schizo affective schizophrenia: Status: Acute Plan 61 yo M [facility] with [facility], DM2, possible COPD/asthma [not formally diagnosed], p/w hypoxia + dyspnea found to have severe pulmonary HTN/R-sided HF. no change in care today, still awaiting placement #pulmonary HTN # R-sided HF continue sildenafil as ordered by Pulmonology continue PO furosemide outpt f/u with Pulm with consideration of R-sided cath #COPD/asthma, provisional diagnosis outpt PFTs continue nebs completed a course of steroids completed a course of doxy wears O2 off and on, but is always above 90 #DM2 basal/bolus insulin sitagliptin, metformin # schizoaffective disorder no behavioral issues at this time? continue VPA, haloperidol seen by psych, added prn meds? # HLD continue statin? # GERD continue PPI # VTE ppx LMWH # dispo: cannot go back to [facility], plan to dc to LTC, HCP invoked, awaiting bed ? Need for inpatient stay: pending safe dispo to LTC when bed available; despite his insistence, [facility] Has Med treatment plan NOT [facility] order - could give IM Haldol if refuses PO Quality Stroke Does the patient have a stroke diagnosis?: No VTE Prior VTE?: No VTE Risk Level:: Medical - moderate - high VTE Device Contraindication: Treatment Not Indicated VTE Drug Contraindication: N/A - Med Ordered
--- NOTE | 2022-03-05 13:28 | MHC.CM.PN ---
EMR REVIEWED, PT CONT'S TO NEED SECURE LTC BED D/T ELOPEMENT RISK, SNF REFERRAL UPDATED AND SEARCH IS FROM [facility], NO BED OFFERS AT THIS TIME, CM HAS STILL NOT RECEIVED A CALL BACK FROM [facility], CM LEFT ANOTHER MESSAGE W/CM CONTACT INFO AT [phone], PT ALSO HAS PRE-TRIAL HEARING RE [facility] COMING UP, CM WILL CONT TO FOLLOW REFERRALS AND D/C NEEDS.
[2022-03-05 16:00] VITALS: BP 103/70; PULSE 69; RESP 18; TEMP 36.3; O2SAT 95
[2022-03-05 16:46] LABS: Glucose, Whole Blood 123 mg/dL (60-115)
[2022-03-05] MEDS: Divalproex Sodium ER 250 MG TAB.ER.24H PO (17:10)
[2022-03-05 20:53] LABS: Glucose, Whole Blood 152 mg/dL (60-115)
[2022-03-05] MEDS: Insulin Lispro 100 UNIT/ML 3 ML VIAL SUBCUT (20:58)
[2022-03-05] MEDS: Insulin Glargine,Hum.rec.anlog 100 UNIT/ML 10 ML VIAL 10 UNIT SUBCUT (20:58)
[2022-03-05 23:41] VITALS: BP 110/72; PULSE 67; RESP 14; TEMP 36.5; O2SAT 92
[2022-03-06 07:41] VITALS: BP 97/62; PULSE 60; RESP 16; TEMP 36.5; O2SAT 95
[2022-03-06 07:46] LABS: Glucose, Whole Blood 120 mg/dL (60-115)
[2022-03-06 11:30] LABS: Glucose, Whole Blood 197 mg/dL (60-115)
--- NOTE | 2022-03-06 11:51 | HO.PM.IMPN ---
Subjective Subjective Date of Service: 03/06/22 Interval History: Seems comfortable sleeping in his bed, refused medications this morning denies any complaints No reported events overnight Review of Systems Review of Systems: Yes all other systems are reviewed and are negative Physical Exam Vital Signs: Vital Signs: Last Vital Signs Temp 97.7 F 03/06/22 07:41 Pulse 60 03/06/22 07:41 Resp 16 03/06/22 07:41 BP 97/62 03/06/22 07:41 Pulse Ox 95 03/06/22 07:41 O2 Del Method 03/06/22 07:41 O2 Flow Rate 2 02/16/22 07:18 FiO2 94 02/13/22 15:38 BMI result Body Mass Index 21.8 Const: Other: Constitutional : Alert, not in distress Neck : Normal inspection, Supple Skin : Warm, Dry Neurological : Alert & interactive Objective Data Active Medications Acetaminophen (Acetaminophen 325 Mg Tablet) 650 mg PO Q6H PRN PRN Reason: Pain, Mild (Pain Scale 1-3) Atorvastatin Calcium (Atorvastatin Calcium 40 Mg Tablet) 40 mg PO DAILY [facility] Last Admin: 03/06/22 11:18 Dose: Not Given Documented By: MARK Non-Admin Reason: Patient Refused Dextrose (Dextrose 50 % 25 Gm/50 Ml Syringe) 25 gm IVPUSH Q15M PRN; Protocol PRN Reason: per Hypoglycemia Standing Ord. Divalproex Sodium (Divalproex Sodium Er 250 Mg Tab.Er.24h) 250 mg PO DAILY@1700 [facility] Last Admin: 03/05/22 17:10 Dose: 250 mg Documented By: MARK Divalproex Sodium (Divalproex Sodium Er 500 Mg Tab.Er.24h) 500 mg PO DAILY [facility] Last Admin: 03/06/22 11:18 Dose: Not Given Documented By: MARK Non-Admin Reason: Patient Refused Enoxaparin Sodium (Enoxaparin Sodium 40 Mg/0.4 Ml Syringe) 40 mg SUBCUT Q24H [facility] Last Admin: 03/05/22 19:22 Dose: Not Given Documented By: GENIE Non-Admin Reason: Patient Refused Ferrous Sulfate (Ferrous Sulfate 324 Mg Tablet.) 324 mg PO BID [facility] Last Admin: 03/06/22 11:18 Dose: Not Given Documented By: MARK Non-Admin Reason: Patient Refused Fluticasone Propionate (Fluticasone Propionate Nasal 16 Gm [place]) 1 spray NOSTRIL-B BID [facility] Last Admin: 03/06/22 11:18 Dose: Not Given Documented By: MARK Non-Admin Reason: Patient Refused Furosemide (Furosemide 40 Mg Tablet) 40 mg PO BID@0900,1800 [facility]; Protocol Last Admin: 03/06/22 11:18 Dose: Not Given Documented By: MARK Non-Admin Reason: Patient Refused Glucose (Glucose Gel 15 Gm Gel..Gram.) 15 gm PO Q15M PRN; Protocol PRN Reason: per Hypoglycemia Standing Ord. Haloperidol (Haloperidol 5 Mg Tablet) 10 mg PO BID [facility] Last Admin: 03/06/22 11:19 Dose: Not Given Documented By: MARK Non-Admin Reason: Patient Refused Insulin Glargine (Insulin Glargine,Hum.Rec.Anlog 100 Unit/Ml 10 Ml Vial) 10 unit SUBCUT BEDTIME [facility] Last Admin: 03/05/22 20:58 Dose: 10 unit Documented By: GENIE Insulin Human Lispro (Insulin Lispro 100 Unit/Ml 3 Ml Vial) 0 unit SUBCUT QIDACHS [facility]; Protocol Last Admin: 03/06/22 08:06 Dose: Not Given Documented By: MARK Non-Admin Reason: No Insulin Coverage Melatonin (Melatonin 3 Mg Tablet) 6 mg PO BEDTIME PRN PRN Reason: Insomnia Last Admin: 02/19/22 20:18 Dose: 6 mg Documented By: EMELINA Metformin HCl (Metformin Hcl 500 Mg Tablet) 500 mg PO BIDWM [facility] Last Admin: 03/06/22 11:18 Dose: Not Given Documented By: MARK Non-Admin Reason: Patient Refused Neomycin/Polymyxin/Hydrocortisone (Neomycin/Polymyxin/Hc Otic Melanie 10 Ml Drpbtl) 3 drop EAR-RIGHT QID [facility] Last Admin: 03/06/22 11:19 Dose: Not Given Documented By: MARK Non-Admin Reason: Patient Refused Olanzapine (Olanzapine Odt 10 Mg Tab.Rapdis) 5 mg TRANSLINGU BID PRN PRN Reason: agitation, psychosis Last Admin: 02/09/22 14:45 Dose: 5 mg Documented By: CIRO Omeprazole (Omeprazole 20 Mg Capsule.Dr) 20 mg PO DAILY@0630 [facility] Last Admin: 03/06/22 05:28 Dose: Not Given Documented By: JUVENAL Non-Admin Reason: Patient Refused Senna (Sennosides 8.6 Mg Tablet) 17.2 mg PO BEDTIME PRN PRN Reason: Constipation Sildenafil Citrate (Sildenafil Citrate 20 Mg Tablet) 20 mg PO TID [facility] Last Admin: 03/06/22 11:19 Dose: Not Given Documented By: MARK Non-Admin Reason: Patient Refused Sitagliptin Phosphate (Sitagliptin Phosphate 100 Mg Tablet) 100 mg PO DAILY [facility] Last Admin: 03/06/22 11:19 Dose: Not Given Documented By: MARK Non-Admin Reason: Patient Refused Sodium Chloride (0.9 % Sodium Chloride Flush 3 Ml Syringe) 3 ml IVFLUSH QSHIFT [facility] Last Admin: 03/06/22 07:28 Dose: Not Given Documented By: MARK Non-Admin Reason: No Access Labs CBC & Chem 7: 01/16/22 05:35 03/01/22 16:01 Labs: Laboratory Results - last 24 hr 03/05/22 03/05/22 03/06/22 16:32 20:48 07:41 POC Glucose 123 H 152 H 120 H 03/06/22 11:25 POC Glucose 197 H Assessment and Plan (1) Schizo affective schizophrenia: Status: Acute Plan 61 yo M from [facility] with schizophrenia, DM2, possible COPD/asthma [not formally diagnosed], p/w hypoxia + dyspnea found to have severe pulmonary HTN/R-sided HF. no change in care today, still awaiting placement #pulmonary HTN # R-sided HF continue sildenafil as ordered by Pulmonology continue PO furosemide outpt f/u with Pulm with consideration of R-sided cath #COPD/asthma, provisional diagnosis outpt PFTs continue nebs completed a course of steroids completed a course of doxy wears O2 off and on, but is always above 90 #DM2 basal/bolus insulin sitagliptin, metformin # schizoaffective disorder no behavioral issues at this time? continue VPA, haloperidol seen by psych, added prn meds? # HLD continue statin? # GERD continue PPI # VTE ppx LMWH # dispo: cannot go back to [facility], plan to dc to LTC, HCP invoked, awaiting bed ? Need for inpatient stay: pending safe dispo to LTC when bed available; despite his insistence, he cannot go back to the intermediate Has Med treatment plan NOT Jose order - could give IM Haldol if refuses PO Quality Stroke Does the patient have a stroke diagnosis?: No VTE Prior VTE?: No VTE Risk Level:: Medical - moderate - high VTE Device Contraindication: Treatment Not Indicated VTE Drug Contraindication: N/A - Med Ordered
--- NOTE | 2022-03-06 12:05 | PC.NURSE ---
pt refused all morning medications, Dr Au made aware. Pt refused Lunchtime 2 units of insulin per SSI. Dr Au made aware.
[2022-03-06 15:37] VITALS: BP 113/63; PULSE 85; RESP 18; TEMP 36.9; O2SAT 96
[2022-03-06 15:54] LABS: Glucose, Whole Blood 197 mg/dL (60-115)
[2022-03-06] MEDS: metFORMIN HCl 500 MG TABLET PO (17:25)
[2022-03-06] MEDS: Sildenafil Citrate 20 MG TABLET PO (17:25)
[2022-03-06] MEDS: Divalproex Sodium ER 250 MG TAB.ER.24H PO (17:25)
[2022-03-06] MEDS: Furosemide 40 MG TABLET PO (17:25)
[2022-03-06 19:22] LABS: Glucose, Whole Blood 159 mg/dL (60-115)
[2022-03-07 07:17] VITALS: BP 104/67; PULSE 57; RESP 21; TEMP 36.9; O2SAT 94
[2022-03-07 07:25] LABS: Glucose, Whole Blood 115 mg/dL (60-115)
[2022-03-07] MEDS: SITagliptin Phosphate 100 MG TABLET PO (09:39)
[2022-03-07] MEDS: Sildenafil Citrate 20 MG TABLET PO ×3 (09:39→20:24)
[2022-03-07] MEDS: HaloperidoL 5 MG TABLET 10 MG PO ×2 (09:39→20:24)
[2022-03-07] MEDS: metFORMIN HCl 500 MG TABLET PO ×2 (09:39→16:37)
[2022-03-07] MEDS: Ferrous Sulfate 324 MG TABLET.DR PO ×2 (09:39→20:24)
[2022-03-07] MEDS: Atorvastatin Calcium 40 MG TABLET PO (09:40)
[2022-03-07] MEDS: Divalproex Sodium ER 500 MG TAB.ER.24H PO (09:40)
[2022-03-07] MEDS: Furosemide 40 MG TABLET PO (09:40)
--- NOTE | 2022-03-07 11:47 | HO.PM.IMPN ---
Subjective Subjective Date of Service: 03/07/22 Interval History: Seems comfortable sleeping in his bed denies any complaints No reported events overnight Physical Exam Vital Signs: Vital Signs: Last Vital Signs Temp 98.5 F 03/07/22 07:17 Pulse 57 03/07/22 07:17 Resp 21 H 03/07/22 07:17 BP 104/67 03/07/22 07:17 Pulse Ox 94 03/07/22 07:17 O2 Del Method 03/07/22 07:17 O2 Flow Rate 2 02/16/22 07:18 FiO2 94 02/13/22 15:38 BMI result Body Mass Index 21.8 Const: Other: Constitutional : Alert, not in distress Neck : Normal inspection, Supple Skin : Warm, Dry Neurological : Alert & interactive Objective Data Active Medications Acetaminophen (Acetaminophen 325 Mg Tablet) 650 mg PO Q6H PRN PRN Reason: Pain, Mild (Pain Scale 1-3) Atorvastatin Calcium (Atorvastatin Calcium 40 Mg Tablet) 40 mg PO DAILY [facility] Last Admin: 03/07/22 09:40 Dose: 40 mg Documented By: CIRO Dextrose (Dextrose 50 % 25 Gm/50 Ml Syringe) 25 gm IVPUSH Q15M PRN; Protocol PRN Reason: per Hypoglycemia Standing Ord. Divalproex Sodium (Divalproex Sodium Er 250 Mg Tab.Er.24h) 250 mg PO DAILY@1700 [facility] [place] Last Admin: 03/06/22 17:25 Dose: 250 mg Documented By: MARK Divalproex Sodium (Divalproex Sodium Er 500 Mg Tab.Er.24h) 500 mg PO DAILY [facility] [place] Last Admin: 03/07/22 09:40 Dose: 500 mg Documented By: CIRO Enoxaparin Sodium (Enoxaparin Sodium 40 Mg/0.4 Ml Syringe) 40 mg SUBCUT Q24H [facility] [place] Last Admin: 03/06/22 22:36 Dose: Not Given Documented By: NELSY Non-Admin Reason: Patient Refused Ferrous Sulfate (Ferrous Sulfate 324 Mg Tablet.) 324 mg PO BID [facility] [place] Last Admin: 03/07/22 09:39 Dose: 324 mg Documented By: CIRO Fluticasone Propionate (Fluticasone Propionate Nasal 16 Gm [place]) 1 spray NOSTRIL-B BID [facility] [place] Last Admin: 03/07/22 09:43 Dose: Not Given Documented By: CIRO Non-Admin Reason: Patient Refused Furosemide (Furosemide 40 Mg Tablet) 40 mg PO BID@0900,1800 [facility] [place]; Protocol Last Admin: 03/07/22 09:40 Dose: 40 mg Documented By: CIRO Glucose (Glucose Gel 15 Gm Gel..Gram.) 15 gm PO Q15M PRN; Protocol PRN Reason: per Hypoglycemia Standing Ord. Haloperidol (Haloperidol 5 Mg Tablet) 10 mg PO BID [facility] [place] Last Admin: 03/07/22 09:39 Dose: 10 mg Documented By: CIRO Insulin Glargine (Insulin Glargine,Hum.Rec.Anlog 100 Unit/Ml 10 Ml Vial) 10 unit SUBCUT BEDTIME [facility] [place] Last Admin: 03/06/22 22:41 Dose: Not Given Documented By: NELSY Non-Admin Reason: Patient Refused Insulin Human Lispro (Insulin Lispro 100 Unit/Ml 3 Ml Vial) 0 unit SUBCUT QIDACHS [facility] [place]; Protocol Last Admin: 03/07/22 09:38 Dose: Not Given Documented By: CIRO Non-Admin Reason: No Insulin Coverage Melatonin (Melatonin 3 Mg Tablet) 6 mg PO BEDTIME PRN PRN Reason: Insomnia Last Admin: 02/19/22 20:18 Dose: 6 mg Documented By: EMELINA Metformin HCl (Metformin Hcl 500 Mg Tablet) 500 mg PO BIDWM [facility] [place] Last Admin: 03/07/22 09:39 Dose: 500 mg Documented By: CIRO Neomycin/Polymyxin/Hydrocortisone (Neomycin/Polymyxin/Hc Otic Melanie 10 Ml Drpbtl) 3 drop EAR-RIGHT QID [facility] [place] Last Admin: 03/07/22 09:43 Dose: Not Given Documented By: CIRO Non-Admin Reason: Patient Refused Olanzapine (Olanzapine Odt 10 Mg Tab.Rapdis) 5 mg TRANSLINGU BID PRN PRN Reason: agitation, psychosis Last Admin: 02/09/22 14:45 Dose: 5 mg Documented By: CIRO Omeprazole (Omeprazole 20 Mg Capsule.Dr) 20 mg PO DAILY@0630 [facility] [place] Last Admin: 03/07/22 06:03 Dose: Not Given Documented By: NELSY Non-Admin Reason: Patient Refused Senna (Sennosides 8.6 Mg Tablet) 17.2 mg PO BEDTIME PRN PRN Reason: Constipation Sildenafil Citrate (Sildenafil Citrate 20 Mg Tablet) 20 mg PO TID [facility] [place] Last Admin: 03/07/22 09:39 Dose: 20 mg Documented By: CIRO Sitagliptin Phosphate (Sitagliptin Phosphate 100 Mg Tablet) 100 mg PO DAILY [facility] [place] Last Admin: 03/07/22 09:39 Dose: 100 mg Documented By: CIRO Sodium Chloride (0.9 % Sodium Chloride Flush 3 Ml Syringe) 3 ml IVFLUSH QSHIFT [facility] [place] Last Admin: 03/07/22 09:38 Dose: Not Given Documented By: CIRO Non-Admin Reason: No Access Labs CBC & Chem 7: 01/16/22 05:35 03/01/22 16:01 Labs: Laboratory Results - last 24 hr 03/06/22 03/06/22 03/07/22 15:41 19:16 07:18 POC Glucose 197 H 159 H 115 Assessment and Plan (1) Schizo affective schizophrenia: Status: Acute Plan 61 [facility] M from [facility] with schizophrenia, DM2, possible COPD/asthma [not formally diagnosed], p/w hypoxia + dyspnea found to have severe pulmonary HTN/R-sided HF. no change in care today, still awaiting placement #pulmonary HTN # R-sided HF continue sildenafil as ordered by Pulmonology continue PO furosemide outpt f/u with Pulm with consideration of R-sided cath #COPD/asthma, provisional diagnosis outpt PFTs continue nebs completed a course of steroids and doxy wears O2 off and on, but is always above 90 #DM2 basal/bolus insulin sitagliptin, metformin # schizoaffective disorder no behavioral issues at this time? continue VPA, haloperidol seen by psych, added prn meds? # HLD continue statin? # GERD continue PPI # VTE ppx LMWH # [facility], plan to [facility] to [facility], HCP invoked, awaiting bed ? Need for inpatient stay: pending safe dispo to LTC when bed available; despite his insistence, [facility] Has Med treatment plan NOT Garcia order - could give IM Haldol if refuses PO Quality Stroke Does the patient have a stroke diagnosis?: No VTE Prior VTE?: No VTE Risk Level:: Medical - moderate - high VTE Device Contraindication: Treatment Not Indicated VTE Drug Contraindication: N/A - Med Ordered
[2022-03-07 15:56] LABS: Glucose, Whole Blood 188 mg/dL (60-115)
[2022-03-07 16:00] VITALS: BP 86/59; PULSE 62; RESP 16; TEMP 37.2; O2SAT 97
[2022-03-07] MEDS: Divalproex Sodium ER 250 MG TAB.ER.24H PO (16:38)
[2022-03-07] MEDS: Enoxaparin Sodium 40 MG/0.4 ML SYRINGE SUBCUT (20:24)
[2022-03-07 20:30] LABS: Glucose, Whole Blood 149 mg/dL (60-115)
[2022-03-07 23:55] VITALS: BP 117/75; PULSE 67; RESP 16; TEMP 36.6; O2SAT 97
[2022-03-08] MEDS: Omeprazole 20 MG CAPSULE.DR PO (06:34)
[2022-03-08 07:17] VITALS: BP 99/72; PULSE 63; RESP 17; TEMP 36.4; O2SAT 95
[2022-03-08 07:22] LABS: Glucose, Whole Blood 147 mg/dL (60-115)
[2022-03-08] MEDS: HaloperidoL 5 MG TABLET 10 MG PO ×2 (09:47→20:19)
[2022-03-08 11:26] LABS: Glucose, Whole Blood 214 mg/dL (60-115)
--- NOTE | 2022-03-08 11:58 | P.PNIM_ITS ---
Subjective Subjective Date of Service: 03/08/22 Interval History: seen and examined this morning Follow-up for placement Patient, cooperative this morning although still not allowing blood draws Review of Systems Review of Systems: Yes all other systems are reviewed and are negative Constitutional Constitutional: Denies chills and Denies fever(s) Cardiovascular Cardiovascular: Denies chest pain, Denies palpitations and Denies dyspnea Respiratory Respiratory: Denies cough and Denies dyspnea Gastrointestinal Gastrointestinal: Denies abdominal pain Endocrine Endocrine: Denies palpitations Physical Exam Vital Signs: Vital Signs: Last Vital Signs Temp 97.5 F 03/08/22 07:17 Pulse 63 03/08/22 07:17 Resp 17 03/08/22 07:17 BP 99/72 03/08/22 07:17 Pulse Ox 95 03/08/22 07:17 O2 Del Method 03/08/22 07:17 O2 Flow Rate 2 02/16/22 07:18 FiO2 94 02/13/22 15:38 BMI result Body Mass Index 21.8 Const: General: comfortable, no acute distress, alert and awake Nutritional Appearance: average body habitus Resp: Effort & Inspection: normal respiratory effort and able to speak in complete sentences Cardio: Rate: regular rate Heart sounds: S1 normal heart sound present and S2 normal heart sound present GI: Palpation (GI): Soft to palpation and nontender Extrem: General: Yes no pedal edema Objective Data Active Medications Acetaminophen (Acetaminophen 325 Mg Tablet) 650 mg PO Q6H PRN PRN Reason: Pain, Mild (Pain Scale 1-3) Atorvastatin Calcium (Atorvastatin Calcium 40 Mg Tablet) 40 mg PO DAILY [facility] Last Admin: 03/08/22 09:51 Dose: Not Given Documented By: LUCILA Non-Admin Reason: Patient Refused Dextrose (Dextrose 50 % 25 Gm/50 Ml Syringe) 25 gm IVPUSH Q15M PRN; Protocol PRN Reason: per Hypoglycemia Standing Ord. Divalproex Sodium (Divalproex Sodium Er 250 Mg Tab.Er.24h) 250 mg PO DAILY@1700 [facility] Last Admin: 03/07/22 16:38 Dose: 250 mg Documented By: CIRO Divalproex Sodium (Divalproex Sodium Er 500 Mg Tab.Er.24h) 500 mg PO DAILY [facility] Last Admin: 03/08/22 09:51 Dose: Not Given Documented By: LUCILA Non-Admin Reason: Patient Refused Enoxaparin Sodium (Enoxaparin Sodium 40 Mg/0.4 Ml Syringe) 40 mg SUBCUT Q24H [facility] Last Admin: 03/07/22 20:24 Dose: 40 mg Documented By: NELSY Ferrous Sulfate (Ferrous Sulfate 324 Mg Tablet.Dr) 324 mg PO BID [facility] Last Admin: 03/08/22 09:51 Dose: Not Given Documented By: LUCILA Non-Admin Reason: Patient Refused Fluticasone Propionate (Fluticasone Propionate Nasal 16 Gm [place]) 1 spray NOSTRIL-B BID [facility] Last Admin: 03/08/22 09:51 Dose: Not Given Documented By: LUCILA Non-Admin Reason: Patient Refused Furosemide (Furosemide 40 Mg Tablet) 40 mg PO BID@0900,1800 [facility]; Protocol Last Admin: 03/08/22 09:51 Dose: Not Given Documented By: LUCILA Non-Admin Reason: Patient Refused Glucose (Glucose Gel 15 Gm Gel..Gram.) 15 gm PO Q15M PRN; Protocol PRN Reason: per Hypoglycemia Standing Ord. Haloperidol (Haloperidol 5 Mg Tablet) 10 mg PO BID [facility] Last Admin: 03/08/22 09:47 Dose: 10 mg Documented By: LUCILA Insulin Glargine (Insulin Glargine,Hum.Rec.Anlog 100 Unit/Ml 10 Ml Vial) 10 unit SUBCUT BEDTIME [facility] Last Admin: 03/07/22 20:27 Dose: Not Given Documented By: NELSY Non-Admin Reason: Patient Refused Insulin Human Lispro (Insulin Lispro 100 Unit/Ml 3 Ml Vial) 0 unit SUBCUT QIDACHS [facility]; Protocol Last Admin: 03/08/22 07:28 Dose: Not Given Documented By: LUCILA Non-Admin Reason: No Insulin Coverage Melatonin (Melatonin 3 Mg Tablet) 6 mg PO BEDTIME PRN PRN Reason: Insomnia Last Admin: 02/19/22 20:18 Dose: 6 mg Documented By: EMELINA Metformin HCl (Metformin Hcl 500 Mg Tablet) 500 mg PO BIDWM [facility] Last Admin: 03/08/22 09:51 Dose: Not Given Documented By: LUCILA Non-Admin Reason: Patient Refused Neomycin/Polymyxin/Hydrocortisone (Neomycin/Polymyxin/Hc Otic Melanie 10 Ml Drpbtl) 3 drop EAR-RIGHT QID [facility] Last Admin: 03/08/22 10:25 Dose: Not Given Documented By: LUCILA Non-Admin Reason: Patient Refused Olanzapine (Olanzapine Odt 10 Mg Tab.Rapdis) 5 mg TRANSLINGU BID PRN PRN Reason: agitation, psychosis Last Admin: 02/09/22 14:45 Dose: 5 mg Documented By: CIRO Omeprazole (Omeprazole 20 Mg Capsule.) 20 mg PO DAILY@0630 [facility] Last Admin: 03/08/22 06:34 Dose: 20 mg Documented By: NELSY Senna (Sennosides 8.6 Mg Tablet) 17.2 mg PO BEDTIME PRN PRN Reason: Constipation Sildenafil Citrate (Sildenafil Citrate 20 Mg Tablet) 20 mg PO TID [facility] Last Admin: 03/08/22 09:52 Dose: Not Given Documented By: LUCILA Non-Admin Reason: Patient Refused Sitagliptin Phosphate (Sitagliptin Phosphate 100 Mg Tablet) 100 mg PO DAILY [facility] Last Admin: 03/08/22 09:52 Dose: Not Given Documented By: LUCILA Non-Admin Reason: Patient Refused Sodium Chloride (0.9 % Sodium Chloride Flush 3 Ml Syringe) 3 ml IVFLUSH QSHIFT [facility] Last Admin: 03/08/22 07:14 Dose: Not Given Documented By: DALILA Non-Admin Reason: No Access Labs CBC & Chem 7: 01/16/22 05:35 03/01/22 16:01 Labs: Laboratory Results - last 24 hr 03/07/22 03/07/22 03/08/22 15:00 20:23 07:16 POC Glucose 188 H 149 H 147 H 03/08/22 11:22 POC Glucose 214 H Assessment and Plan (1) Schizo affective schizophrenia: Status: Acute Plan 61 yo M from halfway resident with schizophrenia, DM2, possible COPD/asthma [not formally diagnosed], p/w hypoxia + dyspnea found to have severe pulmonary HTN/R-sided HF. no change in care today, still awaiting placement #pulmonary HTN # R-sided HF continue sildenafil as ordered by Pulmonology continue PO furosemide outpt f/u with Pulm with consideration of R-sided cath #COPD/asthma, provisional diagnosis outpt PFTs continue nebs completed a course of steroids and doxy wears O2 off and on, but is always above 90 #DM2 basal/bolus insulin sitagliptin, metformin # schizoaffective disorder no behavioral issues at this time? continue VPA, haloperidol seen by psych, added prn meds? # HLD continue statin? # GERD continue PPI # VTE ppx LMWH # dispo: [facility] to [facility], plan to [facility] to [facility], HCP invoked, awaiting bed ? Need for inpatient stay: pending safe dispo to LTC when bed available; despite his insistence, he cannot go back to the halfway Has Med treatment plan NOT Garcia order - could give IM Haldol if refuses PO Quality Stroke Does the patient have a stroke diagnosis?: No VTE Prior VTE?: No VTE Risk Level:: Medical - moderate - high VTE Device Contraindication: Treatment Not Indicated VTE Drug Contraindication: N/A - Med Ordered
--- NOTE | 2022-03-08 15:03 | MHC.CM.PN ---
EMR REVIEWED, CM ATTEMPTED TO CONTACT [facility] REGARDING REFERRAL, NO ANSWER AND MESSAGE LEFT, SNF REFERRAL UPDATED [facility], [facility] OFFERS AT TIME OF THIS NOTE, CM WILL CONT TO FOLLOW D/C NEEDS.
[2022-03-08 16:00] VITALS: BP 109/66; PULSE 73; RESP 20; TEMP 36.8; O2SAT 92
[2022-03-08 16:03] LABS: Glucose, Whole Blood 138 mg/dL (60-115)
[2022-03-08] MEDS: Furosemide 40 MG TABLET PO (17:00)
[2022-03-08] MEDS: metFORMIN HCl 500 MG TABLET PO (17:00)
[2022-03-08] MEDS: Divalproex Sodium ER 250 MG TAB.ER.24H PO (17:01)
[2022-03-08 19:33] LABS: Glucose, Whole Blood 163 mg/dL (60-115)
[2022-03-08] MEDS: Ferrous Sulfate 324 MG TABLET.DR PO (20:19)
[2022-03-08] MEDS: Insulin Glargine,Hum.rec.anlog 100 UNIT/ML 10 ML VIAL 10 UNIT SUBCUT (20:19)
[2022-03-08] MEDS: Insulin Lispro 100 UNIT/ML 3 ML VIAL SUBCUT (20:19)
[2022-03-08] MEDS: Sildenafil Citrate 20 MG TABLET PO (20:19)
[2022-03-08] MEDS: Enoxaparin Sodium 40 MG/0.4 ML SYRINGE SUBCUT (20:19)
[2022-03-08] MEDS: Melatonin 3 MG TABLET 6 MG PO (20:19)
[2022-03-08 23:43] VITALS: BP 115/68; PULSE 61; RESP 16; TEMP 36.5; O2SAT 97
[2022-03-09 06:59] VITALS: BP 103/70; PULSE 72; RESP 18; TEMP 36.7; O2SAT 90
[2022-03-09 08:04] LABS: Glucose, Whole Blood 123 mg/dL (60-115)
[2022-03-09 11:01] LABS: Glucose, Whole Blood 127 mg/dL (60-115)
[2022-03-09] MEDS: Sildenafil Citrate 20 MG TABLET PO ×3 (11:30→19:55)
[2022-03-09] MEDS: HaloperidoL 5 MG TABLET 10 MG PO ×2 (11:30→19:55)
[2022-03-09] MEDS: Ferrous Sulfate 324 MG TABLET.DR PO ×2 (11:30→19:55)
[2022-03-09] MEDS: Atorvastatin Calcium 40 MG TABLET PO (11:30)
[2022-03-09] MEDS: Divalproex Sodium ER 500 MG TAB.ER.24H PO (11:30)
[2022-03-09] MEDS: Furosemide 40 MG TABLET PO ×2 (11:31→17:42)
[2022-03-09] MEDS: metFORMIN HCl 500 MG TABLET PO ×2 (11:31→17:42)
[2022-03-09] MEDS: SITagliptin Phosphate 100 MG TABLET PO (11:31)
--- NOTE | 2022-03-09 14:36 | P.PNIM_ITS ---
Subjective Subjective Date of Service: 03/09/22 Interval History: seen and examined this morning Follow-up, awaiting placement Frustrated this morning, does not want to talk, does not want anyone coming in his room. Not allowing lab draws. Unable to obtain ROS this patient not willing to converse Physical Exam Vital Signs: Vital Signs: Last Vital Signs Temp 98.1 F 03/09/22 06:59 Pulse 72 03/09/22 06:59 Resp 18 03/09/22 06:59 BP 103/70 03/09/22 06:59 Pulse Ox 90 L 03/09/22 06:59 O2 Del Method 03/09/22 06:59 O2 Flow Rate 2 02/16/22 07:18 FiO2 94 02/13/22 15:38 BMI result Body Mass Index 21.8 Const: Other: Argumentative, frustrated General: comfortable, no acute distress, alert and awake Nutritional Appearance: average body habitus Resp: Effort & Inspection: normal respiratory effort, able to speak in complete sentences and not tachypneic Auscultation: clear to auscultation bilaterally Cardio: Rate: regular rate Heart sounds: S1 normal heart sound present and S2 normal heart sound present GI: Palpation (GI): Soft to palpation and nontender Extrem: General: Yes no pedal edema Objective Data Active Medications Acetaminophen (Acetaminophen 325 Mg Tablet) 650 mg PO Q6H PRN PRN Reason: Pain, Mild (Pain Scale 1-3) Atorvastatin Calcium (Atorvastatin Calcium 40 Mg Tablet) 40 mg PO DAILY [facility] Last Admin: 03/09/22 11:30 Dose: 40 mg Documented By: LUCILA Dextrose (Dextrose 50 % 25 Gm/50 Ml Syringe) 25 gm IVPUSH Q15M PRN; Protocol PRN Reason: per Hypoglycemia Standing Ord. Divalproex Sodium (Divalproex Sodium Er 250 Mg Tab.Er.24h) 250 mg PO DAILY@1700 [facility] Last Admin: 03/08/22 17:01 Dose: 250 mg Documented By: LUCILA Divalproex Sodium (Divalproex Sodium Er 500 Mg Tab.Er.24h) 500 mg PO DAILY [facility] Last Admin: 03/09/22 11:30 Dose: 500 mg Documented By: LUCILA Enoxaparin Sodium (Enoxaparin Sodium 40 Mg/0.4 Ml Syringe) 40 mg SUBCUT Q24H [facility] Last Admin: 03/08/22 20:19 Dose: 40 mg Documented By: ANA Ferrous Sulfate (Ferrous Sulfate 324 Mg Tablet.Dr) 324 mg PO BID [facility] Last Admin: 03/09/22 11:30 Dose: 324 mg Documented By: LUCILA Fluticasone Propionate (Fluticasone Propionate Nasal 16 Gm [place]) 1 spray NOSTRIL-B BID [facility] Last Admin: 03/09/22 08:59 Dose: Not Given Documented By: LUCILA Non-Admin Reason: Patient Refused Furosemide (Furosemide 40 Mg Tablet) 40 mg PO BID@0900,1800 [facility]; Protocol Last Admin: 03/09/22 11:31 Dose: 40 mg Documented By: LUCILA Glucose (Glucose Gel 15 Gm Gel..Gram.) 15 gm PO Q15M PRN; Protocol PRN Reason: per Hypoglycemia Standing Ord. Haloperidol (Haloperidol 5 Mg Tablet) 10 mg PO BID [facility] Last Admin: 03/09/22 11:30 Dose: 10 mg Documented By: LUCILA Insulin Glargine (Insulin Glargine,Hum.Rec.Anlog 100 Unit/Ml 10 Ml Vial) 10 unit SUBCUT BEDTIME [facility] Last Admin: 03/08/22 20:19 Dose: 10 unit Documented By: ANA Insulin Human Lispro (Insulin Lispro 100 Unit/Ml 3 Ml Vial) 0 unit SUBCUT QIDACHS [facility]; Protocol Last Admin: 03/09/22 11:35 Dose: Not Given Documented By: LUCILA Non-Admin Reason: No Insulin Coverage Melatonin (Melatonin 3 Mg Tablet) 6 mg PO BEDTIME PRN PRN Reason: Insomnia Last Admin: 03/08/22 20:19 Dose: 6 mg Documented By: ANA Metformin HCl (Metformin Hcl 500 Mg Tablet) 500 mg PO BIDWM [facility] Last Admin: 03/09/22 11:31 Dose: 500 mg Documented By: LUCILA Neomycin/Polymyxin/Hydrocortisone (Neomycin/Polymyxin/Hc Otic Melanie 10 Ml Drpbtl) 3 drop EAR-RIGHT QID [facility] Last Admin: 03/09/22 11:35 Dose: Not Given Documented By: LUCILA Non-Admin Reason: Patient Refused Olanzapine (Olanzapine Odt 10 Mg Tab.Rapdis) 5 mg TRANSLINGU BID PRN PRN Reason: agitation, psychosis Last Admin: 02/09/22 14:45 Dose: 5 mg Documented By: CIRO Omeprazole (Omeprazole 20 Mg [place].) 20 mg PO DAILY@0630 [facility] Last Admin: 03/09/22 06:35 Dose: Not Given Documented By: ANA Non-Admin Reason: Patient Refused Senna (Sennosides 8.6 Mg Tablet) 17.2 mg PO BEDTIME PRN PRN Reason: Constipation Sildenafil Citrate (Sildenafil Citrate 20 Mg Tablet) 20 mg PO TID [facility] Last Admin: 03/09/22 11:30 Dose: 20 mg Documented By: LUCILA Sitagliptin Phosphate (Sitagliptin Phosphate 100 Mg Tablet) 100 mg PO DAILY [facility] Last Admin: 03/09/22 11:31 Dose: 100 mg Documented By: LUCILA Sodium Chloride (0.9 % Sodium Chloride Flush 3 Ml Syringe) 3 ml IVFLUSH QSHIFT [facility] Last Admin: 03/09/22 07:02 Dose: Not Given Documented By: LUCILA Non-Admin Reason: No Access Labs CBC & Chem 7: 01/16/22 05:35 03/01/22 16:01 Labs: Laboratory Results - last 24 hr 03/08/22 03/08/22 03/09/22 15:46 19:28 06:57 POC Glucose 138 H 163 H 123 H 03/09/22 10:57 POC Glucose 127 H Assessment and Plan (1) Schizo affective schizophrenia: Status: Acute (2) Pulmonary hypertension: Status: Acute Plan 61 yo M from detention resident with schizophrenia, DM2, possible COPD/asthma [not formally diagnosed], p/w hypoxia + dyspnea found to have severe pulmonary HTN/R-sided HF. no change in care today, still awaiting placement #pulmonary HTN # R-sided HF continue sildenafil as ordered by Pulmonology continue PO furosemide outpt f/u with Pulm with consideration of R-sided cath #COPD/asthma, provisional diagnosis outpt PFTs continue nebs completed a course of steroids and doxy wears O2 off and on, but is always above 90 #DM2 basal/bolus insulin sitagliptin, metformin # schizoaffective disorder no behavioral issues at this time? continue VPA, haloperidol seen by psych, added prn meds? # HLD continue statin? # GERD continue PPI # VTE ppx LMWH # dispo: cannot go back to Shelter, plan to dc to LTC, HCP invoked, awaiting bed ? Need for inpatient stay: pending safe dispo to LTC when bed available; despite his insistence, he cannot go back to the detention Has Med treatment plan NOT Garcia order - could give IM Haldol if refuses PO Quality Stroke Does the patient have a stroke diagnosis?: No VTE Prior VTE?: No VTE Risk Level:: Medical - moderate - high VTE Device Contraindication: Treatment Not Indicated VTE Drug Contraindication: N/A - Med Ordered
--- NOTE | 2022-03-09 14:55 | MHC.CM.PN ---
EMR REVIEWED, PT DECLINING ALL MEDS TODAY, CM HAS STILL NOT RECEIVED ANY BED OFFERS OR RECEIVED A [facility], REFERRAL UPDATED, CM WILL CONT TO FOLLOW.
[2022-03-09 15:54] VITALS: BP 93/59; PULSE 68; RESP 17; TEMP 36.4; O2SAT 98
[2022-03-09 16:17] LABS: Glucose, Whole Blood 126 mg/dL (60-115)
[2022-03-09] MEDS: Divalproex Sodium ER 250 MG TAB.ER.24H PO (17:42)
[2022-03-09] MEDS: Melatonin 3 MG TABLET 6 MG PO (19:55)
[2022-03-09] MEDS: NeoMYCIN/Polymyxin/HC Otic Sus 10 ML DRPBTL 3 DROP EAR-RIGHT (19:57)
[2022-03-09] MEDS: Insulin Glargine,Hum.rec.anlog 100 UNIT/ML 10 ML VIAL 10 UNIT SUBCUT (20:04)
[2022-03-09] MEDS: Insulin Lispro 100 UNIT/ML 3 ML VIAL SUBCUT (20:04)
[2022-03-09 20:07] LABS: Glucose, Whole Blood 221 mg/dL (60-115)
[2022-03-10] VITALS: BP 95/61; PULSE 72; RESP 16; TEMP 36.3; O2SAT 96
[2022-03-10 06:44] LABS: Anion Gap 15 (12-20); Blood Urea Nitrogen 22 mg/dL (9-16); Calcium 8.6 mg/dL (8.4-10.2); Carbon Dioxide 28 mmol/L (22-29); Chloride 102 mmol/L (96-108); Creatinine Clr Calc Pharmacy 87.8; Estimated Glomerular Filt Rate > 60; Glucose Random 120 mg/dL (60-115); Potassium 4.2 mmol/L (3.3-5.1); Sodium 141 mmol/L (135-145)
--- NOTE | 2022-03-10 09:20 | P.PNIM_ITS ---
Subjective Subjective Date of Service: 03/10/22 Interval History: seen and examined this morning Follow-up, awaiting placement Frustrated this morning, Frustrated doens't want sugar check and doesn't to take meds, wants to be discharged Review of Systems no sob no fever Physical Exam 2 Vital Signs: Vital Signs: Last Vital Signs Temp 97.4 F 03/10/22 00:00 Pulse 72 03/10/22 00:00 Resp 16 03/10/22 00:00 BP 95/61 03/10/22 00:00 Pulse Ox 96 03/10/22 00:00 O2 Del Method 03/10/22 00:00 O2 Flow Rate 2 02/16/22 07:18 FiO2 94 02/13/22 15:38 BMI result Body Mass Index 21.8 Const: Other: General: AO X 2, no acute distress Resp: CTA bilateral CVS: S1,S2,RRR GI: +BS, NT, no distention Skin: No rash Neuro: motor grossly intact Psych: flat affect Objective Data Active Medications Acetaminophen (Acetaminophen 325 Mg Tablet) 650 mg PO Q6H PRN PRN Reason: Pain, Mild (Pain Scale 1-3) Atorvastatin Calcium (Atorvastatin Calcium 40 Mg Tablet) 40 mg PO DAILY [facility] Last Admin: 03/09/22 11:30 Dose: 40 mg Documented By: LUCILA Dextrose (Dextrose 50 % 25 Gm/50 Ml Syringe) 25 gm IVPUSH Q15M PRN; Protocol PRN Reason: per Hypoglycemia Standing Ord. Divalproex Sodium (Divalproex Sodium Er 250 Mg Tab.Er.24h) 250 mg PO DAILY@1700 [facility] Last Admin: 03/09/22 17:42 Dose: 250 mg Documented By: LUCILA Divalproex Sodium (Divalproex Sodium Er 500 Mg Tab.Er.24h) 500 mg PO DAILY [facility] Last Admin: 03/09/22 11:30 Dose: 500 mg Documented By: LUCILA Enoxaparin Sodium (Enoxaparin Sodium 40 Mg/0.4 Ml Syringe) 40 mg SUBCUT Q24H [facility] Last Admin: 03/09/22 19:59 Dose: Not Given Documented By: ANA Non-Admin Reason: Patient Refused Ferrous Sulfate (Ferrous Sulfate 324 Mg Tablet.) 324 mg PO BID [facility] Last Admin: 03/09/22 19:55 Dose: 324 mg Documented By: ANA Fluticasone Propionate (Fluticasone Propionate Nasal 16 Gm [place]) 1 spray NOSTRIL-B BID [facility] Last Admin: 03/09/22 20:34 Dose: Not Given Documented By: ANA Non-Admin Reason: Patient Refused Furosemide (Furosemide 40 Mg Tablet) 40 mg PO BID@0900,1800 [facility]; Protocol Last Admin: 03/09/22 17:42 Dose: 40 mg Documented By: LUCILA Glucose (Glucose Gel 15 Gm Gel..Gram.) 15 gm PO Q15M PRN; Protocol PRN Reason: per Hypoglycemia Standing Ord. Haloperidol (Haloperidol 5 Mg Tablet) 10 mg PO BID [facility] Last Admin: 03/09/22 19:55 Dose: 10 mg Documented By: ANA Insulin Glargine (Insulin Glargine,Hum.Rec.Anlog 100 Unit/Ml 10 Ml Vial) 10 unit SUBCUT BEDTIME [facility] Last Admin: 03/09/22 20:04 Dose: 10 unit Documented By: ANA Insulin Human Lispro (Insulin Lispro 100 Unit/Ml 3 Ml Vial) 0 unit SUBCUT QIDACHS [facility]; Protocol Last Admin: 03/10/22 08:26 Dose: Not Given Documented By: MARK Non-Admin Reason: Patient Refused Melatonin (Melatonin 3 Mg Tablet) 6 mg PO BEDTIME PRN PRN Reason: Insomnia Last Admin: 03/09/22 19:55 Dose: 6 mg Documented By: ANA Metformin HCl (Metformin Hcl 500 Mg Tablet) 500 mg PO BIDWM [facility] Last Admin: 03/09/22 17:42 Dose: 500 mg Documented By: LUCILA Neomycin/Polymyxin/Hydrocortisone (Neomycin/Polymyxin/Hc Otic Melanie 10 Ml Drpbtl) 3 drop EAR-RIGHT QID [facility] Last Admin: 03/09/22 19:57 Dose: 3 drop Documented By: ANA Olanzapine (Olanzapine Odt 10 Mg Tab.Rapdis) 5 mg TRANSLINGU BID PRN PRN Reason: agitation, psychosis Last Admin: 02/09/22 14:45 Dose: 5 mg Documented By: CIRO Omeprazole (Omeprazole 20 Mg Capsule.Dr) 20 mg PO DAILY@0630 [facility] Last Admin: 03/10/22 06:10 Dose: Not Given Documented By: ANA Non-Admin Reason: Patient Refused Senna (Sennosides 8.6 Mg Tablet) 17.2 mg PO BEDTIME PRN PRN Reason: Constipation Sildenafil Citrate (Sildenafil Citrate 20 Mg Tablet) 20 mg PO TID [facility] Last Admin: 03/09/22 19:55 Dose: 20 mg Documented By: ANA Sitagliptin Phosphate (Sitagliptin Phosphate 100 Mg Tablet) 100 mg PO DAILY [facility] Last Admin: 03/09/22 11:31 Dose: 100 mg Documented By: LUCILA Sodium Chloride (0.9 % Sodium Chloride Flush 3 Ml Syringe) 3 ml IVFLUSH QSHIFT [facility] Last Admin: 03/10/22 08:26 Dose: Not Given Documented By: MARK Non-Admin Reason: No Access Labs CBC & Chem 7: 01/16/22 05:35 03/10/22 06:08 Labs: Laboratory Results - last 24 hr 03/09/22 03/09/22 03/09/22 10:57 15:58 19:59 Anion Gap Estim Creat Clear Calc Estimated GFR POC Glucose 127 H 126 H 221 H Random Glucose Calcium 03/10/22 06:08 Anion Gap 15 Estim Creat Clear Calc 87.8 Estimated GFR > 60 POC Glucose Random Glucose 120 H Calcium 8.6 Assessment and Plan (1) Schizo affective schizophrenia: Status: Acute (2) Pulmonary hypertension: Status: Acute Plan 61-year-old male with a past medical history of schizophrenia, CHF, asthma/COPD, diabetes, hyperlipidemia presented from the residential with a chief complaint of acute hypoxia. Noted to have following conditions Acute hypoxic respiratory failure on presentation, d/t : In the setting of C OPD/asthma/CHF. Patient currently on supplemental oxygen. Not in respiratory distress. Supportive care. Acute asthma/COPD: Patient has no formal diagnosis. Patient is supposed to be following up with pulmonology as outpatient. Patient had similar presentation in December 2021. Recommended outpatient pulmonary function test. Continue Solu-Medrol 40 mg IV DuoNeb standing and p.r.n. Doxycycline Pulmonology consult CHF: No echo noted in the records. Will obtain echocardiogram. Telemetry Daily weights and I's and O's Patient given 40 mg IV Lasix x1. Continue home Lasix 40 mg b.i.d.. Cardiology follow-up Troponin 12.5. EKG nonischemic. Repeat troponin pending. Diabetes/hyperglycemia: Patient has mildly hyperglycemic. No elevated anion gap. Hold p.o. medications. Insulin sliding scale plus Lantus 10 units. History of schizophrenia: Continue home Depakote, haloperidol DVT prophylaxis: Lovenox Code status: Full code. Confirmed with the patient's guardian Yajaira Healthcare proxy was invoked in the ER. Of note: Patient does not wanted to be admitted initially in the ER. ER team invoked healthcare proxy and initially Healthcare proxy also wanted the patient to be sent back to the residential. But patient was desaturating on ambulation; Later with repeat discussion by the ER team with the healthcare proxy; decision was made to admit the patient for further management. Quality Stroke Does the patient have a stroke diagnosis?: No VTE Prior VTE?: No VTE Risk Level:: Medical - moderate - high VTE Device Contraindication: Treatment Not Indicated VTE Drug Contraindication: N/A - Med Ordered
[2022-03-10 12:25] VITALS: BP 96/59; PULSE 70; RESP 18; TEMP 36.4; O2SAT 93
[2022-03-10 12:31] LABS: Glucose, Whole Blood 163 mg/dL (60-115)
[2022-03-10] MEDS: Sildenafil Citrate 20 MG TABLET PO ×3 (12:33→20:33)
[2022-03-10] MEDS: Insulin Lispro 100 UNIT/ML 3 ML VIAL SUBCUT (12:33)
[2022-03-10] MEDS: Divalproex Sodium ER 500 MG TAB.ER.24H PO (12:33)
[2022-03-10] MEDS: Atorvastatin Calcium 40 MG TABLET PO (12:34)
[2022-03-10] MEDS: Ferrous Sulfate 324 MG TABLET.DR PO ×2 (12:34→20:33)
[2022-03-10] MEDS: SITagliptin Phosphate 100 MG TABLET PO (12:34)
[2022-03-10] MEDS: HaloperidoL 5 MG TABLET 10 MG PO ×2 (12:34→20:33)
[2022-03-10 16:00] VITALS: BP 101/61; PULSE 77; RESP 18; TEMP 37; O2SAT 94
[2022-03-10] MEDS: metFORMIN HCl 500 MG TABLET PO (17:38)
[2022-03-10] MEDS: Furosemide 40 MG TABLET PO (17:38)
[2022-03-10] MEDS: Divalproex Sodium ER 250 MG TAB.ER.24H PO (17:38)
[2022-03-10 20:10] LABS: Glucose, Whole Blood 184 mg/dL (60-115)
[2022-03-11 08:00] VITALS: BP 110/76; PULSE 71; RESP 18; TEMP 36.1
[2022-03-11 08:03] LABS: Glucose, Whole Blood 149 mg/dL (60-115)
[2022-03-11] MEDS: Furosemide 40 MG TABLET PO ×2 (09:08→17:15)
[2022-03-11] MEDS: metFORMIN HCl 500 MG TABLET PO ×2 (09:08→17:15)
[2022-03-11] MEDS: SITagliptin Phosphate 100 MG TABLET PO (09:08)
[2022-03-11] MEDS: Divalproex Sodium ER 500 MG TAB.ER.24H PO (09:08)
[2022-03-11] MEDS: Sildenafil Citrate 20 MG TABLET PO ×3 (09:08→20:14)
[2022-03-11] MEDS: Atorvastatin Calcium 40 MG TABLET PO (09:08)
[2022-03-11] MEDS: HaloperidoL 5 MG TABLET 10 MG PO ×2 (09:08→20:14)
[2022-03-11] MEDS: Ferrous Sulfate 324 MG TABLET.DR PO ×2 (09:10→20:14)
[2022-03-11 11:35] LABS: Glucose, Whole Blood 158 mg/dL (60-115)
[2022-03-11] MEDS: Insulin Lispro 100 UNIT/ML 3 ML VIAL SUBCUT ×2 (12:12→17:15)
[2022-03-11 15:55] VITALS: BP 117/73; PULSE 71; RESP 16; TEMP 36.1; O2SAT 93
[2022-03-11 16:04] LABS: Glucose, Whole Blood 216 mg/dL (60-115)
[2022-03-11] MEDS: Divalproex Sodium ER 250 MG TAB.ER.24H PO (17:15)
[2022-03-11] MEDS: Insulin Glargine,Hum.rec.anlog 100 UNIT/ML 10 ML VIAL 10 UNIT SUBCUT (20:14)
[2022-03-11] MEDS: Melatonin 3 MG TABLET 6 MG PO (20:15)
[2022-03-11 20:17] LABS: Glucose, Whole Blood 104 mg/dL (60-115)
[2022-03-11 23:59] VITALS: BP 108/74; PULSE 72; RESP 18; TEMP 36.4; O2SAT 95
[2022-03-12 07:20] VITALS: BP 99/62; PULSE 74; RESP 18; TEMP 36.3; O2SAT 95
[2022-03-12 07:29] LABS: Glucose, Whole Blood 118 mg/dL (60-115)
[2022-03-12] MEDS: Ferrous Sulfate 324 MG TABLET.DR PO ×2 (09:46→20:30)
[2022-03-12] MEDS: Divalproex Sodium ER 500 MG TAB.ER.24H PO (09:46)
[2022-03-12] MEDS: metFORMIN HCl 500 MG TABLET PO ×2 (09:46→16:27)
[2022-03-12] MEDS: HaloperidoL 5 MG TABLET 10 MG PO ×2 (09:46→20:30)
[2022-03-12] MEDS: Sildenafil Citrate 20 MG TABLET PO ×3 (09:46→20:30)
[2022-03-12] MEDS: Atorvastatin Calcium 40 MG TABLET PO (09:46)
[2022-03-12] MEDS: Furosemide 40 MG TABLET PO ×2 (09:46→16:26)
[2022-03-12] MEDS: SITagliptin Phosphate 100 MG TABLET PO (09:47)
--- NOTE | 2022-03-12 10:09 | HO.PM.IMPN ---
Subjective Subjective Date of Service: 03/12/22 Interval History: seen and examined this morning Follow-up, awaiting placement more cooperative and participatory this morning, no sob. Still asking when he's leaving Review of Systems no sob no fever Physical Exam Vital Signs: Vital Signs: Last Vital Signs Temp 97.4 F 03/12/22 07:20 Pulse 74 03/12/22 07:20 Resp 18 03/12/22 07:20 BP 99/62 03/12/22 07:20 Pulse Ox 95 03/12/22 07:20 O2 Del Method 03/12/22 07:20 O2 Flow Rate 2 02/16/22 07:18 FiO2 94 02/13/22 15:38 BMI result Body Mass Index 21.8 Const: Other: General: AO X 2, no acute distress Resp: CTA bilateral CVS: S1,S2,RRR GI: +BS, NT, no distention Skin: No rash Neuro: motor grossly intact Psych: flat affect Objective Data Active Medications Acetaminophen (Acetaminophen 325 Mg Tablet) 650 mg PO Q6H PRN PRN Reason: Pain, Mild (Pain Scale 1-3) Atorvastatin Calcium (Atorvastatin Calcium 40 Mg Tablet) 40 mg PO DAILY [facility] Last Admin: 03/12/22 09:46 Dose: 40 mg Documented By: SHAKEEL Dextrose (Dextrose 50 % 25 Gm/50 Ml Syringe) 25 gm IVPUSH Q15M PRN; Protocol PRN Reason: per Hypoglycemia Standing Ord. Divalproex Sodium (Divalproex Sodium Er 250 Mg Tab.Er.24h) 250 mg PO DAILY@1700 [facility] Last Admin: 03/11/22 17:15 Dose: 250 mg Documented By: MARK Divalproex Sodium (Divalproex Sodium Er 500 Mg Tab.Er.24h) 500 mg PO DAILY [facility] Last Admin: 03/12/22 09:46 Dose: 500 mg Documented By: SHAKEEL Enoxaparin Sodium (Enoxaparin Sodium 40 Mg/0.4 Ml Syringe) 40 mg SUBCUT Q24H [facility] Last Admin: 03/11/22 20:18 Dose: Not Given Documented By: EMELINA Non-Admin Reason: Patient Refused Ferrous Sulfate (Ferrous Sulfate 324 Mg Tablet.) 324 mg PO BID [facility] Last Admin: 03/12/22 09:46 Dose: 324 mg Documented By: SHAKEEL Fluticasone Propionate (Fluticasone Propionate Nasal 16 Gm [place]) 1 spray NOSTRIL-B BID [facility] Last Admin: 03/12/22 09:47 Dose: Not Given Documented By: SHAKEEL Non-Admin Reason: Med Not Available Furosemide (Furosemide 40 Mg Tablet) 40 mg PO BID@0900,1800 [facility]; Protocol Last Admin: 03/12/22 09:46 Dose: 40 mg Documented By: SHAKEEL Glucose (Glucose Gel 15 Gm Gel..Gram.) 15 gm PO Q15M PRN; Protocol PRN Reason: per Hypoglycemia Standing Ord. Haloperidol (Haloperidol 5 Mg Tablet) 10 mg PO BID [facility] Last Admin: 03/12/22 09:46 Dose: 10 mg Documented By: SHAKEEL Insulin Glargine (Insulin Glargine,Hum.Rec.Anlog 100 Unit/Ml 10 Ml Vial) 10 unit SUBCUT BEDTIME [facility] Last Admin: 03/11/22 20:14 Dose: 10 unit Documented By: EMELINA Insulin Human Lispro (Insulin Lispro 100 Unit/Ml 3 Ml Vial) 0 unit SUBCUT QIDACHS [facility]; Protocol Last Admin: 03/12/22 07:37 Dose: Not Given Documented By: SHAKEEL Non-Admin Reason: No Insulin Coverage Melatonin (Melatonin 3 Mg Tablet) 6 mg PO BEDTIME PRN PRN Reason: Insomnia Last Admin: 03/11/22 20:15 Dose: 6 mg Documented By: EMELINA Metformin HCl (Metformin Hcl 500 Mg Tablet) 500 mg PO BIDWM [facility] Last Admin: 03/12/22 09:46 Dose: 500 mg Documented By: SHAKEEL Neomycin/Polymyxin/Hydrocortisone (Neomycin/Polymyxin/Hc Otic Melanie 10 Ml Drpbtl) 3 drop EAR-RIGHT QID [facility] Last Admin: 03/12/22 09:47 Dose: Not Given Documented By: SHAKEEL Non-Admin Reason: Med Not Available Olanzapine (Olanzapine Odt 10 Mg Tab.Rapdis) 5 mg TRANSLINGU BID PRN PRN Reason: agitation, psychosis Last Admin: 02/09/22 14:45 Dose: 5 mg Documented By: CIRO Omeprazole (Omeprazole 20 Mg Capsule.Dr) 20 mg PO DAILY@0630 [facility] Last Admin: 03/12/22 05:33 Dose: Not Given Documented By: EMELINA Non-Admin Reason: Patient Refused Senna (Sennosides 8.6 Mg Tablet) 17.2 mg PO BEDTIME PRN PRN Reason: Constipation Sildenafil Citrate (Sildenafil Citrate 20 Mg Tablet) 20 mg PO TID [facility] Last Admin: 03/12/22 09:46 Dose: 20 mg Documented By: SHAKEEL Sitagliptin Phosphate (Sitagliptin Phosphate 100 Mg Tablet) 100 mg PO DAILY [facility] Last Admin: 03/12/22 09:47 Dose: 100 mg Documented By: SHAKEEL Sodium Chloride (0.9 % Sodium Chloride Flush 3 Ml Syringe) 3 ml IVFLUSH QSHIFT [facility] Last Admin: 03/12/22 09:51 Dose: Not Given Documented By: SHAKEEL Non-Admin Reason: No Access Labs CBC & Chem 7: 01/16/22 05:35 03/10/22 06:08 Labs: Laboratory Results - last 24 hr 03/11/22 03/11/22 03/11/22 11:30 15:58 20:11 POC Glucose 158 H 216 H 104 03/12/22 07:23 POC Glucose 118 H Assessment and Plan (1) Schizo affective schizophrenia: Status: Acute (2) Pulmonary hypertension: Status: Acute Plan 61-year-old male with a past medical history of schizophrenia, CHF, asthma/COPD, diabetes, hyperlipidemia presented from the senior care with a chief complaint of acute hypoxia. Noted to have following conditions Acute hypoxic respiratory failure on presentation due to COPD/asthma/CHF. Patient currently on supplemental oxygen. Not in respiratory distress. Supportive care and addres underlying issues below Acute asthma/COPD: Patient has no formal diagnosis. Patient is supposed to be following up with pulmonology as outpatient. Patient had similar presentation in December 2021. continue bronchodilators No indication for steroid at this time Pulmonary HTN--Viagra, outpatient follow CHF: EF 55 to 60 no acu te exacerbation continue oral Lasix 40 bid Diabetes/hyperglycemia: blood sugars in good range continue lantus, SSI, metformin and Sitagliptin History of schizophrenia: Continue home Depakote, haloperidol DVT prophylaxis: Lovenox Code status: Full code. Confirmed with the patient's guardian [facility] invoked Lack capacity for medical decision, awaiting permanent placement Quality Stroke Does the patient have a stroke diagnosis?: No VTE Prior VTE?: No VTE Risk Level:: Medical - moderate - high VTE Device Contraindication: Treatment Not Indicated VTE Drug Contraindication: N/A - Med Ordered
--- NOTE | 2022-03-12 14:46 | MHC.CM.PN ---
CM continues to search for bed for patient. Received call from Idalia @ [facility] and provided update.
[2022-03-12 15:48] VITALS: BP 96/57; PULSE 70; RESP 18; TEMP 37.2; O2SAT 92
[2022-03-12] MEDS: Divalproex Sodium ER 250 MG TAB.ER.24H PO (16:27)
[2022-03-12 16:46] LABS: Glucose, Whole Blood 121 mg/dL (60-115)
[2022-03-12 19:21] LABS: Glucose, Whole Blood 181 mg/dL (60-115)
[2022-03-12] MEDS: Insulin Glargine,Hum.rec.anlog 100 UNIT/ML 10 ML VIAL 10 UNIT SUBCUT (20:30)
[2022-03-12] MEDS: Melatonin 3 MG TABLET 6 MG PO (20:30)
[2022-03-13] VITALS: BP 112/70; PULSE 62; RESP 16; TEMP 36.5; O2SAT 95
[2022-03-13 07:22] VITALS: BP 101/68; PULSE 52; RESP 18; TEMP 36.1; O2SAT 97
[2022-03-13 07:46] LABS: Glucose, Whole Blood 119 mg/dL (60-115)
[2022-03-13] MEDS: Atorvastatin Calcium 40 MG TABLET PO (07:52)
[2022-03-13] MEDS: Furosemide 40 MG TABLET PO ×2 (07:52→16:27)
[2022-03-13] MEDS: Divalproex Sodium ER 500 MG TAB.ER.24H PO (07:52)
[2022-03-13] MEDS: metFORMIN HCl 500 MG TABLET PO ×2 (07:52→16:26)
[2022-03-13] MEDS: SITagliptin Phosphate 100 MG TABLET PO (07:52)
[2022-03-13] MEDS: HaloperidoL 5 MG TABLET 10 MG PO ×2 (07:52→20:22)
[2022-03-13] MEDS: Ferrous Sulfate 324 MG TABLET.DR PO ×2 (07:52→20:22)
[2022-03-13] MEDS: Sildenafil Citrate 20 MG TABLET PO ×3 (07:53→20:23)
--- NOTE | 2022-03-13 10:51 | P.PNIM_ITS ---
Subjective Subjective Date of Service: 03/13/22 Interval History: seen and examined this morning Follow-up, awaiting placement cooperative, took meds, no other complaint Review of Systems no sob no fever Physical Exam Vital Signs: Vital Signs: Last Vital Signs Temp 97.0 F 03/13/22 07:22 Pulse 52 03/13/22 07:22 Resp 18 03/13/22 07:22 BP 101/68 03/13/22 07:22 Pulse Ox 97 03/13/22 07:22 O2 Del Method 03/13/22 07:22 O2 Flow Rate 2 02/16/22 07:18 FiO2 94 02/13/22 15:38 BMI result Body Mass Index 21.8 Const: Other: General: AO X 2, no acute distress Resp: CTA bilateral CVS: S1,S2,RRR GI: +BS, NT, no distention Skin: No rash Neuro: motor grossly intact Psych: flat affect Objective Data Active Medications Acetaminophen (Acetaminophen 325 Mg Tablet) 650 mg PO Q6H PRN PRN Reason: Pain, Mild (Pain Scale 1-3) Atorvastatin Calcium (Atorvastatin Calcium 40 Mg Tablet) 40 mg PO DAILY [facility] Last Admin: 03/13/22 07:52 Dose: 40 mg Documented By: KEON Dextrose (Dextrose 50 % 25 Gm/50 Ml Syringe) 25 gm IVPUSH Q15M PRN; Protocol PRN Reason: per Hypoglycemia Standing Ord. Divalproex Sodium (Divalproex Sodium Er 250 Mg Tab.Er.24h) 250 mg PO DAILY@1700 [facility] Last Admin: 03/12/22 16:27 Dose: 250 mg Documented By: SHAKEEL Divalproex Sodium (Divalproex Sodium Er 500 Mg Tab.Er.24h) 500 mg PO DAILY [facility] Last Admin: 03/13/22 07:52 Dose: 500 mg Documented By: KEON Enoxaparin Sodium (Enoxaparin Sodium 40 Mg/0.4 Ml Syringe) 40 mg SUBCUT Q24H [facility] Last Admin: 03/12/22 20:29 Dose: Not Given Documented By: EMELINA Non-Admin Reason: Patient Refused Ferrous Sulfate (Ferrous Sulfate 324 Mg Tablet.) 324 mg PO BID [facility] Last Admin: 03/13/22 07:52 Dose: 324 mg Documented By: KEON Fluticasone Propionate (Fluticasone Propionate Nasal 16 Gm [place]) 1 spray NOSTRIL-B BID [facility] Last Admin: 03/13/22 07:58 Dose: Not Given Documented By: KEON Non-Admin Reason: Patient Refused Furosemide (Furosemide 40 Mg Tablet) 40 mg PO BID@0900,1800 [facility]; Protocol Last Admin: 03/13/22 07:52 Dose: 40 mg Documented By: KEON Glucose (Glucose Gel 15 Gm Gel..Gram.) 15 gm PO Q15M PRN; Protocol PRN Reason: per Hypoglycemia Standing Ord. Haloperidol (Haloperidol 5 Mg Tablet) 10 mg PO BID [facility] Last Admin: 03/13/22 07:52 Dose: 10 mg Documented By: KEON Insulin Glargine (Insulin Glargine,Hum.Rec.Anlog 100 Unit/Ml 10 Ml Vial) 10 unit SUBCUT BEDTIME [facility] Last Admin: 03/12/22 20:30 Dose: 10 unit Documented By: EMELINA Insulin Human Lispro (Insulin Lispro 100 Unit/Ml 3 Ml Vial) 0 unit SUBCUT QIDACHS [facility]; Protocol Last Admin: 03/13/22 07:57 Dose: Not Given Documented By: KEON Non-Admin Reason: No Insulin Coverage Melatonin (Melatonin 3 Mg Tablet) 6 mg PO BEDTIME PRN PRN Reason: Insomnia Last Admin: 03/12/22 20:30 Dose: 6 mg Documented By: EMELINA Metformin HCl (Metformin Hcl 500 Mg Tablet) 500 mg PO BIDWM [facility] Last Admin: 03/13/22 07:52 Dose: 500 mg Documented By: KEON Neomycin/Polymyxin/Hydrocortisone (Neomycin/Polymyxin/Hc Otic Melanie 10 Ml Drpbtl) 3 drop EAR-RIGHT QID [facility] Last Admin: 03/13/22 06:32 Dose: Not Given Documented By: FREDO Non-Admin Reason: Patient Refused Olanzapine (Olanzapine Odt 10 Mg Tab.Rapdis) 5 mg TRANSLINGU BID PRN PRN Reason: agitation, psychosis Last Admin: 02/09/22 14:45 Dose: 5 mg Documented By: CIRO Omeprazole (Omeprazole 20 Mg Capsule.) 20 mg PO DAILY@0630 [facility] Last Admin: 03/13/22 05:36 Dose: Not Given Documented By: EMELINA Non-Admin Reason: Patient Refused Senna (Sennosides 8.6 Mg Tablet) 17.2 mg PO BEDTIME PRN PRN Reason: Constipation Sildenafil Citrate (Sildenafil Citrate 20 Mg Tablet) 20 mg PO TID [facility] Last Admin: 03/13/22 07:53 Dose: 20 mg Documented By: KEON Sitagliptin Phosphate (Sitagliptin Phosphate 100 Mg Tablet) 100 mg PO DAILY [facility] Last Admin: 03/13/22 07:52 Dose: 100 mg Documented By: KEON Sodium Chloride (0.9 % Sodium Chloride Flush 3 Ml Syringe) 3 ml IVFLUSH QSHIFT [facility] Last Admin: 03/13/22 06:32 Dose: Not Given Documented By: FREDO Non-Admin Reason: No Access Labs CBC & Chem 7: 01/16/22 05:35 03/10/22 06:08 Labs: Laboratory Results - last 24 hr 03/12/22 03/12/22 03/13/22 15:52 19:10 07:25 POC Glucose 121 H 181 H 119 H Assessment and Plan (1) Schizo affective schizophrenia: Status: Acute (2) Pulmonary hypertension: Status: Acute Plan 61-year-old male with a past medical history of schizophrenia, CHF, asthma/COPD, diabetes, hyperlipidemia presented from the shelter with a chief complaint of acute hypoxia. Noted to have following conditions essentially no chage from prior encounter Acute hypoxic respiratory failure on presentation due to COPD/asthma/CHF. Patient currently on supplemental oxygen. Not in respiratory distress. Supportive care and addres underlying issues below Acute asthma/COPD: Patient has no formal diagnosis. Patient is supposed to be following up with pulmonology as outpatient. Patient had similar presentation in December 2021. continue bronchodilators No indication for steroid at this time Pulmonary HTN--Viagra, outpatient follow CHF: EF 55 to 60 no acu te exacerbation continue oral Lasix 40 bid Diabetes/hyperglycemia: blood sugars in good range continue lantus, SSI, metformin and Sitagliptin History of schizophrenia: Continue home Depakote, haloperidol DVT prophylaxis: Lovenox Code status: Full code. Confirmed with the patient's guardian [facility] invoked Lack capacity for medical decision, awaiting permanent placement Quality Stroke Does the patient have a stroke diagnosis?: No VTE Prior VTE?: No VTE Risk Level:: Medical - moderate - high VTE Device Contraindication: Treatment Not Indicated VTE Drug Contraindication: N/A - Med Ordered
[2022-03-13 11:34] LABS: Glucose, Whole Blood 200 mg/dL (60-115)
[2022-03-13] MEDS: Insulin Lispro 100 UNIT/ML 3 ML VIAL SUBCUT (11:54)
[2022-03-13 15:30] VITALS: BP 98/59; PULSE 56; RESP 17; TEMP 36.8; O2SAT 93
[2022-03-13 15:57] LABS: Glucose, Whole Blood 109 mg/dL (60-115)
[2022-03-13] MEDS: Divalproex Sodium ER 250 MG TAB.ER.24H PO (16:26)
[2022-03-13 19:47] LABS: Glucose, Whole Blood 157 mg/dL (60-115)
[2022-03-13] MEDS: Insulin Glargine,Hum.rec.anlog 100 UNIT/ML 10 ML VIAL 10 UNIT SUBCUT (20:24)
[2022-03-13 23:35] VITALS: BP 97/63; PULSE 60; RESP 20; TEMP 36.8; O2SAT 95
[2022-03-14 07:05] VITALS: BP 106/69; PULSE 62; RESP 18; TEMP 36.2; O2SAT 92
[2022-03-14 07:10] LABS: Glucose, Whole Blood 105 mg/dL (60-115)
[2022-03-14] MEDS: HaloperidoL 5 MG TABLET 10 MG PO ×2 (07:47→19:58)
[2022-03-14] MEDS: Ferrous Sulfate 324 MG TABLET.DR PO ×2 (07:48→19:58)
[2022-03-14] MEDS: Omeprazole 20 MG CAPSULE.DR PO (07:48)
[2022-03-14] MEDS: Divalproex Sodium ER 500 MG TAB.ER.24H PO (07:48)
[2022-03-14] MEDS: Atorvastatin Calcium 40 MG TABLET PO (07:48)
[2022-03-14] MEDS: Sildenafil Citrate 20 MG TABLET PO ×3 (07:48→19:58)
[2022-03-14] MEDS: SITagliptin Phosphate 100 MG TABLET PO (07:48)
[2022-03-14] MEDS: metFORMIN HCl 500 MG TABLET PO ×2 (07:48→16:00)
[2022-03-14] MEDS: Furosemide 40 MG TABLET PO ×2 (07:48→16:00)
--- NOTE | 2022-03-14 10:09 | MHC.CM.PN ---
Cm met w/pt at bedside who is concerned about his discharge papers and placement issues, pt trying to think of places he can go and mentioned a boarding house where he used to live, pt could not recall name however it most likely is the [facility] in [place], kirill to meet w/pt again to let him know his guardian would not be agreeable to this placement. Pt is aware per our conversation placement will need to be approved by guardian before he is able to d/c. Pt cont's to be medically cleared for d/c once placement is obtained, cm will cont to update and follow referrals. Pt cont's to need a secure unit/facility per guardian.
[2022-03-14 10:58] LABS: Glucose, Whole Blood 123 mg/dL (60-115)
--- NOTE | 2022-03-14 11:23 | P.PNIM_ITS ---
Subjective Subjective Date of Service: 03/14/22 Interval History: seen and examined this morning Follow-up, awaiting placement He's been good the last couple days, taking meds and cooperative with care Review of Systems no sob no fever Physical Exam Vital Signs: Vital Signs: Last Vital Signs Temp 97.2 F 03/14/22 07:05 Pulse 62 03/14/22 07:05 Resp 18 03/14/22 07:05 BP 106/69 03/14/22 07:05 Pulse Ox 92 03/14/22 07:05 O2 Del Method 03/14/22 07:05 O2 Flow Rate 2 02/16/22 07:18 FiO2 94 02/13/22 15:38 BMI result Body Mass Index 21.8 Const: Other: General: AO X 2, no acute distress Resp: CTA bilateral CVS: S1,S2,RRR GI: +BS, NT, no distention Skin: No rash Neuro: motor grossly intact Psych: flat affect Objective Data Active Medications Acetaminophen (Acetaminophen 325 Mg Tablet) 650 mg PO Q6H PRN PRN Reason: Pain, Mild (Pain Scale 1-3) Atorvastatin Calcium (Atorvastatin Calcium 40 Mg Tablet) 40 mg PO DAILY [facility] Last Admin: 03/14/22 07:48 Dose: 40 mg Documented By: KEON Dextrose (Dextrose 50 % 25 Gm/50 Ml Syringe) 25 gm IVPUSH Q15M PRN; Protocol PRN Reason: per Hypoglycemia Standing Ord. Divalproex Sodium (Divalproex Sodium Er 250 Mg Tab.Er.24h) 250 mg PO DAILY@1700 [facility] Last Admin: 03/13/22 16:26 Dose: 250 mg Documented By: KEON Divalproex Sodium (Divalproex Sodium Er 500 Mg Tab.Er.24h) 500 mg PO DAILY [facility] Last Admin: 03/14/22 07:48 Dose: 500 mg Documented By: KEON Enoxaparin Sodium (Enoxaparin Sodium 40 Mg/0.4 Ml Syringe) 40 mg SUBCUT Q24H [facility] Last Admin: 03/13/22 20:12 Dose: Not Given Documented By: GENIE Non-Admin Reason: Patient Refused Ferrous Sulfate (Ferrous Sulfate 324 Mg Tablet.) 324 mg PO BID [facility] Last Admin: 03/14/22 07:48 Dose: 324 mg Documented By: KEON Fluticasone Propionate (Fluticasone Propionate Nasal 16 Gm [place]) 1 spray NOSTRIL-B BID [facility] Last Admin: 03/14/22 07:40 Dose: Not Given Documented By: KEON Non-Admin Reason: Patient Refused Furosemide (Furosemide 40 Mg Tablet) 40 mg PO BID@0900,1800 [facility]; Protocol Last Admin: 03/14/22 07:48 Dose: 40 mg Documented By: KEON Glucose (Glucose Gel 15 Gm Gel..Gram.) 15 gm PO Q15M PRN; Protocol PRN Reason: per Hypoglycemia Standing Ord. Haloperidol (Haloperidol 5 Mg Tablet) 10 mg PO BID [facility] Last Admin: 03/14/22 07:47 Dose: 10 mg Documented By: KEON Insulin Glargine (Insulin Glargine,Hum.Rec.Anlog 100 Unit/Ml 10 Ml Vial) 10 unit SUBCUT BEDTIME [facility] Last Admin: 03/13/22 20:24 Dose: 10 unit Documented By: GENIE Insulin Human Lispro (Insulin Lispro 100 Unit/Ml 3 Ml Vial) 0 unit SUBCUT QIDACHS [facility]; Protocol Last Admin: 03/14/22 07:24 Dose: Not Given Documented By: KEON Non-Admin Reason: No Insulin Coverage Melatonin (Melatonin 3 Mg Tablet) 6 mg PO BEDTIME PRN PRN Reason: Insomnia Last Admin: 03/12/22 20:30 Dose: 6 mg Documented By: EMELINA Metformin HCl (Metformin Hcl 500 Mg Tablet) 500 mg PO BIDWM [facility] Last Admin: 03/14/22 07:48 Dose: 500 mg Documented By: KEON Neomycin/Polymyxin/Hydrocortisone (Neomycin/Polymyxin/Hc Otic Melanie 10 Ml Drpbtl) 3 drop EAR-RIGHT QID [facility] Last Admin: 03/14/22 07:41 Dose: Not Given Documented By: KEON Non-Admin Reason: Patient Refused Olanzapine (Olanzapine Odt 10 Mg Tab.Rapdis) 5 mg TRANSLINGU BID PRN PRN Reason: agitation, psychosis Last Admin: 02/09/22 14:45 Dose: 5 mg Documented By: CIRO Omeprazole (Omeprazole 20 Mg Capsule.Dr) 20 mg PO DAILY@0630 [facility] Last Admin: 03/14/22 07:48 Dose: 20 mg Documented By: KEON Senna (Sennosides 8.6 Mg Tablet) 17.2 mg PO BEDTIME PRN PRN Reason: Constipation Sildenafil Citrate (Sildenafil Citrate 20 Mg Tablet) 20 mg PO TID [facility] Last Admin: 03/14/22 07:48 Dose: 20 mg Documented By: KEON Sitagliptin Phosphate (Sitagliptin Phosphate 100 Mg Tablet) 100 mg PO DAILY [facility] Last Admin: 03/14/22 07:48 Dose: 100 mg Documented By: KEON Sodium Chloride (0.9 % Sodium Chloride Flush 3 Ml Syringe) 3 ml IVFLUSH QSHIFT [facility] Last Admin: 03/14/22 07:25 Dose: Not Given Documented By: KEON Non-Admin Reason: No Access Labs CBC & Chem 7: 01/16/22 05:35 03/10/22 06:08 Labs: Laboratory Results - last 24 hr 03/13/22 03/13/22 03/13/22 11:30 15:32 19:26 POC Glucose 200 H 109 157 H 03/14/22 03/14/22 07:02 10:54 POC Glucose 105 123 H Assessment and Plan (1) Schizo affective schizophrenia: Status: Acute (2) Pulmonary hypertension: Status: Acute Plan 61-year-old male with a past medical history of schizophrenia, CHF, asthma/COPD, diabetes, hyperlipidemia presented from the residential with a chief complaint of acute hypoxia. Noted to have following conditions essentially no chage from prior encounter Acute hypoxic respiratory failure on presentation due to COPD/asthma/CHF. Patient currently on supplemental oxygen. Not in respiratory distress. Supportive care and addres underlying issues below Acute asthma/COPD: Patient has no formal diagnosis. Patient is supposed to be following up with pulmonology as outpatient. Patient had similar presentation in December 2021. continue bronchodilators No indication for steroid at this time Pulmonary HTN--Viagra, outpatient follow CHF: EF 55 to 60 no acu te exacerbation continue oral Lasix 40 bid Diabetes/hyperglycemia: blood sugars in good range continue lantus, SSI, metformin and Sitagliptin History of schizophrenia: Continue home Depakote, haloperidol DVT prophylaxis: Lovenox Code status: Full code. Confirmed with the patient's guardian [facility] invoked Lack capacity for medical decision, awaiting permanent placement Should be encouraged to walk more in Quality Stroke Does the patient have a stroke diagnosis?: No VTE Prior VTE?: No VTE Risk Level:: Medical - moderate - high VTE Device Contraindication: Treatment Not Indicated VTE Drug Contraindication: N/A - Med Ordered
[2022-03-14 15:54] VITALS: BP 102/60; PULSE 79; RESP 22; TEMP 36.5; O2SAT 96
[2022-03-14] MEDS: Divalproex Sodium ER 250 MG TAB.ER.24H PO (16:00)
[2022-03-14 16:01] LABS: Glucose, Whole Blood 124 mg/dL (60-115)
[2022-03-14 19:28] LABS: Glucose, Whole Blood 149 mg/dL (60-115)
[2022-03-14] MEDS: Insulin Glargine,Hum.rec.anlog 100 UNIT/ML 10 ML VIAL 10 UNIT SUBCUT (19:58)
[2022-03-15 07:05] VITALS: BP 105/64; PULSE 61; RESP 18; TEMP 36.3; O2SAT 94
[2022-03-15 07:29] LABS: Glucose, Whole Blood 108 mg/dL (60-115)
[2022-03-15] MEDS: metFORMIN HCl 500 MG TABLET PO ×2 (08:33→16:23)
[2022-03-15] MEDS: SITagliptin Phosphate 100 MG TABLET PO (08:33)
[2022-03-15] MEDS: Omeprazole 20 MG CAPSULE.DR PO (08:33)
[2022-03-15] MEDS: Sildenafil Citrate 20 MG TABLET PO ×3 (08:33→19:47)
[2022-03-15] MEDS: Atorvastatin Calcium 40 MG TABLET PO (08:34)
[2022-03-15] MEDS: Divalproex Sodium ER 500 MG TAB.ER.24H PO (08:34)
[2022-03-15] MEDS: HaloperidoL 5 MG TABLET 10 MG PO ×2 (08:34→19:47)
[2022-03-15] MEDS: Ferrous Sulfate 324 MG TABLET.DR PO ×2 (08:34→19:48)
[2022-03-15] MEDS: Furosemide 40 MG TABLET PO ×2 (08:34→16:23)
[2022-03-15 11:11] LABS: Glucose, Whole Blood 103 mg/dL (60-115)
[2022-03-15 15:09] VITALS: BP 102/68; PULSE 82; RESP 18; TEMP 36.2; O2SAT 94
--- NOTE | 2022-03-15 15:10 | HO.PM.IMPN ---
Subjective Subjective Date of Service: 03/15/22 Interval History: Seen and examined this morning Follow-up for placement Patient resting in bed comfortably, no specific complaints Review of Systems Review of Systems: Yes all other systems are reviewed and are negative Constitutional Constitutional: Denies chills and Denies fever(s) Cardiovascular Cardiovascular: Denies chest pain, Denies palpitations and Denies dyspnea Respiratory Respiratory: Denies dyspnea Gastrointestinal Gastrointestinal: Denies abdominal pain Endocrine Endocrine: Denies palpitations Physical Exam Vital Signs: Vital Signs: Last Vital Signs Temp 97.3 F 03/15/22 07:05 Pulse 61 03/15/22 07:05 Resp 18 03/15/22 07:05 BP 105/64 03/15/22 07:05 Pulse Ox 94 03/15/22 07:05 O2 Del Method 03/15/22 07:05 O2 Flow Rate 2 02/16/22 07:18 FiO2 94 02/13/22 15:38 BMI result Body Mass Index 21.8 Const: General: comfortable, no acute distress, alert and awake Nutritional Appearance: average body habitus Resp: Effort & Inspection: normal respiratory effort and able to speak in complete sentences Cardio: Rate: regular rate Heart sounds: S1 normal heart sound present and S2 normal heart sound present GI: Palpation (GI): Soft to palpation and nontender Objective Data Active Medications Acetaminophen (Acetaminophen 325 Mg Tablet) 650 mg PO Q6H PRN PRN Reason: Pain, Mild (Pain Scale 1-3) Atorvastatin Calcium (Atorvastatin Calcium 40 Mg Tablet) 40 mg PO DAILY [facility] Last Admin: 03/15/22 08:34 Dose: 40 mg Documented By: KEON Dextrose (Dextrose 50 % 25 Gm/50 Ml Syringe) 25 gm IVPUSH Q15M PRN; Protocol PRN Reason: per Hypoglycemia Standing Ord. Divalproex Sodium (Divalproex Sodium Er 250 Mg Tab.Er.24h) 250 mg PO DAILY@1700 [facility] Last Admin: 03/14/22 16:00 Dose: 250 mg Documented By: KEON Divalproex Sodium (Divalproex Sodium Er 500 Mg Tab.Er.24h) 500 mg PO DAILY [facility] Last Admin: 03/15/22 08:34 Dose: 500 mg Documented By: KEON Enoxaparin Sodium (Enoxaparin Sodium 40 Mg/0.4 Ml Syringe) 40 mg SUBCUT Q24H [facility] Last Admin: 03/14/22 19:54 Dose: Not Given Documented By: GENIE Non-Admin Reason: Patient Refused Ferrous Sulfate (Ferrous Sulfate 324 Mg Tablet.Dr) 324 mg PO BID [facility] Last Admin: 03/15/22 08:34 Dose: 324 mg Documented By: KEON Fluticasone Propionate (Fluticasone Propionate Nasal 16 Gm [place]) 1 spray NOSTRIL-B BID [facility] Last Admin: 03/15/22 08:49 Dose: Not Given Documented By: KEON Non-Admin Reason: Patient Refused Furosemide (Furosemide 40 Mg Tablet) 40 mg PO BID@0900,1800 [facility]; Protocol Last Admin: 03/15/22 08:34 Dose: 40 mg Documented By: KEON Glucose (Glucose Gel 15 Gm Gel..Gram.) 15 gm PO Q15M PRN; Protocol PRN Reason: per Hypoglycemia Standing Ord. Haloperidol (Haloperidol 5 Mg Tablet) 10 mg PO BID [facility] Last Admin: 03/15/22 08:34 Dose: 10 mg Documented By: KEON Insulin Glargine (Insulin Glargine,Hum.Rec.Anlog 100 Unit/Ml 10 Ml Vial) 10 unit SUBCUT BEDTIME [facility] Last Admin: 03/14/22 19:58 Dose: 10 unit Documented By: GENIE Insulin Human Lispro (Insulin Lispro 100 Unit/Ml 3 Ml Vial) 0 unit SUBCUT QIDACHS [facility]; Protocol Last Admin: 03/15/22 11:52 Dose: Not Given Documented By: KEON Non-Admin Reason: No Insulin Coverage Melatonin (Melatonin 3 Mg Tablet) 6 mg PO BEDTIME PRN PRN Reason: Insomnia Last Admin: 03/12/22 20:30 Dose: 6 mg Documented By: EMELINA Metformin HCl (Metformin Hcl 500 Mg Tablet) 500 mg PO BIDWM [facility] Last Admin: 03/15/22 08:33 Dose: 500 mg Documented By: KEON Neomycin/Polymyxin/Hydrocortisone (Neomycin/Polymyxin/Hc Otic [place] 10 Ml Drpbtl) 3 drop EAR-RIGHT QID [facility] Last Admin: 03/15/22 11:55 Dose: Not Given Documented By: KEON Non-Admin Reason: Patient Refused Olanzapine (Olanzapine Odt 10 Mg Tab.Rapdis) 5 mg TRANSLINGU BID PRN PRN Reason: agitation, psychosis Last Admin: 02/09/22 14:45 Dose: 5 mg Documented By: CIRO Omeprazole (Omeprazole 20 Mg Capsule.) 20 mg PO DAILY@0630 [facility] Last Admin: 03/15/22 08:33 Dose: 20 mg Documented By: KEON Senna (Sennosides 8.6 Mg Tablet) 17.2 mg PO BEDTIME PRN PRN Reason: Constipation Sildenafil Citrate (Sildenafil Citrate 20 Mg Tablet) 20 mg PO TID [facility] Last Admin: 03/15/22 08:33 Dose: 20 mg Documented By: KEON Sitagliptin Phosphate (Sitagliptin Phosphate 100 Mg Tablet) 100 mg PO DAILY [facility] Last Admin: 03/15/22 08:33 Dose: 100 mg Documented By: KEON Sodium Chloride (0.9 % Sodium Chloride Flush 3 Ml Syringe) 3 ml IVFLUSH QSHIFT [facility] Last Admin: 03/15/22 08:48 Dose: Not Given Documented By: KEON Non-Admin Reason: No Access Labs CBC & Chem 7: 01/16/22 05:35 03/10/22 06:08 Labs: Laboratory Results - last 24 hr 03/14/22 03/14/22 03/15/22 15:55 19:22 07:01 POC Glucose 124 H 149 H 108 03/15/22 11:05 POC Glucose 103 Assessment and Plan (1) Pulmonary hypertension: Status: Acute Plan 61-year-old male with a past medical history of schizophrenia, CHF, asthma/COPD, diabetes, hyperlipidemia [facility] with [facility] chief complaint of acute [facility]. Noted to have following conditions Acute hypoxic respiratory failure on presentation due to COPD/asthma/CHF. Not in respiratory distress. wears O2 off and on, but is always above 90 Acute asthma/COPD: Patient has no formal diagnosis. Patient is supposed to be following up with pulmonology as outpatient. Patient had similar presentation in December 2021. continue bronchodilators No indication for steroid at this time Pulmonary HTN--Viagra, outpatient follow up Right heart failure: EF 55 to 60 no acute exacerbation continue oral Lasix 40 bid Diabetes/hyperglycemia: blood sugars in good range continue lantus, SSI, metformin and Sitagliptin schizoaffective disorder: Continue home Depakote, haloperidol DVT prophylaxis: Lovenox Code status: Full code. Confirmed with the patient's guardian [facility] proxy invoked. Lack capacity for medical decision, awaiting permanent placement attending - dr. tarango Quality Stroke Does the patient have a stroke diagnosis?: No VTE Prior VTE?: No VTE Risk Level:: Medical - moderate - high VTE Device Contraindication: Treatment Not Indicated VTE Drug Contraindication: N/A - Med Ordered
[2022-03-15 15:18] LABS: Glucose, Whole Blood 144 mg/dL (60-115)
[2022-03-15] MEDS: Divalproex Sodium ER 250 MG TAB.ER.24H PO (16:23)
[2022-03-15 19:34] LABS: Glucose, Whole Blood 169 mg/dL (60-115)
[2022-03-15] MEDS: Insulin Glargine,Hum.rec.anlog 100 UNIT/ML 10 ML VIAL 10 UNIT SUBCUT (19:48)
[2022-03-15] MEDS: OLANZapine ODT 10 MG TAB.RAPDIS 5 MG TRANSLINGU (19:48)
[2022-03-16 07:29] VITALS: BP 104/64; PULSE 65; RESP 17; TEMP 36.2; O2SAT 94
[2022-03-16 08:15] LABS: Glucose, Whole Blood 130 mg/dL (60-115)
[2022-03-16] MEDS: Ferrous Sulfate 324 MG TABLET.DR PO (09:14)
[2022-03-16] MEDS: Omeprazole 20 MG CAPSULE.DR PO (09:14)
[2022-03-16] MEDS: Furosemide 40 MG TABLET PO ×2 (09:14→16:17)
[2022-03-16] MEDS: Atorvastatin Calcium 40 MG TABLET PO (09:14)
[2022-03-16] MEDS: metFORMIN HCl 500 MG TABLET PO ×2 (09:14→16:18)
[2022-03-16] MEDS: HaloperidoL 5 MG TABLET 10 MG PO ×2 (09:14→20:21)
[2022-03-16] MEDS: Sildenafil Citrate 20 MG TABLET PO ×3 (09:14→20:22)
[2022-03-16] MEDS: SITagliptin Phosphate 100 MG TABLET PO (09:14)
[2022-03-16] MEDS: Divalproex Sodium ER 500 MG TAB.ER.24H PO (09:14)
[2022-03-16 16:00] VITALS: BP 116/65; PULSE 77; RESP 16; TEMP 36.2; O2SAT 95
[2022-03-16] MEDS: Divalproex Sodium ER 250 MG TAB.ER.24H PO (16:18)
--- NOTE | 2022-03-16 16:52 | P.PNIM_ITS ---
Subjective Subjective Date of Service: 03/16/22 Interval History: seen and examined this morning follow-up for placement No overnight events, no specific complaints this morning does not want to take medications, wants to be discharged Review of Systems Review of Systems: Yes all other systems are reviewed and are negative Constitutional Constitutional: Denies fever(s) Cardiovascular Cardiovascular: Denies chest pain and Denies dyspnea Respiratory Respiratory: Denies dyspnea Gastrointestinal Gastrointestinal: Denies abdominal pain Physical Exam Vital Signs: Vital Signs: Last Vital Signs Temp 97.1 F 03/16/22 07:29 Pulse 65 03/16/22 07:29 Resp 17 03/16/22 07:29 BP 104/64 03/16/22 07:29 Pulse Ox 94 03/16/22 07:29 O2 Del Method 03/16/22 07:29 O2 Flow Rate 2 02/16/22 07:18 FiO2 94 02/13/22 15:38 BMI result Body Mass Index 21.8 Const: General: comfortable, no acute distress, alert and awake Nutritional Appearance: average body habitus Resp: Effort & Inspection: normal respiratory effort and able to speak in complete sentences Cardio: Rate: regular rate Heart sounds: S1 normal heart sound present and S2 normal heart sound present GI: Palpation (GI): Soft to palpation and nontender Extrem: General: Yes no pedal edema Objective Data Active Medications Acetaminophen (Acetaminophen 325 Mg Tablet) 650 mg PO Q6H PRN PRN Reason: Pain, Mild (Pain Scale 1-3) Atorvastatin Calcium (Atorvastatin Calcium 40 Mg Tablet) 40 mg PO DAILY [facility] Last Admin: 03/16/22 09:14 Dose: 40 mg Documented By: ATIF Dextrose (Dextrose 50 % 25 Gm/50 Ml Syringe) 25 gm IVPUSH Q15M PRN; Protocol PRN Reason: per Hypoglycemia Standing Ord. Divalproex Sodium (Divalproex Sodium Er 250 Mg Tab.Er.24h) 250 mg PO DAILY@1700 [facility] Last Admin: 03/16/22 16:18 Dose: 250 mg Documented By: ATIF Divalproex Sodium (Divalproex Sodium Er 500 Mg Tab.Er.24h) 500 mg PO DAILY [facility] Last Admin: 03/16/22 09:14 Dose: 500 mg Documented By: ATIF Enoxaparin Sodium (Enoxaparin Sodium 40 Mg/0.4 Ml Syringe) 40 mg SUBCUT Q24H [facility] Last Admin: 03/15/22 19:56 Dose: Not Given Documented By: GENIE Non-Admin Reason: Patient Refused Ferrous Sulfate (Ferrous Sulfate 324 Mg Tablet.Dr) 324 mg PO BID [facility] Last Admin: 03/16/22 09:14 Dose: 324 mg Documented By: ATIF Fluticasone Propionate (Fluticasone Propionate Nasal 16 Gm [place]) 1 spray NOSTRIL-B BID [facility] Last Admin: 03/16/22 09:18 Dose: Not Given Documented By: ATIF Non-Admin Reason: Patient Refused Furosemide (Furosemide 40 Mg Tablet) 40 mg PO BID@0900,1800 [facility]; Protocol Last Admin: 03/16/22 16:17 Dose: 40 mg Documented By: ATIF Glucose (Glucose Gel 15 Gm Gel..Gram.) 15 gm PO Q15M PRN; Protocol PRN Reason: per Hypoglycemia Standing Ord. Haloperidol (Haloperidol 5 Mg Tablet) 10 mg PO BID [facility] Last Admin: 03/16/22 09:14 Dose: 10 mg Documented By: ATIF Insulin Glargine (Insulin Glargine,Hum.Rec.Anlog 100 Unit/Ml 10 Ml Vial) 10 unit SUBCUT BEDTIME [facility] Last Admin: 03/15/22 19:48 Dose: 10 unit Documented By: GENIE Insulin Human Lispro (Insulin Lispro 100 Unit/Ml 3 Ml Vial) 0 unit SUBCUT QIDACHS [facility]; Protocol Last Admin: 03/16/22 16:23 Dose: Not Given Documented By: ATIF Non-Admin Reason: No Insulin Coverage Melatonin (Melatonin 3 Mg Tablet) 6 mg PO BEDTIME PRN PRN Reason: Insomnia Last Admin: 03/12/22 20:30 Dose: 6 mg Documented By: EMELINA Metformin HCl (Metformin Hcl 500 Mg Tablet) 500 mg PO BIDWM [facility] Last Admin: 03/16/22 16:18 Dose: 500 mg Documented By: ATIF Neomycin/Polymyxin/Hydrocortisone (Neomycin/Polymyxin/Hc Otic Melanie 10 Ml Drpbtl) 3 drop EAR-RIGHT QID [facility] Last Admin: 03/16/22 13:24 Dose: Not Given Documented By: ATIF Non-Admin Reason: Patient Refused Olanzapine (Olanzapine Odt 10 Mg Tab.Rapdis) 5 mg TRANSLINGU BID PRN PRN Reason: agitation, psychosis Last Admin: 03/15/22 19:48 Dose: 5 mg Documented By: GENIE Omeprazole (Omeprazole 20 Mg Capsule.) 20 mg PO DAILY@0630 [facility] Last Admin: 03/16/22 09:14 Dose: 20 mg Documented By: ATIF Senna (Sennosides 8.6 Mg Tablet) 17.2 mg PO BEDTIME PRN PRN Reason: Constipation Sildenafil Citrate (Sildenafil Citrate 20 Mg Tablet) 20 mg PO TID [facility] Last Admin: 03/16/22 16:18 Dose: 20 mg Documented By: ATIF Sitagliptin Phosphate (Sitagliptin Phosphate 100 Mg Tablet) 100 mg PO DAILY [facility] Last Admin: 03/16/22 09:14 Dose: 100 mg Documented By: ATIF Sodium Chloride (0.9 % Sodium Chloride Flush 3 Ml Syringe) 3 ml IVFLUSH QSHIFT [facility] Last Admin: 03/16/22 16:18 Dose: Not Given Documented By: ATIF Non-Admin Reason: No Access Labs CBC & Chem 7: 01/16/22 05:35 03/10/22 06:08 Labs: Laboratory Results - last 24 hr 03/15/22 03/16/22 19:30 08:12 POC Glucose 169 H 130 H Assessment and Plan (1) Pulmonary hypertension: Status: Acute Plan 61-year-old male with a past medical history of schizophrenia, CHF, asthma/COPD, diabetes, hyperlipidemia [facility] with a chief complaint of acute hypoxia. Noted to have following conditions Acute hypoxic respiratory failure on presentation due to COPD/asthma/CHF. Not in respiratory distress. wears O2 off and on, but is always above 90 Acute asthma/COPD: Patient has no formal diagnosis. Patient is supposed to be following up with pulmonology as outpatient. Patient had similar presentation in December 2021. continue bronchodilators No indication for steroids at this time Pulmonary HTN--Viagra, outpatient follow up Right heart failure: EF 55 to 60 no acute exacerbation continue oral Lasix 40 bid Diabetes/hyperglycemia: blood sugars in good range continue lantus, SSI, metformin and Sitagliptin schizoaffective disorder: Continue home Depakote, haloperidol DVT prophylaxis: Lovenox Code status: Full code. Confirmed with the patient's guardian [facility] proxy invoked. Lack capacity for medical decision, awaiting permanent placement attending - dr. tarango Quality Stroke Does the patient have a stroke diagnosis?: No VTE Prior VTE?: No VTE Risk Level:: Medical - moderate - high VTE Device Contraindication: Treatment Not Indicated VTE Drug Contraindication: N/A - Med Ordered
[2022-03-16 17:13] LABS: Glucose, Whole Blood 187 mg/dL (60-115)
[2022-03-16 19:42] LABS: Glucose, Whole Blood 192 mg/dL (60-115)
[2022-03-16] MEDS: Insulin Glargine,Hum.rec.anlog 100 UNIT/ML 10 ML VIAL 10 UNIT SUBCUT (20:21)
[2022-03-16 23:37] VITALS: BP 107/57; PULSE 67; RESP 16; TEMP 36.2; O2SAT 96
[2022-03-17] MEDS: Omeprazole 20 MG CAPSULE.DR PO (06:08)
[2022-03-17 07:21] VITALS: BP 106/68; PULSE 60; RESP 18; TEMP 36.6; O2SAT 97
[2022-03-17 07:28] LABS: Glucose, Whole Blood 114 mg/dL (60-115)
[2022-03-17] MEDS: Atorvastatin Calcium 40 MG TABLET PO (09:13)
[2022-03-17] MEDS: SITagliptin Phosphate 100 MG TABLET PO (09:13)
[2022-03-17] MEDS: Ferrous Sulfate 324 MG TABLET.DR PO (09:14)
[2022-03-17] MEDS: HaloperidoL 5 MG TABLET 10 MG PO ×2 (09:14→20:02)
[2022-03-17] MEDS: metFORMIN HCl 500 MG TABLET PO ×2 (09:14→16:47)
[2022-03-17] MEDS: Sildenafil Citrate 20 MG TABLET PO ×3 (09:14→20:02)
[2022-03-17] MEDS: Furosemide 40 MG TABLET PO ×2 (09:14→16:47)
[2022-03-17] MEDS: Divalproex Sodium ER 500 MG TAB.ER.24H PO (09:14)
[2022-03-17 11:08] LABS: Glucose, Whole Blood 149 mg/dL (60-115)
--- NOTE | 2022-03-17 14:39 | P.PNIM_ITS ---
Subjective Subjective Date of Service: 03/17/22 Interval History: seen and examined this morning follow up for placement feels fine this morning, no complaints Review of Systems Review of Systems: Yes all other systems are reviewed and are negative Constitutional Constitutional: Denies fever(s) Cardiovascular Cardiovascular: Denies chest pain and Denies dyspnea Respiratory Respiratory: Denies dyspnea Gastrointestinal Gastrointestinal: Denies abdominal pain Physical Exam Vital Signs: Vital Signs: Last Vital Signs Temp 97.8 F 03/17/22 07:21 Pulse 60 03/17/22 07:21 Resp 18 03/17/22 07:21 BP 106/68 03/17/22 07:21 Pulse Ox 97 03/17/22 07:21 O2 Del Method 03/17/22 07:21 O2 Flow Rate 2 02/16/22 07:18 FiO2 94 02/13/22 15:38 BMI result Body Mass Index 21.8 Const: General: comfortable, no acute distress, alert and awake Nutritional Appearance: average body habitus Resp: Effort & Inspection: normal respiratory effort and able to speak in complete sentences Cardio: Rate: regular rate GI: Palpation (GI): Soft to palpation and nontender Extrem: General: Yes no pedal edema Objective Data Active Medications Acetaminophen (Acetaminophen 325 Mg Tablet) 650 mg PO Q6H PRN PRN Reason: Pain, Mild (Pain Scale 1-3) Atorvastatin Calcium (Atorvastatin Calcium 40 Mg Tablet) 40 mg PO DAILY [facility] Last Admin: 03/17/22 09:13 Dose: 40 mg Documented By: ATIF Dextrose (Dextrose 50 % 25 Gm/50 Ml Syringe) 25 gm IVPUSH Q15M PRN; Protocol PRN Reason: per Hypoglycemia Standing Ord. Divalproex Sodium (Divalproex Sodium Er 250 Mg Tab.Er.24h) 250 mg PO DAILY@1700 [facility] Last Admin: 03/16/22 16:18 Dose: 250 mg Documented By: ATIF Divalproex Sodium (Divalproex Sodium Er 500 Mg Tab.Er.24h) 500 mg PO DAILY [facility] Last Admin: 03/17/22 09:14 Dose: 500 mg Documented By: ATIF Enoxaparin Sodium (Enoxaparin Sodium 40 Mg/0.4 Ml Syringe) 40 mg SUBCUT Q24H [facility] Last Admin: 03/16/22 20:30 Dose: Not Given Documented By: BLADIMIR Non-Admin Reason: Patient Refused Ferrous Sulfate (Ferrous Sulfate 324 Mg Tablet.Dr) 324 mg PO BID [facility] Last Admin: 03/17/22 09:14 Dose: 324 mg Documented By: ATIF Fluticasone Propionate (Fluticasone Propionate Nasal 16 Gm [place]) 1 spray NOSTRIL-B BID [facility] Last Admin: 03/17/22 09:15 Dose: Not Given Documented By: ATIF Non-Admin Reason: Patient Refused Furosemide (Furosemide 40 Mg Tablet) 40 mg PO BID@0900,1800 [facility]; Protocol Last Admin: 03/17/22 09:14 Dose: 40 mg Documented By: ATIF Glucose (Glucose Gel 15 Gm Gel..Gram.) 15 gm PO Q15M PRN; Protocol PRN Reason: per Hypoglycemia Standing Ord. Haloperidol (Haloperidol 5 Mg Tablet) 10 mg PO BID [facility] Last Admin: 03/17/22 09:14 Dose: 10 mg Documented By: ATIF Insulin Glargine (Insulin Glargine,Hum.Rec.Anlog 100 Unit/Ml 10 Ml Vial) 10 unit SUBCUT BEDTIME [facility] Last Admin: 03/16/22 20:21 Dose: 10 unit Documented By: BLADIMIR Insulin Human Lispro (Insulin Lispro 100 Unit/Ml 3 Ml Vial) 0 unit SUBCUT QIDACHS [facility]; Protocol Last Admin: 03/17/22 11:45 Dose: Not Given Documented By: ATIF Non-Admin Reason: No Insulin Coverage Melatonin (Melatonin 3 Mg Tablet) 6 mg PO BEDTIME PRN PRN Reason: Insomnia Last Admin: 03/12/22 20:30 Dose: 6 mg Documented By: EMELINA Metformin HCl (Metformin Hcl 500 Mg Tablet) 500 mg PO BIDWM [facility] Last Admin: 03/17/22 09:14 Dose: 500 mg Documented By: ATIF Neomycin/Polymyxin/Hydrocortisone (Neomycin/Polymyxin/Hc Otic Melanie 10 Ml Drpbtl) 3 drop EAR-RIGHT QID [facility] Last Admin: 03/17/22 13:31 Dose: Not Given Documented By: ATIF Non-Admin Reason: Patient Refused Olanzapine (Olanzapine Odt 10 Mg Tab.Rapdis) 5 mg TRANSLINGU BID PRN PRN Reason: agitation, psychosis Last Admin: 03/15/22 19:48 Dose: 5 mg Documented By: GENIE Omeprazole (Omeprazole 20 Mg Capsule.) 20 mg PO DAILY@0630 [facility] Last Admin: 03/17/22 06:08 Dose: 20 mg Documented By: BLADIMIR Senna (Sennosides 8.6 Mg Tablet) 17.2 mg PO BEDTIME PRN PRN Reason: Constipation Sildenafil Citrate (Sildenafil Citrate 20 Mg Tablet) 20 mg PO TID [facility] Last Admin: 03/17/22 09:14 Dose: 20 mg Documented By: ATIF Sitagliptin Phosphate (Sitagliptin Phosphate 100 Mg Tablet) 100 mg PO DAILY [facility] Last Admin: 03/17/22 09:13 Dose: 100 mg Documented By: ATIF Sodium Chloride (0.9 % Sodium Chloride Flush 3 Ml Syringe) 3 ml IVFLUSH QSHIFT [facility] Last Admin: 03/17/22 09:08 Dose: Not Given Documented By: ATIF Non-Admin Reason: No Access Labs CBC & Chem 7: 01/16/22 05:35 03/10/22 06:08 Labs: Laboratory Results - last 24 hr 03/16/22 03/16/22 03/17/22 16:32 19:37 07:18 POC Glucose 187 H 192 H 114 03/17/22 11:02 POC Glucose 149 H Assessment and Plan (1) Schizo affective schizophrenia: Status: Acute (2) Pulmonary hypertension: Status: Acute Plan 61-year-old male with a past medical history of schizophrenia, CHF, asthma/COPD, diabetes, hyperlipidemia [facility] of acute [facility]. Noted to have following conditions Acute hypoxic respiratory failure on presentation due to COPD/asthma/CHF. Not in respiratory distress Acute asthma/COPD: Patient has no formal diagnosis. Patient is supposed to be following up with pulmonology as outpatient. Patient had similar presentation in December 2021. continue bronchodilators No indication for steroids at this time Pulmonary HTN--Viagra, outpatient follow up Right heart failure: EF 55 to 60 no acute exacerbation continue oral Lasix 40 bid Diabetes/hyperglycemia: blood sugars in good range continue lantus, SSI, metformin and Sitagliptin schizoaffective disorder: Continue home Depakote, haloperidol DVT prophylaxis: Lovenox Code status: Full code. Confirmed with the patient's guardian [facility] proxy invoked. Lacks capacity for medical decision, awaiting permanent placement attending - dr. Michaud Quality Stroke Does the patient have a stroke diagnosis?: No VTE Prior VTE?: No VTE Risk Level:: Medical - moderate - high VTE Device Contraindication: Treatment Not Indicated VTE Drug Contraindication: N/A - Med Ordered
[2022-03-17 16:00] VITALS: BP 118/64; PULSE 67; RESP 18; TEMP 36.8; O2SAT 98
[2022-03-17 16:31] LABS: Glucose, Whole Blood 155 mg/dL (60-115)
[2022-03-17] MEDS: Divalproex Sodium ER 250 MG TAB.ER.24H PO (16:47)
[2022-03-17 19:54] LABS: Glucose, Whole Blood 145 mg/dL (60-115)
[2022-03-17] MEDS: Insulin Glargine,Hum.rec.anlog 100 UNIT/ML 10 ML VIAL 10 UNIT SUBCUT (20:02)
[2022-03-17 23:12] VITALS: BP 96/64; PULSE 71; RESP 18; TEMP 36.4; O2SAT 94
[2022-03-18] MEDS: Omeprazole 20 MG CAPSULE.DR PO (06:02)
[2022-03-18 07:22] LABS: Glucose, Whole Blood 111 mg/dL (60-115)
[2022-03-18 08:00] VITALS: BP 104/55; PULSE 54; RESP 17; TEMP 36.1; O2SAT 95
[2022-03-18] MEDS: HaloperidoL 5 MG TABLET 10 MG PO ×2 (10:00→20:21)
[2022-03-18 11:02] LABS: Glucose, Whole Blood 164 mg/dL (60-115)
--- NOTE | 2022-03-18 14:18 | HO.PM.IMPN ---
Subjective Subjective Date of Service: 03/18/22 Interval History: seen and examined this morning Follow-up for placement No complaints this morning, wants to be discharged. Asking me to leave the room and close the door unable to obtain full review of systems this morning as patient is not interested in engaging in conversation Physical Exam Vital Signs: Vital Signs: Last Vital Signs Temp 97.0 F 03/18/22 08:00 Pulse 54 03/18/22 08:00 Resp 17 03/18/22 08:00 BP 104/55 L 03/18/22 08:00 Pulse Ox 95 03/18/22 08:00 O2 Del Method 03/18/22 08:00 O2 Flow Rate 2 02/16/22 07:18 FiO2 94 02/13/22 15:38 BMI result Body Mass Index 21.8 Const: General: comfortable, no acute distress, alert and awake Nutritional Appearance: average body habitus Resp: Effort & Inspection: normal respiratory effort, able to speak in complete sentences and not tachypneic Auscultation: clear to auscultation bilaterally Cardio: Rate: regular rate Heart sounds: S1 normal heart sound present and S2 normal heart sound present GI: Palpation (GI): Soft to palpation and nontender Extrem: General: Yes no pedal edema Objective Data Active Medications Acetaminophen (Acetaminophen 325 Mg Tablet) 650 mg PO Q6H PRN PRN Reason: Pain, Mild (Pain Scale 1-3) Atorvastatin Calcium (Atorvastatin Calcium 40 Mg Tablet) 40 mg PO DAILY [facility] Last Admin: 03/18/22 09:32 Dose: Not Given Documented By: ATIF Non-Admin Reason: Patient Refused Dextrose (Dextrose 50 % 25 Gm/50 Ml Syringe) 25 gm IVPUSH Q15M PRN; Protocol PRN Reason: per Hypoglycemia Standing Ord. Divalproex Sodium (Divalproex Sodium Er 250 Mg Tab.Er.24h) 250 mg PO DAILY@1700 [facility] Last Admin: 03/17/22 16:47 Dose: 250 mg Documented By: ATIF Divalproex Sodium (Divalproex Sodium Er 500 Mg Tab.Er.24h) 500 mg PO DAILY [facility] Last Admin: 03/18/22 09:32 Dose: Not Given Documented By: ATIF Non-Admin Reason: Patient Refused Enoxaparin Sodium (Enoxaparin Sodium 40 Mg/0.4 Ml Syringe) 40 mg SUBCUT Q24H [facility] Last Admin: 03/17/22 20:14 Dose: Not Given Documented By: BLADIMIR Non-Admin Reason: Patient Refused Ferrous Sulfate (Ferrous Sulfate 324 Mg Tablet.Dr) 324 mg PO BID [facility] Last Admin: 03/18/22 09:32 Dose: Not Given Documented By: ATIF Non-Admin Reason: Patient Refused Fluticasone Propionate (Fluticasone Propionate Nasal 16 Gm [place]) 1 spray NOSTRIL-B BID [facility] Last Admin: 03/18/22 09:32 Dose: Not Given Documented By: ATIF Non-Admin Reason: Patient Refused Furosemide (Furosemide 40 Mg Tablet) 40 mg PO BID@0900,1800 [facility]; Protocol Last Admin: 03/18/22 09:32 Dose: Not Given Documented By: ATIF Non-Admin Reason: Patient Refused Glucose (Glucose Gel 15 Gm Gel..Gram.) 15 gm PO Q15M PRN; Protocol PRN Reason: per Hypoglycemia Standing Ord. Haloperidol (Haloperidol 5 Mg Tablet) 10 mg PO BID [facility] Last Admin: 03/18/22 10:00 Dose: 10 mg Documented By: ATIF Insulin Glargine (Insulin Glargine,Hum.Rec.Anlog 100 Unit/Ml 10 Ml Vial) 10 unit SUBCUT BEDTIME [facility] Last Admin: 03/17/22 20:02 Dose: 10 unit Documented By: BLADIMIR Insulin Human Lispro (Insulin Lispro 100 Unit/Ml 3 Ml Vial) 0 unit SUBCUT QIDACHS [facility]; Protocol Last Admin: 03/18/22 13:02 Dose: Not Given Documented By: ATIF Non-Admin Reason: Patient Refused Melatonin (Melatonin 3 Mg Tablet) 6 mg PO BEDTIME PRN PRN Reason: Insomnia Last Admin: 03/12/22 20:30 Dose: 6 mg Documented By: EMELINA Metformin HCl (Metformin Hcl 500 Mg Tablet) 500 mg PO BIDWM [facility] Last Admin: 03/18/22 09:32 Dose: Not Given Documented By: ATIF Non-Admin Reason: Patient Refused Neomycin/Polymyxin/Hydrocortisone (Neomycin/Polymyxin/Hc Otic Melanie 10 Ml Drpbtl) 3 drop EAR-RIGHT QID [facility] Last Admin: 03/18/22 13:44 Dose: Not Given Documented By: ATIF Non-Admin Reason: Patient Refused Olanzapine (Olanzapine Odt 10 Mg Tab.Rapdis) 5 mg TRANSLINGU BID PRN PRN Reason: agitation, psychosis Last Admin: 03/15/22 19:48 Dose: 5 mg Documented By: GENIE Omeprazole (Omeprazole 20 Mg Capsule.Dr) 20 mg PO DAILY@0630 [facility] Last Admin: 03/18/22 06:02 Dose: 20 mg Documented By: BLADIMIR Senna (Sennosides 8.6 Mg Tablet) 17.2 mg PO BEDTIME PRN PRN Reason: Constipation Sildenafil Citrate (Sildenafil Citrate 20 Mg Tablet) 20 mg PO TID [facility] Last Admin: 03/18/22 09:33 Dose: Not Given Documented By: ATIF Non-Admin Reason: Patient Refused Sitagliptin Phosphate (Sitagliptin Phosphate 100 Mg Tablet) 100 mg PO DAILY [facility] Last Admin: 03/18/22 09:33 Dose: Not Given Documented By: ATIF Non-Admin Reason: Patient Refused Sodium Chloride (0.9 % Sodium Chloride Flush 3 Ml Syringe) 3 ml IVFLUSH QSHIFT [facility] Last Admin: 03/18/22 09:31 Dose: Not Given Documented By: ATIF Non-Admin Reason: No Access Labs CBC & Chem 7: 01/16/22 05:35 03/10/22 06:08 Labs: Laboratory Results - last 24 hr 03/17/22 03/17/22 03/18/22 15:24 19:46 07:18 POC Glucose 155 H 145 H 111 03/18/22 10:59 POC Glucose 164 H Assessment and Plan (1) Pulmonary hypertension: Status: Acute Plan 61-year-old male with a past medical history of schizophrenia, CHF, asthma/COPD, diabetes, hyperlipidemia [facility] with a chief complaint of acute hypoxia. Noted to have following conditions Acute hypoxic respiratory failure on presentation due to COPD/asthma/CHF. Not in respiratory distress Acute asthma/COPD: Patient has no formal diagnosis. Patient is supposed to be following up with pulmonology as outpatient. Patient had similar presentation in December 2021. continue bronchodilators No indication for steroids at this time Pulmonary HTN--Viagra, outpatient follow up Right heart failure: EF 55 to 60 no acute exacerbation continue oral Lasix 40 bid Diabetes/hyperglycemia: blood sugars in good range continue lantus, SSI, metformin and Sitagliptin schizoaffective disorder: Continue home Depakote, haloperidol DVT prophylaxis: Lovenox Code status: Full code. Confirmed with the patient's guardian [facility] proxy invoked. Lacks capacity for medical decision, awaiting permanent placement attending - Quality Stroke Does the patient have a stroke diagnosis?: No VTE Prior VTE?: No VTE Risk Level:: Medical - moderate - high VTE Device Contraindication: Treatment Not Indicated VTE Drug Contraindication: N/A - Med Ordered
[2022-03-18 15:33] VITALS: BP 97/59; PULSE 70; RESP 17; TEMP 36.9; O2SAT 95
[2022-03-18 16:05] LABS: Glucose, Whole Blood 236 mg/dL (60-115)
[2022-03-18] MEDS: Sildenafil Citrate 20 MG TABLET PO ×2 (16:24→20:21)
[2022-03-18] MEDS: Divalproex Sodium ER 250 MG TAB.ER.24H PO (16:24)
[2022-03-18] MEDS: metFORMIN HCl 500 MG TABLET PO (16:24)
[2022-03-18 20:10] LABS: Glucose, Whole Blood 127 mg/dL (60-115)
[2022-03-18] MEDS: Ferrous Sulfate 324 MG TABLET.DR PO (20:21)
[2022-03-18] MEDS: Insulin Glargine,Hum.rec.anlog 100 UNIT/ML 10 ML VIAL 10 UNIT SUBCUT (20:22)
[2022-03-19 07:20] LABS: Glucose, Whole Blood 132 mg/dL (60-115)
[2022-03-19 07:47] VITALS: BP 100/64; PULSE 70; RESP 18; TEMP 36.4; O2SAT 94
[2022-03-19 08:20] LABS: Creatinine Clr Calc Pharmacy 98.9; Estimated Glomerular Filt Rate > 60
--- NOTE | 2022-03-19 09:17 | HO.PM.IMPN ---
Subjective Subjective Date of Service: 03/19/22 Interval History: seen and examined this morning Follow-up for placement No complaints this morning, still want be discharged. He is comfortable Review of Systems no sob no fever Physical Exam Vital Signs: Vital Signs: Last Vital Signs Temp 97.6 F 03/19/22 07:47 Pulse 70 03/19/22 07:47 Resp 18 03/19/22 07:47 BP 100/64 03/19/22 07:47 Pulse Ox 94 03/19/22 07:47 O2 Del Method 03/19/22 07:47 O2 Flow Rate 2 02/16/22 07:18 FiO2 94 02/13/22 15:38 BMI result Body Mass Index 21.8 Const: Other: General: AO X 2, no acute distress Resp: CTA bilateral CVS: S1,S2,RRR GI: +BS, NT, no distention Skin: No rash Neuro: motor grossly intact Psych: flat affect Objective Data Active Medications Acetaminophen (Acetaminophen 325 Mg Tablet) 650 mg PO Q6H PRN PRN Reason: Pain, Mild (Pain Scale 1-3) Atorvastatin Calcium (Atorvastatin Calcium 40 Mg Tablet) 40 mg PO DAILY [facility] Last Admin: 03/18/22 09:32 Dose: Not Given Documented By: ATIF Non-Admin Reason: Patient Refused Dextrose (Dextrose 50 % 25 Gm/50 Ml Syringe) 25 gm IVPUSH Q15M PRN; Protocol PRN Reason: per Hypoglycemia Standing Ord. Divalproex Sodium (Divalproex Sodium Er 250 Mg Tab.Er.24h) 250 mg PO DAILY@1700 [facility] Last Admin: 03/18/22 16:24 Dose: 250 mg Documented By: ATIF Divalproex Sodium (Divalproex Sodium Er 500 Mg Tab.Er.24h) 500 mg PO DAILY [facility] Last Admin: 03/18/22 09:32 Dose: Not Given Documented By: ATIF Non-Admin Reason: Patient Refused Enoxaparin Sodium (Enoxaparin Sodium 40 Mg/0.4 Ml Syringe) 40 mg SUBCUT Q24H [facility] Last Admin: 03/18/22 19:44 Dose: Not Given Documented By: GENIE Non-Admin Reason: Patient Refused Ferrous Sulfate (Ferrous Sulfate 324 Mg Tablet.) 324 mg PO BID [facility] Last Admin: 03/18/22 20:21 Dose: 324 mg Documented By: GENIE Fluticasone Propionate (Fluticasone Propionate Nasal 16 Gm [place]) 1 spray NOSTRIL-B BID [facility] Last Admin: 03/18/22 19:45 Dose: Not Given Documented By: GENIE Non-Admin Reason: Patient Refused Furosemide (Furosemide 40 Mg Tablet) 40 mg PO BID@0900,1800 [facility]; Protocol Last Admin: 03/18/22 18:05 Dose: Not Given Documented By: ATIF Non-Admin Reason: low blood pressure Glucose (Glucose Gel 15 Gm Gel..Gram.) 15 gm PO Q15M PRN; Protocol PRN Reason: per Hypoglycemia Standing Ord. Haloperidol (Haloperidol 5 Mg Tablet) 10 mg PO BID [facility] Last Admin: 03/18/22 20:21 Dose: 10 mg Documented By: GENIE Insulin Glargine (Insulin Glargine,Hum.Rec.Anlog 100 Unit/Ml 10 Ml Vial) 10 unit SUBCUT BEDTIME [facility] Last Admin: 03/18/22 20:22 Dose: 10 unit Documented By: GENIE Insulin Human Lispro (Insulin Lispro 100 Unit/Ml 3 Ml Vial) 0 unit SUBCUT QIDACHS [facility]; Protocol Last Admin: 03/19/22 07:32 Dose: Not Given Documented By: MT Non-Admin Reason: No Insulin Coverage Melatonin (Melatonin 3 Mg Tablet) 6 mg PO BEDTIME PRN PRN Reason: Insomnia Last Admin: 03/12/22 20:30 Dose: 6 mg Documented By: EMELINA Metformin HCl (Metformin Hcl 500 Mg Tablet) 500 mg PO BIDWM [facility] Last Admin: 03/18/22 16:24 Dose: 500 mg Documented By: ATIF Neomycin/Polymyxin/Hydrocortisone (Neomycin/Polymyxin/Hc Otic Melanie 10 Ml Drpbtl) 3 drop EAR-RIGHT QID [facility] Last Admin: 03/18/22 19:45 Dose: Not Given Documented By: GENIE Non-Admin Reason: Patient Refused Olanzapine (Olanzapine Odt 10 Mg Tab.Rapdis) 5 mg TRANSLINGU BID PRN PRN Reason: agitation, psychosis Last Admin: 03/15/22 19:48 Dose: 5 mg Documented By: GENIE Omeprazole (Omeprazole 20 Mg Capsule.Dr) 20 mg PO DAILY@0630 [facility] Last Admin: 03/18/22 06:02 Dose: 20 mg Documented By: BLADIMIR Senna (Sennosides 8.6 Mg Tablet) 17.2 mg PO BEDTIME PRN PRN Reason: Constipation Sildenafil Citrate (Sildenafil Citrate 20 Mg Tablet) 20 mg PO TID [facility] Last Admin: 03/18/22 20:21 Dose: 20 mg Documented By: GENIE Sitagliptin Phosphate (Sitagliptin Phosphate 100 Mg Tablet) 100 mg PO DAILY [facility] Last Admin: 03/18/22 09:33 Dose: Not Given Documented By: ATIF Non-Admin Reason: Patient Refused Sodium Chloride (0.9 % Sodium Chloride Flush 3 Ml Syringe) 3 ml IVFLUSH QSHIFT [facility] Last Admin: 03/18/22 20:35 Dose: Not Given Documented By: GENIE Non-Admin Reason: No Access Labs CBC & Chem 7: 01/16/22 05:35 03/19/22 07:46 Labs: Laboratory Results - last 24 hr 03/18/22 03/18/22 03/18/22 10:59 15:36 20:05 Estim Creat Clear Calc Estimated GFR POC Glucose 164 H 236 H 127 H 03/19/22 03/19/22 07:13 07:46 Estim Creat Clear Calc 98.9 Estimated GFR > 60 POC Glucose 132 H Assessment and Plan (1) Pulmonary hypertension: Status: Acute Plan 61-year-old male with a past medical history of schizophrenia, CHF, asthma/COPD, diabetes, hyperlipidemia presented from the long-term with a chief complaint of acute hypoxia. Noted to have following conditions Acute hypoxic respiratory failure on presentation due to COPD/asthma/CHF. Not in respiratory distress Acute asthma/COPD: Patient has no formal diagnosis. Patient is supposed to be following up with pulmonology as outpatient. Patient had similar presentation in December 2021. continue bronchodilators No indication for steroids at this time Pulmonary HTN--Viagra, outpatient follow up Right heart failure: EF 55 to 60 no acute exacerbation continue oral Lasix 40 bid Diabetes/hyperglycemia: blood sugars in good range continue lantus, SSI, metformin and Sitagliptin schizoaffective disorder: Continue home Depakote, haloperidol DVT prophylaxis: Lovenox Code status: Full code. Confirmed with the patient's guardian [facility] proxy invoked. Lacks capacity for medical decision, awaiting permanent placement attending - Quality Stroke Does the patient have a stroke diagnosis?: No VTE Prior VTE?: No VTE Risk Level:: Medical - moderate - high VTE Device Contraindication: Treatment Not Indicated VTE Drug Contraindication: N/A - Med Ordered
[2022-03-19] MEDS: Insulin Lispro 100 UNIT/ML 3 ML VIAL SUBCUT (11:43)
[2022-03-19 11:53] LABS: Glucose, Whole Blood 210 mg/dL (60-115)
[2022-03-19 15:40] VITALS: BP 110/64; PULSE 79; RESP 18; TEMP 36.6; O2SAT 98
[2022-03-19] MEDS: Furosemide 40 MG TABLET PO (17:16)
[2022-03-19] MEDS: Sildenafil Citrate 20 MG TABLET PO ×2 (17:17→19:48)
[2022-03-19] MEDS: metFORMIN HCl 500 MG TABLET PO (17:17)
[2022-03-19] MEDS: Divalproex Sodium ER 250 MG TAB.ER.24H PO (18:13)
[2022-03-19 18:16] LABS: Glucose, Whole Blood 137 mg/dL (60-115)
[2022-03-19 19:19] LABS: Glucose, Whole Blood 189 mg/dL (60-115)
[2022-03-19] MEDS: HaloperidoL 5 MG TABLET 10 MG PO (19:48)
[2022-03-19] MEDS: Ferrous Sulfate 324 MG TABLET.DR PO (19:48)
[2022-03-19 23:42] VITALS: BP 102/65; PULSE 85; RESP 16; TEMP 36.8; O2SAT 94
[2022-03-20 07:30] VITALS: BP 99/54; PULSE 74; RESP 17; TEMP 36.3; O2SAT 95
[2022-03-20 07:41] LABS: Glucose, Whole Blood 141 mg/dL (60-115)
--- NOTE | 2022-03-20 09:47 | HO.PM.IMPN ---
Subjective Subjective Date of Service: 03/20/22 Interval History: seen and examined this morning Follow-up for placement all he wants is to be discharged Review of Systems no sob no fever Physical Exam Vital Signs: Vital Signs: Last Vital Signs Temp 97.4 F 03/20/22 07:30 Pulse 74 03/20/22 07:30 Resp 17 03/20/22 07:30 BP 99/54 L 03/20/22 07:30 Pulse Ox 95 03/20/22 07:30 O2 Del Method 03/20/22 07:30 O2 Flow Rate 2 02/16/22 07:18 FiO2 94 02/13/22 15:38 BMI result Body Mass Index 21.8 Const: Other: General: AO X 2, no acute distress Resp: CTA bilateral CVS: S1,S2,RRR GI: +BS, NT, no distention Skin: No rash Neuro: motor grossly intact Psych: flat affect Objective Data Active Medications Acetaminophen (Acetaminophen 325 Mg Tablet) 650 mg PO Q6H PRN PRN Reason: Pain, Mild (Pain Scale 1-3) Atorvastatin Calcium (Atorvastatin Calcium 40 Mg Tablet) 40 mg PO DAILY [facility] Last Admin: 03/20/22 09:03 Dose: Not Given Documented By: MT Non-Admin Reason: Patient Refused Dextrose (Dextrose 50 % 25 Gm/50 Ml Syringe) 25 gm IVPUSH Q15M PRN; Protocol PRN Reason: per Hypoglycemia Standing Ord. Divalproex Sodium (Divalproex Sodium Er 250 Mg Tab.Er.24h) 250 mg PO DAILY@1700 [facility] Last Admin: 03/19/22 18:13 Dose: 250 mg Documented By: MT Divalproex Sodium (Divalproex Sodium Er 500 Mg Tab.Er.24h) 500 mg PO DAILY [facility] Last Admin: 03/20/22 09:04 Dose: Not Given Documented By: MT Non-Admin Reason: Patient Refused Enoxaparin Sodium (Enoxaparin Sodium 40 Mg/0.4 Ml Syringe) 40 mg SUBCUT Q24H [facility] Last Admin: 03/19/22 19:50 Dose: Not Given Documented By: ESTELLE Non-Admin Reason: Patient Refused Ferrous Sulfate (Ferrous Sulfate 324 Mg [place].) 324 mg PO BID [facility] Last Admin: 03/20/22 09:04 Dose: Not Given Documented By: MT Non-Admin Reason: Patient Refused Fluticasone Propionate (Fluticasone Propionate Nasal 16 Gm [place]) 1 spray NOSTRIL-B BID [facility] Last Admin: 03/20/22 09:04 Dose: Not Given Documented By: MT Non-Admin Reason: Patient Refused Furosemide (Furosemide 40 Mg Tablet) 40 mg PO BID@0900,1800 [facility]; Protocol Last Admin: 03/20/22 09:04 Dose: Not Given Documented By: MT Non-Admin Reason: Patient Refused Glucose (Glucose Gel 15 Gm Gel..Gram.) 15 gm PO Q15M PRN; Protocol PRN Reason: per Hypoglycemia Standing Ord. Haloperidol (Haloperidol 5 Mg Tablet) 10 mg PO BID [facility] Last Admin: 03/20/22 09:04 Dose: Not Given Documented By: MT Non-Admin Reason: Patient Refused Insulin Glargine (Insulin Glargine,Hum.Rec.Anlog 100 Unit/Ml 10 Ml Vial) 10 unit SUBCUT BEDTIME [facility] Last Admin: 03/19/22 19:50 Dose: Not Given Documented By: ESTELLE Non-Admin Reason: Patient Refused Insulin Human Lispro (Insulin Lispro 100 Unit/Ml 3 Ml Vial) 0 unit SUBCUT QIDACHS [facility]; Protocol Last Admin: 03/20/22 08:24 Dose: Not Given Documented By: MT Non-Admin Reason: No Insulin Coverage Melatonin (Melatonin 3 Mg Tablet) 6 mg PO BEDTIME PRN PRN Reason: Insomnia Last Admin: 03/12/22 20:30 Dose: 6 mg Documented By: EMELINA Metformin HCl (Metformin Hcl 500 Mg Tablet) 500 mg PO BIDWM [facility] Last Admin: 03/20/22 09:03 Dose: Not Given Documented By: MT Non-Admin Reason: Patient Refused Neomycin/Polymyxin/Hydrocortisone (Neomycin/Polymyxin/Hc Otic Melanie 10 Ml Drpbtl) 3 drop EAR-RIGHT QID [facility] Last Admin: 03/20/22 09:05 Dose: Not Given Documented By: MT Non-Admin Reason: Patient Refused Olanzapine (Olanzapine Odt 10 Mg Tab.Rapdis) 5 mg TRANSLINGU BID PRN PRN Reason: agitation, psychosis Last Admin: 03/15/22 19:48 Dose: 5 mg Documented By: HO.BOURQC Omeprazole (Omeprazole 20 Mg Capsule.) 20 mg PO DAILY@0630 [facility] Last Admin: 03/20/22 05:50 Dose: Not Given Documented By: ESTELLE Non-Admin Reason: Patient Refused Senna (Sennosides 8.6 Mg Tablet) 17.2 mg PO BEDTIME PRN PRN Reason: Constipation Sildenafil Citrate (Sildenafil Citrate 20 Mg Tablet) 20 mg PO TID [facility] Last Admin: 03/20/22 09:05 Dose: Not Given Documented By: MT Non-Admin Reason: Patient Refused Sitagliptin Phosphate (Sitagliptin Phosphate 100 Mg Tablet) 100 mg PO DAILY [facility] Last Admin: 03/20/22 09:05 Dose: Not Given Documented By: MT Non-Admin Reason: Patient Refused Sodium Chloride (0.9 % Sodium Chloride Flush 3 Ml Syringe) 3 ml IVFLUSH QSHIFT [facility] Last Admin: 03/20/22 09:03 Dose: Not Given Documented By: MT Non-Admin Reason: No Access Labs CBC & Chem 7: 01/16/22 05:35 03/19/22 07:46 Labs: Laboratory Results - last 24 hr 03/19/22 03/19/22 03/19/22 11:39 15:44 19:15 POC Glucose 210 H 137 H 189 H 03/20/22 07:32 POC Glucose 141 H Assessment and Plan (1) Pulmonary hypertension: Status: Acute Plan 61-year-old male with a past medical history of schizophrenia, CHF, asthma/COPD, diabetes, hyperlipidemia presented from the senior care with a chief complaint of acute hypoxia. Noted to have following conditions Acute hypoxic respiratory failure on presentation due to COPD/asthma/CHF-- Resolved. Acute asthma/COPD: Patient has no formal diagnosis. Patient is supposed to be following up with pulmonology as outpatient. Patient had similar presentation in December 2021. continue bronchodilators No indication for steroids at this time Pulmonary HTN--Viagra, outpatient follow up Right heart failure: EF 55 to 60 no acute exacerbation continue oral Lasix 40 bid Diabetes/hyperglycemia: blood sugars in good range continue lantus, SSI, metformin and Sitagliptin schizoaffective disorder: Continue home Depakote, haloperidol DVT prophylaxis: Lovenox Code status: Full code. Confirmed with the patient's guardian [facility] proxy invoked. Lacks capacity for medical decision, awaiting permanent placement need for inpatient : awaiting placement Quality Stroke Does the patient have a stroke diagnosis?: No VTE Prior VTE?: No VTE Risk Level:: Medical - moderate - high VTE Device Contraindication: Treatment Not Indicated VTE Drug Contraindication: N/A - Med Ordered
[2022-03-20 11:37] LABS: Glucose, Whole Blood 139 mg/dL (60-115)
[2022-03-20 15:34] VITALS: BP 97/69; PULSE 76; RESP 18; TEMP 36.4; O2SAT 97
[2022-03-20 15:45] LABS: Glucose, Whole Blood 152 mg/dL (60-115)
[2022-03-20] MEDS: Sildenafil Citrate 20 MG TABLET PO ×2 (17:56→20:20)
[2022-03-20] MEDS: Divalproex Sodium ER 250 MG TAB.ER.24H PO (17:56)
[2022-03-20] MEDS: Furosemide 40 MG TABLET PO (17:56)
[2022-03-20] MEDS: metFORMIN HCl 500 MG TABLET PO (17:56)
[2022-03-20 19:46] LABS: Glucose, Whole Blood 187 mg/dL (60-115)
[2022-03-20] MEDS: HaloperidoL 5 MG TABLET 10 MG PO (20:19)
[2022-03-20] MEDS: Insulin Glargine,Hum.rec.anlog 100 UNIT/ML 10 ML VIAL 10 UNIT SUBCUT (20:20)
[2022-03-20 23:35] VITALS: BP 107/65; PULSE 62; RESP 18; TEMP 36.6; O2SAT 93
[2022-03-21 07:11] VITALS: BP 105/62; PULSE 66; RESP 18; TEMP 37.2; O2SAT 90
[2022-03-21 07:37] LABS: Glucose, Whole Blood 127 mg/dL (60-115)
[2022-03-21] MEDS: Divalproex Sodium ER 500 MG TAB.ER.24H PO (10:21)
[2022-03-21] MEDS: Furosemide 40 MG TABLET PO ×2 (10:21→18:36)
[2022-03-21] MEDS: SITagliptin Phosphate 100 MG TABLET PO (10:21)
[2022-03-21] MEDS: Atorvastatin Calcium 40 MG TABLET PO (10:21)
[2022-03-21] MEDS: Ferrous Sulfate 324 MG TABLET.DR PO ×2 (10:21→21:58)
[2022-03-21] MEDS: Sildenafil Citrate 20 MG TABLET PO ×3 (10:22→21:58)
[2022-03-21] MEDS: HaloperidoL 5 MG TABLET 10 MG PO ×2 (10:22→21:58)
[2022-03-21] MEDS: metFORMIN HCl 500 MG TABLET PO ×2 (10:22→18:36)
[2022-03-21 11:09] LABS: Glucose, Whole Blood 200 mg/dL (60-115)
--- NOTE | 2022-03-21 11:33 | P.PNIM_ITS ---
Subjective Subjective Date of Service: 03/21/22 Interval History: seen and examined this morning Follow-up for placement upset this morning about no discharge papers Review of Systems no sob no fever Physical Exam Vital Signs: Vital Signs: Last Vital Signs Temp 98.9 F 03/21/22 07:11 Pulse 66 03/21/22 07:11 Resp 18 03/21/22 07:11 BP 105/62 03/21/22 07:11 Pulse Ox 90 L 03/21/22 07:11 O2 Del Method 03/21/22 07:11 O2 Flow Rate 2 02/16/22 07:18 FiO2 94 02/13/22 15:38 BMI result Body Mass Index 21.8 Const: Other: General: AO X 2, no acute distress Resp: CTA bilateral CVS: S1,S2,RRR GI: +BS, NT, no distention Skin: No rash Neuro: motor grossly intact Psych: flat affect Objective Data Active Medications Acetaminophen (Acetaminophen 325 Mg Tablet) 650 mg PO Q6H PRN PRN Reason: Pain, Mild (Pain Scale 1-3) Atorvastatin Calcium (Atorvastatin Calcium 40 Mg Tablet) 40 mg PO DAILY [facility] Last Admin: 03/21/22 10:21 Dose: 40 mg Documented By: TODD Dextrose (Dextrose 50 % 25 Gm/50 Ml Syringe) 25 gm IVPUSH Q15M PRN; Protocol PRN Reason: per Hypoglycemia Standing Ord. Divalproex Sodium (Divalproex Sodium Er 250 Mg Tab.Er.24h) 250 mg PO DAILY@1700 [facility] Last Admin: 03/20/22 17:56 Dose: 250 mg Documented By: MT Divalproex Sodium (Divalproex Sodium Er 500 Mg Tab.Er.24h) 500 mg PO DAILY [facility] Last Admin: 03/21/22 10:21 Dose: 500 mg Documented By: TODD Enoxaparin Sodium (Enoxaparin Sodium 40 Mg/0.4 Ml Syringe) 40 mg SUBCUT Q24H [facility] Last Admin: 03/20/22 20:49 Dose: Not Given Documented By: BLADIMIR Non-Admin Reason: Patient Refused Ferrous Sulfate (Ferrous Sulfate 324 Mg Tablet.) 324 mg PO BID [facility] Last Admin: 03/21/22 10:21 Dose: 324 mg Documented By: TODD Fluticasone Propionate (Fluticasone Propionate Nasal 16 Gm [place]) 1 spray NOSTRIL-B BID [facility] Last Admin: 03/21/22 10:22 Dose: Not Given Documented By: TODD Non-Admin Reason: Patient Refused Furosemide (Furosemide 40 Mg Tablet) 40 mg PO BID@0900,1800 [facility]; Protocol Last Admin: 03/21/22 10:21 Dose: 40 mg Documented By: TODD Glucose (Glucose Gel 15 Gm Gel..Gram.) 15 gm PO Q15M PRN; Protocol PRN Reason: per Hypoglycemia Standing Ord. Haloperidol (Haloperidol 5 Mg Tablet) 10 mg PO BID [facility] Last Admin: 03/21/22 10:22 Dose: 10 mg Documented By: TODD Insulin Glargine (Insulin Glargine,Hum.Rec.Anlog 100 Unit/Ml 10 Ml Vial) 10 unit SUBCUT BEDTIME [facility] Last Admin: 03/20/22 20:20 Dose: 10 unit Documented By: BLADIMIR Insulin Human Lispro (Insulin Lispro 100 Unit/Ml 3 Ml Vial) 0 unit SUBCUT QIDACHS [facility]; Protocol Last Admin: 03/21/22 10:15 Dose: Not Given Documented By: TODD Non-Admin Reason: No Insulin Coverage Melatonin (Melatonin 3 Mg Tablet) 6 mg PO BEDTIME PRN PRN Reason: Insomnia Last Admin: 03/12/22 20:30 Dose: 6 mg Documented By: EMELINA Metformin HCl (Metformin Hcl 500 Mg Tablet) 500 mg PO BIDWM [facility] Last Admin: 03/21/22 10:22 Dose: 500 mg Documented By: TODD Neomycin/Polymyxin/Hydrocortisone (Neomycin/Polymyxin/Hc Otic Melanie 10 Ml Drpbtl) 3 drop EAR-RIGHT QID [facility] Last Admin: 03/21/22 10:22 Dose: Not Given Documented By: TODD Non-Admin Reason: Patient Refused Olanzapine (Olanzapine Odt 10 Mg Tab.Rapdis) 5 mg TRANSLINGU BID PRN PRN Reason: agitation, psychosis Last Admin: 03/15/22 19:48 Dose: 5 mg Documented By: GENIE Omeprazole (Omeprazole 20 Mg Capsule.Dr) 20 mg PO DAILY@0630 [facility] Last Admin: 03/21/22 06:17 Dose: Not Given Documented By: BLADIMIR Non-Admin Reason: Patient Refused Senna (Sennosides 8.6 Mg Tablet) 17.2 mg PO BEDTIME PRN PRN Reason: Constipation Sildenafil Citrate (Sildenafil Citrate 20 Mg Tablet) 20 mg PO TID [facility] Last Admin: 03/21/22 10:22 Dose: 20 mg Documented By: TODD Sitagliptin Phosphate (Sitagliptin Phosphate 100 Mg Tablet) 100 mg PO DAILY [facility] Last Admin: 03/21/22 10:21 Dose: 100 mg Documented By: TODD Sodium Chloride (0.9 % Sodium Chloride Flush 3 Ml Syringe) 3 ml IVFLUSH QSHIFT [facility] Last Admin: 03/21/22 10:15 Dose: Not Given Documented By: TODD Non-Admin Reason: No Access Labs CBC & Chem 7: 01/16/22 05:35 03/19/22 07:46 Labs: Laboratory Results - last 24 hr 03/20/22 03/20/22 03/20/22 11:17 15:37 19:41 POC Glucose 139 H 152 H 187 H 03/21/22 03/21/22 07:09 11:04 POC Glucose 127 H 200 H Assessment and Plan (1) Pulmonary hypertension: Status: Acute Plan 61-year-old male with a past medical history of schizophrenia, CHF, asthma/COPD, diabetes, hyperlipidemia presented from the [place] [facility] with a chief complaint of acute hypoxia. Noted to have following conditions Acute hypoxic respiratory failure on presentation suspected d/t COPD/asthma/CHF-- Resolved. Acute asthma/COPD: Patient has no formal diagnosis. Patient is supposed to be following up with pulmonology as outpatient. He had similar presentation in December 2021. continue bronchodilators No indication for steroids at this time Pulmonary HTN--Viagra, outpatient follow up Right heart failure: EF 55 to 60 no acute exacerbation continue oral Lasix 40 bid Diabetes/hyperglycemia: blood sugars in acceptable range continue lantus, SSI, metformin and Sitagliptin schizoaffective disorder: Continue home Depakote, haloperidol DVT prophylaxis: Lovenox Code status: Full code. Confirmed with the patient's guardian [facility] proxy invoked. Lacks capacity for medical decision, awaiting permanent placement need for inpatient : awaiting placement out of bed and to ambulate in [place] daily Quality Stroke Does the patient have a stroke diagnosis?: No VTE Prior VTE?: No VTE Risk Level:: Medical - moderate - high VTE Device Contraindication: Treatment Not Indicated VTE Drug Contraindication: N/A - Med Ordered
--- NOTE | 2022-03-21 12:17 | MHC.CM.PN ---
EMR REVIEWED, PT CONT'S TO BE MEDICALLY STABLE FOR D/C, CM HAS STILL RECEIVED NO BED OFFERS AT THIS TIME, REFERRAL UPDATED AND CM WILL CONT TO FOLLOW D/C NEEDS.
--- NOTE | 2022-03-21 12:21 | MHC.CM.PN ---
LATE ENTRY NOTE FOR 03/19/22, CM MET W/PT WHO INITIALLY DID NOT WANT TO TAKE AM MEDS HOWEVER W/ENCOURAGEMENT PT WAS COMPLIANT, CM STILL AWAITING BED OFFER ON SECURE UNIT, NO BED OFFERS AT THIS TIME, [facility] MESSAGED REGARDING BED AVAILABILITY ON SECURE UNIT HOWEVER THEY HAVE NOT RESPONDED, REFERRAL UPDATED AND CM WILL CONT TO FOLLOW PLACEMENT AND D/C NEEDS.
[2022-03-21 15:31] VITALS: BP 101/62; PULSE 75; RESP 16; TEMP 36.4; O2SAT 100
[2022-03-21 15:38] LABS: Glucose, Whole Blood 183 mg/dL (60-115)
[2022-03-21] MEDS: Insulin Lispro 100 UNIT/ML 3 ML VIAL SUBCUT (16:30)
[2022-03-21] MEDS: Divalproex Sodium ER 250 MG TAB.ER.24H PO (16:31)
[2022-03-21 19:22] LABS: Glucose, Whole Blood 163 mg/dL (60-115)
[2022-03-21] MEDS: Insulin Glargine,Hum.rec.anlog 100 UNIT/ML 10 ML VIAL 10 UNIT SUBCUT (21:56)
[2022-03-21 23:36] VITALS: BP 101/62; PULSE 82; RESP 16; TEMP 37.3; O2SAT 95
[2022-03-22 07:25] LABS: Glucose, Whole Blood 140 mg/dL (60-115)
[2022-03-22 08:00] VITALS: BP 112/68; PULSE 66; RESP 18; TEMP 36.2; O2SAT 94
--- NOTE | 2022-03-22 08:51 | HO.PM.IMPN ---
Subjective Subjective Date of Service: 03/22/22 Interval History: seen and examined this morning Follow-up for placement no new issues, still hoping to be discharged soon Review of Systems no sob no fever Physical Exam Vital Signs: Vital Signs: Last Vital Signs Temp 97.1 F 03/22/22 08:00 Pulse 66 03/22/22 08:00 Resp 18 03/22/22 08:00 BP 112/68 03/22/22 08:00 Pulse Ox 94 03/22/22 08:00 O2 Del Method 03/22/22 08:00 O2 Flow Rate 2 02/16/22 07:18 FiO2 94 02/13/22 15:38 BMI result Body Mass Index 21.8 Const: Other: General: AO X 2, no acute distress Resp: CTA bilateral CVS: S1,S2,RRR GI: +BS, NT, no distention Skin: No rash Neuro: motor grossly intact Psych: flat affect Objective Data Active Medications Acetaminophen (Acetaminophen 325 Mg Tablet) 650 mg PO Q6H PRN PRN Reason: Pain, Mild (Pain Scale 1-3) Atorvastatin Calcium (Atorvastatin Calcium 40 Mg Tablet) 40 mg PO DAILY [facility] Last Admin: 03/21/22 10:21 Dose: 40 mg Documented By: TODD Dextrose (Dextrose 50 % 25 Gm/50 Ml Syringe) 25 gm IVPUSH Q15M PRN; Protocol PRN Reason: per Hypoglycemia Standing Ord. Divalproex Sodium (Divalproex Sodium Er 250 Mg Tab.Er.24h) 250 mg PO DAILY@1700 [facility] Last Admin: 03/21/22 16:31 Dose: 250 mg Documented By: NATHAN Divalproex Sodium (Divalproex Sodium Er 500 Mg Tab.Er.24h) 500 mg PO DAILY [facility] Last Admin: 03/21/22 10:21 Dose: 500 mg Documented By: TODD Enoxaparin Sodium (Enoxaparin Sodium 40 Mg/0.4 Ml Syringe) 40 mg SUBCUT Q24H [facility] Last Admin: 03/21/22 22:05 Dose: Not Given Documented By: NATHAN Non-Admin Reason: Patient Refused Ferrous Sulfate (Ferrous Sulfate 324 Mg Tablet.) 324 mg PO BID [facility] Last Admin: 03/21/22 21:58 Dose: 324 mg Documented By: NATHAN Fluticasone Propionate (Fluticasone Propionate Nasal 16 Gm [place]) 1 spray NOSTRIL-B BID [facility] Last Admin: 03/21/22 22:03 Dose: Not Given Documented By: NATHAN Non-Admin Reason: Patient Refused Furosemide (Furosemide 40 Mg Tablet) 40 mg PO BID@0900,1800 [facility]; Protocol Last Admin: 03/21/22 18:36 Dose: 40 mg Documented By: NATHAN Glucose (Glucose Gel 15 Gm Gel..Gram.) 15 gm PO Q15M PRN; Protocol PRN Reason: per Hypoglycemia Standing Ord. Haloperidol (Haloperidol 5 Mg Tablet) 10 mg PO BID [facility] Last Admin: 03/21/22 21:58 Dose: 10 mg Documented By: NATHAN Insulin Glargine (Insulin Glargine,Hum.Rec.Anlog 100 Unit/Ml 10 Ml Vial) 10 unit SUBCUT BEDTIME [facility] Last Admin: 03/21/22 21:56 Dose: 10 unit Documented By: NATHAN Insulin Human Lispro (Insulin Lispro 100 Unit/Ml 3 Ml Vial) 0 unit SUBCUT QIDACHS [facility]; Protocol Last Admin: 03/22/22 08:49 Dose: Not Given Documented By: TODD Non-Admin Reason: No Insulin Coverage Melatonin (Melatonin 3 Mg Tablet) 6 mg PO BEDTIME PRN PRN Reason: Insomnia Last Admin: 03/12/22 20:30 Dose: 6 mg Documented By: EMELINA Metformin HCl (Metformin Hcl 500 Mg Tablet) 500 mg PO BIDWM [facility] Last Admin: 03/21/22 18:36 Dose: 500 mg Documented By: NATHAN Neomycin/Polymyxin/Hydrocortisone (Neomycin/Polymyxin/Hc Otic Melanie 10 Ml Drpbtl) 3 drop EAR-RIGHT QID [facility] Last Admin: 03/21/22 22:03 Dose: Not Given Documented By: NATHAN Non-Admin Reason: Patient Refused Olanzapine (Olanzapine Odt 10 Mg Tab.Rapdis) 5 mg TRANSLINGU BID PRN PRN Reason: agitation, psychosis Last Admin: 03/15/22 19:48 Dose: 5 mg Documented By: GENIE Omeprazole (Omeprazole 20 Mg Capsule.Dr) 20 mg PO DAILY@0630 [facility] Last Admin: 03/22/22 06:04 Dose: Not Given Documented By: KEVIN Non-Admin Reason: Patient Refused Senna (Sennosides 8.6 Mg Tablet) 17.2 mg PO BEDTIME PRN PRN Reason: Constipation Sildenafil Citrate (Sildenafil Citrate 20 Mg Tablet) 20 mg PO TID [facility] Last Admin: 03/21/22 21:58 Dose: 20 mg Documented By: NATHAN Sitagliptin Phosphate (Sitagliptin Phosphate 100 Mg Tablet) 100 mg PO DAILY [facility] Last Admin: 03/21/22 10:21 Dose: 100 mg Documented By: TODD Sodium Chloride (0.9 % Sodium Chloride Flush 3 Ml Syringe) 3 ml IVFLUSH QSHIFT [facility] Last Admin: 03/22/22 00:47 Dose: Not Given Documented By: KEVIN Non-Admin Reason: No Access Labs CBC & Chem 7: 01/16/22 05:35 03/19/22 07:46 Labs: Laboratory Results - last 24 hr 03/21/22 03/21/22 03/21/22 11:04 15:34 19:03 POC Glucose 200 H 183 H 163 H 03/22/22 07:20 POC Glucose 140 H Assessment and Plan (1) Pulmonary hypertension: Status: Acute Plan 61-year-old male with a past medical history of schizophrenia, CHF, asthma/COPD, diabetes, hyperlipidemia presented from the skilled nursing with a chief complaint of acute hypoxia. Noted to have following conditions Acute hypoxic respiratory failure on presentation suspected d/t COPD/asthma/CHF-- Resolved. Acute asthma/COPD: Patient has no formal diagnosis. Patient is supposed to be following up with pulmonology as outpatient. He had similar presentation in December 2021. continue bronchodilators No indication for steroids at this time Pulmonary HTN--Viagra, outpatient follow up Right heart failure: EF 55 to 60 no acute exacerbation continue oral Lasix 40 bid Diabetes/hyperglycemia: blood sugars in acceptable range continue lantus, SSI, metformin and Sitagliptin schizoaffective disorder: Continue home Depakote, haloperidol DVT prophylaxis: Lovenox Code status: Full code. Confirmed with the patient's guardian [employer] [employer] proxy invoked. Lacks capacity for medical decision, awaiting permanent placement need for inpatient : awaiting placement no change in care from prior encounter out of bed and to ambulate in [place] daily Quality Stroke Does the patient have a stroke diagnosis?: No VTE Prior VTE?: No VTE Risk Level:: Medical - moderate - high VTE Device Contraindication: Treatment Not Indicated VTE Drug Contraindication: N/A - Med Ordered
[2022-03-22] MEDS: Divalproex Sodium ER 500 MG TAB.ER.24H PO (10:16)
[2022-03-22] MEDS: metFORMIN HCl 500 MG TABLET PO ×2 (10:16→16:47)
[2022-03-22] MEDS: HaloperidoL 5 MG TABLET 10 MG PO ×2 (10:16→20:58)
[2022-03-22] MEDS: Atorvastatin Calcium 40 MG TABLET PO (10:16)
[2022-03-22] MEDS: SITagliptin Phosphate 100 MG TABLET PO (10:16)
[2022-03-22] MEDS: Ferrous Sulfate 324 MG TABLET.DR PO (10:16)
[2022-03-22] MEDS: Sildenafil Citrate 20 MG TABLET PO ×3 (10:16→20:57)
[2022-03-22] MEDS: Furosemide 40 MG TABLET PO ×2 (10:16→17:10)
[2022-03-22 11:15] LABS: Glucose, Whole Blood 168 mg/dL (60-115)
[2022-03-22 15:18] VITALS: BP 115/68; PULSE 76; RESP 18; TEMP 37.1; O2SAT 96
[2022-03-22 16:03] LABS: Glucose, Whole Blood 150 mg/dL (60-115)
[2022-03-22] MEDS: Divalproex Sodium ER 250 MG TAB.ER.24H PO (16:47)
[2022-03-22 20:18] LABS: Glucose, Whole Blood 152 mg/dL (60-115)
[2022-03-22] MEDS: Insulin Lispro 100 UNIT/ML 3 ML VIAL SUBCUT (20:53)
[2022-03-22] MEDS: Insulin Glargine,Hum.rec.anlog 100 UNIT/ML 10 ML VIAL 10 UNIT SUBCUT (20:54)
[2022-03-23] VITALS: BP 99/64; PULSE 64; RESP 17; TEMP 36.1; O2SAT 94
[2022-03-23 07:25] LABS: Glucose, Whole Blood 151 mg/dL (60-115)
[2022-03-23 08:00] VITALS: BP 108/68; PULSE 56; RESP 17; TEMP 36.4; O2SAT 94
[2022-03-23] MEDS: Divalproex Sodium ER 500 MG TAB.ER.24H PO (11:15)
[2022-03-23] MEDS: Sildenafil Citrate 20 MG TABLET PO ×2 (11:15→21:47)
[2022-03-23] MEDS: metFORMIN HCl 500 MG TABLET PO ×2 (11:16→17:59)
[2022-03-23] MEDS: Furosemide 40 MG TABLET PO ×2 (11:16→17:58)
[2022-03-23] MEDS: HaloperidoL 5 MG TABLET 10 MG PO ×2 (11:16→21:47)
[2022-03-23] MEDS: SITagliptin Phosphate 100 MG TABLET PO (11:16)
[2022-03-23] MEDS: Ferrous Sulfate 324 MG TABLET.DR PO ×2 (11:16→21:47)
[2022-03-23] MEDS: Atorvastatin Calcium 40 MG TABLET PO (11:16)
[2022-03-23 11:20] LABS: Glucose, Whole Blood 187 mg/dL (60-115)
--- NOTE | 2022-03-23 14:02 | HO.PM.IMPN ---
Subjective Subjective Date of Service: 03/23/22 Interval History: seen and examined this morning Follow-up for placement doing fine, no new issues Review of Systems no sob no fever Physical Exam Vital Signs: Vital Signs: Last Vital Signs Temp 97.5 F 03/23/22 08:00 Pulse 56 03/23/22 08:00 Resp 17 03/23/22 08:00 BP 108/68 03/23/22 08:00 Pulse Ox 94 03/23/22 08:00 O2 Del Method 03/23/22 08:00 O2 Flow Rate 2 02/16/22 07:18 FiO2 94 02/13/22 15:38 BMI result Body Mass Index 21.8 Const: Other: General: AO X 2, no acute distress Resp: CTA bilateral CVS: S1,S2,RRR GI: +BS, NT, no distention Skin: No rash Neuro: motor grossly intact Psych: flat affect Objective Data Active Medications Acetaminophen (Acetaminophen 325 Mg Tablet) 650 mg PO Q6H PRN PRN Reason: Pain, Mild (Pain Scale 1-3) Atorvastatin Calcium (Atorvastatin Calcium 40 Mg Tablet) 40 mg PO DAILY [facility] Last Admin: 03/23/22 11:16 Dose: 40 mg Documented By: TODD Dextrose (Dextrose 50 % 25 Gm/50 Ml Syringe) 25 gm IVPUSH Q15M PRN; Protocol PRN Reason: per Hypoglycemia Standing Ord. Divalproex Sodium (Divalproex Sodium Er 250 Mg Tab.Er.24h) 250 mg PO DAILY@1700 [facility] Last Admin: 03/22/22 16:47 Dose: 250 mg Documented By: NATHAN Divalproex Sodium (Divalproex Sodium Er 500 Mg Tab.Er.24h) 500 mg PO DAILY [facility] Last Admin: 03/23/22 11:15 Dose: 500 mg Documented By: TODD Enoxaparin Sodium (Enoxaparin Sodium 40 Mg/0.4 Ml Syringe) 40 mg SUBCUT Q24H [facility] Last Admin: 03/22/22 20:57 Dose: Not Given Documented By: NATHAN Non-Admin Reason: Patient Refused Ferrous Sulfate (Ferrous Sulfate 324 Mg Tablet.) 324 mg PO BID [facility] Last Admin: 03/23/22 11:16 Dose: 324 mg Documented By: TODD Fluticasone Propionate (Fluticasone Propionate Nasal 16 Gm [place]) 1 spray NOSTRIL-B BID [facility] Last Admin: 03/23/22 10:33 Dose: Not Given Documented By: TODD Non-Admin Reason: Patient Refused Furosemide (Furosemide 40 Mg Tablet) 40 mg PO BID@0900,1800 [facility]; Protocol Last Admin: 03/23/22 11:16 Dose: 40 mg Documented By: TODD Glucose (Glucose Gel 15 Gm Gel..Gram.) 15 gm PO Q15M PRN; Protocol PRN Reason: per Hypoglycemia Standing Ord. Haloperidol (Haloperidol 5 Mg Tablet) 10 mg PO BID [facility] Last Admin: 03/23/22 11:16 Dose: 10 mg Documented By: TODD Insulin Glargine (Insulin Glargine,Hum.Rec.Anlog 100 Unit/Ml 10 Ml Vial) 10 unit SUBCUT BEDTIME [facility] Last Admin: 03/22/22 20:54 Dose: 10 unit Documented By: NATHAN Insulin Human Lispro (Insulin Lispro 100 Unit/Ml 3 Ml Vial) 0 unit SUBCUT QIDACHS [facility]; Protocol Last Admin: 03/23/22 12:41 Dose: Not Given Documented By: TODD Non-Admin Reason: Patient Refused Melatonin (Melatonin 3 Mg Tablet) 6 mg PO BEDTIME PRN PRN Reason: Insomnia Last Admin: 03/12/22 20:30 Dose: 6 mg Documented By: EMELINA Metformin HCl (Metformin Hcl 500 Mg Tablet) 500 mg PO BIDWM [facility] Last Admin: 03/23/22 11:16 Dose: 500 mg Documented By: TODD Neomycin/Polymyxin/Hydrocortisone (Neomycin/Polymyxin/Hc Otic Melanie 10 Ml Drpbtl) 3 drop EAR-RIGHT QID [facility] Last Admin: 03/23/22 12:41 Dose: Not Given Documented By: TODD Non-Admin Reason: Patient Refused Olanzapine (Olanzapine Odt 10 Mg Tab.Rapdis) 5 mg TRANSLINGU BID PRN PRN Reason: agitation, psychosis Last Admin: 03/15/22 19:48 Dose: 5 mg Documented By: GENIE Omeprazole (Omeprazole 20 Mg Capsule.Dr) 20 mg PO DAILY@0630 [facility] Last Admin: 03/23/22 05:58 Dose: Not Given Documented By: KEVIN Non-Admin Reason: Patient Refused Senna (Sennosides 8.6 Mg Tablet) 17.2 mg PO BEDTIME PRN PRN Reason: Constipation Sildenafil Citrate (Sildenafil Citrate 20 Mg Tablet) 20 mg PO TID [facility] Last Admin: 03/23/22 11:15 Dose: 20 mg Documented By: TODD Sitagliptin Phosphate (Sitagliptin Phosphate 100 Mg Tablet) 100 mg PO DAILY [facility] Last Admin: 03/23/22 11:16 Dose: 100 mg Documented By: TODD Sodium Chloride (0.9 % Sodium Chloride Flush 3 Ml Syringe) 3 ml IVFLUSH QSHIFT [facility] Last Admin: 03/23/22 10:32 Dose: Not Given Documented By: TODD Non-Admin Reason: No Access Labs CBC & Chem 7: 01/16/22 05:35 03/19/22 07:46 Labs: Laboratory Results - last 24 hr 03/22/22 03/22/22 03/23/22 15:54 20:03 07:21 POC Glucose 150 H 152 H 151 H 03/23/22 11:09 POC Glucose 187 H Assessment and Plan (1) Pulmonary hypertension: Status: Acute Plan 61-year-old male with a past medical history of schizophrenia, CHF, asthma/COPD, diabetes, hyperlipidemia presented from the residential with a chief complaint of acute hypoxia. Noted to have following conditions Acute hypoxic respiratory failure on presentation suspected d/t COPD/asthma/CHF-- Resolved. Acute asthma/COPD: Patient has no formal diagnosis. Patient is supposed to be following up with pulmonology as outpatient. He had similar presentation in December 2021. continue bronchodilators No indication for steroids at this time Pulmonary HTN--Viagra, outpatient follow up Right heart failure: EF 55 to 60 no acute exacerbation continue oral Lasix 40 bid Diabetes/hyperglycemia: blood sugars in acceptable range continue lantus, SSI, metformin and Sitagliptin schizoaffective disorder: Continue home Depakote, haloperidol DVT prophylaxis: Lovenox Code status: Full code. Confirmed with the patient's guardian [employer] [employer] proxy invoked. Lacks capacity for medical decision, awaiting permanent placement need for inpatient : awaiting placement no change in care from prior encounter out of bed and to ambulate in [place] daily Quality Stroke Does the patient have a stroke diagnosis?: No VTE Prior VTE?: No VTE Risk Level:: Medical - moderate - high VTE Device Contraindication: Treatment Not Indicated VTE Drug Contraindication: N/A - Med Ordered
[2022-03-23 15:12] VITALS: BP 97/60; PULSE 77; RESP 17; TEMP 36.4; O2SAT 93
[2022-03-23 15:23] LABS: Glucose, Whole Blood 157 mg/dL (60-115)
--- NOTE | 2022-03-23 15:54 | MHC.CM.PN ---
EMR REVIEWED, PT REMAINS MEDICALLY CLEARED, PT REMAINS A BED SEARCH THOUGH OUT STATE, SNF REFERRAL UPDATED, NO BED OFFERS AT THIS TIME, CM WILL CONT TO MONITOR REFERRALS AND D/C NEEDS.
[2022-03-23] MEDS: Divalproex Sodium ER 250 MG TAB.ER.24H PO (17:59)
[2022-03-23 20:19] LABS: Glucose, Whole Blood 153 mg/dL (60-115)
[2022-03-24] VITALS: BP 93/63; PULSE 80; RESP 17; TEMP 36.4; O2SAT 96
[2022-03-24 07:18] VITALS: BP 109/65; PULSE 66; RESP 18; TEMP 36.4; O2SAT 93
[2022-03-24 08:26] LABS: Glucose, Whole Blood 149 mg/dL (60-115)
--- NOTE | 2022-03-24 08:51 | HO.PM.IMPN ---
Subjective Subjective Date of Service: 03/24/22 Interval History: seen and examined this morning Follow-up for placement Refusing sugar check and taking meds this morning, but after speaking to him he is now agreable Physical Exam Vital Signs: Vital Signs: Last Vital Signs Temp 97.5 F 03/24/22 07:18 Pulse 66 03/24/22 07:18 Resp 18 03/24/22 07:18 BP 109/65 03/24/22 07:18 Pulse Ox 93 03/24/22 07:18 O2 Del Method 03/24/22 07:18 O2 Flow Rate 2 02/16/22 07:18 FiO2 94 02/13/22 15:38 BMI result Body Mass Index 21.8 Const: Other: General: AO X 2, no acute distress Resp: CTA bilateral CVS: S1,S2,RRR GI: +BS, NT, no distention Skin: No rash Neuro: motor grossly intact Psych: flat affect Objective Data Active Medications Acetaminophen (Acetaminophen 325 Mg Tablet) 650 mg PO Q6H PRN PRN Reason: Pain, Mild (Pain Scale 1-3) Atorvastatin Calcium (Atorvastatin Calcium 40 Mg Tablet) 40 mg PO DAILY [facility] Last Admin: 03/23/22 11:16 Dose: 40 mg Documented By: TODD Dextrose (Dextrose 50 % 25 Gm/50 Ml Syringe) 25 gm IVPUSH Q15M PRN; Protocol PRN Reason: per Hypoglycemia Standing Ord. Divalproex Sodium (Divalproex Sodium Er 250 Mg Tab.Er.24h) 250 mg PO DAILY@1700 [facility] Last Admin: 03/23/22 17:59 Dose: 250 mg Documented By: NATHAN Divalproex Sodium (Divalproex Sodium Er 500 Mg Tab.Er.24h) 500 mg PO DAILY [facility] Last Admin: 03/23/22 11:15 Dose: 500 mg Documented By: TODD Enoxaparin Sodium (Enoxaparin Sodium 40 Mg/0.4 Ml Syringe) 40 mg SUBCUT Q24H [facility] Last Admin: 03/23/22 21:52 Dose: Not Given Documented By: NATHAN Non-Admin Reason: Patient Refused Ferrous Sulfate (Ferrous Sulfate 324 Mg Tablet.) 324 mg PO BID [facility] Last Admin: 03/23/22 21:47 Dose: 324 mg Documented By: NATHAN Fluticasone Propionate (Fluticasone Propionate Nasal 16 Gm [place]) 1 spray NOSTRIL-B BID [facility] Last Admin: 03/23/22 21:48 Dose: Not Given Documented By: NATHAN Non-Admin Reason: Patient Refused Furosemide (Furosemide 40 Mg Tablet) 40 mg PO BID@0900,1800 [facility]; Protocol Last Admin: 03/23/22 17:58 Dose: 40 mg Documented By: NATHAN Glucose (Glucose Gel 15 Gm Gel..Gram.) 15 gm PO Q15M PRN; Protocol PRN Reason: per Hypoglycemia Standing Ord. Haloperidol (Haloperidol 5 Mg Tablet) 10 mg PO BID [facility] Last Admin: 03/23/22 21:47 Dose: 10 mg Documented By: NATHAN Insulin Glargine (Insulin Glargine,Hum.Rec.Anlog 100 Unit/Ml 10 Ml Vial) 10 unit SUBCUT BEDTIME [facility] Last Admin: 03/23/22 21:52 Dose: Not Given Documented By: NATHAN Non-Admin Reason: Patient Refused Insulin Human Lispro (Insulin Lispro 100 Unit/Ml 3 Ml Vial) 0 unit SUBCUT QIDACHS [facility]; Protocol Last Admin: 03/24/22 08:37 Dose: Not Given Documented By: JOSR Non-Admin Reason: No Insulin Coverage Melatonin (Melatonin 3 Mg Tablet) 6 mg PO BEDTIME PRN PRN Reason: Insomnia Last Admin: 03/12/22 20:30 Dose: 6 mg Documented By: EMELINA Metformin HCl (Metformin Hcl 500 Mg Tablet) 500 mg PO BIDWM [facility] Last Admin: 03/23/22 17:59 Dose: 500 mg Documented By: NATHAN Neomycin/Polymyxin/Hydrocortisone (Neomycin/Polymyxin/Hc Otic Melanie 10 Ml Drpbtl) 3 drop EAR-RIGHT QID [facility] Last Admin: 03/23/22 21:48 Dose: Not Given Documented By: NATHAN Non-Admin Reason: Patient Refused Olanzapine (Olanzapine Odt 10 Mg Tab.Rapdis) 5 mg TRANSLINGU BID PRN PRN Reason: agitation, psychosis Last Admin: 03/15/22 19:48 Dose: 5 mg Documented By: GENIE Omeprazole (Omeprazole 20 Mg Capsule.Dr) 20 mg PO DAILY@0630 [facility] Last Admin: 03/24/22 05:32 Dose: Not Given Documented By: HO.SHERIDL Non-Admin Reason: Patient Refused Senna (Sennosides 8.6 Mg Tablet) 17.2 mg PO BEDTIME PRN PRN Reason: Constipation Sildenafil Citrate (Sildenafil Citrate 20 Mg Tablet) 20 mg PO TID [facility] Last Admin: 03/23/22 21:47 Dose: 20 mg Documented By: NATHAN Sitagliptin Phosphate (Sitagliptin Phosphate 100 Mg Tablet) 100 mg PO DAILY [facility] Last Admin: 03/23/22 11:16 Dose: 100 mg Documented By: TODD Sodium Chloride (0.9 % Sodium Chloride Flush 3 Ml Syringe) 3 ml IVFLUSH QSHIFT [facility] Last Admin: 03/24/22 08:38 Dose: Not Given Documented By: JOSR Non-Admin Reason: No Access Labs CBC & Chem 7: 01/16/22 05:35 03/19/22 07:46 Labs: Laboratory Results - last 24 hr 03/23/22 03/23/22 03/23/22 11:09 15:18 20:15 POC Glucose 187 H 157 H 153 H 03/24/22 08:22 POC Glucose 149 H Assessment and Plan (1) Pulmonary hypertension: Status: Acute Plan 61-year-old male with a past medical history of schizophrenia, CHF, asthma/COPD, diabetes, hyperlipidemia presented from the detention with a chief complaint of acute hypoxia. Noted to have following conditions Acute hypoxic respiratory failure on presentation suspected d/t COPD/asthma/CHF-- Resolved. Acute asthma/COPD: Patient has no formal diagnosis. Patient is supposed to be following up with pulmonology as outpatient. He had similar presentation in December 2021. continue bronchodilators No indication for steroids at this time Pulmonary HTN--Viagra, outpatient follow up Right heart failure: EF 55 to 60 no acute exacerbation continue oral Lasix 40 bid Diabetes/hyperglycemia: blood sugars in acceptable range continue lantus, SSI, metformin and Sitagliptin schizoaffective disorder: Continue home Depakote, haloperidol DVT prophylaxis: Lovenox Code status: Full code. Confirmed with the patient's guardian [employer] proxy invoked. Lacks capacity for medical decision, awaiting permanent placement need for inpatient : awaiting placement no change in care from prior encounter out of bed and to ambulate in [place] daily Quality Stroke Does the patient have a stroke diagnosis?: No VTE Prior VTE?: No VTE Risk Level:: Medical - moderate - high VTE Device Contraindication: Treatment Not Indicated VTE Drug Contraindication: N/A - Med Ordered
[2022-03-24] MEDS: Insulin Lispro 100 UNIT/ML 3 ML VIAL SUBCUT (11:40)
[2022-03-24] MEDS: HaloperidoL 5 MG TABLET 10 MG PO ×2 (11:41→19:34)
[2022-03-24] MEDS: Ferrous Sulfate 324 MG TABLET.DR PO ×2 (11:41→19:33)
[2022-03-24] MEDS: Furosemide 40 MG TABLET PO ×2 (11:41→17:25)
[2022-03-24] MEDS: Sildenafil Citrate 20 MG TABLET PO ×3 (11:41→19:34)
[2022-03-24] MEDS: Divalproex Sodium ER 500 MG TAB.ER.24H PO (11:42)
[2022-03-24] MEDS: Atorvastatin Calcium 40 MG TABLET PO (11:42)
[2022-03-24] MEDS: metFORMIN HCl 500 MG TABLET PO ×2 (11:42→17:25)
[2022-03-24] MEDS: SITagliptin Phosphate 100 MG TABLET PO (11:47)
[2022-03-24 11:48] LABS: Glucose, Whole Blood 187 mg/dL (60-115)
[2022-03-24 15:48] VITALS: BP 104/67; PULSE 70; RESP 17; TEMP 37.1; O2SAT 96
[2022-03-24 16:07] LABS: Glucose, Whole Blood 134 mg/dL (60-115)
[2022-03-24] MEDS: Divalproex Sodium ER 250 MG TAB.ER.24H PO (17:25)
[2022-03-24] MEDS: Insulin Glargine,Hum.rec.anlog 100 UNIT/ML 10 ML VIAL 10 UNIT SUBCUT (19:52)
[2022-03-24 19:55] LABS: Glucose, Whole Blood 167 mg/dL (60-115)
[2022-03-25] VITALS: BP 91/53; PULSE 60; RESP 17; TEMP 36.4; O2SAT 96
[2022-03-25 07:20] VITALS: BP 96/56; PULSE 69; RESP 18; TEMP 36.6; O2SAT 94
[2022-03-25 07:26] LABS: Glucose, Whole Blood 103 mg/dL (60-115)
[2022-03-25] MEDS: Atorvastatin Calcium 40 MG TABLET PO (09:25)
[2022-03-25] MEDS: Sildenafil Citrate 20 MG TABLET PO ×3 (09:25→19:54)
[2022-03-25] MEDS: metFORMIN HCl 500 MG TABLET PO ×2 (09:25→17:30)
[2022-03-25] MEDS: Omeprazole 20 MG CAPSULE.DR PO (09:25)
[2022-03-25] MEDS: Furosemide 40 MG TABLET PO ×2 (09:25→17:30)
[2022-03-25] MEDS: Divalproex Sodium ER 500 MG TAB.ER.24H PO (09:25)
[2022-03-25] MEDS: HaloperidoL 5 MG TABLET 10 MG PO ×2 (09:25→19:55)
[2022-03-25] MEDS: SITagliptin Phosphate 100 MG TABLET PO (09:25)
[2022-03-25] MEDS: Ferrous Sulfate 324 MG TABLET.DR PO ×2 (09:25→19:54)
--- NOTE | 2022-03-25 11:21 | HO.PM.IMPN ---
Subjective Subjective Date of Service: 03/25/22 Interval History: seen and examined this morning was resistant to care this morning, as he is upset about not being discharged but promised to take meds Review of Systems no sob no fever Physical Exam Vital Signs: Vital Signs: Last Vital Signs Temp 97.9 F 03/25/22 07:20 Pulse 69 03/25/22 07:20 Resp 18 03/25/22 07:20 BP 96/56 L 03/25/22 07:20 Pulse Ox 94 03/25/22 07:20 O2 Del Method 03/25/22 07:20 O2 Flow Rate 2 02/16/22 07:18 FiO2 94 02/13/22 15:38 BMI result Body Mass Index 21.8 Const: Other: General: AO X 2, no acute distress Resp: CTA bilateral CVS: S1,S2,RRR GI: +BS, NT, no distention Skin: No rash Neuro: motor grossly intact Psych: flat affect Objective Data Active Medications Acetaminophen (Acetaminophen 325 Mg Tablet) 650 mg PO Q6H PRN PRN Reason: Pain, Mild (Pain Scale 1-3) Atorvastatin Calcium (Atorvastatin Calcium 40 Mg Tablet) 40 mg PO DAILY [facility] Last Admin: 03/25/22 09:25 Dose: 40 mg Documented By: MARK Dextrose (Dextrose 50 % 25 Gm/50 Ml Syringe) 25 gm IVPUSH Q15M PRN; Protocol PRN Reason: per Hypoglycemia Standing Ord. Divalproex Sodium (Divalproex Sodium Er 250 Mg Tab.Er.24h) 250 mg PO DAILY@1700 [facility] Last Admin: 03/24/22 17:25 Dose: 250 mg Documented By: JOSR Divalproex Sodium (Divalproex Sodium Er 500 Mg Tab.Er.24h) 500 mg PO DAILY [facility] Last Admin: 03/25/22 09:25 Dose: 500 mg Documented By: MARK Enoxaparin Sodium (Enoxaparin Sodium 40 Mg/0.4 Ml Syringe) 40 mg SUBCUT Q24H [facility] Last Admin: 03/24/22 19:38 Dose: Not Given Documented By: ZAK Non-Admin Reason: Patient Refused Ferrous Sulfate (Ferrous Sulfate 324 Mg Tablet.) 324 mg PO BID [facility] Last Admin: 03/25/22 09:25 Dose: 324 mg Documented By: MARK Fluticasone Propionate (Fluticasone Propionate Nasal 16 Gm [place]) 1 spray NOSTRIL-B BID [facility] Last Admin: 03/25/22 09:25 Dose: Not Given Documented By: MARK Non-Admin Reason: Patient Refused Furosemide (Furosemide 40 Mg Tablet) 40 mg PO BID@0900,1800 [facility]; Protocol Last Admin: 03/25/22 09:25 Dose: 40 mg Documented By: MARK Glucose (Glucose Gel 15 Gm Gel..Gram.) 15 gm PO Q15M PRN; Protocol PRN Reason: per Hypoglycemia Standing Ord. Haloperidol (Haloperidol 5 Mg Tablet) 10 mg PO BID [facility] Last Admin: 03/25/22 09:25 Dose: 10 mg Documented By: MARK Insulin Glargine (Insulin Glargine,Hum.Rec.Anlog 100 Unit/Ml 10 Ml Vial) 10 unit SUBCUT BEDTIME [facility] Last Admin: 03/24/22 19:52 Dose: 10 unit Documented By: ZAK Insulin Human Lispro (Insulin Lispro 100 Unit/Ml 3 Ml Vial) 0 unit SUBCUT QIDACHS [facility]; Protocol Last Admin: 03/25/22 07:30 Dose: Not Given Documented By: MARK Non-Admin Reason: No Insulin Coverage Melatonin (Melatonin 3 Mg Tablet) 6 mg PO BEDTIME PRN PRN Reason: Insomnia Last Admin: 03/12/22 20:30 Dose: 6 mg Documented By: EMELINA Metformin HCl (Metformin Hcl 500 Mg Tablet) 500 mg PO BIDWM [facility] Last Admin: 03/25/22 09:25 Dose: 500 mg Documented By: MARK Neomycin/Polymyxin/Hydrocortisone (Neomycin/Polymyxin/Hc Otic Melanie 10 Ml Drpbtl) 3 drop EAR-RIGHT QID [facility] Last Admin: 03/25/22 09:25 Dose: Not Given Documented By: MARK Non-Admin Reason: Patient Refused Olanzapine (Olanzapine Odt 10 Mg Tab.Rapdis) 5 mg TRANSLINGU BID PRN PRN Reason: agitation, psychosis Last Admin: 03/15/22 19:48 Dose: 5 mg Documented By: GENIE Omeprazole (Omeprazole 20 Mg Capsule.Dr) 20 mg PO DAILY@0630 [facility] Last Admin: 03/25/22 09:25 Dose: 20 mg Documented By: MARK Senna (Sennosides 8.6 Mg Tablet) 17.2 mg PO BEDTIME PRN PRN Reason: Constipation Sildenafil Citrate (Sildenafil Citrate 20 Mg Tablet) 20 mg PO TID [facility] Last Admin: 03/25/22 09:25 Dose: 20 mg Documented By: MARK Sitagliptin Phosphate (Sitagliptin Phosphate 100 Mg Tablet) 100 mg PO DAILY [facility] Last Admin: 03/25/22 09:25 Dose: 100 mg Documented By: MARK Sodium Chloride (0.9 % Sodium Chloride Flush 3 Ml Syringe) 3 ml IVFLUSH QSHIFT [facility] Last Admin: 03/25/22 07:30 Dose: Not Given Documented By: MARK Non-Admin Reason: No Access Labs CBC & Chem 7: 01/16/22 05:35 03/19/22 07:46 Labs: Laboratory Results - last 24 hr 03/24/22 03/24/22 03/24/22 11:35 15:46 19:39 POC Glucose 187 H 134 H 167 H 03/25/22 07:19 POC Glucose 103 Assessment and Plan (1) Pulmonary hypertension: Status: Acute Plan 61-year-old male with a past medical history of schizophrenia, CHF, asthma/COPD, diabetes, hyperlipidemia presented from the [facility] with a chief complaint of acute hypoxia. Noted to have following conditions Acute hypoxic respiratory failure on presentation suspected d/t COPD/asthma/CHF-- Resolved. Acute asthma/COPD: Patient has no formal diagnosis. Patient is supposed to be following up with pulmonology as outpatient. He had similar presentation in December 2021. continue bronchodilators No indication for steroids at this time Pulmonary HTN--Viagra, outpatient follow up Right heart failure: EF 55 to 60 no acute exacerbation continue oral Lasix 40 bid Diabetes/hyperglycemia: blood sugars in acceptable range continue lantus, SSI, metformin and Sitagliptin schizoaffective disorder: Continue home Depakote, haloperidol DVT prophylaxis: Lovenox Code status: Full code. Confirmed with the patient's guardian [facility] proxy invoked. Lacks capacity for medical decision, awaiting permanent placement need for inpatient : awaiting placement no change in care from prior encounter out of bed and to ambulate in [place] several times/day Quality Stroke Does the patient have a stroke diagnosis?: No VTE Prior VTE?: No VTE Risk Level:: Medical - moderate - high VTE Device Contraindication: Treatment Not Indicated VTE Drug Contraindication: N/A - Med Ordered
[2022-03-25 11:26] LABS: Glucose, Whole Blood 153 mg/dL (60-115)
[2022-03-25] MEDS: Insulin Lispro 100 UNIT/ML 3 ML VIAL SUBCUT (12:08)
[2022-03-25 15:24] VITALS: BP 92/57; PULSE 95; RESP 20; TEMP 36.3; O2SAT 94
[2022-03-25 15:44] LABS: Glucose, Whole Blood 134 mg/dL (60-115)
[2022-03-25] MEDS: Divalproex Sodium ER 250 MG TAB.ER.24H PO (17:30)
[2022-03-25 19:35] LABS: Glucose, Whole Blood 177 mg/dL (60-115)
[2022-03-25] MEDS: Melatonin 3 MG TABLET 6 MG PO (19:55)
[2022-03-25] MEDS: Insulin Glargine,Hum.rec.anlog 100 UNIT/ML 10 ML VIAL 10 UNIT SUBCUT (19:55)
[2022-03-25 23:37] VITALS: BP 98/52; PULSE 78; RESP 16; TEMP 36.4; O2SAT 94
[2022-03-26 07:18] VITALS: BP 116/69; PULSE 57; RESP 18; TEMP 36.1; O2SAT 96
[2022-03-26 07:32] LABS: Glucose, Whole Blood 121 mg/dL (60-115)
--- NOTE | 2022-03-26 08:48 | HO.PM.IMPN ---
Subjective Subjective Date of Service: 03/26/22 Interval History: seen and examined this morning more cooperative this morning. no other issues Review of Systems no sob no fever Physical Exam Vital Signs: Vital Signs: Last Vital Signs Temp 96.9 F 03/26/22 07:18 Pulse 57 03/26/22 07:18 Resp 18 03/26/22 07:18 BP 116/69 03/26/22 07:18 Pulse Ox 96 03/26/22 07:18 O2 Del Method 03/26/22 07:18 O2 Flow Rate 2 02/16/22 07:18 FiO2 94 02/13/22 15:38 BMI result Body Mass Index 21.8 Const: Other: General: AO X 2, no acute distress Resp: CTA bilateral CVS: S1,S2,RRR GI: +BS, NT, no distention Skin: No rash Neuro: motor grossly intact Psych: flat affect Objective Data Active Medications Acetaminophen (Acetaminophen 325 Mg Tablet) 650 mg PO Q6H PRN PRN Reason: Pain, Mild (Pain Scale 1-3) Atorvastatin Calcium (Atorvastatin Calcium 40 Mg Tablet) 40 mg PO DAILY [facility] Last Admin: 03/25/22 09:25 Dose: 40 mg Documented By: MARK Dextrose (Dextrose 50 % 25 Gm/50 Ml Syringe) 25 gm IVPUSH Q15M PRN; Protocol PRN Reason: per Hypoglycemia Standing Ord. Divalproex Sodium (Divalproex Sodium Er 250 Mg Tab.Er.24h) 250 mg PO DAILY@1700 [facility] Last Admin: 03/25/22 17:30 Dose: 250 mg Documented By: MARK Divalproex Sodium (Divalproex Sodium Er 500 Mg Tab.Er.24h) 500 mg PO DAILY [facility] Last Admin: 03/25/22 09:25 Dose: 500 mg Documented By: MARK Enoxaparin Sodium (Enoxaparin Sodium 40 Mg/0.4 Ml Syringe) 40 mg SUBCUT Q24H [facility] Last Admin: 03/25/22 20:02 Dose: Not Given Documented By: EMELINA Non-Admin Reason: Patient Refused Ferrous Sulfate (Ferrous Sulfate 324 Mg Tablet.) 324 mg PO BID [facility] Last Admin: 03/25/22 19:54 Dose: 324 mg Documented By: EMELINA Fluticasone Propionate (Fluticasone Propionate Nasal 16 Gm [place]) 1 spray NOSTRIL-B BID [facility] Last Admin: 03/25/22 20:02 Dose: Not Given Documented By: EMELINA Non-Admin Reason: Patient Refused Furosemide (Furosemide 40 Mg Tablet) 40 mg PO BID@0900,1800 [facility]; Protocol Last Admin: 03/25/22 17:30 Dose: 40 mg Documented By: MARK Glucose (Glucose Gel 15 Gm Gel..Gram.) 15 gm PO Q15M PRN; Protocol PRN Reason: per Hypoglycemia Standing Ord. Haloperidol (Haloperidol 5 Mg Tablet) 10 mg PO BID [facility] Last Admin: 03/25/22 19:55 Dose: 10 mg Documented By: EMELINA Insulin Glargine (Insulin Glargine,Hum.Rec.Anlog 100 Unit/Ml 10 Ml Vial) 10 unit SUBCUT BEDTIME [facility] Last Admin: 03/25/22 19:55 Dose: 10 unit Documented By: EMELINA Insulin Human Lispro (Insulin Lispro 100 Unit/Ml 3 Ml Vial) 0 unit SUBCUT QIDACHS [facility]; Protocol Last Admin: 03/26/22 07:50 Dose: Not Given Documented By: TODD Non-Admin Reason: No Insulin Coverage Melatonin (Melatonin 3 Mg Tablet) 6 mg PO BEDTIME PRN PRN Reason: Insomnia Last Admin: 03/25/22 19:55 Dose: 6 mg Documented By: EMELINA Metformin HCl (Metformin Hcl 500 Mg Tablet) 500 mg PO BIDWM [facility] Last Admin: 03/25/22 17:30 Dose: 500 mg Documented By: MARK Neomycin/Polymyxin/Hydrocortisone (Neomycin/Polymyxin/Hc Otic Melanie 10 Ml Drpbtl) 3 drop EAR-RIGHT QID [facility] Last Admin: 03/25/22 20:03 Dose: Not Given Documented By: EMELINA Non-Admin Reason: Patient Refused Olanzapine (Olanzapine Odt 10 Mg Tab.Rapdis) 5 mg TRANSLINGU BID PRN PRN Reason: agitation, psychosis Last Admin: 03/15/22 19:48 Dose: 5 mg Documented By: GENIE Omeprazole (Omeprazole 20 Mg Capsule.Dr) 20 mg PO DAILY@0630 [facility] Last Admin: 03/26/22 05:49 Dose: Not Given Documented By: EMELINA Non-Admin Reason: Patient Refused Senna (Sennosides 8.6 Mg Tablet) 17.2 mg PO BEDTIME PRN PRN Reason: Constipation Sildenafil Citrate (Sildenafil Citrate 20 Mg Tablet) 20 mg PO TID [facility] Last Admin: 03/25/22 19:54 Dose: 20 mg Documented By: EMELINA Sitagliptin Phosphate (Sitagliptin Phosphate 100 Mg Tablet) 100 mg PO DAILY [facility] Last Admin: 03/25/22 09:25 Dose: 100 mg Documented By: MARK Sodium Chloride (0.9 % Sodium Chloride Flush 3 Ml Syringe) 3 ml IVFLUSH QSHIFT [facility] Last Admin: 03/25/22 20:02 Dose: Not Given Documented By: EMELINA Non-Admin Reason: No Access Labs CBC & Chem 7: 01/16/22 05:35 03/19/22 07:46 Labs: Laboratory Results - last 24 hr 03/25/22 03/25/22 03/25/22 11:19 15:40 19:29 POC Glucose 153 H 134 H 177 H 03/26/22 07:25 POC Glucose 121 H Assessment and Plan (1) Pulmonary hypertension: Status: Acute Plan 61-year-old male with a past medical history of schizophrenia, CHF, asthma/COPD, diabetes, hyperlipidemia [facility] with a chief complaint of acute hypoxia. Noted to have following conditions Acute hypoxic respiratory failure on presentation suspected d/t COPD/asthma/CHF-- Resolved. Acute asthma/COPD: Patient has no formal diagnosis. Patient is supposed to be following up with pulmonology as outpatient. He had similar presentation in December 2021. continue bronchodilators No indication for steroids at this time Pulmonary HTN--Viagra, outpatient follow up Right heart failure: EF 55 to 60 no acute exacerbation continue oral Lasix 40 bid Diabetes/hyperglycemia: blood sugars in acceptable range continue lantus, SSI, metformin and Sitagliptin schizoaffective disorder: Continue home Depakote, haloperidol DVT prophylaxis: Lovenox Code status: Full code. Confirmed with the patient's guardian [facility] proxy invoked. Lacks capacity for medical decision, awaiting permanent placement need for inpatient : awaiting placement no change in care from prior encounter out of bed and to ambulate in [place] several times/day Quality Stroke Does the patient have a stroke diagnosis?: No VTE Prior VTE?: No VTE Risk Level:: Medical - moderate - high VTE Device Contraindication: Treatment Not Indicated VTE Drug Contraindication: N/A - Med Ordered
[2022-03-26 11:33] LABS: Glucose, Whole Blood 131 mg/dL (60-115)
--- NOTE | 2022-03-26 12:48 | MHC.CM.PN ---
CM received a phone call from patient's [facility] [phone] requesting an update on the patient. She reports he is new to her caseload and Requested update. She was informed patient is medically ready for discharge; however, we have not had any bed offers. She was informed we have reached out of state as well. She reports they ([facility]) do not have an appropriate placement for him as he elopes even from their [place] [facility]. She is not sure if he is DM connected but will look into it as [facility] may also be able to provide some information on higher level of care places. She will also speak with [facility] c programmer about other placement options on their side. She will reach out again to see when she can come and meet with him.
[2022-03-26] MEDS: Sildenafil Citrate 20 MG TABLET PO ×2 (14:20→19:41)
--- NOTE | 2022-03-26 14:53 | PC.NURSE ---
Approached patient x 2 this shift to offer morning medications. Patient approached this RN in an aggressive/threatening manor, yelling at me to get out of room and slammed the door in my face. Refused all AM meds. Did take his afternoon sildenafil with sip of apple juice.
[2022-03-26 15:28] VITALS: BP 97/52; PULSE 78; RESP 18; TEMP 36.7; O2SAT 94
[2022-03-26 16:12] LABS: Glucose, Whole Blood 127 mg/dL (60-115)
[2022-03-26] MEDS: Furosemide 40 MG TABLET PO (16:56)
[2022-03-26] MEDS: Divalproex Sodium ER 250 MG TAB.ER.24H PO (16:56)
[2022-03-26] MEDS: metFORMIN HCl 500 MG TABLET PO (16:56)
[2022-03-26 19:15] LABS: Glucose, Whole Blood 199 mg/dL (60-115)
[2022-03-26] MEDS: HaloperidoL 5 MG TABLET 10 MG PO (19:41)
[2022-03-26] MEDS: Insulin Lispro 100 UNIT/ML 3 ML VIAL SUBCUT (19:42)
[2022-03-26] MEDS: Insulin Glargine,Hum.rec.anlog 100 UNIT/ML 10 ML VIAL 10 UNIT SUBCUT (19:42)
[2022-03-26] MEDS: Ferrous Sulfate 324 MG TABLET.DR PO (19:42)
[2022-03-26] MEDS: Melatonin 3 MG TABLET 6 MG PO (19:42)
[2022-03-27] VITALS: BP 104/64; PULSE 60; TEMP 36.6; O2SAT 95
[2022-03-27 07:21] VITALS: BP 110/74; PULSE 57; RESP 18; TEMP 36.2; O2SAT 94
[2022-03-27 07:29] LABS: Glucose, Whole Blood 126 mg/dL (60-115)
[2022-03-27] MEDS: HaloperidoL 5 MG TABLET 10 MG PO ×2 (08:52→19:19)
[2022-03-27 09:23] LABS: Creatinine Clr Calc Pharmacy 98.9; Estimated Glomerular Filt Rate > 60
[2022-03-27 11:33] LABS: Glucose, Whole Blood 124 mg/dL (60-115)
--- NOTE | 2022-03-27 13:20 | HO.PM.IMPN ---
Subjective Subjective Date of Service: 03/27/22 Interval History: Follow-up for placement, no acute issues overnight, offers no acute complaints Review of Systems [employer] no headache no dizziness CVS no chest pain, no shortness of breath Physical Exam Vital Signs: Vital Signs: Last Vital Signs Temp 97.1 F 03/27/22 07:21 Pulse 57 03/27/22 07:21 Resp 18 03/27/22 07:21 BP 110/74 03/27/22 07:21 Pulse Ox 94 03/27/22 07:21 O2 Del Method 03/27/22 07:21 O2 Flow Rate 2 02/16/22 07:18 FiO2 94 02/13/22 15:38 BMI result Body Mass Index 21.8 Const: Other: General: AO X 2, n o acute distress N eric no JVD Resp:? CTA bilateral CVS: S1,S2,RRR GI: +BS , NT, no distentio n Skin: No rash Ne uro:? motor grossl y intact Psych: fl at affect ? Objective Data Active Medications Acetaminophen (Acetaminophen 325 Mg Tablet) 650 mg PO Q6H PRN PRN Reason: Pain, Mild (Pain Scale 1-3) Atorvastatin Calcium (Atorvastatin Calcium 40 Mg Tablet) 40 mg PO DAILY [facility] Last Admin: 03/27/22 08:54 Dose: Not Given Documented By: LUCILA Non-Admin Reason: Patient Refused Dextrose (Dextrose 50 % 25 Gm/50 Ml Syringe) 25 gm IVPUSH Q15M PRN; Protocol PRN Reason: per Hypoglycemia Standing Ord. Divalproex Sodium (Divalproex Sodium Er 250 Mg Tab.Er.24h) 250 mg PO DAILY@1700 [facility] Last Admin: 03/26/22 16:56 Dose: 250 mg Documented By: DALILA Divalproex Sodium (Divalproex Sodium Er 500 Mg Tab.Er.24h) 500 mg PO DAILY [facility] Last Admin: 03/27/22 08:54 Dose: Not Given Documented By: LUCILA Non-Admin Reason: Patient Refused Enoxaparin Sodium (Enoxaparin Sodium 40 Mg/0.4 Ml Syringe) 40 mg SUBCUT Q24H [facility] Last Admin: 03/26/22 19:45 Dose: Not Given Documented By: ANA Non-Admin Reason: Patient Refused Ferrous Sulfate (Ferrous Sulfate 324 Mg Tablet.) 324 mg PO BID [facility] Last Admin: 03/27/22 08:54 Dose: Not Given Documented By: LUCILA Non-Admin Reason: Patient Refused Fluticasone Propionate (Fluticasone Propionate Nasal 16 Gm [place]) 1 spray NOSTRIL-B BID [facility] Last Admin: 03/27/22 08:54 Dose: Not Given Documented By: LUCILA Non-Admin Reason: Patient Refused Furosemide (Furosemide 40 Mg Tablet) 40 mg PO BID@0900,1800 [facility]; Protocol Last Admin: 03/27/22 08:54 Dose: Not Given Documented By: LUCILA Non-Admin Reason: Patient Refused Glucose (Glucose Gel 15 Gm Gel..Gram.) 15 gm PO Q15M PRN; Protocol PRN Reason: per Hypoglycemia Standing Ord. Haloperidol (Haloperidol 5 Mg Tablet) 10 mg PO BID [facility] Last Admin: 03/27/22 08:52 Dose: 10 mg Documented By: LUCILA Insulin Glargine (Insulin Glargine,Hum.Rec.Anlog 100 Unit/Ml 10 Ml Vial) 10 unit SUBCUT BEDTIME [facility] Last Admin: 03/26/22 19:42 Dose: 10 unit Documented By: ANA Insulin Human Lispro (Insulin Lispro 100 Unit/Ml 3 Ml Vial) 0 unit SUBCUT QIDACHS [facility]; Protocol Last Admin: 03/27/22 12:09 Dose: Not Given Documented By: LUCILA Non-Admin Reason: No Insulin Coverage Melatonin (Melatonin 3 Mg Tablet) 6 mg PO BEDTIME PRN PRN Reason: Insomnia Last Admin: 03/26/22 19:42 Dose: 6 mg Documented By: ANA Metformin HCl (Metformin Hcl 500 Mg Tablet) 500 mg PO BIDWM [facility] Last Admin: 03/27/22 08:53 Dose: Not Given Documented By: LUCILA Non-Admin Reason: Patient Refused Neomycin/Polymyxin/Hydrocortisone (Neomycin/Polymyxin/Hc Otic Melanie 10 Ml Drpbtl) 3 drop EAR-RIGHT QID [facility] Last Admin: 03/27/22 12:09 Dose: Not Given Documented By: LUCILA Non-Admin Reason: Patient Refused Olanzapine (Olanzapine Odt 10 Mg Tab.Rapdis) 5 mg TRANSLINGU BID PRN PRN Reason: agitation, psychosis Last Admin: 03/15/22 19:48 Dose: 5 mg Documented By: GENIE Omeprazole (Omeprazole 20 Mg Capsule.) 20 mg PO DAILY@0630 [facility] Last Admin: 03/27/22 06:29 Dose: Not Given Documented By: ANA Non-Admin Reason: Patient Refused Senna (Sennosides 8.6 Mg Tablet) 17.2 mg PO BEDTIME PRN PRN Reason: Constipation Sildenafil Citrate (Sildenafil Citrate 20 Mg Tablet) 20 mg PO TID [facility] Last Admin: 03/27/22 08:54 Dose: Not Given Documented By: LUCILA Non-Admin Reason: Patient Refused Sitagliptin Phosphate (Sitagliptin Phosphate 100 Mg Tablet) 100 mg PO DAILY [facility] Last Admin: 03/27/22 08:54 Dose: Not Given Documented By: LUCILA Non-Admin Reason: Patient Refused Sodium Chloride (0.9 % Sodium Chloride Flush 3 Ml Syringe) 3 ml IVFLUSH QSHIFT [facility] Last Admin: 03/27/22 07:20 Dose: Not Given Documented By: LUCILA Non-Admin Reason: No Access Labs CBC & Chem 7: 01/16/22 05:35 03/27/22 08:40 Labs: Laboratory Results - last 24 hr 03/26/22 03/26/22 03/27/22 15:33 19:06 07:24 Estim Creat Clear Calc Estimated GFR POC Glucose 127 H 199 H 126 H 03/27/22 03/27/22 08:40 11:28 Estim Creat Clear Calc 98.9 Estimated GFR > 60 POC Glucose 124 H Assessment and Plan (1) Pulmonary hypertension: Status: Acute Plan 61-year-old male with a past medical history of schizophrenia, CHF, asthma/COPD, diabetes, hyperlipidemia [facility] with [facility] chief [facility] of acute [facility]. Noted to have following conditions Acute hypoxic respiratory failure on presentation suspected d/t COPD/asthma/CHF-- Resolved. Acute asthma/COPD: Patient has no formal diagnosis. Patient is supposed to be following up with pulmonology as outpatient. He had similar presentation in December 2021. continue bronchodilators, no acute exacerbation Pulmonary HTN--Viagra, outpatient follow up Right heart failure: EF 55 to 60,no acute exacerbation, continue oral Lasix 40 bid Diabetes/hyperglycemia: blood sugars in acceptable range continue lantus, SSI, metformin and Sitagliptin schizoaffective disorder: Continue home Depakote, haloperidol DVT prophylaxis: Lovenox Code status: Full code. Confirmed with the patient's guardian [facility] proxy invoked. Lacks capacity for medical decision, awaiting permanent placement need for inpatient : awaiting placement out of bed and to ambulate in [place] several times/day Quality Stroke Does the patient have a stroke diagnosis?: No VTE Prior VTE?: No VTE Risk Level:: Medical - moderate - high VTE Device Contraindication: Treatment Not Indicated VTE Drug Contraindication: N/A - Med Ordered
[2022-03-27 19:16] LABS: Glucose, Whole Blood 155 mg/dL (60-115)
[2022-03-27] MEDS: Sildenafil Citrate 20 MG TABLET PO (19:19)
[2022-03-27] MEDS: Ferrous Sulfate 324 MG TABLET.DR PO (19:19)
[2022-03-27] MEDS: Insulin Glargine,Hum.rec.anlog 100 UNIT/ML 10 ML VIAL 10 UNIT SUBCUT (19:20)
[2022-03-28] VITALS: BP 102/71; PULSE 69; RESP 18; TEMP 36.4; O2SAT 96
[2022-03-28 07:15] VITALS: BP 116/62; PULSE 70; RESP 18; TEMP 36.4; O2SAT 93
[2022-03-28 07:43] LABS: Glucose, Whole Blood 129 mg/dL (60-115)
[2022-03-28] MEDS: Divalproex Sodium ER 500 MG TAB.ER.24H PO (08:08)
[2022-03-28] MEDS: Furosemide 40 MG TABLET PO (08:08)
[2022-03-28] MEDS: Sildenafil Citrate 20 MG TABLET PO ×2 (08:08→21:40)
[2022-03-28] MEDS: metFORMIN HCl 500 MG TABLET PO (08:08)
[2022-03-28] MEDS: Ferrous Sulfate 324 MG TABLET.DR PO ×2 (08:08→21:40)
[2022-03-28] MEDS: HaloperidoL 5 MG TABLET 10 MG PO ×2 (08:08→21:40)
[2022-03-28] MEDS: SITagliptin Phosphate 100 MG TABLET PO (08:08)
[2022-03-28] MEDS: Atorvastatin Calcium 40 MG TABLET PO (08:08)
[2022-03-28 10:54] LABS: Glucose, Whole Blood 125 mg/dL (60-115)
--- NOTE | 2022-03-28 11:18 | MHC.CM.PN ---
PATIENT IS MEDICALLY READY FOR DISCHARGE, HOWEVER, STILL WAITING FOR SAFE DISCHARGE/PLACEMENT. HCP INVOKED, HE'S UNABLE TO MAKE MEDICAL DECISIONS. GUARDIAN: ANDREW SLADE [phone]. SNF'S HAVE BEEN UPDATED.
--- NOTE | 2022-03-28 11:48 | HO.PM.IMPN ---
Subjective Subjective Date of Service: 03/28/22 Interval History: Follow-up for placement, no acute issues overnight, offers no acute complaints. 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 motor grossly intact Psych: flat affect ? Objective Data Active Medications Acetaminophen (Acetaminophen 325 Mg Tablet) 650 mg PO Q6H PRN PRN Reason: Pain, Mild (Pain Scale 1-3) Atorvastatin Calcium (Atorvastatin Calcium 40 Mg Tablet) 40 mg PO DAILY [facility] Last Admin: 03/28/22 08:08 Dose: 40 mg Documented By: BRENNON Dextrose (Dextrose 50 % 25 Gm/50 Ml Syringe) 25 gm IVPUSH Q15M PRN; Protocol PRN Reason: per Hypoglycemia Standing Ord. Divalproex Sodium (Divalproex Sodium Er 250 Mg Tab.Er.24h) 250 mg PO DAILY@1700 [facility] Last Admin: 03/27/22 15:59 Dose: Not Given Documented By: LUCILA Non-Admin Reason: Patient Refused Divalproex Sodium (Divalproex Sodium Er 500 Mg Tab.Er.24h) 500 mg PO DAILY [facility] Last Admin: 03/28/22 08:08 Dose: 500 mg Documented By: BRENNON Enoxaparin Sodium (Enoxaparin Sodium 40 Mg/0.4 Ml Syringe) 40 mg SUBCUT Q24H [facility] Last Admin: 03/27/22 19:24 Dose: Not Given Documented By: NELSY Non-Admin Reason: Patient Refused Ferrous Sulfate (Ferrous Sulfate 324 Mg Tablet.) 324 mg PO BID [facility] Last Admin: 03/28/22 08:08 Dose: 324 mg Documented By: BRENNON Fluticasone Propionate (Fluticasone Propionate Nasal 16 Gm [place]) 1 spray NOSTRIL-B BID [facility] Last Admin: 03/28/22 08:16 Dose: Not Given Documented By: BRENNON Non-Admin Reason: Patient Refused Furosemide (Furosemide 40 Mg Tablet) 40 mg PO BID@0900,1800 [facility]; Protocol Last Admin: 03/28/22 08:08 Dose: 40 mg Documented By: BRENNON Glucose (Glucose Gel 15 Gm Gel..Gram.) 15 gm PO Q15M PRN; Protocol PRN Reason: per Hypoglycemia Standing Ord. Haloperidol (Haloperidol 5 Mg Tablet) 10 mg PO BID [facility] Last Admin: 03/28/22 08:08 Dose: 10 mg Documented By: BRENNON Insulin Glargine (Insulin Glargine,Hum.Rec.Anlog 100 Unit/Ml 10 Ml Vial) 10 unit SUBCUT BEDTIME [facility] Last Admin: 03/27/22 19:20 Dose: 10 unit Documented By: NELSY Insulin Human Lispro (Insulin Lispro 100 Unit/Ml 3 Ml Vial) 0 unit SUBCUT QIDACHS [facility]; Protocol Last Admin: 03/28/22 10:59 Dose: Not Given Documented By: BRENNON Non-Admin Reason: No Insulin Coverage Melatonin (Melatonin 3 Mg Tablet) 6 mg PO BEDTIME PRN PRN Reason: Insomnia Last Admin: 03/26/22 19:42 Dose: 6 mg Documented By: AAN Metformin HCl (Metformin Hcl 500 Mg Tablet) 500 mg PO BIDWM [facility] Last Admin: 03/28/22 08:08 Dose: 500 mg Documented By: BRENNON Neomycin/Polymyxin/Hydrocortisone (Neomycin/Polymyxin/Hc Otic Melanie 10 Ml Drpbtl) 3 drop EAR-RIGHT QID [facility] Last Admin: 03/28/22 08:16 Dose: Not Given Documented By: BRENNON Non-Admin Reason: Patient Refused Olanzapine (Olanzapine Odt 10 Mg Tab.Rapdis) 5 mg TRANSLINGU BID PRN PRN Reason: agitation, psychosis Last Admin: 03/15/22 19:48 Dose: 5 mg Documented By: GENIE Omeprazole (Omeprazole 20 Mg Capsule.Dr) 20 mg PO DAILY@0630 [facility] Last Admin: 03/28/22 06:42 Dose: Not Given Documented By: NELSY Non-Admin Reason: Patient Refused Senna (Sennosides 8.6 Mg Tablet) 17.2 mg PO BEDTIME PRN PRN Reason: Constipation Sildenafil Citrate (Sildenafil Citrate 20 Mg Tablet) 20 mg PO TID [facility] Last Admin: 03/28/22 08:08 Dose: 20 mg Documented By: BRENNON Sitagliptin Phosphate (Sitagliptin Phosphate 100 Mg Tablet) 100 mg PO DAILY [facility] Last Admin: 03/28/22 08:08 Dose: 100 mg Documented By: BRENNON Sodium Chloride (0.9 % Sodium Chloride Flush 3 Ml Syringe) 3 ml IVFLUSH QSHIFT [facility] Last Admin: 03/28/22 08:05 Dose: Not Given Documented By: BRENNON Non-Admin Reason: No Access Labs CBC & Chem 7: 01/16/22 05:35 03/27/22 08:40 Labs: Laboratory Results - last 24 hr 03/27/22 03/28/22 03/28/22 19:11 07:14 10:44 POC Glucose 155 H 129 H 125 H Assessment and Plan (1) Pulmonary hypertension: Status: Acute Plan 61-year-old male with a past medical history of schizophrenia, CHF, asthma/COPD, diabetes, hyperlipidemia [facility] a chief complaint of acute hypoxia. Noted to have following conditions Acute hypoxic respiratory failure on presentation suspected d/t COPD/asthma/CHF-- Resolved, currently finger oximetry 93% on room. Acute asthma/COPD: Patient has no formal diagnosis. Patient is supposed to be following up with pulmonology as outpatient. He had similar presentation in December 2021. continue bronchodilators, no acute exacerbation Pulmonary HTN--Viagra, outpatient follow up Right heart failure: EF 55 to 60,no acute exacerbation, continue oral Lasix 40 bid Diabetes/hyperglycemia: blood sugars in acceptable range continue lantus, SSI, metformin and Sitagliptin schizoaffective disorder: Continue home Depakote, haloperidol DVT prophylaxis: Lovenox Code status: Full code. Confirmed with the patient's guardian [facility] proxy invoked. Lacks capacity for medical decision, awaiting permanent placement need for inpatient : awaiting placement out of bed and to ambulate in [place] several times/day Quality Stroke Does the patient have a stroke diagnosis?: No VTE Prior VTE?: No VTE Risk Level:: Medical - moderate - high VTE Device Contraindication: Treatment Not Indicated VTE Drug Contraindication: N/A - Med Ordered
[2022-03-28 15:18] VITALS: BP 100/62; PULSE 60; RESP 15; TEMP 36.7; O2SAT 93
[2022-03-28 15:29] LABS: Glucose, Whole Blood 207 mg/dL (60-115)
[2022-03-28 19:37] LABS: Glucose, Whole Blood 203 mg/dL (60-115)
[2022-03-28] MEDS: Insulin Glargine,Hum.rec.anlog 100 UNIT/ML 10 ML VIAL 10 UNIT SUBCUT (21:43)
[2022-03-28 23:56] VITALS: BP 90/66; PULSE 65; RESP 17; TEMP 36.4; O2SAT 95
--- NOTE | 2022-03-29 05:56 | PC.NURSE ---
Patient with systolic BP of 90 approx midnight. Patient asked twice before o230 for BP recheck and he refused. Asymptomatic.
[2022-03-29 07:22] VITALS: BP 106/72; PULSE 60; RESP 19; TEMP 36.9; O2SAT 95
[2022-03-29 07:32] LABS: Glucose, Whole Blood 102 mg/dL (60-115)
[2022-03-29] MEDS: Sildenafil Citrate 20 MG TABLET PO ×2 (07:42→19:45)
[2022-03-29] MEDS: Atorvastatin Calcium 40 MG TABLET PO (07:43)
[2022-03-29] MEDS: Divalproex Sodium ER 500 MG TAB.ER.24H PO (07:43)
[2022-03-29] MEDS: SITagliptin Phosphate 100 MG TABLET PO (07:43)
[2022-03-29] MEDS: Ferrous Sulfate 324 MG TABLET.DR PO ×2 (07:43→19:45)
[2022-03-29] MEDS: HaloperidoL 5 MG TABLET 10 MG PO ×2 (07:43→19:45)
[2022-03-29] MEDS: metFORMIN HCl 500 MG TABLET PO ×2 (07:43→18:02)
[2022-03-29 11:21] LABS: Glucose, Whole Blood 118 mg/dL (60-115)
--- NOTE | 2022-03-29 15:40 | MHC.CM.PN ---
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 SHE WILL RELATE TO HIM THAT OF YET NO BED OFFERS HAVE COME IN BUT WE CONTINUE TO UPDATE THE FACILITIES. THIS ORTHOPEDIC SURGEON CALLED HIS NEW CHD CM, KG, AT [phone] AND LEFT A DETAILED MESSAGE REQUESTING CALL BACK REGARDING A DATE AND TIME FOR HER TO COME MEET HIM. DOES HE HAVE A [facility]? REP PAYEE?
[2022-03-29 15:49] LABS: Glucose, Whole Blood 143 mg/dL (60-115)
--- NOTE | 2022-03-29 15:52 | HO.PM.IMPN ---
Subjective Subjective Date of Service: 03/29/22 Interval History: Seen and examined this morning Follow-up for placement Patient observed lying in bed comfortably. Offers no complaints. Wants to be discharged Reports he is eating okay and voiding without difficulty. Has no pain Review of Systems Review of Systems: Yes all other systems are reviewed and are negative Cardiovascular Cardiovascular: Denies chest pain Gastrointestinal Gastrointestinal: Denies abdominal pain Physical Exam Vital Signs: Vital Signs: Last Vital Signs Temp 98.4 F 03/29/22 07:22 Pulse 60 03/29/22 07:22 Resp 19 03/29/22 07:22 BP 106/72 03/29/22 07:22 Pulse Ox 95 03/29/22 07:22 O2 Del Method 03/29/22 07:22 O2 Flow Rate 2 02/16/22 07:18 FiO2 94 02/13/22 15:38 BMI result Body Mass Index 21.8 Const: General: comfortable, no acute distress, alert and awake Nutritional Appearance: average body habitus Resp: Effort & Inspection: normal respiratory effort, able to speak in complete sentences and not tachypneic Cardio: Rate: regular rate Heart sounds: S1 normal heart sound present and S2 normal heart sound present GI: Palpation (GI): Soft to palpation and nontender Extrem: General: Yes no pedal edema Objective Data Active Medications Acetaminophen (Acetaminophen 325 Mg Tablet) 650 mg PO Q6H PRN PRN Reason: Pain, Mild (Pain Scale 1-3) Atorvastatin Calcium (Atorvastatin Calcium 40 Mg Tablet) 40 mg PO DAILY [facility] Last Admin: 03/29/22 07:43 Dose: 40 mg Documented By: MANSOOR Dextrose (Dextrose 50 % 25 Gm/50 Ml Syringe) 25 gm IVPUSH Q15M PRN; Protocol PRN Reason: per Hypoglycemia Standing Ord. Divalproex Sodium (Divalproex Sodium Er 250 Mg Tab.Er.24h) 250 mg PO DAILY@1700 [facility] Last Admin: 03/28/22 16:33 Dose: Not Given Documented By: BRENNON Non-Admin Reason: Patient Refused Divalproex Sodium (Divalproex Sodium Er 500 Mg Tab.Er.24h) 500 mg PO DAILY [facility] Last Admin: 03/29/22 07:43 Dose: 500 mg Documented By: MANSOOR Enoxaparin Sodium (Enoxaparin Sodium 40 Mg/0.4 Ml Syringe) 40 mg SUBCUT Q24H [facility] Last Admin: 03/28/22 21:45 Dose: Not Given Documented By: ARTIS Non-Admin Reason: Patient Refused Ferrous Sulfate (Ferrous Sulfate 324 Mg Tablet.Dr) 324 mg PO BID [facility] Last Admin: 03/29/22 07:43 Dose: 324 mg Documented By: MANSOOR Fluticasone Propionate (Fluticasone Propionate Nasal 16 Gm [place]) 1 spray NOSTRIL-B BID [facility] Last Admin: 03/29/22 07:44 Dose: Not Given Documented By: MANSOOR Non-Admin Reason: does not use it Furosemide (Furosemide 40 Mg Tablet) 40 mg PO BID@0900,1800 [facility]; Protocol Last Admin: 03/29/22 07:44 Dose: Not Given Documented By: MANSOOR Non-Yasmani Reason: Decreased Blood Pressure Glucose (Glucose Gel 15 Gm Gel..Gram.) 15 gm PO Q15M PRN; Protocol PRN Reason: per Hypoglycemia Standing Ord. Haloperidol (Haloperidol 5 Mg Tablet) 10 mg PO BID [facility] Last Admin: 03/29/22 07:43 Dose: 10 mg Documented By: MANSOOR Insulin Glargine (Insulin Glargine,Hum.Rec.Anlog 100 Unit/Ml 10 Ml Vial) 10 unit SUBCUT BEDTIME [facility] Last Admin: 03/28/22 21:43 Dose: 10 unit Documented By: ARTIS Insulin Human Lispro (Insulin Lispro 100 Unit/Ml 3 Ml Vial) 0 unit SUBCUT QIDACHS [facility]; Protocol Last Admin: 03/29/22 11:31 Dose: Not Given Documented By: MANSOOR Non-Admin Reason: No Insulin Coverage Melatonin (Melatonin 3 Mg Tablet) 6 mg PO BEDTIME PRN PRN Reason: Insomnia Last Admin: 03/26/22 19:42 Dose: 6 mg Documented By: ANA Metformin HCl (Metformin Hcl 500 Mg Tablet) 500 mg PO BIDWM [facility] Last Admin: 03/29/22 07:43 Dose: 500 mg Documented By: MANSOOR Neomycin/Polymyxin/Hydrocortisone (Neomycin/Polymyxin/Hc Otic Melanie 10 Ml Drpbtl) 3 drop EAR-RIGHT QID [facility] Last Admin: 03/29/22 11:31 Dose: Not Given Documented By: MANSOOR Non-Admin Reason: Patient Refused Olanzapine (Olanzapine Odt 10 Mg Tab.Rapdis) 5 mg TRANSLINGU BID PRN PRN Reason: agitation, psychosis Last Admin: 03/15/22 19:48 Dose: 5 mg Documented By: GENIE Omeprazole (Omeprazole 20 Mg Capsule.) 20 mg PO DAILY@0630 [facility] Last Admin: 03/29/22 05:56 Dose: Not Given Documented By: LOGAN Non-Admin Reason: Patient Refused Senna (Sennosides 8.6 Mg Tablet) 17.2 mg PO BEDTIME PRN PRN Reason: Constipation Sildenafil Citrate (Sildenafil Citrate 20 Mg Tablet) 20 mg PO TID [facility] Last Admin: 03/29/22 14:32 Dose: Not Given Documented By: MANSOOR Non-Admin Reason: Patient Refused Sitagliptin Phosphate (Sitagliptin Phosphate 100 Mg Tablet) 100 mg PO DAILY [facility] Last Admin: 03/29/22 07:43 Dose: 100 mg Documented By: MANSOOR Sodium Chloride (0.9 % Sodium Chloride Flush 3 Ml Syringe) 3 ml IVFLUSH QSHIFT [facility] Last Admin: 03/29/22 14:33 Dose: Not Given Documented By: MANSOOR Non-Admin Reason: No Access Labs CBC & Chem 7: 01/16/22 05:35 03/27/22 08:40 Labs: Laboratory Results - last 24 hr 03/28/22 03/29/22 03/29/22 19:24 07:27 11:15 POC Glucose 203 H 102 118 H 03/29/22 15:14 POC Glucose 143 H Assessment and Plan (1) Pulmonary hypertension: Status: Acute Plan 61-year-old male with a past medical history of schizophrenia, CHF, asthma/COPD, diabetes, hyperlipidemia [place] [facility] with a chief complaint of acute hypoxia. Noted to have following conditions Acute hypoxic respiratory failure on presentation suspected d/t COPD/asthma/CHF-- Resolved, currently finger oximetry 93% on room. Acute asthma/COPD: Patient has no formal diagnosis. Patient is supposed to be following up with pulmonology as outpatient. He had similar presentation in December 2021. continue bronchodilators, no acute exacerbation Pulmonary HTN--Viagra, outpatient follow up Right heart failure: EF 55 to 60,no acute exacerbation, continue oral Lasix 40 bid Diabetes/hyperglycemia: blood sugars in acceptable range continue lantus, SSI, metformin and Sitagliptin schizoaffective disorder: Continue home Depakote, haloperidol DVT prophylaxis: Lovenox Code status: Full code. Confirmed with the patient's guardian [facility] proxy invoked. Lacks capacity for medical decision, awaiting permanent placement need for inpatient : awaiting placement attending - dr. tarango out of bed and to ambulate in [place] several times/day Quality Stroke Does the patient have a stroke diagnosis?: No VTE Prior VTE?: No VTE Risk Level:: Medical - moderate - high VTE Device Contraindication: Treatment Not Indicated VTE Drug Contraindication: N/A - Med Ordered
[2022-03-29 16:00] VITALS: BP 102/66; PULSE 77; RESP 16; TEMP 36.4; O2SAT 95
[2022-03-29] MEDS: Furosemide 40 MG TABLET PO (18:02)
[2022-03-29] MEDS: Divalproex Sodium ER 250 MG TAB.ER.24H PO (18:02)
[2022-03-29 19:15] LABS: Glucose, Whole Blood 157 mg/dL (60-115)
[2022-03-29] MEDS: Insulin Glargine,Hum.rec.anlog 100 UNIT/ML 10 ML VIAL 10 UNIT SUBCUT (19:46)
[2022-03-29 23:59] VITALS: BP 102/66; PULSE 67; RESP 17; TEMP 36.3; O2SAT 94
[2022-03-30 07:30] VITALS: BP 106/65; PULSE 72; RESP 18; TEMP 36.6; O2SAT 94
[2022-03-30 07:30] LABS: Glucose, Whole Blood 136 mg/dL (60-115)
[2022-03-30] MEDS: Furosemide 40 MG TABLET PO ×2 (07:58→16:49)
[2022-03-30] MEDS: Sildenafil Citrate 20 MG TABLET PO ×2 (07:58→21:04)
[2022-03-30] MEDS: SITagliptin Phosphate 100 MG TABLET PO (07:58)
[2022-03-30] MEDS: metFORMIN HCl 500 MG TABLET PO ×2 (07:58→16:49)
[2022-03-30] MEDS: Ferrous Sulfate 324 MG TABLET.DR PO ×2 (07:58→21:04)
[2022-03-30] MEDS: HaloperidoL 5 MG TABLET 10 MG PO ×2 (07:58→21:03)
[2022-03-30] MEDS: Divalproex Sodium ER 500 MG TAB.ER.24H PO (07:58)
[2022-03-30] MEDS: Atorvastatin Calcium 40 MG TABLET PO (07:58)
[2022-03-30 11:57] LABS: Glucose, Whole Blood 142 mg/dL (60-115)
--- NOTE | 2022-03-30 14:01 | HO.PM.IMPN ---
Subjective Subjective Date of Service: 03/30/22 Interval History: seen and examined this morning follow up for placement No overnight events. No specific complaints this morning. Feeling well, no specific complaints. Tolerating diet, voiding without difficulty Review of Systems Review of Systems: Yes all other systems are reviewed and are negative Constitutional Constitutional: Denies chills and Denies fever(s) ENT Ears, Nose, Mouth, and Throat: Denies dizziness Cardiovascular Cardiovascular: Denies chest pain, Denies palpitations and Denies dyspnea Respiratory Respiratory: Denies cough and Denies dyspnea Gastrointestinal Gastrointestinal: Denies abdominal pain, Denies nausea and Denies vomiting Neurologic Neurologic: Denies dizziness Endocrine Endocrine: Denies palpitations Physical Exam Vital Signs: Vital Signs: Last Vital Signs Temp 97.8 F 03/30/22 07:30 Pulse 72 03/30/22 07:30 Resp 18 03/30/22 07:30 BP 106/65 03/30/22 07:30 Pulse Ox 94 03/30/22 07:30 O2 Del Method 03/30/22 07:30 O2 Flow Rate 2 02/16/22 07:18 FiO2 94 02/13/22 15:38 BMI result Body Mass Index 21.8 Const: General: comfortable, no acute distress, alert and awake Nutritional Appearance: average body habitus Resp: Effort & Inspection: normal respiratory effort and able to speak in complete sentences Cardio: Rate: regular rate Heart sounds: S1 normal heart sound present and S2 normal heart sound present GI: Palpation (GI): Soft to palpation and nontender Extrem: General: Yes no pedal edema Objective Data Active Medications Acetaminophen (Acetaminophen 325 Mg Tablet) 650 mg PO Q6H PRN PRN Reason: Pain, Mild (Pain Scale 1-3) Atorvastatin Calcium (Atorvastatin Calcium 40 Mg Tablet) 40 mg PO DAILY [facility] Last Admin: 03/30/22 07:58 Dose: 40 mg Documented By: MANSOOR Dextrose (Dextrose 50 % 25 Gm/50 Ml Syringe) 25 gm IVPUSH Q15M PRN; Protocol PRN Reason: per Hypoglycemia Standing Ord. Divalproex Sodium (Divalproex Sodium Er 250 Mg Tab.Er.24h) 250 mg PO DAILY@1700 [facility] Last Admin: 03/29/22 18:02 Dose: 250 mg Documented By: MANSOOR Divalproex Sodium (Divalproex Sodium Er 500 Mg Tab.Er.24h) 500 mg PO DAILY [facility] Last Admin: 03/30/22 07:58 Dose: 500 mg Documented By: MANSOOR Enoxaparin Sodium (Enoxaparin Sodium 40 Mg/0.4 Ml Syringe) 40 mg SUBCUT Q24H [facility] Last Admin: 03/29/22 19:47 Dose: Not Given Documented By: SAVAGE Non-Admin Reason: Patient Refused Ferrous Sulfate (Ferrous Sulfate 324 Mg Tablet.Dr) 324 mg PO BID [facility] Last Admin: 03/30/22 07:58 Dose: 324 mg Documented By: MANSOOR Fluticasone Propionate (Fluticasone Propionate Nasal 16 Gm [place]) 1 spray NOSTRIL-B BID [facility] Last Admin: 03/30/22 07:59 Dose: Not Given Documented By: MANSOOR Non-Admin Reason: does not take it Furosemide (Furosemide 40 Mg Tablet) 40 mg PO BID@0900,1800 [facility]; Protocol Last Admin: 03/30/22 07:58 Dose: 40 mg Documented By: MANSOOR Glucose (Glucose Gel 15 Gm Gel..Gram.) 15 gm PO Q15M PRN; Protocol PRN Reason: per Hypoglycemia Standing Ord. Haloperidol (Haloperidol 5 Mg Tablet) 10 mg PO BID [facility] Last Admin: 03/30/22 07:58 Dose: 10 mg Documented By: MANSOOR Insulin Glargine (Insulin Glargine,Hum.Rec.Anlog 100 Unit/Ml 10 Ml Vial) 10 unit SUBCUT BEDTIME [facility] Last Admin: 03/29/22 19:46 Dose: 10 unit Documented By: SAVAGE Insulin Human Lispro (Insulin Lispro 100 Unit/Ml 3 Ml Vial) 0 unit SUBCUT QIDACHS [facility]; Protocol Last Admin: 03/30/22 12:01 Dose: Not Given Documented By: MANSOOR Non-Admin Reason: No Insulin Coverage Melatonin (Melatonin 3 Mg Tablet) 6 mg PO BEDTIME PRN PRN Reason: Insomnia Last Admin: 03/26/22 19:42 Dose: 6 mg Documented By: ANA Metformin HCl (Metformin Hcl 500 Mg Tablet) 500 mg PO BIDWM [facility] Last Admin: 03/30/22 07:58 Dose: 500 mg Documented By: MANSOOR Neomycin/Polymyxin/Hydrocortisone (Neomycin/Polymyxin/Hc Otic Melanie 10 Ml Drpbtl) 3 drop EAR-RIGHT QID [facility] Last Admin: 03/30/22 13:40 Dose: Not Given Documented By: MANSOOR Non-Admin Reason: does not take Olanzapine (Olanzapine Odt 10 Mg Tab.Rapdis) 5 mg TRANSLINGU BID PRN PRN Reason: agitation, psychosis Last Admin: 03/15/22 19:48 Dose: 5 mg Documented By: GENIE Omeprazole (Omeprazole 20 Mg Capsule.Dr) 20 mg PO DAILY@0630 [facility] Last Admin: 03/30/22 05:49 Dose: Not Given Documented By: NICRISM Non-Admin Reason: Patient Refused Senna (Sennosides 8.6 Mg Tablet) 17.2 mg PO BEDTIME PRN PRN Reason: Constipation Sildenafil Citrate (Sildenafil Citrate 20 Mg Tablet) 20 mg PO TID [facility] Last Admin: 03/30/22 07:58 Dose: 20 mg Documented By: MANSOOR Sitagliptin Phosphate (Sitagliptin Phosphate 100 Mg Tablet) 100 mg PO DAILY [facility] Last Admin: 03/30/22 07:58 Dose: 100 mg Documented By: MANSOOR Sodium Chloride (0.9 % Sodium Chloride Flush 3 Ml Syringe) 3 ml IVFLUSH QSHIFT [facility] Last Admin: 03/30/22 07:27 Dose: Not Given Documented By: MANSOOR Non-Admin Reason: No Access Labs CBC & Chem 7: 01/16/22 05:35 03/27/22 08:40 Labs: Laboratory Results - last 24 hr 03/29/22 03/29/22 03/30/22 15:14 19:09 07:17 POC Glucose 143 H 157 H 136 H 03/30/22 11:52 POC Glucose 142 H Assessment and Plan (1) Pulmonary hypertension: Status: Acute Plan 61-year-old male with a past medical history of schizophrenia, CHF, asthma/COPD, diabetes, hyperlipidemia presented from the nursing home with a chief complaint of acute hypoxia. Noted to have following conditions Acute hypoxic respiratory failure on presentation suspected d/t COPD/asthma/CHF-- Resolved, currently finger oximetry 93% on room. Acute asthma/COPD: Patient has no formal diagnosis. Patient is supposed to be following up with pulmonology as outpatient. He had similar presentation in December 2021. continue bronchodilators, no acute exacerbation Pulmonary HTN--Viagra, outpatient follow up Right heart failure: EF 55 to 60,no acute exacerbation, continue oral Lasix 40 bid Diabetes/hyperglycemia: blood sugars in acceptable range continue lantus, SSI, metformin and Sitagliptin schizoaffective disorder: Continue home Depakote, haloperidol DVT prophylaxis: Lovenox Code status: Full code. Confirmed with the patient's guardian [facility] proxy invoked. Lacks capacity for medical decision, awaiting permanent placement need for inpatient : awaiting placement attending - dr. tarango out of bed and to ambulate in [place] several times/day Quality Stroke Does the patient have a stroke diagnosis?: No VTE Prior VTE?: No VTE Risk Level:: Medical - moderate - high VTE Device Contraindication: Treatment Not Indicated VTE Drug Contraindication: N/A - Med Ordered
[2022-03-30 15:58] VITALS: BP 103/64; PULSE 73; RESP 18; TEMP 36.6; O2SAT 94
[2022-03-30 16:28] LABS: Glucose, Whole Blood 202 mg/dL (60-115)
[2022-03-30] MEDS: Divalproex Sodium ER 250 MG TAB.ER.24H PO (16:48)
[2022-03-30] MEDS: Insulin Lispro 100 UNIT/ML 3 ML VIAL SUBCUT (16:49)
[2022-03-30 19:43] LABS: Glucose, Whole Blood 99 mg/dL (60-115)
[2022-03-30] MEDS: Insulin Glargine,Hum.rec.anlog 100 UNIT/ML 10 ML VIAL 10 UNIT SUBCUT (21:04)
[2022-03-30 23:38] VITALS: BP 90/64; PULSE 70; RESP 17; TEMP 36.5; O2SAT 92
[2022-03-31 07:48] LABS: Glucose, Whole Blood 146 mg/dL (60-115)
[2022-03-31 08:00] VITALS: BP 109/67; PULSE 74; RESP 14; TEMP 36.3; O2SAT 93
[2022-03-31 11:41] LABS: Glucose, Whole Blood 269 mg/dL (60-115)
--- NOTE | 2022-03-31 13:27 | HO.PM.IMPN ---
Subjective Subjective Date of Service: 03/31/22 Interval History: seen and examined this morning follow up for placement No overnight events No specific complaints this morning. Cooperative today and overall feeling well Review of Systems Review of Systems: Yes all other systems are reviewed and are negative Constitutional Constitutional: Denies chills and Denies fever(s) Cardiovascular Cardiovascular: Denies chest pain Gastrointestinal Gastrointestinal: Denies abdominal pain Physical Exam Vital Signs: Vital Signs: Last Vital Signs Temp 97.3 F 03/31/22 08:00 Pulse 74 03/31/22 08:00 Resp 14 03/31/22 08:00 BP 109/67 03/31/22 08:00 Pulse Ox 93 03/31/22 08:00 O2 Del Method 03/31/22 08:00 O2 Flow Rate 2 02/16/22 07:18 FiO2 94 02/13/22 15:38 BMI result Body Mass Index 21.8 Const: General: comfortable, no acute distress, alert and awake Nutritional Appearance: average body habitus Resp: Effort & Inspection: normal respiratory effort and able to speak in complete sentences Cardio: Rate: regular rate Heart sounds: S1 normal heart sound present and S2 normal heart sound present GI: Palpation (GI): Soft to palpation and nontender Extrem: General: Yes no pedal edema Objective Data Active Medications Acetaminophen (Acetaminophen 325 Mg Tablet) 650 mg PO Q6H PRN PRN Reason: Pain, Mild (Pain Scale 1-3) Atorvastatin Calcium (Atorvastatin Calcium 40 Mg Tablet) 40 mg PO DAILY [facility] Last Admin: 03/31/22 08:52 Dose: Not Given Documented By: TARIQ Non-Admin Reason: Patient Refused Dextrose (Dextrose 50 % 25 Gm/50 Ml Syringe) 25 gm IVPUSH Q15M PRN; Protocol PRN Reason: per Hypoglycemia Standing Ord. Divalproex Sodium (Divalproex Sodium Er 250 Mg Tab.Er.24h) 250 mg PO DAILY@1700 [facility] Last Admin: 03/30/22 16:48 Dose: 250 mg Documented By: MANSOOR Divalproex Sodium (Divalproex Sodium Er 500 Mg Tab.Er.24h) 500 mg PO DAILY [facility] Last Admin: 03/31/22 08:52 Dose: Not Given Documented By: TARIQ Non-Admin Reason: Patient Refused Enoxaparin Sodium (Enoxaparin Sodium 40 Mg/0.4 Ml Syringe) 40 mg SUBCUT Q24H [facility] Last Admin: 03/30/22 21:03 Dose: Not Given Documented By: EMELINA Non-Admin Reason: Patient Refused Ferrous Sulfate (Ferrous Sulfate 324 Mg Tablet.Dr) 324 mg PO BID [facility] Last Admin: 03/31/22 08:53 Dose: Not Given Documented By: TARIQ Non-Admin Reason: Patient Refused Fluticasone Propionate (Fluticasone Propionate Nasal 16 Gm [place]) 1 spray NOSTRIL-B BID [facility] Last Admin: 03/31/22 08:53 Dose: Not Given Documented By: TARIQ Non-Admin Reason: Patient Refused Furosemide (Furosemide 40 Mg Tablet) 40 mg PO BID@0900,1800 [facility]; Protocol Last Admin: 03/31/22 08:53 Dose: Not Given Documented By: TARIQ Non-Admin Reason: Patient Refused Glucose (Glucose Gel 15 Gm Gel..Gram.) 15 gm PO Q15M PRN; Protocol PRN Reason: per Hypoglycemia Standing Ord. Haloperidol (Haloperidol 5 Mg Tablet) 10 mg PO BID [facility] Last Admin: 03/31/22 08:53 Dose: Not Given Documented By: TARIQ Non-Admin Reason: Patient Refused Insulin Glargine (Insulin Glargine,Hum.Rec.Anlog 100 Unit/Ml 10 Ml Vial) 10 unit SUBCUT BEDTIME [facility] Last Admin: 03/30/22 21:04 Dose: 10 unit Documented By: EMELINA Insulin Human Lispro (Insulin Lispro 100 Unit/Ml 3 Ml Vial) 0 unit SUBCUT QIDACHS [facility]; Protocol Last Admin: 03/31/22 12:31 Dose: Not Given Documented By: TARIQ Non-Admin Reason: Patient Refused Melatonin (Melatonin 3 Mg Tablet) 6 mg PO BEDTIME PRN PRN Reason: Insomnia Last Admin: 03/26/22 19:42 Dose: 6 mg Documented By: ANA Metformin HCl (Metformin Hcl 500 Mg Tablet) 500 mg PO BIDWM [facility] Last Admin: 03/31/22 08:52 Dose: Not Given Documented By: TARIQ Non-Admin Reason: Patient Refused Neomycin/Polymyxin/Hydrocortisone (Neomycin/Polymyxin/Hc Otic Melanie 10 Ml Drpbtl) 3 drop EAR-RIGHT QID [facility] Last Admin: 03/31/22 13:20 Dose: Not Given Documented By: ATIF Non-Admin Reason: Patient Refused Olanzapine (Olanzapine Odt 10 Mg Tab.Rapdis) 5 mg TRANSLINGU BID PRN PRN Reason: agitation, psychosis Last Admin: 03/15/22 19:48 Dose: 5 mg Documented By: GENIE Omeprazole (Omeprazole 20 Mg Capsule.Dr) 20 mg PO DAILY@0630 [facility] Last Admin: 03/31/22 05:17 Dose: Not Given Documented By: EMELINA Non-Admin Reason: Patient Refused Senna (Sennosides 8.6 Mg Tablet) 17.2 mg PO BEDTIME PRN PRN Reason: Constipation Sildenafil Citrate (Sildenafil Citrate 20 Mg Tablet) 20 mg PO TID [facility] Last Admin: 03/31/22 08:53 Dose: Not Given Documented By: TARIQ Non-Admin Reason: Patient Refused Sitagliptin Phosphate (Sitagliptin Phosphate 100 Mg Tablet) 100 mg PO DAILY [facility] Last Admin: 03/31/22 08:53 Dose: Not Given Documented By: TARIQ Non-Admin Reason: Patient Refused Sodium Chloride (0.9 % Sodium Chloride Flush 3 Ml Syringe) 3 ml IVFLUSH QSHIFT [facility] Last Admin: 03/31/22 08:25 Dose: Not Given Documented By: TARIQ Non-Admin Reason: No Access Labs CBC & Chem 7: 01/16/22 05:35 03/27/22 08:40 Labs: Laboratory Results - last 24 hr 03/30/22 03/30/22 03/31/22 15:56 19:38 07:27 POC Glucose 202 H 99 146 H 03/31/22 11:34 POC Glucose 269 H Assessment and Plan (1) Pulmonary hypertension: Status: Acute Plan 61-year-old male with a past medical history of schizophrenia, CHF, asthma/COPD, diabetes, hyperlipidemia presented from the [facility] with a chief complaint of acute hypoxia. Noted to have following conditions Acute hypoxic respiratory failure on presentation suspected d/t COPD/asthma/CHF-- Resolved, currently finger oximetry 93% on room. Acute asthma/COPD: Patient has no formal diagnosis. Patient is supposed to be following up with pulmonology as outpatient. He had similar presentation in December 2021. continue bronchodilators, no acute exacerbation Pulmonary HTN--Viagra, outpatient follow up Right heart failure: EF 55 to 60,no acute exacerbation, continue oral Lasix 40 bid Diabetes/hyperglycemia: blood sugars in acceptable range continue lantus, SSI, metformin and Sitagliptin schizoaffective disorder: Continue home Depakote, haloperidol DVT prophylaxis: Lovenox Code status: Full code. Confirmed with the patient's guardian [facility] proxy invoked. Lacks capacity for medical decision, awaiting permanent placement need for inpatient : awaiting placement attending - dr. redd out of bed and to ambulate in [place] several times/day Quality Stroke Does the patient have a stroke diagnosis?: No VTE Prior VTE?: No VTE Risk Level:: Medical - moderate - high VTE Device Contraindication: Treatment Not Indicated VTE Drug Contraindication: N/A - Med Ordered
[2022-03-31 15:27] VITALS: BP 96/59; PULSE 73; RESP 20; TEMP 36.6; O2SAT 94
[2022-03-31 16:23] LABS: Glucose, Whole Blood 234 mg/dL (60-115)
[2022-03-31] MEDS: metFORMIN HCl 500 MG TABLET PO (16:35)
[2022-03-31] MEDS: Furosemide 40 MG TABLET PO (16:35)
[2022-03-31 20:28] LABS: Glucose, Whole Blood 187 mg/dL (60-115)
--- NOTE | 2022-03-31 23:09 | PC.NURSE ---
at 2100 When patient was asked if he wanted to take meds. Patient got agitated and responded I don't want no damn meds . Rn recorded refusal on MAR
[2022-03-31 23:37] VITALS: BP 99/63; PULSE 71; RESP 17; TEMP 36.6; O2SAT 93
[2022-04-01 09:41] LABS: Glucose, Whole Blood 157 mg/dL (60-115)
[2022-04-01] MEDS: metFORMIN HCl 500 MG TABLET PO ×2 (09:44→17:03)
--- NOTE | 2022-04-01 12:30 | HO.PM.IMPN ---
Subjective Subjective Date of Service: 04/01/22 Interval History: Seen and examined this morning Follow-up for placement No overnight events Patient feeling frustrated with being in hospitalists long and wants to leave He says that he is feeling well physically denies any abdominal pain, chest pain, palpitations, shortness of breath. He is tolerating his diet and voiding without difficulty Review of Systems Review of Systems: Yes all other systems are reviewed and are negative Constitutional Constitutional: Denies chills and Denies fever(s) ENT Ears, Nose, Mouth, and Throat: Denies dizziness Cardiovascular Cardiovascular: Denies chest pain, Denies palpitations and Denies dyspnea Respiratory Respiratory: Denies cough and Denies dyspnea Gastrointestinal Gastrointestinal: Denies abdominal pain, Denies nausea and Denies vomiting Neurologic Neurologic: Denies dizziness Endocrine Endocrine: Denies palpitations Physical Exam Vital Signs: Vital Signs: Last Vital Signs Temp 97.9 F 03/31/22 23:37 Pulse 71 03/31/22 23:37 Resp 17 03/31/22 23:37 BP 99/63 03/31/22 23:37 Pulse Ox 93 03/31/22 23:37 O2 Del Method 03/31/22 23:37 O2 Flow Rate 2 02/16/22 07:18 FiO2 94 02/13/22 15:38 BMI result Body Mass Index 21.8 Const: General: comfortable, no acute distress, alert and awake Resp: Effort & Inspection: normal respiratory effort and able to speak in complete sentences Cardio: Rate: regular rate Heart sounds: S1 normal heart sound present and S2 normal heart sound present GI: Palpation (GI): Soft to palpation and nontender Extrem: General: Yes no pedal edema Objective Data Active Medications Acetaminophen (Acetaminophen 325 Mg Tablet) 650 mg PO Q6H PRN PRN Reason: Pain, Mild (Pain Scale 1-3) Atorvastatin Calcium (Atorvastatin Calcium 40 Mg Tablet) 40 mg PO DAILY COUNT [facility]CLUD[facility] Last Admin: 04/01/22 09:55 Dose: Not Given Documented By: ATIF Non-Admin Reason: Patient Refused Dextrose (Dextrose 50 % 25 Gm/50 Ml Syringe) 25 gm IVPUSH Q15M PRN; Protocol PRN Reason: per Hypoglycemia Standing Ord. Divalproex Sodium (Divalproex Sodium Er 250 Mg Tab.Er.24h) 250 mg PO DAILY@1700 [facility]CLUDES [facility] Last Admin: 03/31/22 16:41 Dose: Not Given Documented By: TARIQ Non-Admin Reason: Patient Refused Divalproex Sodium (Divalproex Sodium Er 500 Mg Tab.Er.24h) 500 mg PO DAILY COUNT [facility]CLUDES [facility] Last Admin: 04/01/22 09:55 Dose: Not Given Documented By: ATIF Non-Admin Reason: Patient Refused Enoxaparin Sodium (Enoxaparin Sodium 40 Mg/0.4 Ml Syringe) 40 mg SUBCUT Q24H COUNT [facility]CLUDES [facility] Last Admin: 03/31/22 23:08 Dose: Not Given Documented By: EMELINA Non-Admin Reason: Patient Refused Ferrous Sulfate (Ferrous Sulfate 324 Mg Tablet.Dr) 324 mg PO BID COUNT [facility]CLUD[facility] Last Admin: 04/01/22 09:55 Dose: Not Given Documented By: ATIF Non-Admin Reason: Patient Refused Fluticasone Propionate (Fluticasone Propionate Nasal 16 Gm [place]) 1 spray NOSTRIL-B BID COUNT [facility]CLUD[facility] Last Admin: 04/01/22 09:55 Dose: Not Given Documented By: ATIF Non-Admin Reason: Patient Refused Furosemide (Furosemide 40 Mg Tablet) 40 mg PO BID@0900,1800 COUNT [facility]CLUDES [facility]; Protocol Last Admin: 04/01/22 09:55 Dose: Not Given Documented By: ATIF Non-Admin Reason: Patient Refused Glucose (Glucose Gel 15 Gm Gel..Gram.) 15 gm PO Q15M PRN; Protocol PRN Reason: per Hypoglycemia Standing Ord. Haloperidol (Haloperidol 5 Mg Tablet) 10 mg PO BID COUNT [facility]CLUDES [facility] Last Admin: 04/01/22 09:55 Dose: Not Given Documented By: ATIF Non-Admin Reason: Patient Refused Insulin Glargine (Insulin Glargine,Hum.Rec.Anlog 100 Unit/Ml 10 Ml Vial) 10 unit SUBCUT BEDTIME COUNT [facility]CLUDES [facility] Last Admin: 03/31/22 23:08 Dose: Not Given Documented By: EMELINA Non-Admin Reason: Patient Refused Insulin Human Lispro (Insulin Lispro 100 Unit/Ml 3 Ml Vial) 0 unit SUBCUT QIDACHS COUNT INCLUDES THE [facility]; Protocol Last Admin: 04/01/22 12:10 Dose: Not Given Documented By: TARIQ Non-Admin Reason: Patient Refused Melatonin (Melatonin 3 Mg Tablet) 6 mg PO BEDTIME PRN PRN Reason: Insomnia Last Admin: 03/26/22 19:42 Dose: 6 mg Documented By: SHARONILScooby Metformin HCl (Metformin Hcl 500 Mg Tablet) 500 mg PO BIDWM COUNT INCLUDES [facility] Last Admin: 04/01/22 09:44 Dose: 500 mg Documented By: ATIF Neomycin/Polymyxin/Hydrocortisone (Neomycin/Polymyxin/Hc Otic Melanie 10 Ml Drpbtl) 3 drop EAR-RIGHT QID COUNT INCLUDES [facility] Last Admin: 04/01/22 09:55 Dose: Not Given Documented By: ATIF Non-Admin Reason: Patient Refused Olanzapine (Olanzapine Odt 10 Mg Tab.Rapdis) 5 mg TRANSLINGU BID PRN PRN Reason: agitation, psychosis Last Admin: 03/15/22 19:48 Dose: 5 mg Documented By: GENIE Omeprazole (Omeprazole 20 Mg Capsule.Dr) 20 mg PO DAILY@0630 COUNT [facility]CLUDES [facility] Last Admin: 04/01/22 06:53 Dose: Not Given Documented By: EMELINA Non-Admin Reason: Patient Refused Senna (Sennosides 8.6 Mg Tablet) 17.2 mg PO BEDTIME PRN PRN Reason: Constipation Sildenafil Citrate (Sildenafil Citrate 20 Mg Tablet) 20 mg PO TID COUNT INCLUDES [facility] Last Admin: 04/01/22 09:56 Dose: Not Given Documented By: ATIF Non-Admin Reason: Patient Refused Sitagliptin Phosphate (Sitagliptin Phosphate 100 Mg Tablet) 100 mg PO DAILY COUNT [facility]CLUDES [facility] Last Admin: 04/01/22 09:56 Dose: Not Given Documented By: ATIF Non-Admin Reason: Patient Refused Sodium Chloride (0.9 % Sodium Chloride Flush 3 Ml Syringe) 3 ml IVFLUSH QSHIFT COUNT INCLUDES [facility] Last Admin: 04/01/22 09:45 Dose: Not Given Documented By: ATIF Non-Admin Reason: No Access Labs CBC & Chem 7: 01/16/22 05:35 03/27/22 08:40 Labs: Laboratory Results - last 24 hr 03/31/22 03/31/22 04/01/22 16:19 19:43 09:35 POC Glucose 234 H 187 H 157 H Assessment and Plan (1) Pulmonary hypertension: Status: Acute Plan 61-year-old male with a past medical history of schizophrenia, CHF, asthma/COPD, diabetes, hyperlipidemia presented from the senior living with a chief complaint of acute hypoxia. Noted to have following conditions Acute hypoxic respiratory failure on presentation suspected d/t COPD/asthma/CHF-- Resolved, currently finger oximetry 93% on room. Acute asthma/COPD: Patient has no formal diagnosis. Patient is supposed to be following up with pulmonology as outpatient. He had similar presentation in December 2021. continue bronchodilators, no acute exacerbation Pulmonary HTN--Viagra, outpatient follow up Right heart failure: EF 55 to 60,no acute exacerbation, continue oral Lasix 40 bid Diabetes/hyperglycemia: blood sugars in acceptable range continue lantus, SSI, metformin and Sitagliptin schizoaffective disorder: Continue home Depakote, haloperidol DVT prophylaxis: Lovenox Code status: Full code. Confirmed with the patient's guardian [facility] proxy invoked. Lacks capacity for medical decision, awaiting permanent placement need for inpatient : awaiting placement attending - dr. Michaud out of bed and to ambulate in [place] several times/day Quality Stroke Does the patient have a stroke diagnosis?: No VTE Prior VTE?: No VTE Risk Level:: Medical - moderate - high VTE Device Contraindication: Treatment Not Indicated VTE Drug Contraindication: N/A - Med Ordered
[2022-04-01 15:20] VITALS: BP 105/65; PULSE 78; RESP 17; TEMP 36.4; O2SAT 94
[2022-04-01 15:47] LABS: Glucose, Whole Blood 147 mg/dL (60-115)
[2022-04-01] MEDS: Sildenafil Citrate 20 MG TABLET PO ×2 (17:03→19:39)
[2022-04-01] MEDS: Furosemide 40 MG TABLET PO (18:39)
[2022-04-01] MEDS: Ferrous Sulfate 324 MG TABLET.DR PO (19:39)
[2022-04-01] MEDS: HaloperidoL 5 MG TABLET 10 MG PO (19:39)
[2022-04-01 20:28] LABS: Glucose, Whole Blood 155 mg/dL (60-115)
[2022-04-02] VITALS: BP 113/67; PULSE 73; RESP 18; TEMP 36.1; O2SAT 95
[2022-04-02 07:09] VITALS: BP 108/68; PULSE 58; RESP 18; TEMP 36.5; O2SAT 91
[2022-04-02 07:23] LABS: Glucose, Whole Blood 148 mg/dL (60-115)
[2022-04-02] MEDS: HaloperidoL 5 MG TABLET 10 MG PO ×2 (09:19→19:44)
--- NOTE | 2022-04-02 09:35 | P.PNIM_ITS ---
Subjective Subjective Date of Service: 04/02/22 Review of Systems Follow up placement no complaints from patient Physical Exam Vital Signs: Vital Signs: Last Vital Signs Temp 97.7 F 04/02/22 07:09 Pulse 58 04/02/22 07:09 Resp 18 04/02/22 07:09 BP 108/68 04/02/22 07:09 Pulse Ox 91 L 04/02/22 07:09 O2 Del Method 04/02/22 07:09 O2 Flow Rate 2 02/16/22 07:18 FiO2 94 02/13/22 15:38 BMI result Body Mass Index 21.8 Appearing in no acute distress lung sounds are clear to auscultation heart regular rate rhythm abdomen is soft, nontender neuro patient is alert Objective Data Active Medications Acetaminophen (Acetaminophen 325 Mg Tablet) 650 mg PO Q6H PRN PRN Reason: Pain, Mild (Pain Scale 1-3) Atorvastatin Calcium (Atorvastatin Calcium 40 Mg Tablet) 40 mg PO DAILY [facility] Last Admin: 04/02/22 09:22 Dose: Not Given Documented By: WILNER Non-Admin Reason: Patient Refused Dextrose (Dextrose 50 % 25 Gm/50 Ml Syringe) 25 gm IVPUSH Q15M PRN; Protocol PRN Reason: per Hypoglycemia Standing Ord. Divalproex Sodium (Divalproex Sodium Er 250 Mg Tab.Er.24h) 250 mg PO DAILY@1700 [facility] Last Admin: 04/01/22 17:22 Dose: Not Given Documented By: ATIF Non-Admin Reason: Patient Refused Divalproex Sodium (Divalproex Sodium Er 500 Mg Tab.Er.24h) 500 mg PO DAILY [facility] Last Admin: 04/02/22 09:22 Dose: Not Given Documented By: WILNER Non-Admin Reason: Patient Refused Enoxaparin Sodium (Enoxaparin Sodium 40 Mg/0.4 Ml Syringe) 40 mg SUBCUT Q24H [facility] Last Admin: 04/01/22 19:43 Dose: Not Given Documented By: ESTELLE Non-Admin Reason: Patient Refused Ferrous Sulfate (Ferrous Sulfate 324 Mg Tablet.Dr) 324 mg PO BID [facility] Last Admin: 04/02/22 09:23 Dose: Not Given Documented By: WILNER Non-Admin Reason: Patient Refused Fluticasone Propionate (Fluticasone Propionate Nasal 16 Gm [place]) 1 spray N OSTRIL-B BID [facility] Last Admin: 04/01/22 20:08 Dose: Not Given Documented By: ESTELLE Non-Admin Reason: Patient Refused Furosemide (Furosemide 40 Mg Tablet) 40 mg PO BID@0900,1800 [facility]; Protocol Last Admin: 04/02/22 09:23 Dose: Not Given Documented By: WILNER Non-Admin Reason: Patient Refused Glucose (Glucose Gel 15 Gm Gel..Gram.) 15 gm PO Q15M PRN; Protocol PRN Reason: per Hypoglycemia Standing Ord. Haloperidol (Haloperidol 5 Mg Tablet) 10 mg PO BID [facility] Last Admin: 04/02/22 09:19 Dose: 10 mg Documented By: WILNER Insulin Glargine (Insulin Glargine,Hum.Rec.Anlog 100 Unit/Ml 10 Ml Vial) 10 unit SUBCUT BEDTIME [facility] Last Admin: 04/01/22 19:44 Dose: Not Given Documented By: ESTELLE Non-Admin Reason: Patient Refused Insulin Human Lispro (Insulin Lispro 100 Unit/Ml 3 Ml Vial) 0 unit SUBCUT QIDACHS [facility]; Protocol Last Admin: 04/02/22 07:28 Dose: Not Given Documented By: WILNER Non-Admin Reason: No Insulin Coverage Melatonin (Melatonin 3 Mg Tablet) 6 mg PO BEDTIME PRN PRN Reason: Insomnia Last Admin: 03/26/22 19:42 Dose: 6 mg Documented By: ANA Metformin HCl (Metformin Hcl 500 Mg Tablet) 500 mg PO BIDWM [facility] Last Admin: 04/02/22 09:22 Dose: Not Given Documented By: WILNER Non-Admin Reason: Patient Refused Neomycin/Polymyxin/Hydrocortisone (Neomycin/Polymyxin/Hc Otic Melanie 10 Ml Drpbtl) 3 drop EAR-RIGHT QID [facility] Last Admin: 04/02/22 07:28 Dose: Not Given Documented By: WILNER Non-Admin Reason: Patient Refused Olanzapine (Olanzapine Odt 10 Mg Tab.Rapdis) 5 mg TRANSLINGU BID PRN PRN Reason: agitation, psychosis Last Admin: 03/15/22 19:48 Dose: 5 mg Documented By: GENIE Omeprazole (Omeprazole 20 Mg Capsule.Dr) 20 mg PO DAILY@0630 [facility] Last Admin: 04/02/22 06:34 Dose: Not Given Documented By: HO.CROP Non-Admin Reason: Patient Refused Senna (Sennosides 8.6 Mg Tablet) 17.2 mg PO BEDTIME PRN PRN Reason: Constipation Sildenafil Citrate (Sildenafil Citrate 20 Mg Tablet) 20 mg PO TID [facility] Last Admin: 04/02/22 09:23 Dose: Not Given Documented By: WILNER Non-Admin Reason: Patient Refused Sitagliptin Phosphate (Sitagliptin Phosphate 100 Mg Tablet) 100 mg PO DAILY [facility] Last Admin: 04/02/22 09:23 Dose: Not Given Documented By: WILNER Non-Admin Reason: Patient Refused Sodium Chloride (0.9 % Sodium Chloride Flush 3 Ml Syringe) 3 ml IVFLUSH QSHIFT [facility] Last Admin: 04/02/22 07:28 Dose: Not Given Documented By: WILNER Non-Admin Reason: No Access Labs CBC & Chem 7: 01/16/22 05:35 03/27/22 08:40 Labs: Laboratory Results - last 24 hr 04/01/22 04/01/22 04/01/22 09:35 15:23 19:29 POC Glucose 157 H 147 H 155 H 04/02/22 07:07 POC Glucose 148 H Assessment and Plan (1) Pulmonary hypertension: Status: Acute Plan 61-year-old male with a past medical history of schizophrenia, CHF, asthma/COPD, diabetes, hyperlipidemia presented from the custodial with a chief complaint of acute hypoxia. Noted to have following conditions No medical changes check labs 04/03 Acute hypoxic respiratory failure on presentation suspected d/t COPD/asthma/CHF Resolved, currently finger oximetry 93% on room. Acute asthma/COPD Patient has no formal diagnosis. Patient is supposed to be following up with pulmonology as outpatient. He had similar presentation in December 2021. continue bronchodilators, no acute exacerbation Pulmonary HTN Viagra, outpatient follow up Right heart failure EF 55 to 60,no acute exacerbation, continue oral Lasix 40 bid Diabetes/hyperglycemia blood sugars in acceptable range continue lantus, SSI, metformin and Sitagliptin schizoaffective disorder Continue home Depakote, haloperidol DVT prophylaxis: Lovenox Code status: Full code. Confirmed with the patient's guardian [facility] proxy invoked. Lacks capacity for medical decision, awaiting permanent placement Need for inpatient : awaiting placement attending - Dr. Pride out of bed and to ambulate in [place] several times/day Quality Stroke Does the patient have a stroke diagnosis?: No VTE Prior VTE?: No VTE Risk Level:: Medical - moderate - high VTE Device Contraindication: Treatment Not Indicated VTE Drug Contraindication: N/A - Med Ordered
[2022-04-02 11:07] LABS: Glucose, Whole Blood 217 mg/dL (60-115)
[2022-04-02 15:36] VITALS: BP 127/72; PULSE 78; RESP 18; TEMP 37; O2SAT 95
--- NOTE | 2022-04-02 15:37 | PC.NURSE ---
Pt refused morning meds except for haldol, including insulin. Nurse provided education. Pt refused again. He allowed breakfast and lunchtime POCs but not dinner.
[2022-04-02] MEDS: metFORMIN HCl 500 MG TABLET PO (16:46)
[2022-04-02 19:44] LABS: Glucose, Whole Blood 156 mg/dL (60-115)
[2022-04-02] MEDS: Insulin Glargine,Hum.rec.anlog 100 UNIT/ML 10 ML VIAL 10 UNIT SUBCUT (19:47)
[2022-04-02 23:20] VITALS: BP 95/66; PULSE 70; RESP 18; TEMP 36.1; O2SAT 96
[2022-04-03 07:35] LABS: Glucose, Whole Blood 169 mg/dL (60-115)
[2022-04-03 07:54] VITALS: BP 107/75; PULSE 64; RESP 17; TEMP 36.2; O2SAT 93
--- NOTE | 2022-04-03 08:47 | P.PNIM_ITS ---
Subjective Subjective Date of Service: 04/03/22 Review of Systems Follow up placement no complaints from patient Physical Exam Vital Signs: Vital Signs: Last Vital Signs Temp 97.1 F 04/03/22 07:54 Pulse 64 04/03/22 07:54 Resp 17 04/03/22 07:54 BP 107/75 04/03/22 07:54 Pulse Ox 93 04/03/22 07:54 O2 Del Method 04/03/22 07:54 O2 Flow Rate 2 02/16/22 07:18 FiO2 94 02/13/22 15:38 BMI result Body Mass Index 21.8 Appearing in no acute distress lung sounds are clear to auscultation heart regular rate rhythm, clear S1, S2 positive bowel sounds, abdomen is soft, nontender neuro patient is alert Objective Data Active Medications Acetaminophen (Acetaminophen 325 Mg Tablet) 650 mg PO Q6H PRN PRN Reason: Pain, Mild (Pain Scale 1-3) Atorvastatin Calcium (Atorvastatin Calcium 40 Mg Tablet) 40 mg PO DAILY [facility] Last Admin: 04/02/22 09:22 Dose: Not Given Documented By: WILNER Non-Admin Reason: Patient Refused Dextrose (Dextrose 50 % 25 Gm/50 Ml Syringe) 25 gm IVPUSH Q15M PRN; Protocol PRN Reason: per Hypoglycemia Standing Ord. Divalproex Sodium (Divalproex Sodium Er 250 Mg Tab.Er.24h) 250 mg PO DAILY@1700 [facility] Last Admin: 04/02/22 16:47 Dose: Not Given Documented By: WILNER Non-Admin Reason: Patient Refused Divalproex Sodium (Divalproex Sodium Er 500 Mg Tab.Er.24h) 500 mg PO DAILY [facility] Last Admin: 04/02/22 09:22 Dose: Not Given Documented By: WILNER Non-Admin Reason: Patient Refused Enoxaparin Sodium (Enoxaparin Sodium 40 Mg/0.4 Ml Syringe) 40 mg SUBCUT Q24H [facility] Last Admin: 04/02/22 19:47 Dose: Not Given Documented By: ESTELLE Non-Admin Reason: Patient Refused Ferrous Sulfate (Ferrous Sulfate 324 Mg Tablet.) 324 mg PO BID [facility] Last Admin: 04/02/22 19:48 Dose: Not Given Documented By: ESTELLE Non-Admin Reason: Patient Refused Fluticasone Propionate (Fluticasone Propionate Nasal 16 Gm [place]) 1 spray NOSTRIL-B BID [facility] Last Admin: 04/02/22 19:48 Dose: Not Given Documented By: ESTELLE Non-Admin Reason: Patient Refused Furosemide (Furosemide 40 Mg Tablet) 40 mg PO BID@0900,1800 [facility]; Protocol Last Admin: 04/02/22 16:48 Dose: Not Given Documented By: WILNER Non-Admin Reason: Patient Refused Glucose (Glucose Gel 15 Gm Gel..Gram.) 15 gm PO Q15M PRN; Protocol PRN Reason: per Hypoglycemia Standing Ord. Haloperidol (Haloperidol 5 Mg Tablet) 10 mg PO BID [facility] Last Admin: 04/02/22 19:44 Dose: 10 mg Documented By: ESTELLE Insulin Glargine (Insulin Glargine,Hum.Rec.Anlog 100 Unit/Ml 10 Ml Vial) 10 unit SUBCUT BEDTIME [facility] Last Admin: 04/02/22 19:47 Dose: 10 unit Documented By: ESTELLE Insulin Human Lispro (Insulin Lispro 100 Unit/Ml 3 Ml Vial) 0 unit SUBCUT QIDACHS [facility]; Protocol Last Admin: 04/02/22 19:48 Dose: Not Given Documented By: ESTELLE Non-Admin Reason: Patient Refused Melatonin (Melatonin 3 Mg Tablet) 6 mg PO BEDTIME PRN PRN Reason: Insomnia Last Admin: 03/26/22 19:42 Dose: 6 mg Documented By: ANA Metformin HCl (Metformin Hcl 500 Mg Tablet) 500 mg PO BIDWM [facility] Last Admin: 04/02/22 16:46 Dose: 500 mg Documented By: WILNER Neomycin/Polymyxin/Hydrocortisone (Neomycin/Polymyxin/Hc Otic Melanie 10 Ml Drpbtl) 3 drop EAR-RIGHT QID [facility] Last Admin: 04/02/22 19:48 Dose: Not Given Documented By: ESTELLE Non-Admin Reason: Patient Refused Olanzapine (Olanzapine Odt 10 Mg Tab.Rapdis) 5 mg TRANSLINGU BID PRN PRN Reason: agitation, psychosis Last Admin: 03/15/22 19:48 Dose: 5 mg Documented By: GENIE Omeprazole (Omeprazole 20 Mg Capsule.) 20 mg PO DAILY@0630 [facility] Last Admin: 04/03/22 05:44 Dose: Not Given Documented By: ESTELLE Non-Admin Reason: Patient Refused Senna (Sennosides 8.6 Mg Tablet) 17.2 mg PO BEDTIME PRN PRN Reason: Constipation Sildenafil Citrate (Sildenafil Citrate 20 Mg Tablet) 20 mg PO TID [facility] Last Admin: 04/02/22 19:49 Dose: Not Given Documented By: ESTELLE Non-Admin Reason: Patient Refused Sitagliptin Phosphate (Sitagliptin Phosphate 100 Mg Tablet) 100 mg PO DAILY [facility] Last Admin: 04/02/22 09:23 Dose: Not Given Documented By: WILNER Non-Admin Reason: Patient Refused Sodium Chloride (0.9 % Sodium Chloride Flush 3 Ml Syringe) 3 ml IVFLUSH QSHIFT [facility] Last Admin: 04/02/22 19:51 Dose: Not Given Documented By: ESTELLE Non-Admin Reason: No Access Labs CBC & Chem 7: 01/16/22 05:35 03/27/22 08:40 Labs: Laboratory Results - last 24 hr 04/02/22 04/02/22 04/03/22 10:56 19:39 07:21 POC Glucose 217 H 156 H 169 H Assessment and Plan (1) Pulmonary hypertension: Status: Acute Plan 61-year-old male with a past medical history of schizophrenia, CHF, asthma/COPD, diabetes, hyperlipidemia [facility]. Noted to have following conditions No medical changes labs 04/03-wnl Acute hypoxic respiratory failure on presentation suspected d/t COPD/asthma/CHF Resolved, currently finger oximetry 93% on room. Acute asthma/COPD Patient has no formal diagnosis. Patient is supposed to be following up with pulmonology as outpatient. He had similar presentation in December 2021. continue bronchodilators, no acute exacerbation Pulmonary HTN Viagra, outpatient follow up Right heart failure EF 55 to 60,no acute exacerbation, continue oral Lasix 40 bid Diabetes/hyperglycemia blood sugars in acceptable range continue lantus, SSI, metformin and Sitagliptin schizoaffective disorder Continue home Depakote, haloperidol DVT prophylaxis: Lovenox Code status: Full code. Confirmed with the patient's guardian [facility] proxy invoked. Lacks capacity for medical decision, awaiting permanent placement Need for inpatient : awaiting placement attending - Dr. Pride out of bed and to ambulate in [place] several times/day Quality Stroke Does the patient have a stroke diagnosis?: No VTE Prior VTE?: No VTE Risk Level:: Medical - moderate - high VTE Device Contraindication: Treatment Not Indicated VTE Drug Contraindication: N/A - Med Ordered
[2022-04-03] MEDS: metFORMIN HCl 500 MG TABLET PO ×2 (09:35→16:58)
[2022-04-03] MEDS: HaloperidoL 5 MG TABLET 10 MG PO ×2 (09:35→21:24)
--- NOTE | 2022-04-03 11:07 | MHC.CM.PN ---
PATIENT IS MEDICALLY STABLE. AWAITING SAFE DISCHARGE DISPOSTION. SNF's HAVE BEEN UPDATED.
[2022-04-03 11:29] LABS: Glucose, Whole Blood 155 mg/dL (60-115)
--- NOTE | 2022-04-03 14:14 | MHC.CM.PN ---
CM RECEIVED PHONE CALL FROM PATIENT'S [facility]. SHE WILL BE BY ON THURSDAY 04/05 AT 11:30 A.M. TO SEE PATIENT.
[2022-04-03 15:29] LABS: Glucose, Whole Blood 131 mg/dL (60-115)
[2022-04-03 15:52] VITALS: BP 123/73; PULSE 72; RESP 18; TEMP 37; O2SAT 94
[2022-04-03] MEDS: Insulin Glargine,Hum.rec.anlog 100 UNIT/ML 10 ML VIAL 10 UNIT SUBCUT (21:24)
[2022-04-03 21:29] LABS: Glucose, Whole Blood 168 mg/dL (60-115)
[2022-04-04] VITALS: BP 112/71; PULSE 94; RESP 16; TEMP 36.1; O2SAT 96
[2022-04-04 07:02] VITALS: BP 103/59; PULSE 64; RESP 18; TEMP 36.1; O2SAT 91
[2022-04-04 07:30] LABS: Glucose, Whole Blood 144 mg/dL (60-115)
[2022-04-04] MEDS: HaloperidoL 5 MG TABLET 10 MG PO ×2 (09:22→19:30)
[2022-04-04] MEDS: metFORMIN HCl 500 MG TABLET PO ×2 (09:22→17:09)
[2022-04-04 11:13] LABS: Glucose, Whole Blood 137 mg/dL (60-115)
--- NOTE | 2022-04-04 11:35 | P.PNIM_ITS ---
Subjective Subjective Date of Service: 04/04/22 Interval History: Follow-up for placement, patient is lying comfortably offers no complaints wants to go home has been tolerating a diet, has no pain, no acute events overnight. Review of Systems Review of Systems: Yes all other systems are reviewed and are negative Physical Exam Vital Signs: Vital Signs: Last Vital Signs Temp 96.9 F 04/04/22 07:02 Pulse 64 04/04/22 07:02 Resp 18 04/04/22 07:02 BP 103/59 L 04/04/22 07:02 Pulse Ox 91 L 04/04/22 07:02 O2 Del Method 04/04/22 07:02 O2 Flow Rate 2 02/16/22 07:18 FiO2 94 02/13/22 15:38 BMI result Body Mass Index 21.8 Const: Other: General: AO X 2, no acute distress Neck no JVD Resp:?CTA bilateral CVS:?S1,S2,RRR GI: +BS, NT, no distention Skin: No rash Neuro:? motor grossly intact Psych: flat affect ? Objective Data Active Medications Acetaminophen (Acetaminophen 325 Mg Tablet) 650 mg PO Q6H PRN PRN Reason: Pain, Mild (Pain Scale 1-3) Atorvastatin Calcium (Atorvastatin Calcium 40 Mg Tablet) 40 mg PO DAILY [facility] Last Admin: 04/04/22 09:23 Dose: Not Given Documented By: LEYDA Non-Admin Reason: Patient Refused Dextrose (Dextrose 50 % 25 Gm/50 Ml Syringe) 25 gm IVPUSH Q15M PRN; Protocol PRN Reason: per Hypoglycemia Standing Ord. Divalproex Sodium (Divalproex Sodium Er 250 Mg Tab.Er.24h) 250 mg PO DAILY@1700 [facility] Last Admin: 04/03/22 16:59 Dose: Not Given Documented By: WILNER Non-Admin Reason: Patient Refused Divalproex Sodium (Divalproex Sodium Er 500 Mg Tab.Er.24h) 500 mg PO DAILY [facility] Last Admin: 04/04/22 09:23 Dose: Not Given Documented By: LEYDA Non-Admin Reason: Patient Refused Enoxaparin Sodium (Enoxaparin Sodium 40 Mg/0.4 Ml Syringe) 40 mg SUBCUT Q24H [facility] Last Admin: 04/03/22 21:19 Dose: Not Given Documented By: EUFEMIA Non-Admin Reason: Patient Refused Ferrous Sulfate (Ferrous Sulfate 324 Mg Tablet.Dr) 324 mg PO BID [facility] Last Admin: 04/04/22 09:14 Dose: Not Given Documented By: LEYDA Non-Admin Reason: Patient Refused Fluticasone Propionate (Fluticasone Propionate Nasal 16 Gm [place]) 1 spray NOSTRIL-B BID [facility] Last Admin: 04/04/22 09:14 Dose: Not Given Documented By: LEYDA Non-Admin Reason: Patient Refused Furosemide (Furosemide 40 Mg Tablet) 40 mg PO BID@0900,1800 [facility]; Protocol Last Admin: 04/04/22 09:14 Dose: Not Given Documented By: LEYDA Non-Admin Reason: Patient Refused Glucose (Glucose Gel 15 Gm Gel..Gram.) 15 gm PO Q15M PRN; Protocol PRN Reason: per Hypoglycemia Standing Ord. Haloperidol (Haloperidol 5 Mg Tablet) 10 mg PO BID [facility] Last Admin: 04/04/22 09:22 Dose: 10 mg Documented By: LEYDA Insulin Glargine (Insulin Glargine,Hum.Rec.Anlog 100 Unit/Ml 10 Ml Vial) 10 unit SUBCUT BEDTIME [facility] Last Admin: 04/03/22 21:24 Dose: 10 unit Documented By: EUFEMIA Insulin Human Lispro (Insulin Lispro 100 Unit/Ml 3 Ml Vial) 0 unit SUBCUT QID [facility]; Protocol Last Admin: 04/04/22 11:24 Dose: Not Given Documented By: LEYDA Non-Admin Reason: No Insulin Coverage Melatonin (Melatonin 3 Mg Tablet) 6 mg PO BEDTIME PRN PRN Reason: Insomnia Last Admin: 03/26/22 19:42 Dose: 6 mg Documented By: SHARONILScooby Metformin HCl (Metformin Hcl 500 Mg Tablet) 500 mg PO BIDWM [facility] Last Admin: 04/04/22 09:22 Dose: 500 mg Documented By: LEYDA Neomycin/Polymyxin/Hydrocortisone (Neomycin/Polymyxin/Hc Otic [place]ml[place] 10 Ml Drpbtl) 3 drop EAR-RIGHT QID [facility] Last Admin: 04/04/22 09:13 Dose: Not Given Documented By: LEYDA Non-Admin Reason: Patient Refused Olanzapine (Olanzapine Odt 10 Mg Tab.Rapdis) 5 mg TRANSLINGU BID PRN PRN Reason: agitation, psychosis Last Admin: 03/15/22 19:48 Dose: 5 mg Documented By: GENIE Omeprazole (Omeprazole 20 Mg Capsule.) 20 mg PO DAILY@0630 [facility] Last Admin: 04/04/22 05:51 Dose: Not Given Documented By: EUFEMIA Non-Admin Reason: Patient Refused Senna (Sennosides 8.6 Mg Tablet) 17.2 mg PO BEDTIME PRN PRN Reason: Constipation Sildenafil Citrate (Sildenafil Citrate 20 Mg Tablet) 20 mg PO TID [facility] Last Admin: 04/04/22 09:13 Dose: Not Given Documented By: LEYDA Non-Admin Reason: Patient Refused Sitagliptin Phosphate (Sitagliptin Phosphate 100 Mg Tablet) 100 mg PO DAILY [facility] Last Admin: 04/04/22 09:13 Dose: Not Given Documented By: LEYDA Non-Admin Reason: Patient Refused Sodium Chloride (0.9 % Sodium Chloride Flush 3 Ml Syringe) 3 ml IVFLUSH QSHIFT [facility] Last Admin: 04/04/22 09:14 Dose: Not Given Documented By: LEYDA Non-Admin Reason: No Access Labs CBC & Chem 7: 01/16/22 05:35 03/27/22 08:40 Labs: Laboratory Results - last 24 hr 04/03/22 04/03/22 04/04/22 15:18 21:24 07:05 POC Glucose 131 H 168 H 144 H 04/04/22 11:09 POC Glucose 137 H Assessment and Plan (1) Pulmonary hypertension: Status: Acute Plan 61-year-old male with a past medical history of schizophrenia, CHF, asthma/COPD, diabetes, [facility]. Noted to have following conditions No medical changes labs 04/03-wnl Acute hypoxic respiratory failure on presentation suspected d/t COPD/asthma/CHF Resolved, currently finger oximetry 93% on room. Acute asthma/COPD Patient has no formal diagnosis. Patient is supposed to be following up with pulmonology as outpatient. He had similar presentation in December 2021. continue bronchodilators, no acute exacerbation Pulmonary HTN Viagra, outpatient follow up Right heart failure EF 55 to 60,no acute exacerbation, continue oral Lasix 40 bid, follow labs as needed Diabetes/hyperglycemia blood sugars in acceptable range continue lantus, SSI, metformin and Sitagliptin schizoaffective disorder Continue home Depakote, haloperidol DVT prophylaxis: Lovenox Code status: Full code. Confirmed with the patient's guardian [facility] proxy invoked. Lacks capacity for medical decision, awaiting permanent placement Need for inpatient : awaiting placement Quality Stroke Does the patient have a stroke diagnosis?: No VTE Prior VTE?: No VTE Risk Level:: Medical - moderate - high VTE Device Contraindication: Treatment Not Indicated VTE Drug Contraindication: N/A - Med Ordered
[2022-04-04 14:33] LABS: Creatinine Clr Calc Pharmacy 83.1; Estimated Glomerular Filt Rate > 60
[2022-04-04 15:21] VITALS: BP 94/57; PULSE 82; RESP 18; TEMP 36.4; O2SAT 98
[2022-04-04 16:13] LABS: Glucose, Whole Blood 141 mg/dL (60-115)
[2022-04-04] MEDS: Divalproex Sodium ER 250 MG TAB.ER.24H PO (17:09)
[2022-04-04] MEDS: Furosemide 40 MG TABLET PO (17:09)
[2022-04-04] MEDS: Sildenafil Citrate 20 MG TABLET PO (19:31)
[2022-04-04] MEDS: Ferrous Sulfate 324 MG TABLET.DR PO (19:31)
[2022-04-04 21:02] LABS: Glucose, Whole Blood 144 mg/dL (60-115)
--- NOTE | 2022-04-04 23:46 | PC.NURSE ---
Patient agitated ,pacing around the hallway, RN learned during report at 1900 that patient was brought back from a parking lot.Reassured patient,1:[address],refused insulin,refused Lovenox.
[2022-04-05 07:15] VITALS: BP 94/65; PULSE 65; RESP 18; TEMP 36; O2SAT 92
[2022-04-05 07:21] LABS: Glucose, Whole Blood 139 mg/dL (60-115)
[2022-04-05] MEDS: SITagliptin Phosphate 100 MG TABLET PO (08:33)
[2022-04-05] MEDS: metFORMIN HCl 500 MG TABLET PO (08:33)
[2022-04-05] MEDS: HaloperidoL 5 MG TABLET 10 MG PO ×2 (08:33→20:56)
[2022-04-05 11:30] LABS: Glucose, Whole Blood 177 mg/dL (60-115)
--- NOTE | 2022-04-05 12:50 | P.PNIM_ITS ---
Subjective Subjective Date of Service: 04/05/22 Interval History: Being followed for placement, lying comfortably no acute complaints tolerating diet no nausea no vomiting. Events from last night noted patient was brought back from prior taking lot. Review of Systems Review of Systems: Yes all other systems are reviewed and are negative Physical Exam Vital Signs: Vital Signs: Last Vital Signs Temp 96.8 F 04/05/22 07:15 Pulse 65 04/05/22 07:15 Resp 18 04/05/22 07:15 BP 94/65 04/05/22 07:15 Pulse Ox 92 04/05/22 07:15 O2 Del Method 04/05/22 07:15 O2 Flow Rate 2 02/16/22 07:18 FiO2 94 02/13/22 15:38 BMI result Body Mass Index 21.8 Const: Other: General: AO X 2, no acute distress Neck no JVD Resp:?CTA bilateral CVS:?S1,S2,RRR GI: +BS, NT, no distention Skin: No rash Neuro:? motor grossly intact Psych: flat affect Objective Data Active Medications Acetaminophen (Acetaminophen 325 Mg Tablet) 650 mg PO Q6H PRN PRN Reason: Pain, Mild (Pain Scale 1-3) Atorvastatin Calcium (Atorvastatin Calcium 40 Mg Tablet) 40 mg PO DAILY [facility] Last Admin: 04/05/22 08:35 Dose: Not Given Documented By: LEYDA Non-Admin Reason: Patient Refused Dextrose (Dextrose 50 % 25 Gm/50 Ml Syringe) 25 gm IVPUSH Q15M PRN; Protocol PRN Reason: per Hypoglycemia Standing Ord. Divalproex Sodium (Divalproex Sodium Er 250 Mg Tab.Er.24h) 250 mg PO DAILY@1700 [facility] Last Admin: 04/04/22 17:09 Dose: 250 mg Documented By: LEYDA Divalproex Sodium (Divalproex Sodium Er 500 Mg Tab.Er.24h) 500 mg PO DAILY [facility] Last Admin: 04/05/22 08:36 Dose: Not Given Documented By: LEYDA Non-Admin Reason: Patient Refused Enoxaparin Sodium (Enoxaparin Sodium 40 Mg/0.4 Ml Syringe) 40 mg SUBCUT Q24H [facility] Last Admin: 04/04/22 19:34 Dose: Not Given Documented By: NATHAN Non-Admin Reason: Patient Refused Ferrous Sulfate (Ferrous Sulfate 324 Mg Tablet.) 324 mg PO BID [facility] Last Admin: 04/05/22 08:35 Dose: Not Given Documented By: LEYDA Non-Admin Reason: Patient Refused Fluticasone Propionate (Fluticasone Propionate Nasal 16 Gm [place]) 1 spray NOSTRIL-B BID [facility] Last Admin: 04/05/22 08:35 Dose: Not Given Documented By: LEYDA Non-Admin Reason: Patient Refused Furosemide (Furosemide 40 Mg Tablet) 40 mg PO BID@0900,1800 [facility]; Protocol Last Admin: 04/05/22 08:36 Dose: Not Given Documented By: LEYDA Non-Admin Reason: Patient Refused Glucose (Glucose Gel 15 Gm Gel..Gram.) 15 gm PO Q15M PRN; Protocol PRN Reason: per Hypoglycemia Standing Ord. Haloperidol (Haloperidol 5 Mg Tablet) 10 mg PO BID [facility] Last Admin: 04/05/22 08:33 Dose: 10 mg Documented By: LEYDA Insulin Glargine (Insulin Glargine,Hum.Rec.Anlog 100 Unit/Ml 10 Ml Vial) 10 unit SUBCUT BEDTIME [facility] Last Admin: 04/04/22 21:15 Dose: Not Given Documented By: NATHAN Non-Admin Reason: No Insulin Coverage Insulin Human Lispro (Insulin Lispro 100 Unit/Ml 3 Ml Vial) 0 unit SUBCUT QIDACHS [facility]; Protocol Last Admin: 04/05/22 11:30 Dose: Not Given Documented By: LEYDA Non-Admin Reason: Patient Refused Comments: PATIENT REFUSED COVERAGE BEFORE LUNCH. Melatonin (Melatonin 3 Mg Tablet) 6 mg PO BEDTIME PRN PRN Reason: Insomnia Last Admin: 03/26/22 19:42 Dose: 6 mg Documented By: CASTILScooby Metformin HCl (Metformin Hcl 500 Mg Tablet) 500 mg PO BIDWM [facility] Last Admin: 04/05/22 08:33 Dose: 500 mg Documented By: LEYDA Neomycin/Polymyxin/Hydrocortisone (Neomycin/Polymyxin/Hc Otic Melanie 10 Ml Drpbtl) 3 drop EAR-RIGHT QID [facility] Last Admin: 04/05/22 11:26 Dose: Not Given Documented By: LEYDA Non-Admin Reason: Patient Refused Olanzapine (Olanzapine Odt 10 Mg Tab.Rapdis) 5 mg TRANSLINGU BID PRN PRN Reason: agitation, psychosis Last Admin: 03/15/22 19:48 Dose: 5 mg Documented By: GENIE Omeprazole (Omeprazole 20 Mg Capsule.) 20 mg PO DAILY@0630 [facility] Last Admin: 04/05/22 05:59 Dose: Not Given Documented By: KEVIN Non-Admin Reason: Patient Refused Senna (Sennosides 8.6 Mg Tablet) 17.2 mg PO BEDTIME PRN PRN Reason: Constipation Sildenafil Citrate (Sildenafil Citrate 20 Mg Tablet) 20 mg PO TID [facility] Last Admin: 04/05/22 08:37 Dose: Not Given Documented By: LEYDA Non-Admin Reason: Patient Refused Sitagliptin Phosphate (Sitagliptin Phosphate 100 Mg Tablet) 100 mg PO DAILY [facility] Last Admin: 04/05/22 08:33 Dose: 100 mg Documented By: LEYDA Sodium Chloride (0.9 % Sodium Chloride Flush 3 Ml Syringe) 3 ml IVFLUSH QSHIFT [facility] Last Admin: 04/05/22 08:29 Dose: Not Given Documented By: LEYDA Non-Admin Reason: No Access Labs CBC & Chem 7: 01/16/22 05:35 04/04/22 13:46 Labs: Laboratory Results - last 24 hr 04/04/22 04/04/22 04/04/22 13:46 15:25 20:56 Estim Creat Clear Calc 83.1 Estimated GFR > 60 POC Glucose 141 H 144 H 04/05/22 04/05/22 07:16 11:26 Estim Creat Clear Calc Estimated GFR POC Glucose 139 H 177 H Assessment and Plan (1) Pulmonary hypertension: Status: Acute Plan 61-year-old male with a past medical history of schizophrenia, CHF, asthma/COPD, diabetes, hyperlipidemia [facility] with a chief complaint of acute hypoxia. Noted to have following conditions No new medical issues. labs 04/03-wnl Acute hypoxic respiratory failure on presentation suspected d/t COPD/asthma/CHF. Resolved, currently finger oximetry 92% on room. Acute asthma/COPD No acute symptoms, continue bronchodilator, Patient has no formal diagnosis. Patient is supposed to be following up with pulmonology as outpatient. He had similar presentation in December 2021. Pulmonary HTN Viagra, outpatient follow up Right heart failure EF 55 to 60,no acute exacerbation, continue oral Lasix 40 bid, follow labs as needed Diabetes/hyperglycemia blood sugars in acceptable range continue lantus, SSI, metformin and Sitagliptin schizoaffective disorder Continue home Depakote, haloperidol DVT prophylaxis: Lovenox Code status: Full code. Confirmed with the patient's guardian [facility] proxy invoked. Lacks capacity for medical decision, awaiting permanent placement Need for inpatient : awaiting placement Quality Stroke Does the patient have a stroke diagnosis?: No VTE Prior VTE?: No VTE Risk Level:: Medical - moderate - high VTE Device Contraindication: Treatment Not Indicated VTE Drug Contraindication: N/A - Med Ordered
--- NOTE | 2022-04-05 15:09 | MHC.CM.PN ---
DARBY Cordova met with patient. Patient was upset and didn't want anyone in his room. Tasha was able to talk with him and he allowed her visit. Tasha reports she will try to come see patient weekly on . She shared there is nothing [facility] can offer patient; They don't have appropriate environment, (he is a flight risk), or have any openings. She shared DM is Not involved with patient but his guardian should reach out to them and ask them to come evaluate him for services. She reports she knows patient from when he was part of the [facility] homeless service. She reports she found him to be better then when he was enriquez-handling and using substances. He told her he wants to leave and asked her if she could help him find a place, she informed him she could not. ILEANA and DARBY TEJEDA will reach out to patient's guardian, ILEANA to ask her to make a [facility] referral and Tasha to report on how she feels patient is doing.
[2022-04-05 20:43] LABS: Glucose, Whole Blood 245 mg/dL (60-115)
[2022-04-05] MEDS: Ferrous Sulfate 324 MG TABLET.DR PO (20:56)
[2022-04-05] MEDS: Melatonin 3 MG TABLET 6 MG PO (20:56)
[2022-04-05] MEDS: Sildenafil Citrate 20 MG TABLET PO (20:56)
[2022-04-05] MEDS: Insulin Glargine,Hum.rec.anlog 100 UNIT/ML 10 ML VIAL 10 UNIT SUBCUT (20:56)
[2022-04-06 07:16] VITALS: BP 116/72; PULSE 64; RESP 18; TEMP 37.2; O2SAT 97
[2022-04-06 07:31] LABS: Glucose, Whole Blood 141 mg/dL (60-115)
[2022-04-06] MEDS: HaloperidoL 5 MG TABLET 10 MG PO ×2 (08:30→20:24)
[2022-04-06] MEDS: metFORMIN HCl 500 MG TABLET PO (08:31)
[2022-04-06 11:35] LABS: Glucose, Whole Blood 135 mg/dL (60-115)
--- NOTE | 2022-04-06 12:15 | HO.PM.IMPN ---
Subjective Subjective Date of Service: 04/06/22 Interval History: Being followed for placement, no acute events overnight, patient has sitter, patient offers no acute complaints Review of Systems Review of Systems: Yes all other systems are reviewed and are negative Physical Exam Vital Signs: Vital Signs: Last Vital Signs Temp 98.9 F 04/06/22 07:16 Pulse 64 04/06/22 07:16 Resp 18 04/06/22 07:16 BP 116/72 04/06/22 07:16 Pulse Ox 97 04/06/22 07:16 O2 Del Method 04/06/22 07:16 O2 Flow Rate 2 02/16/22 07:18 FiO2 94 02/13/22 15:38 BMI result Body Mass Index 21.8 Const: Other: General: AO X 2, no acute distress, resting comfortably Neck no JVD Resp:?CTA bilateral CVS:?S1,S2,RRR GI: +BS, NT, no distention Skin: No rash Neuro:? motor grossly intact Psych: flat affect Objective Data Active Medications Acetaminophen (Acetaminophen 325 Mg Tablet) 650 mg PO Q6H PRN PRN Reason: Pain, Mild (Pain Scale 1-3) Atorvastatin Calcium (Atorvastatin Calcium 40 Mg Tablet) 40 mg PO DAILY [facility] Last Admin: 04/06/22 08:31 Dose: Not Given Documented By: LEYDA Non-Admin Reason: Patient Refused Dextrose (Dextrose 50 % 25 Gm/50 Ml Syringe) 25 gm IVPUSH Q15M PRN; Protocol PRN Reason: per Hypoglycemia Standing Ord. Divalproex Sodium (Divalproex Sodium Er 250 Mg Tab.Er.24h) 250 mg PO DAILY@1700 [facility] Last Admin: 04/05/22 16:40 Dose: Not Given Documented By: LEYDA Non-Admin Reason: Patient Refused Divalproex Sodium (Divalproex Sodium Er 500 Mg Tab.Er.24h) 500 mg PO DAILY [facility] Last Admin: 04/06/22 08:31 Dose: Not Given Documented By: LEYDA Non-Admin Reason: Patient Refused Enoxaparin Sodium (Enoxaparin Sodium 40 Mg/0.4 Ml Syringe) 40 mg SUBCUT Q24H [facility] Last Admin: 04/05/22 21:01 Dose: Not Given Documented By: ANA Non-Admin Reason: Patient Refused Ferrous Sulfate (Ferrous Sulfate 324 Mg Tablet.) 324 mg PO BID [facility] Last Admin: 04/06/22 08:31 Dose: Not Given Documented By: LEYDA Non-Admin Reason: Patient Refused Fluticasone Propionate (Fluticasone Propionate Nasal 16 Gm [place]) 1 spray NOSTRIL-B BID [facility] Last Admin: 04/06/22 08:31 Dose: Not Given Documented By: LEYDA Non-Admin Reason: Patient Refused Furosemide (Furosemide 40 Mg Tablet) 40 mg PO BID@0900,1800 [facility]; Protocol Last Admin: 04/06/22 08:32 Dose: Not Given Documented By: LEYDA Non-Admin Reason: Patient Refused Glucose (Glucose Gel 15 Gm Gel..Gram.) 15 gm PO Q15M PRN; Protocol PRN Reason: per Hypoglycemia Standing Ord. Haloperidol (Haloperidol 5 Mg Tablet) 10 mg PO BID [facility] Last Admin: 04/06/22 08:30 Dose: 10 mg Documented By: LEYDA Insulin Glargine (Insulin Glargine,Hum.Rec.Anlog 100 Unit/Ml 10 Ml Vial) 10 unit SUBCUT BEDTIME [facility] Last Admin: 04/05/22 20:56 Dose: 10 unit Documented By: ANA Insulin Human Lispro (Insulin Lispro 100 Unit/Ml 3 Ml Vial) 0 unit SUBCUT QIDACHS [facility]; Protocol Last Admin: 04/06/22 11:39 Dose: Not Given Documented By: LEYDA Non-Admin Reason: Patient Refused Melatonin (Melatonin 3 Mg Tablet) 6 mg PO BEDTIME PRN PRN Reason: Insomnia Last Admin: 04/05/22 20:56 Dose: 6 mg Documented By: ANA Metformin HCl (Metformin Hcl 500 Mg Tablet) 500 mg PO BIDWM [facility] Last Admin: 04/06/22 08:31 Dose: 500 mg Documented By: LEYDA Neomycin/Polymyxin/Hydrocortisone (Neomycin/Polymyxin/Hc Otic Melanie 10 Ml Drpbtl) 3 drop EAR-RIGHT QID [facility] Last Admin: 04/06/22 11:39 Dose: Not Given Documented By: LEYDA Non-Admin Reason: Patient Refused Olanzapine (Olanzapine Odt 10 Mg Tab.Rapdis) 5 mg TRANSLINGU BID PRN PRN Reason: agitation, psychosis Last Admin: 03/15/22 19:48 Dose: 5 mg Documented By: GENIE Omeprazole (Omeprazole 20 Mg Capsule.) 20 mg PO DAILY@0630 [facility] Last Admin: 04/06/22 05:43 Dose: Not Given Documented By: ANA Non-Admin Reason: Patient Refused Senna (Sennosides 8.6 Mg Tablet) 17.2 mg PO BEDTIME PRN PRN Reason: Constipation Sildenafil Citrate (Sildenafil Citrate 20 Mg Tablet) 20 mg PO TID [facility] Last Admin: 04/06/22 08:32 Dose: Not Given Documented By: LEYDA Non-Admin Reason: Patient Refused Sitagliptin Phosphate (Sitagliptin Phosphate 100 Mg Tablet) 100 mg PO DAILY [facility] Last Admin: 04/06/22 08:32 Dose: Not Given Documented By: LEYDA Non-Admin Reason: Patient Refused Sodium Chloride (0.9 % Sodium Chloride Flush 3 Ml Syringe) 3 ml IVFLUSH QSHIFT [facility] Last Admin: 04/06/22 08:32 Dose: Not Given Documented By: LEYDA Non-Admin Reason: No Access Labs CBC & Chem 7: 01/16/22 05:35 04/04/22 13:46 Labs: Laboratory Results - last 24 hr 04/05/22 04/06/22 04/06/22 20:37 07:15 11:03 POC Glucose 245 H 141 H 135 H Assessment and Plan (1) Pulmonary hypertension: Status: Acute Plan 61-year-old male with a past medical history of schizophrenia, CHF, asthma/COPD, diabetes, hyperlipidemia [place] with a chief complaint of acute hypoxia. Noted to have following conditions No new medical issues. labs 04/03-wnl Acute hypoxic respiratory failure on presentation suspected d/t COPD/asthma/CHF. Resolved, currently finger oximetry 92% on room. Acute asthma/COPD No acute symptoms, continue bronchodilator, Patient has no formal diagnosis. Patient is supposed to be following up with pulmonology as outpatient. He had similar presentation in December 2021. Pulmonary HTN Asymptomatic, Viagra, outpatient follow up Right heart failure EF 55 to 60,no acute exacerbation, continue oral Lasix 40 bid, follow labs as needed Diabetes/hyperglycemia blood sugars less than 150 in acceptable range continue lantus, SSI, metformin and Sitagliptin schizoaffective disorder Continue home Depakote, haloperidol DVT prophylaxis: Lovenox Code status: Full code. Confirmed with the patient's guardian [facility] proxy invoked. Lacks capacity for medical decision, awaiting permanent placement Need for inpatient : awaiting placement Quality Stroke Does the patient have a stroke diagnosis?: No VTE Prior VTE?: No VTE Risk Level:: Medical - moderate - high VTE Device Contraindication: Treatment Not Indicated VTE Drug Contraindication: N/A - Med Ordered
[2022-04-06 15:45] VITALS: BP 101/65; PULSE 70; RESP 18; TEMP 36.6; O2SAT 96
[2022-04-06 15:50] LABS: Glucose, Whole Blood 183 mg/dL (60-115)
[2022-04-06 19:38] VITALS: BP 104/80; PULSE 60; RESP 16; TEMP 37.1; O2SAT 96
[2022-04-06 20:15] LABS: Glucose, Whole Blood 166 mg/dL (60-115)
[2022-04-06] MEDS: Insulin Glargine,Hum.rec.anlog 100 UNIT/ML 10 ML VIAL 10 UNIT SUBCUT (20:23)
[2022-04-06] MEDS: Ferrous Sulfate 324 MG TABLET.DR PO (20:24)
[2022-04-06] MEDS: Sildenafil Citrate 20 MG TABLET PO (20:24)
[2022-04-07] VITALS: BP 91/50; PULSE 55; RESP 16; TEMP 37.1; O2SAT 95
[2022-04-07 07:25] VITALS: BP 113/69; PULSE 56; RESP 18; TEMP 36.5; O2SAT 96
[2022-04-07] MEDS: metFORMIN HCl 500 MG TABLET PO ×2 (07:45→17:23)
[2022-04-07] MEDS: Furosemide 40 MG TABLET PO ×2 (07:46→17:23)
[2022-04-07] MEDS: HaloperidoL 5 MG TABLET 10 MG PO (07:48)
[2022-04-07] MEDS: Divalproex Sodium ER 500 MG TAB.ER.24H PO (07:53)
[2022-04-07 07:54] LABS: Glucose, Whole Blood 131 mg/dL (60-115)
--- NOTE | 2022-04-07 10:51 | P.PNIM_ITS ---
Subjective Subjective Date of Service: 04/07/22 Interval History: Being followed for placement, no acute events overnight, no behavioral issues, offers no acute complaints, has sitter in room since patient was found at parking lot couple days ago brought back by security. Review of Systems Review of Systems: Yes all other systems are reviewed and are negative Physical Exam Vital Signs: Vital Signs: Last Vital Signs Temp 97.7 F 04/07/22 07:25 Pulse 56 04/07/22 07:25 Resp 18 04/07/22 07:25 BP 113/69 04/07/22 07:25 Pulse Ox 96 04/07/22 07:25 O2 Del Method 04/07/22 07:25 O2 Flow Rate 2 02/16/22 07:18 FiO2 94 02/13/22 15:38 BMI result Body Mass Index 21.8 Const: Other: General: AO X 2, no acute distress, resting comfortably Neck no JVD Resp:?CTA bilateral CVS:?S1,S2,RRR GI: +BS, NT, no distention Skin: No rash Neuro:? motor grossly intact Psych: flat affect Objective Data Active Medications Acetaminophen (Acetaminophen 325 Mg Tablet) 650 mg PO Q6H PRN PRN Reason: Pain, Mild (Pain Scale 1-3) Atorvastatin Calcium (Atorvastatin Calcium 40 Mg Tablet) 40 mg PO DAILY [facility] Last Admin: 04/06/22 08:31 Dose: Not Given Documented By: LEYDA Non-Admin Reason: Patient Refused Dextrose (Dextrose 50 % 25 Gm/50 Ml Syringe) 25 gm IVPUSH Q15M PRN; Protocol PRN Reason: per Hypoglycemia Standing Ord. Divalproex Sodium (Divalproex Sodium Er 250 Mg Tab.Er.24h) 250 mg PO DAILY@1700 [facility] Last Admin: 04/06/22 17:03 Dose: Not Given Documented By: LEYDA Non-Admin Reason: Patient Refused Divalproex Sodium (Divalproex Sodium Er 500 Mg Tab.Er.24h) 500 mg PO DAILY [facility] Last Admin: 04/07/22 07:53 Dose: 500 mg Documented By: LAMAR Enoxaparin Sodium (Enoxaparin Sodium 40 Mg/0.4 Ml Syringe) 40 mg SUBCUT Q24H [facility] Last Admin: 04/06/22 20:26 Dose: Not Given Documented By: SAVAGE Non-Admin Reason: Patient Refused Ferrous Sulfate (Ferrous Sulfate 324 Mg Tablet.Dr) 324 mg PO BID [facility] Last Admin: 04/07/22 07:53 Dose: Not Given Documented By: LAMAR Non-Admin Reason: Patient Refused Fluticasone Propionate (Fluticasone Propionate Nasal 16 Gm [place]) 1 spray NOSTRIL-B BID [facility] Last Admin: 04/06/22 20:26 Dose: Not Given Documented By: SAVAGE Non-Admin Reason: Patient Refused Furosemide (Furosemide 40 Mg Tablet) 40 mg PO BID@0900,1800 [facility]; Protocol Last Admin: 04/07/22 07:46 Dose: 40 mg Documented By: LAMAR Glucose (Glucose Gel 15 Gm Gel..Gram.) 15 gm PO Q15M PRN; Protocol PRN Reason: per Hypoglycemia Standing Ord. Haloperidol (Haloperidol 5 Mg Tablet) 10 mg PO BID [facility] Last Admin: 04/07/22 07:48 Dose: 10 mg Documented By: LAMAR Insulin Glargine (Insulin Glargine,Hum.Rec.Anlog 100 Unit/Ml 10 Ml Vial) 10 unit SUBCUT BEDTIME [facility] Last Admin: 04/06/22 20:23 Dose: 10 unit Documented By: SAVAGE Insulin Human Lispro (Insulin Lispro 100 Unit/Ml 3 Ml Vial) 0 unit SUBCUT QIDACHS [facility]; Protocol Last Admin: 04/07/22 07:53 Dose: Not Given Documented By: LAMAR Non-Admin Reason: No Insulin Coverage Melatonin (Melatonin 3 Mg Tablet) 6 mg PO BEDTIME PRN PRN Reason: Insomnia Last Admin: 04/05/22 20:56 Dose: 6 mg Documented By: ANA Metformin HCl (Metformin Hcl 500 Mg Tablet) 500 mg PO BIDWM [facility] Last Admin: 04/07/22 07:45 Dose: 500 mg Documented By: LAMAR Neomycin/Polymyxin/Hydrocortisone (Neomycin/Polymyxin/Hc Otic Melanie 10 Ml Drpbtl) 3 drop EAR-RIGHT QID [facility] Last Admin: 04/06/22 20:27 Dose: Not Given Documented By: SAVAGE Non-Admin Reason: Patient Refused Olanzapine (Olanzapine Odt 10 Mg Tab.Rapdis) 5 mg TRANSLINGU BID PRN PRN Reason: agitation, psychosis Last Admin: 03/15/22 19:48 Dose: 5 mg Documented By: GENIE Omeprazole (Omeprazole 20 Mg Capsule.) 20 mg PO DAILY@0630 [facility] Last Admin: 04/07/22 05:36 Dose: Not Given Documented By: SAVAGE Non-Admin Reason: Patient Refused Senna (Sennosides 8.6 Mg Tablet) 17.2 mg PO BEDTIME PRN PRN Reason: Constipation Sildenafil Citrate (Sildenafil Citrate 20 Mg Tablet) 20 mg PO TID [facility] Last Admin: 04/07/22 07:54 Dose: Not Given Documented By: LAMAR Non-Admin Reason: Patient Refused Sitagliptin Phosphate (Sitagliptin Phosphate 100 Mg Tablet) 100 mg PO DAILY [facility] Last Admin: 04/07/22 07:55 Dose: Not Given Documented By: LAMAR Non-Admin Reason: Patient Refused Sodium Chloride (0.9 % Sodium Chloride Flush 3 Ml Syringe) 3 ml IVFLUSH QSHIFT [facility] Last Admin: 04/07/22 08:00 Dose: Not Given Documented By: LAMAR Non-Admin Reason: No Access Labs CBC & Chem 7: 01/16/22 05:35 04/04/22 13:46 Labs: Laboratory Results - last 24 hr 04/06/22 04/06/22 04/06/22 11:03 15:43 20:04 POC Glucose 135 H 183 H 166 H 04/07/22 07:23 POC Glucose 131 H Assessment and Plan (1) Pulmonary hypertension: Status: Acute Plan 61-year-old male with a past medical history of schizophrenia, CHF, asthma/COPD, diabetes, hyperlipidemia presented from the retirement with a chief complaint of acute hypoxia. Noted to have following conditions No new medical issues. Has sitter in room since 2 days ago patient was found in a parking lot, case discussed with nursing glycerin supervisor patient will continue to have sitter over the weekend. labs 04/03-wnl Acute hypoxic respiratory failure on presentation suspected d/t COPD/asthma/CHF. Resolved, currently finger oximetry 92% on room. Acute asthma/COPD No acute symptoms, continue bronchodilator, Patient has no formal diagnosis. Maikol lionel is supposed to be following up with pulmonology as outpatient. He had similar presentation in December 2021. Pulmonary HTN Asymptomatic, Viagra, outpatient follow up Right heart failure EF 55 to 60,no acute exacerbation, continue oral Lasix 40 bid, follow labs as needed Diabetes/hyperglycemia blood sugars less than 150 in acceptable range continue lantus, SSI, metformin and Sitagliptin schizoaffective disorder Continue home Depakote, haloperidol DVT prophylaxis: Lovenox Code status: Full code. Confirmed with the patient's guardian [facility] proxy invoked. Lacks capacity for medical decision, awaiting permanent placement Need for inpatient : awaiting placement Quality Stroke Does the patient have a stroke diagnosis?: No VTE Prior VTE?: No VTE Risk Level:: Medical - moderate - high VTE Device Contraindication: Treatment Not Indicated VTE Drug Contraindication: N/A - Med Ordered
[2022-04-07] MEDS: Atorvastatin Calcium 40 MG TABLET PO (13:07)
[2022-04-07] MEDS: Sildenafil Citrate 20 MG TABLET PO (15:22)
[2022-04-07 15:53] VITALS: BP 103/65; PULSE 84; RESP 15; TEMP 36.3; O2SAT 95
[2022-04-07 16:01] LABS: Glucose, Whole Blood 201 mg/dL (60-115)
[2022-04-07] MEDS: Insulin Lispro 100 UNIT/ML 3 ML VIAL SUBCUT (17:22)
[2022-04-07] MEDS: Divalproex Sodium ER 250 MG TAB.ER.24H PO (17:23)
[2022-04-07 20:16] LABS: Glucose, Whole Blood 191 mg/dL (60-115)
[2022-04-07 23:54] VITALS: BP 113/70; PULSE 93; RESP 16; TEMP 36.4; O2SAT 94
[2022-04-08 07:27] VITALS: BP 101/68; PULSE 66; RESP 18; TEMP 37.1; O2SAT 92
[2022-04-08 07:56] LABS: Glucose, Whole Blood 116 mg/dL (60-115)
--- NOTE | 2022-04-08 08:34 | P.PNIM_ITS ---
Subjective Subjective Date of Service: 04/08/22 Interval History: Being followed for placement, no acute events overnight, no behavioral issues, offers no acute complaints Review of Systems Review of Systems: Yes all other systems are reviewed and are negative Physical Exam Vital Signs: Vital Signs: Last Vital Signs Temp 98.7 F 04/08/22 07:27 Pulse 66 04/08/22 07:27 Resp 18 04/08/22 07:27 BP 101/68 04/08/22 07:27 Pulse Ox 92 04/08/22 07:27 O2 Del Method 04/08/22 07:27 O2 Flow Rate 2 02/16/22 07:18 FiO2 94 02/13/22 15:38 BMI result Body Mass Index 21.8 Appearing in no acute distress lung sounds are clear to auscultation heart regular rate rhythm positive bowel sounds neuro patient is alert Objective Data Active Medications Acetaminophen (Acetaminophen 325 Mg Tablet) 650 mg PO Q6H PRN PRN Reason: Pain, Mild (Pain Scale 1-3) Atorvastatin Calcium (Atorvastatin Calcium 40 Mg Tablet) 40 mg PO DAILY [facility] Last Admin: 04/08/22 07:30 Dose: Not Given Documented By: MT Non-Admin Reason: Patient Refused Dextrose (Dextrose 50 % 25 Gm/50 Ml Syringe) 25 gm IVPUSH Q15M PRN; Protocol PRN Reason: per Hypoglycemia Standing Ord. Divalproex Sodium (Divalproex Sodium Er 250 Mg Tab.Er.24h) 250 mg PO DAILY@1700 [facility] Last Admin: 04/07/22 17:23 Dose: 250 mg Documented By: LAMAR Divalproex Sodium (Divalproex Sodium Er 500 Mg Tab.Er.24h) 500 mg PO DAILY [facility] Last Admin: 04/08/22 07:30 Dose: Not Given Documented By: MT Non-Admin Reason: Patient Refused Enoxaparin Sodium (Enoxaparin Sodium 40 Mg/0.4 Ml Syringe) 40 mg SUBCUT Q24H [facility] Last Admin: 04/07/22 20:42 Dose: Not Given Documented By: SAVAGE Non-Admin Reason: Patient Refused Ferrous Sulfate (Ferrous Sulfate 324 Mg Tablet.) 324 mg PO BID [facility] Last Admin: 04/08/22 07:30 Dose: Not Given Documented By: MT Non-Admin Reason: Patient Refused Fluticasone Propionate (Fluticasone Propionate Nasal 16 Gm [place]) 1 spray NOSTRIL-B BID [facility] Last Admin: 04/08/22 07:30 Dose: Not Given Documented By: MT Non-Admin Reason: Patient Refused Furosemide (Furosemide 40 Mg Tablet) 40 mg PO BID@0900,1800 [facility]; Protocol Last Admin: 04/08/22 07:30 Dose: Not Given Documented By: MT Non-Admin Reason: Patient Refused Glucose (Glucose Gel 15 Gm Gel..Gram.) 15 gm PO Q15M PRN; Protocol PRN Reason: per Hypoglycemia Standing Ord. Haloperidol (Haloperidol 5 Mg Tablet) 10 mg PO BID [facility] Last Admin: 04/08/22 07:30 Dose: Not Given Documented By: MT Non-Admin Reason: Patient Refused Insulin Glargine (Insulin Glargine,Hum.Rec.Anlog 100 Unit/Ml 10 Ml Vial) 10 unit SUBCUT BEDTIME [facility] Last Admin: 04/07/22 20:43 Dose: Not Given Documented By: NICRISM Non-Admin Reason: Patient Refused Insulin Human Lispro (Insulin Lispro 100 Unit/Ml 3 Ml Vial) 0 unit SUBCUT QIDACHS [facility]; Protocol Last Admin: 04/08/22 07:29 Dose: Not Given Documented By: MT Non-Admin Reason: No Insulin Coverage Melatonin (Melatonin 3 Mg Tablet) 6 mg PO BEDTIME PRN PRN Reason: Insomnia Last Admin: 04/05/22 20:56 Dose: 6 mg Documented By: ANA Metformin HCl (Metformin Hcl 500 Mg Tablet) 500 mg PO BIDWM [facility] Last Admin: 04/08/22 07:29 Dose: Not Given Documented By: MT Non-Admin Reason: Patient Refused Neomycin/Polymyxin/Hydrocortisone (Neomycin/Polymyxin/Hc Otic Melanie 10 Ml Drpbtl) 3 drop EAR-RIGHT QID [facility] Last Admin: 04/08/22 07:30 Dose: Not Given Documented By: MT Non-Admin Reason: Patient Refused Olanzapine (Olanzapine Odt 10 Mg Tab.Rapdis) 5 mg TRANSLINGU BID PRN PRN Reason: agitation, psychosis Last Admin: 03/15/22 19:48 Dose: 5 mg Documented By: GENIE Omeprazole (Omeprazole 20 Mg Capsule.Dr) 20 mg PO DAILY@0630 [facility] Last Admin: 04/08/22 05:44 Dose: Not Given Documented By: SAVAGE Non-Admin Reason: Patient Refused Senna (Sennosides 8.6 Mg Tablet) 17.2 mg PO BEDTIME PRN PRN Reason: Constipation Sildenafil Citrate (Sildenafil Citrate 20 Mg Tablet) 20 mg PO TID [facility] Last Admin: 04/08/22 07:30 Dose: Not Given Documented By: MT Non-Admin Reason: Patient Refused Sitagliptin Phosphate (Sitagliptin Phosphate 100 Mg Tablet) 100 mg PO DAILY [facility] Last Admin: 04/08/22 07:31 Dose: Not Given Documented By: MT Non-Admin Reason: Patient Refused Sodium Chloride (0.9 % Sodium Chloride Flush 3 Ml Syringe) 3 ml IVFLUSH QSHIFT [facility] Last Admin: 04/08/22 07:29 Dose: Not Given Documented By: MT Non-Admin Reason: No Access Labs CBC & Chem 7: 01/16/22 05:35 04/04/22 13:46 Labs: Laboratory Results - last 24 hr 04/07/22 04/07/22 04/08/22 15:56 20:11 07:26 POC Glucose 201 H 191 H 116 H Assessment and Plan (1) Pulmonary hypertension: Status: Acute Plan 61-year-old male with a past medical history of schizophrenia, CHF, asthma/COPD, diabetes, hyperlipidemia presented from the long term with a chief complaint of acute hypoxia. Noted to have following conditions No new medical issues. Had sitter in room since he was found in a parking lot labs 04/03-wnl Acute hypoxic respiratory failure on presentation suspected d/t COPD/asthma/CHF. Resolved, currently finger oximetry 92% on room. Acute asthma/COPD No acute symptoms, continue bronchodilator, Patient has no formal diagnosis. Patient is supposed to be following up with pulmonology as outpatient. He had similar presentation in December 2021. Pulmonary HTN Asymptomatic, Viagra, outpatient follow up Right heart failure EF 55 to 60,no acute exacerbation, continue oral Lasix 40 bid, follow labs as needed Diabetes/hyperglycemia blood sugars less than 150 in acceptable range continue lantus, SSI, metformin and Sitagliptin schizoaffective disorder Continue home Depakote, haloperidol DVT prophylaxis: Lovenox Code status: Full code. Confirmed with the patient's guardian [facility] proxy invoked. Lacks capacity for medical decision, awaiting permanent placement attending Dr. Angel Need for inpatient : awaiting placement Quality Stroke Does the patient have a stroke diagnosis?: No VTE Prior VTE?: No VTE Risk Level:: Medical - moderate - high VTE Device Contraindication: Treatment Not Indicated VTE Drug Contraindication: N/A - Med Ordered
[2022-04-08 12:18] LABS: Glucose, Whole Blood 162 mg/dL (60-115)
[2022-04-08] MEDS: Sildenafil Citrate 20 MG TABLET PO ×2 (15:08→20:14)
[2022-04-08 15:44] VITALS: BP 110/66; PULSE 76; RESP 18; TEMP 36.5; O2SAT 95
[2022-04-08 16:10] LABS: Glucose, Whole Blood 210 mg/dL (60-115)
--- NOTE | 2022-04-08 16:20 | PC.NURSE ---
pt alert and orinted x3. This afternoon, around 1350, pt walked out of the unit tghrought the back stairway into the parking lot downstairs. At the time , some staff while others were busy helping other pts.Pt was brought back in by security and staff who went after the pt. Pt continues on 1:1 observation for elopment.
[2022-04-08] MEDS: Divalproex Sodium ER 250 MG TAB.ER.24H PO (16:38)
[2022-04-08] MEDS: Insulin Lispro 100 UNIT/ML 3 ML VIAL SUBCUT (16:39)
[2022-04-08] MEDS: Furosemide 40 MG TABLET PO (16:39)
[2022-04-08] MEDS: metFORMIN HCl 500 MG TABLET PO (16:39)
[2022-04-08 19:45] LABS: Glucose, Whole Blood 141 mg/dL (60-115)
[2022-04-08] MEDS: Insulin Glargine,Hum.rec.anlog 100 UNIT/ML 10 ML VIAL 10 UNIT SUBCUT (20:14)
[2022-04-08] MEDS: Ferrous Sulfate 324 MG TABLET.DR PO (20:14)
[2022-04-08] MEDS: HaloperidoL 5 MG TABLET 10 MG PO (20:14)
[2022-04-09] VITALS: BP 105/66; PULSE 57; RESP 18; TEMP 36.2; O2SAT 94
[2022-04-09 07:42] VITALS: BP 94/61; PULSE 62; RESP 17; TEMP 36.7; O2SAT 97
[2022-04-09 07:50] LABS: Glucose, Whole Blood 140 mg/dL (60-115)
[2022-04-09] MEDS: Sildenafil Citrate 20 MG TABLET PO ×2 (09:22→14:54)
[2022-04-09] MEDS: metFORMIN HCl 500 MG TABLET PO ×2 (09:22→17:02)
[2022-04-09] MEDS: SITagliptin Phosphate 100 MG TABLET PO (09:22)
[2022-04-09] MEDS: Ferrous Sulfate 324 MG TABLET.DR PO (09:22)
[2022-04-09] MEDS: Furosemide 40 MG TABLET PO ×2 (09:22→17:02)
[2022-04-09] MEDS: HaloperidoL 5 MG TABLET 10 MG PO (09:22)
[2022-04-09] MEDS: Divalproex Sodium ER 500 MG TAB.ER.24H PO (09:22)
[2022-04-09] MEDS: Atorvastatin Calcium 40 MG TABLET PO (09:22)
--- NOTE | 2022-04-09 10:58 | P.PNIM_ITS ---
Subjective Subjective Date of Service: 04/09/22 Interval History: Being followed for placement, no acute events overnight, no behavioral issues, offers no acute complaints Review of Systems Review of Systems: Yes all other systems are reviewed and are negative Physical Exam Vital Signs: Vital Signs: Last Vital Signs Temp 98.1 F 04/09/22 07:42 Pulse 62 04/09/22 07:42 Resp 17 04/09/22 07:42 BP 94/61 04/09/22 07:42 Pulse Ox 97 04/09/22 07:42 O2 Del Method 04/09/22 07:42 O2 Flow Rate 2 02/16/22 07:18 FiO2 94 02/13/22 15:38 BMI result Body Mass Index 21.8 Declined Objective Data Active Medications Acetaminophen (Acetaminophen 325 Mg Tablet) 650 mg PO Q6H PRN PRN Reason: Pain, Mild (Pain Scale 1-3) Atorvastatin Calcium (Atorvastatin Calcium 40 Mg Tablet) 40 mg PO DAILY [facility] Last Admin: 04/09/22 09:22 Dose: 40 mg Documented By: TRUDI Dextrose (Dextrose 50 % 25 Gm/50 Ml Syringe) 25 gm IVPUSH Q15M PRN; Protocol PRN Reason: per Hypoglycemia Standing Ord. Divalproex Sodium (Divalproex Sodium Er 250 Mg Tab.Er.24h) 250 mg PO DAILY@1700 [facility] Last Admin: 04/08/22 16:38 Dose: 250 mg Documented By: KAYLAN Divalproex Sodium (Divalproex Sodium Er 500 Mg Tab.Er.24h) 500 mg PO DAILY [facility] Last Admin: 04/09/22 09:22 Dose: 500 mg Documented By: TRUDI Enoxaparin Sodium (Enoxaparin Sodium 40 Mg/0.4 Ml Syringe) 40 mg SUBCUT Q24H [facility] Last Admin: 04/08/22 20:16 Dose: Not Given Documented By: DENISE Non-Admin Reason: Patient Refused Ferrous Sulfate (Ferrous Sulfate 324 Mg [place].) 324 mg PO BID [facility] Last Admin: 04/09/22 09:22 Dose: 324 mg Documented By: TRUDI Fluticasone Propionate (Fluticasone Propionate Nasal 16 Gm [place]) 1 spray NOSTRIL-B BID [facility] Last Admin: 04/09/22 09:26 Dose: Not Given Documented By: HO.N-ARMKA Non-Admin Reason: Patient Refused Furosemide (Furosemide 40 Mg Tablet) 40 mg PO BID@0900,1800 [facility]; Protocol Last Admin: 04/09/22 09:22 Dose: 40 mg Documented By: TRUDI Glucose (Glucose Gel 15 Gm Gel..Gram.) 15 gm PO Q15M PRN; Protocol PRN Reason: per Hypoglycemia Standing Ord. Haloperidol (Haloperidol 5 Mg Tablet) 10 mg PO BID [facility] Last Admin: 04/09/22 09:22 Dose: 10 mg Documented By: TRUDI Insulin Glargine (Insulin Glargine,Hum.Rec.Anlog 100 Unit/Ml 10 Ml Vial) 10 unit SUBCUT BEDTIME [facility] Last Admin: 04/08/22 20:14 Dose: 10 unit Documented By: DENISE Insulin Human Lispro (Insulin Lispro 100 Unit/Ml 3 Ml Vial) 0 unit SUBCUT QIDACHS [facility]; Protocol Last Admin: 04/09/22 08:09 Dose: Not Given Documented By: TRUDI Non-Admin Reason: No Insulin Coverage Melatonin (Melatonin 3 Mg Tablet) 6 mg PO BEDTIME PRN PRN Reason: Insomnia Last Admin: 04/05/22 20:56 Dose: 6 mg Documented By: ANA Metformin HCl (Metformin Hcl 500 Mg Tablet) 500 mg PO BIDWM [facility] Last Admin: 04/09/22 09:22 Dose: 500 mg Documented By: TRUDI Neomycin/Polymyxin/Hydrocortisone (Neomycin/Polymyxin/Hc Otic Melanie 10 Ml Drpbtl) 3 drop EAR-RIGHT QID [facility] Last Admin: 04/09/22 09:25 Dose: Not Given Documented By: TRUDI Non-Admin Reason: Patient Refused Olanzapine (Olanzapine Odt 10 Mg Tab.Rapdis) 5 mg TRANSLINGU BID PRN PRN Reason: agitation, psychosis Last Admin: 03/15/22 19:48 Dose: 5 mg Documented By: GENIE Omeprazole (Omeprazole 20 Mg Capsule.) 20 mg PO DAILY@0630 [facility] Last Admin: 04/09/22 05:39 Dose: Not Given Documented By: DENISE Non-Admin Reason: Patient Refused Senna (Sennosides 8.6 Mg Tablet) 17.2 mg PO BEDTIME PRN PRN Reason: Constipation Sildenafil Citrate (Sildenafil Citrate 20 Mg Tablet) 20 mg PO TID [facility] Last Admin: 04/09/22 09:22 Dose: 20 mg Documented By: TRUDI Sitagliptin Phosphate (Sitagliptin Phosphate 100 Mg Tablet) 100 mg PO DAILY [facility] Last Admin: 04/09/22 09:22 Dose: 100 mg Documented By: TRUDI Sodium Chloride (0.9 % Sodium Chloride Flush 3 Ml Syringe) 3 ml IVFLUSH QSHIFT [facility] Last Admin: 04/09/22 08:09 Dose: Not Given Documented By: TRUDI Non-Admin Reason: No Access Labs CBC & Chem 7: 01/16/22 05:35 04/04/22 13:46 Labs: Laboratory Results - last 24 hr 04/08/22 04/08/22 04/08/22 12:13 15:47 19:27 POC Glucose 162 H 210 H 141 H 04/09/22 07:44 POC Glucose 140 H Assessment and Plan (1) Pulmonary hypertension: Status: Acute Plan 61-year-old male with a past medical history of schizophrenia, CHF, asthma/COPD, diabetes, hyperlipidemia presented from the long-term with a chief complaint of acute hypoxia. Noted to have following conditions No new medical issues. Had another episode of elopement on 04/08, went on the back steps and out the Emergency door was found outside by scared and staff, now with sitter and camera in the room labs 04/03-wnl Acute hypoxic respiratory failure on presentation suspected d/t COPD/asthma/CHF. Resolved, currently finger oximetry 92% on room. Acute asthma/COPD No acute symptoms, continue bronchodilator, Patient has no formal diagnosis. Patient is supposed to be following up with pulmonology as outpatient. He had similar presentation in December 2021. Pulmonary HTN Asymptomatic, Viagra, outpatient follow up Right heart failure EF 55 to 60,no acute exacerbation, continue oral Lasix 40 bid, follow labs as needed Diabetes/hyperglycemia blood sugars less than 150 in acceptable range continue lantus, SSI, metformin and Sitagliptin schizoaffective disorder Continue home Depakote, haloperidol DVT prophylaxis: Lovenox Code status: Full code. Confirmed with the patient's guardian [facility] proxy invoked. Lacks capacity for medical decision, awaiting perma nent placement attending Dr. Angel Need for inpatient : awaiting placement Quality Stroke Does the patient have a stroke diagnosis?: No VTE Prior VTE?: No VTE Risk Level:: Medical - moderate - high VTE Device Contraindication: Treatment Not Indicated VTE Drug Contraindication: N/A - Med Ordered
[2022-04-09 11:33] LABS: Glucose, Whole Blood 133 mg/dL (60-115)
[2022-04-09 15:40] LABS: Glucose, Whole Blood 194 mg/dL (60-115)
[2022-04-09 16:00] VITALS: BP 104/67; PULSE 89; RESP 20; TEMP 36.8; O2SAT 94
[2022-04-09] MEDS: Insulin Lispro 100 UNIT/ML 3 ML VIAL SUBCUT (17:00)
[2022-04-09] MEDS: Divalproex Sodium ER 250 MG TAB.ER.24H PO (17:02)
[2022-04-09 19:26] LABS: Glucose, Whole Blood 189 mg/dL (60-115)
[2022-04-09 23:21] VITALS: BP 112/67; PULSE 61; RESP 18; TEMP 36.7; O2SAT 96
[2022-04-10 07:24] VITALS: BP 108/70; PULSE 68; RESP 17; TEMP 36.2; O2SAT 97
[2022-04-10 07:32] LABS: Glucose, Whole Blood 141 mg/dL (60-115)
--- NOTE | 2022-04-10 08:38 | HO.PM.IMPN ---
Subjective Subjective Date of Service: 04/10/22 Interval History: Being followed for placement, no acute events overnight, no behavioral issues, offers no acute complaints No further episodes of elopement Review of Systems Review of Systems: Yes all other systems are reviewed and are negative Physical Exam Vital Signs: Vital Signs: Last Vital Signs Temp 97.2 F 04/10/22 07:24 Pulse 68 04/10/22 07:24 Resp 17 04/10/22 07:24 BP 108/70 04/10/22 07:24 Pulse Ox 97 04/10/22 07:24 O2 Del Method 04/10/22 07:24 O2 Flow Rate 2 02/16/22 07:18 FiO2 94 02/13/22 15:38 BMI result Body Mass Index 21.8 declined Objective Data Active Medications Atorvastatin Calcium (Atorvastatin Calcium 40 Mg Tablet) 40 mg PO DAILY [facility] Last Admin: 04/09/22 09:22 Dose: 40 mg Documented By: TRUDI Divalproex Sodium (Divalproex Sodium Er 250 Mg Tab.Er.24h) 250 mg PO DAILY@1700 [facility] Last Admin: 04/09/22 17:02 Dose: 250 mg Documented By: TRUDI Divalproex Sodium (Divalproex Sodium Er 500 Mg Tab.Er.24h) 500 mg PO DAILY [facility] Last Admin: 04/09/22 09:22 Dose: 500 mg Documented By: TRUDI Furosemide (Furosemide 40 Mg Tablet) 40 mg PO BID@0900,1800 [facility]; Protocol Last Admin: 04/09/22 17:02 Dose: 40 mg Documented By: TRUDI Metformin HCl (Metformin Hcl 500 Mg Tablet) 500 mg PO BIDWM [facility] Last Admin: 04/09/22 17:02 Dose: 500 mg Documented By: TRUDI Olanzapine (Olanzapine Odt 10 Mg Tab.Rapdis) 5 mg TRANSLINGU BID PRN PRN Reason: agitation, psychosis Last Admin: 03/15/22 19:48 Dose: 5 mg Documented By: GENIE Sildenafil Citrate (Sildenafil Citrate 20 Mg Tablet) 20 mg PO TID [facility] Last Admin: 04/09/22 21:50 Dose: Not Given Documented By: DENISE Non-Admin Reason: Patient Refused Sitagliptin Phosphate (Sitagliptin Phosphate 100 Mg Tablet) 100 mg PO DAILY [facility] Last Admin: 04/09/22 09:22 Dose: 100 mg Documented By: TRUDI Labs CBC & Chem 7: 01/16/22 05:35 04/04/22 13:46 Labs: Laboratory Results - last 24 hr 04/09/22 04/09/22 04/09/22 11:21 14:59 19:17 POC Glucose 133 H 194 H 189 H 04/10/22 07:27 POC Glucose 141 H Assessment and Plan (1) Pulmonary hypertension: Status: Acute Plan 61-year-old male with a past medical history of schizophrenia, CHF, asthma/COPD, diabetes, hyperlipidemia presented from the halfway with a chief complaint of acute hypoxia. Noted to have following conditions No new medical issues. Had another episode of elopement on 04/08, went on the back steps and out the Emergency door was found outside by Security and staff, now with sitter and camera in the room labs 04/03-wnl Acute hypoxic respiratory failure on presentation suspected d/t COPD/asthma/CHF. Resolved, currently finger oximetry 92% on room. Acute asthma/COPD No acute symptoms, continue bronchodilator, Patient has no formal diagnosis. Patient is supposed to be following up with pulmonology as outpatient. He had similar presentation in December 2021. Pulmonary HTN Asymptomatic, Viagra, outpatient follow up Right heart failure EF 55 to 60,no acute exacerbation, continue oral Lasix 40 bid, follow labs as needed Diabetes/hyperglycemia blood sugars less than 150 in acceptable range continue lantus, SSI, metformin and Sitagliptin schizoaffective disorder Continue home Depakote, haloperidol DVT prophylaxis: Lovenox Code status: Full code. Confirmed with the patient's guardian [facility] proxy invoked. Lacks capacity for medical decision, awaiting permanent placement attending Dr. Angel Need for inpatient : awaiting placement Quality Stroke Does the patient have a stroke diagnosis?: No VTE Prior VTE?: No VTE Risk Level:: Medical - moderate - high VTE Device Contraindication: Treatment Not Indicated VTE Drug Contraindication: N/A - Med Ordered
[2022-04-10] MEDS: Furosemide 40 MG TABLET PO ×2 (08:45→17:10)
[2022-04-10] MEDS: Sildenafil Citrate 20 MG TABLET PO ×2 (08:46→15:42)
[2022-04-10] MEDS: SITagliptin Phosphate 100 MG TABLET PO (08:46)
[2022-04-10] MEDS: metFORMIN HCl 500 MG TABLET PO ×2 (08:46→17:10)
[2022-04-10] MEDS: Atorvastatin Calcium 40 MG TABLET PO (08:46)
[2022-04-10] MEDS: Divalproex Sodium ER 500 MG TAB.ER.24H PO (08:47)
[2022-04-10 11:20] LABS: Glucose, Whole Blood 192 mg/dL (60-115)
[2022-04-10 16:09] VITALS: BP 96/61; PULSE 61; RESP 14; TEMP 36.6; O2SAT 97
[2022-04-10 16:14] LABS: Glucose, Whole Blood 190 mg/dL (60-115)
[2022-04-10] MEDS: Insulin Lispro 100 UNIT/ML 3 ML VIAL SUBCUT (17:10)
[2022-04-10] MEDS: Divalproex Sodium ER 250 MG TAB.ER.24H PO (17:10)
[2022-04-10 20:38] LABS: Glucose, Whole Blood 120 mg/dL (60-115)
[2022-04-10] MEDS: Ferrous Sulfate 324 MG TABLET.DR PO (21:00)
[2022-04-10] MEDS: Insulin Glargine,Hum.rec.anlog 100 UNIT/ML 10 ML VIAL 10 UNIT SUBCUT (21:00)
[2022-04-11 07:45] VITALS: BP 106/75; PULSE 61; RESP 17; TEMP 36.5; O2SAT 97
[2022-04-11 07:52] LABS: Glucose, Whole Blood 128 mg/dL (60-115)
[2022-04-11 11:36] LABS: Glucose, Whole Blood 139 mg/dL (60-115)
--- NOTE | 2022-04-11 13:50 | HO.PM.IMPN ---
Subjective Subjective Date of Service: 04/11/22 Interval History: being followed for placement, patient offers no acute complaints, no behavioral issues noted Review of Systems Review of Systems: Yes all other systems are reviewed and are negative Physical Exam Vital Signs: Vital Signs: Last Vital Signs Temp 97.7 F 04/11/22 07:45 Pulse 61 04/11/22 07:45 Resp 17 04/11/22 07:45 BP 106/75 04/11/22 07:45 Pulse Ox 97 04/11/22 07:45 O2 Del Method 04/11/22 07:45 O2 Flow Rate 2 02/16/22 07:18 FiO2 94 02/13/22 15:38 BMI result Body Mass Index 21.8 Const: Other: General: AO X 2, n o acute distress, resting comfortabl y Neck no JVD Resp :?CTA bilateral CV S:?S1,S2,RRR GI: + BS, NT, no distent ion Skin: No rash Neuro:? motor marilin sly intact Psych: flat affect Objective Data Active Medications Acetaminophen (Acetaminophen 325 Mg Tablet) 650 mg PO Q6H PRN PRN Reason: Pain, Mild (Pain Scale 1-3) Atorvastatin Calcium (Atorvastatin Calcium 40 Mg Tablet) 40 mg PO DAILY [facility] Last Admin: 04/11/22 09:32 Dose: Not Given Documented By: WES Non-Admin Reason: Patient Refused Dextrose (Dextrose 50 % 25 Gm/50 Ml Syringe) 25 gm IVPUSH Q15M PRN; Protocol PRN Reason: per Hypoglycemia Standing Ord. Divalproex Sodium (Divalproex Sodium Er 250 Mg Tab.Er.24h) 250 mg PO DAILY@1700 [facility] Last Admin: 04/10/22 17:10 Dose: 250 mg Documented By: TRUDI Divalproex Sodium (Divalproex Sodium Er 500 Mg Tab.Er.24h) 500 mg PO DAILY [facility] Last Admin: 04/11/22 09:32 Dose: Not Given Documented By: WES Non-Admin Reason: Patient Refused Ferrous Sulfate (Ferrous Sulfate 324 Mg Tablet.) 324 mg PO BID [facility] Last Admin: 04/11/22 09:33 Dose: Not Given Documented By: WES Non-Admin Reason: Patient Refused Fluticasone Propionate (Fluticasone Propionate Nasal 16 Gm [place]) 1 spray NOSTRIL-B BID [facility] Last Admin: 04/11/22 09:33 Dose: Not Given Documented By: WES Non-Admin Reason: Patient Refused Furosemide (Furosemide 40 Mg Tablet) 40 mg PO BID@0900,1800 [facility]; Protocol Last Admin: 04/11/22 09:33 Dose: Not Given Documented By: WES Non-Admin Reason: Patient Refused Glucose (Glucose Gel 15 Gm Gel..Gram.) 15 gm PO Q15M PRN; Protocol PRN Reason: per Hypoglycemia Standing Ord. Haloperidol (Haloperidol 5 Mg Tablet) 10 mg PO BID [facility] Last Admin: 04/11/22 09:33 Dose: Not Given Documented By: WES Non-Admin Reason: Patient Refused Insulin Glargine (Insulin Glargine,Hum.Rec.Anlog 100 Unit/Ml 10 Ml Vial) 10 unit SUBCUT BEDTIME [facility] Last Admin: 04/10/22 21:00 Dose: 10 unit Documented By: BRIELLE Insulin Human Lispro (Insulin Lispro 100 Unit/Ml 3 Ml Vial) 0 unit SUBCUT QIDACHS [facility]; Protocol Last Admin: 04/11/22 11:40 Dose: Not Given Documented By: WES Non-Admin Reason: No Insulin Coverage Melatonin (Melatonin 3 Mg Tablet) 6 mg PO BEDTIME PRN PRN Reason: Insomnia Last Admin: 04/05/22 20:56 Dose: 6 mg Documented By: ANA Metformin HCl (Metformin Hcl 500 Mg Tablet) 500 mg PO BIDWM [facility] Last Admin: 04/11/22 09:32 Dose: Not Given Documented By: WES Non-Admin Reason: Patient Refused Neomycin/Polymyxin/Hydrocortisone (Neomycin/Polymyxin/Hc Otic Melanie 10 Ml Drpbtl) 3 drop EAR-RIGHT QID [facility] Last Admin: 04/11/22 13:08 Dose: Not Given Documented By: WES Non-Admin Reason: Patient Refused Olanzapine (Olanzapine Odt 10 Mg Tab.Rapdis) 5 mg TRANSLINGU BID PRN PRN Reason: agitation, psychosis Last Admin: 03/15/22 19:48 Dose: 5 mg Documented By: GENIE Omeprazole (Omeprazole 20 Mg Capsule.Dr) 20 mg PO DAILY@0630 [facility] Last Admin: 04/11/22 05:31 Dose: Not Given Documented By: BRIELLE Non-Admin Reason: Patient Refused Senna (Sennosides 8.6 Mg Tablet) 17.2 mg PO BEDTIME PRN PRN Reason: Constipation Sildenafil Citrate (Sildenafil Citrate 20 Mg Tablet) 20 mg PO TID [facility] Last Admin: 04/11/22 09:33 Dose: Not Given Documented By: WES Non-Admin Reason: Patient Refused Sitagliptin Phosphate (Sitagliptin Phosphate 100 Mg Tablet) 100 mg PO DAILY [facility] Last Admin: 04/11/22 09:33 Dose: Not Given Documented By: WES Non-Admin Reason: Patient Refused Sodium Chloride (0.9 % Sodium Chloride Flush 3 Ml Syringe) 3 ml IVFLUSH QSHIFT [facility] Last Admin: 04/11/22 09:32 Dose: Not Given Documented By: WES Non-Admin Reason: No Access Labs CBC & Chem 7: 01/16/22 05:35 04/04/22 13:46 Labs: Laboratory Results - last 24 hr 04/10/22 04/10/22 04/11/22 16:03 20:35 07:47 POC Glucose 190 H 120 H 128 H 04/11/22 11:32 POC Glucose 139 H Assessment and Plan (1) Pulmonary hypertension: Status: Acute Plan 61-year-old male with a past medical history of schizophrenia, CHF, asthma/COPD, diabetes, hyperlipidemia presented from the custodial with a chief complaint of acute hypoxia. Noted to have following conditions No new medical issues. Had another episode of elopement on 04/08, went on the back steps and out the Emergency door was found outside by Security and staff, now with sitter and camera in the room labs 04/03-wnl Acute hypoxic respiratory failure on presentation suspected d/t COPD/asthma/CHF. Resolved, currently finger oximetry 92% on room. Acute asthma/COPD No acute symptoms, continue bronchodilator, Patient has no formal diagnosis. Patient is supposed to be following up with pulmonology as outpatient. He had similar presentation in December 2021. Pulmonary HTN Asymptomatic, continue Viagra, outpatient follow up Right heart failure EF 55 to 60,no acute exacerbation, continue oral Lasix 40 bid, follow labs as needed Diabetes/hyperglycemia blood sugars in acceptable range continue lantus, SSI, metformin and Sitagliptin schizoaffective disorder Continue home Depakote, haloperidol DVT prophylaxis: Lovenox Code status: Full code. Confirmed with the patient's guardian [facility] proxy invoked. Lacks capacity for medical decision, awaiting permanent placement Need for inpatient : awaiting placement Quality Stroke Does the patient have a stroke diagnosis?: No VTE Prior VTE?: No VTE Risk Level:: Medical - moderate - high VTE Device Contraindication: Treatment Not Indicated VTE Drug Contraindication: N/A - Med Ordered
[2022-04-11 16:00] VITALS: BP 93/61; PULSE 56; RESP 18; TEMP 36.8; O2SAT 97
[2022-04-11 16:49] LABS: Glucose, Whole Blood 104 mg/dL (60-115)
[2022-04-11] MEDS: HaloperidoL 5 MG TABLET 10 MG PO (19:48)
[2022-04-11] MEDS: Sildenafil Citrate 20 MG TABLET PO (19:49)
[2022-04-11] MEDS: Ferrous Sulfate 324 MG TABLET.DR PO (19:49)
[2022-04-11] MEDS: Insulin Glargine,Hum.rec.anlog 100 UNIT/ML 10 ML VIAL 10 UNIT SUBCUT (19:49)
[2022-04-11 19:58] LABS: Glucose, Whole Blood 191 mg/dL (60-115)
[2022-04-11 23:46] VITALS: BP 106/66; PULSE 52; RESP 18; TEMP 36.1; O2SAT 96
[2022-04-12 07:21] VITALS: BP 101/65; PULSE 65; RESP 18; TEMP 36.6; O2SAT 95
[2022-04-12 07:30] LABS: Glucose, Whole Blood 138 mg/dL (60-115)
[2022-04-12] MEDS: Furosemide 40 MG TABLET PO ×2 (09:11→17:08)
[2022-04-12] MEDS: Atorvastatin Calcium 40 MG TABLET PO (09:11)
[2022-04-12] MEDS: SITagliptin Phosphate 100 MG TABLET PO (09:11)
[2022-04-12] MEDS: HaloperidoL 5 MG TABLET 10 MG PO (09:11)
[2022-04-12] MEDS: Sildenafil Citrate 20 MG TABLET PO ×2 (09:11→15:12)
[2022-04-12] MEDS: Divalproex Sodium ER 500 MG TAB.ER.24H PO (09:11)
[2022-04-12] MEDS: metFORMIN HCl 500 MG TABLET PO ×2 (09:11→17:08)
[2022-04-12] MEDS: Ferrous Sulfate 324 MG TABLET.DR PO (09:11)
--- NOTE | 2022-04-12 11:01 | HO.PM.IMPN ---
Subjective Subjective Date of Service: 04/12/22 Interval History: Being followed for placement patient has 247 sitter no further attempts to leave the hospital, no overnight issues, offers no acute complaints, soft blood pressures seems like baseline. Tolerating diet, no nausea, no vomiting, no diarrhea. Review of Systems Review of Systems: Yes all other systems are reviewed and are negative Physical Exam Vital Signs: Vital Signs: Last Vital Signs Temp 97.9 F 04/12/22 07:21 Pulse 65 04/12/22 07:21 Resp 18 04/12/22 07:21 BP 101/65 04/12/22 07:21 Pulse Ox 95 04/12/22 07:21 O2 Del Method 04/12/22 07:21 O2 Flow Rate 2 02/16/22 07:18 FiO2 94 02/13/22 15:38 BMI result Body Mass Index 21.8 Const: Other: General: AO X 2, no acute distress Neck no JVD Resp:?CTA bilateral CVS:?S1,S2,RRR GI: +BS, NT, no distention Skin: No rash Neuro:? motor grossly intact Psych: flat affect Objective Data Active Medications Acetaminophen (Acetaminophen 325 Mg Tablet) 650 mg PO Q6H PRN PRN Reason: Pain, Mild (Pain Scale 1-3) Atorvastatin Calcium (Atorvastatin Calcium 40 Mg Tablet) 40 mg PO DAILY [facility] Last Admin: 04/12/22 09:11 Dose: 40 mg Documented By: TRUDI Dextrose (Dextrose 50 % 25 Gm/50 Ml Syringe) 25 gm IVPUSH Q15M PRN; Protocol PRN Reason: per Hypoglycemia Standing Ord. Divalproex Sodium (Divalproex Sodium Er 250 Mg Tab.Er.24h) 250 mg PO DAILY@1700 [facility] Last Admin: 04/11/22 17:16 Dose: Not Given Documented By: WES Non-Admin Reason: Patient Refused Divalproex Sodium (Divalproex Sodium Er 500 Mg Tab.Er.24h) 500 mg PO DAILY [facility] Last Admin: 04/12/22 09:11 Dose: 500 mg Documented By: TRUDI Ferrous Sulfate (Ferrous Sulfate 324 Mg Tablet.) 324 mg PO BID [facility] Last Admin: 04/12/22 09:11 Dose: 324 mg Documented By: TRUDI Fluticasone Propionate (Fluticasone Propionate Nasal 16 Gm [place]) 1 spray NOSTRIL-B BID [facility] Last Admin: 04/12/22 09:12 Dose: Not Given Documented By: TRUDI Non-Admin Reason: Patient Refused Furosemide (Furosemide 40 Mg Tablet) 40 mg PO BID@0900,1800 [facility]; Protocol Last Admin: 04/12/22 09:11 Dose: 40 mg Documented By: TRUDI Glucose (Glucose Gel 15 Gm Gel..Gram.) 15 gm PO Q15M PRN; Protocol PRN Reason: per Hypoglycemia Standing Ord. Haloperidol (Haloperidol 5 Mg Tablet) 10 mg PO BID [facility] Last Admin: 04/12/22 09:11 Dose: 10 mg Documented By: TRUDI Insulin Glargine (Insulin Glargine,Hum.Rec.Anlog 100 Unit/Ml 10 Ml Vial) 10 unit SUBCUT BEDTIME [facility] Last Admin: 04/11/22 19:49 Dose: 10 unit Documented By: SAVAGE Insulin Human Lispro (Insulin Lispro 100 Unit/Ml 3 Ml Vial) 0 unit SUBCUT QIDACHS [facility]; Protocol Last Admin: 04/12/22 07:49 Dose: Not Given Documented By: TRUDI Non-Admin Reason: No Insulin Coverage Melatonin (Melatonin 3 Mg Tablet) 6 mg PO BEDTIME PRN PRN Reason: Insomnia Last Admin: 04/05/22 20:56 Dose: 6 mg Documented By: ANA Metformin HCl (Metformin Hcl 500 Mg Tablet) 500 mg PO BIDWM [facility] Last Admin: 04/12/22 09:11 Dose: 500 mg Documented By: TRUDI Neomycin/Polymyxin/Hydrocortisone (Neomycin/Polymyxin/Hc Otic Melanie 10 Ml Drpbtl) 3 drop EAR-RIGHT QID [facility] Last Admin: 04/12/22 09:12 Dose: Not Given Documented By: TRUDI Non-Admin Reason: Patient Refused Olanzapine (Olanzapine Odt 10 Mg Tab.Rapdis) 5 mg TRANSLINGU BID PRN PRN Reason: agitation, psychosis Last Admin: 03/15/22 19:48 Dose: 5 mg Documented By: GENIE Omeprazole (Omeprazole 20 Mg Capsule.Dr) 20 mg PO DAILY@0630 [facility] Last Admin: 04/12/22 05:48 Dose: Not Given Documented By: SAVAGE Non-Admin Reason: Patient Refused Senna (Sennosides 8.6 Mg Tablet) 17.2 mg PO BEDTIME PRN PRN Reason: Constipation Sildenafil Citrate (Sildenafil Citrate 20 Mg Tablet) 20 mg PO TID [facility] Last Admin: 04/12/22 09:11 Dose: 20 mg Documented By: TRUDI Sitagliptin Phosphate (Sitagliptin Phosphate 100 Mg Tablet) 100 mg PO DAILY [facility] Last Admin: 04/12/22 09:11 Dose: 100 mg Documented By: TRUDI Sodium Chloride (0.9 % Sodium Chloride Flush 3 Ml Syringe) 3 ml IVFLUSH QSHIFT [facility] Last Admin: 04/12/22 07:49 Dose: Not Given Documented By: TRUDI Non-Admin Reason: No Access Labs CBC & Chem 7: 01/16/22 05:35 04/04/22 13:46 Labs: Laboratory Results - last 24 hr 04/11/22 04/11/22 04/11/22 11:32 16:33 19:36 POC Glucose 139 H 104 191 H 04/12/22 07:24 POC Glucose 138 H Assessment and Plan (1) Pulmonary hypertension: Status: Acute Plan 61-year-old male with a past medical history of schizophrenia, CHF, asthma/COPD, diabetes, hyperlipidemia [facility] chief complaint of acute [facility]. Noted to have following conditions No new medical issues. No further episodes of elopement, continue sitter, Camera in room Acute hypoxic respiratory failure on presentation suspected d/t COPD/asthma/CHF. Resolved, currently finger oximetry 92% on room. Acute asthma/COPD No acute symptoms, continue bronchodilator, Patient has no formal diagnosis. Patient is supposed to be following up with pulmonology as outpatient. He had similar presentation in December 2021. Pulmonary HTN Asymptomatic, continue Viagra, outpatient follow up Right heart failure EF 55 to 60,no acute exacerbation, continue oral Lasix 40 bid, follow labs as needed, soft blood pressure will follow BMP Diabetes/hyperglycemia blood sugars in acceptable range continue lantus, SSI, metformin and Sitagliptin schizoaffective disorder Continue home Depakote, haloperidol DVT prophylaxis: Lovenox Code status: Full code. Confirmed with the patient's guardian [facility] proxy invoked. Lacks capacity for medical decision, awaiting permanent placement Need for inpatient : awaiting placement Quality Stroke Does the patient have a stroke diagnosis?: No VTE Prior VTE?: No VTE Risk Level:: Medical - moderate - high VTE Device Contraindication: Treatment Not Indicated VTE Drug Contraindication: N/A - Med Ordered
[2022-04-12 11:36] LABS: Glucose, Whole Blood 181 mg/dL (60-115)
[2022-04-12] MEDS: Insulin Lispro 100 UNIT/ML 3 ML VIAL SUBCUT (12:05)
[2022-04-12 14:55] VITALS: BP 93/57; PULSE 82; RESP 18; TEMP 37; O2SAT 95
[2022-04-12 16:06] LABS: Glucose, Whole Blood 136 mg/dL (60-115)
[2022-04-12] MEDS: Divalproex Sodium ER 250 MG TAB.ER.24H PO (17:08)
[2022-04-12 19:56] LABS: Glucose, Whole Blood 151 mg/dL (60-115)
[2022-04-13] VITALS: BP 97/68; PULSE 70; RESP 18; TEMP 36.6; O2SAT 94
[2022-04-13 07:19] VITALS: BP 98/57; RESP 16; TEMP 36.6; O2SAT 96
[2022-04-13 09:09] LABS: Glucose, Whole Blood 146 mg/dL (60-115)
--- NOTE | 2022-04-13 11:05 | PC.NURSE ---
pt refusing all morning medications. Gretchen Gillespie aware.
[2022-04-13 11:31] LABS: Glucose, Whole Blood 213 mg/dL (60-115)
[2022-04-13] MEDS: Insulin Lispro 100 UNIT/ML 3 ML VIAL SUBCUT (11:57)
[2022-04-13 13:02] LABS: Anion Gap 16 (12-20); Blood Urea Nitrogen 19 mg/dL (9-16); Carbon Dioxide 25 mmol/L (22-29); Chloride 103 mmol/L (96-108); Creatinine Clr Calc Pharmacy 84.9; Estimated Glomerular Filt Rate > 60; Glucose Random 226 mg/dL (60-115); Potassium 4.5 mmol/L (3.3-5.1); Sodium 139 mmol/L (135-145)
[2022-04-13 14:56] VITALS: BP 92/56; PULSE 84; RESP 16; TEMP 36.1; O2SAT 94
--- NOTE | 2022-04-13 15:36 | HO.PM.IMPN ---
Subjective Subjective Date of Service: 04/13/22 Interval History: seen and examined this morning follow up for placement observed walking around room, awake, alert, appeared in no distress patient not interested in talking this morning so unable to obtain full ROS Physical Exam Vital Signs: Vital Signs: Last Vital Signs Temp 97 F 04/13/22 14:56 Pulse 84 04/13/22 14:56 Resp 16 04/13/22 14:56 BP 92/56 L 04/13/22 14:56 Pulse Ox 94 04/13/22 14:56 O2 Del Method 04/13/22 14:56 O2 Flow Rate 2 02/16/22 07:18 FiO2 94 02/13/22 15:38 BMI result Body Mass Index 21.8 Const: General: alert and awake Nutritional Appearance: average body habitus Resp: Effort & Inspection: normal respiratory effort and able to speak in complete sentences Cardio: Rate: regular rate Heart sounds: S1 normal heart sound present and S2 normal heart sound present Neuro: General: no focal motor deficits Extrem: Other: able to move all 4 extremities spontaneously Objective Data Active Medications Acetaminophen (Acetaminophen 325 Mg Tablet) 650 mg PO Q6H PRN PRN Reason: Pain, Mild (Pain Scale 1-3) Atorvastatin Calcium (Atorvastatin Calcium 40 Mg Tablet) 40 mg PO DAILY [facility] Last Admin: 04/13/22 11:06 Dose: Not Given Documented By: MARK Non-Admin Reason: Patient Refused Dextrose (Dextrose 50 % 25 Gm/50 Ml Syringe) 25 gm IVPUSH Q15M PRN; Protocol PRN Reason: per Hypoglycemia Standing Ord. Divalproex Sodium (Divalproex Sodium Er 250 Mg Tab.Er.24h) 250 mg PO DAILY@1700 [facility] Last Admin: 04/12/22 17:08 Dose: 250 mg Documented By: TRUDI Divalproex Sodium (Divalproex Sodium Er 500 Mg Tab.Er.24h) 500 mg PO DAILY [facility] Last Admin: 04/13/22 11:06 Dose: Not Given Documented By: MARK Non-Admin Reason: Patient Refused Ferrous Sulfate (Ferrous Sulfate 324 Mg Tablet.) 324 mg PO BID [facility] Last Admin: 04/13/22 11:06 Dose: Not Given Documented By: MARK Non-Admin Reason: Patient Refused Fluticasone Propionate (Fluticasone Propionate Nasal 16 Gm [place]) 1 spray NOSTRIL-B BID [facility] Last Admin: 04/13/22 11:07 Dose: Not Given Documented By: MARK Non-Admin Reason: Patient Refused Furosemide (Furosemide 40 Mg Tablet) 40 mg PO BID@0900,1800 [facility]; Protocol Last Admin: 04/13/22 11:07 Dose: Not Given Documented By: MARK Non-Admin Reason: Patient Refused Glucose (Glucose Gel 15 Gm Gel..Gram.) 15 gm PO Q15M PRN; Protocol PRN Reason: per Hypoglycemia Standing Ord. Haloperidol (Haloperidol 5 Mg Tablet) 10 mg PO BID [facility] Last Admin: 04/13/22 11:07 Dose: Not Given Documented By: MARK Non-Admin Reason: Patient Refused Insulin Glargine (Insulin Glargine,Hum.Rec.Anlog 100 Unit/Ml 10 Ml Vial) 10 unit SUBCUT BEDTIME [facility] Last Admin: 04/12/22 20:21 Dose: Not Given Documented By: SAVAGE Non-Admin Reason: Patient Refused Insulin Human Lispro (Insulin Lispro 100 Unit/Ml 3 Ml Vial) 0 unit SUBCUT QIDACHS [facility]; Protocol Last Admin: 04/13/22 11:57 Dose: 4 unit Documented By: MARK Melatonin (Melatonin 3 Mg Tablet) 6 mg PO BEDTIME PRN PRN Reason: Insomnia Last Admin: 04/05/22 20:56 Dose: 6 mg Documented By: ANA Metformin HCl (Metformin Hcl 500 Mg Tablet) 500 mg PO BIDWM [facility] Last Admin: 04/13/22 11:06 Dose: Not Given Documented By: MARK Non-Admin Reason: Patient Refused Neomycin/Polymyxin/Hydrocortisone (Neomycin/Polymyxin/Hc Otic Melanie 10 Ml Drpbtl) 3 drop EAR-RIGHT QID [facility] Last Admin: 04/13/22 12:11 Dose: Not Given Documented By: MARK Non-Admin Reason: Patient Refused Olanzapine (Olanzapine Odt 10 Mg Tab.Rapdis) 5 mg TRANSLINGU BID PRN PRN Reason: agitation, psychosis Last Admin: 03/15/22 19:48 Dose: 5 mg Documented By: GENIE Omeprazole (Omeprazole 20 Mg Capsule.Dr) 20 mg PO DAILY@0630 [facility] Last Admin: 04/13/22 05:43 Dose: Not Given Documented By: SAVAGE Non-Admin Reason: Patient Refused Senna (Sennosides 8.6 Mg Tablet) 17.2 mg PO BEDTIME PRN PRN Reason: Constipation Sildenafil Citrate (Sildenafil Citrate 20 Mg Tablet) 20 mg PO TID [facility] Last Admin: 04/13/22 11:07 Dose: Not Given Documented By: MARK Non-Admin Reason: Patient Refused Sitagliptin Phosphate (Sitagliptin Phosphate 100 Mg Tablet) 100 mg PO DAILY [facility] Last Admin: 04/13/22 11:07 Dose: Not Given Documented By: MARK Non-Admin Reason: Patient Refused Sodium Chloride (0.9 % Sodium Chloride Flush 3 Ml Syringe) 3 ml IVFLUSH QSHIFT [facility] Last Admin: 04/13/22 15:14 Dose: Not Given Documented By: MARK Non-Admin Reason: No Access Labs CBC & Chem 7: 01/16/22 05:35 04/13/22 12:01 Labs: Laboratory Results - last 24 hr 04/12/22 04/12/22 04/13/22 14:58 19:50 09:05 Anion Gap Estim Creat Clear Calc Estimated GFR POC Glucose 136 H 151 H 146 H Random Glucose Calcium 04/13/22 04/13/22 11:17 12:01 Anion Gap 16 Estim Creat Clear Calc 84.9 Estimated GFR > 60 POC Glucose 213 H Random Glucose 226 H D Calcium 9.0 Assessment and Plan (1) Pulmonary hypertension: Status: Acute Plan 61-year-old male with a past medical history of schizophrenia, CHF, asthma/COPD, diabetes, hyperlipidemia presented from the [facility] with a chief complaint of acute hypoxia. Noted to have following conditions No new medical issues. No further episodes of elopement, continue sitter, Camera in room Acute hypoxic respiratory failure on presentation suspected d/t COPD/asthma/CHF. Resolved, currently finger oximetry 92% on room. Acute asthma/COPD No acute symptoms, continue bronchodilator, Patient has no formal diagnosis. Patient is supposed to be following up with pulmonology as outpatient. He had similar presentation in December 2021. Pulmonary HTN Asymptomatic, continue Viagra, outpatient follow up Right heart failure EF 55 to 60,no acute exacerbation, continue oral Lasix 40 bid, follow labs as needed, soft blood pressure will follow BMP Diabetes/hyperglycemia blood sugars in acceptable range continue lantus, SSI, metformin and Sitagliptin schizoaffective disorder Continue home Depakote, haloperidol DVT prophylaxis: Lovenox Code status: Full code. Confirmed with the patient's guardian [facility] proxy invoked. Lacks capacity for medical decision, awaiting permanent placement attending - dr tarango Need for inpatient : awaiting placement Quality Stroke Does the patient have a stroke diagnosis?: No VTE Prior VTE?: No VTE Risk Level:: Medical - moderate - high VTE Device Contraindication: Treatment Not Indicated VTE Drug Contraindication: N/A - Med Ordered
[2022-04-13 16:15] LABS: Glucose, Whole Blood 119 mg/dL (60-115)
[2022-04-13] MEDS: Furosemide 40 MG TABLET PO (17:12)
[2022-04-13] MEDS: metFORMIN HCl 500 MG TABLET PO (17:12)
[2022-04-13] MEDS: Divalproex Sodium ER 250 MG TAB.ER.24H PO (17:12)
[2022-04-13] MEDS: Sildenafil Citrate 20 MG TABLET PO ×2 (17:14→20:22)
[2022-04-13] MEDS: HaloperidoL 5 MG TABLET 10 MG PO (20:21)
[2022-04-13] MEDS: Ferrous Sulfate 324 MG TABLET.DR PO (20:22)
[2022-04-14 07:27] VITALS: BP 93/65; PULSE 69; RESP 18; TEMP 36.2; O2SAT 95
[2022-04-14 07:29] LABS: Glucose, Whole Blood 158 mg/dL (60-115)
[2022-04-14] MEDS: HaloperidoL 5 MG TABLET 10 MG PO ×2 (08:18→21:08)
[2022-04-14] MEDS: SITagliptin Phosphate 100 MG TABLET PO (08:18)
[2022-04-14] MEDS: Divalproex Sodium ER 500 MG TAB.ER.24H PO (08:19)
[2022-04-14] MEDS: Sildenafil Citrate 20 MG TABLET PO ×3 (08:19→21:08)
[2022-04-14] MEDS: Atorvastatin Calcium 40 MG TABLET PO (08:19)
[2022-04-14] MEDS: Insulin Lispro 100 UNIT/ML 3 ML VIAL SUBCUT (08:19)
[2022-04-14] MEDS: Ferrous Sulfate 324 MG TABLET.DR PO ×2 (08:19→21:08)
[2022-04-14] MEDS: Furosemide 40 MG TABLET PO ×2 (08:19→17:00)
[2022-04-14] MEDS: metFORMIN HCl 500 MG TABLET PO ×2 (08:19→17:01)
[2022-04-14 11:25] LABS: Glucose, Whole Blood 104 mg/dL (60-115)
[2022-04-14 16:00] VITALS: BP 95/60; PULSE 69; RESP 15; TEMP 36.2; O2SAT 93
--- NOTE | 2022-04-14 16:00 | P.PNIM_ITS ---
Subjective Subjective Date of Service: 04/14/22 Interval History: Seen and examined this morning Follow-up for placement No overnight events Continues to be frustrated and wants to leave the hospital. no specific complaints today, unable to obtain full ROS as pt uncooperative Physical Exam Vital Signs: Vital Signs: Last Vital Signs Temp 97.1 F 04/14/22 07:27 Pulse 69 04/14/22 07:27 Resp 18 04/14/22 07:27 BP 93/65 04/14/22 07:27 Pulse Ox 95 04/14/22 07:27 O2 Del Method 04/14/22 07:27 O2 Flow Rate 2 02/16/22 07:18 FiO2 94 02/13/22 15:38 BMI result Body Mass Index 21.8 Const: General: no acute distress, alert and awake Nutritional Appearance: average body habitus Resp: Effort & Inspection: normal respiratory effort and able to speak in complete sentences Cardio: Rate: regular rate Heart sounds: S1 normal heart sound present and S2 normal heart sound present GI: Inspection: No distended Palpation (GI): Soft to palpation Neuro: Other: grossly nonfocal Extrem: Other: able to move all four extremities spontaneously Objective Data Active Medications Acetaminophen (Acetaminophen 325 Mg Tablet) 650 mg PO Q6H PRN PRN Reason: Pain, Mild (Pain Scale 1-3) Atorvastatin Calcium (Atorvastatin Calcium 40 Mg Tablet) 40 mg PO DAILY [facility] Last Admin: 04/14/22 08:19 Dose: 40 mg Documented By: TODD Dextrose (Dextrose 50 % 25 Gm/50 Ml Syringe) 25 gm IVPUSH Q15M PRN; Protocol PRN Reason: per Hypoglycemia Standing Ord. Divalproex Sodium (Divalproex Sodium Er 250 Mg Tab.Er.24h) 250 mg PO DAILY@1700 [facility] Last Admin: 04/13/22 17:12 Dose: 250 mg Documented By: MARK Divalproex Sodium (Divalproex Sodium Er 500 Mg Tab.Er.24h) 500 mg PO DAILY [facility] Last Admin: 04/14/22 08:19 Dose: 500 mg Documented By: TODD Ferrous Sulfate (Ferrous Sulfate 324 Mg Tablet.Dr) 324 mg PO BID [facility] Last Admin: 04/14/22 08:19 Dose: 324 mg Documented By: TODD Fluticasone Propionate (Fluticasone Propionate Nasal 16 Gm [place]) 1 spray NOSTRIL-B BID [facility] Last Admin: 04/14/22 08:19 Dose: Not Given Documented By: TODD Non-Admin Reason: Patient Refused Furosemide (Furosemide 40 Mg Tablet) 40 mg PO BID@0900,1800 [facility]; Protocol Last Admin: 04/14/22 08:19 Dose: 40 mg Documented By: TODD Glucose (Glucose Gel 15 Gm Gel..Gram.) 15 gm PO Q15M PRN; Protocol PRN Reason: per Hypoglycemia Standing Ord. Haloperidol (Haloperidol 5 Mg Tablet) 10 mg PO BID [facility] Last Admin: 04/14/22 08:18 Dose: 10 mg Documented By: TODD Insulin Glargine (Insulin Glargine,Hum.Rec.Anlog 100 Unit/Ml 10 Ml Vial) 10 unit SUBCUT BEDTIME [facility] Last Admin: 04/13/22 20:24 Dose: Not Given Documented By: DENISE Non-Admin Reason: Patient Refused Insulin Human Lispro (Insulin Lispro 100 Unit/Ml 3 Ml Vial) 0 unit SUBCUT QIDACHS [facility]; Protocol Last Admin: 04/14/22 12:17 Dose: Not Given Documented By: TODD Non-Admin Reason: No Insulin Coverage Melatonin (Melatonin 3 Mg Tablet) 6 mg PO BEDTIME PRN PRN Reason: Insomnia Last Admin: 04/05/22 20:56 Dose: 6 mg Documented By: ANA Metformin HCl (Metformin Hcl 500 Mg Tablet) 500 mg PO BIDWM [facility] Last Admin: 04/14/22 08:19 Dose: 500 mg Documented By: TODD Neomycin/Polymyxin/Hydrocortisone (Neomycin/Polymyxin/Hc Otic Melanie 10 Ml Drpbtl) 3 drop EAR-RIGHT QID [facility] Last Admin: 04/14/22 14:37 Dose: Not Given Documented By: TODD Non-Admin Reason: Patient Refused Olanzapine (Olanzapine Odt 10 Mg Tab.Rapdis) 5 mg TRANSLINGU BID PRN PRN Reason: agitation, psychosis Last Admin: 03/15/22 19:48 Dose: 5 mg Documented By: GENIE Omeprazole (Omeprazole 20 Mg Capsule.Dr) 20 mg PO DAILY@0630 [facility] Last Admin: 04/14/22 05:59 Dose: Not Given Documented By: DENISE Non-Admin Reason: Patient Refused Senna (Sennosides 8.6 Mg Tablet) 17.2 mg PO BEDTIME PRN PRN Reason: Constipation Sildenafil Citrate (Sildenafil Citrate 20 Mg Tablet) 20 mg PO TID [facility] Last Admin: 04/14/22 14:41 Dose: 20 mg Documented By: TODD Sitagliptin Phosphate (Sitagliptin Phosphate 100 Mg Tablet) 100 mg PO DAILY [facility] Last Admin: 04/14/22 08:18 Dose: 100 mg Documented By: TODD Sodium Chloride (0.9 % Sodium Chloride Flush 3 Ml Syringe) 3 ml IVFLUSH QSHIFT [facility] Last Admin: 04/14/22 08:19 Dose: Not Given Documented By: TODD Non-Admin Reason: No Access Labs CBC & Chem 7: 01/16/22 05:35 04/13/22 12:01 Labs: Laboratory Results - last 24 hr 04/13/22 04/14/22 04/14/22 15:59 07:25 11:21 POC Glucose 119 H 158 H 104 Assessment and Plan (1) Schizo affective schizophrenia: Status: Acute Plan 61-year-old male with a past medical history of schizophrenia, CHF, asthma/COPD, diabetes, hyperlipidemia [facility] with a chief complaint of acute hypoxia. Noted to have following conditions No new medical issues. No further episodes of elopement, continue sitter, Camera in room Acute hypoxic respiratory failure on presentation suspected d/t COPD/asthma/CHF. Resolved Acute asthma/COPD No acute symptoms, continue bronchodilator, Patient has no formal diagnosis. Patient is supposed to be following up with pulmonology as outpatient. He had similar presentation in December 2021. Pulmonary HTN Asymptomatic, continue Viagra, outpatient follow up Right heart failure EF 55 to 60,no acute exacerbation, continue oral Lasix 40 bid Diabetes/hyperglycemia blood sugars in acceptable range continue lantus, SSI, metformin and Sitagliptin schizoaffective disorder Continue home Depakote, haloperidol DVT prophylaxis: Lovenox Code status: Full code. Confirmed with the patient's guardian [facility] proxy invoked. Lacks capacity for medical decision, awaiting permanent placement attending - dr. scott Need for inpatient : awaiting placement Quality Stroke Does the patient have a stroke diagnosis?: No VTE Prior VTE?: No VTE Risk Level:: Medical - moderate - high VTE Device Contraindication: Treatment Not Indicated VTE Drug Contraindication: N/A - Med Ordered
[2022-04-14 16:38] LABS: Glucose, Whole Blood 144 mg/dL (60-115)
[2022-04-14] MEDS: Divalproex Sodium ER 250 MG TAB.ER.24H PO (17:01)
[2022-04-14 19:45] LABS: Glucose, Whole Blood 176 mg/dL (60-115)
[2022-04-14] MEDS: Insulin Glargine,Hum.rec.anlog 100 UNIT/ML 10 ML VIAL 10 UNIT SUBCUT (21:07)
[2022-04-15 07:20] VITALS: BP 102/68; PULSE 66; RESP 18; TEMP 36.2; O2SAT 97
[2022-04-15 07:28] LABS: Glucose, Whole Blood 152 mg/dL (60-115)
[2022-04-15] MEDS: Divalproex Sodium ER 500 MG TAB.ER.24H PO (09:40)
[2022-04-15] MEDS: Atorvastatin Calcium 40 MG TABLET PO (09:40)
[2022-04-15] MEDS: Sildenafil Citrate 20 MG TABLET PO ×3 (09:40→20:55)
[2022-04-15] MEDS: Ferrous Sulfate 324 MG TABLET.DR PO ×2 (09:40→20:55)
[2022-04-15] MEDS: Furosemide 40 MG TABLET PO (09:40)
[2022-04-15] MEDS: metFORMIN HCl 500 MG TABLET PO (09:40)
[2022-04-15] MEDS: SITagliptin Phosphate 100 MG TABLET PO (09:40)
[2022-04-15] MEDS: HaloperidoL 5 MG TABLET 10 MG PO ×2 (09:41→20:55)
[2022-04-15 11:37] LABS: Glucose, Whole Blood 129 mg/dL (60-115)
--- NOTE | 2022-04-15 15:15 | HO.PM.IMPN ---
Subjective Subjective Date of Service: 04/15/22 Interval History: seen and examined this morning follow up for placement no overnight events no specific complaints this morning, again not willing to answer ROS questions. Physical Exam Vital Signs: Vital Signs: Last Vital Signs Temp 97.2 F 04/15/22 07:20 Pulse 66 04/15/22 07:20 Resp 18 04/15/22 07:20 BP 102/68 04/15/22 07:20 Pulse Ox 97 04/15/22 07:20 O2 Del Method 04/15/22 07:20 O2 Flow Rate 2 02/16/22 07:18 FiO2 94 02/13/22 15:38 BMI result Body Mass Index 21.8 Const: Other: Argumentative, frustrated General: comfortable, no acute distress, alert and awake Nutritional Appearance: average body habitus Resp: Effort & Inspection: normal respiratory effort, able to speak in complete sentences and not tachypneic Cardio: Rate: regular rate Heart sounds: S1 normal heart sound present and S2 normal heart sound present GI: Inspection: No distended Palpation (GI): Soft to palpation and nontender Neuro: Other: grossly nonfocal General: no focal motor deficits Extrem: Other: able to move all four extremities spontaneously General: Yes no pedal edema Psych: Other: flat affect Objective Data Active Medications Acetaminophen (Acetaminophen 325 Mg Tablet) 650 mg PO Q6H PRN PRN Reason: Pain, Mild (Pain Scale 1-3) Atorvastatin Calcium (Atorvastatin Calcium 40 Mg Tablet) 40 mg PO DAILY [facility] Last Admin: 04/15/22 09:40 Dose: 40 mg Documented By: TODD Dextrose (Dextrose 50 % 25 Gm/50 Ml Syringe) 25 gm IVPUSH Q15M PRN; Protocol PRN Reason: per Hypoglycemia Standing Ord. Divalproex Sodium (Divalproex Sodium Er 250 Mg Tab.Er.24h) 250 mg PO DAILY@1700 [facility] Last Admin: 04/14/22 17:01 Dose: 250 mg Documented By: NATHAN Divalproex Sodium (Divalproex Sodium Er 500 Mg Tab.Er.24h) 500 mg PO DAILY [facility] Last Admin: 04/15/22 09:40 Dose: 500 mg Documented By: TODD Ferrous Sulfate (Ferrous Sulfate 324 Mg Tablet.) 324 mg PO BID [facility] Last Admin: 04/15/22 09:40 Dose: 324 mg Documented By: TODD Fluticasone Propionate (Fluticasone Propionate Nasal 16 Gm [place]) 1 spray NOSTRIL-B BID [facility] Last Admin: 04/15/22 08:29 Dose: Not Given Documented By: TODD Non-Admin Reason: Patient Refused Furosemide (Furosemide 40 Mg Tablet) 40 mg PO BID@0900,1800 [facility]; Protocol Last Admin: 04/15/22 09:40 Dose: 40 mg Documented By: TODD Glucose (Glucose Gel 15 Gm Gel..Gram.) 15 gm PO Q15M PRN; Protocol PRN Reason: per Hypoglycemia Standing Ord. Haloperidol (Haloperidol 5 Mg Tablet) 10 mg PO BID [facility] Last Admin: 04/15/22 09:41 Dose: 10 mg Documented By: TODD Insulin Glargine (Insulin Glargine,Hum.Rec.Anlog 100 Unit/Ml 10 Ml Vial) 10 unit SUBCUT BEDTIME [facility] Last Admin: 04/14/22 21:07 Dose: 10 unit Documented By: NATHAN Insulin Human Lispro (Insulin Lispro 100 Unit/Ml 3 Ml Vial) 0 unit SUBCUT QIDACHS [facility]; Protocol Last Admin: 04/15/22 11:49 Dose: Not Given Documented By: TODD Non-Admin Reason: No Insulin Coverage Melatonin (Melatonin 3 Mg Tablet) 6 mg PO BEDTIME PRN PRN Reason: Insomnia Last Admin: 04/05/22 20:56 Dose: 6 mg Documented By: ANA Metformin HCl (Metformin Hcl 500 Mg Tablet) 500 mg PO BIDWM [facility] Last Admin: 04/15/22 09:40 Dose: 500 mg Documented By: TODD Neomycin/Polymyxin/Hydrocortisone (Neomycin/Polymyxin/Hc Otic Melanie 10 Ml Drpbtl) 3 drop EAR-RIGHT QID [facility] Last Admin: 04/15/22 11:49 Dose: Not Given Documented By: TODD Non-Admin Reason: Patient Refused Olanzapine (Olanzapine Odt 10 Mg Tab.Rapdis) 5 mg TRANSLINGU BID PRN PRN Reason: agitation, psychosis Last Admin: 03/15/22 19:48 Dose: 5 mg Documented By: GENIE Omeprazole (Omeprazole 20 Mg Capsule.Dr) 20 mg PO DAILY@0630 [facility] Last Admin: 04/15/22 06:38 Dose: Not Given Documented By: LOGAN Non-Admin Reason: Patient Refused Senna (Sennosides 8.6 Mg Tablet) 17.2 mg PO BEDTIME PRN PRN Reason: Constipation Sildenafil Citrate (Sildenafil Citrate 20 Mg Tablet) 20 mg PO TID [facility] Last Admin: 04/15/22 14:26 Dose: 20 mg Documented By: TODD Sitagliptin Phosphate (Sitagliptin Phosphate 100 Mg Tablet) 100 mg PO DAILY [facility] Last Admin: 04/15/22 09:40 Dose: 100 mg Documented By: TODD Sodium Chloride (0.9 % Sodium Chloride Flush 3 Ml Syringe) 3 ml IVFLUSH QSHIFT [facility] Last Admin: 04/15/22 08:29 Dose: Not Given Documented By: TODD Non-Admin Reason: No Access Labs CBC & Chem 7: 01/16/22 05:35 04/13/22 12:01 Labs: Laboratory Results - last 24 hr 04/14/22 04/14/22 04/15/22 16:19 19:39 07:23 POC Glucose 144 H 176 H 152 H 04/15/22 11:32 POC Glucose 129 H Assessment and Plan (1) Pulmonary hypertension: Status: Acute (2) Schizo affective schizophrenia: Status: Acute Plan 61-year-old male with a past medical history of schizophrenia, CHF, asthma/COPD, diabetes, hyperlipidemia presented from the [facility] with a chief complaint of acute hypoxia. Noted to have following conditions No new medical issues. No further episodes of elopement, continue sitter, Camera in room Acute hypoxic respiratory failure on presentation suspected d/t COPD/asthma/CHF. Resolved Acute asthma/COPD No acute symptoms, continue bronchodilator, Patient has no formal diagnosis. Patient is supposed to be following up with pulmonology as outpatient. He had similar presentation in December 2021. Pulmonary HTN Asymptomatic, continue Viagra, outpatient follow up Right heart failure EF 55 to 60,no acute exacerbation, continue oral Lasix 40 bid Diabetes/hyperglycemia blood sugars in acceptable range continue lantus, SSI, metformin and Sitagliptin schizoaffective disorder Continue home Depakote, haloperidol DVT prophylaxis: Lovenox Code status: Full code. Confirmed with the patient's guardian [facility] proxy invoked. Lacks capacity for medical decision, awaiting permanent placement Need for inpatient : awaiting placement Quality Stroke Does the patient have a stroke diagnosis?: No VTE Prior VTE?: No VTE Risk Level:: Medical - moderate - high VTE Device Contraindication: Treatment Not Indicated VTE Drug Contraindication: N/A - Med Ordered
[2022-04-15 16:00] VITALS: BP 98/57; PULSE 75; RESP 19; TEMP 36.9; O2SAT 93
[2022-04-15 16:33] LABS: Glucose, Whole Blood 176 mg/dL (60-115)
[2022-04-15] MEDS: Insulin Lispro 100 UNIT/ML 3 ML VIAL SUBCUT (16:46)
--- NOTE | 2022-04-15 18:25 | PC.NURSE ---
patient refused scheduled meds this pm ,only humalog insulin per scale was administered
[2022-04-15 20:52] LABS: Glucose, Whole Blood 134 mg/dL (60-115)
[2022-04-15] MEDS: Insulin Glargine,Hum.rec.anlog 100 UNIT/ML 10 ML VIAL 10 UNIT SUBCUT (20:54)
[2022-04-15] MEDS: Divalproex Sodium ER 250 MG TAB.ER.24H PO (20:55)
[2022-04-16] MEDS: metFORMIN HCl 500 MG TABLET PO ×2 (09:24→16:27)
[2022-04-16] MEDS: HaloperidoL 5 MG TABLET 10 MG PO ×2 (09:24→20:13)
--- NOTE | 2022-04-16 10:02 | HO.PM.IMPN ---
Subjective Subjective Date of Service: 04/16/22 Interval History: seen and examined this morning follow up for placement no overnight events no specific complaints this morning, again not willing to answer ROS questions. Physical Exam Vital Signs: Vital Signs: Last Vital Signs Temp 98.4 F 04/15/22 16:00 Pulse 75 04/15/22 16:00 Resp 19 04/15/22 16:00 BP 98/57 L 04/15/22 16:00 Pulse Ox 93 04/15/22 16:00 O2 Del Method 04/15/22 16:00 O2 Flow Rate 2 02/16/22 07:18 FiO2 94 02/13/22 15:38 BMI result Body Mass Index 21.8 Appearing in no acute distress lung sounds are clear to auscultation heart regular rate rhythm positive bowel sounds neuro patient is alert Objective Data Active Medications Acetaminophen (Acetaminophen 325 Mg Tablet) 650 mg PO Q6H PRN PRN Reason: Pain, Mild (Pain Scale 1-3) Atorvastatin Calcium (Atorvastatin Calcium 40 Mg Tablet) 40 mg PO DAILY [facility] Last Admin: 04/16/22 09:25 Dose: Not Given Documented By: WILNER Non-Admin Reason: Patient Refused Dextrose (Dextrose 50 % 25 Gm/50 Ml Syringe) 25 gm IVPUSH Q15M PRN; Protocol PRN Reason: per Hypoglycemia Standing Ord. Divalproex Sodium (Divalproex Sodium Er 250 Mg Tab.Er.24h) 250 mg PO DAILY@1700 [facility] Last Admin: 04/15/22 20:55 Dose: 250 mg Documented By: NATHAN Divalproex Sodium (Divalproex Sodium Er 500 Mg Tab.Er.24h) 500 mg PO DAILY [facility] Last Admin: 04/16/22 09:25 Dose: Not Given Documented By: WILNER Non-Admin Reason: Patient Refused Ferrous Sulfate (Ferrous Sulfate 324 Mg Tablet.) 324 mg PO BID [facility] Last Admin: 04/16/22 09:25 Dose: Not Given Documented By: WILNER Non-Admin Reason: Patient Refused Fluticasone Propionate (Fluticasone Propionate Nasal 16 Gm [place]) 1 spray NOSTRIL-B BID [facility] Last Admin: 04/16/22 08:32 Dose: Not Given Documented By: WILNER Non-Admin Reason: Patient Refused Furosemide (Furosemide 40 Mg Tablet) 40 mg PO BID@0900,1800 [facility]; Protocol Last Admin: 04/16/22 09:25 Dose: Not Given Documented By: WILNER Non-Admin Reason: Patient Refused Glucose (Glucose Gel 15 Gm Gel..Gram.) 15 gm PO Q15M PRN; Protocol PRN Reason: per Hypoglycemia Standing Ord. Haloperidol (Haloperidol 5 Mg Tablet) 10 mg PO BID [facility] Last Admin: 04/16/22 09:24 Dose: 10 mg Documented By: WILNER Insulin Glargine (Insulin Glargine,Hum.Rec.Anlog 100 Unit/Ml 10 Ml Vial) 10 unit SUBCUT BEDTIME [facility] Last Admin: 04/15/22 20:54 Dose: 1 unit Documented By: NATHAN Insulin Human Lispro (Insulin Lispro 100 Unit/Ml 3 Ml Vial) 0 unit SUBCUT QIDACHS [facility]; Protocol Last Admin: 04/16/22 08:31 Dose: Not Given Documented By: WILNER Non-Admin Reason: Patient Refused Melatonin (Melatonin 3 Mg Tablet) 6 mg PO BEDTIME PRN PRN Reason: Insomnia Last Admin: 04/05/22 20:56 Dose: 6 mg Documented By: SHARONILScooby Metformin HCl (Metformin Hcl 500 Mg Tablet) 500 mg PO BIDWM [facility] Last Admin: 04/16/22 09:24 Dose: 500 mg Documented By: WILNER Neomycin/Polymyxin/Hydrocortisone (Neomycin/Polymyxin/Hc Otic Melanie 10 Ml Drpbtl) 3 drop EAR-RIGHT QID [facility] Last Admin: 04/16/22 08:32 Dose: Not Given Documented By: WILNER Non-Admin Reason: Patient Refused Olanzapine (Olanzapine Odt 10 Mg Tab.Rapdis) 5 mg TRANSLINGU BID PRN PRN Reason: agitation, psychosis Last Admin: 03/15/22 19:48 Dose: 5 mg Documented By: GENIE Omeprazole (Omeprazole 20 Mg Capsule.Dr) 20 mg PO DAILY@0630 [facility] Last Admin: 04/16/22 05:48 Dose: Not Given Documented By: ARMANDO Non-Admin Reason: Patient Refused Senna (Sennosides 8.6 Mg Tablet) 17.2 mg PO BEDTIME PRN PRN Reason: Constipation Sildenafil Citrate (Sildenafil Citrate 20 Mg Tablet) 20 mg PO TID [facility] Last Admin: 04/16/22 09:26 Dose: Not Given Documented By: WILNER Non-Admin Reason: Patient Refused Sitagliptin Phosphate (Sitagliptin Phosphate 100 Mg Tablet) 100 mg PO DAILY [facility] Last Admin: 04/16/22 09:26 Dose: Not Given Documented By: WILNER Non-Admin Reason: Patient Refused Sodium Chloride (0.9 % Sodium Chloride Flush 3 Ml Syringe) 3 ml IVFLUSH QSHIFT [facility] Last Admin: 04/16/22 08:31 Dose: Not Given Documented By: WILNER Non-Admin Reason: No Access Labs CBC & Chem 7: 01/16/22 05:35 04/13/22 12:01 Labs: Laboratory Results - last 24 hr 04/15/22 04/15/22 04/15/22 11:32 16:02 20:47 POC Glucose 129 H 176 H 134 H Assessment and Plan (1) Pulmonary hypertension: Status: Acute (2) Schizo affective schizophrenia: Status: Acute Plan 61-year-old male with a past medical history of schizophrenia, CHF, asthma/COPD, diabetes, hyperlipidemia presented from the assisted with a chief complaint of acute hypoxia. Noted to have following conditions No new medical issues. No further episodes of elopement, continue sitter, Camera in room Acute hypoxic respiratory failure on presentation suspected d/t COPD/asthma/CHF. Resolved Acute asthma/COPD, chronic intermittent No acute symptoms, continue bronchodilator, Patient has no formal diagnosis. Patient is supposed to be following up with pulmonology as outpatient. He had similar presentation in December 2021. Pulmonary HTN Asymptomatic, continue Viagra, outpatient follow up Right heart failure EF 55 to 60,no acute exacerbation, continue oral Lasix 40 bid Diabetes/hyperglycemia blood sugars in acceptable range continue lantus, SSI, metformin and Sitagliptin schizoaffective disorder Continue home Depakote, haloperidol DVT prophylaxis: Lovenox Code status: Full code. Confirmed with the patient's guardian [facility] proxy invoked. Lacks capacity for medical decision, awaiting permanent placement Need for inpatient : awaiting placement Quality Stroke Does the patient have a stroke diagnosis?: No VTE Prior VTE?: No VTE Risk Level:: Medical - moderate - high VTE Device Contraindication: Treatment Not Indicated VTE Drug Contraindication: N/A - Med Ordered
--- NOTE | 2022-04-16 13:16 | MHC.CM.PN ---
Addendum entered by Binta Gonzáles 04/16/22 13:18: PATIENT'S CHD CM DARREN VISITING PATIENT ONCE A WEEK. SHE REPORTS SHE IS NOT ABLE TO ASSIST WITH FINDING HIM A PLACE TO LIVE HE IS A FLIGHT RISK AND THEY DO NOT HAVE ANYTHING SUITABLE. Original Note: EMR REVIEW, PATIENT IS MEDICALLY CLEARED, BED SEARCH THROUGH OUT STATE CONTINUES, SNF REFERRALS UPDATED, NO BED OFFERS AT THIS TIME. CM MALACHI CONTINUE TO MONITOR REFERRALS AND D/C NEEDS.
[2022-04-16 15:45] VITALS: BP 103/70; PULSE 56; RESP 20; TEMP 36.7; O2SAT 95
--- NOTE | 2022-04-16 16:26 | MHC.CM.PN ---
APPLICATION FOR [facility] DISCUSSED WITH PT WHO REPORTS HE IS AGREEABLE APPLICATION COMPLETED WITH CM ASSISTANCE AND SIGNED BY PT APPLICATION FAXED TO [facility] [phone]
[2022-04-16] MEDS: Furosemide 40 MG TABLET PO (16:27)
[2022-04-16] MEDS: Sildenafil Citrate 20 MG TABLET PO ×2 (16:27→20:12)
[2022-04-16] MEDS: Divalproex Sodium ER 250 MG TAB.ER.24H PO (16:27)
[2022-04-16 16:50] LABS: Glucose, Whole Blood 103 mg/dL (60-115)
--- NOTE | 2022-04-16 19:32 | PC.NURSE ---
Staff noticed pt had a small skin tear to R benoit. Pt didn't remember how or when it happened but had been ambulating. Site cleaned with soap and water and bandaid applied.
[2022-04-16] MEDS: Ferrous Sulfate 324 MG TABLET.DR PO (20:12)
[2022-04-16] MEDS: Insulin Glargine,Hum.rec.anlog 100 UNIT/ML 10 ML VIAL 10 UNIT SUBCUT (20:13)
[2022-04-16 20:48] LABS: Glucose, Whole Blood 175 mg/dL (60-115)
[2022-04-17 07:12] VITALS: BP 101/65; PULSE 58; RESP 17; TEMP 36.2; O2SAT 96
[2022-04-17 07:20] LABS: Glucose, Whole Blood 122 mg/dL (60-115)
--- NOTE | 2022-04-17 08:40 | HO.PM.IMPN ---
Subjective Subjective Date of Service: 04/17/22 Interval History: seen and examined this morning follow up for placement no overnight events no specific complaints this morning, again not willing to answer ROS questions. Physical Exam Vital Signs: Vital Signs: Last Vital Signs Temp 97.1 F 04/17/22 07:12 Pulse 58 04/17/22 07:12 Resp 17 04/17/22 07:12 BP 101/65 04/17/22 07:12 Pulse Ox 96 04/17/22 07:12 O2 Del Method 04/17/22 07:12 O2 Flow Rate 2 02/16/22 07:18 FiO2 94 02/13/22 15:38 BMI result Body Mass Index 21.8 Appearing in no acute distress head is normocephalic atraumatic eyes pupils are PERRLA sclera is anicteric mouth throat mucous membranes are intact and moist neck is supple no lymphadenopathy, no JVD noted lung sounds are clear to auscultation heart regular rate rhythm, clear S1, S2 positive bowel sounds, abdomen is soft, nontender neuro patient is alert x3, no focal deficits Objective Data Active Medications Acetaminophen (Acetaminophen 325 Mg Tablet) 650 mg PO Q6H PRN PRN Reason: Pain, Mild (Pain Scale 1-3) Atorvastatin Calcium (Atorvastatin Calcium 40 Mg Tablet) 40 mg PO DAILY [facility] Last Admin: 04/16/22 09:25 Dose: Not Given Documented By: WILNER Non-Admin Reason: Patient Refused Dextrose (Dextrose 50 % 25 Gm/50 Ml Syringe) 25 gm IVPUSH Q15M PRN; Protocol PRN Reason: per Hypoglycemia Standing Ord. Divalproex Sodium (Divalproex Sodium Er 250 Mg Tab.Er.24h) 250 mg PO DAILY@1700 [facility] Last Admin: 04/16/22 16:27 Dose: 250 mg Documented By: WILNER Divalproex Sodium (Divalproex Sodium Er 500 Mg Tab.Er.24h) 500 mg PO DAILY [facility] Last Admin: 04/16/22 09:25 Dose: Not Given Documented By: WILNER Non-Admin Reason: Patient Refused Ferrous Sulfate (Ferrous Sulfate 324 Mg Tablet.) 324 mg PO BID [facility] Last Admin: 04/16/22 20:12 Dose: 324 mg Documented By: EMELINA Fluticasone Propionate (Fluticasone Propionate Nasal 16 Gm [place]) 1 spray NOSTRIL-B BID [facility] Last Admin: 04/17/22 07:18 Dose: Not Given Documented By: WILNER Non-Admin Reason: Patient Refused Furosemide (Furosemide 40 Mg Tablet) 40 mg PO BID@0900,1800 [facility]; Protocol Last Admin: 04/16/22 16:27 Dose: 40 mg Documented By: WILNER Glucose (Glucose Gel 15 Gm Gel..Gram.) 15 gm PO Q15M PRN; Protocol PRN Reason: per Hypoglycemia Standing Ord. Haloperidol (Haloperidol 5 Mg Tablet) 10 mg PO BID [facility] Last Admin: 04/16/22 20:13 Dose: 10 mg Documented By: EMELINA Insulin Glargine (Insulin Glargine,Hum.Rec.Anlog 100 Unit/Ml 10 Ml Vial) 10 unit SUBCUT BEDTIME [facility] Last Admin: 04/16/22 20:13 Dose: 10 unit Documented By: EMELINA Insulin Human Lispro (Insulin Lispro 100 Unit/Ml 3 Ml Vial) 0 unit SUBCUT QIDACHS [facility]; Protocol Last Admin: 04/17/22 07:17 Dose: Not Given Documented By: WILNER Non-Admin Reason: No Insulin Coverage Melatonin (Melatonin 3 Mg Tablet) 6 mg PO BEDTIME PRN PRN Reason: Insomnia Last Admin: 04/05/22 20:56 Dose: 6 mg Documented By: ANA Metformin HCl (Metformin Hcl 500 Mg Tablet) 500 mg PO BIDWM [facility] Last Admin: 04/16/22 16:27 Dose: 500 mg Documented By: WILNER Neomycin/Polymyxin/Hydrocortisone (Neomycin/Polymyxin/Hc Otic Melanie 10 Ml Drpbtl) 3 drop EAR-RIGHT QID [facility] Last Admin: 04/17/22 07:18 Dose: Not Given Documented By: WILNER Non-Admin Reason: Patient Refused Olanzapine (Olanzapine Odt 10 Mg Tab.Rapdis) 5 mg TRANSLINGU BID PRN PRN Reason: agitation, psychosis Last Admin: 03/15/22 19:48 Dose: 5 mg Documented By: GENIE Omeprazole (Omeprazole 20 Mg Capsule.Dr) 20 mg PO DAILY@0630 [facility] Last Admin: 04/17/22 05:45 Dose: Not Given Documented By: EMELINA Non-Admin Reason: Patient Refused Senna (Sennosides 8.6 Mg Tablet) 17.2 mg PO BEDTIME PRN PRN Reason: Constipation Sildenafil Citrate (Sildenafil Citrate 20 Mg Tablet) 20 mg PO TID [facility] Last Admin: 04/16/22 20:12 Dose: 20 mg Documented By: EMELINA Sitagliptin Phosphate (Sitagliptin Phosphate 100 Mg Tablet) 100 mg PO DAILY [facility] Last Admin: 04/16/22 09:26 Dose: Not Given Documented By: WILNER Non-Admin Reason: Patient Refused Sodium Chloride (0.9 % Sodium Chloride Flush 3 Ml Syringe) 3 ml IVFLUSH QSHIFT [facility] Last Admin: 04/17/22 07:18 Dose: Not Given Documented By: WILNER Non-Admin Reason: No Access Labs CBC & Chem 7: 01/16/22 05:35 04/13/22 12:01 Labs: Laboratory Results - last 24 hr 04/16/22 04/16/22 04/17/22 16:37 20:43 07:15 POC Glucose 103 175 H 122 H Assessment and Plan (1) Pulmonary hypertension: Status: Acute (2) Schizo affective schizophrenia: Status: Acute Plan 61-year-old male with a past medical history of schizophrenia, CHF, asthma/COPD, diabetes, hyperlipidemia presented from the detention with a chief complaint of acute hypoxia. Noted to have following conditions No new medical issues. No further episodes of elopement, continue sitter, Camera in room Acute hypoxic respiratory failure on presentation suspected d/t COPD/asthma/CHF. Resolved Acute asthma/COPD, chronic intermittent No acute symptoms, continue bronchodilator, Patient has no formal diagnosis. Patient is supposed to be following up with pulmonology as outpatient. He had similar presentation in December 2021. Pulmonary HTN Asymptomatic, continue Viagra, outpatient follow up Heart failure with preserved ejection fraction EF 55 to 60,no acute exacerbation, continue oral Lasix 40 bid Diabetes/hyperglycemia blood sugars in acceptable range continue lantus, SSI, metformin and Sitagliptin schizoaffective disorder Continue home Depakote, haloperidol DVT prophylaxis: Lovenox Code status: Full code. Confirmed with the patient's guardian [facility] proxy invoked. Lacks capacity for medical decision, awaiting permanent placement Need for inpatient : awaiting placement Quality Stroke Does the patient have a stroke diagnosis?: No VTE Prior VTE?: No VTE Risk Level:: Medical - moderate - high VTE Device Contraindication: Treatment Not Indicated VTE Drug Contraindication: N/A - Med Ordered
[2022-04-17] MEDS: HaloperidoL 5 MG TABLET 10 MG PO ×2 (10:06→20:35)
[2022-04-17 11:27] LABS: Glucose, Whole Blood 246 mg/dL (60-115)
[2022-04-17] MEDS: Insulin Lispro 100 UNIT/ML 3 ML VIAL SUBCUT (12:09)
[2022-04-17 16:20] VITALS: BP 92/66; PULSE 86; RESP 18; TEMP 36.4; O2SAT 96
[2022-04-17 16:29] LABS: Glucose, Whole Blood 145 mg/dL (60-115)
[2022-04-17] MEDS: metFORMIN HCl 500 MG TABLET PO (17:53)
[2022-04-17 20:06] LABS: Glucose, Whole Blood 131 mg/dL (60-115)
[2022-04-17] MEDS: Ferrous Sulfate 324 MG TABLET.DR PO (20:35)
[2022-04-17] MEDS: Insulin Glargine,Hum.rec.anlog 100 UNIT/ML 10 ML VIAL 10 UNIT SUBCUT (20:35)
[2022-04-17] MEDS: Sildenafil Citrate 20 MG TABLET PO (20:35)
[2022-04-17 20:37] VITALS: BP 120/77; PULSE 63; RESP 18; O2SAT 95
[2022-04-18] MEDS: Omeprazole 20 MG CAPSULE.DR PO (06:33)
[2022-04-18 08:00] VITALS: BP 107/70; PULSE 55; RESP 18; TEMP 37.1; O2SAT 96
[2022-04-18 08:17] LABS: Glucose, Whole Blood 127 mg/dL (60-115)
--- NOTE | 2022-04-18 09:23 | P.PNIM_ITS ---
Subjective Subjective Date of Service: 04/18/22 Interval History: follow up for placement no overnight events Lying in bed Physical Exam 2 Vital Signs: Vital Signs: Last Vital Signs Temp 98.7 F 04/18/22 08:00 Pulse 55 04/18/22 08:00 Resp 18 04/18/22 08:00 BP 107/70 04/18/22 08:00 Pulse Ox 96 04/18/22 08:00 O2 Del Method 04/18/22 08:00 O2 Flow Rate 2 02/16/22 07:18 FiO2 94 02/13/22 15:38 BMI result Body Mass Index 21.8 Declined exam Objective Data Active Medications Acetaminophen (Acetaminophen 325 Mg Tablet) 650 mg PO Q6H PRN PRN Reason: Pain, Mild (Pain Scale 1-3) Atorvastatin Calcium (Atorvastatin Calcium 40 Mg Tablet) 40 mg PO DAILY [facility] Last Admin: 04/17/22 10:09 Dose: Not Given Documented By: WILNER Non-Admin Reason: Patient Refused Dextrose (Dextrose 50 % 25 Gm/50 Ml Syringe) 25 gm IVPUSH Q15M PRN; Protocol PRN Reason: per Hypoglycemia Standing Ord. Divalproex Sodium (Divalproex Sodium Er 250 Mg Tab.Er.24h) 250 mg PO DAILY@1700 [facility] Last Admin: 04/17/22 17:49 Dose: Not Given Documented By: WILNER Non-Admin Reason: Patient Refused Divalproex Sodium (Divalproex Sodium Er 500 Mg Tab.Er.24h) 500 mg PO DAILY [facility] Last Admin: 04/17/22 10:10 Dose: Not Given Documented By: WILNER Non-Admin Reason: Patient Refused Ferrous Sulfate (Ferrous Sulfate 324 Mg Tablet.Dr) 324 mg PO BID [facility] Last Admin: 04/17/22 20:35 Dose: 324 mg Documented By: NATHAN Fluticasone Propionate (Fluticasone Propionate Nasal 16 Gm [place]) 1 spray NOSTRIL-B BID [facility] Last Admin: 04/18/22 08:57 Dose: Not Given Documented By: TODD Non-Admin Reason: Blood Running Furosemide (Furosemide 40 Mg Tablet) 40 mg PO BID@0900,1800 [facility]; Protocol Last Admin: 04/17/22 17:50 Dose: Not Given Documented By: WILNER Non-Admin Reason: Patient Refused Glucose (Glucose Gel 15 Gm Gel..Gram.) 15 gm PO Q15M PRN; Protocol PRN Reason: per Hypoglycemia Standing Ord. Haloperidol (Haloperidol 5 Mg Tablet) 10 mg PO BID [facility] Last Admin: 04/17/22 20:35 Dose: 10 mg Documented By: NATHAN Insulin Glargine (Insulin Glargine,Hum.Rec.Anlog 100 Unit/Ml 10 Ml Vial) 10 unit SUBCUT BEDTIME [facility] Last Admin: 04/17/22 20:35 Dose: 10 unit Documented By: NATHAN Insulin Human Lispro (Insulin Lispro 100 Unit/Ml 3 Ml Vial) 0 unit SUBCUT QIDACHS [facility]; Protocol Last Admin: 04/18/22 08:57 Dose: Not Given Documented By: TODD Non-Admin Reason: No Insulin Coverage Melatonin (Melatonin 3 Mg Tablet) 6 mg PO BEDTIME PRN PRN Reason: Insomnia Last Admin: 04/05/22 20:56 Dose: 6 mg Documented By: SHARONILScooby Metformin HCl (Metformin Hcl 500 Mg Tablet) 500 mg PO BIDWM [facility] Last Admin: 04/17/22 17:53 Dose: 500 mg Documented By: WILNER Neomycin/Polymyxin/Hydrocortisone (Neomycin/Polymyxin/Hc Otic Melanie 10 Ml Drpbtl) 3 drop EAR-RIGHT QID [facility] Last Admin: 04/18/22 08:57 Dose: Not Given Documented By: TODD Non-Admin Reason: Patient Refused Olanzapine (Olanzapine Odt 10 Mg Tab.Rapdis) 5 mg TRANSLINGU BID PRN PRN Reason: agitation, psychosis Last Admin: 03/15/22 19:48 Dose: 5 mg Documented By: GENIE Omeprazole (Omeprazole 20 Mg Capsule.Dr) 20 mg PO DAILY@0630 [facility] Last Admin: 04/18/22 06:33 Dose: 20 mg Documented By: KEVIN Senna (Sennosides 8.6 Mg Tablet) 17.2 mg PO BEDTIME PRN PRN Reason: Constipation Sildenafil Citrate (Sildenafil Citrate 20 Mg Tablet) 20 mg PO TID [facility] Last Admin: 04/17/22 20:35 Dose: 20 mg Documented By: NATHAN Sitagliptin Phosphate (Sitagliptin Phosphate 100 Mg Tablet) 100 mg PO DAILY [facility] Last Admin: 04/17/22 10:10 Dose: Not Given Documented By: WILNER Non-Admin Reason: Patient Refused Sodium Chloride (0.9 % Sodium Chloride Flush 3 Ml Syringe) 3 ml IVFLUSH QSHIFT [facility] Last Admin: 04/18/22 08:57 Dose: Not Given Documented By: TODD Non-Admin Reason: No Access Labs CBC & Chem 7: 01/16/22 05:35 04/13/22 12:01 Labs: Laboratory Results - last 24 hr 04/17/22 04/17/22 04/17/22 11:05 16:25 20:02 POC Glucose 246 H 145 H 131 H 04/18/22 08:13 POC Glucose 127 H Assessment and Plan (1) Pulmonary hypertension: Status: Acute (2) Schizo affective schizophrenia: Status: Acute Plan 61-year-old male with a past medical history of schizophrenia, CHF, asthma/COPD, diabetes, hyperlipidemia presented from the skilled nursing with a chief complaint of acute hypoxia. Noted to have following conditions No new medical issues. next lab check 04/23/22 unless needed earlier No further episodes of elopement, continue sitter, Camera in room Acute hypoxic respiratory failure on presentation suspected d/t COPD/asthma/CHF. Resolved Acute asthma/COPD, chronic intermittent No acute symptoms, continue bronchodilator, Patient has no formal diagnosis. Patient is supposed to be following up with pulmonology as outpatient. He had similar presentation in December 2021. Pulmonary HTN Asymptomatic, continue Viagra, outpatient follow up Heart failure with preserved ejection fraction EF 55 to 60,no acute exacerbation, continue oral Lasix 40 bid Diabetes/hyperglycemia blood sugars in acceptable range continue lantus, SSI, metformin and Sitagliptin schizoaffective disorder Continue home Depakote, haloperidol DVT prophylaxis: Lovenox Code status: Full code. Confirmed with the patient's guardian [facility] proxy invoked. Lacks capacity for medical decision, awaiting permanent placement Need for inpatient : awaiting placement Quality Stroke Does the patient have a stroke diagnosis?: No VTE Prior VTE?: No VTE Risk Level:: Medical - moderate - high VTE Device Contraindication: Treatment Not Indicated VTE Drug Contraindication: N/A - Med Ordered
[2022-04-18] MEDS: Ferrous Sulfate 324 MG TABLET.DR PO ×2 (10:29→20:45)
[2022-04-18] MEDS: HaloperidoL 5 MG TABLET 10 MG PO ×2 (10:29→20:45)
[2022-04-18] MEDS: Divalproex Sodium ER 500 MG TAB.ER.24H PO (10:29)
[2022-04-18] MEDS: Atorvastatin Calcium 40 MG TABLET PO (10:29)
[2022-04-18] MEDS: Furosemide 40 MG TABLET PO ×2 (10:30→16:52)
[2022-04-18] MEDS: SITagliptin Phosphate 100 MG TABLET PO (10:30)
[2022-04-18] MEDS: metFORMIN HCl 500 MG TABLET PO ×2 (10:30→16:52)
[2022-04-18] MEDS: Sildenafil Citrate 20 MG TABLET PO ×3 (10:30→20:45)
[2022-04-18 11:07] LABS: Glucose, Whole Blood 107 mg/dL (60-115)
[2022-04-18 16:00] VITALS: BP 107/62; PULSE 73; RESP 18; TEMP 36.2; O2SAT 96
[2022-04-18 16:32] LABS: Glucose, Whole Blood 169 mg/dL (60-115)
[2022-04-18] MEDS: Divalproex Sodium ER 250 MG TAB.ER.24H PO (16:52)
[2022-04-18 20:10] LABS: Glucose, Whole Blood 157 mg/dL (60-115)
[2022-04-18] MEDS: Insulin Lispro 100 UNIT/ML 3 ML VIAL SUBCUT (20:45)
[2022-04-18] MEDS: Insulin Glargine,Hum.rec.anlog 100 UNIT/ML 10 ML VIAL 10 UNIT SUBCUT (20:51)
[2022-04-19] MEDS: Sildenafil Citrate 20 MG TABLET PO ×3 (10:32→20:33)
[2022-04-19] MEDS: Divalproex Sodium ER 500 MG TAB.ER.24H PO (10:32)
[2022-04-19] MEDS: Furosemide 40 MG TABLET PO ×2 (10:32→17:09)
[2022-04-19] MEDS: SITagliptin Phosphate 100 MG TABLET PO (10:32)
[2022-04-19] MEDS: HaloperidoL 5 MG TABLET 10 MG PO ×2 (10:32→20:33)
[2022-04-19] MEDS: metFORMIN HCl 500 MG TABLET PO ×2 (10:32→17:09)
[2022-04-19] MEDS: Ferrous Sulfate 324 MG TABLET.DR PO ×2 (10:32→20:33)
[2022-04-19] MEDS: Atorvastatin Calcium 40 MG TABLET PO (10:32)
[2022-04-19 12:07] LABS: Glucose, Whole Blood 174 mg/dL (60-115)
--- NOTE | 2022-04-19 14:42 | P.PNIM_ITS ---
Subjective Subjective Date of Service: 04/19/22 Interval History: seen and examined this morning follow up for placement awake, alert; doesn't need heart or lungs checked because he feels fine - declines physical exam No specific complaints Review of Systems Review of Systems: Yes all other systems are reviewed and are negative Constitutional Constitutional: Denies chills and Denies fever(s) Cardiovascular Cardiovascular: Denies chest pain Gastrointestinal Gastrointestinal: Denies abdominal pain Physical Exam Vital Signs: Vital Signs: Last Vital Signs Temp 97.1 F 04/18/22 16:00 Pulse 73 04/18/22 16:00 Resp 18 04/18/22 16:00 BP 107/62 04/18/22 16:00 Pulse Ox 96 04/18/22 16:00 O2 Del Method 04/18/22 16:00 O2 Flow Rate 2 02/16/22 07:18 FiO2 94 02/13/22 15:38 BMI result Body Mass Index 21.8 Const: General: comfortable, no acute distress, alert and awake Nutritional Appearance: average body habitus Resp: Effort & Inspection: normal respiratory effort and able to speak in complete sentences Extrem: Other: moving all 4 extremities spontaneously Psych: Other: flat affect Objective Data Active Medications Acetaminophen (Acetaminophen 325 Mg Tablet) 650 mg PO Q6H PRN PRN Reason: Pain, Mild (Pain Scale 1-3) Atorvastatin Calcium (Atorvastatin Calcium 40 Mg Tablet) 40 mg PO DAILY [facility] Last Admin: 04/19/22 10:32 Dose: 40 mg Documented By: TODD Dextrose (Dextrose 50 % 25 Gm/50 Ml Syringe) 25 gm IVPUSH Q15M PRN; Protocol PRN Reason: per Hypoglycemia Standing Ord. Divalproex Sodium (Divalproex Sodium Er 250 Mg Tab.Er.24h) 250 mg PO DAILY@1700 [facility] Last Admin: 04/18/22 16:52 Dose: 250 mg Documented By: ARTIS Divalproex Sodium (Divalproex Sodium Er 500 Mg Tab.Er.24h) 500 mg PO DAILY [facility] Last Admin: 04/19/22 10:32 Dose: 500 mg Documented By: TODD Ferrous Sulfate (Ferrous Sulfate 324 Mg Tablet.Dr) 324 mg PO BID [facility] Last Admin: 04/19/22 10:32 Dose: 324 mg Documented By: TODD Fluticasone Propionate (Fluticasone Propionate Nasal 16 Gm [place]) 1 spray NOSTRIL-B BID [facility] Last Admin: 04/19/22 10:31 Dose: Not Given Documented By: TODD Non-Admin Reason: Patient Refused Furosemide (Furosemide 40 Mg Tablet) 40 mg PO BID@0900,1800 [facility]; Protocol Last Admin: 04/19/22 10:32 Dose: 40 mg Documented By: TODD Glucose (Glucose Gel 15 Gm Gel..Gram.) 15 gm PO Q15M PRN; Protocol PRN Reason: per Hypoglycemia Standing Ord. Haloperidol (Haloperidol 5 Mg Tablet) 10 mg PO BID [facility] Last Admin: 04/19/22 10:32 Dose: 10 mg Documented By: TODD Insulin Glargine (Insulin Glargine,Hum.Rec.Anlog 100 Unit/Ml 10 Ml Vial) 10 unit SUBCUT BEDTIME [facility] Last Admin: 04/18/22 20:51 Dose: 10 unit Documented By: ARTIS Insulin Human Lispro (Insulin Lispro 100 Unit/Ml 3 Ml Vial) 0 unit SUBCUT QIDACHS [facility]; Protocol Last Admin: 04/19/22 13:49 Dose: Not Given Documented By: TODD Non-Admin Reason: No Insulin Coverage Melatonin (Melatonin 3 Mg Tablet) 6 mg PO BEDTIME PRN PRN Reason: Insomnia Last Admin: 04/05/22 20:56 Dose: 6 mg Documented By: ANA Metformin HCl (Metformin Hcl 500 Mg Tablet) 500 mg PO BIDWM [facility] Last Admin: 04/19/22 10:32 Dose: 500 mg Documented By: TODD Neomycin/Polymyxin/Hydrocortisone (Neomycin/Polymyxin/Hc Otic Melanie 10 Ml Drpbtl) 3 drop EAR-RIGHT QID [facility] Last Admin: 04/19/22 13:50 Dose: Not Given Documented By: TODD Non-Admin Reason: Patient Refused Olanzapine (Olanzapine Odt 10 Mg Tab.Rapdis) 5 mg TRANSLINGU BID PRN PRN Reason: agitation, psychosis Last Admin: 03/15/22 19:48 Dose: 5 mg Documented By: GENIE Omeprazole (Omeprazole 20 Mg Capsule.Dr) 20 mg PO DAILY@0630 [facility] Last Admin: 04/19/22 06:29 Dose: Not Given Documented By: HO.SEXK Non-Admin Reason: Patient Refused Senna (Sennosides 8.6 Mg Tablet) 17.2 mg PO BEDTIME PRN PRN Reason: Constipation Sildenafil Citrate (Sildenafil Citrate 20 Mg Tablet) 20 mg PO TID [facility] Last Admin: 04/19/22 10:32 Dose: 20 mg Documented By: TODD Sitagliptin Phosphate (Sitagliptin Phosphate 100 Mg Tablet) 100 mg PO DAILY [facility] Last Admin: 04/19/22 10:32 Dose: 100 mg Documented By: TODD Sodium Chloride (0.9 % Sodium Chloride Flush 3 Ml Syringe) 3 ml IVFLUSH QSHIFT [facility] Last Admin: 04/19/22 10:30 Dose: Not Given Documented By: TODD Non-Admin Reason: No Access Labs CBC & Chem 7: 01/16/22 05:35 04/13/22 12:01 Labs: Laboratory Results - last 24 hr 04/18/22 04/18/22 04/19/22 16:15 19:57 12:03 POC Glucose 169 H 157 H 174 H Assessment and Plan (1) Pulmonary hypertension: Status: Acute (2) Schizo affective schizophrenia: Status: Acute Plan 61-year-old male with a past medical history of schizophrenia, CHF, asthma/COPD, diabetes, hyperlipidemia [facility] with a chief complaint of acute hypoxia. Noted to have following conditions No new medical issues. next lab check 04/23/22 unless needed earlier No further episodes of elopement, continue sitter, Camera in room Acute hypoxic respiratory failure on presentation suspected d/t COPD/asthma/CHF. Resolved Acute asthma/COPD, chronic intermittent No acute symptoms, continue bronchodilator, Patient has no formal diagnosis. Patient is supposed to be following up with pulmonology as outpatient. He had similar presentation in December 2021. Pulmonary HTN Asymptomatic, continue Viagra, outpatient follow up Heart failure with preserved ejection fraction EF 55 to 60,no acute exacerbation, continue oral Lasix 40 bid Diabetes/hyperglycemia blood sugars in acceptable range continue lantus, SSI, metformin and Sitagliptin schizoaffective disorder Continue home Depakote, haloperidol DVT prophylaxis: Lovenox Code status: Full code. Confirmed with the patient's guardian [facility] proxy invoked. Lacks capacity for medical decision, awaiting permanent placement Need for inpatient : awaiting placement attending - dr. tarango Quality Stroke Does the patient have a stroke diagnosis?: No VTE Prior VTE?: No VTE Risk Level:: Medical - moderate - high VTE Device Contraindication: Treatment Not Indicated VTE Drug Contraindication: N/A - Med Ordered
[2022-04-19 15:32] VITALS: BP 97/56; PULSE 84; RESP 15; TEMP 36.2; O2SAT 95
[2022-04-19 15:42] LABS: Glucose, Whole Blood 123 mg/dL (60-115)
[2022-04-19] MEDS: Divalproex Sodium ER 250 MG TAB.ER.24H PO (17:09)
[2022-04-19 20:01] LABS: Glucose, Whole Blood 110 mg/dL (60-115)
[2022-04-19] MEDS: Insulin Glargine,Hum.rec.anlog 100 UNIT/ML 10 ML VIAL 10 UNIT SUBCUT (20:33)
[2022-04-20 07:44] LABS: Glucose, Whole Blood 138 mg/dL (60-115)
[2022-04-20 07:49] VITALS: BP 86/63; PULSE 75; RESP 18; TEMP 36.2; O2SAT 94
[2022-04-20] MEDS: metFORMIN HCl 500 MG TABLET PO ×2 (09:41→16:09)
[2022-04-20] MEDS: HaloperidoL 5 MG TABLET 10 MG PO ×2 (09:41→20:26)
[2022-04-20 11:11] LABS: Glucose, Whole Blood 113 mg/dL (60-115)
--- NOTE | 2022-04-20 12:18 | MHC.CM.PN ---
EMR REVIEWED, CM RECEIVED A CALL FROM PT'S GUARDIAN JEN [phone], JEN PROVIDED W/UPDATE ON PLACEMENT STATUS AND REPORTED PT HAS A RI-TRIAL CONFERENCE FOR [facility] ON 05/21, JEN REPORTS [facility] HAS BEEN UPDATED VIA [employer]. CM WILL CONT TO FOLLOW D/C NEEDS.
[2022-04-20 15:26] VITALS: BP 106/63; PULSE 71; RESP 18; TEMP 36.6; O2SAT 100
--- NOTE | 2022-04-20 16:00 | P.PNIM_ITS ---
Subjective Subjective Date of Service: 04/20/22 Interval History: Seen and examined this morning follow up for placement no overnight events No specific complaints this morning Review of Systems Review of Systems: Yes all other systems are reviewed and are negative Constitutional Constitutional: Denies chills and Denies fever(s) Cardiovascular Cardiovascular: Denies chest pain and Denies dyspnea Respiratory Respiratory: Denies cough and Denies dyspnea Physical Exam Vital Signs: Vital Signs: Last Vital Signs Temp 97.9 F 04/20/22 15:26 Pulse 71 04/20/22 15:26 Resp 18 04/20/22 15:26 BP 106/63 04/20/22 15:26 Pulse Ox 100 04/20/22 15:26 O2 Del Method 04/20/22 15:26 O2 Flow Rate 2 02/16/22 07:18 FiO2 94 02/13/22 15:38 BMI result Body Mass Index 21.8 Const: General: comfortable, no acute distress, alert and awake Nutritional Appearance: average body habitus Resp: Effort & Inspection: normal respiratory effort and able to speak in complete sentences Cardio: Rate: regular rate Heart sounds: S1 normal heart sound present and S2 normal heart sound present GI: Inspection: No distended Palpation (GI): Soft to palpation and nontender Extrem: General: Yes no pedal edema Psych: Other: flat affect Objective Data Active Medications Acetaminophen (Acetaminophen 325 Mg Tablet) 650 mg PO Q6H PRN PRN Reason: Pain, Mild (Pain Scale 1-3) Atorvastatin Calcium (Atorvastatin Calcium 40 Mg Tablet) 40 mg PO DAILY [facility] Last Admin: 04/20/22 09:45 Dose: Not Given Documented By: ATIF Non-Admin Reason: Patient Refused Dextrose (Dextrose 50 % 25 Gm/50 Ml Syringe) 25 gm IVPUSH Q15M PRN; Protocol PRN Reason: per Hypoglycemia Standing Ord. Divalproex Sodium (Divalproex Sodium Er 250 Mg Tab.Er.24h) 250 mg PO DAILY@1700 [facility] Last Admin: 04/19/22 17:09 Dose: 250 mg Documented By: ARTIS Divalproex Sodium (Divalproex Sodium Er 500 Mg Tab.Er.24h) 500 mg PO DAILY [facility] Last Admin: 04/20/22 09:45 Dose: Not Given Documented By: ATIF Non-Admin Reason: Patient Refused Ferrous Sulfate (Ferrous Sulfate 324 Mg Tablet.) 324 mg PO BID [facility] Last Admin: 04/20/22 09:45 Dose: Not Given Documented By: ATIF Non-Admin Reason: Patient Refused Fluticasone Propionate (Fluticasone Propionate Nasal 16 Gm [place]) 1 spray NO STRIL-B BID [facility] Last Admin: 04/20/22 09:45 Dose: Not Given Documented By: ATIF Non-Admin Reason: Patient Refused Furosemide (Furosemide 40 Mg Tablet) 40 mg PO BID@0900,1800 [facility]; Protocol Last Admin: 04/20/22 09:45 Dose: Not Given Documented By: ATIF Non-Admin Reason: Patient Refused Glucose (Glucose Gel 15 Gm Gel..Gram.) 15 gm PO Q15M PRN; Protocol PRN Reason: per Hypoglycemia Standing Ord. Haloperidol (Haloperidol 5 Mg Tablet) 10 mg PO BID [facility] Last Admin: 04/20/22 09:41 Dose: 10 mg Documented By: ATIF Insulin Glargine (Insulin Glargine,Hum.Rec.Anlog 100 Unit/Ml 10 Ml Vial) 10 unit SUBCUT BEDTIME [facility] Last Admin: 04/19/22 20:33 Dose: 10 unit Documented By: ELOINA Insulin Human Lispro (Insulin Lispro 100 Unit/Ml 3 Ml Vial) 0 unit SUBCUT QIDACHS [facility]; Protocol Last Admin: 04/20/22 12:17 Dose: Not Given Documented By: ATIF Non-Admin Reason: No Insulin Coverage Melatonin (Melatonin 3 Mg Tablet) 6 mg PO BEDTIME PRN PRN Reason: Insomnia Last Admin: 04/05/22 20:56 Dose: 6 mg Documented By: ANA Metformin HCl (Metformin Hcl 500 Mg Tablet) 500 mg PO BIDWM [facility] Last Admin: 04/20/22 09:41 Dose: 500 mg Documented By: ATIF Neomycin/Polymyxin/Hydrocortisone (Neomycin/Polymyxin/Hc Otic Melanie 10 Ml Drpbtl) 3 drop EAR-RIGHT QID [facility] Last Admin: 04/20/22 13:38 Dose: Not Given Documented By: ATIF Non-Admin Reason: Patient Refused Olanzapine (Olanzapine Odt 10 Mg Tab.Rapdis) 5 mg TRANSLINGU BID PRN PRN Reason: agitation, psychosis Last Admin: 03/15/22 19:48 Dose: 5 mg Documented By: GENIE Omeprazole (Omeprazole 20 Mg [place].) 20 mg PO DAILY@0630 [facility] Last Admin: 04/20/22 05:52 Dose: Not Given Documented By: DENISE Non-Admin Reason: Patient Refused Senna (Sennosides 8.6 Mg Tablet) 17.2 mg PO BEDTIME PRN PRN Reason: Constipation Sildenafil Citrate (Sildenafil Citrate 20 Mg Tablet) 20 mg PO TID [facility] Last Admin: 04/20/22 09:45 Dose: Not Given Documented By: ATIF Non-Admin Reason: Patient Refused Sitagliptin Phosphate (Sitagliptin Phosphate 100 Mg Tablet) 100 mg PO DAILY [facility] Last Admin: 04/20/22 09:46 Dose: Not Given Documented By: ATIF Non-Admin Reason: Patient Refused Sodium Chloride (0.9 % Sodium Chloride Flush 3 Ml Syringe) 3 ml IVFLUSH QSHIFT [facility] Last Admin: 04/20/22 09:06 Dose: Not Given Documented By: ATIF Non-Admin Reason: No Access Labs CBC & Chem 7: 01/16/22 05:35 04/13/22 12:01 Labs: Laboratory Results - last 24 hr 04/19/22 04/20/22 04/20/22 19:14 07:25 11:07 POC Glucose 110 138 H 113 Assessment and Plan (1) Pulmonary hypertension: Status: Acute (2) Schizo affective schizophrenia: Status: Acute Plan 61-year-old male with a past medical history of schizophrenia, CHF, asthma/COPD, diabetes, hyperlipidemia [facility] with a chief complaint of acute hypoxia. Noted to have following conditions No new medical issues. next lab check 04/23/22 unless needed earlier No further episodes of elopement, continue sitter, Camera in room Acute hypoxic respiratory failure on presentation suspected d/t COPD/asthma/CHF. Resolved Acute asthma/COPD, chronic intermittent No acute symptoms, continue bronchodilator, Patient has no formal diagnosis. Patient is supposed to be following up with pulmonology as outpatient. He had similar presentation in December 2021. Pulmonary HTN Asymptomatic, continue Viagra, outpatient follow up Heart failure with preserved ejection fraction EF 55 to 60,no acute exacerbation, continue oral Lasix 40 bid Diabetes/hyperglycemia blood sugars in acceptable range continue lantus, SSI, metformin and Sitagliptin schizoaffective disorder Continue home Depakote, haloperidol DVT prophylaxis: Lovenox Code status: Full code. Confirmed with the patient's guardian [facility] proxy invoked. Lacks capacity for medical decision, awaiting permanent placement Need for inpatient : awaiting placement attending - dr. redd Quality Stroke Does the patient have a stroke diagnosis?: No VTE Prior VTE?: No VTE Risk Level:: Medical - moderate - high VTE Device Contraindication: Treatment Not Indicated VTE Drug Contraindication: N/A - Med Ordered
[2022-04-20] MEDS: Furosemide 40 MG TABLET PO (16:09)
[2022-04-20] MEDS: Divalproex Sodium ER 250 MG TAB.ER.24H PO (16:09)
[2022-04-20] MEDS: Sildenafil Citrate 20 MG TABLET PO ×2 (16:09→20:25)
[2022-04-20 17:17] LABS: Glucose, Whole Blood 148 mg/dL (60-115)
[2022-04-20 19:51] LABS: Glucose, Whole Blood 166 mg/dL (60-115)
[2022-04-20] MEDS: Ferrous Sulfate 324 MG TABLET.DR PO (20:24)
[2022-04-20] MEDS: Insulin Glargine,Hum.rec.anlog 100 UNIT/ML 10 ML VIAL 10 UNIT SUBCUT (20:28)
[2022-04-20 23:20] VITALS: BP 99/60; PULSE 85; RESP 18; TEMP 36.9; O2SAT 93
--- NOTE | 2022-04-21 08:43 | PC.NURSE ---
[facility] refused ALL care this mornig - hostile, aggressive and intimidating to this RN - pt slammed the door closed. Jose Miguel LYON made aware.
--- NOTE | 2022-04-21 10:51 | HO.PM.IMPN ---
Subjective Subjective Date of Service: 04/21/22 Interval History: follow up for placement no overnight events No specific complaints this morning Review of Systems Review of Systems: Yes all other systems are reviewed and are negative Constitutional Constitutional: Denies chills and Denies fever(s) Cardiovascular Cardiovascular: Denies chest pain and Denies dyspnea Respiratory Respiratory: Denies cough and Denies dyspnea Physical Exam Vital Signs: Vital Signs: Last Vital Signs Temp 98.4 F 04/20/22 23:20 Pulse 85 04/20/22 23:20 Resp 18 04/20/22 23:20 BP 99/60 04/20/22 23:20 Pulse Ox 93 04/20/22 23:20 O2 Del Method 04/20/22 23:20 O2 Flow Rate 2 02/16/22 07:18 FiO2 94 02/13/22 15:38 BMI result Body Mass Index 21.8 declined exam Objective Data Active Medications Acetaminophen (Acetaminophen 325 Mg Tablet) 650 mg PO Q6H PRN PRN Reason: Pain, Mild (Pain Scale 1-3) Atorvastatin Calcium (Atorvastatin Calcium 40 Mg Tablet) 40 mg PO DAILY [facility] Last Admin: 04/21/22 08:46 Dose: Not Given Documented By: MAGDY Non-Admin Reason: Patient Refused Dextrose (Dextrose 50 % 25 Gm/50 Ml Syringe) 25 gm IVPUSH Q15M PRN; Protocol PRN Reason: per Hypoglycemia Standing Ord. Divalproex Sodium (Divalproex Sodium Er 250 Mg Tab.Er.24h) 250 mg PO DAILY@1700 [facility] Last Admin: 04/20/22 16:09 Dose: 250 mg Documented By: ATIF Divalproex Sodium (Divalproex Sodium Er 500 Mg Tab.Er.24h) 500 mg PO DAILY [facility] Last Admin: 04/21/22 08:46 Dose: Not Given Documented By: MAGDY Non-Admin Reason: Patient Refused Ferrous Sulfate (Ferrous Sulfate 324 Mg Tablet.) 324 mg PO BID [facility] Last Admin: 04/21/22 08:46 Dose: Not Given Documented By: MAGDY Non-Admin Reason: Patient Refused Fluticasone Propionate (Fluticasone Propionate Nasal 16 Gm [place]) 1 spray NOSTRIL-B BID [facility] Last Admin: 04/21/22 08:46 Dose: Not Given Documented By: MAGDY Non-Admin Reason: Patient Refused Furosemide (Furosemide 40 Mg Tablet) 40 mg PO BID@0900,1800 [facility]; Protocol Last Admin: 04/21/22 08:46 Dose: Not Given Documented By: MAGDY Non-Admin Reason: Patient Refused Glucose (Glucose Gel 15 Gm Gel..Gram.) 15 gm PO Q15M PRN; Protocol PRN Reason: per Hypoglycemia Standing Ord. Haloperidol (Haloperidol 5 Mg Tablet) 10 mg PO BID [facility] Last Admin: 04/21/22 08:46 Dose: Not Given Documented By: MAGDY Non-Admin Reason: Patient Refused Insulin Glargine (Insulin Glargine,Hum.Rec.Anlog 100 Unit/Ml 10 Ml Vial) 10 unit SUBCUT BEDTIME [facility] Last Admin: 04/20/22 20:28 Dose: 10 unit Documented By: YUDI Insulin Human Lispro (Insulin Lispro 100 Unit/Ml 3 Ml Vial) 0 unit SUBCUT QIDACHS [facility]; Protocol Last Admin: 04/21/22 08:45 Dose: Not Given Documented By: MAGDY Non-Admin Reason: Patient Refused Melatonin (Melatonin 3 Mg Tablet) 6 mg PO BEDTIME PRN PRN Reason: Insomnia Last Admin: 04/05/22 20:56 Dose: 6 mg Documented By: ANA Metformin HCl (Metformin Hcl 500 Mg Tablet) 500 mg PO BIDWM [facility] Last Admin: 04/21/22 08:46 Dose: Not Given Documented By: MAGDY Non-Admin Reason: Patient Refused Neomycin/Polymyxin/Hydrocortisone (Neomycin/Polymyxin/Hc Otic Melanie 10 Ml Drpbtl) 3 drop EAR-RIGHT QID [facility] Last Admin: 04/21/22 08:47 Dose: Not Given Documented By: MAGDY Non-Admin Reason: Patient Refused Olanzapine (Olanzapine Odt 10 Mg Tab.Rapdis) 5 mg TRANSLINGU BID PRN PRN Reason: agitation, psychosis Last Admin: 03/15/22 19:48 Dose: 5 mg Documented By: GNEIE Omeprazole (Omeprazole 20 Mg Capsule.Dr) 20 mg PO DAILY@0630 [facility] Last Admin: 04/21/22 05:17 Dose: Not Given Documented By: YUDI Non-Admin Reason: Patient Refused Senna (Sennosides 8.6 Mg Tablet) 17.2 mg PO BEDTIME PRN PRN Reason: Constipation Sildenafil Citrate (Sildenafil Citrate 20 Mg Tablet) 20 mg PO TID [facility] Last Admin: 04/21/22 08:47 Dose: Not Given Documented By: MAGDY Non-Admin Reason: Patient Refused Sitagliptin Phosphate (Sitagliptin Phosphate 100 Mg Tablet) 100 mg PO DAILY [facility] Last Admin: 04/21/22 08:47 Dose: Not Given Documented By: MAGDY Non-Admin Reason: Patient Refused Sodium Chloride (0.9 % Sodium Chloride Flush 3 Ml Syringe) 3 ml IVFLUSH QSHIFT [facility] Last Admin: 04/21/22 08:45 Dose: Not Given Documented By: MAGDY Non-Admin Reason: Patient Refused Labs CBC & Chem 7: 01/16/22 05:35 04/13/22 12:01 Labs: Laboratory Results - last 24 hr 04/20/22 04/20/22 04/20/22 11:07 17:08 19:47 POC Glucose 113 148 H 166 H Assessment and Plan (1) Pulmonary hypertension: Status: Acute (2) Schizo affective schizophrenia: Status: Acute Plan 61-year-old male with a past medical history of schizophrenia, CHF, asthma/COPD, diabetes, hyperlipidemia [facility] with a chief complaint of acute hypoxia. Noted to have following conditions No new medical issues. next lab check 04/23/22 unless needed earlier No further episodes of elopement, continue sitter, Camera in room Acute hypoxic respiratory failure on presentation suspected d/t COPD/asthma/CHF. Resolved Acute asthma/COPD, chronic intermittent No acute symptoms, continue bronchodilator, Patient has no formal diagnosis. Patient is supposed to be following up with pulmonology as outpatient. He had similar presentation in December 2021. Pulmonary HTN Asymptomatic, continue Viagra, outpatient follow up Heart failure with preserved ejection fraction EF 55 to 60,no acute exacerbation, continue oral Lasix 40 bid Diabetes/hyperglycemia blood sugars in acceptable range continue lantus, SSI, metformin and Sitagliptin schizoaffective disorder Continue home Depakote, haloperidol DVT prophylaxis: Lovenox Code status: Full code. Confirmed with the patient's guardian [facility] proxy invoked. Lacks capacity for medical decision, awaiting permanent placement Need for inpatient : awaiting placement attending - dr. Rose Quality Stroke Does the patient have a stroke diagnosis?: No VTE Prior VTE?: No VTE Risk Level:: Medical - moderate - high VTE Device Contraindication: Treatment Not Indicated VTE Drug Contraindication: N/A - Med Ordered
[2022-04-21 15:09] VITALS: BP 106/69; PULSE 81; RESP 18; TEMP 36.2; O2SAT 91
[2022-04-21 15:19] LABS: Glucose, Whole Blood 354 mg/dL (60-115)
[2022-04-21] MEDS: Insulin Lispro 100 UNIT/ML 3 ML VIAL SUBCUT (15:20)
[2022-04-21] MEDS: metFORMIN HCl 500 MG TABLET PO (15:22)
[2022-04-21 19:31] LABS: Glucose, Whole Blood 212 mg/dL (60-115)
[2022-04-21] MEDS: Sildenafil Citrate 20 MG TABLET PO (19:52)
[2022-04-21] MEDS: Insulin Glargine,Hum.rec.anlog 100 UNIT/ML 10 ML VIAL 10 UNIT SUBCUT (19:52)
[2022-04-21] MEDS: HaloperidoL 5 MG TABLET 10 MG PO (19:53)
[2022-04-21] MEDS: Ferrous Sulfate 324 MG TABLET.DR PO (19:53)
[2022-04-21 23:57] VITALS: BP 113/62; PULSE 75; RESP 18; TEMP 36.2; O2SAT 94
[2022-04-22 07:03] VITALS: BP 106/67; PULSE 72; RESP 17; TEMP 36.5; O2SAT 93
[2022-04-22 07:26] LABS: Glucose, Whole Blood 173 mg/dL (60-115)
--- NOTE | 2022-04-22 11:07 | HO.PM.IMPN ---
Subjective Subjective Date of Service: 04/22/22 Interval History: follow up for placement no overnight events No specific complaints this morning Review of Systems Review of Systems: Yes all other systems are reviewed and are negative Constitutional Constitutional: Denies chills and Denies fever(s) Cardiovascular Cardiovascular: Denies chest pain and Denies dyspnea Respiratory Respiratory: Denies cough and Denies dyspnea Physical Exam Vital Signs: Vital Signs: Last Vital Signs Temp 97.7 F 04/22/22 07:03 Pulse 72 04/22/22 07:03 Resp 17 04/22/22 07:03 BP 106/67 04/22/22 07:03 Pulse Ox 93 04/22/22 07:03 O2 Del Method 04/22/22 07:03 O2 Flow Rate 2 02/16/22 07:18 FiO2 94 02/13/22 15:38 BMI result Body Mass Index 21.8 declined exam Objective Data Active Medications Acetaminophen (Acetaminophen 325 Mg Tablet) 650 mg PO Q6H PRN PRN Reason: Pain, Mild (Pain Scale 1-3) Atorvastatin Calcium (Atorvastatin Calcium 40 Mg Tablet) 40 mg PO DAILY [facility] Last Admin: 04/22/22 09:37 Dose: Not Given Documented By: MAGDY Non-Admin Reason: Patient Refused Dextrose (Dextrose 50 % 25 Gm/50 Ml Syringe) 25 gm IVPUSH Q15M PRN; Protocol PRN Reason: per Hypoglycemia Standing Ord. Divalproex Sodium (Divalproex Sodium Er 250 Mg Tab.Er.24h) 250 mg PO DAILY@1700 [facility] Last Admin: 04/21/22 17:54 Dose: Not Given Documented By: MAGDY Non-Admin Reason: Patient Refused Divalproex Sodium (Divalproex Sodium Er 500 Mg Tab.Er.24h) 500 mg PO DAILY [facility] Last Admin: 04/22/22 09:37 Dose: Not Given Documented By: MAGDY Non-Admin Reason: Patient Refused Ferrous Sulfate (Ferrous Sulfate 324 Mg Tablet.) 324 mg PO BID [facility] Last Admin: 04/22/22 09:38 Dose: Not Given Documented By: MAGDY Non-Admin Reason: Patient Refused Fluticasone Propionate (Fluticasone Propionate Nasal 16 Gm [place]) 1 spray NOSTRIL-B BID [facility] Last Admin: 04/22/22 09:38 Dose: Not Given Documented By: MAGDY Non-Admin Reason: Patient Refused Furosemide (Furosemide 40 Mg Tablet) 40 mg PO BID@0900,1800 [facility]; Protocol Last Admin: 04/22/22 09:38 Dose: Not Given Documented By: MAGDY Non-Admin Reason: Patient Refused Glucose (Glucose Gel 15 Gm Gel..Gram.) 15 gm PO Q15M PRN; Protocol PRN Reason: per Hypoglycemia Standing Ord. Haloperidol (Haloperidol 5 Mg Tablet) 10 mg PO BID [facility] Last Admin: 04/22/22 09:38 Dose: Not Given Documented By: MAGDY Non-Admin Reason: Patient Refused Insulin Glargine (Insulin Glargine,Hum.Rec.Anlog 100 Unit/Ml 10 Ml Vial) 10 unit SUBCUT BEDTIME [facility] Last Admin: 04/21/22 19:52 Dose: 10 unit Documented By: YUDI Insulin Human Lispro (Insulin Lispro 100 Unit/Ml 3 Ml Vial) 0 unit SUBCUT QIDACHS [facility]; Protocol Last Admin: 04/22/22 08:15 Dose: Not Given Documented By: MAGDY Non-Admin Reason: Patient Refused Melatonin (Melatonin 3 Mg Tablet) 6 mg PO BEDTIME PRN PRN Reason: Insomnia Last Admin: 04/05/22 20:56 Dose: 6 mg Documented By: ANA Metformin HCl (Metformin Hcl 500 Mg Tablet) 500 mg PO BIDWM [facility] Last Admin: 04/22/22 09:36 Dose: Not Given Documented By: MAGDY Non-Admin Reason: Patient Refused Neomycin/Polymyxin/Hydrocortisone (Neomycin/Polymyxin/Hc Otic Melanie 10 Ml Drpbtl) 3 drop EAR-RIGHT QID [facility] Last Admin: 04/22/22 09:39 Dose: Not Given Documented By: MAGDY Non-Admin Reason: Patient Refused Olanzapine (Olanzapine Odt 10 Mg Tab.Rapdis) 5 mg TRANSLINGU BID PRN PRN Reason: agitation, psychosis Last Admin: 03/15/22 19:48 Dose: 5 mg Documented By: GENIE Omeprazole (Omeprazole 20 Mg Capsule.Dr) 20 mg PO DAILY@0630 [facility] Last Admin: 04/22/22 05:10 Dose: Not Given Documented By: YUDI Non-Admin Reason: Patient Refused Senna (Sennosides 8.6 Mg Tablet) 17.2 mg PO BEDTIME PRN PRN Reason: Constipation Sildenafil Citrate (Sildenafil Citrate 20 Mg Tablet) 20 mg PO TID [facility] Last Admin: 04/22/22 09:39 Dose: Not Given Documented By: MAGDY Non-Admin Reason: Patient Refused Sitagliptin Phosphate (Sitagliptin Phosphate 100 Mg Tablet) 100 mg PO DAILY [facility] Last Admin: 04/22/22 09:39 Dose: Not Given Documented By: MAGDY Non-Admin Reason: Patient Refused Sodium Chloride (0.9 % Sodium Chloride Flush 3 Ml Syringe) 3 ml IVFLUSH QSHIFT [facility] Last Admin: 04/22/22 08:14 Dose: Not Given Documented By: MAGDY Non-Admin Reason: No Access Labs CBC & Chem 7: 01/16/22 05:35 04/13/22 12:01 Labs: Laboratory Results - last 24 hr 04/21/22 04/21/22 04/22/22 15:12 19:23 07:06 POC Glucose 354 H* 212 H 173 H Assessment and Plan (1) Pulmonary hypertension: Status: Acute (2) Schizo affective schizophrenia: Status: Acute Plan 61-year-old male with a past medical history of schizophrenia, CHF, asthma/COPD, diabetes, hyperlipidemia presented from the skilled nursing with a chief complaint of acute hypoxia. Noted to have following conditions No new medical issues. next lab check 04/23/22 unless needed earlier No further episodes of elopement, continue sitter, Camera in room Acute hypoxic respiratory failure on presentation suspected d/t COPD/asthma/CHF. Resolved Acute asthma/COPD, chronic intermittent No acute symptoms, continue bronchodilator, Patient has no formal diagnosis. Patient is supposed to be following up with pulmonology as outpatient. He had similar presentation in December 2021. Pulmonary HTN Asymptomatic, continue Viagra, outpatient follow up Heart failure with preserved ejection fraction EF 55 to 60,no acute exacerbation, continue oral Lasix 40 bid Diabetes/hyperglycemia blood sugars in acceptable range continue lantus, SSI, metformin and Sitagliptin schizoaffective disorder Continue home Depakote, haloperidol DVT prophylaxis: Lovenox Code status: Full code. Confirmed with the patient's guardian [facility] proxy invoked. Lacks capacity for medical decision, awaiting permanent placement Need for inpatient : awaiting placement attending - dr. Rose Quality Stroke Does the patient have a stroke diagnosis?: No VTE Prior VTE?: No VTE Risk Level:: Medical - moderate - high VTE Device Contraindication: Treatment Not Indicated VTE Drug Contraindication: N/A - Med Ordered
[2022-04-22 11:56] LABS: Glucose, Whole Blood 186 mg/dL (60-115)
[2022-04-22 16:00] VITALS: BP 100/67; PULSE 74; RESP 19; TEMP 37.3; O2SAT 94
[2022-04-22 16:55] LABS: Glucose, Whole Blood 169 mg/dL (60-115)
[2022-04-22 19:26] LABS: Glucose, Whole Blood 167 mg/dL (60-115)
[2022-04-22] MEDS: HaloperidoL 5 MG TABLET 10 MG PO (21:18)
[2022-04-22] MEDS: Melatonin 3 MG TABLET 6 MG PO (21:18)
[2022-04-22] MEDS: Ferrous Sulfate 324 MG TABLET.DR PO (21:18)
[2022-04-22] MEDS: Sildenafil Citrate 20 MG TABLET PO (21:18)
[2022-04-22] MEDS: Insulin Glargine,Hum.rec.anlog 100 UNIT/ML 10 ML VIAL 10 UNIT SUBCUT (21:26)
[2022-04-22 23:43] VITALS: BP 97/62; PULSE 74; RESP 16; TEMP 36.3; O2SAT 92
[2022-04-23 07:16] VITALS: BP 103/58; PULSE 73; RESP 18; TEMP 36.7; O2SAT 95
[2022-04-23 07:28] LABS: Glucose, Whole Blood 161 mg/dL (60-115)
[2022-04-23] MEDS: Insulin Lispro 100 UNIT/ML 3 ML VIAL SUBCUT ×2 (07:53→17:26)
[2022-04-23] MEDS: metFORMIN HCl 500 MG TABLET PO ×2 (07:54→17:25)
[2022-04-23] MEDS: Ferrous Sulfate 324 MG TABLET.DR PO ×2 (07:54→21:15)
[2022-04-23] MEDS: Omeprazole 20 MG CAPSULE.DR PO (07:54)
[2022-04-23] MEDS: SITagliptin Phosphate 100 MG TABLET PO (07:54)
[2022-04-23] MEDS: Sildenafil Citrate 20 MG TABLET PO ×3 (07:54→21:17)
[2022-04-23] MEDS: Atorvastatin Calcium 40 MG TABLET PO (07:54)
[2022-04-23] MEDS: Divalproex Sodium ER 500 MG TAB.ER.24H PO (07:54)
[2022-04-23] MEDS: Furosemide 40 MG TABLET PO ×2 (07:55→17:25)
[2022-04-23] MEDS: HaloperidoL 5 MG TABLET 10 MG PO ×2 (07:55→21:15)
[2022-04-23 08:56] LABS: Hematocrit 40.7 % (42.0-52.0); Hemoglobin 12.9 g/dl (14.0-18.0); Mean Corpuscular HGB Conc 31.7 g/dl (31.0-36.0); Mean Corpuscular Hemoglobin 27.3 pg (27.0-33.0); Mean Platelet Volume 10.3 fL (9.4-12.4); Platelet Count 205 X10*3/uL (160-400); Red Blood Count 4.73 X10*6/uL (4.60-5.80); White Blood Count 4.2 X10*3/uL (4.8-10.8)
--- NOTE | 2022-04-23 09:08 | HO.PM.IMPN ---
Subjective Subjective Date of Service: 04/23/22 Interval History: Follow up for placement no overnight events No specific complaints this morning Review of Systems Review of Systems: Yes all other systems are reviewed and are negative Constitutional Constitutional: Denies chills and Denies fever(s) Cardiovascular Cardiovascular: Denies chest pain and Denies dyspnea Respiratory Respiratory: Denies cough and Denies dyspnea Physical Exam Vital Signs: Vital Signs: Last Vital Signs Temp 98.0 F 04/23/22 07:16 Pulse 73 04/23/22 07:16 Resp 18 04/23/22 07:16 BP 103/58 L 04/23/22 07:16 Pulse Ox 95 04/23/22 07:16 O2 Del Method 04/23/22 07:16 O2 Flow Rate 2 02/16/22 07:18 FiO2 94 02/13/22 15:38 BMI result Body Mass Index 21.8 Appearing in no acute distress lung sounds are clear to auscultation heart regular rate rhythm, clear S1, S2 positive bowel sounds, abdomen is soft, nontender alert Objective Data Active Medications Acetaminophen (Acetaminophen 325 Mg Tablet) 650 mg PO Q6H PRN PRN Reason: Pain, Mild (Pain Scale 1-3) Atorvastatin Calcium (Atorvastatin Calcium 40 Mg Tablet) 40 mg PO DAILY [facility] Last Admin: 04/23/22 07:54 Dose: 40 mg Documented By: KAYLAN Dextrose (Dextrose 50 % 25 Gm/50 Ml Syringe) 25 gm IVPUSH Q15M PRN; Protocol PRN Reason: per Hypoglycemia Standing Ord. Divalproex Sodium (Divalproex Sodium Er 250 Mg Tab.Er.24h) 250 mg PO DAILY@1700 [facility] Last Admin: 04/22/22 17:13 Dose: Not Given Documented By: MAGDY Non-Admin Reason: Patient Refused Divalproex Sodium (Divalproex Sodium Er 500 Mg Tab.Er.24h) 500 mg PO DAILY [facility] Last Admin: 04/23/22 07:54 Dose: 500 mg Documented By: KAYLAN Ferrous Sulfate (Ferrous Sulfate 324 Mg Tablet.Dr) 324 mg PO BID [facility] Last Admin: 04/23/22 07:54 Dose: 324 mg Documented By: KAYLAN Fluticasone Propionate (Fluticasone Propionate Nasal 16 Gm [place]) 1 spray NOSTRIL-B BID [facility] Last Admin: 04/23/22 07:56 Dose: Not Given Documented By: KAYLAN Non-Admin Reason: Patient Refused Furosemide (Furosemide 40 Mg Tablet) 40 mg PO BID@0900,1800 [facility]; Protocol Last Admin: 04/23/22 07:55 Dose: 40 mg Documented By: KAYLAN Glucose (Glucose Gel 15 Gm Gel..Gram.) 15 gm PO Q15M PRN; Protocol PRN Reason: per Hypoglycemia Standing Ord. Haloperidol (Haloperidol 5 Mg Tablet) 10 mg PO BID [facility] Last Admin: 04/23/22 07:55 Dose: 10 mg Documented By: KAYLAN Insulin Glargine (Insulin Glargine,Hum.Rec.Anlog 100 Unit/Ml 10 Ml Vial) 10 unit SUBCUT BEDTIME [facility] Last Admin: 04/22/22 21:26 Dose: 10 unit Documented By: EMELINA Insulin Human Lispro (Insulin Lispro 100 Unit/Ml 3 Ml Vial) 0 unit SUBCUT QIDACHS [facility]; Protocol Last Admin: 04/23/22 07:53 Dose: 2 unit Documented By: KAYLAN Melatonin (Melatonin 3 Mg Tablet) 6 mg PO BEDTIME PRN PRN Reason: Insomnia Last Admin: 04/22/22 21:18 Dose: 6 mg Documented By: EMELINA Metformin HCl (Metformin Hcl 500 Mg Tablet) 500 mg PO BIDWM [facility] Last Admin: 04/23/22 07:54 Dose: 500 mg Documented By: KAYLAN Neomycin/Polymyxin/Hydrocortisone (Neomycin/Polymyxin/Hc Otic Melanie 10 Ml Drpbtl) 3 drop EAR-RIGHT QID [facility] Last Admin: 04/23/22 07:57 Dose: Not Given Documented By: KAYLAN Non-Admin Reason: Patient Refused Olanzapine (Olanzapine Odt 10 Mg Tab.Rapdis) 5 mg TRANSLINGU BID PRN PRN Reason: agitation, psychosis Last Admin: 03/15/22 19:48 Dose: 5 mg Documented By: GENIE Omeprazole (Omeprazole 20 Mg Capsule.Dr) 20 mg PO DAILY@0630 [facility] Last Admin: 04/23/22 07:54 Dose: 20 mg Documented By: KAYLAN Senna (Sennosides 8.6 Mg Tablet) 17.2 mg PO BEDTIME PRN PRN Reason: Constipation Sildenafil Citrate (Sildenafil Citrate 20 Mg Tablet) 20 mg PO TID [facility] Last Admin: 04/23/22 07:54 Dose: 20 mg Documented By: KAYLAN Sitagliptin Phosphate (Sitagliptin Phosphate 100 Mg Tablet) 100 mg PO DAILY [facility] Last Admin: 04/23/22 07:54 Dose: 100 mg Documented By: KAYLAN Sodium Chloride (0.9 % Sodium Chloride Flush 3 Ml Syringe) 3 ml IVFLUSH QSHIFT [facility] Last Admin: 04/23/22 07:57 Dose: Not Given Documented By: KAYLAN Non-Admin Reason: No Access Labs CBC & Chem 7: 04/23/22 07:52 04/13/22 12:01 Labs: Laboratory Results - last 24 hr 04/22/22 04/22/22 04/22/22 11:52 16:51 19:22 MCV MCH MCHC RDW Plt Count MPV Absolute Nucleated RBC Nucleated RBC % (auto) POC Glucose 186 H 169 H 167 H 04/23/22 04/23/22 07:23 07:52 MCV 86.0 MCH 27.3 MCHC 31.7 RDW 15.0 Plt Count 205 D MPV 10.3 Absolute Nucleated RBC 0.000 Nucleated RBC % (auto) 0.0 POC Glucose 161 H Assessment and Plan (1) Pulmonary hypertension: Status: Acute (2) Schizo affective schizophrenia: Status: Acute Plan 61-year-old male with a past medical history of schizophrenia, CHF, asthma/COPD, diabetes, hyperlipidemia [facility] with a chief complaint of acute hypoxia. Noted to have following conditions No new medical issues. Labs WNL No further episodes of elopement, continue sitter, Camera in room Acute hypoxic respiratory failure on presentation suspected d/t COPD/asthma/CHF. Resolved Acute asthma/COPD, chronic intermittent No acute symptoms, continue bronchodilator, Patient has no formal diagnosis. Patient is supposed to be following up with pulmonology as outpatient. He had similar presentation in December 2021. Pulmonary HTN Asymptomatic, continue Viagra, outpatient follow up Heart failure with preserved ejection fraction EF 55 to 60,no acute exacerbation, continue oral Lasix 40 bid Diabetes/hyperglycemia blood sugars in acceptable range continue lantus, SSI, metformin and Sitagliptin schizoaffective disorder Continue home Depakote, haloperidol DVT prophylaxis: Lovenox Code status: Full code. Confirmed with the patient's guardian [facility] proxy invoked. Lacks capacity for medical decision, awaiting permanent placement Need for inpatient : awaiting placement attending - dr. Pride Quality Stroke Does the patient have a stroke diagnosis?: No VTE Prior VTE?: No VTE Risk Level:: Medical - moderate - high VTE Device Contraindication: Treatment Not Indicated VTE Drug Contraindication: N/A - Med Ordered
[2022-04-23 09:09] LABS: Anion Gap 17 (12-20); Blood Urea Nitrogen 18 mg/dL (9-16); Calcium 9.2 mg/dL (8.4-10.2); Carbon Dioxide 25 mmol/L (22-29); Chloride 102 mmol/L (96-108); Creatinine Clr Calc Pharmacy 95.3; Estimated Glomerular Filt Rate > 60; Glucose Random 144 mg/dL (60-115); Potassium 4.6 mmol/L (3.3-5.1); Sodium 139 mmol/L (135-145)
[2022-04-23 15:20] VITALS: BP 112/70; PULSE 60; RESP 18; TEMP 36.9; O2SAT 96
[2022-04-23 15:45] LABS: Glucose, Whole Blood 155 mg/dL (60-115)
[2022-04-23] MEDS: Divalproex Sodium ER 250 MG TAB.ER.24H PO (17:26)
--- NOTE | 2022-04-23 18:15 | PC.NURSE ---
1100 pt refused lunch time POC. Gretchen Gillespie notified.
[2022-04-23 20:18] LABS: Glucose, Whole Blood 190 mg/dL (60-115)
[2022-04-23] MEDS: Melatonin 3 MG TABLET 6 MG PO (21:16)
[2022-04-23] MEDS: Insulin Glargine,Hum.rec.anlog 100 UNIT/ML 10 ML VIAL 10 UNIT SUBCUT (21:16)
[2022-04-24] MEDS: Furosemide 40 MG TABLET PO ×2 (10:08→18:00)
[2022-04-24] MEDS: HaloperidoL 5 MG TABLET 10 MG PO ×2 (10:08→21:50)
[2022-04-24] MEDS: Divalproex Sodium ER 500 MG TAB.ER.24H PO (10:09)
[2022-04-24] MEDS: SITagliptin Phosphate 100 MG TABLET PO (10:09)
[2022-04-24] MEDS: Ferrous Sulfate 324 MG TABLET.DR PO ×2 (10:09→21:50)
[2022-04-24] MEDS: Atorvastatin Calcium 40 MG TABLET PO (10:09)
[2022-04-24] MEDS: metFORMIN HCl 500 MG TABLET PO ×2 (10:09→18:00)
[2022-04-24] MEDS: Sildenafil Citrate 20 MG TABLET PO ×3 (10:11→21:50)
--- NOTE | 2022-04-24 11:44 | P.PNIM_ITS ---
Subjective Subjective Date of Service: 04/24/22 Interval History: Follow up for placement no overnight events No specific complaints this morning Review of Systems Review of Systems: Yes all other systems are reviewed and are negative Constitutional Constitutional: Denies chills and Denies fever(s) Cardiovascular Cardiovascular: Denies chest pain and Denies dyspnea Respiratory Respiratory: Denies cough and Denies dyspnea Physical Exam Vital Signs: Vital Signs: Last Vital Signs Temp 98.5 F 04/23/22 15:20 Pulse 60 04/23/22 15:20 Resp 18 04/23/22 15:20 BP 112/70 04/23/22 15:20 Pulse Ox 96 04/23/22 15:20 O2 Del Method 04/23/22 15:20 O2 Flow Rate 2 02/16/22 07:18 FiO2 94 02/13/22 15:38 BMI result Body Mass Index 21.8 declined exam Objective Data Active Medications Acetaminophen (Acetaminophen 325 Mg Tablet) 650 mg PO Q6H PRN PRN Reason: Pain, Mild (Pain Scale 1-3) Atorvastatin Calcium (Atorvastatin Calcium 40 Mg Tablet) 40 mg PO DAILY [facility] Last Admin: 04/24/22 10:09 Dose: 40 mg Documented By: LUCILA Dextrose (Dextrose 50 % 25 Gm/50 Ml Syringe) 25 gm IVPUSH Q15M PRN; Protocol PRN Reason: per Hypoglycemia Standing Ord. Divalproex Sodium (Divalproex Sodium Er 250 Mg Tab.Er.24h) 250 mg PO DAILY@1700 [facility] Last Admin: 04/23/22 17:26 Dose: 250 mg Documented By: KAYLAN Divalproex Sodium (Divalproex Sodium Er 500 Mg Tab.Er.24h) 500 mg PO DAILY [facility] Last Admin: 04/24/22 10:09 Dose: 500 mg Documented By: LUCILA Ferrous Sulfate (Ferrous Sulfate 324 Mg Tablet.) 324 mg PO BID [facility] Last Admin: 04/24/22 10:09 Dose: 324 mg Documented By: LUCILA Fluticasone Propionate (Fluticasone Propionate Nasal 16 Gm [place]) 1 spray NOSTRIL-B BID [facility] Last Admin: 04/24/22 10:07 Dose: Not Given Documented By: LUCILA Non-Admin Reason: Patient Refused Furosemide (Furosemide 40 Mg Tablet) 40 mg PO BID@0900,1800 [facility]; Protocol Last Admin: 04/24/22 10:08 Dose: 40 mg Documented By: LUCILA Glucose (Glucose Gel 15 Gm Gel..Gram.) 15 gm PO Q15M PRN; Protocol PRN Reason: per Hypoglycemia Standing Ord. Haloperidol (Haloperidol 5 Mg Tablet) 10 mg PO BID [facility] Last Admin: 04/24/22 10:08 Dose: 10 mg Documented By: LUCILA Insulin Glargine (Insulin Glargine,Hum.Rec.Anlog 100 Unit/Ml 10 Ml Vial) 10 unit SUBCUT BEDTIME [facility] Last Admin: 04/23/22 21:16 Dose: 10 unit Documented By: EMELINA Insulin Human Lispro (Insulin Lispro 100 Unit/Ml 3 Ml Vial) 0 unit SUBCUT QIDACHS [facility]; Protocol Last Admin: 04/24/22 11:33 Dose: Not Given Documented By: LUCILA Non-Admin Reason: pt refusing POC Melatonin (Melatonin 3 Mg Tablet) 6 mg PO BEDTIME PRN PRN Reason: Insomnia Last Admin: 04/23/22 21:16 Dose: 6 mg Documented By: EMELINA Metformin HCl (Metformin Hcl 500 Mg Tablet) 500 mg PO BIDWM [facility] Last Admin: 04/24/22 10:09 Dose: 500 mg Documented By: LUCILA Neomycin/Polymyxin/Hydrocortisone (Neomycin/Polymyxin/Hc Otic Melanie 10 Ml Drpbtl) 3 drop EAR-RIGHT QID [facility] Last Admin: 04/24/22 11:24 Dose: Not Given Documented By: LUCILA Non-Admin Reason: Patient Refused Olanzapine (Olanzapine Odt 10 Mg Tab.Rapdis) 5 mg TRANSLINGU BID PRN PRN Reason: agitation, psychosis Last Admin: 03/15/22 19:48 Dose: 5 mg Documented By: GENIE Omeprazole (Omeprazole 20 Mg Capsule.Dr) 20 mg PO DAILY@0630 [facility] Last Admin: 04/23/22 07:54 Dose: 20 mg Documented By: KAYLAN Senna (Sennosides 8.6 Mg Tablet) 17.2 mg PO BEDTIME PRN PRN Reason: Constipation Sildenafil Citrate (Sildenafil Citrate 20 Mg Tablet) 20 mg PO TID [facility] Last Admin: 04/24/22 10:11 Dose: 20 mg Documented By: LUCILA Sitagliptin Phosphate (Sitagliptin Phosphate 100 Mg Tablet) 100 mg PO DAILY [facility] Last Admin: 04/24/22 10:09 Dose: 100 mg Documented By: LUCILA Sodium Chloride (0.9 % Sodium Chloride Flush 3 Ml Syringe) 3 ml IVFLUSH QSHIFT [facility] Last Admin: 04/24/22 08:33 Dose: Not Given Documented By: LUCILA Non-Admin Reason: No Access Labs CBC & Chem 7: 04/23/22 07:52 04/23/22 07:52 Labs: Laboratory Results - last 24 hr 04/23/22 04/23/22 15:22 19:45 POC Glucose 155 H 190 H Assessment and Plan (1) Pulmonary hypertension: Status: Acute (2) Schizo affective schizophrenia: Status: Acute Plan 61-year-old male with a past medical history of schizophrenia, CHF, asthma/COPD, diabetes, hyperlipidemia presented from the [facility] with a chief complaint of acute hypoxia. Noted to have following conditions No new medical issues. Labs WNL No further episodes of elopement, continue sitter, Camera in room Acute hypoxic respiratory failure on presentation suspected d/t COPD/asthma/CHF. Resolved Acute asthma/COPD, chronic intermittent No acute symptoms, continue bronchodilator, Patient has no formal diagnosis. Patient is supposed to be following up with pulmonology as outpatient. He had similar presentation in December 2021. Pulmonary HTN Asymptomatic, continue Viagra, outpatient follow up Heart failure with preserved ejection fraction EF 55 to 60,no acute exacerbation, continue oral Lasix 40 bid Diabetes/hyperglycemia blood sugars in acceptable range continue lantus, SSI, metformin and Sitagliptin schizoaffective disorder Continue home Depakote, haloperidol DVT prophylaxis: Lovenox Code status: Full code. Confirmed with the patient's guardian [facility] proxy invoked. Lacks capacity for medical decision, awaiting permanent placement Need for inpatient : awaiting placement attending - dr. Pride Quality Stroke Does the patient have a stroke diagnosis?: No VTE Prior VTE?: No VTE Risk Level:: Medical - moderate - high VTE Device Contraindication: Treatment Not Indicated VTE Drug Contraindication: N/A - Med Ordered
--- NOTE | 2022-04-24 14:59 | MHC.CM.PN ---
[facility] REVIEWED NO BED OFFERS, SN[facility] BED SEARCH EXPANDED TO CT
[2022-04-24 16:00] VITALS: BP 91/73; PULSE 71; RESP 16; TEMP 36.6; O2SAT 96
[2022-04-24 17:06] LABS: Glucose, Whole Blood 132 mg/dL (60-115)
[2022-04-24] MEDS: Divalproex Sodium ER 250 MG TAB.ER.24H PO (18:00)
[2022-04-24 20:36] LABS: Glucose, Whole Blood 185 mg/dL (60-115)
[2022-04-24] MEDS: Insulin Glargine,Hum.rec.anlog 100 UNIT/ML 10 ML VIAL 10 UNIT SUBCUT (21:50)
[2022-04-24] MEDS: Melatonin 3 MG TABLET 6 MG PO (21:50)
--- NOTE | 2022-04-25 08:15 | HO.PM.IMPN ---
Subjective Subjective Date of Service: 04/25/22 Interval History: Follow up for placement no overnight events No specific complaints this morning Review of Systems Review of Systems: Yes all other systems are reviewed and are negative Constitutional Constitutional: Denies chills and Denies fever(s) Cardiovascular Cardiovascular: Denies chest pain and Denies dyspnea Respiratory Respiratory: Denies cough and Denies dyspnea Physical Exam Vital Signs: Vital Signs: Last Vital Signs Temp 97.8 F 04/24/22 16:00 Pulse 71 04/24/22 16:00 Resp 16 04/24/22 16:00 BP 91/73 04/24/22 16:00 Pulse Ox 96 04/24/22 16:00 O2 Del Method 04/24/22 16:00 O2 Flow Rate 2 02/16/22 07:18 FiO2 94 02/13/22 15:38 BMI result Body Mass Index 21.8 Appearing in no acute distress lung sounds are clear to auscultation neuro patient is alert Objective Data Active Medications Acetaminophen (Acetaminophen 325 Mg Tablet) 650 mg PO Q6H PRN PRN Reason: Pain, Mild (Pain Scale 1-3) Atorvastatin Calcium (Atorvastatin Calcium 40 Mg Tablet) 40 mg PO DAILY [facility] Last Admin: 04/24/22 10:09 Dose: 40 mg Documented By: LUCILA Dextrose (Dextrose 50 % 25 Gm/50 Ml Syringe) 25 gm IVPUSH Q15M PRN; Protocol PRN Reason: per Hypoglycemia Standing Ord. Divalproex Sodium (Divalproex Sodium Er 250 Mg Tab.Er.24h) 250 mg PO DAILY@1700 [facility] Last Admin: 04/24/22 18:00 Dose: 250 mg Documented By: LUCILA Divalproex Sodium (Divalproex Sodium Er 500 Mg Tab.Er.24h) 500 mg PO DAILY [facility] Last Admin: 04/24/22 10:09 Dose: 500 mg Documented By: LUCILA Ferrous Sulfate (Ferrous Sulfate 324 Mg Tablet.) 324 mg PO BID [facility] Last Admin: 04/24/22 21:50 Dose: 324 mg Documented By: EMELINA Fluticasone Propionate (Fluticasone Propionate Nasal 16 Gm [place]) 1 spray NOSTRIL-B BID [facility] Last Admin: 04/24/22 21:50 Dose: Not Given Documented By: EMELINA Non-Admin Reason: Patient Refused Furosemide (Furosemide 40 Mg Tablet) 40 mg PO BID@0900,1800 [facility]; Protocol Last Admin: 04/24/22 18:00 Dose: 40 mg Documented By: LUCILA Glucose (Glucose Gel 15 Gm Gel..Gram.) 15 gm PO Q15M PRN; Protocol PRN Reason: per Hypoglycemia Standing Ord. Haloperidol (Haloperidol 5 Mg Tablet) 10 mg PO BID [facility] Last Admin: 04/24/22 21:50 Dose: 10 mg Documented By: EMELINA Insulin Glargine (Insulin Glargine,Hum.Rec.Anlog 100 Unit/Ml 10 Ml Vial) 10 unit SUBCUT BEDTIME [facility] Last Admin: 04/24/22 21:50 Dose: 10 unit Documented By: EMELINA Insulin Human Lispro (Insulin Lispro 100 Unit/Ml 3 Ml Vial) 0 unit SUBCUT QIDACHS [facility]; Protocol Last Admin: 04/25/22 08:07 Dose: Not Given Documented By: LUCILA Non-Admin Reason: No Insulin Coverage Comments: patient refused POC Melatonin (Melatonin 3 Mg Tablet) 6 mg PO BEDTIME PRN PRN Reason: Insomnia Last Admin: 04/24/22 21:50 Dose: 6 mg Documented By: EMELINA Metformin HCl (Metformin Hcl 500 Mg Tablet) 500 mg PO BIDWM [facility] Last Admin: 04/24/22 18:00 Dose: 500 mg Documented By: LUCILA Neomycin/Polymyxin/Hydrocortisone (Neomycin/Polymyxin/Hc Otic Melanie 10 Ml Drpbtl) 3 drop EAR-RIGHT QID [facility] Last Admin: 04/24/22 21:50 Dose: Not Given Documented By: EMELINA Non-Admin Reason: Patient Refused Olanzapine (Olanzapine Odt 10 Mg Tab.Rapdis) 5 mg TRANSLINGU BID PRN PRN Reason: agitation, psychosis Last Admin: 03/15/22 19:48 Dose: 5 mg Documented By: GENIE Omeprazole (Omeprazole 20 Mg Capsule.) 20 mg PO DAILY@0630 [facility] Last Admin: 04/25/22 05:15 Dose: Not Given Documented By: EMELINA Non-Admin Reason: Patient Refused Senna (Sennosides 8.6 Mg Tablet) 17.2 mg PO BEDTIME PRN PRN Reason: Constipation Sildenafil Citrate (Sildenafil Citrate 20 Mg Tablet) 20 mg PO TID [facility] Last Admin: 04/24/22 21:50 Dose: 20 mg Documented By: EMELINA Sitagliptin Phosphate (Sitagliptin Phosphate 100 Mg Tablet) 100 mg PO DAILY [facility] Last Admin: 04/24/22 10:09 Dose: 100 mg Documented By: LUCILA Sodium Chloride (0.9 % Sodium Chloride Flush 3 Ml Syringe) 3 ml IVFLUSH QSHIFT [facility] Last Admin: 04/25/22 08:08 Dose: Not Given Documented By: LUCILA Non-Admin Reason: No Access Labs CBC & Chem 7: 04/23/22 07:52 04/23/22 07:52 Labs: Laboratory Results - last 24 hr 04/24/22 04/24/22 16:52 20:32 POC Glucose 132 H 185 H Assessment and Plan (1) Pulmonary hypertension: Status: Acute (2) Schizo affective schizophrenia: Status: Acute Plan 61-year-old male with a past medical history of schizophrenia, CHF, asthma/COPD, diabetes, hyperlipidemia [facility] with a chief complaint of acute hypoxia. Noted to have following conditions No new medical issues. No further episodes of elopement, continue sitter, Camera in room Acute hypoxic respiratory failure on presentation suspected d/t COPD/asthma/CHF. Resolved Acute asthma/COPD, chronic intermittent No acute symptoms, continue bronchodilator, Patient has no formal diagnosis. Patient is supposed to be following up with pulmonology as outpatient. He had similar presentation in December 2021. Pulmonary HTN Asymptomatic, continue Viagra, outpatient follow up Heart failure with preserved ejection fraction EF 55 to 60,no acute exacerbation, continue oral Lasix 40 bid Diabetes/hyperglycemia blood sugars in acceptable range continue lantus, SSI, metformin and Sitagliptin schizoaffective disorder Continue home Depakote, haloperidol DVT prophylaxis: Lovenox Code status: Full code. Confirmed with the patient's guardian [facility] proxy invoked. Lacks capacity for medical decision, awaiting permanent placement Need for inpatient : awaiting placement attending - dr. Pride Quality Stroke Does the patient have a stroke diagnosis?: No VTE Prior VTE?: No VTE Risk Level:: Medical - moderate - high VTE Device Contraindication: Treatment Not Indicated VTE Drug Contraindication: N/A - Med Ordered
[2022-04-25] MEDS: metFORMIN HCl 500 MG TABLET PO ×2 (09:57→16:33)
[2022-04-25] MEDS: Divalproex Sodium ER 500 MG TAB.ER.24H PO (09:57)
[2022-04-25] MEDS: Atorvastatin Calcium 40 MG TABLET PO (09:57)
[2022-04-25] MEDS: SITagliptin Phosphate 100 MG TABLET PO (09:57)
[2022-04-25] MEDS: Furosemide 40 MG TABLET PO ×2 (09:57→17:44)
[2022-04-25] MEDS: Ferrous Sulfate 324 MG TABLET.DR PO ×2 (09:57→20:56)
[2022-04-25] MEDS: Sildenafil Citrate 20 MG TABLET PO ×3 (09:57→20:56)
[2022-04-25] MEDS: HaloperidoL 5 MG TABLET 10 MG PO ×2 (09:57→20:56)
[2022-04-25 15:36] VITALS: BP 93/61; PULSE 75; RESP 16; TEMP 36.3; O2SAT 97
[2022-04-25 15:58] LABS: Glucose, Whole Blood 192 mg/dL (60-115)
[2022-04-25] MEDS: Divalproex Sodium ER 250 MG TAB.ER.24H PO (16:33)
[2022-04-25 20:24] LABS: Glucose, Whole Blood 173 mg/dL (60-115)
[2022-04-25] MEDS: Insulin Glargine,Hum.rec.anlog 100 UNIT/ML 10 ML VIAL 10 UNIT SUBCUT (20:56)
[2022-04-25] MEDS: Insulin Lispro 100 UNIT/ML 3 ML VIAL SUBCUT (20:57)
[2022-04-25] MEDS: NeoMYCIN/Polymyxin/HC Otic Sus 10 ML DRPBTL 3 DROP EAR-RIGHT (21:24)
[2022-04-26 08:00] VITALS: BP 102/68; PULSE 68; RESP 18; TEMP 36.3; O2SAT 95
[2022-04-26] MEDS: Ferrous Sulfate 324 MG TABLET.DR PO ×2 (09:56→19:59)
[2022-04-26] MEDS: Atorvastatin Calcium 40 MG TABLET PO (09:56)
[2022-04-26] MEDS: Divalproex Sodium ER 500 MG TAB.ER.24H PO (09:56)
[2022-04-26] MEDS: HaloperidoL 5 MG TABLET 10 MG PO ×2 (09:56→19:59)
[2022-04-26] MEDS: Furosemide 40 MG TABLET PO (09:56)
[2022-04-26] MEDS: metFORMIN HCl 500 MG TABLET PO (09:56)
[2022-04-26 12:14] LABS: Glucose, Whole Blood 116 mg/dL (60-115)
--- NOTE | 2022-04-26 15:55 | P.PNIM_ITS ---
Subjective Subjective Date of Service: 04/26/22 Interval History: Seen and examined this morning Follow-up for placement No overnight events No specific complaints this morning Denies chest pain, shortness of breath, abdominal pain. Review of Systems Review of Systems: Yes all other systems are reviewed and are negative Constitutional Constitutional: Denies chills and Denies fever(s) Cardiovascular Cardiovascular: Denies chest pain, Denies palpitations and Denies dyspnea Respiratory Respiratory: Denies cough and Denies dyspnea Endocrine Endocrine: Denies palpitations Physical Exam Vital Signs: Vital Signs: Last Vital Signs Temp 97.3 F 04/26/22 08:00 Pulse 68 04/26/22 08:00 Resp 18 04/26/22 08:00 BP 102/68 04/26/22 08:00 Pulse Ox 95 04/26/22 08:00 O2 Del Method 04/26/22 08:00 O2 Flow Rate 2 02/16/22 07:18 FiO2 94 02/13/22 15:38 BMI result Body Mass Index 21.8 Const: General: comfortable, no acute distress, alert and awake Nutritional Appearance: average body habitus Resp: Effort & Inspection: normal respiratory effort and able to speak in complete sentences Cardio: Rate: regular rate Heart sounds: S1 normal heart sound present and S2 normal heart sound present GI: Inspection: No distended Neuro: Other: grossly nonfocal Extrem: Other: moving all 4 extremities spontaneously General: Yes no pedal edema Psych: Other: flat affect Objective Data Active Medications Acetaminophen (Acetaminophen 325 Mg Tablet) 650 mg PO Q6H PRN PRN Reason: Pain, Mild (Pain Scale 1-3) Atorvastatin Calcium (Atorvastatin Calcium 40 Mg Tablet) 40 mg PO DAILY [facility] Last Admin: 04/26/22 09:56 Dose: 40 mg Documented By: MARK Dextrose (Dextrose 50 % 25 Gm/50 Ml Syringe) 25 gm IVPUSH Q15M PRN; Protocol PRN Reason: per Hypoglycemia Standing Ord. Divalproex Sodium (Divalproex Sodium Er 250 Mg Tab.Er.24h) 250 mg PO DAILY@1700 [facility] Last Admin: 04/25/22 16:33 Dose: 250 mg Documented By: LUCILA Divalproex Sodium (Divalproex Sodium Er 500 Mg Tab.Er.24h) 500 mg PO DAILY [facility] Last Admin: 04/26/22 09:56 Dose: 500 mg Documented By: MARK Ferrous Sulfate (Ferrous Sulfate 324 Mg Tablet.Dr) 324 mg PO BID [facility] Last Admin: 04/26/22 09:56 Dose: 324 mg Documented By: MARK Fluticasone Propionate (Fluticasone Propionate Nasal 16 Gm [place]) 1 spray NOSTRIL-B BID [facility] Last Admin: 04/26/22 09:59 Dose: Not Given Documented By: MARK Non-Admin Reason: Patient Refused Furosemide (Furosemide 40 Mg Tablet) 40 mg PO BID@0900,1800 [facility]; Protocol Last Admin: 04/26/22 09:56 Dose: 40 mg Documented By: MARK Glucose (Glucose Gel 15 Gm Gel..Gram.) 15 gm PO Q15M PRN; Protocol PRN Reason: per Hypoglycemia Standing Ord. Haloperidol (Haloperidol 5 Mg Tablet) 10 mg PO BID [facility] Last Admin: 04/26/22 09:56 Dose: 10 mg Documented By: MARK Insulin Glargine (Insulin Glargine,Hum.Rec.Anlog 100 Unit/Ml 10 Ml Vial) 10 unit SUBCUT BEDTIME [facility] Last Admin: 04/25/22 20:56 Dose: 10 unit Documented By: TAY Insulin Human Lispro (Insulin Lispro 100 Unit/Ml 3 Ml Vial) 0 unit SUBCUT QIDACHS [facility]; Protocol Last Admin: 04/26/22 13:07 Dose: Not Given Documented By: MARK Non-Admin Reason: No Insulin Coverage Melatonin (Melatonin 3 Mg Tablet) 6 mg PO BEDTIME PRN PRN Reason: Insomnia Last Admin: 04/24/22 21:50 Dose: 6 mg Documented By: EMELINA Metformin HCl (Metformin Hcl 500 Mg Tablet) 500 mg PO BIDWM [facility] Last Admin: 04/26/22 09:56 Dose: 500 mg Documented By: MARK Neomycin/Polymyxin/Hydrocortisone (Neomycin/Polymyxin/Hc Otic Melanie 10 Ml Drpbtl) 3 drop EAR-RIGHT QID [facility] Last Admin: 04/26/22 13:07 Dose: Not Given Documented By: MARK Non-Admin Reason: Patient Refused Olanzapine (Olanzapine Odt 10 Mg Tab.Rapdis) 5 mg TRANSLINGU BID PRN PRN Reason: agitation, psychosis Last Admin: 03/15/22 19:48 Dose: 5 mg Documented By: GENIE Omeprazole (Omeprazole 20 Mg Capsule.) 20 mg PO DAILY@0630 [facility] Last Admin: 04/26/22 05:51 Dose: Not Given Documented By: TAY Non-Admin Reason: Patient Refused Senna (Sennosides 8.6 Mg Tablet) 17.2 mg PO BEDTIME PRN PRN Reason: Constipation Sildenafil Citrate (Sildenafil Citrate 20 Mg Tablet) 20 mg PO TID [facility] Last Admin: 04/26/22 10:00 Dose: Not Given Documented By: MARK Non-Admin Reason: Patient Refused Sitagliptin Phosphate (Sitagliptin Phosphate 100 Mg Tablet) 100 mg PO DAILY [facility] Last Admin: 04/26/22 10:00 Dose: Not Given Documented By: MARK Non-Admin Reason: Patient Refused Sodium Chloride (0.9 % Sodium Chloride Flush 3 Ml Syringe) 3 ml IVFLUSH QSHIFT [facility] Last Admin: 04/26/22 15:04 Dose: Not Given Documented By: MARK Non-Admin Reason: IV Running Labs CBC & Chem 7: 04/23/22 07:52 04/23/22 07:52 Labs: Laboratory Results - last 24 hr 04/25/22 04/25/22 04/26/22 15:39 20:05 12:10 POC Glucose 192 H 173 H 116 H Assessment and Plan (1) Pulmonary hypertension: Status: Acute Plan 61-year-old male with a past medical history of schizophrenia, CHF, asthma/COPD, diabetes, hyperlipidemia presented from the [facility] with a chief complaint of acute hypoxia. Noted to have following conditions No new medical issues. No further episodes of elopement, continue sitter, Camera in room Acute hypoxic respiratory failure on presentation suspected d/t COPD/asthma/CHF. Resolved Acute asthma/COPD, chronic intermittent No acute symptoms, continue bronchodilator, Patient has no formal diagnosis. Patient is supposed to be following up with pulmonology as outpatient. He had similar presentation in December 2021. Pulmonary HTN Asymptomatic, continue Viagra, outpatient follow up Heart failure with preserved ejection fraction EF 55 to 60,no acute exacerbation, continue oral Lasix 40 bid Diabetes/hyperglycemia blood sugars in acceptable range continue lantus, SSI, metformin and Sitagliptin schizoaffective disorder Continue home Depakote, haloperidol DVT prophylaxis: Lovenox Code status: Full code. Confirmed with the patient's guardian [facility] proxy invoked. Lacks capacity for medical decision, awaiting permanent placement Need for inpatient : awaiting placement attending - dr. Pride Quality Stroke Does the patient have a stroke diagnosis?: No VTE Prior VTE?: No VTE Risk Level:: Medical - moderate - high VTE Device Contraindication: Treatment Not Indicated VTE Drug Contraindication: N/A - Med Ordered
[2022-04-26 16:25] VITALS: BP 96/55; PULSE 77; RESP 18; TEMP 36.1; O2SAT 94
[2022-04-26 16:36] LABS: Glucose, Whole Blood 129 mg/dL (60-115)
--- NOTE | 2022-04-26 17:03 | PC.NURSE ---
pt refused afternoon medications. Waleska Hernandez made aware.
[2022-04-26] MEDS: Insulin Glargine,Hum.rec.anlog 100 UNIT/ML 10 ML VIAL 10 UNIT SUBCUT (19:58)
[2022-04-26] MEDS: Sildenafil Citrate 20 MG TABLET PO (19:59)
[2022-04-26 20:08] LABS: Glucose, Whole Blood 187 mg/dL (60-115)
[2022-04-26 23:37] VITALS: BP 95/56; PULSE 88; RESP 16; TEMP 36.4; O2SAT 96
[2022-04-27 08:00] VITALS: BP 101/64; PULSE 90; RESP 18; TEMP 36.6; O2SAT 96
[2022-04-27 08:55] LABS: Glucose, Whole Blood 126 mg/dL (60-115)
[2022-04-27] MEDS: Atorvastatin Calcium 40 MG TABLET PO (10:30)
[2022-04-27] MEDS: Furosemide 40 MG TABLET PO ×2 (10:30→17:00)
[2022-04-27] MEDS: metFORMIN HCl 500 MG TABLET PO ×2 (10:30→17:00)
[2022-04-27] MEDS: Ferrous Sulfate 324 MG TABLET.DR PO ×2 (10:30→20:37)
[2022-04-27] MEDS: SITagliptin Phosphate 100 MG TABLET PO (10:30)
[2022-04-27] MEDS: HaloperidoL 5 MG TABLET 10 MG PO ×2 (10:30→20:37)
[2022-04-27] MEDS: Sildenafil Citrate 20 MG TABLET PO ×3 (10:30→20:37)
[2022-04-27] MEDS: Divalproex Sodium ER 500 MG TAB.ER.24H PO (10:30)
[2022-04-27 11:46] VITALS: BP 102/72; PULSE 68; RESP 18; TEMP 36.3; O2SAT 97
[2022-04-27 11:46] LABS: Glucose, Whole Blood 123 mg/dL (60-115)
--- NOTE | 2022-04-27 14:03 | MHC.CM.PN ---
PT STILL AWAITING LTC PLACEMENT REFERRALS UP TO DATE STILL NO BED OFFERS CM WILL CONTINUE TO PURSUE PLACEMENT
--- NOTE | 2022-04-27 14:19 | P.PNIM_ITS ---
Subjective Subjective Date of Service: 04/27/22 Interval History: Seen and examined this morning Follow-up for placement No overnight events No specific complaints this morning Observed resting in bed comfortably Review of Systems Review of Systems: Yes all other systems are reviewed and are negative Constitutional Constitutional: Reports chills and Denies fever(s) Cardiovascular Cardiovascular: Denies chest pain and Denies dyspnea Respiratory Respiratory: Denies dyspnea Gastrointestinal Gastrointestinal: Denies abdominal pain Physical Exam Vital Signs: Vital Signs: Last Vital Signs Temp 97.3 F 04/27/22 11:46 Pulse 68 04/27/22 11:46 Resp 18 04/27/22 11:46 BP 102/72 04/27/22 11:46 Pulse Ox 97 04/27/22 11:46 O2 Del Method 04/27/22 11:46 O2 Flow Rate 2 02/16/22 07:18 FiO2 94 02/13/22 15:38 BMI result Body Mass Index 21.8 Const: General: comfortable, no acute distress, alert and awake Nutritional Appearance: average body habitus Resp: Effort & Inspection: normal respiratory effort and able to speak in complete sentences Cardio: Rate: regular rate Heart sounds: S1 normal heart sound present and S2 normal heart sound present GI: Inspection: No distended Palpation (GI): Soft to palpation and nontender Neuro: Other: grossly nonfocal General: no focal motor deficits Extrem: Other: moving all 4 extremities spontaneously General: Yes no pedal edema Psych: Other: flat affect Objective Data Active Medications Acetaminophen (Acetaminophen 325 Mg Tablet) 650 mg PO Q6H PRN PRN Reason: Pain, Mild (Pain Scale 1-3) Atorvastatin Calcium (Atorvastatin Calcium 40 Mg Tablet) 40 mg PO DAILY [facility] Last Admin: 04/27/22 10:30 Dose: 40 mg Documented By: MARK Dextrose (Dextrose 50 % 25 Gm/50 Ml Syringe) 25 gm IVPUSH Q15M PRN; Protocol PRN Reason: per Hypoglycemia Standing Ord. Divalproex Sodium (Divalproex Sodium Er 250 Mg Tab.Er.24h) 250 mg PO DAILY@1700 [facility] Last Admin: 04/26/22 17:35 Dose: Not Given Documented By: MARK Non-Admin Reason: Patient Refused Divalproex Sodium (Divalproex Sodium Er 500 Mg Tab.Er.24h) 500 mg PO DAILY [facility] Last Admin: 04/27/22 10:30 Dose: 500 mg Documented By: MARK Ferrous Sulfate (Ferrous Sulfate 324 Mg Tablet.Dr) 324 mg PO BID [facility] Last Admin: 04/27/22 10:30 Dose: 324 mg Documented By: MARK Fluticasone Propionate (Fluticasone Propionate Nasal 16 Gm [place]) 1 spray NOSTRIL-B BID [facility] Last Admin: 04/27/22 10:33 Dose: Not Given Documented By: MARK Non-Admin Reason: Patient Refused Furosemide (Furosemide 40 Mg Tablet) 40 mg PO BID@0900,1800 [facility]; Protocol Last Admin: 04/27/22 10:30 Dose: 40 mg Documented By: MARK Glucose (Glucose Gel 15 Gm Gel..Gram.) 15 gm PO Q15M PRN; Protocol PRN Reason: per Hypoglycemia Standing Ord. Haloperidol (Haloperidol 5 Mg Tablet) 10 mg PO BID [facility] Last Admin: 04/27/22 10:30 Dose: 10 mg Documented By: MARK Insulin Glargine (Insulin Glargine,Hum.Rec.Anlog 100 Unit/Ml 10 Ml Vial) 10 unit SUBCUT BEDTIME [facility] Last Admin: 04/26/22 19:58 Dose: 10 unit Documented By: SHALA Insulin Human Lispro (Insulin Lispro 100 Unit/Ml 3 Ml Vial) 0 unit SUBCUT QIDACHS [facility]; Protocol Last Admin: 04/27/22 11:50 Dose: Not Given Documented By: MARK Non-Admin Reason: No Insulin Coverage Melatonin (Melatonin 3 Mg Tablet) 6 mg PO BEDTIME PRN PRN Reason: Insomnia Last Admin: 04/24/22 21:50 Dose: 6 mg Documented By: EMELINA Metformin HCl (Metformin Hcl 500 Mg Tablet) 500 mg PO BIDWM [facility] Last Admin: 04/27/22 10:30 Dose: 500 mg Documented By: MARK Neomycin/Polymyxin/Hydrocortisone (Neomycin/Polymyxin/Hc Otic Melanie 10 Ml Drpbtl) 3 drop EAR-RIGHT QID [facility] Last Admin: 04/27/22 12:54 Dose: Not Given Documented By: MARK Non-Admin Reason: Patient Refused Olanzapine (Olanzapine Odt 10 Mg Tab.Rapdis) 5 mg TRANSLINGU BID PRN PRN Reason: agitation, psychosis Last Admin: 03/15/22 19:48 Dose: 5 mg Documented By: GENIE Omeprazole (Omeprazole 20 Mg [place].) 20 mg PO DAILY@0630 [facility] Last Admin: 04/27/22 05:57 Dose: Not Given Documented By: SHALA Non-Admin Reason: Patient Refused Senna (Sennosides 8.6 Mg Tablet) 17.2 mg PO BEDTIME PRN PRN Reason: Constipation Sildenafil Citrate (Sildenafil Citrate 20 Mg Tablet) 20 mg PO TID [facility] Last Admin: 04/27/22 10:30 Dose: 20 mg Documented By: MARK Sitagliptin Phosphate (Sitagliptin Phosphate 100 Mg Tablet) 100 mg PO DAILY [facility] Last Admin: 04/27/22 10:30 Dose: 100 mg Documented By: MARK Sodium Chloride (0.9 % Sodium Chloride Flush 3 Ml Syringe) 3 ml IVFLUSH QSHIFT [facility] Last Admin: 04/27/22 07:28 Dose: Not Given Documented By: MARK Non-Admin Reason: No Access Labs CBC & Chem 7: 04/23/22 07:52 04/23/22 07:52 Labs: Laboratory Results - last 24 hr 04/26/22 04/26/22 04/27/22 16:28 20:04 08:47 POC Glucose 129 H 187 H 126 H 04/27/22 11:36 POC Glucose 123 H Assessment and Plan (1) Pulmonary hypertension: Status: Acute Plan 61-year-old male with a past medical history of schizophrenia, CHF, asthma/COPD, diabetes, hyperlipidemia presented from the skilled nursing with a chief complaint of acute hypoxia. Noted to have following conditions No new medical issues. No further episodes of elopement, continue sitter, Camera in room Acute hypoxic respiratory failure on presentation suspected d/t COPD/asthma/CHF. Resolved Acute asthma/COPD, chronic intermittent No acute symptoms, continue bronchodilator, Patient has no formal diagnosis. Patient is supposed to be following up with pulmonology as outpatient. He had similar presentation in December 2021. Pulmonary HTN Asymptomatic, continue Viagra, outpatient follow up Heart failure with preserved ejection fraction EF 55 to 60,no acute exacerbation, continue oral Lasix 40 bid Diabetes/hyperglycemia blood sugars in acceptable range continue lantus, SSI, metformin and Sitagliptin schizoaffective disorder Continue home Depakote, haloperidol DVT prophylaxis: Lovenox Code status: Full code. Confirmed with the patient's guardian [facility] proxy invoked. Lacks capacity for medical decision, awaiting permanent placement Need for inpatient : awaiting placement attending - dr. Pride Quality Stroke Does the patient have a stroke diagnosis?: No VTE Prior VTE?: No VTE Risk Level:: Medical - moderate - high VTE Device Contraindication: Treatment Not Indicated VTE Drug Contraindication: N/A - Med Ordered
[2022-04-27 16:08] VITALS: BP 95/61; PULSE 69; RESP 18; TEMP 36.2; O2SAT 94
[2022-04-27 16:25] LABS: Glucose, Whole Blood 160 mg/dL (60-115)
[2022-04-27] MEDS: Divalproex Sodium ER 250 MG TAB.ER.24H PO (17:00)
[2022-04-27] MEDS: Insulin Lispro 100 UNIT/ML 3 ML VIAL SUBCUT (17:00)
[2022-04-27 20:22] LABS: Glucose, Whole Blood 147 mg/dL (60-115)
[2022-04-27] MEDS: Insulin Glargine,Hum.rec.anlog 100 UNIT/ML 10 ML VIAL 10 UNIT SUBCUT (20:37)
[2022-04-28 07:27] VITALS: BP 102/62; PULSE 59; RESP 14; TEMP 36.2; O2SAT 94
[2022-04-28 07:36] LABS: Glucose, Whole Blood 144 mg/dL (60-115)
[2022-04-28] MEDS: Atorvastatin Calcium 40 MG TABLET PO (10:32)
[2022-04-28] MEDS: Ferrous Sulfate 324 MG TABLET.DR PO ×2 (10:32→20:15)
[2022-04-28] MEDS: Sildenafil Citrate 20 MG TABLET PO ×3 (10:32→20:15)
[2022-04-28] MEDS: HaloperidoL 5 MG TABLET 10 MG PO ×2 (10:32→20:15)
[2022-04-28] MEDS: Furosemide 40 MG TABLET PO ×2 (10:32→17:23)
[2022-04-28] MEDS: Divalproex Sodium ER 500 MG TAB.ER.24H PO (10:32)
[2022-04-28] MEDS: metFORMIN HCl 500 MG TABLET PO ×2 (10:32→17:23)
[2022-04-28] MEDS: SITagliptin Phosphate 100 MG TABLET PO (10:33)
[2022-04-28 11:24] LABS: Glucose, Whole Blood 210 mg/dL (60-115)
--- NOTE | 2022-04-28 15:11 | P.PNIM_ITS ---
Subjective Subjective Date of Service: 04/28/22 Interval History: Seen and examined this morning Follow-up for placement No overnight events No specific complaints this morning Review of Systems Review of Systems: Yes all other systems are reviewed and are negative Cardiovascular Cardiovascular: Denies chest pain and Denies dyspnea Respiratory Respiratory: Denies dyspnea Gastrointestinal Gastrointestinal: Denies abdominal pain Physical Exam Vital Signs: Vital Signs: Last Vital Signs Temp 97.2 F 04/28/22 07:27 Pulse 59 04/28/22 07:27 Resp 14 04/28/22 07:27 BP 102/62 04/28/22 07:27 Pulse Ox 94 04/28/22 07:27 O2 Del Method 04/28/22 07:27 O2 Flow Rate 2 02/16/22 07:18 FiO2 94 02/13/22 15:38 BMI result Body Mass Index 21.8 Const: General: comfortable, no acute distress, alert and awake Nutritional Appearance: average body habitus Resp: Effort & Inspection: normal respiratory effort and able to speak in complete sentences Cardio: Rate: regular rate Heart sounds: S1 normal heart sound present and S2 normal heart sound present GI: Inspection: No distended Palpation (GI): Soft to palpation and nontender Neuro: Other: grossly nonfocal General: no focal motor deficits Extrem: Other: moving all 4 extremities spontaneously General: Yes no pedal edema Psych: Other: flat affect Objective Data Active Medications Acetaminophen (Acetaminophen 325 Mg Tablet) 650 mg PO Q6H PRN PRN Reason: Pain, Mild (Pain Scale 1-3) Atorvastatin Calcium (Atorvastatin Calcium 40 Mg Tablet) 40 mg PO DAILY REPLACED BY [facility] Last Admin: 04/28/22 10:32 Dose: 40 mg Documented By: DALILA Dextrose (Dextrose 50 % 25 Gm/50 Ml Syringe) 25 gm IVPUSH Q15M PRN; Protocol PRN Reason: per Hypoglycemia Standing Ord. Divalproex Sodium (Divalproex Sodium Er 250 Mg Tab.Er.24h) 250 mg PO DAILY@1700 REPLACED BY [facility] Last Admin: 04/27/22 17:00 Dose: 250 mg Documented By: MARK Divalproex Sodium (Divalproex Sodium Er 500 Mg Tab.Er.24h) 500 mg PO DAILY REPLACED BY [facility] Last Admin: 04/28/22 10:32 Dose: 500 mg Documented By: DALILA Ferrous Sulfate (Ferrous Sulfate 324 Mg Tablet.) 324 mg PO BID REPLACED BY [facility] Last Admin: 04/28/22 10:32 Dose: 324 mg Documented By: DALILA Fluticasone Propionate (Fluticasone Propionate Nasal 16 Gm [place]) 1 spray NOSTRIL-B BID REPLACED BY [facility] Last Admin: 04/28/22 07:32 Dose: Not Given Documented By: DALILA Non-Admin Reason: Patient Refused Furosemide (Furosemide 40 Mg Tablet) 40 mg PO BID@0900,1800 REPLACED BY [facility]; Protocol Last Admin: 04/28/22 10:32 Dose: 40 mg Documented By: DALILA Glucose (Glucose Gel 15 Gm Gel..Gram.) 15 gm PO Q15M PRN; Protocol PRN Reason: per Hypoglycemia Standing Ord. Haloperidol (Haloperidol 5 Mg Tablet) 10 mg PO BID REPLACED BY [facility] Last Admin: 04/28/22 10:32 Dose: 10 mg Documented By: DALILA Insulin Glargine (Insulin Glargine,Hum.Rec.Anlog 100 Unit/Ml 10 Ml Vial) 10 unit SUBCUT BEDTIME REPLACED BY [facility] Last Admin: 04/27/22 20:37 Dose: 10 unit Documented By: DENISE Insulin Human Lispro (Insulin Lispro 100 Unit/Ml 3 Ml Vial) 0 unit SUBCUT QIDACHS REPLACED BY [facility]; Protocol Last Admin: 04/28/22 11:29 Dose: Not Given Documented By: DALILA Non-Admin Reason: Patient Refused Melatonin (Melatonin 3 Mg Tablet) 6 mg PO BEDTIME PRN PRN Reason: Insomnia Last Admin: 04/24/22 21:50 Dose: 6 mg Documented By: EMELINA Metformin HCl (Metformin Hcl 500 Mg Tablet) 500 mg PO BIDWM REPLACED BY [facility] Last Admin: 04/28/22 10:32 Dose: 500 mg Documented By: DALILA Neomycin/Polymyxin/Hydrocortisone (Neomycin/Polymyxin/Hc Otic Melanie 10 Ml Drpbtl) 3 drop EAR-RIGHT QID REPLACED BY [facility] Last Admin: 04/28/22 11:27 Dose: Not Given Documented By: DALILA Non-Admin Reason: Patient Refused Olanzapine (Olanzapine Odt 10 Mg Tab.Rapdis) 5 mg TRANSLINGU BID PRN PRN Reason: agitation, psychosis Last Admin: 03/15/22 19:48 Dose: 5 mg Documented By: GENIE Omeprazole (Omeprazole 20 Mg Capsule.Dr) 20 mg PO DAILY@0630 REPLACED BY [facility] Last Admin: 04/28/22 06:05 Dose: Not Given Documented By: DENISE Non-Admin Reason: Patient Refused Senna (Sennosides 8.6 Mg Tablet) 17.2 mg PO BEDTIME PRN PRN Reason: Constipation Sildenafil Citrate (Sildenafil Citrate 20 Mg Tablet) 20 mg PO TID REPLACED BY [facility] Last Admin: 04/28/22 10:32 Dose: 20 mg Documented By: COTEMA Sitagliptin Phosphate (Sitagliptin Phosphate 100 Mg Tablet) 100 mg PO DAILY REPLACED BY [facility] Last Admin: 04/28/22 10:33 Dose: 100 mg Documented By: COTEMA Sodium Chloride (0.9 % Sodium Chloride Flush 3 Ml Syringe) 3 ml IVFLUSH QSHIFT REPLACED BY [facility] Last Admin: 04/28/22 15:02 Dose: Not Given Documented By: DALILA Non-Admin Reason: No Access Labs CBC & Chem 7: 04/23/22 07:52 04/23/22 07:52 Labs: Laboratory Results - last 24 hr 04/27/22 04/27/22 04/28/22 16:12 19:39 07:29 POC Glucose 160 H 147 H 144 H 04/28/22 11:16 POC Glucose 210 H Assessment and Plan (1) Pulmonary hypertension: Status: Acute Plan 61-year-old male with a past medical history of schizophrenia, CHF, asthma/COPD, diabetes, hyperlipidemia presented [facility] [place] [facility] with a chief complaint of acute hypoxia. Noted to have following conditions No new medical issues. No further episodes of elopement, continue sitter, Camera in room Acute hypoxic respiratory failure on presentation suspected d/t COPD/asthma/CHF. Resolved Acute asthma/COPD, chronic intermittent No acute symptoms, continue bronchodilator, Patient has no formal diagnosis. Patient is supposed to be following up with pulmonology as outpatient. He had similar presentation in December 2021. Pulmonary HTN Asymptomatic, continue Viagra, outpatient follow up Heart failure with preserved ejection fraction EF 55 to 60,no acute exacerbation, continue oral Lasix 40 bid Diabetes/hyperglycemia blood sugars in acceptable range continue lantus, SSI, metformin and Sitagliptin schizoaffective disorder Continue home Depakote, haloperidol DVT prophylaxis: Lovenox Code status: Full code. Confirmed with the patient's guardian [facility] proxy invoked. Lacks capacity for medical decision, awaiting permanent placement Need for inpatient : awaiting placement attending - dr. scott Quality Stroke Does the patient have a stroke diagnosis?: No VTE Prior VTE?: No VTE Risk Level:: Medical - moderate - high VTE Device Contraindication: Treatment Not Indicated VTE Drug Contraindication: N/A - Med Ordered
[2022-04-28 15:30] VITALS: BP 96/63; PULSE 76; RESP 17; TEMP 36.3; O2SAT 96
[2022-04-28 15:52] LABS: Glucose, Whole Blood 154 mg/dL (60-115)
[2022-04-28] MEDS: Divalproex Sodium ER 250 MG TAB.ER.24H PO (17:23)
[2022-04-28 19:43] LABS: Glucose, Whole Blood 153 mg/dL (60-115)
[2022-04-28] MEDS: Insulin Glargine,Hum.rec.anlog 100 UNIT/ML 10 ML VIAL 10 UNIT SUBCUT (20:15)
[2022-04-29 07:23] LABS: Glucose, Whole Blood 126 mg/dL (60-115)
[2022-04-29 07:53] VITALS: BP 101/64; PULSE 64; RESP 17; TEMP 36.7; O2SAT 93
--- NOTE | 2022-04-29 09:43 | P.PNIM_ITS ---
Subjective Subjective Date of Service: 04/29/22 Interval History: Seen and examined this morning Follow-up for placement No overnight events No specific complaints this morning Review of Systems no sob no fever Physical Exam Vital Signs: Vital Signs: Last Vital Signs Temp 98.0 F 04/29/22 07:53 Pulse 64 04/29/22 07:53 Resp 17 04/29/22 07:53 BP 101/64 04/29/22 07:53 Pulse Ox 93 04/29/22 07:53 O2 Del Method 04/29/22 07:53 O2 Flow Rate 2 02/16/22 07:18 FiO2 94 02/13/22 15:38 BMI result Body Mass Index 21.8 Const: Other: General: AO X 2 (self, place), no acute distress Resp: CTA bilateral CVS: S1,S2,RRR GI: +BS, NT, no distention Skin: No rash Neuro: motor grossly intact Psych: flat affect Objective Data Active Medications Acetaminophen (Acetaminophen 325 Mg Tablet) 650 mg PO Q6H PRN PRN Reason: Pain, Mild (Pain Scale 1-3) Atorvastatin Calcium (Atorvastatin Calcium 40 Mg Tablet) 40 mg PO DAILY [facility] Last Admin: 04/28/22 10:32 Dose: 40 mg Documented By: DALILA Dextrose (Dextrose 50 % 25 Gm/50 Ml Syringe) 25 gm IVPUSH Q15M PRN; Protocol PRN Reason: per Hypoglycemia Standing Ord. Divalproex Sodium (Divalproex Sodium Er 250 Mg Tab.Er.24h) 250 mg PO DAILY@1700 [facility] Last Admin: 04/28/22 17:23 Dose: 250 mg Documented By: DALILA Divalproex Sodium (Divalproex Sodium Er 500 Mg Tab.Er.24h) 500 mg PO DAILY [facility] Last Admin: 04/28/22 10:32 Dose: 500 mg Documented By: DALILA Ferrous Sulfate (Ferrous Sulfate 324 Mg Tablet.Dr) 324 mg PO BID [facility] Last Admin: 04/28/22 20:15 Dose: 324 mg Documented By: DENISE Fluticasone Propionate (Fluticasone Propionate Nasal 16 Gm [place]) 1 spray N OSTRIL-B BID [facility] Last Admin: 04/29/22 09:15 Dose: Not Given Documented By: DALILA Non-Admin Reason: Patient Refused Furosemide (Furosemide 40 Mg Tablet) 40 mg PO BID@0900,1800 [facility]; Protocol Last Admin: 04/28/22 17:23 Dose: 40 mg Documented By: DALILA Glucose (Glucose Gel 15 Gm Gel..Gram.) 15 gm PO Q15M PRN; Protocol PRN Reason: per Hypoglycemia Standing Ord. Haloperidol (Haloperidol 5 Mg Tablet) 10 mg PO BID [facility] Last Admin: 04/28/22 20:15 Dose: 10 mg Documented By: DENISE Insulin Glargine (Insulin Glargine,Hum.Rec.Anlog 100 Unit/Ml 10 Ml Vial) 10 unit SUBCUT BEDTIME [facility] Last Admin: 04/28/22 20:15 Dose: 10 unit Documented By: DENISE Insulin Human Lispro (Insulin Lispro 100 Unit/Ml 3 Ml Vial) 0 unit SUBCUT QIDACHS [facility]; Protocol Last Admin: 04/29/22 07:29 Dose: Not Given Documented By: DALILA Non-Admin Reason: No Insulin Coverage Melatonin (Melatonin 3 Mg Tablet) 6 mg PO BEDTIME PRN PRN Reason: Insomnia Last Admin: 04/24/22 21:50 Dose: 6 mg Documented By: EMELINA Metformin HCl (Metformin Hcl 500 Mg Tablet) 500 mg PO BIDWM [facility] Last Admin: 04/28/22 17:23 Dose: 500 mg Documented By: DALILA Neomycin/Polymyxin/Hydrocortisone (Neomycin/Polymyxin/Hc Otic Melanie 10 Ml Drpbtl) 3 drop EAR-RIGHT QID [facility] Last Admin: 04/29/22 09:15 Dose: Not Given Documented By: DALILA Non-Admin Reason: Patient Refused Olanzapine (Olanzapine Odt 10 Mg Tab.Rapdis) 5 mg TRANSLINGU BID PRN PRN Reason: agitation, psychosis Last Admin: 03/15/22 19:48 Dose: 5 mg Documented By: GENIE Omeprazole (Omeprazole 20 Mg Capsule.Dr) 20 mg PO DAILY@0630 [facility] Last Admin: 04/29/22 05:51 Dose: Not Given Documented By: DENISE Non-Admin Reason: Patient Asleep Senna (Sennosides 8.6 Mg Tablet) 17.2 mg PO BEDTIME PRN PRN Reason: Constipation Sildenafil Citrate (Sildenafil Citrate 20 Mg Tablet) 20 mg PO TID [facility] Last Admin: 04/28/22 20:15 Dose: 20 mg Documented By: DENISE Sitagliptin Phosphate (Sitagliptin Phosphate 100 Mg Tablet) 100 mg PO DAILY [facility] Last Admin: 04/28/22 10:33 Dose: 100 mg Documented By: DALILA Sodium Chloride (0.9 % Sodium Chloride Flush 3 Ml Syringe) 3 ml IVFLUSH QSHIFT [facility] Last Admin: 04/29/22 07:29 Dose: Not Given Documented By: DALILA Non-Admin Reason: No Access Labs CBC & Chem 7: 04/23/22 07:52 04/23/22 07:52 Labs: Laboratory Results - last 24 hr 04/28/22 04/28/22 04/28/22 11:16 15:49 19:38 POC Glucose 210 H 154 H 153 H 04/29/22 07:18 POC Glucose 126 H Assessment and Plan (1) Pulmonary hypertension: Status: Acute Plan 61-year-old male with a past medical history of schizophrenia, CHF, asthma/COPD, diabetes, hyperlipidemia presented [facility] with a chief complaint of acute hypoxia. Noted to have following conditions No new medical issues. No further episodes of elopement, continue close observation, Camera in room Acute hypoxic respiratory failure on presentation suspected d/t COPD/asthma/CHF. Resolved Acute asthma/COPD, chronic intermittent No acute symptoms, continue bronchodilator, Patient has no formal diagnosis. Patient is supposed to be following up with pulmonology as outpatient. He had similar presentation in December 2021. Pulmonary HTN Asymptomatic, continue Viagra, outpatient follow up Heart failure with preserved ejection fraction EF 55 to 60,no acute exacerbation, continue oral Lasix 40 bid Diabetes/hyperglycemia blood sugars in acceptable range continue lantus, SSI, metformin and Sitagliptin schizoaffective disorder Continue home Depakote, haloperidol DVT prophylaxis: Lovenox Code status: Full code. Confirmed with the patient's guardian [facility] proxy invoked. Lacks capacity for medical decision, awaiting permanent placement Need for inpatient : awaiting placement Quality Stroke Does the patient have a stroke diagnosis?: No VTE Prior VTE?: No VTE Risk Level:: Medical - moderate - high VTE Device Contraindication: Treatment Not Indicated VTE Drug Contraindication: N/A - Med Ordered
[2022-04-29] MEDS: HaloperidoL 5 MG TABLET 10 MG PO ×2 (10:14→20:11)
[2022-04-29] MEDS: metFORMIN HCl 500 MG TABLET PO ×2 (10:14→17:02)
[2022-04-29] MEDS: SITagliptin Phosphate 100 MG TABLET PO (10:14)
[2022-04-29] MEDS: Ferrous Sulfate 324 MG TABLET.DR PO (10:14)
[2022-04-29] MEDS: Sildenafil Citrate 20 MG TABLET PO ×2 (10:14→17:02)
[2022-04-29] MEDS: Divalproex Sodium ER 500 MG TAB.ER.24H PO (10:14)
[2022-04-29] MEDS: Atorvastatin Calcium 40 MG TABLET PO (10:14)
[2022-04-29] MEDS: Furosemide 40 MG TABLET PO ×2 (10:14→17:02)
[2022-04-29 11:13] LABS: Glucose, Whole Blood 128 mg/dL (60-115)
[2022-04-29 15:06] VITALS: BP 105/66; PULSE 80; RESP 16; TEMP 36.2; O2SAT 95
[2022-04-29 15:17] LABS: Glucose, Whole Blood 167 mg/dL (60-115)
[2022-04-29] MEDS: Divalproex Sodium ER 250 MG TAB.ER.24H PO (17:02)
[2022-04-29 20:02] LABS: Glucose, Whole Blood 187 mg/dL (60-115)
[2022-04-29] MEDS: Insulin Glargine,Hum.rec.anlog 100 UNIT/ML 10 ML VIAL 10 UNIT SUBCUT (20:09)
[2022-04-30 07:12] VITALS: BP 102/65; PULSE 68; RESP 18; TEMP 36.5; O2SAT 95
[2022-04-30 07:31] LABS: Glucose, Whole Blood 140 mg/dL (60-115)
--- NOTE | 2022-04-30 10:45 | HO.PM.IMPN ---
Subjective Subjective Date of Service: 04/30/22 Interval History: Seen and examined this morning Follow-up for placement No overnight events No specific complaints this morning Review of Systems no sob no fever Physical Exam Vital Signs: Vital Signs: Last Vital Signs Temp 97.7 F 04/30/22 07:12 Pulse 68 04/30/22 07:12 Resp 18 04/30/22 07:12 BP 102/65 04/30/22 07:12 Pulse Ox 95 04/30/22 07:12 O2 Del Method 04/30/22 07:12 O2 Flow Rate 2 02/16/22 07:18 FiO2 94 02/13/22 15:38 BMI result Body Mass Index 21.8 Const: Other: General: AO X 2 (self, place), no acute distress Resp: CTA bilateral CVS: S1,S2,RRR GI: +BS, NT, no distention Skin: No rash Neuro: motor grossly intact Psych: flat affect Objective Data Active Medications Acetaminophen (Acetaminophen 325 Mg Tablet) 650 mg PO Q6H PRN PRN Reason: Pain, Mild (Pain Scale 1-3) Atorvastatin Calcium (Atorvastatin Calcium 40 Mg Tablet) 40 mg PO DAILY [facility] Last Admin: 04/29/22 10:14 Dose: 40 mg Documented By: DALILA Dextrose (Dextrose 50 % 25 Gm/50 Ml Syringe) 25 gm IVPUSH Q15M PRN; Protocol PRN Reason: per Hypoglycemia Standing Ord. Divalproex Sodium (Divalproex Sodium Er 250 Mg Tab.Er.24h) 250 mg PO DAILY@1700 [facility] Last Admin: 04/29/22 17:02 Dose: 250 mg Documented By: DALILA Divalproex Sodium (Divalproex Sodium Er 500 Mg Tab.Er.24h) 500 mg PO DAILY [facility] Last Admin: 04/29/22 10:14 Dose: 500 mg Documented By: DALILA Ferrous Sulfate (Ferrous Sulfate 324 Mg Tablet.Dr) 324 mg PO BID [facility] Last Admin: 04/29/22 20:14 Dose: Not Given Documented By: SHALA Non-Admin Reason: Patient Refused Fluticasone Propionate (Fluticasone Propionate Nasal 16 Gm [place]) 1 spray NOSTRIL-B BID [facility] Last Admin: 04/30/22 09:33 Dose: Not Given Documented By: DALILA Non-Admin Reason: Patient Refused Furosemide (Furosemide 40 Mg Tablet) 40 mg PO BID@0900,1800 [facility]; Protocol Last Admin: 04/29/22 17:02 Dose: 40 mg Documented By: DALILA Glucose (Glucose Gel 15 Gm Gel..Gram.) 15 gm PO Q15M PRN; Protocol PRN Reason: per Hypoglycemia Standing Ord. Haloperidol (Haloperidol 5 Mg Tablet) 10 mg PO BID [facility] Last Admin: 04/29/22 20:11 Dose: 10 mg Documented By: SHALA Insulin Glargine (Insulin Glargine,Hum.Rec.Anlog 100 Unit/Ml 10 Ml Vial) 10 unit SUBCUT BEDTIME [facility] Last Admin: 04/29/22 20:09 Dose: 10 unit Documented By: SHALA Insulin Human Lispro (Insulin Lispro 100 Unit/Ml 3 Ml Vial) 0 unit SUBCUT QIDACHS [facility]; Protocol Last Admin: 04/30/22 07:39 Dose: Not Given Documented By: DALILA Non-Admin Reason: No Insulin Coverage Melatonin (Melatonin 3 Mg Tablet) 6 mg PO BEDTIME PRN PRN Reason: Insomnia Last Admin: 04/24/22 21:50 Dose: 6 mg Documented By: EMELINA Metformin HCl (Metformin Hcl 500 Mg Tablet) 500 mg PO BIDWM [facility] Last Admin: 04/29/22 17:02 Dose: 500 mg Documented By: DALILA Neomycin/Polymyxin/Hydrocortisone (Neomycin/Polymyxin/Hc Otic Melanie 10 Ml Drpbtl) 3 drop EAR-RIGHT QID [facility] Last Admin: 04/30/22 09:33 Dose: Not Given Documented By: DALILA Non-Admin Reason: Patient Refused Olanzapine (Olanzapine Odt 10 Mg Tab.Rapdis) 5 mg TRANSLINGU BID PRN PRN Reason: agitation, psychosis Last Admin: 03/15/22 19:48 Dose: 5 mg Documented By: KEQC Omeprazole (Omeprazole 20 Mg Capsule.Dr) 20 mg PO DAILY@0630 [facility] Last Admin: 04/30/22 06:23 Dose: Not Given Documented By: NICRISM Non-Admin Reason: Patient Refused Senna (Sennosides 8.6 Mg Tablet) 17.2 mg PO BEDTIME PRN PRN Reason: Constipation Sildenafil Citrate (Sildenafil Citrate 20 Mg Tablet) 20 mg PO TID [facility] Last Admin: 04/29/22 20:14 Dose: Not Given Documented By: SHALA Non-Admin Reason: Patient Refused Sitagliptin Phosphate (Sitagliptin Phosphate 100 Mg Tablet) 100 mg PO DAILY [facility] Last Admin: 04/29/22 10:14 Dose: 100 mg Documented By: DALILA Sodium Chloride (0.9 % Sodium Chloride Flush 3 Ml Syringe) 3 ml IVFLUSH QSHIFT [facility] Last Admin: 04/30/22 06:59 Dose: Not Given Documented By: DALILA Non-Admin Reason: No Access Labs CBC & Chem 7: 04/23/22 07:52 04/23/22 07:52 Labs: Laboratory Results - last 24 hr 04/29/22 04/29/22 04/29/22 11:08 15:12 19:56 POC Glucose 128 H 167 H 187 H 04/30/22 07:14 POC Glucose 140 H Assessment and Plan (1) Pulmonary hypertension: Status: Acute Plan 61-year-old male with a past medical history of schizophrenia, CHF, asthma/COPD, diabetes, hyperlipidemia presented from the [facility] with a chief complaint of acute hypoxia. Noted to have following conditions essentially no new issues No further episodes of elopement, continue close observation, Camera in room Acute hypoxic respiratory failure on presentation suspected d/t COPD/asthma/CHF. Resolved Acute asthma/COPD, chronic intermittent No acute symptoms, continue bronchodilator, Patient has no formal diagnosis. Patient is supposed to be following up with pulmonology as outpatient. He had similar presentation in December 2021. Pulmonary HTN Asymptomatic, continue Viagra, outpatient follow up Heart failure with preserved ejection fraction EF 55 to 60,no acute exacerbation, continue oral Lasix 40 bid Diabetes/hyperglycemia blood sugars in acceptable range continue lantus, SSI, metformin and Sitagliptin schizoaffective disorder Continue home Depakote, haloperidol DVT prophylaxis: Lovenox Code status: Full code. Confirmed with the patient's guardian [facility] proxy invoked. Lacks capacity for medical decision, awaiting permanent placement Need for inpatient : awaiting placement Quality Stroke Does the patient have a stroke diagnosis?: No VTE Prior VTE?: No VTE Risk Level:: Medical - moderate - high VTE Device Contraindication: Treatment Not Indicated VTE Drug Contraindication: N/A - Med Ordered
[2022-04-30 15:26] VITALS: BP 99/58; PULSE 74; RESP 17; TEMP 36.3; O2SAT 94
[2022-04-30 15:38] LABS: Glucose, Whole Blood 122 mg/dL (60-115)
--- NOTE | 2022-04-30 15:44 | MHC.CM.PN ---
[facility] REVIEWED NO BED OFFERS YET, SNF REFERRALS UPDATED. AWAITING RESPONSES
[2022-04-30] MEDS: metFORMIN HCl 500 MG TABLET PO (17:21)
[2022-04-30] MEDS: Divalproex Sodium ER 250 MG TAB.ER.24H PO (17:21)
[2022-04-30] MEDS: Furosemide 40 MG TABLET PO (17:26)
[2022-04-30 19:40] LABS: Glucose, Whole Blood 137 mg/dL (60-115)
[2022-04-30] MEDS: Insulin Glargine,Hum.rec.anlog 100 UNIT/ML 10 ML VIAL 10 UNIT SUBCUT (20:38)
[2022-04-30] MEDS: HaloperidoL 5 MG TABLET 10 MG PO (20:39)
[2022-04-30] MEDS: Ferrous Sulfate 324 MG TABLET.DR PO (20:39)
[2022-04-30] MEDS: Sildenafil Citrate 20 MG TABLET PO (20:39)
[2022-05-01] VITALS: BP 113/72; PULSE 64; RESP 18; TEMP 36.4; O2SAT 96
[2022-05-01 07:26] VITALS: BP 98/68; PULSE 65; RESP 17; TEMP 36.2; O2SAT 94
[2022-05-01 07:34] LABS: Glucose, Whole Blood 198 mg/dL (60-115)
[2022-05-01] MEDS: metFORMIN HCl 500 MG TABLET PO ×2 (07:53→16:38)
[2022-05-01] MEDS: Furosemide 40 MG TABLET PO ×2 (07:53→17:57)
[2022-05-01] MEDS: Atorvastatin Calcium 40 MG TABLET PO (07:53)
[2022-05-01] MEDS: Ferrous Sulfate 324 MG TABLET.DR PO ×2 (07:53→21:09)
[2022-05-01] MEDS: HaloperidoL 5 MG TABLET 10 MG PO ×2 (07:53→21:08)
[2022-05-01] MEDS: Divalproex Sodium ER 500 MG TAB.ER.24H PO (07:53)
[2022-05-01] MEDS: SITagliptin Phosphate 100 MG TABLET PO (07:54)
[2022-05-01] MEDS: Sildenafil Citrate 20 MG TABLET PO ×3 (07:54→21:08)
[2022-05-01] MEDS: Insulin Lispro 100 UNIT/ML 3 ML VIAL SUBCUT ×2 (08:03→16:38)
[2022-05-01 11:34] LABS: Glucose, Whole Blood 99 mg/dL (60-115)
--- NOTE | 2022-05-01 12:27 | HO.PM.IMPN ---
Subjective Subjective Date of Service: 05/01/22 Interval History: Seen and examined this morning Follow-up for placement No overnight events No specific complaints this morning, wants to be discharged Review of Systems no sob no fever Physical Exam Vital Signs: Vital Signs: Last Vital Signs Temp 97.1 F 05/01/22 07:26 Pulse 65 05/01/22 07:26 Resp 17 05/01/22 07:26 BP 98/68 05/01/22 07:26 Pulse Ox 94 05/01/22 07:26 O2 Del Method 05/01/22 07:26 O2 Flow Rate 2 02/16/22 07:18 FiO2 94 02/13/22 15:38 BMI result Body Mass Index 21.8 Const: Other: General: AO X 2 (self, place), no acute distress Resp: CTA bilateral CVS: S1,S2,RRR GI: +BS, NT, no distention Skin: No rash Neuro: motor grossly intact Psych: flat affect Objective Data Active Medications Acetaminophen (Acetaminophen 325 Mg Tablet) 650 mg PO Q6H PRN PRN Reason: Pain, Mild (Pain Scale 1-3) Atorvastatin Calcium (Atorvastatin Calcium 40 Mg Tablet) 40 mg PO DAILY [facility] Last Admin: 05/01/22 07:53 Dose: 40 mg Documented By: MICHA Dextrose (Dextrose 50 % 25 Gm/50 Ml Syringe) 25 gm IVPUSH Q15M PRN; Protocol PRN Reason: per Hypoglycemia Standing Ord. Divalproex Sodium (Divalproex Sodium Er 250 Mg Tab.Er.24h) 250 mg PO DAILY@1700 [facility] Last Admin: 04/30/22 17:21 Dose: 250 mg Documented By: NATHAN Divalproex Sodium (Divalproex Sodium Er 500 Mg Tab.Er.24h) 500 mg PO DAILY [facility] Last Admin: 05/01/22 07:53 Dose: 500 mg Documented By: MICHA Ferrous Sulfate (Ferrous Sulfate 324 Mg Tablet.) 324 mg PO BID [facility] Last Admin: 05/01/22 07:53 Dose: 324 mg Documented By: MICHA Fluticasone Propionate (Fluticasone Propionate Nasal 16 Gm [place]) 1 spray NOSTRIL-B BID [facility] Last Admin: 05/01/22 08:05 Dose: Not Given Documented By: MICHA Non-Admin Reason: Patient Refused Furosemide (Furosemide 40 Mg Tablet) 40 mg PO BID@0900,1800 [facility]; Protocol Last Admin: 05/01/22 07:53 Dose: 40 mg Documented By: MICHA Glucose (Glucose Gel 15 Gm Gel..Gram.) 15 gm PO Q15M PRN; Protocol PRN Reason: per Hypoglycemia Standing Ord. Haloperidol (Haloperidol 5 Mg Tablet) 10 mg PO BID [facility] Last Admin: 05/01/22 07:53 Dose: 10 mg Documented By: MICHA Insulin Glargine (Insulin Glargine,Hum.Rec.Anlog 100 Unit/Ml 10 Ml Vial) 10 unit SUBCUT BEDTIME [facility] Last Admin: 04/30/22 20:38 Dose: 10 unit Documented By: NATHAN Insulin Human Lispro (Insulin Lispro 100 Unit/Ml 3 Ml Vial) 0 unit SUBCUT QIDACHS [facility]; Protocol Last Admin: 05/01/22 11:52 Dose: Not Given Documented By: MICHA Non-Admin Reason: No Insulin Coverage Melatonin (Melatonin 3 Mg Tablet) 6 mg PO BEDTIME PRN PRN Reason: Insomnia Last Admin: 04/24/22 21:50 Dose: 6 mg Documented By: EMELINA Metformin HCl (Metformin Hcl 500 Mg Tablet) 500 mg PO BIDWM [facility] Last Admin: 05/01/22 07:53 Dose: 500 mg Documented By: MICHA Neomycin/Polymyxin/Hydrocortisone (Neomycin/Polymyxin/Hc Otic Melanie 10 Ml Drpbtl) 3 drop EAR-RIGHT QID [facility] Last Admin: 05/01/22 08:05 Dose: Not Given Documented By: MICHA Non-Admin Reason: Patient Refused Olanzapine (Olanzapine Odt 10 Mg Tab.Rapdis) 5 mg TRANSLINGU BID PRN PRN Reason: agitation, psychosis Last Admin: 03/15/22 19:48 Dose: 5 mg Documented By: GENIE Omeprazole (Omeprazole 20 Mg Capsule.Dr) 20 mg PO DAILY@0630 [facility] Last Admin: 05/01/22 05:37 Dose: Not Given Documented By: ARMANDO Non-Admin Reason: Patient Refused Senna (Sennosides 8.6 Mg Tablet) 17.2 mg PO BEDTIME PRN PRN Reason: Constipation Sildenafil Citrate (Sildenafil Citrate 20 Mg Tablet) 20 mg PO TID [facility] Last Admin: 05/01/22 07:54 Dose: 20 mg Documented By: MICHA Sitagliptin Phosphate (Sitagliptin Phosphate 100 Mg Tablet) 100 mg PO DAILY [facility] Last Admin: 05/01/22 07:54 Dose: 100 mg Documented By: MICHA Sodium Chloride (0.9 % Sodium Chloride Flush 3 Ml Syringe) 3 ml IVFLUSH QSHIFT [facility] Last Admin: 05/01/22 08:04 Dose: Not Given Documented By: MICHA Non-Admin Reason: No Access Labs CBC & Chem 7: 04/23/22 07:52 04/23/22 07:52 Labs: Laboratory Results - last 24 hr 04/30/22 04/30/22 05/01/22 15:29 19:32 07:28 POC Glucose 122 H 137 H 198 H 05/01/22 11:30 POC Glucose 99 Assessment and Plan (1) Pulmonary hypertension: Status: Acute Plan 61-year-old male with a past medical history of schizophrenia, CHF, asthma/COPD, diabetes, hyperlipidemia presented from the skilled nursing with a chief complaint of acute hypoxia. Noted to have following conditions essentially no new issues No further episodes of elopement, continue close observation, Camera in room Acute hypoxic respiratory failure on presentation suspected d/t COPD/asthma/CHF. Resolved Acute asthma/COPD, chronic intermittent No acute symptoms, continue bronchodilator, Patient has no formal diagnosis. Patient is supposed to be following up with pulmonology as outpatient. He had similar presentation in December 2021. Pulmonary HTN Asymptomatic, continue Viagra, outpatient follow up Heart failure with preserved ejection fraction EF 55 to 60,no acute exacerbation, continue oral Lasix 40 bid Diabetes/hyperglycemia blood sugars in acceptable range continue lantus, SSI, metformin and Sitagliptin schizoaffective disorder Continue home Depakote, haloperidol DVT prophylaxis: Lovenox Code status: Full code. Confirmed with the patient's guardian [facility] proxy invoked. Lacks capacity for medical decision, awaiting permanent placement Need for inpatient : awaiting placement Quality Stroke Does the patient have a stroke diagnosis?: No VTE Prior VTE?: No VTE Risk Level:: Medical - moderate - high VTE Device Contraindication: Treatment Not Indicated VTE Drug Contraindication: N/A - Med Ordered
[2022-05-01 15:43] VITALS: BP 103/60; PULSE 79; RESP 16; TEMP 36.8; O2SAT 97
[2022-05-01 16:07] LABS: Glucose, Whole Blood 230 mg/dL (60-115)
[2022-05-01] MEDS: Divalproex Sodium ER 250 MG TAB.ER.24H PO (16:38)
[2022-05-01 19:48] LABS: Glucose, Whole Blood 159 mg/dL (60-115)
[2022-05-01] MEDS: Insulin Glargine,Hum.rec.anlog 100 UNIT/ML 10 ML VIAL 10 UNIT SUBCUT (21:11)
[2022-05-02 08:00] VITALS: BP 92/71; PULSE 72; RESP 18; TEMP 36.1; O2SAT 93
[2022-05-02] MEDS: Atorvastatin Calcium 40 MG TABLET PO (08:28)
[2022-05-02] MEDS: Ferrous Sulfate 324 MG TABLET.DR PO ×2 (08:29→20:01)
[2022-05-02] MEDS: Divalproex Sodium ER 500 MG TAB.ER.24H PO (08:29)
[2022-05-02] MEDS: SITagliptin Phosphate 100 MG TABLET PO (08:29)
[2022-05-02] MEDS: HaloperidoL 5 MG TABLET 10 MG PO ×2 (08:29→20:02)
[2022-05-02] MEDS: Sildenafil Citrate 20 MG TABLET PO ×3 (08:29→20:02)
[2022-05-02] MEDS: metFORMIN HCl 500 MG TABLET PO ×2 (08:29→16:43)
--- NOTE | 2022-05-02 12:42 | HO.PM.IMPN ---
Subjective Subjective Date of Service: 05/02/22 Interval History: Seen and examined this morning Follow-up for placement No overnight events No specific complaints this morning, disgrunted and wants to be discharged Review of Systems no sob no fever Physical Exam Vital Signs: Vital Signs: Last Vital Signs Temp 97.0 F 05/02/22 08:00 Pulse 72 05/02/22 08:00 Resp 18 05/02/22 08:00 BP 92/71 05/02/22 08:00 Pulse Ox 93 05/02/22 08:00 O2 Del Method 05/02/22 08:00 O2 Flow Rate 2 02/16/22 07:18 FiO2 94 02/13/22 15:38 BMI result Body Mass Index 21.8 Const: Other: General: AO X 2 (self, place), no acute distress Resp: CTA bilateral CVS: S1,S2,RRR GI: +BS, NT, no distention Skin: No rash Neuro: motor grossly intact Psych: flat affect Objective Data Active Medications Acetaminophen (Acetaminophen 325 Mg Tablet) 650 mg PO Q6H PRN PRN Reason: Pain, Mild (Pain Scale 1-3) Atorvastatin Calcium (Atorvastatin Calcium 40 Mg Tablet) 40 mg PO DAILY [facility] Last Admin: 05/02/22 08:28 Dose: 40 mg Documented By: ATIF Dextrose (Dextrose 50 % 25 Gm/50 Ml Syringe) 25 gm IVPUSH Q15M PRN; Protocol PRN Reason: per Hypoglycemia Standing Ord. Divalproex Sodium (Divalproex Sodium Er 250 Mg Tab.Er.24h) 250 mg PO DAILY@1700 [facility] Last Admin: 05/01/22 16:38 Dose: 250 mg Documented By: MICHA Divalproex Sodium (Divalproex Sodium Er 500 Mg Tab.Er.24h) 500 mg PO DAILY [facility] Last Admin: 05/02/22 08:29 Dose: 500 mg Documented By: ATIF Ferrous Sulfate (Ferrous Sulfate 324 Mg Tablet.Dr) 324 mg PO BID [facility] Last Admin: 05/02/22 08:29 Dose: 324 mg Documented By: ATIF Fluticasone Propionate (Fluticasone Propionate Nasal 16 Gm [place]) 1 spray NOSTRIL-B BID [facility] Last Admin: 05/02/22 08:32 Dose: Not Given Documented By: ATIF Non-Admin Reason: Patient Refused Furosemide (Furosemide 40 Mg Tablet) 40 mg PO BID@0900,1800 [facility]; Protocol Last Admin: 05/02/22 08:32 Dose: Not Given Documented By: ATIF Non-Yasmani Reason: low blood pressure Glucose (Glucose Gel 15 Gm Gel..Gram.) 15 gm PO Q15M PRN; Protocol PRN Reason: per Hypoglycemia Standing Ord. Haloperidol (Haloperidol 5 Mg Tablet) 10 mg PO BID [facility] Last Admin: 05/02/22 08:29 Dose: 10 mg Documented By: ATIF Insulin Glargine (Insulin Glargine,Hum.Rec.Anlog 100 Unit/Ml 10 Ml Vial) 10 unit SUBCUT BEDTIME [facility] Last Admin: 05/01/22 21:11 Dose: 10 unit Documented By: YUDI Insulin Human Lispro (Insulin Lispro 100 Unit/Ml 3 Ml Vial) 0 unit SUBCUT QIDACHS [facility]; Protocol Last Admin: 05/02/22 12:00 Dose: Not Given Documented By: ATIF Non-Admin Reason: Patient Refused Melatonin (Melatonin 3 Mg Tablet) 6 mg PO BEDTIME PRN PRN Reason: Insomnia Last Admin: 04/24/22 21:50 Dose: 6 mg Documented By: EMELINA Metformin HCl (Metformin Hcl 500 Mg Tablet) 500 mg PO BIDWM [facility] Last Admin: 05/02/22 08:29 Dose: 500 mg Documented By: ATIF Neomycin/Polymyxin/Hydrocortisone (Neomycin/Polymyxin/Hc Otic Melanie 10 Ml Drpbtl) 3 drop EAR-RIGHT QID [facility] Last Admin: 05/02/22 08:33 Dose: Not Given Documented By: ATIF Non-Admin Reason: Patient Refused Olanzapine (Olanzapine Odt 10 Mg Tab.Rapdis) 5 mg TRANSLINGU BID PRN PRN Reason: agitation, psychosis Last Admin: 03/15/22 19:48 Dose: 5 mg Documented By: GENIE Omeprazole (Omeprazole 20 Mg Capsule.Dr) 20 mg PO DAILY@0630 [facility] Last Admin: 05/02/22 05:06 Dose: Not Given Documented By: YUDI Non-Admin Reason: Patient Refused Senna (Sennosides 8.6 Mg Tablet) 17.2 mg PO BEDTIME PRN PRN Reason: Constipation Sildenafil Citrate (Sildenafil Citrate 20 Mg Tablet) 20 mg PO TID [facility] Last Admin: 05/02/22 08:29 Dose: 20 mg Documented By: ATIF Sitagliptin Phosphate (Sitagliptin Phosphate 100 Mg Tablet) 100 mg PO DAILY [facility] Last Admin: 05/02/22 08:29 Dose: 100 mg Documented By: ATIF Sodium Chloride (0.9 % Sodium Chloride Flush 3 Ml Syringe) 3 ml IVFLUSH QSHIFT [facility] Last Admin: 05/02/22 08:32 Dose: Not Given Documented By: ATIF Non-Admin Reason: No Access Labs CBC & Chem 7: 04/23/22 07:52 04/23/22 07:52 Labs: Laboratory Results - last 24 hr 05/01/22 05/01/22 15:47 19:35 POC Glucose 230 H 159 H Assessment and Plan (1) Pulmonary hypertension: Status: Acute Plan 61-year-old male with a past medical history of schizophrenia, CHF, asthma/COPD, diabetes, hyperlipidemia presented from the senior care with a chief complaint of acute hypoxia. Noted to have following conditions essentially no new issues No further episodes of elopement, continue close observation, Camera in room Acute hypoxic respiratory failure on presentation suspected d/t COPD/asthma/CHF. Resolved Acute asthma/COPD, chronic intermittent No acute symptoms, continue bronchodilator, Patient has no formal diagnosis. Patient is supposed to be following up with pulmonology as outpatient. He had similar presentation in December 2021. Pulmonary HTN Asymptomatic, continue Viagra, outpatient follow up Heart failure with preserved ejection fraction EF 55 to 60,no acute exacerbation, continue oral Lasix 40 bid Diabetes/hyperglycemia blood sugars in acceptable range continue lantus, SSI, metformin and Sitagliptin schizoaffective disorder Continue home Depakote, haloperidol DVT prophylaxis: Lovenox Code status: Full code. Confirmed with the patient's guardian [facility] proxy invoked. Lacks capacity for medical decision, awaiting permanent placement Need for inpatient : awaiting placement Quality Stroke Does the patient have a stroke diagnosis?: No VTE Prior VTE?: No VTE Risk Level:: Medical - moderate - high VTE Device Contraindication: Treatment Not Indicated VTE Drug Contraindication: N/A - Med Ordered
[2022-05-02 15:38] VITALS: BP 96/61; PULSE 84; RESP 17; TEMP 36.6; O2SAT 96
[2022-05-02 15:46] LABS: Glucose, Whole Blood 174 mg/dL (60-115)
[2022-05-02] MEDS: Furosemide 40 MG TABLET PO (16:42)
[2022-05-02] MEDS: Divalproex Sodium ER 250 MG TAB.ER.24H PO (16:43)
[2022-05-02 19:10] VITALS: BP 104/62; PULSE 72; RESP 18; TEMP 36.4; O2SAT 97
[2022-05-02 19:33] LABS: Glucose, Whole Blood 166 mg/dL (60-115)
[2022-05-02] MEDS: Insulin Glargine,Hum.rec.anlog 100 UNIT/ML 10 ML VIAL 10 UNIT SUBCUT (20:01)
[2022-05-03 07:10] VITALS: BP 98/65; PULSE 72; RESP 18; TEMP 36.4; O2SAT 92
[2022-05-03 07:21] LABS: Glucose, Whole Blood 124 mg/dL (60-115)
[2022-05-03 10:08] LABS: Creatinine Clr Calc Pharmacy 104.2; Estimated Glomerular Filt Rate > 60
--- NOTE | 2022-05-03 11:24 | P.PNIM_ITS ---
Subjective Subjective Date of Service: 05/03/22 Interval History: Seen and examined this morning Follow-up for placement No overnight events No specific complaints this morning, taking meds, cooperative Review of Systems no sob no fever Physical Exam Vital Signs: Vital Signs: Last Vital Signs Temp 97.6 F 05/03/22 07:10 Pulse 72 05/03/22 07:10 Resp 18 05/03/22 07:10 BP 98/65 05/03/22 07:10 Pulse Ox 92 05/03/22 07:10 O2 Del Method 05/03/22 07:10 O2 Flow Rate 2 02/16/22 07:18 FiO2 94 02/13/22 15:38 BMI result Body Mass Index 21.8 Const: Other: General: AO X 2 (self, place), no acute distress Resp: CTA bilateral CVS: S1,S2,RRR GI: +BS, NT, no distention Skin: No rash Neuro: motor grossly intact Psych: flat affect Objective Data Active Medications Acetaminophen (Acetaminophen 325 Mg Tablet) 650 mg PO Q6H PRN PRN Reason: Pain, Mild (Pain Scale 1-3) Atorvastatin Calcium (Atorvastatin Calcium 40 Mg Tablet) 40 mg PO DAILY [facility] Last Admin: 05/03/22 09:52 Dose: Not Given Documented By: ISELA Non-Admin Reason: Patient Refused Dextrose (Dextrose 50 % 25 Gm/50 Ml Syringe) 25 gm IVPUSH Q15M PRN; Protocol PRN Reason: per Hypoglycemia Standing Ord. Divalproex Sodium (Divalproex Sodium Er 250 Mg Tab.Er.24h) 250 mg PO DAILY@1700 [facility] Last Admin: 05/02/22 16:43 Dose: 250 mg Documented By: ATIF Divalproex Sodium (Divalproex Sodium Er 500 Mg Tab.Er.24h) 500 mg PO DAILY [facility] Last Admin: 05/03/22 09:52 Dose: Not Given Documented By: ISELA Non-Admin Reason: Patient Refused Ferrous Sulfate (Ferrous Sulfate 324 Mg Tablet.) 324 mg PO BID [facility] Last Admin: 05/03/22 09:52 Dose: Not Given Documented By: ISELA Non-Admin Reason: Patient Refused Fluticasone Propionate (Fluticasone Propionate Nasal 16 Gm [place]) 1 spray NOSTRIL-B BID [facility] Last Admin: 05/03/22 09:52 Dose: Not Given Documented By: ISELA Non-Admin Reason: Patient Refused Furosemide (Furosemide 40 Mg Tablet) 40 mg PO BID@0900,1800 [facility]; Protocol Last Admin: 05/03/22 09:52 Dose: Not Given Documented By: ISELA Non-Admin Reason: Patient Refused Glucose (Glucose Gel 15 Gm Gel..Gram.) 15 gm PO Q15M PRN; Protocol PRN Reason: per Hypoglycemia Standing Ord. Haloperidol (Haloperidol 5 Mg Tablet) 10 mg PO BID [facility] Last Admin: 05/03/22 09:52 Dose: Not Given Documented By: ISELA Non-Admin Reason: Patient Refused Insulin Glargine (Insulin Glargine,Hum.Rec.Anlog 100 Unit/Ml 10 Ml Vial) 10 unit SUBCUT BEDTIME [facility] Last Admin: 05/02/22 20:01 Dose: 10 unit Documented By: YUDI Insulin Human Lispro (Insulin Lispro 100 Unit/Ml 3 Ml Vial) 0 unit SUBCUT QIDACHS [facility]; Protocol Last Admin: 05/03/22 07:55 Dose: Not Given Documented By: ISELA Non-Admin Reason: No Insulin Coverage Melatonin (Melatonin 3 Mg Tablet) 6 mg PO BEDTIME PRN PRN Reason: Insomnia Last Admin: 04/24/22 21:50 Dose: 6 mg Documented By: EMELINA Metformin HCl (Metformin Hcl 500 Mg Tablet) 500 mg PO BIDWM [facility] Last Admin: 05/03/22 09:51 Dose: Not Given Documented By: ISELA Non-Admin Reason: Patient Refused Neomycin/Polymyxin/Hydrocortisone (Neomycin/Polymyxin/Hc Otic Melanie 10 Ml Drpbtl) 3 drop EAR-RIGHT QID [facility] Last Admin: 05/03/22 09:52 Dose: Not Given Documented By: ISELA Non-Admin Reason: Patient Refused Olanzapine (Olanzapine Odt 10 Mg Tab.Rapdis) 5 mg TRANSLINGU BID PRN PRN Reason: agitation, psychosis Last Admin: 03/15/22 19:48 Dose: 5 mg Documented By: GENIE Omeprazole (Omeprazole 20 Mg Capsule.Dr) 20 mg PO DAILY@0630 [facility] Last Admin: 05/03/22 05:11 Dose: Not Given Documented By: YUDI Non-Admin Reason: Patient Refused Senna (Sennosides 8.6 Mg Tablet) 17.2 mg PO BEDTIME PRN PRN Reason: Constipation Sildenafil Citrate (Sildenafil Citrate 20 Mg Tablet) 20 mg PO TID [facility] Last Admin: 05/03/22 09:52 Dose: Not Given Documented By: ISELA Non-Admin Reason: Patient Refused Sitagliptin Phosphate (Sitagliptin Phosphate 100 Mg Tablet) 100 mg PO DAILY [facility] Last Admin: 05/03/22 09:53 Dose: Not Given Documented By: ISELA Non-Admin Reason: Patient Refused Sodium Chloride (0.9 % Sodium Chloride Flush 3 Ml Syringe) 3 ml IVFLUSH QSHIFT [facility] Last Admin: 05/03/22 09:51 Dose: Not Given Documented By: ISELA Non-Admin Reason: Patient Refused Labs CBC & Chem 7: 04/23/22 07:52 05/03/22 09:40 Labs: Laboratory Results - last 24 hr 05/02/22 05/02/22 05/03/22 15:40 19:04 07:16 Estim Creat Clear Calc Estimated GFR POC Glucose 174 H 166 H 124 H 05/03/22 09:40 Estim Creat Clear Calc 104.2 Estimated GFR > 60 POC Glucose Assessment and Plan (1) Pulmonary hypertension: Status: Acute Plan 61-year-old male with a past medical history of schizophrenia, CHF, asthma/COPD, diabetes, hyperlipidemia presented from the [facility] with a chief complaint of acute hypoxia. Noted to have following conditions essentially no new issues No further episodes of elopement, continue close observation, Camera in room Acute hypoxic respiratory failure on presentation suspected d/t COPD/asthma/CHF. Resolved Acute asthma/COPD, chronic intermittent No acute symptoms, continue bronchodilator, Patient has no formal diagnosis. Patient is supposed to be following up with pulmonology as outpatient. He had similar presentation in December 2021. Pulmonary HTN Asymptomatic, continue Viagra, outpatient follow up Heart failure with preserved ejection fraction EF 55 to 60,no acute exacerbation, continue oral Lasix 40 bid Diabetes/hyperglycemia blood sugars in acceptable range continue lantus, SSI, metformin and Sitagliptin schizoaffective disorder Continue home Depakote, haloperidol DVT prophylaxis: Lovenox Code status: Full code. Confirmed with the patient's guardian [facility] proxy invoked. Lacks capacity for medical decision, awaiting permanent placement Need for inpatient : awaiting placement Quality Stroke Does the patient have a stroke diagnosis?: No VTE Prior VTE?: No VTE Risk Level:: Medical - moderate - high VTE Device Contraindication: Treatment Not Indicated VTE Drug Contraindication: N/A - Med Ordered
[2022-05-03 15:48] VITALS: BP 111/66; PULSE 92; RESP 18; TEMP 37.1; O2SAT 95
--- NOTE | 2022-05-03 15:50 | PC.NURSE ---
pt have been consistently refusing his medications. I dont want any medications and shut my door
[2022-05-03 16:29] LABS: Glucose, Whole Blood 139 mg/dL (60-115)
[2022-05-03] MEDS: Divalproex Sodium ER 250 MG TAB.ER.24H PO (18:25)
[2022-05-03] MEDS: metFORMIN HCl 500 MG TABLET PO (18:25)
[2022-05-03] MEDS: Furosemide 40 MG TABLET PO (18:27)
[2022-05-03] MEDS: Sildenafil Citrate 20 MG TABLET PO ×2 (18:28→20:32)
--- NOTE | 2022-05-03 19:32 | PC.NURSE ---
pt accepted 1600 meds with sara
[2022-05-03 19:36] LABS: Glucose, Whole Blood 144 mg/dL (60-115)
[2022-05-03] MEDS: Ferrous Sulfate 324 MG TABLET.DR PO (20:31)
[2022-05-03] MEDS: HaloperidoL 5 MG TABLET 10 MG PO (20:32)
[2022-05-03] MEDS: Melatonin 3 MG TABLET 6 MG PO (20:32)
[2022-05-04 07:05] VITALS: BP 106/63; PULSE 56; RESP 16; TEMP 36.1; O2SAT 94
[2022-05-04 07:12] LABS: Glucose, Whole Blood 158 mg/dL (60-115)
[2022-05-04] MEDS: metFORMIN HCl 500 MG TABLET PO ×2 (07:47→16:57)
[2022-05-04] MEDS: Divalproex Sodium ER 500 MG TAB.ER.24H PO (07:47)
[2022-05-04] MEDS: SITagliptin Phosphate 100 MG TABLET PO (07:47)
[2022-05-04] MEDS: Ferrous Sulfate 324 MG TABLET.DR PO ×2 (07:47→20:20)
[2022-05-04] MEDS: HaloperidoL 5 MG TABLET 10 MG PO ×2 (07:47→20:20)
[2022-05-04] MEDS: Atorvastatin Calcium 40 MG TABLET PO (07:48)
[2022-05-04] MEDS: Furosemide 40 MG TABLET PO ×2 (07:48→16:58)
[2022-05-04] MEDS: Sildenafil Citrate 20 MG TABLET PO ×3 (07:49→20:20)
--- NOTE | 2022-05-04 09:19 | HO.PM.IMPN ---
Subjective Subjective Date of Service: 05/04/22 Interval History: Seen and examined this morning Follow-up for placement No overnight events No specific complaints this morning, taking meds, cooperative Review of Systems no sob no fever Physical Exam Vital Signs: Vital Signs: Last Vital Signs Temp 97.0 F 05/04/22 07:05 Pulse 56 05/04/22 07:05 Resp 16 05/04/22 07:05 BP 106/63 05/04/22 07:05 Pulse Ox 94 05/04/22 07:05 O2 Del Method 05/04/22 07:05 O2 Flow Rate 2 02/16/22 07:18 FiO2 94 02/13/22 15:38 BMI result Body Mass Index 21.8 Const: Other: General: AO X 2 (self, place), no acute distress Resp: CTA bilateral CVS: S1,S2,RRR GI: +BS, NT, no distention Skin: No rash Neuro: motor grossly intact Psych: flat affect Objective Data Active Medications Acetaminophen (Acetaminophen 325 Mg Tablet) 650 mg PO Q6H PRN PRN Reason: Pain, Mild (Pain Scale 1-3) Atorvastatin Calcium (Atorvastatin Calcium 40 Mg Tablet) 40 mg PO DAILY [facility] Last Admin: 05/04/22 07:48 Dose: 40 mg Documented By: ATIF Dextrose (Dextrose 50 % 25 Gm/50 Ml Syringe) 25 gm IVPUSH Q15M PRN; Protocol PRN Reason: per Hypoglycemia Standing Ord. Divalproex Sodium (Divalproex Sodium Er 250 Mg Tab.Er.24h) 250 mg PO DAILY@1700 [facility] Last Admin: 05/03/22 18:25 Dose: 250 mg Documented By: ISELA Divalproex Sodium (Divalproex Sodium Er 500 Mg Tab.Er.24h) 500 mg PO DAILY [facility] Last Admin: 05/04/22 07:47 Dose: 500 mg Documented By: ATIF Ferrous Sulfate (Ferrous Sulfate 324 Mg Tablet.Dr) 324 mg PO BID [facility] Last Admin: 05/04/22 07:47 Dose: 324 mg Documented By: ATIF Fluticasone Propionate (Fluticasone Propionate Nasal 16 Gm [place]) 1 spray NOSTRIL-B BID [facility] Last Admin: 05/04/22 07:48 Dose: Not Given Documented By: ATIF Non-Admin Reason: Patient Refused Furosemide (Furosemide 40 Mg Tablet) 40 mg PO BID@0900,1800 [facility]; Protocol Last Admin: 05/04/22 07:48 Dose: 40 mg Documented By: ATIF Glucose (Glucose Gel 15 Gm Gel..Gram.) 15 gm PO Q15M PRN; Protocol PRN Reason: per Hypoglycemia Standing Ord. Haloperidol (Haloperidol 5 Mg Tablet) 10 mg PO BID [facility] Last Admin: 05/04/22 07:47 Dose: 10 mg Documented By: ATIF Insulin Glargine (Insulin Glargine,Hum.Rec.Anlog 100 Unit/Ml 10 Ml Vial) 10 unit SUBCUT BEDTIME [facility] Last Admin: 05/03/22 20:35 Dose: Not Given Documented By: ANA Non-Admin Reason: Patient Refused Insulin Human Lispro (Insulin Lispro 100 Unit/Ml 3 Ml Vial) 0 unit SUBCUT QIDACHS [facility]; Protocol Last Admin: 05/04/22 07:48 Dose: Not Given Documented By: ATIF Non-Admin Reason: Patient Refused Melatonin (Melatonin 3 Mg Tablet) 6 mg PO BEDTIME PRN PRN Reason: Insomnia Last Admin: 05/03/22 20:32 Dose: 6 mg Documented By: ANA Metformin HCl (Metformin Hcl 500 Mg Tablet) 500 mg PO BIDWM [facility] Last Admin: 05/04/22 07:47 Dose: 500 mg Documented By: ATIF Neomycin/Polymyxin/Hydrocortisone (Neomycin/Polymyxin/Hc Otic Melanie 10 Ml Drpbtl) 3 drop EAR-RIGHT QID [facility] Last Admin: 05/04/22 07:49 Dose: Not Given Documented By: ATIF Non-Admin Reason: Patient Refused Olanzapine (Olanzapine Odt 10 Mg Tab.Rapdis) 5 mg TRANSLINGU BID PRN PRN Reason: agitation, psychosis Last Admin: 03/15/22 19:48 Dose: 5 mg Documented By: GENIE Omeprazole (Omeprazole 20 Mg Capsule.Dr) 20 mg PO DAILY@0630 [facility] Last Admin: 05/04/22 05:45 Dose: Not Given Documented By: ANA Non-Admin Reason: Patient Refused Senna (Sennosides 8.6 Mg Tablet) 17.2 mg PO BEDTIME PRN PRN Reason: Constipation Sildenafil Citrate (Sildenafil Citrate 20 Mg Tablet) 20 mg PO TID [facility] Last Admin: 05/04/22 07:49 Dose: 20 mg Documented By: ATIF Sitagliptin Phosphate (Sitagliptin Phosphate 100 Mg Tablet) 100 mg PO DAILY [facility] Last Admin: 05/04/22 07:47 Dose: 100 mg Documented By: ATIF Sodium Chloride (0.9 % Sodium Chloride Flush 3 Ml Syringe) 3 ml IVFLUSH QSHIFT [facility] Last Admin: 05/04/22 07:48 Dose: Not Given Documented By: ATIF Non-Admin Reason: No Access Labs CBC & Chem 7: 04/23/22 07:52 05/03/22 09:40 Labs: Laboratory Results - last 24 hr 05/03/22 05/03/22 05/03/22 09:40 15:53 19:21 Estim Creat Clear Calc 104.2 Estimated GFR > 60 POC Glucose 139 H 144 H 05/04/22 07:07 Estim Creat Clear Calc Estimated GFR POC Glucose 158 H Assessment and Plan (1) Pulmonary hypertension: Status: Acute Plan 61-year-old male with a past medical history of schizophrenia, CHF, asthma/COPD, diabetes, hyperlipidemia [facility] with a chief complaint of acute hypoxia. Noted to have following conditions essentially no new issues No further episodes of elopement, continue close observation, Camera in room Acute hypoxic respiratory failure on presentation suspected d/t COPD/asthma/CHF. Resolved Acute asthma/COPD, chronic intermittent No acute symptoms, continue bronchodilator, Patient has no formal diagnosis. Patient is supposed to be following up with pulmonology as outpatient. He had similar presentation in December 2021. Pulmonary HTN Asymptomatic, continue Viagra, outpatient follow up Heart failure with preserved ejection fraction EF 55 to 60,no acute exacerbation, continue oral Lasix 40 bid Diabetes/hyperglycemia blood sugars in acceptable range continue lantus, SSI, metformin and Sitagliptin schizoaffective disorder Continue home Depakote, haloperidol DVT prophylaxis: Lovenox Code status: Full code. Confirmed with the patient's guardian [employer] proxy invoked. Lacks capacity for medical decision, awaiting permanent placement Need for inpatient : awaiting placement I spoke to patient's father at [facility] yesterday and he raised concern of patient's mental capapcity and memory lapses to be able to make sound decisions, will discuss this in multi disciplinary round and consider reconsulting Psych. He also ask for a repeat head MRI Quality Stroke Does the patient have a stroke diagnosis?: No VTE Prior VTE?: No VTE Risk Level:: Medical - moderate - high VTE Device Contraindication: Treatment Not Indicated VTE Drug Contraindication: N/A - Med Ordered
[2022-05-04 11:16] LABS: Glucose, Whole Blood 164 mg/dL (60-115)
--- NOTE | 2022-05-04 13:44 | MHC.CM.PN ---
emr reviewed, snf referral updated, cm received call from [facility] liaison who reports she spoke w/Kellie Jones and requested w/send updated clinicals to [facility] which has been done, cm will cont to follow referrals and d/c needs.
[2022-05-04 15:35] VITALS: BP 102/61; PULSE 66; RESP 17; TEMP 36; O2SAT 95
[2022-05-04 15:58] LABS: Glucose, Whole Blood 148 mg/dL (60-115)
[2022-05-04] MEDS: Divalproex Sodium ER 250 MG TAB.ER.24H PO (16:58)
[2022-05-04 20:17] LABS: Glucose, Whole Blood 199 mg/dL (60-115)
[2022-05-04] MEDS: Insulin Glargine,Hum.rec.anlog 100 UNIT/ML 10 ML VIAL 10 UNIT SUBCUT (20:22)
[2022-05-04 23:33] VITALS: BP 103/56; PULSE 73; RESP 18; TEMP 36.6; O2SAT 94
[2022-05-05 07:57] VITALS: BP 110/70; PULSE 59; RESP 18; TEMP 36.1; O2SAT 94
[2022-05-05 08:02] LABS: Glucose, Whole Blood 152 mg/dL (60-115)
--- NOTE | 2022-05-05 08:07 | HO.PM.IMPN ---
Subjective Subjective Date of Service: 05/05/22 Interval History: Seen and examined this morning Follow-up for placement No overnight events No specific complaints this morning, taking meds, cooperative, no sob Review of Systems no sob no fever Physical Exam Vital Signs: Vital Signs: Last Vital Signs Temp 97.0 F 05/05/22 07:57 Pulse 59 05/05/22 07:57 Resp 18 05/05/22 07:57 BP 110/70 05/05/22 07:57 Pulse Ox 94 05/05/22 07:57 O2 Del Method 05/05/22 07:57 O2 Flow Rate 2 02/16/22 07:18 FiO2 94 02/13/22 15:38 BMI result Body Mass Index 21.8 Const: Other: General: AO X 2 (self, place), no acute distress Resp: CTA bilateral CVS: S1,S2,RRR GI: +BS, NT, no distention Skin: No rash Neuro: motor grossly intact Psych: flat affect Objective Data Active Medications Acetaminophen (Acetaminophen 325 Mg Tablet) 650 mg PO Q6H PRN PRN Reason: Pain, Mild (Pain Scale 1-3) Atorvastatin Calcium (Atorvastatin Calcium 40 Mg Tablet) 40 mg PO DAILY [facility] Last Admin: 05/04/22 07:48 Dose: 40 mg Documented By: ATIF Dextrose (Dextrose 50 % 25 Gm/50 Ml Syringe) 25 gm IVPUSH Q15M PRN; Protocol PRN Reason: per Hypoglycemia Standing Ord. Divalproex Sodium (Divalproex Sodium Er 250 Mg Tab.Er.24h) 250 mg PO DAILY@1700 [facility] Last Admin: 05/04/22 16:58 Dose: 250 mg Documented By: ATIF Divalproex Sodium (Divalproex Sodium Er 500 Mg Tab.Er.24h) 500 mg PO DAILY [facility] Last Admin: 05/04/22 07:47 Dose: 500 mg Documented By: ATIF Ferrous Sulfate (Ferrous Sulfate 324 Mg Tablet.Dr) 324 mg PO BID [facility] Last Admin: 05/04/22 20:20 Dose: 324 mg Documented By: YUDI Fluticasone Propionate (Fluticasone Propionate Nasal 16 Gm [place]) 1 spray NOSTRIL-B BID [facility] Last Admin: 05/04/22 20:21 Dose: Not Given Documented By: YUDI Non-Admin Reason: Patient Refused Furosemide (Furosemide 40 Mg Tablet) 40 mg PO BID@0900,1800 [facility]; Protocol Last Admin: 05/04/22 16:58 Dose: 40 mg Documented By: ATIF Glucose (Glucose Gel 15 Gm Gel..Gram.) 15 gm PO Q15M PRN; Protocol PRN Reason: per Hypoglycemia Standing Ord. Haloperidol (Haloperidol 5 Mg Tablet) 10 mg PO BID [facility] Last Admin: 05/04/22 20:20 Dose: 10 mg Documented By: YUDI Insulin Glargine (Insulin Glargine,Hum.Rec.Anlog 100 Unit/Ml 10 Ml Vial) 10 unit SUBCUT BEDTIME [facility] Last Admin: 05/04/22 20:22 Dose: 10 unit Documented By: YUDI Insulin Human Lispro (Insulin Lispro 100 Unit/Ml 3 Ml Vial) 0 unit SUBCUT QIDACHS [facility]; Protocol Last Admin: 05/04/22 20:22 Dose: Not Given Documented By: YUDI Non-Admin Reason: Patient Refused Melatonin (Melatonin 3 Mg Tablet) 6 mg PO BEDTIME PRN PRN Reason: Insomnia Last Admin: 05/03/22 20:32 Dose: 6 mg Documented By: SHARONILScooby Metformin HCl (Metformin Hcl 500 Mg Tablet) 500 mg PO BIDWM [facility] Last Admin: 05/04/22 16:57 Dose: 500 mg Documented By: ATIF Neomycin/Polymyxin/Hydrocortisone (Neomycin/Polymyxin/Hc Otic Melanie 10 Ml Drpbtl) 3 drop EAR-RIGHT QID [facility] Last Admin: 05/04/22 20:21 Dose: Not Given Documented By: YUDI Non-Admin Reason: Patient Refused Olanzapine (Olanzapine Odt 10 Mg Tab.Rapdis) 5 mg TRANSLINGU BID PRN PRN Reason: agitation, psychosis Last Admin: 03/15/22 19:48 Dose: 5 mg Documented By: GENIE Omeprazole (Omeprazole 20 Mg Capsule.Dr) 20 mg PO DAILY@0630 [facility] Last Admin: 05/05/22 06:22 Dose: Not Given Documented By: YUDI Non-Admin Reason: Patient Refused Senna (Sennosides 8.6 Mg Tablet) 17.2 mg PO BEDTIME PRN PRN Reason: Constipation Sildenafil Citrate (Sildenafil Citrate 20 Mg Tablet) 20 mg PO TID [facility] Last Admin: 05/04/22 20:20 Dose: 20 mg Documented By: YUDI Sitagliptin Phosphate (Sitagliptin Phosphate 100 Mg Tablet) 100 mg PO DAILY [facility] Last Admin: 05/04/22 07:47 Dose: 100 mg Documented By: ATIF Sodium Chloride (0.9 % Sodium Chloride Flush 3 Ml Syringe) 3 ml IVFLUSH QSHIFT [facility] Last Admin: 05/04/22 21:05 Dose: Not Given Documented By: YUDI Non-Admin Reason: no access Labs CBC & Chem 7: 04/23/22 07:52 05/03/22 09:40 Labs: Laboratory Results - last 24 hr 05/04/22 05/04/22 05/04/22 11:12 15:38 20:11 POC Glucose 164 H 148 H 199 H 05/05/22 07:56 POC Glucose 152 H Assessment and Plan (1) Pulmonary hypertension: Status: Acute Plan 61-year-old male with a past medical history of schizophrenia, CHF, asthma/COPD, diabetes, hyperlipidemia [facility] with a chief complaint of acute hypoxia. Noted to have following conditions essentially no new issues No further episodes of elopement, continue close observation, Camera in room Acute hypoxic respiratory failure on presentation suspected d/t COPD/asthma/CHF. Resolved Acute asthma/COPD, chronic intermittent No acute symptoms, continue bronchodilator, Patient has no formal diagnosis. Patient is supposed to be following up with pulmonology as outpatient. He had similar presentation in December 2021. Pulmonary HTN Asymptomatic, continue Viagra, outpatient follow up Heart failure with preserved ejection fraction EF 55 to 60,no acute exacerbation, continue oral Lasix 40 bid Diabetes/hyperglycemia blood sugars in acceptable range continue lantus, SSI, metformin and Sitagliptin schizoaffective disorder Continue home Depakote, haloperidol DVT prophylaxis: Lovenox Code status: Full code. Confirmed with the patient's guardian [employer] proxy invoked. Lacks capacity for medical decision, awaiting permanent placement Need for inpatient : awaiting ,placement \ out of bed,ambulate with supervision Quality Stroke Does the patient have a stroke diagnosis?: No VTE Prior VTE?: No VTE Risk Level:: Medical - moderate - high VTE Device Contraindication: Treatment Not Indicated VTE Drug Contraindication: N/A - Med Ordered
[2022-05-05] MEDS: Ferrous Sulfate 324 MG TABLET.DR PO ×2 (15:18→19:37)
[2022-05-05] MEDS: Atorvastatin Calcium 40 MG TABLET PO (15:18)
[2022-05-05] MEDS: Furosemide 40 MG TABLET PO (15:19)
[2022-05-05] MEDS: HaloperidoL 5 MG TABLET 10 MG PO ×2 (15:19→19:36)
[2022-05-05] MEDS: Divalproex Sodium ER 500 MG TAB.ER.24H PO (15:19)
[2022-05-05] MEDS: SITagliptin Phosphate 100 MG TABLET PO (15:19)
[2022-05-05] MEDS: Sildenafil Citrate 20 MG TABLET PO ×2 (15:19→19:36)
--- NOTE | 2022-05-05 16:02 | PC.NURSE ---
Patient refused all AM meds and POC. Dr. Angel made aware and talked to pt in afternoon, pt agreed to take meds but is still refusing POC.
[2022-05-05 16:05] VITALS: BP 97/62; PULSE 60; RESP 18; TEMP 36; O2SAT 95
[2022-05-05 16:15] LABS: Glucose, Whole Blood 154 mg/dL (60-115)
[2022-05-05] MEDS: Insulin Lispro 100 UNIT/ML 3 ML VIAL SUBCUT (16:47)
[2022-05-05] MEDS: metFORMIN HCl 500 MG TABLET PO (18:08)
[2022-05-05] MEDS: Insulin Glargine,Hum.rec.anlog 100 UNIT/ML 10 ML VIAL 10 UNIT SUBCUT (20:07)
[2022-05-05 20:08] LABS: Glucose, Whole Blood 119 mg/dL (60-115)
[2022-05-06] VITALS: BP 118/69; PULSE 62; RESP 18; TEMP 36.4; O2SAT 95
--- NOTE | 2022-05-06 09:32 | P.PNIM_ITS ---
Subjective Subjective Date of Service: 05/06/22 Interval History: Seen and examined this morning Follow-up for placement No overnight events No specific complaints this morning,his refusing to take meds and sugar check Review of Systems no sob no fever Physical Exam Vital Signs: Vital Signs: Last Vital Signs Temp 97.6 F 05/06/22 00:00 Pulse 62 05/06/22 00:00 Resp 18 05/06/22 00:00 BP 118/69 05/06/22 00:00 Pulse Ox 95 05/06/22 00:00 O2 Del Method 05/06/22 00:00 O2 Flow Rate 2 02/16/22 07:18 FiO2 94 02/13/22 15:38 BMI result Body Mass Index 21.8 Objective Data Active Medications Acetaminophen (Acetaminophen 325 Mg Tablet) 650 mg PO Q6H PRN PRN Reason: Pain, Mild (Pain Scale 1-3) Atorvastatin Calcium (Atorvastatin Calcium 40 Mg Tablet) 40 mg PO DAILY [facility] Last Admin: 05/05/22 15:18 Dose: 40 mg Documented By: ALEC Dextrose (Dextrose 50 % 25 Gm/50 Ml Syringe) 25 gm IVPUSH Q15M PRN; Protocol PRN Reason: per Hypoglycemia Standing Ord. Divalproex Sodium (Divalproex Sodium Er 250 Mg Tab.Er.24h) 250 mg PO DAILY@1700 [facility] Last Admin: 05/05/22 17:12 Dose: Not Given Documented By: ALEC Non-Admin Reason: previous dose given late Divalproex Sodium (Divalproex Sodium Er 500 Mg Tab.Er.24h) 500 mg PO DAILY [facility] Last Admin: 05/05/22 15:19 Dose: 500 mg Documented By: ALEC Ferrous Sulfate (Ferrous Sulfate 324 Mg Tablet.Dr) 324 mg PO BID [facility] Last Admin: 05/05/22 19:37 Dose: 324 mg Documented By: NELSY Fluticasone Propionate (Fluticasone Propionate Nasal 16 Gm [place]) 1 spray NOSTRIL-B BID [facility] Last Admin: 05/05/22 19:59 Dose: Not Given Documented By: NELSY Non-Admin Reason: Patient Refused Furosemide (Furosemide 40 Mg Tablet) 40 mg PO BID@0900,1800 [facility]; Protocol Glucose (Glucose Gel 15 Gm Gel..Gram.) 15 gm PO Q15M PRN; Protocol PRN Reason: per Hypoglycemia Standing Ord. Haloperidol (Haloperidol 5 Mg Tablet) 10 mg PO BID [facility] Last Admin: 05/05/22 19:36 Dose: 10 mg Documented By: NELSY Comments: pt yusuf ltake pills now Insulin Glargine (Insulin Glargine,Hum.Rec.Anlog 100 Unit/Ml 10 Ml Vial) 10 unit SUBCUT BEDTIME [facility] Last Admin: 05/05/22 20:07 Dose: 10 unit Documented By: NELSY Insulin Human Lispro (Insulin Lispro 100 Unit/Ml 3 Ml Vial) 0 unit SUBCUT QIDACHS [facility]; Protocol Last Admin: 05/06/22 08:09 Dose: Not Given Documented By: ALEC Non-Admin Reason: Patient Refused Melatonin (Melatonin 3 Mg Tablet) 6 mg PO BEDTIME PRN PRN Reason: Insomnia Last Admin: 05/03/22 20:32 Dose: 6 mg Documented By: CASTILScooby Metformin HCl (Metformin Hcl 500 Mg Tablet) 500 mg PO BIDWM [facility] Last Admin: 05/05/22 18:08 Dose: 500 mg Documented By: ALEC Neomycin/Polymyxin/Hydrocortisone (Neomycin/Polymyxin/Hc Otic Melanie 10 Ml Drpbtl) 3 drop EAR-RIGHT QID [facility] Last Admin: 05/05/22 20:01 Dose: Not Given Documented By: NELSY Non-Admin Reason: Patient Refused Olanzapine (Olanzapine Odt 10 Mg Tab.Rapdis) 5 mg TRANSLINGU BID PRN PRN Reason: agitation, psychosis Last Admin: 03/15/22 19:48 Dose: 5 mg Documented By: GENIE Omeprazole (Omeprazole 20 Mg Capsule.Dr) 20 mg PO DAILY@0630 [facility] Last Admin: 05/06/22 07:17 Dose: Not Given Documented By: NELSY Non-Admin Reason: Patient Refused Senna (Sennosides 8.6 Mg Tablet) 17.2 mg PO BEDTIME PRN PRN Reason: Constipation Sildenafil Citrate (Sildenafil Citrate 20 Mg Tablet) 20 mg PO TID [facility] Last Admin: 05/05/22 19:36 Dose: 20 mg Documented By: NELSY Sitagliptin Phosphate (Sitagliptin Phosphate 100 Mg Tablet) 100 mg PO DAILY [facility] Last Admin: 05/05/22 15:19 Dose: 100 mg Documented By: ALEC Sodium Chloride (0.9 % Sodium Chloride Flush 3 Ml Syringe) 3 ml IVFLUSH QSHIFT [facility] Last Admin: 05/06/22 08:09 Dose: Not Given Documented By: ALEC Non-Admin Reason: No Access Labs CBC & Chem 7: 04/23/22 07:52 05/03/22 09:40 Labs: Laboratory Results - last 24 hr 05/05/22 05/05/22 16:08 19:30 POC Glucose 154 H 119 H Assessment and Plan (1) Pulmonary hypertension: Status: Acute Plan 61-year-old male with a past medical history of schizophrenia, CHF, asthma/COPD, diabetes, hyperlipidemia [facility] with a chief complaint of acute hypoxia. Noted to have following conditions essentially no new issues No further episodes of elopement, continue close observation, Camera in room Acute hypoxic respiratory failure on presentation suspected d/t COPD/asthma/CHF. Resolved Acute asthma/COPD, chronic intermittent No acute symptoms, continue bronchodilator, Patient has no formal diagnosis. Patient is supposed to be following up with pulmonology as outpatient. He had similar presentation in December 2021. Pulmonary HTN Asymptomatic, continue Viagra, outpatient follow up Heart failure with preserved ejection fraction EF 55 to 60,no acute exacerbation, continue oral Lasix 40 bid Diabetes/hyperglycemia blood sugars in acceptable range continue lantus, SSI, metformin and Sitagliptin schizoaffective disorder Continue home Depakote, haloperidol DVT prophylaxis: Lovenox Code status: Full code. Confirmed with the patient's guardian [employer] proxy invoked. Lacks capacity for medical decision, awaiting permanent placement Need for inpatient : awaiting ,placement out of bed,ambulate with supervision Quality Stroke Does the patient have a stroke diagnosis?: No VTE Prior VTE?: No VTE Risk Level:: Medical - moderate - high VTE Device Contraindication: Treatment Not Indicated VTE Drug Contraindication: N/A - Med Ordered
[2022-05-06] MEDS: Ferrous Sulfate 324 MG TABLET.DR PO ×2 (12:58→20:12)
[2022-05-06] MEDS: Sildenafil Citrate 20 MG TABLET PO ×3 (12:58→20:11)
[2022-05-06] MEDS: Furosemide 40 MG TABLET PO ×2 (12:58→20:11)
[2022-05-06] MEDS: Divalproex Sodium ER 500 MG TAB.ER.24H PO (12:58)
[2022-05-06] MEDS: Atorvastatin Calcium 40 MG TABLET PO (12:59)
[2022-05-06] MEDS: SITagliptin Phosphate 100 MG TABLET PO (12:59)
[2022-05-06] MEDS: HaloperidoL 5 MG TABLET 10 MG PO ×2 (12:59→20:11)
[2022-05-06 16:01] VITALS: BP 110/74; PULSE 56; RESP 18; TEMP 36.2; O2SAT 95
[2022-05-06 16:11] LABS: Glucose, Whole Blood 99 mg/dL (60-115)
[2022-05-06] MEDS: Divalproex Sodium ER 250 MG TAB.ER.24H PO (17:58)
[2022-05-06] MEDS: metFORMIN HCl 500 MG TABLET PO (17:58)
[2022-05-06 19:57] LABS: Glucose, Whole Blood 143 mg/dL (60-115)
[2022-05-06] MEDS: Melatonin 3 MG TABLET 6 MG PO (20:12)
[2022-05-07 06:44] VITALS: BP 113/64; PULSE 70; RESP 18; TEMP 36.1; O2SAT 96
[2022-05-07 07:06] LABS: Glucose, Whole Blood 126 mg/dL (60-115)
[2022-05-07] MEDS: HaloperidoL 5 MG TABLET 10 MG PO ×2 (07:30→19:50)
[2022-05-07] MEDS: SITagliptin Phosphate 100 MG TABLET PO (07:30)
[2022-05-07] MEDS: Divalproex Sodium ER 500 MG TAB.ER.24H PO (07:30)
[2022-05-07] MEDS: Ferrous Sulfate 324 MG TABLET.DR PO ×2 (07:30→19:51)
[2022-05-07] MEDS: metFORMIN HCl 500 MG TABLET PO ×2 (07:30→16:30)
[2022-05-07] MEDS: Furosemide 40 MG TABLET PO ×2 (07:30→16:30)
[2022-05-07] MEDS: Atorvastatin Calcium 40 MG TABLET PO (07:30)
[2022-05-07] MEDS: Sildenafil Citrate 20 MG TABLET PO ×3 (07:30→19:51)
--- NOTE | 2022-05-07 08:53 | MHC.CM.PN ---
Addendum entered by Rima Leon RN 05/07/22 11:27: CM RECEIVED MESSAGE BACK FROM [facility] AND [facility] REPOR[facility] THEY ARE STILL REVIEWING AND WILL GET BACK TO CM. Original Note: EMR REVIEWED, ON 05/04 UPDATED CLINICALS SENT TO [facility] AND THEY REPORTED THEY WILL REVIEW, CM SENT [facility] A MESSAGE VIA [employer] TO DETERMINE STATUS OF REVIEW, CM AWAITING RESPONSE AND WILL CONT TO FOLLOW.
[2022-05-07 11:25] LABS: Glucose, Whole Blood 108 mg/dL (60-115)
--- NOTE | 2022-05-07 11:25 | P.PNIM_ITS ---
Subjective Subjective Date of Service: 05/07/22 Interval History: Seen and examined this morning Follow-up for placement No overnight events No specific complaints this morning, he is cooperating this morning Review of Systems no sob no fever Physical Exam Vital Signs: Vital Signs: Last Vital Signs Temp 97 F 05/07/22 06:44 Pulse 70 05/07/22 06:44 Resp 18 05/07/22 06:44 BP 113/64 05/07/22 06:44 Pulse Ox 96 05/07/22 06:44 O2 Del Method 05/07/22 06:44 O2 Flow Rate 2 02/16/22 07:18 FiO2 94 02/13/22 15:38 BMI result Body Mass Index 21.8 Const: Other: General: AO X 2 (self, place), no acute distress Resp: CTA bilateral CVS: S1,S2,RRR GI: +BS, NT, no distention Skin: No rash Neuro: motor grossly intact Psych: flat affect Objective Data Active Medications Acetaminophen (Acetaminophen 325 Mg Tablet) 650 mg PO Q6H PRN PRN Reason: Pain, Mild (Pain Scale 1-3) Atorvastatin Calcium (Atorvastatin Calcium 40 Mg Tablet) 40 mg PO DAILY [facility] Last Admin: 05/07/22 07:30 Dose: 40 mg Documented By: BRENNON Dextrose (Dextrose 50 % 25 Gm/50 Ml Syringe) 25 gm IVPUSH Q15M PRN; Protocol PRN Reason: per Hypoglycemia Standing Ord. Divalproex Sodium (Divalproex Sodium Er 250 Mg Tab.Er.24h) 250 mg PO DAILY@1700 [facility] Last Admin: 05/06/22 17:58 Dose: 250 mg Documented By: ALEC Divalproex Sodium (Divalproex Sodium Er 500 Mg Tab.Er.24h) 500 mg PO DAILY [facility] Last Admin: 05/07/22 07:30 Dose: 500 mg Documented By: BRENNON Ferrous Sulfate (Ferrous Sulfate 324 Mg Tablet.Dr) 324 mg PO BID [facility] Last Admin: 05/07/22 07:30 Dose: 324 mg Documented By: BRENNON Fluticasone Propionate (Fluticasone Propionate Nasal 16 Gm [place]) 1 spray NOSTRIL-B BID [facility] Last Admin: 05/07/22 07:31 Dose: Not Given Documented By: BRENNON Non-Admin Reason: Patient Refused Furosemide (Furosemide 40 Mg Tablet) 40 mg PO BID@0900,1800 [facility]; Protocol Last Admin: 05/07/22 07:30 Dose: 40 mg Documented By: BRENNON Glucose (Glucose Gel 15 Gm Gel..Gram.) 15 gm PO Q15M PRN; Protocol PRN Reason: per Hypoglycemia Standing Ord. Haloperidol (Haloperidol 5 Mg Tablet) 10 mg PO BID [facility] Last Admin: 05/07/22 07:30 Dose: 10 mg Documented By: BRENNON Insulin Glargine (Insulin Glargine,Hum.Rec.Anlog 100 Unit/Ml 10 Ml Vial) 10 unit SUBCUT BEDTIME [facility] Last Admin: 05/06/22 20:16 Dose: Not Given Documented By: ANA Non-Admin Reason: Patient Refused Insulin Human Lispro (Insulin Lispro 100 Unit/Ml 3 Ml Vial) 0 unit SUBCUT QIDACHS [facility]; Protocol Last Admin: 05/07/22 11:22 Dose: Not Given Documented By: BRENNON Non-Admin Reason: No Insulin Coverage Melatonin (Melatonin 3 Mg Tablet) 6 mg PO BEDTIME PRN PRN Reason: Insomnia Last Admin: 05/06/22 20:12 Dose: 6 mg Documented By: ANA Metformin HCl (Metformin Hcl 500 Mg Tablet) 500 mg PO BIDWM [facility] Last Admin: 05/07/22 07:30 Dose: 500 mg Documented By: BRENNON Neomycin/Polymyxin/Hydrocortisone (Neomycin/Polymyxin/Hc Otic Melanie 10 Ml Drpbtl) 3 drop EAR-RIGHT QID [facility] Last Admin: 05/07/22 08:16 Dose: Not Given Documented By: BRENNON Non-Admin Reason: Patient Refused Olanzapine (Olanzapine Odt 10 Mg Tab.Rapdis) 5 mg TRANSLINGU BID PRN PRN Reason: agitation, psychosis Last Admin: 03/15/22 19:48 Dose: 5 mg Documented By: GENIE Omeprazole (Omeprazole 20 Mg Capsule.Dr) 20 mg PO DAILY@0630 [facility] Last Admin: 05/07/22 05:47 Dose: Not Given Documented By: ANA Non-Admin Reason: Patient Refused Senna (Sennosides 8.6 Mg Tablet) 17.2 mg PO BEDTIME PRN PRN Reason: Constipation Sildenafil Citrate (Sildenafil Citrate 20 Mg Tablet) 20 mg PO TID [facility] Last Admin: 05/07/22 07:30 Dose: 20 mg Documented By: BRENNON Sitagliptin Phosphate (Sitagliptin Phosphate 100 Mg Tablet) 100 mg PO DAILY [facility] Last Admin: 05/07/22 07:30 Dose: 100 mg Documented By: BRENNON Sodium Chloride (0.9 % Sodium Chloride Flush 3 Ml Syringe) 3 ml IVFLUSH QSHIFT [facility] Last Admin: 05/07/22 07:31 Dose: Not Given Documented By: BRENNON Non-Admin Reason: No Access Labs CBC & Chem 7: 04/23/22 07:52 05/03/22 09:40 Labs: Laboratory Results - last 24 hr 05/06/22 05/06/22 05/07/22 16:05 19:53 06:42 POC Glucose 99 143 H 126 H Assessment and Plan (1) Pulmonary hypertension: Status: Acute Plan 61-year-old male with a past medical history of schizophrenia, CHF, asthma/COPD, diabetes, hyperlipidemia presented from the [facility] with a chief complaint of acute hypoxia. Noted to have following conditions essentially no new issues No further episodes of elopement, continue close observation, Camera in room Acute hypoxic respiratory failure on presentation suspected d/t COPD/asthma/CHF. Resolved Acute asthma/COPD, chronic intermittent No acute symptoms, continue bronchodilator, Patient has no formal diagnosis. Patient is supposed to be following up with pulmonology as outpatient. He had similar presentation in December 2021. Pulmonary HTN Asymptomatic, continue Viagra, outpatient follow up Heart failure with preserved ejection fraction EF 55 to 60,no acute exacerbation, continue oral Lasix 40 bid Diabetes/hyperglycemia blood sugars in acceptable range continue lantus, SSI, metformin and Sitagliptin schizoaffective disorder Continue home Depakote, haloperidol DVT prophylaxis: Lovenox Code status: Full code. Confirmed with the patient's guardian [employer] proxy invoked. Lacks capacity for medical decision, awaiting permanent placement Need for inpatient : awaiting ,placement out of bed,ambulate with supervision Quality Stroke Does the patient have a stroke diagnosis?: No VTE Prior VTE?: No VTE Risk Level:: Medical - moderate - high VTE Device Contraindication: Treatment Not Indicated VTE Drug Contraindication: N/A - Med Ordered
[2022-05-07 15:45] VITALS: BP 113/68; PULSE 77; RESP 18; TEMP 37; O2SAT 98
[2022-05-07 15:51] LABS: Glucose, Whole Blood 151 mg/dL (60-115)
[2022-05-07] MEDS: Divalproex Sodium ER 250 MG TAB.ER.24H PO (16:30)
[2022-05-07 20:00] LABS: Glucose, Whole Blood 145 mg/dL (60-115)
[2022-05-08 07:26] LABS: Glucose, Whole Blood 153 mg/dL (60-115)
[2022-05-08] MEDS: Atorvastatin Calcium 40 MG TABLET PO (08:06)
[2022-05-08] MEDS: Sildenafil Citrate 20 MG TABLET PO (08:06)
[2022-05-08] MEDS: HaloperidoL 5 MG TABLET 10 MG PO (08:06)
[2022-05-08] MEDS: Ferrous Sulfate 324 MG TABLET.DR PO (08:06)
[2022-05-08] MEDS: Divalproex Sodium ER 500 MG TAB.ER.24H PO (08:06)
[2022-05-08] MEDS: SITagliptin Phosphate 100 MG TABLET PO (08:07)
[2022-05-08] MEDS: metFORMIN HCl 500 MG TABLET PO (08:07)
[2022-05-08] MEDS: Furosemide 40 MG TABLET PO (08:07)
[2022-05-08 08:30] VITALS: BP 108/64
[2022-05-08 12:05] LABS: Glucose, Whole Blood 145 mg/dL (60-115)
--- NOTE | 2022-05-08 14:31 | P.PNIM_ITS ---
Subjective Subjective Date of Service: 05/08/22 Interval History: Follow-up for placement Review of Systems No overnight events No new complaints Physical Exam Vital Signs: Vital Signs: Last Vital Signs Temp 98.6 F 05/07/22 15:45 Pulse 77 05/07/22 15:45 Resp 18 05/07/22 15:45 BP 113/68 05/07/22 15:45 Pulse Ox 98 05/07/22 15:45 O2 Del Method 05/07/22 15:45 O2 Flow Rate 2 02/16/22 07:18 FiO2 94 02/13/22 15:38 BMI result Body Mass Index 21.8 General: AO X 2 (self, place), no acute distress Resp:? CTA bilateral CVS: S1,S2,RRR GI: +BS, NT, no distention Skin: No rash Neuro:? motor grossly intact Psych: flat affect Objective Data Active Medications Acetaminophen (Acetaminophen 325 Mg Tablet) 650 mg PO Q6H PRN PRN Reason: Pain, Mild (Pain Scale 1-3) Atorvastatin Calcium (Atorvastatin Calcium 40 Mg Tablet) 40 mg PO DAILY [facility] Last Admin: 05/08/22 08:06 Dose: 40 mg Documented By: BRENNON Dextrose (Dextrose 50 % 25 Gm/50 Ml Syringe) 25 gm IVPUSH Q15M PRN; Protocol PRN Reason: per Hypoglycemia Standing Ord. Divalproex Sodium (Divalproex Sodium Er 250 Mg Tab.Er.24h) 250 mg PO DAILY@1700 [facility] Last Admin: 05/07/22 16:30 Dose: 250 mg Documented By: BRENNON Divalproex Sodium (Divalproex Sodium Er 500 Mg Tab.Er.24h) 500 mg PO DAILY [facility] Last Admin: 05/08/22 08:06 Dose: 500 mg Documented By: BRENNON Ferrous Sulfate (Ferrous Sulfate 324 Mg Tablet.Dr) 324 mg PO BID [facility] Last Admin: 05/08/22 08:06 Dose: 324 mg Documented By: BRENNON Fluticasone Propionate (Fluticasone Propionate Nasal 16 Gm [place]) 1 spray NOSTRIL-B BID [facility] Last Admin: 05/08/22 08:47 Dose: Not Given Documented By: BRENNON Non-Admin Reason: Patient Refused Furosemide (Furosemide 40 Mg Tablet) 40 mg PO BID@0900,1800 [facility]; Protocol Last Admin: 05/08/22 08:07 Dose: 40 mg Documented By: BRENNON Glucose (Glucose Gel 15 Gm Gel..Gram.) 15 gm PO Q15M PRN; Protocol PRN Reason: per Hypoglycemia Standing Ord. Haloperidol (Haloperidol 5 Mg Tablet) 10 mg PO BID [facility] Last Admin: 05/08/22 08:06 Dose: 10 mg Documented By: BRENNON Insulin Glargine (Insulin Glargine,Hum.Rec.Anlog 100 Unit/Ml 10 Ml Vial) 10 unit SUBCUT BEDTIME [facility] Last Admin: 05/07/22 19:54 Dose: Not Given Documented By: ANA Non-Admin Reason: Patient Refused Insulin Human Lispro (Insulin Lispro 100 Unit/Ml 3 Ml Vial) 0 unit SUBCUT QIDACHS [facility]; Protocol Last Admin: 05/08/22 11:27 Dose: Not Given Documented By: BRENNON Non-Admin Reason: No Insulin Coverage Melatonin (Melatonin 3 Mg Tablet) 6 mg PO BEDTIME PRN PRN Reason: Insomnia Last Admin: 05/06/22 20:12 Dose: 6 mg Documented By: ANA Metformin HCl (Metformin Hcl 500 Mg Tablet) 500 mg PO BIDWM [facility] Last Admin: 05/08/22 08:07 Dose: 500 mg Documented By: BRENNON Neomycin/Polymyxin/Hydrocortisone (Neomycin/Polymyxin/Hc Otic [place] 10 Ml Drpbtl) 3 drop EAR-RIGHT QID [facility] Last Admin: 05/08/22 13:03 Dose: Not Given Documented By: BRENNON Non-Admin Reason: Patient Refused Olanzapine (Olanzapine Odt 10 Mg Tab.Rapdis) 5 mg TRANSLINGU BID PRN PRN Reason: agitation, psychosis Last Admin: 03/15/22 19:48 Dose: 5 mg Documented By: GENIE Omeprazole (Omeprazole 20 Mg Capsule.Dr) 20 mg PO DAILY@0630 [facility] Last Admin: 05/08/22 05:14 Dose: Not Given Documented By: ANA Non-Admin Reason: Patient Refused Senna (Sennosides 8.6 Mg Tablet) 17.2 mg PO BEDTIME PRN PRN Reason: Constipation Sildenafil Citrate (Sildenafil Citrate 20 Mg Tablet) 20 mg PO TID [facility] Last Admin: 05/08/22 08:06 Dose: 20 mg Documented By: BRENNON Sitagliptin Phosphate (Sitagliptin Phosphate 100 Mg Tablet) 100 mg PO DAILY [facility] Last Admin: 05/08/22 08:07 Dose: 100 mg Documented By: BRENNON Labs CBC & Chem 7: 04/23/22 07:52 05/03/22 09:40 Labs: Laboratory Results - last 24 hr 05/07/22 05/07/22 05/08/22 15:44 19:08 07:14 POC Glucose 151 H 145 H 153 H 05/08/22 11:15 POC Glucose 145 H Assessment and Plan (1) Schizo affective schizophrenia: Status: Acute Plan 61-year-old male with a past medical history of schizophrenia, CHF, asthma/COPD, diabetes, hyperlipidemia presented [facility] with a chief complaint of acute hypoxia. Noted to have following conditions essentially no new issues No further episodes of elopement, continue close observation, Camera in room Acute hypoxic respiratory failure on presentation suspected d/t COPD/asthma/CHF. Resolved Acute asthma/COPD, chronic intermittent No acute symptoms, continue bronchodilator, Patient has no formal diagnosis.? Patient is supposed to be following up with pulmonology as outpatient.? He? had similar presentation in December 2021. Pulmonary HTN Asymptomatic,? continue Viagra, outpatient follow up Heart failure with preserved ejection fraction EF 55 to 60,no acute exacerbation, continue oral Lasix 40 bid Diabetes/hyperglycemia blood sugars? in acceptable range continue lantus,? SSI, metformin and Sitagliptin schizoaffective disorder Continue home Depakote, haloperidol DVT prophylaxis:? Lovenox Code status: Full code.? Confirmed with the patient's guardian [employer] proxy invoked. Lacks capacity for medical decision, awaiting permanent placement. out of bed,ambulate with supervision. Need for inpatient : awaiting ,placement Quality Stroke Does the patient have a stroke diagnosis?: No VTE Prior VTE?: No VTE Risk Level:: Medical - moderate - high VTE Device Contraindication: Treatment Not Indicated VTE Drug Contraindication: N/A - Med Ordered
[2022-05-08 15:14] VITALS: BP 105/56; PULSE 86; RESP 19; TEMP 36.7; O2SAT 96
[2022-05-08 15:35] LABS: Glucose, Whole Blood 188 mg/dL (60-115)
[2022-05-08 19:05] LABS: Glucose, Whole Blood 155 mg/dL (60-115)
[2022-05-09 07:50] VITALS: BP 107/57; PULSE 58; RESP 18; TEMP 36.6; O2SAT 95
[2022-05-09] MEDS: Atorvastatin Calcium 40 MG TABLET PO (08:46)
[2022-05-09] MEDS: HaloperidoL 5 MG TABLET 10 MG PO ×2 (08:46→20:35)
[2022-05-09] MEDS: Sildenafil Citrate 20 MG TABLET PO ×3 (08:47→20:35)
[2022-05-09] MEDS: Furosemide 40 MG TABLET PO ×2 (08:47→17:17)
[2022-05-09] MEDS: Divalproex Sodium ER 500 MG TAB.ER.24H PO (08:47)
[2022-05-09] MEDS: metFORMIN HCl 500 MG TABLET PO ×2 (08:47→17:17)
[2022-05-09] MEDS: Ferrous Sulfate 324 MG TABLET.DR PO ×2 (08:47→20:35)
[2022-05-09] MEDS: SITagliptin Phosphate 100 MG TABLET PO (08:47)
--- NOTE | 2022-05-09 14:34 | MHC.CM.PN ---
CM CONTACTED LIAISON AT [facility] PER HER REQUEST AT 2:35PM, ARNOLDO REPORTS THAT REVIEWER SCOTT BELIEVES PT'S ISSUES ARE PSYCHIATRIC NOT D/T DEMENTIA AND STILL DOES NOT SEE A CLINICAL NEED FOR PT'S ADMISSION AND REQUESTED SOMEONE FROM [facility] [place] SPEAK W/HER. CM ALSO ATTEMPTED TO CONTACT INTAKE AT [facility] AT 2:30PM TO SEE IF THEY HAD ANY OPEN BEDS, NO ANSWER AND MESSAGE LEFT W/CM CONTACT NUMBER.
--- NOTE | 2022-05-09 14:40 | P.PNIM_ITS ---
Subjective Subjective Date of Service: 05/09/22 Interval History: Follow-up for placement Review of Systems No overnight events No new complaints Physical Exam Vital Signs: Vital Signs: Last Vital Signs Temp 97.8 F 05/09/22 07:50 Pulse 58 05/09/22 07:50 Resp 18 05/09/22 07:50 BP 107/57 L 05/09/22 07:50 Pulse Ox 95 05/09/22 07:50 O2 Del Method 05/09/22 07:50 O2 Flow Rate 2 02/16/22 07:18 FiO2 94 02/13/22 15:38 BMI result Body Mass Index 21.8 General: AO X 2 (self, place), no acute distress Resp:? CTA bilateral CVS: S1,S2,RRR GI: +BS, NT, no distention Skin: No rash Neuro:? motor grossly intact Psych: flat affect Objective Data Active Medications Acetaminophen (Acetaminophen 325 Mg Tablet) 650 mg PO Q6H PRN PRN Reason: Pain, Mild (Pain Scale 1-3) Atorvastatin Calcium (Atorvastatin Calcium 40 Mg Tablet) 40 mg PO DAILY [facility] Last Admin: 05/09/22 08:46 Dose: 40 mg Documented By: ATIF Dextrose (Dextrose 50 % 25 Gm/50 Ml Syringe) 25 gm IVPUSH Q15M PRN; Protocol PRN Reason: per Hypoglycemia Standing Ord. Divalproex Sodium (Divalproex Sodium Er 250 Mg Tab.Er.24h) 250 mg PO DAILY@1700 [facility] Last Admin: 05/08/22 16:59 Dose: Not Given Documented By: BRENNON Non-Admin Reason: Patient Refused Divalproex Sodium (Divalproex Sodium Er 500 Mg Tab.Er.24h) 500 mg PO DAILY [facility] Last Admin: 05/09/22 08:47 Dose: 500 mg Documented By: ATIF Ferrous Sulfate (Ferrous Sulfate 324 Mg Tablet.Dr) 324 mg PO BID [facility] Last Admin: 05/09/22 08:47 Dose: 324 mg Documented By: ATIF Fluticasone Propionate (Fluticasone Propionate Nasal 16 Gm [place]) 1 spray NOSTRIL-B BID [facility] Last Admin: 05/09/22 08:49 Dose: Not Given Documented By: ATIF Non-Admin Reason: Patient Refused Furosemide (Furosemide 40 Mg Tablet) 40 mg PO BID@0900,1800 [facility]; Protocol Last Admin: 05/09/22 08:47 Dose: 40 mg Documented By: ATIF Glucose (Glucose Gel 15 Gm Gel..Gram.) 15 gm PO Q15M PRN; Protocol PRN Reason: per Hypoglycemia Standing Ord. Haloperidol (Haloperidol 5 Mg Tablet) 10 mg PO BID [facility] Last Admin: 05/09/22 08:46 Dose: 10 mg Documented By: ATIF Insulin Glargine (Insulin Glargine,Hum.Rec.Anlog 100 Unit/Ml 10 Ml Vial) 10 unit SUBCUT BEDTIME [facility] Last Admin: 05/08/22 20:13 Dose: Not Given Documented By: ESTELLE Non-Admin Reason: Patient Refused Insulin Human Lispro (Insulin Lispro 100 Unit/Ml 3 Ml Vial) 0 unit SUBCUT QIDACHS [facility]; Protocol Last Admin: 05/09/22 11:41 Dose: Not Given Documented By: ATIF Non-Admin Reason: Patient Refused Melatonin (Melatonin 3 Mg Tablet) 6 mg PO BEDTIME PRN PRN Reason: Insomnia Last Admin: 05/06/22 20:12 Dose: 6 mg Documented By: ANA Metformin HCl (Metformin Hcl 500 Mg Tablet) 500 mg PO BIDWM [facility] Last Admin: 05/09/22 08:47 Dose: 500 mg Documented By: ATIF Neomycin/Polymyxin/Hydrocortisone (Neomycin/Polymyxin/Hc Otic Melanie 10 Ml Drpbtl) 3 drop EAR-RIGHT QID [facility] Last Admin: 05/09/22 14:09 Dose: Not Given Documented By: ATIF Non-Admin Reason: Patient Refused Olanzapine (Olanzapine Odt 10 Mg Tab.Rapdis) 5 mg TRANSLINGU BID PRN PRN Reason: agitation, psychosis Last Admin: 03/15/22 19:48 Dose: 5 mg Documented By: GENIE Omeprazole (Omeprazole 20 Mg Capsule.Dr) 20 mg PO DAILY@0630 [facility] Last Admin: 05/09/22 05:34 Dose: Not Given Documented By: ESTELLE Non-Admin Reason: Patient Refused Senna (Sennosides 8.6 Mg Tablet) 17.2 mg PO BEDTIME PRN PRN Reason: Constipation Sildenafil Citrate (Sildenafil Citrate 20 Mg Tablet) 20 mg PO TID [facility] Last Admin: 05/09/22 08:47 Dose: 20 mg Documented By: ATIF Sitagliptin Phosphate (Sitagliptin Phosphate 100 Mg Tablet) 100 mg PO DAILY [facility] Last Admin: 05/09/22 08:47 Dose: 100 mg Documented By: ATIF Labs CBC & Chem 7: 04/23/22 07:52 05/03/22 09:40 Labs: Laboratory Results - last 24 hr 05/08/22 05/08/22 15:18 18:36 POC Glucose 188 H 155 H Assessment and Plan (1) Schizo affective schizophrenia: Status: Acute (2) Pulmonary hypertension: Status: Acute Plan 61-year-old male with a past medical history of schizophrenia, CHF, asthma/COPD, diabetes, hyperlipidemia presented from the [facility] with a chief complaint of acute hypoxia. Noted to have following conditions essentially no new issues No further episodes of elopement, continue close observation, Camera in room Acute hypoxic respiratory failure on presentation suspected d/t COPD/asthma/CHF. Resolved Acute asthma/COPD, chronic intermittent No acute symptoms, continue bronchodilator, Patient has no formal diagnosis.? Patient is supposed to be following up with pulmonology as outpatient.? He? had similar presentation in December 2021. Pulmonary HTN Asymptomatic,? continue Viagra, outpatient follow up Heart failure with preserved ejection fraction EF 55 to 60,no acute exacerbation, continue oral Lasix 40 bid Diabetes/hyperglycemia blood sugars? in acceptable range continue lantus,? SSI, metformin and Sitagliptin schizoaffective disorder Continue home Depakote, haloperidol DVT prophylaxis:? Lovenox Code status: Full code.? Confirmed with the patient's guardian [employer] proxy invoked. Lacks capacity for medical decision, awaiting permanent placement. out of bed,ambulate with supervision. Need for inpatient : awaiting ,placement Quality Stroke Does the patient have a stroke diagnosis?: No VTE Prior VTE?: No VTE Risk Level:: Medical - moderate - high VTE Device Contraindication: Treatment Not Indicated VTE Drug Contraindication: N/A - Med Ordered
[2022-05-09 15:34] LABS: Glucose, Whole Blood 117 mg/dL (60-115)
[2022-05-09 15:56] VITALS: BP 122/61; PULSE 77; RESP 18; TEMP 36.6; O2SAT 97
[2022-05-09] MEDS: Divalproex Sodium ER 250 MG TAB.ER.24H PO (17:17)
[2022-05-09 20:02] LABS: Glucose, Whole Blood 139 mg/dL (60-115)
[2022-05-09] MEDS: Insulin Glargine,Hum.rec.anlog 100 UNIT/ML 10 ML VIAL 10 UNIT SUBCUT (20:35)
[2022-05-10 09:24] LABS: Glucose, Whole Blood 149 mg/dL (60-115)
--- NOTE | 2022-05-10 10:25 | MHC.CM.PN ---
Addendum entered by Rima Leon, RN 05/10/22 16:08: YSABEL ALSO REPORTED PT COULD BE PLACED ON WAITING LIST IF THEY ARE UNABLE TO TAKE HIM AT THIS TIME. Original Note: CM CONTACTED NEW LIAISON YSABEL AT [facility] AT 10:15AM, YSABEL REQUESTED CM REFAX REFERRAL SHE COULD NOT LOCATE IT, REFERAL FAXED TO [phone], NO FINAL ANSWER FROM [facility].
--- NOTE | 2022-05-10 12:39 | HO.PM.IMPN ---
Subjective Subjective Date of Service: 05/10/22 Interval History: Follow-up for placement Review of Systems No overnight events No new complaints Physical Exam Vital Signs: Vital Signs: Last Vital Signs Temp 97.8 F 05/09/22 15:56 Pulse 77 05/09/22 15:56 Resp 18 05/09/22 15:56 BP 122/61 05/09/22 15:56 Pulse Ox 97 05/09/22 15:56 O2 Del Method 05/09/22 15:56 O2 Flow Rate 2 02/16/22 07:18 FiO2 94 02/13/22 15:38 BMI result Body Mass Index 21.8 ?General: AO X 2 (self, place), no acute distress Resp:? CTA bilateral CVS: S1,S2,RRR GI: +BS, NT, no distention Skin: No rash Neuro:? motor grossly intact Psych: flat affect Objective Data Active Medications Acetaminophen (Acetaminophen 325 Mg Tablet) 650 mg PO Q6H PRN PRN Reason: Pain, Mild (Pain Scale 1-3) Atorvastatin Calcium (Atorvastatin Calcium 40 Mg Tablet) 40 mg PO DAILY [facility] Last Admin: 05/10/22 09:03 Dose: Not Given Documented By: MANSOOR Non-Admin Reason: Patient Refused Dextrose (Dextrose 50 % 25 Gm/50 Ml Syringe) 25 gm IVPUSH Q15M PRN; Protocol PRN Reason: per Hypoglycemia Standing Ord. Divalproex Sodium (Divalproex Sodium Er 250 Mg Tab.Er.24h) 250 mg PO DAILY@1700 [facility] Last Admin: 05/09/22 17:17 Dose: 250 mg Documented By: ATIF Divalproex Sodium (Divalproex Sodium Er 500 Mg Tab.Er.24h) 500 mg PO DAILY [facility] Last Admin: 05/10/22 09:03 Dose: Not Given Documented By: MANSOOR Non-Admin Reason: Patient Refused Ferrous Sulfate (Ferrous Sulfate 324 Mg Tablet.) 324 mg PO BID [facility] Last Admin: 05/10/22 09:03 Dose: Not Given Documented By: MANSOOR Non-Admin Reason: Patient Refused Fluticasone Propionate (Fluticasone Propionate Nasal 16 Gm [place]) 1 spray NOSTRIL-B BID [facility] Last Admin: 05/10/22 09:03 Dose: Not Given Documented By: MANSOOR Non-Admin Reason: Patient Refused Furosemide (Furosemide 40 Mg Tablet) 40 mg PO BID@0900,1800 [facility]; Protocol Last Admin: 05/10/22 09:04 Dose: Not Given Documented By: MANSOOR Non-Admin Reason: Patient Refused Glucose (Glucose Gel 15 Gm Gel..Gram.) 15 gm PO Q15M PRN; Protocol PRN Reason: per Hypoglycemia Standing Ord. Haloperidol (Haloperidol 5 Mg Tablet) 10 mg PO BID [facility] Last Admin: 05/10/22 09:04 Dose: Not Given Documented By: MANSOOR Non-Admin Reason: Patient Refused Insulin Glargine (Insulin Glargine,Hum.Rec.Anlog 100 Unit/Ml 10 Ml Vial) 10 unit SUBCUT BEDTIME [facility] Last Admin: 05/09/22 20:35 Dose: 10 unit Documented By: TAY Insulin Human Lispro (Insulin Lispro 100 Unit/Ml 3 Ml Vial) 0 unit SUBCUT QIDACHS [facility]; Protocol Last Admin: 05/10/22 12:11 Dose: Not Given Documented By: MANSOOR Non-Admin Reason: PT REFUSED,MD AWARE Melatonin (Melatonin 3 Mg Tablet) 6 mg PO BEDTIME PRN PRN Reason: Insomnia Last Admin: 05/06/22 20:12 Dose: 6 mg Documented By: SHARONILScooby Metformin HCl (Metformin Hcl 500 Mg Tablet) 500 mg PO BIDWM [facility] Last Admin: 05/10/22 09:03 Dose: Not Given Documented By: MANSOOR Non-Admin Reason: Patient Refused Neomycin/Polymyxin/Hydrocortisone (Neomycin/Polymyxin/Hc Otic Melanie 10 Ml Drpbtl) 3 drop EAR-RIGHT QID [facility] Last Admin: 05/10/22 12:11 Dose: Not Given Documented By: MANSOOR Non-Admin Reason: Patient Refused Olanzapine (Olanzapine Odt 10 Mg Tab.Rapdis) 5 mg TRANSLINGU BID PRN PRN Reason: agitation, psychosis Last Admin: 03/15/22 19:48 Dose: 5 mg Documented By: GENIE Omeprazole (Omeprazole 20 Mg Capsule.) 20 mg PO DAILY@0630 [facility] Last Admin: 05/10/22 07:12 Dose: Not Given Documented By: TAY Non-Admin Reason: Patient Refused Senna (Sennosides 8.6 Mg Tablet) 17.2 mg PO BEDTIME PRN PRN Reason: Constipation Sildenafil Citrate (Sildenafil Citrate 20 Mg Tablet) 20 mg PO TID [facility] Last Admin: 05/10/22 09:04 Dose: Not Given Documented By: MANSOOR Non-Admin Reason: Patient Refused Sitagliptin Phosphate (Sitagliptin Phosphate 100 Mg Tablet) 100 mg PO DAILY [facility] Last Admin: 05/10/22 09:04 Dose: Not Given Documented By: MANSOOR Non-Admin Reason: Patient Refused Labs CBC & Chem 7: 04/23/22 07:52 05/03/22 09:40 Labs: Laboratory Results - last 24 hr 05/09/22 05/09/22 05/10/22 15:27 19:34 09:20 POC Glucose 117 H 139 H 149 H Assessment and Plan (1) Schizo affective schizophrenia: Status: Acute Plan 61-year-old male with a past medical history of schizophrenia, CHF, asthma/COPD, diabetes, hyperlipidemia presented from the care home with a chief complaint of acute hypoxia. Noted to have following conditions essentially no new issues No further episodes of elopement, continue close observation, Camera in room Acute hypoxic respiratory failure on presentation suspected d/t COPD/asthma/CHF. Resolved Acute asthma/COPD, chronic intermittent No acute symptoms, continue bronchodilator, Patient has no formal diagnosis.? Patient is supposed to be following up with pulmonology as outpatient.? He? had similar presentation in December 2021. Pulmonary HTN Asymptomatic,? continue Viagra, outpatient follow up Heart failure with preserved ejection fraction EF 55 to 60,no acute exacerbation, continue oral Lasix 40 bid Diabetes/hyperglycemia blood sugars? in acceptable range continue lantus,? SSI, metformin and Sitagliptin schizoaffective disorder Continue home Depakote, haloperidol DVT prophylaxis:? Lovenox Code status: Full code.? Confirmed with the patient's guardian [facility] proxy invoked. Lacks capacity for medical decision, awaiting permanent placement. out of bed,ambulate with supervision. Need for inpatient : awaiting ,placement Quality Stroke Does the patient have a stroke diagnosis?: No VTE Prior VTE?: No VTE Risk Level:: Medical - moderate - high VTE Device Contraindication: Treatment Not Indicated VTE Drug Contraindication: N/A - Med Ordered
[2022-05-10 15:43] VITALS: BP 90/62; PULSE 71; RESP 18; TEMP 36.4; O2SAT 95
[2022-05-10 15:59] LABS: Glucose, Whole Blood 159 mg/dL (60-115)
[2022-05-10 16:00] VITALS: RESP 20
[2022-05-10] MEDS: Furosemide 40 MG TABLET PO (18:05)
[2022-05-10] MEDS: Divalproex Sodium ER 250 MG TAB.ER.24H PO (18:05)
[2022-05-10] MEDS: Insulin Lispro 100 UNIT/ML 3 ML VIAL SUBCUT (18:05)
[2022-05-10] MEDS: metFORMIN HCl 500 MG TABLET PO (18:05)
[2022-05-10] MEDS: Ferrous Sulfate 324 MG TABLET.DR PO (20:08)
[2022-05-10] MEDS: Sildenafil Citrate 20 MG TABLET PO (20:08)
[2022-05-10] MEDS: HaloperidoL 5 MG TABLET 10 MG PO (20:08)
[2022-05-10] MEDS: Insulin Glargine,Hum.rec.anlog 100 UNIT/ML 10 ML VIAL 10 UNIT SUBCUT (20:09)
[2022-05-10 20:36] LABS: Glucose, Whole Blood 159 mg/dL (60-115)
[2022-05-11 08:00] VITALS: BP 111/69; PULSE 57; RESP 18; TEMP 36.1; O2SAT 95
[2022-05-11 08:10] LABS: Glucose, Whole Blood 132 mg/dL (60-115)
[2022-05-11] MEDS: Divalproex Sodium ER 500 MG TAB.ER.24H PO (08:51)
[2022-05-11] MEDS: HaloperidoL 5 MG TABLET 10 MG PO ×2 (08:51→20:15)
[2022-05-11] MEDS: Atorvastatin Calcium 40 MG TABLET PO (08:51)
[2022-05-11] MEDS: Ferrous Sulfate 324 MG TABLET.DR PO (08:51)
[2022-05-11] MEDS: Sildenafil Citrate 20 MG TABLET PO ×2 (08:51→15:29)
[2022-05-11 09:40] LABS: Anion Gap 18 (12-20); Blood Urea Nitrogen 16 mg/dL (9-16); Carbon Dioxide 22 mmol/L (22-29); Chloride 105 mmol/L (96-108); Creatinine Clr Calc Pharmacy 98.9; Estimated Glomerular Filt Rate > 60; Glucose Random 139 mg/dL (60-115); Potassium 4.9 mmol/L (3.3-5.1); Sodium 140 mmol/L (135-145)
--- NOTE | 2022-05-11 13:19 | P.PNIM_ITS ---
Subjective Subjective Date of Service: 05/11/22 Interval History: Follow-up for placement Review of Systems No overnight events No new complaints Physical Exam Vital Signs: Vital Signs: Last Vital Signs Temp 97.0 F 05/11/22 08:00 Pulse 57 05/11/22 08:00 Resp 18 05/11/22 08:00 BP 111/69 05/11/22 08:00 Pulse Ox 95 05/11/22 08:00 O2 Del Method 05/11/22 08:00 O2 Flow Rate 2 02/16/22 07:18 FiO2 94 02/13/22 15:38 BMI result Body Mass Index 21.8 General: AO X 2 (self, place), no acute distress Resp:? CTA bilateral CVS: S1,S2,RRR GI: +BS, NT, no distention Skin: No rash Neuro:? motor grossly intact Psych: flat affect Objective Data Active Medications Acetaminophen (Acetaminophen 325 Mg Tablet) 650 mg PO Q6H PRN PRN Reason: Pain, Mild (Pain Scale 1-3) Atorvastatin Calcium (Atorvastatin Calcium 40 Mg Tablet) 40 mg PO DAILY [facility] Last Admin: 05/11/22 08:51 Dose: 40 mg Documented By: CONNIE Dextrose (Dextrose 50 % 25 Gm/50 Ml Syringe) 25 gm IVPUSH Q15M PRN; Protocol PRN Reason: per Hypoglycemia Standing Ord. Divalproex Sodium (Divalproex Sodium Er 250 Mg Tab.Er.24h) 250 mg PO DAILY@1700 [facility] Last Admin: 05/10/22 18:05 Dose: 250 mg Documented By: MANSOOR Divalproex Sodium (Divalproex Sodium Er 500 Mg Tab.Er.24h) 500 mg PO DAILY [facility] Last Admin: 05/11/22 08:51 Dose: 500 mg Documented By: CONNIE Ferrous Sulfate (Ferrous Sulfate 324 Mg Tablet.Dr) 324 mg PO BID [facility] Last Admin: 05/11/22 08:51 Dose: 324 mg Documented By: CONNIE Fluticasone Propionate (Fluticasone Propionate Nasal 16 Gm [place]) 1 spray NOSTRIL-B BID [facility] Last Admin: 05/11/22 08:55 Dose: Not Given Documented By: CONNIE Non-Admin Reason: Patient Refused Furosemide (Furosemide 40 Mg Tablet) 40 mg PO BID@0900,1800 [facility]; Protocol Last Admin: 05/10/22 18:05 Dose: 40 mg Documented By: MANSOOR Glucose (Glucose Gel 15 Gm Gel..Gram.) 15 gm PO Q15M PRN; Protocol PRN Reason: per Hypoglycemia Standing Ord. Haloperidol (Haloperidol 5 Mg Tablet) 10 mg PO BID [facility] Last Admin: 05/11/22 08:51 Dose: 10 mg Documented By: CONNIE Insulin Glargine (Insulin Glargine,Hum.Rec.Anlog 100 Unit/Ml 10 Ml Vial) 10 unit SUBCUT BEDTIME [facility] Last Admin: 05/10/22 20:09 Dose: 10 unit Documented By: YUDI Insulin Human Lispro (Insulin Lispro 100 Unit/Ml 3 Ml Vial) 0 unit SUBCUT QIDACHS [facility]; Protocol Last Admin: 05/11/22 08:39 Dose: Not Given Documented By: CONNIE Non-Admin Reason: No Insulin Coverage Melatonin (Melatonin 3 Mg Tablet) 6 mg PO BEDTIME PRN PRN Reason: Insomnia Last Admin: 05/06/22 20:12 Dose: 6 mg Documented By: CASTILM Neomycin/Polymyxin/Hydrocortisone (Neomycin/Polymyxin/Hc Otic Melanie 10 Ml Drpbtl) 3 drop EAR-RIGHT QID [facility] Last Admin: 05/11/22 08:51 Dose: Not Given Documented By: CONNIE Non-Admin Reason: Patient Refused Olanzapine (Olanzapine Odt 10 Mg Tab.Rapdis) 5 mg TRANSLINGU BID PRN PRN Reason: agitation, psychosis Last Admin: 03/15/22 19:48 Dose: 5 mg Documented By: GENIE Omeprazole (Omeprazole 20 Mg Capsule.Dr) 20 mg PO DAILY@0630 [facility] Last Admin: 05/11/22 04:55 Dose: Not Given Documented By: YUDI Non-Admin Reason: Patient Refused Senna (Sennosides 8.6 Mg Tablet) 17.2 mg PO BEDTIME PRN PRN Reason: Constipation Sildenafil Citrate (Sildenafil Citrate 20 Mg Tablet) 20 mg PO TID [facility] Last Admin: 05/11/22 08:51 Dose: 20 mg Documented By: CONNIE Sitagliptin Phosphate (Sitagliptin Phosphate 100 Mg Tablet) 100 mg PO DAILY [facility] Last Admin: 05/10/22 09:04 Dose: Not Given Documented By: MANSOOR Non-Admin Reason: Patient Refused Labs CBC & Chem 7: 04/23/22 07:52 05/11/22 08:12 Labs: Laboratory Results - last 24 hr 05/10/22 05/10/22 05/11/22 15:46 20:09 08:05 Anion Gap Estim Creat Clear Calc Estimated GFR POC Glucose 159 H 159 H 132 H Random Glucose Calcium Total Creatine Kinase 05/11/22 05/11/22 08:12 08:12 Anion Gap 18 Estim Creat Clear Calc 98.9 Estimated GFR > 60 POC Glucose Random Glucose 139 H Calcium 9.0 Total Creatine Kinase 91 Assessment and Plan (1) Schizo affective schizophrenia: Status: Acute Plan 61-year-old male with a past medical history of schizophrenia, CHF, asthma/COPD, diabetes, hyperlipidemia presented from the senior living with a chief complaint of acute hypoxia. Noted to have following conditions essentially no new issues No further episodes of elopement, continue close observation, Camera in room Acute hypoxic respiratory failure on presentation suspected d/t COPD/asthma/CHF. Resolved Acute asthma/COPD, chronic intermittent No acute symptoms, continue bronchodilator, Patient has no formal diagnosis.? Patient is supposed to be following up with pulmonology as outpatient.? He? had similar presentation in December 2021. Pulmonary HTN Asymptomatic,? continue Viagra, outpatient follow up Heart failure with preserved ejection fraction EF 55 to 60,no acute exacerbation, continue oral Lasix 40 bid Diabetes/hyperglycemia blood sugars? in acceptable range continue lantus,? SSI, metformin and Sitagliptin schizoaffective disorder Continue home Depakote, haloperidol DVT prophylaxis:? Lovenox Code status: Full code.? Confirmed with the patient's guardian [facility] proxy invoked. Lacks capacity for medical decision, awaiting permane nt placement. out of bed,ambulate with supervision. Need for inpatient : awaiting ,placement Quality Stroke Does the patient have a stroke diagnosis?: No VTE Prior VTE?: No VTE Risk Level:: Medical - moderate - high VTE Device Contraindication: Treatment Not Indicated VTE Drug Contraindication: N/A - Med Ordered
[2022-05-11] MEDS: Divalproex Sodium ER 250 MG TAB.ER.24H PO (15:30)
--- NOTE | 2022-05-11 15:30 | PC.NURSE ---
Patient took all morning and afternoon medications, some resistance at first but reassured patient. Having meds vvitals and POC's clustered together helps with administration
[2022-05-11 15:35] VITALS: BP 102/66; PULSE 80; RESP 16; TEMP 36.6; O2SAT 94
[2022-05-11] MEDS: Insulin Lispro 100 UNIT/ML 3 ML VIAL SUBCUT (15:36)
[2022-05-11 15:43] LABS: Glucose, Whole Blood 223 mg/dL (60-115)
[2022-05-11 19:25] LABS: Glucose, Whole Blood 145 mg/dL (60-115)
[2022-05-11] MEDS: Insulin Glargine,Hum.rec.anlog 100 UNIT/ML 10 ML VIAL 10 UNIT SUBCUT (20:16)
[2022-05-12 07:44] VITALS: BP 98/61; PULSE 70; RESP 18; TEMP 36.7; O2SAT 94
[2022-05-12 07:53] LABS: Glucose, Whole Blood 143 mg/dL (60-115)
[2022-05-12] MEDS: Furosemide 40 MG TABLET PO ×2 (09:12→17:22)
[2022-05-12] MEDS: Sildenafil Citrate 20 MG TABLET PO (09:12)
[2022-05-12] MEDS: Divalproex Sodium ER 500 MG TAB.ER.24H PO (09:12)
[2022-05-12] MEDS: HaloperidoL 5 MG TABLET 10 MG PO ×2 (09:12→20:46)
[2022-05-12] MEDS: Ferrous Sulfate 324 MG TABLET.DR PO (09:12)
[2022-05-12] MEDS: Atorvastatin Calcium 40 MG TABLET PO (09:12)
--- NOTE | 2022-05-12 12:29 | HO.PM.IMPN ---
Subjective Subjective Date of Service: 05/12/22 Interval History: Follow-up for placement Review of Systems No overnight events No new complaints Physical Exam Vital Signs: Vital Signs: Last Vital Signs Temp 98.0 F 05/12/22 07:44 Pulse 70 05/12/22 07:44 Resp 18 05/12/22 07:44 BP 98/61 05/12/22 07:44 Pulse Ox 94 05/12/22 07:44 O2 Del Method 05/12/22 07:44 O2 Flow Rate 2 02/16/22 07:18 FiO2 94 02/13/22 15:38 BMI result Body Mass Index 21.8 General: AO X 2 (self, place), no acute distress Resp:? CTA bilateral CVS: S1,S2,RRR GI: +BS, NT, no distention Skin: No rash Neuro:? motor grossly intact Psych: flat affect Objective Data Active Medications Acetaminophen (Acetaminophen 325 Mg Tablet) 650 mg PO Q6H PRN PRN Reason: Pain, Mild (Pain Scale 1-3) Atorvastatin Calcium (Atorvastatin Calcium 40 Mg Tablet) 40 mg PO DAILY [facility] Last Admin: 05/12/22 09:12 Dose: 40 mg Documented By: CONNIE Dextrose (Dextrose 50 % 25 Gm/50 Ml Syringe) 25 gm IVPUSH Q15M PRN; Protocol PRN Reason: per Hypoglycemia Standing Ord. Divalproex Sodium (Divalproex Sodium Er 250 Mg Tab.Er.24h) 250 mg PO DAILY@1700 [facility] Last Admin: 05/11/22 15:30 Dose: 250 mg Documented By: CONNIE Divalproex Sodium (Divalproex Sodium Er 500 Mg Tab.Er.24h) 500 mg PO DAILY [facility] Last Admin: 05/12/22 09:12 Dose: 500 mg Documented By: CONNIE Ferrous Sulfate (Ferrous Sulfate 324 Mg Tablet.Dr) 324 mg PO BID [facility] Last Admin: 05/12/22 09:12 Dose: 324 mg Documented By: CONNIE Fluticasone Propionate (Fluticasone Propionate Nasal 16 Gm [place]) 1 spray NOSTRIL-B BID [facility] Last Admin: 05/12/22 09:13 Dose: Not Given Documented By: CONNIE Non-Admin Reason: Patient Refused Furosemide (Furosemide 40 Mg Tablet) 40 mg PO BID@0900,1800 [facility]; Protocol Last Admin: 05/12/22 09:12 Dose: 40 mg Documented By: CONNIE Glucose (Glucose Gel 15 Gm Gel..Gram.) 15 gm PO Q15M PRN; Protocol PRN Reason: per Hypoglycemia Standing Ord. Haloperidol (Haloperidol 5 Mg Tablet) 10 mg PO BID [facility] Last Admin: 05/12/22 09:12 Dose: 10 mg Documented By: CONNIE Insulin Glargine (Insulin Glargine,Hum.Rec.Anlog 100 Unit/Ml 10 Ml Vial) 10 unit SUBCUT BEDTIME [facility] Last Admin: 05/11/22 20:16 Dose: 10 unit Documented By: BLADIMIR Insulin Human Lispro (Insulin Lispro 100 Unit/Ml 3 Ml Vial) 0 unit SUBCUT QIDACHS [facility]PL[facility] BY [facility]; Protocol Last Admin: 05/12/22 08:14 Dose: Not Given Documented By: CONNIE Non-Admin Reason: No Insulin Coverage Melatonin (Melatonin 3 Mg Tablet) 6 mg PO BEDTIME PRN PRN Reason: Insomnia Last Admin: 05/06/22 20:12 Dose: 6 mg Documented By: SHARONILScooby Neomycin/Polymyxin/Hydrocortisone (Neomycin/Polymyxin/Hc Otic Melanie 10 Ml Drpbtl) 3 drop EAR-RIGHT QID [facility]PL[facility] Last Admin: 05/12/22 09:13 Dose: Not Given Documented By: CONNIE Non-Admin Reason: Patient Refused Olanzapine (Olanzapine Odt 10 Mg Tab.Rapdis) 5 mg TRANSLINGU BID PRN PRN Reason: agitation, psychosis Last Admin: 03/15/22 19:48 Dose: 5 mg Documented By: GENIE Omeprazole (Omeprazole 20 Mg Capsule.Dr) 20 mg PO DAILY@0630 [facility] Last Admin: 05/12/22 06:03 Dose: Not Given Documented By: BLADMIIR Non-Admin Reason: Patient Refused Senna (Sennosides 8.6 Mg Tablet) 17.2 mg PO BEDTIME PRN PRN Reason: Constipation Sildenafil Citrate (Sildenafil Citrate 20 Mg Tablet) 20 mg PO TID [facility] Last Admin: 05/12/22 09:12 Dose: 20 mg Documented By: CONNIE Sitagliptin Phosphate (Sitagliptin Phosphate 100 Mg Tablet) 100 mg PO DAILY [facility] Last Admin: 05/10/22 09:04 Dose: Not Given Documented By: MANSOOR Non-Admin Reason: Patient Refused Labs CBC & Chem 7: 04/23/22 07:52 05/11/22 08:12 Labs: Laboratory Results - last 24 hr 05/11/22 05/11/22 05/12/22 15:33 19:20 07:47 POC Glucose 223 H 145 H 143 H Assessment and Plan (1) Schizo affective schizophrenia: Status: Acute Plan 61-year-old male with a past medical history of schizophrenia, CHF, asthma/COPD, diabetes, hyperlipidemia presented from the senior care with a chief complaint of acute hypoxia. Noted to have following conditions essentially no new issues No further episodes of elopement, continue close observation, Camera in room Acute hypoxic respiratory failure on presentation suspected d/t COPD/asthma/CHF. Resolved Acute asthma/COPD, chronic intermittent No acute symptoms, continue bronchodilator, Patient has no formal diagnosis.? Patient is supposed to be following up with pulmonology as outpatient.? He? had similar presentation in December 2021. Pulmonary HTN Asymptomatic,? continue Viagra, outpatient follow up Heart failure with preserved ejection fraction EF 55 to 60,no acute exacerbation, continue oral Lasix 40 bid Diabetes/hyperglycemia blood sugars? in acceptable range continue lantus,? SSI, metformin and Sitagliptin schizoaffective disorder Continue home Depakote, haloperidol DVT prophylaxis:? Lovenox Code status: Full code.? Confirmed with the patient's guardian [facility] proxy invoked. Lacks capacity for medical decision, awaiting permanent placement. out of bed,ambulate with supervision. Need for inpatient : awaiting ,placement Quality Stroke Does the patient have a stroke diagnosis?: No VTE Prior VTE?: No VTE Risk Level:: Medical - moderate - high VTE Device Contraindication: Treatment Not Indicated VTE Drug Contraindication: N/A - Med Ordered
[2022-05-12 15:57] VITALS: BP 103/59; PULSE 77; RESP 18; TEMP 36.7; O2SAT 98
[2022-05-12] MEDS: Divalproex Sodium ER 250 MG TAB.ER.24H PO (17:22)
[2022-05-12] MEDS: Insulin Lispro 100 UNIT/ML 3 ML VIAL SUBCUT (17:23)
[2022-05-12] MEDS: Insulin Glargine,Hum.rec.anlog 100 UNIT/ML 10 ML VIAL 10 UNIT SUBCUT (20:46)
[2022-05-12 23:29] VITALS: BP 118/79; PULSE 62; RESP 18; TEMP 36.1; O2SAT 97
[2022-05-13 07:59] VITALS: BP 105/67; PULSE 52; RESP 16; TEMP 36.6; O2SAT 94
--- NOTE | 2022-05-13 13:24 | HO.PM.IMPN ---
Subjective Subjective Date of Service: 05/13/22 Interval History: Follow-up for placement Review of Systems No overnight events No new complaints Physical Exam Vital Signs: Vital Signs: Last Vital Signs Temp 97.9 F 05/13/22 07:59 Pulse 52 05/13/22 07:59 Resp 16 05/13/22 07:59 BP 105/67 05/13/22 07:59 Pulse Ox 94 05/13/22 07:59 O2 Del Method 05/13/22 07:59 O2 Flow Rate 2 02/16/22 07:18 FiO2 94 02/13/22 15:38 BMI result Body Mass Index 21.8 General: AO X 2 (self, place), no acute distress Resp:? CTA bilateral CVS: S1,S2,RRR GI: +BS, NT, no distention Skin: No rash Neuro:? motor grossly intact Psych: flat affect Objective Data Active Medications Acetaminophen (Acetaminophen 325 Mg Tablet) 650 mg PO Q6H PRN PRN Reason: Pain, Mild (Pain Scale 1-3) Atorvastatin Calcium (Atorvastatin Calcium 40 Mg Tablet) 40 mg PO DAILY [facility] Last Admin: 05/13/22 09:58 Dose: Not Given Documented By: CONNIE Non-Admin Reason: Patient Refused Dextrose (Dextrose 50 % 25 Gm/50 Ml Syringe) 25 gm IVPUSH Q15M PRN; Protocol PRN Reason: per Hypoglycemia Standing Ord. Divalproex Sodium (Divalproex Sodium Er 250 Mg Tab.Er.24h) 250 mg PO DAILY@1700 [facility] Last Admin: 05/12/22 17:22 Dose: 250 mg Documented By: CONNIE Divalproex Sodium (Divalproex Sodium Er 500 Mg Tab.Er.24h) 500 mg PO DAILY [facility] Last Admin: 05/13/22 09:58 Dose: Not Given Documented By: CONNIE Non-Admin Reason: Patient Refused Ferrous Sulfate (Ferrous Sulfate 324 Mg Tablet.) 324 mg PO BID [facility] Last Admin: 05/13/22 09:58 Dose: Not Given Documented By: CONNIE Non-Admin Reason: Patient Refused Fluticasone Propionate (Fluticasone Propionate Nasal 16 Gm [place]) 1 spray NOSTRIL-B BID [facility] Last Admin: 05/13/22 09:58 Dose: Not Given Documented By: CONNIE Non-Admin Reason: Patient Refused Furosemide (Furosemide 40 Mg Tablet) 40 mg PO BID@0900,1800 [facility]; Protocol Last Admin: 05/13/22 09:58 Dose: Not Given Documented By: CONNIE Non-Admin Reason: Patient Refused Glucose (Glucose Gel 15 Gm Gel..Gram.) 15 gm PO Q15M PRN; Protocol PRN Reason: per Hypoglycemia Standing Ord. Haloperidol (Haloperidol 5 Mg Tablet) 10 mg PO BID [facility] Last Admin: 05/13/22 09:58 Dose: Not Given Documented By: CONNIE Non-Admin Reason: Patient Refused Insulin Glargine (Insulin Glargine,Hum.Rec.Anlog 100 Unit/Ml 10 Ml Vial) 10 unit SUBCUT BEDTIME [facility] Last Admin: 05/12/22 20:46 Dose: 10 unit Documented By: BLADIMIR Insulin Human Lispro (Insulin Lispro 100 Unit/Ml 3 Ml Vial) 0 unit SUBCUT QIDACHS [facility]; Protocol Last Admin: 05/13/22 11:41 Dose: Not Given Documented By: CONNIE Non-Admin Reason: Patient Refused Melatonin (Melatonin 3 Mg Tablet) 6 mg PO BEDTIME PRN PRN Reason: Insomnia Last Admin: 05/06/22 20:12 Dose: 6 mg Documented By: CASTILM Neomycin/Polymyxin/Hydrocortisone (Neomycin/Polymyxin/Hc Otic Melanie 10 Ml Drpbtl) 3 drop EAR-RIGHT QID [facility] Last Admin: 05/13/22 12:39 Dose: Not Given Documented By: CONNIE Non-Admin Reason: Patient Refused Olanzapine (Olanzapine Odt 10 Mg Tab.Rapdis) 5 mg TRANSLINGU BID PRN PRN Reason: agitation, psychosis Last Admin: 03/15/22 19:48 Dose: 5 mg Documented By: GENIE Omeprazole (Omeprazole 20 Mg Capsule.Dr) 20 mg PO DAILY@0630 [facility] Last Admin: 05/13/22 06:10 Dose: Not Given Documented By: BLADIMIR Non-Admin Reason: Patient Refused Senna (Sennosides 8.6 Mg Tablet) 17.2 mg PO BEDTIME PRN PRN Reason: Constipation Sildenafil Citrate (Sildenafil Citrate 20 Mg Tablet) 20 mg PO TID [facility] Last Admin: 05/13/22 09:58 Dose: Not Given Documented By: CONNIE Non-Admin Reason: Patient Refused Sitagliptin Phosphate (Sitagliptin Phosphate 100 Mg Tablet) 100 mg PO DAILY [facility] Last Admin: 05/10/22 09:04 Dose: Not Given Documented By: MANSOOR Non-Admin Reason: Patient Refused Labs CBC & Chem 7: 04/23/22 07:52 05/11/22 08:12 Labs: Laboratory Results - last 24 hr 05/12/22 05/12/22 05/13/22 15:59 19:51 08:01 POC Glucose 152 H 212 H 123 H Assessment and Plan (1) Schizo affective schizophrenia: Status: Acute Plan 61-year-old male with a past medical history of schizophrenia, CHF, asthma/COPD, diabetes, hyperlipidemia presented [facility] the [facility] with a chief complaint of acute hypoxia. Noted to have following conditions essentially no new issues No further episodes of elopement, continue close observation, Camera in room Acute hypoxic respiratory failure on presentation suspected d/t COPD/asthma/CHF. Resolved Acute asthma/COPD, chronic intermittent No acute symptoms, continue bronchodilator, Patient has no formal diagnosis.? Patient is supposed to be following up with pulmonology as outpatient.? He? had similar presentation in December 2021. Pulmonary HTN Asymptomatic,? continue Viagra, outpatient follow up Heart failure with preserved ejection fraction EF 55 to 60,no acute exacerbation, continue oral Lasix 40 bid Diabetes/hyperglycemia blood sugars? in acceptable range continue lantus,? SSI, metformin and Sitagliptin schizoaffective disorder Continue home Depakote, haloperidol DVT prophylaxis:? Lovenox Code status: Full code.? Confirmed with the patient's guardian [facility] proxy invoked. Lacks capacity for medical decision, awaiting permanent placement. out of bed,ambulate with supervision. Need for inpatient : awaiting ,placement Quality Stroke Does the patient have a stroke diagnosis?: No VTE Prior VTE?: No VTE Risk Level:: Medical - moderate - high VTE Device Contraindication: Treatment Not Indicated VTE Drug Contraindication: N/A - Med Ordered
[2022-05-13 16:00] VITALS: BP 127/71; PULSE 88; RESP 18; TEMP 36.7; O2SAT 97
[2022-05-13] MEDS: Divalproex Sodium ER 250 MG TAB.ER.24H PO (16:10)
[2022-05-13] MEDS: Furosemide 40 MG TABLET PO (16:10)
[2022-05-13] MEDS: Sildenafil Citrate 20 MG TABLET PO ×2 (16:10→20:41)
[2022-05-13] MEDS: HaloperidoL 5 MG TABLET 10 MG PO (20:41)
[2022-05-13] MEDS: Insulin Glargine,Hum.rec.anlog 100 UNIT/ML 10 ML VIAL 10 UNIT SUBCUT (20:41)
[2022-05-13] MEDS: Ferrous Sulfate 324 MG TABLET.DR PO (20:41)
[2022-05-14 07:45] VITALS: BP 96/63; PULSE 68; RESP 17; TEMP 36.3; O2SAT 94
[2022-05-14 08:17] LABS: Glucose, Whole Blood 138 mg/dL (60-115)
[2022-05-14] MEDS: Atorvastatin Calcium 40 MG TABLET PO (08:20)
[2022-05-14] MEDS: Ferrous Sulfate 324 MG TABLET.DR PO ×2 (08:20→21:06)
[2022-05-14] MEDS: HaloperidoL 5 MG TABLET 10 MG PO ×2 (08:20→21:06)
[2022-05-14] MEDS: Divalproex Sodium ER 500 MG TAB.ER.24H PO (08:20)
[2022-05-14] MEDS: Sildenafil Citrate 20 MG TABLET PO ×3 (08:20→21:06)
[2022-05-14] MEDS: Furosemide 40 MG TABLET PO (11:45)
[2022-05-14 11:52] LABS: Glucose, Whole Blood 134 mg/dL (60-115)
--- NOTE | 2022-05-14 12:20 | HO.PM.IMPN ---
Subjective Subjective Date of Service: 05/14/22 Interval History: Follow-up for placement Review of Systems No overnight events No new complaints Physical Exam Vital Signs: Vital Signs: Last Vital Signs Temp 97.3 F 05/14/22 07:45 Pulse 68 05/14/22 07:45 Resp 17 05/14/22 07:45 BP 96/63 05/14/22 07:45 Pulse Ox 94 05/14/22 07:45 O2 Del Method 05/14/22 07:45 O2 Flow Rate 2 02/16/22 07:18 FiO2 94 02/13/22 15:38 BMI result Body Mass Index 21.8 General: AO X 2 (self, place), no acute distress Resp:? CTA bilateral CVS: S1,S2,RRR GI: +BS, NT, no distention Skin: No rash Neuro:? motor grossly intact Psych: flat affect Objective Data Active Medications Acetaminophen (Acetaminophen 325 Mg Tablet) 650 mg PO Q6H PRN PRN Reason: Pain, Mild (Pain Scale 1-3) Atorvastatin Calcium (Atorvastatin Calcium 40 Mg Tablet) 40 mg PO DAILY [facility] Last Admin: 05/14/22 08:20 Dose: 40 mg Documented By: BRENNON Dextrose (Dextrose 50 % 25 Gm/50 Ml Syringe) 25 gm IVPUSH Q15M PRN; Protocol PRN Reason: per Hypoglycemia Standing Ord. Divalproex Sodium (Divalproex Sodium Er 250 Mg Tab.Er.24h) 250 mg PO DAILY@1700 [facility] Last Admin: 05/13/22 16:10 Dose: 250 mg Documented By: CONNIE Divalproex Sodium (Divalproex Sodium Er 500 Mg Tab.Er.24h) 500 mg PO DAILY [facility] Last Admin: 05/14/22 08:20 Dose: 500 mg Documented By: BRENNON Ferrous Sulfate (Ferrous Sulfate 324 Mg Tablet.Dr) 324 mg PO BID [facility] Last Admin: 05/14/22 08:20 Dose: 324 mg Documented By: BRENNON Fluticasone Propionate (Fluticasone Propionate Nasal 16 Gm [employer]) 1 spray NOSTRIL-B BID [facility] Last Admin: 05/14/22 08:23 Dose: Not Given Documented By: BRENNON Non-Admin Reason: Patient Refused Furosemide (Furosemide 40 Mg Tablet) 40 mg PO BID@0900,1800 [facility]; Protocol Last Admin: 05/14/22 11:45 Dose: 40 mg Documented By: BRENNON Glucose (Glucose Gel 15 Gm Gel..Gram.) 15 gm PO Q15M PRN; Protocol PRN Reason: per Hypoglycemia Standing Ord. Haloperidol (Haloperidol 5 Mg Tablet) 10 mg PO BID [facility] Last Admin: 05/14/22 08:20 Dose: 10 mg Documented By: BRENNON Insulin Glargine (Insulin Glargine,Hum.Rec.Anlog 100 Unit/Ml 10 Ml Vial) 10 unit SUBCUT BEDTIME [facility] Last Admin: 05/13/22 20:41 Dose: 10 unit Documented By: ARTIS Insulin Human Lispro (Insulin Lispro 100 Unit/Ml 3 Ml Vial) 0 unit SUBCUT QIDACHS [facility]; Protocol Last Admin: 05/14/22 11:54 Dose: Not Given Documented By: BRENNON Non-Admin Reason: No Insulin Coverage Melatonin (Melatonin 3 Mg Tablet) 6 mg PO BEDTIME PRN PRN Reason: Insomnia Last Admin: 05/06/22 20:12 Dose: 6 mg Documented By: SHARONILScooby Neomycin/Polymyxin/Hydrocortisone (Neomycin/Polymyxin/Hc Otic Melanie 10 Ml Drpbtl) 3 drop EAR-RIGHT QID [facility] Last Admin: 05/14/22 08:24 Dose: Not Given Documented By: BRENNON Non-Admin Reason: Patient Refused Olanzapine (Olanzapine Odt 10 Mg Tab.Rapdis) 5 mg TRANSLINGU BID PRN PRN Reason: agitation, psychosis Last Admin: 03/15/22 19:48 Dose: 5 mg Documented By: GENIE Omeprazole (Omeprazole 20 Mg Capsule.Dr) 20 mg PO DAILY@0630 [facility] Last Admin: 05/14/22 06:24 Dose: Not Given Documented By: LOGAN Non-Admin Reason: Patient Refused Senna (Sennosides 8.6 Mg Tablet) 17.2 mg PO BEDTIME PRN PRN Reason: Constipation Sildenafil Citrate (Sildenafil Citrate 20 Mg Tablet) 20 mg PO TID [facility] Last Admin: 05/14/22 08:20 Dose: 20 mg Documented By: BRENNON Sitagliptin Phosphate (Sitagliptin Phosphate 100 Mg Tablet) 100 mg PO DAILY [facility] Last Admin: 05/10/22 09:04 Dose: Not Given Documented By: MANSOOR Non-Admin Reason: Patient Refused Labs CBC & Chem 7: 04/23/22 07:52 05/11/22 08:12 Labs: Laboratory Results - last 24 hr 05/13/22 05/13/22 05/14/22 16:13 18:47 07:43 POC Glucose 139 H 128 H 138 H 05/14/22 11:46 POC Glucose 134 H Assessment and Plan (1) Schizo affective schizophrenia: Status: Acute Plan 61-year-old male with a past medical history of schizophrenia, CHF, asthma/COPD, diabetes, hyperlipidemia presented from the nursing home with a chief complaint of acute hypoxia. Noted to have following conditions essentially no new issues No further episodes of elopement, continue close observation, Camera in room Acute hypoxic respiratory failure on presentation suspected d/t COPD/asthma/CHF. Resolved Acute asthma/COPD, chronic intermittent No acute symptoms, continue bronchodilator, Patient has no formal diagnosis.? Patient is supposed to be following up with pulmonology as outpatient.? He? had similar presentation in December 2021. Pulmonary HTN Asymptomatic,? continue Viagra, outpatient follow up Heart failure with preserved ejection fraction EF 55 to 60,no acute exacerbation, continue oral Lasix 40 bid Diabetes/hyperglycemia blood sugars? in acceptable range continue lantus,? SSI, metformin and Sitagliptin schizoaffective disorder Continue home Depakote, haloperidol DVT prophylaxis:? Lovenox Code status: Full code.? Confirmed with the patient's guardian [facility] proxy invoked. Lacks capacity for medical decision, awaiting permanent placement. out of bed,ambulate with supervision. Need for inpatient : awaiting ,placement Quality Stroke Does the patient have a stroke diagnosis?: No VTE Prior VTE?: No VTE Risk Level:: Medical - moderate - high VTE Device Contraindication: Treatment Not Indicated VTE Drug Contraindication: N/A - Med Ordered
[2022-05-14 16:00] VITALS: BP 102/68; PULSE 67; RESP 15; TEMP 36.1; O2SAT 94
[2022-05-14] MEDS: Divalproex Sodium ER 250 MG TAB.ER.24H PO (17:17)
[2022-05-14 17:21] LABS: Glucose, Whole Blood 168 mg/dL (60-115)
[2022-05-14 19:54] LABS: Glucose, Whole Blood 195 mg/dL (60-115)
[2022-05-14] MEDS: Insulin Glargine,Hum.rec.anlog 100 UNIT/ML 10 ML VIAL 10 UNIT SUBCUT (21:08)
[2022-05-14] MEDS: Insulin Lispro 100 UNIT/ML 3 ML VIAL SUBCUT (21:09)
[2022-05-15 08:00] VITALS: BP 103/66; PULSE 61; RESP 17; TEMP 35.9; O2SAT 95
[2022-05-15] MEDS: Ferrous Sulfate 324 MG TABLET.DR PO ×2 (09:30→20:29)
[2022-05-15] MEDS: Atorvastatin Calcium 40 MG TABLET PO (09:30)
[2022-05-15] MEDS: HaloperidoL 5 MG TABLET 10 MG PO ×2 (09:30→20:29)
[2022-05-15] MEDS: Sildenafil Citrate 20 MG TABLET PO ×3 (09:30→20:29)
[2022-05-15] MEDS: Divalproex Sodium ER 500 MG TAB.ER.24H PO (09:31)
[2022-05-15 09:41] LABS: Glucose, Whole Blood 135 mg/dL (60-115)
[2022-05-15 11:42] LABS: Glucose, Whole Blood 192 mg/dL (60-115)
[2022-05-15] MEDS: Insulin Lispro 100 UNIT/ML 3 ML VIAL SUBCUT (11:46)
--- NOTE | 2022-05-15 13:51 | P.PNIM_ITS ---
Subjective Subjective Date of Service: 05/15/22 Interval History: Seen and examined this morning Follow-up for placement No new issues No specific complaints this morning, he is cooperating this morning Review of Systems no sob no fever Physical Exam Vital Signs: Vital Signs: Last Vital Signs Temp 96.7 F L 05/15/22 08:00 Pulse 61 05/15/22 08:00 Resp 17 05/15/22 08:00 BP 103/66 05/15/22 08:00 Pulse Ox 95 05/15/22 08:00 O2 Del Method 05/15/22 08:00 O2 Flow Rate 2 02/16/22 07:18 FiO2 94 02/13/22 15:38 BMI result Body Mass Index 21.8 Const: Other: General: AO X 2 (self, place), no acute distress Resp: CTA bilateral CVS: S1,S2,RRR GI: +BS, NT, no distention Skin: No rash Neuro: motor grossly intact Psych: flat affect Objective Data Active Medications Acetaminophen (Acetaminophen 325 Mg Tablet) 650 mg PO Q6H PRN PRN Reason: Pain, Mild (Pain Scale 1-3) Atorvastatin Calcium (Atorvastatin Calcium 40 Mg Tablet) 40 mg PO DAILY [facility] Last Admin: 05/15/22 09:30 Dose: 40 mg Documented By: CATARINA Dextrose (Dextrose 50 % 25 Gm/50 Ml Syringe) 25 gm IVPUSH Q15M PRN; Protocol PRN Reason: per Hypoglycemia Standing Ord. Divalproex Sodium (Divalproex Sodium Er 250 Mg Tab.Er.24h) 250 mg PO DAILY@1700 [facility] Last Admin: 05/14/22 17:17 Dose: 250 mg Documented By: BRENNON Divalproex Sodium (Divalproex Sodium Er 500 Mg Tab.Er.24h) 500 mg PO DAILY [facility] Last Admin: 05/15/22 09:31 Dose: 500 mg Documented By: CATARINA Ferrous Sulfate (Ferrous Sulfate 324 Mg Tablet.Dr) 324 mg PO BID [facility] Last Admin: 05/15/22 09:30 Dose: 324 mg Documented By: CATARINA Fluticasone Propionate (Fluticasone Propionate Nasal 16 Gm [place]) 1 spray NOSTRIL-B BID [facility] Last Admin: 05/15/22 09:37 Dose: Not Given Documented By: CATARINA Non-Admin Reason: Patient Refused Furosemide (Furosemide 40 Mg Tablet) 40 mg PO BID@0900,1800 [facility]; Protocol Last Admin: 05/14/22 11:45 Dose: 40 mg Documented By: BRENNON Glucose (Glucose Gel 15 Gm Gel..Gram.) 15 gm PO Q15M PRN; Protocol PRN Reason: per Hypoglycemia Standing Ord. Haloperidol (Haloperidol 5 Mg Tablet) 10 mg PO BID [facility] Last Admin: 05/15/22 09:30 Dose: 10 mg Documented By: CATARINA Insulin Glargine (Insulin Glargine,Hum.Rec.Anlog 100 Unit/Ml 10 Ml Vial) 10 unit SUBCUT BEDTIME [facility] Last Admin: 05/14/22 21:08 Dose: 10 unit Documented By: SHANNA Insulin Human Lispro (Insulin Lispro 100 Unit/Ml 3 Ml Vial) 0 unit SUBCUT QIDACHS [facility]; Protocol Last Admin: 05/15/22 11:46 Dose: 2 unit Documented By: MARK Melatonin (Melatonin 3 Mg Tablet) 6 mg PO BEDTIME PRN PRN Reason: Insomnia Last Admin: 05/06/22 20:12 Dose: 6 mg Documented By: ANA Neomycin/Polymyxin/Hydrocortisone (Neomycin/Polymyxin/Hc Otic Melanie 10 Ml Drpbtl) 3 drop EAR-RIGHT QID [facility] Last Admin: 05/15/22 12:40 Dose: Not Given Documented By: MARK Non-Admin Reason: Patient Refused Olanzapine (Olanzapine Odt 10 Mg Tab.Rapdis) 5 mg TRANSLINGU BID PRN PRN Reason: agitation, psychosis Last Admin: 03/15/22 19:48 Dose: 5 mg Documented By: GENIE Omeprazole (Omeprazole 20 Mg Capsule.Dr) 20 mg PO DAILY@0630 [facility] Last Admin: 05/15/22 05:31 Dose: Not Given Documented By: TAY Non-Admin Reason: Patient Refused Senna (Sennosides 8.6 Mg Tablet) 17.2 mg PO BEDTIME PRN PRN Reason: Constipation Sildenafil Citrate (Sildenafil Citrate 20 Mg Tablet) 20 mg PO TID [facility] Last Admin: 05/15/22 09:30 Dose: 20 mg Documented By: CATARINA Sitagliptin Phosphate (Sitagliptin Phosphate 100 Mg Tablet) 100 mg PO DAILY [facility] Last Admin: 05/10/22 09:04 Dose: Not Given Documented By: MANSOOR Non-Admin Reason: Patient Refused Labs CBC & Chem 7: 04/23/22 07:52 05/11/22 08:12 Labs: Laboratory Results - last 24 hr 05/14/22 05/14/22 05/15/22 17:14 19:49 09:31 POC Glucose 168 H 195 H 135 H 05/15/22 11:34 POC Glucose 192 H Assessment and Plan (1) Schizo affective schizophrenia: Status: Acute Plan 61-year-old male with a past medical history of schizophrenia, CHF, asthma/COPD, diabetes, hyperlipidemia presented from the nursing home with a chief complaint of acute hypoxia. Noted to have following conditions essentially no new issues No further episodes of elopement, continue close observation, Camera in room Acute hypoxic respiratory failure on presentation suspected d/t COPD/asthma/CHF. Resolved Acute asthma/COPD, chronic intermittent No acute symptoms, continue bronchodilator, Patient has no formal diagnosis.? Patient is supposed to be following up with pulmonology as outpatient.? He? had similar presentation in December 2021. Pulmonary HTN Asymptomatic,? continue Viagra, outpatient follow up Heart failure with preserved ejection fraction EF 55 to 60,no acute exacerbation, continue oral Lasix 40 bid Diabetes/hyperglycemia blood sugars? in acceptable range continue lantus,? SSI, metformin and Sitagliptin schizoaffective disorder Continue home Depakote, haloperidol DVT prophylaxis:? Lovenox Code status: Full code.? Confirmed with the patient's guardian [facility] proxy invoked. Lacks capacity for medical decision, awaiting permanent placement. out of bed,ambulate with supervision. Need for inpatient : awaiting ,placement have a court day coming next week and will commplete medical certificate Quality Stroke Does the patient have a stroke diagnosis?: No VTE Prior VTE?: No VTE Risk Level:: Medical - moderate - high VTE Device Contraindication: Treatment Not Indicated VTE Drug Contraindication: N/A - Med Ordered
--- NOTE | 2022-05-15 14:22 | MHC.CM.PN ---
ILEANA CONTACTED ADMISSIONS LIAISON YSABEL AT [facility] REGARDING REFERRAL, YSABEL REQUESTED ADDITION INFO BE SENT INCLUDING GUARDIANSHIP, SEPARATE MED LIST, NSG NOTES AND MD PROGRESS NOTES FOR LAST 30 DAYS, ILEANA HAS REQUESTED NSG START DAILY NOTES ON PT AND DOCUMENTATION FAXED TO YSABEL AT [facility] FAX [phone]. PER CM DIRECTOR CLINICAL REVIEWER FROM [facility] HAS NOT CONTACTED HER FOR ADDITIONAL REVIEW. CM WILL CONT TO FOLLOW REFERRALS AND D/C NEEDS.
[2022-05-15 15:04] VITALS: BP 107/63; PULSE 58; RESP 17; TEMP 36.4; O2SAT 96
[2022-05-15 15:29] LABS: Glucose, Whole Blood 119 mg/dL (60-115)
[2022-05-15] MEDS: Divalproex Sodium ER 250 MG TAB.ER.24H PO (16:49)
[2022-05-15 19:56] LABS: Glucose, Whole Blood 173 mg/dL (60-115)
[2022-05-15] MEDS: Insulin Glargine,Hum.rec.anlog 100 UNIT/ML 10 ML VIAL 10 UNIT SUBCUT (20:29)
[2022-05-16 08:00] VITALS: BP 103/68; PULSE 57; RESP 17; TEMP 36; O2SAT 97
[2022-05-16 09:48] LABS: Glucose, Whole Blood 120 mg/dL (60-115)
--- NOTE | 2022-05-16 11:47 | MHC.CM.PN ---
Addendum entered by Rima Leon RN 05/16/22 12:53: PASSR LEVEL 1 COMPLETED AND FAXED TO YSABEL PER REQUEST, PASSR HAS NOT BEEN FAXED TO [facility] D/T PT NOT HAVING BED OFFER AT THIS TIME. Original Note: EMR REVIEWED, ILEANA AND [employer]LEANA [employer] ATTEMPTED TO FAX AD[facility] YESTER[facility] HOWEVER FAX LINE BUSY, ILEANA SPOKE W/YSABEL AT 11:40AM AND YSABEL REPORTED HER FAX MACHINE WAS FIXED AGAIN AND REQUESTED WE SEND TO [phone] TO REATTEMPT.
--- NOTE | 2022-05-16 12:09 | P.PNIM_ITS ---
Subjective Subjective Date of Service: 05/16/22 Interval History: N o new issues but refusing meds and care today and wants to b e discharged Review of Systems no sob no fever Physical Exam Vital Signs: Vital Signs: Last Vital Signs Temp 96.8 F 05/16/22 08:00 Pulse 57 05/16/22 08:00 Resp 17 05/16/22 08:00 BP 103/68 05/16/22 08:00 Pulse Ox 97 05/16/22 08:00 O2 Del Method 05/16/22 08:00 O2 Flow Rate 2 02/16/22 07:18 FiO2 94 02/13/22 15:38 BMI result Body Mass Index 21.8 Const: Other: General: AO X 2 (self, place), no acute distress Resp: CTA bilateral CVS: S1,S2,RRR GI: +BS, NT, no distention Skin: No rash Neuro: motor grossly intact Psych: flat affect Objective Data Active Medications Acetaminophen (Acetaminophen 325 Mg Tablet) 650 mg PO Q6H PRN PRN Reason: Pain, Mild (Pain Scale 1-3) Atorvastatin Calcium (Atorvastatin Calcium 40 Mg Tablet) 40 mg PO DAILY [facility] Last Admin: 05/16/22 10:00 Dose: Not Given Documented By: MARK Non-Admin Reason: Patient Refused Dextrose (Dextrose 50 % 25 Gm/50 Ml Syringe) 25 gm IVPUSH Q15M PRN; Protocol PRN Reason: per Hypoglycemia Standing Ord. Divalproex Sodium (Divalproex Sodium Er 250 Mg Tab.Er.24h) 250 mg PO DAILY@1700 [facility] Last Admin: 05/15/22 16:49 Dose: 250 mg Documented By: MARK Divalproex Sodium (Divalproex Sodium Er 500 Mg Tab.Er.24h) 500 mg PO DAILY [facility] Last Admin: 05/16/22 10:00 Dose: Not Given Documented By: MARK Non-Admin Reason: Patient Refused Ferrous Sulfate (Ferrous Sulfate 324 Mg Tablet.) 324 mg PO BID [facility] Last Admin: 05/16/22 10:00 Dose: Not Given Documented By: MARK Non-Admin Reason: Patient Refused Fluticasone Propionate (Fluticasone Propionate Nasal 16 Gm [place]) 1 spray NOSTRIL-B BID [facility] Last Admin: 05/16/22 10:00 Dose: Not Given Documented By: MARK Non-Admin Reason: Patient Refused Furosemide (Furosemide 40 Mg Tablet) 40 mg PO BID@0900,1800 [facility]; Protocol Last Admin: 05/14/22 11:45 Dose: 40 mg Documented By: BRENNON Glucose (Glucose Gel 15 Gm Gel..Gram.) 15 gm PO Q15M PRN; Protocol PRN Reason: per Hypoglycemia Standing Ord. Haloperidol (Haloperidol 5 Mg Tablet) 10 mg PO BID [facility] Last Admin: 05/16/22 10:00 Dose: Not Given Documented By: MARK Non-Admin Reason: Patient Refused Insulin Glargine (Insulin Glargine,Hum.Rec.Anlog 100 Unit/Ml 10 Ml Vial) 10 unit SUBCUT BEDTIME [facility] Last Admin: 05/15/22 20:29 Dose: 10 unit Documented By: DENISE Insulin Human Lispro (Insulin Lispro 100 Unit/Ml 3 Ml Vial) 0 unit SUBCUT QIDACHS [facility]; Protocol Last Admin: 05/16/22 09:51 Dose: Not Given Documented By: MARK Non-Admin Reason: No Insulin Coverage Melatonin (Melatonin 3 Mg Tablet) 6 mg PO BEDTIME PRN PRN Reason: Insomnia Last Admin: 05/06/22 20:12 Dose: 6 mg Documented By: CASTILScooby Neomycin/Polymyxin/Hydrocortisone (Neomycin/Polymyxin/Hc Otic Melanie 10 Ml Drpbtl) 3 drop EAR-RIGHT QID [facility] Last Admin: 05/16/22 10:00 Dose: Not Given Documented By: MARK Non-Admin Reason: Patient Refused Olanzapine (Olanzapine Odt 10 Mg Tab.Rapdis) 5 mg TRANSLINGU BID PRN PRN Reason: agitation, psychosis Last Admin: 03/15/22 19:48 Dose: 5 mg Documented By: GENIE Omeprazole (Omeprazole 20 Mg Capsule.Dr) 20 mg PO DAILY@0630 [facility] Last Admin: 05/16/22 05:58 Dose: Not Given Documented By: DENISE Non-Admin Reason: Patient Refused Senna (Sennosides 8.6 Mg Tablet) 17.2 mg PO BEDTIME PRN PRN Reason: Constipation Sildenafil Citrate (Sildenafil Citrate 20 Mg Tablet) 20 mg PO TID [facility] Last Admin: 05/16/22 10:00 Dose: Not Given Documented By: MARK Non-Admin Reason: Patient Refused Sitagliptin Phosphate (Sitagliptin Phosphate 100 Mg Tablet) 100 mg PO DAILY [facility] Last Admin: 05/10/22 09:04 Dose: Not Given Documented By: MANSOOR Non-Admin Reason: Patient Refused Labs CBC & Chem 7: 04/23/22 07:52 05/11/22 08:12 Labs: Laboratory Results - last 24 hr 05/15/22 05/15/22 05/16/22 15:06 19:07 09:42 POC Glucose 119 H 173 H 120 H Assessment and Plan (1) Schizo affective schizophrenia: Status: Acute Plan 61-year-old male with a past medical history of schizophrenia, CHF, asthma/COPD, diabetes, hyperlipidemia [place] [facility] with a chief complaint of acute hypoxia. Noted to have following conditions essentially no new issues but he is refusing meds today and upset that he's not dischargd No further episodes of elopement, continue close observation, Camera in room Acute hypoxic respiratory failure on presentation suspected d/t COPD/asthma/CHF. Resolved Acute asthma/COPD, chronic intermittent No acute symptoms, continue bronchodilator, Patient has no formal diagnosis.? Patient is supposed to be following up with pulmonology as outpatient.? He? had similar presentation in December 2021. Pulmonary HTN Asymptomatic,? continue Viagra, outpatient follow up Heart failure with preserved ejection fraction EF 55 to 60,no acute exacerbation, continue oral Lasix 40 bid Diabetes/hyperglycemia blood sugars? in acceptable range continue lantus,? SSI, metformin and Sitagliptin schizoaffective disorder Continue home Depakote, haloperidol DVT prophylaxis:? Lovenox Code status: Full code.? Confirmed with the patient's guardian [facility] proxy invoked. Lacks capacity for medical decision, awaiting permanent placement. out of bed,ambulate with supervision. Need for inpatient : awaiting ,placement have a court day coming next week and will commplete medical certificate Quality Stroke Does the patient have a stroke diagnosis?: No VTE Prior VTE?: No VTE Risk Level:: Medical - moderate - high VTE Device Contraindication: Treatment Not Indicated VTE Drug Contraindication: N/A - Med Ordered
[2022-05-16 13:49] VITALS: BMI 21.8
[2022-05-16 15:11] VITALS: BP 111/63; PULSE 76; RESP 17; TEMP 36.6; O2SAT 95
[2022-05-16] MEDS: Divalproex Sodium ER 250 MG TAB.ER.24H PO (15:22)
[2022-05-16] MEDS: Sildenafil Citrate 20 MG TABLET PO ×2 (15:22→19:43)
[2022-05-16 16:15] LABS: Glucose, Whole Blood 113 mg/dL (60-115)
[2022-05-16 19:35] LABS: Glucose, Whole Blood 157 mg/dL (60-115)
[2022-05-16] MEDS: Ferrous Sulfate 324 MG TABLET.DR PO (19:43)
[2022-05-16] MEDS: HaloperidoL 5 MG TABLET 10 MG PO (19:43)
[2022-05-16] MEDS: Insulin Glargine,Hum.rec.anlog 100 UNIT/ML 10 ML VIAL 10 UNIT SUBCUT (19:43)
[2022-05-17 07:53] VITALS: BP 108/69; PULSE 72; RESP 17; TEMP 36.6; O2SAT 96
--- NOTE | 2022-05-17 12:22 | HO.PM.IMPN ---
Subjective Subjective Date of Service: 05/17/22 Interval History: No new issues, cooperative today Review of Systems no sob no fever Physical Exam Vital Signs: Vital Signs: Last Vital Signs Temp 97.9 F 05/17/22 07:53 Pulse 72 05/17/22 07:53 Resp 17 05/17/22 07:53 BP 108/69 05/17/22 07:53 Pulse Ox 96 05/17/22 07:53 O2 Del Method 05/17/22 07:53 O2 Flow Rate 2 02/16/22 07:18 FiO2 94 02/13/22 15:38 BMI result Body Mass Index 21.8 Const: Other: General: AO X 2 (self, place), no acute distress Resp: CTA bilateral CVS: S1,S2,RRR GI: +BS, NT, no distention Skin: No rash Neuro: motor grossly intact Psych: flat affect Objective Data Active Medications Acetaminophen (Acetaminophen 325 Mg Tablet) 650 mg PO Q6H PRN PRN Reason: Pain, Mild (Pain Scale 1-3) Atorvastatin Calcium (Atorvastatin Calcium 40 Mg Tablet) 40 mg PO DAILY [facility] Last Admin: 05/17/22 08:13 Dose: Not Given Documented By: CONNIE Non-Admin Reason: Patient Refused Dextrose (Dextrose 50 % 25 Gm/50 Ml Syringe) 25 gm IVPUSH Q15M PRN; Protocol PRN Reason: per Hypoglycemia Standing Ord. Divalproex Sodium (Divalproex Sodium Er 250 Mg Tab.Er.24h) 250 mg PO DAILY@1700 [facility] Last Admin: 05/16/22 15:22 Dose: 250 mg Documented By: NATHAN Divalproex Sodium (Divalproex Sodium Er 500 Mg Tab.Er.24h) 500 mg PO DAILY [facility] Last Admin: 05/17/22 08:13 Dose: Not Given Documented By: CONNIE Non-Admin Reason: Patient Refused Ferrous Sulfate (Ferrous Sulfate 324 Mg Tablet.) 324 mg PO BID [facility] Last Admin: 05/17/22 08:13 Dose: Not Given Documented By: CONNIE Non-Admin Reason: Patient Refused Fluticasone Propionate (Fluticasone Propionate Nasal 16 Gm [place]) 1 spray NOSTRIL-B BID [facility] Last Admin: 05/17/22 08:13 Dose: Not Given Documented By: CONNIE Non-Admin Reason: Patient Refused Furosemide (Furosemide 40 Mg Tablet) 40 mg PO BID@0900,1800 [facility]; Protocol Last Admin: 05/14/22 11:45 Dose: 40 mg Documented By: BRENNON Glucose (Glucose Gel 15 Gm Gel..Gram.) 15 gm PO Q15M PRN; Protocol PRN Reason: per Hypoglycemia Standing Ord. Haloperidol (Haloperidol 5 Mg Tablet) 10 mg PO BID [facility] Last Admin: 05/17/22 08:14 Dose: Not Given Documented By: CONNIE Non-Admin Reason: Patient Refused Insulin Glargine (Insulin Glargine,Hum.Rec.Anlog 100 Unit/Ml 10 Ml Vial) 10 unit SUBCUT BEDTIME [facility] Last Admin: 05/16/22 19:43 Dose: 10 unit Documented By: DENISE Insulin Human Lispro (Insulin Lispro 100 Unit/Ml 3 Ml Vial) 0 unit SUBCUT QIDACHS [facility]; Protocol Last Admin: 05/17/22 12:10 Dose: Not Given Documented By: CONNIE Non-Admin Reason: Patient Refused Melatonin (Melatonin 3 Mg Tablet) 6 mg PO BEDTIME PRN PRN Reason: Insomnia Last Admin: 05/06/22 20:12 Dose: 6 mg Documented By: CASTILM Neomycin/Polymyxin/Hydrocortisone (Neomycin/Polymyxin/Hc Otic Melanie 10 Ml Drpbtl) 3 drop EAR-RIGHT QID [facility] Last Admin: 05/17/22 12:10 Dose: Not Given Documented By: CONNIE Non-Admin Reason: Patient Refused Olanzapine (Olanzapine Odt 10 Mg Tab.Rapdis) 5 mg TRANSLINGU BID PRN PRN Reason: agitation, psychosis Last Admin: 03/15/22 19:48 Dose: 5 mg Documented By: GENIE Omeprazole (Omeprazole 20 Mg Capsule.Dr) 20 mg PO DAILY@0630 [facility] Last Admin: 05/17/22 04:44 Dose: Not Given Documented By: DENISE Non-Admin Reason: Patient Refused Senna (Sennosides 8.6 Mg Tablet) 17.2 mg PO BEDTIME PRN PRN Reason: Constipation Sildenafil Citrate (Sildenafil Citrate 20 Mg Tablet) 20 mg PO TID [facility] Last Admin: 05/17/22 08:14 Dose: Not Given Documented By: CONNIE Non-Admin Reason: Patient Refused Sitagliptin Phosphate (Sitagliptin Phosphate 100 Mg Tablet) 100 mg PO DAILY [facility] Last Admin: 05/10/22 09:04 Dose: Not Given Documented By: MANSOOR Non-Admin Reason: Patient Refused Labs CBC & Chem 7: 04/23/22 07:52 05/11/22 08:12 Labs: Laboratory Results - last 24 hr 05/16/22 05/16/22 15:14 19:18 POC Glucose 113 157 H Assessment and Plan (1) Schizo affective schizophrenia: Status: Acute Plan 61-year-old male with a past medical history of schizophrenia, CHF, asthma/COPD, diabetes, hyperlipidemia [facility]. Noted to have following conditions essentially no new issues, cooperative today No further episodes of elopement, continue close observation, Camera in room Acute hypoxic respiratory failure on presentation suspected d/t COPD/asthma/CHF. Resolved Acute asthma/COPD, chronic intermittent No acute symptoms, continue bronchodilator, Patient has no formal diagnosis.? Patient is supposed to be following up with pulmonology as outpatient.? He? had similar presentation in December 2021. Pulmonary HTN Asymptomatic,? continue Viagra, outpatient follow up Heart failure with preserved ejection fraction EF 55 to 60,no acute exacerbation, continue oral Lasix 40 bid Diabetes/hyperglycemia blood sugars? in acceptable range continue lantus,? SSI, metformin and Sitagliptin schizoaffective disorder Continue home Depakote, haloperidol DVT prophylaxis:? Lovenox Code status: Full code.? Confirmed with the patient's guardian [facility] proxy invoked. Lacks capacity for medical decision, awaiting permanent placement. out of bed,ambulate with supervision. Need for inpatient : awaiting ,placement have a court day coming next week and will commplete medical certificate Quality Stroke Does the patient have a stroke diagnosis?: No VTE Prior VTE?: No VTE Risk Level:: Medical - moderate - high VTE Device Contraindication: Treatment Not Indicated VTE Drug Contraindication: N/A - Med Ordered
--- NOTE | 2022-05-17 13:35 | MHC.CM.PN ---
EMR REVIEWED, PT REMAINS MEDICALLY CLEARED FRO D/C. CM ATTEMPTED TO REACH [facility] ADMISSIONS AT [facility] TO FOLLOW-UP ON REFERRAL AND ADDITIONAL DOCUMENTS THAT WERE FAXED SUCCESSFULLY YESTERDAY 05/16, NO ANSWER AND MESSAGE LEFT W/CM CONTACT NUMBER.
[2022-05-17 15:27] VITALS: BP 119/69; PULSE 59; RESP 18; TEMP 37; O2SAT 96
[2022-05-17 15:40] LABS: Glucose, Whole Blood 107 mg/dL (60-115)
[2022-05-17] MEDS: Divalproex Sodium ER 250 MG TAB.ER.24H PO (16:07)
[2022-05-17 19:35] LABS: Glucose, Whole Blood 180 mg/dL (60-115)
[2022-05-17] MEDS: Insulin Lispro 100 UNIT/ML 3 ML VIAL SUBCUT (20:42)
[2022-05-17] MEDS: Insulin Glargine,Hum.rec.anlog 100 UNIT/ML 10 ML VIAL 10 UNIT SUBCUT (20:43)
[2022-05-17] MEDS: HaloperidoL 5 MG TABLET 10 MG PO (20:44)
[2022-05-17] MEDS: Ferrous Sulfate 324 MG TABLET.DR PO (20:44)
[2022-05-17] MEDS: Sildenafil Citrate 20 MG TABLET PO (20:44)
[2022-05-17] MEDS: NeoMYCIN/Polymyxin/HC Otic Sus 10 ML DRPBTL 3 DROP EAR-RIGHT (20:45)
[2022-05-17 23:38] VITALS: BP 103/71; PULSE 60; RESP 17; TEMP 36.1; O2SAT 96
[2022-05-18 07:46] LABS: Glucose, Whole Blood 151 mg/dL (60-115)
--- NOTE | 2022-05-18 07:59 | HO.PM.IMPN ---
Subjective Subjective Date of Service: 05/18/22 Interval History: No new issues, he's angry today Review of Systems no sob no fever Physical Exam Vital Signs: Vital Signs: Last Vital Signs Temp 96.9 F 05/17/22 23:38 Pulse 60 05/17/22 23:38 Resp 17 05/17/22 23:38 BP 103/71 05/17/22 23:38 Pulse Ox 96 05/17/22 23:38 O2 Del Method 05/17/22 23:38 O2 Flow Rate 2 02/16/22 07:18 FiO2 94 02/13/22 15:38 BMI result Body Mass Index 21.8 Const: Other: General: AO X 2 (self, place), no acute distress Resp: CTA bilateral CVS: S1,S2,RRR GI: +BS, NT, no distention Skin: No rash Neuro: motor grossly intact Psych: flat affect Objective Data Active Medications Acetaminophen (Acetaminophen 325 Mg Tablet) 650 mg PO Q6H PRN PRN Reason: Pain, Mild (Pain Scale 1-3) Atorvastatin Calcium (Atorvastatin Calcium 40 Mg Tablet) 40 mg PO DAILY [facility] Last Admin: 05/17/22 08:13 Dose: Not Given Documented By: CONNIE Non-Admin Reason: Patient Refused Dextrose (Dextrose 50 % 25 Gm/50 Ml Syringe) 25 gm IVPUSH Q15M PRN; Protocol PRN Reason: per Hypoglycemia Standing Ord. Divalproex Sodium (Divalproex Sodium Er 250 Mg Tab.Er.24h) 250 mg PO DAILY@1700 [facility] Last Admin: 05/17/22 16:07 Dose: 250 mg Documented By: CONNIE Divalproex Sodium (Divalproex Sodium Er 500 Mg Tab.Er.24h) 500 mg PO DAILY [facility] Last Admin: 05/17/22 08:13 Dose: Not Given Documented By: CONNIE Non-Admin Reason: Patient Refused Ferrous Sulfate (Ferrous Sulfate 324 Mg Tablet.) 324 mg PO BID [facility] Last Admin: 05/17/22 20:44 Dose: 324 mg Documented By: ARRON Fluticasone Propionate (Fluticasone Propionate Nasal 16 Gm [place]) 1 spray NOSTRIL-B BID [facility] Last Admin: 05/17/22 21:20 Dose: Not Given Documented By: ARRON Non-Admin Reason: Patient Refused Furosemide (Furosemide 40 Mg Tablet) 40 mg PO BID@0900,1800 [facility]; Protocol Last Admin: 05/14/22 11:45 Dose: 40 mg Documented By: BRENNON Glucose (Glucose Gel 15 Gm Gel..Gram.) 15 gm PO Q15M PRN; Protocol PRN Reason: per Hypoglycemia Standing Ord. Haloperidol (Haloperidol 5 Mg Tablet) 10 mg PO BID [facility] Last Admin: 05/17/22 20:44 Dose: 10 mg Documented By: ARRON Insulin Glargine (Insulin Glargine,Hum.Rec.Anlog 100 Unit/Ml 10 Ml Vial) 10 unit SUBCUT BEDTIME [facility] Last Admin: 05/17/22 20:43 Dose: 10 unit Documented By: ARRON Insulin Human Lispro (Insulin Lispro 100 Unit/Ml 3 Ml Vial) 0 unit SUBCUT QIDACHS [facility]; Protocol Last Admin: 05/17/22 20:42 Dose: 2 unit Documented By: ARRON Melatonin (Melatonin 3 Mg Tablet) 6 mg PO BEDTIME PRN PRN Reason: Insomnia Last Admin: 05/06/22 20:12 Dose: 6 mg Documented By: CASTILM Neomycin/Polymyxin/Hydrocortisone (Neomycin/Polymyxin/Hc Otic Melanie 10 Ml Drpbtl) 3 drop EAR-RIGHT QID [facility] Last Admin: 05/17/22 20:45 Dose: 3 drop Documented By: ARRON Olanzapine (Olanzapine Odt 10 Mg Tab.Rapdis) 5 mg TRANSLINGU BID PRN PRN Reason: agitation, psychosis Last Admin: 03/15/22 19:48 Dose: 5 mg Documented By: GENIE Omeprazole (Omeprazole 20 Mg Capsule.Dr) 20 mg PO DAILY@0630 [facility] Last Admin: 05/18/22 06:08 Dose: Not Given Documented By: ARRON Non-Admin Reason: Patient Refused Senna (Sennosides 8.6 Mg Tablet) 17.2 mg PO BEDTIME PRN PRN Reason: Constipation Sildenafil Citrate (Sildenafil Citrate 20 Mg Tablet) 20 mg PO TID [facility] Last Admin: 05/17/22 20:44 Dose: 20 mg Documented By: ARRON Sitagliptin Phosphate (Sitagliptin Phosphate 100 Mg Tablet) 100 mg PO DAILY [facility] Last Admin: 05/10/22 09:04 Dose: Not Given Documented By: MANSOOR Non-Admin Reason: Patient Refused Labs CBC & Chem 7: 04/23/22 07:52 05/11/22 08:12 Labs: Laboratory Results - last 24 hr 05/17/22 05/17/22 05/18/22 15:30 19:29 07:39 POC Glucose 107 180 H 151 H Assessment and Plan (1) Schizo affective schizophrenia: Status: Acute Plan 61-year-old male with a past medical history of schizophrenia, CHF, asthma/COPD, diabetes, hyperlipidemia [facility] with [facility] chief complaint of acute [facility]. Noted to have following conditions essentially no new issues, he's angry today about still being here No further episodes of elopement, continue close observation, Camera in room Acute hypoxic respiratory failure on presentation suspected d/t COPD/asthma/CHF. Resolved Acute asthma/COPD, chronic intermittent No acute symptoms, continue bronchodilator, Patient has no formal diagnosis.? Patient is supposed to be following up with pulmonology as outpatient.? He? had similar presentation in December 2021. Pulmonary HTN Asymptomatic,? continue Viagra, outpatient follow up Heart failure with preserved ejection fraction EF 55 to 60,no acute exacerbation, continue oral Lasix 40 bid Diabetes/hyperglycemia blood sugars? in acceptable range continue lantus,? SSI, metformin and Sitagliptin schizoaffective disorder Continue home Depakote, haloperidol DVT prophylaxis:? Lovenox Code status: Full code.? Confirmed with the patient's guardian [facility] proxy invoked. Lacks capacity for medical decision, awaiting permanent placement. out of bed,ambulate with supervision. Need for inpatient : awaiting ,placement have a court day coming next week and will commplete medical certificate Quality Stroke Does the patient have a stroke diagnosis?: No VTE Prior VTE?: No VTE Risk Level:: Medical - moderate - high VTE Device Contraindication: Treatment Not Indicated VTE Drug Contraindication: N/A - Med Ordered
[2022-05-18] MEDS: HaloperidoL 5 MG TABLET 10 MG PO ×2 (08:50→20:22)
[2022-05-18] MEDS: Ferrous Sulfate 324 MG TABLET.DR PO ×2 (08:50→20:24)
[2022-05-18] MEDS: Divalproex Sodium ER 500 MG TAB.ER.24H PO (08:50)
[2022-05-18] MEDS: Atorvastatin Calcium 40 MG TABLET PO (08:50)
[2022-05-18] MEDS: Sildenafil Citrate 20 MG TABLET PO ×2 (08:50→16:47)
--- NOTE | 2022-05-18 09:54 | MHC.CLN ---
F/U UNSTAGEABLE RIGHT FOOT WOUND IDENTIFIED 05/14. DIET=DIABETIC 2000 KCALS, CARDIAC, 1800 ML FLUID RESTRICTION. INTAKE AT MEALS USUALLY VERY GOOD/EXCELLENT. NO ADDITIONAL NUTRITION INTERVENTIONS AT THIS TIME. RD TO FOLLOW WEEKLY.
[2022-05-18 12:28] LABS: Glucose, Whole Blood 236 mg/dL (60-115)
[2022-05-18 15:13] VITALS: BP 116/68; PULSE 64; RESP 17; TEMP 36.2; O2SAT 98
[2022-05-18 16:01] LABS: Glucose, Whole Blood 192 mg/dL (60-115)
[2022-05-18] MEDS: Insulin Lispro 100 UNIT/ML 3 ML VIAL SUBCUT (16:47)
[2022-05-18] MEDS: Divalproex Sodium ER 250 MG TAB.ER.24H PO (16:47)
[2022-05-18 19:32] LABS: Glucose, Whole Blood 151 mg/dL (60-115)
[2022-05-18] MEDS: Insulin Glargine,Hum.rec.anlog 100 UNIT/ML 10 ML VIAL 10 UNIT SUBCUT (20:22)
--- NOTE | 2022-05-19 07:46 | P.PNIM_ITS ---
Subjective Subjective Date of Service: 05/19/22 Interval History: No new issues, he's still angry today and refusing vitals and meds Review of Systems no sob no fever Physical Exam Vital Signs: Vital Signs: Last Vital Signs Temp 97.1 F 05/18/22 15:13 Pulse 64 05/18/22 15:13 Resp 17 05/18/22 15:13 BP 116/68 05/18/22 15:13 Pulse Ox 98 05/18/22 15:13 O2 Del Method 05/18/22 15:13 O2 Flow Rate 2 02/16/22 07:18 FiO2 94 02/13/22 15:38 BMI result Body Mass Index 21.8 Const: Other: refused exam Objective Data Active Medications Acetaminophen (Acetaminophen 325 Mg Tablet) 650 mg PO Q6H PRN PRN Reason: Pain, Mild (Pain Scale 1-3) Atorvastatin Calcium (Atorvastatin Calcium 40 Mg Tablet) 40 mg PO DAILY [facility] Last Admin: 05/18/22 08:50 Dose: 40 mg Documented By: LUCILA Dextrose (Dextrose 50 % 25 Gm/50 Ml Syringe) 25 gm IVPUSH Q15M PRN; Protocol PRN Reason: per Hypoglycemia Standing Ord. Divalproex Sodium (Divalproex Sodium Er 250 Mg Tab.Er.24h) 250 mg PO DAILY@1700 [facility] Last Admin: 05/18/22 16:47 Dose: 250 mg Documented By: LUCILA Divalproex Sodium (Divalproex Sodium Er 500 Mg Tab.Er.24h) 500 mg PO DAILY [facility] Last Admin: 05/18/22 08:50 Dose: 500 mg Documented By: LUCILA Ferrous Sulfate (Ferrous Sulfate 324 Mg Tablet.) 324 mg PO BID [facility] Last Admin: 05/18/22 20:24 Dose: 324 mg Documented By: COURTNEYRINL Fluticasone Propionate (Fluticasone Propionate Nasal 16 Gm [place]) 1 spray NOSTRIL-B BID [facility] Last Admin: 05/18/22 20:25 Dose: Not Given Documented By: COURTNEYRINL Non-Admin Reason: Patient Refused Furosemide (Furosemide 40 Mg Tablet) 40 mg PO BID@0900,1800 [facility]; Protocol Last Admin: 05/14/22 11:45 Dose: 40 mg Documented By: BRENNON Glucose (Glucose Gel 15 Gm Gel..Gram.) 15 gm PO Q15M PRN; Protocol PRN Reason: per Hypoglycemia Standing Ord. Haloperidol (Haloperidol 5 Mg Tablet) 10 mg PO BID [facility] Last Admin: 05/18/22 20:22 Dose: 10 mg Documented By: YUDI Insulin Glargine (Insulin Glargine,Hum.Rec.Anlog 100 Unit/Ml 10 Ml Vial) 10 unit SUBCUT BEDTIME [facility] Last Admin: 05/18/22 20:22 Dose: 10 unit Documented By: YUDI Insulin Human Lispro (Insulin Lispro 100 Unit/Ml 3 Ml Vial) 0 unit SUBCUT QIDACHS [facility]; Protocol Last Admin: 05/18/22 20:26 Dose: Not Given Documented By: YUDI Non-Admin Reason: Patient Refused Melatonin (Melatonin 3 Mg Tablet) 6 mg PO BEDTIME PRN PRN Reason: Insomnia Last Admin: 05/06/22 20:12 Dose: 6 mg Documented By: CASTILScooby Neomycin/Polymyxin/Hydrocortisone (Neomycin/Polymyxin/Hc Otic Melanie 10 Ml Drpbtl) 3 drop EAR-RIGHT QID [facility] Last Admin: 05/18/22 20:26 Dose: Not Given Documented By: YUDI Non-Admin Reason: Patient Refused Olanzapine (Olanzapine Odt 10 Mg Tab.Rapdis) 5 mg TRANSLINGU BID PRN PRN Reason: agitation, psychosis Last Admin: 03/15/22 19:48 Dose: 5 mg Documented By: GENIE Omeprazole (Omeprazole 20 Mg Capsule.Dr) 20 mg PO DAILY@0630 [facility] Last Admin: 05/19/22 04:53 Dose: Not Given Documented By: YUDI Non-Admin Reason: Patient Refused Senna (Sennosides 8.6 Mg Tablet) 17.2 mg PO BEDTIME PRN PRN Reason: Constipation Sildenafil Citrate (Sildenafil Citrate 20 Mg Tablet) 20 mg PO TID [facility] Last Admin: 05/18/22 20:28 Dose: Not Given Documented By: YUDI Non-Admin Reason: Patient Refused Sitagliptin Phosphate (Sitagliptin Phosphate 100 Mg Tablet) 100 mg PO DAILY [facility] Last Admin: 05/10/22 09:04 Dose: Not Given Documented By: MANSOOR Non-Admin Reason: Patient Refused Labs CBC & Chem 7: 04/23/22 07:52 05/11/22 08:12 Labs: Laboratory Results - last 24 hr 05/18/22 05/18/22 05/18/22 07:39 12:17 15:54 POC Glucose 151 H 236 H 192 H 05/18/22 19:24 POC Glucose 151 H Assessment and Plan (1) Schizo affective schizophrenia: Status: Acute Plan 61-year-old male with a past medical history of schizophrenia, CHF, asthma/COPD, diabetes, hyperlipidemia presented from the [facility] with a chief complaint of acute hypoxia. Noted to have following conditions essentially no new issues, he's angry today refusing care, will try later, he usual gets better as day goes on No further episodes of elopement, continue close observation, Camera in room Acute hypoxic respiratory failure on presentation suspected d/t COPD/asthma/CHF. Resolved Acute asthma/COPD, chronic intermittent No acute symptoms, continue bronchodilator, Patient has no formal diagnosis.? Patient is supposed to be following up with pulmonology as outpatient.? He? had similar presentation in December 2021. Pulmonary HTN Asymptomatic,? continue Viagra, outpatient follow up Heart failure with preserved ejection fraction EF 55 to 60,no acute exacerbation, continue oral Lasix 40 bid Diabetes/hyperglycemia blood sugars? in acceptable range continue lantus,? SSI, metformin and Sitagliptin schizoaffective disorder Continue home Depakote, haloperidol DVT prophylaxis:? Lovenox Code status: Full code.? Confirmed with the patient's guardian [facility] proxy invoked. Lacks capacity for medical decision, awaiting permanent placement. out of bed,ambulate with supervision. Need for inpatient : awaiting ,placement have a court day coming next week and will commplete medical certificate Quality Stroke Does the patient have a stroke diagnosis?: No VTE Prior VTE?: No VTE Risk Level:: Medical - moderate - high VTE Device Contraindication: Treatment Not Indicated VTE Drug Contraindication: N/A - Med Ordered
[2022-05-19 11:34] LABS: Glucose, Whole Blood 158 mg/dL (60-115)
[2022-05-19 15:11] VITALS: BP 113/64; PULSE 78; RESP 17; TEMP 36.3; O2SAT 94
[2022-05-19 15:57] LABS: Glucose, Whole Blood 179 mg/dL (60-115)
--- NOTE | 2022-05-19 16:33 | PC.NURSE ---
Patient refusing his 1500 and 1700 medication. Along with his 1630 Insulin. Patient educated on importance of medication and continues to decline. States he is tired and wants to be left alone. Will attempt again.
[2022-05-19] MEDS: Insulin Lispro 100 UNIT/ML 3 ML VIAL SUBCUT ×2 (16:57→21:12)
[2022-05-19] MEDS: Divalproex Sodium ER 250 MG TAB.ER.24H PO (16:57)
[2022-05-19] MEDS: Sildenafil Citrate 20 MG TABLET PO ×2 (16:57→21:14)
[2022-05-19] MEDS: Ferrous Sulfate 324 MG TABLET.DR PO (19:32)
[2022-05-19] MEDS: HaloperidoL 5 MG TABLET 10 MG PO (19:32)
[2022-05-19 19:59] LABS: Glucose, Whole Blood 213 mg/dL (60-115)
[2022-05-19] MEDS: Insulin Glargine,Hum.rec.anlog 100 UNIT/ML 10 ML VIAL 10 UNIT SUBCUT (21:20)
[2022-05-20] MEDS: Omeprazole 20 MG CAPSULE.DR PO (06:44)
--- NOTE | 2022-05-20 08:24 | P.PNIM_ITS ---
Subjective Subjective Date of Service: 05/20/22 Interval History: cooperative this morning, Review of Systems no sob no fever Physical Exam Vital Signs: Vital Signs: Last Vital Signs Temp 97.3 F 05/19/22 15:11 Pulse 78 05/19/22 15:11 Resp 17 05/19/22 15:11 BP 113/64 05/19/22 15:11 Pulse Ox 94 05/19/22 15:11 O2 Del Method 05/19/22 15:11 O2 Flow Rate 2 02/16/22 07:18 FiO2 94 02/13/22 15:38 BMI result Body Mass Index 21.8 Const: Other: refused exam Objective Data Active Medications Acetaminophen (Acetaminophen 325 Mg Tablet) 650 mg PO Q6H PRN PRN Reason: Pain, Mild (Pain Scale 1-3) Atorvastatin Calcium (Atorvastatin Calcium 40 Mg Tablet) 40 mg PO DAILY [facility] Last Admin: 05/19/22 10:05 Dose: Not Given Documented By: MARK Non-Admin Reason: Patient Refused Dextrose (Dextrose 50 % 25 Gm/50 Ml Syringe) 25 gm IVPUSH Q15M PRN; Protocol PRN Reason: per Hypoglycemia Standing Ord. Divalproex Sodium (Divalproex Sodium Er 250 Mg Tab.Er.24h) 250 mg PO DAILY@1700 [facility] Last Admin: 05/19/22 16:57 Dose: 250 mg Documented By: MAGDALENO Divalproex Sodium (Divalproex Sodium Er 500 Mg Tab.Er.24h) 500 mg PO DAILY [facility] Last Admin: 05/19/22 10:05 Dose: Not Given Documented By: MARK Non-Admin Reason: Patient Refused Ferrous Sulfate (Ferrous Sulfate 324 Mg [place].) 324 mg PO BID [facility] Last Admin: 05/19/22 19:32 Dose: 324 mg Documented By: TEODORO Fluticasone Propionate (Fluticasone Propionate Nasal 16 Gm [place]) 1 spray NOSTRIL-B BID [facility] Last Admin: 05/19/22 21:20 Dose: Not Given Documented By: TEODORO Non-Admin Reason: Patient Refused Furosemide (Furosemide 40 Mg Tablet) 40 mg PO BID@0900,1800 [facility]; Protocol Last Admin: 05/14/22 11:45 Dose: 40 mg Documented By: BRENNON Glucose (Glucose Gel 15 Gm Gel..Gram.) 15 gm PO Q15M PRN; Protocol PRN Reason: per Hypoglycemia Standing Ord. Haloperidol (Haloperidol 5 Mg Tablet) 10 mg PO BID [facility] Last Admin: 05/19/22 19:32 Dose: 10 mg Documented By: TEODORO Insulin Glargine (Insulin Glargine,Hum.Rec.Anlog 100 Unit/Ml 10 Ml Vial) 10 unit SUBCUT BEDTIME [facility] Last Admin: 05/19/22 21:20 Dose: 10 unit Documented By: TEODORO Insulin Human Lispro (Insulin Lispro 100 Unit/Ml 3 Ml Vial) 0 unit SUBCUT QIDACHS [facility]; Protocol Last Admin: 05/19/22 21:12 Dose: 4 unit Documented By: TEODORO Melatonin (Melatonin 3 Mg Tablet) 6 mg PO BEDTIME PRN PRN Reason: Insomnia Last Admin: 05/06/22 20:12 Dose: 6 mg Documented By: SHARONILScooby Neomycin/Polymyxin/Hydrocortisone (Neomycin/Polymyxin/Hc Otic Melanie 10 Ml Drpbtl) 3 drop EAR-RIGHT QID [facility] Last Admin: 05/19/22 21:19 Dose: Not Given Documented By: TEODORO Non-Admin Reason: Patient Refused Olanzapine (Olanzapine Odt 10 Mg Tab.Rapdis) 5 mg TRANSLINGU BID PRN PRN Reason: agitation, psychosis Last Admin: 03/15/22 19:48 Dose: 5 mg Documented By: GENIE Omeprazole (Omeprazole 20 Mg Capsule.Dr) 20 mg PO DAILY@0630 [facility] Last Admin: 05/20/22 06:44 Dose: 20 mg Documented By: TEODORO Senna (Sennosides 8.6 Mg Tablet) 17.2 mg PO BEDTIME PRN PRN Reason: Constipation Sildenafil Citrate (Sildenafil Citrate 20 Mg Tablet) 20 mg PO TID [facility] Last Admin: 05/19/22 21:14 Dose: 20 mg Documented By: TEODORO Sitagliptin Phosphate (Sitagliptin Phosphate 100 Mg Tablet) 100 mg PO DAILY [facility] Last Admin: 05/10/22 09:04 Dose: Not Given Documented By: MANSOOR Non-Admin Reason: Patient Refused Labs CBC & Chem 7: 04/23/22 07:52 05/11/22 08:12 Labs: Laboratory Results - last 24 hr 05/19/22 05/19/2222 11:08 15:13 19:41 POC Glucose 158 H 179 H 213 H Assessment and Plan (1) Schizo affective schizophrenia: Status: Acute Plan 61-year-old male with a past medical history of schizophrenia, CHF, asthma/COPD, diabetes, hyperlipidemia [facility] with a chief complaint of acute hypoxia. Noted to have following conditions essentially no new issues, he's less angry today, cooperative for now No further episodes of elopement, continue close observation, Camera in room Acute hypoxic respiratory failure on presentation suspected d/t COPD/asthma/CHF. Resolved Acute asthma/COPD, chronic intermittent No acute symptoms, continue bronchodilator, Patient has no formal diagnosis.? Patient is supposed to be following up with pulmonology as outpatient.? He? had similar presentation in December 2021. Pulmonary HTN Asymptomatic,? continue Viagra, outpatient follow up Heart failure with preserved ejection fraction EF 55 to 60,no acute exacerbation, continue oral Lasix 40 bid Diabetes/hyperglycemia blood sugars? in acceptable range continue lantus,? SSI, metformin and Sitagliptin schizoaffective disorder Continue home Depakote, haloperidol DVT prophylaxis:? Lovenox Code status: Full code.? Confirmed with the patient's guardian [facility] proxy invoked. Lacks capacity for medical decision, awaiting pe rmanent placement. out of bed,ambulate with supervision. Need for inpatient : awaiting ,placement have a court day tomorrow for temporary guardianship Quality Stroke Does the patient have a stroke diagnosis?: No VTE Prior VTE?: No VTE Risk Level:: Medical - moderate - high VTE Device Contraindication: Treatment Not Indicated VTE Drug Contraindication: N/A - Med Ordered
[2022-05-20 09:09] LABS: Glucose, Whole Blood 113 mg/dL (60-115)
[2022-05-20] MEDS: Divalproex Sodium ER 500 MG TAB.ER.24H PO (09:10)
[2022-05-20] MEDS: Atorvastatin Calcium 40 MG TABLET PO (09:10)
[2022-05-20] MEDS: Sildenafil Citrate 20 MG TABLET PO ×3 (09:10→20:37)
[2022-05-20] MEDS: Ferrous Sulfate 324 MG TABLET.DR PO ×2 (09:10→20:37)
[2022-05-20] MEDS: HaloperidoL 5 MG TABLET 10 MG PO ×2 (09:10→20:37)
[2022-05-20 12:48] LABS: Glucose, Whole Blood 200 mg/dL (60-115)
[2022-05-20] MEDS: Insulin Lispro 100 UNIT/ML 3 ML VIAL SUBCUT ×2 (13:36→17:34)
[2022-05-20 16:00] VITALS: BP 106/62; PULSE 74; RESP 17; TEMP 36.5; O2SAT 96
[2022-05-20 16:20] LABS: Glucose, Whole Blood 199 mg/dL (60-115)
[2022-05-20] MEDS: Divalproex Sodium ER 250 MG TAB.ER.24H PO (17:34)
[2022-05-20 20:07] LABS: Glucose, Whole Blood 197 mg/dL (60-115)
[2022-05-21 07:23] VITALS: BP 109/71; PULSE 72; RESP 20; TEMP 36.2; O2SAT 92
[2022-05-21 07:29] LABS: Glucose, Whole Blood 128 mg/dL (60-115)
[2022-05-21] MEDS: Atorvastatin Calcium 40 MG TABLET PO (07:54)
[2022-05-21] MEDS: Omeprazole 20 MG CAPSULE.DR PO (07:54)
[2022-05-21] MEDS: HaloperidoL 5 MG TABLET 10 MG PO ×2 (07:54→20:09)
[2022-05-21] MEDS: Ferrous Sulfate 324 MG TABLET.DR PO ×2 (07:54→20:10)
[2022-05-21] MEDS: Sildenafil Citrate 20 MG TABLET PO ×3 (07:54→20:09)
[2022-05-21] MEDS: Divalproex Sodium ER 500 MG TAB.ER.24H PO (07:55)
--- NOTE | 2022-05-21 09:38 | HO.PM.IMPN ---
Subjective Subjective Date of Service: 05/21/22 Interval History: Awaiting placement, very agresive today, asked me to get the F* out of the room and want his discharge Review of Systems no sob no fever Physical Exam Vital Signs: Vital Signs: Last Vital Signs Temp 97.2 F 05/21/22 07:23 Pulse 72 05/21/22 07:23 Resp 20 05/21/22 07:23 BP 109/71 05/21/22 07:23 Pulse Ox 92 05/21/22 07:23 O2 Del Method 05/21/22 07:23 O2 Flow Rate 2 02/16/22 07:18 FiO2 94 02/13/22 15:38 BMI result Body Mass Index 21.8 Const: Other: refused exam Objective Data Active Medications Acetaminophen (Acetaminophen 325 Mg Tablet) 650 mg PO Q6H PRN PRN Reason: Pain, Mild (Pain Scale 1-3) Atorvastatin Calcium (Atorvastatin Calcium 40 Mg Tablet) 40 mg PO DAILY [facility] Last Admin: 05/21/22 07:54 Dose: 40 mg Documented By: BRENNON Dextrose (Dextrose 50 % 25 Gm/50 Ml Syringe) 25 gm IVPUSH Q15M PRN; Protocol PRN Reason: per Hypoglycemia Standing Ord. Divalproex Sodium (Divalproex Sodium Er 250 Mg Tab.Er.24h) 250 mg PO DAILY@1700 [facility] Last Admin: 05/20/22 17:34 Dose: 250 mg Documented By: MAGDALENO Divalproex Sodium (Divalproex Sodium Er 500 Mg Tab.Er.24h) 500 mg PO DAILY [facility] Last Admin: 05/21/22 07:55 Dose: 500 mg Documented By: BRENNON Ferrous Sulfate (Ferrous Sulfate 324 Mg Tablet.Dr) 324 mg PO BID [facility] Last Admin: 05/21/22 07:54 Dose: 324 mg Documented By: BRENNON Fluticasone Propionate (Fluticasone Propionate Nasal 16 Gm [place]) 1 spray NOSTRIL-B BID [facility] Last Admin: 05/21/22 07:57 Dose: Not Given Documented By: BRENNON Non-Admin Reason: Patient Refused Furosemide (Furosemide 40 Mg Tablet) 40 mg PO BID@0900,1800 [facility]; Protocol Last Admin: 05/14/22 11:45 Dose: 40 mg Documented By: BRENNON Glucose (Glucose Gel 15 Gm Gel..Gram.) 15 gm PO Q15M PRN; Protocol PRN Reason: per Hypoglycemia Standing Ord. Haloperidol (Haloperidol 5 Mg Tablet) 10 mg PO BID [facility] Last Admin: 05/21/22 07:54 Dose: 10 mg Documented By: BRENNON Insulin Glargine (Insulin Glargine,Hum.Rec.Anlog 100 Unit/Ml 10 Ml Vial) 10 unit SUBCUT BEDTIME [facility] Last Admin: 05/20/22 20:41 Dose: Not Given Documented By: NELSY Non-Admin Reason: Patient Refused Insulin Human Lispro (Insulin Lispro 100 Unit/Ml 3 Ml Vial) 0 unit SUBCUT QIDACHS [facility]; Protocol Last Admin: 05/21/22 07:53 Dose: Not Given Documented By: BRENNON Non-Admin Reason: No Insulin Coverage Melatonin (Melatonin 3 Mg Tablet) 6 mg PO BEDTIME PRN PRN Reason: Insomnia Last Admin: 05/06/22 20:12 Dose: 6 mg Documented By: CASTILScooby Neomycin/Polymyxin/Hydrocortisone (Neomycin/Polymyxin/Hc Otic Melanie 10 Ml Drpbtl) 3 drop EAR-RIGHT QID [facility] Last Admin: 05/21/22 07:57 Dose: Not Given Documented By: BRENNON Non-Admin Reason: Patient Refused Olanzapine (Olanzapine Odt 10 Mg Tab.Rapdis) 5 mg TRANSLINGU BID PRN PRN Reason: agitation, psychosis Last Admin: 03/15/22 19:48 Dose: 5 mg Documented By: GENIE Omeprazole (Omeprazole 20 Mg Capsule.Dr) 20 mg PO DAILY@0630 [facility] Last Admin: 05/21/22 07:54 Dose: 20 mg Documented By: BRENNON Senna (Sennosides 8.6 Mg Tablet) 17.2 mg PO BEDTIME PRN PRN Reason: Constipation Sildenafil Citrate (Sildenafil Citrate 20 Mg Tablet) 20 mg PO TID [facility] Last Admin: 05/21/22 07:54 Dose: 20 mg Documented By: BRENNON Sitagliptin Phosphate (Sitagliptin Phosphate 100 Mg Tablet) 100 mg PO DAILY [facility] Last Admin: 05/10/22 09:04 Dose: Not Given Documented By: MANSOOR Non-Admin Reason: Patient Refused Labs CBC & Chem 7: 04/23/22 07:52 05/11/22 08:12 Labs: Laboratory Results - last 24 hr 05/20/22 05/20/22 05/20/22 12:43 16:10 19:48 POC Glucose 200 H 199 H 197 H 05/21/22 07:22 POC Glucose 128 H Assessment and Plan (1) Schizo affective schizophrenia: Status: Acute Plan 61-year-old male with a past medical history of schizophrenia, CHF, asthma/COPD, diabetes, hyperlipidemia [facility] with a chief complaint of acute [facility]. Noted to have following conditions essentially no new issues, continue current care No further episodes of elopement, continue close observation, Camera in room Acute hypoxic respiratory failure on presentation suspected d/t COPD/asthma/CHF. Resolved Acute asthma/COPD, chronic intermittent No acute symptoms, continue bronchodilator, Patient has no formal diagnosis.? Patient is supposed to be following up with pulmonology as outpatient.? He? had similar presentation in December 2021. Pulmonary HTN Asymptomatic,? continue Viagra, outpatient follow up Heart failure with preserved ejection fraction EF 55 to 60,no acute exacerbation, continue oral Lasix 40 bid Diabetes/hyperglycemia blood sugars? in acceptable range continue lantus,? SSI, metformin and Sitagliptin schizoaffective disorder Continue home Depakote, haloperidol DVT prophylaxis:? Lovenox Code status: Full code.? Confirmed with the patient's guardian [facility] proxy invoked. Lacks capacity for medical decision, awaiting permanent placement. out of bed,ambulate with supervision. Need for inpatient : awaiting ,placement have a court day today for temporary guardianship Quality Stroke Does the patient have a stroke diagnosis?: No VTE Prior VTE?: No VTE Risk Level:: Medical - moderate - high VTE Device Contraindication: Treatment Not Indicated VTE Drug Contraindication: N/A - Med Ordered
[2022-05-21 11:40] LABS: Glucose, Whole Blood 217 mg/dL (60-115)
[2022-05-21 15:20] VITALS: BP 103/55; PULSE 74; RESP 18; TEMP 36.3; O2SAT 96
[2022-05-21 16:04] LABS: Glucose, Whole Blood 222 mg/dL (60-115)
--- NOTE | 2022-05-21 16:25 | MHC.CM.PN ---
ILEANA ATTEMPTED TO [facility]LLLOW UP [facility] AT [facility] AT [facility]2 HOWEVER NO ANSWER AND MESSAGE LEFT W/ILEANA CONTACT INFO, NO OTHER BED OFFERS, CM WILL CONT TO FOLLOW.
[2022-05-21] MEDS: Divalproex Sodium ER 250 MG TAB.ER.24H PO (16:40)
[2022-05-21] MEDS: Insulin Lispro 100 UNIT/ML 3 ML VIAL SUBCUT (16:41)
[2022-05-21 20:02] LABS: Glucose, Whole Blood 173 mg/dL (60-115)
[2022-05-21] MEDS: Insulin Glargine,Hum.rec.anlog 100 UNIT/ML 10 ML VIAL 10 UNIT SUBCUT (20:10)
[2022-05-21 23:44] VITALS: BP 111/62; PULSE 71; RESP 18; TEMP 36.4; O2SAT 95
[2022-05-22] MEDS: Atorvastatin Calcium 40 MG TABLET PO (11:00)
[2022-05-22] MEDS: Ferrous Sulfate 324 MG TABLET.DR PO ×2 (11:00→20:32)
[2022-05-22] MEDS: Sildenafil Citrate 20 MG TABLET PO ×3 (11:00→20:32)
[2022-05-22] MEDS: Divalproex Sodium ER 500 MG TAB.ER.24H PO (11:00)
[2022-05-22] MEDS: HaloperidoL 5 MG TABLET 10 MG PO ×2 (11:00→20:32)
--- NOTE | 2022-05-22 13:29 | HO.PM.IMPN ---
Subjective Subjective Date of Service: 05/22/22 Interval History: Awaiting placement, calm but gets upset when talks Review of Systems no sob or any distress Physical Exam Vital Signs: Vital Signs: Last Vital Signs Temp 97.6 F 05/21/22 23:44 Pulse 71 05/21/22 23:44 Resp 18 05/21/22 23:44 BP 111/62 05/21/22 23:44 Pulse Ox 95 05/21/22 23:44 O2 Del Method 05/21/22 23:44 O2 Flow Rate 2 02/16/22 07:18 FiO2 94 02/13/22 15:38 BMI result Body Mass Index 21.8 refused exam Objective Data Active Medications Acetaminophen (Acetaminophen 325 Mg Tablet) 650 mg PO Q6H PRN PRN Reason: Pain, Mild (Pain Scale 1-3) Atorvastatin Calcium (Atorvastatin Calcium 40 Mg Tablet) 40 mg PO DAILY [facility] Last Admin: 05/22/22 11:00 Dose: 40 mg Documented By: BRENNON Dextrose (Dextrose 50 % 25 Gm/50 Ml Syringe) 25 gm IVPUSH Q15M PRN; Protocol PRN Reason: per Hypoglycemia Standing Ord. Divalproex Sodium (Divalproex Sodium Er 250 Mg Tab.Er.24h) 250 mg PO DAILY@1700 [facility] Last Admin: 05/21/22 16:40 Dose: 250 mg Documented By: BRENNON Divalproex Sodium (Divalproex Sodium Er 500 Mg Tab.Er.24h) 500 mg PO DAILY [facility] Last Admin: 05/22/22 11:00 Dose: 500 mg Documented By: BRENNON Ferrous Sulfate (Ferrous Sulfate 324 Mg Tablet.Dr) 324 mg PO BID [facility] Last Admin: 05/22/22 11:00 Dose: 324 mg Documented By: BRENNON Fluticasone Propionate (Fluticasone Propionate Nasal 16 Gm [place]) 1 spray NOSTRIL-B BID [facility] Last Admin: 05/22/22 11:03 Dose: Not Given Documented By: BRENNON Non-Admin Reason: Patient Refused Furosemide (Furosemide 40 Mg Tablet) 40 mg PO BID@0900,1800 [facility]; Protocol Last Admin: 05/14/22 11:45 Dose: 40 mg Documented By: BRENNON Glucose (Glucose Gel 15 Gm Gel..Gram.) 15 gm PO Q15M PRN; Protocol PRN Reason: per Hypoglycemia Standing Ord. Haloperidol (Haloperidol 5 Mg Tablet) 10 mg PO BID [facility] Last Admin: 05/22/22 11:00 Dose: 10 mg Documented By: BRENNON Insulin Glargine (Insulin Glargine,Hum.Rec.Anlog 100 Unit/Ml 10 Ml Vial) 10 unit SUBCUT BEDTIME [facility] Last Admin: 05/21/22 20:10 Dose: 10 unit Documented By: DENISE Insulin Human Lispro (Insulin Lispro 100 Unit/Ml 3 Ml Vial) 0 unit SUBCUT QIDACHS [facility]; Protocol Last Admin: 05/22/22 12:39 Dose: Not Given Documented By: BRENNON Non-Admin Reason: Patient Refused Melatonin (Melatonin 3 Mg Tablet) 6 mg PO BEDTIME PRN PRN Reason: Insomnia Last Admin: 05/06/22 20:12 Dose: 6 mg Documented By: SHARONILScooby Neomycin/Polymyxin/Hydrocortisone (Neomycin/Polymyxin/Hc Otic Melanie 10 Ml Drpbtl) 3 drop EAR-RIGHT QID [facility] Last Admin: 05/22/22 11:03 Dose: Not Given Documented By: BRENNON Non-Admin Reason: Patient Refused Olanzapine (Olanzapine Odt 10 Mg Tab.Rapdis) 5 mg TRANSLINGU BID PRN PRN Reason: agitation, psychosis Last Admin: 03/15/22 19:48 Dose: 5 mg Documented By: GENIE Omeprazole (Omeprazole 20 Mg Capsule.Dr) 20 mg PO DAILY@0630 [facility] Last Admin: 05/22/22 06:23 Dose: Not Given Documented By: DENISE Non-Admin Reason: Patient Refused Senna (Sennosides 8.6 Mg Tablet) 17.2 mg PO BEDTIME PRN PRN Reason: Constipation Sildenafil Citrate (Sildenafil Citrate 20 Mg Tablet) 20 mg PO TID [facility] Last Admin: 05/22/22 11:00 Dose: 20 mg Documented By: BRENNON Sitagliptin Phosphate (Sitagliptin Phosphate 100 Mg Tablet) 100 mg PO DAILY [facility] Last Admin: 05/10/22 09:04 Dose: Not Given Documented By: MANSOOR Non-Admin Reason: Patient Refused Labs CBC & Chem 7: 04/23/22 07:52 05/11/22 08:12 Labs: Laboratory Results - last 24 hr 05/21/22 05/21/22 15:22 19:15 POC Glucose 222 H 173 H Assessment and Plan (1) Schizo affective schizophrenia: Status: Acute Plan 61-year-old male with a past medical history of schizophrenia, CHF, asthma/COPD, diabetes, hyperlipidemia [facility] with a chief complaint of acute hypoxia. Noted to have following conditions essentially no new issues, continue current care No further episodes of elopement, continue close observation, Camera in room Acute hypoxic respiratory failure on presentation suspected d/t COPD/asthma/CHF. Resolved Acute asthma/COPD, chronic intermittent No acute symptoms, continue bronchodilator, Patient has no formal diagnosis.? Patient is supposed to be following up with pulmonology as outpatient.? He? had similar presentation in December 2021. Pulmonary HTN Asymptomatic,? continue Viagra, outpatient follow up Heart failure with preserved ejection fraction EF 55 to 60,no acute exacerbation, continue oral Lasix 40 bid Diabetes/hyperglycemia blood sugars? in acceptable range continue lantus,? SSI, metformin and Sitagliptin schizoaffective disorder Continue home Depakote, haloperidol DVT prophylaxis:? Lovenox Code status: Full code.? Confirmed with the patient's guardian [facility] proxy invoked. Lacks capacity for medical decision, awaiting permanent placement. out of bed,ambulate with supervision. Need for inpatient : awaiting ,placement inpatient need:have a court day today for temporary guardianship Quality Stroke Does the patient have a stroke diagnosis?: No VTE Prior VTE?: No VTE Risk Level:: Medical - moderate - high VTE Device Contraindication: Treatment Not Indicated VTE Drug Contraindication: N/A - Med Ordered
[2022-05-22 15:27] VITALS: BP 109/66; PULSE 67; RESP 17; TEMP 36.4; O2SAT 97
[2022-05-22 16:02] LABS: Glucose, Whole Blood 214 mg/dL (60-115)
[2022-05-22] MEDS: Divalproex Sodium ER 250 MG TAB.ER.24H PO (16:37)
--- NOTE | 2022-05-22 18:13 | PC.NURSE ---
Pt spent most of the day in his room. OOB independently ambulates in the hallway periodically. Calm and cooperative. Tolerates po well. Showered today. Denies pain. At times pt politely asks to be left alone to rest in his room.
[2022-05-22 19:43] LABS: Glucose, Whole Blood 232 mg/dL (60-115)
[2022-05-22] MEDS: Insulin Glargine,Hum.rec.anlog 100 UNIT/ML 10 ML VIAL 10 UNIT SUBCUT (20:32)
[2022-05-23 07:29] VITALS: BP 117/72; PULSE 63; RESP 16; TEMP 36.4; O2SAT 96
[2022-05-23 07:38] LABS: Glucose, Whole Blood 127 mg/dL (60-115)
--- NOTE | 2022-05-23 09:44 | PM.PSYCN ---
History of Present Illness Date of Service: 05/23/22 Chief Complaint: Acute hypoxic respiratory failure Reason for Consult: reevaluation of mental status, including med review. Requesting physician: Lesvia Rosen Discussed with referring provider: Yes Sources of Information: patient interviewed, chart reviewed and crisis/core team assessment reviewed HPI Narrative: Mr. Bronson is a 61-year-old male, diagnosed with schizophrenia. Presented to [facility] ED on 01/09/2022 from his alf. Patient's O2 saturation was found to be in the 70s. Patient had had a recent admission to the hospital for acute hypoxic respiratory failure in the setting of asthma/COPD/CHF. He was evaluated by Psychiatry on 01/20/2022, due to patient presenting with behavioral issues at that time, including tantrums, crying, refusing interventions, arguing. Plan at that time was to continue Haldol, start zydis 5 mg b.i.d. p.r.n. for agitation, Ativan 1 mg q.6 hours p.r.n. for anxiety. I spoke with patient's complex case manager prior to meeting with patient. She reports he has been doing well, with no behavioral concerns per nursing. Patient is under guardianship, as well as [place] order. He is awaiting placement for long-term care. I evaluated the patient this morning and upon interview he reports ?I am okay ?. He was cooperative, and there was no evidence of any type of behavioral issues such as tantrums, crying, screaming, or arguing. He then stated that he wants to leave the hospital, as he has been here long enough . Overall he was a poor historian and does not express an understanding of his physical health concerns or situation. He he was able to tell me that he is at [facility]. He was able to state the date as May. He stated the year as 2021. He had difficulties with other details, such as day of week or date. When asked why he was in the hospital, he stated ?I came here with a breathing problem ?. He denies any thought of harm to self or others. And denied any type of auditory or visual hallucinations. He did not appear to be responding to any type of internal stimuli during our encounter. He was lying in bed, and appeared comfortable. No abnormal movements or tics were observed. He was agreeable and cooperative throughout in interview. He did states several times that he does not understand why he has been kept in the hospital so long, and that he wishes to be discharged. When asked about his specific medications, he stated ?they are working ?. He then reminisced about living in [place], stated that he grew up there. He was in good behavioral control. Medical Evaluation Reviewed: Yes Personal & Social History: Was residing in alf. Has current guardianship, order for antipsychotic medication in place. Review of Systems Review of Systems A full review of systems was completed and was negative with the exception of pertinent positives noted in history of the presenting illness (HPI). Constitutional: Reports no additional constitutional complaints [facility] Medical History Acute dyspnea Acute respiratory failure Asthma exacerbation CHF (congestive heart failure) Diabetes Hypoxia Malignant otitis externa Pneumonia Diagnostics Vital Signs (24Hr): Vital Signs - 24 hr 05/22/22 15:27 05/23/22 07:29 Temperature 97.6 F 97.5 F Pulse Rate 67 63 Respiratory Rate 17 16 Blood Pressure 109/66 117/72 Pulse Oximetry 97 96 Oxygen Delivery Method Room Air Room Air BMI result Body Mass Index 21.8 Labs Results: 04/23/22 07:52 05/11/22 08:12 Labs: Laboratory Results - last 48 hr 05/21/22 05/21/22 05/21/22 11:35 15:22 19:15 POC Glucose 217 H 222 H 173 H 05/22/22 05/22/22 05/23/22 15:31 19:36 07:31 POC Glucose 214 H 232 H 127 H Imaging Radiology Impressions: ITS Impressions Chest X-Ray 01/09/22 16:52 IMPRESSION: No acute pulmonary finding. Chest CTA 01/11/22 11:05 IMPRESSION: 1. No evidence for pulmonary embolism. 2. Trace right pleural effusion and compressive atelectasis. This was not seen on the previous CT scan. Short-term radiographic follow-up, preferably with PA and lateral views is recommended as clinically indicated. 3. Dilatation of the ascending aorta up to 4.0 cm without significant change. No evidence for dissection. VTE: Negative. Chest X-Ray 01/19/22 09:11 IMPRESSION: Subsegmental atelectasis at the right lung base. Mental Status Exam Mental Status Exam Narrative: Well-developed male, in NAD. Lying in bed, fair grooming. Appears stated age. Somewhat blunted affect. Alert and oriented times 2-3, does not understand need for current hospitalization or situation. Fair eye contact. No tics or tremors, no abnormal movements. Guarded, not easily engageable in conversation. Speech was normal rate and rhythm, normal volume. Describes mood as ?okay ?. Denies SI/HI, AH/VH. No evidence of perceptual disturbance or delusional thought present. Focused on wishing to leave hospital, as he stated he believes his breathing is fine . Ambulation not observed. Insight and judgment poor at this time. Medications Medications Current Medications Acetaminophen (Acetaminophen 325 Mg Tablet) 650 mg PO Q6H PRN PRN Reason: Pain, Mild (Pain Scale 1-3) Atorvastatin Calcium (Atorvastatin Calcium 40 Mg Tablet) 40 mg PO DAILY [facility] Last Admin: 05/22/22 11:00 Dose: 40 mg Dextrose (Dextrose 50 % 25 Gm/50 Ml Syringe) 25 gm IVPUSH Q15M PRN; Protocol PRN Reason: per Hypoglycemia Standing Ord. Divalproex Sodium (Divalproex Sodium Er 250 Mg Tab.Er.24h) 250 mg PO DAILY@1700 [facility] Last Admin: 05/22/22 16:37 Dose: 250 mg Divalproex Sodium (Divalproex Sodium Er 500 Mg Tab.Er.24h) 500 mg PO DAILY [facility] Last Admin: 05/22/22 11:00 Dose: 500 mg Ferrous Sulfate (Ferrous Sulfate 324 Mg Tablet.Dr) 324 mg PO BID [facility] Last Admin: 05/22/22 20:32 Dose: 324 mg Fluticasone Propionate (Fluticasone Propionate Nasal 16 Gm [place]) 1 spray NOSTRIL-B BID [facility] Last Admin: 05/22/22 20:32 Dose: Not Given Furosemide (Furosemide 40 Mg Tablet) 40 mg PO BID@0900,1800 [facility]; Protocol Last Admin: 05/14/22 11:45 Dose: 40 mg Glucose (Glucose Gel 15 Gm Gel..Gram.) 15 gm PO Q15M PRN; Protocol PRN Reason: per Hypoglycemia Standing Ord. Haloperidol (Haloperidol 5 Mg Tablet) 10 mg PO BID [facility] Last Admin: 05/22/22 20:32 Dose: 10 mg Insulin Glargine (Insulin Glargine,Hum.Rec.Anlog 100 Unit/Ml 10 Ml Vial) 10 unit SUBCUT BEDTIME [facility] Last Admin: 05/22/22 20:32 Dose: 10 unit Insulin Human Lispro (Insulin Lispro 100 Unit/Ml 3 Ml Vial) 0 unit SUBCUT QIDACHS [facility]; Protocol Last Admin: 05/23/22 08:03 Dose: Not Given Melatonin (Melatonin 3 Mg Tablet) 6 mg PO BEDTIME PRN PRN Reason: Insomnia Last Admin: 05/06/22 20:12 Dose: 6 mg Neomycin/Polymyxin/Hydrocortisone (Neomycin/Polymyxin/Hc Otic Melanie 10 Ml Drpbtl) 3 drop EAR-RIGHT QID [facility] Last Admin: 05/22/22 20:33 Dose: Not Given Olanzapine (Olanzapine Odt 10 Mg Tab.Rapdis) 5 mg TRANSLINGU BID PRN PRN Reason: agitation, psychosis Last Admin: 03/15/22 19:48 Dose: 5 mg Omeprazole (Omeprazole 20 Mg Capsule.Dr) 20 mg PO DAILY@0630 [facility] Last Admin: 05/23/22 06:00 Dose: Not Given Senna (Sennosides 8.6 Mg Tablet) 17.2 mg PO BEDTIME PRN PRN Reason: Constipation Sildenafil Citrate (Sildenafil Citrate 20 Mg Tablet) 20 mg PO TID [facility] Last Admin: 05/22/22 20:32 Dose: 20 mg Sitagliptin Phosphate (Sitagliptin Phosphate 100 Mg Tablet) 100 mg PO DAILY [facility] Last Admin: 05/10/22 09:04 Dose: Not Given Allergies Allergies Allergy/AdvReac Type Severity Reaction Status Date / Time No Known Allergies Allergy Verified 11/05/21 22:25 Assessment & Plan Assessment & Plan (1) Schizo affective schizophrenia: Status: Acute Code(s): F25.9 - Schizoaffective disorder, unspecified Assessment and Plan: Patient denies any thought or intent of self-harm or harm to others, denies any perceptual disturbances. He is in good behavioral control, no mood lability noted. He is somewhat ruminative regarding wished to leave hospital. He states current medications are working well regarding psychiatric symptom management. He was fully cooperative during encounter, with adequate eye contact. Ammonia level in 01/2022 was 59. Plan Recommendation is to continue with current plan of care, as it appears to be successful regarding psychiatric illness/symptom management. Recommend repeat ammonia level. No recommendations for medication changes at this time. This has been shared with Dr. Anthony Rosen. I spent minutes with the patient and/or on the patient floor today, greater than?50% of which was spent counseling/coordinating care. Patient educated on: diagnosis, medication risk/benefits and therapeutic strategies Informed Consent: does not understand and further education needed
--- NOTE | 2022-05-23 11:39 | HO.PM.IMPN ---
Subjective Subjective Date of Service: 05/23/22 Interval History: Awaiting placement, calm but gets upset when talks Review of Systems no sob or any distress Physical Exam Vital Signs: Vital Signs: Last Vital Signs Temp 97.5 F 05/23/22 07:29 Pulse 63 05/23/22 07:29 Resp 16 05/23/22 07:29 BP 117/72 05/23/22 07:29 Pulse Ox 96 05/23/22 07:29 O2 Del Method 05/23/22 07:29 O2 Flow Rate 2 02/16/22 07:18 FiO2 94 02/13/22 15:38 BMI result Body Mass Index 21.8 refused exam Objective Data Active Medications Acetaminophen (Acetaminophen 325 Mg Tablet) 650 mg PO Q6H PRN PRN Reason: Pain, Mild (Pain Scale 1-3) Atorvastatin Calcium (Atorvastatin Calcium 40 Mg Tablet) 40 mg PO DAILY [facility] Last Admin: 05/23/22 11:12 Dose: Not Given Documented By: ALEC Non-Admin Reason: Patient Refused Dextrose (Dextrose 50 % 25 Gm/50 Ml Syringe) 25 gm IVPUSH Q15M PRN; Protocol PRN Reason: per Hypoglycemia Standing Ord. Divalproex Sodium (Divalproex Sodium Er 250 Mg Tab.Er.24h) 250 mg PO DAILY@1700 [facility] Last Admin: 05/22/22 16:37 Dose: 250 mg Documented By: BRENNON Divalproex Sodium (Divalproex Sodium Er 500 Mg Tab.Er.24h) 500 mg PO DAILY [facility] Last Admin: 05/23/22 11:12 Dose: Not Given Documented By: ALEC Non-Admin Reason: Patient Refused Ferrous Sulfate (Ferrous Sulfate 324 Mg Tablet.) 324 mg PO BID [facility] Last Admin: 05/23/22 11:12 Dose: Not Given Documented By: ALEC Non-Admin Reason: Patient Refused Fluticasone Propionate (Fluticasone Propionate Nasal 16 Gm [place]) 1 spray NOSTRIL-B BID [facility] Last Admin: 05/23/22 11:12 Dose: Not Given Documented By: ALEC Non-Admin Reason: Patient Refused Furosemide (Furosemide 40 Mg Tablet) 40 mg PO BID@0900,1800 [facility]; Protocol Last Admin: 05/14/22 11:45 Dose: 40 mg Documented By: HO.LARHO Glucose (Glucose Gel 15 Gm Gel..Gram.) 15 gm PO Q15M PRN; Protocol PRN Reason: per Hypoglycemia Standing Ord. Haloperidol (Haloperidol 5 Mg Tablet) 10 mg PO BID [facility] Last Admin: 05/23/22 11:12 Dose: Not Given Documented By: ALEC Non-Admin Reason: Patient Refused Insulin Glargine (Insulin Glargine,Hum.Rec.Anlog 100 Unit/Ml 10 Ml Vial) 10 unit SUBCUT BEDTIME [facility] Last Admin: 05/22/22 20:32 Dose: 10 unit Documented By: DENISE Insulin Human Lispro (Insulin Lispro 100 Unit/Ml 3 Ml Vial) 0 unit SUBCUT QIDACHS [facility]; Protocol Last Admin: 05/23/22 08:03 Dose: Not Given Documented By: ALEC Non-Admin Reason: No Insulin Coverage Melatonin (Melatonin 3 Mg Tablet) 6 mg PO BEDTIME PRN PRN Reason: Insomnia Last Admin: 05/06/22 20:12 Dose: 6 mg Documented By: SHARONILScooby Neomycin/Polymyxin/Hydrocortisone (Neomycin/Polymyxin/Hc Otic Melanie 10 Ml Drpbtl) 3 drop EAR-RIGHT QID [facility] Last Admin: 05/23/22 11:12 Dose: Not Given Documented By: ALEC Non-Admin Reason: Patient Refused Olanzapine (Olanzapine Odt 10 Mg Tab.Rapdis) 5 mg TRANSLINGU BID PRN PRN Reason: agitation, psychosis Last Admin: 03/15/22 19:48 Dose: 5 mg Documented By: GENIE Omeprazole (Omeprazole 20 Mg Capsule.Dr) 20 mg PO DAILY@0630 [facility] Last Admin: 05/23/22 06:00 Dose: Not Given Documented By: DENISE Non-Admin Reason: Patient Refused Senna (Sennosides 8.6 Mg Tablet) 17.2 mg PO BEDTIME PRN PRN Reason: Constipation Sildenafil Citrate (Sildenafil Citrate 20 Mg Tablet) 20 mg PO TID [facility] Last Admin: 05/23/22 11:13 Dose: Not Given Documented By: ALEC Non-Admin Reason: Patient Refused Sitagliptin Phosphate (Sitagliptin Phosphate 100 Mg Tablet) 100 mg PO DAILY [facility] Last Admin: 05/10/22 09:04 Dose: Not Given Documented By: MANSOOR Non-Admin Reason: Patient Refused Labs CBC & Chem 7: 04/23/22 07:52 05/11/22 08:12 Labs: Laboratory Results - last 24 hr 05/22/22 05/22/22 05/23/22 15:31 19:36 07:31 POC Glucose 214 H 232 H 127 H Assessment and Plan (1) Schizo affective schizophrenia: Status: Acute Plan 61-year-old male with a past medical history of schizophrenia, CHF, asthma/COPD, diabetes, hyperlipidemia presented from the shelter with a chief complaint of acute hypoxia. Noted to have following conditions essentially no new issues, continue current care No further episodes of elopement, continue close observation, Camera in room Acute hypoxic respiratory failure on presentation suspected d/t COPD/asthma/CHF. Resolved Acute asthma/COPD, chronic intermittent No acute symptoms, continue bronchodilator, Patient has no formal diagnosis.? Patient is supposed to be following up with pulmonology as outpatient.? He? had similar presentation in December 2021. Pulmonary HTN Asymptomatic,? continue Viagra, outpatient follow up Heart failure with preserved ejection fraction EF 55 to 60,no acute exacerbation, continue oral Lasix 40 bid Diabetes/hyperglycemia blood sugars? in acceptable range continue lantus,? SSI, metformin and Sitagliptin schizoaffective disorder Continue home Depakote, haloperidol DVT prophylaxis:? Lovenox Code status: Full code.? Confirmed with the patient's guardian [facility] proxy invoked. Lacks capacity for medical decision, awaiting permanent placement. out of bed,ambulate with supervision. Need for inpatient : awaiting ,placement inpatient need:have a court day today for temporary guardianship. Quality Stroke Does the patient have a stroke diagnosis?: No VTE Prior VTE?: No VTE Risk Level:: Medical - moderate - high VTE Device Contraindication: Treatment Not Indicated VTE Drug Contraindication: N/A - Med Ordered
--- NOTE | 2022-05-23 12:35 | MHC.CM.PN ---
LAE ENTRY FOR 05/22/22, CM RECEIVED MULTIPLE CALLS FROM YSABEL AT [facility] W/QUESTIONS, CM ANSWERED ALL QUESTIONS AND WILL FAX NEW PSYCH CONSULT ONCE COMPLETED, ANTIC CM WILL RECEIVE DECISION REGARDING BED OFFER BY EARLY NEXT WEEK.
--- NOTE | 2022-05-23 12:37 | MHC.CM.PN ---
EMR REVIEWED, PT REMAINS MEDICALLY CLEARED FOR D/C, CM HAS FAXED TODAYS PSYCH CONSULT TO YSABEL AT [facility] TO [phone]. CM WILL CONT TO FOLLOW D/C NEEDS.
[2022-05-23 15:46] VITALS: BP 105/67; PULSE 60; RESP 17; TEMP 36.5; O2SAT 95
[2022-05-23 15:58] LABS: Glucose, Whole Blood 173 mg/dL (60-115)
[2022-05-23] MEDS: HaloperidoL 5 MG TABLET 10 MG PO ×2 (16:50→20:04)
[2022-05-23] MEDS: Ferrous Sulfate 324 MG TABLET.DR PO ×2 (16:50→20:04)
[2022-05-23] MEDS: Divalproex Sodium ER 500 MG TAB.ER.24H PO (16:50)
[2022-05-23] MEDS: Atorvastatin Calcium 40 MG TABLET PO (16:50)
[2022-05-23] MEDS: Insulin Lispro 100 UNIT/ML 3 ML VIAL SUBCUT (16:51)
[2022-05-23] MEDS: Sildenafil Citrate 20 MG TABLET PO ×2 (16:51→20:04)
[2022-05-23] MEDS: Insulin Glargine,Hum.rec.anlog 100 UNIT/ML 10 ML VIAL 10 UNIT SUBCUT (20:04)
[2022-05-23 20:11] LABS: Glucose, Whole Blood 125 mg/dL (60-115)
[2022-05-23 23:35] VITALS: BP 120/70; PULSE 75; RESP 18; TEMP 36.6; O2SAT 95
[2022-05-24 10:37] LABS: Ammonia 38 umol/L (13-55)
[2022-05-24 10:43] LABS: Anion Gap 13 (12-20); Blood Urea Nitrogen 12 mg/dL (9-16); Carbon Dioxide 28 mmol/L (22-29); Chloride 104 mmol/L (96-108); Creatinine Clr Calc Pharmacy 100.2; Estimated Glomerular Filt Rate > 60; Glucose Random 131 mg/dL (60-115); Potassium 4.1 mmol/L (3.3-5.1); Sodium 141 mmol/L (135-145)
--- NOTE | 2022-05-24 12:15 | HO.PM.IMPN ---
Subjective Subjective Date of Service: 05/24/22 Interval History: Awaiting placement, calm but gets upset when talks Review of Systems no sob or any distress Physical Exam Vital Signs: Vital Signs: Last Vital Signs Temp 97.8 F 05/23/22 23:35 Pulse 75 05/23/22 23:35 Resp 18 05/23/22 23:35 BP 120/70 05/23/22 23:35 Pulse Ox 95 05/23/22 23:35 O2 Del Method 05/23/22 23:35 O2 Flow Rate 2 02/16/22 07:18 FiO2 94 02/13/22 15:38 BMI result Body Mass Index 21.8 Appearance: Awake but upset.? limited exam. cvs: rrr, [id number] res: grosslyclear ,no wheezing or rales. abd: no rebound or guarding ,nt, bs present. ext no edema . neuro: moves all ext Objective Data Active Medications Acetaminophen (Acetaminophen 325 Mg Tablet) 650 mg PO Q6H PRN PRN Reason: Pain, Mild (Pain Scale 1-3) Atorvastatin Calcium (Atorvastatin Calcium 40 Mg Tablet) 40 mg PO DAILY [facility] Last Admin: 05/24/22 07:23 Dose: Not Given Documented By: WES Non-Admin Reason: Patient Refused Dextrose (Dextrose 50 % 25 Gm/50 Ml Syringe) 25 gm IVPUSH Q15M PRN; Protocol PRN Reason: per Hypoglycemia Standing Ord. Divalproex Sodium (Divalproex Sodium Er 250 Mg Tab.Er.24h) 250 mg PO DAILY@1700 [facility] Last Admin: 05/23/22 18:21 Dose: Not Given Documented By: ALEC Non-Admin Reason: Patient Refused Divalproex Sodium (Divalproex Sodium Er 500 Mg Tab.Er.24h) 500 mg PO DAILY [facility] Last Admin: 05/24/22 07:26 Dose: Not Given Documented By: WES Non-Admin Reason: Patient Refused Ferrous Sulfate (Ferrous Sulfate 324 Mg Tablet.) 324 mg PO BID [facility] Last Admin: 05/24/22 07:26 Dose: Not Given Documented By: WES Non-Admin Reason: Patient Refused Fluticasone Propionate (Fluticasone Propionate Nasal 16 Gm [place]) 1 spray NOSTRIL-B BID [facility] Last Admin: 05/24/22 07:27 Dose: Not Given Documented By: WES Non-Admin Reason: Patient Refused Furosemide (Furosemide 40 Mg Tablet) 40 mg PO DAILY [facility]; Protocol Glucose (Glucose Gel 15 Gm Gel..Gram.) 15 gm PO Q15M PRN; Protocol PRN Reason: per Hypoglycemia Standing Ord. Haloperidol (Haloperidol 5 Mg Tablet) 10 mg PO BID [facility] Last Admin: 05/24/22 07:27 Dose: Not Given Documented By: WES Non-Admin Reason: Patient Refused Insulin Glargine (Insulin Glargine,Hum.Rec.Anlog 100 Unit/Ml 10 Ml Vial) 10 unit SUBCUT BEDTIME [facility] Last Admin: 05/23/22 20:04 Dose: 10 unit Documented By: ESTELLE Insulin Human Lispro (Insulin Lispro 100 Unit/Ml 3 Ml Vial) 0 unit SUBCUT QIDACHS [facility]; Protocol Last Admin: 05/24/22 12:05 Dose: Not Given Documented By: WES Non-Admin Reason: Patient Refused Melatonin (Melatonin 3 Mg Tablet) 6 mg PO BEDTIME PRN PRN Reason: Insomnia Last Admin: 05/06/22 20:12 Dose: 6 mg Documented By: SHARONILScooby Neomycin/Polymyxin/Hydrocortisone (Neomycin/Polymyxin/Hc Otic Melanie 10 Ml Drpbtl) 3 drop EAR-RIGHT QID [facility] Last Admin: 05/24/22 12:06 Dose: Not Given Documented By: WES Non-Admin Reason: Patient Refused Olanzapine (Olanzapine Odt 10 Mg Tab.Rapdis) 5 mg TRANSLINGU BID PRN PRN Reason: agitation, psychosis Last Admin: 03/15/22 19:48 Dose: 5 mg Documented By: GENIE Omeprazole (Omeprazole 20 Mg Capsule.Dr) 20 mg PO DAILY@0630 [facility] Last Admin: 05/24/22 05:41 Dose: Not Given Documented By: ESTELLE Non-Admin Reason: Patient Refused Senna (Sennosides 8.6 Mg Tablet) 17.2 mg PO BEDTIME PRN PRN Reason: Constipation Sildenafil Citrate (Sildenafil Citrate 20 Mg Tablet) 20 mg PO TID [facility] Last Admin: 05/24/22 07:28 Dose: Not Given Documented By: WES Non-Admin Reason: Patient Refused Sitagliptin Phosphate (Sitagliptin Phosphate 100 Mg Tablet) 100 mg PO DAILY [facility] Last Admin: 05/10/22 09:04 Dose: Not Given Documented By: MANSOOR Non-Admin Reason: Patient Refused Labs CBC & Chem 7: 04/23/22 07:52 05/24/22 09:56 Labs: Laboratory Results - last 24 hr 05/23/22 05/23/22 05/24/22 15:49 19:59 09:56 Anion Gap 13 Estim Creat Clear Calc 100.2 Estimated GFR > 60 POC Glucose 173 H 125 H Random Glucose 131 H Calcium 9.0 Ammonia 05/24/22 09:56 Anion Gap Estim Creat Clear Calc Estimated GFR POC Glucose Random Glucose Calcium Ammonia 38 Assessment and Plan (1) Schizo affective schizophrenia: Status: Acute Plan 61-year-old male with a past medical history of schizophrenia, CHF, asthma/COPD, diabetes, hyperlipidemia presented from the correction with a chief complaint of acute hypoxia. Noted to have following conditions essentially no new issues, continue current care No further episodes of elopement, continue close observation, Camera in room Acute hypoxic respiratory failure on presentation suspected d/t COPD/asthma/CHF. Resolved Acute asthma/COPD, chronic intermittent No acute symptoms, continue bronchodilator, Patient has no formal diagnosis.? Patient is supposed to be following up with pulmonology as outpatient.? He? had similar presentation in December 2021. Pulmonary HTN Asymptomatic,? continue Viagra, outpatient follow up Heart failure with preserved ejection fraction EF 55 to 60,no acute exacerbation,seems euvolemic - continue adjusted oral Lasix 40 daily Diabetes/hyperglycemia blood sugars? in acceptable range continue lantus,? SSI, metformin and Sitagliptin schizoaffective disorder Continue home Depakote, haloperidol psych reeval noted -ammnonia seems fine , renal function/electrolytes seems fine. DVT prophylaxis:? Lovenox Code status: Full code.? Confirmed with the patient's guardian [facility] proxy invoked. Lacks capacity for medical decision, awaiting permanent placement. out of bed,ambulate with supervision. Need for inpatient : awaiting ,placement inpatient need:awiting placement. Quality Stroke Does the patient have a stroke diagnosis?: No VTE Prior VTE?: No VTE Risk Level:: Medical - moderate - high VTE Device Contraindication: Treatment Not Indicated VTE Drug Contraindication: N/A - Med Ordered
[2022-05-24 14:12] LABS: Glucose, Whole Blood 218 mg/dL (60-115)
[2022-05-24 15:31] VITALS: BP 98/57; PULSE 97; RESP 17; TEMP 36.5; O2SAT 95
[2022-05-24 15:49] LABS: Glucose, Whole Blood 155 mg/dL (60-115)
[2022-05-24 19:57] LABS: Glucose, Whole Blood 160 mg/dL (60-115)
[2022-05-24] MEDS: Insulin Lispro 100 UNIT/ML 3 ML VIAL SUBCUT (20:50)
[2022-05-24] MEDS: Sildenafil Citrate 20 MG TABLET PO (20:50)
[2022-05-24] MEDS: HaloperidoL 5 MG TABLET 10 MG PO (20:50)
[2022-05-24] MEDS: Ferrous Sulfate 324 MG TABLET.DR PO (20:50)
[2022-05-24] MEDS: Insulin Glargine,Hum.rec.anlog 100 UNIT/ML 10 ML VIAL 10 UNIT SUBCUT (20:50)
[2022-05-25 07:04] VITALS: BP 109/76; PULSE 73; RESP 18; TEMP 36.6; O2SAT 95
[2022-05-25 07:24] LABS: Glucose, Whole Blood 143 mg/dL (60-115)
--- NOTE | 2022-05-25 07:52 | P.PNIM_ITS ---
Subjective Subjective Date of Service: 05/25/22 Interval History: Awaiting placement, calm . Review of Systems no sob or any distress Physical Exam Vital Signs: Vital Signs: Last Vital Signs Temp 97.9 F 05/25/22 07:04 Pulse 73 05/25/22 07:04 Resp 18 05/25/22 07:04 BP 109/76 05/25/22 07:04 Pulse Ox 95 05/25/22 07:04 O2 Del Method 05/25/22 07:04 O2 Flow Rate 2 02/16/22 07:18 FiO2 94 02/13/22 15:38 BMI result Body Mass Index 21.8 refused exam Objective Data Active Medications Acetaminophen (Acetaminophen 325 Mg Tablet) 650 mg PO Q6H PRN PRN Reason: Pain, Mild (Pain Scale 1-3) Atorvastatin Calcium (Atorvastatin Calcium 40 Mg Tablet) 40 mg PO DAILY [facility] Last Admin: 05/24/22 07:23 Dose: Not Given Documented By: WES Non-Admin Reason: Patient Refused Dextrose (Dextrose 50 % 25 Gm/50 Ml Syringe) 25 gm IVPUSH Q15M PRN; Protocol PRN Reason: per Hypoglycemia Standing Ord. Divalproex Sodium (Divalproex Sodium Er 250 Mg Tab.Er.24h) 250 mg PO DAILY@1700 [facility] Last Admin: 05/24/22 16:17 Dose: Not Given Documented By: DALILA Non-Admin Reason: Patient Refused Divalproex Sodium (Divalproex Sodium Er 500 Mg Tab.Er.24h) 500 mg PO DAILY [facility] Last Admin: 05/24/22 07:26 Dose: Not Given Documented By: WES Non-Admin Reason: Patient Refused Ferrous Sulfate (Ferrous Sulfate 324 Mg Tablet.) 324 mg PO BID [facility] Last Admin: 05/24/22 20:50 Dose: 324 mg Documented By: ESTELLE Fluticasone Propionate (Fluticasone Propionate Nasal 16 Gm [place]) 1 spray NOSTRIL-B BID [facility] Last Admin: 05/24/22 20:54 Dose: Not Given Documented By: ESTELLE Non-Admin Reason: Patient Refused Furosemide (Furosemide 40 Mg Tablet) 40 mg PO DAILY [facility] [place]; Protocol Glucose (Glucose Gel 15 Gm Gel..Gram.) 15 gm PO Q15M PRN; Protocol PRN Reason: per Hypoglycemia Standing Ord. Haloperidol (Haloperidol 5 Mg Tablet) 10 mg PO BID [facility] [place] Last Admin: 05/24/22 20:50 Dose: 10 mg Documented By: ESTELLE Insulin Glargine (Insulin Glargine,Hum.Rec.Anlog 100 Unit/Ml 10 Ml Vial) 10 unit SUBCUT BEDTIME [facility] Last Admin: 05/24/22 20:50 Dose: 10 unit Documented By: ESTELLE Insulin Human Lispro (Insulin Lispro 100 Unit/Ml 3 Ml Vial) 0 unit SUBCUT QIDACHS [facility]; Protocol Last Admin: 05/24/22 20:50 Dose: 2 unit Documented By: ESTELLE Melatonin (Melatonin 3 Mg Tablet) 6 mg PO BEDTIME PRN PRN Reason: Insomnia Last Admin: 05/06/22 20:12 Dose: 6 mg Documented By: CASTILScooby Neomycin/Polymyxin/Hydrocortisone (Neomycin/Polymyxin/Hc Otic Melanie 10 Ml Drpbtl) 3 drop EAR-RIGHT QID [facility] Last Admin: 05/24/22 20:54 Dose: Not Given Documented By: ESTELLE Non-Admin Reason: Patient Refused Olanzapine (Olanzapine Odt 10 Mg Tab.Rapdis) 5 mg TRANSLINGU BID PRN PRN Reason: agitation, psychosis Last Admin: 03/15/22 19:48 Dose: 5 mg Documented By: GENIE Omeprazole (Omeprazole 20 Mg Capsule.Dr) 20 mg PO DAILY@0630 [facility] Last Admin: 05/25/22 05:36 Dose: Not Given Documented By: ESTELLE Non-Admin Reason: Patient Refused Senna (Sennosides 8.6 Mg Tablet) 17.2 mg PO BEDTIME PRN PRN Reason: Constipation Sildenafil Citrate (Sildenafil Citrate 20 Mg Tablet) 20 mg PO TID [facility] Last Admin: 05/24/22 20:50 Dose: 20 mg Documented By: ESTELLE Sitagliptin Phosphate (Sitagliptin Phosphate 100 Mg Tablet) 100 mg PO DAILY [facility] Last Admin: 05/10/22 09:04 Dose: Not Given Documented By: MANSOOR Non-Admin Reason: Patient Refused Labs CBC & Chem 7: 04/23/22 07:52 05/24/22 09:56 Labs: Laboratory Results - last 24 hr 05/24/22 05/24/22 05/24/22 09:56 09:56 12:08 Anion Gap 13 Estim Creat Clear Calc 100.2 Estimated GFR > 60 POC Glucose 218 H Random Glucose 131 H Calcium 9.0 Ammonia 38 05/24/22 05/24/22 05/25/22 15:34 19:39 07:04 Anion Gap Estim Creat Clear Calc Estimated GFR POC Glucose 155 H 160 H 143 H Random Glucose Calcium Ammonia Assessment and Plan (1) Schizo affective schizophrenia: Status: Acute Plan 61-year-old male with a past medical history of schizophrenia, CHF, asthma/COPD, diabetes, hyperlipidemia presented from the alf with a chief complaint of acute hypoxia. Noted to have following conditions essentially no new issues, continue current care No further episodes of elopement, continue close observation, Camera in room Acute hypoxic respiratory failure on presentation suspected d/t COPD/asthma/CHF. Resolved Acute asthma/COPD, chronic intermittent No acute symptoms, continue bronchodilator, Patient has no formal diagnosis.? Patient is supposed to be following up with pulmonology as outpatient.? He? had similar presentation in December 2021. Pulmonary HTN Asymptomatic,? continue Viagra, outpatient follow up Heart failure with preserved ejection fraction EF 55 to 60,no acute exacerbation,seems euvolemic - continue adjusted oral Lasix 40 daily Diabetes/hyperglycemia blood sugars? in acceptable range continue lantus,? SSI, metformin and Sitagliptin schizoaffective disorder Continue home Depakote, haloperidol psych reeval noted -ammnonia seems fine , renal function/electrolytes seems fine. DVT prophylaxis:? Lovenox Code status: Full code.? Confirmed with the patient's guardian [facility] proxy invoked. Lacks capacity for medical decision, awaiting permanent placement. out of bed,ambulate with supervision. Need for inpatient : awaiting ,placement inpatient need:awiting placement. Quality Stroke Does the patient have a stroke diagnosis?: No VTE Prior VTE?: No VTE Risk Level:: Medical - moderate - high VTE Device Contraindication: Treatment Not Indicated VTE Drug Contraindication: N/A - Med Ordered
--- NOTE | 2022-05-25 09:54 | MHC.CLN ---
F/U DIET=DIABETIC 2000 KCALS, CARDIAC, 1800 ML FLUID RESTRICTION. INTAKE AT MEALS USUALLY GOOD, WITH MOST 50-100%. NO CHRONIC RIGHT FOOT WOUND NOTED. NO ADDITIONAL NUTRITION INTERVENTIONS AT THIS TIME. RD TO FOLLOW WEEKLY.
--- NOTE | 2022-05-25 10:11 | PC.NURSE ---
Pt refused all of his morning medications, even after several different people asked him. He stated he has had enough.
--- NOTE | 2022-05-25 11:57 | PC.NURSE ---
Pt refused to have his POC taken at 11:30 am. refusing all care and medication
[2022-05-25 16:17] VITALS: BP 107/66; PULSE 63; RESP 18; TEMP 36.3; O2SAT 97
[2022-05-25 16:24] LABS: Glucose, Whole Blood 219 mg/dL (60-115)
[2022-05-25] MEDS: Insulin Lispro 100 UNIT/ML 3 ML VIAL SUBCUT (16:43)
[2022-05-25] MEDS: Divalproex Sodium ER 250 MG TAB.ER.24H PO (16:44)
[2022-05-25 20:17] LABS: Glucose, Whole Blood 86 mg/dL (60-115)
[2022-05-25] MEDS: Insulin Glargine,Hum.rec.anlog 100 UNIT/ML 10 ML VIAL 10 UNIT SUBCUT (20:28)
[2022-05-25] MEDS: HaloperidoL 5 MG TABLET 10 MG PO (20:28)
[2022-05-25] MEDS: Ferrous Sulfate 324 MG TABLET.DR PO (20:28)
[2022-05-25] MEDS: Sildenafil Citrate 20 MG TABLET PO (20:28)
[2022-05-26] MEDS: Sildenafil Citrate 20 MG TABLET PO ×3 (10:01→19:16)
[2022-05-26] MEDS: Ferrous Sulfate 324 MG TABLET.DR PO ×2 (10:01→19:17)
[2022-05-26] MEDS: HaloperidoL 5 MG TABLET 10 MG PO ×2 (10:01→19:16)
[2022-05-26] MEDS: Divalproex Sodium ER 500 MG TAB.ER.24H PO (10:01)
[2022-05-26] MEDS: Atorvastatin Calcium 40 MG TABLET PO (10:02)
[2022-05-26] MEDS: Furosemide 40 MG TABLET PO (10:02)
--- NOTE | 2022-05-26 13:43 | HO.PM.IMPN ---
Subjective Subjective Date of Service: 05/26/22 Interval History: Awaiting placement, calm . Review of Systems no sob or any distress Physical Exam Vital Signs: Vital Signs: Last Vital Signs Temp 97.4 F 05/25/22 16:17 Pulse 63 05/25/22 16:17 Resp 18 05/25/22 16:17 BP 107/66 05/25/22 16:17 Pulse Ox 97 05/25/22 16:17 O2 Del Method 05/25/22 16:17 O2 Flow Rate 2 02/16/22 07:18 FiO2 94 02/13/22 15:38 BMI result Body Mass Index 21.8 refused exam Objective Data Active Medications Acetaminophen (Acetaminophen 325 Mg Tablet) 650 mg PO Q6H PRN PRN Reason: Pain, Mild (Pain Scale 1-3) Atorvastatin Calcium (Atorvastatin Calcium 40 Mg Tablet) 40 mg PO DAILY [facility] Last Admin: 05/26/22 10:02 Dose: 40 mg Documented By: IRISEMA Dextrose (Dextrose 50 % 25 Gm/50 Ml Syringe) 25 gm IVPUSH Q15M PRN; Protocol PRN Reason: per Hypoglycemia Standing Ord. Divalproex Sodium (Divalproex Sodium Er 250 Mg Tab.Er.24h) 250 mg PO DAILY@1700 [facility] Last Admin: 05/25/22 16:44 Dose: 250 mg Documented By: MANSOOR Divalproex Sodium (Divalproex Sodium Er 500 Mg Tab.Er.24h) 500 mg PO DAILY [facility] Last Admin: 05/26/22 10:01 Dose: 500 mg Documented By: DALILA Ferrous Sulfate (Ferrous Sulfate 324 Mg [place].) 324 mg PO BID [facility] Last Admin: 05/26/22 10:01 Dose: 324 mg Documented By: DALILA Fluticasone Propionate (Fluticasone Propionate Nasal 16 Gm [place]) 1 spray NOSTRIL-B BID [facility] Last Admin: 05/26/22 07:58 Dose: Not Given Documented By: DALILA Non-Admin Reason: Patient Refused Furosemide (Furosemide 40 Mg Tablet) 40 mg PO DAILY [facility]; Protocol Last Admin: 05/26/22 10:02 Dose: 40 mg Documented By: DALILA Glucose (Glucose Gel 15 Gm Gel..Gram.) 15 gm PO Q15M PRN; Protocol PRN Reason: per Hypoglycemia Standing Ord. Haloperidol (Haloperidol 5 Mg Tablet) 10 mg PO BID [facility] Last Admin: 05/26/22 10:01 Dose: 10 mg Documented By: DALILA Insulin Glargine (Insulin Glargine,Hum.Rec.Anlog 100 Unit/Ml 10 Ml Vial) 10 unit SUBCUT BEDTIME [facility] Last Admin: 05/25/22 20:28 Dose: 10 unit Documented By: DENISE Insulin Human Lispro (Insulin Lispro 100 Unit/Ml 3 Ml Vial) 0 unit SUBCUT QIDACHS [facility]; Protocol Last Admin: 05/26/22 11:47 Dose: Not Given Documented By: DALILA Non-Admin Reason: pt refused poc check Melatonin (Melatonin 3 Mg Tablet) 6 mg PO BEDTIME PRN PRN Reason: Insomnia Last Admin: 05/06/22 20:12 Dose: 6 mg Documented By: CASTILScooby Neomycin/Polymyxin/Hydrocortisone (Neomycin/Polymyxin/Hc Otic Melanie 10 Ml Drpbtl) 3 drop EAR-RIGHT QID [facility] Last Admin: 05/26/22 11:24 Dose: Not Given Documented By: DALILA Non-Admin Reason: Patient Refused Olanzapine (Olanzapine Odt 10 Mg Tab.Rapdis) 5 mg TRANSLINGU BID PRN PRN Reason: agitation, psychosis Last Admin: 03/15/22 19:48 Dose: 5 mg Documented By: GENIE Omeprazole (Omeprazole 20 Mg Capsule.Dr) 20 mg PO DAILY@0630 [facility] Last Admin: 05/26/22 05:08 Dose: Not Given Documented By: DENISE Non-Admin Reason: Patient Refused Senna (Sennosides 8.6 Mg Tablet) 17.2 mg PO BEDTIME PRN PRN Reason: Constipation Sildenafil Citrate (Sildenafil Citrate 20 Mg Tablet) 20 mg PO TID [facility] Last Admin: 05/26/22 10:01 Dose: 20 mg Documented By: DALILA Sitagliptin Phosphate (Sitagliptin Phosphate 100 Mg Tablet) 100 mg PO DAILY [facility] Last Admin: 05/10/22 09:04 Dose: Not Given Documented By: MANSOOR Non-Admin Reason: Patient Refused Labs CBC & Chem 7: 04/23/22 07:52 05/24/22 09:56 Labs: Laboratory Results - last 24 hr 05/25/22 05/25/22 16:19 20:12 POC Glucose 219 H 86 Assessment and Plan (1) Schizo affective schizophrenia: Status: Acute Plan 61-year-old male with a past medical history of schizophrenia, CHF, asthma/COPD, diabetes, hyperlipidemia presented from the residential with a chief complaint of acute hypoxia. Noted to have following conditions essentially no new issues, continue current care No further episodes of elopement, continue close observation, Camera in room Acute hypoxic respiratory failure on presentation suspected d/t COPD/asthma/CHF. Resolved Acute asthma/COPD, chronic intermittent No acute symptoms, continue bronchodilator, Patient has no formal diagnosis.? Patient is supposed to be following up with pulmonology as outpatient.? He? had similar presentation in December 2021. Pulmonary HTN Asymptomatic,? continue Viagra, outpatient follow up Heart failure with preserved ejection fraction EF 55 to 60,no acute exacerbation,seems euvolemic - continue adjusted oral Lasix 40 daily Diabetes/hyperglycemia blood sugars? in acceptable range continue lantus,? SSI, metformin and Sitagliptin schizoaffective disorder Continue home Depakote, haloperidol psych reeval noted -ammnonia seems fine , renal function/electrolytes seems fine. DVT prophylaxis:? Lovenox Code status: Full code.? Confirmed with the patient's guardian [facility] proxy invoked. Lacks capacity for medical decision, awaiting permanent placement. out of bed,ambulate with supervision. Need for inpatient : awaiting ,placement inpatient need:awiting placement. Quality Stroke Does the patient have a stroke diagnosis?: No VTE Prior VTE?: No VTE Risk Level:: Medical - moderate - high VTE Device Contraindication: Treatment Not Indicated VTE Drug Contraindication: N/A - Med Ordered
[2022-05-26 15:46] LABS: Glucose, Whole Blood 183 mg/dL (60-115)
[2022-05-26 16:00] VITALS: BP 101/65; PULSE 62; RESP 16; TEMP 36.8; O2SAT 95
[2022-05-26] MEDS: Divalproex Sodium ER 250 MG TAB.ER.24H PO (16:32)
[2022-05-26] MEDS: Insulin Glargine,Hum.rec.anlog 100 UNIT/ML 10 ML VIAL 10 UNIT SUBCUT (19:19)
[2022-05-26 20:27] LABS: Glucose, Whole Blood 288 mg/dL (60-115)
--- NOTE | 2022-05-27 11:29 | HO.PM.IMPN ---
Subjective Subjective Date of Service: 05/27/22 Interval History: Seems lying comfortably, slightly more cooperative. But still says to be left alone Review of Systems Denies any shortness of breath or any pain Physical Exam Vital Signs: Vital Signs: Last Vital Signs Temp 98.2 F 05/26/22 16:00 Pulse 62 05/26/22 16:00 Resp 16 05/26/22 16:00 BP 101/65 05/26/22 16:00 Pulse Ox 95 05/26/22 16:00 O2 Del Method 05/26/22 16:00 O2 Flow Rate 2 02/16/22 07:18 FiO2 94 02/13/22 15:38 BMI result Body Mass Index 21.8 Refused Objective Data Active Medications Acetaminophen (Acetaminophen 325 Mg Tablet) 650 mg PO Q6H PRN PRN Reason: Pain, Mild (Pain Scale 1-3) Atorvastatin Calcium (Atorvastatin Calcium 40 Mg Tablet) 40 mg PO DAILY [facility] Last Admin: 05/27/22 10:52 Dose: Not Given Documented By: COTEMA Non-Admin Reason: Patient Refused Dextrose (Dextrose 50 % 25 Gm/50 Ml Syringe) 25 gm IVPUSH Q15M PRN; Protocol PRN Reason: per Hypoglycemia Standing Ord. Divalproex Sodium (Divalproex Sodium Er 250 Mg Tab.Er.24h) 250 mg PO DAILY@1700 [facility] Last Admin: 05/26/22 16:32 Dose: 250 mg Documented By: COTRAFA Divalproex Sodium (Divalproex Sodium Er 500 Mg Tab.Er.24h) 500 mg PO DAILY [facility] Last Admin: 05/27/22 10:52 Dose: Not Given Documented By: COTEMA Non-Admin Reason: Patient Refused Ferrous Sulfate (Ferrous Sulfate 324 Mg Tablet.Dr) 324 mg PO BID [facility] Last Admin: 05/27/22 10:52 Dose: Not Given Documented By: COTEMA Non-Admin Reason: Patient Refused Fluticasone Propionate (Fluticasone Propionate Nasal 16 Gm [place]) 1 spray NOSTRIL-B BID [facility] Last Admin: 05/27/22 07:51 Dose: Not Given Documented By: COTEMA Non-Admin Reason: Patient Refused Furosemide (Furosemide 40 Mg Tablet) 40 mg PO DAILY [facility]; Protocol Last Admin: 05/27/22 10:52 Dose: Not Given Documented By: COTEMA Non-Admin Reason: Patient Refused Glucose (Glucose Gel 15 Gm Gel..Gram.) 15 gm PO Q15M PRN; Protocol PRN Reason: per Hypoglycemia Standing Ord. Haloperidol (Haloperidol 5 Mg Tablet) 10 mg PO BID [facility] Last Admin: 05/27/22 10:52 Dose: Not Given Documented By: DALILA Non-Admin Reason: Patient Refused Insulin Glargine (Insulin Glargine,Hum.Rec.Anlog 100 Unit/Ml 10 Ml Vial) 10 unit SUBCUT BEDTIME [facility] Last Admin: 05/26/22 19:19 Dose: 10 unit Documented By: DENISE Insulin Human Lispro (Insulin Lispro 100 Unit/Ml 3 Ml Vial) 0 unit SUBCUT QIDACHS [facility]; Protocol Last Admin: 05/27/22 11:23 Dose: Not Given Documented By: DALILA Non-Admin Reason: pt refused poc check Melatonin (Melatonin 3 Mg Tablet) 6 mg PO BEDTIME PRN PRN Reason: Insomnia Last Admin: 05/06/22 20:12 Dose: 6 mg Documented By: CASTILM Neomycin/Polymyxin/Hydrocortisone (Neomycin/Polymyxin/Hc Otic Melanie 10 Ml Drpbtl) 3 drop EAR-RIGHT QID [facility] Last Admin: 05/27/22 07:51 Dose: Not Given Documented By: DALILA Non-Admin Reason: Patient Refused Olanzapine (Olanzapine Odt 10 Mg Tab.Rapdis) 5 mg TRANSLINGU BID PRN PRN Reason: agitation, psychosis Last Admin: 03/15/22 19:48 Dose: 5 mg Documented By: GENIE Omeprazole (Omeprazole 20 Mg Capsule.Dr) 20 mg PO DAILY@0630 [facility] Last Admin: 05/27/22 05:47 Dose: Not Given Documented By: DENISE Non-Admin Reason: Patient Refused Senna (Sennosides 8.6 Mg Tablet) 17.2 mg PO BEDTIME PRN PRN Reason: Constipation Sildenafil Citrate (Sildenafil Citrate 20 Mg Tablet) 20 mg PO TID [facility] Last Admin: 05/27/22 10:53 Dose: Not Given Documented By: DALILA Non-Admin Reason: Patient Refused Sitagliptin Phosphate (Sitagliptin Phosphate 100 Mg Tablet) 100 mg PO DAILY [facility] Last Admin: 05/10/22 09:04 Dose: Not Given Documented By: MANSOOR Non-Admin Reason: Patient Refused Labs CBC & Chem 7: 04/23/22 07:52 05/24/22 09:56 Labs: Laboratory Results - last 24 hr 05/26/22 05/26/22 15:28 19:07 POC Glucose 183 H 288 H Assessment and Plan (1) Schizo affective schizophrenia: Status: Acute (2) Pulmonary hypertension: Status: Acute Plan 61-year-old male with a past medical history of schizophrenia, CHF, asthma/COPD, diabetes, hyperlipidemia [facility] chief [facility] of [facility]. Noted to have following conditions essentially no new issues, continue current care No further episodes of elopement, continue close observation, Camera in room Acute hypoxic respiratory failure on presentation suspected d/t COPD/asthma/CHF. Resolved Acute asthma/COPD, chronic intermittent No acute symptoms, continue bronchodilator, Patient has no formal diagnosis.? Patient is supposed to be following up with pulmonology as outpatient.? He? had similar presentation in December 2021. Pulmonary HTN Asymptomatic,? continue Viagra, outpatient follow up Heart failure with preserved ejection fraction EF 55 to 60,no acute exacerbation,seems euvolemic - continue adjusted oral Lasix 40 daily Diabetes/hyperglycemia blood sugars? in acceptable range continue lantus,? SSI, metformin and Sitagliptin schizoaffective disorder Continue home Depakote, haloperidol psych reeval noted -ammnonia seems fine , renal function/electrolytes seems fine. DVT prophylaxis:? Lovenox Code status: Full code.? Confirmed with the patient's guardian [facility] proxy invoked. Lacks capacity for medical decision, awaiting permanent placement. out of bed,ambulate with supervision. Need for inpatient : awaiting ,placement inpatient need:awiting placement. Quality Stroke Does the patient have a stroke diagnosis?: No VTE Prior VTE?: No VTE Risk Level:: Medical - moderate - high VTE Device Contraindication: Treatment Not Indicated VTE Drug Contraindication: N/A - Med Ordered
[2022-05-27 15:30] VITALS: BP 112/65; PULSE 78; RESP 18; TEMP 36.8; O2SAT 98
[2022-05-27 16:17] LABS: Glucose, Whole Blood 199 mg/dL (60-115)
[2022-05-27 21:45] LABS: Glucose, Whole Blood 205 mg/dL (60-115)
[2022-05-27] MEDS: Sildenafil Citrate 20 MG TABLET PO (21:47)
[2022-05-27] MEDS: Insulin Glargine,Hum.rec.anlog 100 UNIT/ML 10 ML VIAL 10 UNIT SUBCUT (21:48)
[2022-05-27] MEDS: Ferrous Sulfate 324 MG TABLET.DR PO (21:48)
[2022-05-27] MEDS: HaloperidoL 5 MG TABLET 10 MG PO (21:48)
[2022-05-27] MEDS: Insulin Lispro 100 UNIT/ML 3 ML VIAL SUBCUT (21:49)
[2022-05-28 08:33] VITALS: BP 123/62; RESP 16; TEMP 37.1; O2SAT 99
[2022-05-28 08:34] LABS: Glucose, Whole Blood 137 mg/dL (60-115)
[2022-05-28] MEDS: HaloperidoL 5 MG TABLET 10 MG PO ×2 (09:44→20:28)
[2022-05-28] MEDS: Atorvastatin Calcium 40 MG TABLET PO (09:44)
[2022-05-28] MEDS: Sildenafil Citrate 20 MG TABLET PO ×3 (09:44→20:28)
[2022-05-28] MEDS: Furosemide 40 MG TABLET PO (09:44)
[2022-05-28] MEDS: Ferrous Sulfate 324 MG TABLET.DR PO ×2 (09:44→20:29)
[2022-05-28] MEDS: Divalproex Sodium ER 500 MG TAB.ER.24H PO (09:45)
--- NOTE | 2022-05-28 11:27 | HO.PM.IMPN ---
Subjective Subjective Date of Service: 05/28/22 Interval History: Seems lying comfortably, slightly more cooperative. But still says to be left alone Review of Systems Denies any shortness of breath or any pain Physical Exam Vital Signs: Vital Signs: Last Vital Signs Temp 98.7 F 05/28/22 08:33 Pulse 78 05/27/22 15:30 Resp 16 05/28/22 08:33 BP 123/62 05/28/22 08:33 Pulse Ox 99 05/28/22 08:33 O2 Del Method 05/28/22 08:33 O2 Flow Rate 2 02/16/22 07:18 FiO2 94 02/13/22 15:38 BMI result Body Mass Index 21.8 refused Objective Data Active Medications Acetaminophen (Acetaminophen 325 Mg Tablet) 650 mg PO Q6H PRN PRN Reason: Pain, Mild (Pain Scale 1-3) Atorvastatin Calcium (Atorvastatin Calcium 40 Mg Tablet) 40 mg PO DAILY [facility] Last Admin: 05/28/22 09:44 Dose: 40 mg Documented By: MAGDALENO Dextrose (Dextrose 50 % 25 Gm/50 Ml Syringe) 25 gm IVPUSH Q15M PRN; Protocol PRN Reason: per Hypoglycemia Standing Ord. Divalproex Sodium (Divalproex Sodium Er 250 Mg Tab.Er.24h) 250 mg PO DAILY@1700 [facility] Last Admin: 05/27/22 16:11 Dose: Not Given Documented By: DALILA Non-Admin Reason: Patient Refused Divalproex Sodium (Divalproex Sodium Er 500 Mg Tab.Er.24h) 500 mg PO DAILY [facility] Last Admin: 05/28/22 09:45 Dose: 500 mg Documented By: MAGDALENO Ferrous Sulfate (Ferrous Sulfate 324 Mg Tablet.Dr) 324 mg PO BID [facility] Last Admin: 05/28/22 09:44 Dose: 324 mg Documented By: MAGDALENO Fluticasone Propionate (Fluticasone Propionate Nasal 16 Gm [place]) 1 spray NOSTRIL-B BID [facility] Last Admin: 05/28/22 09:46 Dose: Not Given Documented By: MAGDALENO Non-Admin Reason: Patient Refused Furosemide (Furosemide 40 Mg Tablet) 40 mg PO DAILY [facility]; Protocol Last Admin: 05/28/22 09:44 Dose: 40 mg Documented By: MAGDALENO Glucose (Glucose Gel 15 Gm Gel..Gram.) 15 gm PO Q15M PRN; Protocol PRN Reason: per Hypoglycemia Standing Ord. Haloperidol (Haloperidol 5 Mg Tablet) 10 mg PO BID [facility] Last Admin: 05/28/22 09:44 Dose: 10 mg Documented By: MAGDALENO Insulin Glargine (Insulin Glargine,Hum.Rec.Anlog 100 Unit/Ml 10 Ml Vial) 10 unit SUBCUT BEDTIME [facility] Last Admin: 05/27/22 21:48 Dose: 10 unit Documented By: TAY Insulin Human Lispro (Insulin Lispro 100 Unit/Ml 3 Ml Vial) 0 unit SUBCUT QIDACHS [facility]; Protocol Last Admin: 05/28/22 08:36 Dose: Not Given Documented By: MAGDALENO Non-Admin Reason: No Insulin Coverage Melatonin (Melatonin 3 Mg Tablet) 6 mg PO BEDTIME PRN PRN Reason: Insomnia Last Admin: 05/06/22 20:12 Dose: 6 mg Documented By: SHARONILScooby Neomycin/Polymyxin/Hydrocortisone (Neomycin/Polymyxin/Hc Otic Melanie 10 Ml Drpbtl) 3 drop EAR-RIGHT QID [facility] Last Admin: 05/28/22 09:47 Dose: Not Given Documented By: MAGDALENO Non-Admin Reason: Patient Refused Olanzapine (Olanzapine Odt 10 Mg Tab.Rapdis) 5 mg TRANSLINGU BID PRN PRN Reason: agitation, psychosis Last Admin: 03/15/22 19:48 Dose: 5 mg Documented By: GENIE Omeprazole (Omeprazole 20 Mg Capsule.Dr) 20 mg PO DAILY@0630 [facility] Last Admin: 05/28/22 06:43 Dose: Not Given Documented By: TAY Non-Admin Reason: Patient Refused Senna (Sennosides 8.6 Mg Tablet) 17.2 mg PO BEDTIME PRN PRN Reason: Constipation Sildenafil Citrate (Sildenafil Citrate 20 Mg Tablet) 20 mg PO TID [facility] Last Admin: 05/28/22 09:44 Dose: 20 mg Documented By: MAGDALENO Sitagliptin Phosphate (Sitagliptin Phosphate 100 Mg Tablet) 100 mg PO DAILY [facility] Last Admin: 05/10/22 09:04 Dose: Not Given Documented By: MANSOOR Non-Admin Reason: Patient Refused Labs CBC & Chem 7: 04/23/22 07:52 05/24/22 09:56 Labs: Laboratory Results - last 24 hr 05/27/22 05/27/22 05/28/22 15:28 21:40 08:30 POC Glucose 199 H 205 H 137 H Assessment and Plan (1) Pulmonary hypertension: Status: Acute Plan 61-year-old male with a past medical history of schizophrenia, CHF, asthma/COPD, diabetes, hyperlipidemia presented from the [facility] with a chief complaint of acute hypoxia. Noted to have following conditions essentially no new issues, continue current care No further episodes of elopement, continue close observation, Camera in room Acute hypoxic respiratory failure on presentation suspected d/t COPD/asthma/CHF. Resolved Acute asthma/COPD, chronic intermittent No acute symptoms, continue bronchodilator, Patient has no formal diagnosis.? Patient is supposed to be following up with pulmonology as outpatient.? He? had similar presentation in December 2021. Pulmonary HTN Asymptomatic,? continue Viagra, outpatient follow up Heart failure with preserved ejection fraction EF 55 to 60,no acute exacerbation,seems euvolemic - continue adjusted oral Lasix 40 daily Diabetes/hyperglycemia blood sugars? in acceptable range continue lantus,? SSI, metformin and Sitagliptin schizoaffective disorder Continue home Depakote, haloperidol psych reeval noted -ammnonia seems fine , renal function/electrolytes seems fine. DVT prophylaxis:? Lovenox Code status: Full code.? Confirmed with the patient's guardian [facility] proxy invoked. Lacks capacity for medical decision, awaiting permanent placement. out of bed,ambulate with supervision. Need for inpatient : awaiting ,placement Quality Stroke Does the patient have a stroke diagnosis?: No VTE Prior VTE?: No VTE Risk Level:: Medical - moderate - high VTE Device Contraindication: Treatment Not Indicated VTE Drug Contraindication: N/A - Med Ordered
--- NOTE | 2022-05-28 11:42 | MHC.CM.PN ---
spoke with magalis at [facility] in [facility] sent her pulomonary consults as she requested faxed [phone]
[2022-05-28 12:50] LABS: Glucose, Whole Blood 103 mg/dL (60-115)
[2022-05-28 16:00] VITALS: BP 104/66; PULSE 75; RESP 18; TEMP 36.4; O2SAT 95
[2022-05-28 16:23] LABS: Glucose, Whole Blood 129 mg/dL (60-115)
[2022-05-28] MEDS: Divalproex Sodium ER 250 MG TAB.ER.24H PO (16:37)
[2022-05-28 20:14] LABS: Glucose, Whole Blood 184 mg/dL (60-115)
[2022-05-28] MEDS: Insulin Glargine,Hum.rec.anlog 100 UNIT/ML 10 ML VIAL 10 UNIT SUBCUT (20:38)
--- NOTE | 2022-05-29 09:33 | P.PNIM_ITS ---
Subjective Subjective Date of Service: 05/29/22 Interval History: Awaiting placement, no new issues Review of Systems no sob no cp Physical Exam Vital Signs: Vital Signs: Last Vital Signs Temp 97.6 F 05/28/22 16:00 Pulse 75 05/28/22 16:00 Resp 18 05/28/22 16:00 BP 104/66 05/28/22 16:00 Pulse Ox 95 05/28/22 16:00 O2 Del Method 05/28/22 16:00 O2 Flow Rate 2 02/16/22 07:18 FiO2 94 02/13/22 15:38 BMI result Body Mass Index 21.8 Const: Other: General: AO X 3, no acute distress Resp: CTA bilateral CVS: S1,S2,RRR GI: +BS, NT, no distention Skin: No rash Neuro: motor grossly intact Psych: appropriate affect Objective Data Active Medications Acetaminophen (Acetaminophen 325 Mg Tablet) 650 mg PO Q6H PRN PRN Reason: Pain, Mild (Pain Scale 1-3) Atorvastatin Calcium (Atorvastatin Calcium 40 Mg Tablet) 40 mg PO DAILY [facility] Last Admin: 05/29/22 08:27 Dose: Not Given Documented By: CATARINA Non-Admin Reason: Patient Refused Dextrose (Dextrose 50 % 25 Gm/50 Ml Syringe) 25 gm IVPUSH Q15M PRN; Protocol PRN Reason: per Hypoglycemia Standing Ord. Divalproex Sodium (Divalproex Sodium Er 250 Mg Tab.Er.24h) 250 mg PO DAILY@1700 [facility] Last Admin: 05/28/22 16:37 Dose: 250 mg Documented By: MAGDALENO Divalproex Sodium (Divalproex Sodium Er 500 Mg Tab.Er.24h) 500 mg PO DAILY [facility] Last Admin: 05/29/22 08:27 Dose: Not Given Documented By: CATARINA Non-Admin Reason: Patient Refused Ferrous Sulfate (Ferrous Sulfate 324 Mg Tablet.) 324 mg PO BID [facility] Last Admin: 05/29/22 08:28 Dose: Not Given Documented By: CATARINA Non-Admin Reason: Patient Refused Fluticasone Propionate (Fluticasone Propionate Nasal 16 Gm [place]) 1 spray NOSTRIL-B BID [facility] Last Admin: 05/29/22 08:28 Dose: Not Given Documented By: CATARINA Non-Admin Reason: Patient Refused Furosemide (Furosemide 40 Mg Tablet) 40 mg PO DAILY [facility]; Protocol Last Admin: 05/29/22 08:28 Dose: Not Given Documented By: CATARINA Non-Admin Reason: Patient Refused Glucose (Glucose Gel 15 Gm Gel..Gram.) 15 gm PO Q15M PRN; Protocol PRN Reason: per Hypoglycemia Standing Ord. Haloperidol (Haloperidol 5 Mg Tablet) 10 mg PO BID [facility] Last Admin: 05/29/22 08:28 Dose: Not Given Documented By: CATARINA Non-Admin Reason: Patient Refused Insulin Glargine (Insulin Glargine,Hum.Rec.Anlog 100 Unit/Ml 10 Ml Vial) 10 unit SUBCUT BEDTIME [facility] Last Admin: 05/28/22 20:38 Dose: 10 unit Documented By: TEODORO Insulin Human Lispro (Insulin Lispro 100 Unit/Ml 3 Ml Vial) 0 unit SUBCUT QIDACHS [facility]; Protocol Last Admin: 05/29/22 08:27 Dose: Not Given Documented By: CATARINA Non-Admin Reason: Patient Refused Melatonin (Melatonin 3 Mg Tablet) 6 mg PO BEDTIME PRN PRN Reason: Insomnia Last Admin: 05/06/22 20:12 Dose: 6 mg Documented By: SHARONILScooby Neomycin/Polymyxin/Hydrocortisone (Neomycin/Polymyxin/Hc Otic Melanie 10 Ml Drpbtl) 3 drop EAR-RIGHT QID [facility] Last Admin: 05/29/22 08:28 Dose: Not Given Documented By: CATARINA Non-Admin Reason: Patient Refused Olanzapine (Olanzapine Odt 10 Mg Tab.Rapdis) 5 mg TRANSLINGU BID PRN PRN Reason: agitation, psychosis Last Admin: 03/15/22 19:48 Dose: 5 mg Documented By: GENIE Omeprazole (Omeprazole 20 Mg Capsule.Dr) 20 mg PO DAILY@0630 [facility] Last Admin: 05/29/22 06:35 Dose: Not Given Documented By: TEODORO Non-Admin Reason: Patient Refused Senna (Sennosides 8.6 Mg Tablet) 17.2 mg PO BEDTIME PRN PRN Reason: Constipation Sildenafil Citrate (Sildenafil Citrate 20 Mg Tablet) 20 mg PO TID [facility] Last Admin: 05/29/22 08:29 Dose: Not Given Documented By: CATARINA Non-Admin Reason: Patient Refused Sitagliptin Phosphate (Sitagliptin Phosphate 100 Mg Tablet) 100 mg PO DAILY [facility] Last Admin: 05/10/22 09:04 Dose: Not Given Documented By: MANSOOR Non-Admin Reason: Patient Refused Labs CBC & Chem 7: 04/23/22 07:52 05/24/22 09:56 Labs: Laboratory Results - last 24 hr 05/28/22 05/28/22 05/28/22 12:45 16:17 19:26 POC Glucose 103 129 H 184 H Assessment and Plan (1) Pulmonary hypertension: Status: Acute Plan 61-year-old male with a past medical history of schizophrenia, CHF, asthma/COPD, diabetes, hyperlipidemia [facility] with a chief complaint of acute hypoxia. Noted to have following conditions Clinically stable, no new issue, continue care and dc when placement available No further episodes of elopement, continue close observation, Camera in room Acute hypoxic respiratory failure on presentation suspected d/t COPD/asthma/CHF. Resolved Acute asthma/COPD, chronic intermittent No acute symptoms, continue bronchodilator, Patient has no formal diagnosis.? Patient is supposed to be following up with pulmonology as outpatient.? He? had similar presentation in December 2021. Pulmonary HTN Asymptomatic,? continue Viagra, outpatient follow up Heart failure with preserved ejection fraction EF 55 to 60,no acute exacerbation,seems euvolemic - continue adjusted oral Lasix 40 daily Diabetes/hyperglycemia blood sugars? in acceptable range continue lantus,? SSI, metformin and Sitagliptin schizoaffective disorder Continue home Depakote, haloperidol psych reeval noted -ammnonia seems fine , renal function/electrolytes seems fine. DVT prophylaxis:? Lovenox Code status: Full code.? Confirmed with the patient's guardian [facility] proxy invoked. Lacks capacity for medical decision, awaiting permanent placement. out of bed,ambulate with supervision. Need for inpatient : awaiting ,placement Quality Stroke Does the patient have a stroke diagnosis?: No VTE Prior VTE?: No VTE Risk Level:: Medical - moderate - high VTE Device Contraindication: Treatment Not Indicated VTE Drug Contraindication: N/A - Med Ordered
[2022-05-29 11:15] LABS: Glucose, Whole Blood 129 mg/dL (60-115)
[2022-05-29 16:00] VITALS: BP 107/62; PULSE 69; RESP 17; TEMP 36.4; O2SAT 95
[2022-05-29 16:34] LABS: Glucose, Whole Blood 174 mg/dL (60-115)
[2022-05-29 19:55] LABS: Glucose, Whole Blood 161 mg/dL (60-115)
[2022-05-29] MEDS: Insulin Glargine,Hum.rec.anlog 100 UNIT/ML 10 ML VIAL 10 UNIT SUBCUT (20:10)
[2022-05-29] MEDS: HaloperidoL 5 MG TABLET 10 MG PO (21:19)
--- NOTE | 2022-05-30 08:51 | MHC.CM.PN ---
CM RECEIVED CALL FROM YSABEL AT [facility] REQUESTING PT HAVE PULMONARY FOLLOW-UP, OFFERED A FACE TIME CALL TO ANSWER QUESTIONS FOR PT AND ASKING FOR RESULTS OF LATEST GUARDIANSHIP HEARING. CM TO REQUEST PULMONARY CONSULT, CM WILL MEET W/PT TO SEE IF [facility]OULD [facility] AND CM DIRECTOR AWAITING NEW GUARDIANSHIP PAPERWORK FROM COURT HEARING 05/28/22.
[2022-05-30] MEDS: HaloperidoL 5 MG TABLET 10 MG PO ×2 (09:47→21:26)
[2022-05-30] MEDS: Sildenafil Citrate 20 MG TABLET PO (09:47)
[2022-05-30] MEDS: Atorvastatin Calcium 40 MG TABLET PO (09:47)
[2022-05-30] MEDS: Furosemide 40 MG TABLET PO (09:47)
[2022-05-30] MEDS: Divalproex Sodium ER 500 MG TAB.ER.24H PO (09:47)
[2022-05-30] MEDS: Ferrous Sulfate 324 MG TABLET.DR PO (09:47)
--- NOTE | 2022-05-30 09:50 | PC.NURSE ---
Patient compliant with all PO medications this morning, no complaints or issues at this time, no behaviors noted.
--- NOTE | 2022-05-30 10:21 | MHC.CM.PN ---
PER CM DIRECTOR ANDREWBHAVIK SLADE WAS GRANTED PERMANENT GUARDIANSHIP AND ILEANA IS AWAITING GUARDIANSHIP PAPERWORK FROM COURTS, YSABEL AT [facility] UPDATED AT 10:20AM [phone]. YSABEL REPORTS SHE WILL BE IN CONTACT W/CM LATER TODAY.
--- NOTE | 2022-05-30 11:20 | P.PNIM_ITS ---
Subjective Subjective Date of Service: 05/30/22 Interval History: Awaiting placement, no new issues Review of Systems no sob no cp Physical Exam Vital Signs: Vital Signs: Last Vital Signs Temp 97.5 F 05/29/22 16:00 Pulse 69 05/29/22 16:00 Resp 17 05/29/22 16:00 BP 107/62 05/29/22 16:00 Pulse Ox 95 05/29/22 16:00 O2 Del Method 05/29/22 16:00 O2 Flow Rate 2 02/16/22 07:18 FiO2 94 02/13/22 15:38 BMI result Body Mass Index 21.8 Const: Other: General: AO X 3, no acute distress Resp: CTA bilateral CVS: S1,S2,RRR GI: +BS, NT, no distention Skin: No rash Neuro: motor grossly intact Psych: appropriate affect Objective Data Active Medications Acetaminophen (Acetaminophen 325 Mg Tablet) 650 mg PO Q6H PRN PRN Reason: Pain, Mild (Pain Scale 1-3) Atorvastatin Calcium (Atorvastatin Calcium 40 Mg Tablet) 40 mg PO DAILY [facility] Last Admin: 05/30/22 09:47 Dose: 40 mg Documented By: LUCILA Dextrose (Dextrose 50 % 25 Gm/50 Ml Syringe) 25 gm IVPUSH Q15M PRN; Protocol PRN Reason: per Hypoglycemia Standing Ord. Divalproex Sodium (Divalproex Sodium Er 250 Mg Tab.Er.24h) 250 mg PO DAILY@1700 [facility] Last Admin: 05/29/22 16:36 Dose: Not Given Documented By: CATARINA Non-Admin Reason: Patient Refused Divalproex Sodium (Divalproex Sodium Er 500 Mg Tab.Er.24h) 500 mg PO DAILY [facility] Last Admin: 05/30/22 09:47 Dose: 500 mg Documented By: LUCILA Ferrous Sulfate (Ferrous Sulfate 324 Mg Tablet.Dr) 324 mg PO BID [facility] Last Admin: 05/30/22 09:47 Dose: 324 mg Documented By: LUCILA Fluticasone Propionate (Fluticasone Propionate Nasal 16 Gm [place]) 1 spray NOSTRIL-B BID [facility] Last Admin: 05/30/22 10:34 Dose: Not Given Documented By: LUCILA Non-Admin Reason: respiratory Furosemide (Furosemide 40 Mg Tablet) 40 mg PO DAILY [facility]; Protocol Last Admin: 05/30/22 09:47 Dose: 40 mg Documented By: LUCILA Glucose (Glucose Gel 15 Gm Gel..Gram.) 15 gm PO Q15M PRN; Protocol PRN Reason: per Hypoglycemia Standing Ord. Haloperidol (Haloperidol 5 Mg Tablet) 10 mg PO BID [facility] Last Admin: 05/30/22 09:47 Dose: 10 mg Documented By: LUCILA Insulin Glargine (Insulin Glargine,Hum.Rec.Anlog 100 Unit/Ml 10 Ml Vial) 10 unit SUBCUT BEDTIME [facility] Last Admin: 05/29/22 20:10 Dose: 10 unit Documented By: BLADIMIR Insulin Human Lispro (Insulin Lispro 100 Unit/Ml 3 Ml Vial) 0 unit SUBCUT QIDACHS [facility]; Protocol Last Admin: 05/30/22 07:42 Dose: Not Given Documented By: LUCILA Non-Admin Reason: Pt refused POC Melatonin (Melatonin 3 Mg Tablet) 6 mg PO BEDTIME PRN PRN Reason: Insomnia Last Admin: 05/06/22 20:12 Dose: 6 mg Documented By: CASTILScooby Neomycin/Polymyxin/Hydrocortisone (Neomycin/Polymyxin/Hc Otic Melanie 10 Ml Drpbtl) 3 drop EAR-RIGHT QID [facility] Last Admin: 05/30/22 08:43 Dose: Not Given Documented By: LUCILA Non-Admin Reason: Patient Refused Olanzapine (Olanzapine Odt 10 Mg Tab.Rapdis) 5 mg TRANSLINGU BID PRN PRN Reason: agitation, psychosis Last Admin: 03/15/22 19:48 Dose: 5 mg Documented By: GENIE Omeprazole (Omeprazole 20 Mg Capsule.Dr) 20 mg PO DAILY@0630 [facility] Last Admin: 05/30/22 05:30 Dose: Not Given Documented By: BLADIMIR Non-Admin Reason: Patient Refused Senna (Sennosides 8.6 Mg Tablet) 17.2 mg PO BEDTIME PRN PRN Reason: Constipation Sildenafil Citrate (Sildenafil Citrate 20 Mg Tablet) 20 mg PO TID [facility] Last Admin: 05/30/22 09:47 Dose: 20 mg Documented By: LUCILA Sitagliptin Phosphate (Sitagliptin Phosphate 100 Mg Tablet) 100 mg PO DAILY [facility] Last Admin: 05/10/22 09:04 Dose: Not Given Documented By: MANSOOR Non-Admin Reason: Patient Refused Labs CBC & Chem 7: 09/19/22 07:52 05/24/22 09:56 Labs: Laboratory Results - last 24 hr 05/29/22 05/29/22 16:25 19:47 POC Glucose 174 H 161 H Assessment and Plan (1) Pulmonary hypertension: Status: Acute Plan 61-year-old male with a past medical history of schizophrenia, CHF, asthma/COPD, diabetes, hyperlipidemia presented from the shelter with a chief complaint of acute hypoxia. Noted to have following conditions Clinically stable, no new issue, continue care and dc when placement available No further episodes of elopement, continue close observation, Camera in room Acute hypoxic respiratory failure on presentation suspected d/t COPD/asthma/CHF. Resolved Acute asthma/COPD, chronic intermittent No acute symptoms, continue bronchodilator, Patient has no formal diagnosis.? Patient is supposed to be following up with pulmonology as outpatient.? He? had similar presentation in December 2021. Generally doing well, but will get Pulmonary to see in follow up Pulmonary HTN Asymptomatic,? continue Viagra, outpatient follow up Heart failure with preserved ejection fraction EF 55 to 60,no acute exacerbation,seems euvolemic - continue adjusted oral Lasix 40 daily Diabetes/hyperglycemia blood sugars? in acceptable range continue lantus,? SSI, metformin and Sitagliptin schizoaffective disorder Continue home Depakote, haloperidol psych reeval noted -ammnonia seems fine , renal function/electrolytes seems fine. DVT prophylaxis:? Lovenox Code status: Full code.? Confirmed with the patient's guardian [facility] proxy invoked. Lacks capacity for medical decision, awaiting permanent placement. out of bed,ambulate with supervision. Need for inpatient : awaiting ,placement Quality Stroke Does the patient have a stroke diagnosis?: No VTE Prior VTE?: No VTE Risk Level:: Medical - moderate - high VTE Device Contraindication: Treatment Not Indicated VTE Drug Contraindication: N/A - Med Ordered
[2022-05-30 16:14] VITALS: BP 97/54; PULSE 76; RESP 18; TEMP 36.4; O2SAT 94
[2022-05-30 16:36] LABS: Glucose, Whole Blood 226 mg/dL (60-115)
[2022-05-30] MEDS: Insulin Lispro 100 UNIT/ML 3 ML VIAL SUBCUT (16:45)
[2022-05-30] MEDS: Divalproex Sodium ER 250 MG TAB.ER.24H PO (16:46)
[2022-05-30 19:54] LABS: Glucose, Whole Blood 150 mg/dL (60-115)
[2022-05-30] MEDS: Insulin Glargine,Hum.rec.anlog 100 UNIT/ML 10 ML VIAL 10 UNIT SUBCUT (21:26)
--- NOTE | 2022-05-31 08:54 | P.PNIM_ITS ---
Subjective Subjective Date of Service: 05/31/22 Interval History: Awaiting placement, no new issues Review of Systems no sob no cp Physical Exam Vital Signs: Vital Signs: Last Vital Signs Temp 97.6 F 05/30/22 16:14 Pulse 76 05/30/22 16:14 Resp 18 05/30/22 16:14 BP 97/54 L 05/30/22 16:14 Pulse Ox 94 05/30/22 16:14 O2 Del Method 05/30/22 16:14 O2 Flow Rate 2 02/16/22 07:18 FiO2 94 02/13/22 15:38 BMI result Body Mass Index 21.8 Const: Other: General: AO X 3, no acute distress Resp: CTA bilateral CVS: S1,S2,RRR GI: +BS, NT, no distention Skin: No rash Neuro: motor grossly intact Psych: appropriate affect Objective Data Active Medications Acetaminophen (Acetaminophen 325 Mg Tablet) 650 mg PO Q6H PRN PRN Reason: Pain, Mild (Pain Scale 1-3) Atorvastatin Calcium (Atorvastatin Calcium 40 Mg Tablet) 40 mg PO DAILY [facility] Last Admin: 05/30/22 09:47 Dose: 40 mg Documented By: LUCILA Dextrose (Dextrose 50 % 25 Gm/50 Ml Syringe) 25 gm IVPUSH Q15M PRN; Protocol PRN Reason: per Hypoglycemia Standing Ord. Divalproex Sodium (Divalproex Sodium Er 250 Mg Tab.Er.24h) 250 mg PO DAILY@1700 [facility] Last Admin: 05/30/22 16:46 Dose: 250 mg Documented By: LUCILA Divalproex Sodium (Divalproex Sodium Er 500 Mg Tab.Er.24h) 500 mg PO DAILY [facility] Last Admin: 05/30/22 09:47 Dose: 500 mg Documented By: LUCILA Ferrous Sulfate (Ferrous Sulfate 324 Mg Tablet.Dr) 324 mg PO BID [facility] Last Admin: 05/30/22 21:28 Dose: Not Given Documented By: BLADIMIR Non-Admin Reason: Patient Refused Fluticasone Propionate (Fluticasone Propionate Nasal 16 Gm [place]) 1 spray NOSTRIL-B BID [facility] Last Admin: 05/30/22 21:28 Dose: Not Given Documented By: BLADIMIR Non-Admin Reason: Patient Refused Furosemide (Furosemide 40 Mg Tablet) 40 mg PO DAILY [facility]; Protocol Last Admin: 05/30/22 09:47 Dose: 40 mg Documented By: LUCILA Glucose (Glucose Gel 15 Gm Gel..Gram.) 15 gm PO Q15M PRN; Protocol PRN Reason: per Hypoglycemia Standing Ord. Haloperidol (Haloperidol 5 Mg Tablet) 10 mg PO BID [facility] Last Admin: 05/30/22 21:26 Dose: 10 mg Documented By: BLADIMIR Insulin Glargine (Insulin Glargine,Hum.Rec.Anlog 100 Unit/Ml 10 Ml Vial) 10 unit SUBCUT BEDTIME [facility] Last Admin: 05/30/22 21:26 Dose: 10 unit Documented By: BLADIMIR Insulin Human Lispro (Insulin Lispro 100 Unit/Ml 3 Ml Vial) 0 unit SUBCUT QIDACHS [facility]; Protocol Last Admin: 05/30/22 21:28 Dose: Not Given Documented By: BLADIMIR Non-Admin Reason: No Insulin Coverage Melatonin (Melatonin 3 Mg Tablet) 6 mg PO BEDTIME PRN PRN Reason: Insomnia Last Admin: 05/06/22 20:12 Dose: 6 mg Documented By: SHARONILScooby Neomycin/Polymyxin/Hydrocortisone (Neomycin/Polymyxin/Hc Otic Melanie 10 Ml Drpbtl) 3 drop EAR-RIGHT QID [facility] Last Admin: 05/30/22 21:31 Dose: Not Given Documented By: BLADIMIR Non-Admin Reason: Patient Refused Olanzapine (Olanzapine Odt 10 Mg Tab.Rapdis) 5 mg TRANSLINGU BID PRN PRN Reason: agitation, psychosis Last Admin: 03/15/22 19:48 Dose: 5 mg Documented By: GENIE Omeprazole (Omeprazole 20 Mg Capsule.Dr) 20 mg PO DAILY@0630 [facility] Last Admin: 05/31/22 04:52 Dose: Not Given Documented By: BLADIMIR Non-Admin Reason: Patient Refused Senna (Sennosides 8.6 Mg Tablet) 17.2 mg PO BEDTIME PRN PRN Reason: Constipation Sildenafil Citrate (Sildenafil Citrate 20 Mg Tablet) 20 mg PO TID [facility] Last Admin: 05/30/22 21:31 Dose: Not Given Documented By: BLADIMIR Non-Admin Reason: Patient Refused Sitagliptin Phosphate (Sitagliptin Phosphate 100 Mg Tablet) 100 mg PO DAILY [facility] Last Admin: 05/10/22 09:04 Dose: Not Given Documented By: MANSOOR Non-Admin Reason: Patient Refused Labs CBC & Chem 7: 04/23/22 07:52 05/24/22 09:56 Labs: Laboratory Results - last 24 hr 05/30/22 05/30/22 16:18 19:48 POC Glucose 226 H 150 H Assessment and Plan (1) Pulmonary hypertension: Status: Acute Plan 61-year-old male with a past medical history of schizophrenia, CHF, asthma/COPD, diabetes, hyperlipidemia presented from the detention with a chief complaint of acute hypoxia. Noted to have following conditions Clinically stable, no new issue, continue care and dc when placement available No further episodes of elopement, continue close observation, Camera in room Acute hypoxic respiratory failure on presentation suspected d/t COPD/asthma/CHF. Resolved Acute asthma/COPD, chronic intermittent No acute symptoms, continue bronchodilator, Patient has no formal diagnosis.? Patient is supposed to be following up with pulmonology as outpatient.? He? had similar presentation in December 2021. Generally doing well, but will get Pulmonary to see in follow up Pulmonary HTN Asymptomatic,? continue Viagra, outpatient follow up Heart failure with preserved ejection fraction EF 55 to 60,no acute exacerbation,seems euvolemic - continue adjusted oral Lasix 40 daily Diabetes/hyperglycemia blood sugars? in acceptable range continue lantus,? SSI, metformin and Sitagliptin schizoaffective disorder Continue home Depakote, haloperidol psych reeval noted -ammnonia seems fine , renal function/electrolytes seems fine. DVT prophylaxis:? Lovenox Code status: Full code.? Confirmed with the patient's guardian [facility] proxy invoked. Lacks capacity for medical decision, awaiting permanen t placement. out of bed,ambulate with supervision. Need for inpatient : awaiting ,placement Quality Stroke Does the patient have a stroke diagnosis?: No VTE Prior VTE?: No VTE Risk Level:: Medical - moderate - high VTE Device Contraindication: Treatment Not Indicated VTE Drug Contraindication: N/A - Med Ordered
--- NOTE | 2022-05-31 09:11 | MHC.CM.PN ---
PERMANENT GUARDIANSHIP AND MED TX PLAN FAXED TO [facility] AT [facility] AT 8:31AM, FAX CONFIRMATION RECEIVED.
--- NOTE | 2022-05-31 09:49 | PM.CNPUL ---
History of Present Illness History of Present Illness Consult date: 05/31/22 Chief complaint: Acute hypoxic respiratory failure Narrative: I was us to see this patient for pulmonary evaluation. This gentleman 61 years old has been here for several weeks, initially admitted with acute respiratory failure, Secondary to possible acute exacerbation of bronchial asthma or congestive heart failure. Subsequently he is doing well, he has been off oxygen, denies any cough wheezing or shortness of breath. He does have mild intermittent nasal congestion which is controlled with Flonase nasal spray. He is being treated for pulmonary hypertension because was found to have increased right ventricular systolic pressure on echocardiogram. He is tolerating sildenafil 20 mg t.i.d.. Talked to him about his past medical history and actually he denies having had any asthma or COPD. He denies smoking cigarettes ( I would not rely on his statement ) He does have history of cocaine abuse. He is a case of the chronic Schizophrenic Disorder , and needs to be discharged to a rehab facility. Review of Systems Review of Systems: At this time he is not complaining of any significant symptoms. Yes Unobtainable due to mental condition PMFSH Past Medical History Medical History (Updated 05/31/22 @ 09:59 by Dimitri Elmore MD) Acute dyspnea Acute respiratory failure Asthma exacerbation Bronchial asthma CHF (congestive heart failure) Diabetes Hypoxia Malignant otitis externa Pneumonia Social History Social History Household Members: Other Housing: Other Housing Other:: halfway Do you presently have visiting nurse or other home services: No Patient Tobacco Use Status: Former Tobacco user Quit Date: 12/07/2021 Tobacco use type: Cigarette Smoked in Last 30 Days: No Patient Interested in Nicotine Replacement: No Patient Given Instructions on How to Stop Smoking: No Second Hand Smoke Exposure: No Use of substances other than those prescribed or required for medical reasons: No Substance Use Type: Former Substance User Currently Displaying Signs/Symptoms of Drug Intoxication Withdrawal: No Have you been hit, kicked, punched, or otherwise hurt by someone within the past year? If so, by whom?: No Do you feel safe in your current relationship?: No Current Relationship Is there a partner from a previous relationship who is making you feel unsafe now?: No Are you made to feel afraid or neglected: No Advance Directives: No Advance Directives Information Provided: No Do you have thoughts of harming others: None Do you have a plan to hurt others: No Plan Recently lost weight without trying: No How much weight loss: Not applicable Eating poorly because of decreased appetite: No Nutrition screen score: 0 Nutrition Risks: No Nutritional Risk Poor oral hygiene: No service: No Current occupational status: disabled Meds Allergies Allergy/AdvReac Type Severity Reaction Status Date / Time No Known Allergies Allergy Verified 11/05/21 22:25 Active Medications: Current Medications Acetaminophen (Acetaminophen 325 Mg Tablet) 650 mg PO Q6H PRN PRN Reason: Pain, Mild (Pain Scale 1-3) Atorvastatin Calcium (Atorvastatin Calcium 40 Mg Tablet) 40 mg PO DAILY [facility] Last Admin: 05/30/22 09:47 Dose: 40 mg Dextrose (Dextrose 50 % 25 Gm/50 Ml Syringe) 25 gm IVPUSH Q15M PRN; Protocol PRN Reason: per Hypoglycemia Standing Ord. Divalproex Sodium (Divalproex Sodium Er 250 Mg Tab.Er.24h) 250 mg PO DAILY@1700 [facility] Last Admin: 05/30/22 16:46 Dose: 250 mg Divalproex Sodium (Divalproex Sodium Er 500 Mg Tab.Er.24h) 500 mg PO DAILY [facility] Last Admin: 05/30/22 09:47 Dose: 500 mg Ferrous Sulfate (Ferrous Sulfate 324 Mg Tablet.Dr) 324 mg PO BID [facility] Last Admin: 05/30/22 21:28 Dose: Not Given Fluticasone Propionate (Fluticasone Propionate Nasal 16 Gm Fisk) 1 spray NOSTRIL-B BID [facility] Last Admin: 05/30/22 21:28 Dose: Not Given Furosemide (Furosemide 40 Mg Tablet) 40 mg PO DAILY [facility]; Protocol Last Admin: 05/30/22 09:47 Dose: 40 mg Glucose (Glucose Gel 15 Gm Gel..Gram.) 15 gm PO Q15M PRN; Protocol PRN Reason: per Hypoglycemia Standing Ord. Haloperidol (Haloperidol 5 Mg Tablet) 10 mg PO BID [facility] Last Admin: 05/30/22 21:26 Dose: 10 mg Insulin Glargine (Insulin Glargine,Hum.Rec.Anlog 100 Unit/Ml 10 Ml Vial) 10 unit SUBCUT BEDTIME [facility] Last Admin: 05/30/22 21:26 Dose: 10 unit Insulin Human Lispro (Insulin Lispro 100 Unit/Ml 3 Ml Vial) 0 unit SUBCUT QIDACHS [facility]; Protocol Last Admin: 05/30/22 21:28 Dose: Not Given Melatonin (Melatonin 3 Mg Tablet) 6 mg PO BEDTIME PRN PRN Reason: Insomnia Last Admin: 05/06/22 20:12 Dose: 6 mg Neomycin/Polymyxin/Hydrocortisone (Neomycin/Polymyxin/Hc Otic Melanie 10 Ml Drpbtl) 3 drop EAR-RIGHT QID [facility] Last Admin: 05/30/22 21:31 Dose: Not Given Olanzapine (Olanzapine Odt 10 Mg Tab.Rapdis) 5 mg TRANSLINGU BID PRN PRN Reason: agitation, psychosis Last Admin: 03/15/22 19:48 Dose: 5 mg Omeprazole (Omeprazole 20 Mg Capsule.Dr) 20 mg PO DAILY@0630 [facility] Last Admin: 05/31/22 04:52 Dose: Not Given Senna (Sennosides 8.6 Mg Tablet) 17.2 mg PO BEDTIME PRN PRN Reason: Constipation Sildenafil Citrate (Sildenafil Citrate 20 Mg Tablet) 20 mg PO TID [facility] Last Admin: 05/30/22 21:31 Dose: Not Given Sitagliptin Phosphate (Sitagliptin Phosphate 100 Mg Tablet) 100 mg PO DAILY [facility] Last Admin: 05/10/22 09:04 Dose: Not Given Home Medications Medication Instructions Recorded Confirmed Last Taken Type atorvastatin 40 mg tablet 1 tab PO DAILY 11/06/21 01/09/22 01/09/22 History haloperidol 10 mg tablet 1 tab PO BID 11/06/21 01/09/22 01/09/22 History pantoprazole 40 mg tablet,delayed 1 tab PO DAILY 11/06/21 01/09/22 01/09/22 History release sitagliptin 100 mg tablet (Fabrice) 1 tab PO DAILY 11/06/21 01/09/22 01/09/22 History divalproex 250 mg tablet,extended 250 mg PO DAILY@1700 12/12/21 01/09/22 01/08/22 History release 24 hr divalproex 250 mg tablet,extended 500 mg PO DAILY 12/12/21 01/09/22 01/09/22 History release 24 hr ferrous sulfate 325 mg (65 mg 1 tab PO BID 12/12/21 01/09/22 01/09/22 History iron) tablet,delayed release fluticasone propionate 50 1 spray intranasal BID 12/12/21 01/09/2201/09/22 History mcg/actuation nasal spray,suspension haloperidol 5 mg tablet 1 tab PO DAILY@1700 12/12/21 01/09/22 01/08/22 History insulin aspart U-100 100 unit/mL 0 sliding scale dose subcut BID 12/12/21 01/09/22 01/09/22 History (3 mL) subcutaneous pen (Novolog hyperglycemia Flexpen U-100 Insulin aspart) lorazepam 1 mg tablet 1 tab PO DAILY PRN Anxiety 12/12/21 01/09/22 01/08/22 History metformin 500 mg tablet 1 tab PO BIDWM 01/09/22 01/09/22 01/09/22 History Physical Exam Vital Signs: Vital Signs: Last Vital Signs Temp 97.6 F 05/30/22 16:14 Pulse 76 05/30/22 16:14 Resp 18 05/30/22 16:14 BP 97/54 L 05/30/22 16:14 Pulse Ox 94 05/30/22 16:14 O2 Del Method 05/30/22 16:14 O2 Flow Rate 2 02/16/22 07:18 FiO2 94 02/13/22 15:38 BMI result Body Mass Index 21.8 Const: General: healthy appearing, comfortable, no acute distress, alert and awake Orientation/consciousness: patient oriented x3 HEENT: Head: Yes normal to inspection General nose exam: No nasal polyps present and No nasal discharge present Face and sinus: Yes sinuses nontender Mouth: oropharynx normal Throat: Yes posterior oropharynx normal Eyes: General: appearance normal, both eyes and all related structures Neck: Neck: Yes normal visual inspection, Yes no lymphadenopathy, Yes trachea midline and Yes no JVD Thyroid: Thyroid normal Chest: Chest palpation & inspection: normal inspection of the chest, normal palpation of entire chest wall and no tenderness Resp: Effort & Inspection: normal respiratory effort Auscultation: clear to auscultation bilaterally, no crackles and no wheezes Cardio: Palpation: normal PMI Rate: regular rate Rhythm: regular rhythm Heart sounds: no gallops and no murmurs Peripheral pulses: Peripheral pulses 2+ throughout GI: Palpation (GI): Soft to palpation, nontender, No hepatosplenomegaly present and no masses Auscultation: normal bowel sounds Back/Spine/Pelvis: Thoracic/Lumbar Spine: thoracic and lumbar spine normal to inspection Skin: General skin exam: no rashes or lesions noted Neuro: General: patient oriented x3 and no focal motor deficits Cranial nerves: Yes CN's II-XII intact bilaterally Extrem: General: Yes normal to inspection, Yes no clubbing, cyanosis or edema and Yes no calf tenderness Psych: Appearance: grossly normal Speech and movement: Normal speech and movement present Results Laboratory Findings CBC and BMP: 04/23/22 07:52 05/24/22 09:56 Abnormal lab findings: Abnormal Labs 01/09/22 01/09/22 01/09/22 18:12 18:12 18:12 WBC Hgb 13.0 L Hct MCH 24.4 L MCHC 29.2 L RDW 19.1 H Neut % (Auto) 91.8 H Lymph % (Auto) 6.9 L [place] % (Auto) 0.9 L Eos % (Auto) Lymph # (Auto) 0.5 L Absolute Neuts (auto) VBG HCO3 Potassium Chloride 93 L Carbon Dioxide 35 H Anion Gap BUN POC Glucose Random Glucose 378 H* Fasting Glucose Lactic Acid Lactic Acid F/U @ 2Hr Lactic Acid F/U @ 4Hr Ammonia B-Natriuretic Peptide 764 H Total Protein Albumin Valproic Acid IgE 01/09/22 01/09/22 01/09/22 18:12 20:07 20:31 WBC Hgb Hct MCH MCHC RDW Neut % (Auto) Lymph % (Auto) [place] % (Auto) Eos % (Auto) Lymph # (Auto) Absolute Neuts (auto) VBG HCO3 41 H Potassium Chloride Carbon Dioxide Anion Gap BUN POC Glucose 390 H* Random Glucose Fasting Glucose Lactic Acid 4.2 H* Lactic Acid F/U @ 2Hr Lactic Acid F/U @ 4Hr Ammonia B-Natriuretic Peptide Total Protein Albumin Valproic Acid IgE 01/09/22 01/10/22 01/10/22 22:31 01:12 03:43 WBC 3.4 L Hgb 12.4 L Hct MCH 24.2 L MCHC 29.2 L RDW 18.6 H Neut % (Auto) 81.3 H Lymph % (Auto) 16.9 L [place] % (Auto) 1.5 L Eos % (Auto) Lymph # (Auto) 0.6 L Absolute Neuts (auto) VBG HCO3 Potassium Chloride Carbon Dioxide Anion Gap BUN POC Glucose Random Glucose Fasting Glucose Lactic Acid Lactic Acid F/U @ 2Hr 4.2 H* Lactic Acid F/U @ 4Hr 3.0 H* Ammonia B-Natriuretic Peptide Total Protein Albumin Valproic Acid IgE 01/10/22 01/10/22 01/10/22 03:43 03:43 07:25 WBC Hgb Hct MCH MCHC RDW Neut % (Auto) Lymph % (Auto) [place] % (Auto) Eos % (Auto) Lymph # (Auto) Absolute Neuts (auto) VBG HCO3 Potassium Chloride 93 L Carbon Dioxide 33 H Anion Gap BUN 18 H POC Glucose 271 H Random Glucose 375 H* Fasting Glucose Lactic Acid Lactic Acid F/U @ 2Hr Lactic Acid F/U @ 4Hr Ammonia B-Natriuretic Peptide Total Protein Albumin Valproic Acid IgE 3571 H 01/10/22 01/10/22 01/10/22 11:02 15:24 19:09 WBC Hgb Hct MCH MCHC RDW Neut % (Auto) Lymph % (Auto) [place] % (Auto) Eos % (Auto) Lymph # (Auto) Absolute Neuts (auto) VBG HCO3 Potassium Chloride Carbon Dioxide Anion Gap BUN POC Glucose 356 H* 241 H 358 H* Random Glucose Fasting Glucose Lactic Acid Lactic Acid F/U @ 2Hr Lactic Acid F/U @ 4Hr Ammonia B-Natriuretic Peptide Total Protein Albumin Valproic Acid IgE 01/11/22 01/11/22 01/11/22 05:15 05:15 05:15 WBC Hgb 11.5 L Hct 39.8 L MCH 24.0 L MCHC 28.9 L RDW 18.1 H Neut % (Auto) 88.7 H Lymph % (Auto) 6.9 L [place] % (Auto) Eos % (Auto) Lymph # (Auto) 0.5 L Absolute Neuts (auto) VBG HCO3 Potassium Chloride Carbon Dioxide 37 H Anion Gap BUN 27 H POC Glucose Random Glucose Fasting Glucose 312 H Lactic Acid Lactic Acid F/U @ 2Hr Lactic Acid F/U @ 4Hr Ammonia B-Natriuretic Peptide 259 H Total Protein Albumin Valproic Acid IgE 01/11/22 01/11/22 01/11/22 07:16 11:39 15:30 WBC Hgb Hct MCH MCHC RDW Neut % (Auto) Lymph % (Auto) [place] % (Auto) Eos % (Auto) Lymph # (Auto) Absolute Neuts (auto) VBG HCO3 Potassium Chloride Carbon Dioxide Anion Gap BUN POC Glucose 281 H 294 H 273 H Random Glucose Fasting Glucose Lactic Acid Lactic Acid F/U @ 2Hr Lactic Acid F/U @ 4Hr Ammonia B-Natriuretic Peptide Total Protein Albumin Valproic Acid IgE 01/12/22 01/12/22 01/12/22 05:21 05:21 05:21 WBC Hgb 11.8 L Hct 40.9 L MCH 24.5 L MCHC 28.9 L RDW 17.9 H Neut % (Auto) 92.8 H Lymph % (Auto) 4.7 L [place] % (Auto) Eos % (Auto) Lymph # (Auto) 0.3 L Absolute Neuts (auto) VBG HCO3 Potassium Chloride 94 L Carbon Dioxide 34 H Anion Gap BUN 36 H POC Glucose Random Glucose Fasting Glucose 434 H* D Lactic Acid Lactic Acid F/U @ 2Hr Lactic Acid F/U @ 4Hr Ammonia B-Natriuretic Peptide 166 H Total Protein Albumin Valproic Acid IgE 01/12/22 01/12/22 01/12/22 07:28 11:03 15:58 WBC Hgb Hct MCH MCHC RDW Neut % (Auto) Lymph % (Auto) [place] % (Auto) Eos % (Auto) Lymph # (Auto) Absolute Neuts (auto) VBG HCO3 Potassium Chloride Carbon Dioxide Anion Gap BUN POC Glucose 356 H* 370 H* 349 H Random Glucose Fasting Glucose Lactic Acid Lactic Acid F/U @ 2Hr Lactic Acid F/U @ 4Hr Ammonia B-Natriuretic Peptide Total Protein Albumin Valproic Acid IgE 01/12/22 01/13/22 01/13/22 20:10 06:01 06:01 WBC Hgb 12.5 L Hct MCH 24.4 L MCHC 29.2 L RDW 17.2 H Neut % (Auto) 88.2 H Lymph % (Auto) 7.8 L [place] % (Auto) Eos % (Auto) Lymph # (Auto) 0.5 L Absolute Neuts (auto) VBG HCO3 Potassium Chloride 93 L Carbon Dioxide 40 H* Anion Gap BUN 29 H POC Glucose 431 H* Random Glucose Fasting Glucose 384 H* Lactic Acid Lactic Acid F/U @ 2Hr Lactic Acid F/U @ 4Hr Ammonia B-Natriuretic Peptide Total Protein Albumin Valproic Acid IgE 01/13/22 01/13/22 01/13/22 06:01 07:26 11:26 WBC Hgb Hct MCH MCHC RDW Neut % (Auto) Lymph % (Auto) [place] % (Auto) Eos % (Auto) Lymph # (Auto) Absolute Neuts (auto) VBG HCO3 Potassium Chloride Carbon Dioxide Anion Gap BUN POC Glucose 393 H* 398 H* Random Glucose Fasting Glucose Lactic Acid Lactic Acid F/U @ 2Hr Lactic Acid F/U @ 4Hr Ammonia B-Natriuretic Peptide 142 H Total Protein Albumin Valproic Acid IgE 01/13/22 01/13/22 01/14/22 15:12 18:57 07:17 WBC Hgb Hct MCH MCHC RDW Neut % (Auto) Lymph % (Auto) [place] % (Auto) Eos % (Auto) Lymph # (Auto) Absolute Neuts (auto) VBG HCO3 Potassium Chloride Carbon Dioxide Anion Gap BUN POC Glucose 437 H* 267 H 229 H Random Glucose Fasting Glucose Lactic Acid Lactic Acid F/U @ 2Hr Lactic Acid F/U @ 4Hr Ammonia B-Natriuretic Peptide Total Protein Albumin Valproic Acid IgE 01/14/22 01/14/22 01/14/22 11:28 15:14 19:03 WBC Hgb Hct MCH MCHC RDW Neut % (Auto) Lymph % (Auto) [place] % (Auto) Eos % (Auto) Lymph # (Auto) Absolute Neuts (auto) VBG HCO3 Potassium Chloride Carbon Dioxide Anion Gap BUN POC Glucose 184 H 149 H 290 H Random Glucose Fasting Glucose Lactic Acid Lactic Acid F/U @ 2Hr Lactic Acid F/U @ 4Hr Ammonia B-Natriuretic Peptide Total Protein Albumin Valproic Acid IgE 01/15/22 01/15/22 01/15/22 07:13 09:07 09:07 WBC 4.0 L Hgb 12.9 L Hct MCH 23.7 L MCHC 28.9 L RDW 17.4 H Neut % (Auto) 39.3 L Lymph % (Auto) 43.1 H [place] % (Auto) 14.5 H Eos % (Auto) Lymph # (Auto) Absolute Neuts (auto) 1.6 L VBG HCO3 Potassium 5.5 H Chloride 93 L Carbon Dioxide 34 H Anion Gap BUN 21 H POC Glucose 130 H Random Glucose Fasting Glucose 139 H D Lactic Acid Lactic Acid F/U @ 2Hr Lactic Acid F/U @ 4Hr Ammonia B-Natriuretic Peptide Total Protein 6.4 L Albumin 3.3 L Valproic Acid IgE 01/15/22 01/15/22 01/15/22 11:04 15:33 20:05 WBC Hgb Hct MCH MCHC RDW Neut % (Auto) Lymph % (Auto) [place] % (Auto) Eos % (Auto) Lymph # (Auto) Absolute Neuts (auto) VBG HCO3 Potassium Chloride Carbon Dioxide Anion Gap BUN POC Glucose 213 H 159 H 170 H Random Glucose Fasting Glucose Lactic Acid Lactic Acid F/U @ 2Hr Lactic Acid F/U @ 4Hr Ammonia B-Natriuretic Peptide Total Protein Albumin Valproic Acid IgE 01/16/22 01/16/22 01/16/22 05:35 05:35 07:06 WBC 3.1 L Hgb 11.3 L Hct 38.9 L MCH 24.2 L MCHC 29.0 L RDW 17.4 H Neut % (Auto) 37.3 L Lymph % (Auto) 40.1 H [place] % (Auto) 16.6 H Eos % (Auto) 5.7 H Lymph # (Auto) Absolute Neuts (auto) 1.2 L VBG HCO3 Potassium Chloride 95 L Carbon Dioxide 37 H Anion Gap 10 L BUN 22 H POC Glucose 234 H Random Glucose Fasting Glucose 178 H Lactic Acid Lactic Acid F/U @ 2Hr Lactic Acid F/U @ 4Hr Ammonia B-Natriuretic Peptide Total Protein 5.5 L Albumin 3.0 L Valproic Acid IgE 01/16/22 01/16/22 01/16/22 11:15 15:38 19:19 WBC Hgb Hct MCH MCHC RDW Neut % (Auto) Lymph % (Auto) [place] % (Auto) Eos % (Auto) Lymph # (Auto) Absolute Neuts (auto) VBG HCO3 Potassium Chloride Carbon Dioxide Anion Gap BUN POC Glucose 173 H 191 H 180 H Random Glucose Fasting Glucose Lactic Acid Lactic Acid F/U @ 2Hr Lactic Acid F/U @ 4Hr Ammonia B-Natriuretic Peptide Total Protein Albumin Valproic Acid IgE 01/17/22 01/17/22 01/17/22 07:16 11:17 15:42 WBC Hgb Hct MCH MCHC RDW Neut % (Auto) Lymph % (Auto) [place] % (Auto) Eos % (Auto) Lymph # (Auto) Absolute Neuts (auto) VBG HCO3 Potassium Chloride Carbon Dioxide Anion Gap BUN POC Glucose 154 H 163 H 185 H Random Glucose Fasting Glucose Lactic Acid Lactic Acid F/U @ 2Hr Lactic Acid F/U @ 4Hr Ammonia B-Natriuretic Peptide Total Protein Albumin Valproic Acid IgE 01/17/22 01/18/22 01/18/22 20:01 07:17 15:56 WBC Hgb Hct MCH MCHC RDW Neut % (Auto) Lymph % (Auto) [place] % (Auto) Eos % (Auto) Lymph # (Auto) Absolute Neuts (auto) VBG HCO3 Potassium Chloride Carbon Dioxide Anion Gap BUN POC Glucose 179 H 208 H 119 H Random Glucose Fasting Glucose Lactic Acid Lactic Acid F/U @ 2Hr Lactic Acid F/U @ 4Hr Ammonia B-Natriuretic Peptide Total Protein Albumin Valproic Acid IgE 01/18/22 01/19/22 01/19/22 20:27 07:43 11:18 WBC Hgb Hct MCH MCHC RDW Neut % (Auto) Lymph % (Auto) [place] % (Auto) Eos % (Auto) Lymph # (Auto) Absolute Neuts (auto) VBG HCO3 Potassium Chloride Carbon Dioxide Anion Gap BUN POC Glucose 130 H 150 H 223 H Random Glucose Fasting Glucose Lactic Acid Lactic Acid F/U @ 2Hr Lactic Acid F/U @ 4Hr Ammonia B-Natriuretic Peptide Total Protein Albumin Valproic Acid IgE 01/19/22 01/19/22 01/20/22 16:01 20:02 14:35 WBC Hgb Hct MCH MCHC RDW Neut % (Auto) Lymph % (Auto) [place] % (Auto) Eos % (Auto) Lymph # (Auto) Absolute Neuts (auto) VBG HCO3 Potassium Chloride Carbon Dioxide Anion Gap BUN POC Glucose 223 H 126 H Random Glucose Fasting Glucose Lactic Acid Lactic Acid F/U @ 2Hr Lactic Acid F/U @ 4Hr Ammonia 59 H B-Natriuretic Peptide Total Protein Albumin Valproic Acid IgE 01/20/22 01/20/22 01/20/22 14:35 15:10 19:24 WBC Hgb Hct MCH MCHC RDW Neut % (Auto) Lymph % (Auto) [place] % (Auto) Eos % (Auto) Lymph # (Auto) Absolute Neuts (auto) VBG HCO3 Potassium Chloride Carbon Dioxide Anion Gap BUN POC Glucose 213 H 155 H Random Glucose Fasting Glucose Lactic Acid Lactic Acid F/U @ 2Hr Lactic Acid F/U @ 4Hr Ammonia B-Natriuretic Peptide Total Protein Albumin Valproic Acid 23.2 L IgE 01/21/22 01/21/22 01/21/22 07:22 12:35 20:15 WBC Hgb Hct MCH MCHC RDW Neut % (Auto) Lymph % (Auto) [place] % (Auto) Eos % (Auto) Lymph # (Auto) Absolute Neuts (auto) VBG HCO3 Potassium Chloride Carbon Dioxide Anion Gap BUN POC Glucose 128 H 203 H 188 H Random Glucose Fasting Glucose Lactic Acid Lactic Acid F/U @ 2Hr Lactic Acid F/U @ 4Hr Ammonia B-Natriuretic Peptide Total Protein Albumin Valproic Acid IgE 01/22/22 01/22/22 01/22/22 07:30 11:10 15:43 WBC Hgb Hct MCH MCHC RDW Neut % (Auto) Lymph % (Auto) [place] % (Auto) Eos % (Auto) Lymph # (Auto) Absolute Neuts (auto) VBG HCO3 Potassium Chloride Carbon Dioxide Anion Gap BUN POC Glucose 129 H 225 H 146 H Random Glucose Fasting Glucose Lactic Acid Lactic Acid F/U @ 2Hr Lactic Acid F/U @ 4Hr Ammonia B-Natriuretic Peptide Total Protein Albumin Valproic Acid IgE 01/22/22 01/23/22 01/23/22 19:23 10:57 15:58 WBC Hgb Hct MCH MCHC RDW Neut % (Auto) Lymph % (Auto) [place] % (Auto) Eos % (Auto) Lymph # (Auto) Absolute Neuts (auto) VBG HCO3 Potassium Chloride Carbon Dioxide Anion Gap BUN POC Glucose 216 H 155 H 204 H Random Glucose Fasting Glucose Lactic Acid Lactic Acid F/U @ 2Hr Lactic Acid F/U @ 4Hr Ammonia B-Natriuretic Peptide Total Protein Albumin Valproic Acid IgE 01/23/22 01/24/22 01/24/22 20:07 10:54 15:19 WBC Hgb Hct MCH MCHC RDW Neut % (Auto) Lymph % (Auto) [place] % (Auto) Eos % (Auto) Lymph # (Auto) Absolute Neuts (auto) VBG HCO3 Potassium Chloride Carbon Dioxide Anion Gap BUN POC Glucose 146 H 155 H 139 H Random Glucose Fasting Glucose Lactic Acid Lactic Acid F/U @ 2Hr Lactic Acid F/U @ 4Hr Ammonia B-Natriuretic Peptide Total Protein Albumin Valproic Acid IgE 01/24/22 01/25/22 01/25/22 19:35 07:17 20:15 WBC Hgb Hct MCH MCHC RDW Neut % (Auto) Lymph % (Auto) [place] % (Auto) Eos % (Auto) Lymph # (Auto) Absolute Neuts (auto) VBG HCO3 Potassium Chloride Carbon Dioxide Anion Gap BUN POC Glucose 207 H 230 H 189 H Random Glucose Fasting Glucose Lactic Acid Lactic Acid F/U @ 2Hr Lactic Acid F/U @ 4Hr Ammonia B-Natriuretic Peptide Total Protein Albumin Valproic Acid IgE 01/26/22 01/26/22 01/26/22 07:06 11:49 15:42 WBC Hgb Hct MCH MCHC RDW Neut % (Auto) Lymph % (Auto) [place] % (Auto) Eos % (Auto) Lymph # (Auto) Absolute Neuts (auto) VBG HCO3 Potassium Chloride Carbon Dioxide Anion Gap BUN POC Glucose 137 H 228 H 119 H Random Glucose Fasting Glucose Lactic Acid Lactic Acid F/U @ 2Hr Lactic Acid F/U @ 4Hr Ammonia B-Natriuretic Peptide Total Protein Albumin Valproic Acid IgE 01/26/22 01/27/22 01/27/22 19:21 07:39 11:42 WBC Hgb Hct MCH MCHC RDW Neut % (Auto) Lymph % (Auto) [place] % (Auto) Eos % (Auto) Lymph # (Auto) Absolute Neuts (auto) VBG HCO3 Potassium Chloride Carbon Dioxide Anion Gap BUN POC Glucose 207 H 151 H 207 H Random Glucose Fasting Glucose Lactic Acid Lactic Acid F/U @ 2Hr Lactic Acid F/U @ 4Hr Ammonia B-Natriuretic Peptide Total Protein Albumin Valproic Acid IgE 01/27/22 01/28/22 01/28/22 16:17 07:37 11:00 WBC Hgb Hct MCH MCHC RDW Neut % (Auto) Lymph % (Auto) [place] % (Auto) Eos % (Auto) Lymph # (Auto) Absolute Neuts (auto) VBG HCO3 Potassium Chloride Carbon Dioxide Anion Gap BUN POC Glucose 211 H 232 H 150 H Random Glucose Fasting Glucose Lactic Acid Lactic Acid F/U @ 2Hr Lactic Acid F/U @ 4Hr Ammonia B-Natriuretic Peptide Total Protein Albumin Valproic Acid IgE 01/28/22 01/28/22 01/29/22 16:26 20:18 07:09 WBC Hgb Hct MCH MCHC RDW Neut % (Auto) Lymph % (Auto) [place] % (Auto) Eos % (Auto) Lymph # (Auto) Absolute Neuts (auto) VBG HCO3 Potassium Chloride Carbon Dioxide Anion Gap BUN POC Glucose 201 H 232 H 167 H Random Glucose Fasting Glucose Lactic Acid Lactic Acid F/U @ 2Hr Lactic Acid F/U @ 4Hr Ammonia B-Natriuretic Peptide Total Protein Albumin Valproic Acid IgE 01/29/22 01/29/22 01/29/22 11:13 15:37 19:42 WBC Hgb Hct MCH MCHC RDW Neut % (Auto) Lymph % (Auto) [place] % (Auto) Eos % (Auto) Lymph # (Auto) Absolute Neuts (auto) VBG HCO3 Potassium Chloride Carbon Dioxide Anion Gap BUN POC Glucose 198 H 166 H 183 H Random Glucose Fasting Glucose Lactic Acid Lactic Acid F/U @ 2Hr Lactic Acid F/U @ 4Hr Ammonia B-Natriuretic Peptide Total Protein Albumin Valproic Acid IgE 01/30/22 01/30/22 01/30/22 07:32 12:06 15:22 WBC Hgb Hct MCH MCHC RDW Neut % (Auto) Lymph % (Auto) [place] % (Auto) Eos % (Auto) Lymph # (Auto) Absolute Neuts (auto) VBG HCO3 Potassium Chloride Carbon Dioxide Anion Gap BUN POC Glucose 156 H 178 H 152 H Random Glucose Fasting Glucose Lactic Acid Lactic Acid F/U @ 2Hr Lactic Acid F/U @ 4Hr Ammonia B-Natriuretic Peptide Total Protein Albumin Valproic Acid IgE 01/30/22 01/31/22 01/31/22 20:46 07:42 16:38 WBC Hgb Hct MCH MCHC RDW Neut % (Auto) Lymph % (Auto) [place] % (Auto) Eos % (Auto) Lymph # (Auto) Absolute Neuts (auto) VBG HCO3 Potassium Chloride Carbon Dioxide Anion Gap BUN POC Glucose 179 H 173 H 222 H Random Glucose Fasting Glucose Lactic Acid Lactic Acid F/U @ 2Hr Lactic Acid F/U @ 4Hr Ammonia B-Natriuretic Peptide Total Protein Albumin Valproic Acid IgE 01/31/22 02/01/22 02/01/22 19:22 11:38 19:40 WBC Hgb Hct MCH MCHC RDW Neut % (Auto) Lymph % (Auto) [place] % (Auto) Eos % (Auto) Lymph # (Auto) Absolute Neuts (auto) VBG HCO3 Potassium Chloride Carbon Dioxide Anion Gap BUN POC Glucose 170 H 298 H 187 H Random Glucose Fasting Glucose Lactic Acid Lactic Acid F/U @ 2Hr Lactic Acid F/U @ 4Hr Ammonia B-Natriuretic Peptide Total Protein Albumin Valproic Acid IgE 02/02/22 02/02/22 02/02/22 09:12 16:29 20:07 WBC Hgb Hct MCH MCHC RDW Neut % (Auto) Lymph % (Auto) [place] % (Auto) Eos % (Auto) Lymph # (Auto) Absolute Neuts (auto) VBG HCO3 Potassium Chloride Carbon Dioxide Anion Gap BUN POC Glucose 181 H 173 H 158 H Random Glucose Fasting Glucose Lactic Acid Lactic Acid F/U @ 2Hr Lactic Acid F/U @ 4Hr Ammonia B-Natriuretic Peptide Total Protein Albumin Valproic Acid IgE 02/03/22 02/03/22 02/03/22 11:06 16:31 19:42 WBC Hgb Hct MCH MCHC RDW Neut % (Auto) Lymph % (Auto) [place] % (Auto) Eos % (Auto) Lymph # (Auto) Absolute Neuts (auto) VBG HCO3 Potassium Chloride Carbon Dioxide Anion Gap BUN POC Glucose 245 H 119 H 184 H Random Glucose Fasting Glucose Lactic Acid Lactic Acid F/U @ 2Hr Lactic Acid F/U @ 4Hr Ammonia B-Natriuretic Peptide Total Protein Albumin Valproic Acid IgE 02/04/22 02/04/22 02/04/22 07:13 12:11 15:10 WBC Hgb Hct MCH MCHC RDW Neut % (Auto) Lymph % (Auto) [place] % (Auto) Eos % (Auto) Lymph # (Auto) Absolute Neuts (auto) VBG HCO3 Potassium Chloride Carbon Dioxide Anion Gap BUN POC Glucose 201 H 185 H 126 H Random Glucose Fasting Glucose Lactic Acid Lactic Acid F/U @ 2Hr Lactic Acid F/U @ 4Hr Ammonia B-Natriuretic Peptide Total Protein Albumin Valproic Acid IgE 02/04/22 02/04/22 02/05/22 15:53 19:04 07:20 WBC Hgb Hct MCH MCHC RDW Neut % (Auto) Lymph % (Auto) [place] % (Auto) Eos % (Auto) Lymph # (Auto) Absolute Neuts (auto) VBG HCO3 Potassium 5.6 H Chloride Carbon Dioxide Anion Gap BUN 24 H POC Glucose 209 H 151 H Random Glucose 169 H D Fasting Glucose Lactic Acid Lactic Acid F/U @ 2Hr Lactic Acid F/U @ 4Hr Ammonia B-Natriuretic Peptide Total Protein Albumin Valproic Acid IgE 02/05/22 02/05/22 02/06/22 11:17 15:42 07:10 WBC Hgb Hct MCH MCHC RDW Neut % (Auto) Lymph % (Auto) [place] % (Auto) Eos % (Auto) Lymph # (Auto) Absolute Neuts (auto) VBG HCO3 Potassium Chloride Carbon Dioxide Anion Gap BUN POC Glucose 160 H 167 H 139 H Random Glucose Fasting Glucose Lactic Acid Lactic Acid F/U @ 2Hr Lactic Acid F/U @ 4Hr Ammonia B-Natriuretic Peptide Total Protein Albumin Valproic Acid IgE 02/06/22 02/06/22 02/06/22 11:02 16:13 20:30 WBC Hgb Hct MCH MCHC RDW Neut % (Auto) Lymph % (Auto) [place] % (Auto) Eos % (Auto) Lymph # (Auto) Absolute Neuts (auto) VBG HCO3 Potassium Chloride Carbon Dioxide Anion Gap BUN POC Glucose 180 H 153 H 169 H Random Glucose Fasting Glucose Lactic Acid Lactic Acid F/U @ 2Hr Lactic Acid F/U @ 4Hr Ammonia B-Natriuretic Peptide Total Protein Albumin Valproic Acid IgE 02/07/22 02/07/22 02/07/22 07:20 11:01 15:49 WBC Hgb Hct MCH MCHC RDW Neut % (Auto) Lymph % (Auto) [place] % (Auto) Eos % (Auto) Lymph # (Auto) Absolute Neuts (auto) VBG HCO3 Potassium Chloride Carbon Dioxide Anion Gap BUN POC Glucose 248 H 120 H 184 H Random Glucose Fasting Glucose Lactic Acid Lactic Acid F/U @ 2Hr Lactic Acid F/U @ 4Hr Ammonia B-Natriuretic Peptide Total Protein Albumin Valproic Acid IgE 02/07/22 02/08/22 02/08/22 20:16 11:11 15:33 WBC Hgb Hct MCH MCHC RDW Neut % (Auto) Lymph % (Auto) [place] % (Auto) Eos % (Auto) Lymph # (Auto) Absolute Neuts (auto) VBG HCO3 Potassium Chloride Carbon Dioxide Anion Gap BUN POC Glucose 140 H 197 H 152 H Random Glucose Fasting Glucose Lactic Acid Lactic Acid F/U @ 2Hr Lactic Acid F/U @ 4Hr Ammonia B-Natriuretic Peptide Total Protein Albumin Valproic Acid IgE 02/08/22 02/09/22 02/09/22 19:23 11:36 15:12 WBC Hgb Hct MCH MCHC RDW Neut % (Auto) Lymph % (Auto) [place] % (Auto) Eos % (Auto) Lymph # (Auto) Absolute Neuts (auto) VBG HCO3 Potassium Chloride Carbon Dioxide Anion Gap BUN POC Glucose 159 H 122 H 165 H Random Glucose Fasting Glucose Lactic Acid Lactic Acid F/U @ 2Hr Lactic Acid F/U @ 4Hr Ammonia B-Natriuretic Peptide Total Protein Albumin Valproic Acid IgE 02/09/22 02/10/22 02/10/22 19:13 07:08 11:11 WBC Hgb Hct MCH MCHC RDW Neut % (Auto) Lymph % (Auto) [place] % (Auto) Eos % (Auto) Lymph # (Auto) Absolute Neuts (auto) VBG HCO3 Potassium Chloride Carbon Dioxide Anion Gap BUN POC Glucose 172 H 158 H 189 H Random Glucose Fasting Glucose Lactic Acid Lactic Acid F/U @ 2Hr Lactic Acid F/U @ 4Hr Ammonia B-Natriuretic Peptide Total Protein Albumin Valproic Acid IgE 02/10/22 02/10/22 02/11/22 15:54 19:35 07:20 WBC Hgb Hct MCH MCHC RDW Neut % (Auto) Lymph % (Auto) [place] % (Auto) Eos % (Auto) Lymph # (Auto) Absolute Neuts (auto) VBG HCO3 Potassium Chloride Carbon Dioxide Anion Gap BUN POC Glucose 235 H 192 H 136 H Random Glucose Fasting Glucose Lactic Acid Lactic Acid F/U @ 2Hr Lactic Acid F/U @ 4Hr Ammonia B-Natriuretic Peptide Total Protein Albumin Valproic Acid IgE 02/11/22 02/11/22 02/11/22 11:08 16:25 20:15 WBC Hgb Hct MCH MCHC RDW Neut % (Auto) Lymph % (Auto) [place] % (Auto) Eos % (Auto) Lymph # (Auto) Absolute Neuts (auto) VBG HCO3 Potassium Chloride Carbon Dioxide Anion Gap BUN POC Glucose 184 H 224 H 168 H Random Glucose Fasting Glucose Lactic Acid Lactic Acid F/U @ 2Hr Lactic Acid F/U @ 4Hr Ammonia B-Natriuretic Peptide Total Protein Albumin Valproic Acid IgE 02/12/22 02/12/22 02/12/22 07:12 11:41 15:24 WBC Hgb Hct MCH MCHC RDW Neut % (Auto) Lymph % (Auto) [place] % (Auto) Eos % (Auto) Lymph # (Auto) Absolute Neuts (auto) VBG HCO3 Potassium Chloride Carbon Dioxide Anion Gap BUN POC Glucose 170 H 125 H 187 H Random Glucose Fasting Glucose Lactic Acid Lactic Acid F/U @ 2Hr Lactic Acid F/U @ 4Hr Ammonia B-Natriuretic Peptide Total Protein Albumin Valproic Acid IgE 02/12/22 02/13/22 02/13/22 20:05 07:15 11:15 WBC Hgb Hct MCH MCHC RDW Neut % (Auto) Lymph % (Auto) [place] % (Auto) Eos % (Auto) Lymph # (Auto) Absolute Neuts (auto) VBG HCO3 Potassium Chloride Carbon Dioxide Anion Gap BUN POC Glucose 152 H 141 H 162 H Random Glucose Fasting Glucose Lactic Acid Lactic Acid F/U @ 2Hr Lactic Acid F/U @ 4Hr Ammonia B-Natriuretic Peptide Total Protein Albumin Valproic Acid IgE 02/13/22 02/13/22 02/14/22 15:14 20:10 07:12 WBC Hgb Hct MCH MCHC RDW Neut % (Auto) Lymph % (Auto) [place] % (Auto) Eos % (Auto) Lymph # (Auto) Absolute Neuts (auto) VBG HCO3 Potassium Chloride Carbon Dioxide Anion Gap BUN POC Glucose 146 H 185 H 169 H Random Glucose Fasting Glucose Lactic Acid Lactic Acid F/U @ 2Hr Lactic Acid F/U @ 4Hr Ammonia B-Natriuretic Peptide Total Protein Albumin Valproic Acid IgE 02/14/22 02/14/22 02/14/22 11:23 15:46 19:29 WBC Hgb Hct MCH MCHC RDW Neut % (Auto) Lymph % (Auto) [place] % (Auto) Eos % (Auto) Lymph # (Auto) Absolute Neuts (auto) VBG HCO3 Potassium Chloride Carbon Dioxide Anion Gap BUN POC Glucose 156 H 141 H 164 H Random Glucose Fasting Glucose Lactic Acid Lactic Acid F/U @ 2Hr Lactic Acid F/U @ 4Hr Ammonia B-Natriuretic Peptide Total Protein Albumin Valproic Acid IgE 02/15/22 02/15/22 02/15/22 07:23 15:38 19:40 WBC Hgb Hct MCH MCHC RDW Neut % (Auto) Lymph % (Auto) [place] % (Auto) Eos % (Auto) Lymph # (Auto) Absolute Neuts (auto) VBG HCO3 Potassium Chloride Carbon Dioxide Anion Gap BUN POC Glucose 170 H 151 H 138 H Random Glucose Fasting Glucose Lactic Acid Lactic Acid F/U @ 2Hr Lactic Acid F/U @ 4Hr Ammonia B-Natriuretic Peptide Total Protein Albumin Valproic Acid IgE 02/16/22 02/16/22 02/16/22 07:20 11:18 15:43 WBC Hgb Hct MCH MCHC RDW Neut % (Auto) Lymph % (Auto) [place] % (Auto) Eos % (Auto) Lymph # (Auto) Absolute Neuts (auto) VBG HCO3 Potassium Chloride Carbon Dioxide Anion Gap BUN POC Glucose 131 H 222 H 120 H Random Glucose Fasting Glucose Lactic Acid Lactic Acid F/U @ 2Hr Lactic Acid F/U @ 4Hr Ammonia B-Natriuretic Peptide Total Protein Albumin Valproic Acid IgE 02/16/22 02/17/22 02/18/22 20:22 07:18 07:00 WBC Hgb Hct MCH MCHC RDW Neut % (Auto) Lymph % (Auto) [place] % (Auto) Eos % (Auto) Lymph # (Auto) Absolute Neuts (auto) VBG HCO3 Potassium Chloride Carbon Dioxide Anion Gap BUN POC Glucose 134 H 153 H 182 H Random Glucose Fasting Glucose Lactic Acid Lactic Acid F/U @ 2Hr Lactic Acid F/U @ 4Hr Ammonia B-Natriuretic Peptide Total Protein Albumin Valproic Acid IgE 02/18/22 02/18/22 02/18/22 11:20 15:26 20:28 WBC Hgb Hct MCH MCHC RDW Neut % (Auto) Lymph % (Auto) [place] % (Auto) Eos % (Auto) Lymph # (Auto) Absolute Neuts (auto) VBG HCO3 Potassium Chloride Carbon Dioxide Anion Gap BUN POC Glucose 140 H 137 H 240 H Random Glucose Fasting Glucose Lactic Acid Lactic Acid F/U @ 2Hr Lactic Acid F/U @ 4Hr Ammonia B-Natriuretic Peptide Total Protein Albumin Valproic Acid IgE 02/19/22 02/19/22 02/19/22 07:26 16:26 20:18 WBC Hgb Hct MCH MCHC RDW Neut % (Auto) Lymph % (Auto) [place] % (Auto) Eos % (Auto) Lymph # (Auto) Absolute Neuts (auto) VBG HCO3 Potassium Chloride Carbon Dioxide Anion Gap BUN POC Glucose 116 H 181 H 125 H Random Glucose Fasting Glucose Lactic Acid Lactic Acid F/U @ 2Hr Lactic Acid F/U @ 4Hr Ammonia B-Natriuretic Peptide Total Protein Albumin Valproic Acid IgE 02/20/22 02/20/22 02/21/22 07:04 20:04 07:21 WBC Hgb Hct MCH MCHC RDW Neut % (Auto) Lymph % (Auto) [place] % (Auto) Eos % (Auto) Lymph # (Auto) Absolute Neuts (auto) VBG HCO3 Potassium Chloride Carbon Dioxide Anion Gap BUN POC Glucose 160 H 159 H 159 H Random Glucose Fasting Glucose Lactic Acid Lactic Acid F/U @ 2Hr Lactic Acid F/U @ 4Hr Ammonia B-Natriuretic Peptide Total Protein Albumin Valproic Acid IgE 02/21/22 02/21/22 02/22/22 17:17 20:02 07:30 WBC Hgb Hct MCH MCHC RDW Neut % (Auto) Lymph % (Auto) [place] % (Auto) Eos % (Auto) Lymph # (Auto) Absolute Neuts (auto) VBG HCO3 Potassium Chloride Carbon Dioxide Anion Gap BUN POC Glucose 132 H 138 H 152 H Random Glucose Fasting Glucose Lactic Acid Lactic Acid F/U @ 2Hr Lactic Acid F/U @ 4Hr Ammonia B-Natriuretic Peptide Total Protein Albumin Valproic Acid IgE 02/22/22 02/22/22 02/22/22 11:15 16:10 20:00 WBC Hgb Hct MCH MCHC RDW Neut % (Auto) Lymph % (Auto) [place] % (Auto) Eos % (Auto) Lymph # (Auto) Absolute Neuts (auto) VBG HCO3 Potassium Chloride Carbon Dioxide Anion Gap BUN POC Glucose 165 H 160 H 150 H Random Glucose Fasting Glucose Lactic Acid Lactic Acid F/U @ 2Hr Lactic Acid F/U @ 4Hr Ammonia B-Natriuretic Peptide Total Protein Albumin Valproic Acid IgE 02/23/22 02/23/22 02/24/22 07:32 15:26 07:30 WBC Hgb Hct MCH MCHC RDW Neut % (Auto) Lymph % (Auto) [place] % (Auto) Eos % (Auto) Lymph # (Auto) Absolute Neuts (auto) VBG HCO3 Potassium Chloride Carbon Dioxide Anion Gap BUN POC Glucose 147 H 218 H 156 H Random Glucose Fasting Glucose Lactic Acid Lactic Acid F/U @ 2Hr Lactic Acid F/U @ 4Hr Ammonia B-Natriuretic Peptide Total Protein Albumin Valproic Acid IgE 02/24/22 02/24/22 02/25/22 16:34 20:13 07:23 WBC Hgb Hct MCH MCHC RDW Neut % (Auto) Lymph % (Auto) [place] % (Auto) Eos % (Auto) Lymph # (Auto) Absolute Neuts (auto) VBG HCO3 Potassium Chloride Carbon Dioxide Anion Gap BUN POC Glucose 116 H 177 H 149 H Random Glucose Fasting Glucose Lactic Acid Lactic Acid F/U @ 2Hr Lactic Acid F/U @ 4Hr Ammonia B-Natriuretic Peptide Total Protein Albumin Valproic Acid IgE 02/25/22 02/25/22 02/26/22 15:55 20:01 07:37 WBC Hgb Hct MCH MCHC RDW Neut % (Auto) Lymph % (Auto) [place] % (Auto) Eos % (Auto) Lymph # (Auto) Absolute Neuts (auto) VBG HCO3 Potassium Chloride Carbon Dioxide Anion Gap BUN POC Glucose 160 H 185 H 158 H Random Glucose Fasting Glucose Lactic Acid Lactic Acid F/U @ 2Hr Lactic Acid F/U @ 4Hr Ammonia B-Natriuretic Peptide Total Protein Albumin Valproic Acid IgE 02/26/22 02/26/22 02/27/22 15:45 20:00 07:18 WBC Hgb Hct MCH MCHC RDW Neut % (Auto) Lymph % (Auto) [place] % (Auto) Eos % (Auto) Lymph # (Auto) Absolute Neuts (auto) VBG HCO3 Potassium Chloride Carbon Dioxide Anion Gap BUN POC Glucose 157 H 174 H 128 H Random Glucose Fasting Glucose Lactic Acid Lactic Acid F/U @ 2Hr Lactic Acid F/U @ 4Hr Ammonia B-Natriuretic Peptide Total Protein Albumin Valproic Acid IgE 02/27/22 02/27/22 02/27/22 11:04 16:08 20:30 WBC Hgb Hct MCH MCHC RDW Neut % (Auto) Lymph % (Auto) [place] % (Auto) Eos % (Auto) Lymph # (Auto) Absolute Neuts (auto) VBG HCO3 Potassium Chloride Carbon Dioxide Anion Gap BUN POC Glucose 176 H 215 H 144 H Random Glucose Fasting Glucose Lactic Acid Lactic Acid F/U @ 2Hr Lactic Acid F/U @ 4Hr Ammonia B-Natriuretic Peptide Total Protein Albumin Valproic Acid IgE 02/28/22 02/28/22 02/28/22 07:13 11:20 15:54 WBC Hgb Hct MCH MCHC RDW Neut % (Auto) Lymph % (Auto) [place] % (Auto) Eos % (Auto) Lymph # (Auto) Absolute Neuts (auto) VBG HCO3 Potassium Chloride Carbon Dioxide Anion Gap BUN POC Glucose 132 H 162 H 133 H Random Glucose Fasting Glucose Lactic Acid Lactic Acid F/U @ 2Hr Lactic Acid F/U @ 4Hr Ammonia B-Natriuretic Peptide Total Protein Albumin Valproic Acid IgE 03/01/22 03/01/22 03/01/22 07:27 11:39 16:11 WBC Hgb Hct MCH MCHC RDW Neut % (Auto) Lymph % (Auto) [place] % (Auto) Eos % (Auto) Lymph # (Auto) Absolute Neuts (auto) VBG HCO3 Potassium Chloride Carbon Dioxide Anion Gap BUN POC Glucose 125 H 135 H 163 H Random Glucose Fasting Glucose Lactic Acid Lactic Acid F/U @ 2Hr Lactic Acid F/U @ 4Hr Ammonia B-Natriuretic Peptide Total Protein Albumin Valproic Acid IgE 03/01/22 03/02/22 03/02/22 20:23 07:35 11:35 WBC Hgb Hct MCH MCHC RDW Neut % (Auto) Lymph % (Auto) [place] % (Auto) Eos % (Auto) Lymph # (Auto) Absolute Neuts (auto) VBG HCO3 Potassium Chloride Carbon Dioxide Anion Gap BUN POC Glucose 268 H 145 H 221 H Random Glucose Fasting Glucose Lactic Acid Lactic Acid F/U @ 2Hr Lactic Acid F/U @ 4Hr Ammonia B-Natriuretic Peptide Total Protein Albumin Valproic Acid IgE 03/02/22 03/02/22 03/03/22 17:06 19:30 07:12 WBC Hgb Hct MCH MCHC RDW Neut % (Auto) Lymph % (Auto) [place] % (Auto) Eos % (Auto) Lymph # (Auto) Absolute Neuts (auto) VBG HCO3 Potassium Chloride Carbon Dioxide Anion Gap BUN POC Glucose 172 H 166 H 135 H Random Glucose Fasting Glucose Lactic Acid Lactic Acid F/U @ 2Hr Lactic Acid F/U @ 4Hr Ammonia B-Natriuretic Peptide Total Protein Albumin Valproic Acid IgE 03/03/22 03/03/22 03/03/22 11:19 15:36 19:34 WBC Hgb Hct MCH MCHC RDW Neut % (Auto) Lymph % (Auto) [place] % (Auto) Eos % (Auto) Lymph # (Auto) Absolute Neuts (auto) VBG HCO3 Potassium Chloride Carbon Dioxide Anion Gap BUN POC Glucose 117 H 120 H 162 H Random Glucose Fasting Glucose Lactic Acid Lactic Acid F/U @ 2Hr Lactic Acid F/U @ 4Hr Ammonia B-Natriuretic Peptide Total Protein Albumin Valproic Acid IgE 03/04/22 03/04/22 03/04/22 07:07 10:55 15:43 WBC Hgb Hct MCH MCHC RDW Neut % (Auto) Lymph % (Auto) [place] % (Auto) Eos % (Auto) Lymph # (Auto) Absolute Neuts (auto) VBG HCO3 Potassium Chloride Carbon Dioxide Anion Gap BUN POC Glucose 146 H 178 H 142 H Random Glucose Fasting Glucose Lactic Acid Lactic Acid F/U @ 2Hr Lactic Acid F/U @ 4Hr Ammonia B-Natriuretic Peptide Total Protein Albumin Valproic Acid IgE 03/04/22 03/05/22 03/05/22 19:45 07:56 11:11 WBC Hgb Hct MCH MCHC RDW Neut % (Auto) Lymph % (Auto) [place] % (Auto) Eos % (Auto) Lymph # (Auto) Absolute Neuts (auto) VBG HCO3 Potassium Chloride Carbon Dioxide Anion Gap BUN POC Glucose 187 H 127 H 128 H Random Glucose Fasting Glucose Lactic Acid Lactic Acid F/U @ 2Hr Lactic Acid F/U @ 4Hr Ammonia B-Natriuretic Peptide Total Protein Albumin Valproic Acid IgE 03/05/22 03/05/22 03/06/22 16:32 20:48 07:41 WBC Hgb Hct MCH MCHC RDW Neut % (Auto) Lymph % (Auto) [place] % (Auto) Eos % (Auto) Lymph # (Auto) Absolute Neuts (auto) VBG HCO3 Potassium Chloride Carbon Dioxide Anion Gap BUN POC Glucose 123 H 152 H 120 H Random Glucose Fasting Glucose Lactic Acid Lactic Acid F/U @ 2Hr Lactic Acid F/U @ 4Hr Ammonia B-Natriuretic Peptide Total Protein Albumin Valproic Acid IgE 03/06/22 03/06/22 03/06/22 11:25 15:41 19:16 WBC Hgb Hct MCH MCHC RDW Neut % (Auto) Lymph % (Auto) [place] % (Auto) Eos % (Auto) Lymph # (Auto) Absolute Neuts (auto) VBG HCO3 Potassium Chloride Carbon Dioxide Anion Gap BUN POC Glucose 197 H 197 H 159 H Random Glucose Fasting Glucose Lactic Acid Lactic Acid F/U @ 2Hr Lactic Acid F/U @ 4Hr Ammonia B-Natriuretic Peptide Total Protein Albumin Valproic Acid IgE 03/07/22 03/07/22 03/08/22 15:00 20:23 07:16 WBC Hgb Hct MCH MCHC RDW Neut % (Auto) Lymph % (Auto) [place] % (Auto) Eos % (Auto) Lymph # (Auto) Absolute Neuts (auto) VBG HCO3 Potassium Chloride Carbon Dioxide Anion Gap BUN POC Glucose 188 H 149 H 147 H Random Glucose Fasting Glucose Lactic Acid Lactic Acid F/U @ 2Hr Lactic Acid F/U @ 4Hr Ammonia B-Natriuretic Peptide Total Protein Albumin Valproic Acid IgE 03/08/22 03/08/22 03/08/22 11:22 15:46 19:28 WBC Hgb Hct MCH MCHC RDW Neut % (Auto) Lymph % (Auto) [place] % (Auto) Eos % (Auto) Lymph # (Auto) Absolute Neuts (auto) VBG HCO3 Potassium Chloride Carbon Dioxide Anion Gap BUN POC Glucose 214 H 138 H 163 H Random Glucose Fasting Glucose Lactic Acid Lactic Acid F/U @ 2Hr Lactic Acid F/U @ 4Hr Ammonia B-Natriuretic Peptide Total Protein Albumin Valproic Acid IgE 03/09/22 03/09/22 03/09/22 06:57 10:57 15:58 WBC Hgb Hct MCH MCHC RDW Neut % (Auto) Lymph % (Auto) [place] % (Auto) Eos % (Auto) Lymph # (Auto) Absolute Neuts (auto) VBG HCO3 Potassium Chloride Carbon Dioxide Anion Gap BUN POC Glucose 123 H 127 H 126 H Random Glucose Fasting Glucose Lactic Acid Lactic Acid F/U @ 2Hr Lactic Acid F/U @ 4Hr Ammonia B-Natriuretic Peptide Total Protein Albumin Valproic Acid IgE 03/09/22 03/10/22 03/10/22 19:59 06:08 12:22 WBC Hgb Hct MCH MCHC RDW Neut % (Auto) Lymph % (Auto) [place] % (Auto) Eos % (Auto) Lymph # (Auto) Absolute Neuts (auto) VBG HCO3 Potassium Chloride Carbon Dioxide Anion Gap BUN 22 H POC Glucose 221 H 163 H Random Glucose 120 H Fasting Glucose Lactic Acid Lactic Acid F/U @ 2Hr Lactic Acid F/U @ 4Hr Ammonia B-Natriuretic Peptide Total Protein Albumin Valproic Acid IgE 03/10/22 03/11/22 03/11/22 20:05 07:57 11:30 WBC Hgb Hct MCH MCHC RDW Neut % (Auto) Lymph % (Auto) [place] % (Auto) Eos % (Auto) Lymph # (Auto) Absolute Neuts (auto) VBG HCO3 Potassium Chloride Carbon Dioxide Anion Gap BUN POC Glucose 184 H 149 H 158 H Random Glucose Fasting Glucose Lactic Acid Lactic Acid F/U @ 2Hr Lactic Acid F/U @ 4Hr Ammonia B-Natriuretic Peptide Total Protein Albumin Valproic Acid IgE 03/11/22 03/12/22 03/12/22 15:58 07:23 15:52 WBC Hgb Hct MCH MCHC RDW Neut % (Auto) Lymph % (Auto) [place] % (Auto) Eos % (Auto) Lymph # (Auto) Absolute Neuts (auto) VBG HCO3 Potassium Chloride Carbon Dioxide Anion Gap BUN POC Glucose 216 H 118 H 121 H Random Glucose Fasting Glucose Lactic Acid Lactic Acid F/U @ 2Hr Lactic Acid F/U @ 4Hr Ammonia B-Natriuretic Peptide Total Protein Albumin Valproic Acid IgE 03/12/22 03/13/22 03/13/22 19:10 07:25 11:30 WBC Hgb Hct MCH MCHC RDW Neut % (Auto) Lymph % (Auto) [place] % (Auto) Eos % (Auto) Lymph # (Auto) Absolute Neuts (auto) VBG HCO3 Potassium Chloride Carbon Dioxide Anion Gap BUN POC Glucose 181 H 119 H 200 H Random Glucose Fasting Glucose Lactic Acid Lactic Acid F/U @ 2Hr Lactic Acid F/U @ 4Hr Ammonia B-Natriuretic Peptide Total Protein Albumin Valproic Acid IgE 03/13/22 03/14/22 03/14/22 19:26 10:54 15:55 WBC Hgb Hct MCH MCHC RDW Neut % (Auto) Lymph % (Auto) [place] % (Auto) Eos % (Auto) Lymph # (Auto) Absolute Neuts (auto) VBG HCO3 Potassium Chloride Carbon Dioxide Anion Gap BUN POC Glucose 157 H 123 H 124 H Random Glucose Fasting Glucose Lactic Acid Lactic Acid F/U @ 2Hr Lactic Acid F/U @ 4Hr Ammonia B-Natriuretic Peptide Total Protein Albumin Valproic Acid IgE 03/14/22 03/15/22 03/15/22 19:22 15:13 19:30 WBC Hgb Hct MCH MCHC RDW Neut % (Auto) Lymph % (Auto) [place] % (Auto) Eos % (Auto) Lymph # (Auto) Absolute Neuts (auto) VBG HCO3 Potassium Chloride Carbon Dioxide Anion Gap BUN POC Glucose 149 H 144 H 169 H Random Glucose Fasting Glucose Lactic Acid Lactic Acid F/U @ 2Hr Lactic Acid F/U @ 4Hr Ammonia B-Natriuretic Peptide Total Protein Albumin Valproic Acid IgE 03/16/22 03/16/22 03/16/22 08:12 16:32 19:37 WBC Hgb Hct MCH MCHC RDW Neut % (Auto) Lymph % (Auto) [place] % (Auto) Eos % (Auto) Lymph # (Auto) Absolute Neuts (auto) VBG HCO3 Potassium Chloride Carbon Dioxide Anion Gap BUN POC Glucose 130 H 187 H 192 H Random Glucose Fasting Glucose Lactic Acid Lactic Acid F/U @ 2Hr Lactic Acid F/U @ 4Hr Ammonia B-Natriuretic Peptide Total Protein Albumin Valproic Acid IgE 03/17/22 03/17/22 03/17/22 11:02 15:24 19:46 WBC Hgb Hct MCH MCHC RDW Neut % (Auto) Lymph % (Auto) [place] % (Auto) Eos % (Auto) Lymph # (Auto) Absolute Neuts (auto) VBG HCO3 Potassium Chloride Carbon Dioxide Anion Gap BUN POC Glucose 149 H 155 H 145 H Random Glucose Fasting Glucose Lactic Acid Lactic Acid F/U @ 2Hr Lactic Acid F/U @ 4Hr Ammonia B-Natriuretic Peptide Total Protein Albumin Valproic Acid IgE 03/18/22 03/18/22 03/18/22 10:59 15:36 20:05 WBC Hgb Hct MCH MCHC RDW Neut % (Auto) Lymph % (Auto) [place] % (Auto) Eos % (Auto) Lymph # (Auto) Absolute Neuts (auto) VBG HCO3 Potassium Chloride Carbon Dioxide Anion Gap BUN POC Glucose 164 H 236 H 127 H Random Glucose Fasting Glucose Lactic Acid Lactic Acid F/U @ 2Hr Lactic Acid F/U @ 4Hr Ammonia B-Natriuretic Peptide Total Protein Albumin Valproic Acid IgE 03/19/22 03/19/22 03/19/22 07:13 11:39 15:44 WBC Hgb Hct MCH MCHC RDW Neut % (Auto) Lymph % (Auto) [place] % (Auto) Eos % (Auto) Lymph # (Auto) Absolute Neuts (auto) VBG HCO3 Potassium Chloride Carbon Dioxide Anion Gap BUN POC Glucose 132 H 210 H 137 H Random Glucose Fasting Glucose Lactic Acid Lactic Acid F/U @ 2Hr Lactic Acid F/U @ 4Hr Ammonia B-Natriuretic Peptide Total Protein Albumin Valproic Acid IgE 03/19/22 03/20/22 03/20/22 19:15 07:32 11:17 WBC Hgb Hct MCH MCHC RDW Neut % (Auto) Lymph % (Auto) [place] % (Auto) Eos % (Auto) Lymph # (Auto) Absolute Neuts (auto) VBG HCO3 Potassium Chloride Carbon Dioxide Anion Gap BUN POC Glucose 189 H 141 H 139 H Random Glucose Fasting Glucose Lactic Acid Lactic Acid F/U @ 2Hr Lactic Acid F/U @ 4Hr Ammonia B-Natriuretic Peptide Total Protein Albumin Valproic Acid IgE 03/20/22 03/20/22 03/21/22 15:37 19:41 07:09 WBC Hgb Hct MCH MCHC RDW Neut % (Auto) Lymph % (Auto) [place] % (Auto) Eos % (Auto) Lymph # (Auto) Absolute Neuts (auto) VBG HCO3 Potassium Chloride Carbon Dioxide Anion Gap BUN POC Glucose 152 H 187 H 127 H Random Glucose Fasting Glucose Lactic Acid Lactic Acid F/U @ 2Hr Lactic Acid F/U @ 4Hr Ammonia B-Natriuretic Peptide Total Protein Albumin Valproic Acid IgE 03/21/22 03/21/22 03/21/22 11:04 15:34 19:03 WBC Hgb Hct MCH MCHC RDW Neut % (Auto) Lymph % (Auto) [place] % (Auto) Eos % (Auto) Lymph # (Auto) Absolute Neuts (auto) VBG HCO3 Potassium Chloride Carbon Dioxide Anion Gap BUN POC Glucose 200 H 183 H 163 H Random Glucose Fasting Glucose Lactic Acid Lactic Acid F/U @ 2Hr Lactic Acid F/U @ 4Hr Ammonia B-Natriuretic Peptide Total Protein Albumin Valproic Acid IgE 03/22/22 03/22/22 03/22/22 07:20 11:10 15:54 WBC Hgb Hct MCH MCHC RDW Neut % (Auto) Lymph % (Auto) [place] % (Auto) Eos % (Auto) Lymph # (Auto) Absolute Neuts (auto) VBG HCO3 Potassium Chloride Carbon Dioxide Anion Gap BUN POC Glucose 140 H 168 H 150 H Random Glucose Fasting Glucose Lactic Acid Lactic Acid F/U @ 2Hr Lactic Acid F/U @ 4Hr Ammonia B-Natriuretic Peptide Total Protein Albumin Valproic Acid IgE 03/22/22 03/23/22 03/23/22 20:03 07:21 11:09 WBC Hgb Hct MCH MCHC RDW Neut % (Auto) Lymph % (Auto) [place] % (Auto) Eos % (Auto) Lymph # (Auto) Absolute Neuts (auto) VBG HCO3 Potassium Chloride Carbon Dioxide Anion Gap BUN POC Glucose 152 H 151 H 187 H Random Glucose Fasting Glucose Lactic Acid Lactic Acid F/U @ 2Hr Lactic Acid F/U @ 4Hr Ammonia B-Natriuretic Peptide Total Protein Albumin Valproic Acid IgE 03/23/22 03/23/22 03/24/22 15:18 20:15 08:22 WBC Hgb Hct MCH MCHC RDW Neut % (Auto) Lymph % (Auto) [place] % (Auto) Eos % (Auto) Lymph # (Auto) Absolute Neuts (auto) VBG HCO3 Potassium Chloride Carbon Dioxide Anion Gap BUN POC Glucose 157 H 153 H 149 H Random Glucose Fasting Glucose Lactic Acid Lactic Acid F/U @ 2Hr Lactic Acid F/U @ 4Hr Ammonia B-Natriuretic Peptide Total Protein Albumin Valproic Acid IgE 03/24/22 03/24/22 03/24/22 11:35 15:46 19:39 WBC Hgb Hct MCH MCHC RDW Neut % (Auto) Lymph % (Auto) [place] % (Auto) Eos % (Auto) Lymph # (Auto) Absolute Neuts (auto) VBG HCO3 Potassium Chloride Carbon Dioxide Anion Gap BUN POC Glucose 187 H 134 H 167 H Random Glucose Fasting Glucose Lactic Acid Lactic Acid F/U @ 2Hr Lactic Acid F/U @ 4Hr Ammonia B-Natriuretic Peptide Total Protein Albumin Valproic Acid IgE 03/25/22 03/25/22 03/25/22 11:19 15:40 19:29 WBC Hgb Hct MCH MCHC RDW Neut % (Auto) Lymph % (Auto) [place] % (Auto) Eos % (Auto) Lymph # (Auto) Absolute Neuts (auto) VBG HCO3 Potassium Chloride Carbon Dioxide Anion Gap BUN POC Glucose 153 H 134 H 177 H Random Glucose Fasting Glucose Lactic Acid Lactic Acid F/U @ 2Hr Lactic Acid F/U @ 4Hr Ammonia B-Natriuretic Peptide Total Protein Albumin Valproic Acid IgE 03/26/22 03/26/22 03/26/22 07:25 11:25 15:33 WBC Hgb Hct MCH MCHC RDW Neut % (Auto) Lymph % (Auto) [place] % (Auto) Eos % (Auto) Lymph # (Auto) Absolute Neuts (auto) VBG HCO3 Potassium Chloride Carbon Dioxide Anion Gap BUN POC Glucose 121 H 131 H 127 H Random Glucose Fasting Glucose Lactic Acid Lactic Acid F/U @ 2Hr Lactic Acid F/U @ 4Hr Ammonia B-Natriuretic Peptide Total Protein Albumin Valproic Acid IgE 03/26/22 03/27/22 03/27/22 19:06 07:24 11:28 WBC Hgb Hct MCH MCHC RDW Neut % (Auto) Lymph % (Auto) [place] % (Auto) Eos % (Auto) Lymph # (Auto) Absolute Neuts (auto) VBG HCO3 Potassium Chloride Carbon Dioxide Anion Gap BUN POC Glucose 199 H 126 H 124 H Random Glucose Fasting Glucose Lactic Acid Lactic Acid F/U @ 2Hr Lactic Acid F/U @ 4Hr Ammonia B-Natriuretic Peptide Total Protein Albumin Valproic Acid IgE 03/27/22 03/28/22 03/28/22 19:11 07:14 10:44 WBC Hgb Hct MCH MCHC RDW Neut % (Auto) Lymph % (Auto) [place] % (Auto) Eos % (Auto) Lymph # (Auto) Absolute Neuts (auto) VBG HCO3 Potassium Chloride Carbon Dioxide Anion Gap BUN POC Glucose 155 H 129 H 125 H Random Glucose Fasting Glucose Lactic Acid Lactic Acid F/U @ 2Hr Lactic Acid F/U @ 4Hr Ammonia B-Natriuretic Peptide Total Protein Albumin Valproic Acid IgE 03/28/22 03/28/22 03/29/22 15:22 19:24 11:15 WBC Hgb Hct MCH MCHC RDW Neut % (Auto) Lymph % (Auto) [place] % (Auto) Eos % (Auto) Lymph # (Auto) Absolute Neuts (auto) VBG HCO3 Potassium Chloride Carbon Dioxide Anion Gap BUN POC Glucose 207 H 203 H 118 H Random Glucose Fasting Glucose Lactic Acid Lactic Acid F/U @ 2Hr Lactic Acid F/U @ 4Hr Ammonia B-Natriuretic Peptide Total Protein Albumin Valproic Acid IgE 03/29/22 03/29/22 03/30/22 15:14 19:09 07:17 WBC Hgb Hct MCH MCHC RDW Neut % (Auto) Lymph % (Auto) [place] % (Auto) Eos % (Auto) Lymph # (Auto) Absolute Neuts (auto) VBG HCO3 Potassium Chloride Carbon Dioxide Anion Gap BUN POC Glucose 143 H 157 H 136 H Random Glucose Fasting Glucose Lactic Acid Lactic Acid F/U @ 2Hr Lactic Acid F/U @ 4Hr Ammonia B-Natriuretic Peptide Total Protein Albumin Valproic Acid IgE 03/30/22 03/30/22 03/31/22 11:52 15:56 07:27 WBC Hgb Hct MCH MCHC RDW Neut % (Auto) Lymph % (Auto) [place] % (Auto) Eos % (Auto) Lymph # (Auto) Absolute Neuts (auto) VBG HCO3 Potassium Chloride Carbon Dioxide Anion Gap BUN POC Glucose 142 H 202 H 146 H Random Glucose Fasting Glucose Lactic Acid Lactic Acid F/U @ 2Hr Lactic Acid F/U @ 4Hr Ammonia B-Natriuretic Peptide Total Protein Albumin Valproic Acid IgE 03/31/22 03/31/22 03/31/22 11:34 16:19 19:43 WBC Hgb Hct MCH MCHC RDW Neut % (Auto) Lymph % (Auto) [place] % (Auto) Eos % (Auto) Lymph # (Auto) Absolute Neuts (auto) VBG HCO3 Potassium Chloride Carbon Dioxide Anion Gap BUN POC Glucose 269 H 234 H 187 H Random Glucose Fasting Glucose Lactic Acid Lactic Acid F/U @ 2Hr Lactic Acid F/U @ 4Hr Ammonia B-Natriuretic Peptide Total Protein Albumin Valproic Acid IgE 04/01/22 04/01/22 04/01/22 09:35 15:23 19:29 WBC Hgb Hct MCH MCHC RDW Neut % (Auto) Lymph % (Auto) [place] % (Auto) Eos % (Auto) Lymph # (Auto) Absolute Neuts (auto) VBG HCO3 Potassium Chloride Carbon Dioxide Anion Gap BUN POC Glucose 157 H 147 H 155 H Random Glucose Fasting Glucose Lactic Acid Lactic Acid F/U @ 2Hr Lactic Acid F/U @ 4Hr Ammonia B-Natriuretic Peptide Total Protein Albumin Valproic Acid IgE 04/02/22 04/02/22 04/02/22 07:07 10:56 19:39 WBC Hgb Hct MCH MCHC RDW Neut % (Auto) Lymph % (Auto) [place] % (Auto) Eos % (Auto) Lymph # (Auto) Absolute Neuts (auto) VBG HCO3 Potassium Chloride Carbon Dioxide Anion Gap BUN POC Glucose 148 H 217 H 156 H Random Glucose Fasting Glucose Lactic Acid Lactic Acid F/U @ 2Hr Lactic Acid F/U @ 4Hr Ammonia B-Natriuretic Peptide Total Protein Albumin Valproic Acid IgE 04/03/22 04/03/22 04/03/22 07:21 11:24 15:18 WBC Hgb Hct MCH MCHC RDW Neut % (Auto) Lymph % (Auto) [place] % (Auto) Eos % (Auto) Lymph # (Auto) Absolute Neuts (auto) VBG HCO3 Potassium Chloride Carbon Dioxide Anion Gap BUN POC Glucose 169 H 155 H 131 H Random Glucose Fasting Glucose Lactic Acid Lactic Acid F/U @ 2Hr Lactic Acid F/U @ 4Hr Ammonia B-Natriuretic Peptide Total Protein Albumin Valproic Acid IgE 04/03/22 04/04/22 04/04/22 21:24 07:05 11:09 WBC Hgb Hct MCH MCHC RDW Neut % (Auto) Lymph % (Auto) [place] % (Auto) Eos % (Auto) Lymph # (Auto) Absolute Neuts (auto) VBG HCO3 Potassium Chloride Carbon Dioxide Anion Gap BUN POC Glucose 168 H 144 H 137 H Random Glucose Fasting Glucose Lactic Acid Lactic Acid F/U @ 2Hr Lactic Acid F/U @ 4Hr Ammonia B-Natriuretic Peptide Total Protein Albumin Valproic Acid IgE 04/04/22 04/04/22 04/05/22 15:25 20:56 07:16 WBC Hgb Hct MCH MCHC RDW Neut % (Auto) Lymph % (Auto) [place] % (Auto) Eos % (Auto) Lymph # (Auto) Absolute Neuts (auto) VBG HCO3 Potassium Chloride Carbon Dioxide Anion Gap BUN POC Glucose 141 H 144 H 139 H Random Glucose Fasting Glucose Lactic Acid Lactic Acid F/U @ 2Hr Lactic Acid F/U @ 4Hr Ammonia B-Natriuretic Peptide Total Protein Albumin Valproic Acid IgE 04/05/22 04/05/22 04/06/22 11:26 20:37 07:15 WBC Hgb Hct MCH MCHC RDW Neut % (Auto) Lymph % (Auto) [place] % (Auto) Eos % (Auto) Lymph # (Auto) Absolute Neuts (auto) VBG HCO3 Potassium Chloride Carbon Dioxide Anion Gap BUN POC Glucose 177 H 245 H 141 H Random Glucose Fasting Glucose Lactic Acid Lactic Acid F/U @ 2Hr Lactic Acid F/U @ 4Hr Ammonia B-Natriuretic Peptide Total Protein Albumin Valproic Acid IgE 04/06/22 04/06/22 04/06/22 11:03 15:43 20:04 WBC Hgb Hct MCH MCHC RDW Neut % (Auto) Lymph % (Auto) [place] % (Auto) Eos % (Auto) Lymph # (Auto) Absolute Neuts (auto) VBG HCO3 Potassium Chloride Carbon Dioxide Anion Gap BUN POC Glucose 135 H 183 H 166 H Random Glucose Fasting Glucose Lactic Acid Lactic Acid F/U @ 2Hr Lactic Acid F/U @ 4Hr Ammonia B-Natriuretic Peptide Total Protein Albumin Valproic Acid IgE 04/07/22 04/07/22 04/07/22 07:23 15:56 20:11 WBC Hgb Hct MCH MCHC RDW Neut % (Auto) Lymph % (Auto) [place] % (Auto) Eos % (Auto) Lymph # (Auto) Absolute Neuts (auto) VBG HCO3 Potassium Chloride Carbon Dioxide Anion Gap BUN POC Glucose 131 H 201 H 191 H Random Glucose Fasting Glucose Lactic Acid Lactic Acid F/U @ 2Hr Lactic Acid F/U @ 4Hr Ammonia B-Natriuretic Peptide Total Protein Albumin Valproic Acid IgE 04/08/22 04/08/22 04/08/22 07:26 12:13 15:47 WBC Hgb Hct MCH MCHC RDW Neut % (Auto) Lymph % (Auto) [place] % (Auto) Eos % (Auto) Lymph # (Auto) Absolute Neuts (auto) VBG HCO3 Potassium Chloride Carbon Dioxide Anion Gap BUN POC Glucose 116 H 162 H 210 H Random Glucose Fasting Glucose Lactic Acid Lactic Acid F/U @ 2Hr Lactic Acid F/U @ 4Hr Ammonia B-Natriuretic Peptide Total Protein Albumin Valproic Acid IgE 04/08/22 04/09/22 04/09/22 19:27 07:44 11:21 WBC Hgb Hct MCH MCHC RDW Neut % (Auto) Lymph % (Auto) [place] % (Auto) Eos % (Auto) Lymph # (Auto) Absolute Neuts (auto) VBG HCO3 Potassium Chloride Carbon Dioxide Anion Gap BUN POC Glucose 141 H 140 H 133 H Random Glucose Fasting Glucose Lactic Acid Lactic Acid F/U @ 2Hr Lactic Acid F/U @ 4Hr Ammonia B-Natriuretic Peptide Total Protein Albumin Valproic Acid IgE 04/09/22 04/09/22 04/10/22 14:59 19:17 07:27 WBC Hgb Hct MCH MCHC RDW Neut % (Auto) Lymph % (Auto) [place] % (Auto) Eos % (Auto) Lymph # (Auto) Absolute Neuts (auto) VBG HCO3 Potassium Chloride Carbon Dioxide Anion Gap BUN POC Glucose 194 H 189 H 141 H Random Glucose Fasting Glucose Lactic Acid Lactic Acid F/U @ 2Hr Lactic Acid F/U @ 4Hr Ammonia B-Natriuretic Peptide Total Protein Albumin Valproic Acid IgE 04/10/22 04/10/22 04/10/22 11:15 16:03 20:35 WBC Hgb Hct MCH MCHC RDW Neut % (Auto) Lymph % (Auto) [place] % (Auto) Eos % (Auto) Lymph # (Auto) Absolute Neuts (auto) VBG HCO3 Potassium Chloride Carbon Dioxide Anion Gap BUN POC Glucose 192 H 190 H 120 H Random Glucose Fasting Glucose Lactic Acid Lactic Acid F/U @ 2Hr Lactic Acid F/U @ 4Hr Ammonia B-Natriuretic Peptide Total Protein Albumin Valproic Acid IgE 04/11/22 04/11/22 04/11/22 07:47 11:32 19:36 WBC Hgb Hct MCH MCHC RDW Neut % (Auto) Lymph % (Auto) [place] % (Auto) Eos % (Auto) Lymph # (Auto) Absolute Neuts (auto) VBG HCO3 Potassium Chloride Carbon Dioxide Anion Gap BUN POC Glucose 128 H 139 H 191 H Random Glucose Fasting Glucose Lactic Acid Lactic Acid F/U @ 2Hr Lactic Acid F/U @ 4Hr Ammonia B-Natriuretic Peptide Total Protein Albumin Valproic Acid IgE 04/12/22 04/12/22 04/12/22 07:24 11:29 14:58 WBC Hgb Hct MCH MCHC RDW Neut % (Auto) Lymph % (Auto) [place] % (Auto) Eos % (Auto) Lymph # (Auto) Absolute Neuts (auto) VBG HCO3 Potassium Chloride Carbon Dioxide Anion Gap BUN POC Glucose 138 H 181 H 136 H Random Glucose Fasting Glucose Lactic Acid Lactic Acid F/U @ 2Hr Lactic Acid F/U @ 4Hr Ammonia B-Natriuretic Peptide Total Protein Albumin Valproic Acid IgE 04/12/22 04/13/22 04/13/22 19:50 09:05 11:17 WBC Hgb Hct MCH MCHC RDW Neut % (Auto) Lymph % (Auto) [place] % (Auto) Eos % (Auto) Lymph # (Auto) Absolute Neuts (auto) VBG HCO3 Potassium Chloride Carbon Dioxide Anion Gap BUN POC Glucose 151 H 146 H 213 H Random Glucose Fasting Glucose Lactic Acid Lactic Acid F/U @ 2Hr Lactic Acid F/U @ 4Hr Ammonia B-Natriuretic Peptide Total Protein Albumin Valproic Acid IgE 04/13/22 04/13/22 04/14/22 12:01 15:59 07:25 WBC Hgb Hct MCH MCHC RDW Neut % (Auto) Lymph % (Auto) [place] % (Auto) Eos % (Auto) Lymph # (Auto) Absolute Neuts (auto) VBG HCO3 Potassium Chloride Carbon Dioxide Anion Gap BUN 19 H POC Glucose 119 H 158 H Random Glucose 226 H D Fasting Glucose Lactic Acid Lactic Acid F/U @ 2Hr Lactic Acid F/U @ 4Hr Ammonia B-Natriuretic Peptide Total Protein Albumin Valproic Acid IgE 04/14/22 04/14/22 04/15/22 16:19 19:39 07:23 WBC Hgb Hct MCH MCHC RDW Neut % (Auto) Lymph % (Auto) [place] % (Auto) Eos % (Auto) Lymph # (Auto) Absolute Neuts (auto) VBG HCO3 Potassium Chloride Carbon Dioxide Anion Gap BUN POC Glucose 144 H 176 H 152 H Random Glucose Fasting Glucose Lactic Acid Lactic Acid F/U @ 2Hr Lactic Acid F/U @ 4Hr Ammonia B-Natriuretic Peptide Total Protein Albumin Valproic Acid IgE 04/15/22 04/15/22 04/15/22 11:32 16:02 20:47 WBC Hgb Hct MCH MCHC RDW Neut % (Auto) Lymph % (Auto) [place] % (Auto) Eos % (Auto) Lymph # (Auto) Absolute Neuts (auto) VBG HCO3 Potassium Chloride Carbon Dioxide Anion Gap BUN POC Glucose 129 H 176 H 134 H Random Glucose Fasting Glucose Lactic Acid Lactic Acid F/U @ 2Hr Lactic Acid F/U @ 4Hr Ammonia B-Natriuretic Peptide Total Protein Albumin Valproic Acid IgE 04/16/22 04/17/22 04/17/22 20:43 07:15 11:05 WBC Hgb Hct MCH MCHC RDW Neut % (Auto) Lymph % (Auto) [place] % (Auto) Eos % (Auto) Lymph # (Auto) Absolute Neuts (auto) VBG HCO3 Potassium Chloride Carbon Dioxide Anion Gap BUN POC Glucose 175 H 122 H 246 H Random Glucose Fasting Glucose Lactic Acid Lactic Acid F/U @ 2Hr Lactic Acid F/U @ 4Hr Ammonia B-Natriuretic Peptide Total Protein Albumin Valproic Acid IgE 04/17/22 04/17/22 04/18/22 16:25 20:02 08:13 WBC Hgb Hct MCH MCHC RDW Neut % (Auto) Lymph % (Auto) [place] % (Auto) Eos % (Auto) Lymph # (Auto) Absolute Neuts (auto) VBG HCO3 Potassium Chloride Carbon Dioxide Anion Gap BUN POC Glucose 145 H 131 H 127 H Random Glucose Fasting Glucose Lactic Acid Lactic Acid F/U @ 2Hr Lactic Acid F/U @ 4Hr Ammonia B-Natriuretic Peptide Total Protein Albumin Valproic Acid IgE 04/18/22 04/18/22 04/19/22 16:15 19:57 12:03 WBC Hgb Hct MCH MCHC RDW Neut % (Auto) Lymph % (Auto) [place] % (Auto) Eos % (Auto) Lymph # (Auto) Absolute Neuts (auto) VBG HCO3 Potassium Chloride Carbon Dioxide Anion Gap BUN POC Glucose 169 H 157 H 174 H Random Glucose Fasting Glucose Lactic Acid Lactic Acid F/U @ 2Hr Lactic Acid F/U @ 4Hr Ammonia B-Natriuretic Peptide Total Protein Albumin Valproic Acid IgE 04/19/22 04/20/22 04/20/22 15:35 07:25 17:08 WBC Hgb Hct MCH MCHC RDW Neut % (Auto) Lymph % (Auto) [place] % (Auto) Eos % (Auto) Lymph # (Auto) Absolute Neuts (auto) VBG HCO3 Potassium Chloride Carbon Dioxide Anion Gap BUN POC Glucose 123 H 138 H 148 H Random Glucose Fasting Glucose Lactic Acid Lactic Acid F/U @ 2Hr Lactic Acid F/U @ 4Hr Ammonia B-Natriuretic Peptide Total Protein Albumin Valproic Acid IgE 04/20/22 04/21/22 04/21/22 19:47 15:12 19:23 WBC Hgb Hct MCH MCHC RDW Neut % (Auto) Lymph % (Auto) [place] % (Auto) Eos % (Auto) Lymph # (Auto) Absolute Neuts (auto) VBG HCO3 Potassium Chloride Carbon Dioxide Anion Gap BUN POC Glucose 166 H 354 H* 212 H Random Glucose Fasting Glucose Lactic Acid Lactic Acid F/U @ 2Hr Lactic Acid F/U @ 4Hr Ammonia B-Natriuretic Peptide Total Protein Albumin Valproic Acid IgE 04/22/22 04/22/22 04/22/22 07:06 11:52 16:51 WBC Hgb Hct MCH MCHC RDW Neut % (Auto) Lymph % (Auto) [place] % (Auto) Eos % (Auto) Lymph # (Auto) Absolute Neuts (auto) VBG HCO3 Potassium Chloride Carbon Dioxide Anion Gap BUN POC Glucose 173 H 186 H 169 H Random Glucose Fasting Glucose Lactic Acid Lactic Acid F/U @ 2Hr Lactic Acid F/U @ 4Hr Ammonia B-Natriuretic Peptide Total Protein Albumin Valproic Acid IgE 04/22/22 04/23/22 04/23/22 19:22 07:23 07:52 WBC 4.2 L Hgb 12.9 L Hct 40.7 L MCH MCHC RDW Neut % (Auto) Lymph % (Auto) [place] % (Auto) Eos % (Auto) Lymph # (Auto) Absolute Neuts (auto) VBG HCO3 Potassium Chloride Carbon Dioxide Anion Gap BUN POC Glucose 167 H 161 H Random Glucose Fasting Glucose Lactic Acid Lactic Acid F/U @ 2Hr Lactic Acid F/U @ 4Hr Ammonia B-Natriuretic Peptide Total Protein Albumin Valproic Acid IgE 04/23/22 04/23/22 04/23/22 07:52 15:22 19:45 WBC Hgb Hct MCH MCHC RDW Neut % (Auto) Lymph % (Auto) [place] % (Auto) Eos % (Auto) Lymph # (Auto) Absolute Neuts (auto) VBG HCO3 Potassium Chloride Carbon Dioxide Anion Gap BUN 18 H POC Glucose 155 H 190 H Random Glucose 144 H D Fasting Glucose Lactic Acid Lactic Acid F/U @ 2Hr Lactic Acid F/U @ 4Hr Ammonia B-Natriuretic Peptide Total Protein Albumin Valproic Acid IgE 04/24/22 04/24/22 04/25/22 16:52 20:32 15:39 WBC Hgb Hct MCH MCHC RDW Neut % (Auto) Lymph % (Auto) [place] % (Auto) Eos % (Auto) Lymph # (Auto) Absolute Neuts (auto) VBG HCO3 Potassium Chloride Carbon Dioxide Anion Gap BUN POC Glucose 132 H 185 H 192 H Random Glucose Fasting Glucose Lactic Acid Lactic Acid F/U @ 2Hr Lactic Acid F/U @ 4Hr Ammonia B-Natriuretic Peptide Total Protein Albumin Valproic Acid IgE 04/25/22 04/26/22 04/26/22 20:05 12:10 16:28 WBC Hgb Hct MCH MCHC RDW Neut % (Auto) Lymph % (Auto) [place] % (Auto) Eos % (Auto) Lymph # (Auto) Absolute Neuts (auto) VBG HCO3 Potassium Chloride Carbon Dioxide Anion Gap BUN POC Glucose 173 H 116 H 129 H Random Glucose Fasting Glucose Lactic Acid Lactic Acid F/U @ 2Hr Lactic Acid F/U @ 4Hr Ammonia B-Natriuretic Peptide Total Protein Albumin Valproic Acid IgE 04/26/22 04/27/22 04/27/22 20:04 08:47 11:36 WBC Hgb Hct MCH MCHC RDW Neut % (Auto) Lymph % (Auto) [place] % (Auto) Eos % (Auto) Lymph # (Auto) Absolute Neuts (auto) VBG HCO3 Potassium Chloride Carbon Dioxide Anion Gap BUN POC Glucose 187 H 126 H 123 H Random Glucose Fasting Glucose Lactic Acid Lactic Acid F/U @ 2Hr Lactic Acid F/U @ 4Hr Ammonia B-Natriuretic Peptide Total Protein Albumin Valproic Acid IgE 04/27/22 04/27/22 04/28/22 16:12 19:39 07:29 WBC Hgb Hct MCH MCHC RDW Neut % (Auto) Lymph % (Auto) [place] % (Auto) Eos % (Auto) Lymph # (Auto) Absolute Neuts (auto) VBG HCO3 Potassium Chloride Carbon Dioxide Anion Gap BUN POC Glucose 160 H 147 H 144 H Random Glucose Fasting Glucose Lactic Acid Lactic Acid F/U @ 2Hr Lactic Acid F/U @ 4Hr Ammonia B-Natriuretic Peptide Total Protein Albumin Valproic Acid IgE 04/28/22 04/28/22 04/28/22 11:16 15:49 19:38 WBC Hgb Hct MCH MCHC RDW Neut % (Auto) Lymph % (Auto) [place] % (Auto) Eos % (Auto) Lymph # (Auto) Absolute Neuts (auto) VBG HCO3 Potassium Chloride Carbon Dioxide Anion Gap BUN POC Glucose 210 H 154 H 153 H Random Glucose Fasting Glucose Lactic Acid Lactic Acid F/U @ 2Hr Lactic Acid F/U @ 4Hr Ammonia B-Natriuretic Peptide Total Protein Albumin Valproic Acid IgE 04/29/22 04/29/22 04/29/22 07:18 11:08 15:12 WBC Hgb Hct MCH MCHC RDW Neut % (Auto) Lymph % (Auto) [place] % (Auto) Eos % (Auto) Lymph # (Auto) Absolute Neuts (auto) VBG HCO3 Potassium Chloride Carbon Dioxide Anion Gap BUN POC Glucose 126 H 128 H 167 H Random Glucose Fasting Glucose Lactic Acid Lactic Acid F/U @ 2Hr Lactic Acid F/U @ 4Hr Ammonia B-Natriuretic Peptide Total Protein Albumin Valproic Acid IgE 04/29/22 04/30/22 04/30/22 19:56 07:14 15:29 WBC Hgb Hct MCH MCHC RDW Neut % (Auto) Lymph % (Auto) [place] % (Auto) Eos % (Auto) Lymph # (Auto) Absolute Neuts (auto) VBG HCO3 Potassium Chloride Carbon Dioxide Anion Gap BUN POC Glucose 187 H 140 H 122 H Random Glucose Fasting Glucose Lactic Acid Lactic Acid F/U @ 2Hr Lactic Acid F/U @ 4Hr Ammonia B-Natriuretic Peptide Total Protein Albumin Valproic Acid IgE 04/30/22 05/01/22 05/01/22 19:32 07:28 15:47 WBC Hgb Hct MCH MCHC RDW Neut % (Auto) Lymph % (Auto) [place] % (Auto) Eos % (Auto) Lymph # (Auto) Absolute Neuts (auto) VBG HCO3 Potassium Chloride Carbon Dioxide Anion Gap BUN POC Glucose 137 H 198 H 230 H Random Glucose Fasting Glucose Lactic Acid Lactic Acid F/U @ 2Hr Lactic Acid F/U @ 4Hr Ammonia B-Natriuretic Peptide Total Protein Albumin Valproic Acid IgE 05/01/22 05/02/22 05/02/22 19:35 15:40 19:04 WBC Hgb Hct MCH MCHC RDW Neut % (Auto) Lymph % (Auto) [place] % (Auto) Eos % (Auto) Lymph # (Auto) Absolute Neuts (auto) VBG HCO3 Potassium Chloride Carbon Dioxide Anion Gap BUN POC Glucose 159 H 174 H 166 H Random Glucose Fasting Glucose Lactic Acid Lactic Acid F/U @ 2Hr Lactic Acid F/U @ 4Hr Ammonia B-Natriuretic Peptide Total Protein Albumin Valproic Acid IgE 05/03/22 05/03/22 05/03/22 07:16 15:53 19:21 WBC Hgb Hct MCH MCHC RDW Neut % (Auto) Lymph % (Auto) [place] % (Auto) Eos % (Auto) Lymph # (Auto) Absolute Neuts (auto) VBG HCO3 Potassium Chloride Carbon Dioxide Anion Gap BUN POC Glucose 124 H 139 H 144 H Random Glucose Fasting Glucose Lactic Acid Lactic Acid F/U @ 2Hr Lactic Acid F/U @ 4Hr Ammonia B-Natriuretic Peptide Total Protein Albumin Valproic Acid IgE 05/04/22 05/04/22 05/04/22 07:07 11:12 15:38 WBC Hgb Hct MCH MCHC RDW Neut % (Auto) Lymph % (Auto) [place] % (Auto) Eos % (Auto) Lymph # (Auto) Absolute Neuts (auto) VBG HCO3 Potassium Chloride Carbon Dioxide Anion Gap BUN POC Glucose 158 H 164 H 148 H Random Glucose Fasting Glucose Lactic Acid Lactic Acid F/U @ 2Hr Lactic Acid F/U @ 4Hr Ammonia B-Natriuretic Peptide Total Protein Albumin Valproic Acid IgE 05/04/22 05/05/22 05/05/22 20:11 07:56 16:08 WBC Hgb Hct MCH MCHC RDW Neut % (Auto) Lymph % (Auto) [place] % (Auto) Eos % (Auto) Lymph # (Auto) Absolute Neuts (auto) VBG HCO3 Potassium Chloride Carbon Dioxide Anion Gap BUN POC Glucose 199 H 152 H 154 H Random Glucose Fasting Glucose Lactic Acid Lactic Acid F/U @ 2Hr Lactic Acid F/U @ 4Hr Ammonia B-Natriuretic Peptide Total Protein Albumin Valproic Acid IgE 05/05/22 05/06/22 05/07/22 19:30 19:53 06:42 WBC Hgb Hct MCH MCHC RDW Neut % (Auto) Lymph % (Auto) [place] % (Auto) Eos % (Auto) Lymph # (Auto) Absolute Neuts (auto) VBG HCO3 Potassium Chloride Carbon Dioxide Anion Gap BUN POC Glucose 119 H 143 H 126 H Random Glucose Fasting Glucose Lactic Acid Lactic Acid F/U @ 2Hr Lactic Acid F/U @ 4Hr Ammonia B-Natriuretic Peptide Total Protein Albumin Valproic Acid IgE 05/07/22 05/07/22 05/08/22 15:44 19:08 07:14 WBC Hgb Hct MCH MCHC RDW Neut % (Auto) Lymph % (Auto) [place] % (Auto) Eos % (Auto) Lymph # (Auto) Absolute Neuts (auto) VBG HCO3 Potassium Chloride Carbon Dioxide Anion Gap BUN POC Glucose 151 H 145 H 153 H Random Glucose Fasting Glucose Lactic Acid Lactic Acid F/U @ 2Hr Lactic Acid F/U @ 4Hr Ammonia B-Natriuretic Peptide Total Protein Albumin Valproic Acid IgE 05/08/22 05/08/22 05/08/22 11:15 15:18 18:36 WBC Hgb Hct MCH MCHC RDW Neut % (Auto) Lymph % (Auto) [place] % (Auto) Eos % (Auto) Lymph # (Auto) Absolute Neuts (auto) VBG HCO3 Potassium Chloride Carbon Dioxide Anion Gap BUN POC Glucose 145 H 188 H 155 H Random Glucose Fasting Glucose Lactic Acid Lactic Acid F/U @ 2Hr Lactic Acid F/U @ 4Hr Ammonia B-Natriuretic Peptide Total Protein Albumin Valproic Acid IgE 05/09/22 05/09/22 05/10/22 15:27 19:34 09:20 WBC Hgb Hct MCH MCHC RDW Neut % (Auto) Lymph % (Auto) [place] % (Auto) Eos % (Auto) Lymph # (Auto) Absolute Neuts (auto) VBG HCO3 Potassium Chloride Carbon Dioxide Anion Gap BUN POC Glucose 117 H 139 H 149 H Random Glucose Fasting Glucose Lactic Acid Lactic Acid F/U @ 2Hr Lactic Acid F/U @ 4Hr Ammonia B-Natriuretic Peptide Total Protein Albumin Valproic Acid IgE 05/10/22 05/10/22 05/11/22 15:46 20:09 08:05 WBC Hgb Hct MCH MCHC RDW Neut % (Auto) Lymph % (Auto) [place] % (Auto) Eos % (Auto) Lymph # (Auto) Absolute Neuts (auto) VBG HCO3 Potassium Chloride Carbon Dioxide Anion Gap BUN POC Glucose 159 H 159 H 132 H Random Glucose Fasting Glucose Lactic Acid Lactic Acid F/U @ 2Hr Lactic Acid F/U @ 4Hr Ammonia B-Natriuretic Peptide Total Protein Albumin Valproic Acid IgE 05/11/22 05/11/22 05/11/22 08:12 15:33 19:20 WBC Hgb Hct MCH MCHC RDW Neut % (Auto) Lymph % (Auto) [place] % (Auto) Eos % (Auto) Lymph # (Auto) Absolute Neuts (auto) VBG HCO3 Potassium Chloride Carbon Dioxide Anion Gap BUN POC Glucose 223 H 145 H Random Glucose 139 H Fasting Glucose Lactic Acid Lactic Acid F/U @ 2Hr Lactic Acid F/U @ 4Hr Ammonia B-Natriuretic Peptide Total Protein Albumin Valproic Acid IgE 05/12/22 05/12/22 05/12/22 07:47 12:51 15:59 WBC Hgb Hct MCH MCHC RDW Neut % (Auto) Lymph % (Auto) [place] % (Auto) Eos % (Auto) Lymph # (Auto) Absolute Neuts (auto) VBG HCO3 Potassium Chloride Carbon Dioxide Anion Gap BUN POC Glucose 143 H 157 H 152 H Random Glucose Fasting Glucose Lactic Acid Lactic Acid F/U @ 2Hr Lactic Acid F/U @ 4Hr Ammonia B-Natriuretic Peptide Total Protein Albumin Valproic Acid IgE 05/12/22 05/13/22 05/13/22 19:51 08:01 16:13 WBC Hgb Hct MCH MCHC RDW Neut % (Auto) Lymph % (Auto) [place] % (Auto) Eos % (Auto) Lymph # (Auto) Absolute Neuts (auto) VBG HCO3 Potassium Chloride Carbon Dioxide Anion Gap BUN POC Glucose 212 H 123 H 139 H Random Glucose Fasting Glucose Lactic Acid Lactic Acid F/U @ 2Hr Lactic Acid F/U @ 4Hr Ammonia B-Natriuretic Peptide Total Protein Albumin Valproic Acid IgE 10/04/2605/14/22 05/14/22 18:47 07:43 11:46 WBC Hgb Hct MCH MCHC RDW Neut % (Auto) Lymph % (Auto) [place] % (Auto) Eos % (Auto) Lymph # (Auto) Absolute Neuts (auto) VBG HCO3 Potassium Chloride Carbon Dioxide Anion Gap BUN POC Glucose 128 H 138 H 134 H Random Glucose Fasting Glucose Lactic Acid Lactic Acid F/U @ 2Hr Lactic Acid F/U @ 4Hr Ammonia B-Natriuretic Peptide Total Protein Albumin Valproic Acid IgE 05/14/22 05/14/22 05/15/22 17:14 19:49 09:31 WBC Hgb Hct MCH MCHC RDW Neut % (Auto) Lymph % (Auto) [place] % (Auto) Eos % (Auto) Lymph # (Auto) Absolute Neuts (auto) VBG HCO3 Potassium Chloride Carbon Dioxide Anion Gap BUN POC Glucose 168 H 195 H 135 H Random Glucose Fasting Glucose Lactic Acid Lactic Acid F/U @ 2Hr Lactic Acid F/U @ 4Hr Ammonia B-Natriuretic Peptide Total Protein Albumin Valproic Acid IgE 05/15/22 05/15/22 05/15/22 11:34 15:06 19:07 WBC Hgb Hct MCH MCHC RDW Neut % (Auto) Lymph % (Auto) [place] % (Auto) Eos % (Auto) Lymph # (Auto) Absolute Neuts (auto) VBG HCO3 Potassium Chloride Carbon Dioxide Anion Gap BUN POC Glucose 192 H 119 H 173 H Random Glucose Fasting Glucose Lactic Acid Lactic Acid F/U @ 2Hr Lactic Acid F/U @ 4Hr Ammonia B-Natriuretic Peptide Total Protein Albumin Valproic Acid IgE 05/16/22 05/16/22 05/17/22 09:42 19:18 19:29 WBC Hgb Hct MCH MCHC RDW Neut % (Auto) Lymph % (Auto) [place] % (Auto) Eos % (Auto) Lymph # (Auto) Absolute Neuts (auto) VBG HCO3 Potassium Chloride Carbon Dioxide Anion Gap BUN POC Glucose 120 H 157 H 180 H Random Glucose Fasting Glucose Lactic Acid Lactic Acid F/U @ 2Hr Lactic Acid F/U @ 4Hr Ammonia B-Natriuretic Peptide Total Protein Albumin Valproic Acid IgE 05/18/22 05/18/22 05/18/22 07:39 12:17 15:54 WBC Hgb Hct MCH MCHC RDW Neut % (Auto) Lymph % (Auto) [place] % (Auto) Eos % (Auto) Lymph # (Auto) Absolute Neuts (auto) VBG HCO3 Potassium Chloride Carbon Dioxide Anion Gap BUN POC Glucose 151 H 236 H 192 H Random Glucose Fasting Glucose Lactic Acid Lactic Acid F/U @ 2Hr Lactic Acid F/U @ 4Hr Ammonia B-Natriuretic Peptide Total Protein Albumin Valproic Acid IgE 05/18/22 05/19/22 05/19/22 19:24 11:08 15:13 WBC Hgb Hct MCH MCHC RDW Neut % (Auto) Lymph % (Auto) [place] % (Auto) Eos % (Auto) Lymph # (Auto) Absolute Neuts (auto) VBG HCO3 Potassium Chloride Carbon Dioxide Anion Gap BUN POC Glucose 151 H 158 H 179 H Random Glucose Fasting Glucose Lactic Acid Lactic Acid F/U @ 2Hr Lactic Acid F/U @ 4Hr Ammonia B-Natriuretic Peptide Total Protein Albumin Valproic Acid IgE 05/19/22 05/20/22 05/20/22 19:41 12:43 16:10 WBC Hgb Hct MCH MCHC RDW Neut % (Auto) Lymph % (Auto) [place] % (Auto) Eos % (Auto) Lymph # (Auto) Absolute Neuts (auto) VBG HCO3 Potassium Chloride Carbon Dioxide Anion Gap BUN POC Glucose 213 H 200 H 199 H Random Glucose Fasting Glucose Lactic Acid Lactic Acid F/U @ 2Hr Lactic Acid F/U @ 4Hr Ammonia B-Natriuretic Peptide Total Protein Albumin Valproic Acid IgE 05/20/22 05/21/22 05/21/22 19:48 07:22 11:35 WBC Hgb Hct MCH MCHC RDW Neut % (Auto) Lymph % (Auto) [place] % (Auto) Eos % (Auto) Lymph # (Auto) Absolute Neuts (auto) VBG HCO3 Potassium Chloride Carbon Dioxide Anion Gap BUN POC Glucose 197 H 128 H 217 H Random Glucose Fasting Glucose Lactic Acid Lactic Acid F/U @ 2Hr Lactic Acid F/U @ 4Hr Ammonia B-Natriuretic Peptide Total Protein Albumin Valproic Acid IgE 05/21/22 05/21/22 05/22/22 15:22 19:15 15:31 WBC Hgb Hct MCH MCHC RDW Neut % (Auto) Lymph % (Auto) [place] % (Auto) Eos % (Auto) Lymph # (Auto) Absolute Neuts (auto) VBG HCO3 Potassium Chloride Carbon Dioxide Anion Gap BUN POC Glucose 222 H 173 H 214 H Random Glucose Fasting Glucose Lactic Acid Lactic Acid F/U @ 2Hr Lactic Acid F/U @ 4Hr Ammonia B-Natriuretic Peptide Total Protein Albumin Valproic Acid IgE 05/22/22 05/23/22 05/23/22 19:36 07:31 15:49 WBC Hgb Hct MCH MCHC RDW Neut % (Auto) Lymph % (Auto) [place] % (Auto) Eos % (Auto) Lymph # (Auto) Absolute Neuts (auto) VBG HCO3 Potassium Chloride Carbon Dioxide Anion Gap BUN POC Glucose 232 H 127 H 173 H Random Glucose Fasting Glucose Lactic Acid Lactic Acid F/U @ 2Hr Lactic Acid F/U @ 4Hr Ammonia B-Natriuretic Peptide Total Protein Albumin Valproic Acid IgE 05/23/22 05/24/22 05/24/22 19:59 09:56 12:08 WBC Hgb Hct MCH MCHC RDW Neut % (Auto) Lymph % (Auto) [place] % (Auto) Eos % (Auto) Lymph # (Auto) Absolute Neuts (auto) VBG HCO3 Potassium Chloride Carbon Dioxide Anion Gap BUN POC Glucose 125 H 218 H Random Glucose 131 H Fasting Glucose Lactic Acid Lactic Acid F/U @ 2Hr Lactic Acid F/U @ 4Hr Ammonia B-Natriuretic Peptide Total Protein Albumin Valproic Acid IgE 05/24/22 05/24/22 05/25/22 15:34 19:39 07:04 WBC Hgb Hct MCH MCHC RDW Neut % (Auto) Lymph % (Auto) [place] % (Auto) Eos % (Auto) Lymph # (Auto) Absolute Neuts (auto) VBG HCO3 Potassium Chloride Carbon Dioxide Anion Gap BUN POC Glucose 155 H 160 H 143 H Random Glucose Fasting Glucose Lactic Acid Lactic Acid F/U @ 2Hr Lactic Acid F/U @ 4Hr Ammonia B-Natriuretic Peptide Total Protein Albumin Valproic Acid IgE 05/25/22 05/26/22 05/26/22 16:19 15:28 19:07 WBC Hgb Hct MCH MCHC RDW Neut % (Auto) Lymph % (Auto) [place] % (Auto) Eos % (Auto) Lymph # (Auto) Absolute Neuts (auto) VBG HCO3 Potassium Chloride Carbon Dioxide Anion Gap BUN POC Glucose 219 H 183 H 288 H Random Glucose Fasting Glucose Lactic Acid Lactic Acid F/U @ 2Hr Lactic Acid F/U @ 4Hr Ammonia B-Natriuretic Peptide Total Protein Albumin Valproic Acid IgE 05/27/22 05/27/22 05/28/22 15:28 21:40 08:30 WBC Hgb Hct MCH MCHC RDW Neut % (Auto) Lymph % (Auto) [place] % (Auto) Eos % (Auto) Lymph # (Auto) Absolute Neuts (auto) VBG HCO3 Potassium Chloride Carbon Dioxide Anion Gap BUN POC Glucose 199 H 205 H 137 H Random Glucose Fasting Glucose Lactic Acid Lactic Acid F/U @ 2Hr Lactic Acid F/U @ 4Hr Ammonia B-Natriuretic Peptide Total Protein Albumin Valproic Acid IgE 05/28/22 05/28/22 05/29/22 16:17 19:26 11:05 WBC Hgb Hct MCH MCHC RDW Neut % (Auto) Lymph % (Auto) [place] % (Auto) Eos % (Auto) Lymph # (Auto) Absolute Neuts (auto) VBG HCO3 Potassium Chloride Carbon Dioxide Anion Gap BUN POC Glucose 129 H 184 H 129 H Random Glucose Fasting Glucose Lactic Acid Lactic Acid F/U @ 2Hr Lactic Acid F/U @ 4Hr Ammonia B-Natriuretic Peptide Total Protein Albumin Valproic Acid IgE 05/29/22 05/29/22 05/30/22 16:25 19:47 16:18 WBC Hgb Hct MCH MCHC RDW Neut % (Auto) Lymph % (Auto) [place] % (Auto) Eos % (Auto) Lymph # (Auto) Absolute Neuts (auto) VBG HCO3 Potassium Chloride Carbon Dioxide Anion Gap BUN POC Glucose 174 H 161 H 226 H Random Glucose Fasting Glucose Lactic Acid Lactic Acid F/U @ 2Hr Lactic Acid F/U @ 4Hr Ammonia B-Natriuretic Peptide Total Protein Albumin Valproic Acid IgE 05/30/22 19:48 WBC Hgb Hct MCH MCHC RDW Neut % (Auto) Lymph % (Auto) [place] % (Auto) Eos % (Auto) Lymph # (Auto) Absolute Neuts (auto) VBG HCO3 Potassium Chloride Carbon Dioxide Anion Gap BUN POC Glucose 150 H Random Glucose Fasting Glucose Lactic Acid Lactic Acid F/U @ 2Hr Lactic Acid F/U @ 4Hr Ammonia B-Natriuretic Peptide Total Protein Albumin Valproic Acid IgE Microbiology: Microbiology 01/09/22 19:01 Blood - Venous Blood Culture - Final No growth after 5 days. 01/09/22 19:01 Blood - Venous Blood Culture - Final No growth after 5 days. Assessment and Plan (1) Schizo affective schizophrenia: Status: Acute (2) Pulmonary hypertension: Status: Acute (3) Dyspnea on exertion: Status: Acute (4) Bronchial asthma: Status: Acute Plan Pulmonary anderson this gentleman is doing well at this time. He denies any history of bronchial asthma but may have mild reactive airways. I do not think he needs any ongoing maintenance medication for his pulmonary issues. He can use albuterol 2 puffs Q 4-6 hours only p.r.n.. He can be evaluated the as outpatient to, with pulmonary function test, at an appropriate time. Procedures Date of Service Date of Service: 05/31/22
--- NOTE | 2022-05-31 11:25 | MHC.CM.PN ---
CM RECEIVED CALL FROM FRANKLIN AT [facility] REQUESTING CM CONTACT GUARDIAN AND LET HER KNOW PT WILL BE ADMITTED UNDER STR AND THEN BECAUSE [facility] IS OUT OF NETWORK GUARDIAN WILL NEED TO DROP [facility] AND CONVERT TO MEDICARE /MEDICAID, CM ATTEMPTED TO CONTACT PT'S GUARDIAN ANDREW AT 11:22AM AT NUMBER ON FILE AND MESSAGE LEFT W/ABOVE INFO ON GUARDIANS CONFIDENTIAL VOICEMAIL.
[2022-05-31] MEDS: Atorvastatin Calcium 40 MG TABLET PO (14:09)
[2022-05-31] MEDS: HaloperidoL 5 MG TABLET 10 MG PO (14:09)
[2022-05-31] MEDS: Divalproex Sodium ER 500 MG TAB.ER.24H PO (14:09)
[2022-05-31] MEDS: Sildenafil Citrate 20 MG TABLET PO ×2 (14:09→18:15)
[2022-05-31] MEDS: Ferrous Sulfate 324 MG TABLET.DR PO (14:09)
[2022-05-31] MEDS: Furosemide 40 MG TABLET PO (14:11)
--- NOTE | 2022-05-31 14:43 | MHC.CM.PN ---
CM RECEIVED CALL FROM YSABEL AT [facility] REQUESTING MD PROGRESS NOTES FROM 05/15-05/31 TO SUBMIT TO INSURANCE FOR AUTH IN ANTIC PT WILL BE OFFERED A BED, CM HAS FAXED REQUESTED DOCUMENTS AND RECEIVED FAX NOTIFICATION.
[2022-05-31 15:50] VITALS: BP 101/62; PULSE 75; RESP 18; TEMP 36.9; O2SAT 94
[2022-05-31 15:55] LABS: Glucose, Whole Blood 258 mg/dL (60-115)
[2022-05-31] MEDS: Insulin Lispro 100 UNIT/ML 3 ML VIAL SUBCUT (18:14)
[2022-05-31] MEDS: Divalproex Sodium ER 250 MG TAB.ER.24H PO (18:14)
[2022-05-31 19:58] LABS: Glucose, Whole Blood 193 mg/dL (60-115)
[2022-05-31] MEDS: Insulin Glargine,Hum.rec.anlog 100 UNIT/ML 10 ML VIAL 10 UNIT SUBCUT (21:01)
[2022-06-01 07:18] VITALS: BP 108/70; PULSE 68; RESP 18; TEMP 36.1; O2SAT 98
[2022-06-01 07:22] LABS: Glucose, Whole Blood 146 mg/dL (60-115)
--- NOTE | 2022-06-01 07:57 | MHC.CM.PN ---
LATE ENTRY NOTE FOR 06/01 946, ILEANA RECEIVED MESSAGE FROM YSABEL AT [facility] THAT THEY ARE OFFICIALLY OFFERING PT A BED AND YSABEL WILL BE HERE AT 10:30AM FOR A BEDSIDE VISIT, CM MET W/PT TO LET HIM KNOW HE WOULD BE HAVING A VISIT AND THAT HIS GUARDIANSHIP IS NOW PERMANENT. PASSR AND MDS TO BE COMPLETED. ELIAZAR DC EARLY NEXT WEEK VIA BLS TRANSPORT
--- NOTE | 2022-06-01 09:39 | P.PNIM_ITS ---
Subjective Subjective Date of Service: 06/01/22 Interval History: Awaiting placement, no new issues, he is very happy potential to leave hospital soon, was seen by Catarina in pulmonary follow up Review of Systems no sob no cp Physical Exam Vital Signs: Vital Signs: Last Vital Signs Temp 97 F 06/01/22 07:18 Pulse 68 06/01/22 07:18 Resp 18 06/01/22 07:18 BP 108/70 06/01/22 07:18 Pulse Ox 98 06/01/22 07:18 O2 Del Method 06/01/22 07:18 O2 Flow Rate 2 02/16/22 07:18 FiO2 94 02/13/22 15:38 BMI result Body Mass Index 21.8 Const: Other: General: AO X 3, no acute distress Resp: CTA bilateral CVS: S1,S2,RRR GI: +BS, NT, no distention Skin: No rash Neuro: motor grossly intact Psych: appropriate affect Objective Data Active Medications Acetaminophen (Acetaminophen 325 Mg Tablet) 650 mg PO Q6H PRN PRN Reason: Pain, Mild (Pain Scale 1-3) Atorvastatin Calcium (Atorvastatin Calcium 40 Mg Tablet) 40 mg PO DAILY [facility] Last Admin: 05/31/22 14:09 Dose: 40 mg Documented By: TODD Dextrose (Dextrose 50 % 25 Gm/50 Ml Syringe) 25 gm IVPUSH Q15M PRN; Protocol PRN Reason: per Hypoglycemia Standing Ord. Divalproex Sodium (Divalproex Sodium Er 250 Mg Tab.Er.24h) 250 mg PO DAILY@1700 [facility] Last Admin: 05/31/22 18:14 Dose: 250 mg Documented By: KAYLAN Divalproex Sodium (Divalproex Sodium Er 500 Mg Tab.Er.24h) 500 mg PO DAILY [facility] Last Admin: 05/31/22 14:09 Dose: 500 mg Documented By: TODD Ferrous Sulfate (Ferrous Sulfate 324 Mg Tablet.Dr) 324 mg PO BID [facility] Last Admin: 05/31/22 21:04 Dose: Not Given Documented By: ARRON Non-Admin Reason: Patient Refused Fluticasone Propionate (Fluticasone Propionate Nasal 16 Gm [place]) 1 spray NOSTRIL-B BID [facility] Last Admin: 06/01/22 08:05 Dose: Not Given Documented By: TODD Non-Admin Reason: Patient Refused Furosemide (Furosemide 40 Mg Tablet) 40 mg PO DAILY [facility]; Protocol Last Admin: 05/31/22 14:11 Dose: 40 mg Documented By: TODD Glucose (Glucose Gel 15 Gm Gel..Gram.) 15 gm PO Q15M PRN; Protocol PRN Reason: per Hypoglycemia Standing Ord. Haloperidol (Haloperidol 5 Mg Tablet) 10 mg PO BID [facility] Last Admin: 05/31/22 21:04 Dose: Not Given Documented By: ARRON Non-Admin Reason: Patient Refused Insulin Glargine (Insulin Glargine,Hum.Rec.Anlog 100 Unit/Ml 10 Ml Vial) 10 unit SUBCUT BEDTIME [facility] Last Admin: 05/31/22 21:01 Dose: 10 unit Documented By: ARRON Insulin Human Lispro (Insulin Lispro 100 Unit/Ml 3 Ml Vial) 0 unit SUBCUT QIDACHS [facility]; Protocol Last Admin: 06/01/22 08:04 Dose: Not Given Documented By: TODD Non-Admin Reason: No Insulin Coverage Melatonin (Melatonin 3 Mg Tablet) 6 mg PO BEDTIME PRN PRN Reason: Insomnia Last Admin: 05/06/22 20:12 Dose: 6 mg Documented By: CASTILScooby Neomycin/Polymyxin/Hydrocortisone (Neomycin/Polymyxin/Hc Otic Melanie 10 Ml Drpbtl) 3 drop EAR-RIGHT QID [facility] Last Admin: 06/01/22 08:05 Dose: Not Given Documented By: TODD Non-Admin Reason: no longer needs Olanzapine (Olanzapine Odt 10 Mg Tab.Rapdis) 5 mg TRANSLINGU BID PRN PRN Reason: agitation, psychosis Last Admin: 03/15/22 19:48 Dose: 5 mg Documented By: GENIE Omeprazole (Omeprazole 20 Mg Capsule.Dr) 20 mg PO DAILY@0630 [facility] Last Admin: 06/01/22 06:16 Dose: Not Given Documented By: ARRON Non-Admin Reason: Patient Refused Senna (Sennosides 8.6 Mg Tablet) 17.2 mg PO BEDTIME PRN PRN Reason: Constipation Sildenafil Citrate (Sildenafil Citrate 20 Mg Tablet) 20 mg PO TID [facility] Last Admin: 05/31/22 18:15 Dose: 20 mg Documented By: KAYLAN Sitagliptin Phosphate (Sitagliptin Phosphate 100 Mg Tablet) 100 mg PO DAILY [facility] Last Admin: 05/10/22 09:04 Dose: Not Given Documented By: MANSOOR Non-Admin Reason: Patient Refused Labs CBC & Chem 7: 04/23/22 07:52 05/24/22 09:56 Labs: Laboratory Results - last 24 hr 05/31/22 05/31/22 06/01/22 15:34 19:36 07:18 POC Glucose 258 H 193 H 146 H Assessment and Plan (1) Pulmonary hypertension: Status: Acute Plan 61-year-old male with a past medical history of schizophrenia, CHF, asthma/COPD, diabetes, hyperlipidemia presented from the halfway with a chief complaint of acute hypoxia. Noted to have following conditions Clinically stable, no new issue, continue care and dc when placement available No further episodes of elopement, continue close observation, Camera in room Acute hypoxic respiratory failure on presentation suspected d/t COPD/asthma/CHF. Resolved. Acute asthma/COPD, chronic intermittent No acute symptoms, continue bronchodilator, Patient has no formal diagnosis.? Patient is supposed to be following up with pulmonology as outpatient.? He? had similar presentation in December 2021. Generally doing well. Seen in f/u by waste removalist on 05/31 with the following remark Pulmonary anderson this gentleman is doing well at this time. He denies any history of bronchial asthma but may have mild reactive airways. I do not think he needs any ongoing maintenance medication for his pulmonary issues. He can use albuterol 2 puffs Q 4-6 hours only p.r.n.. He can be evaluated the as outpatient to, with pulmonary function test, at an appropriate time. routine CXR today Pulmonary HTN Asymptomatic,? continue Viagra, outpatient follow up Heart failure with preserved ejection fraction EF 55 to 60,no acute exacerbation,seems euvolemic - continue adjusted oral Lasix 40 daily Diabetes/hyperglycemia blood sugars? in acceptable range continue lantus,? SSI, metformin and Sitagliptin schizoaffective disorder Continue home Depakote, haloperidol psych reeval noted -ammnonia seems fine , renal function/electrolytes seems fine. DVT prophylaxis:? Lovenox Code status: Full code.? Confirmed with the patient's guardian [employer] [employer] proxy invoked. Lacks capacity for medical decision, awaiting permanent placement. out of bed,ambulate with supervision. Need for inpatient : awaiting ,placement Quality Stroke Does the patient have a stroke diagnosis?: No VTE Prior VTE?: No VTE Risk Level:: Medical - moderate - high VTE Device Contraindication: Treatment Not Indicated VTE Drug Contraindication: N/A - Med Ordered
--- NOTE | 2022-06-01 10:56 | MHC.CM.PN ---
ILEANA CONTACTED YSABEL AT [facility], YSABEL REPORTS THAT THE MESSAGE SHE RELAYED WAS THAT SHE WAS COMING IN TO WORK AT 10:30AM WHICH IS LATE AND THAT SHE DID NOT HAVE PLANS TO COME IN FOR BEDSIDE JUST THAT SHE WAS OFFICIALLY OFFERING PT A BED. ILEANA CONTACTED CIRA AT [facility] WHO REPORTs CM SHOULD SUBMIT TO BOTH [facility]/DDS, AND REQUESTED CM EMAIL TO [email or web address]
[2022-06-01] MEDS: Atorvastatin Calcium 40 MG TABLET PO (11:16)
[2022-06-01] MEDS: Divalproex Sodium ER 500 MG TAB.ER.24H PO (11:16)
[2022-06-01] MEDS: Sildenafil Citrate 20 MG TABLET PO ×3 (11:16→20:41)
[2022-06-01] MEDS: Furosemide 40 MG TABLET PO (11:16)
[2022-06-01] MEDS: Ferrous Sulfate 324 MG TABLET.DR PO ×2 (11:16→20:40)
[2022-06-01] MEDS: HaloperidoL 5 MG TABLET 10 MG PO ×2 (11:16→20:40)
[2022-06-01 11:19] LABS: Glucose, Whole Blood 159 mg/dL (60-115)
--- NOTE | 2022-06-01 13:52 | MHC.CLN ---
F/U DIET=DIABETIC 2000 KCALS, CARDIAC, 1800 ML FLUID RESTRICTION. INTAKE AT MEALS VARIABLE, WITH MOST 50-100%. PATIENT REFUSING SKIN ASSESSMENT. NO ADDITIONAL NUTRITION INTERVENTIONS AT THIS TIME. RD TO FOLLOW WEEKLY.
--- NOTE | 2022-06-01 14:33 | MHC.CM.PN ---
CM RECEIVED CALL BACK FROM [facility] W/DDS/PASRR OFFICE, [facility] LOOKED UP PT IN HER SYSTEM HOWEVER PT NOT ON FILE W/DDS AND [facility] INSTRUCTED CM TO SEND PASRR TO DM/PSRR OFFICE ONLY, ILEANA CONTACTED [facility]/APSR[facility] OFFICE AND TO CONFIRM RECEIPT OF PASRR HOWEVER THEY DID NOT RECEIVE AND [facility] SENT CM AN EMAIL AND ILEANA SENT PAS[facility] IN RESPONSE HOWEVER [facility] REPORTS THEY DID NOT RECEIVE THAT EITHER HOWEVER THEIR FAX IS UP AND RUNNING AGAIN SO SHE REQUESTED IT BE FAXED TO [phone].
[2022-06-01 15:37] VITALS: BP 102/60; PULSE 74; RESP 18; TEMP 36.7; O2SAT 94
--- NOTE | 2022-06-01 15:52 | MHC.CM.PN ---
EMR REVIEWED, PT MEDICALLY CLEARED FOR D/C HOWEVER D/T PT'S SCHIZOPHRENIA, MULTIPLE ELOPEMENTS FROM LONG-TERM AND UNABLE TO CARE FOR SELF AND MANAGE MEDICAL ISSUES PT IS IN NEED OF MACHINE STRIPER CARE PLACEMENT. PER [facility] [place] YSABEL STARK PT HAS BEEN OFFERED A BED AND ANTICIPATE HE WILL D/C Saturday06/05/2022. CM WILL CON'T TO FOLLOW D/C NEEDS.
[2022-06-01 15:54] LABS: Glucose, Whole Blood 180 mg/dL (60-115)
[2022-06-01 19:49] LABS: Glucose, Whole Blood 147 mg/dL (60-115)
[2022-06-01] MEDS: Insulin Glargine,Hum.rec.anlog 100 UNIT/ML 10 ML VIAL 10 UNIT SUBCUT (20:41)
[2022-06-02 08:39] VITALS: BP 102/70
--- NOTE | 2022-06-02 09:24 | HO.PM.IMPN ---
Subjective Subjective Date of Service: 06/02/22 Interval History: Awaiting placement, potentially next week Review of Systems no sob no cp Physical Exam Vital Signs: Vital Signs: Last Vital Signs Temp 98.0 F 06/01/22 15:37 Pulse 74 06/01/22 15:37 Resp 18 06/01/22 15:37 BP 102/70 06/02/22 08:39 Pulse Ox 94 06/01/22 15:37 O2 Del Method 06/01/22 15:37 O2 Flow Rate 2 02/16/22 07:18 FiO2 94 02/13/22 15:38 BMI result Body Mass Index 21.8 Const: Other: General: AO X 3, no acute distress Resp: CTA bilateral CVS: S1,S2,RRR GI: +BS, NT, no distention Skin: No rash Neuro: motor grossly intact Psych: appropriate affect Objective Data Active Medications Acetaminophen (Acetaminophen 325 Mg Tablet) 650 mg PO Q6H PRN PRN Reason: Pain, Mild (Pain Scale 1-3) Atorvastatin Calcium (Atorvastatin Calcium 40 Mg Tablet) 40 mg PO DAILY [facility] Last Admin: 06/02/22 08:47 Dose: Not Given Documented By: KEON Non-Admin Reason: Patient Refused Dextrose (Dextrose 50 % 25 Gm/50 Ml Syringe) 25 gm IVPUSH Q15M PRN; Protocol PRN Reason: per Hypoglycemia Standing Ord. Divalproex Sodium (Divalproex Sodium Er 250 Mg Tab.Er.24h) 250 mg PO DAILY@1700 [facility] Last Admin: 06/01/22 15:57 Dose: Not Given Documented By: DALILA Non-Admin Reason: Patient Refused Divalproex Sodium (Divalproex Sodium Er 500 Mg Tab.Er.24h) 500 mg PO DAILY [facility] Last Admin: 06/02/22 08:47 Dose: Not Given Documented By: KEON Non-Admin Reason: Patient Refused Ferrous Sulfate (Ferrous Sulfate 324 Mg Tablet.) 324 mg PO BID [facility] Last Admin: 06/02/22 08:47 Dose: Not Given Documented By: KEON Non-Admin Reason: Patient Refused Fluticasone Propionate (Fluticasone Propionate Nasal 16 Gm [place]) 1 spray NOSTRIL-B BID [facility] Last Admin: 06/02/22 08:47 Dose: Not Given Documented By: KEON Non-Admin Reason: Patient Refused Furosemide (Furosemide 40 Mg Tablet) 40 mg PO DAILY [facility]; Protocol Last Admin: 06/02/22 08:47 Dose: Not Given Documented By: KEON Non-Admin Reason: Patient Refused Glucose (Glucose Gel 15 Gm Gel..Gram.) 15 gm PO Q15M PRN; Protocol PRN Reason: per Hypoglycemia Standing Ord. Haloperidol (Haloperidol 5 Mg Tablet) 10 mg PO BID [facility] Last Admin: 06/02/22 08:47 Dose: Not Given Documented By: KEON Non-Admin Reason: Patient Refused Insulin Glargine (Insulin Glargine,Hum.Rec.Anlog 100 Unit/Ml 10 Ml Vial) 10 unit SUBCUT BEDTIME [facility] Last Admin: 06/01/22 20:41 Dose: 10 unit Documented By: SHALA Insulin Human Lispro (Insulin Lispro 100 Unit/Ml 3 Ml Vial) 0 unit SUBCUT QIDACHS [facility]; Protocol Last Admin: 06/02/22 08:46 Dose: Not Given Documented By: KEON Non-Admin Reason: Patient Refused Melatonin (Melatonin 3 Mg Tablet) 6 mg PO BEDTIME PRN PRN Reason: Insomnia Last Admin: 05/06/22 20:12 Dose: 6 mg Documented By: SHARONILScooby Neomycin/Polymyxin/Hydrocortisone (Neomycin/Polymyxin/Hc Otic Melanie 10 Ml Drpbtl) 3 drop EAR-RIGHT QID [facility] Last Admin: 06/02/22 08:47 Dose: Not Given Documented By: KEON Non-Admin Reason: Patient Refused Olanzapine (Olanzapine Odt 10 Mg Tab.Rapdis) 5 mg TRANSLINGU BID PRN PRN Reason: agitation, psychosis Last Admin: 03/15/22 19:48 Dose: 5 mg Documented By: GENIE Omeprazole (Omeprazole 20 Mg Capsule.Dr) 20 mg PO DAILY@0630 [facility] Last Admin: 06/02/22 05:34 Dose: Not Given Documented By: SHALA Non-Admin Reason: Patient Refused Senna (Sennosides 8.6 Mg Tablet) 17.2 mg PO BEDTIME PRN PRN Reason: Constipation Sildenafil Citrate (Sildenafil Citrate 20 Mg Tablet) 20 mg PO TID [facility] Last Admin: 06/02/22 08:47 Dose: Not Given Documented By: KEON Non-Admin Reason: Patient Refused Sitagliptin Phosphate (Sitagliptin Phosphate 100 Mg Tablet) 100 mg PO DAILY [facility] Last Admin: 05/10/22 09:04 Dose: Not Given Documented By: MANSOOR Non-Admin Reason: Patient Refused Labs CBC & Chem 7: 04/23/22 07:52 05/24/22 09:56 Labs: Laboratory Results - last 24 hr 06/01/22 06/01/22 06/01/22 11:16 15:39 19:39 POC Glucose 159 H 180 H 147 H Assessment and Plan (1) Pulmonary hypertension: Status: Acute Plan A 61-year-old male with a past medical history of schizophrenia, CHF, asthma/COPD, diabetes, and hyperlipidemia presented from the alf with a chief complaint of acute hypoxia. Noted to have the following conditions Clinically stable, no new issue; continue care and dc when placement available. No further episodes of an elopement; continue close observation, Camera in the room. Acute hypoxic respiratory failure on presentation suspected d/t COPD/asthma/CHF. Resolved. Acute asthma/COPD, chronic intermittent No acute symptoms; continue bronchodilator; the patient has no formal diagnosis.? The patient is supposed to be following up with pulmonology as an outpatient.? He had a similar presentation in December 2021. Generally doing well. Seen in f/u by paid search specialist on 05/31 with the following remark Pulmonary-anderson, this gentleman is doing well at this time. He denies any history of bronchial asthma but may have mild reactive airways. I do not think he needs any ongoing maintenance medication for his pulmonary issues. He can use albuterol 2 puffs Q 4-6 hours only p.r.n.. He can be evaluated as an outpatient, with pulmonary function test, at an appropriate time. routine CXR today Pulmonary HTN Asymptomatic,? continue Viagra, outpatient follow-up. Heart failure with a preserved ejection fraction EF 55 to 60, no acute exacerbation, seems euvolemic - continue adjusted oral Lasix 40 daily. Diabetes/hyperglycemia blood sugars? in an acceptable range continue lantus,? SSI, metformin and Sitagliptin schizoaffective disorder Continue home Depakote, haloperidol psych reveal noted -ammonia seems fine, renal function/electrolytes seem fine. DVT prophylaxis:? Lovenox Code status: Full code.? Confirmed with the patient's guardian [employer] [employer] proxy invoked. Lacks capacity for medical decision, awaiting permanent placement. out of bed, ambulate with supervision. Need for inpatient: possible placement early next week Quality Stroke Does the patient have a stroke diagnosis?: No VTE Prior VTE?: No VTE Risk Level:: Medical - moderate - high VTE Device Contraindication: Treatment Not Indicated VTE Drug Contraindication: N/A - Med Ordered
[2022-06-02 11:54] LABS: Glucose, Whole Blood 165 mg/dL (60-115)
[2022-06-02] MEDS: Sildenafil Citrate 20 MG TABLET PO (15:15)
[2022-06-02 16:00] VITALS: BP 105/67; PULSE 76; RESP 18; TEMP 36.4; O2SAT 95
[2022-06-02] MEDS: Divalproex Sodium ER 250 MG TAB.ER.24H PO (17:16)
[2022-06-03 08:00] VITALS: BP 114/70; PULSE 67; RESP 18; TEMP 36.2; O2SAT 95
--- NOTE | 2022-06-03 08:21 | P.PNIM_ITS ---
Subjective Subjective Date of Service: 06/03/22 Interval History: Awaiting placement, no new issues potentially next week Review of Systems no sob no cp Physical Exam Vital Signs: Vital Signs: Last Vital Signs Temp 97.6 F 06/02/22 16:00 Pulse 76 06/02/22 16:00 Resp 18 06/02/22 16:00 BP 105/67 06/02/22 16:00 Pulse Ox 95 06/02/22 16:00 O2 Del Method 06/02/22 16:00 O2 Flow Rate 2 02/16/22 07:18 FiO2 94 02/13/22 15:38 BMI result Body Mass Index 21.8 Const: Other: General: AO X 3, no acute distress Resp: CTA bilateral CVS: S1,S2,RRR GI: +BS, NT, no distention Skin: No rash Neuro: motor grossly intact Psych: appropriate affect Objective Data Active Medications Acetaminophen (Acetaminophen 325 Mg Tablet) 650 mg PO Q6H PRN PRN Reason: Pain, Mild (Pain Scale 1-3) Atorvastatin Calcium (Atorvastatin Calcium 40 Mg Tablet) 40 mg PO DAILY [facility] Last Admin: 06/02/22 08:47 Dose: Not Given Documented By: KEON Non-Admin Reason: Patient Refused Dextrose (Dextrose 50 % 25 Gm/50 Ml Syringe) 25 gm IVPUSH Q15M PRN; Protocol PRN Reason: per Hypoglycemia Standing Ord. Divalproex Sodium (Divalproex Sodium Er 250 Mg Tab.Er.24h) 250 mg PO DAILY@1700 [facility] Last Admin: 06/02/22 17:16 Dose: 250 mg Documented By: KEON Divalproex Sodium (Divalproex Sodium Er 500 Mg Tab.Er.24h) 500 mg PO DAILY [facility] Last Admin: 06/02/22 08:47 Dose: Not Given Documented By: KEON Non-Admin Reason: Patient Refused Ferrous Sulfate (Ferrous Sulfate 324 Mg Tablet.) 324 mg PO BID [facility] Last Admin: 06/02/22 20:13 Dose: Not Given Documented By: ESTELLE Non-Admin Reason: Patient Refused Fluticasone Propionate (Fluticasone Propionate Nasal 16 Gm [place]) 1 spray NOSTRIL-B BID [facility] Last Admin: 06/02/22 20:13 Dose: Not Given Documented By: ESTELLE Non-Admin Reason: Patient Refused Furosemide (Furosemide 40 Mg Tablet) 40 mg PO DAILY [facility]; Protocol Last Admin: 06/02/22 08:47 Dose: Not Given Documented By: KEON Non-Admin Reason: Patient Refused Glucose (Glucose Gel 15 Gm Gel..Gram.) 15 gm PO Q15M PRN; Protocol PRN Reason: per Hypoglycemia Standing Ord. Haloperidol (Haloperidol 5 Mg Tablet) 10 mg PO BID [facility] Last Admin: 06/02/22 20:13 Dose: Not Given Documented By: ESTELLE Non-Admin Reason: Patient Refused Insulin Glargine (Insulin Glargine,Hum.Rec.Anlog 100 Unit/Ml 10 Ml Vial) 10 unit SUBCUT BEDTIME [facility] Last Admin: 06/02/22 20:13 Dose: Not Given Documented By: ESTELLE Non-Admin Reason: Patient Refused Insulin Human Lispro (Insulin Lispro 100 Unit/Ml 3 Ml Vial) 0 unit SUBCUT QIDACHS [facility]; Protocol Last Admin: 06/02/22 20:14 Dose: Not Given Documented By: ESTELLE Non-Admin Reason: Patient Refused Melatonin (Melatonin 3 Mg Tablet) 6 mg PO BEDTIME PRN PRN Reason: Insomnia Last Admin: 05/06/22 20:12 Dose: 6 mg Documented By: CASTILM Neomycin/Polymyxin/Hydrocortisone (Neomycin/Polymyxin/Hc Otic Melanie 10 Ml Drpbtl) 3 drop EAR-RIGHT QID [facility] Last Admin: 06/02/22 20:14 Dose: Not Given Documented By: ESTELLE Non-Admin Reason: Patient Refused Olanzapine (Olanzapine Odt 10 Mg Tab.Rapdis) 5 mg TRANSLINGU BID PRN PRN Reason: agitation, psychosis Last Admin: 03/15/22 19:48 Dose: 5 mg Documented By: GENIE Omeprazole (Omeprazole 20 Mg Capsule.Dr) 20 mg PO DAILY@0630 [facility] Last Admin: 06/03/22 05:38 Dose: Not Given Documented By: ESTELLE Non-Admin Reason: Patient Refused Senna (Sennosides 8.6 Mg Tablet) 17.2 mg PO BEDTIME PRN PRN Reason: Constipation Sildenafil Citrate (Sildenafil Citrate 20 Mg Tablet) 20 mg PO TID [facility] Last Admin: 06/02/22 20:14 Dose: Not Given Documented By: ESTELLE Non-Admin Reason: Patient Refused Sitagliptin Phosphate (Sitagliptin Phosphate 100 Mg Tablet) 100 mg PO DAILY [facility] Last Admin: 05/10/22 09:04 Dose: Not Given Documented By: MANSOOR Non-Admin Reason: Patient Refused Labs CBC & Chem 7: 04/23/22 07:52 05/24/22 09:56 Labs: Laboratory Results - last 24 hr 06/02/22 11:49 POC Glucose 165 H Assessment and Plan (1) Pulmonary hypertension: Status: Acute Plan A 61-year-old male with a past medical history of schizophrenia, CHF, asthma/COPD, diabetes, and hyperlipidemia [facility] with a chief complaint of acute hypoxia. Noted to have the following conditions Clinically stable, no new issue; continue care and dc when placement available. No further episodes of an elopement; continue close observation, Camera in the room. Acute hypoxic respiratory failure on presentation suspected d/t COPD/asthma/CHF. Resolved. Acute asthma/COPD, chronic intermittent No acute symptoms; continue bronchodilator; the patient has no formal diagnosis.? The patient is supposed to be following up with pulmonology as an outpatient.? He had a similar presentation in December 2021. Generally doing well. Seen in f/u by brush cutter on 05/31 with the following remark Pulmonary-anderson, this gentleman is doing well at this time. He denies any history of bronchial asthma but may have mild reactive airways. I do not think he needs any ongoing maintenance medication for his pulmonary issues. He can use albuterol 2 puffs Q 4-6 hours only p.r.n.. He can be evaluated as an outpatient, with pulmonary function test, at an appropriate time. routine CXR today Pulmonary HTN Asymptomatic,? continue Viagra, outpatient follow-up. Heart failure with a preserved ejection fraction EF 55 to 60, no acute exacerbation, seems euvolemic - continue adjusted oral Lasix 40 daily. Diabetes/hyperglycemia blood sugars? in an acceptable range continue lantus,? SSI, metformin and Sitagliptin schizoaffective disorder Continue home Depakote, haloperidol psych reveal noted -ammonia seems fine, renal function/electrolytes seem fine. DVT prophylaxis:? Lovenox Code status: Full code.? Confirmed with the patient's guardian [facility] proxy invoked. Lacks capacity for medical decision, awaiting permanent placement. out of bed, ambulate with supervision. Need for inpatient: possible placement early next week Quality Stroke Does the patient have a stroke diagnosis?: No VTE Prior VTE?: No VTE Risk Level:: Medical - moderate - high VTE Device Contraindication: Treatment Not Indicated VTE Drug Contraindication: N/A - Med Ordered
[2022-06-03] MEDS: HaloperidoL 5 MG TABLET 10 MG PO ×2 (09:12→20:27)
[2022-06-03 11:16] LABS: Glucose, Whole Blood 173 mg/dL (60-115)
[2022-06-03] MEDS: Divalproex Sodium ER 250 MG TAB.ER.24H PO (16:43)
[2022-06-03] MEDS: Sildenafil Citrate 20 MG TABLET PO ×2 (16:44→20:33)
[2022-06-03 17:32] LABS: Glucose, Whole Blood 176 mg/dL (60-115)
[2022-06-03 20:20] LABS: Glucose, Whole Blood 135 mg/dL (60-115)
[2022-06-03] MEDS: Insulin Glargine,Hum.rec.anlog 100 UNIT/ML 10 ML VIAL 10 UNIT SUBCUT (20:26)
[2022-06-03] MEDS: Ferrous Sulfate 324 MG TABLET.DR PO (20:27)
--- NOTE | 2022-06-04 08:35 | MHC.CM.PN ---
CM RECEIVED [facility] DETERMINATION LETTER NOTING PT QUALIFIES FOR [facility], DOCUMENT FAXED TO YSABEL AT [facility] AT 8:35AM [phone]. D/C PLAN CONT'S TO BE D/C TOMORROW 06/06 AT 0930AM TO [facility] W/[facility] FOR BLS TRANSPORT
--- NOTE | 2022-06-04 10:33 | P.PNIM_ITS ---
Subjective Subjective Date of Service: 06/04/22 Interval History: Awaiting placement, no new issues, if all go well may be discharged tomorrow Review of Systems no sob no cp Physical Exam Vital Signs: Vital Signs: Last Vital Signs Temp 97.2 F 06/03/22 08:00 Pulse 67 06/03/22 08:00 Resp 18 06/03/22 08:00 BP 114/70 06/03/22 08:00 Pulse Ox 95 06/03/22 08:00 O2 Del Method 06/03/22 08:00 O2 Flow Rate 2 02/16/22 07:18 FiO2 94 02/13/22 15:38 BMI result Body Mass Index 21.8 Const: Other: General: AO X 3, no acute distress Resp: CTA bilateral CVS: S1,S2,RRR GI: +BS, NT, no distention Skin: No rash Neuro: motor grossly intact Psych: appropriate affect Objective Data Active Medications Acetaminophen (Acetaminophen 325 Mg Tablet) 650 mg PO Q6H PRN PRN Reason: Pain, Mild (Pain Scale 1-3) Atorvastatin Calcium (Atorvastatin Calcium 40 Mg Tablet) 40 mg PO DAILY [facility] Last Admin: 06/03/22 09:14 Dose: Not Given Documented By: AITF Non-Admin Reason: Patient Refused Dextrose (Dextrose 50 % 25 Gm/50 Ml Syringe) 25 gm IVPUSH Q15M PRN; Protocol PRN Reason: per Hypoglycemia Standing Ord. Divalproex Sodium (Divalproex Sodium Er 250 Mg Tab.Er.24h) 250 mg PO DAILY@1700 [facility] Last Admin: 06/03/22 16:43 Dose: 250 mg Documented By: ATIF Divalproex Sodium (Divalproex Sodium Er 500 Mg Tab.Er.24h) 500 mg PO DAILY [facility] Last Admin: 06/03/22 09:15 Dose: Not Given Documented By: ATIF Non-Admin Reason: Patient Refused Ferrous Sulfate (Ferrous Sulfate 324 Mg Tablet.) 324 mg PO BID [facility] Last Admin: 06/03/22 20:27 Dose: 324 mg Documented By: SAVAGE Fluticasone Propionate (Fluticasone Propionate Nasal 16 Gm [place]) 1 spray NOSTRIL-B BID [facility] Last Admin: 06/03/22 20:31 Dose: Not Given Documented By: SAVAGE Non-Admin Reason: Patient Refused Furosemide (Furosemide 40 Mg Tablet) 40 mg PO DAILY [facility]; Protocol Last Admin: 06/03/22 09:15 Dose: Not Given Documented By: ATIF Non-Admin Reason: Patient Refused Glucose (Glucose Gel 15 Gm Gel..Gram.) 15 gm PO Q15M PRN; Protocol PRN Reason: per Hypoglycemia Standing Ord. Haloperidol (Haloperidol 5 Mg Tablet) 10 mg PO BID [facility] Last Admin: 06/03/22 20:27 Dose: 10 mg Documented By: SAVAGE Insulin Glargine (Insulin Glargine,Hum.Rec.Anlog 100 Unit/Ml 10 Ml Vial) 10 unit SUBCUT BEDTIME [facility] Last Admin: 06/03/22 20:26 Dose: 10 unit Documented By: SAVAGE Insulin Human Lispro (Insulin Lispro 100 Unit/Ml 3 Ml Vial) 0 unit SUBCUT QIDACHS [facility]; Protocol Last Admin: 06/04/22 09:19 Dose: Not Given Documented By: ANAT Non-Admin Reason: Patient Refused Melatonin (Melatonin 3 Mg Tablet) 6 mg PO BEDTIME PRN PRN Reason: Insomnia Last Admin: 05/06/22 20:12 Dose: 6 mg Documented By: CASTILScooby Neomycin/Polymyxin/Hydrocortisone (Neomycin/Polymyxin/Hc Otic Melanie 10 Ml Drpbtl) 3 drop EAR-RIGHT QID [facility] Last Admin: 06/03/22 20:31 Dose: Not Given Documented By: SAVAGE Non-Admin Reason: Patient Refused Olanzapine (Olanzapine Odt 10 Mg Tab.Rapdis) 5 mg TRANSLINGU BID PRN PRN Reason: agitation, psychosis Last Admin: 03/15/22 19:48 Dose: 5 mg Documented By: GENIE Omeprazole (Omeprazole 20 Mg Capsule.Dr) 20 mg PO DAILY@0630 [facility] Last Admin: 06/04/22 06:14 Dose: Not Given Documented By: SAVAGE Non-Admin Reason: Patient Refused Senna (Sennosides 8.6 Mg Tablet) 17.2 mg PO BEDTIME PRN PRN Reason: Constipation Sildenafil Citrate (Sildenafil Citrate 20 Mg Tablet) 20 mg PO TID [facility] Last Admin: 06/03/22 20:33 Dose: 20 mg Documented By: SAVAGE Sitagliptin Phosphate (Sitagliptin Phosphate 100 Mg Tablet) 100 mg PO DAILY [facility] Last Admin: 05/10/22 09:04 Dose: Not Given Documented By: MANSOOR Non-Admin Reason: Patient Refused Labs CBC & Chem 7: 04/23/22 07:52 05/24/22 09:56 Labs: Laboratory Results - last 24 hr 06/03/22 06/03/22 06/03/22 11:01 17:23 20:16 POC Glucose 173 H 176 H 135 H Assessment and Plan (1) Pulmonary hypertension: Status: Acute Plan A 61-year-old male with a past medical history of schizophrenia, CHF, asthma/COPD, diabetes, and hyperlipidemia presented from the long term with a chief complaint of acute hypoxia. Noted to have the following conditions Clinically stable, no new issue; continue care and dc when placement available. No further episodes of an elopement; continue close observation, Camera in the room. Acute hypoxic respiratory failure on presentation suspected d/t COPD/asthma/CHF. Resolved. Acute asthma/COPD, chronic intermittent No acute symptoms; continue bronchodilator; the patient has no formal diagn osis.? The patient is supposed to be following up with pulmonology as an outpatient.? He had a similar presentation in December 2021. Generally doing well. Seen in f/u by projection engineer on 05/31 with the following remark Pulmonary-anderson, this gentleman is doing well at this time. He denies any history of bronchial asthma but may have mild reactive airways. I do not think he needs any ongoing maintenance medication for his pulmonary issues. He can use albuterol 2 puffs Q 4-6 hours only p.r.n.. He can be evaluated as an outpatient, with pulmonary function test, at an appropriate time. Pulmonary HTN Asymptomatic,? continue Viagra, outpatient follow-up. Heart failure with a preserved ejection fraction EF 55 to 60, no acute exacerbation, seems euvolemic - continue adjusted oral Lasix 40 daily. Diabetes/hyperglycemia blood sugars? in an acceptable range continue lantus,? SSI, metformin and Sitagliptin schizoaffective disorder Continue home Depakote, haloperidol psych reveal noted -ammonia seems fine, renal function/electrolytes seem fine. DVT prophylaxis:? Lovenox Code status: Full code.? Confirmed with the patient's guardian [facility] proxy invoked. Lacks capacity for medical decision, awaiting permanent placement. out of bed, ambulate with supervision. Need for inpatient: possible placement early next week Quality Stroke Does the patient have a stroke diagnosis?: No VTE Prior VTE?: No VTE Risk Level:: Medical - moderate - high VTE Device Contraindication: Treatment Not Indicated VTE Drug Contraindication: N/A - Med Ordered
[2022-06-04] MEDS: HaloperidoL 5 MG TABLET 10 MG PO ×2 (10:45→19:59)
[2022-06-04] MEDS: Atorvastatin Calcium 40 MG TABLET PO (10:45)
[2022-06-04] MEDS: Sildenafil Citrate 20 MG TABLET PO ×3 (10:45→19:59)
[2022-06-04] MEDS: Divalproex Sodium ER 500 MG TAB.ER.24H PO (10:45)
[2022-06-04] MEDS: Ferrous Sulfate 324 MG TABLET.DR PO ×2 (10:46→19:59)
[2022-06-04] MEDS: Furosemide 40 MG TABLET PO (10:46)
[2022-06-04 16:00] VITALS: BP 116/68; PULSE 79; RESP 18; TEMP 36.6; O2SAT 95
[2022-06-04 16:33] LABS: Glucose, Whole Blood 214 mg/dL (60-115)
[2022-06-04] MEDS: Divalproex Sodium ER 250 MG TAB.ER.24H PO (16:55)
[2022-06-04] MEDS: Insulin Lispro 100 UNIT/ML 3 ML VIAL SUBCUT (16:56)
[2022-06-04 19:57] LABS: Glucose, Whole Blood 174 mg/dL (60-115)
[2022-06-04] MEDS: Insulin Glargine,Hum.rec.anlog 100 UNIT/ML 10 ML VIAL 10 UNIT SUBCUT (19:58)
[2022-06-04 23:21] VITALS: BP 112/68; PULSE 86; RESP 18; TEMP 36.7; O2SAT 96
[2022-06-05 07:26] VITALS: BP 112/67; PULSE 76; RESP 20; TEMP 36.3; O2SAT 94
[2022-06-05] MEDS: HaloperidoL 5 MG TABLET 10 MG PO (08:40)
[2022-06-05] MEDS: Ferrous Sulfate 324 MG TABLET.DR PO (08:40)
[2022-06-05] MEDS: Sildenafil Citrate 20 MG TABLET PO (08:40)
[2022-06-05] MEDS: Furosemide 40 MG TABLET PO (08:40)
[2022-06-05] MEDS: Atorvastatin Calcium 40 MG TABLET PO (08:40)
[2022-06-05] MEDS: Divalproex Sodium ER 500 MG TAB.ER.24H PO (08:40)
[2022-06-05 09:02] LABS: COVID-19 Test Negative (Negative); IDNOW Serial# 16C4AD1C
--- NOTE | 2022-06-05 09:48 | P.DS_ITS ---
DS: Providers Provider Date of Service: 06/05/22 Date of admission: 01/09/22 20:05 Primary care physician: Keya Andersen MD Consults: 01/09/22 20:05 Consult to Cardiology Routine Consulting Provider: Robin Ocampo Reason for consultation: chf Consult to Pulmonology Routine Consulting Provider: Dimitri Elmore Reason for consultation: Acute hypoxic respiratory failure 01/19/22 10:56 Consult to Psychiatry Routine Consulting Provider: Psych Covering Reason for consultation: h/o schizophrenia, behavioral issues; ?med adjustment Has provider been notified: No 05/23/22 08:12 Consult to Psychiatry Routine Consulting Provider: Psych Covering Reason for consultation: reeval Has provider been notified: No 05/30/22 11:19 Consult to Pulmonology Routine Consulting Provider: Dimitri Elmore Reason for consultation: follow up pulmonary HTN Has provider been notified: No Attending physician on discharge: [facility] DS: Diagnosis Discharge Diagnosis (1) Pulmonary hypertension: Status: Acute DS: Summary Hospital Course Hospital Course: 61-year-old male with a past medical history of hyperlipidemia, diabetes, schizophrenia, retirement resident, recent admission to the hospital for acute hypoxic respiratory failure in the setting of asthma/COPD/CHF; presented to the hospital today with a chief complaint of hypoxia at a retirement.? Patient was noted to be hypoxic to 70s consistently; complaining of shortness of breath.? Denies any cough, chest pain or palpitations.? Denies any sputum production.? Patient denies any GI symptoms.? Review of all other systems is negative except mentioned above. Hospital course: patient initially admitted for acute hypoxemic respiratory failure multifactorial possibly related to CHF/asthma: given nebs and steroids seems to be improved- seen by Pulmonary- the currently recommended to continue bronchodilator as well as today Nephro added for pulmonary hypertension patient with need further workup including pulmonary function test as well as pulmonary hypertension workup outpatient with Pulmonary. heart failure with preserved ejection fraction: Patient received diuresis with Lasix, currently on Lasix 40 daily. Diabetes anderson: Continue home regimen of metformin and sitagliptin in addition in-hospital was started on Lantus, continue sliding scale coverage as needed. Schizoaffective disorder: continue home medication including Depakote, haloperidol ,Ativan, Zyprexa accept p.r.n. also patient lacks capacity of medical decision and healthcare proxy was invoked [facility] assessment and plan coordinated in above note. Time spent 50 minute. Time Spent with Patient Time attestation: Total time spent providing and/or coordinating discharge services: Discharge coordination time: Greater than 30 minutes Quality: Safe Use of Opioids Does Pt have an Active Cancer Diagnosis on the Problem List?: No Quality: Stroke Does the patient have a stroke diagnosis?: No Physical Exam Vital Signs: Vital Signs: Last Vital Signs Temp 97.4 F 06/05/22 07:26 Pulse 76 06/05/22 07:26 Resp 20 06/05/22 07:26 BP 112/67 06/05/22 07:26 Pulse Ox 94 06/05/22 07:26 O2 Del Method 06/05/22 07:26 O2 Flow Rate 2 02/16/22 07:18 FiO2 94 02/13/22 15:38 BMI result Body Mass Index 21.8 Gen: Appears be in no acute distress HEENT:? NCAT,? Moist mucosa. Pulmonary:? Diminished breath sounds.? On supplemental oxygen.? Speaks in full sentences. CVS:? Normal S1-S2 Abdomen: BS+, Soft, Nontender Extremities:? Warm well perfused Neuro:? Alert and awake. DS: Data Data Completed and Pending Labs on day of discharge: Laboratory Results - last 24 hr 06/04/22 06/04/22 06/05/22 16:03 19:40 08:25 POC Glucose 214 H 174 H COVID-19 ([facility]) Negative COVID-19 Clin Com See Note Additional Comments Additional comments: 05/28/22: BUN 12, creatinine 0.78 wbc : 4.2, hemoglobin 12.9 hematocrit 40.7, platelets 205 fs runnin 160-170 Discharge Plan Discharge Anticipated Discharge Date/Time: 06/05/22 09:34 Patient Disposition: Xfer SNF Discharge Diagnosis: acute chf , schizo affective disorder Referrals: [facility] [Outside] - 1 Day Keya Andersen MD [Primary Care Provider] - 1 Week Jeffrey Chong MD [Physician] - 3 days (copd vs asthma) Discharge Medications: New albuterol sulfate 90 mcg/actuation HFA aerosol inhaler 2 puff inhalation 6XD PRN (Reason: shortness of breath or wheezing) Qty: 8.5 2RF sildenafil (pulm.hypertension) 20 mg Tablet 20 mg PO TID Qty: 60 0RF insulin glargine [Lantus U-100 Insulin] 100 unit/mL Solution 10 unit subcut BEDTIME Qty: 10 0RF olanzapine 10 mg Tablet,Disintegrating 5 mg translingual BID PRN (Reason: agitation, psychosis) Qty: 10 0RF insulin lispro [Humalog U-100 Insulin] 100 unit/mL Solution See Protocol subcut QIDACHS Qty: 10 0RF Protocol: Insulin Correction Scale Less than or equal to 110 ---- Give (units): 0 111 to 150 Give (units): 0 151 to 200 Give (units): 2 201 to 250 Give (units): 4 251 to 300 Give (units): 6 301 to 350 Give (units): 8 Greater than 350 Give (units): 10 Call MD if Blood Glucose > : 350 Continued furosemide [Lasix] 40 mg tablet 40 mg PO BID Qty: 60 0RF atorvastatin 40 mg tablet 1 tab PO DAILY Qty: 30 0RF metformin 500 mg tablet 1 tab PO BIDWM Qty: 30 0RF pantoprazole 40 mg tablet,delayed release (DR/EC) 1 tab PO DAILY Qty: 30 0RF fluticasone propionate 50 mcg/actuation [place],Suspension 1 spray INTRANASAL BID Qty: 1 0RF gydqcaya-vanedqipw-HH 3.5-10,000-1 mg/mL-unit/mL-% Drops,Suspension 3 drp otic (ear) right QID Qty: 10 0RF divalproex 250 mg tablet extended release 24 hr 500 mg PO DAILY Qty: 60 0RF divalproex 250 mg tablet extended release 24 hr 250 mg PO DAILY@1700 Qty: 30 0RF haloperidol 5 mg tablet 1 tab PO DAILY@1700 Qty: 30 0RF haloperidol 10 mg tablet 1 tab PO BID Qty: 60 0RF lorazepam 1 mg tablet 1 tab PO DAILY PRN (Reason: Anxiety) Qty: 7 0RF ferrous sulfate 325 mg (65 mg iron) tablet,delayed release (DR/EC) 1 tab PO BID Changed Januvia 100 mg tablet 100 mg PO DAILY Qty: 30 0RF Discontinued insulin aspart U-100 [Novolog Flexpen U-100 Insulin] 100 unit/mL (3 mL) insulin pen 0 sliding scale dose subcut BID Rx Instructions: per sliding scale Discharge Orders: Discharge Order (Routine); Ordered 06/05/22 Ordered By: Lesvia Rosen Diet: Advance to usual diet Activity on Discharge: As tolerated Stand Alone Forms: Patient Portal Discharge page Care Plan Goals: patient initially admitted for acute hypoxemic respiratory failure multifactorial possibly related to CHF/asthma: given nebs and steroids seems to be improved- seen by Pulmonary- the currently recommended to continue bronchodilator as well as today Nephro added for pulmonary hypertension patient with need further workup including pulmonary function test as well as pulmonary hypertension workup outpatient with Pulmonary. heart failure with preserved ejection fraction: Patient received diuresis with Lasix, currently on Lasix 40 daily. Diabetes anderson: Continue home regimen of metformin and sitagliptin in addition in-hospital was started on Lantus, continue sliding scale coverage as needed. Schizoaffective disorder: continue home medication including Depakote, haloperidol ,Ativan, Zyprexa accept p.r.n. also patient lacks capacity of medical decision and healthcare proxy was invoked and was subsequently going to [facility]. Health Concerns: as above. Plan of Treatment: pulm htn: started on sudenfil -pulm htn workup outpatient. Monitor BMP and electrolytes since patient is on diuretics, also monitor liver functions on depakote. Assessment: As above.
--- NOTE | 2022-06-05 10:28 | MHC.CM.PN ---
[facility], cm received call from christian Gates who is agreeable to plan and will be bringing pt new clothes and cigarettes in the next few days, [facility] providing bl[facility] transport.
== END 2022-06-05 10:36 | disposition skilled nursing facility (03) | DRG 202 ==
LOC: HO.ED 16:44 → HO.EDOVER 20:24 → HO.S3 22:07
PROVIDERS: Family Medicine; Hospitalist; Internal Medicine; Nurse Practitioner Acute Care; Physician Assistant Medical; Psychiatry & Neurology Psychiatry; Registered Nurse; Student in an Organized Health Care Education/Training Program; Admitting Provider Hospitalist; Emergency Provider Emergency Medicine; PCP Internal Medicine; Visit Provider Internal Medicine
DX: J45.21 Mild intermittent asthma with (acute) exacerbation (principal); J96.01 Acute respiratory failure with hypoxia; I50.32 Chronic diastolic (congestive) heart failure; E78.5 Hyperlipidemia, unspecified; E11.65 Type 2 diabetes mellitus with hyperglycemia; I27.20 Pulmonary hypertension, unspecified; I50.813 Acute on chronic right heart failure; F25.9 Schizoaffective disorder, unspecified; F14.10 Cocaine abuse, uncomplicated; H60.90 Unspecified otitis externa, unspecified ear; K21.9 Gastro-esophageal reflux disease without esophagitis; Z75.1 Person awaiting admission to adequate facility elsewhere; Z20.822 Contact with and (suspected) exposure to COVID-19; Z87.891 Personal history of nicotine dependence; Z79.4 Long term (current) use of insulin; Z79.51 Long term (current) use of inhaled steroids; Z79.899 Other long term (current) drug therapy
CPT/HCPCS: 36415; 71045; 71046; 71275; 80048; 80053; 80076; 80164; 80307; 81003; 82140; 82550; 82565; 82785; 82803; 82947; 83605; 83880; 84484; 85025; 85027; 85379; 85652; 87040; 87635; 93005; 93306; 99284; J1650; J1940; J2060; J2920; J2930; Q9967